=== PATIENT | female | born 2000 | race Caucasian/White ===

== ENCOUNTER 2023-03-05 21:32 | Outpatient (REF) | payer BC, OTHER, SELFPAY ==
[2023-03-13 10:09] LABS: Age Gdln ACOG Testing Note (.); IGP, rfx Aptima HPV ASCU Note (.)
== END 2023-03-05 21:33 | disposition home or self-care (01) ==
LOC: LAB 21:32
PROVIDERS: PCP Obstetrics & Gynecology; Visit Provider Obstetrics & Gynecology
DX: Z01.419 Encounter for gynecological examination (general) (routine) without abnormal findings (principal)
CPT/HCPCS: G0145

== ENCOUNTER 2024-03-25 20:11 | Outpatient (REF) | payer OTHER, BC, SELFPAY ==
[2024-03-31 17:09] LABS: Age Gdln ACOG Testing Note (.); IGP, rfx Aptima HPV ASCU Note (.)
== END 2024-03-25 20:12 | disposition home or self-care (01) ==
LOC: LAB 20:11
PROVIDERS: PCP Family Medicine; Visit Provider Obstetrics & Gynecology
DX: Z01.419 Encounter for gynecological examination (general) (routine) without abnormal findings (principal)
CPT/HCPCS: 88175

== ENCOUNTER 2024-12-01 12:01 | Outpatient (OUT) | payer BC, OTHER, SELFPAY ==
[2024-12-01 12:30] LABS: Basophils Absolute Auto 0.1 10^3/uL (0.0-0.1); Basophils Percent Auto 0.5 % (0.2-2.0); Eosinophils Absolute Auto 0.3 10^3/uL (0.0-0.7); Eosinophils Percent Auto 2.6 % (0.9-7.0); Hematocrit 42.8 % (36.0-48.0); Hemoglobin 14.8 g/dL (12.0-16.0); Immature Granulocytes Abs Auto 0.01 10^3/uL (0.00-0.03); Immature Granulocytes Pct Auto 0.1 % (0.0-0.5); Lymphocytes Absolute Auto 2.8 10^3/uL (1.2-3.8); Lymphocytes Percent Auto 29.5 % (20.5-60.0); Mean Corpuscular HGB Conc 34.6 g/dL (29.9-35.2); Mean Corpuscular Hemoglobin 29.6 pg (26.7-34.0); Mean Corpuscular Volume 85.6 fL (81.0-99.0); Monocytes Absolute Auto 0.6 10^3/uL (0.3-0.8); Monocytes Percent Auto 5.8 % (1.7-12.0); Neutrophils Absolute Auto 5.8 10^3/uL (1.4-6.5); Neutrophils Percent Auto 61.5 % (43.0-75.0); Platelet Count 260 10^3/uL (150-450); Red Cell Distribution Width 12.2 % (11.0-15.0); White Blood Count 9.5 10^3/uL (4.0-11.0)
[2024-12-01 13:07] LABS: Estimated Average Glucose 91 mg/dL; Glycohemoglobin A1C 4.8 % (4.5-6.2)
[2024-12-01 13:18] LABS: Thyroid Stimulating Hormone 2.644 uIU/mL (0.358-3.740)
[2024-12-01 13:30] LABS: HCG Quantitative <1 mIU/mL
[2024-12-01 13:38] LABS: Free T4 0.94 ng/dL (0.76-1.46)
[2024-12-02 04:07] LABS: FSH 4.3 mIU/mL (.)
[2024-12-04 03:07] LABS: Anti-Mullerian Hormone (AMH) 1.14 ng/mL (.)
[2024-12-07 17:08] LABS: DHEA, Serum 248 ng/dL (31-701)
== END 2024-12-01 12:02 | disposition home or self-care (01) ==
LOC: LAB 12:07
PROVIDERS: PCP Family Medicine; Visit Provider Obstetrics & Gynecology
DX: E28.2 Polycystic ovarian syndrome (principal); N93.9 Abnormal uterine and vaginal bleeding, unspecified; N80.9 Endometriosis, unspecified
CPT/HCPCS: 36415; 82397; 82626; 82627; 83001; 83002; 83036; 84439; 84443; 84702; 85025

== ENCOUNTER 2025-01-21 14:51 | Outpatient (OUT) | payer BC, OTHER, SELFPAY ==
[2025-01-21 15:22] LABS: Basophils Absolute Auto 0.1 10^3/uL (0.0-0.1); Basophils Percent Auto 0.4 % (0.2-2.0); Eosinophils Absolute Auto 0.2 10^3/uL (0.0-0.7); Eosinophils Percent Auto 1.4 % (0.9-7.0); Hematocrit 41.5 % (36.0-48.0); Hemoglobin 14.8 g/dL (12.0-16.0); Immature Granulocytes Abs Auto 0.02 10^3/uL (0.00-0.03); Immature Granulocytes Pct Auto 0.2 % (0.0-0.5); Lymphocytes Absolute Auto 2.8 10^3/uL (1.2-3.8); Lymphocytes Percent Auto 24.1 % (20.5-60.0); Mean Corpuscular HGB Conc 35.7 g/dL (29.9-35.2); Mean Corpuscular Hemoglobin 29.7 pg (26.7-34.0); Mean Corpuscular Volume 83.2 fL (81.0-99.0); Monocytes Absolute Auto 0.6 10^3/uL (0.3-0.8); Monocytes Percent Auto 5.3 % (1.7-12.0); Neutrophils Percent Auto 68.6 % (43.0-75.0); Platelet Count 267 10^3/uL (150-450); Red Blood Count 4.99 10^6/uL (4.20-5.40); White Blood Count 11.6 10^3/uL (4.0-11.0)
[2025-01-21 15:32] LABS: Estimated Average Glucose 91 mg/dL; Glycohemoglobin A1C 4.8 % (4.5-6.2)
[2025-01-21 15:34] LABS: Amphetamine Screen Urine NEGATIVE (NEGATIVE); Barbiturates Screen Urine NEGATIVE (NEGATIVE); Benzodiazepines Screen Urine NEGATIVE (NEGATIVE); Buprenorphine Screen Urine NEGATIVE (NEGATIVE); Cannabinoid Screen Urine NEGATIVE (NEGATIVE); Cocaine Screen Urine NEGATIVE (NEGATIVE); Methadone Screen Urine NEGATIVE (NEGATIVE); Methamphetamines Screen Urine NEGATIVE (NEGATIVE); Opiate Screen Urine NEGATIVE (NEGATIVE); Oxycodone Screen Urine NEGATIVE (NEGATIVE); Phencyclidine Screen Urine NEGATIVE (NEGATIVE); Tricyclic Antidepressant Urine NEGATIVE (NEGATIVE)
[2025-01-22 05:07] LABS: HIV Ab/p24 Ag Screen Non Reactive (Non Reactive)
[2025-01-22 06:08] LABS: HBsAg Screen Negative (Negative); HCV Ab Non Reactive (Non Reactive)
[2025-01-22 09:10] LABS: Rubella Antibodies, IgG 1.91 index (Immune >0.99)
[2025-01-22 12:08] LABS: Rapid Plasma Reagin, Quant Non Reactive titer (NonRea<1:1)
== END 2025-01-21 14:52 | disposition home or self-care (01) ==
PROVIDERS: PCP Family Medicine; Visit Provider Obstetrics & Gynecology
DX: Z34.01 Encounter for supervision of normal first pregnancy, first trimester (principal); N92.6 Irregular menstruation, unspecified
CPT/HCPCS: 36415; 80307; 83036; 85025; 86592; 86762; 86803; 86850; 86900; 86901; 87086; 87340; 87389

== ENCOUNTER 2025-02-11 08:03 | Outpatient (OUT) | payer BC, OTHER, SELFPAY ==
--- NOTE | 2025-02-11 08:06 | US_ITS ---
The [address] [address] Patient Name: MEREDITH TEMPLETON MRN: [id number] date: 2000 Sex: F Assigned Patient Location: US Current Patient Location: US Accession/Order Number: [id number] Exam Date: 02/11/2025 09:39 Report Date: 02/11/2025 09:43 At the request of: NIKUNJ CLARKE DO Procedure: US OB transvaginal ULTRASOUND OB TRANSVAGINAL CLINICAL DATA: Follow-up subchorionic hematoma COMPARISON: None Real-time ultrasound evaluation of the pelvis was performed utilizing a transvaginal approach. There is a gestational sac within the uterus containing a pole. The crown-rump length measurement of 6.0 cm correlates with an ultrasound age of 12 weeks 3 days +/- 1 week 1 day. The estimated date of delivery is August 23, 2025. Estimated date of delivery based on last menstrual period would be August 26, 2025. There is cardiac activity with heart rate of 183 bpm. There is a hypoechoic area along the inferior aspect of the gestational sac that may be the reported subchorionic hematoma. It currently measures 5 x 11 x 32 mm . No free fluid is noted. The ovaries were not imaged. US/US OB transvaginal IMPRESSION: SINGLE LIVE INTRAUTERINE GESTATION WITH ULTRASOUND AGE OF 12 WEEKS 3 DAYS. SMALL IMPLANTATION HEMORRHAGE, DESCRIBED. CORRELATION WITH PREVIOUS IMAGING IS SUGGESTED TO ASSESS FOR CHANGE. Impression dictated by: Misa Gillette M.D. 02/11/2025 9:43 AM Dictation Location: [place] [address] Electronically authenticated by: [id number] Y Date: 02/11/2025 09:43
== END 2025-02-11 08:04 | disposition home or self-care (01) ==
LOC: US 08:03
PROVIDERS: PCP Family Medicine; Visit Provider Obstetrics & Gynecology
DX: O41.8X10 Other specified disorders of amniotic fluid and membranes, first trimester, not applicable or unspecified (principal); O46.8X1 Other antepartum hemorrhage, first trimester; Z3A.12 12 weeks gestation of pregnancy
CPT/HCPCS: 76817

== ENCOUNTER 2025-03-18 11:17 | Outpatient (OUT) | payer BC, OTHER, SELFPAY | END 2025-03-18 11:18 | disposition home or self-care (01) | PROVIDERS: PCP Family Medicine; Visit Provider Physician Assistant | DX: Z34.92 Encounter for supervision of normal pregnancy, unspecified, second trimester (principal); Z3A.17 17 weeks gestation of pregnancy | CPT/HCPCS: 36415; 82105 ==

== ENCOUNTER 2025-04-15 14:42 | Outpatient (REF) | payer OTHER, SELFPAY ==
--- OUTSIDE RECORDS SUMMARY | 2025-04-08 08:00 | XMS_ITS | Encounter Summary ---
Author Organization [facility] Address [address] [place] [address] Care Team Providers Care Power Tong Operator Name Role Phone Michelle Pabon MD Primary Care Provider [phone] Encounter Details Date Type Department Care Team (Late Contact Info) Description 04/08/2025 8:00 AM EDT Ancillary Procedure [facility] [address] [place] [address] Social History Tobacco Use Types Packs/Day Years Used Date Smoking Tobacco: Never Alcohol Use Standard Drinks/Week Comments Never 0 (1 standard drink = 0.6 oz pur e alcohol) Estimated Date of Delivery Comme nts Yes 08/26/2025 Based on last me nstrual period of 11/19/2024 (Approximate) Sex and Gender Information Value Date Recorded Sex Assigned at Not on file Legal Sex Female 10:09 PM EDT Gender Identity Not on file Sexual Orientation Not on file documented as of this encounter Plan of Treatment Upcoming Encounters Date Type Department Care Team (Late Contact Info) Description 05/12/2025 8:30 AM EDT Routine [facility] [address] [place] [address] Patricia Roy NP [address] [place] [address] documented as of this encounter Procedures Procedure Name Priority Date/Time Associated Diagnosis Comments US OB 14+ WEEKS ANATOMY SCAN Routine 04/08/2025 9:16 AM EDT Screening, , for anatomic survey ([facility]) documented in this encounter Results * US OB 14+ weeks anatomy scan (04/08/2025 9:16 AM EDT) Anatomical Region Laterality Modality Body Ultrasound 04/08/2025 2:25 PM EDT Addenda Addendum by Miguel Thompson MD on 04/13/2025 12:59 PM EDT ADDENDUM #1 Current examination demonstrated an incomplete anatomical evaluation, recommend follow-up imaging to evaluate spine, profile and for three-vessel cord. TRANSCRIBED BY: ELECTRONICALLY SIGNED BY: Miguel Thompson MD Impressions 04/08/2025 2:53 PM EDT Single, live intrauterine , current sonographic age of 20 weeks and 3 days, with an estimated date of delivery of August 23, 2025. * Estimated Weight (g) by Percentile is based upon an accurate estimated age based on last menstrual period. TRANSCRIBED BY: ELECTRONICALLY SIGNED BY: Miguel Thompson MD Narrative 04/08/2025 2:53 PM EDT FINDINGS: A single, live intrauterine is present with normal cardiac rate of 165 beats per minute. Normal activity and amniotic fluid volume. Morphology is grossly normal. The placenta is anterior, Grade I, inferior aspect 5 cm from the closed cervical os (4.5 cm length). The current sonographic age is 20 weeks and 3 days, based on the following measurements: BPD 4.7 cm (20 weeks, 1 day) Head Circumference 17.8 cm (20 weeks, 2 days) Abdominal Circumference 15.6 cm (20 weeks, 5 days) Femur Length 3.3 cm (20 weeks, 3 days) Presentation Breech Placenta Anterior Grade I Weight (g) by Percentile 76.2 % * These measurements result in an estimated date of delivery of August 23, 2025. The current estimated weight is 361 grams (0 pounds, 13 ounces). Procedure Note Miguel Thompson MD - 04/08/2025 FINDINGS: A single, live intrauterine is present with normal cardiacrate of 165 beats per minute. Normal activity and amniotic fluidvolume. Morphology is grossly normal. The placenta is anterior, Grade I,inferior aspect 5 cm from the closed cervical os (4.5 cm length). Thecurrent sonographic age is 20 weeks and 3 days, based on the followingmeasurements: BPD 4.7 cm (20 weeks, 1 day) Head Circumference 17.8 cm (20 weeks, 2 days) Abdominal Circumference 15.6 cm (20 weeks, 5 days) Femur Length 3.3 cm (20 weeks, 3 days) Presentation Breech Placenta Anterior Grade I Weight (g) by Percentile 76.2 % * These measurements result in an estimated date of delivery of August. The current estimated weight is 361 grams (0 pounds, 13ounces). IMPRESSION: Single, live intrauterine , current sonographic age of 20 weeksand 3 days, with an estimated date of delivery of August 23, 2025. * Estimated Weight (g) by Percentile is based upon an accurateestimated age based on last menstrual period. TRANSCRIBED BY: ELECTRONICALLY SIGNED BY: Miguel Thompson MD us Sh[facility] MIX IMG OB US PROCEDURES Edited Resu lt - Final documented in this encounter Visit Diagnoses Not on filedocumented in this encounter Care Teams Power Tong Operator Relationship Specialty Start Date End Date Michelle Pabon MD [address] [place] [phone] PCP - General Family Medicine 03/25/24 documented as of this encounter
--- OUTSIDE RECORDS SUMMARY | 2025-04-15 10:10 | XMS_ITS | Encounter Summary ---
Author Organization [facility] Address [address] [place] [address] Care Team Providers Care Lens Marker Name Role Phone Michelle Pabon MD Primary Care Provider [phone] Reason for Visit * Reason Comments Routine Visit Encounter Details Date Type Department Care Team (Late st Contact Info) Description 04/15/2025 10:10 AM EDT Routine [facility] [place] [facility] [address] [place] [address] Abad Canchola DO [address] [facility] [address] [place] [phone] Second trimester ([facility]); 21 weeks gestation of ([facility]); Nausea and vomiting during ([facility]); Vaginal discharge during , antepartum ([facility]) Social History Tobacco Use Types Packs/Day Years [...] on file documented as of this encounter Last Filed Vital Signs Vital Sign Reading Time Taken Comments Blood Pressure 116/72 04/15/2025 10:35 AM EDT Pulse - - Temperature - - Respiratory Rate - - Oxygen Saturation - - Inhaled Oxygen Concentration - - Weight 93.4 kg (206 lb) 04/15/2025 10:35 AM EDT Height - - Body Mass Index 33.25 09/24/2019 12:00 PM EST documented in this encounter Plan of Treatment Upcoming Encounters Date Type Department Care Team ([facility] st Contact Info) Description 05/12/2025 8:30 AM EDT Routine [facility] [address] [facility] [place] [address] Patricia Roy NP [address] [facility] [place] [phone] Scheduled Orders Name Type Priority Associated Diagnoses Order Schedule Pap Smear Pathology and Cytology Routine Second trimester ([facility]) 21 weeks gestation of ([facility]) Ordered: 04/15/2025 SURESWAB(R) ADVANCED VAGINITIS PLUS, TMA Pathology and Cytology Routine Vaginal discharge during , antepartum ([facility]) Ordered: 04/15/2025 CHLAMYDIA TRACHOMATIS (GENITO/STI) Lab Routine Vaginal discharge during , antepartum ([facility]) Ordered: 04/15/2025 Neisseria gonorrhea DNA probe, direct Lab Routine Vaginal discharge during , antepartum ([facility]) Ordered: 04/15/2025 documented as of this encounter Visit Diagnoses Diagnosis Second trimester ([facility]) state, incidental 21 weeks gestation of ([facility]) Nausea and vomiting during ([facility]) Vaginal discharge during , antepartum ([facility]) documented in this encounter Care Teams Lens Marker Relationship Specialty Start Date End Date Michelle Pabon MD [address] [facility] [place] [phone] PCP - General Family Medicine 03/25/24 documented as of this encounter
--- OUTSIDE RECORDS SUMMARY | 2025-04-15 14:46 | XMS_ITS | Encounter Summary ---
Author Organization [facility] Address [address] [place] [address] Care Team Providers Care Pit And Auxiliaries Supervisor Name Role Phone Michelle Pabon MD Primary Care Provider [phone] Encounter Details Date Type Department Care Team (Late Contact Info) Description 03/22/2025 Results Follow-Up [facility] [place] [facility] [address] [facility] [place] [address] Edda Whitney LPN [address] [facility] [place] [phone] RECURRENT VAGINITIS (HTRX) Social History Tobacco Use Types Packs/Day Years [...] on file documented as of this encounter Miscellaneous Notes * Result Encounter Note - Edda Whitney LPN - 03/22/2025 9:40 AM EDT Pt already notified and treated documented in this encounter Plan of Treatment Upcoming Encounters Date Type Department Care Team (Late st Contact Info) Description 05/12/2025 8:30 AM EDT Routine [facility] [address] [place] [address] Patricia Roy NP [address] [place] [address] documented as of this encounter Visit Diagnoses Not on filedocumented in this encounter Care Teams Pit And Auxiliaries Supervisor Relationship Specialty Start Date End Date Michelle Pabon MD [address] [place] [address] [place] [phone] PCP - General Family Medicine 03/25/24 documented as of this encounter
--- OUTSIDE RECORDS SUMMARY | 2025-04-15 14:46 | XMS_ITS | Encounter Summary ---
Author Organization [facility] Address [address] [place] [address] Care Team Providers Care Sharepoint Trainer Name Role Phone Michelle Pabon MD Primary Care Provider [phone] Encounter Details Date Type Department Care Team (Late Contact Info) Description 04/01/2024 Orders Only [facility] [address] [facility] [place] [address] Cris Gross MA [address] [place] [address] Social History Tobacco Use Types Packs/Day Years Used Date Smoking Tobacco: Never Alcohol Use Standard Drinks/Week Comments Never 0 (1 standard drink = 0.6 oz pur e alcohol) Comments No Sex and Gender Information Value Date Recorded Sex Assigned at Not on file Legal Sex Female 10:09 PM EDT Gender Identity Not on file Sexual Orientation Not on file documented as of this encounter Plan of Treatment Upcoming Encounters Date Type Department Care Team (Late st Contact Info) Description 05/12/2025 8:30 AM EDT Routine [facility] [address] [facility] [place] [address] Patricia Roy, NELLY [address] [place] [address] documented as of this encounter Procedures Procedure Name Priority Date/Time Associated Diagnosis Comments PAP SMEAR Routine 03/25/2024 12:00 AM EDT documented in this encounter Results * Pap Smear (03/25/2024 12:00 AM EDT) Swab Cervical swab / Unknown us Abad Canchola DO LAB CYTOLOGY ORDERABLES Final Re sult EXTERNAL LAB documented in this encounter Visit Diagnoses Not on filedocumented in this encounter Care Teams Sharepoint Trainer Relationship Specialty Start Date End Date Michelle Pabon MD [address] [place] [phone] PCP - General Family Medicine 03/25/24 documented as of this encounter
--- OUTSIDE RECORDS SUMMARY | 2025-04-15 14:46 | XMS_ITS | Encounter Summary ---
Author Organization [facility] Address [address] [place] [address] Care Team Providers Care Donor Technician Name Role Phone Michelle Pabon MD Primary Care Provider [phone] Encounter Details Date Type Department Care Team (Late st Contact Info) Description 04/15/2025 Bamboo flowsheet NOMFatimah CHIN[facility]A [address] [place] [address] Abad Canchola, [address] [facility] [address] [place], [facility] Social History Tobacco Use Types Packs/Day Years [...] Info) Description 05/12/2025 8:30 AM EDT Routine ENRIQUE CHINCHILLA [address] [place] [address] Patricia Roy, HEBREW TEACHER [address] [facility] [place] [address] documented as of this encounter Visit Diagnoses Not on filedocumented in this encounter Care Teams Donor Technician Relationship Specialty Start Date End Date Michelle Pabon MD [facility] [place] [phone] PCP - General Family Medicine 03/25/24 documented as of this encounter
--- OUTSIDE RECORDS SUMMARY | 2025-04-15 14:46 | XMS_ITS | Encounter Summary ---
Author Organization [facility] Address [address] [place] [address] Care Team Providers Care Mortgage Counselor Name Role Phone Michelle Pabon MD Primary Care Provider [phone] Encounter Details Date Type Department Care Team (Late Contact Info) Description 01/21/2025 Abstract ENRIQUE CHINCHILLA [address] [place] [address] Abad Canchola DO [address] [facility] [address] [place], [id number] Social History Tobacco Use Types Packs/Day Years [...] 8:30 AM EDT Routine ENRIQUE CHINCHILLA [address] [place] [address] Patricia Roy, NELLY [address] [facility] [place] [address] documented as of this encounter Visit Diagnoses Not on filedocumented in this encounter Care Teams Mortgage Counselor Relationship Specialty Start Date End Date Michelle Pabon MD [address] [place] [phone] PCP - General Family Medicine 03/25/24 documented as of this encounter
--- OUTSIDE RECORDS SUMMARY | 2025-04-15 14:46 | XMS_ITS | Encounter Summary ---
Author Organization [facility] Address [address] [place] [address] Care Team Providers Care Land Development Manager Name Role Phone Michelle Pabon MD Primary Care Provider [phone] Encounter Details Date Type Department Care Team ([facility] Contact Info) Description 10/21/2024 Abstract ENRIQUE CHINCHILLA [address] [facility] [place] [address] Abad Canchola DO [address] [facility] [address] [place], [place] [address] Social History Tobacco Use Types Packs/Day Years [...] 8:30 AM EDT Routine [facility] [address] [place] [address] Patricia Roy NP [address] [place] [phone] documented as of this encounter Visit Diagnoses Not on filedocumented in this encounter Care Teams Land Development Manager Relationship Specialty Start Date End Date Michelle Pabon MD [address] [place] [phone] PCP - General Family Medicine 03/25/24 documented as of this encounter
--- OUTSIDE RECORDS SUMMARY | 2025-04-15 14:46 | XMS_ITS | Clinical Summary ---
Author Organization 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 Take before meals. Take 1 tablet by mouth 30 minutes prior to meals 3 times daily as needed for nausea. 90 tablet 1 04/15/20 25 2024 Active metoclopramide (Reglan) 10 MG tabletIndications :Currently in first trimester with unknown gestational age ([facility]),Nausea and vomiting during ([facility]) Take 1 tablet (10 mg) by mouth in the morning and 1 tablet (10 mg) at noon and 1 tablet (10 mg) in the evening. Take before meals. Take 1 tablet by mouth 30 minutes prior to meals 3 times daily as needed for nausea. 90 tablet 1 01/14/20 25 2024 Discontinued metroNIDAZOLE (Flagyl) 500 MG tabletIndications :BV (bacterial vaginosis) Take 1 tablet (500 mg) by mouth in the morning and 1 tablet (500 mg) before bedtime. Do all this for 7 days. Do not drink alcohol while taking this medication. 14 tablet 03/19/20 25 2024 terconazole (Terazol 7) 0.4 % vaginal creamIndications: Yeast infection Insert 1 applicator into the vagina at bedtime for 7 days 45 g 03/19/20 25 2024 Encounters Date Type Department Care Team Description 04/15/2025 10:10 AM [place] [address] Nikunj Canchola, DO Second trimester ([facility]); 21 weeks gestation of ([facility]); Nausea and vomiting during ([facility]); Vaginal discharge during , antepartum ([facility]) 04/15/2025 [place] [address] Nikunj Canchola DO 04/08/2025 8:00 AM EDT [place]illary [place] [address] 03/22/2025 [place] [address] Edda Whitney LPN RECURRENT VAGINITIS (HTRX) 03/19/2025 [place] [address] Nighat Moyer MA 03/19/2025 [place] [address] Nighat Moyer MA 03/18/2025 10:30 AM [place] [address] Shagufta Perkins PA 17 weeks gestation of ([facility]); Second trimester ([facility]); Subchorionic hematoma in first trimester, single or unspecified fetus ([facility]); Screening, , for anatomic survey ([facility]); Exposure to STD; Vaginal discharge 03/18/2025 10:00 AM EDT Ancillary Procedure [facility] [address] [place] [address] Subchorionic hematoma in first trimester, single or unspecified fetus ([facility]) 03/18/2025 Clinisync Result Encounter NOMS External Department Unsolicited Shagufta Perkins PA 03/18/2025 External Result Encounter NOMS External Department Unsolicited Shagufta Perkins PA 03/17/2025 Telephone [place] [address] Nighat Moyer [place] 03/11/2025 Travel 02/18/2025 8:40 AM EDT Routine [facility] [address] [place] [address] Nikunj Canchola, Second trimester ([facility]); 13 weeks gestation of ([facility]) 02/18/2025 Bamboo flowsheet [facility] [address] [place] [address] Nikunj Canchola, 02/15/2025 Telephone [facility] [address] [place] [address] Nighat Moyer [place] 02/11/2025 Clinisync Result Encounter NOMS External Department Unsolicited Nikunj Canchola, 01/26/2025 Results Follow-Up [place] [address] Edda Whitney LPN OB transvaginal 01/26/2025 Telephone [facility] [address] [place] [address] Edda Whitney LPN 01/21/2025 2:00 PM EDT Initial [facility] [address] [facility] [address] [place]: 9w0d 01/21/2025 1:30 PM EDT Ancillary Procedure [facility] [place] [facility] [address] [facility] [address] Missed menses; Positive urine test ([facility]) 01/21/2025 Clinisync Result Encounter NOMS External Department Unsolicited Nikunj Canchola, DO 01/21/2025 Abstract [facility] [address] [facility] [address] Nikunj Canchola, DO 01/18/2025 Travel 01/14/2025 Travel 01/13/2025 9:00 AM EDT Initial [facility] [place] [address] [place] [address] Patricia Roy, NELLY GA: 7w6d 01/13/2025 Bamboo flowsheet [facility] [place] [address] [place] [address] Patricia Roy, NELLY from Last 3 Months Family History Medical History Relation Name Comments Hyperlipidemia Father Hypertension Father Relation Name Status Comments Father Alive Mother Alive Social History Tobacco Use Types Packs/Day Years Used Date Smoking Tobacco: Never Tobacco Cessation:Counseling Given: Not Answered Alcohol Use Standard Drinks/Week Comments Never 0 (1 standard drink = 0.6 oz pur e alcohol) Estimated Date of Delivery Comme nts Yes 08/26/2025 Based on last me nstrual period of 11/19/2024 (Approximate) Sex and Gender Information Value Date Recorded Sex Assigned at Not on file Legal Sex Female 10:09 PM EDT Gender Identity Not on file Sexual Orientation Not on file Last Filed Vital Signs Vital Sign Reading Time Taken Comments Blood Pressure 116/72 04/15/2025 10:35 AM EDT Pulse - - Temperature - - Respiratory Rate - - Oxygen Saturation - - Inhaled Oxygen Concentration - - Weight 93.4 kg (206 lb) 04/15/2025 10:35 AM EDT Height 167.6 cm (5' 6 ) 09/24/2019 12:00 PM EST Body Mass Index 33.25 09/24/2019 12:00 PM EST Plan of Treatment Upcoming Encounters Date Type Department Care Team (Late st Contact Info) Description 05/12/2025 8:30 AM EDT Routine [facility] [address] [facility] [place] [address] Patricia Roy, TURNAROUND ENGINEER [address] [place] [address] Health Maintenance Due Date Last Done Comments Influenza Vaccine (#1) 2025 05/14/2022, 2019 Procedures Procedure Name Priority Date/Time Associated Diagnosis Comments US OB 14+ WEEKS ANATOMY SCAN Routine 04/08/2025 9:16 AM EDT Screening, , for anatomic survey ([facility]) AFP, SERUM, OPEN SPINA BIFIDA Routine 03/18/2025 11:33 AM EDT RECURRENT VAGINITIS (HTRX) Routine 03/18/2025 11:18 AM EDT POCT URINALYSIS DIPSTICK Routine 03/18/2025 10:44 AM EDT 17 weeks gestation of ([facility]) Second trimester ([facility]) US OB LIMITED 1+ FETUSES Routine 03/18/2025 10:24 AM EDT Subchorionic hematoma in first trimester, single or unspecified fetus ([facility]) POCT URINALYSIS DIPSTICK Routine 02/18/2025 9:02 AM EDT Second trimester ([facility]) US OB TRANSVAGINAL 02/11/2025 9: 43 AM EDT HBSAG SCREEN Routine 01/21/2025 3:08 PM EDT RAPID PLASMA REAGIN, QUANT Routine 01/21/2025 3:08 PM EDT HCV ANTIBODY RFX TO QUANT PCR Routine 01/21/2025 3:08 PM EDT ALL RUBELLA IGG AB Routine 01/21/2025 3: 08 PM EDT HIV AB/P24 AG WITH REFLEX Routine 01/21/2025 3:08 PM EDT ALL CBC WITH AUTO DIFF Routine 01/21/2025 3:08 PM EDT ALL TYPE AND SCREEN Routine 01/21/2025 3 :08 PM EDT MLR HEMOGLOBIN A1C Routine 01/21/2025 3: 08 PM EDT [facility] DRUG SCREEN RAPID (URINE) Routine 01/21/2025 3:00 PM EDT POCT URINALYSIS DIPSTICK Routine 01/21/2025 2:38 PM EDT Missed menses POCT , URINE Routine 01/21/2025 2:16 PM EDT Missed menses US OB TRANSVAGINAL Routine 01/21/2025 1: 55 PM EDT Missed menses Positive urine test ([facility]) POCT URINALYSIS DIPSTICK Routine 01/13/2025 9:21 AM EDT Currently in first trimester with unknown gestational age ([facility]) from Last 3 Months Results * US OB 14+ weeks anatomy [...] US PROCEDURES Edited Resu lt - Final * AFP, SERUM, OPEN SPINA BIFIDA (03/18/2025 11:33 AM EDT) RESULTS Report . [facility] TEST RESULTS: *Screen Negative* . [facility] GEST. AGE ON COLLECTION DATE 17.0 . weeks [facility] GESTAT. AGE BASED ON LMP . [facility] Comment: Recalculations are not recommended when gestational dating by LMP and ultrasound are within 10 days. [age]OL [age] [facility] RACE . [facility] WEIGHT 206 . lbs [facility] INSULIN DEP DIABETES No . [facility] MULTIPLE GESTATION No . H AFP VALUE 34.4 . ng/mL [facility] AFP MOM 1.10 . [facility] OSBR RISK 1 IN 8933 . [facility] INTERPRETATION Comment . [facility] Comment: Interpretation: Screen Negative This result is screen negative for OSB. The AFP MoM calculated is based on the gestational age provided. MS-AFP can identify up to 80% of open neural tube defects. Closed neural tube defects and some open defects may not be detected by this test. This test does not screen for Down Syndrome or Trisomy 18. If screening for Down Syndrome or Trisomy 18 is desired, contact [facility] to discuss available options. The [employer] recommends amniocentesis be offered to women age 35 and older. COMMENT: Comment . [facility] Comment: Giselle Merida, Ph.D., [facility] Director References: Available Upon Request. Multiples Of Median Cutoffs For AFP Elevations Sellers 2.5 Black 2.8 IDD 2.0 Twins 4.5 Abbreviation Definitions IDD - Insulin Dep Diabetes OSBR - Open Spina Bifida Risk For further inquiries contact [email or web address] [facility] at [phone]. This test was developed and its performance characteristics determined by [employer]. It has not been cleared or approved by the Food and Drug Administration. Performed at: - [facility] [address] [facility], [place], [place] [id number] Talent Management Manager: Nirmal Means [facility], Phone: [phone] 03/18/2025 11:3 3 AM EDT 03/18/2025 11:48 AM EDT Narrative CLIN[facility] - 03/20/2025 1:07 AM EDT N N LMP [id number] [phone] N 1 Y 206 N N N N N White/ Shagufta MIX LAB BLOOD ORDERABLES Final [facility]ul t [facility] * (ABNORMAL) RECURRENT VAGINITIS (HTRX) (03/18/2025 11:18 AM EDT) ATOPOBIUM VAGINAE 0 19.961 - 24.689 ppm 03/19/2025 7:40 AM EDT [facility] ATOPOBIUM VAGINAE Not Detected 19.961 - 24.689 ppm 03/19/2025 7:40 AM EDT [facility] BVAB 2,3 (BACTERIAL VAGINOSIS ASSOCIATED BACTERIA 2, 3); MOBILUNCUS SPP 0 19.961 - 24.689 ppm 03/19/2025 7:40 AM EDT [facility] BVAB 2,3 (BACTERIAL VAGINOSIS ASSOCIATED BACTERIA 2, 3); MOBILUNCUS SPP Not Detected 19.961 - 24.689 ppm 03/19/2025 7:40 AM EDT [facility] ROSALBA ALBICANS, PARAPSILOSIS, TROPICALIS 26.725(A) 23.000 - 30.347 ppm 03/19/2025 7:40 AM EDT [facility] ROSALBA ALBICANS, PARAPSILOSIS, TROPICALIS Detected(A) 23.000 - 30.347 ppm 03/19/2025 7:40 AM EDT [facility] ROSALBA GLABRATA 0 23.000 - 31.618 ppm 03/19/2025 7:40 AM EDT [facility] ROSALBA GLABRATA Not Detected 23.000 - 31.618 ppm 03/19/2025 7:40 AM EDT [facility] ROSALBA KRUSEI 0 23.000 - 30.873 ppm 03/19/2025 7:40 AM EDT [facility] ROSALBA KRUSEI Not Detected 23.000 - 30.873 ppm 03/19/2025 7:40 AM EDT [facility] CHLAMYDIA TRACHOMATIS 0 23.000 - 31.586 ppm 03/19/2025 7:40 AM EDT [facility] CHLAMYDIA TRACHOMATIS Not Detected 23.000 - 31.586 ppm 03/19/2025 7:40 AM EDT [facility] GARDNERELLA VAGINALIS 17.732(A) 19.961 - 24.689 ppm 03/19/2025 7:40 AM EDT [facility] GARDNERELLA VAGINALIS Detected(A) 19.961 - 24.689 ppm 03/19/2025 7:40 AM EDT [facility] MEGASPHAERA (TYPES 1, 2) 0 19.961 - 24.689 ppm 03/19/2025 7:40 AM EDT [facility] MEGASPHAERA (TYPES 1, 2) Not Detected 19.961 - 24.689 ppm 03/19/2025 7:40 AM EDT [facility] NEISSERIA GONORRHOEAE 0 23.000 - 32.587 ppm 03/19/2025 7:40 AM EDT [facility] NEISSERIA GONORRHOEAE Not Detected 23.000 - 32.587 ppm 03/19/2025 7:40 AM EDT [facility] TRICHOMONAS VAGINALIS 0 23.000 - 31.995 ppm 03/19/2025 7:40 AM EDT [facility] TRICHOMONAS VAGINALIS Not Detected 23.000 - 31.995 ppm 03/19/2025 7:40 AM EDT [facility] MYCOPLASMA GENITALIUM 0 19.961 - 24.689 ppm 03/19/2025 7:40 AM EDT [facility] MYCOPLASMA GENITALIUM Not Detected 19.961 - 24.689 ppm 03/19/2025 7:40 AM EDT [facility] Tissue 03/18/2025 11:1 8 AM EDT 03/19/2025 1:53 AM EDT us Shagufta MIX LAB BLOOD ORDERABLES Final Resul t [facility] [address] [address] * (ABNORMAL) POCT urinalysis dipstick manually resulted (03/18/2025 10:44 AM EDT) Only the most recent of4 resultswithin the time period is included. Color, UA Yellow Clarity, UA Clear Glucose, UA Negative Negative - 2000(110) ++++ mg/dL Bilirubin, UA Negative Negative - 4(70) +++ mg/dL Ketones, UA Negative Negative - 160(16) ++++ mg/dL Spec Grav, UA 1.020 1 - 1.03 Blood, UA Negative Negative - 50 Randall/mcL pH, UA 7.0 5 - 9 Protein, UA Negative Negative - 2000(20) ++++ mg/dL Urobilinogen, UA 1.0 0.2 - 12 mg/dL Leukocytes, UA Positive Negative - 500+++ Johnson/mcL Comment:3+ Nitrite, UA Negative Negative - Positive Urine 03/18/2025 10:4 4 AM EDT us Shagufta MIX POINT OF CARE TEST ENTER/EDIT OR DERABLES Final Result * US OB limited 1+ fetuses (03/18/2025 10:24 AM EDT) Anatomical Region Laterality Modality Body Ultrasound 03/18/2025 2:44 PM EDT Impressions 03/19/2025 7:29 AM EDT Single viable intrauterine , no subchronic hemorrhage. TRANSCRIBED BY: ELECTRONICALLY SIGNED BY: Miguel Thompson MD Narrative 03/19/2025 7:29 AM EDT FINDINGS: Cephalic presentation. Anterior placenta. Heart rate 159 bpm. single viable intrauterine versus , cephalic presentation, anterior placenta, heart rate 159 bpm. Normal cardiac activity. No subchorionic hemorrhage. Procedure Note Miguel Thompson MD - 03/19/2025 FINDINGS: Cephalic presentation. Anterior placenta. Heart rate 159 bpm. singleviable intrauterine versus , cephalic presentation, anteriorplacenta, heart rate 159 bpm. Normal cardiac activity. No subchorionichemorrhage. IMPRESSION: Single viable intrauterine , no subchronic hemorrhage. TRANSCRIBED BY: ELECTRONICALLY SIGNED BY: Miguel Thompson MD us Nikunj Canchola DO IMG OB US PROCEDURES Final Resul t * US OB TRANSVAGINAL (02/11/2025 9:43 AM EDT) Anatomical Region Laterality Modality Other 02/11/2025 9:43 AM EDT Narrative 02/11/2025 9:[place] [address] Ultrasound Report Signed Patient: YENIFER TEMPLETON MR#: [id number] : 2000 Acct:[id number] Age/Sex: 24 / F ADM Date: 02/11/25 Loc: US Attending Dr: Nikunj Canchola D.O. Ordering Physician: Nikunj Canchola D.O. Date of Service: 02/11/25 Procedure(s): US OB transvaginal Accession Number(s): [id number] cc: Michelle Pabon M.D.; Nikunj Canchola D.O. [place] [address] Patient Name: YENIFER TEMPLETON MRN: [id number] date: 2000 Sex: F Assigned Patient Location: US Current Patient Location: US Accession/Order Number: [id number] Exam Date: 02/11/2025 09:39 Report Date: 02/11/2025 09:43 At the request of: NIKUNJ CANCHOLA DO Procedure: US OB transvaginal ULTRASOUND OB TRANSVAGINAL CLINICAL DATA: Follow-up subchorionic hematoma COMPARISON: None Real-time ultrasound evaluation of the pelvis was performed utilizing a transvaginal approach. There is a gestational sac within the uterus containing a pole. The crown-rump length measurement of 6.0 cm correlates with an ultrasound age of 12 weeks 3 days +/- 1 week 1 day. The estimated date of delivery is August 23, 2025. Estimated date of delivery based on last menstrual period would be August 26, 2025. There is cardiac activity with heart rate of 183 bpm. There is a hypoechoic area along the inferior aspect of the gestational sac that may be the reported subchorionic hematoma. It currently measures 5 x 11 x 32 mm . No free fluid is noted. The ovaries were not imaged. US/US OB transvaginal IMPRESSION: SINGLE LIVE INTRAUTERINE GESTATION WITH ULTRASOUND AGE OF 12 WEEKS 3 DAYS. SMALL IMPLANTATION HEMORRHAGE, DESCRIBED. CORRELATION WITH PREVIOUS IMAGING IS SUGGESTED TO ASSESS FOR CHANGE. Impression dictated by: Misa Gillette M.D. 02/11/2025 9:43 AM Dictation Location: [place] [address] Electronically authenticated by: [id number] Y Date: 02/11/2025 09:43 Dictated By: Misa Gillette M.D. Signed By: 02/11/2546 DD/ TD/TT: Coagulating Operator: Procedure Note Radiology, Radiologist, - 02/11/2025 [place] [address] Ultrasound Report Signed Patient: YENIFER TEMPLETON [facility]#: [id number] : 2000Acct:[id number] Age/Sex: 24 / FADM Date: 02/11/25 Loc: US Attending Dr: Nikunj Canchola D.O. Ordering Physician: Nikunj Canchola D.O. Date of Service: 02/11/25 Procedure(s): US OB transvaginal Accession Number(s): [id number] cc: Michelle Pabon M.D.; Nikunj Canchola D.O. [address] [address] Patient Name: YENIFER TEMPLETON MRN: [id number] date: 2000 Sex: F Assigned Patient Location: US Current Patient Location: US Accession/Order Number: [id number] Exam Date: 02/11/2025 09:39 Report Date: 02/11/2025 09:43 At the request of: NIKUNJ CANCHOLA DO Procedure: US OB transvaginal ULTRASOUND OB TRANSVAGINAL CLINICAL DATA: Follow-up subchorionic hematoma COMPARISON: None Real-time ultrasound evaluation of the pelvis was performed utilizing a transvaginal approach. There is a gestational sac within the uterus containing a pole. The crown-rump length measurement of 6.0 cm correlates with an ultrasound age of 12 weeks 3 days +/- 1 week 1 day.The estimated date of delivery is August 23, 2025. Estimated date ofdelivery based on last menstrual period would be August 26, 2025. There is cardiac activity with heart rate of 183 bpm. There is a hypoechoic areaalong the inferior aspect of the gestational sac that may be the reported subchorionic hematoma. It currently measures 5 x 11 x 32 mm . No freefluid is noted. The ovaries were not imaged. US/US OB transvaginal IMPRESSION: SINGLE LIVE INTRAUTERINE GESTATION WITH ULTRASOUND AGE OF 12 WEEKS 3 DAYS. SMALL IMPLANTATION HEMORRHAGE, DESCRIBED. CORRELATION WITH PREVIOUS IMAGING IS SUGGESTED TO ASSESS FOR CHANGE. Impression dictated by: Misa Gillette M.D. 02/11/2025 9:43 AM Dictation Location: [place] [address] Electronically authenticated by: [id number] Y Date: 9:43 Dictated By: iMsa Gillette M.D. Signed By:02/11/2546 DD/ 2 TD/TT: Coagulating Operator: Nikunj Canchola DO [facility] IMAGING Final Result * HBSAG SCREEN (01/21/2025 3:08 PM EDT) [facility] HBSAG SCREEN Negative Negative [facility] Comment: Performed at: [address] [id number] Talent Management Manager: Mark Starr PhD, Phone: [phone] 01/21/2025 3:08 PM EDT 01/21/2025 3:12 PM EDT Narrative [facility]IN[facility] - 01/22/2025 12:08 PM EDT Nikunj Jesika DO LAB BLOOD ORDERABLES Final Resul t Performing Organization Address [facility] Co de Phone Number [facility] * RAPID PLASMA REAGIN, QUANT (01/21/2025 3:08 PM EDT) [facility] RAPID PLASMA REAGIN, QUANT Non Reactive NonRea<1: 1 titer [facility] Comment: Please Note: This test does not meet current guidelines for screening and diagnosis of syphilis. This test is intended for following treatment response in patients being treated for syphilis infection. To screen for syphilis infection, a reflex cascade that includes both RPR and a treponema-specific assay should be utilized, such as Treponema pallidum (Syphilis) Screening [place] (318225) or Rapid Plasma Reagin (RPR) Test With Reflex to Quantitative RPR and Confirmatory Treponema pallidum Antibodies (393919). Performed at: [address] [id number] Talent Management Manager: Mark Starr PhD, Phone: [phone] 01/21/2025 3:08 PM EDT 01/21/2025 3:12 PM EDT Narrative [facility] - 01/22/2025 12:08 PM EDT [facility] LAB BLOOD ORDERABLES Final Resul t Performing Organization Address City/[facility]/ZIP Co de Phone Number [facility] * HIV AB/P24 AG WITH REFLEX (01/21/2025 3:08 PM EDT) [facility] HIV AB/P24 AG SCREEN Non Reactive Non Reactive [facility] Comment: HIV-1/HIV-2 antibodies and HIV-1 p24 antigen were NOT detected. There is no laboratory evidence of HIV infection. HIV Negative Performed at: [address] [id number] Talent Management Manager: Mark Starr PhD, Phone: [phone] 01/21/2025 3:08 PM EDT 01/21/2025 3:12 PM EDT [facility]ative [facility] - 01/22/2025 5:07 AM EDT [facility] DO LAB BLOOD ORDERABLES Final Resul t Performing Organization Address [facility] Co de Phone Number [facility] * HCV ANTIBODY RFX TO QUANT PCR (01/21/2025 3:08 PM EDT) [facility] HCV AB Non Reactive Non Reactive [facility] INTERPRETATION: Comment . [facility] Comment: Not infected with HCV unless early or acute infection is suspected (which may be delayed in an immunocompromised individual), or other evidence exists to indicate HCV infection. Performed at: [address] [id number] Talent Management Manager: Mark Starr PhD, Phone: [phone] 01/21/2025 3:08 PM EDT 01/21/2025 3:12 PM EDT [facility]ative [facility] - 01/22/2025 9:10 AM EDT [facility] DO LAB BLOOD ORDERABLES Final Resul t Performing Organization Address City/[facility]/ZIP Co de Phone Number [facility] * MLR HEMOGLOBIN A1C (01/21/2025 3:08 PM EDT) [facility] GLYCOHEMOGLOBIN A1C 4.8 4.5 - 6.2 % [facility] Comment: ADA RECOMMENDED LIMIT 4.0 - 6.0 ADA THERAPEUTIC TARGET < 7.0 ACTION SUGGESTED > 7.0 ESTIMATED AVERAGE GLUCOSE 91 mg/dL [facility] 01/21/2025 3:08 PM EDT 01/21/2025 3:12 PM EDT Narrative [facility] - 01/21/2025 3:33 PM EDT Nikunj Jesika DO CL[facility] Final Result Performing Organization Address [facility]/ZIP Co de Phone Number [facility] * ALL TYPE AND SCREEN (01/21/2025 3:08 PM EDT) Pathologist [facility] BLOOD TYPE O Positive [facility] ANTIBODY SCREEN NEGATIVE [facility] 01/21/2025 3:08 PM EDT 01/21/2025 3:12 PM EDT Narrative [facility] - 01/21/2025 4:00 PM EDT [facility] [place] , Nikunj Jesika DO CL[facility] Final Result Performing Organization Address [facility] Co de Phone Number [facility] * ALL RUBELLA IGG AB (01/21/2025 3:08 PM EDT) Pathologist [facility] RUBELLA ANTIBODIES, IGG 1.91 Immune >0.99 index [facility] Comment: Non-immune <0.90 Equivocal 0.90 - 0.99 Immune >0.99 Performed at: [address] [id number] Talent Management Manager: Mark Starr PhD, Phone: [phone] 01/21/2025 3:08 PM EDT 01/21/2025 3:12 PM EDT Narrative CLINISYNC - 01/22/2025 9:10 AM EDT Nikunj Jesika DO CLINISYNC Final Result Performing Organization Address City/[facility]/ZIP Co de Phone Number [facility] * (ABNORMAL) ALL CBC WITH AUTO DIFF (01/21/2025 3:08 PM EDT) Pathologist [facility] WBC 11.6(H) 4.0 - 11.0 10 3/uL [facility] RBC 4.99 4.20 - 5.40 10 6/uL [facility] HGB 14.8 12.0 - 16.0 g/dL [facility] HCT 41.5 36.0 - 48.0 % [facility] MCV 83.2 81.0 - 99.0 fL [facility]H [facility] MCH 29.7 26.7 - 34.0 pg TBH [facility] MCHC 35.7(H) 29.9 - 35.2 g/dL [facility] RDW 12.0 11.0 - 15.0 % [facility] PLT 267 150 - 450 10 3/uL TB[facility] MPV 10.0 9.5 - 13.5 fL [facility] NEUTROPHILS PERCENT AUTO 68.6 43.0 - 75.0 % [facility] LYMPHOCYTES PERCENT AUTO 24.1 20.5 - 60.0 % [facility] MONOCYTES PERCENT AUTO 5.3 1.7 - 12.0 % [facility] EO % 1.4 0.9 - 7.0 % [facility] BASOPHILS PERCENT AUTO 0.4 0.2 - 2.0 % [facility] IMMATURE GRANULOCYTES PCT AUTO 0.2 0.0 - 0.5 % [facility] NEUTROPHILS ABSOLUTE AUTO 8.0(H) 1.4 - 6.5 10 3/uL [facility] LYMPHOCYTES ABSOLUTE AUTO 2.8 1.2 - 3.8 10 3/uL [facility] MONOCYTES ABSOLUTE AUTO 0.6 0.3 - 0.8 10 3/uL [facility] EO # 0.2 0.0 - 0.7 10 3/uL [facility] BASOPHILS ABSOLUTE AUTO 0.1 0.0 - 0.1 10 3/uL [facility] IMMATURE GRANULOCYTES ABS AUTO 0.02 0.00 - 0.03 10 3/uL [facility] 01/21/2025 3:08 PM EDT 01/21/2025 3:12 PM EDT Narrative CLINISYNC - 01/21/2025 3:39 PM EDT us Nikunj Canchola DO CLINISYNC Final Result CLINISYNC [facility] * [facility] DRUG SCREEN RAPID (URINE) (01/21/2025 3:00 PM EDT) [facility] CANNABINOID SCREEN URINE NEGATIVE NEGATIVE [facility] PHENCYCLIDINE SCREEN URINE NEGATIVE NEGATIVE [facility] COCAINE SCREEN URINE NEGATIVE NEGATIVE TB[facility] METHAMPHETAMINES SCREEN URINE NEGATIVE NEGATIVE TBH OPIATE SCREEN URINE NEGATIVE NEGATIVE TBH AMPHETAMINE SCREEN URINE NEGATIVE NEGATIVE TBH BENZODIAZEPINES SCREEN URINE NEGATIVE NEGATIVE TBH TRICYCLIC ANTIDEPRESSANT URINE NEGATIVE NEGATIVE TB[facility] METHADONE SCREEN URINE NEGATIVE NEGATIVE TBH BARBITURATES SCREEN URINE NEGATIVE NEGATIVE TBH OXYCODONE SCREEN URINE NEGATIVE NEGATIVE TBH BUPRENORPHINE SCREEN URINE NEGATIVE NEGATIVE [facility] Comment: DRUG CLASS TEST SYSTEM CUT-OFF CONCENTRATIONS ARE FOLLOWS: AMP (Amphetamine): 500 ng/mL BAR (Barbiturates): 200 ng/mL BZO (Benzodiazepines): 150 ng/mL BUP (Buprenorphine): 10 ng/mL TRINI (Cocaine): 150 ng/mL mAMP (Methamphetamine): 500 ng/mL MTD (Methadone): 200 ng/mL OPI (Opiates): 100 ng/mL OXY (Oxycodone): 100 ng/mL PCP (Phencyclidine): 25 ng/mL THC (Cannabinoids): 50 ng/mL TCA (Trycyclic Antidepressants): 300 ng/mL 01/21/2025 3:00 PM EDT 01/21/2025 3:12 PM EDT Narrative CLINISYNC - 01/21/2025 3:34 PM EDT us Nikunj Jesika DO CLINISYNC Final Result [facility] * (ABNORMAL) POCT , urine manually resulted (01/21/2025 2:16 PM EDT) Preg Test, Ur Positive Negative Urine 01/21/2025 2:16 PM EDT us Nikunj Jesika DO POINT OF CARE TEST ENTER/EDIT OR DERABLES Final Result * US OB transvaginal (01/21/2025 1:55 PM EDT) Anatomical Region Laterality Modality Body Ultrasound 01/22/2025 10:2 5 AM EDT Narrative 01/22/2025 10:25 AM EDT EXAM: US OB TRANSVAGINAL HISTORY: Dating. COMPARISON: None available. TECHNIQUE: Two-dimensional transvaginal grayscale ultrasound imaging of the pelvis was performed. Color Doppler evaluation of the ovaries was also performed. FINDINGS: The uterus demonstrates a normal homogeneous echotexture. The cervix measures 3.5 cm in length and the cervical os is closed. The right ovary measures 2.6 x 1.5 x 2.0 cm and demonstrates a normal echotexture. There is normal color Doppler flow. The left ovary measures 3.4 x 1.9 x 3.8 cm and demonstrates a normal echotexture. There is normal color Doppler flow. There is a presumed corpus luteal cyst visualized. No fluid is present within the cul-de-sac. There is a single, live intrauterine gestation identified with a heart rate of 185 beats per minute and a crown-rump length measurement of 2.4 cm, correlating to a gestational age of 9 weeks 1 days (+/- 6 days). There are two subchorionic hemorrhages visualized, measuring 1.6 cm and a 1.3 cm subchorionic. A yolk sac is visualized. IMPRESSION: 1. Single, live intrauterine gestation 9 weeks, 0 days by LMP. Today's ultrasound measurements correlate with a gestational age of 9 weeks 1 days (+/- 6 days). CAROL by today's ultrasound is 08/25/2025. 2. Two subchorionic hemorrhages noted. A short-term follow-up ultrasound is recommended to monitor for resolution. 3. Normal color Doppler evaluation of the bilateral ovaries. Interpreted by: Electronically signed by PRIMO KIRKLAND II, MD, PHD at 22-Jan-2025 10:24:02 AM [facility] Procedure Note Primo Kirkland MD - 01/22/2025 EXAM: US OB TRANSVAGINAL HISTORY: Dating. COMPARISON: None available. TECHNIQUE: Two-dimensional transvaginal grayscale ultrasound imaging ofthe pelvis was performed. Color Doppler evaluation of the ovaries was alsoperformed. FINDINGS: The uterus demonstrates a normal homogeneous echotexture. The cervixmeasures 3.5 cm in length and the cervical os is closed. The right ovary measures 2.6 x 1.5 x 2.0 cm and demonstrates a normalechotexture. There is normal color Doppler flow. The left ovary measures 3.4 x 1.9 x 3.8 cm and demonstrates a normalechotexture. There is normal color Doppler flow. There is a presumedcorpus luteal cyst visualized. No fluid is present within the cul-de-sac. There is a single, live intrauterine gestation identified with a fetalheart rate of 185 beats per minute and a crown-rump length measurement of2.4 cm, correlating to a gestational age of 9 weeks 1 days (+/- 6 days).There are two subchorionic hemorrhages visualized, measuring 1.6 cm and a1.3 cm subchorionic. A yolk sac is visualized. IMPRESSION: 1. Single, live intrauterine gestation 9 weeks, 0 days by LMP. Today'sultrasound measurements correlate with a gestational age of 9 weeks 1 days(+/- 6 days). CAROL by today's ultrasound is 08/25/2025. 2. Two subchorionic hemorrhages noted. A short-term follow-up ultrasoundis recommended to monitor for resolution. 3. Normal color Doppler evaluation of the bilateral ovaries. 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
--- OUTSIDE RECORDS SUMMARY | 2025-04-15 14:46 | XMS_ITS | Encounter Summary ---
Author Organization [facility] Address [address] [place] [place] [address] Care Team Providers Care Bookkeeping Clerk Name Role Phone Michelle Pabon MD Primary Care Provider [phone] Encounter Details Date Type Department Care Team (Late Contact Info) Description 03/19/2025 Abstract [facility] [address] [place] [address] Nighat Moyer MA Social History Tobacco Use Types Packs/Day Years [...] EDT Routine [facility] [address] [place] [address] Patricia Roy NP [address] [place] [address] documented as of this encounter Visit Diagnoses Not on filedocumented in this encounter Care Teams Bookkeeping Clerk Relationship Specialty Start Date End Date Michelle Pabon MD [address] [place] [id number] PCP - General Family Medicine 03/25/24 documented as of this encounter
--- OUTSIDE RECORDS SUMMARY | 2025-04-15 14:46 | XMS_ITS | Clinical Summary ---
Author Organization [facility] Address [address], [address] [place] [address] Care Team Providers Care Enrobing Machine Operator Name Role Phone Annel Yuen ALESSANDRA - ADMINISTRATIVE PERSONAL ASSISTANT Primary Care Provider [phone] Encounters Date Type Department Care Team Description 03/04/2025 4:29 PM EDT - 03/04/2025 11:59 PM EDT Hospital Encounter [place] [id number] Discharge Disposition: Home or Self Care from Last 3 Months Social History Tobacco Use Types Packs/Day Years Used Date Smoking Tobacco: Never Assessed Comments Unknown Sex and Gender Information Value Date Recorded Sex Assigned at Not on file Legal Sex Female 10:58 AM EDT Gender Identity Not on file Sexual Orientation Not on file Plan of Treatment Health Maintenance Due Date Last Done Comments DTaP/Tdap/Td vaccine (1 - Tdap) 2018 COVID-19 Vaccine (2023-2 5 season) 2024 Flu vaccine (#1) 03/12/2025 Polio vaccine Aged Out No longer elig ible based on patient's age to complete this topic Procedures Procedure Name Priority Date/Time Associated Diagnosis Comments QUANTIFERON (R) TB GOLD Routine 03/04/2025 2:09 PM EDT from Last 3 Months Results * Quantiferon TB Gold (03/04/2025 2:09 PM EDT) QuantiFERON Nil 0.08 IU/mL 2:09 PM EDT [facility] Quantiferon TB1 Minus NIL 0.00 0.00 - 0.34 IU/mL 03/04/2025 2:09 PM EDT [facility] TB2 Minus NIL 0.00 0.00 - 0.34 IU/mL 03/04/2025 2:09 PM EDT [facility] QuantiFERON-TB minus NIL 9.92 IU/mL 03/04/2025 2:09 PM EDT [facility] Quantiferon TB Interpretation NEGATIVE NEGATIVE IU/mL 03/04/2025 2:09 PM EDT [facility] Apptive Comment: Quantiferon TB Gold Plus Interferon gamma release is measured for specimens from each of the four collection tubes. A qualitative result (Negative, Positive, or Indeterminate) is based on interpretation of the four values: NIL, MITOGEN minus NIL (MITOGEN-NIL), TB1 minus NIL (TB1-NIL), and TB2 minus NIL (TB2-NIL). The NIL value represents nonspecific reactivity produced by the patient specimen. The MITOGEN-NIL value serves as the positive control for the patient specimen, demonstrating successful lymphocyte activity. The TB1-NIL tube specifically detects CD4+ lymphocyte reactivity, specifically stimulated by the TB1 antigens. The TB2-NIL tube detects both CD4+ and CD8+ lymphocyte reactivity, stimulated by TB2 antigens. An overall negative result does not preclude the possibility of M. tuberculosis infection or tuberculosis disease. A false-positive result in the absence of other clinical evidence of TB infection is not uncommon. Refer to: Updated Guidelines for Using Interferon Gamma Release Assays to Detect Mycobacterium tuberculosis Infection -- [place], 2010 (http://www.cdc.gov/mmwr/preview/mmwrhtml/ey2732m5.htm), for more information concerning test performance in low-prevalence populations and use in occupational screening. 03/04/2025 2:09 PM EDT 03/04/2025 4:56 PM EDT Lorene Gabriel MEDICAL SAFETY DIRECTOR - ADMINISTRATIVE PERSONAL ASSISTANT HEMATOLOGY ORDERABLES Final Result [facility] [address] [place] [address], [facility] [phone] [place], [place] [address] [phone] from Last 3 Months Insurance [facility] Care Teams Enrobing Machine Operator Relationship Specialty Start Date End Date Annel Yuen, MEDICAL SAFETY DIRECTOR - ADMINISTRATIVE PERSONAL ASSISTANT [address] [place] [id number] PCP - General Nurse Practitioner 01/10/23
--- OUTSIDE RECORDS SUMMARY | 2025-04-15 15:16 | XMS_ITS | CCD ---
Author Organization [facility] Care Team Providers Care Gaming Host Name Role Phone JESIKA, DR CALVIN Primary Care Unavailable JESIKA, DR CALVIN Admitting Unavailable JESIKA, DR CALVIN Attending Unavailable JESIKA, DR CALVIN Primary Care Unavailable JESIKA, DR CALVIN Admitting Unavailable JESIKA, DR CALVIN Attending Unavailable JESIKA, DR CALVIN Consulting Unavailable LONGCANDE Consulting Unavailable JESIKA, DR CALVIN Consulting Unavailable FURLONG, DR МАРИЯ Olivares Primary Care Unavailable JESIKA, DR CALVIN Admitting Unavailable JESIKA, DR CALVIN Attending Unavailable JESIKA, DR CALVIN Consulting Unavailable JESIKA, DR CALVIN Admitting Unavailable FURLONG, DR МАРИЯ Olivares Primary Care Unavailable JESIKA, DR CALVIN Attending Unavailable Malick APARICIO - SUPERVISOR GENERAL, Annel Kern Primary Care Provider ANNEL YUEN Referring Unavailable ANNEL YUEN Primary Care Unavailable Michelle Pabon MD Primary Care Provider Malick APARICIO-SPECIAL DIET COOK, Annel Heath Primary Care Provider Unavailable Primary Care Provider UnavailMichelle Edward MD Primary Care Provider Michelle Pabon MD Primary Care Provider Malick APARICIO - SUPERVISOR GENERAL, Annel Kern Primary Care Provider RAFAEL LARA Referring Unavailable ANNEL YUEN Primary Care Unavailable NIKUNJ CANCHOLA Attending Unavailable PATRICIA ROY Attending Unavailable NIKUNJ CANCHOLA Attending Unavailable SHAGUFTA ONEAL Attending Unavailable SHAGUFTA ONEAL Referring Unavailable Medications Current Medications Medication Drug Class(es) Dates Sig (Normalized) Sig (Original) amoxicillin 875 mg / clavulanate 125 mg oral tablet (1 source) Penicillin-class Antibacterial Start: 08-02-2023 End: 08-09-2023 take 1 tablet by mouth once in the morning amoxicillin-pot clavulanate (AUGMENTIN) 875-125 mg per tablet Take 1 tablet by mouth in the morning and 1 tablet before bedtime. Do all this for 7 days. 14 tablet 0 08/02/2023 08/09/2023 Active docusate sodium 100 mg oral capsule (4 sources) Start: 01-13-2025 End: 01-23-2025 take 1 capsule by mouth in the morning docusate sodium (Colace) 100 MG capsule Indications: Constipation, unspecified constipation type Take 1 capsule (100 mg) by mouth in the morning and 1 capsule (100 mg) before bedtime. Do all this for 10 days. 20 capsule 01/13/2025 01/23/2025 Active loratadine 10 mg oral tablet (6 sources) End: 01-13-2025 take 1 tablet by mouth once daily loratadine (Claritin) 10 MG tablet Take 10 mg by mouth Daily 01/13/2025 Discontinued losartan potassium 25 mg oral tablet (5 sources) Angiotensin 2 Receptor Pasquale Start: 02-28-2024 End: 12-01-2024 take 25 mg by mouth once daily Losartan Active 25 MG PO Daily February 28, 2024 12:00am metFORMIN hydrochloride 500 mg oral tablet (6 sources) Biguanide Start: 12-01-2024 End: 12-01-2025 take 1 tablet by mouth at mealtime metFORMIN (Glucophage) 500 MG tablet Indications: PCOS (polycystic ovarian syndrome) , Insulin resistance Take 1 tablet (500 mg) by mouth in the morning. Take with meals. 30 tablet 11 12/01/2024 01/13/2025 Discontinued metoclopramide 10 mg oral tablet (10 sources) Dopamine-2 Receptor Antagonist Start: 01-13-2025 End: 03-18-2025 Multiple Vitamin (multivitamin) tablet (6 sources) End: 01-13-2025 take 1 tablet by mouth once daily Multiple Vitamin (multivitamin) tablet Take 1 tablet by mouth Daily 01/13/2025 Discontinued take 1 tablet by mouth once luciano y Multiple Vitamin (multivitamin) tablet Take 1 tablet by mouth Daily Active ondansetron 4 mg disintegrating oral tablet (10 sources) Serotonin-3 Receptor Antagonist Start: 02-22-2025 take 1 tablet by mouth every eight hours as needed for nausea ondansetron ODT (Zofran-ODT) 4 MG disintegrating tablet Take 4 mg by mouth every 8 (eight) hours if needed for nausea 02/22/2025 Active Start: 01-11-2025 End: 02-10-2025 take 1 tablet by mouth every six hours for nausea ondansetron ODT (Zofran-ODT) 4 MG disintegrating tablet Indications: Nausea and vomiting during ([facility]) Take 1 tablet (4 mg) by mouth every 6 (six) hours if needed for nausea or vomiting 30 tablet 2 01/11/2025 02/10/2025 Active phentermine hydrochloride 37.5 mg oral tablet (3 sources) Sympathomimetic Amine Anorectic Start: 01-09-2023 End: 08-02-2023 take 33-33.9 tablets by mouth once daily before breakfast phentermine (ADIPEX-P) 37.5 mg tablet Indications: Class 1 obesity due to excess calories without serious comorbidity with body mass index (BMI) of 33.0 to 33.9 in adult Take 1 tablet (37.5 mg total) by mouth every morning before breakfast. 30 tablet 0 03/05/2023 08/02/2023 Discontinued (Therapy completed) predniSONE 20 mg oral tablet (1 source) Start: 08-02-2023 End: 08-09-2023 take 1 tablet by mouth at mealtime predniSONE (DELTASONE) 20 mg tablet Take 1 tablet (20 mg total) by mouth in the morning for 7 days. Take with food. 7 tablet 0 08/02/2023 08/09/2023 Active 27-1 MG tablet (17 sources) take 1 tablet by mouth once daily 27-1 MG tablet Take 1 tablet by mouth Daily Active Semaglutide (Weight Loss) (1 source) Start: 02-28-2024 Semaglutide (Weight Loss) (Lonnie) 0.25 mg/0.5 mL pen injector Active 0.25 MG SUBCUT every week 2 February 28, 2024 12:00am administer weeks 1 through 4 of therapy Completed/Discontinued Medications Medication Drug Class(es) Dates Sig (Normalized) Sig (Original) 24 hr buPROPion hydrochloride 150 mg extended release oral tablet (10 sources) Aminoketone Start: 03-06-2024 End: 12-01-2024 take 1 tablet by mouth every twenty-four hours in the morning buPROPion XL (Wellbutrin XL) 150 MG 24 hr tablet Take 150 mg by mouth in the morning. 03/06/2024 12/01/2024 Discontinued Start: 12-05-2023 End: 01-07-2024 take 150 mg by mouth once daily in the morning Bupropion Hcl Active 150 MG PO Every morning January 07, 2024 12:59pm End: 12-01-2024 buPROPion SR (Wellbutrin SR) 150 MG 12 hr tablet 12/01/2024 Discontinued DULoxetine 60 mg delayed release oral capsule (5 sources) Serotonin and Norepinephrine Reuptake Inhibitor Start: 12-05-2023 End: 12-18-2023 take 1 capsule by mouth once daily Duloxetine (Cymbalta) 30 mg capsule,delayed release(DR/EC) Discontinued 30 MG PO Daily 14 December 05, 2023 12:00am December 18, 2023 1:01pm Start: 12-05-2023 End: 12-05-2023 take 1 capsule by mouth once daily Duloxetine (Cymbalta) 60 mg capsule,delayed release(DR/EC) Discontinued 60 MG PO Daily December 05, 2023 12:00am December 05, 2023 4:15pm Start: 01-09-2023 take 1 capsule by mo uth in the morning DULoxetine (CYMBALTA) 60 mg capsule Take 1 capsule (60 mg total) by mouth in the morning. 30 capsule 11 01/09/2023 Active ethinyl estradiol 0.035 mg / norgestimate 0.25 mg oral tablet (8 sources) Progestin, Estrogen Start: 01-16-2024 End: 01-15-2025 norgestimate-ethinyl estradiol (Ortho-Cyclen) 0.25-35 MG-MCG tablet Indications: Encounter for surveillance of contraceptive pills Take 1 tablet by mouth Daily 84 tablet 3 01/16/2024 12/01/2024 Discontinued Start: 12-05-2023 take 1 tablet by marya th once daily Norgestimate-Ethinyl Estradiol Active 1 TAB PO Daily December 05, 2023 12:00am Start: 12-18-2022 take 1 tablet by marya th once in the morning norgestimate-ethinyl estradioL (ORTHO-CYCLEN) 0.25-35 mg-mcg per tablet Take 1 tablet by mouth in the morning. 12/18/2022 Active Start: 12-18-2022 take 1 tablet by marya th once in the morning norgestimate-ethinyl estradioL (ORTHO-CYCLEN) 0.25-35 mg-mcg per tablet Take 1 tablet by mouth in the morning. 0 12/18/2022 Active 24 hr loratadine 10 mg / pseudoephedrine sulfate 240 mg extended release oral tablet (5 sources) alpha-Adrenergic Agonist Start: 08-02-2023 End: 12-01-2024 take 10-240 mg by mouth every twenty-four hours in the morning Loratadine-D 24HR 10-240 MG 24 hr tablet Take 1 tablet by mouth in the morning. 08/02/2023 12/01/2024 Discontinued Start: 08-02-2023 End: 08-12-2023 take 1 tablet by mouth once in the morning, then take 1 tablet by mouth every twenty-four hours loratadine-pseudoephedrine (CLARITIN-D 24-hour) 10-240 mg per 24 hr tablet Indications: Non-recurrent acute serous otitis media of both ears Take 1 tablet by mouth in the morning for 10 days. 10 tablet 0 08/02/2023 08/12/2023 Active Problems Active Problems Problem Classification Problem Date Documented Da te Episodic/Chronic Anxiety disorders (3 sources) Anxiety disorder, unspecified; Translations: [Mixed anxiety and depressive disorder] Onset: 07-05-2021 12-15-2023 Chronic Endometriosis (5 sources) Endometriosis of pelvic peritoneum; Translations: [Endometriosis (clinical)] Onset: 07-05-2021 01-09-2023 Chronic Female infertility (2 sources) Female infertility; Translations: [Female infertility, unspecified] 12-01-2024 Chronic Immunizations and screening for infectious disease (3 sources) Encounter for screening for human papillomavirus (HPV); Translations: [Exposure to sexually transmissible disorder] Onset: 02-27-2022 03-18-2025 Episodic Menstrual disorders (7 sources) Excessive and frequent menstruation with regular cycle; Translations: [Dysmenorrhea, unspecified] Onset: 06-30-2021 Chronic Mood disorders (2 sources) Major depression in full remission; Translations: [Major depressive disorder, single episode, in full remission] Onset: 01-09-2023 01-09-2023 Chronic Other complications of (2 sources) Vomiting of , unspecified; Translations: [Unspecified vomiting of , unspecified as to episode of care or not applicable] 01-13-2025 Episodic Other endocrine disorders (2 sources) Polycystic ovary syndrome; Translations: [Polycystic ovarian syndrome] 12-01-2024 Chronic Other female genital disorders (1 source) Unspecified dyspareunia; Translations: [UNSPECIFIED DYSPAREUNIA] Onset: 07-05-2021 Chronic Other female genital disorders (1 source) Abnormal uterine and vaginal bleeding, unspecified; Translations: [ABNORMAL UTERINE VAGINAL BLEED UNS] Onset: 06-27-2021 Chronic Other female genital disorders (2 sources) Abnormal uterine bleeding; Translations: [Abnormal uterine and vaginal bleeding, unspecified] 12-01-2024 Chronic Other female genital disorders (2 sources) Vaginal discharge; Translations: [Other specified noninflammatory disorders of vagina] 03-18-2025 Episodic Other gastrointestinal disorders (2 sources) Constipation; Translations: [Constipation, unspecified] 01-13-2025 Episodic Other nutritional; endocrine; and metabolic disorders (1 source) Obesity, unspecified; Translations: [OBESITY UNSPECIFIED] Onset: 07-05-2021 Chronic Other nutritional; endocrine; and metabolic disorders (2 sources) Insulin resistance; Translations: [Insulin resistance] 12-01-2024 Chronic Other and delivery including normal (8 sources) ; Translations: [Encounter for supervision of normal , unspecified, unspecified trimester] 01-21-2025 Episodic Other screening for suspected conditions (not mental disorders or infectious disease) (6 sources) Encounter for screening for malignant neoplasm of cervix; Translations: [Patient encounter status] Onset: 02-26-2022 Episodic Polyhydramnios and other problems of amniotic cavity (2 sources) Subchorionic hematoma; Translations: [Other specified disorders of amniotic fluid and membranes, first trimester, not applicable or unspecified] 03-18-2025 Episodic Residual codes; unclassified (2 sources) Gestation period, 13 weeks; Translations: [13 weeks gestation of ] 02-18-2025 Episodic Residual codes; unclassified (2 sources) Gestation period, 17 weeks; Translations: [17 weeks gestation of ] 03-18-2025 Episodic Unclassified (1 source) CONTACT W/AND (SUSP) EXPOS COVID-19; Translations: [CONTACT W/AND (SUSP) EXPOS COVID-19] Onset: 07-03-2021 Unclassified (2 sources) pre employment; Translations: [pre employment] Onset: 03-04-2025 Past or Other Problems Problem Classification Problem Date Documented Da te Episodic/Chronic Abdominal pain (1 source) Pelvic and perineal pain; Translations: [PELVIC AND PERINEAL PAIN] Onset: 07-05-2021 Episodic Mood disorders (3 sources) Mood disorders; Translations: [DEPRESSION UNSPECIFIED] Onset: 07-05-2021 08-02-2023 Other circulatory disease (1 source) Elevated blood pressure; Translations: [Elevated blood-pressure reading, without diagnosis of hypertension] 08-02-2023 Episodic Other upper respiratory infections (1 source) Acute maxillary sinusitis; Translations: [Acute maxillary sinusitis, unspecified] 08-02-2023 Episodic Otitis media and related conditions (1 source) Acute non-suppurative otitis media - serous; Translations: [Acute serous otitis media, bilateral] 08-02-2023 Episodic Unclassified (2 sources) Onset: 03-05-2023 03-05-2023 Results Test Name Value Interpretation Reference Range Facility AFP, SERUM, OPEN SPINA BIFID Aon 03-20-2025 AFP MOM 1.10 . [facility] AFP VALUE 34.4 ng/mL . [facility] COMMENT: Comment . [facility] Comment on above: Giselle Merida , Ph.D., [facility] Director References: Available Upon Request. Multiples Of Median Cutoffs For AFP Elevations Sellers 2.5 Black 2.8 IDD 2.0 Twins 4.5 Abbreviation Definitions IDD - Insulin Dep Diabetes OSBR - Open Spina Bifida Risk For further inquiries contact [employer] [facility] at [phone]. This test was developed and its performance characteristics determined by [employer]. It has not been cleared or approved by the Food and Drug Administration. Performed at: [facility] [address] [facility], [place], [place] [id number] Grocery Clerk Checking: Nirmal Means [facility], Phone: [phone] GEST. AGE ON COLLECTION DATE 17.0 . weeks [facility] GESTAT. AGE BASED ON LMP . [facility] Comment on above: Recalculations are n ot recommended when gestational dating by LMP and ultrasound are within 10 days. INSULIN DEP DIABETES No . [facility] INTERPRETATION Comment . [facility] Comment on above: Interpretation: Scre en Negative This result is screen negative for [...] Customer Services to discuss available options. The [employer] [place] [employer] recommends amniocentesis be offered to women age 35 and older. [age] [facility] MULTIPLE GESTATION No . [facility] OSBR RISK 1 [place] 8933 . [facility] RACE . [facility] RESULTS Report . [facility] TEST RESULTS: Negative . [facility] WEIGHT 206 . lbs [facility] N N LMP [id number] [phone] N 1 Y 206 N N N N N White/ [facility] RECURRENT VAGINITIS (HTRX)on 03-19-2025 ATOPOBIUM VAGINAE 0 [facility] ATOPOBIUM VAGINAE Not detected [facility] BVAB 2,3 (BACTERIAL VAGINOSIS ASSOCIATED BACTERIA 2, 3); MOBILUNCUS SPP 0 [facility] BVAB 2,3 (BACTERIAL VAGINOSIS ASSOCIATED BACTERIA 2, 3); MOBILUNCUS SPP Not detected [facility] ROSALBA ALBICANS, PARAPSILOSIS, TROPICALIS 26.725 Abnormal [facility] ROSALBA ALBICANS, PARAPSILOSIS, TROPICALIS Detected Abnormal [facility] ROSALBA GLABRATA 0 [facility] ROSALBA GLABRATA Not detected [facility] ROSALBA KRUSEI 0 [facility] ROSALBA KRUSEI Not detected [facility] CHLAMYDIA TRACHOMATIS 0 [facility] CHLAMYDIA TRACHOMATIS Not detected N [facility] GARDNERELLA VAGINALIS 17.732 Abnormal [facility] GARDNERELLA VAGINALIS Detected Abnormal [facility] Interpretation and review of laboratory results Abnormal [facility] MEGASPHAERA (TYPES 1, 2) 0 [facility] MEGASPHAERA (TYPES 1, 2) Not detected [facility] MYCOPLASMA GENITALIUM 0 [facility] MYCOPLASMA GENITALIUM Not detected N [facility] NEISSERIA GONORRHOEAE 0 [facility] NEISSERIA GONORRHOEAE Not detected N [facility] TRICHOMONAS VAGINALIS 0 [facility] TRICHOMONAS VAGINALIS Not detected N [facility] US OB LIMITED 1+ FETUSESon 0 03-18-2025 US OB LIMITED 1+ FETUSES FINDINGS: Cephalic presentation. Anterior placenta. Heart rate 159 bpm. single viable intrauterine versus , cephalic presentation, anterior placenta, heart rate 159 bpm. Normal cardiac activity. No subchorionic hemorrhage. IMPRESSION: Single viable intrauterine , no subchronic hemorrhage. TRANSCRIBED BY: ELECTRONICALLY SIGNED BY: Miguel Thompson MD Normal Not Available Comment on above: Order Comment: US OB VIABILITY PLEASE PERFORM TRANSVAGINAL ULTRASOUND IF INDICATED Patient's last menstrual period was 11/19/2024 (approximate). Urinalysis macro (dipstick) panel (U)on 03-18-2025 Bilirubin, UA Negative Negative - 4(70) +++ mg/dL [facility] Blood, UA Negative Negative - 50 Randall/mcL [facility] Clarity, UA Clear [facility] Color, UA Yellow [facility] Glucose, UA Negative Negative - 1999(110) ++++ mg/dL [facility] Interpretation and review of laboratory results Abnormal [facility] Ketones, UA Negative Negative - 160(16) ++++ mg/dL [facility] Leukocytes, UA Positive Negative - 500+++ Johnson/mcL [facility] Comment on above: 3+ Nitrite, UA Negative Negative - Positive [facility] pH, UA 7 5 - 9 [facility] Protein, UA Negative Negative - 1999(20) ++++ mg/dL [facility] Spec Grav, UA 1.02 1 - 1.03 [facility] Urobilinogen, UA 1.0 0.2 - 12 mg/dL [facility] QuantiFERON Tbon 03-06-2025 QFT Inter Negative Normal NEG [facility] Comment on above: Result Comment: Quantiferon TB Gold Plus Interferon gamma [...] Mycobacterium tuberculosis Infection -- [place], 2010 (http://www.cdc.gov/mmwr/preview/mmwrhtml/aw0674u9.htm), for more information concerning test performance in low-prevalence populations and use in occupational screening. Performed By: #### Q FTB #### [place] [address] Grocery Clerk Checking: Lance Chester MD Quant Juan minus NIL 9.92 IU/mL [facility] Comment on above: Performed By: #### Q FTB #### [facility] [place] [address] Grocery Clerk Checking: Lance Chester MD Quanti TB1 minus NIL 0.00 IU/mL Normal 0.00-0.34 [facility] Comment on above: Performed By: #### Q FTB #### [facility] [address] [place] [address] Grocery Clerk Checking: Lance Chester MD Quanti TB2 minus NIL 0.00 IU/mL Normal 0.00-0.34 [facility] Comment on above: Performed By: #### Q FTB #### [facility] [employer] [address] [place] [id number] Grocery Clerk Checking: Lance Chester MD QuantiFERON NIL 0.08 IU/mL [facility] Comment on above: Performed By: #### Q FTB #### [address] [id number] Grocery Clerk Checking: Lance Chester MD Urinalysis macro (dipstick) panel (U)on 02-18-2025 Bilirubin, UA Negative Negative - 4(70) +++ mg/dL [facility] Blood, UA Negative Negative - 50 Randall/mcL [facility] Clarity, UA Clear [facility] Color, UA Yellow [facility] Glucose, UA Negative Negative - 1999(110) ++++ mg/dL [facility] Interpretation and review of laboratory results Normal [facility] Ketones, UA Negative Negative - 160(16) ++++ mg/dL [facility] Leukocytes, UA Positive Negative - 500+++ Johnson/mcL [facility] Comment on above: large Nitrite, UA Negative Negative - Positive [facility] pH, UA 7 5 - 9 [facility] Protein, UA Negative Negative - 1999(20) ++++ mg/dL [facility] Spec Grav, UA 1.015 1 - 1.03 [facility] Urobilinogen, UA 0.2 0.2 - 12 mg/dL [facility] US OB TRANSVAGINALon [address] [place] [address] Ultrasound Report Signed Patient: YENIFER TEMPLETON MR#: [id number] : 2000 Acct:[id number] Age/Sex: 24 / F ADM Date: 02/11/25 Loc: US Attending Dr: Nikunj Canchola D.O. Ordering Physician: Nikunj Canchola D.O. Date of Service: 02/11/25 Procedure(s): US OB transvaginal Accession Number(s): [id number] cc: Michelle Pabon M.D.; Nikunj Canchola D.O. [place] [id number] Patient Name: YENIFER TEMPLETON MRN: [id number] date: 2000 Sex: F Assigned Patient Location: Current Patient Location: US Accession/Order Number: [id number] Exam Date: 02/11/2025 09:39 Report Date: 02/11/2025 [...] Gillette M.D. 02/11/2025 9:43 AM Dictation Location: [place] [address] Electronically authenticated by: [id number] Y Date: 02/11/2025 09:43 Dictated By: Misa Gillette M.D. Signed By: 02/11/2546 DD/ TD/TT: Machine Shop Specialist: [facility] Radiology, Radiologist, - 02/11/2025 [place] [address] Ultrasound Report Signed Patient: YENIFER TEMPLETON MR#: [id number] : 2000 Acct:[id number] Age/Sex: 24 / F ADM Date: 02/11/25 Loc: US Attending Dr: Nikunj Canchola D.O. Ordering Physician: Nikunj Canchola D.O. Date of Service: 02/11/25 Procedure(s): US OB transvaginal Accession Number(s): [id number] cc: Michelle Pabon M.D.; Nikunj Canchola D.O. [place] [address] Patient Name: YENIFER TEMPLETON MRN: [id number] date: 2000 Sex: F Assigned Patient Location: US Current Patient Location: US Accession/Order Number: [id number] Exam Date: 02/11/2025 09:39 Report Date: 02/11/2025 [...] Gillette M.D. 02/11/2025 9:43 AM Dictation Location: [place] [address] Electronically authenticated by: [id number] Y Date: 02/11/2025 09:43 Dictated By: Misa Gillette M.D. Signed By: 02/11/2546 DD/ 2 TD/TT: Machine Shop Specialist: [facility] Radiology Study observation (narrative) [facility] OB TRANSVAGINALOrdered By : Radiologist Radiology on 02-11-2025 [facility] Work Phone: HCG ( test) Ql (U)o n 01-21-2025 Interpretation and review of laboratory results Abnormal [facility] Preg Test, Ur Positive Negative [facility] MLR HEMOGLOBIN A1Con 025 Glucose [Mass/Vol] 91 mg/dL [facility] HbA1c (Bld) [Mass fraction] 4.8 % 4.5 - 6.2 % [facility] Comment on above: ADA RECOMMENDED LIMI T 4.0 - 6.0 ADA THERAPEUTIC TARGET < 7.0 ACTION SUGGESTED > 7.0 [facility] OB TRANSVAGINALon 025 US OB TRANSVAGINAL EXAM: US OB TRANSVAGINAL HISTORY: Dating. COMPARISON: [...] II, MD, PHD at 22-Jan-2025 10:24:02 AM [facility] Normal Not Available Comment on above: Order Comment: US OB TRANSVAGINAL Patient's last menstrual period was 11/19/2024 (approximate). Urinalysis macro (dipstick) panel (U)on 01-21-2025 Bilirubin, UA Negative Negative - 4(70) +++ mg/dL [facility] Blood, UA Negative Negative - 50 Randall/mcL [facility] Clarity, UA Clear [facility] Color, UA Yellow [facility] Glucose, UA Negative Negative - 1999(110) ++++ mg/dL [facility] Interpretation and review of laboratory results Normal [facility] Ketones, UA Negative Negative - 160(16) ++++ mg/dL [facility] Leukocytes, UA Trace Negative - 500+++ Johnson/mcL [facility] Nitrite, UA Negative Negative - Positive [facility] pH, UA 6 5 - 9 [facility] Protein, UA Negative Negative - 1999(20) ++++ mg/dL [facility] Spec Grav, UA 1.01 1 - 1.03 [facility] Urobilinogen, UA 0.2 0.2 - 12 mg/dL [facility] Urinalysis macro (dipstick) panel (U)on 01-13-2025 Bilirubin, UA Negative Negative - 4(70) +++ mg/dL [facility] Blood, UA Negative Negative - 50 Randall/mcL [facility] Clarity, UA Clear [facility] Color, UA Yellow [facility] Glucose, UA Negative Negative - 1999(110) ++++ mg/dL [facility] Interpretation and review of laboratory results Abnormal [facility] Ketones, UA Negative Negative - 160(16) ++++ mg/dL [facility] Leukocytes, UA Positive Negative - 500+++ Johnson/mcL [facility] Comment on above: Large Nitrite, UA Negative Negative - Positive [facility] pH, UA 7 5 - 9 [facility] Protein, UA Negative Negative - 1999(20) ++++ mg/dL [facility] Spec Grav, UA 1.015 1 - 1.03 [facility] Urobilinogen, UA 0.2 0.2 - 12 mg/dL [facility] ALL CBC WITH AUTO DIFFon BASOPHILS ABSOLUTE AUTO 0.1 N [facility] Basophils/100 WBC (Bld) 0.5 % 0.2 - 2.0 % [facility] Eosinophils/100 WBC (Bld) 2.6 % 0.9 - 7.0 % [facility] Erythrocyte distribution width (RBC) [Ratio] 12.2 % 11.0 - 15.0 % [facility] Hematocrit (Bld) [Volume fraction] 42.8 % 36.0 - 48.0 % [facility] Hemoglobin (Bld) [Mass/Vol] 14.8 g/dL 12.0 - 16.0 g/dL [facility] IMMATURE GRANULOCYTES ABS AUTO 0.01 [facility] Immature granulocytes/100 WBC (Bld) 0.1 % 0.0 - 0.5 % [facility] LYMPHOCYTES ABSOLUTE AUTO 2.8 [facility] Lymphocytes/100 WBC (Bld) 29.5 % 20.5 - 60.0 % [facility] MCH (RBC) [Entitic mass] 29.6 pg 26.7 - 34.0 pg [facility] MCHC (RBC) [Mass/Vol] 34.6 g/dL 29.9 - 35.2 g/dL [facility] MCV (RBC) [Entitic vol] 85.6 fL 81.0 - 99.0 fL [facility] MONOCYTES ABSOLUTE AUTO 0.6 N [facility] Monocytes/100 WBC (Bld) 5.8 % 1.7 - 12.0 % [facility] NEUTROPHILS ABSOLUTE AUTO 5.8 [facility] Neutrophils/100 WBC (Bld) 61.5 % 43.0 - 75.0 % [facility] Platelet mean volume (Bld) [Entitic vol] 10 fL 9.5 - 13.5 fL [facility] TBH EO # 0.3 [facility] PLT 260 [facility] RBC 5 [facility] WBC 9.5 [facility] HCG ( test) Ql (U)o n 12-01-2024 Interpretation and review of laboratory results Normal [facility] Preg Test, Ur Negative Negative [facility] Urinalysis macro (dipstick) panel (U)on 12-01-2024 Bilirubin, UA Negative Negative - 4(70) +++ mg/dL [facility] Blood, UA Negative Negative - 50 Randall/mcL [facility] Clarity, UA Clear [facility] Color, UA Yellow [facility] Glucose, UA Negative Negative - 2000(110) ++++ mg/dL [facility] Interpretation and review of laboratory results Abnormal [facility] Ketones, UA Negative Negative - 160(16) ++++ mg/dL [facility] Leukocytes, UA Positive Negative - 500+++ Johnson/mcL [facility] Comment on above: small Nitrite, UA Negative Negative - Positive [facility] pH, UA 7 5 - 9 [facility] Protein, UA Negative Negative - 1999(20) ++++ mg/dL [facility] Spec Grav, UA 1.01 1 - 1.03 [facility] Urobilinogen, UA 0.2 0.2 - 12 mg/dL [facility] IGP,APTIMA HPV,AGE GDLNon AGE GDLN ACOG TESTING Note . [facility] Comment on above: TESTS RESULT FLAG UN ITS REF RANGE LAB Clinician Provided Cytology Information Source.............Cervix;Endocervix No. of containers..01 ThinPrep Vial Age Algo ACOG Millie... FLAG LEGEND: L-Low Normal,H-High Normal,LL-Alert Low,HH-Alert High <-Panic Low,>-Panic High,A-Abnormal,AA-Critical Abnormal Performed at: 01 =G [address] [address] Beverly Nguyen MD, IGP, RFX APTIMA HPV ASCU Note . [facility] Comment on above: TESTS RESULT FLAG UN ITS REF RANGE LAB DIAGNOSIS: 02 NEGATIVE FOR INTRAEPITHELIAL LESION OR MALIGNANCY. Specimen adequacy: 02 Satisfactory for evaluation. No endocervical component is identified. Performed by: 02 Nikolay Smith, Hyperbaric Nurse ([facility]) . 02 Note: Note 02 The Pap smear is a screening test designed to aid in the detection of premalignant and malignant conditions of the uterine cervix. It is not a diagnostic procedure and should not be used as the sole means of detecting cervical cancer. Both false-positive and false-negative reports do occur. Test Methodology: Note 02 This liquid based ThinPrep(R) pap test was screened with the use of an image guided system. . 02 The HPV DNA reflex criteria were not met with this specimen result therefore, no HPV testing was performed. FLAG LEGEND: L-Low Normal,H-High Normal,LL-Alert Low,HH-Alert High <-Panic Low,>-Panic High,A-Abnormal,AA-Critical Abnormal Performed at: [address] [place] [address] Beverly Nguyen MD, Performed at: = - [facility] [address] [id number] Grocery Clerk Checking: Beverly Nguyen MD, Phone: [phone] Performed at: [facility] [id number] Grocery Clerk Checking: Beverly Nguyen MD, Phone: [phone] BRUSH-SPATULA CERVIX ENDOCERVIX [facility] Metabolic Pane kim 01-10-2023 Albumin [Mass/Vol] 4.2 g/dL Normal 3.5-5.0 [facility] Comment on above: Order Comment: Order ed by ANNEL MALICK Performed By: #### C MARCELLE, [id number] #### [place] [id number] Ph. [phone] ALP [Catalytic activity/Vol] 77 U/L Normal 38-126 [facility] Comment on above: Order Comment: Order ed by ANNEL MALICK Performed By: #### C MARCELLE, [id number] #### [place] [id number] Ph. [phone] ALT [Catalytic activity/Vol] 29 U/L Normal 0-35 [facility] Comment on above: Order Comment: Order ed by ANNEL MALICK Performed By: #### C MARCELLE, [id number] #### [place] [address] Ph. [phone] AST [Catalytic activity/Vol] 30 U/L Normal 14-36 [facility] Comment on above: Order Comment: Order ed by ANNEL MALICK Performed By: #### C MARCELLE, [id number] #### [place] [id number] Ph. [phone] Bilirubin [Mass/Vol] 0.4 mg/dL Normal 0.2-1.[address] [facility] Comment on above: Order Comment: Order ed by ANNEL MALICK Performed By: #### C MARCELLE, [id number] #### [place] [id number] Ph. [phone] Calcium [Mass/Vol] 9.2 mg/dL Normal 8.4-10.2 [facility] Comment on above: Order Comment: Order ed by ANNEL MALICK Performed By: #### C MARCELLE, [id number] #### [place] [id number] Ph. [phone] Chloride [Moles/Vol] 101 mmol/L Normal 98-[address] [facility] Comment on above: Order Comment: Order ed by ANNEL YUEN Performed By: #### C MARCELLE, [id number] #### [place] [address] Ph. [phone] CO2 [Moles/Vol] 25 mmol/L Normal 22-32 [facility] Comment on above: Order Comment: Order ed by ANNEL YUEN Performed By: #### C MARCELLE, [id number] #### [place] [address] Ph. [phone] Creatinine [Mass/Vol] 0.71 mg/dL Normal 0.52-1.04 [facility] Comment on above: Order Comment: Order ed by ANNEL YUEN Performed By: #### C MARCELLE, [id number] #### [place] [address] Ph. [phone] GFR/1.73 sq M.predicted among non-blacks MDRD (S/P/Bld) [Vol rate/Area] 122 mL/min/{1.73_m2} Normal >60 [facility] Comment on above: Order Comment: Order ed by ANNEL YUEN Result Comment: GFR calculated using CKD-EPI (2020) formula.\X0D0A\Stage 1 Kidney damage (e.g., protein in the urine) with normal GFR >=90\X0D0A\Stage 2 Kidney damage with mild decrease in GFR 60-89\X0D0A\Stage 3a Moderate decrease in GFR 45-59\X0D0A\Stage 3b Moderate decrease in GFR 30-44\X0D0A\Stage 4 Severe reduction in GFR 15-29\X0D0A\Stage 5 Kidney failure <15 Performed By: #### C MARCELLE, [id number] #### [place] [address] Ph. [phone] Glucose [Mass/Vol] 85 mg/dL Normal 65-100 [facility] Comment on above: Order Comment: Order ed by ANNEL YUEN Performed By: #### C MARCELLE, [id number] #### [place] [id number] Ph. [phone] Potassium [Moles/Vol] 4.1 mmol/L Normal 3.6-5.0 [facility] Comment on above: Order Comment: Order ed by ANNEL YUEN Performed By: #### C MARCELLE, [id number] #### [place] [address] Ph. [phone] Protein [Mass/Vol] 8.0 g/dL Normal 6.3-8.2 [facility] Comment on above: Order Comment: Order ed by ANNEL YUEN Performed By: #### C MARCELLE, [id number] #### [place] [address] Ph. [phone] Sodium [Moles/Vol] 137 mmol/L Normal 135-145 [facility] Comment on above: Order Comment: Order ed by ANNEL YUEN Performed By: #### C MARCELLE, [id number] #### [place] [id number] Ph. [phone] Urea nitrogen [Mass/Vol] 10 mg/dL Normal 7-17 [facility] Comment on above: Order Comment: Order ed by ANNEL YUEN Performed By: #### C MARCELLE, [id number] #### [place] [address] Ph. [phone] Albumin [Mass/Vol] 4.2 g/dL 3.5 - 5.0 g/dL [facility] ALP (Bld) [Catalytic activity/Vol] 77 U/L 38 - 126 U/L [facility] ALT [Catalytic activity/Vol] 29 U/L 0 - 35 U/L [facility] AST [Catalytic activity/Vol] 30 U/L 14 - 36 U/L [facility] Bilirubin [Mass/Vol] 0.4 mg/dL 0.2 - 1 .3 mg/dL [facility] Calcium [Mass/Vol] 9.2 mg/dL 8.4 - 10. 2 mg/dL [facility] Chloride [Moles/Vol] 101 mmol/L [facility] CO2 [Moles/Vol] 25 mmol/L [facility] Creatinine [Mass/Vol] 0.71 mg/dL 0.52 - 1.04 mg/dL [facility] GFR, Estimated 122 - [facility] Comment on above: GFR calculated using CKD-EPI (2020) formula. Stage 1 Kidney damage (e.g., protein in the urine) with normal GFR >=90 Stage 2 Kidney damage with mild decrease in GFR 60-89 Stage 3a Moderate decrease in GFR 45-59 Stage 3b Moderate decrease in GFR 30-44 Stage 4 Severe reduction in GFR 15-29 Stage 5 Kidney failure <15 Glucose [Mass/Vol] 85 mg/dL 65 - 100 mg/dL [facility] Potassium [Moles/Vol] 4.1 mmol/L [facility] Protein [Mass/Vol] 8.0 g/dL 6.3 - 8.2 g/dL [facility] Sodium [Moles/Vol] 137 mmol/L [facility] T Urea nitrogen (BldV) [Mass/Vol] 10 mg/dL 7 - 17 mg/dL [facility] Ordered by ANNEL YUEN [facility] TSH Reflex FT4on 01-10-2023 TSH 2.420 mIU/mL Normal 0.470-4.680 [facility] Comment on above: Order Comment: Order ed by ANNEL YUEN Performed By: #### C MP, [id number] #### [place] [address] Ph. [phone] TSH with Reflexon 01-10-2023 TSH Qn 2.420 m[IU]/L [facility] Ordered by ANNEL YUEN [facility] PAP ACOG PANEL 2: 21 to 29on 03-01-2022 . . Normal [facility] Comment on above: Performed By: #### [id number] #### [facility] [address] [address] [address] Dallas Wolf Age Gdln ACOG Testing Normal [facility] Comment on above: Performed By: #### 4 [id number] #### [facility] [address] [place] [address] [address] Dallas Wolf DIAGNOSIS: Comment Normal [facility] Comment on above: Result Comment: NEGA TIVE FOR INTRAEPITHELIAL LESION OR MALIGNANCY. Performed By: #### 4 [id number] #### [facility] [address] [place] [address] Dr. Dallas Wolf Methodology: Comment Normal [facility] Comment on above: Result Comment: This liquid based ThinPrep(R) pap test was screened with the use of an image guided system. Performed By: #### 4 [id number] #### [facility] [address] [place] [address] Dr. Dallas Wolf Note: Comment Normal [facility] Comment on above: Result Comment: The Pap smear is a screening test designed to aid in the detection of premalignant and malignant conditions of the uterine cervix. It is not a diagnostic procedure and should not be used as the sole means of detecting cervical cancer. Both false-positive and false-negative reports do occur. . Performed By: #### 4 [id number] #### [facility] [address] [place] [address] Dr. Dallas Wolf Performed by: Comment Normal [facility] Comment on above: Result Comment: Héctor Smith Hyperbaric Nurse (ASCP) Performed By: #### 4 [id number] #### [facility] [address] [place] [address] Dr. Dallas Wolf Reflex Criteria: Comment Normal [facility] Comment on above: Result Comment: The HPV DNA reflex criteria were not met with this specimen result therefore, no HPV testing was performed. . Performed By: #### 4 [id number] #### [facility] [address] [place] [address] Dr. Dallas Wolf Specimen adequacy: Comment Normal [facility] Comment on above: Result Comment: Sati sfactory for evaluation. Endocervical and/or squamous metaplastic cells (endocervical component) are present. Performed By: #### 4 [id number] #### [facility] [address] [place] [address] Dr. Dallas Wolf CBC AUTO DIFFon 06-30-2021 BASO # 0.1 103/ul Normal 0.0-0.1 [facility] Comment on above: Performed By: #### C BC #### [facility] [address] [place] [address] Dr. Dallas Wolf Basophils/100 WBC (Bld) 0.8 % Normal 0.2-2.0 [facility] Comment on above: Performed By: #### C BC #### [facility] [address] [place] [address] Dr. Dallas Wolf EO # 0.3 103/ul Normal 0.0-0.7 [facility] Comment on above: Performed By: #### C BC #### [facility] [address] [place] [address] Dr. Dallas Wolf Eosinophils/100 WBC (Bld) 4.1 % Normal 0.9-7.0 [facility] Comment on above: Performed By: #### C BC #### [facility] [address] [place] [address] Dr. Dallas Wolf Erythrocyte distribution width (RBC) [Ratio] 13.0 % Normal 11.0-15.0 [facility] Comment on above: Performed By: #### C BC #### [facility] [address] [place] [address] Dr. Dallas Wolf Hematocrit (Bld) [Volume fraction] 43.4 % Normal 36.0-48.0 [facility] Comment on above: Performed By: #### C BC #### [facility] [address] [place] [address] Dr. Dallas Wolf Hemoglobin (Bld) [Mass/Vol] 14.5 g/dL Normal 12.0-16.0 [facility] Comment on above: Performed By: #### C BC #### [facility] [address] [place] [address] Dr. Dallas Wolf IG # 0.02 10e3/ul Normal 0.00-0.03 [facility] Comment on above: Performed By: #### C BC #### [facility] [address] [place] [address] Dr. Dallas Wolf IG % 0.3 % Normal 0.0-0.5 [facility] Comment on above: Performed By: #### C BC #### [facility] [address] [address] [address] Dallas Wolf LYMPH # 2.2 103/ul Normal 1.2-3.8 [facility] Comment on above: Performed By: #### C BC #### [facility] [address] [place] [address] Dr. Dallas Wolf Lymphocytes/100 WBC (Bld) 28.1 % Normal 20.5-60.0 [facility] Comment on above: Performed By: #### C BC #### [facility] [address] [place] [address] Dr. Dallas Wolf MANUAL DIFF REQ NO Normal [facility] Comment on above: Performed By: #### C BC #### [facility] [address] [place] [address] Dr. Dallas Wolf MCH (RBC) [Entitic mass] 28.5 pg Normal 26.7-34.0 [facility] Comment on above: Performed By: #### C BC #### [facility] [address] [place] [address] Dr. Dallas Wolf MCHC (RBC) [Mass/Vol] 33.4 g/dL Normal 29.9-35.2 [facility] Comment on above: Performed By: #### C BC #### [facility] [address] [place] [address] Dr. Dallas Wolf MCV (RBC) [Entitic vol] 85.3 fL Normal 81.0-99.0 [facility] Comment on above: Performed By: #### C BC #### [facility] [address] [place] [address] Dr. Dallas Wolf MONO # 0.6 103/ul Normal 0.3-0.8 [facility] Comment on above: Performed By: #### C BC #### [facility] [address] [place] [address] Dr. Dallas Wolf Monocytes/100 WBC (Bld) 7.9 % Normal 1.7-12.0 [facility] Comment on above: Performed By: #### C BC #### [facility] [address] [place] [address] Dr. Dallas Wolf NEUT # 4.6 103/ul Normal 1.4-6.5 [facility] Comment on above: Performed By: #### C BC #### [facility] [address] [place] [address] Dr. Dallas Wolf Neutrophils/100 WBC (Bld) 58.8 % Normal 43.0-75.0 [facility] Comment on above: Performed By: #### C BC #### [facility] [address] [place] [address] Dr. Dallas Wolf Platelet mean volume (Bld) [Entitic vol] 9.6 fL Normal 9.5-13.5 [facility] Comment on above: Performed By: #### C BC #### [facility] [address] [place] [address] Dr. Dallas Wolf PLT 242 103/ul Normal 150-450 [facility] Comment on above: Performed By: #### C BC #### [facility] [address] [place] [address] Dr. Dallas Wolf RBC 5.09 106/ul Normal 4.20-5.40 [facility] Comment on above: Performed By: #### C BC #### [facility] [address] [place] [address] Dr. Dallas Wolf WBC 7.8 103/ul Normal 4.0-11.0 [facility] Comment on above: Performed By: #### C BC #### [facility] [address] [place] [address] Dr. Dallas Wolf PREG QUANT HCGon 06-30-2021 HCG QUANT <1 Normal [facility] Comment on above: Performed By: #### P REGQNT #### [facility] [address] [place] [address] Dr. Dallas Wolf HCG RANGE SEE BELOW Normal [facility] Comment on above: Result Comment: 5-50 0-1 WEEK 40-300 1-2 WEEKS 100-1,000 2-3 WEEKS 500-6,000 3-4 WEEKS 5,000-200,000 1-2 MONTHS 10,000-100,000 2-3 MONTHS 3,000-50,000 2ND TRIMESTER 1,000-50,000 3RD TRIMESTER Performed By: #### P REGQNT #### [facility] [address] [place] [id number] Dallas Wolf Covid-19 PCR ([facility])on 06-12 SARS-CoV-2 (COVID-19) RNA SANJANA+probe Ql (Unsp spec) Not detected Normal NOT DETECTED [facility] Comment on above: Result Comment: This test is not yet approved or cleared by the [place] FDA. When there are no FDA-approved or cleared tests available, and other criteria are met, FDA can make tests available under an emergency access mechanism called an Emergency Use Authorization (EUA). The EUA for this test is supported by the [place] of Health and Human Service's (HHS's) declaration that circumstances exist to justify the emergency use of in vitro diagnostics for the detection and/or diagnosis of the virus that causes COVID-19. This EUA will remain in effect (meaning this test can be used) for the duration of the COVID-19 declaration justifying emergency of IVDs, unless it is terminated or revoked by FDA (after which the test may no longer be used). When diagnostic testing is negative, the possibility of a false negative should be considered in the context of a patient's recent exposures and the presence of clinical signs and symptoms consistent with SARS-CoV-2. Performed By: #### C VDTB #### [facility] [address] [place] [id number] Dallas Wolf Vital Signs Date Time Vital Sign Value Performing Clinician Facility 03-18-2025 10:37-0400 Body mass index (BMI) [Ratio] 33.31 kg/m2 [employer] [employer] Work Phone: [facility] 03-18-2025 10:37-0400 Body weight 93.62 kg [employer] Work Phone: [facility] 03-18-2025 10:37-0400 Diastolic blood pressure 74 mm[Hg] [employer] Work Phone: [facility] 03-18-2025 10:37-0400 Systolic blood pressure 110 mm[Hg] [employer] Work Phone: [facility] 02-18-2025 08:55-0400 Body mass index (BMI) [Ratio] 33.25 kg/m2 Nikunj Jesika DO Work Phone: [facility] 02-18-2025 08:55-0400 Body weight 93.44 kg Nikunj Jesika DO Work Phone: [facility] 02-18-2025 08:55-0400 Diastolic blood pressure 76 mm[Hg] Nikunj Jesika DO Work Phone: [facility] 02-18-2025 08:55-0400 Systolic blood pressure 124 mm[Hg] Nikunj Jesika DO Work Phone: [facility] 01-13-2025 09:14-0400 Body mass index (BMI) [Ratio] 33.89 kg/m2 Patricia Roy SCOURING TRAIN OPERATOR CHIEF Work Phone: [facility] 01-13-2025 09:14-0400 Body weight 95.25 kg Patricia Roy SCOURING TRAIN OPERATOR CHIEF Work Phone: [facility] 01-13-2025 09:14-0400 Diastolic blood pressure 86 mm[Hg] Patricia Roy SCOURING TRAIN OPERATOR CHIEF Work Phone: [facility] 01-13-2025 09:14-0400 Systolic blood pressure 120 mm[Hg] Patricia Roy SCOURING TRAIN OPERATOR CHIEF Work Phone: [facility] 12-01-2024 11:00-0400 Body mass index (BMI) [Ratio] 35.32 kg/m2 Nikunj Jesika DO Work Phone: [facility] 12-01-2024 11:00-0400 Body weight 99.25 kg Nikunj Jesika DO Work Phone: [facility] 12-01-2024 11:00-0400 Diastolic blood pressure 84 mm[Hg] Nikunj Jesika DO Work Phone: [facility] 12-01-2024 11:00-0400 Systolic blood pressure 124 mm[Hg] Nikunj Jesika DO Work Phone: [facility] 02-28-2024 14:07-0400 Body height 167.64 cm [facility] 02-28-2024 14:07-0400 Body mass index (BMI) [Ratio] 35.9 kg/m2 [place] 02-28-2024 14:07-0400 Body weight 101.15 kg [facility] 02-28-2024 14:07-0400 Diastolic blood pressure 98 mm[Hg] [place] 02-28-2024 14:07-0400 Heart rate 102 /min [facility] 02-28-2024 14:07-0400 Systolic blood pressure 133 mm[Hg] [place] 12-05-2023 15:18-0400 Body height 167.64 cm [facility] 12-05-2023 15:18-0400 Body mass index (BMI) [Ratio] 36.8 kg/m2 [place] 12-05-2023 15:18-0400 Body weight 103.41 kg [facility] 12-05-2023 15:18-0400 Diastolic blood pressure 112 mm[Hg] [place] 12-05-2023 15:18-0400 Heart rate 94 /min [facility] 12-05-2023 15:18-0400 Systolic blood pressure 150 mm[Hg] [place] 08-02-2023 11:56-0500 Body height 172.7 cm Annel Yuen SOFTWARE DESIGN ANALYST-SPECIAL DIET COOK Work Phone: [facility] 08-02-2023 11:56-0500 Body mass index (BMI) [Ratio] 35.18 kg/m2 Annel Shresthabritney SOFTWARE DESIGN ANALYST-SPECIAL DIET COOK Work Phone: [facility] [employer] [facility] 08-02-2023 11:56-0500 Body temperature 97.2 [degF] Annel Shresthabritney SOFTWARE DESIGN ANALYST-SPECIAL DIET COOK Work Phone: [facility] [employer] [facility] 08-02-2023 11:56-0500 Body weight 104.96 kg Annel Yuen SOFTWARE DESIGN ANALYST-SPECIAL DIET COOK Work Phone: [employer] 08-02-2023 11:56-0500 Diastolic blood pressure 78 mm[Hg] Annel Yuen APRN-SPECIAL DIET COOK Work Phone: [employer] 08-02-2023 11:56-0500 Heart rate 91 /min Annel Yuen APRN-SPECIAL DIET COOK Work Phone: [employer] 08-02-2023 11:56-0500 SaO2% (BldA) [Mass fraction] 99 % Annel Yuen APRN-SPECIAL DIET COOK Work Phone: [employer] 08-02-2023 11:56-0500 Systolic blood pressure 128 mm[Hg] Annel Yuen APRN-SPECIAL DIET COOK [facility] En[facility] Date Encounter Type Care Provider Facility Start: 04-15-2025 End: 04-15-2025 Bamboo flowsheet Nikunj Jesika DO Work Phone: [facility] Start: 04-15-2025 End: 04-15-2025 Bamboo flowsheet Nikunj Jesika DO Work Phone: [facility] Start: 04-08-2025 End: 04-08-2025 ambulatory SHAGUFTA ONEAL Not Available Start: 03-18-2025 End: 03-20-2025 Clinisync Result Encounter Shagufta MIX Work Phone: [facility] Unsolicited Start: 03-18-2025 End: 03-19-2025 External Result Encounter Shagufta MIX Work Phone: [facility] Unsolicited Start: 03-18-2025 End: 03-20-2025 External Result Encounter Shagufta MIX Work Phone: [facility] Unsolicited Start: 03-18-2025 End: 03-18-2025 flow sheet Shagufta MIX Work Phone: [facility] Comment on above: 17 weeks gestation o f ([facility]); Second trimester ([facility]); Subchorionic hematoma in first trimester, single or unspecified fetus ([facility]); Screening, , for anatomic survey ([facility]); Exposure to STD; Vaginal discharge Start: 03-18-2025 End: 03-18-2025 ambulatory SHAGUFTA ONEAL Not Available Start: 03-04-2025 End: 03-04-2025 ambulatory RAFAEL LARA [facility] Start: 03-04-2025 End: 03-04-2025 Subsequent hospital visit by physician Annel Sanford CNP Work Phone: [facility] Start: 02-18-2025 End: 02-18-2025 Bamboo flowsheet Nikunj Jesika DO Work Phone: [facility] Start: 02-18-2025 End: 02-18-2025 Bamboo flowsheet Nikunj Jesika DO Work Phone: [facility] Start: 02-18-2025 End: 02-18-2025 ambulatory NIKUNJ JESIKA Not Available Start: 02-18-2025 End: 02-18-2025 flow sheet Nikunj Jesika DO Work Phone: [facility] Comment on above: Second trimester pre gnancy ([facility]); 13 weeks gestation of ([facility]) Start: 02-11-2025 End: 02-11-2025 Clinisync Result Encounter Nikunj Jesika DO Work Phone: [facility] Unsolicited Start: 02-11-2025 End: 02-11-2025 Clinisync Result Encounter Nikunj Jesika DO Work Phone: [facility] Unsolicited Start: 01-21-2025 End: 01-21-2025 Clinisync Result Encounter Nikunj Jesika DO Work Phone: [facility] Unsolicited Start: 01-21-2025 End: 01-21-2025 Clinisync Result Encounter Nikunj Jesika DO Work Phone: [facility] Unsolicited Start: 01-21-2025 End: 01-21-2025 Office outpatient visit 5 minutes [facility] Jesika Nurse [facility] Comment on above: GA: 9w0d Start: 01-21-2025 End: 01-21-2025 ambulatory NIKUNJ JESIKA Not Available Start: 01-13-2025 End: 01-13-2025 Bamboo flowsheet Patricia Kirill SCOURING TRAIN OPERATOR CHIEF Work Phone: [facility] Start: 01-13-2025 End: 01-13-2025 Bamboo flowsheet Patricia Kirill SCOURING TRAIN OPERATOR CHIEF Work Phone: [facility] Start: 01-13-2025 End: 01-13-2025 ambulatory PATRICIA KIRILL Not Available Start: 01-13-2025 End: 01-13-2025 Office outpatient visit 15 minutes Patricia Kirill SCOURING TRAIN OPERATOR CHIEF Work Phone: [facility] Comment on above: GA: 7w6d Start: 12-01-2024 End: 12-01-2024 Bamboo flowsheet Nikunj Jesika DO Work Phone: [facility] Start: 12-01-2024 End: 12-01-2024 Clinisync Result Encounter Nikunj Jesika DO Work Phone: [facility] Unsolicited Start: 12-01-2024 End: 12-01-2024 Clinisync Result Encounter Nikunj Jesika DO Work Phone: [facility] External Department Unsolicited Start: 12-01-2024 End: 12-01-2024 Office outpatient visit 15 minutes Nikunj Jesika DO Work Phone: [facility] Comment on above: Female infertility; PCOS (polycystic ovarian syndrome); Abnormal uterine bleeding (AUB); Endometriosis; Insulin resistance Start: 12-01-2024 End: 12-01-2024 ambulatory NIKUNJ JESIKA Not Available Start: 03-25-2024 End: 03-31-2024 Clinisync Result Encounter Nikunj Jesika DO Work Phone: [facility] External Department Unsolicited Start: 03-25-2024 End: 03-31-2024 Clinisync Result Encounter Nikunj Canchola DO Work Phone: [facility] Unsolicited Start: 02-28-2024 End: 02-28-2024 ambulatory [facility] Work Phone: Start: 02-28-2024 End: 02-28-2024 Patient encounter procedure [facility] Work Phone: Start: 12-05-2023 End: 12-05-2023 ambulatory [facility] Work Phone: Start: 12-05-2023 End: 12-05-2023 Patient encounter procedure [facility] Work Phone: Start: 12-03-2023 End: 12-03-2023 Telephone encounter Annel Yuen SOFTWARE DESIGN ANALYST-SPECIAL DIET COOK [facility] Start: 08-02-2023 End: 08-02-2023 Office outpatient visit 15 minutes Annel Yuen SOFTWARE DESIGN ANALYST-SPECIAL DIET COOK [facility] Comment on above: Acute non-recurrent maxillary sinusitis (Primary Dx); Non-recurrent acute serous otitis media of both ears; Elevated blood pressure reading Start: 01-10-2023 End: 01-11-2023 [facility] Start: 01-10-2023 End: 01-10-2023 Subsequent hospital visit by physician Annel Yuen APRN - SUPERVISOR GENERAL Work Phone: [facility] Start: 02-26-2022 End: 02-26-[address] NIKUNJ CANCHOLA Facility:[facility] Start: 07-03-2021 Encounter for preprocedural laboratory examination DR NIKUNJ CANCHOLA [facility] Start: 06-30-2021 End: 06-30-[address] NIKUNJ CANCHOLA Facility:[facility] Start: 06-27-2021 Encounter for other preprocedural examination DR NIKUNJ CANCHOLA [facility] Start: 06-27-2021 End: 06-28-[address] NIKUNJ CANCHOLA Facility:[facility] Start: 06-27-2021 End: 06-28-2021 Encounter for preprocedural laboratory examination DR NIKUNJ CANCHOLA Facility:[facility] Start: 06-21-2021 End: 06-22-[address] NIKUNJ CANCHOLA Facility:[facility] Start: 06-21-2021 End: 06-22-2021 Encounter for other preprocedural examination DR NIKUNJ CANCHOLA Facility:[facility] Procedures Date Procedure Procedure Detail Performing Clinician Start: 03-18-2025 AFP, SERUM, OPEN SPI NA BIFIDA Shagufta MIX Work Phone: Start: 03-18-2025 RECURRENT VAGINITIS (HTRX) Shagufta MIX Work Phone: Start: 03-18-2025 Urnls dip stick/tabl et rgnt non-auto w/o micrscp Shagufta MIX Work Phone: Start: 02-18-2025 Urnls dip stick/tabl et rgnt non-auto w/o micrscp Nikunj Jesika DO Work Phone: Start: 02-11-2025 US OB TRANSVAGINAL Core y Jesika DO Work Phone: Start: 01-21-2025 MLR HEMOGLOBIN A1C Core y Jesika DO Work Phone: Start: 01-21-2025 End: 01-21-2025 Urnls dip stick/tablet rgnt non-auto w/o micrscp Nikunj Jesika DO Work Phone: Start: 01-13-2025 Urnls dip stick/tabl et rgnt non-auto w/o micrscp Patricia Roy SCOURING TRAIN OPERATOR CHIEF Work Phone: Start: 12-01-2024 ALL CBC WITH AUTO DIFF Nikunj Jesika DO Work Phone: Start: 12-01-2024 End: 12-01-2024 Urnls dip stick/tablet rgnt non-auto w/o micrscp Nikunj Jesika DO Work Phone: Start: 03-25-2024 IGP,APTIMA HPV,AGE GDLN Nikunj Jesika DO Work Phone: Start: 08-02-2023 Adult depression scr eening assessment Annel Yuen SOFTWARE DESIGN ANALYST-SPECIAL DIET COOK Work Phone: Start: 03-05-2023 Microscopic observat ion [Identifier] in Cervix by Cyto stain Annel Yuen SOFTWARE DESIGN ANALYST-[facility] Work Phone: Start: 01-10-2023 Comprehensive metabo lic panel Unknown Provider Result Plan of Treatment Date Care Activity Detail Author Start: 03-05-2026 Screening for malign ant neoplasm of cervix Pap Smear [facility] Start: 04-15-2025 End: 04-15-2025 Patient encounter procedure [facility] Comment on above: Arrived Start: 04-12-2025 Influenza vaccination N [facility] Start: 04-08-2025 End: 04-08-2025 Professional / ancillary services management 04/08/2025 8:00 AM EDT Ancillary Procedure [facility] [address] [place] [phone] [facility] Start: 04-05-2025 End: 04-05-2025 Patient encounter procedure 04/05/2025 10:20 AM EDT Office Visit [facility] [address] [phone] Nikunj Canchola, DO [address], [place] [id number] [facility] Start: 03-18-2025 End: 04-18-2025 Alpha fetoprotein, maternal Alpha fetoprotein, maternal Lab Routine 17 weeks gestation of ([facility]) Second trimester ([facility]) Expected: 03/18/2025 (Approximate), Expires: 04/18/2025 [facility] Comment on above: Expected: 03/18/2025 (Approximate), Expires: 04/18/2025 Start: 03-18-2025 End: 06-18-2025 US for US OB 14+ weeks anatomy scan Imaging Routine Screening, , for anatomic survey ([facility]) Expected: 03/18/2025, Expires: 06/18/2025 [facility] Comment on above: Expected: 03/18/2025 , Expires: 06/18/2025 Start: 03-18-2025 End: 03-18-2025 Patient encounter procedure 03/18/2025 10:30 AM EDT Routine [facility] [address] [place] [phone] Shagufta Oneal PA [address] [place], [place] [phone] [facility] Start: 03-18-2025 End: 03-18-2025 Professional / ancillary services management 03/18/2025 10:00 AM EDT Ancillary Procedure [facility] [address] [place] [phone] [facility] Start: 03-12-2025 Influenza vaccination Flu vaccine (# 1) [facility] Start: 02-18-2025 End: 02-18-2025 Patient encounter procedure 02/18/2025 8:40 AM EDT Routine [facility] [address] [place] [phone] Nikunj Canchola DO [address] [place] [address] [facility] Start: 01-21-2025 End: 01-21-2026 ABO/Rh ABO/Rh Lab Routine Missed menses , unspecified gestational age ([facility]) Expected: 01/21/2025 (Approximate), Expires: 01/21/2026 [facility] Comment on above: Expected: 01/21/2025 (Approximate), Expires: 01/21/2026 Start: 01-21-2025 End: 01-21-2025 ambulatory 01/21/2025 2:00 PM EDT Initial [facility] [address] [place] [phone] [facility] Start: 01-21-2025 End: 01-21-2026 Blood type and Indirect antibody screen panel - Blood Type and screen Lab Routine Missed menses , unspecified gestational age ([facility]) Expected: 01/21/2025 (Approximate), Expires: 01/21/2026 [facility] Work Phone: Comment on above: Expected: 01/21/2025 (Approximate), Expires: 01/21/2026 Start: 01-21-2025 End: 01-21-2026 Drugs of abuse panel - Urine by Screen method Rapid drug screen, urine Lab Routine , unspecified gestational age ([facility]) Encounter for supervision of normal first in first trimester ([facility]) Expected: 01/21/2025 (Approximate), Expires: 01/21/2026 [facility] Comment on above: Expected: 01/21/2025 (Approximate), Expires: 01/21/2026 Start: 01-21-2025 End: 01-21-2025 Professional / ancillary services management 01/21/2025 1:30 PM EDT Ancillary Procedure [facility] [address] [place] [phone] [facility] Start: 12-17-2024 End: 12-17-2024 Professional / ancillary services management 12/17/2024 8:00 AM EDT Ancillary Procedure [facility] [address] [place] [phone] [facility] Start: 12-01-2024 End: 12-01-2025 Antimullerian hormone (AMH) Antimullerian hormone (AMH) Lab Routine Abnormal uterine bleeding (AUB) Endometriosis Expected: 12/01/2024 (Approximate), Expires: 12/01/2025 [facility] Comment on above: Expected: 12/01/2024 (Approximate), Expires: 12/01/2025 Start: 12-01-2024 End: 12-01-2025 DHEA DHEA Lab Routine PCOS (polycystic ovarian syndrome) Expected: 12/01/2024 (Approximate), Expires: 12/01/2025 [facility] Comment on above: Expected: 12/01/2024 (Approximate), Expires: 12/01/2025 Start: 12-01-2024 End: 12-01-2025 US Pelvis US Pelvis w/ TV Imaging Routine PCOS (polycystic ovarian syndrome) Expected: 12/01/2024, Expires: 12/01/2025 [facility] Comment on above: Expected: 12/01/2024 , Expires: 12/01/2025 Start: 08-02-2024 Adult BMI Screening Adult BMI Screen ing [facility] Start: 08-02-2024 Depression Screening Depression Scre ening [facility] Start: 08-02-2024 Tobacco Screening Tobacco Screening [facility] Start: 04-12-2024 COVID-19 Vaccine ( season) COVID-19 Vaccine ( season) [facility] Start: 04-12-2024 Influenza vaccination [facility] Start: 03-05-2024 Adult BMI Follow Up Plan Adult BMI Follow Up Plan [facility] Start: 03-05-2024 Adult BMI Screening Adult BMI Screen ing [facility] Start: 03-05-2024 Screening for Chlamy deysi trachomatis Chlamydia Screening [facility] Comment on above: Postponed from 09/20 (Not Indicated) Start: 04-12-2023 Influenza vaccination Influenza Vacc ine [facility] Start: 03-12-2023 Influenza vaccination [facility] vacc ine ([facility] Ended) [facility] Start: 04-23-2022 DTaP,Tdap and Td Vaccines (7 - Td or Tdap) DTaP,Tdap and Td Vaccines (7 - Td or Tdap) [facility] Start: 2018 DTaP/Tdap/Td vaccine (1 - Tdap) DTaP/Tdap/Td vaccine (1 - Tdap) [facility] Start: 03-20-2000 COVID-19 Vaccine (#1) COVID-19 Vacci ne (#1) [facility] Bacteria identified in Urine by Culture Urine culture Microbiology Routine Missed menses Ordered: 01/21/2025 [facility] Comment on above: Ordered: 01/21/2025 CBC W Auto Different ial panel - Blood CBC and differential Lab Routine PCOS (polycystic ovarian syndrome) Ordered: 12/01/2024 [facility] Comment on above: Ordered: 12/01/2024 CBC W Auto Different ial panel - Blood CBC and differential Lab Routine Missed menses , unspecified gestational age ([facility]) Ordered: 01/21/2025 [facility] Comment on above: Ordered: 01/21/2025 CHLAMYDIA TRACHOMATI S (GENITO/STI) CHLAMYDIA TRACHOMATIS (GENITO/STI) Lab Routine Exposure to STD Ordered: 03/18/2025 [facility] Comment on above: Ordered: 03/18/2025 DHEA-sulfate DHEA-sulfate Lab Routine PCOS (polycystic ovarian syndrome) Ordered: 12/01/2024 [facility] Comment on above: Ordered: 12/01/2024 Follicle stimulating hormone Follicle stimulating hormone Lab Routine PCOS (polycystic ovarian syndrome) Ordered: 12/01/2024 [facility] Comment on above: Ordered: 12/01/2024 hCG, quantitative, hCG, quantitative, Lab Routine PCOS (polycystic ovarian syndrome) Ordered: 12/01/2024 [facility] Work Phone: Comment on above: Ordered: 12/01/2024 Hemoglobin A1c/Hemoglobin.total in Blood Hemoglobin A1c Lab Routine Abnormal uterine bleeding (AUB) Endometriosis Ordered: 12/01/2024 [facility] Comment on above: Ordered: 12/01/2024 Hemoglobin A1c/Hemoglobin.total in Blood Hemoglobin A1c Lab Routine Missed menses , unspecified gestational age ([facility]) Ordered: 01/21/2025 [facility] Comment on above: Ordered: 01/21/2025 Hepatitis B virus surface Ag [Presence] in Serum or Plasma by Immunoassay Hepatitis B surface antigen Lab Routine Missed menses , unspecified gestational age ([facility]) Ordered: 01/21/2025 [facility] Comment on above: Ordered: 01/21/2025 Hepatitis C virus Ab [Presence] in Serum or Plasma by Immunoassay Hepatitis C antibody Lab Routine Missed menses , unspecified gestational age ([facility]) Ordered: 01/21/2025 [facility] Comment on above: Ordered: 01/21/2025 HIV-1/HIV-2 antigen/antibody combination immunoassay HIV-1 and HIV-2 antibodies Lab Routine Missed menses , unspecified gestational age ([facility]) Ordered: 01/21/2025 [facility] Comment on above: Ordered: 01/21/2025 Luteinizing hormone Luteinizing hormone Lab Routine PCOS (polycystic ovarian syndrome) Ordered: 12/01/2024 [facility] Comment on above: Ordered: 12/01/2024 Neisseria gonorrhoea e DNA [Presence] in Unspecified specimen by SANJANA with probe detection Neisseria gonorrhea DNA probe, direct Lab Routine Exposure to STD Ordered: 03/18/2025 [facility] Comment on above: Ordered: 03/18/2025 End: 03-04-2025 Quantiferon TB Gold [facility] Work Phone: Comment on above: Once for 1 Occurrenc es starting 03/04/2025 until 03/04/2025 Reagin Ab [Presence] in Serum by RPR RPR Lab Routine Missed menses , unspecified gestational age ([facility]) Ordered: 01/21/2025 [facility] Comment on above: Ordered: 01/21/2025 Rubella antibody, IgG Rubella an tibody, IgG Lab Routine Missed menses , unspecified gestational age ([facility]) Ordered: 01/21/2025 [facility] Comment on above: Ordered: 01/21/2025 SURESWAB(R) ADVANCED VAGINITIS PLUS, TMA SURESWAB(R) ADVANCED VAGINITIS PLUS, TMA Pathology and Cytology Routine Vaginal discharge Ordered: 03/18/2025 [facility] Work Phone: Comment on above: Ordered: 03/18/2025 Thyrotropin [Units/volume] in Serum or Plasma TSH Lab Routine PCOS (polycystic ovarian syndrome) Ordered: 12/01/2024 [facility] Comment on above: Ordered: 12/01/2024 Thyroxine (T4) free [Mass/volume] in Serum or Plasma T4, free Lab Routine PCOS (polycystic ovarian syndrome) Ordered: 12/01/2024 [facility] Comment on above: Ordered: 12/01/2024 Immunizations Immunization Date Immunization Notes Care Provider Lizeth simon 05-14-2022 influenza, injectabl e, quadrivalent, preservative free Annel Yuen SOFTWARE DESIGN ANALYST-SPECIAL DIET COOK Work Phone: [facility] 05-14-2022 influenza virus vacc ine, unspecified formulation Annel Yuen SOFTWARE DESIGN ANALYST-SPECIAL DIET COOK Work Phone: [facility] 09-16-2020 COVID-19, mRNA, LNP- S, PF, 100mcg/0.5mL Dose Annel Yuen SOFTWARE DESIGN ANALYST-SPECIAL DIET COOK Work Phone: [facility] 08-19-2020 COVID-19, mRNA, LNP- S, PF, 100mcg/0.5mL Dose Annel Yuen SOFTWARE DESIGN ANALYST-SPECIAL DIET COOK Work Phone: [facility] 06-03-2020 influenza, injectabl e, quadrivalent, preservative free Annel Yuen SOFTWARE DESIGN ANALYST-SPECIAL DIET COOK Work Phone: [facility] 03-08-2017 hepatitis A vaccine, pediatric/adolescent dosage, 2 dose schedule Annel Yuen SOFTWARE DESIGN ANALYST-SPECIAL DIET COOK Work Phone: [facility] 03-08-2017 Human Papillomavirus 9-valent vaccine Annel Yuen SOFTWARE DESIGN ANALYST-SPECIAL DIET COOK Work Phone: [facility] 03-08-2017 meningococcal oligosaccharide (groups A, C, Y and W-135) diphtheria toxoid conjugate vaccine (MCV4O) Annel Yuen SOFTWARE DESIGN ANALYST-SPECIAL DIET COOK Work Phone: [facility] 06-10-2012 human papilloma viru s vaccine, quadrivalent Annel Yuen SOFTWARE DESIGN ANALYST-SPECIAL DIET COOK Work Phone: [facility] 06-10-2012 meningococcal polysaccharide (groups A, C, Y and W-135) diphtheria toxoid conjugate vaccine (MCV4P) Annel Yuen SOFTWARE DESIGN ANALYST-SPECIAL DIET COOK Work Phone: [facility] 06-10-2012 varicella virus vaccine Annel Yuen SOFTWARE DESIGN ANALYST-SPECIAL DIET COOK Work Phone: [facility] 04-23-2012 hepatitis A vaccine, pediatric/adolescent dosage, 2 dose schedule Annel Yuen SOFTWARE DESIGN ANALYST-SPECIAL DIET COOK Work Phone: [facility] 04-23-2012 human papilloma viru s vaccine, quadrivalent Annel Yuen SOFTWARE DESIGN ANALYST-SPECIAL DIET COOK Work Phone: [facility] 04-23-2012 tetanus toxoid, redu kaylyn diphtheria toxoid, and acellular pertussis vaccine, adsorbed Annel Yuen SOFTWARE DESIGN ANALYST-SPECIAL DIET COOK Work Phone: [facility] 02-15-2005 diphtheria, tetanus toxoids and acellular pertussis vaccine, unspecified formulation Annel Yuen SOFTWARE DESIGN ANALYST-SPECIAL DIET COOK Work Phone: [facility] 02-15-2005 measles, mumps and rubella virus vaccine Annel Yuen SOFTWARE DESIGN ANALYST-SPECIAL DIET COOK Work Phone: [facility] 02-15-2005 poliovirus vaccine, inactivated Annel Yuen SOFTWARE DESIGN ANALYST-SPECIAL DIET COOK Work Phone: [facility] 12-05-2000 diphtheria, tetanus toxoids and acellular pertussis vaccine, unspecified formulation Annel Yuen SOFTWARE DESIGN ANALYST-SPECIAL DIET COOK Work Phone: [facility] 12-05-2000 haemophilus influenz ae type b conjugate and Hepatitis B vaccine Annel Yuen SOFTWARE DESIGN ANALYST-SPECIAL DIET COOK Work Phone: [facility] 12-05-2000 measles, mumps and rubella virus vaccine Annel Yuen SOFTWARE DESIGN ANALYST-SPECIAL DIET COOK Work Phone: [facility] 12-05-2000 poliovirus vaccine, inactivated Annel Yuen SOFTWARE DESIGN ANALYST-SPECIAL DIET COOK Work Phone: [facility] 12-05-2000 varicella virus vaccine Annel Yuen SOFTWARE DESIGN ANALYST-SPECIAL DIET COOK Work Phone: [facility] 04-11-2000 diphtheria, tetanus toxoids and acellular pertussis vaccine, unspecified formulation Annel Yuen SOFTWARE DESIGN ANALYST-SPECIAL DIET COOK Work Phone: [facility] 04-11-2000 haemophilus influenz ae type b vaccine, PRP-OMP conjugate Annel Yuen SOFTWARE DESIGN ANALYST-SPECIAL DIET COOK Work Phone: [facility] 02-01-2000 diphtheria, tetanus toxoids and acellular pertussis vaccine, unspecified formulation Annel Yuen SOFTWARE DESIGN ANALYST-SPECIAL DIET COOK Work Phone: [facility] 02-01-2000 haemophilus influenz ae type b conjugate and Hepatitis B vaccine Annel Yuen SOFTWARE DESIGN ANALYST-SPECIAL DIET COOK Work Phone: [facility] 02-01-2000 poliovirus vaccine, inactivated Annel Yuen SOFTWARE DESIGN ANALYST-SPECIAL DIET COOK Work Phone: [facility] 1999 diphtheria, tetanus toxoids and acellular pertussis vaccine, unspecified formulation Annel Yuen SOFTWARE DESIGN ANALYST-SPECIAL DIET COOK Work Phone: [facility] 1999 haemophilus influenz ae type b conjugate and Hepatitis B vaccine Annel Yuen SOFTWARE DESIGN ANALYST-SPECIAL DIET COOK Work Phone: [facility] 1999 poliovirus vaccine, inactivated Annel Yuen SOFTWARE DESIGN ANALYST-SPECIAL DIET COOK Work Phone: [facility] Payers Date Payer Category Payer Unknown [id number] 2024 [facility] [id number] 2024 Unknown [id number] 2024 Unknown [id number] 2022 Unknown [id number] 2022 Medicaid [id number] 2020 Private Health Insurance [employer] [id number] 2020 Unknown [id number]. [id number] 1999 Unknown [id number] 2.16.840.1.940257.3.579.2. 593 1999 Unknown [id number] 2.16.840.1.588670.3.579.2. 593 1999 Unknown [id number] 2.16.840.1.256288.3.579.2. 593 1999 Unknown [id number] 2.16.840.1.248223.3.579.2. 593 1999 Unknown [id number] 2.16.840.1.746664.3.579.2. 754 1999 Unknown [id number] 2.16.840.1.284076.3.579.2. 173 1999 Unknown [id number] 2.16.840.1.625720.3.579.2. 1259 1999 Unknown [id number] 2.16.840.1.523489.3.579.2. 1259 1999 Unknown [id number] 2.16.840.1.308552.3.579.2. 1259 1999 Unknown [id number] 2.16.840.1.714357.3.579.2. 1259 1999 Unknown [id number] 2.16.840.1.279772.3.579.2. 1259 1999 Unknown [id number] 2.16.840.1.587979.3.579.2. 1259 1999 Unknown [id number] 2.16.840.1.782449.3.579.2. 1259 1999 Unknown [id number] 2.16.840.1.373158.3.579.2. 1259 1959 Private Health Insurance [id number] 1959 Unknown [id number] 1959 Unknown [id number] Unknown Regular Insurance [id number] Social History Date Type Detail [facility] Work Phone: Start: 1999 Sex Assigned At Not on file W MARIO Work Phone: Start: 03-03-2023 End: 12-05-2023 Tobacco smoking status OHIS Never smoked tobacco (finding) [place] Start: 1999 Sex Assigned At Female [facility] Start: 03-25-2024 End: 03-18-2025 Alcoholic beverage intake Lifetime non-drinker (finding) [facility] Start: 08-25-2020 End: 03-25-2024 History of Social function [facility] Start: 08-25-2020 End: 03-25-2024 Tobacco use panel [facility] Start: 03-05-2023 Tobacco use and exposure Smokeless tobacco non-user [facility] Start: 08-02-2023 Alcohol intake Ex-drinker (finding) [facility] How hard is it for y ou to pay for the very basics like food, housing, medical care, and heating Not hard at all [facility] Start: 05-04-2022 Gender identity Identifies as female gender (finding) [facility] Start: 12-03-2024 [facility] Start: 01-10-2023 Sex Female (finding) [facility] Clinical Notes 06-30-2021 to 03-18-2025 DOMINGUEZ Villagran - 03/18/2025 10:30 AM Kevin Arango LPN - 02/18/2025 8:40 AM Zane Gross MA - 01/21/2025 2:00 PM Iesha Roy NP - 01/13/2025 9:00 AM EDT Note Date & Type Note Facility 03-18-2025 History of Presen t illness Narrative Reason for Appointment: Patient ID: Yenifer Templeton is a 24 y.o. female who presents for Routine Visit Patient presents today for Return OB appointment. And cultures MEDICATIONS Current Outpatient Medications Medication Instructions ondansetron ODT (ZOFRAN-ODT) 4 mg, Every 8 hours PRN 27-1 MG tablet 1 tablet, Daily ALLERGIES No Known Allergies PROBLEMS Active Ambulatory Problems Diagnosis Date Noted No Active Ambulatory Problems Resolved Ambulatory Problems Diagnosis Date Noted No Resolved Ambulatory Problems Past Medical History: Diagnosis Date Anxiety Endometriosis HISTORY PAST MEDICAL HISTORY SOCIAL HISTORY Past Medical History: Diagnosis Date Anxiety Endometriosis Social History Tobacco Use Smoking status: Never Smokeless tobacco: Not on file Substance Use Topics Alcohol use: Never Drug use: Not on file FAMILY HISTORY Family History Problem Relation Name Age of Onset Hypertension Father Hyperlipidemia Father SURGICAL HISTORY Past Surgical History: Procedure Laterality Date PAP SMEAR 09/26/2020 normal PELVIC LAPAROSCOPY REVIEW OF SYSTEMS Review of Systems: Review of Systems Constitutional: Negative. HENT: Negative. Eyes: Negative. Respiratory: Negative. Cardiovascular: Negative. Gastrointestinal: Negative. Genitourinary: Negative. Musculoskeletal: Negative. Skin: Negative. Neurological: Negative. All other systems reviewed and are negative. Hematological: Negative. Endocrine: Negative. Allergic/Immunologic: Negative. OBJECTIVE Objective: Physical Exam Constitutional: Appearance: Normal appearance. She is normal weight. HENT: Head: Normocephalic. Cardiovascular: Rate and Rhythm: Normal rate. Pulses: Normal pulses. Pulmonary: Effort: Pulmonary effort is normal. Breath sounds: Normal breath sounds. Abdominal: Palpations: Abdomen is soft. Musculoskeletal: General: Normal range of motion. Neurological: General: No focal deficit present. Mental Status: She is alert and oriented to person, place, and time. Psychiatric: Mood and Affect: Mood normal. Behavior: Behavior normal. Thought Content: Thought content normal. Judgment: Judgment normal. Vitals and nursing note reviewed. Vitals: Estimated body mass index is 33.31 kg/m as calculated from the following: Height as of 09/24/19: 5' 6 . Weight as of this encounter: 206 lb 6.4 oz. BP: 110/74 Patient's last menstrual period was 11/19/2024 (approximate). ASSESSMENT & PLAN ICD-10-CM 1. 17 weeks gestation of ([facility]) Z3A.17 POCT urinalysis dipstick manually resulted Alpha fetoprotein, maternal Alpha fetoprotein, maternal 2. Second trimester ([facility]) Z34.92 POCT urinalysis dipstick manually resulted Alpha fetoprotein, maternal Alpha fetoprotein, maternal 3. Subchorionic hematoma in first trimester, single or unspecified fetus ([facility]) O41.8X10 O46.8X1 4. Screening, , for anatomic survey ([facility]) Z36.89 US OB 14+ weeks anatomy scan US OB 14+ weeks anatomy scan 5. Exposure to STD Z20.2 CHLAMYDIA TRACHOMATIS (GENITO/STI) Neisseria gonorrhea DNA probe, direct 6. Vaginal discharge N89.8 SURESWAB(R) ADVANCED VAGINITIS PLUS, TMA Return OB: Patient presents today for a routine obstetrics appointment. Patient is currently 17w0d . Patient states she is doing well but has complaints of being tired due to current . Orders Placed This Encounter Procedures US OB 14+ weeks anatomy scan CHLAMYDIA TRACHOMATIS (GENITO/STI) Neisseria gonorrhea DNA probe, direct Alpha fetoprotein, maternal POCT urinalysis dipstick manually resulted Cultures obtained, pap in future as has had pap mar Follow Up: Patient is to return to office in 4 week for routine OB appointment. Documented by DOMINGUEZ Villagran on behalf of: DOMINGUEZ Villagran documented in this encounter [facility] 03-18-2025 Note ADDENDUM #1 Current examination demonstrated an incomplete anatomical evaluation, recommend follow-up imaging to evaluate spine, profile and for three-vessel cord. TRANSCRIBED BY: ELECTRONICALLY SIGNED BY: Miguel Thompson MD FINDINGS: A single, live intrauterine is present [...] is 361 grams (0 pounds, 13 ounces). IMPRESSION: Single, live intrauterine , current sonographic age of 20 weeks and 3 days, with an estimated date of delivery of August 23, 2025. * Estimated Weight (g) by Percentile is based upon an accurate estimated age based on last menstrual period. TRANSCRIBED BY: ELECTRONICALLY SIGNED BY: Miguel Thompson MD Not Available Comment on above: Order Comment: US OB ANATOMY SINGLE W US OB CERVICAL LENGTH Estimated Date of Delivery: 08/26/25 Gestational Age as of 03/18/2025: 17w0d 02-18-2025 History of Presen t illness Narrative Reason for Appointment: Patient ID: Yenifer Templeton is a 24 y.o. female who presents for Routine Visit Patient presents today for Return OB appointment. MEDICATIONS Current Outpatient Medications Medication Instructions metoclopramide (REGLAN) 10 mg, Oral, 3 times daily before meals, Take 1 tablet by mouth 30 minutes prior to meals 3 times daily as needed for nausea. 27-1 MG tablet 1 tablet, Daily ALLERGIES No Known Allergies PROBLEMS Active Ambulatory Problems Diagnosis Date Noted No Active Ambulatory Problems Resolved Ambulatory Problems Diagnosis Date Noted No Resolved Ambulatory Problems Past Medical History: Diagnosis Date Anxiety Endometriosis HISTORY PAST MEDICAL HISTORY SOCIAL HISTORY Past Medical History: Diagnosis Date Anxiety Endometriosis Social History Tobacco Use Smoking status: Never Smokeless tobacco: Not on file Substance Use Topics Alcohol use: Never Drug use: Not on file FAMILY HISTORY Family History Problem Relation Name Age of Onset Hypertension Father Hyperlipidemia Father SURGICAL HISTORY Past Surgical History: Procedure Laterality Date PAP SMEAR 09/26/2020 normal PELVIC LAPAROSCOPY REVIEW OF SYSTEMS Review of Systems: Review of Systems Constitutional: Negative. HENT: Negative. Eyes: Negative. Respiratory: Negative. Cardiovascular: Negative. Gastrointestinal: Negative. Genitourinary: Negative. Musculoskeletal: Negative. Skin: Negative. Neurological: Negative. All other systems reviewed and are negative. Hematological: Negative. Endocrine: Negative. Allergic/Immunologic: Negative. OBJECTIVE Objective: Physical Exam Constitutional: Appearance: Normal appearance. She is well-developed. Cardiovascular: Rate and Rhythm: Normal rate and regular rhythm. Pulmonary: Effort: Pulmonary effort is normal. Breath sounds: Normal breath sounds. Abdominal: General: Bowel sounds are normal. There is no distension. Palpations: Abdomen is soft. Tenderness: There is no abdominal tenderness. There is no guarding or rebound. Musculoskeletal: General: No swelling. Normal range of motion. Right lower leg: No edema. Left lower leg: No edema. Neurological: Mental Status: She is alert and oriented to person, place, and time. Skin: General: Skin is warm and dry. Psychiatric: Mood and Affect: Mood normal. Behavior: Behavior normal. Vitals and nursing note reviewed. Exam conducted with a scrap cutter present. Vitals: Estimated body mass index is 33.25 kg/m as calculated from the following: Height as of 09/24/19: 5' 6 . Weight as of this encounter: 206 lb. BP: 124/76 Patient's last menstrual period was 11/19/2024 (approximate). ASSESSMENT & PLAN ICD-10-CM 1. Second trimester ([facility]) Z34.92 POCT urinalysis dipstick manually resulted 2. 13 weeks gestation of ([facility]) Z3A.13 New OB: Patient presents today for 1st time obstetrics appointment with provider. Patient is currently 13w0d . Patients history has been reviewed in great detail including any potential risks. Patient stated she currently has no complaints. Expectations throughout regarding labs, ultrasounds, and appointments have been discussed with the patient in detail. It was reiterated that the patient is to drink 6-8 glasses of water a day, eat 6 small meals a day, do not consume raw or undercooked meat, and stay away from [facility]. Patient has been consulted regarding any further do's and don'ts of . Patient voiced understanding and all questions and concerns were answered. Patient advised that she is able to call office to schedule sneek peek if needed. Orders Placed This Encounter Procedures POCT urinalysis dipstick manually resulted Follow Up: Patient is to return in 4 weeks for routine OB appointment. Documented by Chelsie Arango LPN on behalf of: Nikunj Canchola DO documented in this encounter [facility] 01-21-2025 History of Presen t illness Narrative Reason for Appointment: Patient ID: Yenifer Templeton is a 24 y.o. female who presents for Amenorrhea Patient presents today for a Nurse OB Intake appointment. Patient is 9w0d with a Estimated Date of Delivery: 08/26/25 OB History Para Term AB Living 1 0 0 0 0 0 SAB IAB Ectopic Multiple Live Births 0 0 0 0 0 # Outcome Date GA Lbr Prashant/2nd Weight Sex Type Anes PTL Lv 1 Current Current Medications: has a current medication list which includes the following prescription(s): docusate sodium, metoclopramide, ondansetron odt, and . Medical History: Active Ambulatory Problems Diagnosis Date Noted No Active Ambulatory Problems Resolved Ambulatory Problems Diagnosis Date Noted No Resolved Ambulatory Problems Past Medical History: Diagnosis Date Anxiety Endometriosis Family History Problem Relation Name Age of Onset Hypertension Father Hyperlipidemia Father Social History Tobacco Use Smoking status: Never Smokeless tobacco: Not on file Substance Use Topics Alcohol use: Never Drug use: Not on file Past Surgical History: Procedure Laterality Date PAP SMEAR 09/26/2020 normal PELVIC LAPAROSCOPY No Known Allergies Vitals: Estimated body mass index is 33.89 kg/m as calculated from the following: Height as of 09/24/19: 5' 6 . Weight as of 01/13/25: 210 lb. BP: Patient's last menstrual period was 11/19/2024 (approximate). Assessment/Plan Diagnoses and all orders for this visit: Amenorrhea Missed menses - Type and screen; Future - ABO/Rh; Future - CBC and differential - Hemoglobin A1c - RPR - Rubella antibody, IgG - Hepatitis B surface antigen - Hepatitis C antibody - HIV-1 and HIV-2 antibodies - Urine culture - POCT , urine manually resulted - POCT urinalysis dipstick manually resulted , unspecified gestational age ([facility]) - Type and screen; Future - ABO/Rh; Future - CBC and differential - Hemoglobin A1c - RPR - Rubella antibody, IgG - Hepatitis B surface antigen - Hepatitis C antibody - HIV-1 and HIV-2 antibodies - Rapid drug screen, urine; Future Encounter for supervision of normal first in first trimester ([facility]) - Rapid drug screen, urine; Future Nurse Note: Pt unsure of doing the Waite billion to one lab. Advised if patient changes mind to make sure both labs and Waite done at the same time. PVU. OB Intake: Patient presents today for first OB visit. Patients history has been reviewed in great detail including any potential risks. Patient signed consent forms and patient desires testing in both trimesters. Patient currently has no complaints and has been advised to drink 6-8 glasses of water a day, eat no raw or undercooked meat, and stay away from [facility]. Patient has also been advised to not change litter boxes and eat 6 small meals a day. Patient has been consulted regarding the do's and don'ts of . Patient was given labs and all questions and concerns were answered. Follow Up: Patient is to return in 4 weeks for routine OB appointment. Follow Up: Patient is to have labs drawn at directed and return to office for initial OB appointment with provider. Patient may call office as needed with any concerns or questions. Nurse Visit Completed by: Cris Gross MA documented in this encounter [facility] 01-13-2025 History of Presen t illness Narrative Reason for Appointment: Patient ID: Yenifer Templeton is a 24 y.o. female who presents for Routine Visit Patient presents today for Acute Visit. MEDICATIONS Current Outpatient Medications Medication Instructions docusate sodium (COLACE) 100 mg, Oral, 2 times daily metoclopramide (REGLAN) 10 mg, Oral, 3 times daily before meals, Take 1 tablet by mouth 30 minutes prior to meals 3 times daily as needed for nausea. ondansetron ODT (ZOFRAN-ODT) 4 mg, Oral, Every 6 hours PRN 27-1 MG tablet 1 tablet, Daily ALLERGIES No Known Allergies PROBLEMS Active Ambulatory Problems Diagnosis Date Noted No Active Ambulatory Problems Resolved Ambulatory Problems Diagnosis Date Noted No Resolved Ambulatory Problems Past Medical History: Diagnosis Date Anxiety Endometriosis HISTORY PAST MEDICAL HISTORY SOCIAL HISTORY Past Medical History: Diagnosis Date Anxiety Endometriosis Social History Tobacco Use Smoking status: Never Smokeless tobacco: Not on file Substance Use Topics Alcohol use: Never Drug use: Not on file FAMILY HISTORY Family History Problem Relation Name Age of Onset Hypertension Father Hyperlipidemia Father SURGICAL HISTORY Past Surgical History: Procedure Laterality Date PAP SMEAR 09/26/2020 normal PELVIC LAPAROSCOPY REVIEW OF SYSTEMS Review of Systems: Review of Systems Constitutional: Positive for unexpected weight change. Weight loss since learning of . Gastrointestinal: Positive for nausea and vomiting. OBJECTIVE Objective: Physical Exam Constitutional: Appearance: Normal appearance. She is well-developed. Cardiovascular: Rate and Rhythm: Normal rate and regular rhythm. Pulmonary: Effort: Pulmonary effort is normal. Breath sounds: Normal breath sounds. Abdominal: General: Bowel sounds are normal. There is no distension. Palpations: Abdomen is soft. Tenderness: There is no abdominal tenderness. There is no guarding or rebound. Musculoskeletal: General: No swelling. Normal range of motion. Right lower leg: No edema. Left lower leg: No edema. Neurological: Mental Status: She is alert and oriented to person, place, and time. Skin: General: Skin is warm and dry. Psychiatric: Mood and Affect: Mood normal. Behavior: Behavior normal. Vitals and nursing note reviewed. Exam conducted with a scrap cutter present. Vitals: Estimated body mass index is 33.89 kg/m as calculated from the following: Height as of 09/24/19: 5' 6 . Weight as of this encounter: 210 lb. BP: 120/86 Patient's last menstrual period was 11/19/2024 (approximate). ASSESSMENT & PLAN ICD-10-CM 1. Nausea and vomiting during O21.9 metoclopramide (Reglan) 10 MG tablet 2. Currently in first trimester with unknown gestational age Z34.91 POCT urinalysis dipstick manually resulted metoclopramide (Reglan) 10 MG tablet 3. Constipation, unspecified constipation type K59.00 docusate sodium (Colace) 100 MG capsule Patient reports nausea and vomiting since learning of . She reached out to our office and was placed on Zofran and scheduled for today's office visit. She reports improvement in nausea and vomiting and has been able to keep down her meals. She is feeling better. She is complaining of some associated constipation as well and we will prescribe colace. We discussed the use of Reglan prior to meals and continue Zofran. She is scheduled for her OB intake appointment on 01/21/25. She will reach out to our office if symptoms do not improve and we will discuss Zofran pump. Documented by Patricia Roy NP on behalf of: Patricia Roy NP documented in this encounter [facility] 12-01-2024 History of Presen t illness Narrative Reason for Appointment: Patient ID: Yenifer Templeton is a 24 y.o. female who presents for Infertility Patient presents today for Fertility Follow Up appointment. MEDICATIONS Current Outpatient Medications Medication Instructions loratadine (CLARITIN) 10 mg, Daily Multiple Vitamin (multivitamin) tablet 1 tablet, Daily 27-1 MG tablet 1 tablet, Daily ALLERGIES No Known Allergies PROBLEMS Active Ambulatory Problems Diagnosis Date Noted No Active Ambulatory Problems Resolved Ambulatory Problems Diagnosis Date Noted No Resolved Ambulatory Problems Past Medical History: Diagnosis Date Anxiety Endometriosis HISTORY PAST MEDICAL HISTORY SOCIAL HISTORY Past Medical History: Diagnosis Date Anxiety Endometriosis Social History Tobacco Use Smoking status: Never Smokeless tobacco: Not on file Substance Use Topics Alcohol use: Never Drug use: Not on file FAMILY HISTORY Family History Problem Relation Name Age of Onset Hypertension Father Hyperlipidemia Father SURGICAL HISTORY Past Surgical History: Procedure Laterality Date PAP SMEAR 09/26/2020 normal PELVIC LAPAROSCOPY REVIEW OF SYSTEMS Review of Systems: Review of Systems Constitutional: Negative. HENT: Negative. Eyes: Negative. Respiratory: Negative. Cardiovascular: Negative. Gastrointestinal: Negative. Genitourinary: Negative. Musculoskeletal: Negative. Skin: Negative. Neurological: Negative. All other systems reviewed and are negative. Hematological: Negative. Endocrine: Negative. Allergic/Immunologic: Negative. OBJECTIVE Objective: Physical Exam Constitutional: Appearance: Normal appearance. She is well-developed. Cardiovascular: Rate and Rhythm: Normal rate and regular rhythm. Pulmonary: Effort: Pulmonary effort is normal. Breath sounds: Normal breath sounds. Abdominal: General: Bowel sounds are normal. There is no distension. Palpations: Abdomen is soft. Tenderness: There is no abdominal tenderness. There is no guarding or rebound. Musculoskeletal: General: No swelling. Normal range of motion. Right lower leg: No edema. Left lower leg: No edema. Neurological: Mental Status: She is alert and oriented to person, place, and time. Skin: General: Skin is warm and dry. Psychiatric: Mood and Affect: Mood normal. Behavior: Behavior normal. Vitals and nursing note reviewed. Exam conducted with a scrap cutter present. Vitals: Estimated body mass index is 35.32 kg/m as calculated from the following: Height as of 09/24/19: 5' 6 . Weight as of this encounter: 218 lb 12.8 oz. BP: 124/84 Patient's last menstrual period was 11/23/2024. ASSESSMENT & PLAN ICD-10-CM 1. Female infertility N97.9 POCT , urine manually resulted POCT urinalysis dipstick manually resulted Patient presents today to discuss fertility. Patient was given a standing lab order and ultrasound to have obtained. Patient was instructed to call the office once menstrual cycle begins so femara can be called into patients pharmacy. Patient has been instructed to take Femara on days 3-7 of cycle. On day 21 of cycle patient is to have progesterone labs drawn. Patient was advised to have intercourse on days 12, 14, 16, 18, and 20 of cycle. We will do three rounds of Femara and if patient has not conceived by then, we will perform HSG. Patient has voiced understanding and will call our office for any further questions/concerns. Orders Placed This Encounter Procedures US Pelvis w/ TV hCG, quantitative, TSH T4, free CBC and differential Follicle stimulating hormone Luteinizing hormone Hemoglobin A1c DHEA-sulfate DHEA Antimullerian hormone (AMH) POCT , urine manually resulted POCT urinalysis dipstick manually resulted Follow Up: 4 months Documented by Misa Knight LPN on behalf of: Nikunj Canchola DO documented in this encounter [facility] 12-03-2023 Miscellaneous Notes ----- Message from Annel Yuen APRN-CAIT sent at 03/05/2023 5:31 PM EDT ----- Regarding: wellness exam Due December - Annel Patient is switching [facility]cp [facility] Telephone encounter Note ----- Message from Annel Yuen APRN-[employer] sent at 03/05/2023 5:31 PM EDT ----- Regarding: wellness exam Due December - [facility] 12-03-2023 Telephone encounter Note [facility] History of Presen t illness Narrative Subjective Patient ID: Yenifer Antonio is a 22 y.o. female. Started with sinus pressure and fever on Saturday and Saturday She started with ear pressure and pain and some intermittent dizziness on Saturday No nausea or vomiting She has tried dayquil and nyquil and zycam Sore throat with a feeling of something stuck in her throat Raspy, harsh cough Her father recently had a stroke around thanksgiving since that time she has been checking her blood pressure in the afternoon and often finds it around 150/80s She has been modifying her diet since that time and has been trying to eat healthier She has been very anxious about what occurred with her father The following portions of the patient's history were reviewed and updated as appropriate: allergies, current medications, past family history, past medical history, past social history, past surgical history, problem list, and medication reconciliation was completed including current medication and post discharge medication. Review of Systems Constitutional: Positive for fatigue. HENT: Positive for congestion, ear pain, postnasal drip, sinus pressure, sinus pain and sore throat. Eyes: Negative. Respiratory: Positive for cough. Negative for shortness of breath. Cardiovascular: Negative. Gastrointestinal: Negative. Endocrine: Negative. Genitourinary: Negative. Musculoskeletal: Negative. Skin: Negative. Allergic/Immunologic: Negative. Neurological: Negative. Hematological: Negative. Psychiatric/Behavioral: Negative. Objective Physical Exam Vitals and nursing note reviewed. Constitutional: Appearance: She is obese. HENT: Right Ear: A middle ear effusion is present. Left Ear: A middle ear effusion is present. Ears: Comments: Both tms are pink, opaque, no light reflex present Nose: Congestion and rhinorrhea present. Comments: Swollen, erythematous nasal mucosa Mouth/Throat: Pharynx: Posterior oropharyngeal erythema (with heavy PND) present. Eyes: Conjunctiva/sclera: Conjunctivae normal. Cardiovascular: Rate and Rhythm: Normal rate and regular rhythm. Pulses: Normal pulses. Heart sounds: Normal heart sounds. No murmur heard. Pulmonary: Effort: Pulmonary effort is normal. Breath sounds: Normal breath sounds. Musculoskeletal: Cervical back: Neck supple. No tenderness. Right lower leg: No edema. Left lower leg: No edema. Lymphadenopathy: Cervical: No cervical adenopathy. Skin: General: Skin is warm and dry. Capillary Refill: Capillary refill takes less than 2 seconds. Neurological: Mental Status: She is alert and oriented to person, place, and time. Psychiatric: Mood and Affect: Mood normal. Thought Content: Thought content normal. Judgment: Judgment normal. Assessment/Plan Yenifer was seen today for ear ache. Diagnoses and all orders for this visit: Acute non-recurrent maxillary sinusitis Non-recurrent acute serous otitis media of both ears - loratadine-pseudoephedrine (CLARITIN-D 24-hour) 10-240 mg per 24 hr tablet; Take 1 tablet by mouth in the morning for 10 days. Elevated blood pressure reading Other orders - amoxicillin-pot clavulanate (AUGMENTIN) 875-125 mg per tablet; Take 1 tablet by mouth in the morning and 1 tablet before bedtime. Do all this for 7 days. - predniSONE (DELTASONE) 20 mg tablet; Take 1 tablet (20 mg total) by mouth in the morning for 7 days. Take with food. Will treat her sinus infection and serous otitis as listed above We discussed her elevated blood pressure readings and reviewed some other in office readings this year as todays was normal, all have been right around 130/80 She is asked to decrease sodium intake Work to loose weight, increase fluids and exercise and continue to monitor for now YASMINE Singh 08/02/23 1251 documented in this encounter [facility] 06-30-2021 Note The [place], [place] NAME: YENIFER ANTONIO DATE OF : MEDICAL REC#: [id number] DIALYSIS REGISTERED NURSE: NIKOLAS FERNANDEZADMIT DATE: 06/30/2021 09:48:00 SAFETY CONSULTANT DATE: 06/30/2021 20:15 DICTATING PHYSICIAN: NIKUNJ CANCHOLA DICTATION DATE: 06/30/2021 12:00 OPERATIVE NOTE OPERATION DATE: 06/30/2021 PROCEDURE NAME: Diagnostic laparoscopy. PREOPERATIVE DIAGNOSES: 1. Pelvic pain. 2. Menorrhagia. 3. Dysmenorrhea. POSTOPERATIVE DIAGNOSES: 1. Pelvic pain. 2. Menorrhagia. 3. Dysmenorrhea. 4. Endometriosis posterior cul-de-sac. ANESTHESIA: General. SURGEON: Nikunj Canchola DO ORE DIGGER: CECILIO Mendoza URINE OUTPUT: Yellow and clear. SPECIMENS: None. FINDINGS: Normal-appearing ovaries, uterus and tubes. Small amount of endometriosis posterior cul-de-sac. PROCEDURE NOTE: The patient was taken back to the Operating Room where she was placed in dorsal lithotomy position after given general anesthesia. The patient was prepped and draped in normal sterile fashion. A sponge stick was placed into the patient's vagina. Attention was turned to the patient's abdomen, where a small umbilical incision was made. The fascia was tented using Paulette clamps and the fascia was entered sharply. Confirmation of intraabdominal placement of the 10 mm port was confirmed under direct visualization using a laparoscope. The patient's abdomen was then insufflated using CO2 gas with approximately 4 liters. A second port was placed suprapubically two fingerbreadths above the symphysis pubis, this was done under direct visualization with a 5 mm port. Survey of the patient's abdomen demonstrated normal liver and gallbladder. Survey of the patient's pelvic anatomy demonstrated normal appearing ovaries and tubes as well as normal appearing uterus. endometrial implants posterior culdesac could be noted, no evidence of any pelvic disease was seen, normal appearing pelvic cavity. All instruments were removed from the patient's abdomen. The patient's abdomen was insufflated using CO2 gas. The patient tolerated the procedure well. Sponge stick was removed from the patient's vagina. The patient's infraumbilical fascia was closed using #0 Vicryl on a GI needle. The patient's skin was closed suprapubically and infraumbilically using 4-0 Vicryl. The patient tolerated the procedure well. Sponge, lap and needle counts were correct x 2. The patient taken to Recoery Room in stable condition. Electronically Authenticated and Edited by: Nikunj Canchola DO on 07/03/2021 09:18 AM [facility] Signed and Approved by: DR NIKUNJ CANCHOLA . 07/03/2021 09:18:00 [facility] Evaluation note No assessment inform ation available [facility] Work Phone: Evaluation note Diagnosis Onset Date Anxiety and depression acute [facility] Work Phone: Evaluation note* Diagnosis Acute non-recurrent maxillary sinusitis- Primary Non-recurrent acute serous otitis media of both ears Elevated blood pressure reading Elevated blood pressure reading without diagnosis of hypertension documented in this encounter [facility]* Diagnosis Female infertility Female infertility of unspecified origin PCOS (polycystic ovarian syndrome) Polycystic ovaries Abnormal uterine bleeding (AUB) Endometriosis Endometriosis, site unspecified Insulin resistance Other abnormal glucose [facility] Diagnosis Amenorrhea Absence of menstruation Missed menses , unspecified gestational age ([facility]) Encounter for supervision of normal first in first trimester ([facility]) [facility] Diagnosis Nausea and vomiting during - Primary Currently in first trimester with unknown gestational age Constipation, unspecified constipation type [facility]* Diagnosis Second trimester ([facility]) state, incidental 13 weeks gestation of ([facility]) [facility]* Diagnosis 17 weeks gestation of ([facility]) Second trimester ([facility]) state, incidental Subchorionic hematoma in first trimester, single or unspecified fetus ([facility]) Screening, , for anatomic survey ([facility]) Encounter for anatomic survey Exposure to STD Vaginal discharge Leukorrhea, not specified as infective documented in this encounter [facility] HealthcareInstructionsNot on filedocumented in this encounterProGerman [facility] SystemInstructionsNot on filedocumented in this encounterProGerman Hospital System Summary Purpose Family History Relationship Condition Age at Onset Recorded Date/T terra Not Specified Malignant neoplasm Unknown Not Specified Heart disease Unknown Myocardial infarction Unknown father Hypertension Unknown Cerebrovascular accident (CVA) Unknown Relationship Condition Age at Onset Recorded Date/T terra paternal grandfather Malignant neoplasm Unknown paternal grandmother Heart disease Unknown Myocardial infarction Unknown father Hypertension Unknown Cerebrovascular accident (CVA) Unknown Advance Directives Advance Directive Response Recorded Date/ Time Advance Directives No November 24, 2 024 9:39am Chief Complaint and Reason for Visit Chief Complaint Establish Chief Complaint Establish discuss weight loss medication Reason for Visit Anxiety and depressi on Additional Source Comments INFORMATION SOURCE (unrecogn ized section and content) DATE CREATED AUTHOR 06/13/2022 [facility] DATE CREATED AUTHOR AUTHOR'S ORGANIZ ATION 08/09/2023 [facility] DATE CREATED AUTHOR AUTHOR'S ORGANIZ ATION 03/07/2025 [facility] DATE CREATED AUTHOR AUTHOR'S ORGANIZ ATION 04/14/2025 [facility] Care Teams (unrecognized sec tion and content) Gaming Host Relationship Specialty Start Date End Date Annel Yuen SOFTWARE DESIGN ANALYST - SUPERVISOR GENERAL [address] [place] [address] PCP - General Nurse Practitioner 01/10/23 Team Status: Active Member Role Status Dates Michelle Pabon MD Primary Care Provider Active Team Status: Inactive Member Role Status Dates Michelle Pabon MD Primary Care Provide r, Attending Provider Active Start: December 05, 2023 End: December 05, 2023 Team Status: Inactive Member Role Status Dates Michelle Pabon MD Primary Care Provide r, Attending Provider Active Start: February 28, 2024 End: February 28, 2024 Gaming Host Relationship Specialty Start Date End Date Michelle Pabon MD [address] [place] [phone] PCP - General Family Medicine 03/25/24 Gaming Host Relationship Specialty Start Date End Date Annel Yuen, SOFTWARE DESIGN ANALYST-SPECIAL DIET COOK [address] [place] [address] PCP - General Family Medicine 01/18/20 Gaming Host Relationship Specialty Start Date End Date Michelle Pabon MD [address] [facility] [place] [address] PCP - General Family Medicine 03/25/24 Gaming Host Relationship Specialty Start Date End Date Michelle Pabon MD [address] [facility] [address] PCP - General Family Medicine 03/25/24 Gaming Host Relationship Specialty Start Date End Date Michelle Pabon MD [address] [facility] [phone] PCP - General Family Medicine 03/25/24 Gaming Host Relationship Specialty Start Date End Date Michelle Pabon MD [address] [facility] [address] PCP - General Family Medicine 03/25/24 Gaming Host Relationship Specialty Start Date End Date Michelle Pabon MD [address] [facility] [address] PCP - General Family Medicine 03/25/24 Gaming Host Relationship Specialty Start Date End Date Michelle Pabon MD [address] [facility] [phone] PCP - General Family Medicine 03/25/24 Gaming Host Relationship Specialty Start Date End Date Michelle Pabon MD [address] [facility] [address] PCP - General Family Medicine 03/25/24 Gaming Host Relationship Specialty Start Date End Date Michelle Pabon MD [address] [facility] [address] PCP - General Family Medicine 03/25/24 Gaming Host Relationship Specialty Start Date End Date Michelle Pabon MD [address] [facility] [address] PCP - General Family Medicine 03/25/24 Gaming Host Relationship Specialty Start Date End Date Annel Yuen, SOFTWARE DESIGN ANALYST - SUPERVISOR GENERAL [address] [place] [address] PCP - General Nurse Practitioner 01/10/23 Gaming Host Relationship Specialty Start Date End Date Michelle Pabon MD [address] [facility] [address] PCP - General Family Medicine 03/25/24 Gaming Host Relationship Specialty Start Date End Date Michelle Pabon MD [address] [facility] [address] PCP - General Family Medicine 03/25/24 Gaming Host Relationship Specialty Start Date End Date Michelle Pabon MD [address] [place] [address] PCP - General Family Medicine 03/25/24 Goals (unrecognized section and content) Goals may be documented in a n alternate sectionGoals may be documented in an alternate sectionNot on filedocumented as of this encounterNot on filedocumented as of this encounter Reason for Visit (unrecogniz ed section and content) Reason Comments ear ache Couple days. Feels l maki ear plugs Reason Comments Infertility Reason Comments Amenorrhea Reason Comments Routine Visit FOR RECORDS PERTAINING TO PATIENTS WHO ARE OR HAVE BEEN ENROLLED IN A CHEMICAL DEPENDENCY/SUBSTANCEABUSE PROGRAM, SOME INFORMATION MAY BE OMITTED. This clinical summary was aggregated from multiple sources. Caution should be exercised in using it in the provision of clinical care. This summary normalizes information from multiple sources, and as a consequence, information in this document may materially change the coding, format and clinical context of patient data. In addition, data may be omitted in some cases. CLINICAL DECISIONS SHOULD BE BASED ON THE PRIMARY CLINICAL RECORDS. [facility]. provides no warranty or guarantee of the accuracy or completeness of information in this document.
[2025-04-19 09:09] LABS: Age Gdln ACOG Testing Note (.); IGP, rfx Aptima HPV ASCU Note (.)
== END 2025-04-15 14:43 | disposition home or self-care (01) ==
LOC: LAB 14:42
PROVIDERS: PCP Family Medicine; Visit Provider Obstetrics & Gynecology
DX: Z01.419 Encounter for gynecological examination (general) (routine) without abnormal findings (principal)
CPT/HCPCS: 88175

== ENCOUNTER 2025-05-26 06:44 | Outpatient (OUT) | payer OTHER, SELFPAY ==
--- OUTSIDE RECORDS SUMMARY | 2025-05-26 06:55 | XMS_ITS | CCD ---
Author Organization [facility] Care Team Providers Care Broom Handle Dipper Name Role Phone JESIKA, DR CALVIN Primary [...] Unavailable JESIKA, DR CALVIN Attending Unavailable Malick APPRENTICE FUNERAL DIRECTOR - EARLY EDUCATION TEACHER, Annel Kern Primary Care Provider ANNEL YUEN Referring Unavailable MALICK, ANNEL Kern Primary Care Unavailable Michelle Pabon MD Primary Care Provider [phone] Malick APPRENTICE FUNERAL DIRECTOR-PIERCING ARTIST, Annel Heath Primary Care Provider Unavailable Primary Care Provider UnavailMichelle Edward MD Primary Care Provider Michelle Pabon MD Primary Care Provider Malick APPRENTICE FUNERAL DIRECTOR - EARLY EDUCATION TEACHER, Annel Kern Primary Care Provider RAFEAL LARA Referring Unavailable ANNEL YUEN Primary Care Unavailable NIKUNJ CANCHOLA Attending Unavailable PATRICIA ROY Attending Unavailable NIKUNJ CANCHOLA Attending Unavailable SHAGUFTA ONEAL Attending Unavailable SHAGUFTA ONEAL Referring Unavailable NIKUNJ CANCHOLA Attending Unavailable PATRICIA ROY Attending Unavailable Medications Current Medications Medication Drug Class(es) [...] 01/13/2025 Discontinued metoclopramide 10 mg oral tablet (16 sources) Dopamine-2 Receptor Antagonist Start: 04-15-2025 End: 05-15-2025 metoclopramide (Reglan) 10 MG tablet Indications: Nausea and vomiting during ([facility]) Take 1 tablet (10 mg) by mouth in the morning and 1 tablet (10 mg) at noon and 1 tablet (10 mg) in the evening. Take before meals. Take 1 tablet by mouth 30 minutes prior to meals 3 times daily as needed for nausea. 90 tablet 1 04/15/2025 05/15/2025 Active Start: 01-13-2025 End: 03-18-2025 metroNIDAZOLE 0.0075 mg/mg vaginal gel (3 sources) Nitroimidazole Antimicrobial Start: 05-10-2025 End: 05-15-2025 metroNIDAZOLE (Metrogel) 0.75 % vaginal gel Indications: BV (bacterial vaginosis) Insert into the vagina Daily for 5 days 70 g 05/10/2025 05/15/2025 Active Multiple Vitamin (multivitamin) tablet (6 sources) End: 01-13-2025 take 1 tablet by mouth once daily Multiple Vitamin (multivitamin) tablet Take 1 tablet by mouth Daily 01/13/2025 Discontinued take 1 tablet by mouth once luciano y Multiple Vitamin (multivitamin) tablet Take 1 tablet by mouth Daily Active 24 hr NIFEdipine 30 mg extended release oral tablet (2 sources) Dihydropyridine Calcium Channel Pasquale Start: 10-20-2024 take 1 tablet by mouth once daily, then take 1 tablet by mouth every twenty-four hours NIFEdipine CC (Adalat CC) 30 MG 24 hr tablet Take 30 mg by mouth Daily 10/20/2024 Active ondansetron 4 mg disintegrating oral tablet (16 sources) Serotonin-3 Receptor Antagonist Start: 02-22-2025 take [...] disintegrating tablet Indications: Nausea and vomiting during ([facility]) Take 1 tablet (4 mg) [...] 0 08/02/2023 08/09/2023 Active 27-1 MG tablet (20 sources) take 1 tablet by mouth once daily 27-1 MG tablet Take 1 tablet by mouth Daily Active Semaglutide (Weight Loss) (1 source) Start: 02-28-2024 Semaglutide (Weight Loss) (Wegovy) 0.25 mg/0.5 mL pen injector Active 0.25 MG SUBCUT every week February 28, 2024 12:00am administer weeks 1 [...] DULoxetine 60 mg delayed release oral capsule (7 sources) Serotonin and Norepinephrine Reuptake Inhibitor Start: 12-05-2023 End: 12-18-2023 take 1 capsule by mouth once daily Duloxetine (Cymbalta) 30 mg capsule,delayed release(DR/EC) Discontinued 30 MG PO Daily 14 December 05, 2023 12:00am December 18, 2023 1:01pm Start: 01-09-2023 End: 12-05-2023 take 1 capsule by mouth once daily Duloxetine (Cymbalta) 60 mg capsule,delayed release(DR/EC) Discontinued 60 MG PO Daily December 05, 2023 12:00am December 05, 2023 4:15pm ethinyl estradiol 0.035 mg / norgestimate 0.25 [...] Onset: 01-09-2023 01-09-2023 Chronic Other complications of (4 sources) Vomiting of , unspecified; Translations: [Unspecified [...] unspecified] 12-01-2024 Chronic Other female genital disorders (4 sources) Vaginal discharge; Translations: [Other specified noninflammatory disorders of vagina] 03-18-2025 Episodic Other gastrointestinal disorders (2 sources) Constipation; Translations: [Constipation, unspecified] 01-13-2025 Episodic Other nutritional; endocrine; and metabolic disorders (1 source) Obesity, unspecified; Translations: [OBESITY UNSPECIFIED] Onset: 07-05-2021 Chronic Other nutritional; endocrine; and metabolic disorders (2 sources) Insulin resistance; Translations: [Insulin resistance] 12-01-2024 Chronic Other and delivery including normal (12 sources) ; Translations: [Encounter for supervision of normal , unspecified, unspecified trimester] 01-21-2025 Episodic Other screening for suspected conditions (not mental disorders or infectious disease) (8 sources) Encounter for screening for malignant neoplasm [...] [17 weeks gestation of ] 03-18-2025 Episodic Residual codes; unclassified (2 sources) Gestation period, 21 weeks; Translations: [21 weeks gestation of ] 04-15-2025 Episodic Residual codes; unclassified (2 sources) Gestation period, 24 weeks; Translations: [24 weeks gestation of ] 05-12-2025 Episodic Unclassified (1 source) CONTACT W/AND (SUSP) [...] Test Name Value Interpretation Reference Range Facility Urinalysis macro (dipstick) panel (U)on 05-12-2025 Bilirubin, UA Negative Negative - 4(70) +++ mg/dL [facility] Blood, UA Negative Negative - 50 Randall/mcL [facility] Clarity, UA Clear [facility] Color, UA Yellow [facility] Glucose, UA Negative Negative - 1999(110) ++++ mg/dL [facility] Interpretation and review of laboratory results Abnormal [facility] Ketones, UA Negative Negative - 160(16) ++++ mg/dL [facility] Leukocytes, UA 3+ Negative - 500+++ Johnson/mcL [facility] Nitrite, UA Negative Negative - Positive [facility] pH, UA 8.5 5 - 9 [facility] Protein, UA Trace Negative - 1999(20) ++++ mg/dL [facility] Spec Grav, UA 1.01 1 - 1.03 [facility] Urobilinogen, UA 2.0 0.2 - 12 mg/dL [facility] IGP,APTIMA HPV,AGE GDLNon AGE GDLN ACOG TESTING Note . [facility] Comment on above: TESTS RESULT FLAG UN ITS REF RANGE LAB Clinician Provided Cytology Information Source.............Endocervix Other.............. No. of containers..01 ThinPrep Vial Age Algo ACOG Millie... FLAG LEGEND: L-Low Normal,H-High Normal,LL-Alert Low,HH-Alert High <-Panic Low,>-Panic High,A-Abnormal,AA-Critical Abnormal Performed at: 01 [facility] [address] [place] [address] Beverly Nguyen MD, IGP, RFX APTIMA HPV ASCU Note . [facility] Comment on above: TESTS RESULT FLAG UN ITS REF RANGE LAB DIAGNOSIS: 02 NEGATIVE FOR INTRAEPITHELIAL LESION OR MALIGNANCY. FUNGAL ORGANISMS MORPHOLOGICALLY CONSISTENT WITH ROSALBA SPECIES ARE PRESENT. Specimen adequacy: 02 Satisfactory for evaluation. Endocervical and/or squamous metaplastic cells (endocervical component) are present. Performed by: Pricila Beckham, Morning Show Newscast Producer ([facility]) . 02 Note: Note 02 [...] <-Panic Low,>-Panic High,A-Abnormal,AA-Critical Abnormal Performed at: [address] [address] Beverly Nguyen MD, Performed at: =[address] [id number] [employer]house: Beverly Nguyen MD, Phone: [phone] Performed at: [address] [id number] [employer]house: Beverly Nguyen MD, Phone: [phone] [facility] AFP, SERUM, OPEN SPINA BIFID Aon 03-20-2025 AFP MOM 1.10 . [facility] AFP VALUE 34.4 ng/mL . [facility] COMMENT: Comment . [facility] Comment on above: Giselle Merida , Ph.D., [facility] Director References: Available Upon Request. Multiples Of Median Cutoffs For AFP Elevations Sellers 2.5 Black 2.8 IDD 2.0 Twins 4.5 Abbreviation Definitions IDD - Insulin Dep Diabetes OSBR - Open Spina Bifida Risk For further inquiries contact [facility] at [phone]. This test was developed and its performance characteristics determined by [facility]. It has not been cleared or approved by the Food and Drug Administration. Performed at: [facility] [address] [place], [place] [id number] Lab[employer]house: Nirmal Means [facility], Phone: [phone] GEST. AGE ON COLLECTION DATE 17.0 . weeks [facility] GESTAT. AGE BASED ON LMP . [facility] Comment on above: Recalculations are n ot recommended when gestational dating by LMP and ultrasound are within 10 days. INSULIN DEP DIABETES No . [facility] INTERPRETATION Comment . [facility] Comment on above: Interpretation: Scre en [...] Customer Services to discuss available options. [employer] [place] [employer] recommends amniocentesis be offered to women age 35 and older. [age]OL [age] [facility] MULTIPLE GESTATION No . [facility] OSBR RISK 1 IN 8932 . [facility] RACE . [facility] RESULTS Report . [facility] TEST RESULTS: Negative . [facility] WEIGHT 206 . lbs [facility] N N LMP [id number] 17 N 1 Y 206 N N N N N White/ [facility] RECURRENT VAGINITIS (HTRX)on 03-19-2025 ATOPOBIUM VAGINAE 0 [facility] ATOPOBIUM VAGINAE Not detected [facility] BVAB 2,3 (BACTERIAL VAGINOSIS ASSOCIATED BACTERIA 2, 3); MOBILUNCUS SPP 0 [facility] BVAB 2,3 (BACTERIAL VAGINOSIS ASSOCIATED BACTERIA 2, 3); MOBILUNCUS SPP Not detected [facility] ROSALBA ALBICANS, PARAPSILOSIS, TROPICALIS 26.725 Abnormal [facility] ROSALBA ALBICANS, PARAPSILOSIS, TROPICALIS Detected Abnormal [facility] ROSALBA GLABRATA 0 [facility] ROSALBA GLABRATA Not detected [facility] ROSALBA KRUSEI 0 [facility] ROSALBA KRUSEI Not detected [facility] CHLAMYDIA TRACHOMATIS 0 [facility] CHLAMYDIA TRACHOMATIS Not detected [facility] GARDNERELLA VAGINALIS 17.732 Abnormal [facility] GARDNERELLA VAGINALIS Detected Abnormal [facility] Interpretation and review of laboratory results Abnormal [facility] MEGASPHAERA (TYPES 1, 2) 0 [facility] MEGASPHAERA (TYPES 1, 2) Not detected [facility] MYCOPLASMA GENITALIUM 0 [facility] MYCOPLASMA GENITALIUM Not detected [facility] NEISSERIA GONORRHOEAE 0 [facility] NEISSERIA GONORRHOEAE Not detected N [facility] TRICHOMONAS VAGINALIS 0 [facility] TRICHOMONAS VAGINALIS Not detected N [facility] US OB LIMITED 1+ FETUSESon 0 03-18-2025 [...] UA Negative Negative - 4(70) +++ mg/dL [facility] Blood, UA Negative Negative - 50 Randall/mcL [facility] Clarity, UA Clear [facility] Color, UA Yellow [facility] Glucose, UA Negative Negative - 2000(110) ++++ mg/dL [facility] Interpretation and review of laboratory results Abnormal [facility] Ketones, UA Negative Negative - 160(16) ++++ mg/dL [facility] Leukocytes, UA Positive Negative - 500+++ Johnson/mcL [facility] Comment on above: 3+ Nitrite, UA Negative Negative - Positive [facility] pH, UA 7 5 - 9 [facility] Protein, UA Negative Negative - 2000(20) ++++ mg/dL [facility] Spec Grav, UA 1.02 1 - 1.03 [facility] Urobilinogen, UA 1.0 0.2 - 12 mg/dL [facility] QuantiFERON Tbon 03-06-2025 QFT Inter Negative Normal NEG [facility] Comment on above: Result Comment: Quantiferon [...] Mycobacterium tuberculosis Infection -- [place], 2010 (http://www.cdc.gov/mmwr/preview/mmwrhtml/lp7841m9.htm), for more information concerning test performance in low-prevalence populations and use in occupational screening. Performed By: #### Q FTB #### [address] [address] Lab[employer]house: Lance Chester MD Quant Juan minus NIL 9.92 IU/mL [facility] Comment on above: Performed By: #### Q FTB #### [address] [address] Lab[employer] Powerhouse: Lance Chester MD Quanti TB1 minus NIL 0.00 IU/mL Normal 0.00-0.34 [facility] Comment on above: Performed By: #### Q FTB #### [address] [address] Laborer Powerhouse: Lance Chester MD Quanti TB2 minus NIL 0.00 IU/mL [place] 0.00-0.34 [facility] Comment on above: Performed By: #### Q FTB #### [address] [address] Lab[employer] Powerhouse: Lance Chester MD QuantiFERON NIL 0.08 IU/mL [facility] Comment on above: Performed By: #### Q FTB #### [address] [address] Lab[employer] Powerhouse: Lance Chester MD Urinalysis macro (dipstick) panel (U)on 02-18-2025 Bilirubin, UA Negative Negative - 4(70) +++ mg/dL [facility] Blood, UA Negative Negative - 50 Randall/mcL [facility] Clarity, UA Clear [facility] Color, UA Yellow [facility] Glucose, UA Negative Negative - 2000(110) ++++ mg/dL [facility] Interpretation and review of laboratory results Normal [facility] Ketones, UA Negative Negative - 160(16) ++++ mg/dL [facility] Leukocytes, UA Positive Negative - 500+++ Johnson/mcL [facility] Comment on above: large Nitrite, UA Negative Negative - Positive [facility] pH, UA 7 5 - 9 [facility] Protein, UA Negative Negative - 1999(20) ++++ mg/dL [facility] Spec Grav, UA 1.015 1 - 1.03 [facility] Urobilinogen, UA 0.2 0.2 - 12 mg/dL [facility] US OB TRANSVAGINALon [address] [place] [address] Ultrasound Report Signed Patient: YENIFER TEMPLETON MR#: [id number] : 2000 Acct:[id number] Age/Sex: 24 / F ADM Date: 02/11/25 Loc: US Attending Dr: Nikunj Canchola D.O. Ordering Physician: Nikunj Canchola D.O. Date of Service: 02/11/25 Procedure(s): US OB transvaginal Accession Number(s): [id number] cc: Michelle Pabon M.D.; Nikunj Canchola D.O. [place] [address] Patient Name: YENIFER TEMPLETON MRN: [id number] date: 2000 Sex: F Assigned Patient Location: US Current Patient Location: US Accession/Order Number: [id number] Exam Date: 02/11/2025 09:39 Report Date: 02/11/2025 [...] Gillette M.D. 02/11/2025 9:43 AM Dictation Location: [place] [address] Electronically authenticated by: [id number] Y Date: 02/11/2025 09:43 Dictated By: Misa Gillette M.D. Signed By: 02/11/2546 DD/ 2 TD/TT: Log Sawyer: [facility] Radiology, Radiologist, MD - 02/11/2025 [place] [address] Ultrasound Report Signed Patient: YENIFER TEMPLETON MR#: [id number] : 2000 Acct:[id number] Age/Sex: 24 / F ADM Date: 02/11/25 Loc: US Attending Dr: Nikunj Canchola D.O. Ordering Physician: Nikunj Canchola D.O. Date of Service: 02/11/25 Procedure(s): US OB transvaginal Accession Number(s): [id number] cc: Michelle Pabon M.D.; Nikunj Canchola D.O. The [address] [address] Patient Name: YENIFRE TEMPLETON MRN: [facility]:[id number] date: 2000 Sex: F Assigned Patient Location: US Current Patient Location: US Accession/Order Number: [id number] Exam Date: 02/11/2025 09:39 Report Date: 02/11/2025 [...] Gillette M.D. 02/11/2025 9:43 AM Dictation Location: [place] [address] Electronically authenticated by: [id number] Y Date: 02/11/2025 09:43 Dictated By: Misa Gillette M.D. Signed By: 02/11/25 0946 DD/ 0943 TD/TT: Log Sawyer: [facility] Radiology Study observation (narrative) [facility] OB TRANSVAGINALOrdered By : Radiologist Radiology on 02-11-2025 [facility] Work Phone: HCG ( test) Ql (U)o n 01-21-2025 Interpretation and review of laboratory results Abnormal [facility] Preg Test, Ur Positive Negative [facility] MLR HEMOGLOBIN A1Con 025 Glucose [Mass/Vol] 91 mg/dL [facility] HbA1c (Bld) [Mass fraction] 4.8 % 4.5 - 6.2 % [facility] Comment on above: ADA RECOMMENDED LIMI T 4.0 - 6.0 ADA THERAPEUTIC TARGET < 7.0 ACTION SUGGESTED > 7.0 [facility] US OB TRANSVAGINALon 025 US OB TRANSVAGINAL EXAM: [...] II, MD, PHD at 22-Jan-2025 10:24:02 AM [facility] [place] [employer] Normal Not Available Comment on above: Order Comment: US OB TRANSVAGINAL Patient's last menstrual period was 11/19/2024 (approximate). Urinalysis macro (dipstick) panel (U)on 01-21-2025 Bilirubin, UA Negative Negative - 4(70) +++ mg/dL [facility] Blood, UA Negative Negative - 50 Randall/mcL [facility] Clarity, UA Clear [facility] Color, UA Yellow [facility] Glucose, UA Negative Negative - 2000(110) ++++ mg/dL [facility] Interpretation and review of laboratory results Normal [facility] Ketones, UA Negative Negative - 160(16) ++++ mg/dL [facility] Leukocytes, UA Trace Negative - 500+++ Johnson/mcL [facility] Nitrite, UA Negative Negative - Positive [facility] pH, UA 6 5 - 9 [facility] Protein, UA Negative Negative - 2000(20) ++++ mg/dL [facility] Spec Grav, UA 1.01 1 - 1.03 [facility] Urobilinogen, UA 0.2 0.2 - 12 mg/dL [facility] Urinalysis macro (dipstick) panel (U)on 01-13-2025 Bilirubin, UA Negative Negative - 4(70) +++ mg/dL [facility] Blood, UA Negative Negative - 50 Randall/mcL [facility] Clarity, UA Clear [facility] Color, UA Yellow [facility] Glucose, UA Negative Negative - 1999(110) ++++ mg/dL [facility] Interpretation and review of laboratory results Abnormal [facility] Ketones, UA Negative Negative - 160(16) ++++ mg/dL [facility] Leukocytes, UA Positive Negative - 500+++ Johnson/mcL [facility] Comment on above: Large Nitrite, UA Negative Negative - Positive [facility] pH, UA 7 5 - 9 [facility] Protein, UA Negative Negative - 2000(20) ++++ mg/dL [facility] Spec Grav, UA 1.015 1 - 1.03 [facility] Urobilinogen, UA 0.2 0.2 - 12 mg/dL [facility] ALL CBC WITH AUTO DIFFon BASOPHILS ABSOLUTE AUTO 0.1 N [facility] Basophils/100 WBC (Bld) 0.5 % 0.2 - 2.0 % [facility] Eosinophils/100 WBC (Bld) 2.6 % 0.9 - 7.0 % [facility] Erythrocyte distribution width (RBC) [Ratio] 12.2 % 11.0 - 15.0 % [facility] Hematocrit (Bld) [Volume fraction] 42.8 % 36.0 - 48.0 % [facility] Hemoglobin (Bld) [Mass/Vol] 14.8 g/dL 12.0 - 16.0 g/dL [facility] IMMATURE GRANULOCYTES ABS AUTO 0.01 [facility] Immature granulocytes/100 WBC (Bld) 0.1 % 0.0 - 0.5 % [facility] LYMPHOCYTES ABSOLUTE AUTO 2.8 [facility] Lymphocytes/100 WBC (Bld) 29.5 % 20.5 - 60.0 % [facility] MCH (RBC) [Entitic mass] 29.6 pg 26.7 - 34.0 pg [facility] MCHC (RBC) [Mass/Vol] 34.6 g/dL 29.9 - 35.2 g/dL [facility] MCV (RBC) [Entitic vol] 85.6 fL 81.0 - 99.0 fL [facility] MONOCYTES ABSOLUTE AUTO 0.6 N [facility] Monocytes/100 WBC (Bld) 5.8 % 1.7 - 12.0 % [facility] NEUTROPHILS ABSOLUTE AUTO 5.8 [facility] Neutrophils/100 WBC (Bld) 61.5 % 43.0 - 75.0 % [facility] Platelet mean volume (Bld) [Entitic vol] 10 fL 9.5 - 13.5 fL [facility]H EO # 0.3 [facility] PLT [address] [facility] RBC 5 [facility] WBC 9.5 [facility] HCG ( test) Ql (U)o n 12-01-2024 Interpretation and review of laboratory results Normal [facility] Preg Test, Ur Negative Negative [facility] Urinalysis macro (dipstick) panel (U)on 12-01-2024 Bilirubin, UA Negative Negative - 4(70) +++ mg/dL [facility] Blood, UA Negative Negative - 50 Randall/mcL [facility] Clarity, UA Clear [facility] Color, UA Yellow [facility] Glucose, UA Negative Negative - 1999(110) ++++ mg/dL [facility] Interpretation and review of laboratory results Abnormal [facility] Ketones, UA Negative Negative - 160(16) ++++ mg/dL [facility] Leukocytes, UA Positive Negative - 500+++ Johnson/mcL [facility] Comment on above: small Nitrite, UA Negative Negative - Positive [facility] pH, UA 7 5 - 9 [facility] Protein, UA Negative Negative - 1999(20) ++++ mg/dL [facility] Spec Grav, UA 1.01 1 - 1.03 [facility] Urobilinogen, UA 0.2 0.2 - 12 mg/dL [facility] IGP,APTIMA HPV,AGE GDLNon AGE GDLN ACOG TESTING Note . [facility] Comment on above: TESTS RESULT FLAG [facility] REF RANGE LAB Clinician Provided Cytology Information Source.............Cervix;Endocervix No. of containers..01 ThinPrep Vial Age Algo ACOG Millie... FLAG LEGEND: L-Low Normal,H-High Normal,LL-Alert Low,HH-Alert High <-Panic Low,>-Panic High,A-Abnormal,AA-Critical Abnormal Performed at: 01 =G [address] [address] Beverly Nguyen MD, IGP, RFX APTIMA HPV ASCU Note . [facility] Comment on above: TESTS RESULT FLAG [facility] REF RANGE LAB DIAGNOSIS: 02 NEGATIVE FOR INTRAEPITHELIAL LESION OR MALIGNANCY. Specimen adequacy: 02 Satisfactory for evaluation. No endocervical component is identified. Performed by: 02 Nikolay Smith Dietitian Teacher (ASCP) . 02 Note: Note 02 The Pap [...] <-Panic Low,>-Panic High,A-Abnormal,AA-Critical Abnormal Performed at: [address] [address] Beverly Nguyen MD, Performed at: =G - [facility] [address] [id number] [employer]: Beverly Nguyen MD, Phone: [phone] Performed at: - [facility] [id number] [employer]: Beverly Nguyen MD, Phone: [phone] [facility] Metabolic Pane kim 01-10-2023 Albumin [Mass/Vol] 4.2 g/dL Normal 3.5-5.0 [facility] Comment on above: Order Comment: Order ed by ANNEL YUEN Performed By: #### C MP, [id number] #### [place] [address] Ph. [phone] ALP [Catalytic activity/Vol] 77 U/L Normal 38-126 [facility] Comment on above: Order Comment: Order ed by ANNEL MALICK Performed By: #### C MARCELLE, [id number] #### [address] [address] Ph. [phone] ALT [Catalytic activity/Vol] 29 U/L Normal 0-35 [facility] Comment on above: Order Comment: Order ed by ANNEL MALICK Performed By: #### C MARCELLE, [id number] #### [address] [address] Ph. [phone] AST [Catalytic activity/Vol] 30 U/L Normal 14-36 [facility] Comment on above: Order Comment: Order ed by ANNEL MALICK Performed By: #### C MARCELLE, [id number] #### [place] [id number] Ph. [phone] Bilirubin [Mass/Vol] 0.4 mg/dL Normal 0.2-1.3 [facility] Comment on above: Order Comment: Order ed by ANNEL MALICK Performed By: #### C MARCELLE, [id number] #### [address] [address] Ph. [phone] Calcium [Mass/Vol] 9.2 mg/dL Normal 8.4-10.2 [facility] Comment on above: Order Comment: Order ed by ANNEL MALICK Performed By: #### C MARCELLE, [id number] #### [address] [address] Ph. [phone] Chloride [Moles/Vol] 101 mmol/L Normal 98-107 [facility] Comment on above: Order Comment: Order ed by ANNEL MALICK Performed By: #### C MARCELLE, [id number] #### [address] [address] Ph. [phone] CO2 [Moles/Vol] 25 mmol/L Normal 22-32 [facility] Comment on above: Order Comment: Order ed by ANNEL YUEN Performed By: #### C MARCELLE, [id number] #### [place] [id number] Ph. [phone] Creatinine [Mass/Vol] 0.71 mg/dL Normal 0.52-1.04 [facility] Comment on above: Order Comment: Order ed by ANNEL YUEN Performed By: #### C MARCELLE, [id number] #### [place] [address] Ph. [phone] GFR/1.73 sq M.predicted among non-blacks MDRD (S/P/Bld) [Vol rate/Area] 122 mL/min/{1.73_m2} Normal >60 [facility] Comment on above: Order Comment: Order [...] failure <15 Performed By: #### C MARCELLE, [id number] #### [place] [address] Ph. [phone] Glucose [Mass/Vol] 85 mg/dL Normal 65-100 [facility] Comment on above: Order Comment: Order ed by ANNEL YUEN Performed By: #### C MARCELLE, [id number] #### [address] [address] Ph. [phone] Potassium [Moles/Vol] 4.1 mmol/L Normal 3.6-5.0 [facility] Comment on above: Order Comment: Order ed by ANNEL YUEN Performed By: #### C MP, [id number] #### [place] [id number] Ph. [phone] Protein [Mass/Vol] 8.0 g/dL Normal 6.3-8.2 [facility] Comment on above: Order Comment: Order ed by ANNEL YUEN Performed By: #### C MP, [id number] #### [place] [address] Ph. [phone] Sodium [Moles/Vol] 137 mmol/L Normal 135-145 [facility] Comment on above: Order Comment: Order ed by ANNEL YUEN Performed By: #### C MARCELLE, [id number] #### [place] [address] Ph. [phone] Urea nitrogen [Mass/Vol] 10 mg/dL Normal 7-17 [facility] Comment on above: Order Comment: Order ed by ANNEL YUEN Performed By: #### C MARCELLE, [id number] #### [place] [address] Ph. [phone] Albumin [Mass/Vol] 4.2 g/dL 3.5 - 5.0 [...] mg/dL [place] GFR, Estimated 122 - PINF [place] Comment on above: GFR calculated using CKD-EPI [...] 17 mg/dL [place] Ordered by ANNEL YUEN [facility] [place] TSH Reflex FT4on 01-10-2023 TSH 2.420 mIU/mL Normal 0.470-4.680 [facility] Comment on above: Order Comment: Order ed by ANNEL YUEN Performed By: #### C MP, [id number] #### [place] [address] Ph. [phone] TSH with Reflexon 01-10-2023 TSH Qn 2.420 m[IU]/L [place] Ordered by ANNEL YUEN [facility] [place] PAP ACOG PANEL 2: 21 to 29on 03-01-2022 . . Normal [facility] Comment on above: Performed By: #### [id number] #### [facility] [address] [address] [address] Dallas Wolf Age Gdln ACOG Testing - Normal [facility] Comment on above: Performed By: #### 4 [id number] #### [facility] [address] [address] [address] Dallas Wolf DIAGNOSIS: Comment [facility] Comment on above: Result Comment: NEGA TIVE FOR INTRAEPITHELIAL LESION OR MALIGNANCY. Performed By: #### [id number] #### [facility] [address] [address] [address] Dallas Wolf Methodology: Comment [facility] Comment on above: Result Comment: This liquid based ThinPrep(R) pap test was screened with the use of an image guided system. Performed By: #### 4 [id number] #### [facility] [address] [place] [address] Dr. Dallas Wolf Note: Comment Normal [facility] Comment on above: Result Comment: The Pap smear is a screening test designed to aid in the detection of premalignant and malignant conditions of the uterine cervix. It is not a diagnostic procedure and should not be used as the sole means of detecting cervical cancer. Both false-positive and false-negative reports do occur. . Performed By: #### 4 [id number] #### [facility] [address] [place] [address] Dr. Dallas Wolf Performed by: Comment Normal [facility] Comment on above: Result Comment: Héctor Smith Dietitian Teacher (ASCP) Performed By: #### 4 [id number] #### [facility] [address] [place] [address] Dr. Dallas Wolf Reflex Criteria: Comment Normal [facility] Comment on above: Result Comment: The HPV DNA reflex criteria were not met with this specimen result therefore, no HPV testing was performed. . Performed By: #### 4 [id number] #### [facility] [address] [place] [address] Dr. Dallas Wolf Specimen adequacy: Comment Normal [facility] Comment on above: Result Comment: Sati sfactory for evaluation. Endocervical and/or squamous metaplastic cells (endocervical component) are present. Performed By: #### 4 [id number] #### [facility] [address] [place] [address] Dr. Dallas Wolf CBC AUTO DIFFon 06-30-2021 BASO # 0.1 103/ul Normal 0.0-0.1 [facility] Comment on above: Performed By: #### C BC #### [facility] [address] [place] [address] Dr. Dallas Wolf Basophils/100 WBC (Bld) 0.8 % Normal 0.2-2.0 [place] Comment on above: Performed By: #### C BC #### [facility] [address] [place] [address] Dr. Dallas Wolf EO # 0.3 103/ul Normal 0.0-0.7 [facility] Comment on above: Performed By: #### C BC #### [facility] [address] [place] [address] Dr. Dallas Wolf Eosinophils/100 WBC (Bld) 4.1 % Normal 0.9-7.0 [facility] Comment on above: Performed By: #### C BC #### [facility] [address] [place] [address] Dr. Dallas Wolf Erythrocyte distribution width (RBC) [Ratio] 13.0 % Normal 11.0-15.0 [facility] Comment on above: Performed By: #### C BC #### [facility] [address] [place] [address] Dr. Dallas Wolf Hematocrit (Bld) [Volume fraction] 43.4 % Normal 36.0-48.0 [facility] Comment on above: Performed By: #### C BC #### [facility] [address] [place] [address] Dr. Dallas Wolf Hemoglobin (Bld) [Mass/Vol] 14.5 g/dL Normal 12.0-16.0 [facility] Comment on above: Performed By: #### C BC #### [facility] [address] [place] [address] Dr. Dallas Wolf IG # 0.02 10e3/ul Normal 0.00-0.03 [facility] Comment on above: Performed By: #### C BC #### [facility] [address] [place] [address] Dr. Dallas Wolf IG % 0.3 % Normal 0.0-0.5 [facility] Comment on above: Performed By: #### C BC #### [facility] [address] [place] [address] Dr. Dallas Wolf LYMPH # 2.2 103/ul Normal 1.2-3.8 [facility] Comment on above: Performed By: #### C BC #### [facility] [address] [place] [address] Dr. Dallas Wolf Lymphocytes/100 WBC (Bld) 28.1 % Normal 20.5-60.0 [facility] Comment on above: Performed By: #### C BC #### [facility] [address] [place] [address] Dr. Dallas Wolf MANUAL DIFF REQ NO Normal [facility] Comment on above: Performed By: #### C BC #### [facility] [address] [place] [address] Dr. Dallas Wolf MCH (RBC) [Entitic mass] 28.5 pg Normal 26.7-34.0 [facility] Comment on above: Performed By: #### C BC #### [facility] [address] [place] [address] Dr. Dallas Wolf MCHC (RBC) [Mass/Vol] 33.4 g/dL Normal 29.9-35.2 [facility] Comment on above: Performed By: #### C BC #### [facility] [address] [place] [address] Dr. Dallas Wolf MCV (RBC) [Entitic vol] 85.3 fL Normal 81.0-99.0 [place] Comment on above: Performed By: #### C BC #### [facility] [address] [place] [address] Dr. Dallas Wolf MONO # 0.6 103/ul Normal 0.3-0.8 [facility] Comment on above: Performed By: #### C BC #### [facility] [address] [place] [address] Dr. Dallas Wolf Monocytes/100 WBC (Bld) 7.9 % Normal 1.7-12.0 [place] Comment on above: Performed By: #### C BC #### [facility] [address] [place] [address] Dr. Dallas Wolf NEUT # 4.6 103/ul Normal 1.4-6.5 [facility] Comment on above: Performed By: #### C BC #### [facility] [address] [place] [address] Dr. Dallas Wolf Neutrophils/100 WBC (Bld) 58.8 % Normal 43.0-75.0 [facility] Comment on above: Performed By: #### C BC #### [facility] [address] [place] [address] Dr. Dallas Wolf Platelet mean volume (Bld) [Entitic vol] 9.6 fL Normal 9.5-13.5 [facility] Comment on above: Performed By: #### C BC #### [facility] [address] [place] [address] Dr. Dallas Wolf PLT 242 103/ul Normal 150-450 [facility] Comment on above: Performed By: #### C BC #### [facility] [address] [place] [address] Dr. Dallas Wolf RBC 5.09 106/ul Normal 4.20-5.40 [facility] Comment on above: Performed By: #### C BC #### [facility] [address] [place] [address] Dr. Dallas Wolf WBC 7.8 103/ul Normal 4.0-11.0 [facility] Comment on above: Performed By: #### C BC #### [facility] [address] [place] [address] Dr. Dallas Wolf PREG QUANT HCGon 06-30-2021 HCG QUANT <1 Normal [facility] Comment on above: Performed By: #### P REGQNT #### [facility] [address] [place] [address] Dr. Dallas Wolf HCG RANGE SEE BELOW Normal [facility] Comment on above: Result Comment: 5-50 0-1 WEEK 40-300 1-2 WEEKS 100-1,000 2-3 WEEKS 500-6,000 3-4 WEEKS 5,000-200,000 1-2 MONTHS 10,000-100,000 2-3 MONTHS 3,000-50,000 2ND TRIMESTER 1,000-50,000 3RD TRIMESTER Performed By: #### P REGQNT #### [facility] [address] [place] [address] Dr. Dallas Wolf Covid-19 PCR ([facility])on 06-12 SARS-CoV-2 (COVID-19) RNA SANJANA+probe Ql (Unsp spec) Not detected Normal NOT DETECTED [facility] Comment on above: Result Comment: This test is not yet approved or cleared by the [place] FDA. When there are no FDA-approved or cleared tests available, and other criteria are met, FDA can make tests available under an emergency access mechanism called an Emergency Use Authorization (EUA). The EUA for this test is supported by the [place] of Health and Human Service's (HHS's) declaration [...] consistent with SARS-CoV-2. Performed By: #### C [facility] #### [facility] [address] [place] [address] Dr. Dallas Wolf Vital Signs Date Time Vital Sign Value Performing Clinician Facility 05-12-2025 08:33-0400 Body mass index (BMI) [Ratio] 33.59 kg/m2 Patricia Roy ROLL UP MACHINE OPERATOR Work Phone: [facility] 05-12-2025 08:33-0400 Body weight 94.4 kg Patricia Roy ROLL UP MACHINE OPERATOR Work Phone: [facility] 05-12-2025 08:33-0400 Diastolic blood pressure 78 mm[Hg] Patricia Roy ROLL UP MACHINE OPERATOR Work Phone: [facility] 05-12-2025 08:33-0400 Systolic blood pressure 118 mm[Hg] Patricia Roy ROLL UP MACHINE OPERATOR Work Phone: [facility] 04-15-2025 10:35-0400 Body mass index (BMI) [Ratio] 33.25 kg/m2 Nikunj Canchola DO Work Phone: [facility] 04-15-2025 10:35-0400 Body weight 93.44 kg Nikunj Jesika DO Work Phone: [facility] 04-15-2025 10:35-0400 Diastolic blood pressure 72 mm[Hg] Nikunj Jesika DO Work Phone: [facility] 04-15-2025 10:35-0400 Systolic blood pressure 116 mm[Hg] Nikunj Jesika DO Work Phone: [facility] 03-18-2025 10:37-0400 Body mass index (BMI) [Ratio] 33.31 kg/m2 Shagufta Gregorio PA Work Phone: [facility] 03-18-2025 10:37-0400 Body weight 93.62 kg Shagufta Gregorio PA Work Phone: [facility] 03-18-2025 10:37-0400 Diastolic blood pressure 74 mm[Hg] Shagufta Gregorio PA Work Phone: [facility] 03-18-2025 10:37-0400 Systolic blood pressure 110 mm[Hg] Shagufta Hickory PA Work Phone: [facility] 02-18-2025 08:55-0400 Body mass index (BMI) [Ratio] 33.25 kg/m2 Nikunj Jesika DO Work Phone: [facility] 02-18-2025 08:55-0400 Body weight 93.44 kg Nikunj Jesika DO Work Phone: [facility] 02-18-2025 08:55-0400 Diastolic blood pressure 76 mm[Hg] Nikunj Jesika DO Work Phone: [facility] 02-18-2025 08:55-0400 Systolic blood pressure 124 mm[Hg] Nikunj Jesika DO Work Phone: [facility] 01-13-2025 09:14-0400 Body mass index (BMI) [Ratio] 33.89 kg/m2 Patricia Roy NP Work Phone: [facility] 01-13-2025 09:14-0400 Body weight 95.25 kg Patricia Cosmeerly ROLL UP MACHINE OPERATOR Work Phone: [facility] 01-13-2025 09:14-0400 Diastolic blood pressure 86 mm[Hg] Patricia Kirill ROLL UP MACHINE OPERATOR Work Phone: [facility] 01-13-2025 09:14-0400 Systolic blood pressure 120 mm[Hg] Patricia Cosmeerly ROLL UP MACHINE OPERATOR Work Phone: [facility] 12-01-2024 11:00-0400 Body mass index (BMI) [Ratio] 35.32 kg/m2 Nikunj Jesika DO Work Phone: [facility] 12-01-2024 11:00-0400 Body weight 99.25 kg Nikunj Jesika DO Work Phone: [facility] 12-01-2024 11:00-0400 Diastolic blood pressure 84 mm[Hg] Nikunj Jesika DO Work Phone: [facility] 12-01-2024 11:00-0400 Systolic blood pressure 124 mm[Hg] Nikunj Jesika DO Work Phone: [facility] 02-28-2024 14:07-0400 Body height 167.64 cm [facility] 02-28-2024 14:07-0400 Body mass index (BMI) [Ratio] 35.9 kg/m2 [facility] 02-28-2024 14:07-0400 Body weight 101.15 kg [facility] 02-28-2024 14:07-0400 Diastolic blood pressure 98 mm[Hg] [facility] 02-28-2024 14:07-0400 Heart rate 102 /min [facility] 02-28-2024 14:07-0400 Systolic blood pressure 133 mm[Hg] [facility] 12-05-2023 15:18-0400 Body height 167.64 cm [facility] 12-05-2023 15:18-0400 Body mass index (BMI) [Ratio] 36.8 kg/m2 [facility] 12-05-2023 15:18-0400 Body weight 103.41 kg [facility] 12-05-2023 15:18-0400 Diastolic blood pressure 112 mm[Hg] [facility] 12-05-2023 15:18-0400 Heart rate 94 /min [facility] 12-05-2023 15:18-0400 Systolic blood pressure 150 mm[Hg] [facility] 08-02-2023 11:56-0500 Body height 172.7 cm Annel Yuen APPRENTICE FUNERAL DIRECTOR-PIERCING ARTIST Work Phone: [facility] 08-02-2023 11:56-0500 Body mass index (BMI) [Ratio] 35.18 kg/m2 Annel Yuen APRN-PIERCING ARTIST Work Phone: [facility] [employer] [facility] 08-02-2023 11:56-0500 Body temperature 97.2 [degF] Annel Yuen APRN-PIERCING ARTIST Work Phone: [facility] [employer] 08-02-2023 11:56-0500 Body weight 104.96 kg Annel Yuen APPRENTICE FUNERAL DIRECTOR-PIERCING ARTIST Work Phone: [facility] 08-02-2023 11:56-0500 Diastolic blood pressure 78 mm[Hg] Annel Yuen APRN-PIERCING ARTIST Work Phone: [facility] [employer] 08-02-2023 11:56-0500 Heart rate 91 /min Annel Yuen APRN-PIERCING ARTIST [facility] 08-02-2023 11:56-0500 SaO2% (BldA) [Mass fraction] 99 % Annel Yuen APRN-PIERCING ARTIST [facility] 08-02-2023 11:56-0500 Systolic blood pressure 128 mm[Hg] Annel Yuen APPRENTICE FUNERAL DIRECTOR-PIERCING ARTIST Work Phone: [facility] [employer] [facility] Encounters Encounter Date Encounter Type Care Provider Facility Start: 05-12-2025 End: 05-12-2025 Linden Roy NP Work Phone: [facility] Start: 05-12-2025 End: 05-12-2025 Bamboo flowsheet Patricia Kirill ROLL UP MACHINE OPERATOR Work Phone: [facility] Start: 05-12-2025 End: 05-12-2025 flow sheet Patricia Kirill ROLL UP MACHINE OPERATOR Work Phone: [facility] Comment on above: 24 weeks gestation o f ([facility]); Second trimester ([facility]); Diabetes mellitus screening Start: 05-12-2025 End: 05-12-2025 ambulatory PATRICIA KIRILL Not Available Start: 04-15-2025 End: 04-15-2025 Bamboo flowsheet Nikunj Jesika DO Work Phone: [facility] Start: 04-15-2025 End: 04-19-2025 Bamboo flowsheet Nikunj Jesika DO Work Phone: [facility] Start: 04-15-2025 End: 04-19-2025 Clinisync Result Encounter Nikunj Jesika DO Work Phone: [facility] External Department Unsolicited Start: 04-15-2025 End: 04-15-2025 Periodic preventive med est patient 18-39 yrs Nikunj Jesika DO Work Phone: [facility] [place] [facility] Comment on above: Second trimester pre gnancy ([facility]); 21 weeks gestation of ([facility]); Nausea and vomiting during ([facility]); Vaginal discharge during , antepartum ([facility]) Start: 04-15-2025 End: 04-15-2025 ambulatory NIKUNJ JESIKA Not Available Start: 04-08-2025 End: 04-08-2025 ambulatory SHAGUFTA ONEAL [...] sheet Shagufta MIX Work Phone: [facility] Comment on above: 17 weeks gestation o f ([facility]); Second trimester ([facility]); Subchorionic hematoma in first trimester, single or unspecified fetus ([facility]); Screening, , for anatomic survey ([facility]); Exposure to STD; Vaginal discharge Start: 03-18-2025 End: 03-18-2025 ambulatory SHAGUFTA ONEAL Not Available Start: 03-04-2025 End: 03-04-2025 ambulatory RAFAEL LARA [facility] Start: 03-04-2025 End: 03-04-2025 Subsequent hospital visit by physician Annel Sanford CNP Work Phone: [facility] Start: 02-18-2025 End: 02-18-2025 Bamboo flowsheet Nikunj Jesika DO Work Phone: [facility] Start: 02-18-2025 End: 02-18-2025 Bamboo flowsheet Nikunj Jesika DO Work Phone: [facility] Start: 02-18-2025 End: 02-18-2025 ambulatory NIKUNJ JESIKA Not Available Start: 02-18-2025 End: 02-18-2025 flow sheet Nikunj Jesika DO Work Phone: [facility] Comment on above: Second trimester pre gnancy ([facility]); 13 weeks gestation of ([facility]) Start: 02-11-2025 End: 02-11-2025 Clinisync Result Encounter [...] 01-13-2025 End: 01-13-2025 Bamboo flowsheet Patricia Kirill ROLL UP MACHINE OPERATOR Work Phone: [facility] Start: 01-13-2025 End: 01-13-2025 Bamboo flowsheet Patricia Kirill ROLL UP MACHINE OPERATOR Work Phone: [facility] Start: 01-13-2025 End: 01-13-2025 ambulatory PATRICIA KIRILL Not Available Start: 01-13-2025 End: 01-13-2025 Office outpatient visit 15 minutes Patricia Kirill ROLL UP MACHINE OPERATOR Work Phone: [facility] Comment on [...] 15 minutes Nikunj Jesika DO Work Phone: [facility] Comment on above: Female infertility; PCOS (polycystic ovarian syndrome); Abnormal uterine bleeding (AUB); Endometriosis; Insulin resistance Start: 12-01-2024 End: 12-01-2024 ambulatory NIKUNJ TONEYO Not Available Start: 03-25-2024 End: 03-31-2024 Clinisync Result Encounter Nikunj Jesika DO Work Phone: [facility] External Department Unsolicited Start: 03-25-2024 End: 03-31-2024 Clinisync Result Encounter Nikunj Jesika DO Work Phone: [facility] Department Unsolicited Start: 02-28-2024 End: 02-28-2024 ambulatory [facility] Work Phone: Start: 02-28-2024 End: 02-28-2024 Patient encounter procedure On License Of [facility] Physician [facility] Work Phone: Start: 12-05-2023 End: 12-05-2023 ambulatory [facility] Work Phone: Start: 12-05-2023 End: 12-05-2023 Patient encounter procedure On License Of [facility] Physician [facility] Work Phone: Start: 12-03-2023 End: 12-03-2023 Telephone encounter Annel Yuen APPRENTICE FUNERAL DIRECTOR-PIERCING ARTIST [facility] Phone: [facility] Start: 08-02-2023 End: 08-02-2023 Office outpatient visit 15 minutes Annel Yuen APRN-PIERCING ARTIST Work Phone: [facility] Comment on above: Acute non-recurrent maxillary sinusitis (Primary Dx); Non-recurrent acute serous otitis media of both ears; Elevated blood pressure reading Start: 01-10-2023 End: 01-11-2023 ambulatory ANNEL YUEN [facility] Start: 01-10-2023 End: 01-10-2023 Subsequent hospital visit by physician Annel Sanford CNP Work Phone: [facility] Start: 02-26-2022 End: 02-26-[address] NIKUNJ CANCHOLA Facility:[facility] Start: 07-03-2021 Encounter for preprocedural laboratory examination DR NIKUNJ CANCHOLA [facility] Start: 06-30-2021 End: 06-30-[address] NIKUNJ CANCHOLA Facility:[facility] Start: 06-27-2021 Encounter for other preprocedural examination DR NIKUNJ CANCHOLA [facility] Start: 06-27-2021 End: 06-28-[address] NIKUNJ CANCHOLA Facility:[facility] Start: 06-27-2021 End: 06-28-2021 Encounter for preprocedural laboratory examination DR NIKUNJ CANCHOLA Facility:[facility] Start: 06-21-2021 End: 06-22-[address] NIKUNJ CANCHOLA Facility:[facility] Start: 06-21-2021 End: 06-22-2021 Encounter for other preprocedural examination DR NIKUNJ CANCHOLA Facility:[facility] Procedures Date Procedure Procedure Detail Performing Clinician Start: 05-12-2025 Urnls dip stick/tabl et rgnt non-auto w/o micrscp Patricia Roy ROLL UP MACHINE OPERATOR Work Phone: Start: 04-15-2025 IGP,APTIMA HPV,AGE GDLN Nikunj Jesika DO Work Phone: Start: 03-18-2025 AFP, SERUM, OPEN SPI NA [...] et rgnt non-auto w/o micrscp Patricia Roy ROLL UP MACHINE OPERATOR Work Phone: Start: 12-01-2024 ALL CBC WITH AUTO DIFF Nikunj Jesika DO Work Phone: Start: 12-01-2024 End: 12-01-2024 Urnls dip stick/tablet rgnt non-auto w/o micrscp Nikunj Jesika DO Work Phone: Start: 03-25-2024 IGP,APTIMA HPV,AGE GDLN Nikunj Jesika DO Work Phone: Start: 08-02-2023 Adult depression scr eening assessment Annel Yuen APPRENTICE FUNERAL DIRECTOR-[facility] Work Phone: Start: 03-05-2023 Microscopic observat ion [Identifier] in Cervix by Cyto stain Annel Yuen APPRENTICE FUNERAL DIRECTOR-[facility] Work Phone: Start: 01-10-2023 Comprehensive metabo lic panel Unknown Provider Result Plan of Treatment Date Care Activity Detail Author Start: 03-05-2026 Screening for malign ant neoplasm of cervix Pap Smear [facility] Start: 05-12-2025 End: 05-12-2026 CBC panel - Blood by Automated count CBC Lab Routine Diabetes mellitus screening Expected: 05/12/2025 (Approximate), Expires: 05/12/2026 [facility] [employer] Work Phone: Comment on above: Expected: 05/12/2025 (Approximate), Expires: 05/12/2026 Start: 05-12-2025 End: 05-12-2026 Measurement of glucose 1 hour after glucose challenge for glucose tolerance test Glucose tolerance, 1 hour Lab Routine Diabetes mellitus screening Expected: 05/12/2025 (Approximate), Expires: 05/12/2026 [facility] Comment on above: Expected: 05/12/2025 (Approximate), Expires: 05/12/2026 Start: 05-12-2025 End: 05-12-2025 Patient encounter procedure [facility] Comment on above: Arrived Start: 04-15-2025 End: 04-15-2025 Patient encounter procedure [facility] Comment on above: Arrived Start: 04-12-2025 Influenza vaccination [facility] Start: 04-08-2025 End: 04-08-2025 Professional / ancillary services management 04/08/2025 8:00 AM EDT Ancillary Procedure [facility] [address] [place] [id number] [facility] Start: 04-05-2025 End: 04-05-2025 Patient encounter procedure 04/05/2025 10:20 AM EDT Office Visit [facility] [address] [place] [phone] Nikunj Canchola, DO [address] [address] [facility] Start: 03-18-2025 End: 04-18-2025 Alpha fetoprotein, maternal Alpha fetoprotein, maternal Lab Routine 17 weeks gestation of ([facility]) Second trimester ([facility]) Expected: 03/18/2025 (Approximate), Expires: 04/18/2025 [facility] Comment on above: Expected: 03/18/2025 (Approximate), Expires: 04/18/2025 Start: 03-18-2025 End: 06-18-2025 US for US OB 14+ weeks anatomy scan Imaging Routine Screening, , for anatomic survey ([facility]) Expected: 03/18/2025, Expires: 06/18/2025 [facility] Comment on above: Expected: 03/18/2025 , Expires: 06/18/2025 Start: 03-18-2025 End: 03-18-2025 Patient encounter procedure 03/18/2025 10:30 AM EDT Routine [facility] [address] [place] [phone] Shagufta Oneal PA [address] [place], [place] [id number] [facility] Start: 03-18-2025 End: 03-18-2025 Professional / ancillary services management 03/18/2025 10:00 AM EDT Ancillary Procedure [facility] [address] [place] [address] [place] [phone] [facility] Start: 03-12-2025 Influenza vaccination Flu vaccine (# 1) [facility] Start: 02-18-2025 End: 02-18-2025 Patient encounter procedure 02/18/2025 8:40 AM EDT Routine [facility] [address] [place] [address] Nikunj Canchola DO [address] [place], [place] [id number] [facility] Start: 01-21-2025 End: 01-21-2026 ABO/Rh ABO/Rh Lab Routine Missed menses , unspecified gestational age ([facility]) Expected: 01/21/2025 (Approximate), Expires: 01/21/2026 [facility] Comment on above: Expected: 01/21/2025 (Approximate), Expires: 01/21/2026 Start: 01-21-2025 End: 01-21-2025 ambulatory 01/21/2025 2:00 PM EDT Initial [facility] [address] [place] [address] [facility] Start: 01-21-2025 End: 01-21-2026 Blood type and Indirect antibody screen panel - Blood Type and screen Lab Routine Missed menses , unspecified gestational age ([facility]) Expected: 01/21/2025 (Approximate), Expires: 01/21/2026 [facility] Work Phone: Comment on above: Expected: 01/21/2025 (Approximate), Expires: 01/21/2026 Start: 01-21-2025 End: 01-21-2026 Drugs of abuse panel - Urine by Screen method Rapid drug screen, urine Lab Routine , unspecified gestational age ([facility]) Encounter for supervision of normal first in first trimester ([facility]) Expected: 01/21/2025 (Approximate), Expires: 01/21/2026 [facility] Comment on above: Expected: 01/21/2025 (Approximate), Expires: 01/21/2026 Start: 01-21-2025 End: 01-21-2025 Professional / ancillary services management 01/21/2025 1:30 PM EDT Ancillary Procedure [facility] [place] [address] [facility] Start: 12-17-2024 End: 12-17-2024 Professional / ancillary services management 12/17/2024 8:00 AM EDT Ancillary Procedure [facility] [address] [place], [place] [address] [address] [facility] Start: 12-01-2024 End: 12-01-2025 Antimullerian hormone [...] (polycystic ovarian syndrome) Expected: 12/01/2024, Expires: 12/01/2025 [facility] Comment on above: Expected: 12/01/2024 , Expires: 12/01/2025 Start: 08-02-2024 Adult BMI Screening Adult BMI Screen ing [facility] Start: 08-02-2024 Depression Screening Depression Scre ening [facility] Start: 08-02-2024 Tobacco Screening Tobacco Screening [facility] Start: 04-12-2024 COVID-19 Vaccine ( season) COVID-19 Vaccine ( season) [facility] Start: 04-12-2024 Influenza vaccination [facility] Start: 03-05-2024 Adult BMI Follow Up Plan Adult BMI Follow Up Plan [facility] Start: 03-05-2024 Adult BMI Screening Adult BMI Screen ing [facility] Start: 03-05-2024 Screening for Chlamy deysi trachomatis Chlamydia Screening [facility] Comment on above: Postponed from 09/20 (Not Indicated) Start: 04-12-2023 Influenza vaccination Influenza Vacc ine [facility] Start: 03-12-2023 Influenza vaccination Flu vacc ine (Season Ended) [facility] Start: 04-23-2022 DTaP,Tdap and Td Vaccines (7 - Td or Tdap) DTaP,Tdap and Td Vaccines (7 - Td or Tdap) [facility] Start: 2018 DTaP/Tdap/Td vaccine (1 - Tdap) DTaP/Tdap/Td vaccine (1 - Tdap) [facility] Start: 03-20-2000 COVID-19 Vaccine (#1) COVID-19 Vacci ne (#1) [facility] Bacteria identified in Urine by Culture Urine culture Microbiology Routine Missed menses Ordered: 01/21/2025 [facility] Comment on above: Ordered: 01/21/2025 CBC W Auto Different ial panel - Blood CBC and differential Lab Routine PCOS (polycystic ovarian syndrome) Ordered: 12/01/2024 [facility] Comment on above: Ordered: 12/01/2024 CBC W Auto Different ial panel - Blood CBC and differential Lab Routine Missed menses , unspecified gestational age ([facility]) Ordered: 01/21/2025 [facility] Comment on above: Ordered: 01/21/2025 CHLAMYDIA TRACHOMATI S (GENITO/STI) CHLAMYDIA TRACHOMATIS (GENITO/STI) Lab Routine Exposure to STD Ordered: 03/18/2025 [facility] Comment on above: Ordered: 03/18/2025 CHLAMYDIA TRACHOMATI S (GENITO/STI) CHLAMYDIA TRACHOMATIS (GENITO/STI) Lab Routine Vaginal discharge during , antepartum ([facility]) Ordered: 04/15/2025 [facility] Comment on above: Ordered: 04/15/2025 Cytology Cervical or vaginal smear or scraping study Pap Smear Pathology and Cytology Routine Second trimester ([facility] 21 weeks gestation of ([facility]) Ordered: 04/15/2025 [facility] Work Phone: Comment on above: Ordered: 04/15/2025 DHEA-sulfate DHEA-sulfate Lab Routine PCOS (polycystic ovarian syndrome) Ordered: 12/01/2024 [facility] Comment on above: Ordered: 12/01/2024 Follicle stimulating hormone Follicle stimulating hormone Lab Routine PCOS (polycystic ovarian syndrome) Ordered: 12/01/2024 [facility] Comment on above: Ordered: 12/01/2024 hCG, quantitative, hCG, quantitative, Lab Routine PCOS (polycystic ovarian syndrome) Ordered: 12/01/2024 [facility] Work Phone: Comment on above: Ordered: 12/01/2024 Hemoglobin A1c/Hemoglobin.total in Blood Hemoglobin A1c Lab Routine Abnormal uterine bleeding (AUB) Endometriosis Ordered: 12/01/2024 [facility] Comment on above: Ordered: 12/01/2024 Hemoglobin A1c/Hemoglobin.total in Blood Hemoglobin A1c Lab Routine Missed menses , unspecified gestational age ([facility]) Ordered: 01/21/2025 [facility] Comment on above: Ordered: 01/21/2025 Hepatitis B virus surface Ag [Presence] in Serum or Plasma by Immunoassay Hepatitis B surface antigen Lab Routine Missed menses , unspecified gestational age ([facility]) Ordered: 01/21/2025 [facility] Comment on above: Ordered: 01/21/2025 Hepatitis C virus Ab [Presence] in Serum or Plasma by Immunoassay Hepatitis C antibody Lab Routine Missed menses , unspecified gestational age ([facility]) Ordered: 01/21/2025 [facility] Comment on above: Ordered: 01/21/2025 HIV-1/HIV-2 antigen/antibody combination immunoassay HIV-1 and HIV-2 antibodies Lab Routine Missed menses , unspecified gestational age ([facility]) Ordered: 01/21/2025 [facility] Comment on above: Ordered: 01/21/2025 Luteinizing hormone Luteinizing hormone Lab Routine PCOS (polycystic ovarian syndrome) Ordered: 12/01/2024 [facility] Comment on above: Ordered: 12/01/2024 Neisseria gonorrhoea e DNA [Presence] in Unspecified specimen by SANJANA with probe detection Neisseria gonorrhea DNA probe, direct Lab Routine Exposure to STD Ordered: 03/18/2025 [facility] Comment on above: Ordered: 03/18/2025 Neisseria gonorrhoea e DNA [Presence] in Unspecified specimen by SANJANA with probe detection Neisseria gonorrhea DNA probe, direct Lab Routine Vaginal discharge during , antepartum ([facility]) Ordered: 04/15/2025 [facility] Comment on above: Ordered: 04/15/2025 End: 03-04-2025 Quantiferon TB Gold [facility] [employer] Work Phone: Comment on above: Once for 1 Occurrenc es starting 03/04/2025 until 03/04/2025 Reagin Ab [Presence] in Serum by RPR RPR Lab Routine Missed menses , unspecified gestational age ([facility]) Ordered: 01/21/2025 [facility] Comment on above: Ordered: 01/21/2025 Rubella antibody, IgG Rubella an tibody, IgG Lab Routine Missed menses , unspecified gestational age ([facility]) Ordered: 01/21/2025 [facility] Comment on above: Ordered: 01/21/2025 SURESWAB(R) ADVANCED VAGINITIS PLUS, TMA SURESWAB(R) ADVANCED VAGINITIS PLUS, TMA Pathology and Cytology Routine Vaginal discharge Ordered: 03/18/2025 [facility] Work Phone: Comment on above: Ordered: 03/18/2025 SURESWAB(R) ADVANCED VAGINITIS PLUS, TMA SURESWAB(R) ADVANCED VAGINITIS PLUS, TMA Pathology and Cytology Routine Vaginal discharge during , antepartum ([facility]) Ordered: 04/15/2025 [facility] Comment on above: Ordered: 04/15/2025 Thyrotropin [Units/volume] in Serum or Plasma TSH Lab Routine PCOS (polycystic ovarian syndrome) Ordered: 12/01/2024 [facility] Comment on above: Ordered: 12/01/2024 Thyroxine (T4) free [Mass/volume] in Serum or Plasma T4, free Lab Routine PCOS (polycystic ovarian syndrome) Ordered: 12/01/2024 [facility] Comment on above: Ordered: 12/01/2024 Immunizations Immunization Date Immunization Notes Care Provider Lizeth simon 05-14-2022 influenza, injectabl e, quadrivalent, preservative free Annel Yuen APPRENTICE FUNERAL DIRECTOR-PIERCING ARTIST Work Phone: [facility] 05-14-2022 influenza virus vacc ine, unspecified formulation Annel Yuen APPRENTICE FUNERAL DIRECTOR-PIERCING ARTIST Work Phone: [facility] 09-16-2020 COVID-19, mRNA, LNP- S, PF, 100mcg/0.5mL Dose Annel Yuen APPRENTICE FUNERAL DIRECTOR-PIERCING ARTIST Work Phone: [facility] 08-19-2020 COVID-19, mRNA, LNP- S, PF, 100mcg/0.5mL Dose Annel Yuen APPRENTICE FUNERAL DIRECTOR-PIERCING ARTIST Work Phone: [facility] 06-03-2020 influenza, injectabl e, quadrivalent, preservative free Annel Yuen APPRENTICE FUNERAL DIRECTOR-PIERCING ARTIST Work Phone: [facility] 03-08-2017 hepatitis A vaccine, pediatric/adolescent dosage, 2 dose schedule Annel Yuen APPRENTICE FUNERAL DIRECTOR-PIERCING ARTIST Work Phone: [facility] 03-08-2017 Human Papillomavirus 9-valent vaccine Annel Yuen APPRENTICE FUNERAL DIRECTOR-PIERCING ARTIST Work Phone: [facility] 03-08-2017 meningococcal oligosaccharide (groups A, C, Y and W-135) diphtheria toxoid conjugate vaccine (MCV4O) Annel Yuen [facility] Work Phone: [facility] 06-10-2012 human papilloma viru s vaccine, quadrivalent Annel Yuen APPRENTICE FUNERAL DIRECTOR-PIERCING ARTIST Work Phone: [facility] 06-10-2012 meningococcal polysaccharide (groups A, C, Y and W-135) diphtheria toxoid conjugate vaccine (MCV4P) Annel Yuen APPRENTICE FUNERAL DIRECTOR-PIERCING ARTIST Work Phone: [facility] 06-10-2012 varicella virus vaccine Annel Yuen APPRENTICE FUNERAL DIRECTOR-PIERCING ARTIST Work Phone: [facility] 04-23-2012 hepatitis A vaccine, pediatric/adolescent dosage, 2 dose schedule Annel Yuen APPRENTICE FUNERAL DIRECTOR-PIERCING ARTIST Work Phone: [facility] 04-23-2012 human papilloma viru s vaccine, quadrivalent Annel Yuen APPRENTICE FUNERAL DIRECTOR-PIERCING ARTIST Work Phone: [facility] 04-23-2012 tetanus toxoid, redu kaylyn diphtheria toxoid, and acellular pertussis vaccine, adsorbed Annel Yuen APPRENTICE FUNERAL DIRECTOR-PIERCING ARTIST Work Phone: [facility] 02-15-2005 diphtheria, tetanus toxoids and acellular pertussis vaccine, unspecified formulation Annel Yuen APPRENTICE FUNERAL DIRECTOR-PIERCING ARTIST Work Phone: [facility] 02-15-2005 measles, mumps and rubella virus vaccine Annel Yuen APPRENTICE FUNERAL DIRECTOR-PIERCING ARTIST Work Phone: [facility] 02-15-2005 poliovirus vaccine, inactivated Annel Yuen APPRENTICE FUNERAL DIRECTOR-PIERCING ARTIST Work Phone: [facility] 12-05-2000 diphtheria, tetanus toxoids and acellular pertussis vaccine, unspecified formulation Annel Yuen APPRENTICE FUNERAL DIRECTOR-PIERCING ARTIST Work Phone: [facility] 12-05-2000 haemophilus influenz ae type b conjugate and Hepatitis B vaccine Annel Yuen APPRENTICE FUNERAL DIRECTOR-PIERCING ARTIST Work Phone: [facility] 12-05-2000 measles, mumps and rubella virus vaccine Annel Yuen APPRENTICE FUNERAL DIRECTOR-PIERCING ARTIST Work Phone: [facility] 12-05-2000 poliovirus vaccine, inactivated Annel Yuen APPRENTICE FUNERAL DIRECTOR-PIERCING ARTIST Work Phone: [facility] 12-05-2000 varicella virus vaccine Annel Yuen APPRENTICE FUNERAL DIRECTOR-PIERCING ARTIST Work Phone: [facility] 04-11-2000 diphtheria, tetanus toxoids and acellular pertussis vaccine, unspecified formulation Annel Yuen APPRENTICE FUNERAL DIRECTOR-PIERCING ARTIST Work Phone: [facility] 04-11-2000 haemophilus influenz ae type b vaccine, PRP-OMP conjugate Annel Yuen APPRENTICE FUNERAL DIRECTOR-PIERCING ARTIST Work Phone: [facility] 02-01-2000 diphtheria, tetanus toxoids and acellular pertussis vaccine, unspecified formulation Annel Yuen APPRENTICE FUNERAL DIRECTOR-PIERCING ARTIST Work Phone: [facility] 02-01-2000 haemophilus influenz ae type b conjugate and Hepatitis B vaccine Annel Yuen APPRENTICE FUNERAL DIRECTOR-PIERCING ARTIST Work Phone: [facility] 02-01-2000 poliovirus vaccine, inactivated Annel Yuen APPRENTICE FUNERAL DIRECTOR-PIERCING ARTIST Work Phone: [facility] 1999 diphtheria, tetanus toxoids and acellular pertussis vaccine, unspecified formulation Annel Yuen APPRENTICE FUNERAL DIRECTOR-PIERCING ARTIST Work Phone: [facility] 1999 haemophilus influenz ae type b conjugate and Hepatitis B vaccine Annel Yuen APPRENTICE FUNERAL DIRECTOR-PIERCING ARTIST Work Phone: [facility] 1999 poliovirus vaccine, inactivated Annel Yuen APPRENTICE FUNERAL DIRECTOR-PIERCING ARTIST Work Phone: [facility] Payers Date Payer Category Payer Private Health Insurance [id number] 2025 Unknown [id number] 2024 [facility] [id number] 2024 Unknown [id number] 2024 Unknown [id number] 2022 Unknown [id number] [id number] 2022 Medicaid [id number] [id number] 2020 Private Health Insurance [id number] 2020 Unknown [id number] [id number] [id number] 1999 Unknown [id number] 2.16.840.1.345743.3.579.2.593 1999 Unknown [id number] 2.16.840.1.198184.3.579.2.593 1999 Unknown [id number] 2.16.840.1.938573.3.579.2.593 1999 Unknown [id number] 2.16.840.1.275347.3.579.2.593 1999 Unknown [id number] 2.16.840.1.556342.3.579.2.754 1999 Unknown [id number] 2.16.840.1.093041.3.579.2.173 1999 Unknown [id number] 2.16.840.1.885213.3.579.2.1259 1999 Unknown [id number] 2.16.840.1.611055.3.579.2.1259 1999 Unknown [id number] 2.16.840.1.862056.3.579.2.1259 1999 Unknown [id number] 2.16.840.1.833959.3.579.2.1259 1999 Unknown [id number] 2.16.840.1.661692.3.579.2.1259 1999 Unknown [id number] 2.16.840.1.863370.3.579.2.1259 1999 Unknown [id number] 2.16.840.1.008126.3.579.2.1259 1999 Unknown [id number] 2.16.840.1.168661.3.579.2.1259 1999 Unknown [id number] 2.16.840.1.723724.3.579.2.1259 1999 Unknown [id number] 2.16.840.1.116030.3.579.2.1259 1959 Private Health Insurance [id number] 1959 Unknown [id number] 1959 Unknown [id number] Unknown Regular Insurance [id number] Social History Date Type Detail Facility Tobacco smoking stat [facility] Tobacco smoking consumption unknown [facility] Work Phone: Start: 1999 Sex Assigned At Not on file [facility] Work Phone: Start: 03-03-2023 End: 12-05-2023 Tobacco smoking status MNIS Never smoked tobacco (finding) [facility] Start: 1999 Sex Assigned At Female F [facility] Start: 03-25-2024 End: 05-12-2025 Alcoholic beverage intake Lifetime non-drinker (finding) [facility] Start: 03-25-2024 End: 12-01-2024 History of Social function [facility] Start: 03-25-2024 End: 12-01-2024 Tobacco use panel [facility] Start: 03-05-2023 Tobacco use and exposure Smokeless tobacco non-user [facility] Start: 08-02-2023 Alcohol intake Ex-drinker (finding) [facility] How hard is it for y ou to pay for the very basics like food, housing, medical care, and heating Not hard at all [facility] Start: 05-04-2022 Gender identity Identifies as female gender (finding) [facility] Start: 12-03-2024 [facility] Start: 01-10-2023 Sex Female (finding) Huseyin araujo [facility] Clinical Notes 06-30-2021 to 05-12-2025 Patricia Roy NP - 05/12/2025 8:30 AM EDTSstephanie Arango, ROTO GRAVURE PRESS OPERATOR - 04/15/2025 10:10 AM DOMINGUEZ Lin - 03/18/2025 10:30 AM EDTSusan Spitler, ROTO GRAVURE PRESS OPERATOR - 02/18/2025 8:40 AM EDT Note Date & Type Note Facility 05-12-2025 History of Presen t illness Narrative Reason [...] nursing note reviewed. Exam conducted with a web assistant present. Vitals: Estimated body mass index is 33.25 kg/m as calculated from the following: Height as of 09/24/19: 5' 6 . Weight as of 04/15/25: 206 lb. BP: Patient's last menstrual period was 11/19/2024 (approximate). ASSESSMENT & PLAN ICD-10-CM 1. 24 weeks gestation of ([facility]) Z3A.24 POCT urinalysis dipstick manually resulted 2. Second trimester ([facility]) Z34.92 3. Diabetes mellitus screening Z13.1 CBC [...] Patricia Roy NP documented in this encounter [facility] 04-15-2025 History of Presen t illness Narrative Reason for Appointment: Patient ID: Yenifer Templeton is a 24 y.o. female who presents for Routine Visit Patient presents today for Annual Exam. and Return OB appointment. MEDICATIONS Current Outpatient Medications Medication Instructions metoclopramide (REGLAN) 10 mg, Oral, 3 times daily before meals, Take 1 tablet by mouth 30 minutes prior to meals 3 times daily as needed for nausea. ondansetron ODT (ZOFRAN-ODT) 4 mg, Every 8 [...] Respiratory: Negative. Cardiovascular: Negative. Gastrointestinal: Negative. Genitourinary: Positive for vaginal discharge. Musculoskeletal: Negative. Skin: Negative. Neurological: Negative. All other systems reviewed and are negative. Hematological: Negative. Endocrine: Negative. Allergic/Immunologic: Negative. OBJECTIVE Objective: Physical Exam Constitutional: Appearance: Normal appearance. She is well-developed. Genitourinary: Vulva normal. Breasts: Breasts are soft. Right: Normal. Left: Normal. Cardiovascular: Rate and Rhythm: Normal rate and [...] nursing note reviewed. Exam conducted with a web assistant present. Vitals: Estimated body mass index is 33.25 kg/m as calculated from the following: Height as of 09/24/19: 5' 6 . Weight as of this encounter: 206 lb. BP: 116/72 Patient's last menstrual period was 11/19/2024 (approximate). ASSESSMENT & PLAN ICD-10-CM 1. Second trimester ([facility]) Z34.92 Pap Smear 2. 21 weeks gestation of ([facility]) Z3A.21 Pap Smear 3. Nausea and vomiting during ([facility]) O21.9 metoclopramide (Reglan) 10 MG tablet 4. Vaginal discharge during , antepartum ([facility]) O26.899 N89.8 Return OB/Annual Exam: Patient presents today for an annual exam/routine obstetrics appointment. Patient is currently 21w0d . Patient is doing well and states she has no complaints. Pap was obtained without difficulty. Reglan sent to take prior to meals to help with nausea. Obtained vaginal cultures as well as patient previously had yeast infection. If comes back positive again then 1 Diflucan will be sent for treatment per Dr. Canchola if yeast infection is detected. --this is safe for short-term use in and able to be sent to pharmacy. Follow Up: Patient is to return to our office in 4 weeks for routine OB appointment Documented by Chelsie Arango LPN on behalf of: Nikunj Canchola DO documented in this encounter [facility] 03-18-2025 History of Presen t illness Narrative [...] PLAN ICD-10-CM 1. 17 weeks gestation of ([facility]) Z3A.17 POCT urinalysis dipstick manually resulted Alpha fetoprotein, maternal Alpha fetoprotein, maternal 2. Second trimester ([facility]) Z34.92 POCT urinalysis dipstick manually resulted Alpha fetoprotein, maternal Alpha fetoprotein, maternal 3. Subchorionic hematoma in first trimester, single or unspecified fetus ([facility]) O41.8X10 O46.8X1 4. Screening, , for anatomic survey ([facility]) Z36.89 US OB 14+ weeks anatomy scan [...] of: DOMINGUEZ Villagran documented in this encounter [facility] 03-18-2025 Note ADDENDUM #1 Current examination [...] nursing note reviewed. Exam conducted with a web assistant present. Vitals: Estimated body mass index is 33.25 kg/m as calculated from the following: Height as of 09/24/19: 5' 6 . Weight as of this encounter: 206 lb. BP: 124/76 Patient's last menstrual period was 11/19/2024 (approximate). ASSESSMENT & PLAN ICD-10-CM 1. Second trimester ([facility]) Z34.92 POCT urinalysis dipstick manually resulted 2. 13 weeks gestation of ([facility]) Z3A.13 New OB: Patient presents today for [...] or undercooked meat, and stay away from [facility]. Patient has been consulted regarding any further [...] Nikunj Canchola DO documented in this encounter [facility] 01-21-2025 History of Presen t illness [...] supervision of normal first in first trimester ([facility]) - Rapid drug screen, urine; Future Nurse Note: Pt unsure of doing the [place] billion to one lab. Advised if patient changes mind to make sure both labs and [place] done at the same time. PVU. OB [...] or undercooked meat, and stay away from [facility]. Patient has also been advised to not [...] Cris Gross MA documented in this encounter [facility] 01-13-2025 History of Presen t illness [...] nursing note reviewed. Exam conducted with a web assistant present. Vitals: Estimated body mass index is [...] Patricia Roy NP documented in this encounter [facility] 12-01-2024 History of Presen t illness [...] nursing note reviewed. Exam conducted with a web assistant present. Vitals: Estimated body mass index is [...] Nikunj Canchola DO documented in this encounter [facility] 12-03-2023 Miscellaneous Notes ----- Message from YASMINE Singh sent at 03/05/2023 5:31 PM EDT ----- Regarding: wellness exam Due December of - Annel Patient is switching pcp documented in this encounter [facility] 12-03-2023 Telephone encounter Note ----- Message from YASMINE Singh sent at 03/05/2023 5:31 PM EDT ----- Regarding: wellness exam Due December of - Annel [facility] 12-03-2023 Telephone encounter Note Patient is switching pcp [facility] 08-02-2023 History of Presen t illness Narrative [...] Singh 08/02/23 1251 documented in this encounter [facility] 06-30-2021 Note [facility] [place], [place] NAME: YENIFER ANTONIO DATE OF : MEDICAL REC#: [id number] SALES AND LEASING CONSULTANT: NIKOLAS FERNANDEZADMIGOR DATE: 06/30/2021 09:48:00 COMMERCIAL CREDIT SPECIALIST DATE: 06/30/2021 20:15 DICTATING PHYSICIAN: NIKUNJ CANCHOLA DICTATION DATE: 06/30/2021 12:00 OPERATIVE NOTE OPERATION DATE: 06/30/2021 PROCEDURE NAME: Diagnostic laparoscopy. PREOPERATIVE DIAGNOSES: 1. Pelvic pain. 2. Menorrhagia. 3. Dysmenorrhea. POSTOPERATIVE DIAGNOSES: 1. Pelvic pain. 2. Menorrhagia. 3. Dysmenorrhea. 4. Endometriosis posterior cul-de-sac. ANESTHESIA: General. SURGEON: Nikunj Canchola DO CELL OPERATION SUPERVISOR: Tiffany Seamon, TRAIN CLERK URINE OUTPUT: Yellow and clear. SPECIMENS: None. [...] correct x 2. The patient taken to [facility] Room in stable condition. Electronically Authenticated and Edited by: Nikunj Canchola DO on 07/03/2021 09:18 AM [facility] Signed and Approved by: DR NIKUNJ CANCHOLA . 07/03/2021 09:18:00 [facility] Evaluation note No assessment inform ation available [facility] Work Phone: Evaluation note Diagnosis Onset Date Anxiety and depression acute [facility] Work Phone: Evaluation note* Diagnosis Acute non-recurrent maxillary sinusitis- Primary Non-recurrent acute serous otitis media of both ears Elevated blood pressure reading Elevated blood pressure reading without diagnosis of hypertension documented in this encounter [facility] SystemEvaluation note* Diagnosis Female infertility Female infertility of unspecified origin PCOS (polycystic ovarian syndrome) Polycystic ovaries Abnormal uterine bleeding (AUB) Endometriosis Endometriosis, site unspecified Insulin resistance Other abnormal glucose documented in this encounter [facility]* Diagnosis Amenorrhea Absence of menstruation Missed menses , unspecified gestational age ([facility]) Encounter for supervision of normal first in first trimester ([facility]) documented in this encounter [facility]* Diagnosis Nausea and vomiting during - Primary Currently in first trimester with unknown gestational age Constipation, unspecified constipation type documented in this encounter [facility] note* Diagnosis Second trimester ([facility]) state, incidental 13 weeks gestation of ([facility]) documented in this encounter [facility]* Diagnosis 17 weeks gestation of ([facility]) Second trimester ([facility]) state, incidental Subchorionic hematoma in first trimester, single or unspecified fetus ([facility]) Screening, , for anatomic survey ([facility]) Encounter for anatomic survey Exposure to STD Vaginal discharge Leukorrhea, not specified as infective documented in this encounter [facility]* Diagnosis Second trimester ([facility]) state, incidental 21 weeks gestation of ([facility]) Nausea and vomiting during ([facility]) Vaginal discharge during , antepartum ([facility]) documented in this encounter [facility]* Diagnosis 24 weeks gestation of ([facility]) Second trimester ([facility]) state, incidental Diabetes mellitus screening Screening for diabetes mellitus documented in this encounter [facility] HealthcareInstructionsNot on filedocumented in this encounterUniversity [facility] SystemInstructionsNot on filedocumented in this encounterProUniversity [facility] System Summary Purpose Family History No Family History Records Found Relationship Condition Age at Onset Recorded Date/T terra Not Specified Malignant neoplasm Unknown Not Specified Heart disease Unknown Myocardial infarction Unknown father Hypertension Unknown Cerebrovascular accident (CVA) Unknown Relationship Condition Age at Onset Recorded Date/T terra paternal grandfather Malignant neoplasm Unknown paternal grandmother Heart disease Unknown Myocardial infarction Unknown father Hypertension Unknown Cerebrovascular accident (CVA) Unknown Advance Directives No Advanced Directives Records Found Advance Directive Response Recorded Date/ Time Advance Directives No November 24, 024 9:39am Chief Complaint and Reason for Visit Chief Complaint Establish Chief Complaint Establish discuss weight loss medication Reason for Visit Anxiety and depressi on Additional Source Comments INFORMATION SOURCE (unrecogn ized section and content) DATE CREATED AUTHOR 06/13/2022 [facility] DATE CREATED AUTHOR AUTHOR'S ORGANIZ ATION 08/09/2023 [facility] DATE CREATED AUTHOR AUTHOR'S ORGANIZ ATION 03/07/2025 [facility] DATE CREATED AUTHOR AUTHOR'S ORGANIZ ATION 05/17/2025 [facility] dical Specialists EPIC Care Teams (unrecognized sec tion and content) Broom Handle Dipper Relationship Specialty Start Date End Date Annel Yuen APPRENTICE FUNERAL DIRECTOR - EARLY EDUCATION TEACHER [address] [place] [address] PCP - General Nurse Practitioner 01/10/23 Team Status: Active Member Role Status Dates Michlele Pabon MD Primary Care Provider Active Team Status: Inactive Member Role Status Dates Michelle Pabon MD Primary Care Provide r, Attending Provider Active Start: December 05, 2023 End: December 05, 2023 Team Status: Inactive Member Role Status Dates Michelle Pabon MD Primary Care Provide r, Attending Provider Active Start: February 28, 2024 End: February 28, 2024 Broom Handle Dipper Relationship Specialty Start Date End Date Michelle Pabon MD [address] [place] [phone] PCP - General Family Medicine 03/25/24 Broom Handle Dipper Relationship Specialty Start Date End Date Annel Yuen, APPRENTICE FUNERAL DIRECTOR-PIERCING ARTIST [address] [place] [address] PCP - General Family Medicine 01/18/20 Broom Handle Dipper Relationship Specialty Start Date End Date Michelle Pabon MD [address] [place] [address] PCP - General Family Medicine 03/25/24 Broom Handle Dipper Relationship Specialty Start Date End Date Michelle Pabon MD [address] [place] [facility] [address] PCP - General Family Medicine 03/25/24 Broom Handle Dipper Relationship Specialty Start Date End Date Michelle Pabon MD [address] [place] [facility] [address] PCP - General Family Medicine 03/25/24 Broom Handle Dipper Relationship Specialty Start Date End Date Michelle Pabon MD [address] [place] [facility] [address] PCP - General Family Medicine 03/25/24 Broom Handle Dipper Relationship Specialty Start Date End Date Michelle Pabon MD [address] [place] [facility] [address] PCP - General Family Medicine 03/25/24 Broom Handle Dipper Relationship Specialty Start Date End Date Michelle Pabon MD [address] [place] [facility] [address] PCP - General Family Medicine 03/25/24 Broom Handle Dipper Relationship Specialty Start Date End Date Michelle Pabon MD [address] [place] [facility] [address] PCP - General Family Medicine 03/25/24 Broom Handle Dipper Relationship Specialty Start Date End Date Michelle Pabon MD [address] [place] [facility] [phone] PCP - General Family Medicine 03/25/24 Broom Handle Dipper Relationship Specialty Start Date End Date Michelle Pabon MD [address] [place] [facility] [address] PCP - General Family Medicine 03/25/24 Broom Handle Dipper Relationship Specialty Start Date End Date Annel Yuen, APPRENTICE FUNERAL DIRECTOR - EARLY EDUCATION TEACHER [address] [place] [address] PCP - General Nurse Practitioner 01/10/23 Broom Handle Dipper Relationship Specialty Start Date End Date Michelle Pabon MD [address] [place] [facility] [address] PCP - General Family Medicine 03/25/24 Broom Handle Dipper Relationship Specialty Start Date End Date Michelle Pabon MD [address] [place] [facility] [address] PCP - General Family Medicine 03/25/24 Broom Handle Dipper Relationship Specialty Start Date End Date Michelle Pabon MD [address] [place] [facility] [address] PCP - General Family Medicine 03/25/24 Broom Handle Dipper Relationship Specialty Start Date End Date Michelle Pabon MD [address] [place] [facility] [place] [address] PCP - General Family Medicine 03/25/24 Broom Handle Dipper Relationship Specialty Start Date End Date Michelle Pabon MD [address] [place] [facility] [place] [address] PCP - General Family Medicine 03/25/24 [...] BE BASED ON THE PRIMARY CLINICAL RECORDS. [employer] [facility]. provides no warranty or guarantee of the accuracy or completeness of information in this document.
[2025-05-26 07:58] LABS: Hematocrit 39.1 % (36.0-48.0); Hemoglobin 13.6 g/dL (12.0-16.0); Immature Granulocytes Abs Auto 0.06 10^3/uL (0.00-0.03); Immature Granulocytes Pct Auto 0.6 % (0.0-0.5); Lymphocytes Absolute Auto 1.8 10^3/uL (1.2-3.8); Mean Corpuscular HGB Conc 34.8 g/dL (29.9-35.2); Mean Corpuscular Hemoglobin 30.0 pg (26.7-34.0); Mean Corpuscular Volume 86.3 fL (81.0-99.0); Platelet Count 161 10^3/uL (150-450); Red Blood Count 4.53 10^6/uL (4.20-5.40); White Blood Count 9.7 10^3/uL (4.0-11.0)
[2025-05-26 08:39] LABS: Glucose 1 Hour 104 mg/dL (<130)
== END 2025-05-26 06:45 | disposition home or self-care (01) ==
LOC: LAB 06:47
PROVIDERS: PCP Family Medicine; Visit Provider Nurse Practitioner Family
DX: Z13.1 Encounter for screening for diabetes mellitus (principal)
CPT/HCPCS: 36415; 82950; 85025

== ENCOUNTER 2025-06-23 16:06 | Outpatient (OUT) | payer OTHER, SELFPAY ==
--- OUTSIDE RECORDS SUMMARY | 2025-05-12 07:30 | XMS_ITS | Encounter Summary ---
Author Organization [facility] Address [address] [place] [address] Care Team Providers Care Commissioning Agent Name Role Phone Michelle Pabon MD Primary Care Provider [phone] Reason for Visit * ReasonCommentsRoutine Visit Encounter Details DateTypeDepartmentCare Team (Latest Contact Info)Jojhizkhbtf89/01/2025 8:30 AM EDTRoutine [facility] [address] [place] [address] Patricia Roy, PRESS DEPARTMENT MANAGER [address] [place] [address] 24 weeks gestation of ([facility]); Second trimester ([facility]); Diabetes mellitus screening Social History Tobacco UseTypesPacks/DayYears UsedDateSmoking Tobacco: NeverAlcohol UseStandard Drinks/WeekCommentsNever0 (1 standard drink = 0.6 oz pure alcohol) Estimated Date of OeoimyklSmxhohwkGgn88/15/2026ased on last menstrual period of 11/19/2024 (Approximate)Sex and Gender InformationValueDate RecordedSex Assigned at BirthNot on fileLegal GqbOhbxep53/15/2023 10:09 PM EDTGender IdentityNot on fileSexual OrientationNot on filedocumented as of this encounter Last Filed Vital Signs Vital SignReadingTime TakenCommentsBlood Rsjnxwup642/7810 8:33 AM EDT Pulse--Temperature--Respiratory Rate--Oxygen Saturation--Inhaled Oxygen Concentration--Hyefwm14.4 kg (208 lb 1.9 oz)05/12/2025 8:33 AM EDTHeight--Body Mass Index33.59009/24/2019 12:00 PM ESTdocumented in this encounter Progress Notes * Patricia Roy NP - 05/12/2025 8:30 AM EDT Reason for Appointment: Patient ID: Yenifer Viveros is a 24 y.o. female who presents for Routine Visit Patient presents today for Return OB appointment. MEDICATIONS Current Outpatient Medications Medication Instructions DULoxetine (Cymbalta) [address] capsule 1 capsule, Every 24 hours metoclopramide (REGLAN) 10 mg, Oral, 3 times daily before meals, Take 1 tablet by mouth 30 minutes prior to meals 3 times daily as needed for nausea. metroNIDAZOLE (Metrogel) 0.75 % vaginal gel Vaginal, Daily NIFEdipine CC (ADALAT CC) 30 mg, Daily ondansetron ODT (ZOFRAN-ODT) 4 mg, Every 8 [...] nursing note reviewed. Exam conducted with a design engineering specialist present. Vitals: Estimated body mass index is 33.25 kg/m?? as calculated from the following: Height as of 09/24/19: 5' 6 . Weight as of 04/15/25: 206 lb. BP: Patient's last menstrual period was 11/19/2024 (approximate). ASSESSMENT & PLAN ICD-10-CM 1. 24 weeks gestation of ([facility]) Z3A.24 POCT urinalysis dipstick manually resulted 2. Second trimester ([facility]) Z34.92 3. Diabetes mellitus screening Z13.1 CBC Glucose tolerance, 1 hour CBC Glucose tolerance, 1 hour Return OB: Patient presents today for a routine obstetrics appointment. Patient is currently 24w6d . Patient states she is doing well but has complaints of being tired due to current . Patient has verbalizes frequent movement. labor precautions was discussed/given and patient was instructed to perform kick counts three times a day. Patient reports improvement in nausea and has gained 2 lbs since last visit. Orders Placed This Encounter Procedures CBC Glucose tolerance, 1 hour POCT urinalysis dipstick manually resulted Follow Up: Patient is to return to office in 2 weeks for routine OB appointment. Documented by Cris Gross MA on behalf of: Patricia Roy NP documented in this encounter Plan of Treatment DateTypeDepartmentCare Team (Latest Contact Info)Olggdhdovhj56/17/2025 3:30 PM ESTRoutine [facility] [address] [place] [address] Patricia Roy NP [address] [place] [address] 07/06/2025 10:40 AM ESTRoutine [facility] [address] [place] [address] Abad Canchola DO [address] [place] [address] NameTypePriorityAssociated DiagnosesOrder ScheduleCBCLabRoutine Diabetes mellitus screening Expected: 05/12/2025 (Approximate), Expires: 05/12/2026Glucose tolerance, 1 hour LabRoutine Diabetes mellitus screening Expected: 05/12/2025 (Approximate), Expires: 05/12/2026documented as of this encounter Procedures Procedure NamePriorityDate/TimeAssociated DiagnosisCommentsPOCT URINALYSIS TCWCWVNGTkfislv26/01/2025 8:42 AM EDT 24 weeks gestation of ([facility]) documented in this encounter Results * (ABNORMAL) POCT urinalysis dipstick manually resulted (05/12/2025 8:42 AM EDT) ComponentValueRef RangeTest MethodAnalysis TimePerformed AtPathologist SignatureColor, UAYellowClarity, UAClearGlucose, UANegativeNegative - 2000(110) ++++ mg/dLBilirubin, UANegativeNegative - 4(70) +++ mg/dLKetones, UA NegativeNegative - 160(16) ++++ mg/dLSpec Grav, UA1.0101 - 1.03Blood, UA NegativeNegative - 50 Randall/mcLpH, UA8.55 - 9Protein, UATraceNegative - 2000(20) ++++ mg/dLUrobilinogen, UA2.00.2 - 12 mg/dLLeukocytes, UA3+Negative - 500+++ Johnson/mcLNitrite, UANegativeNegative - PositiveSpecimen (Source)Anatomical Location / LateralityCollection Method / VolumeCollection TimeReceived Time Urine05/12/2025 8:42 AM EDT Narrative Authorizing ProviderResult TypeResult StatusPatricia Roy NPPOINT OF CARE TEST ENTER/EDIT ORDERABLESFinal Result documented in this encounter Visit Diagnoses Diagnosis 24 weeks gestation of ([facility]) Second trimester ([facility]) state, incidental Diabetes mellitus screening Screening for diabetes mellitus documented in this encounter Care Teams Team MemberRelationshipSpecialtyStart DateEnd Date Michelle Pabon MD [address] [place] [address] PCP - GeneralFamily Medicine03/25/24documented as of this encounter
--- OUTSIDE RECORDS SUMMARY | 2025-06-08 07:30 | XMS_ITS | Encounter Summary ---
Author Organization [facility] Address [address] [place] [address] Care Team Providers Care Cider Press Operator Name Role Phone Michelle Pabon MD Primary Care Provider [phone] Reason for Visit * ReasonCommentsRoutine Visit Encounter Details DateTypeDepartmentCare Team (Latest Contact Info)Zzbhicfcbym38/28/2025 8:30 AM EDTRoutine [facility] [address] [place] [address] Shagufta Perkins PA [address] [place], [facility] size inconsistent with dates ([facility]) (Primary Dx); 28 weeks gestation of ([facility]); Second trimester ([facility]) Social History Tobacco UseTypesPacks/DayYears UsedDateSmoking Tobacco: NeverAlcohol UseStandard Drinks/WeekCommentsNever0 (1 standard drink = 0.6 oz pure alcohol) Estimated Date of HjumjgzxOhiiwkmuFgw92/15/2026Based on last menstrual period of 11/19/2024 (Approximate)Sex and Gender InformationValueDate RecordedSex Assigned at BirthNot on fileLegal LacOpdcht64/15/2023 10:09 PM EDTGender IdentityNot on fileSexual OrientationNot on filedocumented as of this encounter Last Filed Vital Signs Vital SignReadingTime TakenCommentsBlood Xxnhnogp592/8210 8:41 AM EDT Pulse--Temperature--Respiratory Rate--Oxygen Saturation--Inhaled Oxygen Concentration--Mqffsk77.7 kg (213 lb 1.9 oz)06/08/2025 8:41 AM EDTHeight--Body Mass Index34.402 12:00 PM ESTdocumented in this encounter Progress Notes * DOMINGUEZ Villagran - 06/08/2025 8:30 AM EDT Reason for Appointment: Patient [...] 3 times daily as needed for nausea. NIFEdipine CC (ADALAT CC) 30 mg, Daily [...] nursing note reviewed. Exam conducted with a school program director present. Vitals: Estimated body mass index is 34.4 kg/m?? as calculated from the following: Height as of 09/24/19: 5' 6 . Weight as of this encounter: 213 lb 1.9 oz. BP: 124/82 Patient's last menstrual period was 11/19/2024 (approximate). Assessment/Plan ICD-10-CM 1. 28 weeks gestation of ([facility]) Z3A.28 POCT urinalysis dipstick manually resulted 2. Second trimester ([facility]) Z34.92 POCT urinalysis dipstick manually resulted Return OB: Patient presents today for a routine obstetrics appointment. Patient is currently 28w5d . Patient states she is doing well but has complaints of being tired due to current . Patient has verbalizes frequent movement. labor precautions was discussed/given and patient was instructed to perform kick counts three times a day. Orders Placed This Encounter Procedures POCT urinalysis dipstick manually resulted Follow Up: Patient is to return to office in 2 week for routine OB appointment. Documented by Patricia Roy NP on behalf of: DOMINGUEZ Villagran documented in this encounter Plan of Treatment DateTypeDepartmentCare Team (Latest Contact Info)Wxvndaufgkc73/17/2025 3:30 PM ESTRoutine [facility] [address] [place] [address] Patricia Roy NP [address] [place] [phone] 07/06/2025 10:40 AM ESTRoutine [facility] [address] [place] [address] Abad Canchola, DO [address] [place] [phone] documented as of this encounter Procedures Procedure NamePriorityDate/TimeAssociated DiagnosisCommentsPOCT URINALYSIS KQAGRFTZBjfgtgb23/28/2025 8:51 AM EDT 28 weeks gestation of ([facility]) Second trimester ([facility]) documented in this encounter Results * US OB follow up transabdominal approach (06/21/2025 3:24 PM EST)Anatomical RegionLateralityModalityBodyUltrasoundSpecimen (Source)Anatomical Location / LateralityCollection Method / VolumeCollection TimeReceived Time06/23/2025 9:25 AM EST Impressions 06/23/2025 9:47 AM EST Single, live intrauterine , current sonographic age of 32 weeks and 2 days, with an estimated date of delivery of August 14, 2025. * ??Estimated Weight (g) by Percentile is based upon an accurate estimated age based onlast menstrual period. ?? TRANSCRIBED BY: ? ELECTRONICALLY SIGNED BY: Miguel Thompson MD Narrative 06/23/2025 9:47 AM EST FINDINGS: A single, live intrauterine is present with normal cardiac rate of 147 ??beats per minute. Normal activity and amniotic fluid volume. Amniotic fluid index is 15 ??cm. ??Morphology is grossly normal. ??The current sonographic age is 32 weeks and 2 days, based on the following measurements: BPD ? 8.3 cm (33 ??weeks, 2 days) Head Circumference ?30.0 cm (33 ??weeks, 2 days) Abdominal Circumference ?26.8cm (30 ??weeks, 6 days) Femur Length ? 6.1cm (31 weeks, 3 days) Presentation ? Cephalic ? Weight (g) by Percentile ??69.3 % * These measurements result in an estimated date of delivery of ??August 14, 2025. ??The current estimated weight is ??1774 ??grams (3 ??pound, 15 ??ounces). ?? Comparison made with April 08, 2025 weight by percentile was 76.2% and delivery at that timewas August 23, 2025. Procedure Note Miguel Thompson MD - 06/23/2025 FINDINGS: A single, live intrauterine is present with normal cardiacrate of 147 beats per minute. Normal activity and amniotic fluidvolume. Amniotic fluid index is 15 cm. Morphology is grossly normal.The current sonographic age is 32 weeks and 2 days, based on the followingmeasurements: BPD 8.3 cm (33 weeks, 2 days) Head Circumference 30.0 cm (33 weeks, 2 days) Abdominal Circumference 26.8cm (30 weeks, 6 days) Femur Length 6.1cm (31 weeks, 3 days) Presentation Cephalic Weight (g) by Percentile 69.3 % * These measurements result in an estimated date of delivery of August. The current estimated weight is 1774 grams (3 pound, 15ounces). Comparison made with April 08, 2025 weight by percentile was 76.2%and delivery at that time was August 23, 2025. IMPRESSION: Single, live intrauterine , current sonographic age of 32 weeksand 2 days, with an estimated date of delivery of August 14, 2025. * Estimated Weight (g) by Percentile is based upon an accurateestimated age based on last menstrual period. TRANSCRIBED BY: ELECTRONICALLY SIGNED BY: Miguel Thompson MD Authorizing ProviderResult TypeResult StatusPatricia Roy NPIMG [facility] PROCEDURESFinal Result * (ABNORMAL) POCT urinalysis dipstick manually resulted (06/08/2025 8:51 AM EDT) ComponentValueRef RangeTest MethodAnalysis TimePerformed AtPathologist SignatureColor, UAYellowClarity, UAClearGlucose, UANegativeNegative - 1999(110) ++++ mg/dLBilirubin, UANegativeNegative - 4(70) +++ mg/dLKetones, UA NegativeNegative - 160(16) ++++ mg/dLSpec Grav, UA1.0201 - 1.03Blood, UA NegativeNegative - 50 Randall/mcLpH, UA6.05 - 9Protein, UAPositiveNegative - 1999(20) ++++ mg/dLUrobilinogen, UA1.00.2 - 12 mg/dLLeukocytes, UAPositive Negative - 500+++ Johnson/mcLComment:1+Nitrite, UANegativeNegative - Positive Specimen (Source)Anatomical Location / LateralityCollection Method / Volume Collection TimeReceived XofoDksbq17/28/2025 8:51 AM EDT Narrative Authorizing ProviderResult TypeResult StatusR[facility] TEST ENTER/EDIT ORDERABLESFinal Result documented in this encounter Visit Diagnoses Diagnosis size inconsistent with dates ([facility])- Primary 28 weeks gestation of ([facility]) Second trimester ([facility]) state, incidental size inconsistent with dates ([facility]) documented in this encounter Care Teams Team MemberRelationshipSpecialtyStart DateEnd Date Michelle Pabon MD [address] [place] [address] PCP - GeneralFamily Medicine03/25/24documented as of this encounter
--- OUTSIDE RECORDS SUMMARY | 2025-06-21 15:00 | XMS_ITS | Encounter Summary ---
Author Organization [facility] Address [address] [place] [address] Care Team Providers Care Adult High School Instructor Name Role Phone Michelle Pabon MD Primary Care Provider [phone] Encounter Details DateTypeDepartmentCare Team (Latest Contact Info)Srldaxxadkg09/10/2025 3:00 PM ESTAncillary Procedure [facility] [address] [place] [address] size inconsistent with dates ([facility]) Social History Tobacco UseTypesPacks/DayYears UsedDateSmoking Tobacco: NeverAlcohol UseStandard Drinks/WeekCommentsNever0 (1 standard drink = 0.6 oz pure alcohol) Estimated Date of PpsnoetqHeuliqkeXla46/15/2026Based on last menstrual period of 11/19/2024 (Approximate)Sex and Gender InformationValueDate RecordedSex Assigned at BirthNot on fileLegal PstOgvtdb63/15/2023 10:09 PM EDTGender IdentityNot on fileSexual OrientationNot on filedocumented as of this encounter Plan of Treatment DateTypeDepartmentCare Team (Latest Contact Info)Oxvrqpufcjz83/17/2025 3:30 PM ESTRoutine [facility] [address] [place] [address] Patricia Roy, NELLY [address] [place] [address] 07/06/2025 10:40 AM ESTRoutine [facility]SEPH[facility]N [address] [place] [address] Abad Canchola, DO [address] [place] [address] documented as of this encounter Procedures Procedure NamePriorityDate/TimeAssociated DiagnosisCommentsUS OB FOLLOW UP TRANSABDOMINAL ZUFSETOCCuwxnvt95/10/2025 3:24 PM EST size inconsistent with dates ([facility]) documented in this encounter Results * OB follow up transabdominal approach (06/21/2025 3:24 [...] MD Authorizing ProviderResult TypeResult StatusPatricia Roy NPIMG [facility] PROCEDURESFinal Result documented in this encounter Visit Diagnoses Diagnosis size inconsistent with dates ([facility]) documented in this encounter Care Teams Team MemberRelationshipSpecialtyStart DateEnd Date Michelle Pabon MD [address] [place] [address] PCP - GeneralFamily Medicine03/25/24documented as of this encounter
--- OUTSIDE RECORDS SUMMARY | 2025-06-21 15:40 | XMS_ITS | Encounter Summary ---
Author Organization [facility] Address [address] [place] [address] Care Team Providers Care Rn Resource Nurse Name Role Phone Michelle Pabon MD Primary Care Provider [phone] Reason for Visit * ReasonCommentsRoutine Visit Encounter Details DateTypeDepartmentCare Team (Latest Contact Info)Impgvgfdval25/10/2025 3:40 PM ESTRoutine [facility] [address] [place] [phone] Abad Canchola DO [address] [facility] [address] [place], [facility]11 28 weeks gestation of ([facility]); Third trimester ([facility]); induced hypertension, antepartum ([facility]) Social History Tobacco UseTypesPacks/DayYears UsedDateSmoking Tobacco: NeverAlcohol UseStandard Drinks/WeekCommentsNever0 (1 standard drink = 0.6 oz pure alcohol) Estimated Date of OtfkmkrxGqjdbrprDcu33/15/2026ased on last menstrual period of 11/19/2024 (Approximate)Sex and Gender InformationValueDate RecordedSex Assigned at BirthNot on fileLegal NcgZnqhsp50/15/2023 10:09 PM EDTGender IdentityNot on fileSexual OrientationNot on filedocumented as of this encounter Last Filed Vital Signs Vital SignReadingTime TakenCommentsBlood Xqrxqeqe478/8611 3:50 PM EST 130/80Pulse--Temperature--Respiratory Rate--Oxygen Saturation--Inhaled Oxygen Concentration--Dqjtfu47.9 kg (218 lb)06/21/2025 3:50 PM ESTHeight--Body Mass Index35.19009/24/2019 12:00 PM ESTdocumented in this encounter Progress Notes * Cecilia Khan, DI - 06/21/2025 3:40 PM EST Reason for Appointment: Patient ID: Yenifer Viveros is a 24 y.o. female who presents for No chief complaint on file. Patient presents today for Return OB appointment. [...] SYSTEMS Review of Systems: Review of Systems All other systems reviewed and are negative. OBJECTIVE Objective: Physical Exam Constitutional: Appearance: Normal [...] nursing note reviewed. Exam conducted with a client portfolio manager present. Vitals: Estimated body mass index is 35.19 kg/m?? as calculated from the following: Height as of 09/24/19: 5' 6 . Weight as of this encounter: 218 lb. BP: Patient's last menstrual period was 11/19/2024 (approximate). Assessment/Plan ICD-10-CM 1. 28 weeks gestation of ([facility]) Z3A.28 POCT urinalysis dipstick manually resulted 2. Third trimester ([facility]) Z34.93 POCT urinalysis dipstick manually resulted 3. induced hypertension, antepartum ([facility]) O13.9 Creatinine Protein, urine, 24 hour Pt and ptt CBC and differential Uric acid Lactate dehydrogenase ALT AST BUN Protein:Creatinine Ratio, Urine Creatinine Protein, urine, 24 hour Pt and ptt CBC and differential Uric acid Lactate dehydrogenase ALT AST BUN Return OB: Patient presents today for a routine obstetrics appointment. Patient is currently 30w4d . Patient states she is doing well but has complaints of being tired due to current . Patient has verbalizes frequent movement. labor precautions was discussed/given and patient was instructed to perform kick counts three times a day. Patient was given PIH and protein/creatine ratio to have completed. Patient does have a machine at home she was advised can check at home but not multiple times a day and if she gets a reading high do not do right away. Orders Placed This Encounter Procedures Creatinine Protein, urine, 24 hour Pt and ptt CBC and differential Uric acid Lactate dehydrogenase ALT AST BUN Protein:Creatinine Ratio, Urine POCT urinalysis dipstick manually resulted Follow Up: Patient is to return to office in 1 week for BP check. Documented by Cecilia Khan LPN on behalf of: Abad Canchola DO documented in this encounter Plan of Treatment DateTypeDepartmentCare Team (Latest Contact Info)Szxripdqrzj23/17/2025 3:30 PM ESTRoutine [facility] [address] [place] [phone] Patricia Roy NP [address] [place] [address] 07/06/2025 10:40 AM ESTRoutine [facility] [address] [place] [phone] JesikaAbad gray, DO [address] [facility] [address] [place], [place] [id number] NameTypePriorityAssociated DiagnosesOrder ScheduleCreatinineLabRoutine induced hypertension, antepartum ([facility]) Expected: 06/21/2025 (Approximate), Expires: 06/21/2026Protein, urine, 24 hour LabRoutine induced hypertension, antepartum ([facility]) Expected: 06/21/2025 (Approximate), Expires: 06/21/2026Pt and pttLabRoutine induced hypertension, antepartum ([facility]) Expected: 06/21/2025, Expires: 06/21/2026BC and differentialLabRoutine induced hypertension, antepartum ([facility]) Expected: 06/21/2025 (Approximate), Expires: 06/21/2026Uric acidLabRoutine induced hypertension, antepartum ([facility]) Expected: 06/21/2025 (Approximate), Expires: 06/21/2026Lactate dehydrogenaseLab Routine induced hypertension, antepartum ([facility]) Expected: 06/21/2025, Expires: 06/21/2026LTLabRoutine induced hypertension, antepartum ([facility]) Expected: 06/21/2025 (Approximate), Expires: 06/21/2026STLabRoutine induced hypertension, antepartum ([facility]) Expected: 06/21/2025 (Approximate), Expires: 06/21/2026UNLabRoutine induced hypertension, antepartum ([facility]) Expected: 06/21/2025, Expires: 06/21/2026Protein:Creatinine Ratio, UrineLab Routine induced hypertension, antepartum ([facility]) Ordered: 06/21/2025documented as of this encounter Procedures Procedure NamePriorityDate/TimeAssociated DiagnosisCommentsPOCT URINALYSIS VDAACXFBDiwtfae35/10/2025 3:47 PM EST 28 weeks gestation of ([facility]) Third trimester ([facility]) documented in this encounter Results * POCT urinalysis dipstick manually resulted (06/21/2025 3:47 PM EST)Component ValueRef RangeTest MethodAnalysis TimePerformed AtPathologist SignatureColor, UAYellowClarity, UAClearGlucose, UANegativeNegative - 2000(110) ++++ mg/dL Bilirubin, UANegativeNegative - 4(70) +++ mg/dLKetones, UANegativeNegative - 160(16) ++++ mg/dLSpec Grav, UA1.0201 - 1.03Blood, UANegativeNegative - 50 Randall/mcLpH, UA6.05 - 9Protein, UANegativeNegative - 2000(20) ++++ mg/dL Urobilinogen, UA1.00.2 - 12 mg/dLLeukocytes, UANegativeNegative - 500+++ Johnson/mcLNitrite, UANegativeNegative - PositiveSpecimen (Source)Anatomical Location / LateralityCollection Method / VolumeCollection TimeReceived Time Urine06/21/2025 3:47 PM EST Narrative Authorizing ProviderResult TypeResult StatusCorey Jesika DOPOINT OF CARE TEST ENTER/EDIT ORDERABLESFinal Result documented in this encounter Visit Diagnoses Diagnosis 28 weeks gestation of ([facility]) Third trimester ([facility]) state, incidental induced hypertension, antepartum ([facility]) Transient hypertension of , antepartum documented in this encounter Care Teams Team MemberRelationshipSpecialtyStart DateEnd Date Michelle Pabon MD [address] [place] [address] PCP - GeneralFamily Medicine03/25/24documented as of this encounter
--- OUTSIDE RECORDS SUMMARY | 2025-06-23 16:10 | XMS_ITS | Clinical Summary ---
Author Organization [facility] Address [address] [place] [address] Care Team Providers Care Fiscal Agent Name Role Phone Michelle Pabon MD Primary Care Provider [phone] Allergies No known active allergies Medications MedicationSigDispense QuantityRefillsLast FilledStart DateEnd DateStatus 27-1 MG tablet Take 1 tablet by mouth DailyActive ondansetron ODT (Zofran-ODT) 4 MG disintegrating tablet Take 4 mg by mouth every 8 (eight) hours if needed for [id number] metoclopramide (Reglan) 10 MG tablet Indications:Nausea and vomiting during ([facility])Take 1 tablet (10 mg) by mouth in the morning and 1 tablet (10 mg) at noon and 1 tablet (10 mg) in the evening. Take before meals. Take 1 tablet by mouth 30 minutes prior to meals 3 times daily as needed for nausea. 90 tablet 5Active Additional Information Patient not taking.Reported on 06/08/2025 DULoxetine (Cymbalta) [address] capsule 1 capsule 1 (one) time each day at the same timeActive NIFEdipine CC (Adalat CC) 30 MG 24 hr tablet Take 30 mg by mouth Daily5Active Encounters DateTypeDepartmentCare YrhnQufaaomrsxy34/10/2025 3:40 PM ESTRoutine [facility] [address] [place] [address] [place] [id number] Abad Canchola DO 28 weeks gestation of ([facility]); Third trimester ([facility]); induced hypertension, antepartum ([facility])06/21/2025 3:00 PM EST Ancillary Procedure [facility] [address] [place] [address] size inconsistent with dates ([facility])06/08/2025 8:30 AM EDTRoutine [facility] [address] [place] [address] Shagufta Perkins PA size inconsistent with dates ([facility]) (Primary Dx); 28 weeks gestation of ([facility]); Second trimester ([facility])06/08/2025amboo flowsheet [facility] [address] [place] [address] Shagufta Perkins PA 05/12/2025 8:30 AM EDTRoutine [facility] [address] [place] [address] Patricia Roy, NELLY 24 weeks gestation of ([facility]); Second trimester ([facility]); Diabetes mellitus fdffjlniy83/01/2025amboo flowsheet [facility] [address] [place] [address] Patricia Roy NP 05/10/2025Telephone [facility] [address] [place] [address] Nighat Moyer MA 04/19/2025Results Follow-Up [facility] [address] [place] [address] Edda Whitney LPN IGP,APTIMA HPV,AGE GDLN04/19/2025Orders Only [facility] [address] [place] [address] Cris Gross MA 04/16/2025bstract [facility] [address] [place] [address] Nighat Moyer MA 04/16/20[place] [address] Nighat Moyer MA 04/15/2025 10:10 [place] [address] Abad Canchola, Second trimester ([facility]); 21 weeks gestation of ([facility]); Nausea and vomiting during ([facility]); Vaginal discharge during , antepartum ([facility])5Clinisync Result Encounter [facility] Unsolicited Abad Canchola, 5Bamboo [place] [address] Abad Canchola, 04/08/2025 8:00 AM EDTAncillary [place] [address] from Last 3 Months Family History Medical HistoryRelationNameCommentsHyperlipidemiaFatherHypertensionFather RelationNameStatusCommentsFatherAliveMotherAlive Social History Tobacco UseTypesPacks/DayYears UsedDateSmoking Tobacco: Never Tobacco Cessation:Counseling Given: Not Answered Alcohol UseStandard Drinks/WeekCommentsNever0 (1 standard drink = 0.6 oz pure alcohol)Estimated Date of HbygiieoRpyasjhsDnm79/15/2026Based on last menstrual period of 11/19/2024 (Approximate)Sex and Gender InformationValueDate RecordedSex Assigned at BirthNot on fileLegal NsqGsfnmb62/15/2023 10:09 PM EDT Gender IdentityNot on fileSexual OrientationNot on file Last Filed Vital Signs Vital SignReadingTime TakenCommentsBlood Cihkilaq827/8611 3:50 PM EST 130/80Pulse--Temperature--Respiratory Rate--Oxygen Saturation--Inhaled Oxygen Concentration--Hzdvhc99.9 kg (218 lb)06/21/2025 3:50 PM AIRSiuepg755.6 cm (5' 6 )09/24/2019 12:00 PM ESTBody Mass Index35.19009/24/2019 12:00 PM EST Plan of Treatment DateTypeDepartmentCare Team (Latest Contact Info)Jtgelmebrva04/17/2025 3:30 PM ESTRoutine [facility] [address] [place] [address] Patricia Roy, JACQUARD TWINE POLISHER OPERATOR [address] [facility] [address] [place] [address] 07/06/2025 10:40 AM ESTRoutine [facility] [address] [place] [address] Abad Canchola DO [address] [facility] [address] [place], [place] [id number] Health MaintenanceDue DateLast DoneCommentsCOVID-19 Vaccine ( season) 502/12/2020, 08/19/2020Influenza Vaccine (#1)510/10/2021, 06/03/2020Pneumococcal Vaccine: Pediatrics (0 to 5 Years) and At-Risk Patients (6 to 64 Years)Aged OutNo longer eligible based on patient's age to complete this topic Procedures Procedure NamePriorityDate/TimeAssociated DiagnosisCommentsPOCT URINALYSIS LOTOZKNZYhsieov34/10/2025 3:47 PM EST 28 weeks gestation of ([facility]) Third trimester ([facility]) US OB FOLLOW UP TRANSABDOMINAL JFJMYFESOjlowbx76/10/2025 3:24 PM EST size inconsistent with dates ([facility]) POCT URINALYSIS BTOFAPXKDvetaon50/28/2025 8:51 AM EDT 28 weeks gestation of ([facility]) Second trimester ([facility]) POCT URINALYSIS NZDQIRUWRujmode36/01/2025 8:42 AM EDT 24 weeks gestation of ([facility]) RECURRENT VAGINITIS (HTRX)Qmnhlko4304/15/2025 11:40 AM EDT IGP,APTIMA HPV,AGE NPVJWtxwhan19/04/2025 10:42 AM EDT PAP GSWGGByvoqza94/04/2025 12:00 AM EDTUS OB 14+ WEEKS ANATOMY SCANRoutine 04/08/2025 9:16 AM EDT Screening, , for anatomic survey ([facility]) from Last 3 Months Results * POCT urinalysis dipstick manually resulted (06/21/2025 3:47 PM EST) Only the most recent of3 resultswithin the time period is included. ComponentValueRef RangeTest MethodAnalysis TimePerformed AtPathologist Signature Color, UAYellowClarity, UAClearGlucose, UANegativeNegative - 2000(110) ++++ mg/dLBilirubin, UANegativeNegative - 4(70) +++ mg/dLKetones, UANegativeNegative - 160(16) ++++ mg/dLSpec Grav, UA1.0201 - 1.03Blood, UANegativeNegative - 50 Randall/mcLpH, UA6.05 - 9Protein, UANegativeNegative - 2000(20) ++++ mg/dL Urobilinogen, UA1.00.2 - 12 mg/dLLeukocytes, UANegativeNegative - 500+++ Johnson/mcL Nitrite, UANegativeNegative - PositiveSpecimen (Source)Anatomical Location / LateralityCollection Method / VolumeCollection TimeReceived OvqdFwbrm18/10/2025 3:47 PM EST Narrative Authorizing ProviderResult TypeResult StatusCorey Jesika DOPOINT OF CARE TEST ENTER/EDIT ORDERABLESFinal Result * US OB follow up transabdominal approach [...] Miguel Thompson MD Authorizing ProviderResult TypeResult StatusPatricia Friedmanly [facility] [place] [facility] US PROCEDURESFinal Result * (ABNORMAL) RECURRENT VAGINITIS (HTRX) (04/15/2025 11:40 AM EDT)ComponentValue Ref RangeTest MethodAnalysis TimePerformed AtPathologist SignatureATOPOBIUM YHLXIMX397. - ppm04/16/2025 6:40 AM EDTHealthTrackRx at [facility] ATOPOBIUM VAGINAENot Metyagov86. - ppm04/16/2025 6:40 AM EDT [facility] 2,3 (BACTERIAL VAGINOSIS ASSOCIATED BACTERIA 2, 3); MOBILUNCUS PSI370. - ppm04/16/2025 6:40 AM EDTHealthTrackRx at [facility]BVAB 2,3 (BACTERIAL VAGINOSIS ASSOCIATED BACTERIA 2, 3); MOBILUNCUS SPP Not Zqbrommu48.961 - 24.689 ppm04/16/2025 6:40 AM EDTHealthTrackRx at [facility] ROSALBA ALBICANS, PARAPSILOSIS, FCEHNFCOHJ98.886(A)23.000 - 30.347 ppm 04/16/2025 6:40 AM EDTHealthTrackRx at LabPortCANDIDA ALBICANS, PARAPSILOSIS, TROPICALISDetected(A)23.000 - 30.347 ppm04/16/2025 6:40 AM EDTHealthTrackRx at LabPortCANDIDA FHATIGPY924.000 - 31.618 ppm04/16/2025 6:40 AM EDTHealthTrackRx at LabPortCANDIDA GLABRATANot Xjyvqfpw04.000 - 31.618 ppm04/16/2025 6:40 AM EDTHealthTrackRx at LabPortCANDIDA SLMKMU501.000 - 30.873 ppm04/16/2025 6:40 AM EDTHealthTrackRx at LabPortCANDIDA KRUSEINot Yjcewwrm71.000 - 30.873 ppm 04/16/2025 6:40 AM EDTHealthTrackRx at LabPortCHLAMYDIA ARYEPDXDOQD352.000 - 31.586 ppm04/16/2025 6:40 AM EDTHealthTrackRx at LabPortCHLAMYDIA TRACHOMATIS Not Mwkyjlpc32.000 - 31.586 ppm04/16/2025 6:40 AM EDTHealthTrackRx at [facility] GARDNERELLA WBKULUXUA11.384(A)19.961 - 24.689 ppm04/16/2025 6:40 AM EDT [facility] VAGINALISDetected(A)19.961 - 24.689 ppm 04/16/2025 6:40 AM EDTHealthTrackRx at LabPortMEGASPHAERA (TYPES 1, 2)019.961 - 24.689 ppm04/16/2025 6:40 AM EDTHealthTrackRx at LabPortMEGASPHAERA (TYPES 1, 2)Not Lavlxewk26.961 - 24.689 ppm04/16/2025 6:40 AM EDTHealthTrackRx at [facility] HospitalNEISSERIA CFLGOCMAYVM874.000 - 32.587 ppm04/16/2025 6:40 AM EDT [facility] HospitalNEISSERIA GONORRHOEAENot Kwcbftas39.000 - 32.587 ppm 04/16/2025 6:40 AM EDTHealthTrackRx at LabPortTRICHOMONAS TXLHISPBS295.000 - 31.995 ppm04/16/2025 6:40 AM EDTHealthTrackRx at [facility]Park[facility] HospitalTRICHOMONAS VAGINALIS Not Qclobtgm01.000 - 31.995 ppm04/16/2025 6:40 AM EDTHealthTrackRx at [facility] MYCOPLASMA KKMUIEWUGH881.961 - 24.689 ppm04/16/2025 6:40 AM EDTHealthTrackRx at [facility] ChildrenMYCOPLASMA GENITALIUMNot Iexwhsuo16.961 - 24.689 ppm04/16/2025 6:40 AM EDTHealthTrackRx at [facility] ChildrenSpecimen (Source)Anatomical Location / LateralityCollection Method / VolumeCollection TimeReceived TimeTissue 04/15/2025 11:40 AM EDT04/16/2025 1:52 AM EDT Narrative Authorizing ProviderResult TypeResult StatusCorey Jesika DOLAB BLOOD ORDERABLES Final ResultPerforming OrganizationAddressCity/State/ZIP CodePhone Number [facility] [address] [address] * IGP,APTIMA HPV,AGE GDLN (04/15/2025 10:42 AM EDT)ComponentValueRef RangeTest MethodAnalysis TimePerformed AtPathologist SignatureAGE GDLN ACOG TESTINGNote. TBHComment: ?? TESTS ? RESULT ??FLAG ??UNITS ?REF RANGE ??LAB ?? Clinician Provided Cytology Information ?? Source.............[facility] ?? Other.............. ?? No. of containers..01 ThinPrep Vial Age Algo ACOG Millie... ??21-29 ? 01 ?FLAG LEGEND: ?L-Low Normal,H-High Normal,LL-Alert Low,HH-Alert High <-Panic Low,>-Panic High,A-Abnormal,AA-Critical Abnormal Performed at: 01 =G ?[facility] ?? [address] [place], [place] ??[phone] ?? Beverly Nguyen MD, IGP, RFX APTIMA HPV ASCUNote.TBHComment: ?? TESTS ? RESULT ??FLAG ??UNITS ?REF RANGE ??LAB DIAGNOSIS: ?02 ?? NEGATIVE FOR INTRAEPITHELIAL LESION OR MALIGNANCY. ?? FUNGAL ORGANISMS MORPHOLOGICALLY CONSISTENT WITH ROSALBA SPECIES ARE ?? PRESENT. Specimen adequacy: ?02 ?? Satisfactory for evaluation. ??Endocervical and/or squamous metaplastic ?? cells (endocervical component) are present. Performed by: ? 02 ?? Sonia Beckham, Online Marketing Specialist (ASCP) . ? 02 Note: ? Note ?02 ?? The Pap smear is a screening test designed to aid in the ?? detection of premalignant and malignant conditions of the ?? uterine cervix. ??It is not a diagnostic procedure and ?? should not be used as the sole means of detecting cervical ?? cancer. ??Both false-positive and false-negative reports do ?? occur. Test Methodology: ? Note ?02 ?? This liquid based ThinPrep(R) pap test was screened with ?? the use of an image guided system. . ? 02 ?? The HPV DNA reflex criteria were not met with this specimen ?? result therefore, no HPV testing was performed. ?FLAG LEGEND: ?L-Low Normal,H-High Normal,LL-Alert Low,HH-Alert High <-Panic Low,>-Panic High,A-Abnormal,AA-Critical Abnormal Performed at: 02 WB ?[facility] ?? [address] [place], [place] ??[address] ?? Beverly Nguyen MD, Performed at: ??=G - [facility] [address] [place], [place] ??[id number] Fleet Driver: Beverly Nguyen MD, Phone: ??[phone] Performed at: ??WB - [facility] [address] ??[id number] Fleet Driver: Beverly Nguyen MD, Phone: ??[phone] Specimen (Source)Anatomical Location / LateralityCollection Method / Volume Collection TimeReceived Time04/15/2025 10:42 AM EDT04/15/2025 2:49 PM EDT Narrative [facility] - 04/19/2025 9:09 AM EDT SPATULA-ALONE ENDOCERVIX Authorizing ProviderResult TypeResult StatusCorey Jesika DOLAB BLOOD ORDERABLES Final ResultPerforming OrganizationAddressCity/State/ZIP CodePhone Number [facility] * Pap Smear (04/15/2025 12:00 AM EDT)Specimen (Source)Anatomical Location / LateralityCollection Method / VolumeCollection TimeReceived TimeSwabCervical swab / Unknown Narrative Authorizing ProviderResult TypeResult StatusCorey Jesika DOLAB CYTOLOGY ORDERABLESFinal ResultPerforming OrganizationAddressCity/State/ZIP CodePhone Number EXTERNAL LAB * US OB 14+ weeks anatomy scan (04/08/2025 9:16 AM EDT)Anatomical Region LateralityModalityBodyUltrasoundSpecimen (Source)Anatomical Location / LateralityCollection Method / VolumeCollection TimeReceived Time04/08/2025 2:25 PM EDT Addenda Addendum by Miguel Thompson MD on 04/13/2025 12:59 PM EDT ADDENDUM #1 Current examination demonstrated an incomplete anatomical evaluation, recommend follow-up imaging to evaluate spine, profile and for three-vessel cord. TRANSCRIBED BY: ? ELECTRONICALLY SIGNED BY: Miguel Thompson MD Impressions 04/08/2025 2:53 PM EDT Single, live intrauterine , current sonographic age of 20 weeks and 3 days, with an estimated date of delivery of August 23, 2025. * ??Estimated Weight (g) by Percentile is based upon an accurate estimated age based onlast menstrual period. ?? TRANSCRIBED BY: ? ELECTRONICALLY SIGNED BY: Miguel Thompson MD Narrative 04/08/2025 2:53 PM EDT FINDINGS: A single, live intrauterine is present with normal cardiac rate of 165 beats per minute. Normal activity and amniotic fluid volume. Morphology is grossly normal. ??The placenta is anterior, Grade I, inferior aspect 5 cm from the closed cervical os (4.5 cm length). ??The current sonographic age is 20 weeks and 3 days, based on the following measurements: ?BPD ? 4.7 cm (20 weeks, 1 day) ?Head Circumference ?17.8 cm (20 weeks, 2 days) ?Abdominal Circumference ?15.6 cm (20 weeks, 5 days) ?Femur Length ?3.3 cm (20 weeks, 3 days) ?Presentation ? Breech ?Placenta ? Anterior Grade I ? Weight (g) by Percentile ??76.2 % * These measurements result in an estimated date of delivery of August 23, 2025. ??The current estimated weight is 361 grams (0 pounds, 13 ounces). ?? Procedure Note Miguel Thompson MD - 04/08/2025 [...] BY: Miguel Thompson MD Authorizing ProviderResult TypeResult StatusAmy [facility] US PROCEDURES Edited Result - Final from Last 3 Months Insurance * Guarantor: Yenifer Viveros TypeRelation to PatientDate of BirthPhone Billing AddressPersonal/LychrjNwjq59[birth year][address] [place] [address] * Guarantor: Yenifer Viveros TypeRelation to PatientDate of BirthPhone Billing AddressPersonal/QfamtqMfuf83/09/2001 [address] [place] [address] Care Teams Team MemberRelationshipSpecialtyStart DateEnd Date Mihcelle Pabon MD [address] [place] [address] PCP - GeneralFamily Medicine03/25/24
--- OUTSIDE RECORDS SUMMARY | 2025-06-23 16:10 | XMS_ITS | Clinical Summary ---
Author Organization [facility] Address [address], [address] [place] [address] Care Team Providers Care Executive Chef Name Role Phone Annel Yuen [facility] Primary Care Provider [phone] Social History Tobacco UseTypesPacks/DayYears UsedDateSmoking Tobacco: Never Assessed CommentsUnknownSex and Gender InformationValueDate RecordedSex Assigned at Not on fileLegal EzmOeumft52/01/2023 10:58 AM EDTGender IdentityNot on file Sexual OrientationNot on file Plan of Treatment Health MaintenanceDue DateLast DoneCommentsDTaP/Tdap/Td vaccine (1 - Tdap) 2018Flu vaccine (#1)5COVID-19 Vaccine ( - season) 2025Polio vaccineAged OutNo longer eligible based on patient's age to complete this topic Insurance * Guarantor: Yenifer ViverosAccount TypeRelation to PatientDate of BirthPhone Billing AddressPersonal/OhenycWwbx14/09/[address] [facility] [place] [address] Care Teams Team MemberRelationshipSpecialtyStart DateEnd Date Annel Yuen, COMMANDING OFFICER TRAFFIC DIVISION - RISK CONTROL MANAGER [address] [place] [address] PCP - GeneralNurse Practitioner01/10/23
--- OUTSIDE RECORDS SUMMARY | 2025-06-23 16:12 | XMS_ITS | CCD ---
Author Organization [facility] Care Team Providers Care Electrophysiology Scientist Name Role Phone JESIKA, DR CALVIN Primary [...] FURLONG, DR МАРИЯ Olivares Primary Care Unavailable JEISKA, DR CALVIN Attending Unavailable Malick MEDICAL INSURANCE COLLECTOR - CHIEF WRITER, Annel Concha Primary Care Provider [phone] ANNEL YUEN Referring Unavailable MALICK, ANNEL Concha Primary Care Unavailable Michelle Pabon MD Primary Care Provider [phone] Malick MEDICAL INSURANCE COLLECTOR-MANAGER CORE, Annel Heath Primary Care Provider Unavailable Primary Care Provider Michelle Hernandez MD Primary Care Provider [phone] Michelle Pabon MD Primary Care Provider [phone] Malick APARICIO - CHIEF WRITER, Annel Concha Primary Care Provider RAFAEL LARA Referring Unavailable MALICK, ANNEL Kern Primary Care Unavailable Cm LAUGHLIN, Michelle Primary Care Provider [phone] ABAD CANCHOLA Attending Unavailable SAY ROY Attending Unavailable ABAD CANCHOLA Attending Unavailable SHAGUFTA ONEAL Attending Unavailable GREGORIO SHAGUFTA Referring Unavailable ABAD CANCHOLA Attending Unavailable SAY ROY Attending Unavailable GREGORIO, SHAGUFTA Attending Unavailable SAY ROY Referring Unavailable ABAD CANCHOLA Attending Unavailable Medications Current Medications MedicationDrug Class(es)DatesSig (Normalized)Sig (Original)amoxicillin 875 mg / clavulanate 125 mg oral tablet (1 source)Penicillin-class AntibacterialStart: 08-02-2023 End: 79-06-2279oqlh 1 tablet by mouth once in the morningamoxicillin-pot clavulanate (AUGMENTIN) 875-125 mg per tablet Take 1 tablet by mouth in the morningand 1 tablet before bedtime. Do all this for 7 days. 14 tablet 0 08/02/2023 08/09/2023 Activedocusate sodium 100 mg oral capsule (4 sources)Start: 01-13-2025 End: 80-24-3925lcej 1 capsule by mouth in the morningdocusate sodium (Colace) 100 MG capsule Indications: Constipation, unspecified constipation type Take 1 capsule (100 mg) by mouth in the morning and 1 capsule (100 mg) before bedtime. Do all this for10 days. 20 capsule 01/13/2025 01/23/2025 Activeloratadine 10 mg oral tablet (6 sources) End: 63-17-4116wsab 1 tablet by mouth once dailyloratadine (Claritin) 10 MG tablet Take 10 mg by mouth Daily 01/13/2025 Discontinuedlosartan potassium 25 mg oral tablet (5 sources)Angiotensin 2 Receptor BlockerStart: 02-28-2024 End: 38-27-3710ettc 25 mg by mouth once dailyLosartan Active 25 MG PO Daily February 28, 2024 12:00ammetFORMIN hydrochloride 500 mg oral tablet (6 sources)BiguanideStart: 12-01-2024 End: 34-93-1967nfoj 1 tablet by mouth at mealtimemetFORMIN (Glucophage) 500 MG tablet Indications: PCOS (polycystic ovarian syndrome) , Insulin resistance Take 1 tablet (500 mg) by mouth in the morning. Take with meals. 30 tablet 11 12/01/2024 01/13/2025 Discontinuedmetoclopramide 10 mg oral tablet (20 sources)Dopamine-2 Receptor AntagonistStart: 04-15-2025 End: 58-13-4271tqrbtisfmuhlke (Reglan) 10 MG tablet Indications: Nausea and vomiting during (HHS-HCC) Take 1 tablet (10 mg) by mouth in the morning and 1 tablet (10 mg) at noon and 1 tablet (10 mg) in theevening. Take before meals. Take 1 tablet by mouth 30 minutes prior to meals 3 times daily as needed for nausea. 90 tablet 1 04/15/2025 ActiveStart: 01-13-2025 End: 81-55-3628ntjdxCSLEGXVE 0.0075 mg/mg vaginal gel (3 sources)Nitroimidazole AntimicrobialStart: 05-10-2025 End: 58-25-6481vrcnuSQMXGCKM (Metrogel) 0.75 % vaginal gel Indications: BV (bacterial vaginosis) Insert into the vagina Daily for 5 days 70 g 05/10/2025 05/15/2025 ActiveMultiple Vitamin (multivitamin) tablet (6 sources) End: 85-46-5424woqx 1 tablet by mouth once dailyMultiple Vitamin (multivitamin) tablet Take 1 tablet by mouth Daily 01/13/2025 Discontinuedtake 1 tablet by mouth once dailyMultiple Vitamin (multivitamin) tablet Take 1 tablet by mouth Daily Ufftvm67 hr NIFEdipine 30 mg extended release oral tablet (7 sources)Dihydropyridine Calcium Channel BlockerStart: 24-50-1452dlad 1 tablet by mouth once daily, then take 1 tablet by mouth every twenty-four hours NIFEdipine CC (Adalat CC) 30 MG 24 hr tablet Take 30 mg by mouth Daily 10/20/2024 Activeondansetron 4 mg disintegrating oral tablet (20 sources)Serotonin-3 Receptor AntagonistStart: 52-87-7754pdjf 1 tablet by mouth every eight hours as needed for nauseaondansetron ODT (Zofran-ODT) 4 MG disintegrating tablet Take 4 mg by mouth every 8 (eight) hours ifneeded for nausea 02/22/2025 ActiveStart: 01-11-2025 End: 75-09-7983lnom 1 tablet by mouth every six hours for nauseaondansetron ODT (Zofran-ODT) 4 MG disintegrating tablet Indications: Nausea and vomiting during ([facility]) Take 1 tablet (4 mg) by mouth every 6 (six) hours if needed for nausea or vomiting 30 tablet 2 01/11/2025 02/10/2025 Activephentermine hydrochloride 37.5 mg oral tablet (3 sources)Sympathomimetic Amine AnorecticStart: 01-09-2023 End: 87-58-6140kgpc 33-33.9 tablets by mouth once daily before breakfast phentermine (ADIPEX-P) 37.5 mg tablet Indications: Class 1 obesity due to excess calories without serious comorbidity with body mass index (BMI) of 33.0 to 33.9 in adult Take 1 tablet (37.5 mg total)by mouth every morning before breakfast. 30 tablet 0 03/05/2023 08/02/2023 Discontinued (Therapy completed)predniSONE 20 mg oral tablet (1 source)Start: 08-02-2023 End: 18-06-6657hqxq 1 tablet by mouth at mealtimepredniSONE (DELTASONE) 20 mg tablet Take 1 tablet (20 mg total) by mouth in the morning for 7 days.Take with food. 7 tablet 0 08/02/2023 08/09/2023 ActivePrenatal 27-1 MG tablet (20 sources)take 1 tablet by mouth once dailyPrenatal 27-1 MG tablet Take 1 tablet by mouth Daily ActiveSemaglutide (Weight Loss) (1 source)Start: 92-82-0653Tgihxbjytjo (Weight Loss) (Wegovy) 0.25 mg/0.5 mL pen injector Active 0.25 MG SUBCUT every week February 28, 2024 12:00am administer weeks 1 through 4 of therapy Completed/Discontinued Medications MedicationDrug Class(es)DatesSig (Normalized)Sig (Original)24 hr buPROPion hydrochloride 150 mg extended release oral tablet (10 sources)AminoketoneStart: 03-06-2024 End: 89-96-7150shrd 1 tablet by mouth every twenty-four hours in the morning buPROPion XL (Wellbutrin XL) 150 MG 24 hr tablet Take 150 mg by mouth in the morning. 03/06/2024 12/01/2024 DiscontinuedStart: 12-05-2023 End: 28-76-5826sksv 150 mg by mouth once daily in the morningBupropion Hcl Active 150 MG PO Every morning January 07, 2024 12:59pm End: 39-04-6494qaLKVJcxl SR (Wellbutrin SR) 150 MG 12 hr tablet 12/01/2024 DiscontinuedDULoxetine 60 mg delayed release oral capsule (12 sources)Serotonin and Norepinephrine Reuptake InhibitorStart: 12-05-2023 End: 31-13-3955fpqs 1 capsule by mouth once dailyDuloxetine (Cymbalta) 30 mg capsule,delayed release(DR/EC) Discontinued 30 MG PO Daily 14 14 December 05, 2023 12:00am December 18, 2023 1:01pmStart: 01-09-2023 End: 62-30-7507xtvs 1 capsule by mouth once dailyDuloxetine (Cymbalta) 60 mg capsule,delayed release(DR/EC) Discontinued 60 MG PO Daily December 05, 2023 12:00am December 05, 2023 4:15pmethinyl estradiol 0.035 mg / norgestimate 0.25 mg oral tablet (8 sources)Progestin, EstrogenStart: 01-16-2024 End: 11-64-9568oqbcjuubeidv-ethinyl estradiol (Ortho-Cyclen) 0.25-35 MG-MCG tablet Indications: Encounter for surveillance of contraceptive pills Take 1 tablet by mouth Daily 84 tablet 3 01/16/2024 12/01/2024 DiscontinuedStart: 29-35-3174cagd 1 tablet by mouth once dailyNorgestimate-Ethinyl Estradiol Active 1 TAB PO Daily December 05, 2023 12:00amStart: 95-14-8431twxp 1 tablet by mouth once in the morningnorgestimate-ethinyl estradioL (ORTHO-CYCLEN) 0.25-35 mg-mcg per tablet Take 1 tablet by mouth in the morning. 12/18/2022 ActiveStart: 59-96-3715qtpl 1 tablet by mouth once in the morningnorgestimate-ethinyl estradioL (ORTHO-CYCLEN) 0.25-35 mg-mcg per tablet Take 1 tablet by mouth in the morning. 0 12/18/2022 Eyytho02 hr loratadine 10 mg / pseudoephedrine sulfate 240 mg extended release oral tablet (5 sources)alpha-Adrenergic AgonistStart: 08-02-2023 End: 89-27-0194xpnn 10-240 mg by mouth every twenty-four hours in the morning Loratadine-D 24HR 10-240 MG 24 hr tablet Take 1 tablet by mouth in the morning. 08/02/2023 12/01/2024 DiscontinuedStart: 08-02-2023 End: 31-38-4315fvsi 1 tablet by mouth once in the morning, then take 1 tablet by mouth every twenty-four hoursloratadine-pseudoephedrine (CLARITIN-D 24-hour) 10- 240 mg per 24 hr tablet Indications: Non-recurrent acute serous otitis media of both ears Take 1 tablet by mouth in the morning for 10 days. 10 tablet 0 08/02/2023 08/12/2023 Active Problems Active Problems Problem ClassificationProblemDateDocumented DateEpisodic/ChronicAnxiety disorders (3 sources)Anxiety disorder, unspecified; Translations: [Mixed anxiety and depressive disorder]Onset: [id number]eymtimrbt (5 sources)Endometriosis of pelvic peritoneum; Translations: [Endometriosis (clinical)]Onset: 313877-94-4634DffnabeSbcada infertility (2 sources)Female infertility; Translations: [Female infertility, unspecified] 87-75-2054KnejtorFzunqpmdvvyo complicating ; childbirth and the puerperium (2 sources)-induced hypertension; Translations: [Gestational [-induced] hypertension withoutsignificant proteinuria, unspecified trimester]10-05-0388AhwdhtuhCsgercnpedstn and screening for infectious disease (3 sources)Encounter for screening for human papillomavirus (HPV); Translations: [Exposure to sexually transmissible disorder]Onset: 936778-77-0047Legfhgsc Menstrual disorders (7 sources)Excessive and frequent menstruation with regular cycle; Translations: [Dysmenorrhea, unspecified]Onset: 08-21-1001GipaxlxRxkh disorders (2 sources)Major depression in full remission; Translations: [Major depressive disorder, single episode, in full remission]Onset: hronic Other complications of (4 sources)Vomiting of , unspecified; Translations: [Unspecified vomiting of , unspecified as to episode of care or not applicable] 91-57-0518RwoxmyqnMeudc complications of (2 sources) size does not accord with dates; Translations: [Uterine size- date discrepancy, unspecified trimester]32-02-3962RvjjhelkBzzfc endocrine disorders (2 sources)Polycystic ovary syndrome; Translations: [Polycystic ovarian syndrome]50-14-2749UsvobqjFlzvm female genital disorders (1 source)Unspecified dyspareunia; Translations: [UNSPECIFIED DYSPAREUNIA]Onset: 75-36-3701NhxtdjzBxafq female genital disorders (1 source)Abnormal uterine and vaginal bleeding, unspecified; Translations: [ABNORMAL UTERINE VAGINAL BLEED UNS]Onset: 39-30-3948StzwcfmKxrlz female genital disorders (2 sources)Abnormal uterine bleeding; Translations: [Abnormal uterine and vaginal bleeding, unspecified]18-01-7255VzifbffJdldy female genital disorders (4 sources)Vaginal discharge; Translations: [Other specified noninflammatory disorders of vagina]82-34-0556LmzwyhxyRmotj gastrointestinal disorders (2 sources)Constipation; Translations: [Constipation, unspecified]01-13-2025 EpisodicOther nutritional; endocrine; and metabolic disorders (1 source)Obesity, unspecified; Translations: [OBESITY UNSPECIFIED]Onset: 30-00-2205MkevemgMyfrl nutritional; endocrine; and metabolic disorders (2 sources)Insulin resistance; Translations: [Insulin resistance]12-01-2024 ChronicOther and delivery including normal (16 sources); Translations: [Encounter for supervision of normal , unspecified, unspecified trimester]97-36-4676QsbcikbaSsyhi screening for suspected conditions (not mental disorders or infectious disease) (8 sources)Encounter for screening for malignant neoplasm of cervix; Translations: [Patient encounter status]Onset: 99-28-3346GdkursfrVcdlgsrywfvjqb and other problems of amniotic cavity (2 sources)Subchorionic hematoma; Translations: [Other specified disorders of amniotic fluid and membranes, first trimester, not applicable or unspecified] 98-89-5785NhspmknoMjsgxhmh codes; unclassified (2 sources)Gestation period, 13 weeks; Translations: [13 weeks gestation of ]86-68-8899FwhvszyyTgppvccv codes; unclassified (2 sources)Gestation period, 17 weeks; Translations: [17 weeks gestation of ]94-10-2322BiiwmrevEzkcmuyk codes; unclassified (2 sources)Gestation period, 21 weeks; Translations: [21 weeks gestation of ]96-19-1995ZpyclsmqRfmyxyev codes; unclassified (2 sources)Gestation period, 24 weeks; Translations: [24 weeks gestation of ]75-83-1433FwxgtpfwXpuzmkvy codes; unclassified (4 sources)Gestation period, 28 weeks; Translations: [28 weeks gestation of ]41-18-9314HcsntoyuUeqwhexlszqr (1 source)CONTACT W/AND (SUSP) EXPOS COVID-19; Translations: [CONTACT W/AND (SUSP) EXPOS COVID-19]Onset: 52-72-2112Qeusugraxahe (2 sources)pre employment; Translations: [pre employment]Onset: 03-04-2025 Past or Other Problems Problem ClassificationProblemDateDocumented DateEpisodic/ChronicAbdominal pain (1 source)Pelvic and perineal pain; Translations: [PELVIC AND PERINEAL PAIN] Onset: 00-18-9167OakoboolEkng disorders (3 sources)Mood disorders; Translations: [DEPRESSION UNSPECIFIED]Onset: Other circulatory disease (1 source)Elevated blood pressure; Translations: [Elevated blood-pressure reading, without diagnosis of hypertension]96-71-2449LfmtbjwoZrdir upper respiratory infections (1 source)Acute maxillary sinusitis; Translations: [Acute maxillary sinusitis, unspecified]71-42-7536TbryxxjlNruftg media and related conditions (1 source)Acute non-suppurative otitis media - serous; Translations: [Acute serous otitis media, bilateral]42-64-6466EfguoqqrOqfuydvawcei (2 sources)Onset: Results Test NameValueInterpretationReference RangeFacilityUrinalysis macro (dipstick) panel (U)on 98-78-8256Tjabecayn, UANegativeNegative - 4(70) +++ mg/dLNOMS HealthcareBlood, UANegativeNegative - 50 Randall/mcLNOMS HealthcareClarity, UAClear NOMS HealthcareColor, UAYellowNOMS HealthcareGlucose, UANegativeNegative - 2000(110) ++++ mg/dLNOMS HealthcareInterpretation and review of laboratory resultsNormalNOMS HealthcareKetones, UANegativeNegative - 160(16) ++++ mg/dLNOMS HealthcareLeukocytes, UANegativeNegative - 500+++ Johnson/mcLNOMS HealthcareNitrite, UANegativeNegative - PositiveNOMS HealthcarepH, UA6.05 - 9[facility] Protein, UANegativeNegative - 1999(20) ++++ mg/dLNOMS HealthcareSpec Grav, UA 1.0201 - 1.03NOMS HealthcareUrobilinogen, UA1.00.2 - 12 mg/dLNOMS HealthcareNOMS HealthcareUrinalysis macro (dipstick) panel (U)on 68-98-6131Cqkcsjlxt, UA NegativeNegative - 4(70) +++ mg/dLNOMS HealthcareBlood, UANegativeNegative - 50 Randall/mcLNOMS HealthcareClarity, UAClearNOMS HealthcareColor, UAYellowNOMS HealthcareGlucose, UANegativeNegative - 1999(110) ++++ mg/dLNOMS Healthcare Interpretation and review of laboratory resultsAbnormalNOMS HealthcareKetones, UANegativeNegative - 160(16) ++++ mg/dLNOMS HealthcareLeukocytes, UAPositive Negative - 500+++ Johnson/[facility] CenterNOMS HealthcareComment on above:1+Nitrite, UANegative Negative - PositiveNOMS HealthcarepH, UA6.05 - 9NOMS HealthcareProtein, UA PositiveNegative - 1999(20) ++++ mg/dLNOMS HealthcareSpec Grav, UA1.0201 - 1.03 NOMS HealthcareUrobilinogen, UA1.00.2 - 12 mg/dLNOMS HealthcareNOMS Healthcare Urinalysis macro (dipstick) panel (U)on 06-89-0356Tmajmpalu, UANegativeNegative - 4(70) +++ mg/dLNOMS HealthcareBlood, UANegativeNegative - 50 Randall/mcLNOMS HealthcareClarity, UAClearNOMS HealthcareColor, UAYellowNOMS HealthcareGlucose, UANegativeNegative - 1999(110) ++++ mg/dLNOMS HealthcareInterpretation and review of laboratory resultsAbnormalNOMS HealthcareKetones, UANegativeNegative - 160(16) ++++ mg/dLNOMS HealthcareLeukocytes, UA3+Negative - 500+++ Johnson/mcLNOMS HealthcareNitrite, UANegativeNegative - PositiveNOMS HealthcarepH, UA8.55 - 9 NOMS HealthcareProtein, UATraceNegative - 2000(20) ++++ mg/dLNOMS HealthcareSpec Grav, UA1.011 - 1.03NOMS HealthcareUrobilinogen, UA2.00.2 - 12 mg/dLNOMS HealthcareNOMS HealthcareIGP,APTIMA HPV,AGE GDLNon 62-91-3218XXU GDLN ACOG TESTINGNote.[facility] HealthcareComment on above:TESTS RESULT FLAG UNITS REF RANGE LAB Clinician Provided Cytology Information Source.............[facility] Other.............. No. of containers..01 ThinPrep Vial Age Algo ACOG Millie... - 01 FLAG LEGEND: L-Low Normal,H-High Normal,LL-Alert Low,HH-Alert High <-Panic Low,>-Panic High,A-Abnormal,AA-Critical Abnormal Performed at: 01 =[facility] [address] Beverly Nguyen MD, IGP, RFX APTIMA HPV ASCUNote.[facility] HealthcareComment on above:TESTS RESULT FLAG UNITS REF RANGE LAB DIAGNOSIS: 02 NEGATIVE FOR INTRAEPITHELIAL LESION OR MALIGNANCY. FUNGAL ORGANISMS MORPHOLOGICALLY CONSISTENT WITH ROSALBA SPECIES ARE PRESENT. Specimen adequacy: 02 Satisfactory for evaluation. Endocervical and/or squamous metaplastic cells (endocervical component) are present. Performed by: 02 Sonia Beckham, Plant Reliability Engineer ([facility] [place]) . 02 Note: Note 02 The Pap [...] <-Panic Low,>-Panic High,A-Abnormal,AA-Critical Abnormal Performed at: [address] [address] Beverly Nguyen MD, Performed at: = - [facility] [address] [id number] [employer]: Beverly Nguyen MD, Phone: [phone] Performed at: [facility] [id number] [employer]: Beverly Nguyen MD, Phone: [phone] SPATULA-ALONE ENDOCERVIX CLINISYNCINTERMOUNTAIN HEALTHCARE HealthcareAFP, SERUM, OPEN SPINA BIFIDAon 80-62-4995VGB MOM1.10. NOMS HealthcareAFP VALUE34.4 ng/mL.NOMS HealthcareCOMMENT:Comment.NOMS HealthcareComment on above:Giselle Merida, Ph.D., [facility] Director References: Available Upon Request. Multiples Of Median Cutoffs For AFP Elevations Sellers 2.5 Black 2.8 IDD 2.0 Twins 4.5 Abbreviation Definitions IDD - Insulin Dep Diabetes OSBR - Open Spina Bifida Risk For further inquiries contact [facility] at [phone]. This test was developed and its performance characteristics determined by [employer]. It has not been cleared or approved by the Food and Drug Administration. Performed at: [facility] [address] [place], [place] [id number] [employer]: Nirmal Means [facility], Phone: [phone] GEST. AGE ON COLLECTION DATE17.0. weeksNOSD HealthcareGESTAT. AGE BASED ONLMP. NOMS HealthcareComment on above:Recalculations are not recommended when gestational dating by LMP and ultrasound are within 10 days. INSULIN DEP DIABETESNo.NOMS HealthcareINTERPRETATIONComment.[facility] Healthcare Comment on above:Interpretation: Screen Negative This result is screen negative [...] Customer Services to discuss available options. The [place] [employer] recommends amniocentesis be offered to women age 35 and older. MATERNAL AGE AT EDD25.9. yrNOSD HealthcareMULTIPLE GESTATIONNo.[facility] OSBR RISK 1 SV1757.NOMS HealthcareRACECaucasian.NOMS HealthcareRESULTSReport. NOMS HealthcareTEST RESULTS:Negative.NOMS KxcojlzhraSOFGSL170. lbsNOSD HealthcarePREGNANCY N N LMP [id number] 0 17 N 1 Y 206 N N N N N White/ CLINISYNCNOMS HealthcareRECURRENT VAGINITIS (HTRX)on 03-82-8276QYQTXHAFU VAGINAE 0NOMS HealthcareATOPOBIUM VAGINAENot detectedNOMS HealthcareBVAB 2,3 (BACTERIAL VAGINOSIS ASSOCIATED BACTERIA 2, 3); MOBILUNCUS DQM8PNPZ HealthcareBVAB 2,3 (BACTERIAL VAGINOSIS ASSOCIATED BACTERIA 2, 3); MOBILUNCUS SPPNot detectedNOMS HealthcareCANDIDA ALBICANS, PARAPSILOSIS, OYYNYSBRSZ24.725AbnormalNOMS HealthcareCANDIDA ALBICANS, PARAPSILOSIS, TROPICALISDetectedAbnormalNOMS HealthcareCANDIDA YZOLUYJB6JLJC HealthcareCANDIDA GLABRATANot detectedNOMS HealthcareCANDIDA RCVZKW8KCXM HealthcareCANDIDA KRUSEINot detectedNOMS HealthcareCHLAMYDIA DZYVRYLKHXP3WHDC HealthcareCHLAMYDIA TRACHOMATISNot detected NOMS HealthcareGARDNERELLA SOBVEZCUN03.732AbnormalNOMS HealthcareGARDNERELLA VAGINALISDetectedAbnormalNOMS HealthcareInterpretation and review of laboratory resultsAbnormalNOMS HealthcareMEGASPHAERA (TYPES 1, 2)0[facility] MEGASPHAERA (TYPES 1, 2)Not detectedNOMS HealthcareMYCOPLASMA DTIYAAMTWN3CSCM HealthcareMYCOPLASMA GENITALIUMNot detectedNOMS HealthcareNEISSERIA GONORRHOEAE0 NOMS HealthcareNEISSERIA GONORRHOEAENot detectedNOMS HealthcareTRICHOMONAS [id number] HealthcareTRICHOMONAS VAGINALISNot detectedNOMS HealthcareNOMS HealthcareUS OB LIMITED 1+ FETUSESon 68-86-3664JH OB LIMITED 1+ FETUSESFINDINGS: Cephalic presentation. Anterior placenta. Heart rate 159 bpm. single viable intrauterine versus , cephalic presentation, anterior placenta, heart rate 159 bpm. Normal cardiac activity. No subchorionic hemorrhage. IMPRESSION: Single viable intrauterine , no subchronic hemorrhage. TRANSCRIBED BY: ELECTRONICALLY SIGNED BY: Javier Barrios AvailableComment on above:Order Comment: US OB VIABILITY PLEASE PERFORM TRANSVAGINAL ULTRASOUND IF INDICATED Patient's last menstrual period was 11/19/2024 (approximate).Urinalysis macro (dipstick) panel (U)on 07-80-0492Ghxneumal, UANegativeNegative - 4(70) +++ mg/dL [facility] HealthcareBlood, UANegativeNegative - 50 Randall/mcLNOMS HealthcareClarity, UA ClearNOMS HealthcareColor, UAYellowNOMS HealthcareGlucose, UANegativeNegative - 2000(110) ++++ mg/dLNOMS HealthcareInterpretation and review of laboratory resultsAbnormalNOMS HealthcareKetones, UANegativeNegative - 160(16) ++++ mg/dL NOMS HealthcareLeukocytes, UAPositiveNegative - 500+++ Johnson/mcLNOMS Healthcare Comment on above:3+Nitrite, UANegativeNegative - PositiveNOMS HealthcarepH, UA75 - 9NOMS HealthcareProtein, UANegativeNegative - 2000(20) ++++ mg/dLNOMS HealthcareSpec Grav, UA1.021 - 1.03NOMS HealthcareUrobilinogen, UA1.00.2 - 12 mg/dLNOMS HealthcareNOMS HealthcareQuantiFERON Tbon 11-40-3786LAJ InterNegative NormalNEGMercy Bristol HospitalComment on above:Result Comment: Quantiferon TB Gold Plus Interferon gamma [...] Mycobacterium tuberculosis Infection -- [place], 2010 (http://www.cdc.gov/mmwr/preview/mmwrhtml/sr4524j5.htm), for more information concerning test performance in low-prevalence populations and use in occupational screening.Performed By: #### QFTB #### [facility] [address] [place] [address] [employer]: Lance Chester MDQuant Juan minus NIL9.92 IU/mLNormalMercy Blue Grass HospitalComment on above:Performed By: #### QFTB #### [facility] [address] [place] [address] [employer]: Lance Chester MDQuanti TB1 minus NIL0.00 IU/mLNormal0.00-0.34 [facility] HospitalComment on above:Performed By: #### QFTB #### [facility] [address] [place] [address] [employer]: Lance Chester MDQuanti TB2 minus NIL0.00 IU/mLNormal0.00-0.34 [facility] HospitalComment on above:Performed By: #### QFTB #### [facility] [address] [place] [address] [employer]: Lance Chester MDQuantiFERON NIL0.08 IU/mLNormalMerOhioHealth Grant Medical Center HospitalComment on above:Performed By: #### QFTB #### [place] [address] [employer]: Lance Chester MDUrinalysis macro (dipstick) panel (U)on 59-28-7248Qrslormod, UANegativeNegative - 4(70) +++ mg/dLNOMS HealthcareBlood, UANegativeNegative - 50 Randall/mcLNOMS HealthcareClarity, UAClearNOMS Healthcare Color, UAYellowNOMS HealthcareGlucose, UANegativeNegative - 2000(110) ++++ mg/dL N[facility]S HealthcareInterpretation and review of laboratory resultsNormalNOMS HealthcareKetones, UANegativeNegative - 160(16) ++++ mg/dLNOMS Healthcare Leukocytes, UAPositiveNegative - 500+++ Johnson/mcLNOMS HealthcareComment on above: largeNitrite, UANegativeNegative - PositiveNOMS HealthcarepH, UA75 - 9NOMS HealthcareProtein, UANegativeNegative - 1999(20) ++++ mg/dLNOMS HealthcareSpec Grav, UA1.0151 - 1.03NOMS HealthcareUrobilinogen, UA0.20.2 - 12 mg/dLNOMS HealthcareNOMS HealthcareUS OB TRANSVAGINALon 87-65-7311Ceg[place] [address] Ultrasound Report Signed Patient: MEREDITH TEMPLETON MR#: [id number] : 2000 Acct:[id number] Age/Sex: 24 / F ADM Date: 02/11/25 Loc: US Attending Dr: Abad Canchola D.O. Ordering Physician: Abad Canchola D.O. Date of Service: 02/11/25 Procedure(s): US OB transvaginal Accession Number(s): [id number] cc: Michelle Pabon M.D.; Abad Canchola D.O. [place] [id number] Patient Name: MEREDITH TEMPLETON MRN: [id number] date: 2000 Sex: F Assigned Patient Location: US Current Patient Location: US Accession/Order Number: [id number] Exam Date: 02/11/2025 09:39 Report Date: 02/11/2025 09:43 At the request of: ABAD CANCHOLA DO Procedure: US OB transvaginal ULTRASOUND [...] Gillette M.D. 02/11/2025 9:43 AM Dictation Location: [place] [address] Electronically authenticated by: [id number] Y Date: 02/11/2025 09:43 Dictated By: Misa Gillette M.D. Signed By: 02/11/25945 DD/ 2 TD/TT: Ceo And President:DKHRadiology, Radiologist, - 02/11/2025 [place] [address] Ultrasound Report Signed Patient: MEREDITH TEMPLETON MR#: [id number] : 2000 Acct:[id number] Age/Sex: 24 / F ADM Date: 02/11/25 Loc: US Attending Dr: Abad Canchola D.O. Ordering Physician: Abad Canchola D.O. Date of Service: 02/11/25 Procedure(s): US OB transvaginal Accession Number(s): [id number] cc: Michelle Pabon M.D.; Abad Canchola D.O. [place] [id number] Patient Name: MEREDITH TEMPLETON MRN: [id number] date: 2000 Sex: F Assigned Patient Location: US Current Patient Location: US Accession/Order Number: [id number] Exam Date: 02/11/2025 09:39 Report Date: 02/11/2025 09:43 At the request of: ABAD CANCHOLA DO Procedure: US OB transvaginal ULTRASOUND [...] Gillette M.D. 02/11/2025 9:43 AM Dictation Location: [place] [address] Electronically authenticated by: [id number] Y Date: 02/11/2025 09:43 Dictated By: Misa Gillette M.D. Signed By: 02/11/25 0946 DD/ TD/TT: Ceo And President: [facility] HospitalRadiology Study observation (narrative)[facility] HospitalUS OB TRANSVAGINALOrdered By: Radiologist Radiology on 05-88-8013ACVJPutnam County Memorial Hospital Work Phone: HCG ( test) Ql (U)on 47-90-7910Yihglwonhjpiif and review of laboratory resultsAbnormalNOWashington University Medical CenterPreg Test, UrPositive NegativeNOAscension Columbia Saint Mary's HospitalMLR HEMOGLOBIN A1Con 12-75-9484Yddxsjy [Mass/Vol]91 mg/dLPutnam County Memorial HospitalHbA1c (Bld) [Mass fraction]4.8 %4.5 - 6.2 %[facility] HealthcareComment on above:ADA RECOMMENDED LIMIT 4.0 - 6.0 ADA THERAPEUTIC TARGET < 7.0 ACTION SUGGESTED > 7.0 CLINISYNCNOMS HealthcareUS OB TRANSVAGINALon 54-79-4018TO OB TRANSVAGINALEXAM: US OB TRANSVAGINAL HISTORY: Dating. COMPARISON: None [...] II, MD, PHD at 22-Jan-2025 10:24:02 AM [facility] TeleradiologyNormalNot AvailableComment on above:Order Comment: US OB TRANSVAGINAL Patient's last menstrual period was 11/19/2024 (approximate).Urinalysis macro (dipstick) panel (U)on 37-59-5076Yfxexjyiv, UANegativeNegative - 4(70) +++ mg/dL [facility] HealthcareBlood, UANegativeNegative - 50 Randall/mcLNOMS HealthcareClarity, UA ClearNOMS HealthcareColor, UAYellowNOMS HealthcareGlucose, UANegativeNegative - 2000(110) ++++ mg/dLNOMS HealthcareInterpretation and review of laboratory resultsNormalNOMS HealthcareKetones, UANegativeNegative - 160(16) ++++ mg/dLNOMS HealthcareLeukocytes, UATraceNegative - 500+++ Johnson/mcLNOSD HealthcareNitrite, UA NegativeNegative - PositiveNOMS HealthcarepH, UA65 - 9NOMS HealthcareProtein, UA NegativeNegative - 2000(20) ++++ mg/dLNOMS HealthcareSpec Grav, UA1.011 - 1.03 N[facility]S HealthcareUrobilinogen, UA0.20.2 - 12 mg/dLNOBarnes-Jewish Hospital Healthcare Urinalysis macro (dipstick) panel (U)on 30-11-8854Djhrqsujj, UANegativeNegative - 4(70) +++ mg/dLNOSD HealthcareBlood, UANegativeNegative - 50 Randall/mcLNOSD HealthcareClarity, UAClearNOSD HealthcareColor, UAYellowNOSD HealthcareGlucose, UANegativeNegative - 2000(110) ++++ mg/dLNOSD HealthcareInterpretation and review of laboratory resultsAbnormalNOSD HealthcareKetones, UANegativeNegative - 160(16) ++++ mg/dLNOSD HealthcareLeukocytes, UAPositiveNegative - 500+++ Johnson/mcL NOMS HealthcareComment on above:LargeNitrite, UANegativeNegative - PositiveNOMS HealthcarepH, UA75 - 9NOMS HealthcareProtein, UANegativeNegative - 2000(20) ++++ mg/dLNOSD HealthcareSpec Grav, UA1.0151 - 1.03NOSD HealthcareUrobilinogen, UA0.2 0.2 - 12 mg/dLNOBarnes-Jewish Hospital HealthcareALL CBC WITH AUTO DIFFon 12-01-2024 BASOPHILS ABSOLUTE AUTO0.1NOMS HealthcareBasophils/100 WBC (Bld)0.5 %0.2 - 2.0 % [facility] HealthcareEosinophils/100 WBC (Bld)2.6 %0.9 - 7.0 %[facility] Healthcare Erythrocyte distribution width (RBC) [Ratio]12.2 %11.0 - 15.0 %[facility] Hematocrit (Bld) [Volume fraction]42.8 %36.0 - 48.0 %[facility] HospitalHemoglobin (Bld) [Mass/Vol]14.8 g/dL12.0 - 16.0 g/dLINTERMOUNTAIN HEALTHCARE HealthcareIMMATURE GRANULOCYTES ABS AUTO0.01NOMS HealthcareImmature granulocytes/100 WBC (Bld)0.1 %0.0 - 0.5 % [facility] HospitalLYMPHOCYTES ABSOLUTE AUTO2.8NOSD HealthcareLymphocytes/100 WBC (Bld)29.5 %20.5 - 60.0 %[facility] CenterH (RBC) [Entitic mass]29.6 pg26.7 - 34.0 pgMineral Area Regional Medical CenterHC (RBC) [Mass/Vol]34.6 g/dL29.9 - 35.2 g/dLMineral Area Regional Medical CenterV (RBC) [Entitic vol]85.6 fL81.0 - 99.0 fLINTERMOUNTAIN HEALTHCARE HealthcareMONOCYTES ABSOLUTE AUTO0.6NOSD HealthcareMonocytes/100 WBC (Bld)5.8 %1.7 - 12.0 %[facility] HospitalNEUTROPHILS ABSOLUTE AUTO5.8NOWashington University Medical CenterNeutrophils/100 WBC (Bld) 61.5 %43.0 - 75.0 %[facility] HospitalPlatelet mean volume (Bld) [Entitic vol]10 fL 9.5 - 13.5 fLINTERMOUNTAIN HEALTHCARE HealthcareTBH EO #0.3NOMS HealthcareTB FOC540RTOS Healthcare TBH UMW3IIKOWashington University Medical CenterTB WBC9.5NOWashington University Medical CenterCLINISYNCNOMS Kettering Health Washington TownshipHCG ( test) Ql (U)on 12-94-7927Hwrziphhiezsdo and review of laboratory resultsNoAllegheny Valley HospitalPreg Test, UrNegativeNegativeFormerly [facility] Health CareUrinalysis macro (dipstick) panel (U)on 23-86-9595Bjpjdfecc, UA NegativeNegative - 4(70) +++ mg/dLNOSD HealthcareBlood, UANegativeNegative - 50 Randall/mcLNOMS HealthcareClarity, UAClearNOSD HealthcareColor, UAYellowNOSD HealthcareGlucose, UANegativeNegative - 2000(110) ++++ mg/dLNOSD Healthcare Interpretation and review of laboratory resultsAbnormalINTERMOUNTAIN [facility]ALTH[facility]ARE HealthcareKetones, UANegativeNegative - 160(16) ++++ mg/dLINTERMOUNTAIN [facility]ALTH[facility]ARE HealthcareLeukocytes, UAPositive Negative - 500+++ Johnson/mcLNOMS HealthcareComment on above:smallNitrite, UA NegativeNegative - PositiveNOSD HealthcarepH, UA75 - 9NOSD HealthcareProtein, UA NegativeNegative - 1999(20) ++++ mg/dLPutnam County Memorial HospitalSpec Grav, UA1.011 - 1.03 [facility] HospitalUrobilinogen, UA0.20.2 - 12 mg/dLFormerly [facility] IGP,APTIMA HPV,AGE GDLNon 15-17-4867VVL GDLN ACOG TESTINGNote.[facility] Comment on above:TESTS RESULT FLAG UNITS REF RANGE LAB Clinician Provided Cytology Information Source.............Cervix;Endocervix No. of containers..01 ThinPrep Vial Age Algo ACOG Millie... FLAG LEGEND: L-Low Normal,H-High Normal,LL-Alert Low,HH-Alert High <-Panic Low,>-Panic High,A-Abnormal,AA-Critical Abnormal Performed at: 01 =[facility] [address] [facility] [place] [address] Beverly Nguyen MD, IGP, RFX APTIMA HPV ASCUNote.[facility] HospitalComment on above:TESTS RESULT FLAG UNITS REF RANGE LAB DIAGNOSIS: 02 NEGATIVE FOR INTRAEPITHELIAL LESION OR MALIGNANCY. Specimen adequacy: 02 Satisfactory for evaluation. No endocervical component is identified. Performed by: 02 Nikolay Smith Vegetable Farmer ([facility] [place]) . 02 Note: Note 02 The Pap [...] <-Panic Low,>-Panic High,A-Abnormal,AA-Critical Abnormal Performed at: [address] [place] [address] Beverly Nguyen MD, Performed at: =G - [facility] [address] [id number] [employer]: Beverly Nguyen MD, Phone: [phone] Performed at: - [facility] [id number] [employer]: Beverly Nguyen MD, Phone: [phone] BRUSH-SPATULA CERVIX ENDOCERVIX CLINISYNCNOWashington University Medical CenterComprehensive Metabolic Panelon 36-78-9164Vyezkrs [Mass/Vol]4.2 g/dLNormal3.5-5.0W[facility] Memorial HospitalComment on above:Order Comment: Ordered by ANNEL Fabienne By: #### CMP, [id number] #### [place] [id number] Ph. [phone] [Catalytic activity/Vol]77 U/EBczodp98-180TwphvqqKindred Hospital DaytonCommymichigan medical center [place]aw on above:Order Comment: Ordered by ANNEL Fabienne By: #### CMP, [id number] #### [place] [address] Ph. [phone] [Catalytic activity/Vol]29 U/LNormal0-35WKindred Hospital DaytonCommymichigan medical center saginaw on above:Order Comment: Ordered by ANNEL Fabienne By: #### CMP, [id number] #### [place] [address] Ph. [phone] [Catalytic activity/Vol]30 U/EQvsmwq00-59EbvjcteKindred Hospital DaytonCommymichigan medical center saginaw on above:Order Comment: Ordered by ANNEL Fabienne By: #### CMP, [id number] #### [place] [address] Ph. [phone] [Mass/Vol]0.4 mg/dLNormal0.2-1.3WKindred Hospital DaytonCommymichigan medical center saginaw on above:Order Comment: Ordered by ANNEL Loving By: #### CMP, [id number] #### [place] [id number] Ph. [phone] [Mass/Vol]9.2 mg/dLNormal8.4-10.2WKindred Hospital DaytonCommymichigan medical center sagin[place] on above:Order Comment: Ordered by ANNEL Fabienne By: #### CMP, [id number] #### [place] [id number] Ph. [phone] [Moles/Vol]101 mmol/AZezwpn68-341XcbmmxjKindred Hospital DaytonCommymichigan medical center [place] on above:Order Comment: Ordered by ANNEL Loving By: #### CMP, [id number] #### [address] [address] Ph. [phone] [Moles/Vol]25 mmol/FQcklxg97-80FokqlkxChildren'S Hospital For Rehabilitation Comment on above:Order Comment: Ordered by ANNEL Loving By: #### CMP, [id number] #### [place] [id number] Ph. [phone] [Mass/Vol]0.71 mg/dLNormal0.52-1.04[facility] For RehabilitationComment on above:Order Comment: Ordered by ANNEL Loving By: #### CMP, [id number] #### [place] [address] Ph. [phone]/1.73 sq M.predicted among non-blacks MDRD (S/P/Bld) [Vol rate/Area]122 mL/min/{1.73_m2}Normal>60Children[facility] Hospital For RehabilitationComment on above:Order Comment: Ordered by ANNEL Reynoso Comment: GFR calculated using CKD-EPI (2020) formula.\X0D0A\Stage 1 Kidney damage (e.g., protein in the urine) with normal GFR >=90\X0D0A\Stage 2 Kidney damage with mild decrease in GFR 60-8 9\X0D0A\Stage 3a Moderate decrease in GFR 45-59\X0D0A\Stage 3b Moderate decrease in GFR 30-44\X0D0A\Stage 4 Severe reduction in GFR 15-29\X0D0A\Stage 5 Kidney failure <15Performed By: #### CMP, [id number] #### [place] [id number] Ph. [phone] [Mass/Vol]85 mg/cKTrjmai58-691IjkrahuKindred Hospital Dayton Comment on above:Order Comment: Ordered by ANNEL Loving By: #### CMP, [id number] #### [place] [address] Ph. [phone] [Moles/Vol]4.1 mmol/LNormal3.6-5.0[facility] For RehabilitationComment on above:Order Comment: Ordered by ANNEL Carlosformed By: #### CMP, [id number] #### [place] [address] Ph. [phone] [Mass/Vol]8.0 g/dLNormal6.3-8.2WKindred Hospital Dayton Comment on above:Order Comment: Ordered by ANNEL Fabienne By: #### CMP, [id number] #### [place] [address] Ph. [phone] [Moles/Vol]137 mmol/NHuvqju498-795TzhpashKindred Hospital DaytonComment on above:Order Comment: Ordered by ANNEL Loving By: #### CMP, [id number] #### [place] [address] Ph. [phone] nitrogen [Mass/Vol]10 mg/dLNormal7-17WKindred Hospital DaytonComment on above:Order Comment: Ordered by ANNEL Fabienne By: #### CMP, [id number] #### [place] [address] Ph. [phone] [Mass/Vol]4.2 g/dL3.5 - 5.0 g/dLWYANDOTALP (Bld) [Catalytic activity/Vol]77 U/L38 - 126 U/LWYANDOTALT [Catalytic activity/Vol]29 U/L0 - 35 U/LWYANDOTAST [Catalytic activity/Vol]30 U/L14 - 36 U/LWYANDOT Bilirubin [Mass/Vol]0.4 mg/dL0.2 - 1.3 mg/dLWYANDOTCalcium [Mass/Vol]9.2 mg/dL 8.4 - 10.2 mg/dLWYANDOTChloride [Moles/Vol]101 mmol/LWYANDOTCO2 [Moles/Vol]25 mmol/LWYANDOTCreatinine [Mass/Vol]0.71 mg/dL0.52 - 1.04 mg/dLWYANDOTGFR, Xecjniwbp285- PINFWYANDOTComment on above: GFR calculated using CKD-EPI (2020) formula. Stage 1 Kidney damage (e.g., protein in the urine) with normal GFR >=90 Stage 2 Kidney damage with mild decrease in GFR 60-89 Stage 3a Moderate decrease in GFR 45-59 Stage 3b Moderate decrease in GFR 30-44 Stage 4 Severe reduction in GFR 15-29 Stage 5 Kidney failure <15 Glucose [Mass/Vol]85 mg/dL65 - 100 mg/dLWYANDOTPotassium [Moles/Vol]4.1 mmol/L WYANDOTProtein [Mass/Vol]8.0 g/dL6.3 - 8.2 g/dLWYANDOTSodium [Moles/Vol]137 mmol/LWYANDOTUrea nitrogen (BldV) [Mass/Vol]10 mg/dL7 - 17 mg/dLWYANDOTOrdered by PROM[facility] DEFI[facility]ION[facility] HOSPITALWYANDOTT Reflex FT4on 10-43-1251HPM6.420 mIU/mLNormal0.470-4.680Children[facility] Hospital For RehabilitationComment on above:Order Comment: Ordered by ANNEL Carlosformed By: #### CMP, [id number] #### [place] [address] Ph. [phone] with Reflexon 07-13-9196OPY Qn2.420 m[IU]/LWYANDOTOrdered by PR[facility] DEFI[facility] REGIONAL HOSPITALWYANDOTPAP ACOG PANEL 2: 21 to 29on 03-01-2022.. NormalUniversity Hospitals Tripoint Medical CenterComment on above:Performed By: #### [id number] #### [facility] [address] [place], [place] [address] Dr. Dallas Kaplan Gdln ACOG Panhtjr89-19RgfbfuOgwCleveland Clinic Akron General Lodi HospitalComment on above:Performed By: #### [id number] #### [facility] [address] [place] [address] Dr. Dallas WolfDIAGNOSIS:CommentSelect Medical Specialty Hospital - Trumbull on above: Result Comment: NEGATIVE FOR INTRAEPITHELIAL LESION OR MALIGNANCY.Performed By: #### [id number] #### [facility] [address] [place] [address] Dr. Dallas WolfMethodology:[facility] on above: Result Comment: This liquid based ThinPrep(R) pap test was screened with the use of an image guided system.Performed By: #### [id number] #### [facility] [address] [place] [address] Dr. Dallas WolfNote:CommentSelect Medical Specialty Hospital - Trumbull on above:Result Comment: The Pap smear is a screening test designed to aid in the detection of premalignant and malignant conditions of the uterine cervix. It is not a diagnostic procedure and should not be used as the sole means of detecting cervical cancer. Both false-positive and false-negative reports do occur. .Performed By: #### [id number] #### [facility] [address] [place] [address] Dr. Dallas WolfPerformed by:CommentSelect Medical Specialty Hospital - Trumbull on above: Result Comment: Nikolay Smith, Vegetable Farmer (ASCP)Performed By: #### [id number] #### [place] [address] Dr. Dallas WolfReflex Criteria:[facility] on above:Result Comment: The HPV DNA reflex criteria were not met with this specimen result therefore, no HPV testing was performed. .Performed By: #### [id number] #### [facility] [address] [place] [address] Dr. Dallas WolfSpecimen adequacy:[facility] on above:Result Comment: Satisfactory for evaluation. Endocervical and/or squamous metaplastic cells (endocervical component) are present.Performed By: #### [id number] #### [facility] [address] [place] [address] Dr. Dallas WolfCBC AUTO DIFFon 87-63-2214QZSN #0.1 103/ulNormal0.0-0.1The [facility] HospitalComment on above:Performed By: #### CBC #### [facility] [address] [place] [address] Dr. Dallas WolfBasophils/100 WBC (Bld)0.8 %Normal0.2-2.0The [facility] Comment on above:Performed By: #### CBC #### [facility] [address] [place] [address] Dr. Dallas Huggins #0.3 103/ulNormal0.0-0.7The [facility] HospitalComment on above: Performed By: #### CBC #### [facility] [address] [place] [address] Dr. Dallas Mosleyosinophils/100 WBC (Bld)4.1 %Normal0.9-7.0The [facility] Comment on above:Performed By: #### CBC #### [facility] [address] [place] [address] Dr. Dallas Mosleyrythrocyte distribution width (RBC) [Ratio]13.0 %Ziacje22.0-15.0 The [facility] HospitalComment on above:Performed By: #### CBC #### [facility] [address] [place] [address] Dr. Dallas WolfHematocrit (Bld) [Volume fraction]43.4 %Njhezu46.0-48.0The [facility] HospitalComment on above:Performed By: #### CBC #### [facility] [address] [place] [address] Dr. Dallas WolfHemoglobin (Bld) [Mass/Vol]14.5 g/mDDskqcm97.0-16.0The [facility] HospitalComment on above:Performed By: #### CBC #### [facility] [address] [place] [address] Dr. Dallas Ortez #0.02 10e3/ulNormal0.00-0.03The [facility] HospitalComment on above:Performed By: #### CBC #### [facility] [address] [place] [address] Dr. Dallas Ortez %0.3 %Normal0.0-0.5The [facility] HospitalComment on above: Performed By: #### CBC #### [facility] [address] [place] [address] Dr. Dallas Saavedra #2.2 103/ulNormal1.2-3.8The [facility] HospitalComment on above:Performed By: #### CBC #### [facility] [address] [place] [address] Dr. Dallas Santoshocytes/100 WBC (Bld)28.1 %Dcifej13.5-60.0The [facility] on above:Performed By: #### CBC #### [facility] [address] [place] [address] Dr. Dallas CarranzaUAL DIFF REQNONormalThe [facility] HospitalComment on above: Performed By: #### CBC #### [facility] [address] [place] [address] Dr. Dallas Hernandez (RBC) [Entitic mass]28.5 pvSkklww99.7-34.0The [facility] on above:Performed By: #### CBC #### [facility] [address] [place] [address] Dr. Dallas Hernandez (RBC) [Mass/Vol]33.4 g/cOKquein30.9-35.2The [facility] on above:Performed By: #### CBC #### [facility] [address] [place] [address] Dr. Dallas Hernandez (RBC) [Entitic vol]85.3 kOEqfpgc11.0-99.0The [facility] on above:Performed By: #### CBC #### [facility] [address] [place] [address] Dr. Dallas Smith #0.6 103/ulNormal0.3-0.8The [facility] HospitalComment on above:Performed By: #### CBC #### [facility] [address] [place] [address] Dr. Dallas Medranoocytes/100 WBC (Bld)7.9 %Normal1.7-12.0The [facility] Comment on above:Performed By: #### CBC #### [facility] [address] [place] [address] Dr. Dallas GironUT #4.6 103/ulNormal1.4-6.5The [facility] HospitalComment on above:Performed By: #### CBC #### [facility] [address] [place] [address] Dr. Dallas Gironutrophils/100 WBC (Bld)58.8 %Sewsoh59.0-75.0The [facility] HospitalComment on above:Performed By: #### CBC #### [facility] [address] [place] [address] Dr. Dallas Loulet mean volume (Bld) [Entitic vol]9.6 fLNormal9.5-13.5The [facility] HospitalComment on above:Performed By: #### CBC #### [facility] [address] [place] [address] Dr. Dallas WolfPLT242 103/whEcmzdk810-993Qcp [facility] HospitalComment on above: Performed By: #### CBC #### [facility] [address] [place] [address] Dr. Dallas WolfRBC5.09 106/ulNormal4.20-5.40The [facility] HospitalComment on above:Performed By: #### CBC #### [facility] [address] [place] [address] Dr. Dallas WolfWBC7.8 103/ulNormal4.0-11.0The [facility] HospitalComment on above: Performed By: #### CBC #### [facility] [address] [place] [address] Dr. Dallas WolfPREG QUANT HCGon 03-15-1720GHW QUANT<1NormalThe [facility] Comment on above:Performed By: #### PREGQNT #### [facility] [address] [place], [place] [address] Dr. Dallas WolfG Summa HealthComment on above: Result Comment: 5-50 0-1 WEEK 40-300 1-2 WEEKS 100-1,000 2-3 WEEKS 500-6,000 3-4 WEEKS 5,000-200,000 1-2 MONTHS 10,000-100,000 2-3 MONTHS 3,000-50,000 2ND TRIMESTER 1,000-50,000 3RD TRIMESTERPerformed By: #### PREGQNT #### [facility] [address] [place], [place] [address] Dr. Dallas WolfCovid-19 PCR (CVDTB)on 26-42-3534HFQH-CoV-2 (COVID-19) RNA SANJANA+probe Ql (Unsp spec)Not detectedNormalNOT DETECTEDUniversity Hospitals Tripoint Medical Center Comment on above:Result Comment: This test is not yet approved or cleared by the [place] FDA. When there are no FDA-approved or cleared tests available, and other criteria are met, FDA can make tests available under an emergency access mechanism called an Emergency Use Authorization (EUA). The EUA for this test is supported by the Director Of Sales And Marketing of Health and Human Service's (HHS's) declaration that circumstances exist to justify the emergency use of in vitro diagnostics for the detection and/or diagnosis of the virus that causes COVID- 19. This EUA will remain in effect (meaning [...] of clinical signs and symptoms consistent with SARS-CoV-2.Performed By: #### CVDTBH #### [facility] [address] [place] [address] [address] [address] Dallas Wolf Vital Signs Date TimeVital SignValuePerforming DsybafptqRaxclgva73-15-9907 15:50-0500Body mass index (BMI) [Ratio]35.19 kg/i3Nfdsa Jesika DO Work Phone: [phone] [place], [place] [address]Rsfhxuylpm70-71-2823 15:50-0500Body vhpeli86.88 kgCorey Jesika DO Work Phone: [phone] [place], [place] [address]Dmjycexphg01-70-6344 15:50-0500Diastolic blood epdxbzld02 mm[Hg]Abad Jesika DO Work Phone: [facility] HealthcareComment on above:130/ 15:50-0500Systolic blood gfbyxqte758 mm[Hg]Abad Jesika DO Work Phone: [phone] [place] [address] HealthcareComment on above:130/ 08:41-0400Body mass index (BMI) [Ratio]34.4 kg/m2Amy Gregorio MIX Work Phone: [phone] [place], [place] [address]Nrdkuzbkoc53-66-5085 08:41-0400Body jnijxr41.67 kgShagufta MIX Work Phone: [phone] [place], [place] [address]Smrigsuxze53-97-7000 08:41-0400Diastolic blood hdngirft76 mm[Hg]Shagufta Oneal PA Work Phone: [phone] [place], [place] [address]Kxbflmfwjv52-05-9140 08:41-0400Systolic blood uljobdtv806 mm[Hg]Shagufta MIX Work Phone: [phone] [place], [place] [address]Abimbukxge98-19-6071 08:33-0400Body mass index (BMI) [Ratio]33.59 kg/n0WxcdegbnSay Roy PACKAGING TECHNICIAN Work Phone: [phone] [place], [place] [address]Ysytbgtckb56-76-9606 08:33-0400Body .4 kg Say Roy PACKAGING TECHNICIAN Work Phone: [phone] [place], [place] [address]Jwbookljux42-32-5392 08:33-0400Diastolic blood zuwdqkrm15 mm[Hg]Say Roy PACKAGING TECHNICIAN Work Phone: [phone] [place], [place] [address]Yfwdcgoxbu64-39-2852 08:33-0400Systolic blood ugvxlbxf706 mm[Hg]Say Roy PACKAGING TECHNICIAN Work Phone: [phone] [place], [place] [address]Qztvwlhctw20-01-2907 10:35-0400Body mass index (BMI) [Ratio]33.25 kg/m2Zzidm Jesika DO Work Phone: [facility] HospitalRqueydwkpu83-75-9394 10:35-0400Body vmasyb16.44 kgCorey Jesika DO Work Phone: [facility] HospitalTgsnvlipnm86-72-1479 10:35-0400Diastolic blood mm[Hg]Abad Jesika DO Work Phone: [facility] HospitalVjydkjcehn36-63-3539 10:35-0400Systolic blood rnscoaqc993 mm[Hg]Abad Jesika DO Work Phone: [facility] [facility] HospitalAeueeawdjc10-81-6143 10:37-0400Body mass index (BMI) [Ratio]33.31 kg/m2Amy Gregorio MIX Work Phone: [facility] HospitalBtjjiygsyg32-50-5891 10:37-0400Body .62 kgShagufta Gregorio MIX Work Phone: [facility] HospitalHvfujcbwta88-91-1737 10:37-0400Diastolic blood mm[Hg]Shagufta MIX Work Phone: [facility] HospitalJtwjxkquks45-02-3141 10:37-0400Systolic blood mewggsps019 mm[Hg]Shagufta MIX Work Phone: [facility] HospitalJkwenvufgp05-17-6972 08:55-0400Body mass index (BMI) [Ratio]33.25 kg/x0Tljzp Jesika DO Work Phone: [facility] HospitalBzngpkrshj46-35-0982 08:55-0400Body khuyop92.44 kgCorey Jesika DO Work Phone: [facility] HospitalEbpbrqpbkb32-56-5328 08:55-0400Diastolic blood hicaovje89 mm[Hg]Abad Jesika DO Work Phone: [facility] HospitalLvbfirwseu47-93-9178 08:55-0400Systolic blood emvkohii285 mm[Hg]Abad Jesika DO Work Phone: [facility] HospitalJgyqdcmgzs19-56-6304 09:14-0400Body mass index (BMI) [Ratio]33.89 kg/i6Zcrsqkgo Kirill PACKAGING TECHNICIAN Work Phone: [facility] HospitalBorvyzxxpu67-98-6042 09:14-0400Body juuxav94.25 kgSay Roy PACKAGING TECHNICIAN Work Phone: [facility] HospitalBgdmhvkpsa03-82-7143 09:14-0400Diastolic blood gnockabi34 mm[Hg]Say Roy PACKAGING TECHNICIAN Work Phone: [phone]-[facility] HospitalWauamdrbrc27-35-5713 09:14-0400Systolic blood ytlwiirw039 mm[Hg]Say Roy PACKAGING TECHNICIAN Work Phone: [phone] [place], [place] [address]Uhclhwfilq34-14-5907 11:00-0400Body mass index (BMI) [Ratio]35.32 kg/m8Ircqx Jesika DO Work Phone: [phone] [place], [place] [address]Aktjgwsnka53-48-7753 11:00-0400Body .25 kgCorey Jesika DO Work Phone: [phone] [place], [place] [address]Ensjhbcxpq50-70-1258 11:00-0400Diastolic blood hfzecvvo86 mm[Hg]Abad Jesika DO Work Phone: 1(523)681-[address] [place], [place] [address]Imocjpbbrq96-59-3733 11:00-0400Systolic blood mm[Hg]Abad Jesika DO Work Phone: [phone] [place], [place] [address]Bpfnusmieb94-93-0519 14:07-0400Body jknooh554.64 cmMi[facility]07-[facility]-2024 14:07-0400Body mass index (BMI) [Ratio]35.9 kg/g4RhnvmfrdkMiami Valley Hospital07-19-2024 14:07-0400Body ibfsuh155.15 kgMi[facility] Hospital07-19-2024 14:07-0400Diastolic blood weqtxyqr54 mm[Hg][facility]07-19-2024 14:07-0400 Heart crfe695 /minMiami Valley Hospital07-19-2024 14:07-0400Systolic blood yuzjuxog621 mm[Hg][facility]04-25-2024 15:18-0400 Body holify458.64 cmMiami [facility] Hospital04-25-2024 15:18-0400Body mass index (BMI) [Ratio]36.8 kg/q1SmikusqrsMiami Valley Hospital04-25-2024 15:18-0400Body ajgzpb726.41 kgMiami [facility] Hospital04-25-2024 15:18-0400Diastolic blood brhvzjom615 mm[Hg][facility] 12-05-2023 15:18-0400Heart rate94 /minMiami Valley Hospital 12-05-2023 15:18-0400Systolic blood hgyffqde542 mm[Hg][facility]12-22-2023 11:56-0500Body lvnwyu562.7 cmAnnel Yuen MEDICAL INSURANCE COLLECTOR-MANAGER CORE Work Phone: [facility]12-22-2023 11:56-0500Body mass index (BMI) [Ratio]35.18 kg/m2Annel Yuen MEDICAL INSURANCE COLLECTOR-MANAGER CORE Work Phone: [facility]12-22-2023 11:56-0500Body gmyqcuncesr46.2 [degF]Annel Yuen MEDICAL INSURANCE COLLECTOR-MANAGER CORE Work Phone: [facility] [facility] Cpghtl34-99-1234 11:56-0500Body .96 kgAnnel Yuen MEDICAL INSURANCE COLLECTOR-MANAGER CORE Work Phone: [facility] Iwzrdt99-46-0665 11:56-0500Diastolic blood woypxjav89 mm[Hg]Annel Yuen APRN-MANAGER CORE Work Phone: [facility]12-22-2023 11:56-0500Heart rate 91 /Ros Yuen MEDICAL INSURANCE COLLECTOR-MANAGER CORE Work Phone: [facility] Hmnhlf14-61-3937 11:56-4154SxY0% (BldA) [Mass fraction]99 %Annel Yuen MEDICAL INSURANCE COLLECTOR-MANAGER CORE Work Phone: [facility] Qysmnx93-16-6403 11:56-0500Systolic blood lyzwniit721 mm[Hg]Annel Yuen MEDICAL INSURANCE COLLECTOR-MANAGER CORE Work Phone: [facility] Encounters Encounter DateEncounter TypeCare ProviderFacilityStart: 06-21-2025 End: 29-58-5934Rbwginxr flow sheetCorey Jesika DO Work Phone: [facility]BGYNComment on above:28 weeks gestation of ([facility]); Third trimester ([facility]); induced hypertension, antepartum ([facility])Start: 06-21-2025 End: 48-42-2701ybdmkhawtmUQTTA FAZIONot AvailableStart: 06-08-2025 End: 93-24-2933Ffhlnr Cheryl MIX Work Phone: [facility] [place] [facility]BGYNStart: 06-08-2025 End: 58-80-6210Vykvns Cheryl MIX Work Phone: [facility] [place] [facility]BGYNStart: 06-08-2025 End: 21-91-4395Jqshhu outpatient visit 15 minutesAmy Gregorio MIX Work Phone: [facility]BGYNComment on above: size inconsistent with dates ([facility]) (Primary Dx); 28 weeks gestation of ([facility]); Second trimester ([facility])Start: 06-08-2025 End: 50-35-6746hlgabpcakaXDP RAMEYNot AvailableStart: 05-12-2025 End: 80-23-2693Rgnsqb flowsMaria Isabel Roy NP Work Phone: [facility]BGYNStart: 05-12-2025 End: 07-61-2328Ltszlm flowsMaria Isabel Roy PACKAGING TECHNICIAN Work Phone: [facility] [place] [facility]BGYNStart: 05-12-2025 End: 76-80-9370Dvvpflmb flow sheetSay Roy PACKAGING TECHNICIAN Work Phone: [facility] [place] [facility]BGYNComment on above:24 weeks gestation of ([facility]); Second trimester ([facility]); Diabetes mellitus screeningStart: 05-12-2025 End: 35-51-3066oviihbaxocZSJLKFKM BLANCALIZNot AvailableStart: 04-15-2025 End: 44-41-3398Ehkgol flowsheetCorey Jesika DO Work Phone: NOTT [facility] [place] [facility]BGYNStart: 04-15-2025 End: 60-00-3624Xrilvq flowsheetCorey Jesika DO Work Phone: NOEP [facility] [place] [facility]BGYNStart: 04-15-2025 End: 49-57-9248Fddkqfdeg Result EncounterCorey Jesika DO Work Phone: noms External Department UnsolicitedStart: 04-15-2025 End: 83-81-7329Xabmrdcz preventive med est patient 18-39 yrsCorey Jesika DO Work Phone: NOPF [place] OBGYNComment on above:Second trimester ([facility]); 21 weeks gestation of ([facility]); Nausea and vomiting during ([facility]); Vaginal discharge during , antepartum ([facility])Start: 04-15-2025 End: 13-97-4459tmbkvoqbmtLNMLF FAZIONot AvailableStart: 04-08-2025 End: 14-01-8120owwxnxdnedXNZ RAMEYNot AvailableStart: 03-18-2025 End: 16-17-0743Vlgjvgddq Result EncounterShagufta IMX Work Phone: NOOU External Department UnsolicitedStart: 03-18-2025 End: 29-02-8722Yycgwiax Result EncounterShagufta MIX Work Phone: NOEB External Department UnsolicitedStart: 03-18-2025 End: 11-85-0897Sepefxpv Result EncounterShagufta MIX Work Phone: noMS External Department UnsolicitedStart: 03-18-2025 End: 34-51-0441Ghtuzapx flow sheetShagufta MIX Work Phone: NOVZ [place] [facility]BGYNComment on above:17 weeks gestation of ([facility]); Second trimester ([facility]); Subchorionic hematoma in first trimester, single or unspecified fetus ([facility]); Screening, , for anatomic survey ([facility]); Exposure to STD; Vaginal dischargeStart: 03-18-2025 End: 73-77-4999bnwgzmwnooYJJ RAMEYNot AvailableStart: 03-04-2025 End: 69-62-3312wjoupyqdrxBHXCGJY Isaac [facility] HospitalStart: 03-04-2025 End: 57-49-2978Phkzdrwfjr hospital visit by Fide Sanford CNP Work Phone: [facility] LABStart: 02-18-2025 End: 70-96-4785Jrrokc flowsheetCorey Jesika DO Work Phone: noms BCP OBStart: 02-18-2025 End: 16-33-9404Szjwhd flowsheetCorey Jesika DO Work Phone: NOPW BCP OBStart: 02-18-2025 End: 77-61-7934dbouwuurhwMZANC FAZIONot AvailableStart: 02-18-2025 End: 54-25-1578Htmdqssy flow sheetCorey Jesika DO Work Phone: noms [facility] OBComment on above:Second trimester ([facility]); 13 weeks gestation of ([facility])Start: 02-11-2025 End: 97-51-3422Bgvshxduj Result EncounterCorey Jesika DO Work Phone: NOZS External Department UnsolicitedStart: 02-11-2025 End: 41-11-5849Ifwjzyxou Result EncounterCorey Ejsika DO Work Phone: noms External Department UnsolicitedStart: 01-21-2025 End: 48-51-0328Mpqbmwgus Result EncounterCorey Jesika DO Work Phone: noms External Department UnsolicitedStart: 01-21-2025 End: 71-74-9948Ccxbguisa Result EncounterCorey Jesika DO Work Phone: NOMS External Department UnsolicitedStart: 01-21-2025 End: 31-55-2047Iobbqj outpatient visit 5 minutesNoms Bcp Ob Jesika NurseNOMS BCP OBComment on above:GA: 6l8hDgmcj: 01-21-2025 End: 64-62-6570ohtjcsoythCVHHG FAZIONot AvailableStart: 01-13-2025 End: 07-86-5685Lubilk flowsheetMaria Ma Kirill PACKAGING TECHNICIAN Work Phone: [facility] BCP OBStart: 01-13-2025 End: 89-92-8549Sezoas flowsheetKristina Kirill PACKAGING TECHNICIAN Work Phone: [facility] BCP OBStart: 01-13-2025 End: 85-99-6907lpahjlvgmhATVVIJBF EBERLYNot AvailableStart: 01-13-2025 End: 02-70-8071Nluutf outpatient visit 15 minutesKrkylah Roy PACKAGING TECHNICIAN Work Phone: [facility] BCP OBComment on above:GA: 3m3kDvlhb: 12-01-2024 End: 23-95-9621Lkicle flowsheetCorey Jesika DO Work Phone: [facility] BCP OBStart: 12-01-2024 End: 58-30-8074Qctzrytuq Result EncounterCorey Jesika DO Work Phone: noMS External Department UnsolicitedStart: 12-01-2024 End: 91-72-1975Ehrtyikst Result EncounterCorey Jesika DO Work Phone: noMS External Department UnsolicitedStart: 12-01-2024 End: 43-32-1110Aetgfc outpatient visit 15 minutesCorey Jesika DO Work Phone: [facility] BCP OBComment on above:Female infertility; PCOS (polycystic ovarian syndrome); Abnormal uterine bleeding (AUB); Endometriosis; Insulin resistanceStart: 12-01-2024 End: 50-94-1958uugfhayundGJOZD FAZIONot AvailableStart: 03-25-2024 End: 91-23-0778Gqsxdyqgx Result EncounterCorey Jesika DO Work Phone: NOWB External Department UnsolicitedStart: 03-25-2024 End: 52-58-0755Apmhtangq Result EncounterCorey Jesika DO Work Phone: noms External Department UnsolicitedStart: 02-28-2024 End: 10-02-7149pkpfuakbmvNivukzdrlOhioHealth Southeastern Medical Center Work Phone: Start: 02-28-2024 End: 00-81-0617Kqohfnv encounter procedureAtrium Health [facility] Physician GroupFire[facility] Work Phone: Start: 12-05-2023 End: 58-67-3438wfcmtvorbnZcvkxksxlOhioHealth Southeastern Medical Center Work Phone: Start: 12-05-2023 End: 45-97-5290Sxaxyxo encounter procedureAtrium Health Union West Physician GroupFirelands [facility] Work Phone: Start: 12-03-2023 End: 06-59-7383Sywdqvzud encounterAnnel Yuen MEDICAL INSURANCE COLLECTOR-MANAGER CORE Work Phone: [facility] Family MedicineStart: 08-02-2023 End: 97-58-8556Bjybkm outpatient visit 15 Karin Yuen MEDICAL INSURANCE COLLECTOR-MANAGER CORE Work Phone: [facility] - Family MedicineComment on above:Acute non-recurrent maxillary sinusitis (Primary Dx); Non-recurrent acute serous otitis media of both ears; Elevated blood pressure readingStart: 01-10-2023 End: 49-66-1132sxzuxdxdftUFUQ R KUNSWyandot [facility] Hospitaltart: 01-10-2023 End: 83-87-4396Aqyawtdcoq hospital visit by Fide Sanford CNP Work Phone: W LaboratoryStart: 02-26-2022 End: 15-15-0282srkeklrvobDN [facility] FAZIOFacility:Y4Lexaa: 31-00-1572Vllcyqmot for preprocedural laboratory examinationDR [facility] Hospitaltart: 06-30-2021 End: 60-66-9230wfkjyqmcfuWD [facility] FAZIOFacility:B0Hcklb: 34-70-0531Dqhpabddj for other preprocedural examinationDR [facility] HospitalStart: 06-27-2021 End: 85-49-6771bgollhvktsDP [facility] FAZIOFacility:T6Irhvb: 06-27-2021 End: 78-70-7340Gtxyrkhmy for preprocedural laboratory examinationDR [facility] Facility:M4Egmuy: 06-21-2021 End: 33-88-5963vxbkhxafopKY [facility] FAZIOFacility:Z8Dtlsk: 06-21-2021 End: 18-88-8252Pxyqvrzpp for other preprocedural examinationDR [facility] Facility:H1 Procedures DateProcedureProcedure DetailPerforming ClinicianStart: 90-12-6602Mvnga dip stick/tablet rgnt non-auto w/o micrscpCorey Jesika DO Work Phone: Start: 59-51-5355Tmaem dip stick/tablet rgnt non-auto w/o micrscpAmy Gregorio MIX Work Phone: Start: 60-67-5678Yakjg dip stick/tablet rgnt non-auto w/o micrscpKrgangaa Kirill VILLEGAS Work Phone: Start: 28-79-3047ZGO,APTIMA HPV,AGE GDLNCorey Jesika DO Work Phone: Start: 25-64-0736PNA, SERUM, OPEN SPINA BIFIDAAmy Gregorio MIX Work Phone: Start: 68-04-5741VBSHFEBWH VAGINITIS (HTRX)Shagufta MIX Work Phone: Start: 71-66-8343Wzqkv dip stick/tablet rgnt non-auto w/o micrscpAmy Gregorio MIX Work Phone: Start: 58-57-2543Knemt dip stick/tablet rgnt non-auto w/o micrscpCorey Jesika DO Work Phone: Start: 95-72-0517ZT OB TRANSVAGINALCorey Jesika DO Work Phone: Start: 86-57-1402CHB HEMOGLOBIN S2EGowgb Jesika DO Work Phone: Start: 01-21-2025 End: 59-81-0910Evxzb dip stick/tablet rgnt non-auto w/o micrscpCorey Jesika DO Work Phone: Start: 76-54-1979Emjni dip stick/tablet rgnt non-auto w/o micrscpKristina Kirill PACKAGING TECHNICIAN Work Phone: Start: 53-02-2739NQO CBC WITH AUTO DIFFCorey Jesika DO Work Phone: Start: 12-01-2024 End: 01-12-1033Yzzvg dip stick/tablet rgnt non-auto w/o micrscpCorey Jesika DO Work Phone: Start: 24-44-9682OCG,APTIMA HPV,AGE GDLNCorey Jesika DO Work Phone: Start: 96-06-7182Ljkjd depression screening assessment Annel Yuen ALESSANDRA-CAIT Work Phone: Start: 87-83-4144Ingfeereber observation [Identifier] in Cervix by Cyto stainAnnel Yuen ALESSANDRA-MANAGER CORE Work Phone: Start: 25-23-8559Rhxitiodgdnty metabolic panelUnknown Provider Result Plan of Treatment DateCare ActivityDetailAuthorStart: 29-38-2342Slxssugdi for malignant neoplasm of cervixPap SmearProMedica Health SystemStart: 07-06-2025 End: 10-48-5065Gvjkmjh encounter /25/2025 10:40 AM EST Routine [facility] [address] [place] [address] Abad Canchola DO [address] [place] [address] [facility]BGYNStart: 06-28-2025 End: 05-66-6697Gdcldmd encounter izhakersu24/17/2025 3:30 PM EST Routine [facility] [address] [place], [id number] Say Roy, PACKAGING TECHNICIAN [address] [place] [address] [facility]BGYNStart: 06-21-2025 End: 79-25-5416Xrgmpuh encounter cvphzvimu79/10/2025 3:30 PM EST Routine [facility] [address] [place], [id number] Abad Canchola, DO [address] [place] [address] [facility]BGYNStart: 06-21-2025 End: 72-31-8181Fotdoodqndoi / ancillary services twgrnttyre60/10/2025 3:00 PM EST Ancillary Procedure [facility] [address] [address] [facility] [place] [facility]YNStart: 06-21-2025 End: 31-16-6814Cpanwsf aminotransferase [Enzymatic activity/volume] in Serum or PlasmaALT Lab Routine induced hypertension, antepartum ([facility]) Expected: 06/21/2025 (Approximate), Expires: 06/21/2026[facility] HealthcareComment on above:Expected: 06/21/2025 (Approximate), Expires: 06/21/2026Start: 06-21-2025 End: 75-60-8666Nbdchtlvw aminotransferase [Enzymatic activity/volume] in Serum or PlasmaAST Lab Routine induced hypertension, antepartum ([facility]) Expected: 06/21/2025 (Approximate), Expires: 06/21/2026[facility] HealthcareComment on above:Expected: 06/21/2025 (Approximate), Expires: 06/21/2026Start: 06-21-2025 End: 56-50-6714YSE W Auto Differential panel - BloodCBC and differential Lab Routine induced hypertension, antepartum ([facility]) Expected: 06/12 (Approximate), Expires: 06/21/2026[facility] HealthcareComment on above: Expected: 06/21/2025 (Approximate), Expires: 06/21/2026Start: 06-21-2025 End: 31-26-6092Zgmluprumk [Mass/volume] in Serum or PlasmaCreatinine Lab Routine induced hypertension, antepartum ([facility]) Expected: 06/21/2025 (Ap proximate), Expires: 06/21/2026[facility] Work Phone: comment on above:Expected: 06/21/2025 (Approximate), Expires: 06/21/2026Start: 06-21-2025 End: 38-40-4267Qlhlita dehydrogenase [Enzymatic activity/volume] in Serum or Plasma by Lactate to pyruvate reactionLactate dehydrogenase Lab Routine induced hypertension, antepartum ([facility]) Expected: 06/21/2025, Expires: 06/21/2026[facility] HealthcareComment on above:Expected: 06/21/2025, Expires: 06/21/2026Start: 06-21-2025 End: 07-43-0641Tbaajmj, urine, 24 hourProtein, urine, 24 hour Lab Routine induced hypertension, antepartum ([facility]) Expected: 06/21/2025 (Approximate), Expires: 06/21/2026[facility] HealthcareComment on above:Expected: 06/21/2025 (Approximate), Expires: 06/21/2026Start: 06-21-2025 End: 31-98-5972Lv and pttPt and ptt Lab Routine induced hypertension, antepartum ([facility]) Expected: 06/21/2025, Expires: 06/21/2026[facility] Healthcare Comment on above:Expected: 06/21/2025, Expires: 06/21/2026Start: 06-21-2025 End: 89-46-8031Wtnjr [Mass/volume] in Serum or PlasmaUric acid Lab Routine induced hypertension, antepartum ([facility]) Expected: 06/21/2025 (Hilary roximate), Expires: 06/21/2026[facility] HealthcareComment on above:Expected: 06/21/2025 (Approximate), Expires: 06/21/2026Start: 06-21-2025 End: 34-24-5224Vzgn nitrogen [Mass/volume] in Serum or PlasmaBUN Lab Routine induced hypertension, antepartum ([facility]) Expected: 06/21/2025, Expires:06/21/2026[facility] HealthcareComment on above:Expected: 06/21/2025, Expires: 06/21/2026Start: 06-08-2025 End: 25-86-0260EB for pregnancyUS OB follow up transabdominal approach Imaging Routine size inconsistent with dates ([facility]) Expected: 06/08/2025, Expires: 10/09/2025[facility] Work Phone: comment on above:Expected: 06/08/2025, Expires: 10/09/2025Start: 06-08-2025 End: 87-10-6651Oqtdjaw encounter yemhaloks74/28/2025 8:30 AM EDT Routine [facility] [address] [place], [id number] Shagufta Oneal PA [address] [place] [address] ArrivedNOMS Logan OBGYNComment on above:ArrivedStart: 05-12-2025 End: 15-01-4996ORP panel - Blood by Automated countCBC Lab Routine Diabetes mellitus screening Expected: 05/12/2025 (Approximate), Expires: 05/12/2026[facility] Work Phone: comment on above:Expected: 05/12/2025 (Approximate), Expires: 05/12/2026Start: 05-12-2025 End: 90-27-1232Futpokkhpxl of glucose 1 hour after glucose challenge for glucose tolerance testGlucose tolerance, 1 hour Lab Routine Diabetes mellitus screening Expected: 05/12/2025 (Approximate), Expires: 05/12/2026[facility] HealthcareComment on above:Expected: 05/12/2025 (Approximate), Expires: 05/12/2026Start: 05-12-2025 End: 27-47-3725Sfvwwmx encounter procedureNOMS [facility] [place] OBGYNComment on above: ArrivedStart: 04-15-2025 End: 18-59-1992Zpecrdx encounter procedureNOMS Logan OBGYNComment on above: ArrivedStart: 34-86-3739LTLFI-19 Vaccine ()COVID-19 Vaccine ()[facility]OM[facility] HealthcareStart: 40-61-8168Thumhajsu vaccinationNOSD HealthcareStart: 04-08-2025 End: 12-92-5780Xcvkmnrrtggo / ancillary services rbbulnncte98/28/2025 8:00 AM EDT Ancillary Procedure [facility] [address] [place] [address] [phone] [facility]BGYNStart: 04-05-2025 End: 13-67-1448Xidjyzw encounter mxyhfpnms80/25/2025 10:20 AM EDT Office Visit [facility] [address] [place] [phone] Abad Canchola, DO [address] [place] [address] [facility] BCP OBStart: 03-18-2025 End: 03-92-0752Vswuw fetoprotein, maternalAlpha fetoprotein, maternal Lab Routine 17 weeks gestation of ([facility]) Second trimester ([facility]) Expected: 03/18/2025 (Approximate), Expires: 04/18/2025[facility] Comment on above:Expected: 03/18/2025 (Approximate), Expires: 04/18/2025Start: 03-18-2025 End: 31-52-7177YS for pregnancyUS OB 14+ weeks anatomy scan Imaging Routine Screening, , for anatomic survey ([facility]) Expected: 03/18/2025, Expires: 06/18/2025NOMS HealthcareComment on above:Expected: 03/18/2025, Expires: 06/18/2025Start: 03-18-2025 End: 08-23-2358Yelqpqy encounter sjhrqrlba58/07/2025 10:30 AM EDT Routine [facility] [address] [address] Shagufta Oneal PA [address] [place], [place] [address] [facility] BCP OBStart: 03-18-2025 End: 12-71-9938Lkmqnjfwzogg / ancillary services qhjcujahnx81/07/2025 10:00 AM EDT Ancillary Procedure [facility] [address] [place] [address] NOM[facility] BCP OBStart: 91-27-7600Lonsofctz vaccinationFlu vaccine (#1)[facility]: 02-18[facility]2025 End: 39-26-2860Poujqmb encounter /10/2025 8:40 AM EDT Routine [facility] [address] [address] Abad Canchola DO [address] [place], [place] [id number] [facility] BCP OBStart: 01-21-2025 End: 57-66-2994VTJ/RhABO/Rh Lab Routine Missed menses , unspecified gestational age ([facility]) Expected: 01/21/2025 (Approximate), Expires: 01/21/2026N[facility] HealthcareComment on above:Expected: 01/21/2025 (Approximate), Expires: 01/21/2026Start: 01-21-2025 End: 76-24-8561rexiecxwae81/12/2025 2:00 PM EDT Initial [facility] [address] [place] [address] LAQG BCP OBStart: 01-21-2025 End: 15-34-3813Clvty type and Indirect antibody screen panel - BloodType and screen Lab Routine Missed menses , unspecified gestational age ([facility]) Expected: 01/21/2025 (Approximate), Expires: 01/21/2026[facility] Work Phone: comment on above:Expected: 01/21/2025 (Approximate), Expires: 01/21/2026Start: 01-21-2025 End: 57-72-6812Lmuny of abuse panel - Urine by Screen methodRapid drug screen, urine Lab Routine , unspecified gestational age ([facility]) Encounter for supervision of normal first in first trimester ([facility]) Expected: 01/21/2025 (Approximate), Expires: 01/21/2026[facility] HealthcareComment on above: Expected: 01/21/2025 (Approximate), Expires: 01/21/2026Start: 01-21-2025 End: 44-92-6900Bdzggrybiapw / ancillary services jbeosdqyll14/12/2025 1:30 PM EDT Ancillary Procedure [facility] [address] [place] [address] RGIE [facility] OBStart: 12-17-2024 End: 86-72-0541Hwzjgrxmpzme / ancillary services /08/2025 8:00 AM EDT Ancillary Procedure [facility] [address] [place] [address] YOCT [facility] OBStart: 12-01-2024 End: 11-15-9121Nnbjdgmjxdscf hormone (AMH)Antimullerian hormone (AMH) Lab Routine Abnormal uterine bleeding (AUB) Endometriosis Expected: 12/01/2024 (Approximate), Expires: 12/01/2025NOSD HealthcareComment on above:Expected: 12/01/2024 (Approximate), Expires: 12/01/2025Start: 12-01-2024 End: 56-80-4490WIVPRXDT Lab Routine PCOS (polycystic ovarian syndrome) Expected: 12/01/2024 (Approximate), Expires: 12/01/2025NOSD HealthcareComment on above: Expected: 12/01/2024 (Approximate), Expires: 12/01/2025Start: 12-01-2024 End: 61-94-5420IF PelvisUS Pelvis w/ TV Imaging Routine PCOS (polycystic ovarian syndrome) Expected: 12/01/2024, Expires: 12/01/2025NOSD HealthcareComment on above:Expected: 12/01/2024, Expires: 12/01/2025Start: 16-87-0294Pvrgo BMI ScreeningAdult BMI ScreeningMarion Hospital SystemStart: 59-44-5037Jupelhywhg ScreeningDepression ScreeningMarion Hospital SystemStart: 34-71-3181Goehnmj ScreeningTobacco ScreeningMarion Hospital SystemStart: 21-19-2837KMTBV-19 Vaccine ( season)COVID-19 Vaccine ( season)[facility]Start: 07-67-2633Igytebmei vaccinationPutnam County Memorial HospitalStart: 81-62-5944Nyzzo BMI Follow Up PlanAdult BMI Follow Up PlanMarion Hospital SystemStart: 20-40-0448Stswq BMI ScreeningAdult BMI ScreeningFormerly [facility], [facility] Hospitaltart: 30-33-1945Jacuhujli for Chlamydia trachomatisChlamydia Screening Marion Hospital SystemComment on above:Postponed from 1999 (Not Indicated)Start: 93-76-5929Quyylkqxq vaccinationInfluenza VaccineMarion Hospital SystemStart: 23-96-8227Njehvnczw vaccinationFlu vaccine (Season Ended) W[place]ANDOTStart: 00-55-3733IQyF,Tdap and Td Vaccines (7 - Td or Tdap)DTaP,Tdap and Td Vaccines (7 - Td or Tdap)[facility] SystemStart: 13-96-0960VYrW/Tdap/Td vaccine (1 - Tdap)DTaP/Tdap/Td vaccine (1 - Tdap)[facility]OTStart: 2018 Hepatitis B Vaccines (1 of 3 - 19+ 3-dose series)Hepatitis B Vaccines (1 of 3 - 19+ 3-dose series)[facility] HealthcareStart: 15-46-3675CXP Vaccines (1 - 3-dose series)HPV Vaccines (1 - 3-dose series)[facility] HealthcareStart: 52-34-4051Xqoijxw of varicella vaccinationVaricella Vaccines (1 of 2 - 13+ 2-dose series)[facility] HealthcareStart: 29-38-8079YXuL/Tdap/Td Vaccines (1 - Tdap)DTaP/Tdap/Td Vaccines (1 - Tdap)[facility] HealthcareStart: 17-66-8117VGQ Vaccines (1 of 1 - Standard series)MMR Vaccines (1 of 1 - Standard series)[facility] HealthcareStart: 03-20-2000 COVID-19 Vaccine (#1)COVID-19 Vaccine (#1)WYANDOTBacteria identified in Urine by CultureUrine culture Microbiology Routine Missed menses Ordered: 01/21/2025[facility] HealthcareComment on above:Ordered: 5CBC W Auto Differential panel - BloodCBC and differential Lab Routine PCOS (polycystic ovarian syndrome) Ordered: 12/01/2024[facility] HealthcareComment on above:Ordered: 12/01/2024BC W Auto Differential panel - BloodCBC and differential Lab Routine Missed menses , unspecified gestational age ([facility]) Ordered: 01/21/2025[facility] HealthcareComment on above:Ordered: 01/21/2025HLAMYDIA TRACHOMATIS (GENITO/STI) CHLAMYDIA TRACHOMATIS (GENITO/STI) Lab Routine Exposure to STD Ordered: 03/18/2025[facility] HealthcareComment on above:Ordered: 03/18/2025HLAMYDIA TRACHOMATIS (GENITO/STI)CHLAMYDIA TRACHOMATIS (GENITO/STI) Lab Routine Vaginal discharge during , antepartum ([facility]) Ordered: 04/15/2025[facility] HealthcareComment on above:Ordered: 04/15/2025ytology Cervical or vaginal smear or scraping studyPap Smear Pathology and Cytology Routine Second trimester ([facility]) 21 weeks gestation ofpregnancy ([facility]) Ordered: 04/15/2025 [facility] Healthcare Work Phone: comment on above:Ordered: 04/15/2025DHEA-sulfateDHEA- sulfate Lab Routine PCOS (polycystic ovarian syndrome) Ordered: 12/01/2024[facility] HealthcareComment on above:Ordered: 12/01/2024Follicle stimulating hormone Follicle stimulating hormone Lab Routine PCOS (polycystic ovarian syndrome) Ordered: 12/01/2024[facility] HealthcareComment on above:Ordered: 12/01/2024hCG, quantitative, pregnancyhCG, quantitative, Lab Routine PCOS (polycystic ovarian syndrome) Ordered: 12/01/2024[facility] Healthcare Work Phone: comment on above:Ordered: 12/01/2024Hemoglobin A1c/Hemoglobin.total in BloodHemoglobin A1c Lab Routine Abnormal uterine bleeding (AUB) Endometriosis Ordered: 12/01/2024[facility] HealthcareComment on above: Ordered: 12/01/2024Hemoglobin A1c/Hemoglobin.total in BloodHemoglobin A1c Lab Routine Missed menses , unspecified gestational age ([facility]) Ordered: 01/21/2025[facility] HealthcareComment on above:Ordered: 01/21/2025Hepatitis B virus surface Ag [Presence] in Serum or Plasma by ImmunoassayHepatitis B surface antigen Lab Routine Missed menses , unspecified gestational age ([facility]) Ordered: 01/21/2025[facility] HealthcareComment on above:Ordered: 01/21/2025 Hepatitis C virus Ab [Presence] in Serum or Plasma by ImmunoassayHepatitis C antibody Lab Routine Missed menses , unspecified gestational age ([facility]) Ordered: 01/21/2025[facility] HealthcareComment on above:Ordered: 01/21/2025 HIV-1/HIV-2 antigen/antibody combination immunoassayHIV-1 and HIV-2 antibodies Lab Routine Missed menses , unspecified gestational age ([facility]) Ordered: 01/21/2025[facility] HealthcareComment on above:Ordered: 01/21/2025 Luteinizing hormoneLuteinizing hormone Lab Routine PCOS (polycystic ovarian syndrome) Ordered: 12/01/2024[facility] HealthcareComment on above:Ordered: 12/01/2024 Neisseria gonorrhoeae DNA [Presence] in Unspecified specimen by SANJANA with probe detectionNeisseria gonorrhea DNA probe, direct Lab Routine Exposure to STD Ordered: 03/18/2025[facility] HealthcareComment on above:Ordered: 03/18/2025Neisseria gonorrhoeae DNA [Presence] in Unspecified specimen by SANJANA with probe detection Neisseria gonorrhea DNA probe, direct Lab Routine Vaginal discharge during , antepartum ([facility]) Ordered: 04/15/2025[facility] HealthcareComment on above:Ordered: 04/15/2025Protein/Creatinine [Mass Ratio] in Urine Protein:Creatinine Ratio, Urine Lab Routine induced hypertension, antepartum ([facility]) Ordered: 06/21/2025[facility] HealthcareComment on above:Ordered: 06/21/2025 End: 37-47-6348Flkuqrwzkvp [facility] [employer] Work Phone: Comment on above:Once for 1 Occurrences starting 03/04/2025 until 03/04/2025Reagin Ab [Presence] in Serum by RPRRPR Lab Routine Missed menses , unspecified gestational age ([facility]) Ordered: 01/21/2025[facility] HealthcareComment on above:Ordered: 01/21/2025Rubella antibody, IgGRubella antibody, IgG Lab Routine Missed menses , unspecified gestational age ([facility]) Ordered: 01/21/2025[facility] HealthcareComment on above: Ordered: 01/21/2025SURESWAB(R) ADVANCED VAGINITIS PLUS, TMASURESWAB(R) ADVANCED VAGINITIS PLUS, TMA Pathology and Cytology Routine Vaginal discharge Ordered: 0 03/18/2025[facility] [employer] Work Phone: comment on above:Ordered: 03/18/2025SURESWAB(R) ADVANCED VAGINITIS PLUS, TMASURESWAB(R) ADVANCED VAGINITIS PLUS, TMA Pathology and Cytology Routine Vaginal discharge during , antepartum ([facility]) Ordered: 04/15/2025[facility] HealthcareComment on above:Ordered: 04/15/2025 Thyrotropin [Units/volume] in Serum or PlasmaTSH Lab Routine PCOS (polycystic ovarian syndrome) Ordered: 12/01/2024[facility] HealthcareComment on above:Ordered: 12/01/2024Thyroxine (T4) free [Mass/volume] in Serum or PlasmaT4, free Lab Routine PCOS (polycystic ovarian syndrome) Ordered: 12/01/2024[facility] Comment on above:Ordered: 12/01/2024 Immunizations Immunization DateImmunizationNotesCare XuumnfxbLhfjrlmn30-41-9719knemkmzjm, injectable, quadrivalent, preservative freeAnnel Adrians MEDICAL INSURANCE COLLECTOR-MANAGER CORE Work Phone: [facility] CenterCbcpns09-85-2625uhtmzbtus virus vaccine, unspecified 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 Adrians MEDICAL INSURANCE COLLECTOR-MANAGER CORE Work Phone: [facility] CenterAdynwo06-59-6764CEYAL-29, mRNA, LNP- S, PF, 100mcg/0.5mL DoseMary Nguyễns MEDICAL INSURANCE COLLECTOR-MANAGER CORE Work Phone: [facility] CenterBfjgat15-41-7885PXRCE-67, mRNA, LNP- S, PF, 100mcg/0.5mL DoseMary Nguyễns MEDICAL INSURANCE COLLECTOR-MANAGER CORE Work Phone: [facility] CenterIlpiwh05-08-0479lzhzknkqa, injectable, quadrivalent, preservative freeAnnel Adrians MEDICAL INSURANCE COLLECTOR-MANAGER CORE Work Phone: [facility] CenterVbydge04-19-4985ezbmxhpfs A vaccine, pediatric/adolescent dosage, 2 dose scheduleAnnel Yuen MEDICAL INSURANCE COLLECTOR-MANAGER CORE Work Phone: [facility]07-28-2017Human Papillomavirus 9-valent vaccineAnnel Yuen MEDICAL INSURANCE COLLECTOR-MANAGER CORE Work Phone: [facility] CenterAoadil83-91-8696uzagastqddeyu oligosaccharide (groups A, C, Y and W-135) diphtheria toxoid conjugate vaccine (MCV4O)Annel Yuen MEDICAL INSURANCE COLLECTOR-MANAGER CORE Work Phone: [facility]10-30-2012human papilloma virus vaccine, quadrivalentAnnel Adrians MEDICAL INSURANCE COLLECTOR-MANAGER CORE Work Phone: [facility] CenterNowiqu61-70-5944ezbahtxpkotpp polysaccharide (groups A, C, Y and W-135) diphtheria toxoid conjugate vaccine (MCV4P)Annel Yuen MEDICAL INSURANCE COLLECTOR-MANAGER CORE Work Phone: [facility] [employer] Uctsrn05-93-6203wdcgsnwju virus vaccineAnnel Yuen MEDICAL INSURANCE COLLECTOR-MANAGER CORE Work Phone: [facility] CenterBvhmmr41-42-7758arhkayibv A vaccine, pediatric/adolescent dosage, 2 dose scheduleAnnel Yuen MEDICAL INSURANCE COLLECTOR-MANAGER CORE Work Phone: [facility] [employer] Ifzmtj14-58-5028wgewp papilloma virus vaccine, quadrivalentAnnel Yuen MEDICAL INSURANCE COLLECTOR-MANAGER CORE Work Phone: [facility] [employer] Xiqixb93-33-9592pqqhvlu toxoid, reduced diphtheria toxoid, and acellular pertussis vaccine, adsorbedAnnel Yuen MEDICAL INSURANCE COLLECTOR-MANAGER CORE Work Phone: [facility] CenterRxtcab33-93-1706bfaadazknz, tetanus toxoids and acellular pertussis vaccine, unspecified 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 Yuen MEDICAL INSURANCE COLLECTOR-MANAGER CORE Work Phone: [facility] [employer] Efxzih66-69-5364vnmkaza, mumps and rubella virus vaccineAnnel Yuen MEDICAL INSURANCE COLLECTOR-MANAGER [employer]ORE Work Phone: [facility] [employer] Wqaflh70-08-9953tbcuccizlh vaccine, inactivatedAnnel Yuen MEDICAL INSURANCE COLLECTOR-MANAGER CORE Work Phone: [facility] [employer] Jwdigr64-52-9703yuthhjimjp, tetanus toxoids and acellular pertussis vaccine, unspecified 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 Yuen MEDICAL INSURANCE COLLECTOR-MANAGER CORE Work Phone: [facility] CenterYxjtch72-82-5165zgtqzdzannc influenzae type b conjugate and Hepatitis B vaccineAnnel Yuen MEDICAL INSURANCE COLLECTOR-MANAGER CORE Work Phone: [facility] [employer] Ftzyjp78-06-7104tiepldu, mumps and rubella virus vaccineAnnel Yuen MEDICAL INSURANCE COLLECTOR-MANAGER CORE Work Phone: [facility] CenterAcophm68-21-2703vfvzfilctc vaccine, inactivatedAnnel Yuen MEDICAL INSURANCE COLLECTOR-MANAGER CORE Work Phone: [facility] CenterArhrie19-74-6358nqvfvzesk virus vaccineAnnel Yuen MEDICAL INSURANCE COLLECTOR-MANAGER CORE Work Phone: [facility] CenterVdrzmo55-32-9836oqygyenbde, tetanus toxoids and acellular pertussis vaccine, unspecified 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 Yuen MEDICAL INSURANCE COLLECTOR-MANAGER CORE Work Phone: [facility] CenterLluaui59-13-7716hotxtacdkzk influenzae type b vaccine, PRP-OMP conjugateAnnel Yuen MEDICAL INSURANCE COLLECTOR-MANAGER CORE Work Phone: [facility] CenterWzjweh70-70-2312xghjxnxgvp, tetanus toxoids and acellular pertussis vaccine, unspecified 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 Yuen MEDICAL INSURANCE COLLECTOR-MANAGER CORE Work Phone: [facility] CenterUizigm18-97-3182douwoxmosms influenzae type b conjugate and Hepatitis B vaccineAnnel Yuen MEDICAL INSURANCE COLLECTOR-MANAGER CORE Work Phone: [facility] CenterYxucwd39-68-5613alhcbpyoiu vaccine, inactivatedAnnel Yuen MEDICAL INSURANCE COLLECTOR-MANAGER CORE Work Phone: [facility] CenterKpiwmd92-46-3661bvceodmwxu, tetanus toxoids and acellular pertussis vaccine, unspecified 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 Yuen MEDICAL INSURANCE COLLECTOR-MANAGER CORE Work Phone: [facility] CenterNkzbfv76-94-2560oeiryuvojjb influenzae type b conjugate and Hepatitis B vaccineAnnel Yuen MEDICAL INSURANCE COLLECTOR-MANAGER CORE Work Phone: [facility] CenterBzvjux31-75-4692mclnmqsfiy vaccine, inactivatedAnnel Yuen MEDICAL INSURANCE COLLECTOR-MANAGER CORE Work Phone: [facility] Payers DatePayer CategoryPayerPolicy [id number] [id number]87849.38187[id number] [id number] Health [id number] [id number] 1.2.840.494670.1.13.239.2.7.3.442142. Medicaid1.2.840.979873.1.13.693.2.7.3.021991.87175-32-4273Dxrplse Health Insurance1.2.840.269292.1.13.693.2.7.9.700731.161220.76002-42-2965Htlfsch 1.2.840.568824.1.13.693.2.7.3.348[id number] 2.16.840.1.084353.3.57[id number] 2.16.840.1.340877.3.57[id number] 2.16.840.1.019420.3.57[id number] 2.16.840.1.847647.3.57[id number] 2.16.840.1.391140.3.57[id number] 2.16.840.1.183571.3.57[id number] 2.16.840.1.733771.3.57[id number] 2.16.840.1.391280.3.57[id number] 2.16.840.1.545346.3.57[id number] 2.16.840.1.205687.3.579.[id number] 2.16.840.1.736113.3.579.[id number] 2.16.840.1.436869.3.57[id number] 2.16.840.1.583081.3.57[id number] 2.16.840.1.557782.3.57[id number] 2.16.840.1.667520.3.579.2.1[id number] 2.16.840.1.554531.3.57[id number] 2.16.840.1.501523.3.57[id number] 2.16.840.1.863800.3.579.2.[id number] 2.16.840.1.061988.3.579.2.936262-43-9185Riinhnw Health [id number] [id number] EtknftjkuDEY9190 70p07jgx-4252-7m80-16q9-894606290qh6 Social History DateTypeDetailFacilityTobacco smoking status NHISTobacco smoking consumption unknownWYANDOT Work Phone: start: 93-41-5627Ttl Assigned At BirthNot on file MILES Work Phone: start: 03-03-2023 End: 95-45-4967Gtokdxn smoking status NHISNever smoked tobacco (finding) [facility] Centertart: 40-18-0644Zbi Assigned At BirthFeapi healthcaree [facility] Centertart: 03-25-2024 End: 78-67-2292Gijwfoxuz beverage intakeLifetime non-drinker (finding)[facility] HealthcareStart: 03-25-2024 End: 42-20-7882Wxfjbif of Social functionMarion Hospital SystemStart: 03-25-2024 End: 57-91-9542Tzjkbhg use panelMarion Hospital SystemStart: 67-63-2409Ffbihdh use and exposureSmokeless tobacco non-userMarion Hospital SystemStart: 64-51-6832Ivgauui intakeEx-drinker (finding)[facility] Hospitaltart: 28-23-8942Odk hard is it for you to pay for the very basics like food, housing, medical care, and heatingNot hard at allFormerly [facility], [facility] Hospitaltart: 05-04-2022 Gender identityIdentifies as female gender (finding)[facility] Start: 70-95-8110GemucgtxrYRHC HealthcareStart: 90-42-9325KviTmylva (finding)[facility] Clinical Notes 06-30-2021 to 06-21-2025 Note Date & UixcUcrqLcqynemz21-98-3258 History of Present illness Narrative* Cecilia Erin, DI - 06/21/2025 3:40 PM EST Reason for Appointment: Patient ID: Meredith Templeton is a 24 y.o. female who [...] nursing note reviewed. Exam conducted with a principal examiner present. Vitals: Estimated body mass index is 35.19 kg/m as calculated from the following: Height as of 09/24/19: 5' 6 . Weight as of this encounter: 218 lb. BP: Patient's last menstrual period was 11/19/2024 (approximate). Assessment/Plan ICD-10-CM 1. 28 weeks gestation of ([facility]) Z3A.28 POCT urinalysis dipstick manually resulted 2. Third trimester ([facility]) Z34.93 POCT urinalysis dipstick manually resulted 3. induced hypertension, antepartum ([facility]) O13.9 Creatinine Protein, urine, 24 hour [...] of: Abad Canchola DO documented in this encounterPutnam County Memorial HospitalAdqwlmshow21-50-7803 History of Present illness Narrative* DOMINGUEZ Villagran - 06/08/2025 8:30 AM EDT Reason for Appointment: Patient ID: Meredith Templeton is a 24 y.o. female who [...] nursing note reviewed. Exam conducted with a principal examiner present. Vitals: Estimated body mass index is 34.4 kg/m as calculated from the following: Height as of 09/24/19: 5' 6 . Weight as of this encounter: 213 lb 1.9 oz. BP: 124/82 Patient's last menstrual period was 11/19/2024 (approximate). Assessment/Plan ICD-10-CM 1. 28 weeks gestation of ([facility]) Z3A.28 POCT urinalysis dipstick manually resulted 2. Second trimester ([facility]) Z34.92 POCT urinalysis dipstick manually resulted Return [...] week for routine OB appointment. Documented by Say Roy NP on behalf of: DOMINGUEZ Villagran documented in this encounterPutnam County Memorial HospitalDfatjqbpvn26-87-3117 History of Present illness Narrative* Say Roy, NELLY - 05/12/2025 8:30 AM EDT Reason for Appointment: Patient ID: Meredith Templeton is a 24 y.o. female who [...] nursing note reviewed. Exam conducted with a principal examiner present. Vitals: Estimated body mass index is 33.25 kg/m as calculated from the following: Height as of 09/24/19: 5' 6 . Weight as of 04/15/25: 206 lb. BP: Patient's last menstrual period was 11/19/2024 (approximate). ASSESSMENT & PLAN ICD-10-CM 1. 24 weeks gestation of ([facility]) Z3A.24 POCT urinalysis dipstick manually resulted 2. Second trimester ([facility]) Z34.92 3. Diabetes mellitus screening Z13.1 [...] by Cris Gross MA on behalf of: Say Roy NP documented in this encounterPutnam County Memorial HospitalFqxvhxxgli09-57-0083 History of Present illness Narrative* Chelsie Arango LPN - 04/15/2025 10:10 AM EDT Reason for Appointment: Patient ID: Meredith Templeton is a 24 y.o. female who [...] nursing note reviewed. Exam conducted with a principal examiner present. Vitals: Estimated body mass index is 33.25 kg/m as calculated from the following: Height as of 09/24/19: 5' 6 . Weight as of this encounter: 206 lb. BP: 116/72 Patient's last menstrual period was 11/19/2024 (approximate). ASSESSMENT & PLAN ICD-10-CM 1. Second trimester ([facility]) Z34.92 Pap Smear 2. 21 weeks gestation of ([facility]) Z3A.21 Pap Smear 3. Nausea and vomiting during ([facility]) O21.9 metoclopramide (Reglan) 10 MG tablet 4. Vaginal discharge during , antepartum ([facility]) O26.899 N89.8 Return OB/Annual Exam: Patient presents today for an annual exam/routine obstetrics appointment. Patient is currently 21w0d . Patient is doing well and states she has no complaints. Pap was obtained without difficulty. Reglan sent to take prior to meals to help with nausea. Obtained vaginal cultures as well as patient previously had yeast infection. If comes back positiveagain then 1 Diflucan will be sent for treatment per Dr. Canchola if yeast infection is detected. --this is safe for short-term use in and able to be sent to pharmacy. Follow Up: Patient is to return to our office in 4 weeks for routine OB appointment Documented by Chelsie Arango LPN on behalf of: Abad Canchola DO documented in this encounterPutnam County Memorial HospitalMuegvhccoe80-74-7156 History of Present illness Narrative* DOMINGUEZ Vilalgran - 03/18/2025 10:30 AM EDT Reason for Appointment: Patient ID: Meredith Templeton is a 24 y.o. female who [...] PLAN ICD-10-CM 1. 17 weeks gestation of ([facility]) Z3A.17 POCT urinalysis dipstick manually resulted Alpha fetoprotein, maternal Alpha fetoprotein, maternal 2. Second trimester ([facility]) Z34.92 POCT urinalysis dipstick manually resulted Alpha fetoprotein, maternal Alpha fetoprotein, maternal 3. Subchorionic hematoma in first trimester, single or unspecified fetus ([facility]) O41.8X10 O46.8X1 4. Screening, , for anatomic survey ([facility]) Z36.89 US OB 14+ weeks anatomy scan [...] behalf of: DOMINGUEZ Villagran documented in this encounterPutnam County Memorial HospitalQgbmmswidk62-13-3329 Note ADDENDUM #1 Current examination demonstrated an incomplete anatomical evaluation, recommend follow-up imaging to evaluate spine, profile and for three-vessel cord. TRANSCRIBED BY: ELECTRONICALLY SIGNED BY: Miguel Thompson MD FINDINGS: A single, live intrauterine is present with normal cardiac rate of 165 beats per minute. Normal activity and amniotic fluid volume. Morphology is grossly normal. The placenta isanterior, Grade I, inferior aspect 5 cm from [...] TRANSCRIBED BY: ELECTRONICALLY SIGNED BY: Miguel Thompson MDNot AvailableComment on above: Order Comment: US OB ANATOMY SINGLE W US OB CERVICAL LENGTH Estimated Date of Delivery: 08/26/25 Gestational Age as of 03/18/2025: 87s0v58-66-9157 History of Present illness Narrative* Chelsie Arango LPN - 02/18/2025 8:40 AM EDT Reason for Appointment: Patient ID: Meredith Templeton is a 24 y.o. female who [...] nursing note reviewed. Exam conducted with a principal examiner present. Vitals: Estimated body mass index is 33.25 kg/m as calculated from the following: Height as of 09/24/19: 5' 6 . Weight as of this encounter: 206 lb. BP: 124/76 Patient's last menstrual period was 11/19/2024 (approximate). ASSESSMENT & PLAN ICD-10-CM 1. Second trimester ([facility]) Z34.92 POCT urinalysis dipstick manually resulted 2. 13 weeks gestation of ([facility]) Z3A.13 New OB: Patient presents today for [...] or undercooked meat, and stay away from [facility]. Patient has been consulted regarding any further do's and don'tsof . Patient voiced understanding and all questions and concerns were answered. Patient advised that she is able to call office to schedule sneek peek if needed. Orders Placed This Encounter Procedures POCT urinalysis dipstick manually resulted Follow Up: Patient is to return in 4 weeks for routine OB appointment. Documented by Chelsie Arango LPN on behalf of: Abad Canchola DO documented in this encounterPutnam County Memorial HospitalVdqrvribxv25-27-7659 History of Present illness Narrative* Cris Gross MA - 01/21/2025 2:00 PM EDT Reason for Appointment: Patient ID: Meredith Templeton is a 24 y.o. female who [...] Nurse Note: Pt unsure of doing the [place] billion to one lab. Advised if patient changes mind to make sure both labs and [place] done at the same time. PVU. OB Intake: Patient presents today for first OB visit. Patients history has been reviewed in great detail including any potential risks. Patient signed consent forms and patient desires testing in both trimesters. Patient currently has no complaints and has been advised to drink 6-8 glasses of water a day, eatno raw or undercooked meat, and stay away from [facility]. Patient has also been advised to not change litter boxes and eat 6 small meals a day. Patient has been consulted regarding the do's and don'ts ofpregnancy. Patient was given labs and all questions [...] by: Cris Gross MA documented in this encounterPutnam County Memorial HospitalUvpkwvkeaf32-92-6924 History of Present illness Narrative* Say Roy NP - 01/13/2025 9:00 AM EDT Reason for Appointment: Patient ID: Meredith Templeton is a 24 y.o. female who [...] nursing note reviewed. Exam conducted with a principal examiner present. Vitals: Estimated body mass index is [...] we will discuss Zofran pump. Documented by Say Roy NP on behalf of: Say Roy NP documented in this encounterPutnam County Memorial HospitalKcpuaqlddj65-81-3154 History of Present illness Narrative* Misa Knight LPN - 12/01/2024 10:40 AM EDT Reason for Appointment: Patient ID: Meredith Templeton is a 24 y.o. female who [...] nursing note reviewed. Exam conducted with a principal examiner present. Vitals: Estimated body mass index is [...] to take Femara on days 3-7 of cycle.On day 21 of cycle patient is to [...] by Misa Knight LPN on behalf of: Abad Canchola DO documented in this encounterPutnam County Memorial [id number] Miscellaneous Notes* Telephone Encounter - Lisa Tijerina - 12/03/2023 8:07 AM EDT ----- Message from YASMINE Singh sent at 03/05/2023 5:31 PM EDT ----- Regarding: wellness exam Due December of - Annel * Telephone Encounter - Lisa Tijerina - 12/03/2023 8:07 AM EDT Patient is switching pcp documented in this encounterUniversity [facility]04-[facility]24 Telephone encounter Note* Telephone Encounter - Lisa Tijerina - 12/03/2023 8:07 AM EDT ----- Message from YASMINE Singh sent at 03/05/2023 5:31 PM EDT ----- Regarding: wellness exam Due May of 24 - Annel [facility]04-23-2024 Telephone encounter Note* Telephone Encounter - Lisa Tijerina - 12/03/2023 8:07 AM EDT Patient is switching pcp [employer]12-22-2023 History of Present illness Narrative* Annel Yuen, MEDICAL INSURANCE COLLECTOR-MANAGER CORE - 08/02/2023 11:40 AM EST Subjective Patient ID: Meredith Antonio is a 22 y.o. female. Started [...] past medical history, past social history, past surgicalhistory, problem list, and medication reconciliation was completed including current medication andpost discharge medication. Review of Systems Constitutional: Positive [...] Thought content normal. Judgment: Judgment normal. Assessment/Plan Meredith was seen today for ear ache. Diagnoses [...] YASMINE Singh 08/02/23 1251 documented in this encounterUniversity Hospitals [facility]11-19-2021 NoteThe [place], [place] NAME: MEREDITH ANTONIO DATE OF : MEDICAL REC#: [id number] AIRCRAFT TOOL MAKER: DERIC FERNANDEZ DATE: 06/30/2021 09:48:00 SOLUTIONS DEVELOPMENT ANALYST DATE: 06/30/2021 20:15 DICTATING PHYSICIAN: ABAD CANCHOLA DICTATION DATE: 06/30/2021 12:00 OPERATIVE NOTE OPERATION DATE: 06/30/2021 PROCEDURE NAME: Diagnostic laparoscopy. PREOPERATIVE DIAGNOSES: 1. Pelvic pain. 2. Menorrhagia. 3. Dysmenorrhea. POSTOPERATIVE DIAGNOSES: 1. Pelvic pain. 2. Menorrhagia. 3. Dysmenorrhea. 4. Endometriosis posterior cul-de-sac. ANESTHESIA: General. SURGEON: Abad Canchola DO SHIFT SUPERVISOR RN: CECILIO Mendoza URINE OUTPUT: Yellow and clear. [...] correct x 2. The patient taken to [facility] Room in stable condition. Electronically Authenticated and Edited by: Abad Canchola DO on 07/03/2021 09:18 AM [facility] Signed and Approved by: DR ABAD CANCHOLA . 07/03/2021 09:18:00[facility] noteNo assessment information availableK[facility] Work Phone: Evaluation note* Diagnosis Onset Date Resolution Status Anxiety and depression acute [facility] Work Phone: Evaluation note* Diagnosis Acute non-recurrent maxillary sinusitis- Primary Non-recurrent acute serous otitis media of both ears Elevated blood pressure reading Elevated blood pressure reading without diagnosis of hypertension [facility] Diagnosis Female infertility Female infertility of unspecified origin PCOS (polycystic ovarian syndrome) Polycystic ovaries Abnormal uterine bleeding (AUB) Endometriosis Endometriosis, site unspecified Insulin resistance Other abnormal glucose [facility] Diagnosis Amenorrhea Absence of menstruation Missed menses , unspecified gestational age ([facility]) Encounter for supervision of normal first in first trimester ([facility]) [facility]* Diagnosis Nausea and vomiting during - Primary Currently in first trimester with unknown gestational age Constipation, unspecified constipation type [facility]* Diagnosis Second trimester ([facility]) state, incidental 13 weeks gestation of ([facility]) [facility]* Diagnosis 17 weeks gestation of ([facility]) Second trimester ([facility]) state, incidental Subchorionic hematoma in first trimester, single or unspecified fetus ([facility]) Screening, , for anatomic survey ([facility]) Encounter for anatomic survey Exposure to STD Vaginal discharge Leukorrhea, not specified as infective [facility]* Diagnosis Second trimester ([facility]) state, incidental 21 weeks gestation of ([facility]) Nausea and vomiting during ([facility]) Vaginal discharge during , antepartum ([facility]) [facility]* Diagnosis 24 weeks gestation of ([facility]) Second trimester ([facility]) state, incidental Diabetes mellitus screening Screening for diabetes mellitus [facility]* Diagnosis size inconsistent with dates ([facility])- Primary 28 weeks gestation of ([facility]) Second trimester ([facility]) state, incidental [facility]* Diagnosis 28 weeks gestation of ([facility]) Third trimester ([facility]) state, incidental induced hypertension, antepartum ([facility]) Transient hypertension of , antepartum documented in this encounter [facility] HealthcareInstructionsNot on filedocumented in this encounterProMedica Health SystemInstructionsNot on filedocumented in this encounterProTwin City Hospital System Summary Purpose Family History Relationship Condition Age at Onset Recorded Date/T terra Not Specified Malignant neoplasm Unknown Not SpecifiedHeart diseaseUnknownMyocardial infarctionUnknownfatherHypertension UnknownCerebrovascular accident (CVA)Unknown Relationship Condition Age at Onset Recorded Date/T terra paternal grandfather Malignant neoplasm Unknown paternal grandmotherHeart diseaseUnknownMyocardial infarctionUnknownfather HypertensionUnknownCerebrovascular accident (CVA)Unknown Advance Directives Advance Directive Response Recorded Date/ Time Advance Directives No November 24, 024 9:39am Chief Complaint and Reason for Visit Chief Complaint Establish Chief Complaint Establish discuss weight loss medicationReason for VisitAnxiety and depression Additional Source Comments INFORMATION SOURCE (unrecogn ized section and content) DATE CREATED AUTHOR 06/13/2022 [facility] DATE CREATED AUTHOR AUTHOR'S ORGANIZ ATION 08/09/2023 [facility] DATE CREATED AUTHOR AUTHOR'S ORGANIZ ATION 03/07/2025 [facility] DATE CREATED AUTHOR AUTHOR'S ORGANIZ ATION 06/22/2025 [facility] EPIC Care Teams (unrecognized sec tion and content) Team MemberRelationshipSpecialtyStart DateEnd Date Annel Yuen, MEDICAL INSURANCE COLLECTOR - CHIEF WRITER [address] [place] [phone] PCP - GeneralNurse Practitioner01/10/23 Team Status: Active Member Role Status Dates Michelle Pabon MD Primary Care Provider Active Team Status: Inactive Member Role Status Dates Michelle Pabon MD Primary Care Provide r, Attending Provider Active Start: December 05, 2023 End: December 05, 2023 Team Status: Inactive Member Role Status Dates Michelle Pabon MD Primary Care Provide r, Attending Provider Active Start: February 28, 2024 End: February 28, 2024Team MemberRelationshipSpecialtyStart DateEnd Date Michelle Pabon MD [address] [place] [facility] [place] [address] PCP - GeneralFamily Medicine03/25/24Team MemberRelationshipSpecialtyStart DateEnd Date Annel Yuen, MEDICAL INSURANCE COLLECTOR-MANAGER CORE [address] [place] [facility] [place] [address] PCP - GeneralFamily Medicine01/18/20Team MemberRelationshipSpecialtyStart DateEnd Date Michelle Pabon MD [address] [place] [facility] [place] [address] PCP - GeneralFamily Medicine03/25/24Team MemberRelationshipSpecialtyStart DateEnd Date Michelle Pabon MD [address] [place] [facility] [address] PCP - GeneralFamily Medicine03/25/24Team MemberRelationshipSpecialtyStart DateEnd Date Michelle Pabon MD [address] [place] [facility] [address] PCP - GeneralFamily Medicine03/25/24Team MemberRelationshipSpecialtyStart DateEnd Date Michelle Pabon MD [address] [place] [facility] [address] PCP - GeneralFamily Medicine03/25/24Team MemberRelationshipSpecialtyStart DateEnd Date Michelle Pabon MD [address] [place] [facility] [address] PCP - Generalmily Medicine03/25/24Team MemberRelationshipSpecialtyStart DateEnd Date Michelle Pabon MD [address] [place] [facility] [place] [address] PCP - Generalmily Medicine03/25/24Team MemberRelationshipSpecialtyStart DateEnd Date Michelle Pabon MD [address] [place] [facility] [address] PCP - GeneralFamily Medicine03/25/24Team MemberRelationshipSpecialtyStart DateEnd Date Michelle Pabon MD [address] [place] [facility] [address] PCP - GeneralFamily Medicine03/25/24Team MemberRelationshipSpecialtyStart DateEnd Date Michelle Pabon MD [address] [place] [facility] [address] PCP - GeneralFamily Medicine03/25/24Team MemberRelationshipSpecialtyStart DateEnd Date Annel Yuen, MEDICAL INSURANCE COLLECTOR - CHIEF WRITER [address] [place] [address] PCP - GeneralNurse Practitioner01/10/23Team MemberRelationshipSpecialtyStart Date End Date Michelle Pabon MD [address] [place] [facility] [place] [address] PCP - GeneralFamily Medicine03/25/24Team MemberRelationshipSpecialtyStart DateEnd Date Michelle Pabon MD [address] [place] [facility] [address] PCP - GeneralFamily Medicine03/25/24Team MemberRelationshipSpecialtyStart DateEnd Date Michelle Pabon MD [address] [place] [facility] [address] PCP - GeneralFamily Medicine03/25/24Team MemberRelationshipSpecialtyStart DateEnd Date Michelle Pabon MD [address] [place] [facility] [address] PCP - GeneralFamily Medicine03/25/24Team MemberRelationshipSpecialtyStart DateEnd Date Michelle Pabon MD [address] [place] [facility] [address] PCP - GeneralFamily Medicine03/25/24Team MemberRelationshipSpecialtyStart DateEnd Date Michelle Pabon MD [address] [place] [facility] [address] PCP - GeneralFamily Medicine03/25/24Team MemberRelationshipSpecialtyStart DateEnd Date Michelle Pabon MD [address] [place] [facility] [address] PCP - GeneralFamily Medicine03/25/24 Goals (unrecognized section and content) Goals may be documented in a n alternate sectionGoals may be documented in an alternate sectionNot on filedocumented as of this encounterNot on filedocumented as of this encounter Reason for Visit (unrecogniz ed section and content) ReasonCommentsear acheCouple days. Feels like ear plugsReasonCommentsInfertility ReasonCommentsAmenorrheaReasonCommentsRoutine Visit FOR RECORDS PERTAINING TO PATIENTS WHO [...] BE BASED ON THE PRIMARY CLINICAL RECORDS. [employer] provides no warranty or guarantee of the accuracy or completeness of information in this document.
[2025-06-23 16:39] LABS: Hematocrit 38.9 % (36.0-48.0); Hemoglobin 13.6 g/dL (12.0-16.0); Immature Granulocytes Abs Auto 0.08 10^3/uL (0.00-0.03); Immature Granulocytes Pct Auto 0.6 % (0.0-0.5); Lymphocytes Absolute Auto 2.2 10^3/uL (1.2-3.8); Mean Corpuscular HGB Conc 35.0 g/dL (29.9-35.2); Mean Corpuscular Hemoglobin 30.3 pg (26.7-34.0); Mean Corpuscular Volume 86.6 fL (81.0-99.0); Platelet Count 161 10^3/uL (150-450); Red Blood Count 4.49 10^6/uL (4.20-5.40); White Blood Count 12.6 10^3/uL (4.0-11.0)
[2025-06-23 16:47] LABS: Partial Thromboplastin Time 26.1 sec (22.3-36.2); Prothrombin Time 9.8 sec (9.0-11.6)
[2025-06-23 16:49] LABS: INR <0.93
[2025-06-23 17:13] LABS: Aspartate Amino Transferase 9 U/L (15-37); Blood Urea Nitrogen 6.0 mg/dL (7.0-18.0); Estimated GFR (African America >60 (>=60 mL/min/1.73m^2); Estimated GFR (Non-African Ame >60 (>=60 mL/min/1.73m^2); Uric Acid 4.3 mg/dL (2.6-6.0)
[2025-06-24 12:30] LABS: Total Protein Urine Random 12.2 mg/dL (<=11.9)
[2025-06-24 12:32] LABS: Protein Creatinine Ratio Urine 0.09; Total Protein Urine Random 16.0 mg/dL (<=11.9)
[2025-06-24 12:46] LABS: Total Volume 24 Hour Urine 1780 mL/24hr
== END 2025-06-23 16:07 | disposition home or self-care (01) ==
LOC: LAB 16:07
PROVIDERS: PCP Family Medicine; Visit Provider Obstetrics & Gynecology
DX: O13.9 Gestational [pregnancy-induced] hypertension without significant proteinuria, unspecified trimester (principal)
CPT/HCPCS: 36415; 82565; 82570; 83615; 84156; 84450; 84520; 84550; 85025; 85610; 85730

== ENCOUNTER 2025-06-28 16:04 | Observation (INO) | payer OTHER, SELFPAY ==
[2025-06-28 16:08] VITALS: BP 148/97
--- NOTE | 2025-06-28 16:08 | US_ITS ---
[place] [id number] Patient Name: MEREDITH TEMPLETON MRN: [id number] date: 2000 Sex: F Assigned Patient Location: [facility] Current Patient Location: [facility] Accession/Order Number: [id number] Exam Date: 06/28/2025 16:13 Report Date: 06/28/2025 17:27 At the request of: SAY RAMIREZ Procedure: US OB BPP w non-stress Ultrasound biophysical profile HISTORY: Increased blood pressure Adequate breathing movement, gross body movement, tone and amniotic fluid volume for total score of 8 out of 8. The amniotic fluid index is 12.6cm within normal limits. The heart rate 155 bpm. US/US OB BPP w non-stress IMPRESSION: Adequate ultrasound biophysical profile Impression dictated by: Ronan Chance M.D. 06/28/2025 5:27 PM Dictation Location[facility] Electronically authenticated by: [id number] Y Date: 06/28/2025 17:27
--- OUTSIDE RECORDS SUMMARY | 2025-06-28 16:11 | XMS_ITS | CCD ---
Author Organization [facility] Care Team Providers Care Rerolling Machine Operator Name Role Phone JESIKA, DR CALVIN Primary [...] Unavailable JESIKA, DR CALVIN Attending Unavailable Malick UNDERGROUND CONDUIT INSTALLER - FOLDING MACHINE SETTER, Annel Concha Primary Care Provider ANNEL TERESA Referring Unavailable MALICK, ANNEL Concha Primary Care Unavailable Michelle Pabon MD Primary Care Provider Malick UNDERGROUND CONDUIT INSTALLER-DRY CURE WORKER, Annel Heath Primary Care Provider Unavailable Primary Care Provider Michelle Hernandez MD Primary Care Provider Michelle Pabon MD Primary Care Provider Malick APARICIO - FOLDING MACHINE SETTER, Annel Concha Primary Care Provider RAFAEL LARA Referring Unavailable MALICK, ANNEL Kern Primary Care Unavailable Cm LAUGHLIN, Michelle Primary Care Provider ABAD CANCHOLA Attending Unavailable SAY ROY Attending Unavailable ABAD CANCHOLA Attending Unavailable SHAGUFTA PERKINS Attending Unavailable GREGORIO SHAGUFTA Referring Unavailable ABAD CANCHOLA Attending Unavailable SAY ROY Attending Unavailable GREGORIO, SHAGUFTA Attending Unavailable SAY ROY Referring Unavailable ABAD CANCHOLA Attending Unavailable Medications Current Medications MedicationDrug Class(es)DatesSig (Normalized)Sig (Original)amoxicillin 875 mg / clavulanate 125 mg oral tablet (1 source)Penicillin-class AntibacterialStart: 08-02-2023 End: 09-19-4555adxc 1 tablet by mouth once in the morningamoxicillin-pot clavulanate (AUGMENTIN) 875-125 mg per tablet Take 1 tablet by mouth in the morningand 1 tablet before bedtime. Do all this for 7 days. 14 tablet 0 08/02/2023 08/09/2023 Activedocusate sodium 100 mg oral capsule (4 sources)Start: 01-13-2025 End: 45-02-8622gxot 1 capsule by mouth in the morningdocusate sodium (Colace) 100 MG capsule Indications: Constipation, unspecified constipation type Take 1 capsule (100 mg) by mouth in the morning and 1 capsule (100 mg) before bedtime. Do all this for10 days. 20 capsule 01/13/2025 01/23/2025 Activeloratadine 10 mg oral tablet (6 sources) End: 90-87-0149mcxf 1 tablet by mouth once dailyloratadine (Claritin) 10 MG tablet Take 10 mg by mouth Daily 01/13/2025 Discontinuedlosartan potassium 25 mg oral tablet (5 sources)Angiotensin 2 Receptor BlockerStart: 02-28-2024 End: 77-65-8681xjuj 25 mg by mouth once dailyLosartan Active 25 MG PO Daily February 28, 2024 12:00ammetFORMIN hydrochloride 500 mg oral tablet (6 sources)BiguanideStart: 12-01-2024 End: 41-29-7236hdbe 1 tablet by mouth at mealtimemetFORMIN (Glucophage) 500 MG tablet Indications: PCOS (polycystic ovarian syndrome) , Insulin resistance Take 1 tablet (500 mg) by mouth in the morning. Take with meals. 30 tablet 11 12/01/2024 01/13/2025 Discontinuedmetoclopramide 10 mg oral tablet (20 sources)Dopamine-2 Receptor AntagonistStart: 04-15-2025 End: 56-03-7801zjnbhetxktwqdo (Reglan) 10 MG tablet Indications: Nausea and vomiting during (HHS-HCC) Take 1 tablet (10 mg) by mouth in the morning and 1 tablet (10 mg) at noon and 1 tablet (10 mg) in theevening. Take before meals. Take 1 tablet by mouth 30 minutes prior to meals 3 times daily as needed for nausea. 90 tablet 1 04/15/2025 ActiveStart: 01-13-2025 End: 55-43-9153hwxmyPLRIWQVR 0.0075 mg/mg vaginal gel (3 sources)Nitroimidazole AntimicrobialStart: 05-10-2025 End: 40-16-9964sxmqzKXLDRGXX (Metrogel) 0.75 % vaginal gel Indications: BV (bacterial vaginosis) Insert into the vagina Daily for 5 days 70 g 05/10/2025 05/15/2025 ActiveMultiple Vitamin (multivitamin) tablet (6 sources) End: 25-79-0522bwgs 1 tablet by mouth once dailyMultiple Vitamin (multivitamin) tablet Take 1 tablet by mouth Daily 01/13/2025 Discontinuedtake 1 tablet by mouth once dailyMultiple Vitamin (multivitamin) tablet Take 1 tablet by mouth Daily Aljuwm23 hr NIFEdipine 30 mg extended release oral tablet (7 sources)Dihydropyridine Calcium Channel BlockerStart: 62-67-8506lwlw 1 tablet by mouth once daily, then take 1 tablet by mouth every twenty-four hours NIFEdipine CC (Adalat CC) 30 MG 24 hr tablet Take 30 mg by mouth Daily 10/20/2024 Activeondansetron 4 mg disintegrating oral tablet (20 sources)Serotonin-3 Receptor AntagonistStart: 67-80-4245nshq 1 tablet by mouth every eight hours as needed for nauseaondansetron ODT (Zofran-ODT) 4 MG disintegrating tablet Take 4 mg by mouth every 8 (eight) hours ifneeded for nausea 02/22/2025 ActiveStart: 01-11-2025 End: 81-12-4090impl 1 tablet by mouth every six hours for nauseaondansetron ODT (Zofran-ODT) 4 MG disintegrating tablet Indications: Nausea and vomiting during ([facility]) Take 1 tablet (4 mg) by mouth every 6 (six) hours if needed for nausea or vomiting 30 tablet 2 01/11/2025 02/10/2025 Activephentermine hydrochloride 37.5 mg oral tablet (3 sources)Sympathomimetic Amine AnorecticStart: 01-09-2023 End: 56-43-8555erus 33-33.9 tablets by mouth once daily before breakfast phentermine (ADIPEX-P) 37.5 mg tablet Indications: Class 1 obesity due to excess calories without serious comorbidity with body mass index (BMI) of 33.0 to 33.9 in adult Take 1 tablet (37.5 mg total)by mouth every morning before breakfast. 30 tablet 0 03/05/2023 08/02/2023 Discontinued (Therapy completed)predniSONE 20 mg oral tablet (1 source)Start: 08-02-2023 End: 83-45-2714ixce 1 tablet by mouth at mealtimepredniSONE (DELTASONE) 20 mg tablet Take 1 tablet (20 mg total) by mouth in the morning for 7 days.Take with food. 7 tablet 0 08/02/2023 08/09/2023 ActivePrenatal 27-1 MG tablet (20 sources)take 1 tablet by mouth once dailyPrenatal 27-1 MG tablet Take 1 tablet by mouth Daily ActiveSemaglutide (Weight Loss) (1 source)Start: 43-94-8054Qfffzxvlgav (Weight Loss) (Wegovy) 0.25 mg/0.5 mL pen injector Active 0.25 MG SUBCUT every week February 28, 2024 12:00am administer weeks 1 through 4 of therapy Completed/Discontinued Medications MedicationDrug Class(es)DatesSig (Normalized)Sig (Original)24 hr buPROPion hydrochloride 150 mg extended release oral tablet (10 sources)AminoketoneStart: 03-06-2024 End: 52-08-3419xllq 1 tablet by mouth every twenty-four hours in the morning buPROPion XL (Wellbutrin XL) 150 MG 24 hr tablet Take 150 mg by mouth in the morning. 03/06/2024 12/01/2024 DiscontinuedStart: 12-05-2023 End: 70-28-4452odet 150 mg by mouth once daily in the morningBupropion Hcl Active 150 MG PO Every morning January 07, 2024 12:59pm End: 50-18-7594lkSZMIjxz SR (Wellbutrin SR) 150 MG 12 hr tablet 12/01/2024 DiscontinuedDULoxetine 60 mg delayed release oral capsule (12 sources)Serotonin and Norepinephrine Reuptake InhibitorStart: 12-05-2023 End: 66-00-5555xxrb 1 capsule by mouth once dailyDuloxetine (Cymbalta) 30 mg capsule,delayed release(DR/EC) Discontinued 30 MG PO Daily 14 14 December 05, 2023 12:00am December 18, 2023 1:01pmStart: 01-09-2023 End: 01-47-5518ivrd 1 capsule by mouth once dailyDuloxetine (Cymbalta) 60 mg capsule,delayed release(DR/EC) Discontinued 60 MG PO Daily December 05, 2023 12:00am December 05, 2023 4:15pmethinyl estradiol 0.035 mg / norgestimate 0.25 mg oral tablet (8 sources)Progestin, EstrogenStart: 01-16-2024 End: 87-02-5812fzmdvgudrtzn-ethinyl estradiol (Ortho-Cyclen) 0.25-35 MG-MCG tablet Indications: Encounter for surveillance of contraceptive pills Take 1 tablet by mouth Daily 84 tablet 3 01/16/2024 12/01/2024 DiscontinuedStart: 88-32-8615unnn 1 tablet by mouth once dailyNorgestimate-Ethinyl Estradiol Active 1 TAB PO Daily December 05, 2023 12:00amStart: 43-54-3223ghgu 1 tablet by mouth once in the morningnorgestimate-ethinyl estradioL (ORTHO-CYCLEN) 0.25-35 mg-mcg per tablet Take 1 tablet by mouth in the morning. 12/18/2022 ActiveStart: 88-11-9685uuym 1 tablet by mouth once in the morningnorgestimate-ethinyl estradioL (ORTHO-CYCLEN) 0.25-35 mg-mcg per tablet Take 1 tablet by mouth in the morning. 0 12/18/2022 Hhxeji90 hr loratadine 10 mg / pseudoephedrine sulfate 240 mg extended release oral tablet (5 sources)alpha-Adrenergic AgonistStart: 08-02-2023 End: 23-69-8912wypa 10-240 mg by mouth every twenty-four hours in the morning Loratadine-D 24HR 10-240 MG 24 hr tablet Take 1 tablet by mouth in the morning. 08/02/2023 12/01/2024 DiscontinuedStart: 08-02-2023 End: 92-33-8672svee 1 tablet by mouth once in the [...] unspecified; Translations: [Mixed anxiety and depressive disorder]Onset: 515902-99-9717RpwkobqJfloyfxthbkpk (5 sources)Endometriosis of pelvic peritoneum; Translations: [Endometriosis (clinical)]Onset: 531281-29-1562LdyhocpTntkyd infertility (2 sources)Female infertility; Translations: [Female infertility, unspecified] 52-84-3369KlitelfDdzmunbuhspb complicating ; childbirth and the puerperium (2 sources)-induced hypertension; Translations: [Gestational [-induced] hypertension withoutsignificant proteinuria, unspecified trimester]28-20-1541NldweeyyEmddxxurgekvb and screening for infectious disease (3 sources)Encounter for screening for human papillomavirus (HPV); Translations: [Exposure to sexually transmissible disorder]Onset: 084487-74-3053Fjupugky Menstrual disorders (7 sources)Excessive and frequent menstruation with regular cycle; Translations: [Dysmenorrhea, unspecified]Onset: 76-74-8236SrbvatnHudh disorders (2 sources)Major depression in full remission; Translations: [Major depressive disorder, single episode, in full remission]Onset: hronic Other complications of (4 sources)Vomiting of , unspecified; Translations: [Unspecified vomiting of , unspecified as to episode of care or not applicable] 16-14-3502HotqlmbsWwvau complications of (2 sources) size does not accord with dates; Translations: [Uterine size- date discrepancy, unspecified trimester]62-08-9898NraqpehuQqqeh endocrine disorders (2 sources)Polycystic ovary syndrome; Translations: [Polycystic ovarian syndrome]43-48-2217AijrlaaBdbgb female genital disorders (1 source)Unspecified dyspareunia; Translations: [UNSPECIFIED DYSPAREUNIA]Onset: 64-56-4558EjagnyiXofxg female genital disorders (1 source)Abnormal uterine and vaginal bleeding, unspecified; Translations: [ABNORMAL UTERINE VAGINAL BLEED UNS]Onset: 37-95-6024ZuqqfdmCatwt female genital disorders (2 sources)Abnormal uterine bleeding; Translations: [Abnormal uterine and vaginal bleeding, unspecified]39-88-4589EvxadjjOifwh female genital disorders (4 sources)Vaginal discharge; Translations: [Other specified noninflammatory disorders of vagina]17-09-4344FrkbvmjpTsphf gastrointestinal disorders (2 sources)Constipation; Translations: [Constipation, unspecified]01-13-2025 EpisodicOther nutritional; endocrine; and metabolic disorders (1 source)Obesity, unspecified; Translations: [OBESITY UNSPECIFIED]Onset: 81-95-5060WqgvjpaRmplt nutritional; endocrine; and metabolic disorders (2 sources)Insulin resistance; Translations: [Insulin resistance]12-01-2024 ChronicOther and delivery including normal (16 sources); Translations: [Encounter for supervision of normal , unspecified, unspecified trimester]49-12-9014FnxvmipgQhtmr screening for suspected conditions (not mental disorders or infectious disease) (8 sources)Encounter for screening for malignant neoplasm of cervix; Translations: [Patient encounter status]Onset: 24-81-1546NwnbcxwvIfuvbukgdqtsue and other problems of amniotic cavity (2 sources)Subchorionic hematoma; Translations: [Other specified disorders of amniotic fluid and membranes, first trimester, not applicable or unspecified] 27-55-0028FjrfyujmGhsvmotn codes; unclassified (2 sources)Gestation period, 13 weeks; Translations: [13 weeks gestation of ]91-11-1085VixlrjomXfpbhwsb codes; unclassified (2 sources)Gestation period, 17 weeks; Translations: [17 weeks gestation of ]48-20-0027XpjlopzpFfrsllpr codes; unclassified (2 sources)Gestation period, 21 weeks; Translations: [21 weeks gestation of ]79-32-3156HlrewukoVxvpobiw codes; unclassified (2 sources)Gestation period, 24 weeks; Translations: [24 weeks gestation of ]55-73-0328SttywdbiZjzlxdij codes; unclassified (4 sources)Gestation period, 28 weeks; Translations: [28 weeks gestation of ]19-60-8065XdelkxovEwlwfsuukwkq (1 source)CONTACT W/AND (SUSP) EXPOS COVID-19; Translations: [CONTACT W/AND (SUSP) EXPOS COVID-19]Onset: 16-91-4263Kdyvtfuyccwe (2 sources)pre employment; Translations: [pre employment]Onset: 03-04-2025 Past or Other Problems Problem ClassificationProblemDateDocumented DateEpisodic/ChronicAbdominal pain (1 source)Pelvic and perineal pain; Translations: [PELVIC AND PERINEAL PAIN] Onset: 03-23-8623MewnaighNiyd disorders (3 sources)Mood disorders; Translations: [DEPRESSION UNSPECIFIED]Onset: Other circulatory disease (1 source)Elevated blood pressure; Translations: [Elevated blood-pressure reading, without diagnosis of hypertension]36-94-5075ZxbaxmcdCwveu upper respiratory infections (1 source)Acute maxillary sinusitis; Translations: [Acute maxillary sinusitis, unspecified]51-74-2059AbqzkgqgJveqcz media and related conditions (1 source)Acute non-suppurative otitis media - serous; Translations: [Acute serous otitis media, bilateral]51-19-9750FkppusunWccatwumnawt (2 sources)Onset: Results Test NameValueInterpretationReference RangeFacilityUS OB FOLLOW UP TRANSABDOMINAL APPROACHon 57-22-1322FN OB FOLLOW UP TRANSABDOMINAL APPROACH FINDINGS: A single, live intrauterine is present with normal cardiac rate of 147 beats per minute. Normal activity and amniotic fluid volume. Amniotic fluid index is 15 cm. Morphology is grossly normal. The current sonographic age is 32 weeks and 2 days, based on the following measurements: BPD 8.3 cm (33 weeks, 2 days) Head Circumference 30.0 cm (33 weeks, 2 days) Abdominal Circumference 26.8cm (30 weeks, 6 days) Femur Length 6.1cm (31 weeks, 3 days) Presentation Cephalic Weight (g) by Percentile 69.3 % * These measurements result in an estimated date of delivery of August 14, 2025. The current estimated weight is 1774 grams (3 pound, 15 ounces). Comparison made with April 08, 2025 weight by percentile was 76.2% and delivery at that timewas August 23, 2025. IMPRESSION: Single, live intrauterine , current sonographic age of 32 weeks and 2 days, with an estimated date of delivery of August 14, 2025. * Estimated Weight (g) by Percentile is based upon an accurate estimated age based on last menstrual period. TRANSCRIBED BY: ELECTRONICALLY SIGNED BY: Javier Barrios AvailableComment on above:Order Comment: US OB SCAN FOR GROWTH Estimated Date of Delivery: 08/26/25 Gestational Age as of 06/08/2025: 30i6zLhstqrfkjg macro (dipstick) panel (U)on 84-23-1590Enwsjtipa, UANegativeNegative - 4(70) +++ mg/dLNOMS HealthcareBlood, UANegativeNegative - 50 Randall/mcLNOMS HealthcareClarity, UAClearNOMS Healthcare Color, UAYellowNOMS HealthcareGlucose, UANegativeNegative - 1999(110) ++++ mg/dL N[facility]S HealthcareInterpretation and review of laboratory resultsNormalNOMS HealthcareKetones, UANegativeNegative - 160(16) ++++ mg/dLNOMS Healthcare Leukocytes, UANegativeNegative - 500+++ Johnson/mcLNOMS HealthcareNitrite, UA NegativeNegative - PositiveNOMS HealthcarepH, UA6.05 - 9NOMS HealthcareProtein, UANegativeNegative - 2000(20) ++++ mg/dLNOMS HealthcareSpec Grav, UA1.0201 - 1.03NOMS HealthcareUrobilinogen, UA1.00.2 - 12 mg/dLNOMS HealthcareNOMS HealthcareUrinalysis macro (dipstick) panel (U)on 60-31-9741Kahtucodw, UA NegativeNegative - 4(70) +++ mg/dLNOMS HealthcareBlood, UANegativeNegative - 50 Randall/mcLNOMS HealthcareClarity, UAClearNOMS HealthcareColor, UAYellowNOMS HealthcareGlucose, UANegativeNegative - 1999(110) ++++ mg/dLNOMS Healthcare Interpretation and review of laboratory resultsAbnormalNOMS HealthcareKetones, UANegativeNegative - 160(16) ++++ mg/dLNOMS HealthcareLeukocytes, UAPositive Negative - 500+++ Johnson/[facility] CenterNOMS HealthcareComment on above:1+Nitrite, UANegative Negative - PositiveNOMS HealthcarepH, UA6.05 - 9NOMS HealthcareProtein, UA PositiveNegative - 1999(20) ++++ mg/dLNOMS HealthcareSpec Grav, UA1.0201 - 1.03 NOMS HealthcareUrobilinogen, UA1.00.2 - 12 mg/dLNOMS HealthcareNOMS Healthcare Urinalysis macro (dipstick) panel (U)on 76-86-1362Jaxrbtwbu, UANegativeNegative - 4(70) +++ mg/dLNOMS HealthcareBlood, UANegativeNegative - 50 Randall/mcLNOMS HealthcareClarity, UAClearNOMS HealthcareColor, UAYellowNOMS HealthcareGlucose, UANegativeNegative - 1999(110) ++++ mg/dLNOMS HealthcareInterpretation and review of laboratory resultsAbnormalNOMS HealthcareKetones, UANegativeNegative - 160(16) ++++ mg/dLNOMS HealthcareLeukocytes, UA3+Negative - 500+++ Johnson/[facility] CenterNOAL HealthcareNitrite, UANegativeNegative - PositiveNOMS HealthcarepH, UA8.55 - 9 NOMS HealthcareProtein, UATraceNegative - 1999(20) ++++ mg/dLNOMS HealthcareSpec Grav, UA1.011 - 1.03NOMS HealthcareUrobilinogen, UA2.00.2 - 12 mg/dLNOMS HealthcareNOMS HealthcareIGP,APTIMA HPV,AGE GDLNon 74-22-8666RNZ GDLN ACOG TESTINGNote.[facility] HealthcareComment on above:TESTS RESULT FLAG UNITS REF RANGE LAB Clinician Provided Cytology Information Source.............[employer] Other.............. No. of containers..01 ThinPrep Vial Age Madhu CRANE Millie... FLAG LEGEND: L-Low Normal,H-High Normal,LL-Alert Low,HH-Alert High <-Panic Low,>-Panic High,A-Abnormal,AA-Critical Abnormal Performed at: 01 =[facility] [address] [place] [address] Beverly Nguyen MD, IGP, RFX APTIMA HPV ASCUNote.NOMS HealthcareComment on above:TESTS RESULT FLAG UNITS REF RANGE LAB DIAGNOSIS: 02 NEGATIVE FOR INTRAEPITHELIAL LESION OR MALIGNANCY. FUNGAL ORGANISMS MORPHOLOGICALLY CONSISTENT WITH ROSALBA SPECIES ARE PRESENT. Specimen adequacy: 02 Satisfactory for evaluation. Endocervical and/or squamous metaplastic cells (endocervical component) are present. Performed by: 02 Sonai Beckham, Tool Salvage Worker ([facility]) . 02 Note: Note 02 The Pap [...] High <-Panic Low,>-Panic High,A-Abnormal,AA-Critical Abnormal Performed at: [address] [place] [id number] Beverly Nguyen MD, Performed at: = - [address] [id number] Manager Financial: Beverly Nguyen MD, Phone: [phone] Performed at: [address] [id number] Manager Financial: Beverly Nguyen MD, Phone: [phone] SPATULA-ALONE ENDOCERVIX CLINISYNCNOMS HealthcareAFP, SERUM, OPEN SPINA BIFIDAon 68-66-5763OMM MOM1.10. [facility] HealthcareAFP VALUE34.4 ng/mL.[facility] HealthcareCOMMENT:Comment.[facility] HealthcareComment on above:Giselle Merida, Ph.D., [facility] Director References: Available Upon Request. Multiples Of Median Cutoffs For AFP Elevations Sellers 2.5 Black 2.8 IDD 2.0 Twins 4.5 Abbreviation Definitions IDD - Insulin Dep Diabetes OSBR - Open Spina Bifida Risk For further inquiries contact [facility] at [phone]. This test was developed and its performance characteristics determined by [facility]. It has not been cleared or approved by the Food and Drug Administration. Performed at: - [facility] [address] [facility], [place], [place] [id number] Manager Financial: Nirmal Means [facility], Phone: [phone] GEST. AGE ON COLLECTION DATE17.0. weeksNOAL HealthcareGESTAT. AGE BASED ONLMP. NOMS HealthcareComment on above:Recalculations are not recommended when gestational dating by LMP and ultrasound are within 10 days. INSULIN DEP DIABETESNo.NOM HealthcareINTERPRETATIONComment.[facility] Healthcare Comment on above:Interpretation: Screen Negative This [...] Customer Services to discuss available options. The [employer] recommends amniocentesis be offered to women age 35 and older. MATERNAL AGE AT EDD25.9. yrNOAL HealthcareMULTIPLE GESTATIONNo.[facility] OSBR RISK 1 [id number].[facility] HealthcareRACECaucasian.[facility] CenterRESULTSReport. [facility] CenterTEST RESULTS:Negative.[facility] UezkuvukhiGVUMJR051. lbsNOMS HealthcarePREGNANCY N N LMP [id number] 17 N 1 Y 206 N N N N N White/ CLINISYNCNOMS HealthcareRECURRENT VAGINITIS (HTRX)on 23-62-9321ZJHGELCRA VAGINAE 0NOMS HealthcareATOPOBIUM VAGINAENot detectedNOMS HealthcareBVAB 2,3 (BACTERIAL VAGINOSIS ASSOCIATED BACTERIA 2, 3); MOBILUNCUS [id number] HealthcareBVAB 2,3 (BACTERIAL VAGINOSIS ASSOCIATED BACTERIA 2, 3); MOBILUNCUS SPPNot detectedNOMS HealthcareCANDIDA ALBICANS, PARAPSILOSIS, DFWMPRPARB62.725AbnormalNOMS HealthcareCANDIDA ALBICANS, PARAPSILOSIS, TROPICALISDetectedAbnormalNOMS HealthcareCANDIDA TRFEOWGV6LNGV HealthcareCANDIDA GLABRATANot detectedNOMS HealthcareCANDIDA ZWMSQA8FMEW HealthcareCANDIDA KRUSEINot detectedNOMS HealthcareCHLAMYDIA FKQFLVKQTXQ2LJBQ HealthcareCHLAMYDIA TRACHOMATISNot detected NOMS HealthcareGARDNERELLA XALNRPAXE99.732AbnormalNOMS HealthcareGARDNERELLA VAGINALISDetectedAbnormalNOMS HealthcareInterpretation and review of laboratory resultsAbnormalNOMS HealthcareMEGASPHAERA (TYPES 1, 2)0[facility] MEGASPHAERA (TYPES 1, 2)Not detectedNOMS HealthcareMYCOPLASMA APLBSKXFQT0TKRZ HealthcareMYCOPLASMA GENITALIUMNot detectedNOMS HealthcareNEISSERIA GONORRHOEAE0 NOMS HealthcareNEISSERIA GONORRHOEAENot detectedNOMS HealthcareTRICHOMONAS [id number] HealthcareTRICHOMONAS VAGINALISNot detectedNOMS HealthcareNOMS HealthcareUS OB LIMITED 1+ FETUSESon 79-75-0228CC OB LIMITED 1+ FETUSESFINDINGS: Cephalic presentation. Anterior [...] was 11/19/2024 (approximate).Urinalysis macro (dipstick) panel (U)on 28-51-0491Czfhpgpiu, UANegativeNegative - 4(70) +++ mg/dL N[facility] HealthcareBlood, UANegativeNegative - 50 Randall/mcLNOMS HealthcareClarity, UA ClearNOMS HealthcareColor, UAYellowNOMS HealthcareGlucose, UANegativeNegative - 1999(110) ++++ mg/dLNOAL HealthcareInterpretation and review of laboratory resultsAbnormalNOAL HealthcareKetones, UANegativeNegative - 160(16) ++++ mg/dL NOMS HealthcareLeukocytes, UAPositiveNegative - 500+++ Johnson/mcLNOMS Healthcare Comment on above:3+Nitrite, UANegativeNegative - PositiveNOMS HealthcarepH, UA75 - 9NOMS HealthcareProtein, UANegativeNegative - 2000(20) ++++ mg/dLNOMS HealthcareSpec Grav, UA1.021 - 1.03NOAL HealthcareUrobilinogen, UA1.00.2 - 12 mg/dLNOLake Regional Health SystemNOAL HealthcareQuantiFERON Tbon 20-17-9587GEP InterNegative NormalNEGPremier Health Atrium Medical CenterComsturgis hospital on above:Result Comment: Quantiferon TB Gold Plus [...] Mycobacterium tuberculosis Infection -- [place], 2010 (http://www.cdc.gov/mmwr/preview/mmwrhtml/zy4744w1.htm), for more information concerning test performance in low-prevalence populations and use in occupational screening.Performed By: #### QFTB #### [facility] [address] [place], [place] [id number] Manager Financial: Hamlet Cai Juan minus NIL9.92 IU/mLNormalPremier Health Atrium Medical CenterComsturgis hospital on above:Performed By: #### QFTB #### [facility] [address] [place], [place] [id number] Manager Financial: Hamlet Caii TB1 minus NIL0.00 IU/mLNormal0.00-0.34 [facility] CenterComsturgis hospital on above:Performed By: #### QFTB #### [facility] [address] [place], [place] [id number] Manager Financial: Lance Chester MDQuanti TB2 minus NIL0.00 IU/mLNormal0.00-0.34 [facility] Atrium Medical CenterComment on above:Performed By: #### QFTB #### [facility] [address] [place], [place] [id number] Manager Financial: Lance Chester MDQuantiFERON NIL0.08 IU/mLNormalPremier Health Atrium Medical CenterComment on above:Performed By: #### QFTB #### [facility] [address] [place], [place] [id number] Manager Financial: Lance Chester MDUrinalysis macro (dipstick) panel (U)on 60-15-1815Sexvhbfzt, UANegativeNegative - 4(70) +++ mg/dLNOMS HealthcareBlood, UANegativeNegative - 50 Randall/mcLNOMS HealthcareClarity, UAClearNOMS Healthcare Color, UAYellowNOMS HealthcareGlucose, UANegativeNegative - 2000(110) ++++ mg/dL N[facility]S HealthcareInterpretation and review of laboratory resultsNormalNOMS HealthcareKetones, UANegativeNegative - 160(16) ++++ mg/dLNOMS Healthcare Leukocytes, UAPositiveNegative - 500+++ Johnson/mcLNOMS HealthcareComment on above: largeNitrite, UANegativeNegative - PositiveNOMS HealthcarepH, UA75 - 9NOMS HealthcareProtein, UANegativeNegative - 2000(20) ++++ mg/dLNOMS HealthcareSpec Grav, UA1.0151 - 1.03NOMS HealthcareUrobilinogen, UA0.20.2 - 12 mg/dLNOMS HealthcareNOMS HealthcareUS OB TRANSVAGINALon 11-28-9398Q[address] [address] Ultrasound Report Signed Patient: MEREDITH TEMPLETON MR#: [id number] : 2000 Acct:[id number] Age/Sex: 24 / F ADM Date: 02/11/25 Loc: US Attending Dr: Abad Canchola D.O. Ordering Physician: Abad Canchola D.O. Date of Service: 02/11/25 Procedure(s): US OB transvaginal Accession Number(s): [id number] cc: Michelle Pabon M.D.; Aabd Canchola D.O. [place] [address] Patient Name: MEREDITH TEMPLETON MRN: [id number] date: 2000 Sex: F Assigned Patient Location: US Current Patient Location: US Accession/Order Number: [id number] Exam Date: 02/11/2025 09:39 Report Date: 02/11/2025 [...] Gillette M.D. 02/11/2025 9:43 AM Dictation Location: [place] [address] Electronically authenticated by: [id number] Y Date: 02/11/2025 09:43 Dictated By: Misa Gillette M.D. Signed By: 02/11/2546 DD/ 2 TD/TT: Spray Foam Installer:SHERRIEadiology, Radiologist, - 02/11/[address] [address] Ultrasound Report Signed Patient: MEREDITH TEMPLETON MR#: [id number] : 2000 Acct:[id number] Age/Sex: 24 / F ADM Date: 02/11/25 Loc: US Attending Dr: Abad Canchola D.O. Ordering Physician: Abad Canchola D.O. Date of Service: 02/11/25 Procedure(s): US OB transvaginal Accession Number(s): [id number] cc: Michelle Pabon M.D.; Abad Canchola D.O. The [place] [id number] Patient Name: MEREDITH TEMPLETON MRN: [id number] date: 2000 Sex: F Assigned Patient Location: US Current Patient Location: US Accession/Order Number: [id number] Exam Date: 02/11/2025 09:39 Report Date: 02/11/2025 [...] Gillette M.D. 02/11/2025 9:43 AM Dictation Location: [place] [address] Electronically authenticated by: [id number] Y Date: 02/11/2025 09:43 Dictated By: Misa Gillette M.D. Signed By: 02/11/2546 DD/ 2 TD/TT: Spray Foam Installer: [facility] CenterRadiology Study observation (narrative)[facility] CenterUS OB TRANSVAGINALOrdered By: Radiologist Radiology on 96-75-5961VPLDMid [facility] Mental Health Center Work Phone: HCG ( test) Ql (U)on 11-52-6451Aghkpzdoumjwmc and review of laboratory resultsAbnormalNOLake Regional Health SystemPreg Test, UrPositive NegativeNOAscension St. Luke's Sleep CenterMLR HEMOGLOBIN A1Con 50-88-2747Jiwvahi [Mass/Vol]91 mg/dLMid [facility] Mental Health CenterHbA1c (Bld) [Mass fraction]4.8 %4.5 - 6.2 %[facility] CenterComment on above:ADA RECOMMENDED LIMIT 4.0 - 6.0 ADA THERAPEUTIC TARGET < 7.0 ACTION SUGGESTED > 7.0 CLINISYNCNOAL HealthcareUS OB TRANSVAGINALon 62-85-1381RL OB TRANSVAGINALEXAM: US OB TRANSVAGINAL HISTORY: Dating. [...] II, MD, PHD at 22-Jan-2025 10:24:02 AM [facility] TeleradiologyNormalNot AvailableComment on above:Order Comment: US OB TRANSVAGINAL Patient's last menstrual period was 11/19/2024 (approximate).Urinalysis macro (dipstick) panel (U)on 03-39-5209Kjvhozfqg, UANegativeNegative - 4(70) +++ mg/dL NOMS HealthcareBlood, UANegativeNegative - 50 Randall/mcLNOMS HealthcareClarity, UA ClearNOMS HealthcareColor, UAYellowNOMS HealthcareGlucose, UANegativeNegative - 2000(110) ++++ mg/dLNOMS HealthcareInterpretation and review of laboratory resultsNormalNOMS HealthcareKetones, UANegativeNegative - 160(16) ++++ mg/dLNOMS HealthcareLeukocytes, UATraceNegative - 500+++ Johnson/mcLNOMS HealthcareNitrite, UA NegativeNegative - PositiveNOMS HealthcarepH, UA65 - 9NOMS HealthcareProtein, UA NegativeNegative - 2000(20) ++++ mg/dLNOMS HealthcareSpec Grav, UA1.011 - 1.03 NOMS HealthcareUrobilinogen, UA0.20.2 - 12 mg/dLNOMS HealthcareNOMS Healthcare Urinalysis macro (dipstick) panel (U)on 79-69-2690Yqypvgsea, UANegativeNegative - 4(70) +++ mg/dLNOMS HealthcareBlood, UANegativeNegative - 50 Randall/mcLNOMS HealthcareClarity, UAClearNOMS HealthcareColor, UAYellowNOMS HealthcareGlucose, UANegativeNegative - 1999(110) ++++ mg/dLMOUNTAIN VIEW [facility]ITAL HealthcareInterpretation and review of laboratory resultsAbnormalNOAL HealthcareKetones, UANegativeNegative - 160(16) ++++ mg/dLMOUNTAIN VIEW HOSPITAL HealthcareLeukocytes, UAPositiveNegative - 500+++ Johnson/mcL [facility] HealthcareComment on above:LargeNitrite, UANegativeNegative - PositiveNOAL HealthcarepH, UA75 - 9NOMS HealthcareProtein, UANegativeNegative - 2000(20) ++++ mg/dLMOUNTAIN VIEW HOSPITAL HealthcareSpec Grav, UA1.0151 - 1.03NOAL HealthcareUrobilinogen, UA0.2 0.2 - 12 mg/dLSaint Francis Hospital & Health Services HealthcareALL CBC WITH AUTO DIFFon 12-01-2024 BASOPHILS ABSOLUTE AUTO0.1NOMS HealthcareBasophils/100 WBC (Bld)0.5 %0.2 - 2.0 % [facility] CenterEosinophils/100 WBC (Bld)2.6 %0.9 - 7.0 %[facility] Erythrocyte distribution width (RBC) [Ratio]12.2 %11.0 - 15.0 %[facility] Hematocrit (Bld) [Volume fraction]42.8 %36.0 - 48.0 %[facility] CenterHemoglobin (Bld) [Mass/Vol]14.8 g/dL12.0 - 16.0 g/dLMid [facility] Mental Health CenterIMMATURE GRANULOCYTES ABS AUTO0.01NOLake Regional Health SystemImmature granulocytes/100 WBC (Bld)0.1 %0.0 - 0.5 % [facility] CenterLYMPHOCYTES ABSOLUTE AUTO2.8NOLake Regional Health SystemLymphocytes/100 WBC (Bld)29.5 %20.5 - 60.0 %[facility] InstituteH (RBC) [Entitic mass]29.6 pg26.7 - 34.0 pgFreeman Cancer InstituteHC (RBC) [Mass/Vol]34.6 g/dL29.9 - 35.2 g/dLFreeman Cancer InstituteV (RBC) [Entitic vol]85.6 fL81.0 - 99.0 fLMid [facility] Mental Health CenterMONOCYTES ABSOLUTE AUTO0.6NOLake Regional Health SystemMonocytes/100 WBC (Bld)5.8 %1.7 - 12.0 %[facility] HealthcareNEUTROPHILS ABSOLUTE AUTO5.8NOMS HealthcareNeutrophils/100 WBC (Bld) 61.5 %43.0 - 75.0 %NOMS HealthcarePlatelet mean volume (Bld) [Entitic vol]10 fL 9.5 - 13.5 fLNOMS HealthcareTBH EO #0.3NOMS HealthcareTBH VSN878SJHK Healthcare TBH HRR4MJFX HealthcareTBH WBC9.5NOMS HealthcareCLINISYNCNOMS HealthcareHCG ( test) Ql (U)on 27-05-6677Bgzyksrxfyfknd and review of laboratory resultsNormalMid [facility] CenterPreg Test, UrNegativeNegativeNOSainte Genevieve [facility] HealthcareUrinalysis macro (dipstick) panel (U)on 73-71-5941Kucdtoygk, UA NegativeNegative - 4(70) +++ mg/dLNOAL HealthcareBlood, UANegativeNegative - 50 Randall/mcLNOAL HealthcareClarity, UAClearNOAL HealthcareColor, UAYellowNOAL HealthcareGlucose, UANegativeNegative - 2000(110) ++++ mg/dLMid [facility] Center Interpretation and review of laboratory resultsAbnormalMOUNTAIN VIEW HOSPITAL HealthcareKetones, UANegativeNegative - 160(16) ++++ mg/dLMid [facility] Health CenterLeukocytes, UAPositive Negative - 500+++ Johnson/mcLNOAL HealthcareComment on above:smallNitrite, UA NegativeNegative - PositiveNOAL HealthcarepH, UA75 - 9NOMS HealthcareProtein, UA NegativeNegative - 2000(20) ++++ mg/dLNOAL HealthcareSpec Grav, UA1.011 - 1.03 [facility] CenterUrobilinogen, UA0.20.2 - 12 mg/dLNOMS [facility] Medical CenterNOAL Healthcare IGP,APTIMA HPV,AGE GDLNon 01-41-6867JTU GDLN ACOG TESTINGNote.[facility] Comment on above:TESTS RESULT FLAG UNITS REF RANGE LAB Clinician Provided Cytology Information Source.............Cervix;Endocervix No. of containers..01 ThinPrep Vial Phan Pinto... FLAG LEGEND: L-Low Normal,H-High Normal,LL-Alert Low,HH-Alert High <-Panic Low,>-Panic High,A-Abnormal,AA-Critical Abnormal Performed at: 01 =G [facility] [address] Beverly Nguyen MD, IGP, RFX APTIMA HPV ASCUNote.[facility] CenterComment on above:TESTS RESULT FLAG UNITS REF RANGE LAB DIAGNOSIS: 02 NEGATIVE FOR INTRAEPITHELIAL LESION OR MALIGNANCY. Specimen adequacy: 02 Satisfactory for evaluation. No endocervical component is identified. Performed by: Pricila Smith, Theatrical Variety Agent ([facility]) . 02 Note: Note 02 The Pap [...] <-Panic Low,>-Panic High,A-Abnormal,AA-Critical Abnormal Performed at: [address] [address] Beverly gNuyen MD, Performed at: = - [address] [id number] Manager Financial: Beverly Nguyen MD, Phone: [phone] Performed at: [facility] [id number] Manager Financial: Beverly Nguyen MD, Phone: [phone] BRUSH-SPATULA CERVIX ENDOCERVIX CLINISYNCNOMS HealthcareComprehensive Metabolic Panelon 32-65-2793Udsjtmx [Mass/Vol]4.2 g/dLNormal3.5-5.0Mer[facility] County Community HospitalComment on above:Order Comment: Ordered by ANNEL Loving By: #### KEIRA, [id number] #### [place] [address] Ph. [phone] [Catalytic activity/Vol]77 U/WHtkvon21-413LmidntkAccess Hospital DaytonComment on above:Order Comment: Ordered by ANNEL Loving By: #### KEIRA, [id number] #### [address] [address] Ph. [phone] [Catalytic activity/Vol]29 U/LNormal0-35WAccess Hospital DaytonComment on above:Order Comment: Ordered by ANNEL KUNSPerformed By: #### CMP, [id number] #### [place] [address] Ph. [phone] [Catalytic activity/Vol]30 U/HYbtebo04-93WqwvrzpAccess Hospital DaytonComment on above:Order Comment: Ordered by ANNEL Loving By: #### CMP, [id number] #### [place] [address] Ph. [phone] [Mass/Vol]0.4 mg/dLNormal0.2-1.3WAccess Hospital DaytonComment on above:Order Comment: Ordered by ANNEL Loving By: #### CMP, [id number] #### [place] [address] Ph. [phone] [Mass/Vol]9.2 mg/dLNormal8.4-10.2WAccess Hospital DaytonComment on above:Order Comment: Ordered by ANNEL Loving By: #### CMP, [id number] #### [place] [address] Ph. [phone] [Moles/Vol]101 mmol/ZFgnhns30-964TzowwjlAccess Hospital DaytonComment on above:Order Comment: Ordered by ANNEL Loving By: #### CMP, [id number] #### [place] [address] Ph. [phone] [Moles/Vol]25 mmol/IJhiytg72-24LanlueyAccess Hospital Dayton Comment on above:Order Comment: Ordered by ANNEL Loving By: #### CMP, [id number] #### [place] [address] Ph. [phone] [Mass/Vol]0.71 mg/dLNormal0.52-1.04WAccess Hospital DaytonComment on above:Order Comment: Ordered by ANNEL Loving By: #### CMP, [id number] #### [address] [address] Ph. [phone]/1.73 sq M.predicted among non-blacks MDRD (S/P/Bld) [Vol rate/Area]122 mL/min/{1.73_m2}Normal>60WAccess Hospital DaytonComment on above:Order Comment: Ordered by ANNEL Reynoso Comment: GFR calculated using CKD-EPI (2020) formula.\X0D0A\Stage 1 Kidney damage (e.g., protein in the urine) with normal GFR >=90\X0D0A\Stage 2 Kidney damage with mild decrease in GFR 60-8 9\X0D0A\Stage 3a Moderate decrease in GFR 45-59\X0D0A\Stage 3b Moderate decrease in GFR 30-44\X0D0A\Stage 4 Severe reduction in GFR 15-29\X0D0A\Stage 5 Kidney failure <15Performed By: #### CMP, [id number] #### [address] [address] Ph. [phone] [Mass/Vol]85 mg/tHPiciug16-294TlniqtxMercer County Community Hospital Comment on above:Order Comment: Ordered by ANNEL Loving By: #### CMP, [id number] #### [address] [address] Ph. [phone] [Moles/Vol]4.1 mmol/LNormal3.6-5.0WAccess Hospital DaytonComment on above:Order Comment: Ordered by ANNEL Loving By: #### CMP, [id number] #### [address] [address] Ph. [phone] [Mass/Vol]8.0 g/dLNormmi6.3-8.2[facility] Comment on above:Order Comment: Ordered by ANNEL Loving By: #### CMP, [id number] #### [address] [place] [address] Ph. [phone] [Moles/Vol]137 mmol/TDyauqx243-907ColllhcAccess Hospital DaytonComment on above:Order Comment: Ordered by ANNEL Gonzalezformed By: #### CMP, [id number] #### [place] [address] [place] [address] Ph. [phone] nitrogen [Mass/Vol]10 mg/dLNormal7-17WAccess Hospital DaytonComment on above:Order Comment: Ordered by ANNEL Gonzalezformed By: #### CMP, [id number] #### [place] [address] Ph. [phone] [Mass/Vol]4.2 g/dL3.5 - 5.0 g/dLWYANDOTALP (Bld) [Catalytic activity/Vol]77 U/L38 - 126 U/LWYANDOTALT [Catalytic activity/Vol]29 U/L0 - 35 U/LWYANDOTAST [Catalytic activity/Vol]30 U/L14 - 36 U/LWYANDOT Bilirubin [Mass/Vol]0.4 mg/dL0.2 - 1.3 mg/dLWYANDOTCalcium [Mass/Vol]9.2 mg/dL 8.4 - 10.2 mg/dLWYANDOTChloride [Moles/Vol]101 mmol/LWYANDOTCO2 [Moles/Vol]25 mmol/LWYANDOTCreatinine [Mass/Vol]0.71 mg/dL0.52 - 1.04 mg/dLWYANDOTGFR, Rmjabgtkg162- PINFWYANDOTComment on above: GFR calculated using CKD-EPI [...] (BldV) [Mass/Vol]10 mg/dL7 - 17 mg/dLWYANDOTOrdered by ANNEL FINN M[facility] GRAYLING HOSPITALEZRATTSH Reflex FT4on 11-70-0197QAT1.420 mIU/mLNormal0.470-4.680WProMedica Toledo Hospital on above:Order Comment: Ordered by ANNEL Gonzalezformed By: #### CMP, [id number] #### [place] [address] Ph. [phone] with Reflexon 83-79-6014MSD Qn2.420 m[IU]/LWYANDOTOrdered by [facility] BASILSPANISH PEAKS REGIONAL HEALTH CENTERWYANDOTPAP ACOG PANEL 2: to 03-01-2022.. NormalThe [facility] TroyComment on above:Performed By: #### [id number] #### [facility] [address] [place] [address] Dr. Dallas Kaplan Gdln ACOG Ybhlhfy86-74RxbqnaSpxFayette County Memorial HospitalComsturgis hospital on above:Performed By: #### [id number] #### [facility] [address] [place] [address] Dr. Dallas WolfDIAGNOSIS:CommentAultman Orrville Hospital on above: Result Comment: NEGATIVE FOR INTRAEPITHELIAL LESION OR MALIGNANCY.Performed By: #### [id number] #### [facility] [address] [place] [address] Dr. Dallas WolfMethodology:CommentAultman Orrville Hospital on above: Result Comment: This liquid based ThinPrep(R) pap test was screened with the use of an image guided system.Performed By: #### [id number] #### [facility] [address] [place] [address] Dr. Dallas WolfNote:CommentAultman Orrville Hospital on above:Result Comment: The Pap smear is a screening test designed to aid in the detection of premalignant and malignant conditions of the uterine cervix. It is not a diagnostic procedure and should not be used as the sole means of detecting cervical cancer. Both false-positive and false-negative reports do occur. .Performed By: #### [id number] #### [facility] [address] [place] [address] Dr. Dallas WolfPerformed by:CommentAultman Orrville Hospital on above: Result Comment: Nikolay Smith, Theatrical Variety Agent (ASCP)Performed By: #### [id number] #### [place] [address] Dr. Dallas WolfReflex Criteria:[facility] on above:Result Comment: The HPV DNA reflex criteria were not met with this specimen result therefore, no HPV testing was performed. .Performed By: #### [id number] #### [place] [address] Dr. Dallas WolfSpecimen adequacy:[facility] on above:Result Comment: Satisfactory for evaluation. Endocervical and/or squamous metaplastic cells (endocervical component) are present.Performed By: #### [id number] #### [place] [address] Dr. Dallas Jackson AUTO DIFFon 47-59-8282QJFP #0.1 103/ulNormal0.0-0.1The The Bellevue Hospitalment on above:Performed By: #### CBC #### [facility] [address] [place] [address] Dr. Dallas WolfBasophils/100 WBC (Bld)0.8 %Normal0.2-2.0[facility] Comment on above:Performed By: #### CBC #### [facility] [address] [place] [address] Dr. Dallas Huggins #0.3 103/ulNormal0.0-0.7The [facility] on above: Performed By: #### CBC #### [facility] [address] [place] [address] [address] Dallas Mosleyosinophils/100 WBC (Bld)4.1 %Normal0.9-7.0The [facility] Comment on above:Performed By: #### CBC #### [facility] [address] [place] [address] Dr. Dallas Mosleyrythrocyte distribution width (RBC) [Ratio]13.0 %Myjltm13.0-15.0 The [facility] TroyComment on above:Performed By: #### CBC #### [facility] [address] [place] [address] Dr. Dallas WolfHematocrit (Bld) [Volume fraction]43.4 %Oimuhm14.0-48.0The [facility] TroyComment on above:Performed By: #### CBC #### [facility] [address] [place] [address] Dr. Dallas WolfHemoglobin (Bld) [Mass/Vol]14.5 g/iKQbikvx94.0-16.0The [facility] TroyComment on above:Performed By: #### CBC #### [facility] [address] [place] [address] Dr. Dallas Ortez #0.02 10e3/ulNormal0.00-0.03The [facility] TroyComment on above:Performed By: #### CBC #### [facility] [address] [place] [address] Dr. Dallas WolfIG %0.3 %Normal0.0-0.5The The Bellevue Hospitalment on above: Performed By: #### CBC #### [facility] [address] [place] [address] Dr. Dallas OsheaMPH #2.2 103/ulNormal1.2-3.8The [facility] TroyComment on above:Performed By: #### CBC #### [facility] [address] [place] [address] Dr. aDllas Osheamphocytes/100 WBC (Bld)28.1 %Hoawaf97.5-60.0The [facility] TroyComment on above:Performed By: #### CBC #### [facility] [address] [place] [address] [address] Dallas Cifuentes DIFF REQNONormalThe [facility] TroyComment on above: Performed By: #### CBC #### [facility] [address] [place] [address] Dr. Dallas Hernandez (RBC) [Entitic mass]28.5 amThbovk19.7-34.0The [facility] HospitalComment on above:Performed By: #### CBC #### [facility] [address] [place] [address] Dr. Dallas Hernandez (RBC) [Mass/Vol]33.4 g/vEExjowz85.9-35.2The [facility] TroyComment on above:Performed By: #### CBC #### [facility] [address] [place] [address] Dr. Dallas Hernandez (RBC) [Entitic vol]85.3 tGYlngga45.0-99.0The [facility] TroyComment on above:Performed By: #### CBC #### [facility] [address] [place] [address] Dr. Dallas Smith #0.6 103/ulNormal0.3-0.8The [facility] TroyComment on above:Performed By: #### CBC #### [facility] [address] [place] [address] Dr. Dallas Medranoocytes/100 WBC (Bld)7.9 %Normal1.7-12.0The [facility] Comment on above:Performed By: #### CBC #### [facility] [address] [place] [address] Dr. Dallas Garcia #4.6 103/ulNormal1.4-6.5The [facility] TroyComment on above:Performed By: #### CBC #### [facility] [address] [place] [address] Dr. Dallas Novautrophils/100 WBC (Bld)58.8 %Szwrmx29.0-75.0The The [facility] Hospitalment on above:Performed By: #### CBC #### [facility] [address] [place] [address] [address] Dallas Loulet mean volume (Bld) [Entitic vol]9.6 fLNormal9.5-13.5The [facility] on above:Performed By: #### CBC #### [facility] [address] [place] [address] [address] Dallas WolfPLT242 103/shMsordz507-464Wsf [facility] TroyComment on above: Performed By: #### CBC #### [facility] [address] [place] [address] Dr. Dallas WolfRBC5.09 106/ulNormal4.20-5.40[facility] on above:Performed By: #### CBC #### [facility] [address] [place] [address] Dr. Dallas WolfWBC7.8 103/ulNormal4.0-11.0The [facility] TroyComment on above: Performed By: #### CBC #### [facility] [address] [place] [address] Dr. Dallas WolfPREElise QUANT HCGon 03-43-3470YUD QUANT<1NormalSt. [facility] Hospital Comment on above:Performed By: #### PREGQNT #### [facility] [address] [place] [address] Dr. Dallas WolfHCElise RANGESEE [facility]ere [facility] TroyComment on above: Result Comment: 5-50 0-1 WEEK 40-300 1-2 WEEKS 100-1,000 2-3 WEEKS 500-6,000 3-4 WEEKS 5,000-200,000 1-2 MONTHS 10,000-100,000 2-3 MONTHS 3,000-50,000 2ND TRIMESTER 1,000-50,000 3RD TRIMESTERPerformed By: #### PREGQNT #### [facility] [address] [place] [address] Dr. Dallas WolfCovid-19 PCR (CVDTBH)on 40-34-9367XIBB-CoV-2 (COVID-19) RNA SANJANA+probe Ql (Unsp spec)Not detectedNormalNOT DETECTEDThe [facility] Comment on above:Result Comment: This test is not yet approved or cleared by the [place] FDA. When there are no FDA-approved or cleared tests available, and other criteria are met, FDA can make tests available under an emergency access mechanism called an Emergency Use Authorization (EUA). The EUA for this test is supported by the [place] of Health and Human Service's (HHS's) declaration [...] and symptoms consistent with SARS-CoV-2.Performed By: #### CVDTB #### [facility] [address] [place] [address] Dr. Dallas Wolf Vital Signs Date TimeVital SignValuePerforming BkyaoqgpkZoznztvi30-09-8415 15:50-0500Body mass index (BMI) [Ratio]35.19 kg/c1Osssg Jesika DO Work Phone: NOAb[employer] Fhhodhedms36-86-6935 15:50-0500Body donfnn67.88 kgCorey Jesika DO Work Phone: [phone] Regional Health SystemGebeundscv97-60-2001 15:50-0500Diastolic blood zwjcgpuv37 mm[Hg]Abad Jesika DO Work Phone: NOMS HealthcareComment on above:130/ 15:50-0500Systolic blood mm[Hg]Abad Jesika DO Work Phone: NOMS HealthcareComment on above:130/3415-60-4696 08:41-0400Body mass index (BMI) [Ratio]34.4 kg/m2Amy Gregorio PA Work Phone: [facility] CenterMjisuvzbiy04-49-5149 08:41-0400Body boiyww10.67 kgShagufta Perkins PA Work Phone: [facility] CenterCcojjzjvip95-53-7270 08:41-0400Diastolic blood oiifamvy90 mm[Hg]Shagufta Perkins PA Work Phone: [facility] CenterOwxwywnbdn74-99-6829 08:41-0400Systolic blood rlkpyfvw202 mm[Hg]Shagufta Perkins PA Work Phone: [phone] access hospital7[facility] CenterXidtqieewc85-94-8863 08:33-0400Body mass index (BMI) [Ratio]33.59 kg/g4Lssxrzws Kirill [employer] Work Phone: [facility] CenterJtawetlyeb53-68-6904 08:33-0400Body regdqs29.4 kg Say Kirill [employer] Work Phone: [facility] CenterVuypbvqdco01-42-1855 08:33-0400Diastolic blood ozweclgq32 mm[Hg]Say Cosmeerly [employer] Work Phone: [phone] access hospital5[facility] CenterZjnyalnlcs33-99-7085 08:33-0400Systolic blood vyxpryet382 mm[Hg]Say Cosmeerly [employer] Work Phone: [phone] access hospital1[facility] CenterBtvbnepvog53-90-1716 10:35-0400Body mass index (BMI) [Ratio]33.25 kg/r6Zotcv Jesika DO Work Phone: [facility] CenterTrylywbuzn56-70-8880 10:35-0400Body .44 kgCorey Jesika DO Work Phone: [phone] access hospital7[facility] CenterHrewwbxrqe70-19-2039 10:35-0400Diastolic blood gnzwmynx25 mm[Hg]Abad Jesika DO Work Phone: [phone] access hospital0[facility] CenterMvjrasubut39-02-5193 10:35-0400Systolic blood fnkoqlbr650 mm[Hg]Abad Jesika DO Work Phone: [phone] access hospitalMid [facility] Mental Health CenterTlaihdhees24-70-6705 10:37-0400Body mass index (BMI) [Ratio]33.31 kg/m2Amy Gregorio PA Work Phone: [facility] CenterGbttosgudg04-62-7401 10:37-0400Body .62 kgShagufta Perkins PA Work Phone: [facility] CenterZnjjognypg04-33-4155 10:37-0400Diastolic blood juwptvmh24 mm[Hg]Shagufta Perikns PA Work Phone: [facility] CenterLkcirevtkp55-58-3818 10:37-0400Systolic blood gsonkpzk699 mm[Hg]Shagufta Perkins PA Work Phone: [phone] [place], [place] [address]Jsnijdxpud02-13-9337 08:55-0400Body mass index (BMI) [Ratio]33.25 kg/c3Nqhty Jesika DO Work Phone: [facility] CenterQcdsrsuurd96-01-1190 08:55-0400Body zhlxsa53.44 kgCorey Jesika DO Work Phone: [facility] CenterZzcbwfcttt64-85-6047 08:55-0400Diastolic blood mm[Hg]Abad Jesika DO Work Phone: [phone] [place], [place] [address]Qjzaicpewn21-13-5722 08:55-0400Systolic blood vixebnec361 mm[Hg]Abad Jesika DO Work Phone: [facility] CenterSuoqvlyxmc31-61-4678 09:14-0400Body mass index (BMI) [Ratio]33.89 kg/x2KonvygpySay Roy [employer] Work Phone: [facility] CenterXhsjhandmp01-44-6193 09:14-0400Body efsgbp31.25 kgSay Friedmanly [employer] Work Phone: Mid [facility] CenterUefqomevvb30-33-5026 09:14-0400Diastolic blood umuqttho61 mm[Hg]Say Roy ELECTRICAL SYSTEMS DRAFTER Work Phone: [facility] CenterAeductiiqc43-53-3770 09:14-0400Systolic blood hautzhre553 mm[Hg]Say Roy ELECTRICAL SYSTEMS DRAFTER Work Phone: [phone] access hospital5[facility] CenterGflgumislg69-08-2636 11:00-0400Body mass index (BMI) [Ratio]35.32 kg/a9Rokfz Jesika DO Work Phone: [facility] CenterTyqpeyjcez76-72-5377 11:00-0400Body .25 kgCorey Jesika DO Work Phone: [facility] CenterHrhowuxeqy01-41-4653 11:00-0400Diastolic blood xyakhdaz33 mm[Hg]Abad Jesika DO Work Phone: [facility] CenterCsdymiijll93-24-7432 11:00-0400Systolic blood niziiuep694 mm[Hg]Abad Jesika DO Work Phone: [facility] CenterLoepxcowxi80-87-3589 14:07-0400Body [facility]ghfy416.64 [facility] 14:07-0400Body mass index (BMI) [Ratio]35.9 kg/b6RelwuonjpW[facility]oster [facility] Hospital07-19-2024 14:07-0400Body umromp985.15 [facility]07-19-2024 14:07-0400Diastolic blood qovhnqmw70 mm[Hg][facility]07-19-2024 14:07-0400 Heart eefb741 /[facility]07-19-2024 14:07-0400Systolic blood afdaxquq076 mm[Hg][facility]04-25-2024 15:18-0400 Body aiachg951.64 [facility]04[facility]2024 15:18-0400Body mass index (BMI) [Ratio]36.8 kg/y8QogudwhdcW[facility]oster Community Hospital04-25-2024 15:18-0400Body gupzsm154.41 [facility]04-25-2024 15:18-0400Diastolic blood fwqwsiom301 mm[Hg][facility] 12-05-2023 15:18-0400Heart rate94 /[facility] 12-05-2023 15:18-0400Systolic blood nweodmak884 mm[Hg][facility]12-22-2023 11:56-0500Body .7 cmAnnel Teresa APRN-DRY CURE WORKER Work Phone: [facility]12-22-2023 11:56-0500Body mass index (BMI) [Ratio]35.18 kg/m2Annel JACOBDRY CURE WORKER Work Phone: [facility]12-22-2023 11:56-0500Body rypudkgddpt23.2 [degF]Annel JACOBDRY CURE WORKER Work Phone: [facility]12-22-2023 11:56-0500Body adzszt006.96 kgAnnel Teresa APRNClaribelDRY CURE WORKER Work Phone: [facility]12-22-2023 11:56-0500Diastolic blood ldxtgjis77 mm[Hg]Annel JACOBDRY CURE WORKER Work Phone: [facility] CenterK[facility]12-22-2023 11:56-0500Heart rate 91 /minAnnel Treesa APRNClaribelDRY CURE WORKER Work Phone: [facility]12-22-2023 11:56-8642LkD7% (BldA) [Mass fraction]99 %Annel JACOBDRY CURE WORKER Work Phone: [facility] CenterKODA12-22-2023 11:56-0500Systolic blood iqykkwdr257 mm[Hg]Annel JACOBDRY CURE WORKER Work Phone: [facility] Encounters Encounter DateEncounter TypeCare ProviderFacilityStart: 06-21-2025 End: 58-78-8415Nvloykpe flow sheetCorey Jesika DO Work Phone: [facility] OBGYNComment on above:28 weeks gestation of ([facility] Third trimester ([facility]); induced hypertension, antepartum ([facility])Start: 06-21-2025 End: 57-48-9265aimlpnxrlqQIRVZ FAZIONot AvailableStart: 06-08-2025 End: 44-45-9566Nlnyza flowsheetAmy Gregorio MIX Work Phone: [facility] [place] [facility]BGYNStart: 06-08-2025 End: 13-94-5100Fbclrn flowsheetShagufta MIX Work Phone: [facility] [place] [facility]BGYNStart: 06-08-2025 End: 81-68-5812Xupgff outpatient visit 15 minutesShagufta MIX Work Phone: N[facility] OBGYNComment on above: size inconsistent with dates ([facility]) (Primary Dx); 28 weeks gestation of ([facility]); Second trimester ([facility])Start: 06-08-2025 End: 89-91-2767gqyggapdmoSIH RAMEYNot AvailableStart: 05-12-2025 End: 44-84-8884Gkpnio flowsMaria Isabel Roy NP Work Phone: [facility]BGYNStart: 05-12-2025 End: 17-59-0648Gcoyjc flowsMaria Isabel Roy NP Work Phone: [facility] [place] [facility]BGYNStart: 05-12-2025 End: 05-43-2757Ajarigvv flow sheetSay Roy NP Work Phone: [facility] [place] OBGYNComment on above:24 weeks gestation of ([facility]); Second trimester ([facility]); Diabetes mellitus screeningStart: 05-12-2025 End: 31-73-7744mpxhvvcbagSWEMUFVG EBERLYNot AvailableStart: 04-15-2025 End: 32-89-1825Bajkuw flowsheetCorey Jesika DO Work Phone: [facility]BGYNStart: 04-15-2025 End: 31-34-1632Znonvt flowsheetCorey Jesika DO Work Phone: [facility]BGYNStart: 04-15-2025 End: 33-83-7907Lqroswfgs Result EncounterCorey Jesika DO Work Phone: NOMS External Department UnsolicitedStart: 04-15-2025 End: 70-48-0051Caviwjjj preventive med est patient 18-39 yrsCorey Jesika DO Work Phone: NOTE [place] OBGYNComment on above:Second trimester ([facility]); 21 weeks gestation of ([facility]); Nausea and vomiting during ([facility]); Vaginal discharge during , antepartum ([facility])Start: 04-15-2025 End: 50-57-9384kitnjhesrkBHODS FAZIONot AvailableStart: 04-08-2025 End: 56-02-4742zmgptblozbSPZ RAMEYNot AvailableStart: 03-18-2025 End: 81-03-9746Gpzwqcfkb Result EncounterShagufta MIX Work Phone: noms External Department UnsolicitedStart: 03-18-2025 End: 22-23-4034Jspftnjm Result EncounterShagufta MIX Work Phone: noms External Department UnsolicitedStart: 03-18-2025 End: 31-05-0612Kzyqamie Result EncounterShagufta Gregorio MIX Work Phone: noms External Department UnsolicitedStart: 03-18-2025 End: 97-60-2490Cybfyptq flow sheetShagufta [place] Work Phone: [facility] [place] OBGYNComment on above:17 weeks gestation of ([facility]); Second trimester ([facility]); Subchorionic hematoma in first trimester, single or unspecified fetus ([facility]); Screening, , for anatomic survey ([facility]); Exposure to STD; Vaginal dischargeStart: 03-18-2025 End: 05-17-3760nnretwrxzuPXZ RAMEYNot AvailableStart: 03-04-2025 End: 79-22-9489zvyemkqvqzEECHAQA Isaac [facility]ACleveland [facility] HospitalStart: 03-04-2025 End: 54-77-5412Tnklhajzrv hospital visit by Fide Sanford CNP Work Phone: [facility] LABStart: 02-18-2025 End: 30-88-9067Yrtcbn flowsheetCorey Jesika DO Work Phone: NOMS BCP OBStart: 02-18-2025 End: 67-74-7497Jofvgk flowsheetCorey Jesika DO Work Phone: [facility] BCP OBStart: 02-18-2025 End: 91-63-8380xrguncuubjMRYVF FAZIONot AvailableStart: 02-18-2025 End: 66-64-0204Danwbkjr flow sheetCorey Jesika DO Work Phone: NOMS BCP OBComment on above:Second trimester ([facility]); 13 weeks gestation of ([facility])Start: 02-11-2025 End: 15-59-0452Wswwgeqor Result EncounterCorey Jesika DO Work Phone: NOMS External Department UnsolicitedStart: 02-11-2025 End: 88-45-5938Jbkljbrhs Result EncounterCorey Jesika DO Work Phone: NOMS External Department UnsolicitedStart: 01-21-2025 End: 13-46-3797Rdeeggmll Result EncounterCorey Jesika DO Work Phone: NOMS External Department UnsolicitedStart: 01-21-2025 End: 38-41-8334Ijqudjizi Result EncounterCorey Jesika DO Work Phone: noms External Department UnsolicitedStart: 01-21-2025 End: 15-45-2084Ahqaqt outpatient visit 5 minutesNoms Bcp Ob Jesika NurseNOMS BCP OBComment on above:GA: 6e6eHwdsl: 01-21-2025 End: 72-83-7991mlbekeosmiROJEG FAZIONot AvailableStart: 01-13-2025 End: 93-74-9794Jcumqa flowsheetSay Roy ELECTRICAL SYSTEMS DRAFTER Work Phone: NOMS BCP OBStart: 01-13-2025 End: 17-61-3005Lycgue flowsheetSay Roy ELECTRICAL SYSTEMS DRAFTER Work Phone: [facility] BCP OBStart: 01-13-2025 End: 66-35-6194moitdsgfcrSEIOZMGF EBERLYNot AvailableStart: 01-13-2025 End: 64-83-4901Buryag outpatient visit 15 minutesSay Roy ELECTRICAL SYSTEMS DRAFTER Work Phone: noms [facility] OBComment on above:GA: 8p5fZthhp: 12-01-2024 End: 93-73-9321Noxwyh flowsheetCorey Jesika DO Work Phone: noms BCP OBStart: 12-01-2024 End: 50-71-1058Qkfjfzixt Result EncounterCorey Jesika DO Work Phone: noms External Department UnsolicitedStart: 12-01-2024 End: 54-54-0431Klyqmwfsp Result EncounterCorey Jesika DO Work Phone: noms External Department UnsolicitedStart: 12-01-2024 End: 65-31-1468Pdujxi outpatient visit 15 minutesCorey Jesika DO Work Phone: noms [facility] OBComment on above:Female infertility; PCOS (polycystic ovarian syndrome); Abnormal uterine bleeding (AUB); Endometriosis; Insulin resistanceStart: 12-01-2024 End: 70-54-2885tkzskbuxocLAVOT FAZIONot AvailableStart: 03-25-2024 End: 23-21-3269Wrjdmptjv Result EncounterCorey Jesika DO Work Phone: noms External Department UnsolicitedStart: 03-25-2024 End: 60-28-8115Vefquslwy Result EncounterCorey Jesika DO Work Phone: noms External Department UnsolicitedStart: 02-28-2024 End: 74-49-8649rqvyvdbwduGnwzxjnwfToledo Hospital Work Phone: Start: 02-28-2024 End: 94-50-2459Acdccxo encounter procedureFormerly [facility] Work Phone: Start: 12-05-2023 End: 49-71-8625ppphvfhsnmIgpotoszhToledo Hospital Work Phone: Start: 12-05-2023 End: 07-01-9117Egsoafq encounter procedureFormerly [facility] Work Phone: Start: 12-03-2023 End: 07-48-4787Vakiuxvvw encounterAnnel Ivana Teresa UNDERGROUND CONDUIT INSTALLER-DRY CURE WORKER Work Phone: [facility] MedicineStart: 08-02-2023 End: 31-71-7095Xlnzud outpatient visit 15 minutesAnnel Ivana Teresa UNDERGROUND CONDUIT INSTALLER-DRY CURE WORKER Work Phone: [facility] Family MedicineComment on above:Acute non-recurrent maxillary sinusitis (Primary Dx); Non-recurrent acute serous otitis media of both ears; Elevated blood pressure readingStart: 01-10-2023 End: 35-11-0347hylqjcxrgjNREU Con[facility] Hospitaltart: 01-10-2023 End: 36-22-4192Vvjzhfveei hospital visit by physicianAnnel Teresa UNDERGROUND CONDUIT INSTALLER - FOLDING MACHINE SETTER Work Phone: [facility] LaboratoryStart: 02-26-2022 End: 91-55-4547ijwkhgzafeHS ABAD FAZIOFacility:F9Gmwvb: 73-06-5403Qixghxmjk for preprocedural laboratory examinationDR ABAD [facility] Centertart: 06-30-2021 End: 03-87-8978wjbixegtxrYI ABAD FAZIOFacility:G6Zompn: 15-93-4879Eofilszfa for other preprocedural examinationDR ABAD [facility] HospitalStart: 06-27-2021 End: 47-17-2205rwhoixbzueMP ABAD FAZIOFacility:U4Hvogl: 06-27-2021 End: 32-19-4588Ngsvvrwsm for preprocedural laboratory examinationDR ABAD JESIKA Facility:C8Ywyez: 06-21-2021 End: 18-43-3927ewncmbmcgcHK ABAD FAZIOFacility:L3Sgxsq: 06-21-2021 End: 76-62-3341Llkxrrzuo for other preprocedural examinationDR [facility] Facility:H1 Procedures DateProcedureProcedure DetailPerforming ClinicianStart: 99-95-9974Apvtp dip stick/tablet rgnt non-auto w/o micrscpCorey Jesika DO Work Phone: Start: 17-44-1331Dqlkm dip stick/tablet rgnt non-auto w/o micrscpAmy Gregorio MIX Work Phone: Start: 40-16-6038Emesw dip stick/tablet rgnt non-auto w/o micrscpKrkylah Roy NP Work Phone: Start: 79-52-3174WVL,APTIMA HPV,AGE GDLNCorey Jesika DO Work Phone: Start: 21-14-1705KMM, SERUM, OPEN SPINA BIFIDAAmaria alejandra MIX Work Phone: Start: 56-48-9689XLTFVJKNW VAGINITIS (HTRX)Shagufta MIX Work Phone: Start: 78-35-5653Zhjpu dip stick/tablet rgnt non-auto w/o micrscpAmy Gregorio MIX Work Phone: Start: 78-88-9178Zdhcv dip stick/tablet rgnt non-auto w/o micrscpCorey Jesika DO Work Phone: Start: 29-57-2462ZO OB TRANSVAGINALCorey Jesika DO Work Phone: Start: 19-79-9869NYD HEMOGLOBIN S9YEfgda Jesika DO Work Phone: Start: 01-21-2025 End: 40-96-4958Euuzo dip stick/tablet rgnt non-auto w/o micrscpCorey Jesika DO Work Phone: Start: 20-16-0382Nqsxn dip stick/tablet rgnt non-auto w/o micrscpKrkylah Roy ELECTRICAL SYSTEMS DRAFTER Work Phone: Start: 84-53-6775KCL CBC WITH AUTO DIFFCorey Jesika DO Work Phone: Start: 12-01-2024 End: 55-40-3754Nroqv dip stick/tablet rgnt non-auto w/o micrscpCorey Jesika DO Work Phone: Start: 24-37-1410FMB,APTIMA HPV,AGE GDLNCorey Jesika DO Work Phone: Start: 21-75-0924Detfa depression screening assessment Annel Teresa UNDERGROUND CONDUIT INSTALLER-DRY CURE WORKER Work Phone: Start: 75-45-6611Olmevjykewf observation [Identifier] in Cervix by Cyto stainAnnel Teresa UNDERGROUND CONDUIT INSTALLER-DRY CURE WORKER Work Phone: Start: 74-39-4907Hqiegazapbggk metabolic panelUnknown Provider Result Plan of Treatment DateCare ActivityDetailAuthorStart: 75-49-5713Yxhallhhc for malignant neoplasm of cervixPap SmearProEvertaleca [facility] SystemStart: 07-06-2025 End: 01-34-6588Sspyxir encounter ynqiyrebs64/25/2025 10:40 AM EST Routine [facility] [place] [address] [place] [phone] Abad Canchola DO [address] [place] [address] NOMFatimah [place] OBGYNStart: 06-28-2025 End: 12-22-8259Phwczin encounter fmheackox89/17/2025 3:30 PM EST Routine [facility] [address] [place], [phone] Say Roy, ELECTRICAL SYSTEMS DRAFTER [address] [place] [phone] NOMFatimah [place] OBGYNStart: 06-21-2025 End: 37-20-8957Cjhhqqb encounter mnndxyvzw88/10/2025 3:30 PM EST Routine [facility] [address] [place], [id number] Abad Canchola DO [address] [place] [address] [facility] [place] [facility]BGYNStart: 06-21-2025 End: 25-98-8731Nrijessarvmd / ancillary services jbrqsimsre06/10/2025 3:00 PM EST Ancillary Procedure [facility] [address] [place] [phone] [facility] [place] [facility]BGYNStart: 06-21-2025 End: 78-61-0089Icdbhql aminotransferase [Enzymatic activity/volume] in Serum or PlasmaALT Lab Routine induced hypertension, antepartum ([facility]) Expected: 06/21/2025 (Approximate), Expires: 06/21/2026NOAL HealthcareComment on above:Expected: 06/21/2025 (Approximate), Expires: 06/21/2026Start: 06-21-2025 End: 58-83-7785Uvlbbasfx aminotransferase [Enzymatic activity/volume] in Serum or PlasmaAST Lab Routine induced hypertension, antepartum ([facility]) Expected: 06/21/2025 (Approximate), Expires: 06/21/2026NOAL HealthcareComment on above:Expected: 06/21/2025 (Approximate), Expires: 06/21/2026Start: 06-21-2025 End: 06-54-4562LHG W Auto Differential panel - BloodCBC and differential Lab Routine induced hypertension, antepartum ([facility]) Expected: 06/12 (Approximate), Expires: 06/21/2026NOAL HealthcareComment on above: Expected: 06/21/2025 (Approximate), Expires: 06/21/2026Start: 06-21-2025 End: 11-52-2422Ltpfjwdima [Mass/volume] in Serum or PlasmaCreatinine Lab Routine induced hypertension, antepartum ([facility]) Expected: 06/21/2025 (Ap proximate), Expires: 06/21/2026[facility] Healthcare Work Phone: comment on above:Expected: 06/21/2025 (Approximate), Expires: 06/21/2026Start: 06-21-2025 End: 75-28-1272Uuzytpt dehydrogenase [Enzymatic activity/volume] in Serum or Plasma by Lactate to pyruvate reactionLactate dehydrogenase Lab Routine induced hypertension, antepartum ([facility]) Expected: 06/21/2025, Expires: 06/21/2026[facility] HealthcareComment on above:Expected: 06/21/2025, Expires: 06/21/2026Start: 06-21-2025 End: 68-86-3829Umxqgih, urine, 24 hourProtein, urine, 24 hour Lab Routine induced hypertension, antepartum ([facility]) Expected: 06/21/2025 (Approximate), Expires: 06/21/2026[facility] HealthcareComment on above:Expected: 06/21/2025 (Approximate), Expires: 06/21/2026Start: 06-21-2025 End: 09-02-3321Rp and pttPt and ptt Lab Routine induced hypertension, antepartum ([facility]) Expected: 06/21/2025, Expires: 06/21/2026[facility] Healthcare Comment on above:Expected: 06/21/2025, Expires: 06/21/2026Start: 06-21-2025 End: 42-65-1620Pwged [Mass/volume] in Serum or PlasmaUric acid Lab Routine induced hypertension, antepartum ([facility]) Expected: 06/21/2025 (Hilary roximate), Expires: 06/21/2026[facility] HealthcareComment on above:Expected: 06/21/2025 (Approximate), Expires: 06/21/2026Start: 06-21-2025 End: 13-53-0395Efsb nitrogen [Mass/volume] in Serum or PlasmaBUN Lab Routine induced hypertension, antepartum ([facility]) Expected: 06/21/2025, Expires:06/21/2026[facility] HealthcareComment on above:Expected: 06/21/2025, Expires: 06/21/2026Start: 06-08-2025 End: 98-35-4638GJ for pregnancyUS OB follow up transabdominal approach Imaging Routine size inconsistent with dates ([facility]) Expected: 06/08/2025, Expires: 10/09/2025[facility] Work Phone: comment on above:Expected: 06/08/2025, Expires: 10/09/2025Start: 06-08-2025 End: 94-75-7268Oicvpce encounter nhznjysvt59/28/2025 8:30 AM EDT Routine [facility] [address] [place], [phone] Shagufta Perkins PA [address] [place], [place] [address] ArrivedNO Logan OBGYNComment on above:ArrivedStart: 05-12-2025 End: 14-75-4914UMM panel - Blood by Automated countCBC Lab Routine Diabetes mellitus screening Expected: 05/12/2025 (Approximate), Expires: 05/12/2026[facility] Work Phone: comment on above:Expected: 05/12/2025 (Approximate), Expires: 05/12/2026Start: 05-12-2025 End: 84-60-4088Sqfcltqixut of glucose 1 hour after glucose challenge for glucose tolerance testGlucose tolerance, 1 hour Lab Routine Diabetes mellitus screening Expected: 05/12/2025 (Approximate), Expires: 05/12/2026[facility] HealthcareComment on above:Expected: 05/12/2025 (Approximate), Expires: 05/12/2026Start: 05-12-2025 End: 85-00-4814Rxytucu encounter procedureNOMS Ford OBGYNComment on above: ArrivedStart: 04-15-2025 End: 74-63-8368Egwdnor encounter procedureNOMS Logan OBGYNComment on above: ArrivedStart: 60-80-7666YFZLI-19 Vaccine ( season)COVID-19 Vaccine ( season)NOMS HealthcareStart: 10-57-8173Mqxiabvsa vaccinationNOAL HealthcareStart: 04-08-2025 End: 87-62-4231Jzadzrjrtbwc / ancillary services zuyjkdxxbw46/28/2025 8:00 AM EDT Ancillary Procedure [facility] [place] [facility] [address] [place] [phone] [facility]BGYNStart: 04-05-2025 End: 88-29-7197Qiwgugd encounter maofndokd91/25/2025 10:20 AM EDT Office Visit [facility] [address] [place] [phone] Abad Canchola DO [address] [place] [address] NOMS BCP OBStart: 03-18-2025 End: 31-86-5175Omcoh fetoprotein, maternalAlpha fetoprotein, maternal Lab Routine 17 weeks gestation of ([facility]) Second trimester ([facility]) Expected: 03/18/2025 (Approximate), Expires: 04/18/2025[facility] Comment on above:Expected: 03/18/2025 (Approximate), Expires: 04/18/2025Start: 03-18-2025 End: 20-71-0679ZO for pregnancyUS OB 14+ weeks anatomy scan Imaging Routine Screening, , for anatomic survey ([facility]) Expected: 03/18/2025, Expires: 06/18/2025[facility] CenterComment on above:Expected: 03/18/2025, Expires: 06/18/2025Start: 03-18-2025 End: 51-85-0235Bsxxhvd encounter twdaqfekf41/07/2025 10:30 AM EDT Routine [facility] [address] [place] [phone] Shagufta Perkins PA [address] [place], [place] [phone] NOMS BCP OBStart: 03-18-2025 End: 03-99-2340Ogvlwopcffpk / ancillary services hhrstseueq23/07/2025 10:00 AM EDT Ancillary Procedure [facility] OB [address] [place] [phone] NOMS BCP OBStart: 07-64-5616Vxfjqnxdl vaccinationFlu vaccine (#1)Huseyin Ennis [facility] HospitalStart: 02-18-2025 End: 34-76-8214Gighzbs encounter igblsxlin82/10/2025 8:40 AM EDT Routine [facility] [address] [place] [address] Abad Canchola, [address] [place] [address] NOMS BCP OBStart: 01-21-2025 End: 16-32-0966UEC/RhABO/Rh Lab Routine Missed menses , unspecified gestational age ([facility]) Expected: 01/21/2025 (Approximate), Expires: 01/21/2026NO[facility] HealthcareComment on above:Expected: 01/21/2025 (Approximate), Expires: 01/21/2026Start: 01-21-2025 End: 84-51-2014lfoswvwrjd42/12/2025 2:00 PM EDT Initial NOM[facility] [address] [place] [address] NOMS BCP OBStart: 01-21-2025 End: 60-43-5114Nihyb type and Indirect antibody screen panel - BloodType and screen Lab Routine Missed menses , unspecified gestational age ([facility]) Expected: 01/21/2025 (Approximate), Expires: 01/21/2026[facility] Work Phone: comment on above:Expected: 01/21/2025 (Approximate), Expires: 01/21/2026Start: 01-21-2025 End: 29-46-9250Pjcmv of abuse panel - Urine by Screen methodRapid drug screen, urine Lab Routine , unspecified gestational age ([facility]) Encounter for supervision of normal first in first trimester ([facility]) Expected: 01/21/2025 (Approximate), Expires: 01/21/2026NOMS HealthcareComment on above: Expected: 01/21/2025 (Approximate), Expires: 01/21/2026Start: 01-21-2025 End: 05-84-1183Ibuxupubnjkx / ancillary services gcuwoydlfb31/12/2025 1:30 PM EDT Ancillary Procedure [facility] OB [address] [place] [address] JAAG BCP OBStart: 12-17-2024 End: 46-13-9068Cjlssnwrbhtw / ancillary services heeocjqaue07/08/2025 8:00 AM EDT Ancillary Procedure [facility] OB [address] [place] [address] UAYX BCP OBStart: 12-01-2024 End: 30-27-3523Tosvkbtilexsb hormone ([facility])Antimullerian hormone ([facility]) Lab Routine Abnormal uterine bleeding (AUB) Endometriosis Expected: 12/01/2024 (Approximate), Expires: 12/01/2025NOMS HealthcareComment on above:Expected: 12/01/2024 (Approximate), Expires: 12/01/2025Start: 12-01-2024 End: 42-36-3586EWVHSOFY Lab Routine PCOS (polycystic ovarian syndrome) Expected: 12/01/2024 (Approximate), Expires: 12/01/2025NOMS HealthcareComment on above: Expected: 12/01/2024 (Approximate), Expires: 12/01/2025Start: 12-01-2024 End: 27-88-1603SI PelvisUS Pelvis w/ TV Imaging Routine PCOS (polycystic ovarian syndrome) Expected: 12/01/2024, Expires: 12/01/2025NOMS HealthcareComment on above:Expected: 12/01/2024, Expires: 12/01/2025Start: 60-12-8908Dzdce BMI ScreeningAdult BMI ScreeningProOhio Valley Surgical Hospitaltart: 80-60-9234Zftyxscfli ScreeningDepression ScreeningCleveland Clinic Union Hospital SystemStart: 93-43-8234Ssysamx ScreeningTobacco ScreeningCleveland Clinic Union Hospital SystemStart: 53-85-9341ZHTZH-19 Vaccine ( season)COVID-19 Vaccine ( season)[facility]useyin [facility] HealthStart: 58-24-5468Txmeyrjpr vaccinationNOAL HealthcareStart: 29-45-9266Ofoth BMI Follow Up PlanAdult BMI Follow Up PlanCleveland Clinic Union Hospital SystemStart: 18-85-8335Ebzsj BMI ScreeningAdult BMI ScreeningCleveland Clinic Union Hospital SystemStart: 06-67-1801Muvuotuwk for Chlamydia trachomatisChlamydia Screening TriHealthComment on above:Postponed from 1999 (Not Indicated)Start: 70-49-2061Ykyzlywiu vaccinationInfluenza VaccineCleveland Clinic Union Hospital SystemStart: 50-93-2510Nikevivxh vaccinationFlu vaccine (Season Ended) WYANDOTStart: 54-25-3125GVxV,Tdap and Td Vaccines (7 - Td or Tdap)DTaP,Tdap and Td Vaccines (7 - Td or Tdap)[facility] SystemStart: 16-19-1442UGoP/Tdap/Td vaccine (1 - Tdap)DTaP/Tdap/Td vaccine (1 - Tdap)W[place]ANDOTStart: 2018 Hepatitis B Vaccines (1 of 3 - 19+ 3-dose series)Hepatitis B Vaccines (1 of 3 - 19+ 3-dose series)[facility] HealthcareStart: 67-39-4482QZK Vaccines (1 - 3-dose series)HPV Vaccines (1 - 3-dose series)[facility] HealthcareStart: 75-64-1350Knitjbc of varicella vaccinationVaricella Vaccines (1 of 2 - 13+ 2-dose series)[facility] HealthcareStart: 62-28-1580KRsY/Tdap/Td Vaccines (1 - Tdap)DTaP/Tdap/Td Vaccines (1 - Tdap)[facility] HealthcareStart: 20-84-6195BVX Vaccines (1 of 1 - Standard series)MMR Vaccines (1 of 1 - Standard series)[facility] HealthcareStart: 03-20-2000 COVID-19 Vaccine (#1)COVID-19 Vaccine (#1)WYANDOTBacteria identified in Urine by CultureUrine culture Microbiology Routine Missed menses Ordered: 01/21/2025[facility] HealthcareComment on above:Ordered: 01/21/2025BC W Auto Differential panel - BloodCBC and differential Lab Routine PCOS (polycystic ovarian syndrome) Ordered: 12/01/2024[facility] HealthcareComment on above:Ordered: 12/01/2024BC W Auto Differential panel - BloodCBC and differential Lab Routine Missed menses , unspecified gestational age ([facility]) Ordered: 01/21/2025[facility] HealthcareComment on above:Ordered: 01/21/2025HLAMYDIA TRACHOMATIS (GENITO/STI) CHLAMYDIA TRACHOMATIS (GENITO/STI) Lab Routine Exposure to STD Ordered: 03/18/2025[facility] HealthcareComment on above:Ordered: 03/18/2025HLAMYDIA TRACHOMATIS (GENITO/STI)CHLAMYDIA TRACHOMATIS (GENITO/STI) Lab Routine Vaginal discharge during , antepartum ([facility]) Ordered: 04/15/2025[facility] HealthcareComment on above:Ordered: 04/15/2025ytology Cervical or vaginal smear or scraping studyPap Smear Pathology and Cytology Routine Second trimester ([facility]) 21 weeks gestation ofpregnancy ([facility]) Ordered: 04/15/2025 [facility] Healthcare Work Phone: comment on above:Ordered: 04/15/2025DHEA-sulfateDHEA- sulfate Lab Routine PCOS (polycystic ovarian syndrome) Ordered: 12/01/2024[facility] HealthcareComment on above:Ordered: 12/01/2024Follicle stimulating hormone Follicle stimulating hormone Lab Routine PCOS (polycystic ovarian syndrome) Ordered: 12/01/2024[facility] HealthcareComment on above:Ordered: 12/01/2024hCG, quantitative, pregnancyhCG, quantitative, Lab Routine PCOS (polycystic ovarian syndrome) Ordered: 12/01/2024[facility] Healthcare Work Phone: comment on above:Ordered: 12/01/2024Hemoglobin A1c/Hemoglobin.total in BloodHemoglobin A1c Lab Routine Abnormal uterine bleeding (AUB) Endometriosis Ordered: 12/01/2024[facility] HealthcareComment on above: Ordered: 12/01/2024Hemoglobin A1c/Hemoglobin.total in BloodHemoglobin A1c Lab Routine Missed menses , unspecified gestational age ([facility]) Ordered: 01/21/2025[facility] HealthcareComment on above:Ordered: 01/21/2025Hepatitis B virus surface Ag [Presence] in Serum or Plasma by ImmunoassayHepatitis B surface antigen Lab Routine Missed menses , unspecified gestational age ([facility]) Ordered: 01/21/2025[facility] HealthcareComment on above:Ordered: 01/21/2025 Hepatitis C virus Ab [Presence] in Serum or Plasma by ImmunoassayHepatitis C antibody Lab Routine Missed menses , unspecified gestational age ([facility]) Ordered: 01/21/2025[facility] HealthcareComment on above:Ordered: 01/21/2025 HIV-1/HIV-2 antigen/antibody combination immunoassayHIV-1 and HIV-2 antibodies Lab Routine Missed menses , unspecified gestational age ([facility]) Ordered: 01/21/2025[facility] HealthcareComment on above:Ordered: 01/21/2025 Luteinizing hormoneLuteinizing hormone Lab Routine PCOS (polycystic ovarian syndrome) Ordered: 12/01/2024[facility] HealthcareComment on above:Ordered: 12/01/2024 Neisseria gonorrhoeae DNA [Presence] in Unspecified specimen by SANJANA with probe detectionNeisseria gonorrhea DNA probe, direct Lab Routine Exposure to STD Ordered: 03/18/2025[facility] HealthcareComment on above:Ordered: 03/18/2025Neisseria gonorrhoeae DNA [Presence] in Unspecified specimen by SANJANA with probe detection Neisseria gonorrhea DNA probe, direct Lab Routine Vaginal discharge during , antepartum ([facility]) Ordered: 04/15/2025[facility] HealthcareComment on above:Ordered: 04/15/2025Protein/Creatinine [Mass Ratio] in Urine Protein:Creatinine Ratio, Urine Lab Routine induced hypertension, antepartum ([facility]) Ordered: 06/21/2025[facility] HealthcareComment on above:Ordered: 06/21/2025 End: [id number] [facility] Phone: Comment on above:Once for 1 Occurrences starting 03/04/2025 until 03/04/2025Reagin Ab [Presence] in Serum by RPRRPR Lab Routine Missed menses , unspecified gestational age ([facility]) Ordered: 01/21/2025[facility] HealthcareComment on above:Ordered: 01/21/2025Rubella antibody, IgGRubella antibody, IgG Lab Routine Missed menses , unspecified gestational age ([facility]) Ordered: 01/21/2025[facility] HealthcareComment on above: Ordered: 01/21/2025SURESWAB(R) ADVANCED VAGINITIS PLUS, TMASURESWAB(R) ADVANCED VAGINITIS PLUS, TMA Pathology and Cytology Routine Vaginal discharge Ordered: 0 03/18/2025[facility] Work Phone: comment on above:Ordered: 03/18/2025SURESWAB(R) ADVANCED VAGINITIS PLUS, TMASURESWAB(R) ADVANCED VAGINITIS PLUS, TMA Pathology and Cytology Routine Vaginal discharge during , antepartum ([facility]) Ordered: 04/15/2025[facility] HealthcareComment on above:Ordered: 04/15/2025 Thyrotropin [Units/volume] in Serum or PlasmaTSH Lab Routine PCOS (polycystic ovarian syndrome) Ordered: 12/01/2024[facility] CenterComment on above:Ordered: 12/01/2024Thyroxine (T4) free [Mass/volume] in Serum or PlasmaT4, free Lab Routine PCOS (polycystic ovarian syndrome) Ordered: 12/01/2024[facility] Comment on above:Ordered: 12/01/2024 Immunizations Immunization DateImmunizationNotesCare JkgageepDajvtvbh14-30-2148hmtkoqznc, injectable, quadrivalent, preservative freeMary Kuns UNDERGROUND CONDUIT INSTALLER-DRY CURE WORKER Work Phone: [facility] TownshipCICCWORLD Harper University HospitalSzsssl78-06-4433boppxwayh virus vaccine, unspecified formulationMary Kuns UNDERGROUND CONDUIT INSTALLER-DRY CURE WORKER Work Phone: [facility]Gemlpq24-56-8207YXIYE-97, mRNA, LNP- S, PF, 100mcg/0.5mL DoseMary Kuns UNDERGROUND CONDUIT INSTALLER-DRY CURE WORKER Work Phone: [facility]HealthSmelqr19-51-5132JCIGQ-61, mRNA, LNP- S, PF, 100mcg/0.5mL DoseAnnel Teresa UNDERGROUND CONDUIT INSTALLER-DRY CURE WORKER Work Phone: [facility]HealthHlesnu04-07-4811qlcuahfau, injectable, quadrivalent, preservative freeAnnel Teresa UNDERGROUND CONDUIT INSTALLER-DRY CURE WORKER Work Phone: [facility]HealthSkqrit69-53-4221aihqfpbis A vaccine, pediatric/adolescent dosage, 2 dose scheduleAnnel Teresa UNDERGROUND CONDUIT INSTALLER-DRY CURE WORKER Work Phone: [facility]07-28-2017Human Papillomavirus 9-valent vaccineAnnel Teresa UNDERGROUND CONDUIT INSTALLER-DRY CURE WORKER Work Phone: [facility]HealthTnaakx71-94-1126blqdudhgiqxef oligosaccharide (groups A, C, Y and W-135) diphtheria toxoid conjugate vaccine (MCV4O)Annel Teresa UNDERGROUND CONDUIT INSTALLER-DRY CURE WORKER Work Phone: [facility]10-30-2012human papilloma virus vaccine, quadrivalentAnnel Teresa UNDERGROUND CONDUIT INSTALLER-DRY CURE WORKER Work Phone: [facility] [employer] Uapavk51-92-7864dsgdmmauuxded polysaccharide (groups A, C, Y and W-135) diphtheria toxoid conjugate vaccine (MCV4P)Annel Teresa UNDERGROUND CONDUIT INSTALLER-DRY CURE WORKER Work Phone: [facility]HealthPyfadr83-67-0421ifhhkurzw virus vaccineAnnel Teresa UNDERGROUND CONDUIT INSTALLER-DRY CURE WORKER Work Phone: [facility]HealthDhqsjw00-92-3754ngoopjahe A vaccine, pediatric/adolescent dosage, 2 dose scheduleAnnel Teresa UNDERGROUND CONDUIT INSTALLER-DRY CURE WORKER Work Phone: [facility]09-12-2012human papilloma virus vaccine, quadrivalentAnnel Teresa UNDERGROUND CONDUIT INSTALLER-DRY CURE WORKER Work Phone: [facility]09-12-2012tetanus toxoid, reduced diphtheria toxoid, and acellular pertussis vaccine, adsorbedAnnel Teresa UNDERGROUND CONDUIT INSTALLER-DRY CURE WORKER Work Phone: [facility]HealthWsbkwi39-74-4692usglohcpwg, tetanus toxoids and acellular pertussis vaccine, unspecified 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 Teresa UNDERGROUND CONDUIT INSTALLER-DRY CURE WORKER Work Phone: [facility]07-07-2005measles, mumps and rubella virus vaccineAnnel Teresa UNDERGROUND CONDUIT INSTALLER-DRY CURE WORKER Work Phone: [facility]HealthAblequ68-84-6037xivpfbzlqy vaccine, inactivatedAnnel Teresa UNDERGROUND CONDUIT INSTALLER-DRY CURE WORKER Work Phone: [facility]HealthBlnimo71-96-3735atbyyvdbcz, tetanus toxoids and acellular pertussis vaccine, unspecified 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 Teresa UNDERGROUND CONDUIT INSTALLER-DRY CURE WORKER Work Phone: [facility]HealthQovulr42-35-3189xpluirkyydw influenzae type b conjugate and Hepatitis B vaccineAnnel Teresa UNDERGROUND CONDUIT INSTALLER-DRY CURE WORKER Work Phone: [facility]04-26-2001measles, mumps and rubella virus vaccineAnnel Teresa UNDERGROUND CONDUIT INSTALLER-DRY CURE WORKER Work Phone: [facility]Rdshic21-16-3214dnwazmclxo vaccine, inactivatedAnnel Teresa UNDERGROUND CONDUIT INSTALLER-DRY CURE WORKER Work Phone: [facility]HealthJdyvqj09-57-0907qclagnphe virus vaccineAnnel Teresa UNDERGROUND CONDUIT INSTALLER-DRY CURE WORKER Work Phone: [facility]HealthVwwsfj21-72-7222hqtzrfyhmo, tetanus toxoids and acellular pertussis vaccine, unspecified 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 Teresa UNDERGROUND CONDUIT INSTALLER-DRY CURE WORKER Work Phone: [facility]HealthOotrqt36-51-4186ejjawnwbzqx influenzae type b vaccine, PRP-OMP conjugateAnnel Teresa UNDERGROUND CONDUIT INSTALLER-DRY CURE WORKER Work Phone: [facility]HealthStxxie13-15-4329gulyorwlgu, tetanus toxoids and acellular pertussis vaccine, unspecified 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 Teresa UNDERGROUND CONDUIT INSTALLER-DRY CURE WORKER Work Phone: [facility]HealthDbejan12-41-6659shxwrlygztc influenzae type b conjugate and Hepatitis B vaccineAnnel Teresa UNDERGROUND CONDUIT INSTALLER-DRY CURE WORKER Work Phone: [facility]HealthLaodju71-03-2716ftvlozbmba vaccine, inactivatedAnnel Teresa UNDERGROUND CONDUIT INSTALLER-DRY CURE WORKER Work Phone: [facility]HealthHscyps41-97-6305vrulymfwsm, tetanus toxoids and acellular pertussis vaccine, unspecified 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 Teresa UNDERGROUND CONDUIT INSTALLER-DRY CURE WORKER Work Phone: [facility]HealthNkpwjh73-12-5594fgtisgxilfy influenzae type b conjugate and Hepatitis B vaccineAnnel Teresa UNDERGROUND CONDUIT INSTALLER-DRY CURE WORKER Work Phone: [facility]HealthCilbwx87-79-3443svxtlnvyhm vaccine, inactivatedAnnel Teresa UNDERGROUND CONDUIT INSTALLER-DRY CURE WORKER Work Phone: [facility] Payers DatePayer CategoryPayerPolicy [id number] [employer] Shield [id number] [id number] Health [id number] [id number] 1.2.840.746688.1.13.239.2.7.3.165146. Medicaid1.2.840.599966.1.13.693.2.7.3.527969.23233-72-5590Tqxiomw Health Insurance1.2.840.198380.1.13.693.2.7.9.562588.666181.98336-09-5622Okcajlq 1.2.840.844090.1.13.693.2.7.3.710[id number] 2.16.840.1.182575.3.57[id number] 2.16.840.1.088944.3.57[id number] 2.16.840.1.423031.3.57[id number] 2.16.840.1.956427.3.57[id number] 2.16.840.1.019979.3.57[id number] 2.16.840.1.263455.3.57[id number] 2.16840.1.116997.3.57[id number] 2.16.840.1.395475.3.57[id number] 2.16.840.1.124573.3.57[id number] 2.16.840.1.313086.3.57[id number] 2.16.840.1.365287.3.57[id number] 2.16.840.1.154563.3.57[id number] 2.16.840.1.392012.3.57[id number] 2.16.840.1.387204.3.57[id number] 2.16.840.1.493349.3.57[id number] 2.16.840.1.571590.3.57[id number] 2.16.840.1.744786.3.57[id number] 2.16.840.1.727110.3.57[id number] 2.16.840.1.123516.3.579.2.142848-71-0849Hchjhjs Health [id number] [id number] TlkyoeqszJLV4244 03o57qdp-[id number] Social History DateTypeDetailFacilityTobacco smoking status NHISTobacco smoking consumption unknownWYANDOT Work Phone: start: 94-12-8281Riw Assigned At BirthNot on file [facility] Work Phone: start: 03-03-2023 End: 35-82-5378Hodehfc smoking status NHISNever smoked tobacco (finding) [facility]: 55-78-5123Yws Assigned At BirthFemale [facility]tart: 03-25-2024 End: 15-49-1962Xctldwyqe beverage intakeLifetime non-drinker (finding)[facility] HealthcareStart: 03-25-2024 End: 72-70-4904Apgtfgk of Social functionProMediOhioHealth [facility] Hospital SystemStart: 03-25-2024 End: 56-93-3865Llkkpgs use panelProMer[facility] SystemStart: 25-10-8618Tbuqwxk use and exposureSmokeless tobacco non-userProMercy Health [facility] SystemStart: 52-47-4498Jnfjgmb intakeEx-drinker (finding)[facility] SystemStart: 51-55-0871Vyt hard is it for you to pay for the very basics like food, housing, medical care, and heatingNot hard at [facility] Medical CenterMoolta SystemStart: 05-04-2022 Gender identityIdentifies as female gender (finding)[facility] Start: 18-27-6696QyajvirwcVAABVanderbilt Transplant CenterStart: 30-55-1498MpxLucdoz (finding)[facility] Clinical Notes 06-30-2021 to 06-21-2025 Note Date & ZyosFmgbLgaveapj11-09-5538 History of Present illness Narrative* Cecilia Khan, [employer] - 06/21/2025 3:40 PM EST Reason for [...] nursing note reviewed. Exam conducted with a health care liaison present. Vitals: Estimated body mass index is 35.19 kg/m as calculated from the following: Height as of 09/24/19: 5' 6 . Weight as of this encounter: 218 lb. BP: Patient's last menstrual period was 11/19/2024 (approximate). Assessment/Plan ICD-10-CM 1. 28 weeks gestation of ([facility]) Z3A.28 POCT urinalysis dipstick manually resulted 2. Third trimester ([facility]) Z34.93 POCT urinalysis dipstick manually resulted 3. induced hypertension, antepartum ([facility]) O13.9 Creatinine Protein, urine, 24 hour [...] of: Abad Canchola DO documented in this encounterMid [facility] Mental Health CenterEcxcbwqsti87-05-1817 History of Present illness Narrative* DOMINGUEZ Villagran [...] nursing note reviewed. Exam conducted with a health care liaison present. Vitals: Estimated body mass index is 34.4 kg/m as calculated from the following: Height as of 09/24/19: 5' 6 . Weight as of this encounter: 213 lb 1.9 oz. BP: 124/82 Patient's last menstrual period was 11/19/2024 (approximate). Assessment/Plan ICD-10-CM 1. 28 weeks gestation of ([facility]) Z3A.28 POCT urinalysis dipstick manually resulted 2. Second trimester ([facility]) Z34.92 POCT urinalysis dipstick manually resulted [...] behalf of: DOMINGUEZ Villagran documented in this encounterMid Missouri Mental Health CenterZujqpbxqrz40-70-4937 History of Present illness Narrative* Say Roy NP - 05/12/2025 8:30 AM EDT [...] nursing note reviewed. Exam conducted with a health care liaison present. Vitals: Estimated body mass index is 33.25 kg/m as calculated from the following: Height as of 09/24/19: 5' 6 . Weight as of 04/15/25: 206 lb. BP: Patient's last menstrual period was 11/19/2024 (approximate). ASSESSMENT & PLAN ICD-10-CM 1. 24 weeks gestation of ([facility]) Z3A.24 POCT urinalysis dipstick manually resulted 2. Second trimester ([facility]) Z34.92 3. Diabetes mellitus screening Z13.1 [...] for routine OB appointment. Documented by Cris Gorss MA on behalf of: Say Roy NP documented in this encounterMid Missouri Mental Health CenterBjscvpmakd61-70-2714 History of Present illness Narrative* Chelsie Arango [...] nursing note reviewed. Exam conducted with a health care liaison present. Vitals: Estimated body mass index is 33.25 kg/m as calculated from the following: Height as of 09/24/19: 5' 6 . Weight as of this encounter: 206 lb. BP: 116/72 Patient's last menstrual period was 11/19/2024 (approximate). ASSESSMENT & PLAN ICD-10-CM 1. Second trimester ([facility]) Z34.92 Pap Smear 2. 21 weeks gestation of ([facility]) Z3A.21 Pap Smear 3. Nausea and vomiting during ([facility]) O21.9 metoclopramide (Reglan) 10 MG tablet 4. Vaginal discharge during , antepartum ([facility]) O26.899 N89.8 Return OB/Annual Exam: Patient [...] of: Abad Canchola DO documented in this encounterMid Missouri Mental Health CenterAsfoxgqair20-18-1457 History of Present illness Narrative* DOMINGUEZ Villagran - 03/18/2025 10:30 AM EDT Reason for [...] ICD-10-CM 1. 17 weeks gestation of ([facility]) Z3A.17 POCT urinalysis dipstick manually resulted Alpha fetoprotein, maternal Alpha fetoprotein, maternal 2. Second trimester ([facility]) Z34.92 POCT urinalysis dipstick manually resulted Alpha fetoprotein, maternal Alpha fetoprotein, maternal 3. Subchorionic hematoma in first trimester, single or unspecified fetus ([facility]) O41.8X10 O46.8X1 4. Screening, , for anatomic survey ([facility]) Z36.89 US OB 14+ weeks anatomy [...] behalf of: DOMINGUEZ Villagran documented in this encounterMid Missouri Mental Health CenterPotghuhzra76-65-2981 Note ADDENDUM #1 Current examination demonstrated an [...] Delivery: 08/26/25 Gestational Age as of 03/18/2025: 73r5d20-29-0642 History of Present illness Narrative* Chelsie Arango [...] nursing note reviewed. Exam conducted with a health care liaison present. Vitals: Estimated body mass index is 33.25 kg/m as calculated from the following: Height as of 09/24/19: 5' 6 . Weight as of this encounter: 206 lb. BP: 124/76 Patient's last menstrual period was 11/19/2024 (approximate). ASSESSMENT & PLAN ICD-10-CM 1. Second trimester ([facility]) Z34.92 POCT urinalysis dipstick manually resulted 2. 13 weeks gestation of ([facility]) Z3A.13 New OB: Patient presents today [...] or undercooked meat, and stay away from [facility]. Patient has been consulted regarding any [...] of: Abad Canchola DO documented in this encounterMid Missouri Mental Health CenterQvgappkvyk50-57-9733 History of Present illness Narrative* Cris Gross [...] dipstick manually resulted , unspecified gestational age ([facility]) - Type and screen; Future - ABO/Rh; Future - CBC and differential - Hemoglobin A1c - RPR - Rubella antibody, IgG - Hepatitis B surface antigen - Hepatitis C antibody - HIV-1 and HIV-2 antibodies - Rapid drug screen, urine; Future Encounter for supervision of normal first in first trimester [facility] - Rapid drug screen, urine; Future Nurse Note: Pt unsure of doing the [place] billion to one lab. Advised if patient changes mind to make sure both labs and [place] done at the same time. PVU. OB [...] or undercooked meat, and stay away from [facility]. Patient has also been advised to [...] by: Cris Gross MA documented in this encounterMid Missouri Mental Health CenterAlzexdipxa76-27-7979 History of Present illness Narrative* Say Roy [...] nursing note reviewed. Exam conducted with a health care liaison present. Vitals: Estimated body mass index is [...] of: Say Roy NP documented in this encounterMid Missouri Mental Health CenterRlaibiswpy14-36-7185 History of Present illness Narrative* Misa Knight [...] nursing note reviewed. Exam conducted with a health care liaison present. Vitals: Estimated body mass index is [...] of: Abad Canchola DO documented in this encounterKyle V[place] [address]Vldsmvfvoh85-93-1229 Miscellaneous Notes* Telephone Encounter - Lisa Tijerina - 12/03/2023 8:07 AM EDT ----- Message from YASMINE Singh sent at 03/05/2023 5:31 PM EDT ----- Regarding: wellness exam Due December of - Annel * Telephone Encounter - Lisa Tijerina - 12/03/2023 8:07 AM EDT Patient is switching pcp [facility] encounter[facility]04-[facility] Telephone encounter Note* Telephone Encounter - Lisa Tijerina - 12/03/2023 8:07 AM EDT ----- Message from YASMINE Singh sent at 03/05/2023 5:31 PM EDT ----- Regarding: wellness exam Due December of - Annel [facility]04-23-2024 Telephone encounter Note* Telephone Encounter - Lsia Tijerina - 12/03/2023 8:07 AM EDT Patient is switching pcp [facility]12-22-2023 History of Present illness Narrative* TinyYASMINE Valencia - 08/02/2023 11:40 AM EST Subjective Patient [...] YASMINE Singh 08/02/23 1251 documented in this encounterTriHealth11-19-2021 NoteThe [place], [place] NAME: MEREDITH ANTONIO DATE OF : MEDICAL REC#: [id number] SHOVEL MECHANIC: 1406 NIKOLAS BATISTAADMIGOR DATE: 06/30/2021 09:48:00 CIGAR SORTER DATE: 06/30/2021 20:15 DICTATING PHYSICIAN: ABAD CANCHOLA DICTATION DATE: 06/30/2021 12:00 OPERATIVE NOTE OPERATION DATE: 06/30/2021 PROCEDURE NAME: Diagnostic laparoscopy. PREOPERATIVE DIAGNOSES: 1. Pelvic pain. 2. Menorrhagia. 3. Dysmenorrhea. POSTOPERATIVE DIAGNOSES: 1. Pelvic pain. 2. Menorrhagia. 3. Dysmenorrhea. 4. Endometriosis posterior cul-de-sac. ANESTHESIA: General. SURGEON: Abad Canchola DO [employer]: CECILIO Mendoza URINE OUTPUT: Yellow and clear. [...] Abad Canchola DO on 07/03/2021 09:18 AM [facility] Signed and Approved by: DR ABAD CANCHOLA . 07/03/2021 09:18:00[facility]No assessment information available[facility] Work Phone: Evaluation note* Diagnosis Onset Date Resolution Status Anxiety and depression acute [facility] Work Phone: Evaluation note* Diagnosis Acute non-recurrent maxillary sinusitis- Primary Non-recurrent acute serous otitis media of both ears Elevated blood pressure reading Elevated blood pressure reading without diagnosis of hypertension documented in this encounter [facility] SystemEvaluation [facility]* Diagnosis Female infertility Female infertility of unspecified origin PCOS (polycystic ovarian syndrome) Polycystic ovaries Abnormal uterine bleeding (AUB) Endometriosis Endometriosis, site unspecified Insulin resistance Other abnormal glucose documented in this encounter [facility]* Diagnosis Amenorrhea Absence of menstruation Missed menses , unspecified gestational age ([facility]) Encounter for supervision of normal first in first trimester ([facility]) documented in this encounter [facility]Evaluation [facility]* Diagnosis Nausea and vomiting during - Primary Currently in first trimester with unknown gestational age Constipation, unspecified constipation type documented in this encounter [facility]* Diagnosis Second trimester ([facility]) state, incidental 13 weeks gestation of ([facility]) documented in this encounter [facility] note* Diagnosis 17 weeks gestation of ([facility]) Second trimester ([facility]) state, incidental Subchorionic hematoma in first trimester, single or unspecified fetus ([facility]) Screening, , for anatomic survey ([facility]) Encounter for anatomic survey Exposure to STD Vaginal discharge Leukorrhea, not specified as infective documented in this encounter [facility]* Diagnosis Second trimester ([facility]) state, incidental 21 weeks gestation of ([facility]) Nausea and vomiting during ([facility]) Vaginal discharge during , antepartum ([facility]) documented in this encounter [facility]* Diagnosis 24 weeks gestation of ([facility]) Second trimester ([facility]) state, incidental Diabetes mellitus screening Screening for diabetes mellitus documented in this encounter [facility]* Diagnosis size inconsistent with dates ([facility])- Primary 28 weeks gestation of ([facility]) Second trimester ([facility]) state, incidental documented in this encounter [facility]* Diagnosis 28 weeks gestation of ([facility]) Third trimester ([facility]) state, incidental induced hypertension, antepartum ([facility]) Transient hypertension of , antepartum documented in this encounter [facility] HealthcareInstructionsNot on filedocumented in this encounterProMediOhioHealth [facility] SystemInstructionsNot on filedocumented in this encounterProMercy [facility] Summary Purpose Family History No Family History Records Found Relationship Condition Age at Onset Recorded Date/T terra Not Specified Malignant neoplasm Unknown Not SpecifiedHeart diseaseUnknownMyocardial infarctionUnknownfatherHypertension UnknownCerebrovascular accident (CVA)Unknown Relationship Condition Age at Onset Recorded Date/T terra paternal grandfather Malignant neoplasm Unknown paternal grandmotherHeart diseaseUnknownMyocardial infarctionUnknownfather HypertensionUnknownCerebrovascular accident (CVA)Unknown Advance Directives No Advanced Directives Records Found Advance Directive Response Recorded Date/ Time Advance Directives No November 24 024 9:39am Chief Complaint and Reason for Visit Chief Complaint Establish Chief Complaint Establish discuss weight loss medicationReason for VisitAnxiety and depression Additional Source Comments INFORMATION SOURCE (unrecogn ized section and content) DATE CREATED AUTHOR 06/13/2022 [facility] DATE CREATED AUTHOR AUTHOR'S ORGANIZ ATION 08/09/2023 [facility] DATE CREATED AUTHOR AUTHOR'S ORGANIZ ATION 03/07/2025 [facility] DATE CREATED AUTHOR AUTHOR'S ORGANIZ ATION 06/24/2025 [facility] EPIC Care Teams (unrecognized sec tion and content) Team MemberRelationshipSpecialtyStart DateEnd Date Annel Teresa, UNDERGROUND CONDUIT INSTALLER - FOLDING MACHINE SETTER [address] [place] [address] [facility]23 Team Status: Active Member Role Status [...] DateEnd Date Michelle Pabon MD [address] [place] [id number] PCP - Generalmily Medicine03/25/24Team MemberRelationshipSpecialtyStart DateEnd Date Annel Teresa APRN-DRY CURE WORKER [address] [facility] [address] PCP - GeneralFamily Medicine01/18/20Team MemberRelationshipSpecialtyStart DateEnd Date Michelle Pabon MD [address] [facility] [place] [address] PCP - GeneralFamily Medicine03/25/24Team MemberRelationshipSpecialtyStart DateEnd Date Michelle Pabon MD [address] [facility] [place] [address] PCP - GeneralFamily Medicine03/25/24Team MemberRelationshipSpecialtyStart DateEnd Date Michelle Pabon MD [address] [facility] [place] [address] PCP - GeneralFamily Medicine03/25/24Team MemberRelationshipSpecialtyStart DateEnd Date Michelle Pabon MD [address] [facility] [place] [address] PCP - GeneralFamily Medicine03/25/24Team MemberRelationshipSpecialtyStart DateEnd Date Michelle Pabon MD [address] [facility] [place] [address] PCP - GeneralFamily Medicine03/25/24Team MemberRelationshipSpecialtyStart DateEnd Date Michelle Pabon MD [address] [facility] [place] [address] PCP - GeneralFamily Medicine03/25/24Team MemberRelationshipSpecialtyStart DateEnd Date Michelle Pabon MD [address] [facility] [place] [address] PCP - GeneralFamily Medicine03/25/24Team MemberRelationshipSpecialtyStart DateEnd Date Michelle Pabon MD [address] [facility] [place] [address] PCP - GeneralFamily Medicine03/25/24Team MemberRelationshipSpecialtyStart DateEnd Date Michelle Pabon MD [address] [facility] [place] [address] PCP - GeneralFamily Medicine03/25/24Team MemberRelationshipSpecialtyStart DateEnd Date Annel Teresa APRN - [facility] [address] [place] [address] PCP - GeneralNurse Practitioner01/10/23Team MemberRelationshipSpecialtyStart Date End Date Michelle Pabon MD [address] [facility] [place] [address] PCP - GeneralFamily Medicine03/25/24Team MemberRelationshipSpecialtyStart DateEnd Date Michelle Pabon MD [address] [facility] [place] [address] PCP - GeneralFamily Medicine03/25/24Team MemberRelationshipSpecialtyStart DateEnd Date Michelle Pabon MD [address] [facility] [place] [address] PCP - GeneralFamily Medicine03/25/24Team MemberRelationshipSpecialtyStart DateEnd Date Michelle Pabon MD [address] [facility] [place] [phone] PCP - [facility]03/25/24Team MemberRelationshipSpecialtyStart DateEnd Date Michelle Pabon MD [address] [facility] [place] [address] PCP - [facility]03/25/24Te MemberRelationshipSpecialtyStart DateEnd Date Michelle Pabon MD [address] [facility] [place] [address] PCP - [facility]03/25/24Te MemberRelationshipSpecialtyStart DateEnd Date Michelle Pabon MD [address] [facility] [place] [address] PCP - [facility]03/25/24 Goals (unrecognized section and content) Goals may [...] BE BASED ON THE PRIMARY CLINICAL RECORDS. [facility]. provides no warranty or guarantee of the accuracy or completeness of information in this document.
[2025-06-28 16:16] VITALS: BP 150/94; PULSE 93
[2025-06-28 16:31] VITALS: BP 144/92; PULSE 89
[2025-06-28 16:46] VITALS: BP 144/95; PULSE 85
[2025-06-28] MEDS: LABETALOL HCL 100 MG TABLET 200 MG PO (16:55)
[2025-06-28] MEDS: BETAMETHASONE ACE/BETAMETHASONE SOD PHOS 30 MG/5 ML 12 MG IM (17:01)
[2025-06-28 17:23] VITALS: BP 140/87; PULSE 84
[2025-06-28 17:53] VITALS: BP 137/91; PULSE 80
== END 2025-06-28 18:04 | disposition home or self-care (01) ==
PROVIDERS: Admitting Provider Obstetrics & Gynecology; PCP Family Medicine; Visit Provider Obstetrics & Gynecology
DX: O16.3 Unspecified maternal hypertension, third trimester (principal); Z3A.31 31 weeks gestation of pregnancy
CPT/HCPCS: 76818; 96372; G0378; G0379; J0702

== ENCOUNTER 2025-06-29 17:12 | Outpatient (OUT) | payer OTHER, SELFPAY ==
[2025-06-29 17:15] VITALS: BP 137/87; PULSE 96; TEMP 36.8; O2SAT 98
--- OUTSIDE RECORDS SUMMARY | 2025-06-29 17:16 | XMS_ITS | CCD ---
Author Organization [facility] Care Team Providers Care Call Center Recruiter Name Role Phone JESIKA, DR CALVIN Primary Care Unavailable JESIKA, DR CALVIN Admitting Unavailable JESIKA, DR CALVIN Attending Unavailable JESIKA, DR CALVIN Primary Care Unavailable JESIKA, DR CALVIN Admitting Unavailable JESIKA, DR CALVIN Attending Unavailable JESIKA, DR CALVIN Consulting Unavailable LONGCANDE Consulting Unavailable EJSIKA, DR CALVIN Consulting Unavailable FURLONG, DR МАРИЯ Olivares Primary Care Unavailable JSEIKA, DR CALVIN Admitting Unavailable JESIKA, DR CALVIN Attending Unavailable JESIKA, DR CALVIN Consulting Unavailable JESIKA, DR CALVIN Admitting Unavailable FURLONG, DR МАРИЯ Olivares Primary Care Unavailable JESIKA, DR CALVIN Attending Unavailable Malick SPINNING MACHINE OPERATOR - SUPERVISOR [employer]IP MAINTENANCE SERVICES, Annel Concha Primary Care Provider [phone] ANNEL TERESA Referring Unavailable MALICK, ANNEL Concha Primary Care Unavailable Michelle Pabon MD Primary Care Provider [phone] Malick SPINNING MACHINE OPERATOR-SPECIAL TESTER, Annel Heath Primary Care Provider Unavailable Primary Care Provider Michelle Hernandez MD Primary Care Provider Michelle Pabon MD Primary Care Provider Malick APARICIO - SUPERVISOR SHIP MAINTENANCE SERVICES, Annel Concha Primary Care Provider RAFAEL LARA Referring Unavailable MALICK, ANNEL Kern Primary Care Unavailable Cm LAUGHLIN, Michelle Primary Care Provider [phone] ABAD CANCHOLA Attending Unavailable SAY ROY Attending Unavailable ABAD CANCHOLA Attending Unavailable SHAGUFTA PERKINS Attending Unavailable GREGORIO SHAGUFTA Referring Unavailable ABAD CANCHOLA Attending Unavailable SAY ROY Attending Unavailable GREGORIO, SHAGUFTA Attending Unavailable SAY ROY Referring Unavailable ABAD CANCHOLA Attending Unavailable Medications Current Medications MedicationDrug Class(es)DatesSig (Normalized)Sig (Original)amoxicillin 875 mg / clavulanate 125 mg oral tablet (1 source)Penicillin-class AntibacterialStart: 08-02-2023 End: 80-80-8749udao 1 tablet by mouth once in the morningamoxicillin-pot clavulanate (AUGMENTIN) 875-125 mg per tablet Take 1 tablet by mouth in the morningand 1 tablet before bedtime. Do all this for 7 days. 14 tablet 0 08/02/2023 08/09/2023 Activedocusate sodium 100 mg oral capsule (4 sources)Start: 01-13-2025 End: 35-95-0419uqxz 1 capsule by mouth in the morningdocusate sodium (Colace) 100 MG capsule Indications: Constipation, unspecified constipation type Take 1 capsule (100 mg) by mouth in the morning and 1 capsule (100 mg) before bedtime. Do all this for10 days. 20 capsule 01/13/2025 01/23/2025 Activeloratadine 10 mg oral tablet (6 sources) End: 27-97-8357psxt 1 tablet by mouth once dailyloratadine (Claritin) 10 MG tablet Take 10 mg by mouth Daily 01/13/2025 Discontinuedlosartan potassium 25 mg oral tablet (5 sources)Angiotensin 2 Receptor BlockerStart: 02-28-2024 End: 99-84-8401xkxr 25 mg by mouth once dailyLosartan Active 25 MG PO Daily February 28, 2024 12:00ammetFORMIN hydrochloride 500 mg oral tablet (6 sources)BiguanideStart: 12-01-2024 End: 61-83-6240hlgi 1 tablet by mouth at mealtimemetFORMIN (Glucophage) 500 MG tablet Indications: PCOS (polycystic ovarian syndrome) , Insulin resistance Take 1 tablet (500 mg) by mouth in the morning. Take with meals. 30 tablet 11 12/01/2024 01/13/2025 Discontinuedmetoclopramide 10 mg oral tablet (20 sources)Dopamine-2 Receptor AntagonistStart: 04-15-2025 End: 19-09-0072xboxybkkamrmmi (Reglan) 10 MG tablet Indications: Nausea and vomiting during (HHS-HCC) Take 1 tablet (10 mg) by mouth in the morning and 1 tablet (10 mg) at noon and 1 tablet (10 mg) in theevening. Take before meals. Take 1 tablet by mouth 30 minutes prior to meals 3 times daily as needed for nausea. 90 tablet 1 04/15/2025 ActiveStart: 01-13-2025 End: 89-79-2987ekkllMOIGPQGU 0.0075 mg/mg vaginal gel (3 sources)Nitroimidazole AntimicrobialStart: 05-10-2025 End: 48-81-8137wzfpfMUGYUPQL (Metrogel) 0.75 % vaginal gel Indications: BV (bacterial vaginosis) Insert into the vagina Daily for 5 days 70 g 05/10/2025 05/15/2025 ActiveMultiple Vitamin (multivitamin) tablet (6 sources) End: 00-14-7894iydl 1 tablet by mouth once dailyMultiple Vitamin (multivitamin) tablet Take 1 tablet by mouth Daily 01/13/2025 Discontinuedtake 1 tablet by mouth once dailyMultiple Vitamin (multivitamin) tablet Take 1 tablet by mouth Daily Qerybx70 hr NIFEdipine 30 mg extended release oral tablet (7 sources)Dihydropyridine Calcium Channel BlockerStart: 77-62-2513ukhu 1 tablet by mouth once daily, then take 1 tablet by mouth every twenty-four hours NIFEdipine CC (Adalat CC) 30 MG 24 hr tablet Take 30 mg by mouth Daily 10/20/2024 Activeondansetron 4 mg disintegrating oral tablet (20 sources)Serotonin-3 Receptor AntagonistStart: 83-27-9954ffye 1 tablet by mouth every eight hours as needed for nauseaondansetron ODT (Zofran-ODT) 4 MG disintegrating tablet Take 4 mg by mouth every 8 (eight) hours ifneeded for nausea 02/22/2025 ActiveStart: 01-11-2025 End: 22-81-1506wgul 1 tablet by mouth every six hours for nauseaondansetron ODT (Zofran-ODT) 4 MG disintegrating tablet Indications: Nausea and vomiting during ([facility]) Take 1 tablet (4 mg) by mouth every 6 (six) hours if needed for nausea or vomiting 30 tablet 2 01/11/2025 02/10/2025 Activephentermine hydrochloride 37.5 mg oral tablet (3 sources)Sympathomimetic Amine AnorecticStart: 01-09-2023 End: 67-35-3174vxxd 33-33.9 tablets by mouth once daily before breakfast phentermine (ADIPEX-P) 37.5 mg tablet Indications: Class 1 obesity due to excess calories without serious comorbidity with body mass index (BMI) of 33.0 to 33.9 in adult Take 1 tablet (37.5 mg total)by mouth every morning before breakfast. 30 tablet 0 03/05/2023 08/02/2023 Discontinued (Therapy completed)predniSONE 20 mg oral tablet (1 source)Start: 08-02-2023 End: 31-13-1868fquy 1 tablet by mouth at mealtimepredniSONE (DELTASONE) 20 mg tablet Take 1 tablet (20 mg total) by mouth in the morning for 7 days.Take with food. 7 tablet 0 08/02/2023 08/09/2023 ActivePrenatal 27-1 MG tablet (20 sources)take 1 tablet by mouth once dailyPrenatal 27-1 MG tablet Take 1 tablet by mouth Daily ActiveSemaglutide (Weight Loss) (1 source)Start: 01-84-0908Hojmntkpsqs (Weight Loss) (Wegovy) 0.25 mg/0.5 mL pen injector Active 0.25 MG SUBCUT every week February 28, 2024 12:00am administer weeks 1 through 4 of therapy Completed/Discontinued Medications MedicationDrug Class(es)DatesSig (Normalized)Sig (Original)24 hr buPROPion hydrochloride 150 mg extended release oral tablet (10 sources)AminoketoneStart: 03-06-2024 End: 86-32-7337ymjz 1 tablet by mouth every twenty-four hours in the morning buPROPion XL (Wellbutrin XL) 150 MG 24 hr tablet Take 150 mg by mouth in the morning. 03/06/2024 12/01/2024 DiscontinuedStart: 12-05-2023 End: 75-81-6285kmgd 150 mg by mouth once daily in the morningBupropion Hcl Active 150 MG PO Every morning January 07, 2024 12:59pm End: 27-11-4219rpGDAQsoa SR (Wellbutrin SR) 150 MG 12 hr tablet 12/01/2024 DiscontinuedDULoxetine 60 mg delayed release oral capsule (12 sources)Serotonin and Norepinephrine Reuptake InhibitorStart: 12-05-2023 End: 85-35-7165skhm 1 capsule by mouth once dailyDuloxetine (Cymbalta) 30 mg capsule,delayed release(DR/EC) Discontinued 30 MG PO Daily 14 14 December 05, 2023 12:00am December 18, 2023 1:01pmStart: 01-09-2023 End: 49-85-1909yyzu 1 capsule by mouth once dailyDuloxetine (Cymbalta) 60 mg capsule,delayed release(DR/EC) Discontinued 60 MG PO Daily December 05, 2023 12:00am December 05, 2023 4:15pmethinyl estradiol 0.035 mg / norgestimate 0.25 mg oral tablet (8 sources)Progestin, EstrogenStart: 01-16-2024 End: 59-04-0768cvkuotfqfzcm-ethinyl estradiol (Ortho-Cyclen) 0.25-35 MG-MCG tablet Indications: Encounter for surveillance of contraceptive pills Take 1 tablet by mouth Daily 84 tablet 3 01/16/2024 12/01/2024 DiscontinuedStart: 93-67-4933creg 1 tablet by mouth once dailyNorgestimate-Ethinyl Estradiol Active 1 TAB PO Daily December 05, 2023 12:00amStart: 99-30-5909ylns 1 tablet by mouth once in the morningnorgestimate-ethinyl estradioL (ORTHO-CYCLEN) 0.25-35 mg-mcg per tablet Take 1 tablet by mouth in the morning. 12/18/2022 ActiveStart: 47-60-8316gozx 1 tablet by mouth once in the morningnorgestimate-ethinyl estradioL (ORTHO-CYCLEN) 0.25-35 mg-mcg per tablet Take 1 tablet by mouth in the morning. 0 12/18/2022 Mmwmvl46 hr loratadine 10 mg / pseudoephedrine sulfate 240 mg extended release oral tablet (5 sources)alpha-Adrenergic AgonistStart: 08-02-2023 End: 76-22-7848syge 10-240 mg by mouth every twenty-four hours in the morning Loratadine-D 24HR 10-240 MG 24 hr tablet Take 1 tablet by mouth in the morning. 08/02/2023 12/01/2024 DiscontinuedStart: 08-02-2023 End: 25-99-0990clat 1 tablet by mouth once in the [...] unspecified; Translations: [Mixed anxiety and depressive disorder]Onset: 450241-07-6710NtaxwkrIrfwaabjrbwsv (5 sources)Endometriosis of pelvic peritoneum; Translations: [Endometriosis (clinical)]Onset: 387860-82-3990LxxgdcfFqkril infertility (2 sources)Female infertility; Translations: [Female infertility, unspecified] 10-53-9799PtsvogqUzcqbsmskmuf complicating ; childbirth and the puerperium (2 sources)-induced hypertension; Translations: [Gestational [-induced] hypertension withoutsignificant proteinuria, unspecified trimester]79-12-3970VfirbjlzPjbpiohikyvzt and screening for infectious disease (3 sources)Encounter for screening for human papillomavirus (HPV); Translations: [Exposure to sexually transmissible disorder]Onset: 447024-43-3369Fbigwlgu Menstrual disorders (7 sources)Excessive and frequent menstruation with regular cycle; Translations: [Dysmenorrhea, unspecified]Onset: 10-22-2186MgyypcnFusf disorders (2 sources)Major depression in full remission; Translations: [Major depressive disorder, single episode, in full remission]Onset: hronic Other complications of (4 sources)Vomiting of , unspecified; Translations: [Unspecified vomiting of , unspecified as to episode of care or not applicable] 55-91-4442XcuncjtoAhxac complications of (2 sources) size does not accord with dates; Translations: [Uterine size- date discrepancy, unspecified trimester]91-87-5717BjpwwosbBlpjf endocrine disorders (2 sources)Polycystic ovary syndrome; Translations: [Polycystic ovarian syndrome]68-02-8392XvasxxfRedej female genital disorders (1 source)Unspecified dyspareunia; Translations: [UNSPECIFIED DYSPAREUNIA]Onset: 11-41-5094ZzmiiluGcjnw female genital disorders (1 source)Abnormal uterine and vaginal bleeding, unspecified; Translations: [ABNORMAL UTERINE VAGINAL BLEED UNS]Onset: 28-38-2196JywluorQoxyk female genital disorders (2 sources)Abnormal uterine bleeding; Translations: [Abnormal uterine and vaginal bleeding, unspecified]28-46-1463QvotjafLjfkk female genital disorders (4 sources)Vaginal discharge; Translations: [Other specified noninflammatory disorders of vagina]50-17-5156SacgjthnNenhd gastrointestinal disorders (2 sources)Constipation; Translations: [Constipation, unspecified]01-13-2025 EpisodicOther nutritional; endocrine; and metabolic disorders (1 source)Obesity, unspecified; Translations: [OBESITY UNSPECIFIED]Onset: 44-02-8521BquhxbzRgojj nutritional; endocrine; and metabolic disorders (2 sources)Insulin resistance; Translations: [Insulin resistance]12-01-2024 ChronicOther and delivery including normal (16 sources); Translations: [Encounter for supervision of normal , unspecified, unspecified trimester]94-35-3432HksawiikJkdjr screening for suspected conditions (not mental disorders or infectious disease) (8 sources)Encounter for screening for malignant neoplasm of cervix; Translations: [Patient encounter status]Onset: 00-99-3975XwglatwdUlkandwjjtwabn and other problems of amniotic cavity (2 sources)Subchorionic hematoma; Translations: [Other specified disorders of amniotic fluid and membranes, first trimester, not applicable or unspecified] 19-07-1541UilhshbdOsntbjht codes; unclassified (2 sources)Gestation period, 13 weeks; Translations: [13 weeks gestation of ]90-96-3320MhidrbxeUkeqwsjb codes; unclassified (2 sources)Gestation period, 17 weeks; Translations: [17 weeks gestation of ]46-78-1555ZzscswyoEgdefsqi codes; unclassified (2 sources)Gestation period, 21 weeks; Translations: [21 weeks gestation of ]88-72-9044SxkbogeiSjsqlofj codes; unclassified (2 sources)Gestation period, 24 weeks; Translations: [24 weeks gestation of ]03-39-9949KrwhhwctEjdpgnvy codes; unclassified (4 sources)Gestation period, 28 weeks; Translations: [28 weeks gestation of ]72-54-0656OcpaesxrFpdrohfqabwd (1 source)CONTACT W/AND (SUSP) EXPOS COVID-19; Translations: [CONTACT W/AND (SUSP) EXPOS COVID-19]Onset: 68-76-9220Wyzdqyelfmru (2 sources)pre employment; Translations: [pre employment]Onset: 03-04-2025 Past or Other Problems Problem ClassificationProblemDateDocumented DateEpisodic/ChronicAbdominal pain (1 source)Pelvic and perineal pain; Translations: [PELVIC AND PERINEAL PAIN] Onset: 96-92-9719XtxlsylvHmeq disorders (3 sources)Mood disorders; Translations: [DEPRESSION UNSPECIFIED]Onset: Other circulatory disease (1 source)Elevated blood pressure; Translations: [Elevated blood-pressure reading, without diagnosis of hypertension]69-70-9317KlzfyzwxZdgua upper respiratory infections (1 source)Acute maxillary sinusitis; Translations: [Acute maxillary sinusitis, unspecified]26-84-5833KryofspfViudoj media and related conditions (1 source)Acute non-suppurative otitis media - serous; Translations: [Acute serous otitis media, bilateral]98-99-3258PqkcduhqStzjqioijgyh (2 sources)Onset: Results Test NameValueInterpretationReference RangeFacilityUS OB FOLLOW UP TRANSABDOMINAL APPROACHon 66-94-9214IJ OB FOLLOW UP TRANSABDOMINAL APPROACH FINDINGS: A [...] Delivery: 08/26/25 Gestational Age as of 06/08/2025: 63n3fNjltgbkhaj macro (dipstick) panel (U)on 13-30-7100Tuybvxkoj, UANegativeNegative - 4(70) +++ mg/dLNOMS HealthcareBlood, UANegativeNegative [...] mg/dLNOMS HealthcareNOMS HealthcareUrinalysis macro (dipstick) panel (U)on 08-85-8793Hrehcawce, UA NegativeNegative - 4(70) +++ mg/dLNOMS HealthcareBlood, UANegativeNegative - 50 Randall/mcLNOMS HealthcareClarity, UAClearNOMS HealthcareColor, UAYellowNOMS HealthcareGlucose, UANegativeNegative - 1999(110) ++++ mg/dLNOMS Healthcare Interpretation and review of laboratory resultsAbnormalNOMS HealthcareKetones, UANegativeNegative - 160(16) ++++ mg/dLNOMS HealthcareLeukocytes, UAPositive Negative - 500+++ [facility] HospitalNOMS HealthcareComment on above:1+Nitrite, UANegative Negative - PositiveNOMS HealthcarepH, UA6.05 - 9NOMS HealthcareProtein, UA PositiveNegative - 1999(20) ++++ mg/dLNOMS HealthcareSpec Grav, UA1.0201 - 1.03 NOMS HealthcareUrobilinogen, UA1.00.2 - 12 mg/dLNOMS HealthcareNOMS Healthcare Urinalysis macro (dipstick) panel (U)on 50-37-9325Ijrzgdyjl, UANegativeNegative - 4(70) +++ mg/dLNOMS HealthcareBlood, UANegativeNegative - 50 Randall/mcLNOMS HealthcareClarity, UAClearNOMS HealthcareColor, UAYellowNOMS HealthcareGlucose, UANegativeNegative - 1999(110) ++++ mg/dLNOMS HealthcareInterpretation and review of laboratory resultsAbnormalNOMS HealthcareKetones, UANegativeNegative - 160(16) ++++ mg/dLNOMS HealthcareLeukocytes, UA3+Negative - 500+++ [facility] HospitalNOKY HealthcareNitrite, UANegativeNegative - PositiveNOMS HealthcarepH, UA8.55 - 9 NOMS HealthcareProtein, UATraceNegative - 1999(20) ++++ mg/dLNOMS HealthcareSpec Grav, UA1.011 - 1.03NOMS HealthcareUrobilinogen, UA2.00.2 - 12 mg/dLNOMS HealthcareNOMS HealthcareIGP,APTIMA HPV,AGE GDLNon 23-69-8871NFX GDLN ACOG TESTINGNote.[facility] HealthcareComment on above:TESTS RESULT FLAG UNITS REF RANGE LAB Clinician Provided Cytology Information Source.............Endocervix Other.............. No. of containers..01 ThinPrep Vial Age Madhu CRANE Millie... FLAG LEGEND: L-Low Normal,H-High Normal,LL-Alert Low,HH-Alert High <-Panic Low,>-Panic High,A-Abnormal,AA-Critical Abnormal Performed at: 01 =[facility] [address] [place] [address] Beverly Nguyen MD, IGP, RFX APTIMA HPV ASCUNote.NOMS HealthcareComment on above:TESTS RESULT FLAG UNITS REF RANGE LAB DIAGNOSIS: 02 NEGATIVE FOR INTRAEPITHELIAL LESION OR MALIGNANCY. FUNGAL ORGANISMS MORPHOLOGICALLY CONSISTENT WITH ROSALBA SPECIES ARE PRESENT. Specimen adequacy: 02 Satisfactory for evaluation. Endocervical and/or squamous metaplastic cells (endocervical component) are present. Performed by: 02 Sonia Beckham, [employer] ([facility]) . 02 Note: Note 02 The [...] High <-Panic Low,>-Panic High,A-Abnormal,AA-Critical Abnormal Performed at: [address] [place] [id number] Beverly Nguyen MD, Performed at: = - [address] [id number] Diamond Cutter: Beverly Nguyen MD, Phone: [phone] Performed at: [address] [id number] Diamond Cutter: Beverly Nguyen MD, Phone: [phone] SPATULA-ALONE ENDOCERVIX CLINISYNCNOMS HealthcareAFP, SERUM, OPEN SPINA BIFIDAon 72-33-6878HEK MOM1.10. [facility] HealthcareAFP VALUE34.4 ng/mL.[facility] HealthcareCOMMENT:Comment.[facility] HealthcareComment on above:Giselle Merida, Ph.D., [facility] Director References: Available Upon Request. Multiples Of Median Cutoffs For AFP Elevations Sellers 2.5 Black 2.8 IDD 2.0 Twins 4.5 Abbreviation Definitions IDD - Insulin Dep Diabetes OSBR - Open Spina Bifida Risk For further inquiries contact [facility] at [phone]. This test was developed and its performance characteristics determined by [facility]. It has not been cleared or approved by the Food and Drug Administration. Performed at: - [facility] [address] [facility], [place], [place] [id number] Diamond Cutter: Nirmal [facility], Phone: [phone] GEST. AGE ON COLLECTION DATE17.0. weeksNOKY HealthcareGESTAT. AGE BASED ONLMP. NOMS HealthcareComment on above:Recalculations are not recommended when gestational dating by LMP and ultrasound are within 10 days. INSULIN DEP DIABETESNo.NOM HealthcareINTERPRETATIONComment.[facility] Healthcare Comment on above:Interpretation: Screen [...] 35 and older. MATERNAL AGE AT EDD25.9. yrNOKY HealthcareMULTIPLE GESTATIONNo.[facility] OSBR RISK 1 [id number].[facility] HealthcareRACECaucasian.[facility] HospitalRESULTSReport. [facility] HospitalTEST RESULTS:Negative.[facility] QuqqenctfrLSKIMY498. lbsNOMS HealthcarePREGNANCY N N LMP [id number] 0 17 N 1 Y 206 N N N N N White/ CLINISYNCNOMS HealthcareRECURRENT VAGINITIS (HTRX)on 06-75-4090NREJZNKQY VAGINAE 0NOMS HealthcareATOPOBIUM VAGINAENot detectedNOMS HealthcareBVAB 2,3 (BACTERIAL VAGINOSIS ASSOCIATED BACTERIA 2, 3); MOBILUNCUS KKX0CAON HealthcareBVAB 2,3 (BACTERIAL VAGINOSIS ASSOCIATED BACTERIA 2, 3); MOBILUNCUS SPPNot detectedNOMS HealthcareCANDIDA ALBICANS, PARAPSILOSIS, UZOIOZSHGK02.725AbnormalNOMS HealthcareCANDIDA ALBICANS, PARAPSILOSIS, TROPICALISDetectedAbnormalNOMS HealthcareCANDIDA QKWGICDG7QDKB HealthcareCANDIDA GLABRATANot detectedNOMS HealthcareCANDIDA UVSITJ0QSXE HealthcareCANDIDA KRUSEINot detectedNOMS HealthcareCHLAMYDIA VDLWLSEESXD2NQMP HealthcareCHLAMYDIA TRACHOMATISNot detected NOMS HealthcareGARDNERELLA CFZAESTDA94.732AbnormalNOMS HealthcareGARDNERELLA VAGINALISDetectedAbnormalNOMS HealthcareInterpretation and review of laboratory resultsAbnormalNOMS HealthcareMEGASPHAERA (TYPES 1, 2)0[facility] MEGASPHAERA (TYPES 1, 2)Not detectedNOMS HealthcareMYCOPLASMA MDIIUEFREF8ZCHJ HealthcareMYCOPLASMA GENITALIUMNot detectedNOMS HealthcareNEISSERIA GONORRHOEAE0 NOMS HealthcareNEISSERIA GONORRHOEAENot detectedNOMS HealthcareTRICHOMONAS YFORHLPAP9SPGF HealthcareTRICHOMONAS VAGINALISNot detectedNOMS HealthcareNOMS HealthcareUS OB LIMITED 1+ FETUSESon 91-03-1216WJ OB LIMITED 1+ FETUSESFINDINGS: Cephalic presentation. Anterior [...] was 11/19/2024 (approximate).Urinalysis macro (dipstick) panel (U)on 71-49-7919Efiqgghnn, UANegativeNegative - 4(70) +++ mg/dL NOMS HealthcareBlood, UANegativeNegative - 50 Randall/mcLNOMS HealthcareClarity, UA ClearNOMS HealthcareColor, UAYellowNOMS HealthcareGlucose, UANegativeNegative - 1999(110) ++++ mg/dLNOKY HealthcareInterpretation and review of laboratory resultsAbnormalNOKY HealthcareKetones, UANegativeNegative - 160(16) ++++ mg/dL NOMS HealthcareLeukocytes, UAPositiveNegative - 500+++ Johnson/mcLNOMS Healthcare Comment on above:3+Nitrite, UANegativeNegative - PositiveNOMS HealthcarepH, UA75 - 9NOMS HealthcareProtein, UANegativeNegative - 2000(20) ++++ mg/dLNOMS HealthcareSpec Grav, UA1.021 - 1.03NOKY HealthcareUrobilinogen, UA1.00.2 - 12 mg/dLNOBarnes-Jewish West County HospitalNOKY HealthcareQuantiFERON Tbon 71-42-5030FOZ InterNegative NormalNEGRegency Hospital Cleveland EastComselect specialty hospital-pontiac on above:Result Comment: Quantiferon TB Gold Plus [...] Mycobacterium tuberculosis Infection -- [place], 2010 (http://www.cdc.gov/mmwr/preview/mmwrhtml/gg4140t2.htm), for more information concerning test performance in low-prevalence populations and use in occupational screening.Performed By: #### QFTB #### [employer] [address] [place], [place] [id number] Diamond Cutter: Hamlet Cai Juan minus NIL9.92 IU/mLNormalRegency Hospital Cleveland EastComselect specialty hospital-pont[place] on above:Performed By: #### QFTB #### [employer] [address] [place], [place] [address] Diamond Cutter: Hamlet Caii TB1 minus NIL0.00 IU/mLNormal0.00-0.34 [facility] EastComselect specialty hospital-[place] on above:Performed By: #### QFTB #### [employer] [address] [place], [place] [address] Diamond Cutter: Lance Chester MDQuanti TB2 minus NIL0.00 IU/mLNormal0.00-0.34 [facility] EastComment on above:Performed By: #### QFTB #### [facility] [address], [place] [id number] Diamond Cutter: Lance Chester MDQuantiFERON NIL0.08 IU/mLNormalRegency Hospital Cleveland EastComment on above:Performed By: #### QFTB #### [facility] [address] [place], [place] [id number] Diamond Cutter: Lance Chester MDUrinalysis macro (dipstick) panel (U)on 41-13-3590Lvmsweijr, UANegativeNegative - 4(70) +++ mg/dLNOMS HealthcareBlood, UANegativeNegative [...] - 12 mg/dLNOMS HealthcareNOMS HealthcareUS OB TRANSVAGINALon 11-69-2033[address] [address] Ultrasound Report Signed Patient: MEREDITH TEMPLETON MR#: [id number] : 2000 Acct:[id number] Age/Sex: 24 / F ADM Date: 02/11/25 Loc: US Attending Dr: Abad Canchola D.O. Ordering Physician: Abad Canchola D.O. Date of Service: 02/11/25 Procedure(s): US OB transvaginal Accession Number(s): [id number] cc: Michelle Pabon M.D.; Abad Canchola D.O. [place] [address] Patient Name: MEREDITH TEMPLETON MRN: [id number] date: 2000 Sex: F Assigned Patient Location: US Current Patient Location: US Accession/Order Number: [id number] Exam Date: 02/11/2025 09:39 Report Date: 02/11/2025 [...] Gillette M.D. 02/11/2025 9:43 AM Dictation Location: [place] [address] Electronically authenticated by: [id number] Y Date: 02/11/2025 09:43 Dictated By: Misa Gillette M.D. Signed By: 02/11/2546 DD/ 2 TD/TT: Infant Toddler Lead Teacher:SHERRIEadiology, Radiologist, - 02/11/[address] [address] Ultrasound Report Signed Patient: MEREDITH TEMPLETON MR#: [id number] : 2000 Acct:[id number] Age/Sex: 24 / F ADM Date: 02/11/25 Loc: US Attending Dr: Abad Canchola D.O. Ordering Physician: Abad Canchola D.O. Date of Service: 02/11/25 Procedure(s): US OB transvaginal Accession Number(s): [id number] cc: Michelle Pabon M.D.; Abad Canchola D.O. The [place] [id number] Patient Name: MEREDITH TEMPLETON MRN: [id number] date: 2000 Sex: F Assigned Patient Location: US Current Patient Location: US Accession/Order Number: [id number] Exam Date: 02/11/2025 09:39 Report Date: 02/11/2025 [...] Gillette M.D. 02/11/2025 9:43 AM Dictation Location: [place] [address] Electronically authenticated by: [id number] Y Date: 02/11/2025 09:43 Dictated By: Misa Gillette M.D. Signed By: 02/11/2546 DD/ 2 TD/TT: Infant Toddler Lead Teacher: [facility] HospitalRadiology Study observation (narrative)[facility] HospitalUS OB TRANSVAGINALOrdered By: Radiologist Radiology on 33-15-7233IUIERipley County Memorial Hospital Work Phone: HCG ( test) Ql (U)on 36-11-7568Odtlrjbunpqvfs and review of laboratory resultsAbnormalNOBarnes-Jewish West County HospitalPreg Test, UrPositive NegativeNOSt. Francis Medical CenterMLR HEMOGLOBIN A1Con 85-60-2718Naycgwp [Mass/Vol]91 mg/dLRipley County Memorial HospitalHbA1c (Bld) [Mass fraction]4.8 %4.5 - 6.2 %[facility] HospitalComment on above:ADA RECOMMENDED LIMIT 4.0 - 6.0 ADA THERAPEUTIC TARGET < 7.0 ACTION SUGGESTED > 7.0 CLINISYNCNOKY HealthcareUS OB TRANSVAGINALon 17-71-5888ZI OB TRANSVAGINALEXAM: US OB TRANSVAGINAL HISTORY: Dating. [...] PHD at 22-Jan-2025 10:24:02 AM [facility] [place] TeleradiologyNormalNot AvailableComment on above:Order Comment: US OB TRANSVAGINAL Patient's last menstrual period was 11/19/2024 (approximate).Urinalysis macro (dipstick) panel (U)on 13-77-9633Fnuqhjqhs, UANegativeNegative - 4(70) +++ mg/dL [facility] HealthcareBlood, [...] HealthcareNOMS Healthcare Urinalysis macro (dipstick) panel (U)on 11-38-1498Yjsrujfdh, UANegativeNegative - 4(70) +++ mg/dLNOMS HealthcareBlood, UANegativeNegative - 50 Randall/mcLNOMS HealthcareClarity, UAClearNOMS HealthcareColor, UAYellowNOMS HealthcareGlucose, UANegativeNegative - 1999(110) ++++ mg/dLAL[facility] VIEW [facility]ITAL HealthcareInterpretation and review of laboratory resultsAbnormalNOKY HealthcareKetones, UANegativeNegative - 160(16) ++++ mg/dLAL[facility] VIEW HOSPITAL HealthcareLeukocytes, UAPositiveNegative - 500+++ Johnson/mcL [facility] HealthcareComment on above:LargeNitrite, UANegativeNegative - PositiveNOKY HealthcarepH, UA75 - 9NOMS HealthcareProtein, UANegativeNegative - 2000(20) ++++ mg/dLAL[facility] VIEW HOS[facility]ITAL HealthcareSpec Grav, UA1.0151 - 1.03NOKY HealthcareUrobilinogen, UA0.2 0.2 - 12 mg/dLResearch [facility]iatric Center HealthcareALL CBC WITH AUTO DIFFon 12-01-2024 BASOPHILS ABSOLUTE AUTO0.1NOMS HealthcareBasophils/100 WBC (Bld)0.5 %0.2 - 2.0 % [facility] HospitalEosinophils/100 WBC (Bld)2.6 %0.9 - 7.0 %[facility] Erythrocyte distribution width (RBC) [Ratio]12.2 %11.0 - 15.0 %[facility] Hematocrit (Bld) [Volume fraction]42.8 %36.0 - 48.0 %[facility] HospitalHemoglobin (Bld) [Mass/Vol]14.8 g/dL12.0 - 16.0 g/dLRipley County Memorial HospitalIMMATURE GRANULOCYTES ABS AUTO0.01NOBarnes-Jewish West County HospitalImmature granulocytes/100 WBC (Bld)0.1 %0.0 - 0.5 % [facility] HospitalLYMPHOCYTES ABSOLUTE AUTO2.8NOBarnes-Jewish West County HospitalLymphocytes/100 WBC (Bld)29.5 %20.5 - 60.0 %[facility] CenterH (RBC) [Entitic mass]29.6 pg26.7 - 34.0 pgBothwell Regional Health CenterHC (RBC) [Mass/Vol]34.6 g/dL29.9 - 35.2 g/dLBothwell Regional Health CenterV (RBC) [Entitic vol]85.6 fL81.0 - 99.0 fLRipley County Memorial HospitalMONOCYTES ABSOLUTE AUTO0.6NOBarnes-Jewish West County HospitalMonocytes/100 WBC (Bld)5.8 %1.7 - 12.0 %[facility] HealthcareNEUTROPHILS ABSOLUTE AUTO5.8NOMS HealthcareNeutrophils/100 WBC (Bld) 61.5 %43.0 - 75.0 %N[facility] HealthcarePlatelet mean volume (Bld) [Entitic vol]10 fL 9.5 - 13.5 fLNOMS HealthcareTBH EO #0.3NOMS HealthcareTBH OTC089RHJM Healthcare TBH LBJ6YIQD HealthcareTBH WBC9.5NOMS HealthcareCLINISYNCNOMS HealthcareHCG ( test) Ql (U)on 37-56-2526Tspcngndbxpteo and review of laboratory resultsNormalRipley County Memorial HospitalPreg Test, UrNegativeNegativeNOFreeman [facility] HealthcareUrinalysis macro (dipstick) panel (U)on 83-44-4366Aubhilosq, UA NegativeNegative - 4(70) +++ mg/dLNOKY HealthcareBlood, UANegativeNegative - 50 Randall/mcLNOKY HealthcareClarity, UAClearNOKY HealthcareColor, UAYellowNOKY HealthcareGlucose, UANegativeNegative - 2000(110) ++++ mg/dLRipley County Memorial Hospital Interpretation and review of laboratory resultsAbnormalALTA VIEW HOSPITAL HealthcareKetones, UANegativeNegative - 160(16) ++++ mg/dLRipley County Memorial HospitalLeukocytes, UAPositive Negative - 500+++ Johnson/mcLNOKY HealthcareComment on above:smallNitrite, UA NegativeNegative - PositiveNOKY HealthcarepH, UA75 - 9NOMS HealthcareProtein, UA NegativeNegative - 2000(20) ++++ mg/dLNOKY HealthcareSpec Grav, UA1.011 - 1.03 [facility] HospitalUrobilinogen, UA0.20.2 - 12 mg/dLNOMS [facility] HospitalNOKY Healthcare IGP,APTIMA HPV,AGE GDLNon 77-99-7222JQR GDLN ACOG TESTINGNote.[facility] Comment on above:TESTS RESULT FLAG UNITS REF RANGE LAB Clinician Provided Cytology Information Source.............Cervix;Endocervix No. of containers..01 ThinPrep Vial Phan Pinto... FLAG LEGEND: L-Low Normal,H-High Normal,LL-Alert Low,HH-Alert High <-Panic Low,>-Panic High,A-Abnormal,AA-Critical Abnormal Performed at: 01 =G [facility] [address] Beverly Nguyen MD, IGP, RFX APTIMA HPV ASCUNote.[facility] HospitalComment on above:TESTS RESULT FLAG UNITS REF RANGE LAB DIAGNOSIS: 02 NEGATIVE FOR INTRAEPITHELIAL LESION OR MALIGNANCY. Specimen adequacy: 02 Satisfactory for evaluation. No endocervical component is identified. Performed by: Pricila Smith, Pediatric Physiatrist ([facility]) . 02 Note: Note 02 The [...] <-Panic Low,>-Panic High,A-Abnormal,AA-Critical Abnormal Performed at: [address] [address] Beverly Nguyen MD, Performed at: = - [address] [id number] Diamond Cutter: Beverly Nguyen MD, Phone: [phone] Performed at: [facility] [id number] Diamond Cutter: Beverly Nguyen MD, Phone: [phone] BRUSH-SPATULA CERVIX ENDOCERVIX CLINISYNCNOMS HealthcareComprehensive Metabolic Panelon 81-92-3922Mbdpekq [Mass/Vol]4.2 g/dLNormal3.5-5.0Mer[facility] County Community HospitalComment on above:Order Comment: Ordered by ANNEL Loving By: #### KEIRA, [id number] #### [place] [address] Ph. [phone] [Catalytic activity/Vol]77 U/IZwyzii30-378WmcwpnlRegional Medical CenterComment on above:Order Comment: Ordered by ANNEL Loving By: #### KEIRA, [id number] #### [address] [address] Ph. [phone] [Catalytic activity/Vol]29 U/LNormal0-35WRegional Medical CenterComment on above:Order Comment: Ordered by ANNEL KUNSPerformed By: #### CMP, [id number] #### [place] [address] Ph. [phone] [Catalytic activity/Vol]30 U/KQnqevw69-81SvufeqiRegional Medical CenterComment on above:Order Comment: Ordered by ANNEL Loving By: #### CMP, [id number] #### [place] [address] Ph. [phone] [Mass/Vol]0.4 mg/dLNormal0.2-1.3WRegional Medical CenterComment on above:Order Comment: Ordered by ANNEL Loving By: #### CMP, [id number] #### [place] [address] Ph. [phone] [Mass/Vol]9.2 mg/dLNormal8.4-10.2WRegional Medical CenterComment on above:Order Comment: Ordered by ANNEL Loving By: #### CMP, [id number] #### [place] [address] Ph. [phone] [Moles/Vol]101 mmol/XHjozpe90-874AxyxmabRegional Medical CenterComment on above:Order Comment: Ordered by ANNEL Loving By: #### CMP, [id number] #### [place] [address] Ph. [phone] [Moles/Vol]25 mmol/ZZcssin22-59NjmhhptRegional Medical Center Comment on above:Order Comment: Ordered by ANNEL Loving By: #### CMP, [id number] #### [place] [address] Ph. [phone] [Mass/Vol]0.71 mg/dLNormal0.52-1.04WRegional Medical CenterComment on above:Order Comment: Ordered by ANNEL Loving By: #### CMP, [id number] #### [address] [address] Ph. [phone]/1.73 sq M.predicted among non-blacks MDRD (S/P/Bld) [Vol rate/Area]122 mL/min/{1.73_m2}Normal>60WRegional Medical CenterComment on above:Order Comment: Ordered by ANNEL Reynoso Comment: GFR calculated using CKD-EPI (2020) formula.\X0D0A\Stage 1 Kidney damage (e.g., protein in the urine) with normal GFR >=90\X0D0A\Stage 2 Kidney damage with mild decrease in GFR 60-8 9\X0D0A\Stage 3a Moderate decrease in GFR 45-59\X0D0A\Stage 3b Moderate decrease in GFR 30-44\X0D0A\Stage 4 Severe reduction in GFR 15-29\X0D0A\Stage 5 Kidney failure <15Performed By: #### CMP, [id number] #### [address] [address] Ph. [phone] [Mass/Vol]85 mg/wWPhmycc04-850XhudkgbMercer County Community Hospital Comment on above:Order Comment: Ordered by ANNEL Loving By: #### CMP, [id number] #### [address] [address] Ph. [phone] [Moles/Vol]4.1 mmol/LNormal3.6-5.0WRegional Medical CenterComment on above:Order Comment: Ordered by ANNEL Loving By: #### CMP, [id number] #### [address] [address] Ph. [phone] [Mass/Vol]8.0 g/dLNormut6.3-8.2[facility] Comment on above:Order Comment: Ordered by ANNEL Loving By: #### CMP, [id number] #### [address] [place] [address] Ph. [phone] [Moles/Vol]137 mmol/PSwyedh183-287CepcbviRegional Medical CenterComment on above:Order Comment: Ordered by ANNEL Gonzalezformed By: #### CMP, [id number] #### [place] [address] [place] [address] Ph. [phone] nitrogen [Mass/Vol]10 mg/dLNormal7-17WRegional Medical CenterComment on above:Order Comment: Ordered by ANNEL Gonzalezformed By: #### CMP, [id number] #### [place] [address] Ph. [phone] [Mass/Vol]4.2 g/dL3.5 - 5.0 g/dLWYANDOTALP (Bld) [Catalytic activity/Vol]77 U/L38 - 126 U/LWYANDOTALT [Catalytic activity/Vol]29 U/L0 - 35 U/LWYANDOTAST [Catalytic activity/Vol]30 U/L14 - 36 U/LWYANDOT Bilirubin [Mass/Vol]0.4 mg/dL0.2 - 1.3 mg/dLWYANDOTCalcium [Mass/Vol]9.2 mg/dL 8.4 - 10.2 mg/dLWYANDOTChloride [Moles/Vol]101 mmol/LWYANDOTCO2 [Moles/Vol]25 mmol/LWYANDOTCreatinine [Mass/Vol]0.71 mg/dL0.52 - 1.04 mg/dLWYANDOTGFR, Qzcpypcqm924- PINFWYANDOTComment on above: GFR calculated using CKD-EPI [...] mg/dL7 - 17 mg/dLWYANDOTOrdered by ANNEL FINN [facility] HOSPITALEZRATTSH Reflex FT4on 46-02-1953GZK4.420 mIU/mLNormal0.470-4.680WC[facility] on above:Order Comment: Ordered by ANNEL Gonzalezformed By: #### CMP, [id number] #### [place] [address] Ph. [phone] with Reflexon 82-86-1010FIV Qn2.420 m[IU]/LWYANDOTOrdered by [facility] BASILDELTA COUNTY MEMORIAL HOSPITALWYANDOTPAP ACOG PANEL 2: to 03-01-2022.. NormalThe [facility] GlenbeighComment on above:Performed By: #### [id number] #### [facility] [address] [place] [address] Dr. Dallas Kaplan Gdln ACOG Pairxcy90-71FcrxtxPziMercy HealthComselect specialty hospital-pontiac on above:Performed By: #### [id number] #### [facility] [address] [place] [address] Dr. Dallas WolfDIAGNOSIS:CommentFirelands Regional Medical Center on above: Result Comment: NEGATIVE FOR INTRAEPITHELIAL LESION OR MALIGNANCY.Performed By: #### [id number] #### [facility] [address] [place] [address] Dr. Dallas WolfMethodology:CommentFirelands Regional Medical Center on above: Result Comment: This liquid based ThinPrep(R) pap test was screened with the use of an image guided system.Performed By: #### [id number] #### [facility] [address] [place] [address] Dr. Dallas WolfNote:CommentFirelands Regional Medical Center on above:Result Comment: The Pap smear is a screening test designed to aid in the detection of premalignant and malignant conditions of the uterine cervix. It is not a diagnostic procedure and should not be used as the sole means of detecting cervical cancer. Both false-positive and false-negative reports do occur. .Performed By: #### [id number] #### [facility] [address] [place] [address] Dr. Dallas WolfPerformed by:CommentFirelands Regional Medical Center on above: Result Comment: Nikolay Smith, Pediatric Physiatrist (ASCP)Performed By: #### [id number] #### [place] [address] Dr. Dallas WolfReflex Criteria:[facility] on above:Result Comment: The HPV DNA reflex criteria were not met with this specimen result therefore, no HPV testing was performed. .Performed By: #### [id number] #### [place] [address] Dr. Dallas WolfSpecimen adequacy:[facility] on above:Result Comment: Satisfactory for evaluation. Endocervical and/or squamous metaplastic cells (endocervical component) are present.Performed By: #### [id number] #### [place] [address] Dr. Dallas Jackson AUTO DIFFon 65-00-8663MELM #0.1 103/ulNormal0.0-0.1The Mercy Memorial Hospitalment on above:Performed By: #### CBC #### [facility] [address] [place] [address] Dr. Dallas WolfBasophils/100 WBC (Bld)0.8 %Normal0.2-2.0[facility] Comment on above:Performed By: #### CBC #### [facility] [address] [place] [address] Dr. Dallas Huggins #0.3 103/ulNormal0.0-0.7The [facility] on above: Performed By: #### CBC #### [facility] [address] [address] [address] Dallas Mosleyosinophils/100 WBC (Bld)4.1 %Normal0.9-7.0The [facility] Comment on above:Performed By: #### CBC #### [facility] [address] [place] [address] Dr. Dallas Mosleyrythrocyte distribution width (RBC) [Ratio]13.0 %Slqkfn04.0-15.0 The [facility] System GlenbeighComment on above:Performed By: #### CBC #### [facility] [address] [place] [address] Dr. Dallas WolfHematocrit (Bld) [Volume fraction]43.4 %Pyjnrf50.0-48.0The [facility] System GlenbeighComment on above:Performed By: #### CBC #### [facility] [address] [place] [address] Dr. Dallas WolfHemoglobin (Bld) [Mass/Vol]14.5 g/qYLreefb57.0-16.0The [facility] System GlenbeighComment on above:Performed By: #### CBC #### [facility] [address] [place] [address] Dr. Dallas Ortez #0.02 10e3/ulNormal0.00-0.03The [facility] System GlenbeighComment on above:Performed By: #### CBC #### [facility] [address] [place] [address] Dr. Dallas WolfIG %0.3 %Normal0.0-0.5The Mercy Memorial Hospitalment on above: Performed By: #### CBC #### [facility] [address] [place] [address] Dr. Dallas OsheaMPH #2.2 103/ulNormal1.2-3.8The [facility] GlenbeighComment on above:Performed By: #### CBC #### [facility] [address] [place] [address] Dr. Dallas Osheamphocytes/100 WBC (Bld)28.1 %Ulcrgd58.5-60.0The [facility] GlenbeighComment on above:Performed By: #### CBC #### [facility] [address] [address] [address] Dallas Cifuentes DIFF REQNONormalThe [facility] System GlenbeighComment on above: Performed By: #### CBC #### [facility] [address] [place] [address] Dr. Dallas Hernandez (RBC) [Entitic mass]28.5 ywFanmmi30.7-34.0The [facility] HospitalComment on above:Performed By: #### CBC #### [facility] [address] [place] [address] Dr. Dallas Hernandez (RBC) [Mass/Vol]33.4 g/uOXhetik07.9-35.2The [facility] GlenbeighComment on above:Performed By: #### CBC #### [facility] [address] [place] [address] Dr. Dallas Hernandez (RBC) [Entitic vol]85.3 jMEpwqvc49.0-99.0The [facility] System GlenbeighComment on above:Performed By: #### CBC #### [facility] [address] [place] [address] Dr. Dallas Smith #0.6 103/ulNormal0.3-0.8The [facility] GlenbeighComment on above:Performed By: #### CBC #### [facility] [address] [place] [address] Dr. Dallas Medranoocytes/100 WBC (Bld)7.9 %Normal1.7-12.0The [facility] Comment on above:Performed By: #### CBC #### [facility] [address] [place] [address] Dr. Dallas Garcia #4.6 103/ulNormal1.4-6.5The [facility] System GlenbeighComment on above:Performed By: #### CBC #### [facility] [address] [place] [address] Dr. Dallas Novautrophils/100 WBC (Bld)58.8 %Rqrmeh96.0-75.0The [facility]cy Memorial Hospitalment on above:Performed By: #### CBC #### [facility] [address] [address] [address] Dallas Loulet mean volume (Bld) [Entitic vol]9.6 fLNormal9.5-13.5The [facility] on above:Performed By: #### CBC #### [facility] [address] [address] [address] Dallas WolfPLT242 103/dnPqrbul921-719Bkg [facility] GlenbeighComment on above: Performed By: #### CBC #### [facility] [address] [place] [address] Dr. Dallas WolfRBC5.09 106/ulNormal4.20-5.40[facility] on above:Performed By: #### CBC #### [facility] [address] [place] [address] Dr. Dallas WolfWBC7.8 103/ulNormal4.0-11.0The [facility] System GlenbeighComment on above: Performed By: #### CBC #### [facility] [address] [place] [address] Dr. Dallas WolfPREElise QUANT HCGon 21-62-0793QEV QUANT<1NormalFirelands Regional Medical Center [facility] Comment on above:Performed By: #### PREGQNT #### [facility] [address] [place] [address] Dr. Dallas WolfHCElise RANGESEE [facility] GlenbeighComment on above: Result Comment: 5-50 0-1 WEEK 40-300 1-2 WEEKS 100-1,000 2-3 WEEKS 500-6,000 3-4 WEEKS 5,000-200,000 1-2 MONTHS 10,000-100,000 2-3 MONTHS 3,000-50,000 2ND TRIMESTER 1,000-50,000 3RD TRIMESTERPerformed By: #### PREGQNT #### [facility] [address] [place] [address] Dr. Dallas WolfCovid-19 PCR (CVDTBH)on 43-91-6680LIDR-CoV-2 (COVID-19) RNA SANJANA+probe Ql (Unsp spec)Not detectedNormalNOT DETECTEDThe [facility] Comment on above:Result Comment: This test is not yet approved or cleared by the [place] FDA. When there are no FDA-approved or cleared tests available, and other criteria are met, FDA can make tests available under an emergency access mechanism called an Emergency Use Authorization (EUA). The EUA for this test is supported by the [place] of Health and Human Service's (HHS's) declaration [...] consistent with SARS-CoV-2.Performed By: #### CVDTB #### [facility] [address] [place] [address] Dr. Dallas Wolf Vital Signs Date TimeVital SignValuePerforming VwwdconvyUldmqlix06-70-4824 15:50-0500Body mass index (BMI) [Ratio]35.19 kg/x5Dngqe Jesika DO Work Phone: NOSkyGiraffe Tgitmqvyzh09-08-3966 15:50-0500Body epuzex52.88 kgCorey Jesika DO Work Phone: [phone]-Jewish West County HospitalVbjlquicjj46-05-9664 15:50-0500Diastolic blood sxprltty64 mm[Hg]Abad Jesika DO Work Phone: NOMS HealthcareComment on above:130/ 15:50-0500Systolic blood fdrdqaik600 mm[Hg]Abad Jesika DO Work Phone: NOMS HealthcareComment on above:130/8941-45-6293 08:41-0400Body mass index (BMI) [Ratio]34.4 kg/m2Amy Gregorio PA Work Phone: [facility] HospitalCxefhdwqbb03-46-0741 08:41-0400Body mfmenu08.67 kgShagufta Perkins PA Work Phone: [facility] HospitalJyppxsokmh94-47-8490 08:41-0400Diastolic blood wqdkamnp27 mm[Hg]Shagufta Perkins PA Work Phone: [facility] HospitalHkmiuczdsw30-28-8203 08:41-0400Systolic blood qewvpfci778 mm[Hg]Shagufta Perkins PA Work Phone: [phone]-[facility] HospitalSjfauixszr79-08-5078 08:33-0400Body mass index (BMI) [Ratio]33.59 kg/v5Jiqqssdp Kirill CLUB LOUNGE ATTENDANT Work Phone: [facility] HospitalRfquvblgsc76-44-7700 08:33-0400Body .4 kg Say Kirill CLUB LOUNGE ATTENDANT Work Phone: [facility] HospitalStregzzoxm92-16-6925 08:33-0400Diastolic blood gvjjkinm56 mm[Hg]Say Cosmeerly CLUB LOUNGE ATTENDANT Work Phone: [phone]-[facility] HospitalAhetqzubpf40-77-7097 08:33-0400Systolic blood vjigipoo642 mm[Hg]Say Cosmeerly CLUB LOUNGE ATTENDANT Work Phone: [phone]-[facility] HospitalPkonnnckhy38-91-7644 10:35-0400Body mass index (BMI) [Ratio]33.25 kg/s0Akkge Jesika DO Work Phone: [facility] HospitalRsaxtfmxmf88-32-3902 10:35-0400Body yjmbni11.44 kgCorey Jesika DO Work Phone: [phone]-[facility] HospitalCkdvqivgol28-82-0589 10:35-0400Diastolic blood usqenyza89 mm[Hg]Abad Jesika DO Work Phone: [phone]-[facility] UnionRiple[facility] HospitalVbvcevwluv59-84-9898 10:35-0400Systolic blood dllvhexm370 mm[Hg]Abad Jesika DO Work Phone: [phone]-[facility] UnionRiple[facility] HospitalNxvuqhouuz83-25-9250 10:37-0400Body mass index (BMI) [Ratio]33.31 kg/m2Amy Gregorio PA Work Phone: [facility] HospitalVveshzixpy82-40-4911 10:37-0400Body .62 kgShagufta Perkins PA Work Phone: [facility] HospitalNayjpfwfgo03-82-7995 10:37-0400Diastolic blood jowfkvph43 mm[Hg]Shagufta Perkins PA Work Phone: [facility] HospitalQzgcqlbtvy08-58-4288 10:37-0400Systolic blood swzeehrm760 mm[Hg]Shagufta Perkins PA Work Phone: [phone] [place], [place] [address]Jkwjrwbjda42-21-1006 08:55-0400Body mass index (BMI) [Ratio]33.25 kg/m4Eqsng Jesika DO Work Phone: [facility] HospitalLityukwxla30-02-8114 08:55-0400Body .44 kgCorey Jesika DO Work Phone: [facility] HospitalYttgqwiwif59-32-2938 08:55-0400Diastolic blood elrcssjh35 mm[Hg]Abad Jesika DO Work Phone: [phone] [place], [place] [address]Bblvtvzhrd86-50-2426 08:55-0400Systolic blood vooyhtsl336 mm[Hg]Abad Jesika DO Work Phone: [facility] HospitalHwfcnnhjyv09-40-1189 09:14-0400Body mass index (BMI) [Ratio]33.89 kg/c8FhltwfmiSay Roy [employer]UB LOUNGE ATTENDANT Work Phone: [facility] HospitalFkxljpcjxf07-24-2051 09:14-0400Body utyyvq30.25 kgSay Friedmanly [employer]UB LOUNGE ATTENDANT Work Phone: [facility] HospitalSlunfknude29-72-9316 09:14-0400Diastolic blood ueiiqqzj00 mm[Hg]Say Roy [employer] LOUNGE ATTENDANT Work Phone: [facility] HospitalHqeppzfonm71-43-7057 09:14-0400Systolic blood tujqshut887 mm[Hg]Say Roy [employer] LOUNGE ATTENDANT Work Phone: [phone]-[facility] HospitalVpuncyfhpq58-61-3757 11:00-0400Body mass index (BMI) [Ratio]35.32 kg/q2Yiazc Jesika DO Work Phone: [facility] HospitalKpttbmsihy33-38-6942 11:00-0400Body olsnpe20.25 kgCorey Jesika DO Work Phone: [facility] HospitalGnlfgvlorj64-22-8289 11:00-0400Diastolic blood sjwoilmb42 mm[Hg]Abad Jesika DO Work Phone: [facility] HospitalJvrtivgozf29-13-5071 11:00-0400Systolic blood ikdmaueb853 mm[Hg]Abad Jesika DO Work Phone: [facility] HospitalDxtafwdakk25-89-2997 14:07-0400Body xoxqom535.64 cmMercer County Community Hospital07-19-2024 14:07-0400Body mass index (BMI) [Ratio]35.9 kg/r0GfiqvtysbMercer County Community Hospital07-19-2024 14:07-0400Body cviqbu035.15 [facility]07-19-2024 14:07-0400Diastolic blood uogxbtix75 mm[Hg][facility]07-19-2024 14:07-0400 Heart goba808 /[facility]07-19-2024 14:07-0400Systolic blood mm[Hg][facility]04-25-2024 15:18-0400 Body lajurz100.64 cmMercer County Community Hospital04-25-2024 15:18-0400Body mass index (BMI) [Ratio]36.8 kg/m6TqtizmatfMercer County Community Hospital04-25-2024 15:18-0400Body jridoa874.41 [facility]04-25-2024 15:18-0400Diastolic blood fungyhuu548 mm[Hg][facility] 12-05-2023 15:18-0400Heart rate94 /[facility] 12-05-2023 15:18-0400Systolic blood gohxwtut545 mm[Hg][facility]12-22-2023 11:56-0500Body osddux578.7 cmAnnel Teresa APRN-SPECIAL TESTER Work Phone: [facility]12-22-2023 11:56-0500Body mass index (BMI) [Ratio]35.18 kg/m2Annel JACOBSPECIAL TESTER Work Phone: [facility]Pitt[facility]llo12-22-2023 11:56-0500Body xutlxdpnqqm19.2 [degF]Annel JCAOBSPECIAL TESTER Work Phone: [facility]-2023 11:56-0500Body .96 kgAnnel Teresa APRNClaribelSPECIAL TESTER Work Phone: [facility]12-22-2023 11:56-0500Diastolic blood mm[Hg]Annel JACOBSPECIAL TESTER Work Phone: [facility]12-22-2023 11:56-0500Heart rate 91 /minAnnel Teresa APRNClaribelSPECIAL TESTER Work Phone: [facility] CenterRipple Technologies12-22-2023 11:56-3821WmI1% (BldA) [Mass fraction]99 %Annel JACOBSPECIAL TESTER Work Phone: [facility]12-22-2023 11:56-0500Systolic blood qzrtmiww055 mm[Hg]Annel JACOBSPECIAL TESTER Work Phone: [facility] CenterPlaynomics [facility] Encounters Encounter DateEncounter TypeCare ProviderFacilityStart: 06-21-2025 End: 07-79-2280Anwhejxt flow sheetCorey Jesika DO Work Phone: NO[facility] OBGYNComment on above:28 weeks gestation of ([facility]); Third trimester ([facility]); induced hypertension, antepartum ([facility])Start: 06-21-2025 End: 61-25-9431sqitoclikbQUOET FAZIONot AvailableStart: 06-08-2025 End: 73-98-8637Dgkyfw flowsheetAmy Gregorio MIX Work Phone: [facility] [place] [facility]BGYNStart: 06-08-2025 End: 45-51-6594Iotwby flowsheetShagufta MIX Work Phone: [facility] [place] [facility]BGYNStart: 06-08-2025 End: 03-78-8079Fyilyr outpatient visit 15 minutesShagufta MIX Work Phone: [facility] OBGYNComment on above: size inconsistent with dates ([facility]) (Primary Dx); 28 weeks gestation of ([facility]); Second trimester ([facility])Start: 06-08-2025 End: 40-32-9997bqokayxjfbTWR RAMEYNot AvailableStart: 05-12-2025 End: 66-45-7054Vjxptp flowsMaria Isabel Roy NP Work Phone: [facility] OBGYNStart: 05-12-2025 End: 72-03-8936Fqbjhi flowsMaria Isabel Roy NP Work Phone: [facility] [place] [facility]BGYNStart: 05-12-2025 End: 59-64-5633Tkwtzwmz flow sheetSay Roy NP Work Phone: [facility] [place] OBGYNComment on above:24 weeks gestation of ([facility]); Second trimester ([facility]); Diabetes mellitus screeningStart: 05-12-2025 End: 64-19-7260pfrhwgkhzjAXNRJFVF EBERLYNot AvailableStart: 04-15-2025 End: 11-66-7850Fjcjvj flowsheetCorey Jseika DO Work Phone: [facility]BGYNStart: 04-15-2025 End: 86-92-5529Lroonw flowsheetCorey Jesika DO Work Phone: [facility]BGYNStart: 04-15-2025 End: 80-54-4654Rxrpazroe Result EncounterCorey Jesika DO Work Phone: NOMS External Department UnsolicitedStart: 04-15-2025 End: 70-26-3807Rjegzhiu preventive med est patient 18-39 yrsCorey Jesika DO Work Phone: NOD[facility] [place] OBGYNComment on above:Second trimester ([facility]); 21 weeks gestation of ([facility]); Nausea and vomiting during ([facility]); Vaginal discharge during , antepartum ([facility])Start: 04-15-2025 End: 31-04-3044hknuanimoyGIPRP FAZIONot AvailableStart: 04-08-2025 End: 60-27-5714wdbxxryegmXQJ RAMEYNot AvailableStart: 03-18-2025 End: 88-61-4521Teiopisbr Result EncounterShagufta MIX Work Phone: noms External Department UnsolicitedStart: 03-18-2025 End: 69-21-1197Tdbjajfc Result EncounterShagufta MIX Work Phone: noms External Department UnsolicitedStart: 03-18-2025 End: 60-15-4350Hlvgijms Result EncounterShagufta Gregorio MIX Work Phone: noms External Department UnsolicitedStart: 03-18-2025 End: 05-82-8765Tlpwxhso flow sheetShagufta Tripoli PA Work Phone: [facility] [place] OBGYNComment on above:17 weeks gestation of ([facility]); Second trimester ([facility]); Subchorionic hematoma in first trimester, single or unspecified fetus ([facility]); Screening, , for anatomic survey ([facility]); Exposure to STD; Vaginal dischargeStart: 03-18-2025 End: 61-95-5171xeuqtorobzVQK RAMEYNot AvailableStart: 03-04-2025 End: 72-70-4677hncivwebouCYONNGK Isaac LARAWilson Health HospitalStart: 03-04-2025 End: 33-73-7087Unmseymxpf hospital visit by Fide Sanford CNP Work Phone: [facility] LABStart: 02-18-2025 End: 60-11-1910Ixfoqt flowsheetCorey Jesika DO Work Phone: [facility] BCP OBStart: 02-18-2025 End: 76-61-5152Ccbbip flowsheetCorey Jesika DO Work Phone: [facility] BCP OBStart: 02-18-2025 End: 48-95-5690oaepxztfbiUFFBN FAZIONot AvailableStart: 02-18-2025 End: 34-53-8874Yaidojxq flow sheetCorey Jesika DO Work Phone: NOM[facility] BCP OBComment on above:Second trimester ([facility]); 13 weeks gestation of ([facility])Start: 02-11-2025 End: 31-01-4203Hmosoeulb Result EncounterCorey Jesika DO Work Phone: NOMS External Department UnsolicitedStart: 02-11-2025 End: 45-68-6438Mltyqwqjy Result EncounterCorey Jesika DO Work Phone: NOMS External Department UnsolicitedStart: 01-21-2025 End: 65-80-6984Jnhacqcqu Result EncounterCorey Jesika DO Work Phone: NOM[facility] External Department UnsolicitedStart: 01-21-2025 End: 42-19-1500Nrefuatji Result EncounterCorey Jesika DO Work Phone: noms External Department UnsolicitedStart: 01-21-2025 End: 98-08-3815Hvqeyn outpatient visit 5 minutesNoms Bcp Ob Jesika NurseNOMS BCP OBComment on above:GA: 2n3sMkngi: 01-21-2025 End: 94-21-6642vepimfnkkxQJJQK FAZIONot AvailableStart: 01-13-2025 End: 75-26-9441Dkhoae flowsheetSay Roy CLUB LOUNGE ATTENDANT Work Phone: NOMS BCP OBStart: 01-13-2025 End: 51-10-4176Syatns flowsheetSay Roy CLUB LOUNGE ATTENDANT Work Phone: [facility]OMS BCP OBStart: 01-13-2025 End: 16-90-3014ujmlqbkhigKHZXAACN EBERLYNot AvailableStart: 01-13-2025 End: 39-55-8665Grxxnt outpatient visit 15 minutesSay Roy CLUB LOUNGE ATTENDANT Work Phone: noms [facility] OBComment on above:GA: 4m0vLrhnt: 12-01-2024 End: 08-37-5153Wuigre flowsheetCorey Jesika DO Work Phone: noms BCP OBStart: 12-01-2024 End: 83-34-6185Egdysdliq Result EncounterCorey Jesika DO Work Phone: noms External Department UnsolicitedStart: 12-01-2024 End: 51-04-3056Lniqmsuxe Result EncounterCorey Jesika DO Work Phone: noms External Department UnsolicitedStart: 12-01-2024 End: 79-19-2576Sonnvg outpatient visit 15 minutesCorey Jesika DO Work Phone: noms [facility] OBComment on above:Female infertility; PCOS (polycystic ovarian syndrome); Abnormal uterine bleeding (AUB); Endometriosis; Insulin resistanceStart: 12-01-2024 End: 72-66-7997ginbtietxnRSSJL FAZIONot AvailableStart: 03-25-2024 End: 61-19-6649Oiftbingt Result EncounterCorey Jesika DO Work Phone: noms External Department UnsolicitedStart: 03-25-2024 End: 88-22-8856Fxxuyvuth Result EncounterCorey Jesika DO Work Phone: noms External Department UnsolicitedStart: 02-28-2024 End: 07-10-5613balimwfyqrZschqshpaMetroHealth Parma Medical Center Work Phone: Start: 02-28-2024 End: 27-85-8864Ljdedzc encounter procedureFormerly [facility] Work Phone: Start: 12-05-2023 End: 33-70-8006jlhiycvdxeDgesudmxmMetroHealth Parma Medical Center Work Phone: Start: 12-05-2023 End: 21-61-3908Noimaev encounter procedureFormerly [facility] Work Phone: Start: 12-03-2023 End: 59-89-0564Bahfjitsc encounterAnnel Ivana Teresa SPINNING MACHINE OPERATOR-SPECIAL TESTER Work Phone: [facility] MedicineStart: 08-02-2023 End: 54-08-2531Cnnyxy outpatient visit 15 minutesAnnel Ivana Teresa SPINNING MACHINE OPERATOR-SPECIAL TESTER Work Phone: [facility] Family MedicineComment on above:Acute non-recurrent maxillary sinusitis (Primary Dx); Non-recurrent acute serous otitis media of both ears; Elevated blood pressure readingStart: 01-10-2023 End: 26-63-0166eukxagsmiuOUAE Con[facility]htart: 01-10-2023 End: 47-75-8399Zppbxpsuty hospital visit by physicianAnnel Teresa SPINNING MACHINE OPERATOR - [employer]PER[employer] Work Phone: [facility] LaboratoryStart: 02-26-2022 End: 11-46-5650kbrapfeigmOQ ABAD FAZIOFacility:Y7Foftk: 15-70-2088Xeaeiwomz for preprocedural laboratory examinationDR ABAD [facility]tart: 06-30-2021 End: 28-07-0670xzriiosnzxJM ABAD FAZIOFacility:I4Rzeoy: 12-96-3878Vbhkuqoaj for other preprocedural examinationDR ABAD [facility]Start: 06-27-2021 End: 88-55-1935vfavfidybfWN ABAD FAZIOFacility:M3Povyd: 06-27-2021 End: 21-76-9230Myqirwday for preprocedural laboratory examinationDR ABAD JESIKA Facility:H2Fdsem: 06-21-2021 End: 10-28-1229lcttxfmufqVQ ABAD FAZIOFacility:H4Uxrft: 06-21-2021 End: 18-09-7067Tkjhemjrz for other preprocedural examinationDR [facility] Facility:H1 Procedures DateProcedureProcedure DetailPerforming ClinicianStart: 47-83-1919Qlvza dip stick/tablet rgnt non-auto w/o micrscpCorey Jesika DO Work Phone: Start: 91-18-1181Nogeb dip stick/tablet rgnt non-auto w/o micrscpAmy Gregorio MIX Work Phone: Start: 00-03-4954Zmljp dip stick/tablet rgnt non-auto w/o micrscpKrkylah Roy NP Work Phone: Start: 99-70-4203UDF,APTIMA HPV,AGE GDLNCorey Jesika DO Work Phone: Start: 09-26-6190DAV, SERUM, OPEN SPINA BIFIDAAmaria alejandra MIX Work Phone: Start: 00-37-1092WPSOGZMPP VAGINITIS (HTRX)Shagufta MIX Work Phone: Start: 17-32-2181Ahctu dip stick/tablet rgnt non-auto w/o micrscpAmy Gregorio MIX Work Phone: Start: 60-81-6710Zqivo dip stick/tablet rgnt non-auto w/o micrscpCorey Jesika DO Work Phone: Start: 54-51-8964CB OB TRANSVAGINALCorey Jesika DO Work Phone: Start: 02-62-5071UXS HEMOGLOBIN K8AQaskr Jesika DO Work Phone: Start: 01-21-2025 End: 68-89-2134Dpqjf dip stick/tablet rgnt non-auto w/o micrscpCorey Jesika DO Work Phone: Start: 51-39-3794Wuaip dip stick/tablet rgnt non-auto w/o micrscpKrkylah Roy CLUB LOUNGE ATTENDANT Work Phone: Start: 46-54-7678YSP CBC WITH AUTO DIFFCorey Jesika DO Work Phone: Start: 12-01-2024 End: 20-38-4606Frhnh dip stick/tablet rgnt non-auto w/o micrscpCorey Jesika DO Work Phone: Start: 13-78-5875ULJ,APTIMA HPV,AGE GDLNCorey Jesika DO Work Phone: Start: 50-65-2308Ufksn depression screening assessment Annel Teresa SPINNING MACHINE OPERATOR-SPECIAL TESTER Work Phone: Start: 13-74-0603Kicbabhxrte observation [Identifier] in Cervix by Cyto stainAnnel Teresa SPINNING MACHINE OPERATOR-SPECIAL TESTER Work Phone: Start: 26-03-3174Dkfzsixldftpo metabolic panelUnknown Provider Result Plan of Treatment DateCare ActivityDetailAuthorStart: 77-01-8804Tbgvqqxrs for malignant neoplasm of cervixPap SmearPronanoPay inc.ca [facility] SystemStart: 07-06-2025 End: 09-77-9104Dggljux encounter vqemzdwry12/25/2025 10:40 AM EST Routine [facility] [address] [place] [phone] Abad Canchoal DO [address] [place] [address] NOMFatimah [place] OBGYNStart: 06-28-2025 End: 62-59-1392Fzqrzfy encounter cvqkgftze39/17/2025 3:30 PM EST Routine [facility] [address] [place], [id number] Say Roy, CLUB LOUNGE ATTENDANT [address] [place] [place] [phone] NOMFatimah [place] OBGYNStart: 06-21-2025 End: 96-03-7186Vuskiar encounter xopneszxe46/10/2025 3:30 PM EST Routine [facility] [address] [place], [id number] Abad Canchola DO [address] [place] [place] [address] [facility] [place] [facility]YNStart: 06-21-2025 End: 81-67-9417Kyexomvnsaej / ancillary services pfkwduoyjn34/10/2025 3:00 PM EST Ancillary Procedure [facility] [address] [place] [phone] [facility] [place] [facility]BGYNStart: 06-21-2025 End: 40-43-2148Dijwxyt aminotransferase [Enzymatic activity/volume] in Serum or PlasmaALT Lab Routine induced hypertension, antepartum ([facility]) Expected: 06/21/2025 (Approximate), Expires: 06/21/2026NO[facility] HealthcareComment on above:Expected: 06/21/2025 (Approximate), Expires: 06/21/2026Start: 06-21-2025 End: 59-27-9257Lzihgtfyx aminotransferase [Enzymatic activity/volume] in Serum or PlasmaAST Lab Routine induced hypertension, antepartum ([facility]) Expected: 06/21/2025 (Approximate), Expires: 06/21/2026NO[facility] HealthcareComment on above:Expected: 06/21/2025 (Approximate), Expires: 06/21/2026Start: 06-21-2025 End: 16-02-7976KPY W Auto Differential panel - BloodCBC and differential Lab Routine induced hypertension, antepartum ([facility]) Expected: 06/12 (Approximate), Expires: 06/21/2026NO[facility] HealthcareComment on above: Expected: 06/21/2025 (Approximate), Expires: 06/21/2026Start: 06-21-2025 End: 52-69-9402Lzoxvfcaap [Mass/volume] in Serum or PlasmaCreatinine Lab Routine induced hypertension, antepartum ([facility]) Expected: 06/21/2025 (Ap proximate), Expires: 06/21/2026[facility] Work Phone: comment on above:Expected: 06/21/2025 (Approximate), Expires: 06/21/2026Start: 06-21-2025 End: 32-59-1347Tlgqeve dehydrogenase [Enzymatic activity/volume] in Serum or Plasma by Lactate to pyruvate reactionLactate dehydrogenase Lab Routine induced hypertension, antepartum ([facility]) Expected: 06/21/2025, Expires: 06/21/2026[facility] HealthcareComment on above:Expected: 06/21/2025, Expires: 06/21/2026Start: 06-21-2025 End: 42-48-4495Xwybrzr, urine, 24 hourProtein, urine, 24 hour Lab Routine induced hypertension, antepartum ([facility]) Expected: 06/21/2025 (Approximate), Expires: 06/21/2026[facility] HealthcareComment on above:Expected: 06/21/2025 (Approximate), Expires: 06/21/2026Start: 06-21-2025 End: 52-61-7743Ji and pttPt and ptt Lab Routine induced hypertension, antepartum ([facility]) Expected: 06/21/2025, Expires: 06/21/2026[facility] Healthcare Comment on above:Expected: 06/21/2025, Expires: 06/21/2026Start: 06-21-2025 End: 23-56-0869Hszoc [Mass/volume] in Serum or PlasmaUric acid Lab Routine induced hypertension, antepartum ([facility]) Expected: 06/21/2025 (Hilary roximate), Expires: 06/21/2026[facility] HealthcareComment on above:Expected: 06/21/2025 (Approximate), Expires: 06/21/2026Start: 06-21-2025 End: 49-90-5835Oafg nitrogen [Mass/volume] in Serum or PlasmaBUN Lab Routine induced hypertension, antepartum ([facility]) Expected: 06/21/2025, Expires:06/21/2026[facility] HealthcareComment on above:Expected: 06/21/2025, Expires: 06/21/2026Start: 06-08-2025 End: 94-20-0377ZD for pregnancyUS OB follow up transabdominal approach Imaging Routine size inconsistent with dates ([facility]) Expected: 06/08/2025, Expires: 10/09/2025[facility] Work Phone: comment on above:Expected: 06/08/2025, Expires: 10/09/2025Start: 06-08-2025 End: 68-34-9437Wszzeyc encounter mmrtabolw31/28/2025 8:30 AM EDT Routine [facility] [address] [place], [id number] Shagufta Perkins PA [address] [place], [place] [id number] ArrivedNO Logan OBGYNComment on above:ArrivedStart: 05-12-2025 End: 73-47-1740ZON panel - Blood by Automated countCBC Lab Routine Diabetes mellitus screening Expected: 05/12/2025 (Approximate), Expires: 05/12/2026[facility] Work Phone: comment on above:Expected: 05/12/2025 (Approximate), Expires: 05/12/2026Start: 05-12-2025 End: 71-75-9088Nwxxldgczud of glucose 1 hour after glucose challenge for glucose tolerance testGlucose tolerance, 1 hour Lab Routine Diabetes mellitus screening Expected: 05/12/2025 (Approximate), Expires: 05/12/2026[facility] HealthcareComment on above:Expected: 05/12/2025 (Approximate), Expires: 05/12/2026Start: 05-12-2025 End: 44-54-9376Ikrtcgs encounter procedureNOMS Ford OBGYNComment on above: ArrivedStart: 04-15-2025 End: 21-22-5047Mvykyrh encounter procedureNOMS Logan OBGYNComment on above: ArrivedStart: 87-72-7589ZHIUB-19 Vaccine ( season)COVID-19 Vaccine ( season)NOMS HealthcareStart: 85-95-5085Nafrhemgm vaccinationNOKY HealthcareStart: 04-08-2025 End: 80-84-9581Buirzlgvnfad / ancillary services hfgztkhpyi04/28/2025 8:00 AM EDT Ancillary Procedure [facility] [place] [facility] [address] [phone] [facility]In[facility] Vinelandue OBGYNStart: 04-05-2025 End: 27-02-1683Jfytedu encounter eecyyazal58/25/2025 10:20 AM EDT Office Visit [facility] [address] [facility] [address] [place] [phone] Abad Canchola DO [address] [place] [address] NOMS BCP OBStart: 03-18-2025 End: 77-08-9734Fwpxf fetoprotein, maternalAlpha fetoprotein, maternal Lab Routine 17 weeks gestation of ([facility]) Second trimester ([facility]) Expected: 03/18/2025 (Approximate), Expires: 04/18/2025[facility] Comment on above:Expected: 03/18/2025 (Approximate), Expires: 04/18/2025Start: 03-18-2025 End: 11-58-5583IE for pregnancyUS OB 14+ weeks anatomy scan Imaging Routine Screening, , for anatomic survey ([facility]) Expected: 03/18/2025, Expires: 06/18/2025[facility] HospitalComment on above:Expected: 03/18/2025, Expires: 06/18/2025Start: 03-18-2025 End: 38-66-1816Kdtnjye encounter ksgxaqvnm80/07/2025 10:30 AM EDT Routine [facility] [address] [place] [phone] Shagufta Perkins PA [address] [place], [place] [phone] NOMS BCP OBStart: 03-18-2025 End: 72-11-5090Ovigdtdcwtjc / ancillary services iufnflsfyr03/07/2025 10:00 AM EDT Ancillary Procedure [facility] OB [address] [place] [phone] NOMS BCP OBStart: 29-74-4866Jxgisbxjq vaccinationFlu vaccine (#1)Huseyin [facility] HospitalStart: 02-18-2025 End: 22-18-1984Dbscxpq encounter ukltkrlty82/10/2025 8:40 AM EDT Routine [facility] [address] [place] [address] Abad Canchola, [address] [place] [address] NOMS BCP OBStart: 01-21-2025 End: 01-93-6050HMV/RhABO/Rh Lab Routine Missed menses , unspecified gestational age ([facility]) Expected: 01/21/2025 (Approximate), Expires: 01/21/2026NO[facility] HealthcareComment on above:Expected: 01/21/2025 (Approximate), Expires: 01/21/2026Start: 01-21-2025 End: 87-90-7082kfzqujbjhb02/12/2025 2:00 PM EDT Initial NOM[facility] [address] [place] [address] NOMS BCP OBStart: 01-21-2025 End: 12-33-6903Mpfbv type and Indirect antibody screen panel - BloodType and screen Lab Routine Missed menses , unspecified gestational age ([facility]) Expected: 01/21/2025 (Approximate), Expires: 01/21/2026[facility] Work Phone: comment on above:Expected: 01/21/2025 (Approximate), Expires: 01/21/2026Start: 01-21-2025 End: 90-88-4793Aogui of abuse panel - Urine by Screen methodRapid drug screen, urine Lab Routine , unspecified gestational age ([facility]) Encounter for supervision of normal first in first trimester ([facility]) Expected: 01/21/2025 (Approximate), Expires: 01/21/2026NOMS HealthcareComment on above: Expected: 01/21/2025 (Approximate), Expires: 01/21/2026Start: 01-21-2025 End: 27-36-7210Bwhigeyxbirl / ancillary services pbbymlobua87/12/2025 1:30 PM EDT Ancillary Procedure N[facility] OB [address] [address] LLHA BCP OBStart: 12-17-2024 End: 37-42-0947Ktxjetrpaoqt / ancillary services qtozahbqet68/08/2025 8:00 AM EDT Ancillary Procedure [facility] OB [address] [place] [address] DOJK BCP OBStart: 12-01-2024 End: 69-53-1335Ruxdtxxqhraza hormone ([facility])Antimullerian hormone ([facility]) Lab Routine Abnormal uterine bleeding (AUB) Endometriosis Expected: 12/01/2024 (Approximate), Expires: 12/01/2025NOMS HealthcareComment on above:Expected: 12/01/2024 (Approximate), Expires: 12/01/2025Start: 12-01-2024 End: 60-54-6071XPYNOXKQ Lab Routine PCOS (polycystic ovarian syndrome) Expected: 12/01/2024 (Approximate), Expires: 12/01/2025NOMS HealthcareComment on above: Expected: 12/01/2024 (Approximate), Expires: 12/01/2025Start: 12-01-2024 End: 78-32-4230ZF PelvisUS Pelvis w/ TV Imaging Routine PCOS (polycystic ovarian syndrome) Expected: 12/01/2024, Expires: 12/01/2025NOMS HealthcareComment on above:Expected: 12/01/2024, Expires: 12/01/2025Start: 22-17-9071Wpuhh BMI ScreeningAdult BMI ScreeningProHolzer Hospitaltart: 47-83-1140Eleedflzui ScreeningDepression ScreeningClermont County Hospital SystemStart: 82-19-8915Dlwqoes ScreeningTobacco ScreeningClermont County Hospital SystemStart: 05-39-7398PTDZO-19 Vaccine ( season)COVID-19 Vaccine ( season)Huseyin [facility] HealthStart: 34-09-1994Kzxlibqhz vaccinationNOKY HealthcareStart: 30-54-6046Oyjwz BMI Follow Up PlanAdult BMI Follow Up PlanClermont County Hospital SystemStart: 65-37-8069Wtqnd BMI ScreeningAdult BMI ScreeningClermont County Hospital SystemStart: 61-86-2642Pudkicloy for Chlamydia trachomatisChlamydia Screening [facility] HospitalComment on above:Postponed from 1999 (Not Indicated)Start: 03-76-6512Unbmqabav vaccinationInfluenza VaccineClermont County Hospital SystemStart: 03-55-0120Pcacudnwy vaccinationFlu vaccine (Season Ended) WYANDOTStart: 99-14-0474MDpW,Tdap and Td Vaccines (7 - Td or Tdap)DTaP,Tdap and Td Vaccines (7 - Td or Tdap)[facility] SystemStart: 95-43-2648RTsY/Tdap/Td vaccine (1 - Tdap)DTaP/Tdap/Td vaccine (1 - Tdap)W[place]ANDOTStart: 2018 Hepatitis B Vaccines (1 of 3 - 19+ 3-dose series)Hepatitis B Vaccines (1 of 3 - 19+ 3-dose series)[facility] HealthcareStart: 28-23-0876EHO Vaccines (1 - 3-dose series)HPV Vaccines (1 - 3-dose series)[facility] HealthcareStart: 04-17-3488Zazqlgj of varicella vaccinationVaricella Vaccines (1 of 2 - 13+ 2-dose series)[facility] HealthcareStart: 09-10-0133WQcV/Tdap/Td Vaccines (1 - Tdap)DTaP/Tdap/Td Vaccines (1 - Tdap)[facility] HealthcareStart: 72-30-3340DVA Vaccines (1 of 1 - Standard series)MMR Vaccines (1 of 1 - Standard series)[facility] HealthcareStart: 03-20-2000 COVID-19 Vaccine (#1)COVID-19 Vaccine (#1)WYANDOTBacteria identified in Urine by CultureUrine culture Microbiology Routine Missed menses Ordered: 01/21/2025[facility] HealthcareComment on above:Ordered: 01/21/2025BC W Auto Differential panel - BloodCBC and differential Lab Routine PCOS (polycystic ovarian syndrome) Ordered: 12/01/2024[facility] HealthcareComment on above:Ordered: 12/01/2024BC W Auto Differential panel - BloodCBC and differential Lab Routine Missed menses , unspecified gestational age ([facility]) Ordered: 01/21/2025[facility] HealthcareComment on above:Ordered: 01/21/2025HLAMYDIA TRACHOMATIS (GENITO/STI) CHLAMYDIA TRACHOMATIS (GENITO/STI) Lab Routine Exposure to STD Ordered: 03/18/2025[place] HealthcareComment on above:Ordered: 03/18/2025HLAMYDIA TRACHOMATIS (GENITO/STI)CHLAMYDIA TRACHOMATIS (GENITO/STI) Lab Routine Vaginal discharge during , antepartum ([facility]) Ordered: 04/15/2025[facility] HealthcareComment on above:Ordered: 04/15/2025ytology Cervical or vaginal smear or scraping studyPap Smear Pathology and Cytology Routine Second trimester ([facility]) 21 weeks gestation ofpregnancy ([facility]) Ordered: 04/15/2025 [facility] Healthcare Work Phone: comment on above:Ordered: 04/15/2025DHEA-sulfateDHEA- sulfate Lab Routine PCOS (polycystic ovarian syndrome) Ordered: 12/01/2024[facility] HealthcareComment on above:Ordered: 12/01/2024Follicle stimulating hormone Follicle stimulating hormone Lab Routine PCOS (polycystic ovarian syndrome) Ordered: 12/01/2024[facility] HealthcareComment on above:Ordered: 12/01/2024hCG, quantitative, pregnancyhCG, quantitative, Lab Routine PCOS (polycystic ovarian syndrome) Ordered: 12/01/2024[facility] Healthcare Work Phone: comment on above:Ordered: 12/01/2024Hemoglobin A1c/Hemoglobin.total in BloodHemoglobin A1c Lab Routine Abnormal uterine bleeding (AUB) Endometriosis Ordered: 12/01/2024[facility] HealthcareComment on above: Ordered: 12/01/2024Hemoglobin A1c/Hemoglobin.total in BloodHemoglobin A1c Lab Routine Missed menses , unspecified gestational age ([facility]) Ordered: 01/21/2025[facility] HealthcareComment on above:Ordered: 01/21/2025Hepatitis B virus surface Ag [Presence] in Serum or Plasma by ImmunoassayHepatitis B surface antigen Lab Routine Missed menses , unspecified gestational age ([facility]) Ordered: 01/21/2025[facility] HealthcareComment on above:Ordered: 01/21/2025 Hepatitis C virus Ab [Presence] in Serum or Plasma by ImmunoassayHepatitis C antibody Lab Routine Missed menses , unspecified gestational age ([facility]) Ordered: 01/21/2025[facility] HealthcareComment on above:Ordered: 01/21/2025 HIV-1/HIV-2 antigen/antibody combination immunoassayHIV-1 and HIV-2 antibodies Lab Routine Missed menses , unspecified gestational age ([facility]) Ordered: 01/21/2025[facility] HealthcareComment on above:Ordered: 01/21/2025 Luteinizing hormoneLuteinizing hormone Lab Routine PCOS (polycystic ovarian syndrome) Ordered: 12/01/2024[facility] HealthcareComment on above:Ordered: 12/01/2024 Neisseria gonorrhoeae DNA [Presence] in Unspecified specimen by SANJANA with probe detectionNeisseria gonorrhea DNA probe, direct Lab Routine Exposure to STD Ordered: 03/18/2025[facility] HealthcareComment on above:Ordered: 03/18/2025Neisseria gonorrhoeae DNA [Presence] in Unspecified specimen by SANJANA with probe detection Neisseria gonorrhea DNA probe, direct Lab Routine Vaginal discharge during , antepartum ([facility]) Ordered: 04/15/2025[facility] HealthcareComment on above:Ordered: 04/15/2025Protein/Creatinine [Mass Ratio] in Urine Protein:Creatinine Ratio, Urine Lab Routine induced hypertension, antepartum ([facility]) Ordered: 06/21/2025[facility] HealthcareComment on above:Ordered: 06/21/2025 End: 77-07-3319Rhsexytcioc [facility] Phone: Comment on above:Once for 1 Occurrences starting 03/04/2025 until 03/04/2025Reagin Ab [Presence] in Serum by RPRRPR Lab Routine Missed menses , unspecified gestational age ([facility]) Ordered: 01/21/2025[facility] HealthcareComment on above:Ordered: 01/21/2025Rubella antibody, IgGRubella antibody, IgG Lab Routine Missed menses , unspecified gestational age ([facility]) Ordered: 01/21/2025[facility] HealthcareComment on above: Ordered: 01/21/2025SURESWAB(R) ADVANCED VAGINITIS PLUS, TMASURESWAB(R) ADVANCED VAGINITIS PLUS, TMA Pathology and Cytology Routine Vaginal discharge Ordered: 0 03/18/2025[facility] Work Phone: comment on above:Ordered: 03/18/2025SURESWAB(R) ADVANCED VAGINITIS PLUS, TMASURESWAB(R) ADVANCED VAGINITIS PLUS, TMA Pathology and Cytology Routine Vaginal discharge during , antepartum ([facility]) Ordered: 04/15/2025[facility] HealthcareComment on above:Ordered: 04/15/2025 Thyrotropin [Units/volume] in Serum or PlasmaTSH Lab Routine PCOS (polycystic ovarian syndrome) Ordered: 12/01/2024[facility]:Ordered: 12/01/2024Thyroxine (T4) free [Mass/volume] in Serum or PlasmaT4, free Lab Routine PCOS (polycystic ovarian syndrome) Ordered: 12/01/2024[facility] Comment on above:Ordered: 12/01/2024 Immunizations Immunization DateImmunizationNotesCare JfhqtitqRknuxjmz57-80-2672wfpmmsjuy, injectable, quadrivalent, preservative freeMary Kuns SPINNING MACHINE OPERATOR-SPECIAL TESTER Work Phone: [facility] CenterEdifilm [facility] HospitalGkflxi48-53-3250igvpqigid virus vaccine, unspecified formulationMary Kuns SPINNING MACHINE OPERATOR-SPECIAL TESTER Work Phone: [facility] HospitalRpmozl13-08-1271YVLAF-16, mRNA, LNP- S, PF, 100mcg/0.5mL DoseMary Kuns SPINNING MACHINE OPERATOR-SPECIAL TESTER Work Phone: [facility] HospitalFeywhv43-18-5280NIZZI-41, mRNA, LNP- S, PF, 100mcg/0.5mL DoseAnnel Teresa SPINNING MACHINE OPERATOR-SPECIAL TESTER Work Phone: [facility] HospitalHbxdza69-69-8069jejthditt, injectable, quadrivalent, preservative freeAnnel Teresa SPINNING MACHINE OPERATOR-SPECIAL TESTER Work Phone: [facility] HospitalEetbmz96-26-9171wjaqjxokf A vaccine, pediatric/adolescent dosage, 2 dose scheduleAnnel Teresa SPINNING MACHINE OPERATOR-SPECIAL TESTER Work Phone: [facility]07-28-2017Human Papillomavirus 9-valent vaccineAnnel Teresa SPINNING MACHINE OPERATOR-SPECIAL TESTER Work Phone: [facility] HospitalSkxhvi97-82-0396crfobbngiraol oligosaccharide (groups A, C, Y and W-135) diphtheria toxoid conjugate vaccine (MCV4O)Annel Teresa SPINNING MACHINE OPERATOR-SPECIAL TESTER Work Phone: [facility]10-30-2012human papilloma virus vaccine, quadrivalentAnnel Teresa SPINNING MACHINE OPERATOR-SPECIAL TESTER Work Phone: [facility] [employer] Lyehkh00-25-7027jwhamqafqogyd polysaccharide (groups A, C, Y and W-135) diphtheria toxoid conjugate vaccine (MCV4P)Annel Teresa SPINNING MACHINE OPERATOR-SPECIAL TESTER Work Phone: [facility] HospitalThhmgf40-73-4070plcpiyqbe virus vaccineAnnel Teresa SPINNING MACHINE OPERATOR-SPECIAL TESTER Work Phone: [facility] HospitalWstpxn68-65-8225wghcaizjo A vaccine, pediatric/adolescent dosage, 2 dose scheduleAnnel Teresa SPINNING MACHINE OPERATOR-SPECIAL TESTER Work Phone: [facility]09-12-2012human papilloma virus vaccine, quadrivalentAnnel Teresa SPINNING MACHINE OPERATOR-SPECIAL TESTER Work Phone: [facility]09-12-2012tetanus toxoid, reduced diphtheria toxoid, and acellular pertussis vaccine, adsorbedAnnel Teresa SPINNING MACHINE OPERATOR-SPECIAL TESTER Work Phone: [facility] HospitalJgmibf96-51-1322cdaeixqjyz, tetanus toxoids and acellular pertussis vaccine, unspecified 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 Teresa SPINNING MACHINE OPERATOR-SPECIAL TESTER Work Phone: [facility]07-07-2005measles, mumps and rubella virus vaccineAnnel Teresa SPINNING MACHINE OPERATOR-SPECIAL TESTER Work Phone: [facility] HospitalDsakcs27-65-3538srgfuloxoy vaccine, inactivatedAnnel Teresa SPINNING MACHINE OPERATOR-SPECIAL TESTER Work Phone: [facility] HospitalAaggzi86-14-8276rslrhkddxe, tetanus toxoids and acellular pertussis vaccine, unspecified 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 Teresa SPINNING MACHINE OPERATOR-SPECIAL TESTER Work Phone: [facility] HospitalCdkics21-81-9755qgexyqfnknp influenzae type b conjugate and Hepatitis B vaccineAnnel Teresa SPINNING MACHINE OPERATOR-SPECIAL TESTER Work Phone: [facility]04-26-2001measles, mumps and rubella virus vaccineAnnel Teresa SPINNING MACHINE OPERATOR-SPECIAL TESTER Work Phone: [facility] HospitalXmynlm00-73-7909vkhpugewma vaccine, inactivatedAnnel Teresa SPINNING MACHINE OPERATOR-SPECIAL TESTER Work Phone: [facility] HospitalKxtyhh83-81-2836xexkfsndx virus vaccineAnnel Teresa SPINNING MACHINE OPERATOR-SPECIAL TESTER Work Phone: [facility] HospitalCyzeyt42-20-0297hzxrstucda, tetanus toxoids and acellular pertussis vaccine, unspecified 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 Teresa SPINNING MACHINE OPERATOR-SPECIAL TESTER Work Phone: [facility] HospitalYcrubz92-48-9452glslkgyfggj influenzae type b vaccine, PRP-OMP conjugateAnnel Teresa SPINNING MACHINE OPERATOR-SPECIAL TESTER Work Phone: [facility] HospitalNhkrlq04-07-7907yhpmzioknb, tetanus toxoids and acellular pertussis vaccine, unspecified 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 Teresa SPINNING MACHINE OPERATOR-SPECIAL TESTER Work Phone: [facility] HospitalBlkkay10-21-3649yjzwrzcyaal influenzae type b conjugate and Hepatitis B vaccineAnnel Teresa SPINNING MACHINE OPERATOR-SPECIAL TESTER Work Phone: [facility] HospitalYwozte21-40-8357pnwjutglvc vaccine, inactivatedAnnel Teresa SPINNING MACHINE OPERATOR-SPECIAL TESTER Work Phone: [facility] HospitalAlgscx17-69-1488cnprhqmsuq, tetanus toxoids and acellular pertussis vaccine, unspecified 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 Teresa SPINNING MACHINE OPERATOR-SPECIAL TESTER Work Phone: [facility] HospitalOpanbv68-56-5873qmzpoaqlrri influenzae type b conjugate and Hepatitis B vaccineAnnel Teresa SPINNING MACHINE OPERATOR-SPECIAL TESTER Work Phone: [facility] HospitalLdwolb82-55-0589gfccdrzegp vaccine, inactivatedAnnel Teresa SPINNING MACHINE OPERATOR-SPECIAL TESTER Work Phone: [facility] Payers DatePayer CategoryPayerPolicy [id number] [id number] [id number] Health [id number] [id number] 1.2.840.708655.1.13.239.2.7.3.023542. Medicaid1.2.840.470753.1.13.693.2.7.3.732114.06088-57-7998[employer] Health [id number]425.709035.57045-09-9982Yhxwytu 1.2.840.714897.1.13.693.2.7.3.912[id number] 2.16.840.1.951619.3.57[id number] 2.16.840.1.262382.3.57[id number] 2.16.840.1.053753.3.57[id number] 2.16.840.1.734806.3.57[id number] 2.16.840.1.820210.3.57[id number] 2.16.840.1.784291.3.57[id number] 2.16840.1.197590.3.57[id number] 2.16.840.1.885591.3.57[id number] 2.16.840.1.115424.3.57[id number] 2.16.840.1.072838.3.57[id number] 2.16.840.1.494973.3.57[id number] 2.16.840.1.969149.3.57[id number] 2.16.840.1.777818.3.57[id number] 2.16.840.1.684812.3.57[id number] 2.16.840.1.518515.3.579.2.3256 [id number] 2.16.840.1.853278.3.57[id number] 2.16.840.1.700114.3.57[id number] 2.16.840.1.907443.3.57[id number] 2.16.840.1.783468.3.579.2.692237-67-0445Xgksmbv Health [id number] [id number] UkwyekrugLIG5265 68j80xtj-[id number] Social History DateTypeDetailFacilityTobacco smoking status NHISTobacco smoking consumption unknownWYANDOT Work Phone: start: 94-75-3834Law Assigned At BirthNot on file [facility] Work Phone: start: 03-03-2023 End: 88-55-1430Lwjflmr smoking status NHISNever smoked tobacco (finding) [facility]: 94-03-5738Rkw Assigned At BirthFemale [facility]: 03-25-2024 End: 06-99-2879Toawqhxml beverage intakeLifetime non-drinker (finding)[facility] HealthcareStart: 03-25-2024 End: 27-45-3103Clbxukv of Social functionProMediWhite Hospital SystemStart: 03-25-2024 End: 67-61-6664Vtjcflj use panelProKettering Memorial Hospital SystemStart: 39-50-4540Kcorvcd use and exposureSmokeless tobacco non-userProKettering Memorial Hospital SystemStart: 03-97-3226Rzfyozy intakeEx-drinker (finding)[facility] SystemStart: 54-33-9044Ahf hard is it for you to pay for the very basics like food, housing, medical care, and heatingNot hard at St. Anthony HospitalPlaynomics SystemStart: 05-04-2022 Gender identityIdentifies as female gender (finding)[facility] Start: 38-54-2217UcnpmwcasKJECDecatur County General HospitalStart: 64-78-1196WqgToqtxo (finding)[facility] Clinical Notes 06-30-2021 to 06-21-2025 Note Date & LwqrFprnNwsopxcb28-15-8092 History of Present illness Narrative* Cecilia Khan, GRAPHICS EDITOR - 06/21/2025 3:40 PM EST Reason for [...] nursing note reviewed. Exam conducted with a production support manager present. Vitals: Estimated body mass index is 35.19 kg/m as calculated from the following: Height as of 09/24/19: 5' 6 . Weight as of this encounter: 218 lb. BP: Patient's last menstrual period was 11/19/2024 (approximate). Assessment/Plan ICD-10-CM 1. 28 weeks gestation of ([facility]) Z3A.28 POCT urinalysis dipstick manually resulted 2. Third trimester ([facility]) Z34.93 POCT urinalysis dipstick manually resulted 3. induced hypertension, antepartum ([facility]) O13.9 Creatinine Protein, urine, 24 hour Pt [...] of: Abad Canchola DO documented in this encounterRipley County Memorial HospitalGqcviqqfyc84-62-9288 History of Present illness Narrative* DOMINGUEZ Villagran [...] nursing note reviewed. Exam conducted with a production support manager present. Vitals: Estimated body mass index is 34.4 kg/m as calculated from the following: Height as of 09/24/19: 5' 6 . Weight as of this encounter: 213 lb 1.9 oz. BP: 124/82 Patient's last menstrual period was 11/19/2024 (approximate). Assessment/Plan ICD-10-CM 1. 28 weeks gestation of ([facility]) Z3A.28 POCT urinalysis dipstick manually resulted 2. Second trimester ([facility]) Z34.92 POCT urinalysis dipstick manually resulted Return [...] behalf of: DOMINGUEZ Villagran documented in this encounterRipley County Memorial HospitalHkxgfdyyqt61-09-5205 History of Present illness Narrative* Say Roy [...] nursing note reviewed. Exam conducted with a production support manager present. Vitals: Estimated body mass index is 33.25 kg/m as calculated from the following: Height as of 09/24/19: 5' 6 . Weight as of 04/15/25: 206 lb. BP: Patient's last menstrual period was 11/19/2024 (approximate). ASSESSMENT & PLAN ICD-10-CM 1. 24 weeks gestation of ([facility]) Z3A.24 POCT urinalysis dipstick manually resulted 2. Second trimester ([facility]) Z34.92 3. Diabetes mellitus screening Z13.1 CBC [...] of: Say Roy NP documented in this encounterRipley County Memorial HospitalJjpobvhhjs44-50-7977 History of Present illness Narrative* Chelsie Arango [...] nursing note reviewed. Exam conducted with a production support manager present. Vitals: Estimated body mass index is 33.25 kg/m as calculated from the following: Height as of 09/24/19: 5' 6 . Weight as of this encounter: 206 lb. BP: 116/72 Patient's last menstrual period was 11/19/2024 (approximate). ASSESSMENT & PLAN ICD-10-CM 1. Second trimester ([facility]) Z34.92 Pap Smear 2. 21 weeks gestation of ([facility]) Z3A.21 Pap Smear 3. Nausea and vomiting during ([facility]) O21.9 metoclopramide (Reglan) 10 MG tablet 4. Vaginal discharge during , antepartum ([facility]) O26.899 N89.8 Return OB/Annual Exam: Patient presents [...] of: Abad Canchola DO documented in this encounterRipley County Memorial HospitalQfarmttvqu65-95-6275 History of Present illness Narrative* DOMINGUEZ Villagran [...] PLAN ICD-10-CM 1. 17 weeks gestation of ([facility]) Z3A.17 POCT urinalysis dipstick manually resulted Alpha fetoprotein, maternal Alpha fetoprotein, maternal 2. Second trimester ([facility]) Z34.92 POCT urinalysis dipstick manually resulted Alpha fetoprotein, maternal Alpha fetoprotein, maternal 3. Subchorionic hematoma in first trimester, single or unspecified fetus ([facility]) O41.8X10 O46.8X1 4. Screening, , for anatomic survey ([facility]) Z36.89 US OB 14+ weeks anatomy scan [...] behalf of: DOMINGUEZ Villagran documented in this encounterRipley County Memorial HospitalCbmyqabgmz53-92-3190 Note ADDENDUM #1 Current examination demonstrated an [...] Delivery: 08/26/25 Gestational Age as of 03/18/2025: 40w5l22-32-3212 History of Present illness Narrative* Chelsie Arango [...] nursing note reviewed. Exam conducted with a production support manager present. Vitals: Estimated body mass index is 33.25 kg/m as calculated from the following: Height as of 09/24/19: 5' 6 . Weight as of this encounter: 206 lb. BP: 124/76 Patient's last menstrual period was 11/19/2024 (approximate). ASSESSMENT & PLAN ICD-10-CM 1. Second trimester ([facility]) Z34.92 POCT urinalysis dipstick manually resulted 2. 13 weeks gestation of ([facility]) Z3A.13 New OB: Patient presents today for [...] or undercooked meat, and stay away from [facility]. Patient has been consulted regarding any [...] of: Abad Canchola DO documented in this encounterRipley County Memorial HospitalJhpssnrnlc20-51-2310 History of Present illness Narrative* Cris Gross [...] dipstick manually resulted , unspecified gestational age ([facility]) - Type and screen; Future - ABO/Rh; Future - CBC and differential - Hemoglobin A1c - RPR - Rubella antibody, IgG - Hepatitis B surface antigen - Hepatitis C antibody - HIV-1 and HIV-2 antibodies - Rapid drug screen, urine; Future Encounter for supervision of normal first in first trimester [facility] - Rapid drug screen, urine; Future Nurse Note: Pt unsure of doing the Erin billion to one lab. Advised if patient changes mind to make sure both labs and Erin done at the same time. PVU. OB [...] or undercooked meat, and stay away from [facility]. Patient has also been advised to [...] by: Cris Gross MA documented in this encounterRipley County Memorial HospitalZhkelejjmp59-04-8983 History of Present illness Narrative* Say Roy [...] nursing note reviewed. Exam conducted with a production support manager present. Vitals: Estimated body mass index [...] of: Say Roy NP documented in this encounterRipley County Memorial HospitalYezrhdjgxc94-15-4120 History of Present illness Narrative* Misa Knight [...] nursing note reviewed. Exam conducted with a production support manager present. Vitals: Estimated body mass index [...] of: Abad Canchola DO documented in this encounterMichael Ville [address]Ojhrblagik41-18-3951 Miscellaneous Notes* Telephone Encounter - Lisa Tijerina - 12/03/2023 8:07 AM EDT ----- Message from YASMINE Singh sent at 03/05/2023 5:31 PM EDT ----- Regarding: wellness exam Due December of - Annel * Telephone Encounter - Lisa Tijerina - 12/03/2023 8:07 AM EDT Patient is switching pcp [facility] Tele[facility] encounter Note* Telephone Encounter - Lisa Tijerina - 12/03/2023 8:07 AM EDT ----- Message from YASMINE Singh sent at 03/05/2023 5:31 PM EDT ----- Regarding: wellness exam Due December of - Annel [facility]04-23-2024 Telephone encounter Note* Telephone Encounter - Lisa Tijerina - 12/03/2023 8:07 AM EDT Patient is switching pcp [facility]12-22-2023 History of Present illness Narrative* TinyYASMINE Valencia [...] YASMINE Singh 08/02/23 1251 documented in this encounterMartins Ferry Hospital11-19-2021 NoteThe [place], [place] NAME: MEREDITH ANTONIO DATE OF : MEDICAL REC#: [id number] STATISTICAL PROGRAMMER ANALYST: [id number] NIKOLAS BATISTAADMIGOR DATE: 06/30/2021 09:48:00 RACE BOARD ATTENDANT DATE: 06/30/2021 20:15 DICTATING PHYSICIAN: ABAD CANCHOLA DICTATION DATE: 06/30/2021 12:00 OPERATIVE NOTE OPERATION DATE: 06/30/2021 PROCEDURE NAME: Diagnostic laparoscopy. PREOPERATIVE DIAGNOSES: 1. Pelvic pain. 2. Menorrhagia. 3. Dysmenorrhea. POSTOPERATIVE DIAGNOSES: 1. Pelvic pain. 2. Menorrhagia. 3. Dysmenorrhea. 4. Endometriosis posterior cul-de-sac. ANESTHESIA: General. SURGEON: Abad Canchola DO LINOLEUM LAYER HELPER: CECILIO Mendoza URINE OUTPUT: Yellow and clear. [...] Abad Canchola DO on 07/03/2021 09:18 AM [facility] Signed and Approved by: DR ABAD CANCHOLA . 07/03/2021 09:18:00[facility]Evaluation noteNo assessment information availableW[facility]-Pat[facility] Work Phone: Evaluation note* Diagnosis Onset Date Resolution Status Anxiety and depression acute [facility] Work Phone: Evaluation note* Diagnosis Acute non-recurrent maxillary sinusitis- Primary Non-recurrent acute serous otitis media of both ears Elevated blood pressure reading Elevated blood pressure reading without diagnosis of hypertension documented in this encounter [facility] SystemEvaluation note* Diagnosis Female infertility Female infertility of unspecified origin PCOS (polycystic ovarian syndrome) Polycystic ovaries Abnormal uterine bleeding (AUB) Endometriosis Endometriosis, site unspecified Insulin resistance Other abnormal glucose documented in this encounter [facility]* Diagnosis Amenorrhea Absence of menstruation Missed menses , unspecified gestational age ([facility]) Encounter for supervision of normal first in first trimester ([facility]) documented in this encounter [facility] HealthcareEvaluation note* Diagnosis Nausea and vomiting during - Primary Currently in first trimester with unknown gestational age Constipation, unspecified constipation type documented in this encounter [facility]* Diagnosis Second trimester ([facility]) state, incidental 13 weeks gestation of ([facility]) documented in this encounter [facility] note* Diagnosis 17 weeks gestation of ([facility]) Second trimester ([facility]) state, incidental Subchorionic hematoma in first trimester, single or unspecified fetus ([facility]) Screening, , for anatomic survey ([facility]) Encounter for anatomic survey Exposure to STD Vaginal discharge Leukorrhea, not specified as infective documented in this encounter [facility]Evaluation [facility]* Diagnosis Second trimester ([facility]) state, incidental 21 weeks gestation of ([facility]) Nausea and vomiting during ([facility]) Vaginal discharge during , antepartum ([facility]) documented in this encounter [facility]* Diagnosis 24 weeks gestation of ([facility]) Second trimester ([facility]) state, incidental Diabetes mellitus screening Screening for diabetes mellitus documented in this encounter [facility]Evaluation [facility]* Diagnosis size inconsistent with dates ([facility])- Primary 28 weeks gestation of ([facility]) Second trimester ([facility]) state, incidental documented in this encounter [facility]* Diagnosis 28 weeks gestation of ([facility]) Third trimester ([facility]) state, incidental induced hypertension, antepartum ([facility]) Transient hypertension of , antepartum documented in this encounter [facility] HealthcareInstructionsNot on filedocumented in this encounterProMediWhite Hospital SystemInstructionsNot on filedocumented in this encounterProKettering Memorial Hospital System Summary Purpose Family History No Family [...] and content) DATE CREATED AUTHOR 06/13/2022 [facility] DATE CREATED AUTHOR AUTHOR'S ORGANIZ ATION 08/09/2023 [facility] DATE CREATED AUTHOR AUTHOR'S ORGANIZ ATION 03/07/2025 [facility] DATE CREATED AUTHOR AUTHOR'S ORGANIZ ATION 06/24/2025 [facility] EPIC Care Teams (unrecognized sec tion and content) Team MemberRelationshipSpecialtyStart DateEnd Date Annel Teresa, SPINNING MACHINE OPERATOR - SUPERVISOR [employer] [address] [place] [address] [facility]CP [facility] [facility] [place] Team Status: Active Member Role Status [...] DateEnd Date Michelle Pabon MD [address] [place] [id number] PCP - Generalmily Medicine03/25/24Team MemberRelationshipSpecialtyStart DateEnd Date Annel Teresa APRN-SPECIAL TESTER [address] [facility] [place] [address] PCP - GeneralFamily Medicine01/18/20Team MemberRelationshipSpecialtyStart DateEnd Date Michelle Pabon MD [address] [place] [facility] [address] PCP - GeneralFamily Medicine03/25/24Team MemberRelationshipSpecialtyStart DateEnd Date Michelle Pabon MD [address] [place] [facility] [address] PCP - GeneralFamily Medicine03/25/24Team MemberRelationshipSpecialtyStart DateEnd Date Michelle Pabon MD [address] [place] [facility] [address] PCP - GeneralFamily Medicine03/25/24Team MemberRelationshipSpecialtyStart DateEnd Date Michelle Pabon MD [address] [place] [facility] [address] PCP - GeneralFamily Medicine03/25/24Team MemberRelationshipSpecialtyStart DateEnd Date Michelle Pabon MD [address] [place] [facility] [address] PCP - GeneralFamily Medicine03/25/24Team MemberRelationshipSpecialtyStart DateEnd Date Michelle Pabon MD [address] [place] [facility] [address] PCP - GeneralFamily Medicine03/25/24Team MemberRelationshipSpecialtyStart DateEnd Date Michelle Pabon MD [address] [place] [facility] [address] PCP - GeneralFamily Medicine03/25/24Team MemberRelationshipSpecialtyStart DateEnd Date Michelle Pabon MD [address] [place] [facility] [address] PCP - GeneralFamily Medicine03/25/24Team MemberRelationshipSpecialtyStart DateEnd Date Michelle Pabon MD [address] [place] [facility] [place] [address] PCP - GeneralFamily Medicine03/25/24Team MemberRelationshipSpecialtyStart DateEnd Date Annel Teresa APRN - [facility] [address] [place] [address] PCP - GeneralNurse Practitioner01/10/23Team MemberRelationshipSpecialtyStart Date End Date Michelle Pabon MD [address] [place] [facility] [address] PCP - GeneralFamily Medicine03/25/24Team MemberRelationshipSpecialtyStart DateEnd Date Michelle Pabon MD [address] [place] [facility] [address] PCP - GeneralFamily Medicine03/25/24Team MemberRelationshipSpecialtyStart DateEnd Date Michelle Pabon MD [address] [place] [facility] [address] PCP - GeneralFamily Medicine03/25/24Team MemberRelationshipSpecialtyStart DateEnd Date Michelle Pabon MD [address] [place] [facility] [place] [address] PCP - [facility]03/25/24Team MemberRelationshipSpecialtyStart DateEnd Date Michelle Pabon MD [address] [place] [facility] [address] PCP - [facility]03/25/24Te MemberRelationshipSpecialtyStart DateEnd Date Michelle Pabon MD [address] [place] [facility] [place] [address] PCP - [facility]03/25/24Te MemberRelationshipSpecialtyStart DateEnd Date Michelle Pabon MD [address] [place] [facility] [address] PCP - [facility]03/25/24 Goals (unrecognized section and content) [...] BE BASED ON THE PRIMARY CLINICAL RECORDS. [facility] provides no warranty or guarantee of the accuracy or completeness of information in this document.
[2025-06-29] MEDS: BETAMETHASONE ACE/BETAMETHASONE SOD PHOS 30 MG/5 ML 12 MG IM (17:20)
== END 2025-06-29 17:25 | disposition home or self-care (01) ==
LOC: FBCO 17:13 → FBC 17:13
PROVIDERS: PCP Family Medicine; Visit Provider Obstetrics & Gynecology
DX: O36.0131 Maternal care for anti-D [Rh] antibodies, third trimester, fetus 1 (principal); Z3A.31 31 weeks gestation of pregnancy
CPT/HCPCS: 96372; J0702

== ENCOUNTER 2025-07-01 15:57 | Outpatient (OUT) | payer OTHER, SELFPAY ==
--- OUTSIDE RECORDS SUMMARY | 2025-06-21 15:00 | XMS_ITS | Encounter Summary ---
Author Organization [facility] Address [address] [place] [address] Care Team Providers Care Apprentice Painter Neckties Name Role Phone Michelle Pabon MD Primary Care Provider [phone] Encounter Details DateTypeDepartmentCare Team (Latest Contact Info)Yjorbwjelwi97/10/2025 3:00 PM ESTAncillary Procedure [facility] [address] [place] [address] size inconsistent with dates ([facility]) Social History Tobacco UseTypesPacks/DayYears UsedDateSmoking Tobacco: NeverAlcohol UseStandard Drinks/WeekCommentsNever0 (1 standard drink = 0.6 oz pure alcohol) Estimated Date of EfkzlzurTakeglfvCbj25/15/2026Based on last menstrual period of 11/19/2024 (Approximate)Sex and Gender InformationValueDate RecordedSex Assigned at BirthNot on fileLegal ZvpLskssi03/15/2023 10:09 PM EDTGender IdentityNot on fileSexual OrientationNot on filedocumented as of this encounter Plan of Treatment DateTypeDepartmentCare Team (Latest Contact Info)Ysfrxmyyzcs76/25/2025 10:40 AM ESTRoutine [facility] [address] [place] [address] Abad Canchola DO [address] [place], [place] [phone] documented as of this encounter Procedures Procedure NamePriorityDate/TimeAssociated DiagnosisCommentsUS OB FOLLOW UP TRANSABDOMINAL KAFTUVTWEajjlgg96/10/2025 3:24 PM EST size inconsistent with dates ([facility]) documented in this encounter Results * OB [...] BY: Miguel Thompson MD Authorizing ProviderResult TypeResult StatusInspira Medical Center [facility] NPIMG OB US PROCEDURESFinal Result documented in this encounter Visit Diagnoses Diagnosis size inconsistent with dates ([facility]) documented in this encounter Care Teams Team MemberRelationshipSpecialtyStart DateEnd Date Michelle Pabon MD [address] [place] [address] PCP - GeneralFamily Medicine03/25/24documented as of this encounter
--- OUTSIDE RECORDS SUMMARY | 2025-06-21 15:40 | XMS_ITS | Encounter Summary ---
Author Organization [facility] Address [address] [place] [address] Care Team Providers Care Custom Applicator Name Role Phone Michelle Pabon MD Primary Care Provider [phone] Reason for Visit * ReasonCommentsRoutine Visit Encounter Details DateTypeDepartmentCare Team (Latest Contact Info)Qbwtobecqzf59/10/2025 3:40 PM ESTRoutine [facility] [address] [facility] [place] [phone] Abad Canchola DO [address] [facility] [address] [place], [facility]11 28 weeks gestation of ([facility]); Third trimester ([facility]); induced hypertension, antepartum ([facility]) Social History Tobacco UseTypesPacks/DayYears UsedDateSmoking Tobacco: NeverAlcohol UseStandard Drinks/WeekCommentsNever0 (1 standard drink = 0.6 oz pure alcohol) Estimated Date of YkdxbiyxFeoxltbgTfc24/15/2026ased on last menstrual period of 11/19/2024 (Approximate)Sex and Gender InformationValueDate RecordedSex Assigned at BirthNot on fileLegal XafFpbnpl48/15/2023 10:09 PM EDTGender IdentityNot on fileSexual OrientationNot on filedocumented as of this encounter Last Filed Vital Signs Vital SignReadingTime TakenCommentsBlood Objaelgx938/8611 3:50 PM EST 130/80Pulse--Temperature--Respiratory Rate--Oxygen Saturation--Inhaled Oxygen Concentration--Lauuvg45.9 kg (218 lb)06/21/2025 3:50 PM ESTHeight--Body Mass [...] nursing note reviewed. Exam conducted with a frog or oyster farmworker present. Vitals: Estimated body mass index is 35.19 kg/m?? as calculated from the following: Height as of 09/24/19: 5' 6 . Weight as of this encounter: 218 lb. BP: Patient's last menstrual period was 11/19/2024 (approximate). Assessment/Plan ICD-10-CM 1. 28 weeks gestation of ([facility]) Z3A.28 POCT urinalysis dipstick manually resulted 2. Third trimester ([facility]) Z34.93 POCT urinalysis dipstick manually resulted 3. induced hypertension, antepartum ([facility]) O13.9 Creatinine Protein, urine, 24 hour Pt [...] Plan of Treatment DateTypeDepartmentCare Team (Latest Contact Info)Xhkezklrspv52/25/2025 10:40 AM ESTRoutine [facility] [address] [place] [address] Abad Canchola DO [address] [place] [address] NameTypePriorityAssociated DiagnosesOrder ScheduleCreatinineLabRoutine induced hypertension, antepartum ([facility]) [...] 06/21/2025 (Approximate), Expires: 06/21/2026UNLabRoutine induced hypertension, antepartum ([facility]) Expected: 06/21/2025, Expires: 06/21/2026Protein:Creatinine Ratio, UrineLab Routine induced hypertension, antepartum ([facility]) Ordered: 06/21/2025documented as of this encounter Procedures Procedure NamePriorityDate/TimeAssociated DiagnosisCommentsPOCT URINALYSIS GZDGLXEFQzbwjmr58/10/2025 3:47 PM EST 28 weeks gestation of ([facility]) Third trimester ([facility]) documented in this encounter Results * POCT [...] Visit Diagnoses Diagnosis 28 weeks gestation of ([facility]) Third trimester ([facility]) state, incidental induced hypertension, antepartum ([facility]) Transient hypertension of , antepartum documented in this encounter Care Teams Team MemberRelationshipSpecialtyStart DateEnd Date Michelle Pabon MD [address] [place] [address] PCP - GeneralFamily Medicine03/25/24documented as of this encounter
--- OUTSIDE RECORDS SUMMARY | 2025-06-28 15:30 | XMS_ITS | Encounter Summary ---
Author Organization [facility] Address [address] [place] [address] Care Team Providers Care Accredited Pharmacy Technician Name Role Phone Michelle Pabon MD Primary Care Provider [phone] Reason for Visit * ReasonCommentsRoutine Visit Encounter Details DateTypeDepartmentCare Team (Latest Contact Info)Kbwvxgjbagu48/17/2025 3:30 PM ESTRoutine [facility] [address] [place] [address] Patricia Roy, SUPERVISOR HARD CANDY [address] [place] [address] Third trimester ([facility] 31 weeks gestation of ([facility]); Hypertension during in third trimester, unspecified hypertension in type ([facility]) Social History Tobacco UseTypesPacks/DayYears UsedDateSmoking Tobacco: NeverAlcohol UseStandard Drinks/WeekCommentsNever0 (1 standard drink = 0.6 oz pure alcohol) Estimated Date of MsxdcvusPqddhrskCzb00/15/2026Based on last menstrual period of 11/19/2024 (Approximate)Sex and Gender InformationValueDate RecordedSex Assigned at BirthNot on fileLegal LqiQxahmj84/15/2023 10:09 PM EDTGender IdentityNot on fileSexual OrientationNot on filedocumented as of this encounter Last Filed Vital Signs Vital SignReadingTime TakenCommentsBlood Mprufkcw884/9406/28/2025 3:29 PM EST Pulse--Temperature--Respiratory Rate--Oxygen Saturation--Inhaled Oxygen Concentration--Imzbch182 kg (223 lb)06/28/2025 3:29 PM ESTHeight--Body Mass [...] nursing note reviewed. Exam conducted with a president sales and marketing present. Vitals: Estimated body mass index is 35.99 kg/m?? as calculated from the following: Height as of 09/24/19: 5' 6 . Weight as of this encounter: 223 lb. BP: (!) 140/94 Patient's last menstrual period was 11/19/2024 (approximate). Assessment/Plan ICD-10-CM 1. Third trimester ([facility]) Z34.93 POCT urinalysis dipstick manually resulted 2. 31 weeks gestation of ([facility]) Z3A.31 3. Hypertension during in third trimester, unspecified hypertension in type ([facility]) O16.3 US biophysical profile w non stress [...] Plan of Treatment DateTypeDepartmentCare Team (Latest Contact Info)Tddarsfopph07/25/2025 10:40 AM ESTRoutine [facility] [address] [place] [id number] Abad Canchola, [address] [place], [place] [id number] NameTypePriorityAssociated DiagnosesOrder ScheduleUS biophysical profile w non stress testImagingRoutine Hypertension during in third trimester, unspecified hypertension in type ([facility]) Expected: 06/28/2025 (Approximate), Expires: 12/26/2025documented as of this encounter Procedures Procedure NamePriorityDate/TimeAssociated DiagnosisCommentsPOCT URINALYSIS HUUEJSEBMgabbgn22/17/2025 4:05 PM EST Third trimester ([facility]) documented [...] Date Michelle Pabon MD [address] [place] [phone] PCP - GeneralFamily Medicine03/25/24documented as of this encounter
--- OUTSIDE RECORDS SUMMARY | 2025-07-01 16:01 | XMS_ITS | Clinical Summary ---
Author Organization [facility] Address [address] [place] [address] Care Team Providers Care College Counselor Name Role Phone Michelle Pabon MD Primary Care Provider [phone] Allergies No known active allergies Medications MedicationSigDispense QuantityRefillsLast FilledStart DateEnd DateStatus 27-1 MG tablet Take 1 tablet by mouth DailyActive ondansetron ODT (Zofran-ODT) 4 MG disintegrating tablet Take 4 mg by mouth every 8 (eight) hours if needed for cbrfti2202/22/2025 06/28/2025Discontinued metoclopramide (Reglan) 10 MG tablet Indications:Nausea and vomiting during ([facility])Take 1 tablet (10 mg) by mouth in the morning and 1 tablet (10 mg) at noon and 1 tablet (10 mg) in the evening. Take before meals. Take 1 tablet by mouth 30 minutes prior to meals 3 times daily as needed for nausea. 90 tablet Discontinued DULoxetine (Cymbalta) [address] capsule 1 capsule 1 (one) time each day at the same time06/28/2025Discontinued NIFEdipine CC (Adalat CC) 30 MG 24 hr tablet Take 30 mg by mouth DailyDiscontinued Encounters DateTypeDepartmentCare PhwxEpatfrccrkz87/17/2025 3:30 PM ESTRoutine [facility] [address] [place] [address] Patricia Roy NP Third trimester ([facility]); 31 weeks gestation of ([facility]); Hypertension during in third trimester, unspecified hypertension in type ([facility])06/28/2025linisync Result Encounter [facility] External Department Unsolicited Patricia Roy NP 06/28/2025amboo flowsheet [facility] [address] [place] [address] Patricia Roy NP 5Clinisync Result Encounter [facility]OMS External Department Unsolicited Abad Canchola DO 06/21/2025 3:40 PM ESTRoutine [facility]SEPH[facility] [address] [place] [address] Abad Canchola DO 28 weeks gestation of ([facility]); Third trimester ([facility]); induced hypertension, antepartum ([facility])06/21/2025 3:00 PM EST Ancillary Procedure [facility] OBDAVIDN [address] [place] [phone] size inconsistent with dates ([facility])06/08/2025 8:30 AM EDTRoutine [facility] PATELN [address] [place] [phone] Shagufta Perkins PA size inconsistent with dates ([facility]) (Primary Dx); 28 weeks gestation of ([facility]); Second trimester ([facility])06/08/2025amboo flowsheet [facility] [address] [place] [address] Shagufta Perkins PA 05/12/2025 8:30 AM EDTRoutine [facility] PATELN [address] [place] [address] Patricia Roy NP 24 weeks gestation of ([facility]); Second trimester ([facility]); Diabetes mellitus frsdunqqp31/01/2025amboo flowsheet [facility] [address] [place] [phone] Patricia Roy NP 05/10/2025Telephone [facility] [address] [place] [phone] Nighat Moyer, [place] 04/19/2025Results Follow-Up [facility] [address] [place] [address] RileyingerEdda, BUILDING CONSTRUCTION ESTIMATOR IGP,APTIMA HPV,AGE GDLN04/19/2025Orders Only [facility] [address] [place] [address] Cris Gross, CORI 04/16/2025bstract [facility] [address] [place] [address] Nighat Moyer, [place] 04/16/2025Telephone [facility] [address] [place] [address] João Nighat, [place] 04/15/2025 10:10 AM EDTRoutine [facility] [address] [place] [address] Abad Canchola, Second trimester ([facility]); 21 weeks gestation of ([facility]); Nausea and vomiting during ([facility]); Vaginal discharge during , antepartum ([facility])5Clinisync Result Encounter [facility] External Department Unsolicited Abad Canchola, 5Bamboo flowsheet [facility] [address] [place] [phone] Abad Canchola, 04/08/2025 8:00 AM EDTAncillary Procedure [facility] [address] [place] [phone] from Last 3 Months Family History Medical HistoryRelationNameCommentsHyperlipidemiaFatherHypertensionFather RelationNameStatusCommentsFatherAliveMotherAlive Social History Tobacco UseTypesPacks/DayYears UsedDateSmoking Tobacco: Never Tobacco Cessation:Counseling Given: Not Answered Alcohol UseStandard Drinks/WeekCommentsNever0 (1 standard drink = 0.6 oz pure alcohol)Estimated Date of HvhguovcZhnodckkGlg56/15/2026Based on last menstrual period of 11/19/2024 (Approximate)Sex and Gender InformationValueDate RecordedSex Assigned at BirthNot on fileLegal SxnVkzzlx87/15/2023 10:09 PM EDT Gender IdentityNot on fileSexual OrientationNot on file Last Filed Vital Signs Vital SignReadingTime TakenCommentsBlood Wxtcxptk061/9406/28/2025 3:29 PM EST Pulse--Temperature--Respiratory Rate--Oxygen Saturation--Inhaled Oxygen Concentration--Kerqqx703 kg (223 lb)06/28/2025 3:29 PM QKBQoqutb787.6 cm (5' 6 ) 09/24/2019 12:00 PM ESTBody Mass Index35.9909/24/2019 12:00 PM EST Plan of Treatment DateTypeDepartmentCare Team (Latest Contact Info)Pnrgdutpyxn19/25/2025 10:40 AM ESTRoutine [facility] [address] [place] [phone] Abad Canchola, [address] [place] [place], [place] [phone] Health MaintenanceDue DateLast DoneCommentsCOVID-19 Vaccine ( season) /12/2020, 08/19/2020Influenza Vaccine (#1)510/10/2021, 06/03/2020Pneumococcal Vaccine: Pediatrics (0 to 5 Years) and At-Risk Patients (6 to 64 Years)Aged OutNo longer eligible based on patient's age to complete this topic Procedures Procedure NamePriorityDate/TimeAssociated DiagnosisCommentsUS OB BPP W NON-XIHFMG4906/28/2025 5:27 PM EST POCT URINALYSIS TSQDAFOKFyajygg00/17/2025 4:05 PM EST Third trimester ([facility]) ALL UKLFbmludg43/12/2025 4:19 PM EST CCF MIGAgbvnjp25/12/2025 4:19 PM EST ALL URIC OONWGsspouo46/12/2025 4:19 PM EST TBH OFHSSTKXZQJdrgtim76/12/2025 4:19 PM EST ALL ZQQOygluzy02/12/2025 4:19 PM EST ALL CBC WITH AUTO KVUSOwrgxmb95/12/2025 4:19 PM EST CCF BOOXPbyzkcg54/12/2025 4:19 PM EST SRMCOH PROTHROMBIN TIME INR W/O ADEBAhexene65/12/2025 4:19 PM EST TBH URINE T PROTEIN CREAT ATYSAXewtoso25/12/2025 4:10 PM EST TBH TOTAL PROTEIN 24 HOUR DOFZSAifaqzk55/12/2025 7:45 AM EST POCT URINALYSIS INCNVESPHqpsdtw80/10/2025 3:47 PM EST 28 weeks gestation of ([facility]) Third trimester ([facility]) US OB FOLLOW UP TRANSABDOMINAL GPRSJGDLKwheufp37/10/2025 3:24 PM EST size inconsistent with dates ([facility]) POCT URINALYSIS GAKTXGRTGfiqnnx93/28/2025 8:51 AM EDT 28 weeks gestation of ([facility]) Second trimester ([facility]) POCT URINALYSIS NBESPTVXMzrctgl46/01/2025 8:42 AM EDT 24 weeks gestation of ([facility] RECURRENT VAGINITIS (HTRX)Pwrcyel9204/15/2025 11:40 AM EDT IGP,APTIMA HPV,AGE KUAVKyollmt82/04/2025 10:42 AM EDT PAP CEGUJEppznre46/04/2025 12:00 AM EDTUS OB 14+ WEEKS ANATOMY SCANRoutine 04/08/2025 9:16 AM EDT Screening, , for anatomic survey ([facility]) from Last 3 Months Results * US OB BPP W NON-STRESS (06/28/2025 5:27 PM EST)Anatomical Region LateralityModalityOtherSpecimen (Source)Anatomical Location / Laterality Collection Method / VolumeCollection TimeReceived Time06/28/2025 5:27 PM EST Narrative 06/28/2025 5:29 PM EST [facility] ?[address] ? [place] [address] ? Ultrasound Report ? Signed ? Patient: YENIFER TEMPLETON ?MR#: [id number] ?? : 2000 ?Acct:[id number] ?? Age/Sex: 24 / F ?ADM Date: ?? Loc: [facility] ??253-1 ? Attending Dr: Abad Canchola D.O. ? Ordering Physician: Patricia Roy ?? Date of Service: 06/28/25 ?? Procedure(s): US OB BPP w non-stress ?? Accession Number(s): [id number] ? cc: Michelle Pabon M.D.; Patricia Roy ? [facility] ? [address] ? [place] [address] ? Patient Name: ?? YENIFER TEPMLETON ? MRN: [id number] ? date: 2000 ?Sex: F ?? Assigned Patient Location: [facility] ?? Current Patient Location: [facility] ?? Accession/Order Number: [id number] ?? Exam Date: 06/28/2025 ??16:13 ?Report Date: 06/28/2025 ??17:27 ? At the request of: ?? PATRICIA ??ASHLEY ? Procedure: ??US OB BPP w non-stress ? Ultrasound biophysical profile ? HISTORY: Increased blood pressure ? Adequate breathing movement, gross body movement, tone and ?? amniotic fluid volume for total score of 8 out of 8. ??The amniotic fluid index ?? is 12.6cm within normal limits. ??The heart rate 155 bpm. ? US/US OB BPP w non-stress ?? IMPRESSION: Adequate ultrasound biophysical profile ? Impression dictated by: Ronan Chance M.D. ??06/28/2025 5:27 PM ? Dictation Location: [facility]-20 ? Electronically authenticated by: [id number] ??Y ?? Date: 06/28/2025 ??17:27 ? Dictated By: ?Ronan Chance D.O. ? Signed By: ?06/28/259 ? DD/ 1727 ? TD/TT: ? Digital Music Instructor: Procedure Note Radiology, Radiologist, - 06/28/2025 [place] [address] Ultrasound Report Signed Patient: YENIFER TEMPLETON SMR#: [id number] : 2000Acct:[id number] Age/Sex: Date: Loc: [facility] 253-[address]: Abad Canchola D.O. Ordering Physician: Patricia Roy Date of Service: 06/28/25 Procedure(s): US OB BPP w non-stress Accession Number(s): [id number] cc: Michelle Pabon M.D.; Patricia Roy [address] [address] Patient Name: YENIFER TEMPLETON MRN: [id number] date: 2000 Sex: F Assigned Patient Location: [facility] Current Patient Location: [facility] Accession/Order Number: [id number] Exam Date: 06/28/2025 16:13 Report Date: 06/28/2025 17:27 At the request of: PATRICIA ASHLEY Procedure: US OB BPP w non-stress Ultrasound biophysical profile HISTORY: Increased blood pressure Adequate breathing movement, gross body movement, tone and amniotic fluid volume for total score of 8 out of 8. The amniotic fluidindex is 12.6cm within normal limits. The heart rate 155 bpm. US/US OB BPP w non-stress IMPRESSION: Adequate ultrasound biophysical profile Impression dictated by: Ronan Chance M.D. 06/28/2025 5:27 PM Dictation Location: [facility] Electronically authenticated by: [id number] Y Date: : Dictated By: Ronan Chance D.O. Signed By:06/28/251728 DD/ 26 TD/TT: Digital Music Instructor: Authorizing ProviderResult TypeResult Angeline Roy NPCLINISYNC IMAGING Final Result * POCT urinalysis dipstick manually resulted (06/28/2025 4:05 PM EST) Only the most recent of4 resultswithin the time period is included. ComponentValueRef RangeTest MethodAnalysis TimePerformed AtPathologist Signature Color, UAYellowClarity, UAClearGlucose, UANegativeNegative - 2000(110) ++++ mg/dLBilirubin, UANegativeNegative - 4(70) +++ mg/dLKetones, UANegativeNegative - 160(16) ++++ mg/dLSpec Grav, UA1.0251 - 1.03Blood, UANegativeNegative - 50 Randall/mcLpH, UA6.05 - 9Protein, UANegativeNegative - 2000(20) ++++ mg/dL Urobilinogen, UA0.20.2 - 12 mg/dLLeukocytes, UANegativeNegative - 500+++ Johnson/mcL Nitrite, UANegativeNegative - PositiveSpecimen (Source)Anatomical Location / LateralityCollection Method / VolumeCollection TimeReceived LowvBovgy82/17/2025 4:05 PM EST Narrative Authorizing ProviderResult TypeResult Angeline Roy NPPOINT OF CARE TEST ENTER/EDIT ORDERABLESFinal Result * (ABNORMAL) TBH CREATININE (06/23/2025 4:19 PM EST)ComponentValueRef RangeTest MethodAnalysis TimePerformed AtPathologist SignatureCREATININE0.52(L)0.55 - 1.02 mg/dLTBHTBH EGFR-AF MALIAN>60>=60 mL/min/1.73m 2TBHTBH EGFR-NON AF MALIAN>60>=60 mL/min/1.73m 2TBHSpecimen (Source)Anatomical Location / LateralityCollection Method / VolumeCollection TimeReceived Time06/23/2025 4:19 PM EST06/23/2025 4:20 PM EST Narrative CLINISYNC - 06/23/2025 5:17 PM EST Authorizing ProviderResult TypeResult StatusCorey Jesika DOCLINISYNCFinal Result Performing OrganizationAddressCity/State/ZIP CodePhone Number [facility] * SRMCOH PROTHROMBIN TIME INR W/O COUM (06/23/2025 4:19 PM EST)ComponentValueRef RangeTest MethodAnalysis TimePerformed AtPathologist SignaturePROTHROMBIN TIME 9.89.0 - 11.6 secTBHTBH INR<0.93TBHComment: DESIRED INR: 2.0-3.0 CONDITIONS NOT LISTED BELOW 2.5-3.5 FOR PROSTHETIC HEART VALVE REPLACEMENT 2.5-3.5 RECURRENT THROMBOSIS Specimen (Source)Anatomical Location / LateralityCollection Method / Volume Collection TimeReceived Time06/23/2025 4:19 PM EST06/23/2025 4:20 PM EST Narrative CLINISYNC - 06/23/2025 4:49 PM EST Authorizing ProviderResult TypeResult StatusCorey Jesika DOCLINISYNCFinal Result Performing OrganizationAddressCity/State/ZIP CodePhone Number [facility] * (ABNORMAL) CCF AST (06/23/2025 4:19 PM EST)ComponentValueRef RangeTest Method Analysis TimePerformed AtPathologist SignatureASPARTATE AMINO TRANSFERASE9(L) 15 - 37 U/LTBHSpecimen (Source)Anatomical Location / LateralityCollection Method / VolumeCollection TimeReceived Time06/23/2025 4:19 PM EST06/23/2025 4:20 PM EST Narrative CLINISYNC - 06/23/2025 5:17 PM EST Authorizing ProviderResult TypeResult StatusCorey Jesika DOCLINISYNCFinal Result Performing OrganizationAddressCity/State/ZIP CodePhone Number CLINISYNC TB * CCF APTT (06/23/2025 4:19 PM EST)ComponentValueRef RangeTest MethodAnalysis TimePerformed AtPathologist SignaturePARTIAL THROMBOPLASTIN TIME26.122.3 - 36.2 secTBHSpecimen (Source)Anatomical Location / LateralityCollection Method / VolumeCollection TimeReceived Time06/23/2025 4:19 PM EST06/23/2025 4:20 PM EST Narrative CLINISYNC - 06/23/2025 4:49 PM EST Authorizing ProviderResult TypeResult StatusCorey Jesika DOCLINISYNCFinal Result Performing OrganizationAddressCity/State/ZIP CodePhone Number CLINISYNC TB * ALL URIC ACID (06/23/2025 4:19 PM EST)ComponentValueRef RangeTest Method Analysis TimePerformed AtPathologist SignatureURIC ACID4.32.6 - 6.0 mg/dLTBH Specimen (Source)Anatomical Location / LateralityCollection Method / Volume Collection TimeReceived Time06/23/2025 4:19 PM EST06/23/2025 4:20 PM EST Narrative CLINISYNC - 06/23/2025 5:17 PM EST Authorizing ProviderResult TypeResult StatusCorey Jesika DOCLINISYNCFinal Result Performing OrganizationAddressty/State/ZIP CodePhone Number CLINISYNC TB * ALL LDH (06/23/2025 4:19 PM EST)ComponentValueRef RangeTest MethodAnalysis TimePerformed AtPathologist SignatureLACTATE OCAKDZQXANGSC10620 - 234 U/LTBH Specimen (Source)Anatomical Location / LateralityCollection Method / Volume Collection TimeReceived Time06/23/2025 4:19 PM EST06/23/2025 4:20 PM EST Narrative CLINISYNC - 06/23/2025 5:17 PM EST Authorizing ProviderResult TypeResult StatusCorey Jesika DOCLINISYNCFinal Result Performing OrganizationAddressCity/State/ZIP CodePhone Number CLINISYNC TB * (ABNORMAL) ALL CBC WITH AUTO DIFF (06/23/2025 4:19 PM EST)ComponentValueRef RangeTest MethodAnalysis TimePerformed AtPathologist SignatureTBH WBC12.6(H) 4.0 - 11.0 10 3/uLTBHTBH RBC4.494.20 - 5.40 10 6/uLTBHTBH HGB13.612.0 - 16.0 g/dLTBHTBH HCT38.936.0 - 48.0 %TBHTBH MCV86.681.0 - 99.0 fLTBHTBH MCH30.326.7 - 34.0 pgTBHTBH MCHC35.029.9 - 35.2 g/dLTBHTBH RDW12.811.0 - 15.0 %TBHTBH PLT 611595 - 450 10 3/uLTBHTBH MPV10.79.5 - 13.5 fLTBHNEUTROPHILS PERCENT AUTO74.5 43.0 - 75.0 %TBHLYMPHOCYTES PERCENT AUTO17.4(L)20.5 - 60.0 %TBHMONOCYTES PERCENT AUTO6.01.7 - 12.0 %TBHTBH EO %1.10.9 - 7.0 %TBHBASOPHILS PERCENT AUTO 0.40.2 - 2.0 %TBHIMMATURE GRANULOCYTES PCT AUTO0.6(H)0.0 - 0.5 %TBHNEUTROPHILS ABSOLUTE AUTO9.4(H)1.4 - 6.5 10 3/uLTBHLYMPHOCYTES ABSOLUTE AUTO2.21.2 - 3.8 10 3/uLTBHMONOCYTES ABSOLUTE AUTO0.80.3 - 0.8 10 3/uLTBHTBH EO #0.10.0 - 0.7 10 3/uLTBHBASOPHILS ABSOLUTE AUTO0.10.0 - 0.1 10 3/uLTBHIMMATURE GRANULOCYTES ABS AUTO0.08(H)0.00 - 0.03 10 3/uLTBHSpecimen (Source)Anatomical Location / LateralityCollection Method / VolumeCollection TimeReceived Time06/23/2025 4:19 PM EST06/23/2025 4:20 PM EST Narrative CLINISYNC - 06/23/2025 4:50 PM EST Authorizing ProviderResult TypeResult StatusCorey Jesika DOCLINISYNCFinal Result Performing OrganizationAddressCity/State/ZIP CodePhone Number CLINISYNC TB * (ABNORMAL) ALL BUN (06/23/2025 4:19 PM EST)ComponentValueRef RangeTest Method Analysis TimePerformed AtPathologist SignatureBLOOD UREA NITROGEN6.0(L)7.0 - 18.0 mg/dLTBHSpecimen (Source)Anatomical Location / LateralityCollection Method / VolumeCollection TimeReceived Time06/23/2025 4:19 PM EST06/23/2025 4:20 PM EST Narrative CLINISYNC - 06/23/2025 5:17 PM EST Authorizing ProviderResult TypeResult StatusCorey Jesika DOCLINISYNCFinal Result Performing OrganizationAddressCity/State/ZIP CodePhone Number JOSEPH TB * (ABNORMAL) TBH URINE T PROTEIN CREAT RATIO (06/23/2025 4:10 PM EST)Component ValueRef RangeTest MethodAnalysis TimePerformed AtPathologist SignatureTOTAL PROTEIN URINE JDTVUG47.0(H)<=11.9 mg/dLTBHCREATININE URINE MWDVUR642.5320.00 - 300.00 mg/dLTBHPROTEIN CREATININE RATIO URINE0.09TBHSpecimen (Source) Anatomical Location / LateralityCollection Method / VolumeCollection Time Received Time06/23/2025 4:10 PM EST06/23/2025 4:21 PM EST Narrative CLINISYNC - 06/24/2025 12:35 PM EST Authorizing ProviderResult TypeResult StatusCorey [facility] DOCLINISYNCFinal Result Performing OrganizationAddressCity/State/ZIP CodePhone Number JOSEPH ROOT * (ABNORMAL) TBH TOTAL PROTEIN 24 HOUR URINE (06/23/2025 7:45 AM EST)Component ValueRef RangeTest MethodAnalysis TimePerformed AtPathologist SignatureTOTAL PROTEIN URINE AJKQSD73.2(H)<=11.9 mg/dLTBHTOTAL VOLUME 24 HOUR URINE1,780 mL/24hrTBHTBH TOTAL PROTEIN 24 HOUR TRHBL427.2(H)<=149.1 mg/24hrTBHSpecimen (Source)Anatomical Location / LateralityCollection Method / VolumeCollection TimeReceived Time06/23/2025 7:45 AM EST06/23/2025 4:21 PM EST Narrative CLINISYNC - 06/24/2025 12:46 PM EST Authorizing ProviderResult TypeResult StatusCorey Jesika DOCLINISYNCFinal Result Performing OrganizationAddressCity/State/ZIP CodePhone Number CLINISYNC TBH * US OB follow up transabdominal approach [...] BY: Miguel Thompson MD Authorizing ProviderResult TypeResult StatusKessler Institute For Rehabilitation NPNEW[facility] OB US PROCEDURESFinal Result * (ABNORMAL) RECURRENT VAGINITIS (HTRX) (04/15/2025 11:40 AM EDT)ComponentValue Ref RangeTest MethodAnalysis TimePerformed AtPathologist SignatureATOPOBIUM UEYWYBS456.961 - .9 ppm04/16/2025 6:40 AM EDTHealthTrackRx at [facility] ATOPOBIUM VAGINAENot Vrcvrvfc37.961 - .9 ppm04/16/2025 6:40 AM EDT [facility] HospitalBVAB 2,3 (BACTERIAL VAGINOSIS ASSOCIATED BACTERIA 2, 3); MOBILUNCUS TKO007.961 - 24.689 ppm04/16/2025 6:40 AM EDTHealthTrackRx at LabPortBVAB 2,3 (BACTERIAL VAGINOSIS ASSOCIATED BACTERIA 2, 3); MOBILUNCUS SPP Not Ioixboaz04.961 - 24.689 ppm04/16/2025 6:40 AM EDTHealthTrackRx at LabPort ROSALBA ALBICANS, PARAPSILOSIS, CHFXWJRGFK40.886(A)23.000 - 30.347 ppm 04/16/2025 6:40 AM EDTHealthTrackRx at LabPortCANDIDA ALBICANS, PARAPSILOSIS, TROPICALISDetected(A)23.000 - 30.347 ppm04/16/2025 6:40 AM EDTHealthTrackRx at LabPortCANDIDA MNQMPALN821.000 - 31.618 ppm04/16/2025 6:40 AM EDTHealthTrackRx at LabPortCANDIDA GLABRATANot Jkytynjp75.000 - 31.618 ppm04/16/2025 6:40 AM EDTHealthTrackRx at LabPortCANDIDA VZYUGP023.000 - 30.873 ppm04/16/2025 6:40 AM EDTHealthTrackRx at LabPortCANDIDA KRUSEINot Htqgvxxl34.000 - 30.873 ppm 04/16/2025 6:40 AM EDTHealthTrackRx at LabPortCHLAMYDIA DSHAMPNKZKX540.000 - 31.586 ppm04/16/2025 6:40 AM EDTHealthTrackRx at LabPortCHLAMYDIA TRACHOMATIS Not Tritiebj87.000 - 31.586 ppm04/16/2025 6:40 AM EDTHealthTrackRx at [facility]Port GARDNERELLA IALEKYTVY78.384(A)19.961 - 24.689 ppm04/16/2025 6:40 AM EDT [facility] HospitalGARDNERELLA VAGINALISDetected(A)19.961 - 24.689 ppm 04/16/2025 6:40 AM EDTHealthTrackRx at [facility] CenterPortMEGASPHAERA (TYPES 1, 2)019.961 - 24.689 ppm04/16/2025 6:40 AM EDTHealthTrackRx at LabPortMEGASPHAERA (TYPES 1, 2)Not Mxzzirch09.961 - 24.689 ppm04/16/2025 6:40 AM EDTHealthTrackRx at LabPortNEISSERIA XCVUZROZOKG471.000 - 32.587 ppm04/16/2025 6:40 AM EDT [facility] HospitalNEISSERIA GONORRHOEAENot Ydykzblo31.000 - 32.587 ppm 04/16/2025 6:40 AM EDTHealthTrackRx at LabPortTRICHOMONAS CIHRWCIDA061.000 - 31.995 ppm04/16/2025 6:40 AM EDTHealthTrackRx at LabSt. [facility] HospitalTRICHOMONAS VAGINALIS Not Qtptnscp66.000 - 31.995 ppm04/16/2025 6:40 AM EDTHealthTrackRx at [facility] MYCOPLASMA CIJKTLATVV753.961 - 24.689 ppm04/16/2025 6:40 AM EDTHealthTrackRx at [facility] HospitalMYCOPLASMA GENITALIUMNot Vdfaoasr12.961 - 24.689 ppm04/16/2025 6:40 AM EDTHealthTrackRx at LabPortSpecimen (Source)Anatomical Location / LateralityCollection Method / VolumeCollection TimeReceived TimeTissue 04/15/2025 11:40 AM EDT04/16/2025 1:52 AM EDT Narrative Authorizing ProviderResult TypeResult StatusCorey Jesika DOLAB BLOOD ORDERABLES Final ResultPerforming OrganizationAddressCity/State/ZIP CodePhone Number [facility] [address] [address] * IGP,APTIMA HPV,AGE GDLN (04/15/2025 10:42 AM [...] at: 01 =G ?[facility] ?? [address] [place] ??[phone] ?? Beverly Nguyen MD, IGP, RFX APTIMA HPV ASCUNote.TBHComment: ?? TESTS ? RESULT ??FLAG ??UNITS ?REF RANGE ??LAB DIAGNOSIS: ?02 ?? NEGATIVE FOR INTRAEPITHELIAL LESION OR MALIGNANCY. ?? FUNGAL ORGANISMS MORPHOLOGICALLY CONSISTENT WITH ROSALBA SPECIES ARE ?? PRESENT. Specimen adequacy: ?02 ?? Satisfactory for evaluation. ??Endocervical and/or squamous metaplastic ?? cells (endocervical component) are present. Performed by: ? 02 ?? Sonia Beckham Case Operator (ASCP) . ? 02 Note: ? Note [...] High,A-Abnormal,AA-Critical Abnormal Performed at: 02 WB ?[facility] ?? [address] [place], [place] ??[address] ?? Beverly Nguyen MD, Performed at: ??=G - [facility] [address] ??[id number] Patient Care Director: Beverly Nguyen MD, Phone: ??[phone] Performed at: ??WB - [facility] [address] ??[id number] Patient Care Director: Beverly Nguyen MD, Phone: ??[phone] Specimen (Source)Anatomical Location / LateralityCollection Method / Volume Collection TimeReceived Time04/15/2025 10:42 AM EDT04/15/2025 2:49 PM EDT Narrative CLINISYNC - 04/19/2025 9:09 AM EDT SPATULA-ALONE ENDOCERVIX Authorizing ProviderResult TypeResult StatusCorey Jesika DOLAB BLOOD ORDERABLES Final ResultPerforming OrganizationAddressCity/[facility] CodePhone Number [facility]ITALISYOK [facility] * Pap Smear (04/15/2025 12:00 AM EDT)Specimen [...] Miguel Thompson MD Authorizing ProviderResult TypeResult StatusAmy On license of [facility] US PROCEDURES Edited Result - Final from Last 3 Months Insurance * Guarantor: Yenifer Templeton TypeRelation to PatientDate of BirthPhone Billing AddressPersonal/OkzvafFxkv85/09/[address] [place] [address] * Guarantor: Yenifer Templeton TypeRelation to PatientDate of BirthPhone Billing AddressPersonal/LoculpJacn71/09/[address] [place] [address] Care Teams Team MemberRelationshipSpecialtyStart DateEnd Date Michelle Pabon MD [address] [place] [address] PCP - GeneralFamily Medicine03/25/24
--- OUTSIDE RECORDS SUMMARY | 2025-07-01 16:01 | XMS_ITS | Clinical Summary ---
Author Organization [facility] Address [address], [address] [place] [address] Care Team Providers [employer] Driver Name Role Phone Annel Yuen [facility] Primary Care Provider [phone] Social History Tobacco UseTypesPacks/DayYears UsedDateSmoking Tobacco: Never Assessed CommentsUnknownSex and Gender InformationValueDate RecordedSex Assigned at Not on fileLegal WcvEjicwo66/01/2023 10:58 AM EDTGender IdentityNot on file Sexual OrientationNot on file Plan of Treatment Health MaintenanceDue DateLast DoneCommentsDTaP/Tdap/Td vaccine (1 - Tdap) 2018Flu vaccine (#1)5COVID-19 Vaccine ( - season) 2025Polio vaccineAged OutNo longer eligible based on patient's age to complete this topic Insurance * Guarantor: Yenifer ViverosAccount TypeRelation to PatientDate of BirthPhone Billing AddressPersonal/QwzwmkAobl60/09/2001 [facility] [place] [address] Care Teams Team MemberRelationshipSpecialtyStart DateEnd Date Annel Yuen, [employer] ATTENDANT - [employer] BUILDER APPRENTICE [address] [place] [address] PCP - GeneralNurse Practitioner01/10/23
--- OUTSIDE RECORDS SUMMARY | 2025-07-01 16:01 | XMS_ITS | Encounter Summary ---
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 [address] [place] [address] Social History Tobacco UseTypesPacks/DayYears UsedDateSmoking Tobacco: NeverAlcohol UseStandard Drinks/WeekCommentsNever0 (1 standard drink = 0.6 oz pure alcohol) Estimated Date of MnaedrulIbwrtqniCkf22/15/2026ased on last menstrual period of 11/19/2024 (Approximate)Sex and Gender InformationValueDate RecordedSex Assigned at BirthNot on fileLegal VdpJnqydf97/15/2023 10:09 PM EDTGender IdentityNot on fileSexual OrientationNot on filedocumented as of this encounter Plan of Treatment DateTypeDepartmentCare Team (Latest Contact Info)Zoqkpcdsdhk56/25/2025 10:40 AM ESTRoutine [facility] [address] [place] [address] Abad Canchola DO [address] [place], [place] [address] documented as of this encounter Procedures Procedure NamePriorityDate/TimeAssociated DiagnosisCommentsUS OB BPP W NON-WANJAU0106/28/2025 5:27 PM EST documented in this encounter Results * US OB BPP W NON-STRESS (06/28/2025 5:27 PM EST)Anatomical Region LateralityModalityOtherSpecimen (Source)Anatomical Location / Laterality Collection Method / VolumeCollection TimeReceived Time06/28/2025 5:27 PM EST Narrative 06/28/2025 5:29 PM EST [facility] ?[address] ? [place] [address] ? Ultrasound Report ? Signed ? Patient: JARETH,MEREDITH S ?MR#: [id number] ?? : 2000 ?Acct:[id number] ?? Age/Sex: 24 / F ?ADM Date: ?? Loc: [facility] ??253-1 ? Attending Dr: Abad Canchola D.O. ? Ordering Physician: Say Roy ?? Date of Service: 06/28/25 ?? Procedure(s): US OB BPP w non-stress ?? Accession Number(s): [id number] ? cc: Michelle Pabon M.D.; Say Roy ? [facility] ? [address] ? [place] [address] ? Patient Name: ?? MEREDITH TEMPLETON ? MRN: [facility]:[id number] ? date: 2000 ?Sex: F ?? Assigned Patient Location: [facility] ?? Current Patient Location: [facility] ?? Accession/Order Number: [id number] ?? Exam Date: 06/28/2025 ??16:13 ?Report Date: 06/28/2025 ??17:27 ? At the request of: ?? SAY ??ASHLEY ? Procedure: ??US OB BPP w [...] M.D. ??06/28/2025 5:27 PM ? Dictation Location: RADIO-PC-20 ? Electronically authenticated by: [id number] ??Y ?? Date: 06/28/2025 ??17:27 ? Dictated By: ?Ronan Chance D.O. ? Signed By: ?06/28/25 1729 ? DD/ ? TD/TT: ? Marketing Compliance Manager: Procedure Note Radiology, Radiologist, - 06/28/2025 [place] [address] Ultrasound Report Signed Patient: MEREDITH TEMPLETON SMR#: [id number] : 2000Acct:[id number] Age/Sex: FADM Date: Loc: [facility] 253-[address]: Abad Canchola D.O. Ordering Physician: Say Roy Date of Service: 06/28/25 Procedure(s): US OB BPP w non-stress Accession Number(s): [id number] cc: Michelle Pabon M.D.; Say Roy The [place] [address] Patient Name: MEREDITH TEMPLETON MRN: [id number] date: 2000 Sex: F Assigned Patient Location: [facility] Current Patient Location: [facility] Accession/Order Number: [id number] Exam Date: 06/28/2025 16:13 Report Date: 06/28/2025 17:27 At the request of: SAY ROY Procedure: US OB BPP w non-stress Ultrasound [...] Chance M.D. 06/28/2025 5:27 PM Dictation Location: [place] [address] Electronically authenticated by: [id number] Y Date: 7:27 Dictated By: Ronan Chance D.O. Signed By:[id number] DD/ 26 TD/TT: Marketing Compliance Manager: Authorizing ProviderResult TypeResult StatusKrkylah Roy NPCLINISYNC IMAGING Final Result documented in this encounter Visit Diagnoses Not on filedocumented in this encounter Care Teams Team MemberRelationshipSpecialtyStart [place] [address] [place] [address] PCP - GeneralFamily Medicine03/25/24documented as of this encounter
--- OUTSIDE RECORDS SUMMARY | 2025-07-01 16:02 | XMS_ITS | CCD ---
Author Organization [facility] Care Team Providers Care Sweeper Operator Highways Name Role Phone JESIKA, DR CALVIN Primary [...] Unavailable JESIKA, DR CALVIN Attending Unavailable Malick HOGSHEAD SALVAGE - LABOR DELIVERY RN, Annel Concha Primary Care Provider ANNEL TERESA Referring Unavailable MALICK, ANNEL Concha Primary Care Unavailable Michelle Pabon MD Primary Care Provider [phone] Malick HOGSHEAD SALVAGE-GUI DEVELOPER, Annel Heath Primary Care Provider Unavailable Primary Care Provider Michelle Hernandez MD Primary Care Provider [phone] Michelle Pabon MD Primary Care Provider Malick APARICIO - LABOR DELIVERY RN, Annel Concha Primary Care Provider RAFAEL LARA [...] oral tablet (1 source)Penicillin-class AntibacterialStart: 08-02-2023 End: 00-34-3299iryf 1 tablet by mouth once in the morningamoxicillin-pot clavulanate (AUGMENTIN) 875-125 mg per tablet Take 1 tablet by mouth in the morningand 1 tablet before bedtime. Do all this for 7 days. 14 tablet 0 08/02/2023 08/09/2023 Activedocusate sodium 100 mg oral capsule (4 sources)Start: 01-13-2025 End: 19-51-9810dbob 1 capsule by mouth in the morningdocusate sodium (Colace) 100 MG capsule Indications: Constipation, unspecified constipation type Take 1 capsule (100 mg) by mouth in the morning and 1 capsule (100 mg) before bedtime. Do all this for10 days. 20 capsule 01/13/2025 01/23/2025 Activeloratadine 10 mg oral tablet (6 sources) End: 44-24-0085vbyw 1 tablet by mouth once dailyloratadine (Claritin) 10 MG tablet Take 10 mg by mouth Daily 01/13/2025 Discontinuedlosartan potassium 25 mg oral tablet (5 sources)Angiotensin 2 Receptor BlockerStart: 02-28-2024 End: 56-05-3498tawd 25 mg by mouth once dailyLosartan Active 25 MG PO Daily February 28, 2024 12:00ammetFORMIN hydrochloride 500 mg oral tablet (6 sources)BiguanideStart: 12-01-2024 End: 20-86-5862jvqj 1 tablet by mouth at mealtimemetFORMIN (Glucophage) 500 MG tablet Indications: PCOS (polycystic ovarian syndrome) , Insulin resistance Take 1 tablet (500 mg) by mouth in the morning. Take with meals. 30 tablet 11 12/01/2024 01/13/2025 Discontinuedmetoclopramide 10 mg oral tablet (20 sources)Dopamine-2 Receptor AntagonistStart: 04-15-2025 End: 45-93-3219qnefpysygfuybq (Reglan) 10 MG tablet Indications: Nausea and vomiting during (HHS-HCC) Take 1 tablet (10 mg) by mouth in the morning and 1 tablet (10 mg) at noon and 1 tablet (10 mg) in theevening. Take before meals. Take 1 tablet by mouth 30 minutes prior to meals 3 times daily as needed for nausea. 90 tablet 1 04/15/2025 ActiveStart: 01-13-2025 End: 00-06-7171atcvnJZWBRCLC 0.0075 mg/mg vaginal gel (3 sources)Nitroimidazole AntimicrobialStart: 05-10-2025 End: 11-41-3554eyjqsYGIUSVSQ (Metrogel) 0.75 % vaginal gel Indications: BV (bacterial vaginosis) Insert into the vagina Daily for 5 days 70 g 05/10/2025 05/15/2025 ActiveMultiple Vitamin (multivitamin) tablet (6 sources) End: 38-08-3480qihx 1 tablet by mouth once dailyMultiple Vitamin (multivitamin) tablet Take 1 tablet by mouth Daily 01/13/2025 Discontinuedtake 1 tablet by mouth once dailyMultiple Vitamin (multivitamin) tablet Take 1 tablet by mouth Daily Atbwax70 hr NIFEdipine 30 mg extended release oral tablet (7 sources)Dihydropyridine Calcium Channel BlockerStart: 97-95-5463rock 1 tablet by mouth once daily, then take 1 tablet by mouth every twenty-four hours NIFEdipine CC (Adalat CC) 30 MG 24 hr tablet Take 30 mg by mouth Daily 10/20/2024 Activeondansetron 4 mg disintegrating oral tablet (20 sources)Serotonin-3 Receptor AntagonistStart: 20-63-1517mjrj 1 tablet by mouth every eight hours as needed for nauseaondansetron ODT (Zofran-ODT) 4 MG disintegrating tablet Take 4 mg by mouth every 8 (eight) hours ifneeded for nausea 02/22/2025 ActiveStart: 01-11-2025 End: 94-26-6691imzv 1 tablet by mouth every six hours for nauseaondansetron ODT (Zofran-ODT) 4 MG disintegrating tablet Indications: Nausea and vomiting during ([facility]) Take 1 tablet (4 mg) by mouth every 6 (six) hours if needed for nausea or vomiting 30 tablet 2 01/11/2025 02/10/2025 Activephentermine hydrochloride 37.5 mg oral tablet (3 sources)Sympathomimetic Amine AnorecticStart: 01-09-2023 End: 84-90-4295ddpz 33-33.9 tablets by mouth once daily before breakfast phentermine (ADIPEX-P) 37.5 mg tablet Indications: Class 1 obesity due to excess calories without serious comorbidity with body mass index (BMI) of 33.0 to 33.9 in adult Take 1 tablet (37.5 mg total)by mouth every morning before breakfast. 30 tablet 0 03/05/2023 08/02/2023 Discontinued (Therapy completed)predniSONE 20 mg oral tablet (1 source)Start: 08-02-2023 End: 02-89-1148qnfn 1 tablet by mouth at mealtimepredniSONE (DELTASONE) 20 mg tablet Take 1 tablet (20 mg total) by mouth in the morning for 7 days.Take with food. 7 tablet 0 08/02/2023 08/09/2023 ActivePrenatal 27-1 MG tablet (20 sources)take 1 tablet by mouth once dailyPrenatal 27-1 MG tablet Take 1 tablet by mouth Daily ActiveSemaglutide (Weight Loss) (1 source)Start: 68-93-7532Ejqzfqzpsjc (Weight Loss) (Wegovy) 0.25 mg/0.5 mL pen injector Active 0.25 MG SUBCUT every week February 28, 2024 12:00am administer weeks 1 through 4 of therapy Completed/Discontinued Medications MedicationDrug Class(es)DatesSig (Normalized)Sig (Original)24 hr buPROPion hydrochloride 150 mg extended release oral tablet (10 sources)AminoketoneStart: 03-06-2024 End: 54-30-0502cpyf 1 tablet by mouth every twenty-four hours in the morning buPROPion XL (Wellbutrin XL) 150 MG 24 hr tablet Take 150 mg by mouth in the morning. 03/06/2024 12/01/2024 DiscontinuedStart: 12-05-2023 End: 78-72-8706vsph 150 mg by mouth once daily in the morningBupropion Hcl Active 150 MG PO Every morning January 07, 2024 12:59pm End: 61-32-5342rwMIIGqop SR (Wellbutrin SR) 150 MG 12 hr tablet 12/01/2024 DiscontinuedDULoxetine 60 mg delayed release oral capsule (12 sources)Serotonin and Norepinephrine Reuptake InhibitorStart: 12-05-2023 End: 29-28-6745ywpa 1 capsule by mouth once dailyDuloxetine (Cymbalta) 30 mg capsule,delayed release(DR/EC) Discontinued 30 MG PO Daily 14 14 December 05, 2023 12:00am December 18, 2023 1:01pmStart: 01-09-2023 End: 62-52-6015zxlu 1 capsule by mouth once dailyDuloxetine (Cymbalta) 60 mg capsule,delayed release(DR/EC) Discontinued 60 MG PO Daily December 05, 2023 12:00am December 05, 2023 4:15pmethinyl estradiol 0.035 mg / norgestimate 0.25 mg oral tablet (8 sources)Progestin, EstrogenStart: 01-16-2024 End: 03-27-2308fakfdncvqkna-ethinyl estradiol (Ortho-Cyclen) 0.25-35 MG-MCG tablet Indications: Encounter for surveillance of contraceptive pills Take 1 tablet by mouth Daily 84 tablet 3 01/16/2024 12/01/2024 DiscontinuedStart: 74-85-9427oepo 1 tablet by mouth once dailyNorgestimate-Ethinyl Estradiol Active 1 TAB PO Daily December 05, 2023 12:00amStart: 80-13-6889syhz 1 tablet by mouth once in the morningnorgestimate-ethinyl estradioL (ORTHO-CYCLEN) 0.25-35 mg-mcg per tablet Take 1 tablet by mouth in the morning. 12/18/2022 ActiveStart: 37-18-9813zisk 1 tablet by mouth once in the morningnorgestimate-ethinyl estradioL (ORTHO-CYCLEN) 0.25-35 mg-mcg per tablet Take 1 tablet by mouth in the morning. 0 12/18/2022 Ypbqaf44 hr loratadine 10 mg / pseudoephedrine sulfate 240 mg extended release oral tablet (5 sources)alpha-Adrenergic AgonistStart: 08-02-2023 End: 38-00-5982wgyq 10-240 mg by mouth every twenty-four hours in the morning Loratadine-D 24HR 10-240 MG 24 hr tablet Take 1 tablet by mouth in the morning. 08/02/2023 12/01/2024 DiscontinuedStart: 08-02-2023 End: 22-48-8760kled 1 tablet by mouth once in the [...] unspecified; Translations: [Mixed anxiety and depressive disorder]Onset: 970757-23-3007JxczudxFbbaqxfnqzymw (5 sources)Endometriosis of pelvic peritoneum; Translations: [Endometriosis (clinical)]Onset: 988624-90-3732UjqlbibNuucaq infertility (2 sources)Female infertility; Translations: [Female infertility, unspecified] 28-82-2891MpazcepZgxpwedflsbm complicating ; childbirth and the puerperium (2 sources)-induced hypertension; Translations: [Gestational [-induced] hypertension withoutsignificant proteinuria, unspecified trimester]75-92-1702VwdzlcqsXedwbueupivuw and screening for infectious disease (3 sources)Encounter for screening for human papillomavirus (HPV); Translations: [Exposure to sexually transmissible disorder]Onset: 715225-58-6486Amlkirjf Menstrual disorders (7 sources)Excessive and frequent menstruation with regular cycle; Translations: [Dysmenorrhea, unspecified]Onset: 33-84-2566MpcdtkdOgfu disorders (2 sources)Major depression in full remission; Translations: [Major depressive disorder, single episode, in full remission]Onset: hronic Other complications of (4 sources)Vomiting of , unspecified; Translations: [Unspecified vomiting of , unspecified as to episode of care or not applicable] 91-41-0267OnovimnhEtoyj complications of (2 sources) size does not accord with dates; Translations: [Uterine size- date discrepancy, unspecified trimester]47-30-1031ErwhurzmGwjcc endocrine disorders (2 sources)Polycystic ovary syndrome; Translations: [Polycystic ovarian syndrome]04-51-6798RucfwdqHztrm female genital disorders (1 source)Unspecified dyspareunia; Translations: [UNSPECIFIED DYSPAREUNIA]Onset: 20-17-5383IwsuadpCueux female genital disorders (1 source)Abnormal uterine and vaginal bleeding, unspecified; Translations: [ABNORMAL UTERINE VAGINAL BLEED UNS]Onset: 96-75-8368HwfyfreBahnp female genital disorders (2 sources)Abnormal uterine bleeding; Translations: [Abnormal uterine and vaginal bleeding, unspecified]44-93-0727FyoridgTpeny female genital disorders (4 sources)Vaginal discharge; Translations: [Other specified noninflammatory disorders of vagina]54-67-4063XnteyzikIwxzb gastrointestinal disorders (2 sources)Constipation; Translations: [Constipation, unspecified]01-13-2025 EpisodicOther nutritional; endocrine; and metabolic disorders (1 source)Obesity, unspecified; Translations: [OBESITY UNSPECIFIED]Onset: 77-95-1658HmcgoquItlim nutritional; endocrine; and metabolic disorders (2 sources)Insulin resistance; Translations: [Insulin resistance]12-01-2024 ChronicOther and delivery including normal (16 sources); Translations: [Encounter for supervision of normal , unspecified, unspecified trimester]18-89-8030PlyatzoaXalxq screening for suspected conditions (not mental disorders or infectious disease) (8 sources)Encounter for screening for malignant neoplasm of cervix; Translations: [Patient encounter status]Onset: 55-45-8242WfpxdrmeUbrmwoywdaliqk and other problems of amniotic cavity (2 sources)Subchorionic hematoma; Translations: [Other specified disorders of amniotic fluid and membranes, first trimester, not applicable or unspecified] 57-78-2549IqslfiqvErfydtuz codes; unclassified (2 sources)Gestation period, 13 weeks; Translations: [13 weeks gestation of ]24-39-4658XtlzryhmGrofuozl codes; unclassified (2 sources)Gestation period, 17 weeks; Translations: [17 weeks gestation of ]37-16-3331MrqfgqqjWqgiaenm codes; unclassified (2 sources)Gestation period, 21 weeks; Translations: [21 weeks gestation of ]20-93-5791NlezokazUlbdxqxt codes; unclassified (2 sources)Gestation period, 24 weeks; Translations: [24 weeks gestation of ]66-08-5266GbnymwfzGrserkzw codes; unclassified (4 sources)Gestation period, 28 weeks; Translations: [28 weeks gestation of ]00-39-5044JtaktuzzVhthqeneibfr (1 source)CONTACT W/AND (SUSP) EXPOS COVID-19; Translations: [CONTACT W/AND (SUSP) EXPOS COVID-19]Onset: 95-89-8372Dsdmysswwckj (2 sources)pre employment; Translations: [pre employment]Onset: 03-04-2025 Past or Other Problems Problem ClassificationProblemDateDocumented DateEpisodic/ChronicAbdominal pain (1 source)Pelvic and perineal pain; Translations: [PELVIC AND PERINEAL PAIN] Onset: 88-57-1011SfskbfmkFnjb disorders (3 sources)Mood disorders; Translations: [DEPRESSION UNSPECIFIED]Onset: Other circulatory disease (1 source)Elevated blood pressure; Translations: [Elevated blood-pressure reading, without diagnosis of hypertension]13-97-8483WqwragarZijfb upper respiratory infections (1 source)Acute maxillary sinusitis; Translations: [Acute maxillary sinusitis, unspecified]06-73-1021SfdlbwcrJlugqs media and related conditions (1 source)Acute non-suppurative otitis media - serous; Translations: [Acute serous otitis media, bilateral]82-35-4415ClxmdwwjFuyhilbsltov (2 sources)Onset: Results Test NameValueInterpretationReference RangeFacilityUS OB FOLLOW UP TRANSABDOMINAL APPROACHon 78-44-1060UO OB FOLLOW UP TRANSABDOMINAL APPROACH FINDINGS: A [...] Delivery: 08/26/25 Gestational Age as of 06/08/2025: 35z5vWfcvpqbmca macro (dipstick) panel (U)on 73-39-5813Hyblzsasu, UANegativeNegative - 4(70) +++ mg/dLNOMS HealthcareBlood, UANegativeNegative [...] mg/dLNOMS HealthcareNOMS HealthcareUrinalysis macro (dipstick) panel (U)on 37-70-0843Bhvsaourl, UA NegativeNegative - 4(70) +++ mg/dLNOMS HealthcareBlood, UANegativeNegative - 50 Randall/mcLNOMS HealthcareClarity, UAClearNOMS HealthcareColor, UAYellowNOMS HealthcareGlucose, UANegativeNegative - 1999(110) ++++ mg/dLNOMS Healthcare Interpretation and review of laboratory resultsAbnormalNOMS HealthcareKetones, UANegativeNegative - 160(16) ++++ mg/dLNOMS HealthcareLeukocytes, UAPositive Negative - 500+++ [facility] PartnersNOMS HealthcareComment on above:1+Nitrite, UANegative Negative - PositiveNOMS HealthcarepH, UA6.05 - 9NOMS HealthcareProtein, UA PositiveNegative - 1999(20) ++++ mg/dLNOMS HealthcareSpec Grav, UA1.0201 - 1.03 NOMS HealthcareUrobilinogen, UA1.00.2 - 12 mg/dLNOMS HealthcareNOMS Healthcare Urinalysis macro (dipstick) panel (U)on 56-81-2664Ymocnkgax, UANegativeNegative - 4(70) +++ mg/dLNOMS HealthcareBlood, UANegativeNegative - 50 Randall/mcLNOMS HealthcareClarity, UAClearNOMS HealthcareColor, UAYellowNOMS HealthcareGlucose, UANegativeNegative - 1999(110) ++++ mg/dLNOMS HealthcareInterpretation and review of laboratory resultsAbnormalNOMS HealthcareKetones, UANegativeNegative - 160(16) ++++ mg/dLNOMS HealthcareLeukocytes, UA3+Negative - 500+++ [facility] Health PartnersNOVA HealthcareNitrite, UANegativeNegative - PositiveNOMS HealthcarepH, UA8.55 - 9 NOMS HealthcareProtein, UATraceNegative - 1999(20) ++++ mg/dLNOMS HealthcareSpec Grav, UA1.011 - 1.03NOMS HealthcareUrobilinogen, UA2.00.2 - 12 mg/dLNOMS HealthcareNOMS HealthcareIGP,APTIMA HPV,AGE GDLNon 80-13-1054WIH GDLN ACOG TESTINGNote.[facility] HealthcareComment on above:TESTS RESULT FLAG UNITS REF RANGE LAB Clinician Provided Cytology Information Source.............Endocervix Other.............. No. of containers..01 ThinPrep Vial Age Madhu CRANE Millie... FLAG LEGEND: L-Low Normal,H-High Normal,LL-Alert Low,HH-Alert High <-Panic Low,>-Panic High,A-Abnormal,AA-Critical Abnormal Performed at: 01 =[facility] [address] [place] [address] Beverly Nguyen MD, IGP, RFX APTIMA HPV ASCUNote.NOMS HealthcareComment on above:TESTS RESULT FLAG UNITS REF RANGE LAB DIAGNOSIS: 02 NEGATIVE FOR INTRAEPITHELIAL LESION OR MALIGNANCY. FUNGAL ORGANISMS MORPHOLOGICALLY CONSISTENT WITH ROSALBA SPECIES ARE PRESENT. Specimen adequacy: 02 Satisfactory for evaluation. Endocervical and/or squamous metaplastic cells (endocervical component) are present. Performed by: 02 Sonia Beckham, Cut In Worker ([facility]) . 02 Note: Note 02 The Pap [...] High <-Panic Low,>-Panic High,A-Abnormal,AA-Critical Abnormal Performed at: [address] [place] [id number] Beverly Nguyen MD, Performed at: = - [address] [id number] Disability Program Navigator: Beverly Nguyen MD, Phone: [phone] Performed at: [address] [id number] Disability Program Navigator: Beverly Nguyen MD, Phone: [phone] SPATULA-ALONE ENDOCERVIX CLINISYNCNOMS HealthcareAFP, SERUM, OPEN SPINA BIFIDAon 23-91-4740CAC MOM1.10. [facility] HealthcareAFP VALUE34.4 ng/mL.[facility] HealthcareCOMMENT:Comment.[facility] HealthcareComment on above:Giselle Merida, Ph.D., [facility] Director References: Available Upon Request. Multiples Of Median Cutoffs For AFP Elevations Sellers 2.5 Black 2.8 IDD 2.0 Twins 4.5 Abbreviation Definitions IDD - Insulin Dep Diabetes OSBR - Open Spina Bifida Risk For further inquiries contact [facility] at [phone]. This test was developed and its performance characteristics determined by [facility]. It has not been cleared or approved by the Food and Drug Administration. Performed at: - [facility] [address], [place], [place] [id number] Disability Program Navigator: Nirmal Means [facility], Phone: [phone] GEST. AGE ON COLLECTION DATE17.0. weeksNOVA HealthcareGESTAT. AGE BASED ONLMP. NOMS HealthcareComment on above:Recalculations are not recommended when gestational dating by LMP and ultrasound are within 10 days. INSULIN DEP DIABETESNo.NOM HealthcareINTERPRETATIONComment.[facility] Healthcare Comment on above:Interpretation: Screen Negative [...] Customer Services to discuss available options. The [place] [employer] recommends amniocentesis be offered to women age 35 and older. MATERNAL AGE AT EDD25.9. yrNOVA HealthcareMULTIPLE GESTATIONNo.[facility] OSBR RISK 1 [id number].[facility] HealthcareRACECaucasian.[facility] CenterRESULTSReport. [facility] CenterTEST RESULTS:Negative.[facility] XaitoycrbaIFGNCL599. lbsNOMS HealthcarePREGNANCY N N LMP [id number] 0 17 N 1 Y 206 N N N N N White/ CLINISYNCNOMS HealthcareRECURRENT VAGINITIS (HTRX)on 99-78-8461PBTXDMZLA VAGINAE 0NOMS HealthcareATOPOBIUM VAGINAENot detectedNOMS HealthcareBVAB 2,3 (BACTERIAL VAGINOSIS ASSOCIATED BACTERIA 2, 3); MOBILUNCUS YLX0TLRS HealthcareBVAB 2,3 (BACTERIAL VAGINOSIS ASSOCIATED BACTERIA 2, 3); MOBILUNCUS SPPNot detectedNOMS HealthcareCANDIDA ALBICANS, PARAPSILOSIS, JLMAJOQBMX93.725AbnormalNOMS HealthcareCANDIDA ALBICANS, PARAPSILOSIS, TROPICALISDetectedAbnormalNOMS HealthcareCANDIDA MXBMNCKB0LUSH HealthcareCANDIDA GLABRATANot detectedNOMS HealthcareCANDIDA FOVPRO7WCBN HealthcareCANDIDA KRUSEINot detectedNOMS HealthcareCHLAMYDIA LJKWMPRVEWE7LCCM HealthcareCHLAMYDIA TRACHOMATISNot detected NOMS HealthcareGARDNERELLA BRGTSPHVF04.732AbnormalNOMS HealthcareGARDNERELLA VAGINALISDetectedAbnormalNOMS HealthcareInterpretation and review of laboratory resultsAbnormalNOMS HealthcareMEGASPHAERA (TYPES 1, 2)0[facility] MEGASPHAERA (TYPES 1, 2)Not detectedNOMS HealthcareMYCOPLASMA ELUIWOHTDZ2RSAI HealthcareMYCOPLASMA GENITALIUMNot detectedNOMS HealthcareNEISSERIA GONORRHOEAE0 NOMS HealthcareNEISSERIA GONORRHOEAENot detectedNOMS HealthcareTRICHOMONAS GUJMVBLXC4BHOH HealthcareTRICHOMONAS VAGINALISNot detectedNOMS HealthcareNOMS HealthcareUS OB LIMITED 1+ FETUSESon 72-77-5146VA OB LIMITED 1+ FETUSESFINDINGS: Cephalic presentation. Anterior [...] was 11/19/2024 (approximate).Urinalysis macro (dipstick) panel (U)on 49-42-3126Vvrjdaeog, UANegativeNegative - 4(70) +++ mg/dL NOMS HealthcareBlood, UANegativeNegative - 50 Randall/mcLNOMS HealthcareClarity, UA ClearNOMS HealthcareColor, UAYellowNOMS HealthcareGlucose, UANegativeNegative - 1999(110) ++++ mg/dLNOVA HealthcareInterpretation and review of laboratory resultsAbnormalNOVA HealthcareKetones, UANegativeNegative - 160(16) ++++ mg/dL NOMS HealthcareLeukocytes, UAPositiveNegative - 500+++ Johnson/mcLNOMS Healthcare Comment on above:3+Nitrite, UANegativeNegative - PositiveNOMS HealthcarepH, UA75 - 9NOMS HealthcareProtein, UANegativeNegative - 2000(20) ++++ mg/dLNOMS HealthcareSpec Grav, UA1.021 - 1.03NOVA HealthcareUrobilinogen, UA1.00.2 - 12 mg/dLNOBarnes-Jewish HospitalNOVA HealthcareQuantiFERON Tbon 16-41-3797ZGL InterNegative NormalNEGKettering Health HamiltonComsturgis hospital on above:Result Comment: Quantiferon TB Gold [...] Mycobacterium tuberculosis Infection -- [place], 2010 (http://www.cdc.gov/mmwr/preview/mmwrhtml/fo2847o9.htm), for more information concerning test performance in low-prevalence populations and use in occupational screening.Performed By: #### QFTB #### [employer] [address] [place], [place] [address] Disability Program Navigator: Hamlet Cai Juan minus NIL9.92 IU/mLNormalKettering Health HamiltonComsturgis hospital on above:Performed By: #### QFTB #### [employer] [address] [place], [place] [address] Disability Program Navigator: Hamlet Caii TB1 minus NIL0.00 IU/mLNormal0.00-0.34 [facility] HamiltonComsturgis hospital on above:Performed By: #### QFTB #### [employer] [address] [place], [place] [address] Disability Program Navigator: Lance Chester MDQuanti TB2 minus NIL0.00 IU/mLNormal0.00-0.34 [facility] HamiltonComment on above:Performed By: #### QFTB #### [facility] [address] [place], [place] [address] Disability Program Navigator: Lance Chester MDQuantiFERON NIL0.08 IU/mLNormalKettering Health HamiltonComment on above:Performed By: #### QFTB #### [facility] [address] [place], [place] [id number] Disability Program Navigator: Lance Chester MDUrinalysis macro (dipstick) panel (U)on 75-91-7709Plpnnipxn, UANegativeNegative - 4(70) +++ mg/dLNOMS HealthcareBlood, UANegativeNegative [...] - 12 mg/dLNOMS HealthcareNOMS HealthcareUS OB TRANSVAGINALon 59-90-6572X[address] [address] Ultrasound Report Signed Patient: MEREDITH TEMPLETON MR#: [id number] : 2000 Acct:[id number] Age/Sex: 24 / F ADM Date: 02/11/25 Loc: US Attending Dr: Abad Canchola D.O. Ordering Physician: Abad Canchola D.O. Date of Service: 02/11/25 Procedure(s): US OB transvaginal Accession Number(s): [id number] cc: Michelle Pabon M.D.; Abad Canchola D.O. [place] [address] Patient Name: MEREDITH TEMPLETON MRN: [id number] date: 2000 Sex: F Assigned Patient Location: US Current Patient Location: US Accession/Order Number: [id number] Exam Date: 02/11/2025 09:39 Report Date: 02/11/2025 [...] Gillette M.D. 02/11/2025 9:43 AM Dictation Location: [place] [address] Electronically authenticated by: [id number] Y Date: 02/11/2025 09:43 Dictated By: Misa Gillette M.D. Signed By: 02/11/2546 DD/ 2 TD/TT: Milk Powder Grinder:SHERRIEadiology, Radiologist, - 02/11/[address] [address] Ultrasound Report Signed Patient: MEREDITH TEMPLETON MR#: [id number] : 2000 Acct:[id number] Age/Sex: 24 / F ADM Date: 02/11/25 Loc: US Attending Dr: Abad Canchola D.O. Ordering Physician: Abad Canchola D.O. Date of Service: 02/11/25 Procedure(s): US OB transvaginal Accession Number(s): [id number] cc: Michelle Pabon M.D.; Abad Canchola D.O. The [place] [id number] Patient Name: MEREDITH TEMPLETON MRN: [id number] date: 2000 Sex: F Assigned Patient Location: US Current Patient Location: US Accession/Order Number: [id number] Exam Date: 02/11/2025 09:39 Report Date: 02/11/2025 [...] Gillette M.D. 02/11/2025 9:43 AM Dictation Location: [place] [address] Electronically authenticated by: [id number] Y Date: 02/11/2025 09:43 Dictated By: Misa Gillette M.D. Signed By: 02/11/2546 DD/ 2 TD/TT: Milk Powder Grinder: [facility] CenterRadiology Study observation (narrative)[facility] CenterUS OB TRANSVAGINALOrdered By: Radiologist Radiology on 67-22-2480LRNFSt. Joseph Medical Center Work Phone: HCG ( test) Ql (U)on 43-53-1260Fbsbtvdoryovqi and review of laboratory resultsAbnormalNOBarnes-Jewish HospitalPreg Test, UrPositive NegativeNOAscension Northeast Wisconsin Mercy Medical CenterMLR HEMOGLOBIN A1Con 55-42-6376Qkzohxx [Mass/Vol]91 mg/dLSt. Joseph Medical CenterHbA1c (Bld) [Mass fraction]4.8 %4.5 - 6.2 %[facility] CenterComment on above:ADA RECOMMENDED LIMIT 4.0 - 6.0 ADA THERAPEUTIC TARGET < 7.0 ACTION SUGGESTED > 7.0 CLINISYNCNOVA HealthcareUS OB TRANSVAGINALon 37-05-2802LS OB TRANSVAGINALEXAM: US OB TRANSVAGINAL HISTORY: Dating. [...] II, MD, PHD at 22-Jan-2025 10:24:02 AM [facility] TeleradiologyNormalNot AvailableComment on above:Order Comment: US OB TRANSVAGINAL Patient's last menstrual period was 11/19/2024 (approximate).Urinalysis macro (dipstick) panel (U)on 98-56-3669Qtthzbkew, UANegativeNegative - 4(70) +++ mg/dL [facility] HealthcareBlood, [...] HealthcareNOMS Healthcare Urinalysis macro (dipstick) panel (U)on 23-74-1905Qqdzdpkmp, UANegativeNegative - 4(70) +++ mg/dLNOMS HealthcareBlood, UANegativeNegative - 50 Randall/mcLNOMS HealthcareClarity, UAClearNOMS HealthcareColor, UAYellowNOMS HealthcareGlucose, UANegativeNegative - 1999(110) ++++ mg/dLCACHE VALLEY [facility]PITAL HealthcareInterpretation and review of laboratory resultsAbnormalNOVA HealthcareKetones, UANegativeNegative - 160(16) ++++ mg/dLCACHE VALLEY [facility]OSPITAL HealthcareLeukocytes, UAPositiveNegative - 500+++ Johnson/mcL [facility] HealthcareComment on above:LargeNitrite, UANegativeNegative - PositiveNOVA HealthcarepH, UA75 - 9NOMS HealthcareProtein, UANegativeNegative - 2000(20) ++++ mg/dLCACHE VALLEY HOSPITAL HealthcareSpec Grav, UA1.0151 - 1.03NOVA HealthcareUrobilinogen, UA0.2 0.2 - 12 mg/dLFulton Medical Center- Fulton HealthcareALL CBC WITH AUTO DIFFon 12-01-2024 BASOPHILS ABSOLUTE AUTO0.1NOMS HealthcareBasophils/100 WBC (Bld)0.5 %0.2 - 2.0 % [facility] CenterEosinophils/100 WBC (Bld)2.6 %0.9 - 7.0 %[facility] Erythrocyte distribution width (RBC) [Ratio]12.2 %11.0 - 15.0 %[facility] Hematocrit (Bld) [Volume fraction]42.8 %36.0 - 48.0 %[facility] CenterHemoglobin (Bld) [Mass/Vol]14.8 g/dL12.0 - 16.0 g/dLSt. Joseph Medical CenterIMMATURE GRANULOCYTES ABS AUTO0.01NOBarnes-Jewish HospitalImmature granulocytes/100 WBC (Bld)0.1 %0.0 - 0.5 % [facility] CenterLYMPHOCYTES ABSOLUTE AUTO2.8NOBarnes-Jewish HospitalLymphocytes/100 WBC (Bld)29.5 %20.5 - 60.0 %[facility]H (RBC) [Entitic mass]29.6 pg26.7 - 34.0 pgCox NorthHC (RBC) [Mass/Vol]34.6 g/dL29.9 - 35.2 g/dLCox NorthV (RBC) [Entitic vol]85.6 fL81.0 - 99.0 fLSt. Joseph Medical CenterMONOCYTES ABSOLUTE AUTO0.6NOBarnes-Jewish HospitalMonocytes/100 WBC (Bld)5.8 %1.7 - 12.0 %[facility] HealthcareNEUTROPHILS ABSOLUTE AUTO5.8NOMS HealthcareNeutrophils/100 WBC (Bld) 61.5 %43.0 - 75.0 %NOMS HealthcarePlatelet mean volume (Bld) [Entitic vol]10 fL 9.5 - 13.5 fLNOMS HealthcareTBH EO #0.3NOMS HealthcareTBH KHT361YJUZ Healthcare TBH WHT4CLFP HealthcareTBH WBC9.5NOMS HealthcareCLINISYNCNOMS HealthcareHCG ( test) Ql (U)on 07-47-9570Ogitpvsozgmfui and review of laboratory resultsNormalSt. Joseph Medical CenterPreg Test, UrNegativeNegativeNOMercy Hospital Joplin HealthcareUrinalysis macro (dipstick) panel (U)on 15-99-4295Nnmbhkkpp, UA NegativeNegative - 4(70) +++ mg/dLNOVA HealthcareBlood, UANegativeNegative - 50 Randall/mcLNOVA HealthcareClarity, UAClearNOVA HealthcareColor, UAYellowNOVA HealthcareGlucose, UANegativeNegative - 2000(110) ++++ mg/dLSt. [facility] Interpretation and review of laboratory resultsAbnormalCACHE VALLEY HOSPITAL HealthcareKetones, UANegativeNegative - 160(16) ++++ mg/dLSt. Joseph Medical CenterLeukocytes, UAPositive Negative - 500+++ Johnson/mcLNOVA HealthcareComment on above:smallNitrite, UA NegativeNegative - PositiveNOVA HealthcarepH, UA75 - 9NOMS HealthcareProtein, UA NegativeNegative - 2000(20) ++++ mg/dLNOVA HealthcareSpec Grav, UA1.011 - 1.03 [facility] CenterUrobilinogen, UA0.20.2 - 12 mg/dLNOMS [facility] County HospitalNOVA Healthcare IGP,APTIMA HPV,AGE GDLNon 77-82-9937DYE GDLN ACOG TESTINGNote.[facility] Comment on above:TESTS RESULT FLAG UNITS REF RANGE LAB Clinician Provided Cytology Information Source.............Cervix;Endocervix No. of containers..01 ThinPrep Vial Phan Pinto... FLAG LEGEND: L-Low Normal,H-High Normal,LL-Alert Low,HH-Alert High <-Panic Low,>-Panic High,A-Abnormal,AA-Critical Abnormal Performed at: 01 =G [facility] [address] Beverly Nguyen MD, IGP, RFX APTIMA HPV ASCUNote.[facility] Medical CenterComment on above:TESTS RESULT FLAG UNITS REF RANGE LAB DIAGNOSIS: 02 NEGATIVE FOR INTRAEPITHELIAL LESION OR MALIGNANCY. Specimen adequacy: 02 Satisfactory for evaluation. No endocervical component is identified. Performed by: Pricila Smith, Life Insurance Underwriter ([facility]) . 02 Note: Note 02 The Pap [...] <-Panic Low,>-Panic High,A-Abnormal,AA-Critical Abnormal Performed at: [address] [address] Beverly Nguyen MD, Performed at: = - [address] [id number] Disability Program Navigator: Beverly Nguyen MD, Phone: [phone] Performed at: [facility] [address] [id number] Disability Program Navigator: Beverly Nguyen MD, Phone: [phone] BRUSH-SPATULA CERVIX ENDOCERVIX CLINISYNCNOMS HealthcareComprehensive Metabolic Panelon 13-15-5785Bvqgstq [Mass/Vol]4.2 g/dLNormal3.5-5.0[facility] CenterComment on above:Order Comment: Ordered by ANNEL Loving By: #### KEIRA, [id number] #### [place] [address] Ph. [phone] [Catalytic activity/Vol]77 U/KRfnyne69-233SxymrtxMercy Health Tiffin HospitalComment on above:Order Comment: Ordered by ANNEL Loving By: #### KEIRA, [id number] #### [address] [address] Ph. [phone] [Catalytic activity/Vol]29 U/LNormal0-35WMercy Health Tiffin HospitalComment on above:Order Comment: Ordered by ANNEL KUNSPerformed By: #### CMP, [id number] #### [place] [address] Ph. [phone] [Catalytic activity/Vol]30 U/LBegyxa14-24ZzrumybMercy Health Tiffin HospitalComment on above:Order Comment: Ordered by ANNEL Loving By: #### CMP, [id number] #### [place] [address] Ph. [phone] [Mass/Vol]0.4 mg/dLNormal0.2-1.3WMercy Health Tiffin HospitalComment on above:Order Comment: Ordered by ANNEL Loving By: #### CMP, [id number] #### [place] [address] Ph. [phone] [Mass/Vol]9.2 mg/dLNormal8.4-10.2WMercy Health Tiffin HospitalComment on above:Order Comment: Ordered by ANNEL Loving By: #### CMP, [id number] #### [place] [address] Ph. [phone] [Moles/Vol]101 mmol/RHlgwjr26-163JzbhfetMercy Health Tiffin HospitalComment on above:Order Comment: Ordered by ANNEL Loving By: #### CMP, [id number] #### [place] [address] Ph. [phone] [Moles/Vol]25 mmol/QYzhzgh57-62AhoddljMercy Health Tiffin Hospital Comment on above:Order Comment: Ordered by NANEL Loving By: #### CMP, [id number] #### [place] [address] Ph. [phone] [Mass/Vol]0.71 mg/dLNormal0.52-1.04WMercy Health Tiffin HospitalComment on above:Order Comment: Ordered by ANNEL Loving By: #### CMP, [id number] #### [address] [address] Ph. [phone]/1.73 sq M.predicted among non-blacks MDRD (S/P/Bld) [Vol rate/Area]122 mL/min/{1.73_m2}Normal>60WMercy Health Tiffin HospitalComment on above:Order Comment: Ordered by ANNEL Reynoso Comment: GFR calculated using CKD-EPI (2020) formula.\X0D0A\Stage 1 Kidney damage (e.g., protein in the urine) with normal GFR >=90\X0D0A\Stage 2 Kidney damage with mild decrease in GFR 60-8 9\X0D0A\Stage 3a Moderate decrease in GFR 45-59\X0D0A\Stage 3b Moderate decrease in GFR 30-44\X0D0A\Stage 4 Severe reduction in GFR 15-29\X0D0A\Stage 5 Kidney failure <15Performed By: #### CMP, [id number] #### [address] [address] Ph. [phone] [Mass/Vol]85 mg/ySTxfqky79-939RgcxjiaSalem Regional Medical Center Comment on above:Order Comment: Ordered by ANNEL Loving By: #### CMP, [id number] #### [address] [address] Ph. [phone] [Moles/Vol]4.1 mmol/LNormal3.6-5.0WMercy Health Tiffin HospitalComment on above:Order Comment: Ordered by ANNEL Loving By: #### CMP, [id number] #### [address] [address] Ph. [phone] [Mass/Vol]8.0 g/dLNormor6.3-8.2[facility] Comment on above:Order Comment: Ordered by ANNEL Loving By: #### CMP, [id number] #### [address] [place] [address] Ph. [phone] [Moles/Vol]137 mmol/BKsfrin004-875SdudupoMercy Health Tiffin HospitalComment on above:Order Comment: Ordered by ANNEL Gonzalezformed By: #### CMP, [id number] #### [address] [place] [address] Ph. [phone] nitrogen [Mass/Vol]10 mg/dLNormal7-17WMercy Health Tiffin HospitalComment on above:Order Comment: Ordered by ANNEL Gonzalezformed By: #### CMP, [id number] #### [place] [address] Ph. [phone] [Mass/Vol]4.2 g/dL3.5 - 5.0 g/dLWYANDOTALP (Bld) [Catalytic activity/Vol]77 U/L38 - 126 U/LWYANDOTALT [Catalytic activity/Vol]29 U/L0 - 35 U/LWYANDOTAST [Catalytic activity/Vol]30 U/L14 - 36 U/LWYANDOT Bilirubin [Mass/Vol]0.4 mg/dL0.2 - 1.3 mg/dLWYANDOTCalcium [Mass/Vol]9.2 mg/dL 8.4 - 10.2 mg/dLWYANDOTChloride [Moles/Vol]101 mmol/LWYANDOTCO2 [Moles/Vol]25 mmol/LWYANDOTCreatinine [Mass/Vol]0.71 mg/dL0.52 - 1.04 mg/dLWYANDOTGFR, Bpcgtrecq221- PINFWYANDOTComment on above: GFR calculated using CKD-EPI [...] mg/dL7 - 17 mg/dLWYANDOTOrdered by ANNEL FINN [facility] HOSPITALEZRATTSH Reflex FT4on 01-70-5221YXO1.420 mIU/mLNormal0.470-4.680WTwin City Hospital on above:Order Comment: Ordered by ANNEL Gonzalezformed By: #### CMP, [id number] #### [place] [address] Ph. [phone] with Reflexon [id number] Qn2.420 m[IU]/LWYANDOTOrdered by [facility] BASILMELISSA MEMORIAL HOSPITALWYANDOTPAP ACOG PANEL 2: to 03-01-2022.. NormalThe [facility] Ontario HospitalComment on above:Performed By: #### [id number] #### [facility] [address] [place] [address] Dr. Dallas Kaplan Gdln ACOG Vyghgtu16-49XbtortGydSalem City HospitalComsturgis hospital on above:Performed By: #### [id number] #### [facility] [address] [place] [address] Dr. Dallas WolfDIAGNOSIS:CommentUniversity Hospitals Geneva Medical Center on above: Result Comment: NEGATIVE FOR INTRAEPITHELIAL LESION OR MALIGNANCY.Performed By: #### [id number] #### [facility] [address] [place] [address] Dr. Dallas WolfMethodology:CommentUniversity Hospitals Geneva Medical Center on above: Result Comment: This liquid based ThinPrep(R) pap test was screened with the use of an image guided system.Performed By: #### [id number] #### [facility] [address] [place] [address] Dr. Dallas WolfNote:CommentUniversity Hospitals Geneva Medical Center on above:Result Comment: The Pap smear is a screening test designed to aid in the detection of premalignant and malignant conditions of the uterine cervix. It is not a diagnostic procedure and should not be used as the sole means of detecting cervical cancer. Both false-positive and false-negative reports do occur. .Performed By: #### [id number] #### [facility] [address] [place] [address] Dr. Dallas WolfPerformed by:CommentUniversity Hospitals Geneva Medical Center on above: Result Comment: Nikolay Smith, Life Insurance Underwriter ([employer])Performed By: #### [id number] #### [place] [address] Dr[address] Dallas WolfReflex Criteria:[facility] on above:Result Comment: The HPV DNA reflex criteria were not met with this specimen result therefore, no HPV testing was performed. .Performed By: #### [id number] #### [place] [address] Dr[address] Dallas WolfSpecimen adequacy:[facility] on above:Result Comment: Satisfactory for evaluation. Endocervical and/or squamous metaplastic cells (endocervical component) are present.Performed By: #### [id number] #### [place] [address] Dr[address] Dallas Jackson AUTO DIFFon [id number] #0.1 103/ulNormal0.0-0.1The [facility] Hospitalment on above:Performed By: #### CBC #### [facility] [address] [place] [address] Dr. Dallas WolfBasophils/100 WBC (Bld)0.8 %Normal0.2-2.0[facility] Comment on above:Performed By: #### CBC #### [facility] [address] [place] [address] Dr. Dallas Huggins #0.3 103/ulNormal0.0-0.7The [facility] on above: Performed By: #### CBC #### [facility] [address] [address] [address] Dallas Mosleyosinophils/100 WBC (Bld)4.1 %Normal0.9-7.0The [facility] Comment on above:Performed By: #### CBC #### [facility] [address] [place] [address] Dr. Dallas Mosleyrythrocyte distribution width (RBC) [Ratio]13.0 %Lqyeet03.0-15.0 The [facility] HospitalComment on above:Performed By: #### CBC #### [facility] [address] [place] [address] Dr. Dallas WolfHematocrit (Bld) [Volume fraction]43.4 %Lhlbpe82.0-48.0The [facility] HospitalComment on above:Performed By: #### CBC #### [facility] [address] [place] [address] Dr. Dallas WolfHemoglobin (Bld) [Mass/Vol]14.5 g/lAIozmnz97.0-16.0The [facility] HospitalComment on above:Performed By: #### CBC #### [facility] [address] [place] [address] Dr. Dallas Ortez #0.02 10e3/ulNormal0.00-0.03The [facility] HospitalComment on above:Performed By: #### CBC #### [facility] [address] [place] [address] Dr. Dallas WolfIG %0.3 %Normal0.0-0.5The [facility] Hospitalment on above: Performed By: #### CBC #### [facility] [address] [place] [address] Dr. Dallas OsheaMPH #2.2 103/ulNormal1.2-3.8The [facility] HospitalComment on above:Performed By: #### CBC #### [facility] [address] [place] [address] Dr. Dallas Osheamphocytes/100 WBC (Bld)28.1 %Klwucn89.5-60.0The [facility] HospitalComment on above:Performed By: #### CBC #### [facility] [address] [address] [address] Dallas Cifuentes DIFF REQNONormalThe [facility] HospitalComment on above: Performed By: #### CBC #### [facility] [address] [place] [address] Dr. Dallas Hernandez (RBC) [Entitic mass]28.5 ubGbneww69.7-34.0The [facility] HospitalComment on above:Performed By: #### CBC #### [facility] [address] [place] [address] Dr. Dallas Hernandez (RBC) [Mass/Vol]33.4 g/tOMumncz51.9-35.2The [facility] HospitalComment on above:Performed By: #### CBC #### [facility] [address] [place] [address] Dr. Dallas Hernandez (RBC) [Entitic vol]85.3 oIThzdzf94.0-99.0The [facility] HospitalComment on above:Performed By: #### CBC #### [facility] [address] [place] [address] Dr. Dallas Smith #0.6 103/ulNormal0.3-0.8The [facility] HospitalComment on above:Performed By: #### CBC #### [facility] [address] [place] [address] Dr. Dallas Medranoocytes/100 WBC (Bld)7.9 %Normal1.7-12.0The [facility] Comment on above:Performed By: #### CBC #### [facility] [address] [place] [address] Dr. Dallas Garcia #4.6 103/ulNormal1.4-6.5The [facility] HospitalComment on above:Performed By: #### CBC #### [facility] [address] [place] [address] Dr. Dallas Novautrophils/100 WBC (Bld)58.8 %Mqlbzo09.0-75.0The [facility] Hospitalment on above:Performed By: #### CBC #### [facility] [address] [address] [address] Dallas Loulet mean volume (Bld) [Entitic vol]9.6 fLNormal9.5-13.5The [facility] on above:Performed By: #### CBC #### [facility] [address] [address] [address] Dallas WolfPLT242 103/lpUnwhef904-855Cpz [facility] HospitalComment on above: Performed By: #### CBC #### [facility] [address] [place] [address] Dr. Dallas WolfRBC5.09 106/ulNormal4.20-5.40[facility] on above:Performed By: #### CBC #### [facility] [address] [place] [address] Dr. Dallas WolfWBC7.8 103/ulNormal4.0-11.0The [facility] HospitalComment on above: Performed By: #### CBC #### [facility] [address] [place] [address] Dr. Dallas WolfPREElise QUANT HCGon 13-41-8239JRA QUANT<1NormalMercy Health [facility] Comment on above:Performed By: #### PREGQNT #### [facility] [address] [place] [address] Dr. Dallas WolfHCElise RANGESEE [facility]e [facility] HospitalComment on above: Result Comment: 5-50 0-1 WEEK 40-300 1-2 WEEKS 100-1,000 2-3 WEEKS 500-6,000 3-4 WEEKS 5,000-200,000 1-2 MONTHS 10,000-100,000 2-3 MONTHS 3,000-50,000 2ND TRIMESTER 1,000-50,000 3RD TRIMESTERPerformed By: #### PREGQNT #### [facility] [address] [place] [address] Dr. Dallas WolfCovid-19 PCR (CVDTBH)on 58-41-3926RRDJ-CoV-2 (COVID-19) RNA SANJANA+probe Ql (Unsp spec)Not detectedNormalNOT DETECTEDThe [facility] Comment on above:Result Comment: This test is not yet approved or cleared by the [place] FDA. When there are no FDA-approved or cleared tests available, and other criteria are met, FDA can make tests available under an emergency access mechanism called an Emergency Use Authorization (EUA). The EUA for this test is supported by the [place] of Health and Human Service's (HHS's) declaration [...] consistent with SARS-CoV-2.Performed By: #### CVDTB #### [facility] [address] [place] [address] Dr. Dallas Wolf Vital Signs Date TimeVital SignValuePerforming QgntvkwwnBcvgbkud77-92-8058 15:50-0500Body mass index (BMI) [Ratio]35.19 kg/q7Bbpzf Jesika DO Work Phone: [employer] Fvygsjyvmo65-76-9886 15:50-0500Body .88 kgCorey Jesika DO Work Phone: [phone]-Jewish HospitalBdizgdmzgv89-72-2514 15:50-0500Diastolic blood wxejhrfy11 mm[Hg]Abad Jesika DO Work Phone: [facility]S HealthcareComment on above:130/ 15:50-0500Systolic blood mm[Hg]Abad Jesika DO Work Phone: [facility] HealthcareComment on above:130/9290-67-1368 08:41-0400Body mass index (BMI) [Ratio]34.4 kg/m2Amy Gregorio PA Work Phone: [facility] CenterDlwlsyvuuk10-31-2560 08:41-0400Body ueinyk35.67 kgShagufta Perkins PA Work Phone: [facility] CenterSwcpiendcd82-14-8673 08:41-0400Diastolic blood mm[Hg]Shagufta Perkins PA Work Phone: [facility] CenterIvnxkncvny52-16-7135 08:41-0400Systolic blood yrdiuklx567 mm[Hg]Shagufta Perkins PA Work Phone: [phone]-[facility] CenterSt. [facility] Medical CenterNwqbpafsdv95-00-9730 08:33-0400Body mass index (BMI) [Ratio]33.59 kg/x2Gccftxwa Kirill ENTHONE SOLDER STRIPPER Work Phone: [facility] CenterEwdcjfiwbx34-84-3564 08:33-0400Body .4 kg Say Kirill ENTHONE SOLDER STRIPPER Work Phone: [facility] CenterVexrghzlno23-48-8774 08:33-0400Diastolic blood htpebrly51 mm[Hg]Say Cosemerly ENTHONE SOLDER STRIPPER Work Phone: [phone]-[facility] CenterGjieeeeirl41-14-8140 08:33-0400Systolic blood ritzhfiv870 mm[Hg]Say Cosmeerly ENTHONE SOLDER STRIPPER Work Phone: [phone]-[facility] CenterZlemctrelg60-49-1715 10:35-0400Body mass index (BMI) [Ratio]33.25 kg/q3Gptmj Jesika DO Work Phone: [facility] CenterRfflcwwsds19-42-6943 10:35-0400Body kmjswu31.44 kgCorey Jesika DO Work Phone: [phone]-[facility] CenterIeknxdvqrg39-61-8526 10:35-0400Diastolic blood ldzfplxy59 mm[Hg]Abad Jesika DO Work Phone: [phone]-[facility] CenterByyqahiwnt42-42-1226 10:35-0400Systolic blood pkvstgez446 mm[Hg]Abad Jesika DO Work Phone: [phone]-[facility] CenterSt. [facility] Medical CenterSashtlqggt60-20-7691 10:37-0400Body mass index (BMI) [Ratio]33.31 kg/m2Amy Gregorio PA Work Phone: [facility] CenterAyvztdkhtz25-25-2744 10:37-0400Body blvnad59.62 kgShagufta Perkins PA Work Phone: [facility] CenterDxlcgbitqy57-39-1702 10:37-0400Diastolic blood vuwwkiym14 mm[Hg]Shagufta Perkins PA Work Phone: [facility] CenterJnbkrxyojp36-07-7944 10:37-0400Systolic blood eteypnml711 mm[Hg]Shagufta Perkins PA Work Phone: [phone] [place], [place] [address]Mxnbecqkgx64-69-9478 08:55-0400Body mass index (BMI) [Ratio]33.25 kg/r7Jkrwb Jesiak DO Work Phone: [facility] CenterSfulwhfobz21-13-4522 08:55-0400Body .44 kgCorey Jesika DO Work Phone: [facility] CenterDxeymmsxnw57-44-3167 08:55-0400Diastolic blood ngbymsjc11 mm[Hg]Abad Jesika DO Work Phone: [phone] [place], [place] [address]Uzajrakxoc04-52-6176 08:55-0400Systolic blood kwforism960 mm[Hg]Abad Jesika DO Work Phone: [facility] CenterAwjaigtksc05-86-3872 09:14-0400Body mass index (BMI) [Ratio]33.89 kg/w5HwxoognpSay Roy ENTHONE SOLDER STRIPPER Work Phone: [facility] CenterTogcbpknzi99-69-6652 09:14-0400Body .25 kgSay Friedmanly ENTHONE SOLDER STRIPPER Work Phone: [facility] CenterUpfoyugnch41-95-1929 09:14-0400Diastolic blood frylcicn06 mm[Hg]Say Roy ENTHONE SOLDER STRIPPER Work Phone: [facility] CenterEbxznbwljq89-74-1909 09:14-0400Systolic blood mm[Hg]Say Roy ENTHONE SOLDER STRIPPER Work Phone: [phone]-[facility] CenterTmkqmgbjij56-99-3276 11:00-0400Body mass index (BMI) [Ratio]35.32 kg/s9Ierut Jesika DO Work Phone: [facility] CenterAskrjsjfbk22-61-6371 11:00-0400Body ugcyns70.25 kgCorey Jesika DO Work Phone: [facility] CenterHozmveygcs78-45-1797 11:00-0400Diastolic blood dtevyhyf50 mm[Hg]Abad Jesika DO Work Phone: [facility] CenterEyniaewhvg87-60-9197 11:00-0400Systolic blood qtuehbws730 mm[Hg]Abad Jesika DO Work Phone: [facility] CenterWwlegcumzw22-19-9598 14:07-0400Body kunqam231.64 cmSum[facility]07-19-2024 14:07-0400Body mass index (BMI) [Ratio]35.9 kg/c5NwjuavogqSumma Health [facility] Campus07-19-2024 14:07-0400Body .15 [facility]07-19-2024 14:07-0400Diastolic blood fljysfwr69 mm[Hg][facility]07-19-2024 14:07-0400 Heart vacb914 /[facility]07-19-2024 14:07-0400Systolic blood ijzlmfri498 mm[Hg][facility]04-25-2024 15:18-0400 Body zydmcy378.64 cmSumma [facility]04-25-2024 15:18-0400Body mass index (BMI) [Ratio]36.8 kg/n0VyxhitdyqSumma Health [facility] Campus04-25-2024 15:18-0400Body ujrfop807.41 [facility]04-25-2024 15:18-0400Diastolic blood hlyaapky800 mm[Hg][facility] 12-05-2023 15:18-0400Heart rate94 /[facility] 12-05-2023 15:18-0400Systolic blood aqspkbhp011 mm[Hg][facility]12-22-2023 11:56-0500Body qymgmj193.7 cmAnnel Teresa APRN-GUI DEVELOPER Work Phone: [facility]12-22-2023 11:56-0500Body mass index (BMI) [Ratio]35.18 kg/m2Annel JACOBGUI DEVELOPER Work Phone: [facility]12-22-2023 11:56-0500Body axieabhmqxf76.2 [degF]Annel JACOBGUI DEVELOPER Work Phone: [facility]12-22-2023 11:56-0500Body itqcoz331.96 kgAnnel Teresa APRNClaribelGUI DEVELOPER Work Phone: [facility]12-22-2023 11:56-0500Diastolic blood odnxwfef05 mm[Hg]Annel JACOBGUI DEVELOPER Work Phone: [facility] HospitalC[facility]12-22-2023 11:56-0500Heart rate 91 /minAnnel Teresa APRNClaribelGUI DEVELOPER Work Phone: [facility] HospitalDesignqwest Platforms12-22-2023 11:56-3304JlN9% (BldA) [Mass fraction]99 %Annel JACOBGUI DEVELOPER Work Phone: [facility] HospitalC[facility]12-22-2023 11:56-0500Systolic blood mzwgyktg660 mm[Hg]Annel JACOBGUI DEVELOPER Work Phone: [facility] HospitalShowNearby [facility] Encounters Encounter DateEncounter TypeCare ProviderFacilityStart: 06-21-2025 End: 52-06-3973Egbkndad flow sheetCorey Jesika DO Work Phone: [facility] OBGYNComment on above:28 weeks gestation of ([facility]); Third trimester ([facility]); induced hypertension, antepartum ([facility])Start: 06-21-2025 End: 81-17-0919mhaxuwdesmHKEPO FAZIONot AvailableStart: 06-08-2025 End: 34-23-4153Gpyvgn flowsheetAmy Gregorio MIX Work Phone: [facility] [place] [facility]YNStart: 06-08-2025 End: 61-05-4245Yxbmwv flowsheetShagufta MIX Work Phone: [facility] [place] [facility]YNStart: 06-08-2025 End: 52-65-8127Tssbsz outpatient visit 15 minutesShagufta MIX Work Phone: [facility] [place] OBGYNComment on above: size inconsistent with dates ([facility]) (Primary Dx); 28 weeks gestation of ([facility]); Second trimester ([facility])Start: 06-08-2025 End: 94-67-0389jwtmyudbubOKA RAMEYNot AvailableStart: 05-12-2025 End: 19-72-9874Puvslb flowsMaria Isabel Roy NP Work Phone: [facility] [place] [facility]BGYNStart: 05-12-2025 End: 74-19-5178Demppo flowsMaria Isabel Roy NP Work Phone: [facility] [place] [facility]YNStart: 05-12-2025 End: 70-15-1874Vcrrztsj flow sheetSay Roy NP Work Phone: [facility] [place] OBGYNComment on above:24 weeks gestation of ([facility]); Second trimester ([facility]); Diabetes mellitus screeningStart: 05-12-2025 End: 18-81-7169hcyepkeewsRFPBUNXR EBERLYNot AvailableStart: 04-15-2025 End: 71-33-5816Vswqzb flowsheetCorey Jesika DO Work Phone: [facility] [place] [facility]BGYNStart: 04-15-2025 End: 41-83-2989Oyjqpf flowsheetCorey Jesika DO Work Phone: [facility] [place] [facility]BGYNStart: 04-15-2025 End: 45-58-0745Wrfqvlzcn Result EncounterCorey Jesika DO Work Phone: NOMS External Department UnsolicitedStart: 04-15-2025 End: 28-29-9856Fupjowmg preventive med est patient 18-39 yrsCorey Jesika DO Work Phone: [facility] [place] OBGYNComment on above:Second trimester ([facility]); 21 weeks gestation of ([facility]); Nausea and vomiting during ([facility]); Vaginal discharge during , antepartum ([facility])Start: 04-15-2025 End: 32-44-8980furenwwdgxCNIPH FAZIONot AvailableStart: 04-08-2025 End: 74-17-5230msuzstynhyDOK RAMEYNot AvailableStart: 03-18-2025 End: 26-18-8687Rcwpfxpxs Result EncounterShagufta MIX Work Phone: noms External Department UnsolicitedStart: 03-18-2025 End: 18-00-7413Pmlpoyce Result EncounterShagufta MIX Work Phone: noms External Department UnsolicitedStart: 03-18-2025 End: 98-75-4996Wlqgouua Result EncounterShagufta Gregorio MIX Work Phone: noms External Department UnsolicitedStart: 03-18-2025 End: 57-88-8051Zqvpnqxr flow sheetShagufta [place] PA Work Phone: [facility] [place] OBGYNComment on above:17 weeks gestation of ([facility]); Second trimester ([facility]); Subchorionic hematoma in first trimester, single or unspecified fetus ([facility]); Screening, , for anatomic survey ([facility]); Exposure to STD; Vaginal dischargeStart: 03-18-2025 End: 02-71-3791gqvxldmbyrXMP RAMEYNot AvailableStart: 03-04-2025 End: 99-87-3027heepomrvowEGLZSBE Isaac LARAOhiohealth HospitalStart: 03-04-2025 End: 72-94-7147Uoernvkzvh hospital visit by Fide Sanford CNP Work Phone: [facility]Start: 02-18-2025 End: 50-44-9639Znvwss flowsheetCorey Jesika DO Work Phone: [facility] BCP OBStart: 02-18-2025 End: 85-89-0730Yfterl flowsheetCorey Jesika DO Work Phone: [facility] BCP OBStart: 02-18-2025 End: 63-53-9684ghctxwdusbANTAA FAZIONot AvailableStart: 02-18-2025 End: 86-92-4776Vfzyeudr flow sheetCorey Jesika DO Work Phone: [facility] BCP OBComment on above:Second trimester ([facility]); 13 weeks gestation of ([facility])Start: 02-11-2025 End: 49-96-2181Qkeqlxrih Result EncounterCorey Jesika DO Work Phone: N[facility]S External Department UnsolicitedStart: 02-11-2025 End: 59-68-3977Rblljdrtm Result EncounterCorey Jesika DO Work Phone: N[facility]S External Department UnsolicitedStart: 01-21-2025 End: 93-98-2794Pqzarxtms Result EncounterCorey Jesika DO Work Phone: [facility] External Department UnsolicitedStart: 01-21-2025 End: 07-28-4465Aemlgfjck Result EncounterCorey Jesika DO Work Phone: noms External Department UnsolicitedStart: 01-21-2025 End: 66-83-7665Ebfkqz outpatient visit 5 minutesNoms Bcp Ob Jesika NurseNOMS BCP OBComment on above:GA: 5n7yQcwor: 01-21-2025 End: 24-47-6451hjvyiomrodGNXCX FAZIONot AvailableStart: 01-13-2025 End: 57-65-6777Nmxavk flowsheetSay Roy [employer] Work Phone: [facility] BCP OBStart: 01-13-2025 End: 85-70-1371Strlno flowsheetSay Roy [employer] Work Phone: [facility] BCP OBStart: 01-13-2025 End: 69-72-6205eplztiytsiEDKDONXQ EBERLYNot AvailableStart: 01-13-2025 End: 50-74-2181Rzcqfb outpatient visit 15 minutesSay Roy [employer] Work Phone: noms [facility] OBComment on above:GA: 7s1mOtaca: 12-01-2024 End: 49-13-5794Kixgyu flowsheetCorey Jesika DO Work Phone: noms BCP OBStart: 12-01-2024 End: 58-18-9079Dgeinfsjy Result EncounterCorey Jesika DO Work Phone: noms External Department UnsolicitedStart: 12-01-2024 End: 91-17-5490Snjbfbytk Result EncounterCorey Jesika DO Work Phone: noms External Department UnsolicitedStart: 12-01-2024 End: 61-41-6528Nmwnuz outpatient visit 15 minutesCorey Jesika DO Work Phone: noms [facility] OBComment on above:Female infertility; PCOS (polycystic ovarian syndrome); Abnormal uterine bleeding (AUB); Endometriosis; Insulin resistanceStart: 12-01-2024 End: 24-70-5581ntnyoodzkoFLMPV FAZIONot AvailableStart: 03-25-2024 End: 47-98-8340Sxojqqguu Result EncounterCorey Jesika DO Work Phone: noms External Department UnsolicitedStart: 03-25-2024 End: 24-31-9210Zuyfllrnm Result EncounterCorey Jesika DO Work Phone: noms External Department UnsolicitedStart: 02-28-2024 End: 92-36-6443xqeexspzdqJfgqtpeiqOhio State East Hospital Work Phone: Start: 02-28-2024 End: 37-62-4795Cdyhtes encounter procedureAt[facility] Work Phone: Start: 12-05-2023 End: 57-97-6710pgbrnpqikxAfhzxswopOhio State East Hospital Work Phone: Start: 12-05-2023 End: 94-87-4719Yrqrhla encounter procedureAt[facility] Work Phone: Start: 12-03-2023 End: 20-58-3291Otorblewh encounterAnnel Ivana Teresa [employer]-GUI DEVELOPER Work Phone: [facility] MedicineStart: 08-02-2023 End: 89-08-4211Cpvesy outpatient visit 15 minutesAnnel Ivana Teresa [employer]-GUI DEVELOPER Work Phone: [facility] Family MedicineComment on above:Acute non-recurrent maxillary sinusitis (Primary Dx); Non-recurrent acute serous otitis media of both ears; Elevated blood pressure readingStart: 01-10-2023 End: 27-71-4291etmeaxrinlFYQH Con[facility] Foundationtart: 01-10-2023 End: 47-17-3621Kchoconltc hospital visit by physicianAnnel Teresa [employer] - LABOR DELIVERY RN Work Phone: [facility] LaboratoryStart: 02-26-2022 End: 38-13-7167eapduqdstwGE ABAD FAZIOFacility:V5Wqouu: 13-54-6393Vuqknbhdt for preprocedural laboratory examinationDR ABAD [facility]htart: 06-30-2021 End: 47-20-2141mjmpnbpdstKD ABAD FAZIOFacility:F1Vfliz: 46-88-1213Jzhhpgrsw for other preprocedural examinationDR ABAD [facility] HospitalStart: 06-27-2021 End: 96-61-5795knmepvoqkxLH ABAD FAZIOFacility:N0Iekwy: 06-27-2021 End: 04-36-4712Mzjzttrth for preprocedural laboratory examinationDR ABAD JESIKA Facility:L5Cylbg: 06-21-2021 End: 12-40-6153bfcnsjnqnrQT ABAD FAZIOFacility:W2Qghkx: 06-21-2021 End: 78-13-5642Fdrkewuto for other preprocedural examinationDR [facility] Facility:H1 Procedures DateProcedureProcedure DetailPerforming ClinicianStart: 75-21-3349Rrypv dip stick/tablet rgnt non-auto w/o micrscpCorey Jesika DO Work Phone: Start: 21-89-6197Ercsu dip stick/tablet rgnt non-auto w/o micrscpAmy Gregorio MIX Work Phone: Start: 39-91-2464Sthol dip stick/tablet rgnt non-auto w/o micrscpKrkylah Roy NP Work Phone: Start: 27-93-9784UMR,APTIMA HPV,AGE GDLNCorey Jesika DO Work Phone: Start: 27-71-4147CSP, SERUM, OPEN SPINA BIFIDAAmaria alejandra MIX Work Phone: Start: 92-87-8936ZJPYKZOXL VAGINITIS (HTRX)Shagufta MIX Work Phone: Start: 53-09-3926Rdfhj dip stick/tablet rgnt non-auto w/o micrscpAmy Gregorio MIX Work Phone: Start: 94-96-5197Wnadl dip stick/tablet rgnt non-auto w/o micrscpCorey Jesika DO Work Phone: Start: 02-40-0042IG OB TRANSVAGINALCorey Jesika DO Work Phone: Start: 04-11-1525REW HEMOGLOBIN U9NLsrbm Jesika DO Work Phone: Start: 01-21-2025 End: 05-52-0614Zcmtz dip stick/tablet rgnt non-auto w/o micrscpCorey Jesika DO Work Phone: Start: 22-57-4699Kdgfv dip stick/tablet rgnt non-auto w/o micrscpKrkylah Roy [employer] Work Phone: Start: 71-53-9997CJG CBC WITH AUTO DIFFCorey Jesika DO Work Phone: Start: 12-01-2024 End: 53-45-5439Qwpsi dip stick/tablet rgnt non-auto w/o micrscpCorey Jesika DO Work Phone: Start: 22-39-7505RZS,APTIMA HPV,AGE GDLNCorey Jesika DO Work Phone: Start: 36-33-1445Upvth depression screening assessment Annel Teresa [employer]-GUI DEVELOPER Work Phone: Start: 98-24-6794Aatuofsmxio observation [Identifier] in Cervix by Cyto stainAnnel Teresa [employer]-GUI DEVELOPER Work Phone: Start: 65-25-6862Ejgnqdtfbkzna metabolic panelUnknown Provider Result Plan of Treatment DateCare ActivityDetailAuthorStart: 78-49-8255Njkagcwvl for malignant neoplasm of cervixPap SmearProZeristaca [facility] SystemStart: 07-06-2025 End: 77-43-5622Lqndbrz encounter jhjdequod11/25/2025 10:40 AM EST Routine [facility] [place] [address] [place] [phone] Abad Canchola DO [address] [facility] [address] [facility] [place] [address] NOMFatimah [place] OBGYNStart: 06-28-2025 End: 39-99-5622Mskkrra encounter elueifois58/17/2025 3:30 PM EST Routine [facility] [address] [place], [id number] Say Roy, [employer] [address] [facility] [place] [phone] NOMFatimah [place] OBGYNStart: 06-21-2025 End: 08-74-1736Cydhnnf encounter teyudzehl00/10/2025 3:30 PM EST Routine [facility] [address] [place], [id number] Abad Canchola DO [address] [facility] [place] [address] [facility] [place] [facility]Start: 06-21-2025 End: 23-60-4368Iqtoxazkpgta / ancillary services xzeuizepla84/10/2025 3:00 PM EST Ancillary Procedure [facility] [address] [place] [place] [phone] [facility] [place] [facility]YNStart: 06-21-2025 End: 74-19-3534Bskchxx aminotransferase [Enzymatic activity/volume] in Serum or PlasmaALT Lab Routine induced hypertension, antepartum ([facility]) Expected: 06/21/2025 (Approximate), Expires: 06/21/2026[facility] HealthcareComment on above:Expected: 06/21/2025 (Approximate), Expires: 06/21/2026Start: 06-21-2025 End: 80-61-6517Xtvxpzkxk aminotransferase [Enzymatic activity/volume] in Serum or PlasmaAST Lab Routine induced hypertension, antepartum ([facility]) Expected: 06/21/2025 (Approximate), Expires: 06/21/2026[facility] HealthcareComment on above:Expected: 06/21/2025 (Approximate), Expires: 06/21/2026Start: 06-21-2025 End: 65-13-8470GAZ W Auto Differential panel - BloodCBC and differential Lab Routine induced hypertension, antepartum ([facility]) Expected: 06/12 (Approximate), Expires: 06/21/2026[facility] HealthcareComment on above: Expected: 06/21/2025 (Approximate), Expires: 06/21/2026Start: 06-21-2025 End: 08-82-1695Rnaeccqezy [Mass/volume] in Serum or PlasmaCreatinine Lab Routine induced hypertension, antepartum ([facility]) Expected: 06/21/2025 (Ap proximate), Expires: 06/21/2026[facility] Healthcare Work Phone: comment on above:Expected: 06/21/2025 (Approximate), Expires: 06/21/2026Start: 06-21-2025 End: 55-67-9647Aibjppy dehydrogenase [Enzymatic activity/volume] in Serum or Plasma by Lactate to pyruvate reactionLactate dehydrogenase Lab Routine induced hypertension, antepartum ([facility]) Expected: 06/21/2025, Expires: 06/21/2026[facility] HealthcareComment on above:Expected: 06/21/2025, Expires: 06/21/2026Start: 06-21-2025 End: 26-20-7863Kykumrx, urine, 24 hourProtein, urine, 24 hour Lab Routine induced hypertension, antepartum ([facility]) Expected: 06/21/2025 (Approximate), Expires: 06/21/2026[facility] HealthcareComment on above:Expected: 06/21/2025 (Approximate), Expires: 06/21/2026Start: 06-21-2025 End: 31-40-6462Cx and pttPt and ptt Lab Routine induced hypertension, antepartum ([facility]) Expected: 06/21/2025, Expires: 06/21/2026[facility] Healthcare Comment on above:Expected: 06/21/2025, Expires: 06/21/2026Start: 06-21-2025 End: 89-53-6787Vnneu [Mass/volume] in Serum or PlasmaUric acid Lab Routine induced hypertension, antepartum ([facility]) Expected: 06/21/2025 (Hilary roximate), Expires: 06/21/2026[facility] HealthcareComment on above:Expected: 06/21/2025 (Approximate), Expires: 06/21/2026Start: 06-21-2025 End: 83-88-6280Ucfe nitrogen [Mass/volume] in Serum or PlasmaBUN Lab Routine induced hypertension, antepartum ([facility]) Expected: 06/21/2025, Expires:06/21/2026[facility] HealthcareComment on above:Expected: 06/21/2025, Expires: 06/21/2026Start: 06-08-2025 End: 41-32-5982RB for pregnancyUS OB follow up transabdominal approach Imaging Routine size inconsistent with dates ([facility]) Expected: 06/08/2025, Expires: 10/09/2025[facility] Work Phone: comment on above:Expected: 06/08/2025, Expires: 10/09/2025Start: 06-08-2025 End: 59-27-6677Zxyunsx encounter jqpemfdzg73/28/2025 8:30 AM EDT Routine [facility] [place] [facility] [address] [place], [id number] Shagufta Perkins PA [address] [facility] [address] [place], [place] [id number] ArrivedNO Logan OBGYNComment on above:ArrivedStart: 05-12-2025 End: 90-73-9963QSC panel - Blood by Automated countCBC Lab Routine Diabetes mellitus screening Expected: 05/12/2025 (Approximate), Expires: 05/12/2026[facility] Work Phone: comment on above:Expected: 05/12/2025 (Approximate), Expires: 05/12/2026Start: 05-12-2025 End: 53-98-3661Dmploehvdzo of glucose 1 hour after glucose challenge for glucose tolerance testGlucose tolerance, 1 hour Lab Routine Diabetes mellitus screening Expected: 05/12/2025 (Approximate), Expires: 05/12/2026[facility] HealthcareComment on above:Expected: 05/12/2025 (Approximate), Expires: 05/12/2026Start: 05-12-2025 End: 34-43-5065Bvwxpnx encounter procedureNOMS [place] OBGYNComment on above: ArrivedStart: 04-15-2025 End: 48-84-1310Jfpihln encounter procedureNOMS Logan OBGYNComment on above: ArrivedStart: 78-12-1626ITXTX-19 Vaccine ( season)COVID-19 Vaccine ( season)[facility] HealthcareStart: 38-20-2224Riskspukr vaccinationNOVA HealthcareStart: 04-08-2025 End: 44-90-4827Glbrpmggqmod / ancillary services wfnnpabnek29/28/2025 8:00 AM EDT Ancillary Procedure [facility] [place] [facility] [address] [place] [phone] [facility]Start: 04-05-2025 End: 80-91-3245Bpwnawq encounter vmlogwurb04/25/2025 10:20 AM EDT Office Visit [facility] [address] [place] [phone] Abad Canchola DO [address] [facility] [place] [address] NOMS BCP OBStart: 03-18-2025 End: 65-58-1004Hjmgi fetoprotein, maternalAlpha fetoprotein, maternal Lab Routine 17 weeks gestation of ([facility]) Second trimester ([facility]) Expected: 03/18/2025 (Approximate), Expires: 04/18/2025[facility] Comment on above:Expected: 03/18/2025 (Approximate), Expires: 04/18/2025Start: 03-18-2025 End: 83-01-6653BR for pregnancyUS OB 14+ weeks anatomy scan Imaging Routine Screening, , for anatomic survey ([facility]) Expected: 03/18/2025, Expires: [facility]2025[facility]Comment [facility]:Expected: 03/18/2025, Expires: 06/18/2025Start: 03-18-2025 End: 93-99-7473Ecjsnvh encounter zkacykmja34/07/2025 10:30 AM EDT Routine [facility] [address] [place] [phone] Shagufta Perkins PA [address] [facility] [address] [place], [place] [id number] NOMS BCP OBStart: 03-18-2025 End: 56-35-7892Mlsswiyignph / ancillary services vqdzdvsrme21/07/2025 10:00 AM EDT Ancillary Procedure [facility] [address] [place] [phone] NOMS BCP OBStart: 48-31-0775Fmqyaysvr vaccinationFlu vaccine (#1)Huseyin [facility] CenterStart: 02-18-2025 End: 67-41-9053Mxlwtll encounter whlzvajno96/10/2025 8:40 AM EDT Routine [facility] [address] [place] [place] [address] Abad Canchola, [address] [place] [address] NOMS BCP OBStart: 01-21-2025 End: 78-60-5756BZO/RhABO/Rh Lab Routine Missed menses , unspecified gestational age ([facility]) Expected: 01/21/2025 (Approximate), Expires: 01/21/2026[facility] HealthcareComment on above:Expected: 01/21/2025 (Approximate), Expires: 01/21/2026Start: 01-21-2025 End: 87-33-3610guebldhrzy37/12/2025 2:00 PM EDT Initial N[facility] [address] [place] [address] NOMS BCP OBStart: 01-21-2025 End: 05-78-7278Thikc type and Indirect antibody screen panel - BloodType and screen Lab Routine Missed menses , unspecified gestational age ([facility]) Expected: 01/21/2025 (Approximate), Expires: 01/21/2026[facility] Work Phone: comment on above:Expected: 01/21/2025 (Approximate), Expires: 01/21/2026Start: 01-21-2025 End: 82-10-9539Wppco of abuse panel - Urine by Screen methodRapid drug screen, urine Lab Routine , unspecified gestational age ([facility]) Encounter for supervision of normal first in first trimester ([facility]) Expected: 01/21/2025 (Approximate), Expires: 01/21/2026[facility] HealthcareComment on above: Expected: 01/21/2025 (Approximate), Expires: 01/21/2026Start: 01-21-2025 End: 43-51-3419Uxymkprsmfmw / ancillary services twefxqrhgo44/12/2025 1:30 PM EDT Ancillary Procedure [facility] OB [address] [place] [address] PZRU BCP OBStart: 12-17-2024 End: 72-38-1201Jlmfidxkzpoa / ancillary services davfdbsjjk11/08/2025 8:00 AM EDT Ancillary Procedure [facility] [address] [place] [address] USOI BCP OBStart: 12-01-2024 End: 10-20-4156Hsqsyndytxquc hormone ([facility])Antimullerian hormone ([facility]) Lab Routine Abnormal uterine bleeding (AUB) Endometriosis Expected: 12/01/2024 (Approximate), Expires: 12/01/2025[facility] HealthcareComment on above:Expected: 12/01/2024 (Approximate), Expires: 12/01/2025Start: 12-01-2024 End: 88-22-6898EILIXFBS Lab Routine PCOS (polycystic ovarian syndrome) Expected: 12/01/2024 (Approximate), Expires: 12/01/2025[facility] HealthcareComment on above: Expected: 12/01/2024 (Approximate), Expires: 12/01/2025Start: 12-01-2024 End: 66-98-4885QA PelvisUS Pelvis w/ TV Imaging Routine PCOS (polycystic ovarian syndrome) Expected: 12/01/2024, Expires: 12/01/2025[facility] HealthcareComment on above:Expected: 12/01/2024, Expires: 12/01/2025Start: 17-44-4995Wzxjr BMI ScreeningAdult BMI ScreeningProDiley Ridge Medical Centertart: 39-52-3069Rlfuhzyyrk ScreeningDepression ScreeningOhioHealth Shelby Hospital SystemStart: 24-79-2928Awdxetw ScreeningTobacco ScreeningOhioHealth Shelby Hospital SystemStart: 92-95-2040ZPESZ-19 Vaccine ( season)COVID-19 Vaccine ( season)Huseyin [facility] HealthStart: 58-80-6415Etxxwwida vaccinationNOVA HealthcareStart: 78-01-7873Dloxy BMI Follow Up PlanAdult BMI Follow Up PlanOhioHealth Shelby Hospital SystemStart: 61-32-7248Aiunu BMI ScreeningAdult BMI ScreeningOhioHealth Shelby Hospital SystemStart: 22-34-3957Mjkrankgn for Chlamydia trachomatisChlamydia Screening [facility] CenterComment on above:Postponed from 1999 (Not Indicated)Start: 49-57-6733Rpusnoozk vaccinationInfluenza VaccineOhioHealth Shelby Hospital SystemStart: 82-74-9325Hmqfsckfn vaccinationFlu vaccine (Season Ended) WYANDOTStart: 88-45-8803KKuY,Tdap and Td Vaccines (7 - Td or Tdap)DTaP,Tdap and Td Vaccines (7 - Td or Tdap)[facility] SystemStart: 71-09-0399DTlS/Tdap/Td vaccine (1 - Tdap)DTaP/Tdap/Td vaccine (1 - Tdap)W[place]ANDOTStart: 2018 Hepatitis B Vaccines (1 of 3 - 19+ 3-dose series)Hepatitis B Vaccines (1 of 3 - 19+ 3-dose series)[facility] HealthcareStart: 65-83-8505MLP Vaccines (1 - 3-dose series)HPV Vaccines (1 - 3-dose series)[facility] HealthcareStart: 11-71-4274Pbzuzje of varicella vaccinationVaricella Vaccines (1 of 2 - 13+ 2-dose series)[facility] HealthcareStart: 66-38-3220PKcI/Tdap/Td Vaccines (1 - Tdap)DTaP/Tdap/Td Vaccines (1 - Tdap)[facility] HealthcareStart: 56-39-3619CJG Vaccines (1 of 1 - Standard series)MMR Vaccines (1 of 1 - Standard series)[facility] HealthcareStart: 03-20-2000 COVID-19 Vaccine (#1)COVID-19 Vaccine (#1)WYANDOTBacteria identified in Urine by CultureUrine culture Microbiology Routine Missed menses Ordered: 01/21/2025[facility] HealthcareComment on above:Ordered: 01/21/2025BC W Auto Differential panel - BloodCBC and differential Lab Routine PCOS (polycystic ovarian syndrome) Ordered: 12/01/2024[facility] HealthcareComment on above:Ordered: 12/01/2024BC W Auto Differential panel - BloodCBC and differential Lab Routine Missed menses , unspecified gestational age ([facility]) Ordered: 01/21/2025[facility] HealthcareComment on above:Ordered: 01/21/2025HLAMYDIA TRACHOMATIS (GENITO/STI) CHLAMYDIA TRACHOMATIS (GENITO/STI) Lab Routine Exposure to STD Ordered: 03/18/2025[facility] HealthcareComment on above:Ordered: 03/18/2025HLAMYDIA TRACHOMATIS (GENITO/STI)CHLAMYDIA TRACHOMATIS (GENITO/STI) Lab Routine Vaginal discharge during , antepartum ([facility]) Ordered: 04/15/2025[facility] HealthcareComment on above:Ordered: 04/15/2025ytology Cervical or vaginal smear or scraping studyPap Smear Pathology and Cytology Routine Second trimester ([facility]) 21 weeks gestation ofpregnancy ([facility]) Ordered: 04/15/2025 [facility] Healthcare Work Phone: comment on above:Ordered: 04/15/2025DHEA-sulfateDHEA- sulfate Lab Routine PCOS (polycystic ovarian syndrome) Ordered: 12/01/2024[facility] HealthcareComment on above:Ordered: 12/01/2024Follicle stimulating hormone Follicle stimulating hormone Lab Routine PCOS (polycystic ovarian syndrome) Ordered: 12/01/2024[facility] HealthcareComment on above:Ordered: 12/01/2024hCG, quantitative, pregnancyhCG, quantitative, Lab Routine PCOS (polycystic ovarian syndrome) Ordered: 12/01/2024[facility] Healthcare Work Phone: comment on above:Ordered: 12/01/2024Hemoglobin A1c/Hemoglobin.total in BloodHemoglobin A1c Lab Routine Abnormal uterine bleeding (AUB) Endometriosis Ordered: 12/01/2024[facility] HealthcareComment on above: Ordered: 12/01/2024Hemoglobin A1c/Hemoglobin.total in BloodHemoglobin A1c Lab Routine Missed menses , unspecified gestational age ([facility]) Ordered: 01/21/2025[facility] HealthcareComment on above:Ordered: 01/21/2025Hepatitis B virus surface Ag [Presence] in Serum or Plasma by ImmunoassayHepatitis B surface antigen Lab Routine Missed menses , unspecified gestational age ([facility]) Ordered: 01/21/2025[facility] HealthcareComment on above:Ordered: 01/21/2025 Hepatitis C virus Ab [Presence] in Serum or Plasma by ImmunoassayHepatitis C antibody Lab Routine Missed menses , unspecified gestational age ([facility]) Ordered: 01/21/2025[facility] HealthcareComment on above:Ordered: 01/21/2025 HIV-1/HIV-2 antigen/antibody combination immunoassayHIV-1 and HIV-2 antibodies Lab Routine Missed menses , unspecified gestational age ([facility]) Ordered: 01/21/2025[facility] HealthcareComment on above:Ordered: 01/21/2025 Luteinizing hormoneLuteinizing hormone Lab Routine PCOS (polycystic ovarian syndrome) Ordered: 12/01/2024[facility] HealthcareComment on above:Ordered: 12/01/2024 Neisseria gonorrhoeae DNA [Presence] in Unspecified specimen by SANJANA with probe detectionNeisseria gonorrhea DNA probe, direct Lab Routine Exposure to STD Ordered: 03/18/2025[facility] HealthcareComment on above:Ordered: 03/18/2025Neisseria gonorrhoeae DNA [Presence] in Unspecified specimen by SANJANA with probe detection Neisseria gonorrhea DNA probe, direct Lab Routine Vaginal discharge during , antepartum ([facility]) Ordered: 04/15/2025[facility] HealthcareComment on above:Ordered: 04/15/2025Protein/Creatinine [Mass Ratio] in Urine Protein:Creatinine Ratio, Urine Lab Routine induced hypertension, antepartum ([facility]) Ordered: 06/21/2025[facility] HealthcareComment on above:Ordered: 06/21/2025 End: 01-49-5591Llokprjzokp [facility] Phone: Comment on above:Once for 1 Occurrences starting 03/04/2025 until 03/04/2025Reagin Ab [Presence] in Serum by RPRRPR Lab Routine Missed menses , unspecified gestational age ([facility]) Ordered: 01/21/2025[facility] HealthcareComment on above:Ordered: 01/21/2025Rubella antibody, IgGRubella antibody, IgG Lab Routine Missed menses , unspecified gestational age ([facility]) Ordered: 01/21/2025[facility] HealthcareComment on above: Ordered: 01/21/2025SURESWAB(R) ADVANCED VAGINITIS PLUS, TMASURESWAB(R) ADVANCED VAGINITIS PLUS, TMA Pathology and Cytology Routine Vaginal discharge Ordered: 0 03/18/2025[facility] Work Phone: comment on above:Ordered: 03/18/2025SURESWAB(R) ADVANCED VAGINITIS PLUS, TMASURESWAB(R) ADVANCED VAGINITIS PLUS, TMA Pathology and Cytology Routine Vaginal discharge during , antepartum ([facility]) Ordered: 04/15/2025[facility] HealthcareComment on above:Ordered: 04/15/2025 Thyrotropin [Units/volume] in Serum or PlasmaTSH Lab Routine PCOS (polycystic ovarian syndrome) [facility]Ordered: 12/01/2024Thyroxine (T4) free [Mass/volume] in Serum or PlasmaT4, free Lab Routine PCOS (polycystic ovarian syndrome) Ordered: 12/01/2024[facility] Comment on above:Ordered: 12/01/2024 Immunizations Immunization DateImmunizationNotesCare MqrxgbbnDxucbxwm76-93-2684mupgwlcvh, injectable, quadrivalent, preservative freeMary Kuns [employer]-GUI DEVELOPER Work Phone: [facility] Hospitalconv[facility] therapeutics [facility]aginawAnbmpy33-40-3607qxxklfajh virus vaccine, unspecified formulationMary Kuns [employer]-GUI DEVELOPER Work Phone: [facility] CenterKajvla51-80-2922FQTNC-45, mRNA, LNP- S, PF, 100mcg/0.5mL DoseMary Kuns [employer]-GUI DEVELOPER Work Phone: [facility] CenterPflmkf36-52-7970EWAZR-45, mRNA, LNP- S, PF, 100mcg/0.5mL DoseAnnel Teresa [employer]-GUI DEVELOPER Work Phone: [facility] CenterDsbkyd14-94-5314kurrymyhw, injectable, quadrivalent, preservative freeAnnel Teresa [employer]-GUI DEVELOPER Work Phone: [facility] CenterHjhyxq49-70-5839sknmqsobh A vaccine, pediatric/adolescent dosage, 2 dose scheduleAnnel Teresa [employer]-GUI DEVELOPER Work Phone: [facility]07-28-2017Human Papillomavirus 9-valent vaccineAnnel Teresa [employer]-GUI DEVELOPER Work Phone: [facility] CenterKnhszi72-21-3893hhxvwvbqnlmjz oligosaccharide (groups A, C, Y and W-135) diphtheria toxoid conjugate vaccine (MCV4O)Annel Teresa [employer]-GUI DEVELOPER Work Phone: [facility]10-30-2012human papilloma virus vaccine, quadrivalentAnnel Teresa [employer]-GUI DEVELOPER Work Phone: [facility] [employer] Iafpmn68-89-1751mcphjyxjxmtma polysaccharide (groups A, C, Y and W-135) diphtheria toxoid conjugate vaccine (MCV4P)Annel Teresa [employer]-GUI DEVELOPER Work Phone: [facility] CenterDnnzhf71-28-7886crsdmklkx virus vaccineAnnel Teresa [employer]-GUI DEVELOPER Work Phone: [facility] CenterZifsfy18-59-9270sdbnzwhin A vaccine, pediatric/adolescent dosage, 2 dose scheduleAnnel Teresa [employer]-GUI DEVELOPER Work Phone: [facility]09-12-2012human papilloma virus vaccine, quadrivalentAnnel Teresa [employer]-GUI DEVELOPER Work Phone: [facility]09-12-2012tetanus toxoid, reduced diphtheria toxoid, and acellular pertussis vaccine, adsorbedAnnel Teresa [employer]-GUI DEVELOPER Work Phone: [facility] CenterLzyvrj69-47-1468maqwxpjxku, tetanus toxoids and acellular pertussis vaccine, unspecified 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 Teresa [employer]-GUI DEVELOPER Work Phone: [facility]07-07-2005measles, mumps and rubella virus vaccineAnnel Teresa [employer]-GUI DEVELOPER Work Phone: [facility] CenterAfdekt17-40-1072ffnehuufty vaccine, inactivatedAnnel Teresa [employer]-GUI DEVELOPER Work Phone: [facility] CenterJcucld52-45-8247eyiiwusccg, tetanus toxoids and acellular pertussis vaccine, unspecified 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 Teresa [employer]-GUI DEVELOPER Work Phone: [facility] CenterDogpyy25-24-0523tffgjzpynwg influenzae type b conjugate and Hepatitis B vaccineAnnel Teresa [employer]-GUI DEVELOPER Work Phone: [facility]04-26-2001measles, mumps and rubella virus vaccineAnnel Teresa [employer]-GUI DEVELOPER Work Phone: [facility] CenterRckbps10-37-3218fypemyrhmb vaccine, inactivatedAnnel Teresa [employer]-GUI DEVELOPER Work Phone: [facility] CenterUxiopg39-91-6327nronoakqv virus vaccineAnnel Teresa [employer]-GUI DEVELOPER Work Phone: [facility] CenterCllfva95-31-9800fgnkxuodvu, tetanus toxoids and acellular pertussis vaccine, unspecified 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 Teresa [employer]-GUI DEVELOPER Work Phone: [facility] CenterSentia98-22-0591zyxwzmldjax influenzae type b vaccine, PRP-OMP conjugateAnnel Teresa [employer]-GUI DEVELOPER Work Phone: [facility] CenterWegmun21-20-1727dnjnyemfct, tetanus toxoids and acellular pertussis vaccine, unspecified 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 Teresa [employer] SAL[employer]-GUI DEVELOPER Work Phone: [facility] CenterKoovut47-95-4147pkkxxlnihgl influenzae type b conjugate and Hepatitis B vaccineAnnel Teresa [employer]-GUI DEVELOPER Work Phone: [facility] CenterHltfwz81-17-9217shojaqvrkc vaccine, inactivatedAnnel Teresa [employer]-GUI DEVELOPER Work Phone: [facility] CenterLdssnx89-80-2998wnqjkamzhi, tetanus toxoids and acellular pertussis vaccine, unspecified 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 Teresa [employer]-GUI DEVELOPER Work Phone: [facility] CenterKhixro41-63-1414ruqvgcaqgvs influenzae type b conjugate and Hepatitis B vaccineAnnel Teresa [employer]-GUI DEVELOPER Work Phone: [facility] CenterDkbicy26-50-8897ppqjasclcf vaccine, inactivatedAnnel Teresa [employer]-GUI DEVELOPER Work Phone: [facility] Payers DatePayer CategoryPayerPolicy [id number] Blue Shield [id number] [id number] Health [id number] [id number] 1.2.840.716793.1.13.239.2.7.3.861316. Medicaid1.2.840.014748.1.13.693.2.7.3.483574.39228-10-2039Shfknyg Health Insurance1.2.840.434217.1.13.693.2.7.9.247834.654723.74922-04-3953Ubhakip 1.2.840.559017.1.13.693.2.7.3.216[id number] 2.16.840.1.297979.3.57[id number] 2.16.840.1.122366.3.57[id number] 2.16.840.1.501252.3.57[id number] 2.16.840.1.415435.3.57[id number] 2.16.840.1.711528.3.57[id number] 2.16.840.1.905938.3.57[id number] 2.16840.1.086496.3.57[id number] 2.16.840.1.536731.3.57[id number] 2.16.840.1.744142.3.57[id number] 2.16.840.1.649669.3.57[id number] 2.16.840.1.835354.3.57[id number] 2.16.840.1.170890.3.579.2.3[id number] 2.16.840.1.686973.3.57[id number] 2.16.840.1.202834.3.57[id number] 2.16.840.1.471201.3.57[id number] 2.16.840.1.586941.3.57[id number] 2.16.840.1.102117.3.579.[id number] 2.16.840.1.360362.3.57[id number] 2.16.840.1.258300.3.579.2.672065-50-4330Byhjead Health [id number] [id number] WhczipzquDHF3735 74e87uxj-6886-5c88-32a1-963239292qm5 Social History DateTypeDetailFacilityTobacco smoking status NHISTobacco smoking consumption unknownWYANDOT Work Phone: start: 26-79-4365Nil Assigned At BirthNot on file [facility] Work Phone: start: 03-03-2023 End: 57-44-0274Unsykvp smoking status NHISNever smoked tobacco (finding) [facility] Hospitaltart: 14-38-0352Iej Assigned At BirthFemale [facility] Hospitaltart: 03-25-2024 End: 15-44-7900Ajqwniudc beverage intakeLifetime non-drinker (finding)[facility] HealthcareStart: 03-25-2024 End: 30-40-6749Zpdlyxa of Social functionProMediTriHealth [facility]ull[facility] Memorial [facility] SystemStart: 03-25-2024 End: 87-02-6415Opbbqpk use panelProPaulding County Hospital SystemStart: 61-74-7563Xrqacgl use and exposureSmokeless tobacco non-userProPaulding County Hospital SystemStart: 15-66-0549Cydoprr intakeEx-drinker (finding)[facility] SystemStart: 70-34-0181Lbf hard is it for you to pay for the very basics like food, housing, medical care, and heatingNot hard at [facility] CenterShowNearby SystemStart: 05-04-2022 Gender identityIdentifies as female gender (finding)[facility] Start: 65-82-6863DqojijoqyNMHWTennova HealthcareStart: 40-62-5669IbpFdpivc (finding)[facility] Clinical Notes 06-30-2021 to 06-21-2025 Note Date & IqotOdarSnrxxwfz19-64-9653 History of Present illness Narrative* Cecilia Khan, WATERPROOFER - 06/21/2025 3:40 PM EST Reason for [...] nursing note reviewed. Exam conducted with a divorce lawyer present. Vitals: Estimated body mass index is 35.19 kg/m as calculated from the following: Height as of 09/24/19: 5' 6 . Weight as of this encounter: 218 lb. BP: Patient's last menstrual period was 11/19/2024 (approximate). Assessment/Plan ICD-10-CM 1. 28 weeks gestation of ([facility]) Z3A.28 POCT urinalysis dipstick manually resulted 2. Third trimester ([facility]) Z34.93 POCT urinalysis dipstick manually resulted 3. induced hypertension, antepartum ([facility]) O13.9 Creatinine Protein, urine, 24 hour Pt [...] of: Abad Canchola DO documented in this encounterSt. Joseph Medical CenterImongsfmlc45-01-9751 History of Present illness Narrative* DOMINGUEZ Villagran [...] nursing note reviewed. Exam conducted with a divorce lawyer present. Vitals: Estimated body mass index is 34.4 kg/m as calculated from the following: Height as of 09/24/19: 5' 6 . Weight as of this encounter: 213 lb 1.9 oz. BP: 124/82 Patient's last menstrual period was 11/19/2024 (approximate). Assessment/Plan ICD-10-CM 1. 28 weeks gestation of ([facility]) Z3A.28 POCT urinalysis dipstick manually resulted 2. Second trimester ([facility]) Z34.92 POCT urinalysis dipstick manually [...] behalf of: DOMINGUEZ Villagran documented in this encounterSt. Joseph Medical CenterAzxercgcox67-25-6121 History of Present illness Narrative* Say Roy [...] nursing note reviewed. Exam conducted with a divorce lawyer present. Vitals: Estimated body mass index is 33.25 kg/m as calculated from the following: Height as of 09/24/19: 5' 6 . Weight as of 04/15/25: 206 lb. BP: Patient's last menstrual period was 11/19/2024 (approximate). ASSESSMENT & PLAN ICD-10-CM 1. 24 weeks gestation of ([facility]) Z3A.24 POCT urinalysis dipstick manually resulted 2. Second trimester ([facility]) Z34.92 3. Diabetes mellitus screening [...] of: Say Roy NP documented in this encounterSt. Joseph Medical CenterKxhzwvjpic05-75-4426 History of Present illness Narrative* Chelsie Arango [...] nursing note reviewed. Exam conducted with a divorce lawyer present. Vitals: Estimated body mass index is 33.25 kg/m as calculated from the following: Height as of 09/24/19: 5' 6 . Weight as of this encounter: 206 lb. BP: 116/72 Patient's last menstrual period was 11/19/2024 (approximate). ASSESSMENT & PLAN ICD-10-CM 1. Second trimester ([facility]) Z34.92 Pap Smear 2. 21 weeks gestation of ([facility]) Z3A.21 Pap Smear 3. Nausea and vomiting during ([facility]) O21.9 metoclopramide (Reglan) 10 MG tablet 4. Vaginal discharge during , antepartum ([facility]) O26.899 N89.8 Return OB/Annual Exam: [...] of: Abad Canchola DO documented in this encounterSt. Joseph Medical CenterQmytnnanhf56-17-3207 History of Present illness Narrative* DOMINGUEZ Villagran [...] PLAN ICD-10-CM 1. 17 weeks gestation of ([facility]) Z3A.17 POCT urinalysis dipstick manually resulted Alpha fetoprotein, maternal Alpha fetoprotein, maternal 2. Second trimester ([facility]) Z34.92 POCT urinalysis dipstick manually resulted Alpha fetoprotein, maternal Alpha fetoprotein, maternal 3. Subchorionic hematoma in first trimester, single or unspecified fetus ([facility]) O41.8X10 O46.8X1 4. Screening, , for anatomic survey ([facility]) Z36.89 US OB 14+ weeks [...] behalf of: DOMINGUEZ Villagran documented in this encounterSt. Joseph Medical CenterGehsvczpiq68-62-4105 Note ADDENDUM #1 Current examination demonstrated an [...] Delivery: 08/26/25 Gestational Age as of 03/18/2025: 98p4o77-24-8278 History of Present illness Narrative* Chelsie Arango [...] nursing note reviewed. Exam conducted with a divorce lawyer present. Vitals: Estimated body mass index is 33.25 kg/m as calculated from the following: Height as of 09/24/19: 5' 6 . Weight as of this encounter: 206 lb. BP: 124/76 Patient's last menstrual period was 11/19/2024 (approximate). ASSESSMENT & PLAN ICD-10-CM 1. Second trimester ([facility]) Z34.92 POCT urinalysis dipstick manually resulted 2. 13 weeks gestation of ([facility]) Z3A.13 New OB: Patient presents [...] or undercooked meat, and stay away from [facility]. Patient has been consulted regarding any [...] of: Abad Canchola DO documented in this encounterSt. Joseph Medical CenterZsghjgkiri70-70-8934 History of Present illness Narrative* Cris Gross [...] dipstick manually resulted , unspecified gestational age ([facility]) - Type and screen; Future - ABO/Rh; Future - CBC and differential - Hemoglobin A1c - RPR - Rubella antibody, IgG - Hepatitis B surface antigen - Hepatitis C antibody - HIV-1 and HIV-2 antibodies - Rapid drug screen, urine; Future Encounter for supervision of normal first in first trimester [facility] - Rapid drug screen, urine; Future Nurse Note: Pt unsure of doing the [place] billion to one lab. Advised if patient changes mind to make sure both labs and [place] done at the same time. PVU. OB [...] or undercooked meat, and stay away from [facility]. Patient has also been advised to [...] concerns or questions. Nurse Visit Completed by: Cirs Gross MA documented in this encounterSt. Joseph Medical CenterRuohunptrx05-26-8478 History of Present illness Narrative* Say Roy [...] nursing note reviewed. Exam conducted with a divorce lawyer present. Vitals: Estimated body mass index is [...] of: Say Roy NP documented in this encounterSt. Joseph Medical CenterEzspjuywbo56-05-2284 History of Present illness Narrative* Misa Knight [...] nursing note reviewed. Exam conducted with a divorce lawyer present. Vitals: Estimated body mass index is [...] of: Abad Canchola DO documented in this encounterJoanna V[place] [address]Qirtdkslae51-40-0500 Miscellaneous Notes* Telephone Encounter - Lisa Tijerina - 12/03/2023 8:07 AM EDT ----- Message from YASMINE Singh sent at 03/05/2023 5:31 PM EDT ----- Regarding: wellness exam Due December of - Annel * Telephone Encounter - Lisa Tijerina - 12/03/2023 8:07 AM EDT Patient is switching pcp [facility]-23-[facility] Telephone encounter Note* Telephone Encounter - Lisa Tijerina - 12/03/2023 8:07 AM EDT ----- Message from YASMINE Singh sent at 03/05/2023 5:31 PM EDT ----- Regarding: wellness exam Due December of - Annel [facility]04-23-2024 Telephone encounter Note* Telephone Encounter - Lisa Tijerina - 12/03/2023 8:07 AM EDT Patient is switching pcp [facility]12-22-2023 History of Present illness Narrative* TinyYASMINE Valencia [...] YASMINE Singh 08/02/23 1251 documented in this encounterSalem [facility] Medical Center11-19-2021 NoteThe [place], [place] NAME: MEREDITH ANTONIO DATE OF : MEDICAL REC#: [id number] SANDWICH PEDDLER: [id number] BATISTAADMIGOR DATE: 06/30/2021 09:48:00 GRINDER NEEDLE TIP DATE: 06/30/2021 20:15 DICTATING PHYSICIAN: ABAD CANCHOLA DICTATION DATE: 06/30/2021 12:00 OPERATIVE NOTE OPERATION DATE: 06/30/2021 PROCEDURE NAME: Diagnostic laparoscopy. PREOPERATIVE DIAGNOSES: 1. Pelvic pain. 2. Menorrhagia. 3. Dysmenorrhea. POSTOPERATIVE DIAGNOSES: 1. Pelvic pain. 2. Menorrhagia. 3. Dysmenorrhea. 4. Endometriosis posterior cul-de-sac. ANESTHESIA: General. SURGEON: Abad Canchola DO SLICE CUTTING MACHINE OPERATOR HELPER: CECILIO Mendoza URINE OUTPUT: Yellow and [...] Canchola DO on 07/03/2021 09:18 AM [facility] Signed and Approved by: DR ABAD CANCHOLA . 07/03/2021 09:18:00[facility]Evaluation noteNo assessment information availableMer[facility] Work Phone: Evaluation note* Diagnosis Onset Date Resolution Status Anxiety and depression acute [facility] Work Phone: Evaluation note* Diagnosis Acute non-recurrent maxillary sinusitis- Primary Non-recurrent acute serous otitis media of both ears Elevated blood pressure reading Elevated blood pressure reading without diagnosis of hypertension documented in this encounter [facility] SystemEvaluation note* Diagnosis Female infertility Female infertility of unspecified origin PCOS (polycystic ovarian syndrome) Polycystic ovaries Abnormal uterine bleeding (AUB) Endometriosis Endometriosis, site unspecified Insulin resistance Other abnormal glucose documented in this encounter [facility] HealthcareEvaluation note* Diagnosis Amenorrhea Absence of menstruation Missed menses , unspecified gestational age ([facility]) Encounter for supervision of normal first in first trimester ([facility]) documented in this encounter [facility] HealthcareEvaluation note* Diagnosis Nausea and vomiting during - Primary Currently in first trimester with unknown gestational age Constipation, unspecified constipation type documented in this encounter [facility] HealthcareEvaluation note* Diagnosis Second trimester ([facility]) state, incidental 13 weeks gestation of ([facility]) documented in this encounter [facility] HealthcareEvaluation note* Diagnosis 17 weeks gestation of ([facility]) Second trimester ([facility]) state, incidental Subchorionic hematoma in first trimester, single or unspecified fetus ([facility]) Screening, , for anatomic survey ([facility]) Encounter for anatomic survey Exposure to STD Vaginal discharge Leukorrhea, not specified as infective documented in this encounter [facility]Evaluation note* Diagnosis Second trimester ([facility]) state, incidental 21 weeks gestation of ([facility]) Nausea and vomiting during ([facility]) Vaginal discharge during , antepartum ([facility]) documented in this encounter [facility]Evaluation note* Diagnosis 24 weeks gestation of ([facility]) Second trimester ([facility]) state, incidental Diabetes mellitus screening Screening for diabetes mellitus documented in this encounter [facility]Evaluation note* Diagnosis size inconsistent with dates ([facility])- Primary 28 weeks gestation of ([facility]) Second trimester ([facility]) state, incidental documented in this encounter [facility]Evaluation [facility]* Diagnosis 28 weeks gestation of ([facility]) Third trimester ([facility]) state, incidental induced hypertension, antepartum ([facility]) Transient hypertension of , antepartum documented in this encounter [facility] HealthcareInstructionsNot on filedocumented in this encounterProMediTriHealth McCull[facility] Hospital SystemInstructionsNot on filedocumented in this encounterProPaulding County Hospital System Summary Purpose Family History No [...] and content) DATE CREATED AUTHOR 06/13/2022 [facility] DATE CREATED AUTHOR AUTHOR'S ORGANIZ ATION 08/09/2023 [facility] DATE CREATED AUTHOR AUTHOR'S ORGANIZ ATION 03/07/2025 [facility] DATE CREATED AUTHOR AUTHOR'S ORGANIZ ATION 06/24/2025 [facility] EPIC Care Teams (unrecognized sec tion and content) Team MemberRelationshipSpecialtyStart DateEnd Date Annel Teresa, [employer] - LABOR DELIVERY RN [address] [place] [address] [facility] - [facility] Pract[facility]/10/23 Team Status: Active Member [...] DateEnd Date Michelle Pabon MD [address] [place] [id number] PCP - Generalmily Medicine03/25/24Team MemberRelationshipSpecialtyStart DateEnd Date Annel Teresa APRN-GUI DEVELOPER [address] [place] [address] PCP - GeneralFamily Medicine01/18/20Team MemberRelationshipSpecialtyStart DateEnd Date Michelle Pabon MD [address] [place] [facility] [place] [address] PCP - GeneralFamily Medicine03/25/24Team MemberRelationshipSpecialtyStart DateEnd Date Michelle Pabon MD [address] [facility] [place] [address] PCP - GeneralFamily Medicine03/25/24Team MemberRelationshipSpecialtyStart DateEnd Date Michelle Pabon MD [address] [place] [facility] [place] [address] PCP - GeneralFamily Medicine03/25/24Team MemberRelationshipSpecialtyStart DateEnd Date Michelle Pabon MD [address] [place] [facility] [place] [address] PCP - GeneralFamily Medicine03/25/24Team MemberRelationshipSpecialtyStart DateEnd Date Michelle Pabon MD [address] [place] [facility] [place] [address] PCP - GeneralFamily Medicine03/25/24Team MemberRelationshipSpecialtyStart DateEnd Date Michelle Pabon MD [address] [facility] [place] [address] PCP - GeneralFamily Medicine03/25/24Team MemberRelationshipSpecialtyStart DateEnd Date Michelle Pabon MD [address] [facility] [place] [address] PCP - GeneralFamily Medicine03/25/24Team MemberRelationshipSpecialtyStart DateEnd Date Michelle Pabon MD [address] [facility] [place] [address] PCP - GeneralFamily Medicine03/25/24Team MemberRelationshipSpecialtyStart DateEnd Date Michelle Pabon MD [address] [facility] [place] [address] PCP - GeneralFamily Medicine03/25/24Team MemberRelationshipSpecialtyStart DateEnd Date Annle Teresa APRN - [facility] [address] [place] [address] PCP - GeneralNurse Practitioner01/10/23Team MemberRelationshipSpecialtyStart Date End Date Michelle Pabon MD [address] [facility] [place] [address] PCP - GeneralFamily Medicine03/25/24Team MemberRelationshipSpecialtyStart DateEnd Date Michelle Pabon MD [address] [facility] [place] [address] PCP - GeneralFamily Medicine03/25/24Team MemberRelationshipSpecialtyStart DateEnd Date Michelle Pabon MD [address] [facility] [place] [address] PCP - GeneralFamily Medicine03/25/24Team MemberRelationshipSpecialtyStart DateEnd Date Michelle Pabon MD [address] [place] [facility] [place] [phone] PCP - [facility]03/25/24Team MemberRelationshipSpecialtyStart DateEnd Date Michelle Pabon MD [address] [facility] [place] [address] PCP - [facility]03/25/24Te MemberRelationshipSpecialtyStart DateEnd Date Michelle Pabon MD [address] [place] [facility] [place] [address] PCP - [facility]03/25/24Te MemberRelationshipSpecialtyStart DateEnd Date Michelle Pabon MD [address] [place] [facility] [place] [address] PCP - [facility]03/25/24 Goals (unrecognized section and content) Goals [...] BE BASED ON THE PRIMARY CLINICAL RECORDS. [facility] provides no warranty or guarantee of the accuracy or completeness of information in this document.
--- OUTSIDE RECORDS SUMMARY | 2025-07-01 16:02 | XMS_ITS | Encounter Summary ---
Author Organization [facility] Address [address] [place] [address] Care Team Providers Care Kettle Loader Name Role Phone Michelle Pabon MD Primary Care Provider [phone] Encounter Details DateTypeDepartmentCare Team (Latest Contact Info)Pdnmjwimclk43/17/2025amboo flowsheet [facility] [address] [place] [address] Patricia Roy, MEDICAL EDUCATION MANAGER [address] [place] [address] Social History Tobacco UseTypesPacks/DayYears UsedDateSmoking Tobacco: NeverAlcohol UseStandard Drinks/WeekCommentsNever0 (1 standard drink = 0.6 oz pure alcohol) Estimated Date of ZsyadtszSxakediqVoa28/15/2026Based on last menstrual period of 11/19/2024 (Approximate)Sex and Gender InformationValueDate RecordedSex Assigned at BirthNot on fileLegal QmzGeehfs11/15/2023 10:09 PM EDTGender IdentityNot on fileSexual OrientationNot on filedocumented as of this encounter Plan of Treatment DateTypeDepartmentCare Team (Latest Contact Info)Ildpuhssfmj19/25/2025 10:40 AM ESTRoutine [facility] [address] [place] [address] Abad Canchola DO [address] [place], [facility]11 documented as of this encounter Visit Diagnoses Not on filedocumented in this encounter Care Teams Team MemberRelationshipSpecialtyStart DateEnd Date Michelle Pabon MD [address] [place] [phone] PCP - GeneralFamily Medicine03/25/24documented as of this encounter
--- OUTSIDE RECORDS SUMMARY | 2025-07-01 16:02 | XMS_ITS | Encounter Summary ---
Author Organization [facility] Address [address] [place] [address] Care Team Providers Care Feed Blender Name Role Phone Michelle Pabon MD Primary Care Provider [phone] Encounter Details DateTypeDepartmentCare Team (Latest Contact Info)Fduyzjpyvtq15/12/2025linisync Result Encounter [facility] Unsolicited Abad Canchola DO [address] [place], [place] [id number] Social History Tobacco UseTypesPacks/DayYears UsedDateSmoking Tobacco: NeverAlcohol UseStandard Drinks/WeekCommentsNever0 (1 standard drink = 0.6 oz pure alcohol) Estimated Date of FtyfdnsbDutsnnqfTjz06/15/2026ased on last menstrual period of 11/19/2024 (Approximate)Sex and Gender InformationValueDate RecordedSex Assigned at BirthNot on fileLegal JqdAlsafd18/15/2023 10:09 PM EDTGender IdentityNot on fileSexual OrientationNot on filedocumented as of this encounter Plan of Treatment DateTypeDepartmentCare Team (Latest Contact Info)Lupktaawjjr00/25/2025 10:40 AM ESTRoutine [facility] [address] [place] [address] Abad Canchola DO [address] [place] [address] documented as of this encounter Procedures Procedure NamePriorityDate/TimeAssociated DiagnosisCommentsTBH CREATININERoutine 06/23/2025 4:19 PM EST SRMCOH PROTHROMBIN TIME INR W/O NNUEBqroijg17/12/2025 4:19 PM EST [facility] STMBblnykp58/12/2025 4:19 PM EST [facility] HRCOKvrlhtk62/12/2025 4:19 PM EST ALL URIC EHESAcmjcnq42/12/2025 4:19 PM EST ALL QVTLgyqraw82/12/2025 4:19 PM EST ALL CBC WITH AUTO SPXKBhpxulg63/12/2025 4:19 PM EST ALL CQTCjsjypf60/12/2025 4:19 PM EST TBH URINE T PROTEIN CREAT IJWAVYmcwwhf49/12/2025 4:10 PM EST TBH TOTAL PROTEIN 24 HOUR TNQBIFpuslut14/12/2025 7:45 AM EST documented in this encounter Results * ALL LDH (06/23/2025 4:19 PM EST)ComponentValueRef RangeTest MethodAnalysis TimePerformed AtPathologist SignatureLACTATE [id number] - 234 U/LTBH Specimen (Source)Anatomical Location / LateralityCollection Method / Volume Collection TimeReceived Time06/23/2025 4:19 PM EST06/23/2025 4:20 PM EST Narrative [facility] - 06/23/2025 5:17 PM EST Authorizing ProviderResult TypeResult StatusCorey Jesika DOCLINISYNCFinal Result Performing OrganizationAddressCity/State/ZIP CodePhone Number [facility] * (ABNORMAL) [facility] AST (06/23/2025 4:19 PM EST)ComponentValueRef RangeTest Method Analysis TimePerformed AtPathologist SignatureASPARTATE AMINO TRANSFERASE9(L) 15 - 37 U/LTBHSpecimen (Source)Anatomical Location / LateralityCollection Method / VolumeCollection TimeReceived Time06/23/2025 4:19 PM EST06/23/2025 4:20 PM EST Narrative [facility] - 06/23/2025 5:17 PM EST Authorizing ProviderResult TypeResult StatusCorey Jesika DOCLINISYNCFinal Result Performing OrganizationAddressCity/State/ZIP CodePhone Number [facility] * ALL URIC ACID (06/23/2025 4:19 PM EST)ComponentValueRef RangeTest Method Analysis TimePerformed AtPathologist SignatureURIC ACID4.32.6 - 6.0 mg/dLTBH Specimen (Source)Anatomical Location / LateralityCollection Method / Volume Collection TimeReceived Time06/23/2025 4:19 PM EST06/23/2025 4:20 PM EST Narrative CLIN[facility] - 06/23/2025 5:17 PM EST Authorizing ProviderResult TypeResult StatusCorey Jesika DOCLINISYNCFinal Result Performing OrganizationAddressCity/State/ZIP CodePhone Number [facility] * (ABNORMAL) [facility] CREATININE (06/23/2025 4:19 PM EST)ComponentValueRef RangeTest MethodAnalysis TimePerformed AtPathologist SignatureCREATININE0.52(L)0.55 - 1.02 mg/dLTBHTBH EGFR-AF ANGOLAN>60>=60 mL/min/1.73m 2TBHTBH EGFR-NON AF ANGOLAN>60>=60 mL/min/1.73m 2TBHSpecimen (Source)Anatomical Location / LateralityCollection Method / VolumeCollection TimeReceived Time06/23/2025 4:19 PM EST06/23/2025 4:20 PM EST Narrative CLIN[facility]NC - 06/23/2025 5:17 PM EST Authorizing ProviderResult TypeResult StatusCorey Jesika DOCLINISYNCFinal Result Performing OrganizationAddressCity/State/ZIP CodePhone Number [facility] * (ABNORMAL) ALL BUN (06/23/2025 4:19 PM EST)ComponentValueRef RangeTest Method Analysis TimePerformed AtPathologist SignatureBLOOD UREA NITROGEN6.0(L)7.0 - 18.0 mg/dLTBHSpecimen (Source)Anatomical Location / LateralityCollection Method / VolumeCollection TimeReceived Time06/23/2025 4:19 PM EST06/23/2025 4:20 PM EST Narrative CLIN[facility]YNC - 06/23/2025 5:17 PM EST Authorizing ProviderResult TypeResult StatusCorey Jesika DOCLINISYNCFinal Result Performing OrganizationAddressCity/State/ZIP CodePhone Number [facility] * (ABNORMAL) ALL CBC WITH AUTO DIFF (06/23/2025 4:19 PM EST)ComponentValueRef RangeTest MethodAnalysis TimePerformed AtPathologist SignatureTBH WBC12.6(H) 4.0 - 11.0 10 3/uLTBHTBH RBC4.494.20 - 5.40 10 6/uLTBHTBH HGB13.612.0 - 16.0 g/dLTBHTBH HCT38.936.0 - 48.0 %TBHTBH MCV86.681.0 - 99.0 fLTBHTBH MCH30.326.7 - 34.0 pgTBHTBH MCHC35.029.9 - 35.2 g/dLTBHTBH RDW12.811.0 - 15.0 %TBHTBH PLT 183866 - 450 10 3/uLTBHTBH MPV10.79.5 - 13.5 [...] Result Performing OrganizationAddressCity/State/ZIP CodePhone Number [facility] * [facility] APTT (06/23/2025 4:19 PM EST)ComponentValueRef RangeTest MethodAnalysis TimePerformed AtPathologist SignaturePARTIAL THROMBOPLASTIN TIME26.122.3 - 36.2 secTBHSpecimen (Source)Anatomical Location / LateralityCollection Method / VolumeCollection TimeReceived Time06/23/2025 4:19 PM EST06/23/2025 4:20 PM EST Narrative CLIN[facility]YNC - 06/23/2025 4:49 PM EST Authorizing ProviderResult TypeResult StatusCorey Jesika DOCLINISYNCFinal Result Performing OrganizationAddressCity/State/ZIP CodePhone Number [facility] * SRMCOH PROTHROMBIN TIME INR W/O COUM [...] Jesika DOCLINISYNCFinal Result Performing OrganizationAddressCity/State/ZIP CodePhone Number [facility] * (ABNORMAL) TBH URINE T PROTEIN CREAT RATIO (06/23/2025 4:10 PM EST)Component ValueRef RangeTest MethodAnalysis TimePerformed AtPathologist SignatureTOTAL PROTEIN URINE FOLWVC76.0(H)<=11.9 mg/dLTBHCREATININE URINE CIOTYY400.5320.00 - 300.00 mg/dLTBHPROTEIN CREATININE RATIO URINE0.09TBHSpecimen (Source) Anatomical Location / LateralityCollection Method / VolumeCollection Time Received Time06/23/2025 4:10 PM EST06/23/2025 4:21 PM EST Narrative [facility]IN[facility] - 06/24/2025 12:35 PM EST Authorizing ProviderResult TypeResult StatusCorey Jesika DOCLINISYNCFinal Result Performing OrganizationAddressCity/State/ZIP CodePhone Number [facility] * (ABNORMAL) [facility] TOTAL PROTEIN 24 HOUR URINE (06/23/2025 7:45 AM EST)Component ValueRef RangeTest MethodAnalysis TimePerformed AtPathologist SignatureTOTAL PROTEIN URINE CGFYOP55.2(H)<=11.9 mg/dLTBHTOTAL VOLUME 24 HOUR URINE1,780 mL/24hrTBHTBH TOTAL PROTEIN 24 HOUR UTAQP674.2(H)<=149.1 mg/24hrTBHSpecimen (Source)Anatomical Location / LateralityCollection Method / VolumeCollection TimeReceived Time06/23/2025 7:45 AM EST06/23/2025 4:21 PM EST Narrative CLIN[facility]YNC - 06/24/2025 12:46 PM EST Authorizing ProviderResult TypeResult StatusCorey Jesika DOCLINISYNCFinal Result Performing OrganizationAddressCity/State/ZIP CodePhone Number [facility] documented in this encounter Visit Diagnoses Not on filedocumented in this encounter Care Teams Team MemberRelationshipSpecialtyStart DateEnd Date Michelle Pabon MD [address] [place] [address] PCP - GeneralFamily Medicine03/25/24documented as of this encounter
[2025-07-01 16:24] VITALS: BP 117/83; PULSE 85
== END 2025-07-01 16:40 | disposition home or self-care (01) ==
LOC: FBCO 15:57 → FBC 15:59
PROVIDERS: PCP Family Medicine; Visit Provider Obstetrics & Gynecology
DX: O16.3 Unspecified maternal hypertension, third trimester (principal)
CPT/HCPCS: 59025

== ENCOUNTER 2025-07-04 10:27 | Observation (INO) | payer OTHER, SELFPAY ==
--- OUTSIDE RECORDS SUMMARY | 2025-06-21 15:00 | XMS_ITS | Encounter Summary ---
Author Organization [facility] Address [address] [place] [address] Care Team Providers Care Technical Supervisor Name Role Phone Michelle Pabon MD Primary Care Provider [phone] Encounter Details DateTypeDepartmentCare Team (Latest Contact Info)Fgtxafofibe52/10/2025 3:00 PM ESTAncillary Procedure [facility] [address] [place] [address] size inconsistent with dates ([facility]) Social History Tobacco UseTypesPacks/DayYears UsedDateSmoking Tobacco: NeverAlcohol UseStandard Drinks/WeekCommentsNever0 (1 standard drink = 0.6 oz pure alcohol) Estimated Date of LyznarfnSlhiaozwVmf64/15/2026Based on last menstrual period of 11/19/2024 (Approximate)Sex and Gender InformationValueDate RecordedSex Assigned at BirthNot on fileLegal TocOiulfk07/15/2023 10:09 PM EDTGender IdentityNot on fileSexual OrientationNot on filedocumented as of this encounter Plan of Treatment DateTypeDepartmentCare Team (Latest Contact Info)Cuihbwcknbh59/25/2025 10:40 AM ESTRoutine [facility]A [address] [place] [address] Abad Canchola DO [address] [place], [place] [id number] documented as of this encounter Procedures Procedure NamePriorityDate/TimeAssociated DiagnosisCommentsUS OB FOLLOW UP TRANSABDOMINAL RZDDDLOXFxwlach88/10/2025 3:24 PM EST size inconsistent with dates ([facility]) documented in this encounter Results * OB [...] BY: Miguel Thompson MD Authorizing ProviderResult TypeResult StatusPse&G [facility] NPIMG OB US PROCEDURESFinal Result documented in this encounter Visit Diagnoses Diagnosis size inconsistent with dates ([facility]) documented in this encounter Care Teams Team MemberRelationshipSpecialtyStart DateEnd Date Michelle Pabon MD [address] [place] [address] PCP - GeneralFamily Medicine03/25/24documented as of this encounter
--- OUTSIDE RECORDS SUMMARY | 2025-06-21 15:40 | XMS_ITS | Encounter Summary ---
Author Organization [facility] Address [address] [place] [address] Care Team Providers Care Tube Molder Fiberglass Name Role Phone Michelle Pabon MD Primary Care Provider [phone] Reason for Visit * ReasonCommentsRoutine Visit Encounter Details DateTypeDepartmentCare Team (Latest Contact Info)Gyxffnctqcf78/10/2025 3:40 PM ESTRoutine [facility] [address] [place] [phone] Abad Canchola DO [address] [facility] [address] [place], [facility]11 28 weeks gestation of ([facility]); Third trimester ([facility]); induced hypertension, antepartum ([facility]) Social History Tobacco UseTypesPacks/DayYears UsedDateSmoking Tobacco: NeverAlcohol UseStandard Drinks/WeekCommentsNever0 (1 standard drink = 0.6 oz pure alcohol) Estimated Date of OmselmaeThmclapcOwz30/15/2026ased on last menstrual period of 11/19/2024 (Approximate)Sex and Gender InformationValueDate RecordedSex Assigned at BirthNot on fileLegal KhqGzoqje44/15/2023 10:09 PM EDTGender IdentityNot on fileSexual OrientationNot on filedocumented as of this encounter Last Filed Vital Signs Vital SignReadingTime TakenCommentsBlood Chrbbmqi927/8611 3:50 PM EST 130/80Pulse--Temperature--Respiratory Rate--Oxygen Saturation--Inhaled Oxygen Concentration--Trsdjl66.9 kg (218 lb)06/21/2025 3:50 PM ESTHeight--Body Mass [...] nursing note reviewed. Exam conducted with a bobbin loose end finder present. Vitals: Estimated body mass index is 35.19 kg/m?? as calculated from the following: Height as of 09/24/19: 5' 6 . Weight as of this encounter: 218 lb. BP: Patient's last menstrual period was 11/19/2024 (approximate). Assessment/Plan ICD-10-CM 1. 28 weeks gestation of ([facility]) Z3A.28 POCT urinalysis dipstick manually resulted 2. Third trimester ([facility]) Z34.93 POCT urinalysis dipstick manually resulted 3. induced hypertension, antepartum ([facility]) O13.9 Creatinine Protein, urine, 24 hour [...] Plan of Treatment DateTypeDepartmentCare Team (Latest Contact Info)Xxjmdgodgvq46/25/2025 10:40 AM ESTRoutine [facility] [address] [place] [address] Abad Canchola DO [address] [place] [address] NameTypePriorityAssociated DiagnosesOrder ScheduleCreatinineLabRoutine induced hypertension, antepartum ([facility]) [...] 06/21/2025 (Approximate), Expires: 06/21/2026UNLabRoutine induced hypertension, antepartum ([facility]) Expected: 06/21/2025, Expires: 06/21/2026Protein:Creatinine Ratio, UrineLab Routine induced hypertension, antepartum ([facility]) Ordered: 06/21/2025documented as of this encounter Procedures Procedure NamePriorityDate/TimeAssociated DiagnosisCommentsPOCT URINALYSIS AOKOFLHYUtvwgqb57/10/2025 3:47 PM EST 28 weeks gestation of ([facility]) Third trimester ([facility]) documented in this encounter Results * POCT [...] DateEnd Date Michelle Pabon MD [address] [place] [address] PCP - GeneralFamily Medicine03/25/24documented as of this encounter
--- OUTSIDE RECORDS SUMMARY | 2025-06-28 15:30 | XMS_ITS | Encounter Summary ---
Author Organization [facility] Address [address] [facility] [place] [address] Care Team Providers Care Type Cutter Name Role Phone Michelle Pabon MD Primary Care Provider [phone] Reason for Visit * ReasonCommentsRoutine Visit Encounter Details DateTypeDepartmentCare Team (Latest Contact Info)Keadobajsft13/17/2025 3:30 PM ESTRoutine [facility] [address] [place] [address] Patricia Roy, DIRT SUPERVISOR [address] [place] [address] Third trimester ([facility]); 31 weeks gestation of ([facility]); Hypertension during in third trimester, unspecified hypertension in type ([facility]) Social History Tobacco UseTypesPacks/DayYears UsedDateSmoking Tobacco: NeverAlcohol UseStandard Drinks/WeekCommentsNever0 (1 standard drink = 0.6 oz pure alcohol) Estimated Date of YfjnvfwaYpgdibvxUbg58/15/2026Based on last menstrual period of 11/19/2024 (Approximate)Sex and Gender InformationValueDate RecordedSex Assigned at BirthNot on fileLegal AisJltmxe27/15/2023 10:09 PM EDTGender IdentityNot on fileSexual OrientationNot on filedocumented as of this encounter Last Filed Vital Signs Vital SignReadingTime TakenCommentsBlood Hmgdyzsj783/9406/28/2025 3:29 PM EST Pulse--Temperature--Respiratory Rate--Oxygen Saturation--Inhaled Oxygen Concentration--Hkjslj012 kg (223 lb)06/28/2025 3:29 PM ESTHeight--Body Mass [...] nursing note reviewed. Exam conducted with a bottom cementer present. Vitals: Estimated body mass index is 35.99 kg/m?? as calculated from the following: Height as of 09/24/19: 5' 6 . Weight as of this encounter: 223 lb. BP: (!) 140/94 Patient's last menstrual period was 11/19/2024 (approximate). Assessment/Plan ICD-10-CM 1. Third trimester ([facility]) Z34.93 POCT urinalysis dipstick manually resulted 2. 31 weeks gestation of ([facility]) Z3A.31 3. Hypertension during in third trimester, unspecified hypertension in type ([facility]) O16.3 US biophysical profile w non [...] Plan of Treatment DateTypeDepartmentCare Team (Latest Contact Info)Nwxcqrlonrt00/25/2025 10:40 AM ESTRoutine [facility] [address] [place] [address] Abad Canchola, [address] [place], [place] [id number] NameTypePriorityAssociated DiagnosesOrder ScheduleUS biophysical profile w non stress testImagingRoutine Hypertension during in third trimester, unspecified hypertension in type ([facility]) Expected: 06/28/2025 (Approximate), Expires: 12/26/2025documented as of this encounter Procedures Procedure NamePriorityDate/TimeAssociated DiagnosisCommentsPOCT URINALYSIS EOCGKXWCJeolgsf03/17/2025 4:05 PM EST Third trimester ([facility]) documented [...] PM EST Narrative Authorizing ProviderResult TypeResult StatusKrkylah Roy NPPOINT OF CARE TEST ENTER/EDIT ORDERABLESFinal Result documented in this encounter Visit Diagnoses Diagnosis Third trimester ([facility]) state, incidental 31 weeks gestation of ([facility]) Hypertension during in third trimester, unspecified hypertension in type ([facility]) documented in this encounter Care Teams Team MemberRelationshipSpecialtyStart DateEnd Date Michelle Pabon MD [address] [place] [address] PCP - GeneralFamily Medicine03/25/24documented as of this encounter
--- OUTSIDE RECORDS SUMMARY | 2025-07-04 10:32 | XMS_ITS | CCD ---
Author Organization [facility] Care Team Providers Care Pricing Manager Name Role Phone JESIKA, DR CALVIN Primary [...] Unavailable JESIKA, DR CALVIN Attending Unavailable Malick HUMAN RESOURCES MGR - ANIMAL REHABILITATOR, Annel Concha Primary Care Provider ANNEL TERESA Referring Unavailable MALICK, ANNEL Concha Primary Care Unavailable Michelle Pabon MD Primary Care Provider Malick HUMAN RESOURCES MGR-SCHOOL TEACHER, Annel Heath Primary Care Provider Unavailable Primary Care Provider Michelle Hernandez MD Primary Care Provider Michelle Pabon MD Primary Care Provider Malick APARICIO - ANIMAL REHABILITATOR, Annel Concha Primary Care Provider RAFAEL LARA Referring Unavailable MALICK, ANNEL Kern Primary Care Unavailable Cm LAUGHLIN, Michelle Primary Care Provider [phone] ABAD CANCHOLA Attending Unavailable SAY ROY Attending Unavailable ABAD CANCHOLA Attending Unavailable SHAGUFTA PERKINS Attending Unavailable GREGORIO SHAGUFTA Referring Unavailable ABAD CANCHOLA Attending Unavailable SAY ROY Attending Unavailable GREGORIO, SHAGUFTA Attending Unavailable SAY ROY Referring Unavailable ABAD CANCHOLA Attending Unavailable Medications Current Medications MedicationDrug Class(es)DatesSig (Normalized)Sig (Original)amoxicillin 875 mg / clavulanate 125 mg oral tablet (1 source)Penicillin-class AntibacterialStart: 08-02-2023 End: 95-12-1986rddu 1 tablet by mouth once in the morningamoxicillin-pot clavulanate (AUGMENTIN) 875-125 mg per tablet Take 1 tablet by mouth in the morningand 1 tablet before bedtime. Do all this for 7 days. 14 tablet 0 08/02/2023 08/09/2023 Activedocusate sodium 100 mg oral capsule (4 sources)Start: 01-13-2025 End: 96-67-5281cgua 1 capsule by mouth in the morningdocusate sodium (Colace) 100 MG capsule Indications: Constipation, unspecified constipation type Take 1 capsule (100 mg) by mouth in the morning and 1 capsule (100 mg) before bedtime. Do all this for10 days. 20 capsule 01/13/2025 01/23/2025 Activeloratadine 10 mg oral tablet (6 sources) End: 13-10-2907cfsp 1 tablet by mouth once dailyloratadine (Claritin) 10 MG tablet Take 10 mg by mouth Daily 01/13/2025 Discontinuedlosartan potassium 25 mg oral tablet (5 sources)Angiotensin 2 Receptor BlockerStart: 02-28-2024 End: 23-51-1050xaii 25 mg by mouth once dailyLosartan Active 25 MG PO Daily February 28, 2024 12:00ammetFORMIN hydrochloride 500 mg oral tablet (6 sources)BiguanideStart: 12-01-2024 End: 24-54-9943fnfk 1 tablet by mouth at mealtimemetFORMIN (Glucophage) 500 MG tablet Indications: PCOS (polycystic ovarian syndrome) , Insulin resistance Take 1 tablet (500 mg) by mouth in the morning. Take with meals. 30 tablet 11 12/01/2024 01/13/2025 Discontinuedmetoclopramide 10 mg oral tablet (20 sources)Dopamine-2 Receptor AntagonistStart: 04-15-2025 End: 11-25-1025fofcuyznvbefam (Reglan) 10 MG tablet Indications: Nausea and vomiting during (HHS-HCC) Take 1 tablet (10 mg) by mouth in the morning and 1 tablet (10 mg) at noon and 1 tablet (10 mg) in theevening. Take before meals. Take 1 tablet by mouth 30 minutes prior to meals 3 times daily as needed for nausea. 90 tablet 1 04/15/2025 ActiveStart: 01-13-2025 End: 87-85-5416ykczsNXPNTVGY 0.0075 mg/mg vaginal gel (3 sources)Nitroimidazole AntimicrobialStart: 05-10-2025 End: 59-41-7258bbvztMHGINBJG (Metrogel) 0.75 % vaginal gel Indications: BV (bacterial vaginosis) Insert into the vagina Daily for 5 days 70 g 05/10/2025 05/15/2025 ActiveMultiple Vitamin (multivitamin) tablet (6 sources) End: 61-49-5063gssq 1 tablet by mouth once dailyMultiple Vitamin (multivitamin) tablet Take 1 tablet by mouth Daily 01/13/2025 Discontinuedtake 1 tablet by mouth once dailyMultiple Vitamin (multivitamin) tablet Take 1 tablet by mouth Daily Bitudk29 hr NIFEdipine 30 mg extended release oral tablet (7 sources)Dihydropyridine Calcium Channel BlockerStart: 69-46-4572gfal 1 tablet by mouth once daily, then take 1 tablet by mouth every twenty-four hours NIFEdipine CC (Adalat CC) 30 MG 24 hr tablet Take 30 mg by mouth Daily 10/20/2024 Activeondansetron 4 mg disintegrating oral tablet (20 sources)Serotonin-3 Receptor AntagonistStart: 57-02-9197nhmo 1 tablet by mouth every eight hours as needed for nauseaondansetron ODT (Zofran-ODT) 4 MG disintegrating tablet Take 4 mg by mouth every 8 (eight) hours ifneeded for nausea 02/22/2025 ActiveStart: 01-11-2025 End: 34-11-6550ycbw 1 tablet by mouth every six hours for nauseaondansetron ODT (Zofran-ODT) 4 MG disintegrating tablet Indications: Nausea and vomiting during ([facility]) Take 1 tablet (4 mg) by mouth every 6 (six) hours if needed for nausea or vomiting 30 tablet 2 01/11/2025 02/10/2025 Activephentermine hydrochloride 37.5 mg oral tablet (3 sources)Sympathomimetic Amine AnorecticStart: 01-09-2023 End: 12-49-1149paid 33-33.9 tablets by mouth once daily before breakfast phentermine (ADIPEX-P) 37.5 mg tablet Indications: Class 1 obesity due to excess calories without serious comorbidity with body mass index (BMI) of 33.0 to 33.9 in adult Take 1 tablet (37.5 mg total)by mouth every morning before breakfast. 30 tablet 0 03/05/2023 08/02/2023 Discontinued (Therapy completed)predniSONE 20 mg oral tablet (1 source)Start: 08-02-2023 End: 03-79-8731pcex 1 tablet by mouth at mealtimepredniSONE (DELTASONE) 20 mg tablet Take 1 tablet (20 mg total) by mouth in the morning for 7 days.Take with food. 7 tablet 0 08/02/2023 08/09/2023 ActivePrenatal 27-1 MG tablet (20 sources)take 1 tablet by mouth once dailyPrenatal 27-1 MG tablet Take 1 tablet by mouth Daily ActiveSemaglutide (Weight Loss) (1 source)Start: 00-08-8277Npztirajfpw (Weight Loss) (Wegovy) 0.25 mg/0.5 mL pen injector Active 0.25 MG SUBCUT every week February 28, 2024 12:00am administer weeks 1 through 4 of therapy Completed/Discontinued Medications MedicationDrug Class(es)DatesSig (Normalized)Sig (Original)24 hr buPROPion hydrochloride 150 mg extended release oral tablet (10 sources)AminoketoneStart: 03-06-2024 End: 58-43-6708rdez 1 tablet by mouth every twenty-four hours in the morning buPROPion XL (Wellbutrin XL) 150 MG 24 hr tablet Take 150 mg by mouth in the morning. 03/06/2024 12/01/2024 DiscontinuedStart: 12-05-2023 End: 69-50-5494bejd 150 mg by mouth once daily in the morningBupropion Hcl Active 150 MG PO Every morning January 07, 2024 12:59pm End: 70-05-7318rhHHFIuci SR (Wellbutrin SR) 150 MG 12 hr tablet 12/01/2024 DiscontinuedDULoxetine 60 mg delayed release oral capsule (12 sources)Serotonin and Norepinephrine Reuptake InhibitorStart: 12-05-2023 End: 85-40-5706uzzq 1 capsule by mouth once dailyDuloxetine (Cymbalta) 30 mg capsule,delayed release(DR/EC) Discontinued 30 MG PO Daily 14 14 December 05, 2023 12:00am December 18, 2023 1:01pmStart: 01-09-2023 End: 66-02-3891tcqc 1 capsule by mouth once dailyDuloxetine (Cymbalta) 60 mg capsule,delayed release(DR/EC) Discontinued 60 MG PO Daily December 05, 2023 12:00am December 05, 2023 4:15pmethinyl estradiol 0.035 mg / norgestimate 0.25 mg oral tablet (8 sources)Progestin, EstrogenStart: 01-16-2024 End: 10-34-4978vcdnyglswoyi-ethinyl estradiol (Ortho-Cyclen) 0.25-35 MG-MCG tablet Indications: Encounter for surveillance of contraceptive pills Take 1 tablet by mouth Daily 84 tablet 3 01/16/2024 12/01/2024 DiscontinuedStart: 75-66-8744ikkp 1 tablet by mouth once dailyNorgestimate-Ethinyl Estradiol Active 1 TAB PO Daily December 05, 2023 12:00amStart: 30-38-7641axqm 1 tablet by mouth once in the morningnorgestimate-ethinyl estradioL (ORTHO-CYCLEN) 0.25-35 mg-mcg per tablet Take 1 tablet by mouth in the morning. 12/18/2022 ActiveStart: 81-75-7107zxvp 1 tablet by mouth once in the morningnorgestimate-ethinyl estradioL (ORTHO-CYCLEN) 0.25-35 mg-mcg per tablet Take 1 tablet by mouth in the morning. 0 12/18/2022 Clgaxi21 hr loratadine 10 mg / pseudoephedrine sulfate 240 mg extended release oral tablet (5 sources)alpha-Adrenergic AgonistStart: 08-02-2023 End: 33-15-4240dlhl 10-240 mg by mouth every twenty-four hours in the morning Loratadine-D 24HR 10-240 MG 24 hr tablet Take 1 tablet by mouth in the morning. 08/02/2023 12/01/2024 DiscontinuedStart: 08-02-2023 End: 53-37-3493irbj 1 tablet by mouth once in the [...] unspecified; Translations: [Mixed anxiety and depressive disorder]Onset: 715000-18-8388MowrwibIbciycqpwoosf (5 sources)Endometriosis of pelvic peritoneum; Translations: [Endometriosis (clinical)]Onset: 533482-64-3851WasevyoSpruxk infertility (2 sources)Female infertility; Translations: [Female infertility, unspecified] 87-95-7301YmittouPkiqnwwmdavb complicating ; childbirth and the puerperium (2 sources)-induced hypertension; Translations: [Gestational [-induced] hypertension withoutsignificant proteinuria, unspecified trimester]73-53-4810CpkxmlecTepqphjhnbsoj and screening for infectious disease (3 sources)Encounter for screening for human papillomavirus (HPV); Translations: [Exposure to sexually transmissible disorder]Onset: 937629-71-6328Rwxiyeyb Menstrual disorders (7 sources)Excessive and frequent menstruation with regular cycle; Translations: [Dysmenorrhea, unspecified]Onset: 79-14-6057UnfipsfKfim disorders (2 sources)Major depression in full remission; Translations: [Major depressive disorder, single episode, in full remission]Onset: hronic Other complications of (4 sources)Vomiting of , unspecified; Translations: [Unspecified vomiting of , unspecified as to episode of care or not applicable] 61-88-2454MhjttazjDljxt complications of (2 sources) size does not accord with dates; Translations: [Uterine size- date discrepancy, unspecified trimester]42-14-5071JolembfbEpdrs endocrine disorders (2 sources)Polycystic ovary syndrome; Translations: [Polycystic ovarian syndrome]70-20-5642HkidgihKkpzj female genital disorders (1 source)Unspecified dyspareunia; Translations: [UNSPECIFIED DYSPAREUNIA]Onset: 96-10-4479EctbynzXnikp female genital disorders (1 source)Abnormal uterine and vaginal bleeding, unspecified; Translations: [ABNORMAL UTERINE VAGINAL BLEED UNS]Onset: 54-62-0128XykgerlAovjo female genital disorders (2 sources)Abnormal uterine bleeding; Translations: [Abnormal uterine and vaginal bleeding, unspecified]45-50-3328EfbmlluJejnl female genital disorders (4 sources)Vaginal discharge; Translations: [Other specified noninflammatory disorders of vagina]87-39-9198MneupywlLhide gastrointestinal disorders (2 sources)Constipation; Translations: [Constipation, unspecified]01-13-2025 EpisodicOther nutritional; endocrine; and metabolic disorders (1 source)Obesity, unspecified; Translations: [OBESITY UNSPECIFIED]Onset: 96-56-7821BasphgbVjscv nutritional; endocrine; and metabolic disorders (2 sources)Insulin resistance; Translations: [Insulin resistance]12-01-2024 ChronicOther and delivery including normal (16 sources); Translations: [Encounter for supervision of normal , unspecified, unspecified trimester]65-09-3539GdsricwxVhuep screening for suspected conditions (not mental disorders or infectious disease) (8 sources)Encounter for screening for malignant neoplasm of cervix; Translations: [Patient encounter status]Onset: 73-61-1198XbwhefirXbmlmhmucgxauw and other problems of amniotic cavity (2 sources)Subchorionic hematoma; Translations: [Other specified disorders of amniotic fluid and membranes, first trimester, not applicable or unspecified] 64-91-5186ItdkzjsrDlzcgsmx codes; unclassified (2 sources)Gestation period, 13 weeks; Translations: [13 weeks gestation of ]73-28-4577YrzfqkbdGntzdvdv codes; unclassified (2 sources)Gestation period, 17 weeks; Translations: [17 weeks gestation of ]13-46-1804AkgosrwuNuzpsmvz codes; unclassified (2 sources)Gestation period, 21 weeks; Translations: [21 weeks gestation of ]59-16-7463JkdgnxqaRupnjdfm codes; unclassified (2 sources)Gestation period, 24 weeks; Translations: [24 weeks gestation of ]12-42-1483GjhcxoyuIzfcjbhx codes; unclassified (4 sources)Gestation period, 28 weeks; Translations: [28 weeks gestation of ]74-45-0564IwyhpjdwPipwwlirelxp (1 source)CONTACT W/AND (SUSP) EXPOS COVID-19; Translations: [CONTACT W/AND (SUSP) EXPOS COVID-19]Onset: 28-55-6443Osuctfhjzvsa (2 sources)pre employment; Translations: [pre employment]Onset: 03-04-2025 Past or Other Problems Problem ClassificationProblemDateDocumented DateEpisodic/ChronicAbdominal pain (1 source)Pelvic and perineal pain; Translations: [PELVIC AND PERINEAL PAIN] Onset: 69-90-7021LvhmkfcgLfbd disorders (3 sources)Mood disorders; Translations: [DEPRESSION UNSPECIFIED]Onset: Other circulatory disease (1 source)Elevated blood pressure; Translations: [Elevated blood-pressure reading, without diagnosis of hypertension]08-00-4806EyopnbzyPyhqi upper respiratory infections (1 source)Acute maxillary sinusitis; Translations: [Acute maxillary sinusitis, unspecified]85-63-4741OqmkfolzIsbjtk media and related conditions (1 source)Acute non-suppurative otitis media - serous; Translations: [Acute serous otitis media, bilateral]80-44-8546IbeikqdqBgprqktcjqlm (2 sources)Onset: Results Test NameValueInterpretationReference RangeFacilityUS OB FOLLOW UP TRANSABDOMINAL APPROACHon 27-98-8717BK OB FOLLOW UP TRANSABDOMINAL APPROACH FINDINGS: A [...] Delivery: 08/26/25 Gestational Age as of 06/08/2025: 39z3fHekcbezjty macro (dipstick) panel (U)on 69-26-6366Vblgujwdx, UANegativeNegative - 4(70) +++ mg/dLNOMS HealthcareBlood, UANegativeNegative [...] mg/dLNOMS HealthcareNOMS HealthcareUrinalysis macro (dipstick) panel (U)on 32-65-7207Ezlbykzug, UA NegativeNegative - 4(70) +++ mg/dLNOMS HealthcareBlood, UANegativeNegative - 50 Randall/mcLNOMS HealthcareClarity, UAClearNOMS HealthcareColor, UAYellowNOMS HealthcareGlucose, UANegativeNegative - 1999(110) ++++ mg/dLNOMS Healthcare Interpretation and review of laboratory resultsAbnormalNOMS HealthcareKetones, UANegativeNegative - 160(16) ++++ mg/dLNOMS HealthcareLeukocytes, UAPositive Negative - 500+++ Jonhson/[facility] SystemNOMS HealthcareComment on above:1+Nitrite, UANegative Negative - PositiveNOMS HealthcarepH, UA6.05 - 9NOMS HealthcareProtein, UA PositiveNegative - 1999(20) ++++ mg/dLNOMS HealthcareSpec Grav, UA1.0201 - 1.03 NOMS HealthcareUrobilinogen, UA1.00.2 - 12 mg/dLNOMS HealthcareNOMS Healthcare Urinalysis macro (dipstick) panel (U)on 18-77-4095Agvijfrdz, UANegativeNegative - 4(70) +++ mg/dLNOMS HealthcareBlood, UANegativeNegative - 50 Randall/mcLNOMS HealthcareClarity, UAClearNOMS HealthcareColor, UAYellowNOMS HealthcareGlucose, UANegativeNegative - 1999(110) ++++ mg/dLNOMS HealthcareInterpretation and review of laboratory resultsAbnormalNOMS HealthcareKetones, UANegativeNegative - 160(16) ++++ mg/dLNOMS HealthcareLeukocytes, UA3+Negative - 500+++ Johnson/[facility] SystemNOPA HealthcareNitrite, UANegativeNegative - PositiveNOMS HealthcarepH, UA8.55 - 9 NOMS HealthcareProtein, UATraceNegative - 1999(20) ++++ mg/dLNOMS HealthcareSpec Grav, UA1.011 - 1.03NOMS HealthcareUrobilinogen, UA2.00.2 - 12 mg/dLNOMS HealthcareNOMS HealthcareIGP,APTIMA HPV,AGE GDLNon 87-64-6356AMX GDLN ACOG TESTINGNote.[facility] HealthcareComment on above:TESTS RESULT FLAG UNITS REF RANGE LAB Clinician Provided Cytology Information Source.............Endocervix Other.............. No. of containers..01 ThinPrep Vial Age Madhu CRANE Millie... FLAG LEGEND: L-Low Normal,H-High Normal,LL-Alert Low,HH-Alert High <-Panic Low,>-Panic High,A-Abnormal,AA-Critical Abnormal Performed at: 01 =[facility] [address] [place] [address] Beverly Nguyen MD, IGP, RFX APTIMA HPV ASCUNote.NOMS HealthcareComment on above:TESTS RESULT FLAG UNITS REF RANGE LAB DIAGNOSIS: 02 NEGATIVE FOR INTRAEPITHELIAL LESION OR MALIGNANCY. FUNGAL ORGANISMS MORPHOLOGICALLY CONSISTENT WITH ROSALBA SPECIES ARE PRESENT. Specimen adequacy: 02 Satisfactory for evaluation. Endocervical and/or squamous metaplastic cells (endocervical component) are present. Performed by: 02 Sonia Beckham, Mineral Mixer ([facility]) . 02 Note: Note 02 The [...] High <-Panic Low,>-Panic High,A-Abnormal,AA-Critical Abnormal Performed at: [address] [place] [id number] Beverly Nguyen MD, Performed at: = - [address] [id number] Network Technician: Beverly Nguyen MD, Phone: [phone] Performed at: [address] [id number] Network Technician: Beverly Nguyen MD, Phone: [phone] SPATULA-ALONE ENDOCERVIX CLINISYNCNOMS HealthcareAFP, SERUM, OPEN SPINA BIFIDAon 30-28-4711GXY MOM1.10. [facility] HealthcareAFP VALUE34.4 ng/mL.[facility] HealthcareCOMMENT:Comment.[facility] HealthcareComment on above:Giselle Merida, Ph.D., [facility] Director References: Available Upon Request. Multiples Of Median Cutoffs For AFP Elevations Sellers 2.5 Black 2.8 IDD 2.0 Twins 4.5 Abbreviation Definitions IDD - Insulin Dep Diabetes OSBR - Open Spina Bifida Risk For further inquiries contact [facility] at [phone]. This test was developed and its performance characteristics determined by [facility]. It has not been cleared or approved by the Food and Drug Administration. Performed at: - [facility] [address], [place], [place] [id number] Network Technician: Nirmal Means [facility], Phone: [phone] GEST. AGE ON COLLECTION DATE17.0. weeksNOPA HealthcareGESTAT. AGE BASED ONLMP. NOMS HealthcareComment on above:Recalculations are not recommended when gestational dating by LMP and ultrasound are within 10 days. INSULIN DEP DIABETESNo.NOM HealthcareINTERPRETATIONComment.[facility] Healthcare Comment on above:Interpretation: Screen [...] Customer Services to discuss available options. The [employer] recommends amniocentesis be offered to women age 35 and older. MATERNAL AGE AT EDD25.9. yrNOPA HealthcareMULTIPLE GESTATIONNo.[facility] OSBR RISK 1 [id number].[facility] HealthcareRACECaucasian.[facility] LawnRESULTSReport. [facility] LawnTEST RESULTS:Negative.[facility] JhwplkewcdZPWJFJ388. lbsNOMS HealthcarePREGNANCY N N LMP [id number] 0 17 N 1 Y 206 N N N N N White/ CLINISYNCNOMS HealthcareRECURRENT VAGINITIS (HTRX)on 11-46-7418RLDEEQDWL VAGINAE 0NOMS HealthcareATOPOBIUM VAGINAENot detectedNOMS HealthcareBVAB 2,3 (BACTERIAL VAGINOSIS ASSOCIATED BACTERIA 2, 3); MOBILUNCUS YRO2XRWT HealthcareBVAB 2,3 (BACTERIAL VAGINOSIS ASSOCIATED BACTERIA 2, 3); MOBILUNCUS SPPNot detectedNOMS HealthcareCANDIDA ALBICANS, PARAPSILOSIS, OAWWIWBGLH63.725AbnormalNOMS HealthcareCANDIDA ALBICANS, PARAPSILOSIS, TROPICALISDetectedAbnormalNOMS HealthcareCANDIDA PGYOFFNA6RVVM HealthcareCANDIDA GLABRATANot detectedNOMS HealthcareCANDIDA ZMUFQQ1VXLJ HealthcareCANDIDA KRUSEINot detectedNOMS HealthcareCHLAMYDIA GDPBGXICZHQ6ZERP HealthcareCHLAMYDIA TRACHOMATISNot detected NOMS HealthcareGARDNERELLA ZQVSAWKUK30.732AbnormalNOMS HealthcareGARDNERELLA VAGINALISDetectedAbnormalNOMS HealthcareInterpretation and review of laboratory resultsAbnormalNOMS HealthcareMEGASPHAERA (TYPES 1, 2)0[facility] MEGASPHAERA (TYPES 1, 2)Not detectedNOMS HealthcareMYCOPLASMA EEXWIDXRCG3JWEY HealthcareMYCOPLASMA GENITALIUMNot detectedNOMS HealthcareNEISSERIA GONORRHOEAE0 NOMS HealthcareNEISSERIA GONORRHOEAENot detectedNOMS HealthcareTRICHOMONAS CXACMYAKB7TZMU HealthcareTRICHOMONAS VAGINALISNot detectedNOMS HealthcareNOMS HealthcareUS OB LIMITED 1+ FETUSESon 91-31-8702IZ OB LIMITED 1+ FETUSESFINDINGS: Cephalic presentation. Anterior [...] was 11/19/2024 (approximate).Urinalysis macro (dipstick) panel (U)on 54-81-6267Refjqclty, UANegativeNegative - 4(70) +++ mg/dL NOMS HealthcareBlood, UANegativeNegative - 50 Randall/mcLNOMS HealthcareClarity, UA ClearNOMS HealthcareColor, UAYellowNOMS HealthcareGlucose, UANegativeNegative - 1999(110) ++++ mg/dLNOPA HealthcareInterpretation and review of laboratory resultsAbnormalNOPA HealthcareKetones, UANegativeNegative - 160(16) ++++ mg/dL NOMS HealthcareLeukocytes, UAPositiveNegative - 500+++ Johnson/mcLNOMS Healthcare Comment on above:3+Nitrite, UANegativeNegative - PositiveNOMS HealthcarepH, UA75 - 9NOMS HealthcareProtein, UANegativeNegative - 2000(20) ++++ mg/dLNOMS HealthcareSpec Grav, UA1.021 - 1.03NOPA HealthcareUrobilinogen, UA1.00.2 - 12 mg/dLNOCox BransonNOPA HealthcareQuantiFERON Tbon 90-17-0396CHC InterNegative NormalNEGHolzer HospitalComforest view hospital on above:Result Comment: Quantiferon TB Gold [...] Mycobacterium tuberculosis Infection -- [place], 2010 (http://www.cdc.gov/mmwr/preview/mmwrhtml/ho6306y7.htm), for more information concerning test performance in low-prevalence populations and use in occupational screening.Performed By: #### QFTB #### [facility] [address] [place], [place] [id number] Network Technician: Hamlet Cai Juan minus NIL9.92 IU/mLNormalHolzer HospitalComforest view hospital on above:Performed By: #### QFTB #### [facility] [address] [place], [place] [address] Network Technician: Hamlet Caii TB1 minus NIL0.00 IU/mLNormal0.00-0.34 [facility] HospitalComforest view hospital on above:Performed By: #### QFTB #### [facility] [address] [place], [place] [address] Network Technician: Lance Chester MDQuanti TB2 minus NIL0.00 IU/mLNormal0.00-0.34 [facility] HospitalComment on above:Performed By: #### QFTB #### [facility] [address] [place], [place] [id number] Network Technician: Lance Chester MDQuantiFERON NIL0.08 IU/mLNormalHolzer HospitalComment on above:Performed By: #### QFTB #### [facility] [address], [place] [id number] Network Technician: Lance Chester MDUrinalysis macro (dipstick) panel (U)on 13-63-6355Sltnwceak, UANegativeNegative - 4(70) +++ mg/dLNOMS HealthcareBlood, UANegativeNegative [...] - 12 mg/dLNOMS HealthcareNOMS HealthcareUS OB TRANSVAGINALon 11-98-36[address] [address] Ultrasound Report Signed Patient: MEREDITH TEMPLETON MR#: [id number] : 2000 Acct:[id number] Age/Sex: 24 / F ADM Date: 02/11/25 Loc: US Attending Dr: Abad Canchola D.O. Ordering Physician: Abad Canchola D.O. Date of Service: 02/11/25 Procedure(s): US OB transvaginal Accession Number(s): [id number] cc: Michelle Pabon M.D.; Abad Canchola D.O. [place] [address] Patient Name: MEREDITH TEMPLETON MRN: [id number] date: 2000 Sex: F Assigned Patient Location: US Current Patient Location: US Accession/Order Number: [id number] Exam Date: 02/11/2025 09:39 Report Date: 02/11/2025 [...] 02/11/2025 9:43 AM Dictation Location: [place] [address] Electronically authenticated by: [id number] Y Date: 02/11/2025 09:43 Dictated By: Misa Gillette M.D. Signed By: 02/11/2546 DD/ 2 TD/TT: Factory Engineer:SHERRIEadiology, Radiologist, - 02/11/[address] [address] Ultrasound Report Signed Patient: MEREDITH TEMPLETON MR#: [id number] : 2000 Acct:[id number] Age/Sex: 24 / F ADM Date: 02/11/25 Loc: US Attending Dr: Abad Canchola D.O. Ordering Physician: Abad Canchola D.O. Date of Service: 02/11/25 Procedure(s): US OB transvaginal Accession Number(s): [id number] cc: Michelle Pabon M.D.; Abad Canchola D.O. The [place] [id number] Patient Name: MEREDITH TEMPLETON MRN: [id number] date: 2000 Sex: F Assigned Patient Location: US Current Patient Location: US Accession/Order Number: [id number] Exam Date: 02/11/2025 09:39 Report Date: 02/11/2025 [...] 02/11/2025 9:43 AM Dictation Location: [place] [address] Electronically authenticated by: [id number] Y Date: 02/11/2025 09:43 Dictated By: Misa Gillette M.D. Signed By: 02/11/2546 DD/ 2 TD/TT: Factory Engineer: [facility] LawnRadiology Study observation (narrative)[facility]wnUS OB TRANSVAGINALOrdered By: Radiologist Radiology on 71-05-0328GGJMC[facility]wn Work Phone: HCG ( test) Ql (U)on 23-02-6722Umbvniqwwlmpyi and review of laboratory resultsAbnormalNOCox BransonPreg Test, UrPositive NegativeNOMidwest Orthopedic Specialty HospitalMLR HEMOGLOBIN A1Con 23-30-3229Ikhbiob [Mass/Vol]91 mg/dLCox Walnut LawnHbA1c (Bld) [Mass fraction]4.8 %4.5 - 6.2 %[facility] LawnComment on above:ADA RECOMMENDED LIMIT 4.0 - 6.0 ADA THERAPEUTIC TARGET < 7.0 ACTION SUGGESTED > 7.0 CLINISYNCNOPA HealthcareUS OB TRANSVAGINALon [id number] OB TRANSVAGINALEXAM: US OB TRANSVAGINAL HISTORY: Dating. [...] II, MD, PHD at 22-Jan-2025 10:24:02 AM [facility] TeleradiologyNormalNot AvailableComment on above:Order Comment: US OB TRANSVAGINAL Patient's last menstrual period was 11/19/2024 (approximate).Urinalysis macro (dipstick) panel (U)on 14-15-9137Qyqbtwnpz, UANegativeNegative - 4(70) +++ mg/dL [facility] HealthcareBlood, [...] HealthcareNOMS Healthcare Urinalysis macro (dipstick) panel (U)on 80-63-3870Ghrpifzls, UANegativeNegative - 4(70) +++ mg/dLNOMS HealthcareBlood, UANegativeNegative - 50 Randall/mcLNOMS HealthcareClarity, UAClearNOMS HealthcareColor, UAYellowNOMS HealthcareGlucose, UANegativeNegative - 1999(110) ++++ mg/dLUTAH VALLEY [facility]PITAL HealthcareInterpretation and review of laboratory resultsAbnormalNOPA HealthcareKetones, UANegativeNegative - 160(16) ++++ mg/dLUTAH VALLEY HOSPITAL HealthcareLeukocytes, UAPositiveNegative - 500+++ Johnson/mcL [facility] HealthcareComment on above:LargeNitrite, UANegativeNegative - PositiveNOPA HealthcarepH, UA75 - 9NOMS HealthcareProtein, UANegativeNegative - 2000(20) ++++ mg/dLUTAH VALLEY [facility]PITAL HealthcareSpec Grav, UA1.0151 - 1.03NOPA HealthcareUrobilinogen, UA0.2 0.2 - 12 mg/dLSt. Louis VA [facility] HealthcareALL CBC WITH AUTO DIFFon 12-01-2024 BASOPHILS ABSOLUTE AUTO0.1NOMS HealthcareBasophils/100 WBC (Bld)0.5 %0.2 - 2.0 % [facility] LawnEosinophils/100 WBC (Bld)2.6 %0.9 - 7.0 %[facility] Erythrocyte distribution width (RBC) [Ratio]12.2 %11.0 - 15.0 %[facility] Hematocrit (Bld) [Volume fraction]42.8 %36.0 - 48.0 %[facility] LawnHemoglobin (Bld) [Mass/Vol]14.8 g/dL12.0 - 16.0 g/dLCox Walnut LawnIMMATURE GRANULOCYTES ABS AUTO0.01NOCox BransonImmature granulocytes/100 WBC (Bld)0.1 %0.0 - 0.5 % [facility] LawnLYMPHOCYTES ABSOLUTE AUTO2.8NOCox BransonLymphocytes/100 WBC (Bld)29.5 %20.5 - 60.0 %[facility] SystemsH (RBC) [Entitic mass]29.6 pg26.7 - 34.0 pgPemiscot Memorial Health SystemsHC (RBC) [Mass/Vol]34.6 g/dL29.9 - 35.2 g/dLPemiscot Memorial Health SystemsV (RBC) [Entitic vol]85.6 fL81.0 - 99.0 fLCox Walnut LawnMONOCYTES ABSOLUTE AUTO0.6NOCox BransonMonocytes/100 WBC (Bld)5.8 %1.7 - 12.0 %[facility] HealthcareNEUTROPHILS ABSOLUTE AUTO5.8NOMS HealthcareNeutrophils/100 WBC (Bld) 61.5 %43.0 - 75.0 %NOMS HealthcarePlatelet mean volume (Bld) [Entitic vol]10 fL 9.5 - 13.5 fLNOMS HealthcareTBH EO #0.3NOMS HealthcareTBH OAB212ZFMC Healthcare TBH PEN6WOJD HealthcareTBH WBC9.5NOMS HealthcareCLINISYNCNOMS HealthcareHCG ( test) Ql (U)on 63-24-8026Rgxfosdovevylf and review of laboratory resultsNormalCox Walnut LawnPreg Test, UrNegativeNegativeNOShriners Hospitals for Children HealthcareUrinalysis macro (dipstick) panel (U)on 46-80-7345Vxcfemsva, UA NegativeNegative - 4(70) +++ mg/dLNOPA HealthcareBlood, UANegativeNegative - 50 Randall/mcLNOPA HealthcareClarity, UAClearNOPA HealthcareColor, UAYellowNOPA HealthcareGlucose, UANegativeNegative - 2000(110) ++++ mg/dLCox Walnut Lawn Interpretation and review of laboratory resultsAbnormalUTAH VALLEY HOSPITAL HealthcareKetones, UANegativeNegative - 160(16) ++++ mg/dLCox Walnut LawnLeukocytes, UAPositive Negative - 500+++ Johnson/mcLNOPA HealthcareComment on above:smallNitrite, UA NegativeNegative - PositiveNOPA HealthcarepH, UA75 - 9NOMS HealthcareProtein, UA NegativeNegative - 2000(20) ++++ mg/dLNOPA HealthcareSpec Grav, UA1.011 - 1.03 [facility] LawnUrobilinogen, UA0.20.2 - 12 mg/dLNOMS [facility] HospitalNOPA Healthcare IGP,APTIMA HPV,AGE GDLNon 75-64-4466IES GDLN ACOG TESTINGNote.[facility] Comment on above:TESTS RESULT FLAG UNITS REF RANGE LAB Clinician Provided Cytology Information Source.............Cervix;Endocervix No. of containers..01 ThinPrep Vial Phan Pinto... FLAG LEGEND: L-Low Normal,H-High Normal,LL-Alert Low,HH-Alert High <-Panic Low,>-Panic High,A-Abnormal,AA-Critical Abnormal Performed at: 01 =G [facility] [address] Beverly Nguyen MD, IGP, RFX APTIMA HPV ASCUNote.[facility] LawnComment on above:TESTS RESULT FLAG UNITS REF RANGE LAB DIAGNOSIS: 02 NEGATIVE FOR INTRAEPITHELIAL LESION OR MALIGNANCY. Specimen adequacy: 02 Satisfactory for evaluation. No endocervical component is identified. Performed by: Pricila Smith, Rn Licensed Practical ([facility]) . 02 Note: Note 02 The [...] <-Panic Low,>-Panic High,A-Abnormal,AA-Critical Abnormal Performed at: [address] [address] Beverly Nguyen MD, Performed at: = - [address] [id number] Network Technician: Beverly Nguyen MD, Phone: [phone] Performed at: [facility] [id number] Network Technician: Beverly Nguyen MD, Phone: [phone] BRUSH-SPATULA CERVIX ENDOCERVIX CLINISYNCNOMS HealthcareComprehensive Metabolic Panelon 59-31-1510Fwngohr [Mass/Vol]4.2 g/dLNormal3.5-5.0[facility] HospitalComment on above:Order Comment: Ordered by ANNEL Loving By: #### KEIRA, [id number] #### [place] [address] Ph. [phone] [Catalytic activity/Vol]77 U/IDwstha31-200XybhphuOhioHealth Arthur G.H. Bing, MD, Cancer CenterComment on above:Order Comment: Ordered by ANNEL Loving By: #### KEIRA, [id number] #### [address] [address] Ph. [phone] [Catalytic activity/Vol]29 U/LNormal0-35WOhioHealth Arthur G.H. Bing, MD, Cancer CenterComment on above:Order Comment: Ordered by ANNEL KUNSPerformed By: #### CMP, [id number] #### [place] [address] Ph. [phone] [Catalytic activity/Vol]30 U/UZmtgbv31-11UrqvhefOhioHealth Arthur G.H. Bing, MD, Cancer CenterComment on above:Order Comment: Ordered by ANNEL Loving By: #### CMP, [id number] #### [place] [address] Ph. [phone] [Mass/Vol]0.4 mg/dLNormal0.2-1.3WOhioHealth Arthur G.H. Bing, MD, Cancer CenterComment on above:Order Comment: Ordered by ANNEL Loving By: #### CMP, [id number] #### [place] [address] Ph. [phone] [Mass/Vol]9.2 mg/dLNormal8.4-10.2WOhioHealth Arthur G.H. Bing, MD, Cancer CenterComment on above:Order Comment: Ordered by ANNEL Loving By: #### CMP, [id number] #### [place] [address] Ph. [phone] [Moles/Vol]101 mmol/QBktpnt05-319RkmppzjOhioHealth Arthur G.H. Bing, MD, Cancer CenterComment on above:Order Comment: Ordered by ANNEL Loving By: #### CMP, [id number] #### [place] [address] Ph. [phone] [Moles/Vol]25 mmol/FUklvgc17-89VieaiprOhioHealth Arthur G.H. Bing, MD, Cancer Center Comment on above:Order Comment: Ordered by ANNEL Loving By: #### CMP, [id number] #### [place] [address] Ph. [phone] [Mass/Vol]0.71 mg/dLNormal0.52-1.04WOhioHealth Arthur G.H. Bing, MD, Cancer CenterComment on above:Order Comment: Ordered by ANNEL Loving By: #### CMP, [id number] #### [address] [address] Ph. [phone]/1.73 sq M.predicted among non-blacks MDRD (S/P/Bld) [Vol rate/Area]122 mL/min/{1.73_m2}Normal>60WOhioHealth Arthur G.H. Bing, MD, Cancer CenterComment on above:Order Comment: Ordered by ANNEL Reynoso Comment: GFR calculated using CKD-EPI (2020) formula.\X0D0A\Stage 1 Kidney damage (e.g., protein in the urine) with normal GFR >=90\X0D0A\Stage 2 Kidney damage with mild decrease in GFR 60-8 9\X0D0A\Stage 3a Moderate decrease in GFR 45-59\X0D0A\Stage 3b Moderate decrease in GFR 30-44\X0D0A\Stage 4 Severe reduction in GFR 15-29\X0D0A\Stage 5 Kidney failure <15Performed By: #### CMP, [id number] #### [address] [address] Ph. [phone] [Mass/Vol]85 mg/lZRplwqk66-935PntobuzKettering Memorial Hospital Comment on above:Order Comment: Ordered by ANNEL Loving By: #### CMP, [id number] #### [address] [address] Ph. [phone] [Moles/Vol]4.1 mmol/LNormal3.6-5.0WOhioHealth Arthur G.H. Bing, MD, Cancer CenterComment on above:Order Comment: Ordered by ANNEL Loving By: #### CMP, [id number] #### [address] [address] Ph. [phone] [Mass/Vol]8.0 g/dLNormsd6.3-8.2[facility] Comment on above:Order Comment: Ordered by ANNEL Loving By: #### CMP, [id number] #### [address] [place] [address] Ph. [phone] [Moles/Vol]137 mmol/LLmvyqz252-279BctpsmoOhioHealth Arthur G.H. Bing, MD, Cancer CenterComment on above:Order Comment: Ordered by ANNEL Gonzalezformed By: #### CMP, [id number] #### [address] [place] [address] Ph. [phone] nitrogen [Mass/Vol]10 mg/dLNormal7-17WOhioHealth Arthur G.H. Bing, MD, Cancer CenterComment on above:Order Comment: Ordered by ANNEL Gonzalezformed By: #### CMP, [id number] #### [place] [address] Ph. [phone] [Mass/Vol]4.2 g/dL3.5 - 5.0 g/dLWYANDOTALP (Bld) [Catalytic activity/Vol]77 U/L38 - 126 U/LWYANDOTALT [Catalytic activity/Vol]29 U/L0 - 35 U/LWYANDOTAST [Catalytic activity/Vol]30 U/L14 - 36 U/LWYANDOT Bilirubin [Mass/Vol]0.4 mg/dL0.2 - 1.3 mg/dLWYANDOTCalcium [Mass/Vol]9.2 mg/dL 8.4 - 10.2 mg/dLWYANDOTChloride [Moles/Vol]101 mmol/LWYANDOTCO2 [Moles/Vol]25 mmol/LWYANDOTCreatinine [Mass/Vol]0.71 mg/dL0.52 - 1.04 mg/dLWYANDOTGFR, Yggjjaofh704- PINFWYANDOTComment on above: GFR calculated using CKD-EPI [...] mg/dL7 - 17 mg/dLWYANDOTOrdered by ANNEL [facility] CENTEREZRATTSH Reflex FT4on 80-05-4607MDW9.420 mIU/mLNormal0.470-4.680WMercy Health [facility] on above:Order Comment: Ordered by ANNEL Gonzalezformed By: #### CMP, [id number] #### [place] [address] Ph. [phone] with Reflexon 68-90-0145BCU Qn2.420 m[IU]/LWYANDOTOrdered by [facility] BASILTELLURIDE REGIONAL MEDICAL CENTERWYANDOTPAP ACOG PANEL 2: to 03-01-2022.. NormalThe Good Samaritan HospitalComment on above:Performed By: #### [id number] #### [facility] [address] [place] [address] Dr. Dallas Kaplan Gdln ACOG Sifhioj44-73UhtahzVjbAdena Fayette Medical CenterComforest view hospital on above:Performed By: #### [id number] #### [facility] [address] [place] [address] Dr. Dallas WolfDIAGNOSIS:CommentMemorial Health System [facility]by [facility] on above: Result Comment: NEGATIVE FOR INTRAEPITHELIAL LESION OR MALIGNANCY.Performed By: #### [id number] #### [facility] [address] [place] [address] Dr. Dallas WolfMethodology:CommentMemorial Health System Selby General Hospital on above: Result Comment: This liquid based ThinPrep(R) pap test was screened with the use of an image guided system.Performed By: #### [id number] #### [facility] [address] [place] [address] Dr. Dallas WolfNote:CommentMemorial Health System Selby General Hospital on above:Result Comment: The Pap smear is a screening test designed to aid in the detection of premalignant and malignant conditions of the uterine cervix. It is not a diagnostic procedure and should not be used as the sole means of detecting cervical cancer. Both false-positive and false-negative reports do occur. .Performed By: #### [id number] #### [facility] [address] [place] [address] Dr. Dallas WolfPerformed by:CommentMemorial Health System Selby General Hospital on above: Result Comment: Nikolay Smith, Rn Licensed Practical (ASCP)Performed By: #### [id number] #### [place] [address] Dr. Dallas WolfReflex Criteria:[facility] on above:Result Comment: The HPV DNA reflex criteria were not met with this specimen result therefore, no HPV testing was performed. .Performed By: #### [id number] #### [place] [address] Dr. Dallas WolfSpecimen adequacy:[facility] on above:Result Comment: Satisfactory for evaluation. Endocervical and/or squamous metaplastic cells (endocervical component) are present.Performed By: #### [id number] #### [place] [address] Dr. Dallas Jackson AUTO DIFFon 80-16-5682DSWJ #0.1 103/ulNormal0.0-0.1The [facility] Troyment on above:Performed By: #### CBC #### [facility] [address] [place] [address] Dr. Dallas oWlfBasophils/100 WBC (Bld)0.8 %Normal0.2-2.0[facility] Comment on above:Performed By: #### CBC #### [facility] [address] [place] [address] Dr. Dallas Huggins #0.3 103/ulNormal0.0-0.7The [facility] on above: Performed By: #### CBC #### [facility] [address] [address] [address] Dallas Mosleyosinophils/100 WBC (Bld)4.1 %Normal0.9-7.0The [facility] Comment on above:Performed By: #### CBC #### [facility] [address] [place] [address] Dr. Dallas Mosleyrythrocyte distribution width (RBC) [Ratio]13.0 %Wvelhm18.0-15.0 The [facility] Samaritan HospitalComment on above:Performed By: #### CBC #### [facility] [address] [place] [address] Dr. Dallas WolfHematocrit (Bld) [Volume fraction]43.4 %Nxbzna68.0-48.0The [facility] Samaritan HospitalComment on above:Performed By: #### CBC #### [facility] [address] [place] [address] Dr. Dallas WolfHemoglobin (Bld) [Mass/Vol]14.5 g/mEOipirw94.0-16.0The [facility]itan HospitalComment on above:Performed By: #### CBC #### [facility] [address] [place] [address] Dr. Dallas Ortez #0.02 10e3/ulNormal0.00-0.03The [facility] Samaritan HospitalComment on above:Performed By: #### CBC #### [facility] [address] [place] [address] Dr. Dallas WolfIG %0.3 %Normal0.0-0.5The [facility] Troyment on above: Performed By: #### CBC #### [facility] [address] [place] [address] Dr. Dallas OsheaMPH #2.2 103/ulNormal1.2-3.8The [facility]aritan HospitalComment on above:Performed By: #### CBC #### [facility] [address] [place] [address] Dr. Dallas Osheamphocytes/100 WBC (Bld)28.1 %Khxzoz36.5-60.0The [facility] Samaritan HospitalComment on above:Performed By: #### CBC #### [facility] [address] [address] [address] Dallas Cifuentes DIFF REQNONormalThe [facility] Samaritan HospitalComment on above: Performed By: #### CBC #### [facility] [address] [place] [address] Dr. Dallas Hernandez (RBC) [Entitic mass]28.5 txImhaae45.7-34.0The [facility] HospitalComment on above:Performed By: #### CBC #### [facility] [address] [place] [address] Dr. Dallas Hernandez (RBC) [Mass/Vol]33.4 g/fAQfwibw27.9-35.2The [facility]itan HospitalComment on above:Performed By: #### CBC #### [facility] [address] [place] [address] Dr. Dallas Hernandez (RBC) [Entitic vol]85.3 aPBjbojt50.0-99.0The [facility]itan HospitalComment on above:Performed By: #### CBC #### [facility] [address] [place] [address] Dr. Dallas Smith #0.6 103/ulNormal0.3-0.8The [facility]aritan HospitalComment on above:Performed By: #### CBC #### [facility] [address] [place] [address] Dr. Dallas Medranoocytes/100 WBC (Bld)7.9 %Normal1.7-12.0The [facility] Comment on above:Performed By: #### CBC #### [facility] [address] [place] [address] Dr. Dallas Garcia #4.6 103/ulNormal1.4-6.5The [facility]aritan HospitalComment on above:Performed By: #### CBC #### [facility] [address] [place] [address] Dr. Dallas Novautrophils/100 WBC (Bld)58.8 %Zunsvl06.0-75.0The [facility] Troyment on above:Performed By: #### CBC #### [facility] [address] [address] [address] Dallas Loulet mean volume (Bld) [Entitic vol]9.6 fLNormal9.5-13.5The [facility] on above:Performed By: #### CBC #### [facility] [address] [address] [address] Dallas WolfPLT242 103/pcZfpjhh723-413Grn [facility] HospitalComment on above: Performed By: #### CBC #### [facility] [address] [place] [address] Dr. Dallas WolfRBC5.09 106/ulNormal4.20-5.40[facility] on above:Performed By: #### CBC #### [facility] [address] [place] [address] Dr. Dallas WolfWBC7.8 103/ulNormal4.0-11.0The [facility]aritan HospitalComment on above: Performed By: #### CBC #### [facility] [address] [place] [address] Dr. Dallas WolfPREElise QUANT HCGon 13-49-7089UIT QUANT<1NormalLakehealth Tripoint [facility] Center Comment on above:Performed By: #### PREGQNT #### [facility] [address] [place] [address] Dr. Dallas WolfHCElise RANGESEE Formerly [facility] Hospitale [facility]itan HospitalComment on above: Result Comment: 5-50 0-1 WEEK 40-300 1-2 WEEKS 100-1,000 2-3 WEEKS 500-6,000 3-4 WEEKS 5,000-200,000 1-2 MONTHS 10,000-100,000 2-3 MONTHS 3,000-50,000 2ND TRIMESTER 1,000-50,000 3RD TRIMESTERPerformed By: #### PREGQNT #### [facility] [address] [place] [address] Dr. Dallas WolfCovid-19 PCR (CVDTBH)on 19-55-3902FSFG-CoV-2 (COVID-19) RNA SANJANA+probe Ql (Unsp spec)Not detectedNormalNOT DETECTEDThe [facility] Comment on above:Result Comment: This test is not yet approved or cleared by the [place] FDA. When there are no FDA-approved or cleared tests available, and other criteria are met, FDA can make tests available under an emergency access mechanism called an Emergency Use Authorization (EUA). The EUA for this test is supported by the [place] of Health and Human Service's (HHS's) declaration [...] consistent with SARS-CoV-2.Performed By: #### CVDTB #### [facility] [address] [place] [address] Dr. Dallas Wolf Vital Signs Date TimeVital SignValuePerforming OeubntinrPxqxkqws77-80-9113 15:50-0500Body mass index (BMI) [Ratio]35.19 kg/h6Ypdek Jesika DO Work Phone: [employer]InNetwork Djzemurczj51-69-8689 15:50-0500Body letbla78.88 kgCorey Jesika DO Work Phone: [phone] BransonGxmmdvgujn00-60-9493 15:50-0500Diastolic blood uzffwdba49 mm[Hg]Abad Jesika DO Work Phone: NOMS HealthcareComment on above:130/ 15:50-0500Systolic blood yoavzepw807 mm[Hg]Abad Jesika DO Work Phone: NOMS HealthcareComment on above:130/7118-91-5583 08:41-0400Body mass index (BMI) [Ratio]34.4 kg/m2Amy Gregorio PA Work Phone: [facility] LawnPwdnntrios34-45-5101 08:41-0400Body ehwksx79.67 kgShagufta Perkins PA Work Phone: [facility] LawnShqfisccue69-57-1386 08:41-0400Diastolic blood vkwjlobm88 mm[Hg]Shagufta Perkins PA Work Phone: [facility] LawnJsptuxlglh44-09-6593 08:41-0400Systolic blood xwsnnkyw277 mm[Hg]Shagufta Perkins PA Work Phone: [phone]-[facility] LawnInxiqgnlmq90-55-0195 08:33-0400Body mass index (BMI) [Ratio]33.59 kg/r9Cspipnov Kirill FURNACE PROCESS SUPERVISOR Work Phone: [facility] LawnQzcfuivvto43-66-7658 08:33-0400Body kbofgt10.4 kg Say Kirill FURNACE PROCESS SUPERVISOR Work Phone: [facility] LawnZjnyieootk97-90-2891 08:33-0400Diastolic blood pcucrxon23 mm[Hg]Say Cosmeerly FURNACE PROCESS SUPERVISOR Work Phone: [phone] LawnHuakfmidbw40-68-8062 08:33-0400Systolic blood zetlmasc725 mm[Hg]Say Cosmeerly FURNACE PROCESS SUPERVISOR Work Phone: [phone]-[facility] LawnQpmrgukwyw19-27-4664 10:35-0400Body mass index (BMI) [Ratio]33.25 kg/f2Rrjyk Jesika DO Work Phone: [facility] LawnSsmxdkusko63-64-1782 10:35-0400Body qoofpj35.44 kgCorey Jesika DO Work Phone: [phone]-[facility] LawnLckcnpxcvl09-49-5938 10:35-0400Diastolic blood cjilpipq88 mm[Hg]Abad Jesika DO Work Phone: [phone]-[facility] LawnAzjxbtgmkf16-62-8573 10:35-0400Systolic blood iartyzro847 mm[Hg]Abad Jesika DO Work Phone: [phone]-[facility] LawnUltzoxmhlk62-78-1540 10:37-0400Body mass index (BMI) [Ratio]33.31 kg/m2Amy Gregorio PA Work Phone: [facility] LawnGiunhvbmiu09-36-4060 10:37-0400Body yfzada50.62 kgShagufta Perkins PA Work Phone: [facility] LawnRgdxgogczw01-68-7924 10:37-0400Diastolic blood yolmshcu23 mm[Hg]Shagufta Perkins PA Work Phone: [facility] LawnQupgencuta39-54-1111 10:37-0400Systolic blood unxzjenw145 mm[Hg]Shagufta Perkins PA Work Phone: [phone] [place], [place] [address]Snupnlsmij02-85-3866 08:55-0400Body mass index (BMI) [Ratio]33.25 kg/n3Yoysq Jesika DO Work Phone: [facility] LawnGgsdqvnxwa29-12-3413 08:55-0400Body .44 kgCorey Jesika DO Work Phone: [facility] LawnLndtkcishx72-34-5423 08:55-0400Diastolic blood mm[Hg]Abad Jesika DO Work Phone: [phone] [place], [place] [address]Hbnjndwxid95-14-5329 08:55-0400Systolic blood sexlnnol554 mm[Hg]Abad Jesika DO Work Phone: [facility] LawnNlnfyuxuxv64-90-8890 09:14-0400Body mass index (BMI) [Ratio]33.89 kg/z7CsqcggowSay Roy FURNACE PROCESS SUPERVISOR Work Phone: [facility] LawnVuvfmmnlkk92-63-2696 09:14-0400Body .25 kgSay Friedmanly FURNACE PROCESS SUPERVISOR Work Phone: [facility] LawnGmowkoyono29-13-3156 09:14-0400Diastolic blood vypmoqry47 mm[Hg]Say Roy FURNACE PROCESS SUPERVISOR Work Phone: [facility] LawnAhergzkuup12-26-6263 09:14-0400Systolic blood mm[Hg]Say Roy FURNACE PROCESS SUPERVISOR Work Phone: [phone]-[facility] LawnQtckqnssju56-75-1806 11:00-0400Body mass index (BMI) [Ratio]35.32 kg/e1Uirjg Jesika DO Work Phone: [facility] LawnEfwtswrbvw34-77-5695 11:00-0400Body eljozi07.25 kgCorey Jesika DO Work Phone: [facility] LawnWsczswfsjv23-63-1617 11:00-0400Diastolic blood qpzrumsd05 mm[Hg]Abad Jesika DO Work Phone: [facility] LawnJonoimqmns31-72-6938 11:00-0400Systolic blood tfvjopln476 mm[Hg]Abad Jesika DO Work Phone: [facility] LawnIofpvvwcam53-40-9935 14:07-0400Body .64 [facility] 14:07-0400Body mass index (BMI) [Ratio]35.9 kg/y2SqnfggkxtMedina Hospital07-19-2024 14:07-0400Body lkdwne411.15 [facility]07-19-2024 14:07-0400Diastolic blood ighaicqr60 mm[Hg][facility]07-19-2024 14:07-0400 Heart wsgq213 /[facility]07-19-2024 14:07-0400Systolic blood alyflxzj567 mm[Hg][facility]04-25-2024 15:18-0400 Body upwpkh560.64 cmMedina [facility]04-25-2024 15:18-0400Body mass index (BMI) [Ratio]36.8 kg/o0RmyzczcuvMedina Hospital04-25-2024 15:18-0400Body .41 [facility]04-25-2024 15:18-0400Diastolic blood qfsxompo420 mm[Hg][facility] 12-05-2023 15:18-0400Heart rate94 /[facility] 12-05-2023 15:18-0400Systolic blood poqjgoti042 mm[Hg][facility]12-22-2023 11:56-0500Body yurkop995.7 cmAnnel Teresa APRN-SCHOOL TEACHER Work Phone: [facility]12-22-2023 11:56-0500Body mass index (BMI) [Ratio]35.18 kg/m2Annel JACOBSCHOOL TEACHER Work Phone: [facility] HospitalMagn[facility]12-22-2023 11:56-0500Body iixjwksfngw64.2 [degF]Annel JACOBSCHOOL TEACHER Work Phone: [facility] HospitalMagn[facility]12-22-2023 11:56-0500Body .96 kgAnnel Teresa APRNClaribelSCHOOL TEACHER Work Phone: [facility] HospitalMagn[facility]12-22-2023 11:56-0500Diastolic blood mm[Hg]Annel JACOBSCHOOL TEACHER Work Phone: [facility] HospitalMagn[facility]12-22-2023 11:56-0500Heart rate 91 /minAnnel Teresa APRNClaribelSCHOOL TEACHER Work Phone: [facility] HospitalHedgeChatter12-22-2023 11:56-0296QcV5% (BldA) [Mass fraction]99 %Annel JACOBSCHOOL TEACHER Work Phone: [facility] HospitalMagnum [facility]12-22-2023 11:56-0500Systolic blood tryouyok607 mm[Hg]Annel JACOBSCHOOL TEACHER Work Phone: [facility] HospitalForceManager [facility] Encounters Encounter DateEncounter TypeCare ProviderFacilityStart: 06-21-2025 End: 11-40-2700Eewxkpzd flow sheetCorey Jesika DO Work Phone: [facility] OBGYNComment on above:28 weeks gestation of ([facility]); Third trimester ([facility]); induced hypertension, antepartum ([facility])Start: 06-21-2025 End: 10-70-3520olxyopgjotAZIOK FAZIONot AvailableStart: 06-08-2025 End: 84-46-2817Sylhpz flowsheetAmy Gregorio MIX Work Phone: [facility]BGYNStart: 06-08-2025 End: 67-82-8936Ljdvqo flowsheetShagufta MIX Work Phone: [facility] OBGYNStart: 06-08-2025 End: 26-76-2823Mrrvjz outpatient visit 15 minutesShagufta MIX Work Phone: [facility] OBGYNComment on above: size inconsistent with dates ([facility]) (Primary Dx); 28 weeks gestation of ([facility]); Second trimester ([facility])Start: 06-08-2025 End: 80-79-7782mmiwpyseqeZRJ RAMEYNot AvailableStart: 05-12-2025 End: 18-05-0167Xzpjbt flowsMaria Isabel Roy NP Work Phone: [facility] OBGYNStart: 05-12-2025 End: 80-36-4547Txjtvq flowsMaria Isabel Roy NP Work Phone: [facility] [place] [facility]BGYNStart: 05-12-2025 End: 75-01-3788Akcuhxbo flow sheetSay Roy NP Work Phone: [facility] [place] OBGYNComment on above:24 weeks gestation of ([facility]); Second trimester ([facility]); Diabetes mellitus screeningStart: 05-12-2025 End: 32-17-3696mirulfbrdvVLEISTMY EBERLYNot AvailableStart: 04-15-2025 End: 51-15-8321Wiydfb flowsheetCorey Jesika DO Work Phone: [facility]BGYNStart: 04-15-2025 End: 11-72-0486Ayxsdp flowsheetCorey Jesika DO Work Phone: [facility]BGYNStart: 04-15-2025 End: 91-50-7462Wkpujantf Result EncounterCorey Jesika DO Work Phone: NOMS External Department UnsolicitedStart: 04-15-2025 End: 77-06-2965Viprhkwy preventive med est patient 18-39 yrsCorey Jesika DO Work Phone: [facility] [place] OBGYNComment on above:Second trimester ([facility]); 21 weeks gestation of ([facility]); Nausea and vomiting during ([facility]); Vaginal discharge during , antepartum ([facility])Start: 04-15-2025 End: 34-60-5372lsvkhfogntNBEKG FAZIONot AvailableStart: 04-08-2025 End: 33-95-6181blcxvjpezdVWE RAMEYNot AvailableStart: 03-18-2025 End: 90-46-3473Bgvjsrtjq Result EncounterShagufta MIX Work Phone: noms External Department UnsolicitedStart: 03-18-2025 End: 02-16-0612Qobagcne Result EncounterShagufta MIX Work Phone: noms External Department UnsolicitedStart: 03-18-2025 End: 91-21-5297Rejeffvy Result EncounterShagufta Gregorio MIX Work Phone: noms External Department UnsolicitedStart: 03-18-2025 End: 85-37-4256Paspdmbc flow sheetShagufta Atlantic PA Work Phone: [facility] [place] OBGYNComment on above:17 weeks gestation of ([facility]); Second trimester ([facility]); Subchorionic hematoma in first trimester, single or unspecified fetus ([facility]); Screening, , for anatomic survey ([facility]); Exposure to STD; Vaginal dischargeStart: 03-18-2025 End: 29-20-4177odmuhhfqgxSAA RAMEYNot AvailableStart: 03-04-2025 End: 03-97-5326hacfxfncttGWISQCE Isaac [facility]ABer[facility] HospitalStart: 03-04-2025 End: 45-50-0425Unqckpfyjw hospital visit by Fide Sanford CNP Work Phone: [facility] LABStart: 02-18-2025 End: 35-57-1274Rtkuul flowsheetCorey Jesika DO Work Phone: [facility] BCP OBStart: 02-18-2025 End: 34-04-9382Bndpli flowsheetCorey Jesika DO Work Phone: [facility] BCP OBStart: 02-18-2025 End: 84-23-1254cwlaecudbwVOONG FAZIONot AvailableStart: 02-18-2025 End: 49-79-3011Ewcwyjpa flow sheetCorey Jesika DO Work Phone: [facility] BCP OBComment on above:Second trimester ([facility]); 13 weeks gestation of ([facility])Start: 02-11-2025 End: 19-69-4714Lrxdjtrai Result EncounterCorey Jesika DO Work Phone: NOMS External Department UnsolicitedStart: 02-11-2025 End: 21-13-0834Huethpljc Result EncounterCorey Jesika DO Work Phone: NOMS External Department UnsolicitedStart: 01-21-2025 End: 64-38-2120Lsbbyrfyi Result EncounterCorey Jesika DO Work Phone: N[facility]S External Department UnsolicitedStart: 01-21-2025 End: 71-98-7543Nvdiyxtmv Result EncounterCorey Jesika DO Work Phone: noms External Department UnsolicitedStart: 01-21-2025 End: 45-03-1937Rvjjpi outpatient visit 5 minutesNoms Bcp Ob Jesika NurseNOMS BCP OBComment on above:GA: 1m5tFzjiw: 01-21-2025 End: 63-64-3669cmfjhadtspEMBBT FAZIONot AvailableStart: 01-13-2025 End: 06-41-1742Tdudvi flowsheetSay Roy FURNACE PROCESS SUPERVISOR Work Phone: [facility] BCP OBStart: 01-13-2025 End: 26-14-4226Fifnly flowsheetSay Roy FURNACE PROCESS SUPERVISOR Work Phone: [facility] BCP OBStart: 01-13-2025 End: 54-29-8238rydqyqqgktIMUNZGOC EBERLYNot AvailableStart: 01-13-2025 End: 06-69-4645Xkgftd outpatient visit 15 minutesSay Roy FURNACE PROCESS SUPERVISOR Work Phone: noms [facility] OBComment on above:GA: 0e3oNekve: 12-01-2024 End: 84-81-6480Vpbwva flowsheetCorey Jesika DO Work Phone: noms BCP OBStart: 12-01-2024 End: 92-21-5703Xwhqeervi Result EncounterCorey Jesika DO Work Phone: noms External Department UnsolicitedStart: 12-01-2024 End: 21-74-9524Mhfjwcfuw Result EncounterCorey Jesika DO Work Phone: noms External Department UnsolicitedStart: 12-01-2024 End: 37-91-5450Pfjfzx outpatient visit 15 minutesCorey Jesika DO Work Phone: noms [facility] OBComment on above:Female infertility; PCOS (polycystic ovarian syndrome); Abnormal uterine bleeding (AUB); Endometriosis; Insulin resistanceStart: 12-01-2024 End: 11-77-7161iduvfghwgvVCIXQ FAZIONot AvailableStart: 03-25-2024 End: 67-59-4166Xceaiedgm Result EncounterCorey Jesika DO Work Phone: noms External Department UnsolicitedStart: 03-25-2024 End: 72-20-0955Zufgqathi Result EncounterCorey Jesika DO Work Phone: noms External Department UnsolicitedStart: 02-28-2024 End: 08-41-4245tfudjydvozZvasycgpoCincinnati [facility] Center Work Phone: Start: 02-28-2024 End: 24-86-9269Sqwmcbi encounter procedureD[facility] Work Phone: Start: 12-05-2023 End: 70-49-4631uzxgpfdqdfTvvgynzqiCincinnati VA Medical Center Work Phone: Start: 12-05-2023 End: 81-12-1702Uzyvmos encounter procedureD[facility] Health [facility] Work Phone: Start: 12-03-2023 End: 41-02-8352Adgynetyq encounterAnnel Ivana Teresa HUMAN RESOURCES MGR-SCHOOL TEACHER Work Phone: [facility] MedicineStart: 08-02-2023 End: 92-29-2548Fewvsv outpatient visit 15 minutesAnnel Ivana Teresa HUMAN RESOURCES MGR-SCHOOL TEACHER Work Phone: [facility] Family MedicineComment on above:Acute non-recurrent maxillary sinusitis (Primary Dx); Non-recurrent acute serous otitis media of both ears; Elevated blood pressure readingStart: 01-10-2023 End: 15-90-8315vsqbmdwshlCGEF Concha [facility] Centertart: 01-10-2023 End: 14-77-2518Vqqvxgkbfa hospital visit by physicianAnnel Teresa HUMAN RESOURCES MGR - ANIMAL REHABILITATOR Work Phone: [facility] LaboratoryStart: 02-26-2022 End: 58-98-5291ramapuopqmQA ABAD FAZIOFacility:N9Kuzvy: 18-48-3557Ycpkmczok for preprocedural laboratory examinationDR ABAD [facility] Hospitaltart: 06-30-2021 End: 21-79-1586xoflxnkodrMK ABAD FAZIOFacility:B9Hoeyj: 84-49-8098Egqsmpabq for other preprocedural examinationDR ABAD [facility] HospitalStart: 06-27-2021 End: 80-77-6126uezurcwnmvHP ABAD FAZIOFacility:G5Snaeo: 06-27-2021 End: 73-31-4191Oefzsdjqv for preprocedural laboratory examinationDR ABAD JESIKA Facility:W9Gobpo: 06-21-2021 End: 24-44-2635jwayzkwtkaWK ABAD FAZIOFacility:V1Ivolk: 06-21-2021 End: 23-50-1265Pugloorvo for other preprocedural examinationDR [facility] Facility:H1 Procedures DateProcedureProcedure DetailPerforming ClinicianStart: 37-94-4284Hbchm dip stick/tablet rgnt non-auto w/o micrscpCorey Jesika DO Work Phone: Start: 40-21-4197Nchxl dip stick/tablet rgnt non-auto w/o micrscpAmy Gregorio MIX Work Phone: Start: 68-62-3850Wtzxu dip stick/tablet rgnt non-auto w/o micrscpKrkylah Roy NP Work Phone: Start: 90-88-0626FDG,APTIMA HPV,AGE GDLNCorey Jesika DO Work Phone: Start: 40-73-9715VDT, SERUM, OPEN SPINA BIFIDAAmaria alejandra MIX Work Phone: Start: 06-15-0212HTZKTURNG VAGINITIS (HTRX)Shagufta MIX Work Phone: Start: 55-41-4623Fucgp dip stick/tablet rgnt non-auto w/o micrscpAmy Gregorio MIX Work Phone: Start: 58-67-4936Qjnog dip stick/tablet rgnt non-auto w/o micrscpCorey Jesika DO Work Phone: Start: 10-01-3167AD OB TRANSVAGINALCorey Jesika DO Work Phone: Start: 63-70-3033EWE HEMOGLOBIN G8BGuvfy Jesika DO Work Phone: Start: 01-21-2025 End: 91-91-9911Xxyzj dip stick/tablet rgnt non-auto w/o micrscpCorey Jesika DO Work Phone: Start: 50-43-0865Silhz dip stick/tablet rgnt non-auto w/o micrscpKrkylah Roy FURNACE PROCESS SUPERVISOR Work Phone: Start: 44-16-8012CAO CBC WITH AUTO DIFFCorey Jesika DO Work Phone: Start: 12-01-2024 End: 63-59-5639Tqlsh dip stick/tablet rgnt non-auto w/o micrscpCorey Jesika DO Work Phone: Start: 50-99-0199CMD,APTIMA HPV,AGE GDLNCorey Jesika DO Work Phone: Start: 13-83-7301Xkwit depression screening assessment Annel Teresa HUMAN RESOURCES MGR-SCHOOL TEACHER Work Phone: Start: 92-51-4204Opxvetjpmwg observation [Identifier] in Cervix by Cyto stainAnnel Teresa HUMAN RESOURCES MGR-SCHOOL TEACHER Work Phone: Start: 48-66-9282Uasziexniyrua metabolic panelUnknown Provider Result Plan of Treatment DateCare ActivityDetailAuthorStart: 27-74-5375Ttmhcqqcc for malignant neoplasm of cervixPap SmearProMilanoo.comca [facility] SystemStart: 07-06-2025 End: 38-55-0015Vdjcyin encounter ykddfvbtx18/25/2025 10:40 AM EST Routine [facility] [address] [place] [phone] Abad Canchola DO [address] [place] [address] NOMFatimah [place] OBGYNStart: 06-28-2025 End: 48-76-7463Cgridkd encounter vijvuukno87/17/2025 3:30 PM EST Routine [facility] [address] [place], [id number] Say Roy, FURNACE PROCESS SUPERVISOR [address] [place] [phone] NOMFatimah [place] OBGYNStart: 06-21-2025 End: 19-67-7805Pfcensb encounter ttxjhijhp73/10/2025 3:30 PM EST Routine [facility] [address] [place], [id number] Abad Canchola DO [address] [place] [address] [facility] [place] [facility]BGYNStart: 06-21-2025 End: 06-00-6766Rvplpecwmhky / ancillary services zzuzwquurt10/10/2025 3:00 PM EST Ancillary Procedure [facility] [address] [place] [phone] [facility] [place] OBGYNStart: 06-21-2025 End: 82-02-7616Jhveusq aminotransferase [Enzymatic activity/volume] in Serum or PlasmaALT Lab Routine induced hypertension, antepartum ([facility]) Expected: 06/21/2025 (Approximate), Expires: 06/21/2026[facility] HealthcareComment on above:Expected: 06/21/2025 (Approximate), Expires: 06/21/2026Start: 06-21-2025 End: 71-26-7853Wcnatznpd aminotransferase [Enzymatic activity/volume] in Serum or PlasmaAST Lab Routine induced hypertension, antepartum ([facility]) Expected: 06/21/2025 (Approximate), Expires: 06/21/2026[facility] HealthcareComment on above:Expected: 06/21/2025 (Approximate), Expires: 06/21/2026Start: 06-21-2025 End: 96-66-3681NNI W Auto Differential panel - BloodCBC and differential Lab Routine induced hypertension, antepartum ([facility]) Expected: 06/12 (Approximate), Expires: 06/21/2026[facility] HealthcareComment on above: Expected: 06/21/2025 (Approximate), Expires: 06/21/2026Start: 06-21-2025 End: 53-88-4315Iwlkumfbjf [Mass/volume] in Serum or PlasmaCreatinine Lab Routine induced hypertension, antepartum ([facility]) Expected: 06/21/2025 (Ap proximate), Expires: 06/21/2026[facility] Work Phone: comment on above:Expected: 06/21/2025 (Approximate), Expires: 06/21/2026Start: 06-21-2025 End: 94-66-1893Qhpgjjn dehydrogenase [Enzymatic activity/volume] in Serum or Plasma by Lactate to pyruvate reactionLactate dehydrogenase Lab Routine induced hypertension, antepartum ([facility]) Expected: 06/21/2025, Expires: 06/21/2026[facility] HealthcareComment on above:Expected: 06/21/2025, Expires: 06/21/2026Start: 06-21-2025 End: 59-44-2051Tmdvqwt, urine, 24 hourProtein, urine, 24 hour Lab Routine induced hypertension, antepartum ([facility]) Expected: 06/21/2025 (Approximate), Expires: 06/21/2026[facility] HealthcareComment on above:Expected: 06/21/2025 (Approximate), Expires: 06/21/2026Start: 06-21-2025 End: 90-42-0434Ib and pttPt and ptt Lab Routine induced hypertension, antepartum ([facility]) Expected: 06/21/2025, Expires: 06/21/2026[facility] Healthcare Comment on above:Expected: 06/21/2025, Expires: 06/21/2026Start: 06-21-2025 End: 17-82-9646Puslw [Mass/volume] in Serum or PlasmaUric acid Lab Routine induced hypertension, antepartum ([facility]) Expected: 06/21/2025 (Hilary roximate), Expires: 06/21/2026[facility] HealthcareComment on above:Expected: 06/21/2025 (Approximate), Expires: 06/21/2026Start: 06-21-2025 End: 76-40-2985Qfmg nitrogen [Mass/volume] in Serum or PlasmaBUN Lab Routine induced hypertension, antepartum ([facility]) Expected: 06/21/2025, Expires:06/21/2026[facility] HealthcareComment on above:Expected: 06/21/2025, Expires: 06/21/2026Start: 06-08-2025 End: 84-40-4469TP for pregnancyUS OB follow up transabdominal approach Imaging Routine size inconsistent with dates ([facility]) Expected: 06/08/2025, Expires: 10/09/2025[facility] Work Phone: comment on above:Expected: 06/08/2025, Expires: 10/09/2025Start: 06-08-2025 End: 95-15-9508Gyvpgqy encounter vgaiowofx57/28/2025 8:30 AM EDT Routine [facility] [address] [place], [id number] Shagufta Perkins PA [address] [place], [place] [id number] ArrivedNO Logan OBGYNComment on above:ArrivedStart: 05-12-2025 End: 60-88-4957OVH panel - Blood by Automated countCBC Lab Routine Diabetes mellitus screening Expected: 05/12/2025 (Approximate), Expires: 05/12/2026[facility] Work Phone: comment on above:Expected: 05/12/2025 (Approximate), Expires: 05/12/2026Start: 05-12-2025 End: 89-84-9612Kdblctoojcp of glucose 1 hour after glucose challenge for glucose tolerance testGlucose tolerance, 1 hour Lab Routine Diabetes mellitus screening Expected: 05/12/2025 (Approximate), Expires: 05/12/2026[facility] HealthcareComment on above:Expected: 05/12/2025 (Approximate), Expires: 05/12/2026Start: 05-12-2025 End: 32-89-2061Ohdbpbw encounter procedureNOMS Ford OBGYNComment on above: ArrivedStart: 04-15-2025 End: 26-68-4519Xhbpyhi encounter procedureNOMS Logan OBGYNComment on above: ArrivedStart: 62-99-0504IWHVX-19 Vaccine ( season)COVID-19 Vaccine ( season)[facility]OMS HealthcareStart: 90-86-3283Ufoukslay vaccinationNOPA HealthcareStart: 04-08-2025 End: 68-05-8421Fjvztmhvbvne / ancillary services hhfglxpcxi09/28/2025 8:00 AM EDT Ancillary Procedure [facility] [place] [facility] [address] [place] [phone] [facility]Start: 04-05-2025 End: 60-31-6570Tesynce encounter hqtaoebbl33/25/2025 10:20 AM EDT Office Visit [facility] [address] [phone] Abad Canchola DO [address] [place] [address] NOMS BCP OBStart: 03-18-2025 End: 42-16-3117Xurwn fetoprotein, maternalAlpha fetoprotein, maternal Lab Routine 17 weeks gestation of ([facility]) Second trimester ([facility]) Expected: 03/18/2025 (Approximate), Expires: 04/18/2025[facility] Comment on above:Expected: 03/18/2025 (Approximate), Expires: 04/18/2025Start: 03-18-2025 End: 26-22-5438OH for pregnancyUS OB 14+ weeks anatomy scan Imaging Routine Screening, , for anatomic survey ([facility]) Expected: 03/18/2025, Expires: 06/18/2025[facility] LawnComment on above:Expected: 03/18/2025, Expires: 06/18/2025Start: 03-18-2025 End: 63-76-6152Oykptov encounter ovmzqlzdw77/07/2025 10:30 AM EDT Routine [facility] [address] [phone] Shagufta Perkins PA [address] [place], [place] [phone] NOMS BCP OBStart: 03-18-2025 End: 60-16-5162Muykdzwhhgkr / ancillary services pbebhnjenz83/07/2025 10:00 AM EDT Ancillary Procedure [facility] [address] [place], [place] [phone] NOMS BCP OBStart: 34-03-0763Wvgnrstzx vaccinationFlu vaccine (#1)Huseyin [facility] HospitalStart: 02-18-2025 End: 59-19-5995Wpigkkd encounter pkhlduumw98/10/2025 8:40 AM EDT Routine [facility] [address] [place] [address] Abad Canchola, [address] [place] [address] NOMS BCP OBStart: 01-21-2025 End: 61-35-1939LAY/RhABO/Rh Lab Routine Missed menses , unspecified gestational age ([facility]) Expected: 01/21/2025 (Approximate), Expires: 01/21/2026[facility] HealthcareComment on above:Expected: 01/21/2025 (Approximate), Expires: 01/21/2026Start: 01-21-2025 End: 51-76-1279hcrhsywbni31/12/2025 2:00 PM EDT Initial NOMS [address] [place] [address] NOMS BCP OBStart: 01-21-2025 End: 59-16-3194Aqutv type and Indirect antibody screen panel - BloodType and screen Lab Routine Missed menses , unspecified gestational age ([facility]) Expected: 01/21/2025 (Approximate), Expires: 01/21/2026[facility] Work Phone: comment on above:Expected: 01/21/2025 (Approximate), Expires: 01/21/2026Start: 01-21-2025 End: 88-07-2315Msydw of abuse panel - Urine by Screen methodRapid drug screen, urine Lab Routine , unspecified gestational age ([facility]) Encounter for supervision of normal first in first trimester ([facility]) Expected: 01/21/2025 (Approximate), Expires: 01/21/2026N[facility] HealthcareComment on above: Expected: 01/21/2025 (Approximate), Expires: 01/21/2026Start: 01-21-2025 End: 51-08-4371Hwpkjqeosbpy / ancillary services izmvitemcr33/12/2025 1:30 PM EDT Ancillary Procedure [facility] [address] [place] [address] OBZZ BCP OBStart: 12-17-2024 End: 25-19-0236Pfvtwhpquifv / ancillary services apeuembsng65/08/2025 8:00 AM EDT Ancillary Procedure [facility] [address] [place] [address] QAAH BCP OBStart: 12-01-2024 End: 33-42-5184Dlhqgbvsjnngb hormone ([facility])Antimullerian hormone ([facility]) Lab Routine Abnormal uterine bleeding (AUB) Endometriosis Expected: 12/01/2024 (Approximate), Expires: 12/01/2025N[facility] HealthcareComment on above:Expected: 12/01/2024 (Approximate), Expires: 12/01/2025Start: 12-01-2024 End: 39-59-0526PLPIZJHE Lab Routine PCOS (polycystic ovarian syndrome) Expected: 12/01/2024 (Approximate), Expires: 12/01/2025N[facility] HealthcareComment on above: Expected: 12/01/2024 (Approximate), Expires: 12/01/2025Start: 12-01-2024 End: 50-54-8372AW PelvisUS Pelvis w/ TV Imaging Routine PCOS (polycystic ovarian syndrome) Expected: 12/01/2024, Expires: 12/01/2025N[facility] HealthcareComment on above:Expected: 12/01/2024, Expires: 12/01/2025Start: 45-67-0168Altoa BMI ScreeningAdult BMI ScreeningProGreen Cross Hospitaltart: 12-71-4361Mlagbamxih ScreeningDepression ScreeningRegional Medical Center SystemStart: 91-55-5747Jsbwnlh ScreeningTobacco ScreeningRegional Medical Center SystemStart: 60-71-7476OFUZT-19 Vaccine ( season)COVID-19 Vaccine ( season)Huseyin [facility]nis [facility] HealthStart: 06-16-7354Jmchqpdep vaccinationNOPA HealthcareStart: 37-47-6723Xrcai BMI Follow Up PlanAdult BMI Follow Up PlanRegional Medical Center SystemStart: 08-49-2347Nzjeh BMI ScreeningAdult BMI ScreeningRegional Medical Center SystemStart: 17-47-1126Jtvuzyhdl for Chlamydia trachomatisChlamydia Screening [facility] Medical CenterComment on above:Postponed from 1999 (Not Indicated)Start: 83-21-0800Qriwkyrlb vaccinationInfluenza VaccineRegional Medical Center SystemStart: 93-27-5333Ymabprjhk vaccinationFlu vaccine (Season Ended) WYANDOTStart: 97-15-2737PAuO,Tdap and Td Vaccines (7 - Td or Tdap)DTaP,Tdap and Td Vaccines (7 - Td or Tdap)[facility] SystemStart: 29-47-4234BKcJ/Tdap/Td vaccine (1 - Tdap)DTaP/Tdap/Td vaccine (1 - Tdap)WYANDOTStart: 2018 Hepatitis B Vaccines (1 of 3 - 19+ 3-dose series)Hepatitis B Vaccines (1 of 3 - 19+ 3-dose series)[facility] HealthcareStart: 74-14-8510CNK Vaccines (1 - 3-dose series)HPV Vaccines (1 - 3-dose series)[facility] HealthcareStart: 12-73-3237Rrmodqk of varicella vaccinationVaricella Vaccines (1 of 2 - 13+ 2-dose series)[facility] HealthcareStart: 89-44-3225CVwJ/Tdap/Td Vaccines (1 - Tdap)DTaP/Tdap/Td Vaccines (1 - Tdap)[facility] HealthcareStart: 86-02-4222SYJ Vaccines (1 of 1 - Standard series)MMR Vaccines (1 of 1 - Standard series)[facility] HealthcareStart: 03-20-2000 COVID-19 Vaccine (#1)COVID-19 Vaccine (#1)WYANDOTBacteria identified in Urine by CultureUrine culture Microbiology Routine Missed menses Ordered: 01/21/2025[facility] HealthcareComment on above:Ordered: 01/21/2025BC W Auto Differential panel - BloodCBC and differential Lab Routine PCOS (polycystic ovarian syndrome) Ordered: 12/01/2024[facility] HealthcareComment on above:Ordered: 12/01/2024BC W Auto Differential panel - BloodCBC and differential Lab Routine Missed menses , unspecified gestational age ([facility]) Ordered: 01/21/2025[facility] HealthcareComment on above:Ordered: 01/21/2025HLAMYDIA TRACHOMATIS (GENITO/STI) CHLAMYDIA TRACHOMATIS (GENITO/STI) Lab Routine Exposure to STD Ordered: 03/18/2025[facility] HealthcareComment on above:Ordered: 03/18/2025HLAMYDIA TRACHOMATIS (GENITO/STI)CHLAMYDIA TRACHOMATIS (GENITO/STI) Lab Routine Vaginal discharge during , antepartum ([facility]) Ordered: 04/15/2025[facility] HealthcareComment on above:Ordered: 04/15/2025ytology Cervical or vaginal smear or scraping studyPap Smear Pathology and Cytology Routine Second trimester ([facility]) 21 weeks gestation ofpregnancy ([facility]) Ordered: 04/15/2025 [facility] Healthcare Work Phone: comment on above:Ordered: 04/15/2025DHEA-sulfateDHEA- sulfate Lab Routine PCOS (polycystic ovarian syndrome) Ordered: 12/01/2024[facility] HealthcareComment on above:Ordered: 12/01/2024Follicle stimulating hormone Follicle stimulating hormone Lab Routine PCOS (polycystic ovarian syndrome) Ordered: 12/01/2024[facility] HealthcareComment on above:Ordered: 12/01/2024hCG, quantitative, pregnancyhCG, quantitative, Lab Routine PCOS (polycystic ovarian syndrome) Ordered: 12/01/2024[facility] Healthcare Work Phone: comment on above:Ordered: 12/01/2024Hemoglobin A1c/Hemoglobin.total in BloodHemoglobin A1c Lab Routine Abnormal uterine bleeding (AUB) Endometriosis Ordered: 12/01/2024[facility] HealthcareComment on above: Ordered: 12/01/2024Hemoglobin A1c/Hemoglobin.total in BloodHemoglobin A1c Lab Routine Missed menses , unspecified gestational age ([facility]) Ordered: 01/21/2025[facility] HealthcareComment on above:Ordered: 01/21/2025Hepatitis B virus surface Ag [Presence] in Serum or Plasma by ImmunoassayHepatitis B surface antigen Lab Routine Missed menses , unspecified gestational age ([facility]) Ordered: 01/21/2025[facility] HealthcareComment on above:Ordered: 01/21/2025 Hepatitis C virus Ab [Presence] in Serum or Plasma by ImmunoassayHepatitis C antibody Lab Routine Missed menses , unspecified gestational age ([facility]) Ordered: 01/21/2025[facility] HealthcareComment on above:Ordered: 01/21/2025 HIV-1/HIV-2 antigen/antibody combination immunoassayHIV-1 and HIV-2 antibodies Lab Routine Missed menses , unspecified gestational age ([facility]) Ordered: 01/21/2025[facility] HealthcareComment on above:Ordered: 01/21/2025 Luteinizing hormoneLuteinizing hormone Lab Routine PCOS (polycystic ovarian syndrome) Ordered: 12/01/2024[facility] HealthcareComment on above:Ordered: 12/01/2024 Neisseria gonorrhoeae DNA [Presence] in Unspecified specimen by SANJANA with probe detectionNeisseria gonorrhea DNA probe, direct Lab Routine Exposure to STD Ordered: 03/18/2025[facility] HealthcareComment on above:Ordered: 03/18/2025Neisseria gonorrhoeae DNA [Presence] in Unspecified specimen by SANJANA with probe detection Neisseria gonorrhea DNA probe, direct Lab Routine Vaginal discharge during , antepartum ([facility]) Ordered: 04/15/2025[facility] HealthcareComment on above:Ordered: 04/15/2025Protein/Creatinine [Mass Ratio] in Urine Protein:Creatinine Ratio, Urine Lab Routine induced hypertension, antepartum ([facility]) Ordered: 06/21/2025[facility] HealthcareComment on above:Ordered: 06/21/2025 End: 18-34-6981Ufniiwhujzm [facility] Phone: Comment on above:Once for 1 Occurrences starting 03/04/2025 until 03/04/2025Reagin Ab [Presence] in Serum by RPRRPR Lab Routine Missed menses , unspecified gestational age ([facility]) Ordered: 01/21/2025[facility] HealthcareComment on above:Ordered: 01/21/2025Rubella antibody, IgGRubella antibody, IgG Lab Routine Missed menses , unspecified gestational age ([facility]) Ordered: 01/21/2025[facility] HealthcareComment on above: Ordered: 01/21/2025SURESWAB(R) ADVANCED VAGINITIS PLUS, TMASURESWAB(R) ADVANCED VAGINITIS PLUS, TMA Pathology and Cytology Routine Vaginal discharge Ordered: 0 03/18/2025[facility] Work Phone: comment on above:Ordered: 03/18/2025SURESWAB(R) ADVANCED VAGINITIS PLUS, TMASURESWAB(R) ADVANCED VAGINITIS PLUS, TMA Pathology and Cytology Routine Vaginal discharge during , antepartum ([facility]) Ordered: 04/15/2025[facility] HealthcareComment on above:Ordered: 04/15/2025 Thyrotropin [Units/volume] in Serum or PlasmaTSH Lab Routine PCOS (polycystic ovarian syndrome) Ordered: 12/01/2024[facility]:Ordered: 12/01/2024Thyroxine (T4) free [Mass/volume] in Serum or PlasmaT4, free Lab Routine PCOS (polycystic ovarian syndrome) Ordered: 12/01/2024[facility] Comment on above:Ordered: 12/01/2024 Immunizations Immunization DateImmunizationNotesCare TnagzohaWnifpion70-67-9319jytueryem, injectable, quadrivalent, preservative freeMary Kuns HUMAN RESOURCES MGR-SCHOOL TEACHER Work Phone: [facility] HospitalAppsembler [facility] HospitalCfkcgm75-31-4967hxggitmwx virus vaccine, unspecified formulationMary Kuns HUMAN RESOURCES MGR-SCHOOL TEACHER Work Phone: [facility] CenterWolezw70-53-8591HFHEV-91, mRNA, LNP- S, PF, 100mcg/0.5mL DoseMary Kuns HUMAN RESOURCES MGR-SCHOOL TEACHER Work Phone: [facility] CenterZomjch11-24-2193CUDHL-86, mRNA, LNP- S, PF, 100mcg/0.5mL DoseAnnel Teresa HUMAN RESOURCES MGR-SCHOOL TEACHER Work Phone: [facility] CenterGtjsna55-26-9950xiqaizpbs, injectable, quadrivalent, preservative freeAnnel Teresa HUMAN RESOURCES MGR-SCHOOL TEACHER Work Phone: [facility] CenterTlzsgz21-84-4191adtmrvkcf A vaccine, pediatric/adolescent dosage, 2 dose scheduleAnnel Teresa HUMAN RESOURCES MGR-SCHOOL TEACHER Work Phone: [facility]07-28-2017Human Papillomavirus 9-valent vaccineAnnel Teresa HUMAN RESOURCES MGR-SCHOOL TEACHER Work Phone: [facility] CenterIlrced70-22-5171hyjxyihuktacb oligosaccharide (groups A, C, Y and W-135) diphtheria toxoid conjugate vaccine (MCV4O)Annel Teresa HUMAN RESOURCES MGR-SCHOOL TEACHER Work Phone: [facility]10-30-2012human papilloma virus vaccine, quadrivalentAnnel Teresa HUMAN RESOURCES MGR-SCHOOL TEACHER Work Phone: [facility] [employer] Yvadmr19-50-0942tsyemfnpflgoe polysaccharide (groups A, C, Y and W-135) diphtheria toxoid conjugate vaccine (MCV4P)Annel Teresa HUMAN RESOURCES MGR-SCHOOL TEACHER Work Phone: [facility] CenterSroxvh76-14-0362jsijhkczw virus vaccineAnnel Teresa HUMAN RESOURCES MGR-SCHOOL TEACHER Work Phone: [facility] CenterKbncbo99-71-3049cwyrdfztq A vaccine, pediatric/adolescent dosage, 2 dose scheduleAnnel Teresa HUMAN RESOURCES MGR-SCHOOL TEACHER Work Phone: [facility]09-12-2012human papilloma virus vaccine, quadrivalentAnnel Teersa HUMAN RESOURCES MGR-SCHOOL TEACHER Work Phone: [facility]09-12-2012tetanus toxoid, reduced diphtheria toxoid, and acellular pertussis vaccine, adsorbedAnnel Teresa HUMAN RESOURCES MGR-SCHOOL TEACHER Work Phone: [facility] CenterNlkwzm28-09-6244bqqakwtptr, tetanus toxoids and acellular pertussis vaccine, unspecified 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 Teresa HUMAN RESOURCES MGR-SCHOOL TEACHER Work Phone: [facility]07-07-2005measles, mumps and rubella virus vaccineAnnel Teresa HUMAN RESOURCES MGR-SCHOOL TEACHER Work Phone: [facility] CenterBbydyn52-24-9351envnmxxgsm vaccine, inactivatedAnnel Teresa HUMAN RESOURCES MGR-SCHOOL TEACHER Work Phone: [facility] CenterEdkjnn20-55-5959eofswfncgt, tetanus toxoids and acellular pertussis vaccine, unspecified 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 Teresa HUMAN RESOURCES MGR-SCHOOL TEACHER Work Phone: [facility] CenterQgyyah77-54-6533auphyerwvca influenzae type b conjugate and Hepatitis B vaccineAnnel Teresa HUMAN RESOURCES MGR-SCHOOL TEACHER Work Phone: [facility]04-26-2001measles, mumps and rubella virus vaccineAnnel Teresa HUMAN RESOURCES MGR-SCHOOL TEACHER Work Phone: [facility] CenterQdvtyd15-40-9965rmwcqvomqx vaccine, inactivatedAnnel Teresa HUMAN RESOURCES MGR-SCHOOL TEACHER Work Phone: [facility] CenterZfuvbw47-83-8176knreqzcst virus vaccineAnnel Teresa HUMAN RESOURCES MGR-SCHOOL TEACHER Work Phone: [facility] CenterDfvhfn10-93-2159wkhdvxlicg, tetanus toxoids and acellular pertussis vaccine, unspecified 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 Teresa HUMAN RESOURCES MGR-SCHOOL TEACHER Work Phone: [facility] CenterEalcvl52-40-4440wggdnqigaeu influenzae type b vaccine, PRP-OMP conjugateAnnel Teresa HUMAN RESOURCES MGR-SCHOOL TEACHER Work Phone: [facility] CenterYkmrdp38-45-9848lgooayszxn, tetanus toxoids and acellular pertussis vaccine, unspecified 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 Teresa HUMAN RESOURCES MGR-SCHOOL TEACHER Work Phone: [facility] CenterBtxzls23-31-2361evlgwbojbua influenzae type b conjugate and Hepatitis B vaccineAnnel Teresa HUMAN RESOURCES MGR-SCHOOL TEACHER Work Phone: [facility] CenterIlhidr20-88-5783orveuasaim vaccine, inactivatedAnnel Teresa HUMAN RESOURCES MGR-SCHOOL TEACHER Work Phone: [facility] CenterVxejiu71-02-8768odoywljjre, tetanus toxoids and acellular pertussis vaccine, unspecified 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 Teresa HUMAN RESOURCES MGR-SCHOOL TEACHER Work Phone: [facility] CenterJqnqib09-42-5790doyjbxgebbk influenzae type b conjugate and Hepatitis B vaccineAnnel Teresa HUMAN RESOURCES MGR-SCHOOL TEACHER Work Phone: [facility] CenterWwinzo01-02-8038eyxfrxfdjv vaccine, inactivatedAnnel Teresa HUMAN RESOURCES MGR-SCHOOL TEACHER Work Phone: [facility] Payers DatePayer CategoryPayerPolicy [id number] Stevenson Blue Shield [id number] [id number] Health [id number] [id number] 1.2.840.363532.1.13.239.2.7.3.464826. [id number].3.449384.79178-57-5774Wxphpwl Health [id number].9.139971.579881.49260-67-3869Qfrhezb 1.2.840.706360.1.13.693.2.7.3.681[id number] 2.16.840.1.393966.3.57[id number] 2.16.840.1.315124.3.57[id number] 2.16.840.1.170705.3.57[id number] 2.16.840.1.316760.3.57[id number] 2.16.840.1.658039.3.57[id number] 2.16.840.1.629017.3.57[id number] 2.16840.1.265225.3.57[id number] 2.16.840.1.475047.3.57[id number] 2.16.840.1.936011.3.57[id number] 2.16.840.1.637405.3.57[id number] 2.16.840.1.234081.3.57[id number] 2.16.840.1.910585.3.57[id number] 2.16.840.1.347603.3.57[id number] 2.16.840.1.794149.3.57[id number] 2.16.840.1.331070.3.579.[id number] 2.16.840.1.737729.3.57[id number] 2.16.840.1.097988.3.57[id number] 2.16.840.1.399739.3.57[id number] 2.16.840.1.964215.3.579.2.218754-18-1698Deehvhu Health [id number] [id number] YvlixwtbvOPL8074 21x21bww-2969-9k75-52o2-440599819xx7 Social History DateTypeDetailFacilityTobacco smoking status NHISTobacco smoking consumption unknownWYANDOT Work Phone: start: 57-56-7583Zew Assigned At BirthNot on file [facility] Work Phone: start: 03-03-2023 End: 27-07-0801Hxozvij smoking status NHISNever smoked tobacco (finding) [facility] Hospitaltart: 88-60-0072Ryf Assigned At BirthFemale [facility] Hospitaltart: 03-25-2024 End: 76-84-8576Sqzpgfcsw beverage intakeLifetime non-drinker (finding)[facility] HealthcareStart: 03-25-2024 End: 69-44-8766Fujlwxx of Social functionProMediAccess Hospital [facility] SystemStart: 03-25-2024 End: 99-36-8522Cvirukz use panelProThe [facility] SystemStart: 83-53-7539Zmwgdhg use and exposureSmokeless tobacco non-userProThe [facility] SystemStart: 45-76-1799Inhohmt intakeEx-drinker (finding)[facility] SystemStart: 20-00-3898Mhd hard is it for you to pay for the very basics like food, housing, medical care, and heatingNot hard at [facility] HospitalForceManager SystemStart: 05-04-2022 Gender identityIdentifies as female gender (finding)[facility] Start: 97-14-7684YkiilpiifVABLChildren's Hospital at ErlangerStart: 45-84-5386HdhTpptfb (finding)[facility] Clinical Notes 06-30-2021 to 06-21-2025 Note Date & ThsmUqbvYrdoigtk20-30-1152 History of Present illness Narrative* Cecilia Khan, GASOLINE ATTENDANT - 06/21/2025 3:40 PM EST Reason for [...] nursing note reviewed. Exam conducted with a special library librarian present. Vitals: Estimated body mass index is 35.19 kg/m as calculated from the following: Height as of 09/24/19: 5' 6 . Weight as of this encounter: 218 lb. BP: Patient's last menstrual period was 11/19/2024 (approximate). Assessment/Plan ICD-10-CM 1. 28 weeks gestation of ([facility]) Z3A.28 POCT urinalysis dipstick manually resulted 2. Third trimester ([facility]) Z34.93 POCT urinalysis dipstick manually resulted 3. induced hypertension, antepartum ([facility]) O13.9 Creatinine Protein, urine, 24 hour Pt [...] of: Abad Canchola DO documented in this encounterC[facility] LawnFqrwupnbnc59-46-8244 History of Present illness Narrative* DOMINGUEZ Villagran [...] nursing note reviewed. Exam conducted with a special library librarian present. Vitals: Estimated body mass index is 34.4 kg/m as calculated from the following: Height as of 09/24/19: 5' 6 . Weight as of this encounter: 213 lb 1.9 oz. BP: 124/82 Patient's last menstrual period was 11/19/2024 (approximate). Assessment/Plan ICD-10-CM 1. 28 weeks gestation of ([facility]) Z3A.28 POCT urinalysis dipstick manually resulted 2. Second trimester ([facility]) Z34.92 POCT urinalysis dipstick manually resulted Return [...] behalf of: DOMINGUEZ Villagran documented in this encounterCox [facility] LawnZcqlxjguqb92-14-7149 History of Present illness Narrative* Say Roy [...] nursing note reviewed. Exam conducted with a special library librarian present. Vitals: Estimated body mass index is 33.25 kg/m as calculated from the following: Height as of 09/24/19: 5' 6 . Weight as of 04/15/25: 206 lb. BP: Patient's last menstrual period was 11/19/2024 (approximate). ASSESSMENT & PLAN ICD-10-CM 1. 24 weeks gestation of ([facility]) Z3A.24 POCT urinalysis dipstick manually resulted 2. Second trimester ([facility]) Z34.92 3. Diabetes mellitus screening Z13.1 CBC [...] of: Say Roy NP documented in this encounterC[facility] LawnUnavyfubdp33-63-8849 History of Present illness Narrative* Chelsie Arango [...] nursing note reviewed. Exam conducted with a special library librarian present. Vitals: Estimated body mass index is 33.25 kg/m as calculated from the following: Height as of 09/24/19: 5' 6 . Weight as of this encounter: 206 lb. BP: 116/72 Patient's last menstrual period was 11/19/2024 (approximate). ASSESSMENT & PLAN ICD-10-CM 1. Second trimester ([facility]) Z34.92 Pap Smear 2. 21 weeks gestation of ([facility]) Z3A.21 Pap Smear 3. Nausea and vomiting during ([facility]) O21.9 metoclopramide (Reglan) 10 MG tablet 4. Vaginal discharge during , antepartum ([facility]) O26.899 N89.8 Return OB/Annual Exam: Patient presents [...] of: Abad Canchola DO documented in this encounterC[facility] LawnKfwoudfljx68-36-1110 History of Present illness Narrative* DOMINGUEZ Villagran [...] PLAN ICD-10-CM 1. 17 weeks gestation of ([facility]) Z3A.17 POCT urinalysis dipstick manually resulted Alpha fetoprotein, maternal Alpha fetoprotein, maternal 2. Second trimester ([facility]) Z34.92 POCT urinalysis dipstick manually resulted Alpha fetoprotein, maternal Alpha fetoprotein, maternal 3. Subchorionic hematoma in first trimester, single or unspecified fetus ([facility]) O41.8X10 O46.8X1 4. Screening, , for anatomic survey ([facility]) Z36.89 US OB 14+ weeks anatomy scan [...] behalf of: DOMINGUEZ Villagran documented in this encounterCox [facility] LawnFxxrkumecm59-31-8256 Note ADDENDUM #1 Current examination demonstrated an [...] Delivery: 08/26/25 Gestational Age as of 03/18/2025: 87t7x10-27-7734 History of Present illness Narrative* Chelsie Arango [...] nursing note reviewed. Exam conducted with a special library librarian present. Vitals: Estimated body mass index is 33.25 kg/m as calculated from the following: Height as of 09/24/19: 5' 6 . Weight as of this encounter: 206 lb. BP: 124/76 Patient's last menstrual period was 11/19/2024 (approximate). ASSESSMENT & PLAN ICD-10-CM 1. Second trimester ([facility]) Z34.92 POCT urinalysis dipstick manually resulted 2. 13 weeks gestation of ([facility]) Z3A.13 New OB: Patient presents today for [...] or undercooked meat, and [facility]. Patient has been consulted regarding any further [...] of: Abad Canchola DO documented in this encounterCox Walnut LawnBmjegkmpsp84-22-7717 History of Present illness Narrative* Cris Gross [...] dipstick manually resulted , unspecified gestational age ([facility]) - Type and screen; Future - ABO/Rh; Future - CBC and differential - Hemoglobin A1c - RPR - Rubella antibody, IgG - Hepatitis B surface antigen - Hepatitis C antibody - HIV-1 and HIV-2 antibodies - Rapid drug screen, urine; Future Encounter for supervision of normal first in [facility] - Rapid drug screen, urine; Future Nurse Note: Pt unsure of doing the [place] billion to one lab. Advised if patient changes mind to make sure both labs and [place] done at the same time. PVU. OB [...] or undercooked meat, and stay away from [facility]. Patient has also been advised to not [...] by: Cris Gross MA documented in this encounterCox [facility] LawnJeodyvrstl96-28-5945 History of Present illness Narrative* Say Roy [...] nursing note reviewed. Exam conducted with a special library librarian present. Vitals: Estimated body mass index is [...] of: Say Roy NP documented in this encounterCox Walnut LawnEdbxnonlun92-92-0164 History of Present illness Narrative* Misa Knight [...] nursing note reviewed. Exam conducted with a special library librarian present. Vitals: Estimated body mass index is [...] of: Abad Canchola DO documented in this encounterJon Ville [address]Fprhtbxofa28-34-8793 Miscellaneous Notes* Telephone Encounter - Lisa Tijerina - 12/03/2023 8:07 AM EDT ----- Message from YASMINE Singh sent at 03/05/2023 5:31 PM EDT ----- Regarding: wellness exam Due December of - Annel * Telephone Encounter - Lisa Tijerina - 12/03/2023 8:07 AM EDT Patient is switching p[facility] Tele[facility] encounter Note* Telephone Encounter - Lisa Tijerina - 12/03/2023 8:07 AM EDT ----- Message from YASMINE Singh sent at 03/05/2023 5:31 PM EDT ----- Regarding: wellness exam Due December of - Annel [facility]04-23-2024 Telephone encounter Note* Telephone Encounter - Lisa Tijerina - 12/03/2023 8:07 AM EDT Patient is switching pcp [facility]12-22-2023 History of Present illness Narrative* [...] and continue to monitor for now YASMINE Signh 08/02/23 1251 documented in this encounterK[facility]11-19-2021 NoteThe [place], [place] NAME: MEREDITH ANTONIO DATE OF : MEDICAL REC#: [id number] INTEGRATION ARCHITECT: [id number] NIKOLAS BATISTAADMIGOR DATE: 06/30/2021 09:48:00 DIRECTOR RECREATION CENTER DATE: 06/30/2021 20:15 DICTATING PHYSICIAN: ABAD CANCHOLA DICTATION DATE: 06/30/2021 12:00 OPERATIVE NOTE OPERATION DATE: 06/30/2021 PROCEDURE NAME: Diagnostic laparoscopy. PREOPERATIVE DIAGNOSES: 1. Pelvic pain. 2. Menorrhagia. 3. Dysmenorrhea. POSTOPERATIVE DIAGNOSES: 1. Pelvic pain. 2. Menorrhagia. 3. Dysmenorrhea. 4. Endometriosis posterior cul-de-sac. ANESTHESIA: General. SURGEON: Abad Canchola DO PSYCHODRAMATIST: CECILIO Mendoza URINE OUTPUT: Yellow and clear. [...] Abad Canchola DO on 07/03/2021 09:18 AM [facility] Signed and Approved by: DR ABAD CANCHOLA . 07/03/2021 09:18:00[facility] CenterEvaluation noteNo assessment information availableLake [facility] Work Phone: Evaluation note* Diagnosis Onset Date Resolution Status Anxiety and depression acute [facility] Work Phone: Evaluation note* Diagnosis Acute non-recurrent maxillary sinusitis- Primary Non-recurrent acute serous otitis media of both ears Elevated blood pressure reading Elevated blood pressure reading without diagnosis of hypertension documented in this encounter [facility] SystemEvaluation note* Diagnosis Female infertility Female infertility of unspecified origin PCOS (polycystic ovarian syndrome) Polycystic ovaries Abnormal uterine bleeding (AUB) Endometriosis Endometriosis, site unspecified Insulin resistance Other abnormal glucose documented in this encounter [facility] HealthcareEvaluation note* Diagnosis Amenorrhea Absence of menstruation Missed menses , unspecified gestational age ([facility]) Encounter for supervision of normal first in first trimester ([facility]) documented in this encounter [facility] HealthcareEvaluation note* Diagnosis Nausea and vomiting during - Primary Currently in first trimester with unknown gestational age Constipation, unspecified constipation type documented in this encounter [facility]Evaluation note* Diagnosis Second trimester ([facility]) state, incidental 13 weeks gestation of ([facility]) documented in this encounter [facility] HealthcareEvaluation note* Diagnosis 17 weeks gestation of ([facility]) Second trimester ([facility]) state, incidental Subchorionic hematoma in first trimester, single or unspecified fetus ([facility]) Screening, , for anatomic survey ([facility]) Encounter for anatomic survey Exposure to STD Vaginal discharge Leukorrhea, not specified as infective documented in this encounter [facility]* Diagnosis Second trimester ([facility]) state, incidental 21 weeks gestation of ([facility]) Nausea and vomiting during ([facility]) Vaginal discharge during , antepartum ([facility]) documented in this encounter [facility] HealthcareEvaluation note* Diagnosis 24 weeks gestation of ([facility]) Second trimester ([facility]) state, incidental Diabetes mellitus screening Screening for diabetes mellitus documented in this encounter [facility]Evaluation note* Diagnosis size inconsistent with dates ([facility])- Primary 28 weeks gestation of ([facility]) Second trimester ([facility]) state, incidental documented in this encounter [facility]* Diagnosis 28 weeks gestation of ([facility]) Third trimester ([facility]) state, incidental induced hypertension, antepartum ([facility]) Transient hypertension of , antepartum documented in this encounter [facility] HealthcareInstructionsNot on filedocumented in this encounterProMediAccess Hospital Dayton SystemInstructionsNot on filedocumented in this encounterProThe [facility]health System System Summary Purpose Family History No Family [...] and content) DATE CREATED AUTHOR 06/13/2022 [facility] DATE CREATED AUTHOR AUTHOR'S ORGANIZ ATION 08/09/2023 [facility] DATE CREATED AUTHOR AUTHOR'S ORGANIZ ATION 03/07/2025 [facility] DATE CREATED AUTHOR AUTHOR'S ORGANIZ ATION 06/24/2025 [facility] EPIC Care Teams (unrecognized sec tion and content) Team MemberRelationshipSpecialtyStart DateEnd Date Annel Teresa, HUMAN RESOURCES MGR - ANIMAL REHABILITATOR [address] [place] [address] [facility] Team Status: Active Member Role Status [...] DateEnd Date Michelle Pabon MD [address] [place] [id number] PCP - Generalmily Medicine03/25/24Team MemberRelationshipSpecialtyStart DateEnd Date Annel Teresa APRN-SCHOOL TEACHER [address] [place] [address] PCP - GeneralFamily Medicine01/18/20Team MemberRelationshipSpecialtyStart DateEnd Date Michelle Pabon MD [address] [facility] [place] [address] PCP - GeneralFamily Medicine03/25/24Team MemberRelationshipSpecialtyStart DateEnd Date Michelle Pabon MD [address] [facility] [place] [address] PCP - GeneralFamily Medicine03/25/24Team MemberRelationshipSpecialtyStart DateEnd Date Michelle Pabon MD [address] [facility] [place] [address] PCP - GeneralFamily Medicine03/25/24Team MemberRelationshipSpecialtyStart DateEnd Date Michelle Pabon MD [address] [facility] [place] [address] PCP - GeneralFamily Medicine03/25/24Team MemberRelationshipSpecialtyStart DateEnd Date Michelle Pabon MD [address] [facility] [place] [address] PCP - GeneralFamily Medicine03/25/24Team MemberRelationshipSpecialtyStart DateEnd Date Michelle Pabon MD [address] [facility] [place] [address] PCP - GeneralFamily Medicine03/25/24Team MemberRelationshipSpecialtyStart DateEnd Date Michelle Pabon MD [address] [facility] [place] [address] PCP - GeneralFamily Medicine03/25/24Team MemberRelationshipSpecialtyStart DateEnd Date Michelle Pabon MD [address] [facility] [place] [address] PCP - GeneralFamily Medicine03/25/24Team MemberRelationshipSpecialtyStart DateEnd Date Michelle Pabon MD [address] [facility] [place] [address] PCP - GeneralFamily Medicine03/25/24Team MemberRelationshipSpecialtyStart DateEnd Date Annel Teresa APRN - [facility] [address] [place] [address] PCP - GeneralNurse Practitioner01/10/23Team MemberRelationshipSpecialtyStart Date End Date Michelle Pabon MD [address] [facility] [place] [address] PCP - GeneralFamily Medicine03/25/24Team MemberRelationshipSpecialtyStart DateEnd Date Michelle Pabon MD [address] [facility] [place] [address] PCP - GeneralFamily Medicine03/25/24Team MemberRelationshipSpecialtyStart DateEnd Date Michelle Pabon MD [address] [facility] [place] [address] PCP - GeneralFamily Medicine03/25/24Team MemberRelationshipSpecialtyStart DateEnd Date Michelel Pabon MD [address] [facility] [place] [id number] PCP - [facility]03/25/24Team MemberRelationshipSpecialtyStart DateEnd Date Michelle Pabon MD [address] [facility] [place] [address] PCP - [facility]03/25/24Te MemberRelationshipSpecialtyStart DateEnd Date Michelle Pabon MD [address] [facility] [place] [address] PCP - [facility]03/25/24Te MemberRelationshipSpecialtyStart DateEnd Date Michelle Pabon MD [address] [facility] [place] [address] PCP - [facility]03/25/24 Goals (unrecognized section and content) Goals may [...] BE BASED ON THE PRIMARY CLINICAL RECORDS. [facility]. provides no warranty or guarantee of the accuracy or completeness of information in this document.
--- OUTSIDE RECORDS SUMMARY | 2025-07-04 10:32 | XMS_ITS | Clinical Summary ---
Author Organization [facility] Address [address], [address] [place] [address] Care Team Providers Care Soft Drink Powder Mixer Name Role Phone Annle Yuen ALESSANDRA - [facility] Primary Care Provider [phone] Social History Tobacco UseTypesPacks/DayYears UsedDateSmoking Tobacco: Never Assessed CommentsUnknownSex and Gender InformationValueDate RecordedSex Assigned at Not on fileLegal IxoMqsjok49/01/2023 10:58 AM EDTGender IdentityNot on file Sexual OrientationNot on file Plan of Treatment Health MaintenanceDue DateLast DoneCommentsDTaP/Tdap/Td vaccine (1 - Tdap) 2018Flu vaccine (#1)5COVID-19 Vaccine ( - season) 2025Polio vaccineAged OutNo longer eligible based on patient's age to complete this topic Insurance * Guarantor: Yenifer ViverosAccount TypeRelation to PatientDate of BirthPhone Billing AddressPersonal/GnhiveVawh91/09/2000 [facility] [place] [address] Care Teams Team MemberRelationshipSpecialtyStart DateEnd Date Annel Yuen, BENCH MACHINE OPERATOR - ENERGY CONSERVATION SPECIALIST [address] [place] [address] PCP - GeneralNurse Practitioner01/10/23
--- OUTSIDE RECORDS SUMMARY | 2025-07-04 10:33 | XMS_ITS | Encounter Summary ---
Author Organization [facility] Address [address] [place] [address] Care Team Providers Care Director Commercial Sales Name Role Phone Michelle Pabon MD Primary Care Provider [phone] Encounter Details DateTypeDepartmentCare Team (Latest Contact Info)Cnhagalpthk05/12/2025linisync Result Encounter [facility] Unsolicited Abad Canchola DO [address] [place], [place] [address] Social History Tobacco UseTypesPacks/DayYears UsedDateSmoking Tobacco: NeverAlcohol UseStandard Drinks/WeekCommentsNever0 (1 standard drink = 0.6 oz pure alcohol) Estimated Date of XnpdjxgwZrppldbbVeb94/15/2026ased on last menstrual period of 11/19/2024 (Approximate)Sex and Gender InformationValueDate RecordedSex Assigned at BirthNot on fileLegal JvhXamxtx56/15/2023 10:09 PM EDTGender IdentityNot on fileSexual OrientationNot on filedocumented as of this encounter Plan of Treatment DateTypeDepartmentCare Team (Latest Contact Info)Upyaqamkhkb31/25/2025 10:40 AM ESTRoutine [facility] [address] [place] [address] Abad Canchola DO [address] [place] [address] documented as of this encounter Procedures Procedure NamePriorityDate/TimeAssociated DiagnosisCommentsTBH CREATININERoutine 06/23/2025 4:19 PM EST SRMCOH PROTHROMBIN TIME INR W/O LBULCyouwrs39/12/2025 4:19 PM EST CCF AWACosylni11/12/2025 4:19 PM EST CCF IIEVNcfqfdd42/12/2025 4:19 PM EST ALL URIC HZZHWnkswmx04/12/2025 4:19 PM EST ALL NJMHshqbwo68/12/2025 4:19 PM EST ALL CBC WITH AUTO CCXLOkznxtu38/12/2025 4:19 PM EST ALL MNBLftucsg59/12/2025 4:19 PM EST TBH URINE T PROTEIN CREAT KSKNOWabolti94/12/2025 4:10 PM EST TBH TOTAL PROTEIN 24 HOUR CPMVASflbwns43/12/2025 7:45 AM EST documented in this encounter Results * ALL LDH (06/23/2025 4:19 PM EST)ComponentValueRef RangeTest MethodAnalysis TimePerformed AtPathologist SignatureLACTATE [id number] - 234 U/LTBH Specimen (Source)Anatomical Location / [...] TimePerformed AtPathologist SignatureCREATININE0.52(L)0.55 - 1.02 mg/dLTBHTBH EGFR-AF MARSHALLESE>60>=60 mL/min/1.73m 2TBHTBH EGFR-NON AF MARSHALLESE>60>=60 mL/min/1.73m 2TBHSpecimen (Source)Anatomical Location / LateralityCollection Method [...] Jesika DOCLINISYNCFinal Result Performing OrganizationAddressCity/State/ZIP CodePhone Number [facility] * (ABNORMAL) ALL CBC WITH AUTO DIFF (06/23/2025 4:19 PM EST)ComponentValueRef RangeTest MethodAnalysis TimePerformed AtPathologist SignatureTBH WBC12.6(H) 4.0 - 11.0 10 3/uLTBHTBH RBC4.494.20 - 5.40 10 6/uLTBHTBH HGB13.612.0 - 16.0 g/dLTBHTBH HCT38.936.0 - 48.0 %TBHTBH MCV86.681.0 - 99.0 fLTBHTBH MCH30.326.7 - 34.0 pgTBHTBH MCHC35.029.9 - 35.2 g/dLTBHTBH RDW12.811.0 - 15.0 %TBHTBH PLT 075629 - 450 10 3/uLTBHTBH MPV10.79.5 - 13.5 [...] Jesika DOCLINISYNCFinal Result Performing OrganizationAddressCity/State/ZIP CodePhone Number [facility] * CCF APTT (06/23/2025 4:19 PM EST)ComponentValueRef RangeTest MethodAnalysis TimePerformed AtPathologist SignaturePARTIAL THROMBOPLASTIN TIME26.122.3 - 36.2 secTBHSpecimen (Source)Anatomical Location / LateralityCollection Method / VolumeCollection TimeReceived Time06/23/2025 4:19 PM EST06/23/2025 4:20 PM EST Narrative CLINISYNC - 06/23/2025 4:49 PM EST Authorizing ProviderResult TypeResult StatusCorey Jesika DOCLINISYNCFinal Result Performing OrganizationAddressCity/State/ZIP CodePhone Number [facility] * SRMCOH PROTHROMBIN TIME INR W/O COUM [...] Jesika DOCLINISYNCFinal Result Performing OrganizationAddressCity/State/ZIP CodePhone Number [facility] * (ABNORMAL) TBH URINE T PROTEIN CREAT RATIO (06/23/2025 4:10 PM EST)Component ValueRef RangeTest MethodAnalysis TimePerformed AtPathologist SignatureTOTAL PROTEIN URINE XFZNUB75.0(H)<=11.9 mg/dLTBHCREATININE URINE AJHYLG236.5320.00 - 300.00 mg/dLTBHPROTEIN CREATININE RATIO URINE0.09TBHSpecimen (Source) Anatomical Location / LateralityCollection Method / VolumeCollection Time Received Time06/23/2025 4:10 PM EST06/23/2025 4:21 PM EST Narrative CLINISYNC - 06/24/2025 12:35 PM EST Authorizing ProviderResult TypeResult StatusCorey Jesika DOCLINISYNCFinal Result Performing OrganizationAddressCity/State/ZIP CodePhone Number CLINISYNC [facility] * (ABNORMAL) TBH TOTAL PROTEIN 24 HOUR URINE (06/23/2025 7:45 AM EST)Component ValueRef RangeTest MethodAnalysis TimePerformed AtPathologist SignatureTOTAL PROTEIN URINE NTPGWN43.2(H)<=11.9 mg/dLTBHTOTAL VOLUME 24 HOUR URINE1,780 mL/24hrTBHTBH TOTAL PROTEIN 24 HOUR ECGDS294.2(H)<=149.1 mg/24hrTBHSpecimen (Source)Anatomical Location / LateralityCollection Method / VolumeCollection TimeReceived Time06/23/2025 7:45 AM EST06/23/2025 4:21 PM EST Narrative CLINISYNC - 06/24/2025 12:46 PM EST Authorizing ProviderResult TypeResult StatusCorey Jesika DOCLINISYNCFinal Result Performing OrganizationAddressCity/State/ZIP CodePhone Number [facility] documented in this encounter Visit Diagnoses Not on filedocumented in this encounter Care Teams Team MemberRelationshipSpecialtyStart DateEnd Date Michelle Pabon MD [address] [place] [address] PCP - GeneralFamily Medicine03/25/24documented as of this encounter
--- OUTSIDE RECORDS SUMMARY | 2025-07-04 10:33 | XMS_ITS | Clinical Summary ---
Author Organization [facility] Address [address] [place] [address] Care Team Providers Care Manager Of Administration Name Role Phone Michelle Pabon MD Primary Care Provider [phone] Allergies No known active allergies Medications MedicationSigDispense QuantityRefillsLast FilledStart DateEnd DateStatus 27-1 MG tablet Take 1 tablet by mouth DailyActive ondansetron ODT (Zofran-ODT) 4 MG disintegrating tablet Take 4 mg by mouth every 8 (eight) hours if needed for pfyysq7002/22/2025 06/28/2025Discontinued metoclopramide (Reglan) 10 MG tablet Indications:Nausea and vomiting during ([facility])Take 1 tablet (10 mg) by mouth [...] 30 mg by mouth DailyDiscontinued Encounters DateTypeDepartmentCare RmcfRegpyfjwnpn73/17/2025 3:30 PM ESTRoutine [facility] [address] [address] Patricia Roy NP Third trimester ([facility]); 31 weeks gestation of ([facility]); Hypertension during in third trimester, unspecified hypertension in type ([facility])06/28/2025linisync Result Encounter NOMS External Department Unsolicited Patricia Roy NP 06/28/2025amboo flowsheet [facility] [address] [place] [address] Patricia Roy NP 5Clinisync Result Encounter NOMS External Department Unsolicited Abad Canchola DO 06/21/2025 3:40 PM ESTRoutine [facility]SEPH[facility] [address] [place] [address] Abad Canchola DO 28 weeks gestation of ([facility]); Third trimester ([facility]); induced hypertension, antepartum ([facility])06/21/2025 3:00 PM EST Ancillary Procedure [facility] OBDAVIDN [address] [place] [phone] size inconsistent with dates ([facility])06/08/2025 8:30 AM EDTRoutine [facility] PATELN [address] [place] [phone] Shagufta Perkins PA size inconsistent with dates ([facility]) (Primary Dx); 28 weeks gestation of ([facility]); Second trimester ([facility])06/08/2025amboo flowsheet [facility] [address] [place] [address] Shagufta Perkins PA 05/12/2025 8:30 AM EDTRoutine [facility] PATELN [address] [place] [address] Patricia Roy NP 24 weeks gestation of ([facility]); Second trimester ([facility]); Diabetes mellitus klktpoqko08/01/2025amboo flowsheet [facility] [address] [place] [address] Patricia Roy NP 05/10/2025Telephone [facility] [address] [place] [phone] Nighat Moyer, [place] 04/19/2025Results Follow-Up [facility] [address] [place] [address] RileyingerEdda, ONLINE MARKETING MANAGER IGP,APTIMA HPV,AGE GDLN04/19/2025Orders Only [facility] [address] [place] [address] Cris Gross, CORI 04/16/2025bstract [facility] [address] [place] [address] Nighat Moyer, [place] 04/16/2025Telephone [facility] [address] [place] [address] João Nighat, [place] 04/15/2025 10:10 AM EDTRoutine [facility] [address] [place] [address] Abad Canchola, Second trimester ([facility]); 21 weeks gestation of ([facility]); Nausea and vomiting during ([facility]); Vaginal discharge during , antepartum ([facility])5Clinisync Result Encounter NOMS External Department Unsolicited Abad Canchola, 5Bamboo flowsheet [facility] [address] [place] [address] Abad Canchola, 04/08/2025 8:00 AM EDTAncillary Procedure [facility] [address] [place] [phone] from Last 3 Months Family History Medical HistoryRelationNameCommentsHyperlipidemiaFatherHypertensionFather RelationNameStatusCommentsFatherAliveMotherAlive Social History Tobacco UseTypesPacks/DayYears UsedDateSmoking Tobacco: Never Tobacco Cessation:Counseling Given: Not Answered Alcohol UseStandard Drinks/WeekCommentsNever0 (1 standard drink = 0.6 oz pure alcohol)Estimated Date of SaftrggeTuwdvjsxFxa46/15/2026Based on last menstrual period of 11/19/2024 (Approximate)Sex and Gender InformationValueDate RecordedSex Assigned at BirthNot on fileLegal NhuGnwipo43/15/2023 10:09 PM EDT Gender IdentityNot on fileSexual OrientationNot on file Last Filed Vital Signs Vital SignReadingTime TakenCommentsBlood Cgbdywoh576/9406/28/2025 3:29 PM EST Pulse--Temperature--Respiratory Rate--Oxygen Saturation--Inhaled Oxygen Concentration--Lhpvst633 kg (223 lb)06/28/2025 3:29 PM BXJEifclt069.6 cm (5' 6 ) 09/24/2019 12:00 PM ESTBody Mass Index35.9909/24/2019 12:00 PM EST Plan of Treatment DateTypeDepartmentCare Team (Latest Contact Info)Zhjncfdmlsr35/25/2025 10:40 AM ESTRoutine [facility] [address] [place] [phone] Abad Canchola, [address] [place], [place] [phone] Health MaintenanceDue DateLast DoneCommentsCOVID-19 Vaccine ( season) /12/2020, 08/19/2020Influenza Vaccine (#1)510/10/2021, 06/03/2020Pneumococcal Vaccine: Pediatrics (0 to 5 Years) and At-Risk Patients (6 to 64 Years)Aged OutNo longer eligible based on patient's age to complete this topic Procedures Procedure NamePriorityDate/TimeAssociated DiagnosisCommentsUS OB BPP W NON-YEWBFA7106/28/2025 5:27 PM EST POCT URINALYSIS AYDKTBQJXeoijzy73/17/2025 4:05 PM EST Third trimester ([facility]) ALL DTLUkhvsmo66/12/2025 4:19 PM EST CCF GVOMuqxing26/12/2025 4:19 PM EST ALL URIC QWHRTnmycsl45/12/2025 4:19 PM EST TBH ZJSDZLMXLUSimwovw75/12/2025 4:19 PM EST ALL MBLZhrkxhe50/12/2025 4:19 PM EST ALL CBC WITH AUTO EBDDJdgxtcl09/12/2025 4:19 PM EST CCF FEATYrnpiqs70/12/2025 4:19 PM EST SRMCOH PROTHROMBIN TIME INR W/O CWENNfkxjqw44/12/2025 4:19 PM EST TBH URINE T PROTEIN CREAT ZNADIXmetkah52/12/2025 4:10 PM EST TBH TOTAL PROTEIN 24 HOUR OREJSVvjsgpu52/12/2025 7:45 AM EST POCT URINALYSIS BOWAHTBVByincle05/10/2025 3:47 PM EST 28 weeks gestation of ([facility]) Third trimester ([facility]) US OB FOLLOW UP TRANSABDOMINAL RWCGLNMTUuovcex06/10/2025 3:24 PM EST size inconsistent with dates ([facility]) POCT URINALYSIS QFXHOLXMJtuplot36/28/2025 8:51 AM EDT 28 weeks gestation of ([facility]) Second trimester ([facility]) POCT URINALYSIS PLSEALYPVzggswf99/01/2025 8:42 AM EDT 24 weeks gestation of ([facility]) RECURRENT VAGINITIS (HTRX)Ifcipsj6504/15/2025 11:40 AM EDT IGP,APTIMA HPV,AGE LLBWTctqqgq99/04/2025 10:42 AM EDT PAP ZMBVWGidutns42/04/2025 12:00 AM EDTUS OB 14+ WEEKS ANATOMY SCANRoutine 04/08/2025 9:16 AM EDT Screening, , for anatomic survey ([facility]) from Last 3 Months Results * US OB BPP W NON-STRESS (06/28/2025 5:27 PM EST)Anatomical Region LateralityModalityOtherSpecimen (Source)Anatomical Location / Laterality Collection Method / VolumeCollection TimeReceived Time06/28/2025 5:27 PM EST Narrative 06/28/2025 5:29 PM EST [facility] ?[address] ? [place] [address] ? Ultrasound Report ? Signed ? Patient: YENIFER TEMPLETON ?MR#: [id number] ?? : 2000 ?Acct:[id number] ?? Age/Sex: 24 / F ?ADM Date: ?? Loc: [facility] ??253-1 ? Attending Dr: Abad Canchola D.O. ? Ordering Physician: Patricia Roy ?? Date of Service: 06/28/25 ?? Procedure(s): US OB BPP w non-stress ?? Accession Number(s): [id number] ? cc: Michelle Pabon M.D.; Patricia Roy ? [facility] ? [address] ? [place] [address] ? Patient Name: ?? YENIFER TEMPLETON ? MRN: [id number] ? date: 2000 ?Sex: F ?? Assigned Patient Location: [facility] ?? Current Patient Location: [facility] ?? Accession/Order Number: [id number] ?? Exam Date: 06/28/2025 ??16:13 ?Report Date: [...] M.D. ??06/28/2025 5:27 PM ? Dictation Location: [facility]20 ? Electronically authenticated by: [id number] ??Y ?? Date: 06/28/2025 ??17:27 ? Dictated By: ?Ronan Chance D.O. ? Signed By: ?06/28/259 ? DD/ 1727 ? TD/TT: ? [employer]: Procedure Note Radiology, Radiologist, - 06/28/2025 [place] [address] Ultrasound Report Signed Patient: YENIFER TEMPLETON SMR#: [id number] : 2000Acct:[id number] Age/Sex: Date: Loc: [facility] 253-[address]: Abad Canchola D.O. Ordering Physician: Patricia Roy Date of Service: 06/28/25 Procedure(s): US OB BPP w non-stress Accession Number(s): [id number] cc: Michelle Pabon M.D.; Patricia Roy [address] [address] Patient Name: YENIFER TEMPLETON MRN: [id number] date: 2000 Sex: F Assigned Patient Location: [facility] Current Patient Location: [facility] Accession/Order Number: [id number] Exam Date: 06/28/2025 16:13 Report Date: 06/28/2025 [...] Chance M.D. 06/28/2025 5:27 PM Dictation Location: [employer] Electronically authenticated by: [id number] Y Date: : Dictated By: Ronan Chance D.O. Signed By:06/28/251728 DD/ 26 TD/TT: [employer]: Authorizing ProviderResult TypeResult Angeline Roy NPCLINISYNC IMAGING [...] Location / LateralityCollection Method / VolumeCollection TimeReceived MyhgHxuqn32/17/2025 4:05 PM EST Narrative Authorizing ProviderResult TypeResult Angeline Roy NPPOINT OF CARE TEST ENTER/EDIT ORDERABLESFinal Result * (ABNORMAL) TBH CREATININE (06/23/2025 4:19 PM EST)ComponentValueRef RangeTest MethodAnalysis TimePerformed AtPathologist SignatureCREATININE0.52(L)0.55 - 1.02 mg/dLTBHTBH EGFR-AF CUBAN>60>=60 mL/min/1.73m 2TBHTBH EGFR-NON AF CUBAN>60>=60 mL/min/1.73m 2TBHSpecimen (Source)Anatomical Location / LateralityCollection Method / VolumeCollection TimeReceived Time06/23/2025 4:19 PM EST06/23/2025 4:20 PM EST Narrative CLINISYNC - 06/23/2025 5:17 PM EST Authorizing ProviderResult TypeResult StatusCorey Jesika DOCLINISYNCFinal Result Performing OrganizationAddressCity/State/ZIP CodePhone Number [facility] * SRMCOH PROTHROMBIN TIME INR W/O [...] Result Performing OrganizationAddressCity/State/ZIP CodePhone Number [facility] * (ABNORMAL) CCF AST (06/23/2025 4:19 [...] PM EST)ComponentValueRef RangeTest MethodAnalysis TimePerformed AtPathologist SignatureLACTATE XTLBRGUMGTFXK82705 - 234 U/LTBH Specimen (Source)Anatomical Location / [...] 35.2 g/dLTBHTBH RDW12.811.0 - 15.0 %TBHTBH PLT 571595 - 450 10 3/uLTBHTBH MPV10.79.5 - 13.5 [...] RangeTest MethodAnalysis TimePerformed AtPathologist SignatureTOTAL PROTEIN URINE CTNFTM90.0(H)<=11.9 mg/dLTBHCREATININE URINE AIPYQH652.5320.00 - 300.00 mg/dLTBHPROTEIN CREATININE RATIO URINE0.09TBHSpecimen (Source) Anatomical Location / LateralityCollection Method / VolumeCollection Time Received Time06/23/2025 4:10 PM EST06/23/2025 4:21 PM EST Narrative CLINISYNC - 06/24/2025 12:35 PM EST Authorizing ProviderResult TypeResult StatusCorey [facility] DOCLINISYNCFinal Result Performing OrganizationAddressCity/State/ZIP CodePhone Number [place] * (ABNORMAL) TBH TOTAL PROTEIN 24 HOUR URINE (06/23/2025 7:45 AM EST)Component ValueRef RangeTest MethodAnalysis TimePerformed AtPathologist SignatureTOTAL PROTEIN URINE EDUBQV11.2(H)<=11.9 mg/dLTBHTOTAL VOLUME 24 HOUR URINE1,780 mL/24hrTBHTBH TOTAL PROTEIN 24 HOUR KFYRR269.2(H)<=149.1 mg/24hrTBHSpecimen (Source)Anatomical Location / LateralityCollection Method / [...] BY: Miguel Thompson MD Authorizing ProviderResult TypeResult StatusCooper University Hospital [facility] US PROCEDURESFinal Result * (ABNORMAL) RECURRENT VAGINITIS (HTRX) (04/15/2025 11:40 AM EDT)ComponentValue Ref RangeTest MethodAnalysis TimePerformed AtPathologist SignatureATOPOBIUM VIWZCBE222.961 - .9 ppm04/16/2025 6:40 AM EDTHealth[facility] ATOPOBIUM VAGINAENot Iqfzvujm74.961 - .9 ppm04/16/2025 6:40 AM EDT [facility] HospitalBVAB 2,3 (BACTERIAL VAGINOSIS ASSOCIATED BACTERIA 2, 3); MOBILUNCUS TEP408.961 - 24.689 ppm04/16/2025 6:40 AM EDTHealthTrackRx at LabPortBVAB 2,3 (BACTERIAL VAGINOSIS ASSOCIATED BACTERIA 2, 3); MOBILUNCUS SPP Not Qcepzpxt91.961 - 24.689 ppm04/16/2025 6:40 AM EDTHealthTrackRx at LabPort ROSALBA ALBICANS, PARAPSILOSIS, YYFUVEQMLG02.886(A)23.000 - 30.347 ppm 04/16/2025 6:40 AM EDTHealthTrackRx at LabPortCANDIDA ALBICANS, PARAPSILOSIS, TROPICALISDetected(A)23.000 - 30.347 ppm04/16/2025 6:40 AM EDTHealthTrackRx at LabPortCANDIDA JCKMJHML893.000 - 31.618 ppm04/16/2025 6:40 AM EDTHealthTrackRx at LabPortCANDIDA GLABRATANot Ioinxocy54.000 - 31.618 ppm04/16/2025 6:40 AM EDTHealthTrackRx at LabPortCANDIDA PKOVWH608.000 - 30.873 ppm04/16/2025 6:40 AM EDTHealthTrackRx at LabPortCANDIDA KRUSEINot Aexgotoy33.000 - 30.873 ppm 04/16/2025 6:40 AM EDTHealthTrackRx at LabPortCHLAMYDIA IAYQYFHTTEO372.000 - 31.586 ppm04/16/2025 6:40 AM EDTHealthTrackRx at LabPortCHLAMYDIA TRACHOMATIS Not Jkrjxqgx02.000 - 31.586 ppm04/16/2025 6:40 AM EDTHealthTrackRx at [facility] GARDNERELLA OWFSVXYGM76.384(A)19.961 - 24.689 ppm04/16/2025 6:40 AM EDT [facility] HospitalGARDNERELLA VAGINALISDetected(A)19.961 - 24.689 ppm 04/16/2025 6:40 AM EDTHealthTrackRx at [facility] HospitalPortMEGASPHAERA (TYPES 1, 2)019.961 - 24.689 ppm04/16/2025 6:40 AM EDTHealthTrackRx at LabPortMEGASPHAERA (TYPES 1, 2)Not Xhdzlcvt46.961 - 24.689 ppm04/16/2025 6:40 AM EDTHealthTrackRx at LabPortNEISSERIA VMCPDABSQKU374.000 - 32.587 ppm04/16/2025 6:40 AM EDT [facility] HospitalNEISSERIA GONORRHOEAENot Pfrpyfuh16.000 - 32.587 ppm 04/16/2025 6:40 AM EDTHealthTrackRx at LabPortTRICHOMONAS ITKHONXHT382.000 - 31.995 ppm04/16/2025 6:40 AM EDTHealthTrackRx at [facility]Franc[facility]oresvilleTRICHOMONAS VAGINALIS Not Frprdxui79.000 - 31.995 ppm04/16/2025 6:40 AM EDT[facility] MYCOPLASMA ZSCJVPWDPB877.961 - 24.689 ppm04/16/2025 6:40 AM EDTHealthTrackRx at Doctors HospitalMYCOPLASMA GENITALIUMNot Mxghxmfa89.961 - 24.689 ppm04/16/2025 6:40 AM EDTHealthTrackRx at LabPortSpecimen (Source)Anatomical Location / LateralityCollection Method / VolumeCollection TimeReceived TimeTissue 04/15/2025 11:40 AM EDT04/16/2025 1:52 AM EDT Narrative Authorizing ProviderResult TypeResult StatusCorey Jesika DOLAB BLOOD ORDERABLES Final ResultPerforming OrganizationAddressCity/State/ZIP CodePhone Number [facility] [address] [address] * IGP,APTIMA HPV,AGE GDLN (04/15/2025 10:42 AM [...] at: 01 =G ?[facility] ?? [address] [place] ??[phone] ?? Beverly Nguyen MD, IGP, RFX APTIMA HPV ASCUNote.TBHComment: ?? TESTS ? RESULT ??FLAG ??UNITS ?REF RANGE ??LAB DIAGNOSIS: ?02 ?? NEGATIVE FOR INTRAEPITHELIAL LESION OR MALIGNANCY. ?? FUNGAL ORGANISMS MORPHOLOGICALLY CONSISTENT WITH ROSALBA SPECIES ARE ?? PRESENT. Specimen adequacy: ?02 ?? Satisfactory for evaluation. ??Endocervical and/or squamous metaplastic ?? cells (endocervical component) are present. Performed by: ? 02 ?? Sonia Beckham Brass Reclaimer (ASCP) . ? 02 Note: ? Note [...] High,A-Abnormal,AA-Critical Abnormal Performed at: 02 WB ?[facility] ?? [address] [place], [place] ??[address] ?? Beverly Nguyen MD, Performed at: ??=G - [facility] [address] ??[id number] Fashion Model: Beverly Nguyen MD, Phone: ??[phone] Performed at: ??WB - [facility] [address] ??[id number] Fashion Model: Beverly Nguyen MD, Phone: ??[phone] Specimen (Source)Anatomical Location / LateralityCollection Method / Volume Collection TimeReceived Time04/15/2025 10:42 AM EDT04/15/2025 2:49 PM EDT Narrative CLINISYNC - 04/19/2025 9:09 AM EDT [facility]OCERV[facility] Authorizing ProviderResult TypeResult StatusCorey Jesika DOLAB BLOOD ORDERABLES Final ResultPerforming OrganizationAddressCity/[facility] CodePhone Number [facility] * Pap Smear (04/15/2025 12:00 AM [...] Miguel Thompson MD Authorizing ProviderResult TypeResult StatusAmy [facility] US PROCEDURES Edited Result - Final from Last 3 Months Insurance * Guarantor: Yenifer Templeton TypeRelation to PatientDate of BirthPhone Billing AddressPersonal/WkzgwmJucl31/09/[address] [place] [address] * Guarantor: Yenifer Templeton TypeRelation to PatientDate of BirthPhone Billing AddressPersonal/HgtuxsXibt61/09/[address] [place] [address] Care Teams Team MemberRelationshipSpecialtyStart DateEnd Date Michelle Pabon MD [address] [place] [address] PCP - GeneralFamily Medicine03/25/24
--- OUTSIDE RECORDS SUMMARY | 2025-07-04 10:33 | XMS_ITS | Encounter Summary ---
Author Organization [facility] Address [address] [place] [address] Care Team Providers Care Geropsychologist Name Role Phone Michelle Pabon MD Primary Care Provider [phone] Encounter Details DateTypeDepartmentCare Team (Latest Contact Info)Gxtehcrbbsa39/17/2025amboo flowsheet [facility] [address] [place] [address] Patricia Roy, AUTOMOTIVE TEACHER [address] [place] [address] Social History Tobacco UseTypesPacks/DayYears UsedDateSmoking Tobacco: NeverAlcohol UseStandard Drinks/WeekCommentsNever0 (1 standard drink = 0.6 oz pure alcohol) Estimated Date of WpamcqtwHmbosxwsGtz32/15/2026Based on last menstrual period of 11/19/2024 (Approximate)Sex and Gender InformationValueDate RecordedSex Assigned at BirthNot on fileLegal KrsFmzzti23/15/2023 10:09 PM EDTGender IdentityNot on fileSexual OrientationNot on filedocumented as of this encounter Plan of Treatment DateTypeDepartmentCare Team (Latest Contact Info)Dvguuraqacd74/25/2025 10:40 AM ESTRoutine [facility] [address] [place] [address] Abad Canchola DO [address] [place], [facility]11 documented as of this encounter Visit Diagnoses Not on filedocumented in this encounter Care Teams Team MemberRelationshipSpecialtyStart DateEnd Date Michelle Pabon MD [address] [place] [phone] PCP - GeneralFamily Medicine03/25/24documented as of this encounter
--- OUTSIDE RECORDS SUMMARY | 2025-07-04 10:33 | XMS_ITS | Encounter Summary ---
Author Organization [facility] Address [address] [place] [address] Care Team Providers Care Humanities Teacher Name Role Phone Michelle aPbon MD Primary Care Provider [phone] Encounter Details DateTypeDepartmentCare Team (Latest Contact Info)Ebqxeqbspqb84/17/2025linisync Result Encounter NOMS External Department Unsolicited Say Roy, OFFICE SECRETARY [address] [place] [address] Social History Tobacco UseTypesPacks/DayYears UsedDateSmoking Tobacco: NeverAlcohol UseStandard Drinks/WeekCommentsNever0 (1 standard drink = 0.6 oz pure alcohol) Estimated Date of RljsokxzMooklwqcWqz51/15/2026ased on last menstrual period of 11/19/2024 (Approximate)Sex and Gender InformationValueDate RecordedSex Assigned at BirthNot on fileLegal ZfsOunolq37/15/2023 10:09 PM EDTGender IdentityNot on fileSexual OrientationNot on filedocumented as of this encounter Plan of Treatment DateTypeDepartmentCare Team (Latest Contact Info)Chnknohirpy88/25/2025 10:40 AM ESTRoutine [facility] [address] [place] [address] Abad Canchola DO [address] [place], [place] [phone] documented as of this encounter Procedures Procedure NamePriorityDate/TimeAssociated DiagnosisCommentsUS OB BPP W NON-BMVVGZ9906/28/2025 5:27 PM EST documented in this encounter Results * US OB BPP W NON-STRESS (06/28/2025 5:27 PM EST)Anatomical Region LateralityModalityOtherSpecimen (Source)Anatomical Location / Laterality Collection Method / VolumeCollection TimeReceived Time06/28/2025 5:27 PM EST Narrative 06/28/2025 5:29 PM EST [facility] ?[address] ? [place] [address] ? Ultrasound Report ? Signed ? Patient: JARETH,MEREDITH S ?MR#: [id number] ?? : 2000 ?Acct:[id number] ?? Age/Sex: 24 / F ?ADM Date: ?? Loc: [facility] ??253-1 ? Attending Dr: Abad Canchola D.O. ? Ordering Physician: Say Roy ?? Date of Service: 06/28/25 ?? Procedure(s): US OB BPP w non-stress ?? Accession Number(s): [id number] ? cc: Michelle Pabon M.D.; Say Roy ? [facility] ? [address] ? [place] [address] ? Patient Name: ?? MEREDITH TEMPLETON ? MRN: [facility]:[id number] ? date: 2000 ?Sex: F ?? Assigned Patient Location: [facility] ?? Current Patient Location: [facility] ?? Accession/Order Number: [id number] ?? Exam Date: 06/28/2025 ??16:13 ?Report Date: [...] Dictation Location: [facility]-20 ? Electronically authenticated by: [id number] ??Y ?? Date: 06/28/2025 ??17:27 ? Dictated By: ?Ronan Chance D.O. ? Signed By: ?06/28/25 1729 ? DD/ ? TD/TT: ? [employer] Patrol Police Officer: Procedure Note Radiology, Radiologist, - 06/28/2025 [place] [address] Ultrasound Report Signed Patient: MEREDITH TEMPLETON SMR#: [id number] : 2000Acct:[id number] Age/Sex: FADM Date: Loc: [facility] 253-[address]: Abad Canchola D.O. Ordering Physician: Say Roy Date of Service: 06/28/25 Procedure(s): US OB BPP w non-stress Accession Number(s): [id number] cc: Michelle Pabon M.D.; Say Roy [address] [place] [address] Patient Name: MEREDITH TEMPLETON MRN: [id number] date: 2000 Sex: F Assigned Patient Location: [facility] Current Patient Location: [facility] Accession/Order Number: [id number] Exam Date: 06/28/2025 16:13 Report Date: 06/28/2025 [...] ultrasound biophysical profile Impression dictated by: Ronan Chacne M.D. 06/28/2025 5:27 PM Dictation Location: [place] [address] Electronically authenticated by: [id number] Y Date: 7:27 Dictated By: Ronan Chance D.O. Signed By:[id number] DD/ 26 TD/TT: [employer] Officer: Authorizing ProviderResult TypeResult StatusKrkylah Roy NPCLINISYNC IMAGING Final Result documented in this encounter Visit Diagnoses Not on filedocumented in this encounter Care Teams Team MemberRelationshipSpecialtyStart [place] [address] [place] [address] PCP - GeneralFamily Medicine03/25/24documented as of this encounter
[2025-07-04 10:52] VITALS: BP 122/79; PULSE 99
[2025-07-04 10:54] VITALS: BP 128/87; PULSE 100
[2025-07-04 10:55] LABS: Glucose Urine UA NEGATIVE (NEGATIVE)
[2025-07-04 11:36] LABS: Cast Seen? NONE SEEN #/LPF (NONE SEEN); Crystals Seen? None Seen #/HPF (None Seen)
[2025-07-04 11:37] LABS: Urine Culture Indicated YES-FRMC
== END 2025-07-04 12:00 | disposition home or self-care (01) ==
PROVIDERS: Admitting Provider Obstetrics & Gynecology Gynecology; PCP Family Medicine; Visit Provider Obstetrics & Gynecology Gynecology
DX: O99.891 Other specified diseases and conditions complicating pregnancy (principal); R42 Dizziness and giddiness; Z3A.32 32 weeks gestation of pregnancy
CPT/HCPCS: 81001; 87086; G0378; G0379

== ENCOUNTER 2025-07-09 14:53 | Outpatient (OUT) | payer OTHER, SELFPAY ==
--- OUTSIDE RECORDS SUMMARY | 2025-06-28 15:30 | XMS_ITS | Encounter Summary ---
Author Organization [facility] Address [address] [place] [address] Care Team Providers Care Electronic Data Interchange Specialist Name Role Phone Michelle Pabon MD Primary Care Provider [phone] Reason for Visit * ReasonCommentsRoutine Visit Encounter Details DateTypeDepartmentCare Team (Latest Contact Info)Diwakoojnpe53/17/2025 3:30 PM ESTRoutine [facility] [address] [place] [address] Patricia Roy, MEDICAL RECORDS RECEPTIONIST [address] [place] [address] Third trimester ([facility]); 31 weeks gestation of ([facility]); Hypertension during in third trimester, unspecified hypertension in type ([facility]) Social History Tobacco UseTypesPacks/DayYears UsedDateSmoking Tobacco: NeverAlcohol UseStandard Drinks/WeekCommentsNever0 (1 standard drink = 0.6 oz pure alcohol) Estimated Date of IxgcinmsBwbephbzApm39/15/2026Based on last menstrual period of 11/19/2024 (Approximate)Sex and Gender InformationValueDate RecordedSex Assigned at BirthNot on fileLegal TomWximma99/15/2023 10:09 PM EDTGender IdentityNot on fileSexual OrientationNot on filedocumented as of this encounter Last Filed Vital Signs Vital SignReadingTime TakenCommentsBlood Bvbfzmrx329/9406/28/2025 3:29 PM EST Pulse--Temperature--Respiratory Rate--Oxygen Saturation--Inhaled Oxygen Concentration--Rlfiru184 kg (223 lb)06/28/2025 3:29 PM ESTHeight--Body Mass Index35.9902 12:00 PM ESTdocumented in this encounter Progress Notes * Patricia Roy NP - 06/28/2025 3:30 PM EST Reason for Appointment: Patient ID: Yenifer Viveros is a 24 y.o. female who presents for Routine Visit Patient presents today for Return OB appointment. MEDICATIONS Current Outpatient Medications Medication Instructions 27-1 MG tablet 1 tablet, Daily ALLERGIES [...] nursing note reviewed. Exam conducted with a beef killer present. Vitals: Estimated body mass index is 35.99 kg/m?? as calculated from the following: Height as of 09/24/19: 5' 6 . Weight as of this encounter: 223 lb. BP: (!) 140/94 Patient's last menstrual period was 11/19/2024 (approximate). Assessment/Plan ICD-10-CM 1. Third trimester ([facility]) Z34.93 POCT urinalysis dipstick manually resulted 2. 31 weeks gestation of ([facility]) Z3A.31 3. Hypertension during in third trimester, unspecified hypertension in type ([facility]) O16.3 US biophysical profile w non stress test Assessment/Plan Return OB: Patient presents today for a routine obstetrics appointment. Patient is currently 31w4d . Patient states has complaints of being tired with complaints of elevated blood pressure at home and complaints of a headache, denies any visual acuity changes. Patient has verbalized frequent move ment. labor precautions was discussed/given and patient was instructed to perform kick counts three times a day. Orders Placed This Encounter Procedures US biophysical profile w non stress test POCT urinalysis dipstick manually resulted Follow Up: BP today is 146/94. I spoke with labor and delivery today and patient will be sent over for NST/BPP. Pt is scheduled next week for a follow up appointment with Dr. Canchola. Documented by Patricia Roy NP on behalf of: Patricia Roy NP documented in this encounter Plan of Treatment DateTypeDepartmentCare Team (Latest Contact Info)Gnfzsfijjwg61/09/2025 8:50 AM ESTRoutine [facility] [address] [place] [address] Patricia Roy NP [address] [place] [address] NameTypePriorityAssociated DiagnosesOrder ScheduleUS biophysical profile w non stress testImagingRoutine Hypertension during in third trimester, unspecified hypertension in type ([facility]) Expected: 06/28/2025 (Approximate), Expires: 12/26/2025documented as of this encounter Procedures Procedure NamePriorityDate/TimeAssociated DiagnosisCommentsPOCT URINALYSIS NSBLXCNFMpzoekt42/17/2025 4:05 PM EST Third trimester ([facility]) documented in this encounter Results * POCT urinalysis dipstick manually resulted (06/28/2025 4:05 PM EST)Component ValueRef RangeTest MethodAnalysis TimePerformed AtPathologist SignatureColor, UAYellowClarity, UAClearGlucose, UANegativeNegative - 2000(110) ++++ mg/dL Bilirubin, UANegativeNegative - 4(70) +++ mg/dLKetones, UANegativeNegative - 160(16) ++++ mg/dLSpec Grav, UA1.0251 - 1.03Blood, UANegativeNegative - 50 Randall/mcLpH, UA6.05 - 9Protein, UANegativeNegative - 2000(20) ++++ mg/dL Urobilinogen, UA0.20.2 - 12 mg/dLLeukocytes, UANegativeNegative - 500+++ Johnson/mcLNitrite, UANegativeNegative - PositiveSpecimen (Source)Anatomical Location / LateralityCollection Method / VolumeCollection TimeReceived Time Urine06/28/2025 4:05 PM EST Narrative Authorizing ProviderResult TypeResult StatusKrkylah Friedmanly NPPOINT OF CARE TEST ENTER/EDIT ORDERABLESFinal Result documented in this encounter Visit Diagnoses Diagnosis Third trimester ([facility]) state, incidental 31 weeks gestation of ([facility]) Hypertension during in third trimester, unspecified hypertension in type ([facility]) documented in this encounter Care Teams Team MemberRelationshipSpecialtyStart DateEnd Date Michelle Pabon MD [address] [place] [address] PCP - GeneralFamily Medicine03/25/24documented as of this encounter
--- OUTSIDE RECORDS SUMMARY | 2025-07-04 19:05 | XMS_ITS | Continuity of Care Document ---
Author Organization [facility] Address [address] [place] [address] Phone Care Team Providers Care Precinct Police Captain Name Role Phone Michelle Pabon MD Primary Care Provider Abad Canchola DO Attending Provider Patricia Roy APRN Attending Provider Suzi Sutton MD Attending Provider Care Teams Patient Care Team Team Status: Active Member Role/Relationship Status Dates Michelle Pabon MD Primary Care Provider Active Visit Care Team Team Status: Active Member Role/Relationship Status Dates Michelle Pabon MD Primary Care Provider Active Start: April 15, 2025 Risa Verde ProviderActiveStart: April 15, 2025 Visit Care Team Team Status: Active Member Role/Relationship Status Dates Michelle Pabon MD Primary Care Provider Active Start: May 26, 2025 Patricia Roy APRN PAYABLE REPRESENTATIVE-CAttending ProviderActiveStart: May 26, 2025 Visit Care Team Team Status: Active Member Role/Relationship Status Dates Michelle Pabon MD Primary Care Provider Active Start: June 23, 2025 Risa Verde ProviderActiveStart: June 23, 2025 Patient Care Team Team Status: Active Member Role/Relationship Status Dates Michelle Pabon MD Primary Care Provider Active Start: July 04, 2025 Talya Howardending ProviderActiveStart: July 04, 2025 Allergies, Adverse Reactions, Alerts Allergen Type Severity Reaction Last Updated Verified Status No Known Allergies Allergy Unknown October 20, 2024 1:59pmYesActive Social History Smoking Status Status Start Date End Date Date of Observa tion Never smoked tobacco (finding) December 05, 2023 3:30pm Observation Status Observation Response Date of Response Legal Sex Female (finding) [facility] 2000 Family History Relationship Condition Age at Onset Recorded Date/T terra paternal grandfather Malignant neoplasm Unknown paternal grandmotherHeart diseaseUnknownMyocardial infarctionUnknownfather HypertensionUnknownCerebrovascular accident (CVA)Unknown Problems Active Problems Problem Diagnosis/Recorded Date Onset Date Stat us Benign essential HTN March 02, 2024 8:40am Unknown Active Wellness examination October 20, 2024 3:16pm Unknown Active Class 2 obesity with body ma ss index (BMI) of 35 to 39.9 without comorbidity March 02, 2024 8:39am Unknown Active Anxiety and depression December 05, 2023 2:26pm Unknown Active Class 2 obesity with body ma ss index (BMI) of 35.0 to 35.9 in adult June 22, 2024 4:37pm Unknown Ac tive Medications Medication Status Dose Units Route Directions Qty Days Refills S tart Date Stop Date End Date Reason(s) Instructions Adherence Bupropion Hcl 150 mg tablet extended release 24 hr Discontinued 150 MG PO Every morning 30 3May 2023 11:59amJuly 2023 10:44amBupropion Hcl 150 mg tablet extended release 24 lkWsousvfjjvxd296JITRUtrid rfurjeo367Ixmk 2023 10:44am May 01, 2024 9:37amLosartan 25 mg awbrumUjklyvtecruc73PCSVZlsox931Gtivef 2023 11:10amNovember 2023 4:33pmSemaglutide (Weight Loss) (Wegovy) 0.25 mg/0.5 mL pen injectorDiscontinued0.25MGSUBCUTevery torr37Hxhlhgffp 2023 10:15amOctober 2023 10:12amadminister weeks 1 through 4 of therapy Bupropion Hcl 150 mg tablet extended release 24 vlTbfqitgylssg083JLWMIgtid mdrpabv746Uxxgwszwk 2023 9:37amNovember 2023 7:03amSemaglutide (Weight Loss) 0.5 mg/0.5 mL pen injectorDiscontinued0.5MGSUBCUTevery weekMay 26, 2024 10:12amMarch 2024 2:00pmadminister weeks 1 through 4 of therapyLosartan 25 mg tabletDiscontinued0.ROUTE.EEOQRJD305Iwwhrjrp 2023 4:33pmMarch 2024 2:15pmTAKE 1 TABLET BY MOUTH DAILYBupropion Hcl 150 mg tablet extended release 24 vgYludebbfjvyk953WWMZUtzal wrxpooi691Jmdjcshp 2023 7:03amJanuary 2024 12:58pmBupropion Hcl 150 mg tablet extended release 24 voNsvjtq810XUMIVftru eejsnpr025Fstfwku 2024 12:58pmUnknown Duloxetine (Cymbalta) 60 mg capsule,delayed release(DR/EC)Purclvsiwlcp73IFSS DailyApril 2023 11:00pmApril 2023 3:15pmNorgestimate-Ethinyl Estradiol 0.18/0.215/0.25 mg-35 mcg (28) tovuewNtktmxgydfbq8INZGUIqksfUmoki 2023 11:00pmMarch 2024 1:59pmDuloxetine (Cymbalta) 30 mg capsule,delayed release(DR/EC)Kxasbgpxlinl08HACNVwpks33216Hhhjm 2023 11:00pmMay 2023 12:01pmBupropion Hcl 150 mg tablet extended release 24 hr Hyksvjtaaxii892KXTJRjqly wlcxatw288Kpriy 2023 11:00pmMay 2023 11:59amNifedipine 30 mg tablet extended vargyjtCbjsprpqyoot62HGFHYuylp000Ojnul 2024 11:00pmApril 2024 8:08amLosartan 25 mg ttsiorQtatqroqqurh22WVLE Ulqpz295Vbqi 2023 11:00pmAugust 2023 11:10amSemaglutide (Weight Loss) (Wegovy) 0.25 mg/0.5 mL pen injectorDiscontinued0.25MGSUBCUTevery February 27, 2024 11:00pmSept2023 10:15amadminister weeks 1 through 4 of therapy Relevant Diagnostic Tests and/or Laboratory Data Laboratory Results Test Collection Date/Time Result Date/Time Result Interpretation Reference Range Result Comment Performing Site Reference Lab Test Patient Age April 15, 2025 9:42am April 15, 2025 9:42am Note .TESTS RESULT FLAG UNITS REF RANGE LAB Clinician Provided Cytology Information Source.............[facility] Other.............. No.of containers..01 ThinPrep VialAge Algo ACOG Millie... FLAG LEGEND: L-Low Normal,H-High Normal,LL-Alert Low,HH-Alert High <-Panic Low,>- Panic High,A-Abnormal,AA-Critical Abnormal Performed at:01 [address] [address] Beverly Nguyen MD, Dttbdxh 1 HourOctober 2024 6:54amOctober 2024 6:22hp729 mg/dL<130Basophils # (Auto)May 26, 2025 6:54amOctober 2024 6:54am0.0 10 3/uL0.0-0.1Urine Random CreatinineJune 23, 2025 4:10pmJune 23, 2025 4:70nv874.53 mg/dL20.00-300.00Lactate Dehydrogenase June 23, 2025 4:19pmJune 23, 2025 4:55db374 U/C59-295Rdhgtnqxc Amino Transf (AST/SGOT)June 23, 2025 4:19pmJune 23, 2025 4:19pm9 U/LBelow low -89Pnhi AcidJune 23, 2025 4:19pmJune 23, 2025 4:19pm4.3 mg/dL2.6-6.0CreatinineJune 23, 2025 4:19pmJune 23, 2025 4:19pm0.52 mg/dLBelow low normal0.55-1.02Blood Urea NitrogenJune 23, 2025 4:19pm June 23, 2025 4:19pm6.0 mg/dLBelow low normal7.0-18.0Basophils # (Auto) June 23, 2025 4:19pmJune 23, 2025 4:19pm0.1 10 3/uL0.0-0.1Activated Partial Thromboplast TimeJune 23, 2025 4:19pmJune 23, 2025 4:19pm 26.1 sec22.3-36.2Prothromb Time International RatioNove2024 4:19pm June 23, 2025 4:19pm<0.93DESIRED INR:2.0-3.0 CONDITIONS NOT LISTED BELOW2.5-3.5 FOR PROSTHETIC HEART VALVE REPLACEMENT2.5-3.5 RECURRENT THROMBOSIS Urine Microscopic ReviewJuly 04, 2025 10:35amNovember 2024 10:35am YESHPV Genotype SourceSept2024 9:42amSept2024 9:42amNote. TESTS RESULT FLAG UNITS REF RANGE LAB DIAGNOSIS: 02 NEGATIVE FOR INTRAEPITHELIAL LESION OR MALIGNANCY. FUNGAL ORGANISMS MORPHOLOGICALLY CONSISTENT WITH ROSALBA SPECIES ARE PRESENT.Specimen adequacy: 02 Satisfactory for evaluation. Endocervical and/or squamous metaplastic cells (endocervical component) are present.Performed by: 02 Sonia Beckham, Oxygen Equipment Preparer ([facility]). 02Note: Note 02 The Pap smear is a screening test designed to aid in the detection of premalignant and malignant conditions of the uterine cervix. It is not a diagnostic procedure and should not be used as the sole means of detecting cervical cancer. Both false-positive and false-negative reports do occur.Test Methodology: Note 02 This liquid based ThinPrep(R) pap t est was screened with the use of an image guided system.. 02 The HPV DNA reflex criteria were not met with this specimen result therefore, no HPV testing was performed. FLAG LEGEND: L-Low Normal,H-High Normal,LL-Alert Low,HH-Alert High <-Panic Low,>- Panic High,A-Abnormal,AA-Critical Abnormal Performed at:[address] [address]VmhhyaBeverly Nguyen MD, Elfoqerod at: = - [facility] [address] [id number] Director: Beverly Nguyen MD, Phone: [phone] at: [facility] [id number] Director: Beverly Nguyen MD, Phone: [phone] (%) (Auto) May 26, 2025 6:54amOctober 2024 6:54am0.3 %0.2-2.0Urine Total Protein 24 HourNov2024 7:62ua160.2 mg/24hrAbove high normal<=149.1 Urine Protein/Creatinine RatioNovemb2024 4:10pmNov2024 4:10pm0.09Estimated GFR ()June 23, 2025 4:19pmJune 23, 2025 4:19pm>60>=60 mL/min/1.73m 2Basophils (%) (Auto)June 23, 2025 4:19pmNov2024 4:19pm0.4 %0.2-2.0Prothrombin TimeJune 23, 2025 4:19pmNov2024 4:19pm9.8 sec9.0-11.6Urine BilirubinNov2024 10:35amNovember 2024 10:35amNEGATIVENEGATIVEEosinophils # (Auto) May 26, 2025 6:54amOctober 2024 6:54am0.1 10 3/uL0.0-0.7Urine Total VolumeJune 23, 2025 7:18ij9427 mL/24hrUrine Random Total ProteinJune 23, 2025 4:10pmJune 23, 2025 4:10pm16.0 mg/dLAbove high normal<=11.9 Estimated GFR (Non- AmericanNov2024 4:19pmJune 23, 2025 4:19pm>60>=60 mL/min/1.73m 2Eosinophils # (Auto)June 23, 2025 4:19pm June 23, 2025 4:19pm0.1 10 3/uL0.0-0.7Urine Occult BloodNov2024 10:35amNovember 2024 10:35amNEGATIVENEGATIVEEosinophils (%) (Auto) May 26, 2025 6:54amOctober 2024 6:54am1.0 %0.9-7.0Eosinophils (%) (Auto)June 23, 2025 4:19pmNov2024 4:19pm1.1 %0.9-7.0Urine AppearanceNov2024 10:35amNovember 2024 10:35amCLEARCLEAR HematocritOctober 2024 6:54amOctober 2024 6:54am39.1 %36.0-48.0 HematocritNov2024 4:19pmNov2024 4:19pm38.9 %36.0-48.0 Urine ColorNov2024 10:35amNovember 2024 10:35amYELLOWYELLOW HemoglobinOctober 2024 6:54amOctober 2024 6:54am13.6 g/dL12.0-16.0 HemoglobinNov2024 4:19pmNov2024 4:19pm13.6 g/dL12.0-16.0 Urine Glucose (UA)July 04, 2025 10:35amNovember 2024 10:35amNEGATIVE mg/dLNEGATIVEImmature Granulocyte # (Auto)May 26, 2025 6:54amOctober 2024 6:54am0.06 10 3/uLAbove high normal0.00-0.03Immature Granulocyte # (Auto) June 23, 2025 4:19pmNov2024 4:19pm0.08 10 3/uLAbove high normal0.00-0.03Urine KetonesNov2024 10:35amNovember 2024 10:35amTRACE mg/dLAbnormal (applies to non-numeric results)NEGATIVEImmature Granulocyte % (Auto)May 26, 2025 6:54amOctober 2024 6:54am0.6 %Above high normal0.0-0.5Immature Granulocyte % (Auto)June 23, 2025 4:19pm June 23, 2025 4:19pm0.6 %Above high normal0.0-0.5Urine Leukocyte Esterase July 04, 2025 10:35amNovember 2024 10:35amSMALLAbnormal (applies to non-numeric results)NEGATIVELymphocytes # (Auto)May 26, 2025 6:54amOctober 2024 6:54am1.8 10 3/uL1.2-3.8Lymphocytes # (Auto)June 23, 2025 4:19pmNov2024 4:19pm2.2 10 3/uL1.2-3.8Urine NitriteNov2024 10:35amNovember 2024 10:35amNEGATIVENEGATIVELymphocytes (%) (Auto) May 26, 2025 6:54amOctober 2024 6:54am18.4 %Below low normal 20.5-60.0Lymphocytes (%) (Auto)June 23, 2025 4:19pmNov2024 4:19pm17.4 %Below low dathhp79.5-60.0Urine pHNovember 2024 10:35amNovember 2024 10:35am6.05.0-9.0Mean Corpuscular HemoglobinOct2024 6:54am May 26, 2025 6:54am30.0 pg26.7-34.0Mean Corpuscular HemoglobinNov2024 4:19pmNov2024 4:19pm30.3 pg26.7-34.0Urine ProteinNov2024 10:35amNovember 2024 10:35amTRACE mg/dLNEG/TRACEMean Corpuscular Hemoglobin ConcentOct2024 6:54amOct2024 6:54am 34.8 g/dL29.9-35.2Mean Corpuscular Hemoglobin ConcentNov2024 4:19pm June 23, 2025 4:19pm35.0 g/dL29.9-35.2Urine Specific GravityNov2024 10:35amNovemb2024 10:35am1.0201.005-1.025Mean Corpuscular Volume May 26, 2025 6:54amOct2024 6:54am86.3 fL81.0-99.0Mean Corpuscular VolumeJune 23, 2025 4:19pmNov2024 4:19pm86.6 fL 81.0-99.0Urine UrobilinogenNov2024 10:35amNovember 2024 10:35am1.0 EU/dL0.2-1.0Monocytes # (Auto)May 26, 2025 6:54amOctober 2024 6:54am0.5 10 3/uL0.3-0.8Monocytes # (Auto)June 23, 2025 4:19pm June 23, 2025 4:19pm0.8 10 3/uL0.3-0.8Monocytes (%) (Auto)May 26, 2025 6:54amOctober 2024 6:54am5.1 %1.7-12.0Monocytes (%) (Auto)June 23, 2025 4:pmNov2024 4:19pm6.0 %1.7-12.0Mean Platelet Volume May 26, 2025 6:54amOctober 2024 6:54am10.5 fL9.5-13.5Mean Platelet VolumeJune 23, 2025 4:pmNov2024 4:19pm10.7 fL9.5-13.5 Neutrophils # (Auto)May 26, 2025 6:54amOctober 2024 6:54am7.2 10 3/uLAbove high normal1.4-6.5Neutrophils # (Auto)June 23, 2025 4:19pm June 23, 2025 4:19pm9.4 10 3/uLAbove high normal1.4-6.5Neutrophils (%) (Auto)May 26, 2025 6:54amOctober 2024 6:54am74.6 %43.0-75.0 Neutrophils (%) (Auto)June 23, 2025 4:pmNov2024 4:19pm74.5 % 43.0-75.0Platelet CountOctober 2024 6:54amOctober 2024 6:32mx017 10 3/jR143-782Kkvpegmn CountNov2024 4:19pmNov2024 4:05eg346 10 3/tZ250-834Cof Blood CountOctober 2024 6:54amOctober 2024 6:54am 4.53 10 6/uL4.20-5.40Red Blood CountNov2024 4:19pmNov2024 4:19pm4.49 10 6/uL4.20-5.40Red Cell Distribution WidthOctober 2024 6:54amOctober 2024 6:54am12.6 %11.0-15.0Red Cell Distribution Width June 23, 2025 4:19pmNov2024 4:19pm12.8 %11.0-15.0Corrected White Blood CountOctober 2024 6:54amOctober 2024 6:54am9.7 10 3/uL 4.0-11.0Corrected White Blood CountNov2024 4:19pmNov2024 4:19pm12.6 10 3/uLAbove high normal4.0-11.0 Advance Directives Advance Directive Response Recorded Date/ Time Advance Directives No November 24, 024 8:39am Insurance Providers Guarantor Yenifer Hicks Address [address] [id number] Info.Home Phone: Payer Group Member ID Coverage Type Subscriber Relationship to Subscriber Effective Date Expiration Date MMO Id: [id number] S Jones Id: [id number] [address] [facility] [address] Home Phone: Email: [email or web address] HUFFMAN [id number] Wampler Id: [id number] [address] [id number] Home Phone: [facility] Medicaid Id: [id number] S Jones Id: [id number] [address] [id number] Home Phone: Email: [email or web address] Encounters Encounter Location(s) Arrival/Admit Date Discharge/Departure Date Discharge/Departure Disposition Provider(s) Non-patient / Non-visit -[facility] April 15, 2025 10:42am Abad Christian-patient / Ant-ysfkq-Nbnpl [employer]October 2024 7:54amAELSSANDRA Glover-patient / Wiu-abbox-Ddofg [employer]November 2024 4:19pmAbad Christian-patient / Sij-bgwcq-Cpdko [employer] [facility]November 2024 10:35amSuzi Sutton MD Plan of Treatment Future Tests Future scheduled test information is unavailable Pending Tests Test Name Ordered Date Scheduled Date Urine Culture July 04, 2025 10:35am Future Visits Future appointment information is unavailable Future Procedures Procedure Name Ordered Date Scheduled Date Urine Culture July 04, 2025 3:26pm Novem david 2024 10:35am Future Medications Future medication information is unavailable Patient Instructions Patient instructions are unavailable
--- OUTSIDE RECORDS SUMMARY | 2025-07-06 10:40 | XMS_ITS | Encounter Summary ---
Author Organization [facility] Address [address] [place] [address] Care Team Providers Care Fire Eater Name Role Phone Michelle Pabon MD Primary Care Provider [phone] Reason for Visit * ReasonCommentsRoutine Visit Encounter Details DateTypeDepartmentCare Team (Latest Contact Info)Ssfvfmhttby50/25/2025 10:40 AM ESTRoutine [facility] [address] [place] [id number] Abad Canchola DO [address] [place], [facility]11 Third trimester ([facility]); 32 weeks gestation of ([facility]) Social History Tobacco UseTypesPacks/DayYears UsedDateSmoking Tobacco: NeverAlcohol UseStandard Drinks/WeekCommentsNever0 (1 standard drink = 0.6 oz pure alcohol) Estimated Date of ZobmaeupTnlumxzvUpo24/15/2026Based on last menstrual period of 11/19/2024 (Approximate)Sex and Gender InformationValueDate RecordedSex Assigned at BirthNot on fileLegal HptHedwbn38/15/2023 10:09 PM EDTGender IdentityNot on fileSexual OrientationNot on filedocumented as of this encounter Last Filed Vital Signs Vital SignReadingTime TakenCommentsBlood Stsqnayw238/8607/06/2025 10:55 AM EST Pulse--Temperature--Respiratory Rate--Oxygen Saturation--Inhaled Oxygen Concentration--Afrudz76.4 kg (217 lb)07/06/2025 10:55 AM ESTHeight--Body Mass Index35.0202 12:00 PM ESTdocumented in this encounter Progress Notes * Misa KnightDI - 07/06/2025 10:40 AM EST Reason for Appointment: Patient ID: Yenifer Viveros is a 24 y.o. female who presents for Routine Visit Patient presents today for Return OB appointment. MEDICATIONS Current Outpatient Medications Medication Instructions labetalol (Normodyne) 200 MG tablet 1 tablet, 2 times daily 27-1 MG tablet 1 tablet, Daily ALLERGIES [...] nursing note reviewed. Exam conducted with a motor coach operator present. Vitals: Estimated body mass index is 35.02 kg/m?? as calculated from the following: Height as of 09/24/19: 5' 6 . Weight as of this encounter: 217 lb. BP: 128/86 Patient's last menstrual period was 11/19/2024 (approximate). Assessment/Plan ICD-10-CM 1. Third trimester ([facility]) Z34.93 POCT urinalysis dipstick manually resulted 2. 32 weeks gestation of ([facility]) Z3A.32 Assessment/Plan Return OB: Patient presents today for a routine obstetrics appointment. Patient is currently 32w5d . Patient states she is doing well but has complaints of being tired due to current . Patient has verbalizes frequent movement. labor precautions was discussed/given and patient was instructed to perform kick counts three times a day. Discussed induction for 08/16/25 Orders Placed This Encounter Procedures POCT urinalysis dipstick manually resulted Follow Up: Patient is to return to office in 2 week for routine OB appointment. Documented by Misa Knight LPN on behalf of: Abad Canchola DO documented in this encounter Plan of Treatment DateTypeDepartmentCare Team (Latest Contact Info)Aenxdadolfl10/09/2025 8:50 AM ESTRoutine [facility] [address] [place] [address] Patricia Roy NP [address] [place] [address] documented as of this encounter Procedures Procedure NamePriorityDate/TimeAssociated DiagnosisCommentsPOCT URINALYSIS CVAKCBXQXtoljhp78/25/2025 11:00 AM EST Third trimester ([facility]) documented in this encounter Results * POCT urinalysis dipstick manually resulted (07/06/2025 11:00 AM EST)Component ValueRef RangeTest MethodAnalysis TimePerformed AtPathologist SignatureColor, UAYellowClarity, UAClearGlucose, UANegativeNegative - 1999(110) ++++ mg/dL Bilirubin, UANegativeNegative - 4(70) +++ mg/dLKetones, UANegativeNegative - 160(16) ++++ mg/dLSpec Grav, UA1.0151 - 1.03Blood, UANegativeNegative - 50 Randall/mcLpH, UA6.05 - 9Protein, UANegativeNegative - 2000(20) ++++ mg/dL Urobilinogen, UA0.20.2 - 12 mg/dLLeukocytes, UANegativeNegative - 500+++ Johnson/mcLNitrite, UANegativeNegative - PositiveSpecimen (Source)Anatomical Location / LateralityCollection Method / VolumeCollection TimeReceived Time Urine07/06/2025 11:00 AM EST Narrative Authorizing ProviderResult TypeResult StatusCorey Jesika DOPOINT OF CARE TEST ENTER/EDIT ORDERABLESFinal Result documented in this encounter Visit Diagnoses Diagnosis Third trimester ([facility]) state, incidental 32 weeks gestation of ([facility]) documented in this encounter Care Teams Team MemberRelationshipSpecialtyStart DateEnd Date Michelle Pabon MD [address] [place] [address] PCP - GeneralFamily Medicine03/25/24documented as of this encounter
--- OUTSIDE RECORDS SUMMARY | 2025-07-09 14:56 | XMS_ITS | CCD ---
Author Organization [facility] Care Team Providers Care Salon Customer Experience Specialist Name Role Phone JESIKA, DR CALVIN Primary [...] Unavailable JESIKA, DR CALVIN Attending Unavailable Malick SECURITY SME - DRILLER'S OFFSIDER, Annel Concha Primary Care Provider ANNEL TERESA Referring Unavailable MALICK, ANNEL Concha Primary Care Unavailable Michelle Pabon MD Primary Care Provider [phone] Malick SECURITY SME-DRAFTING CLERK, Annel Heath Primary Care Provider Unavailable Primary Care Provider Michelle Hernandez MD Primary Care Provider Michelle Pabon MD Primary Care Provider Malick APARICIO - DRILLER'S OFFSIDER, Annel Concha Primary Care Provider [phone] RAFAEL LARA Referring Unavailable MALICK, ANNEL Kern [...] oral tablet (1 source)Penicillin-class AntibacterialStart: 08-02-2023 End: 90-91-8128pssn 1 tablet by mouth once in the morningamoxicillin-pot clavulanate (AUGMENTIN) 875-125 mg per tablet Take 1 tablet by mouth in the morningand 1 tablet before bedtime. Do all this for 7 days. 14 tablet 0 08/02/2023 08/09/2023 Activedocusate sodium 100 mg oral capsule (4 sources)Start: 01-13-2025 End: 87-84-5045kfvp 1 capsule by mouth in the morningdocusate sodium (Colace) 100 MG capsule Indications: Constipation, unspecified constipation type Take 1 capsule (100 mg) by mouth in the morning and 1 capsule (100 mg) before bedtime. Do all this for10 days. 20 capsule 01/13/2025 01/23/2025 Activeloratadine 10 mg oral tablet (6 sources) End: 51-61-4674gxyt 1 tablet by mouth once dailyloratadine (Claritin) 10 MG tablet Take 10 mg by mouth Daily 01/13/2025 Discontinuedlosartan potassium 25 mg oral tablet (5 sources)Angiotensin 2 Receptor BlockerStart: 02-28-2024 End: 53-22-8151tfnw 25 mg by mouth once dailyLosartan Active 25 MG PO Daily February 28, 2024 12:00ammetFORMIN hydrochloride 500 mg oral tablet (6 sources)BiguanideStart: 12-01-2024 End: 56-63-7568audt 1 tablet by mouth at mealtimemetFORMIN (Glucophage) 500 MG tablet Indications: PCOS (polycystic ovarian syndrome) , Insulin resistance Take 1 tablet (500 mg) by mouth in the morning. Take with meals. 30 tablet 11 12/01/2024 01/13/2025 Discontinuedmetoclopramide 10 mg oral tablet (20 sources)Dopamine-2 Receptor AntagonistStart: 04-15-2025 End: 32-38-8176umdkwvwyclpbjy (Reglan) 10 MG tablet Indications: Nausea and vomiting during (HHS-HCC) Take 1 tablet (10 mg) by mouth in the morning and 1 tablet (10 mg) at noon and 1 tablet (10 mg) in theevening. Take before meals. Take 1 tablet by mouth 30 minutes prior to meals 3 times daily as needed for nausea. 90 tablet 1 04/15/2025 ActiveStart: 01-13-2025 End: 83-18-7322mzavyTBYXHJLD 0.0075 mg/mg vaginal gel (3 sources)Nitroimidazole AntimicrobialStart: 05-10-2025 End: 28-41-8055zdokvWJQBVQTA (Metrogel) 0.75 % vaginal gel Indications: BV (bacterial vaginosis) Insert into the vagina Daily for 5 days 70 g 05/10/2025 05/15/2025 ActiveMultiple Vitamin (multivitamin) tablet (6 sources) End: 87-83-4052kner 1 tablet by mouth once dailyMultiple Vitamin (multivitamin) tablet Take 1 tablet by mouth Daily 01/13/2025 Discontinuedtake 1 tablet by mouth once dailyMultiple Vitamin (multivitamin) tablet Take 1 tablet by mouth Daily Skcmnr36 hr NIFEdipine 30 mg extended release oral tablet (7 sources)Dihydropyridine Calcium Channel BlockerStart: 89-28-7140ftpd 1 tablet by mouth once daily, then take 1 tablet by mouth every twenty-four hours NIFEdipine CC (Adalat CC) 30 MG 24 hr tablet Take 30 mg by mouth Daily 10/20/2024 Activeondansetron 4 mg disintegrating oral tablet (20 sources)Serotonin-3 Receptor AntagonistStart: 50-18-9510dbdz 1 tablet by mouth every eight hours as needed for nauseaondansetron ODT (Zofran-ODT) 4 MG disintegrating tablet Take 4 mg by mouth every 8 (eight) hours ifneeded for nausea 02/22/2025 ActiveStart: 01-11-2025 End: 59-14-9957wexa 1 tablet by mouth every six hours for nauseaondansetron ODT (Zofran-ODT) 4 MG disintegrating tablet Indications: Nausea and vomiting during ([facility]) Take 1 tablet (4 mg) by mouth every 6 (six) hours if needed for nausea or vomiting 30 tablet 2 01/11/2025 02/10/2025 Activephentermine hydrochloride 37.5 mg oral tablet (3 sources)Sympathomimetic Amine AnorecticStart: 01-09-2023 End: 07-34-1005gpbh 33-33.9 tablets by mouth once daily before breakfast phentermine (ADIPEX-P) 37.5 mg tablet Indications: Class 1 obesity due to excess calories without serious comorbidity with body mass index (BMI) of 33.0 to 33.9 in adult Take 1 tablet (37.5 mg total)by mouth every morning before breakfast. 30 tablet 0 03/05/2023 08/02/2023 Discontinued (Therapy completed)predniSONE 20 mg oral tablet (1 source)Start: 08-02-2023 End: 89-61-9160lspf 1 tablet by mouth at mealtimepredniSONE (DELTASONE) 20 mg tablet Take 1 tablet (20 mg total) by mouth in the morning for 7 days.Take with food. 7 tablet 0 08/02/2023 08/09/2023 ActivePrenatal 27-1 MG tablet (20 sources)take 1 tablet by mouth once dailyPrenatal 27-1 MG tablet Take 1 tablet by mouth Daily ActiveSemaglutide (Weight Loss) (1 source)Start: 59-27-1079Ddedjxejzre (Weight Loss) (Wegovy) 0.25 mg/0.5 mL pen injector Active 0.25 MG SUBCUT every week February 28, 2024 12:00am administer weeks 1 through 4 of therapy Completed/Discontinued Medications MedicationDrug Class(es)DatesSig (Normalized)Sig (Original)24 hr buPROPion hydrochloride 150 mg extended release oral tablet (10 sources)AminoketoneStart: 03-06-2024 End: 85-56-5004mdcf 1 tablet by mouth every twenty-four hours in the morning buPROPion XL (Wellbutrin XL) 150 MG 24 hr tablet Take 150 mg by mouth in the morning. 03/06/2024 12/01/2024 DiscontinuedStart: 12-05-2023 End: 19-05-7232ieqr 150 mg by mouth once daily in the morningBupropion Hcl Active 150 MG PO Every morning January 07, 2024 12:59pm End: 76-90-4402ayOXGMenj SR (Wellbutrin SR) 150 MG 12 hr tablet 12/01/2024 DiscontinuedDULoxetine 60 mg delayed release oral capsule (12 sources)Serotonin and Norepinephrine Reuptake InhibitorStart: 12-05-2023 End: 81-61-0016rvpp 1 capsule by mouth once dailyDuloxetine (Cymbalta) 30 mg capsule,delayed release(DR/EC) Discontinued 30 MG PO Daily 14 14 December 05, 2023 12:00am December 18, 2023 1:01pmStart: 01-09-2023 End: 28-02-4307rapf 1 capsule by mouth once dailyDuloxetine (Cymbalta) 60 mg capsule,delayed release(DR/EC) Discontinued 60 MG PO Daily December 05, 2023 12:00am December 05, 2023 4:15pmethinyl estradiol 0.035 mg / norgestimate 0.25 mg oral tablet (8 sources)Progestin, EstrogenStart: 01-16-2024 End: 51-78-8779ibzuclaadmia-ethinyl estradiol (Ortho-Cyclen) 0.25-35 MG-MCG tablet Indications: Encounter for surveillance of contraceptive pills Take 1 tablet by mouth Daily 84 tablet 3 01/16/2024 12/01/2024 DiscontinuedStart: 13-73-1066csbw 1 tablet by mouth once dailyNorgestimate-Ethinyl Estradiol Active 1 TAB PO Daily December 05, 2023 12:00amStart: 69-92-4636oarp 1 tablet by mouth once in the morningnorgestimate-ethinyl estradioL (ORTHO-CYCLEN) 0.25-35 mg-mcg per tablet Take 1 tablet by mouth in the morning. 12/18/2022 ActiveStart: 53-33-7838xluh 1 tablet by mouth once in the morningnorgestimate-ethinyl estradioL (ORTHO-CYCLEN) 0.25-35 mg-mcg per tablet Take 1 tablet by mouth in the morning. 0 12/18/2022 Ipadun80 hr loratadine 10 mg / pseudoephedrine sulfate 240 mg extended release oral tablet (5 sources)alpha-Adrenergic AgonistStart: 08-02-2023 End: 65-95-3565rtss 10-240 mg by mouth every twenty-four hours in the morning Loratadine-D 24HR 10-240 MG 24 hr tablet Take 1 tablet by mouth in the morning. 08/02/2023 12/01/2024 DiscontinuedStart: 08-02-2023 End: 81-87-1896zjys 1 tablet by mouth once in the [...] unspecified; Translations: [Mixed anxiety and depressive disorder]Onset: 723950-78-0138IxyyealGbkgqtqokwxdt (5 sources)Endometriosis of pelvic peritoneum; Translations: [Endometriosis (clinical)]Onset: 580894-95-3436KcojwtfCipunr infertility (2 sources)Female infertility; Translations: [Female infertility, unspecified] 20-89-7117OvpfrkmOjgpukvkoqxk complicating ; childbirth and the puerperium (2 sources)-induced hypertension; Translations: [Gestational [-induced] hypertension withoutsignificant proteinuria, unspecified trimester]20-35-2158PhlclianAimaxmcuszwfz and screening for infectious disease (3 sources)Encounter for screening for human papillomavirus (HPV); Translations: [Exposure to sexually transmissible disorder]Onset: 068691-48-7959Xkhzdaea Menstrual disorders (7 sources)Excessive and frequent menstruation with regular cycle; Translations: [Dysmenorrhea, unspecified]Onset: 96-13-1429IawwttqQgnv disorders (2 sources)Major depression in full remission; Translations: [Major depressive disorder, single episode, in full remission]Onset: hronic Other complications of (4 sources)Vomiting of , unspecified; Translations: [Unspecified vomiting of , unspecified as to episode of care or not applicable] 09-90-5877RzmadhzjCayaa complications of (2 sources) size does not accord with dates; Translations: [Uterine size- date discrepancy, unspecified trimester]75-05-8025ZvyisutsNpnxx endocrine disorders (2 sources)Polycystic ovary syndrome; Translations: [Polycystic ovarian syndrome]11-10-2950QbiyrxrQfqmz female genital disorders (1 source)Unspecified dyspareunia; Translations: [UNSPECIFIED DYSPAREUNIA]Onset: 16-26-2902YnshkjfNrdht female genital disorders (1 source)Abnormal uterine and vaginal bleeding, unspecified; Translations: [ABNORMAL UTERINE VAGINAL BLEED UNS]Onset: 32-22-3000FauhxxaYymxi female genital disorders (2 sources)Abnormal uterine bleeding; Translations: [Abnormal uterine and vaginal bleeding, unspecified]23-26-9123QbomreoTdgtc female genital disorders (4 sources)Vaginal discharge; Translations: [Other specified noninflammatory disorders of vagina]16-74-0609OswgjmoaVdqss gastrointestinal disorders (2 sources)Constipation; Translations: [Constipation, unspecified]01-13-2025 EpisodicOther nutritional; endocrine; and metabolic disorders (1 source)Obesity, unspecified; Translations: [OBESITY UNSPECIFIED]Onset: 48-70-7441DcdwkmzWjmdm nutritional; endocrine; and metabolic disorders (2 sources)Insulin resistance; Translations: [Insulin resistance]12-01-2024 ChronicOther and delivery including normal (16 sources); Translations: [Encounter for supervision of normal , unspecified, unspecified trimester]10-22-0651PpqoiflbKdqgn screening for suspected conditions (not mental disorders or infectious disease) (8 sources)Encounter for screening for malignant neoplasm of cervix; Translations: [Patient encounter status]Onset: 52-79-0484JokegegtZhrzugwjwlbrci and other problems of amniotic cavity (2 sources)Subchorionic hematoma; Translations: [Other specified disorders of amniotic fluid and membranes, first trimester, not applicable or unspecified] 22-98-4151MelpbolzLmjgtouk codes; unclassified (2 sources)Gestation period, 13 weeks; Translations: [13 weeks gestation of ]94-41-5318HveukthnFzgkhifu codes; unclassified (2 sources)Gestation period, 17 weeks; Translations: [17 weeks gestation of ]22-37-7329RtqtjwmqMvgsgjxh codes; unclassified (2 sources)Gestation period, 21 weeks; Translations: [21 weeks gestation of ]58-09-2654XarvzfadMswagiug codes; unclassified (2 sources)Gestation period, 24 weeks; Translations: [24 weeks gestation of ]40-83-2858SawbjbzgJdsqyczq codes; unclassified (4 sources)Gestation period, 28 weeks; Translations: [28 weeks gestation of ]23-35-8943ExdjhjfaWnosajrqywyv (1 source)CONTACT W/AND (SUSP) EXPOS COVID-19; Translations: [CONTACT W/AND (SUSP) EXPOS COVID-19]Onset: 61-48-7642Taaxigsbdavy (2 sources)pre employment; Translations: [pre employment]Onset: 03-04-2025 Past or Other Problems Problem ClassificationProblemDateDocumented DateEpisodic/ChronicAbdominal pain (1 source)Pelvic and perineal pain; Translations: [PELVIC AND PERINEAL PAIN] Onset: 20-43-3400IqrzmpgzTiml disorders (3 sources)Mood disorders; Translations: [DEPRESSION UNSPECIFIED]Onset: Other circulatory disease (1 source)Elevated blood pressure; Translations: [Elevated blood-pressure reading, without diagnosis of hypertension]56-34-6517MpmafaozPwlqw upper respiratory infections (1 source)Acute maxillary sinusitis; Translations: [Acute maxillary sinusitis, unspecified]84-96-7847LehvdsctRjyzqq media and related conditions (1 source)Acute non-suppurative otitis media - serous; Translations: [Acute serous otitis media, bilateral]04-56-6806HgcuwdioYipprtcjfvzo (2 sources)Onset: Results Test NameValueInterpretationReference RangeFacilityUS OB FOLLOW UP TRANSABDOMINAL APPROACHon 30-91-9901WI OB FOLLOW UP TRANSABDOMINAL APPROACH FINDINGS: A [...] Delivery: 08/26/25 Gestational Age as of 06/08/2025: 40h9uEzcocskifo macro (dipstick) panel (U)on 87-06-2440Xajvqtgfe, UANegativeNegative - 4(70) +++ mg/dLNOMS HealthcareBlood, UANegativeNegative [...] mg/dLNOMS HealthcareNOMS HealthcareUrinalysis macro (dipstick) panel (U)on 23-72-3166Ygokrpvvx, UA NegativeNegative - 4(70) +++ mg/dLNOMS HealthcareBlood, UANegativeNegative - 50 Randall/mcLNOMS HealthcareClarity, UAClearNOMS HealthcareColor, UAYellowNOMS HealthcareGlucose, UANegativeNegative - 1999(110) ++++ mg/dLNOMS Healthcare Interpretation and review of laboratory resultsAbnormalNOMS HealthcareKetones, UANegativeNegative - 160(16) ++++ mg/dLNOMS HealthcareLeukocytes, UAPositive Negative - 500+++ [facility] Psych[facility] CenterNOMS HealthcareComment on above:1+Nitrite, UANegative Negative - PositiveNOMS HealthcarepH, UA6.05 - 9NOMS HealthcareProtein, UA PositiveNegative - 1999(20) ++++ mg/dLNOMS HealthcareSpec Grav, UA1.0201 - 1.03 NOMS HealthcareUrobilinogen, UA1.00.2 - 12 mg/dLNOMS HealthcareNOMS Healthcare Urinalysis macro (dipstick) panel (U)on 33-22-2542Robexerxi, UANegativeNegative - 4(70) +++ mg/dLNOMS HealthcareBlood, UANegativeNegative - 50 Randall/mcLNOMS HealthcareClarity, UAClearNOMS HealthcareColor, UAYellowNOMS HealthcareGlucose, UANegativeNegative - 1999(110) ++++ mg/dLNOMS HealthcareInterpretation and review of laboratory resultsAbnormalNOMS HealthcareKetones, UANegativeNegative - 160(16) ++++ mg/dLNOMS HealthcareLeukocytes, UA3+Negative - 500+++ [facility] CenterNOWA HealthcareNitrite, UANegativeNegative - PositiveNOMS HealthcarepH, UA8.55 - 9 NOMS HealthcareProtein, UATraceNegative - 1999(20) ++++ mg/dLNOMS HealthcareSpec Grav, UA1.011 - 1.03NOMS HealthcareUrobilinogen, UA2.00.2 - 12 mg/dLNOMS HealthcareNOMS HealthcareIGP,APTIMA HPV,AGE GDLNon 32-00-0245OMV GDLN ACOG TESTINGNote.[facility] HealthcareComment on above:TESTS RESULT FLAG UNITS REF RANGE LAB Clinician Provided Cytology Information Source.............Endocervix Other.............. No. of containers..01 ThinPrep Vial Age Madhu CRANE Millie... FLAG LEGEND: L-Low Normal,H-High Normal,LL-Alert Low,HH-Alert High <-Panic Low,>-Panic High,A-Abnormal,AA-Critical Abnormal Performed at: 01 =[facility] [address] [place] [address] Beverly Nguyen MD, IGP, RFX APTIMA HPV ASCUNote.NOMS HealthcareComment on above:TESTS RESULT FLAG UNITS REF RANGE LAB DIAGNOSIS: 02 NEGATIVE FOR INTRAEPITHELIAL LESION OR MALIGNANCY. FUNGAL ORGANISMS MORPHOLOGICALLY CONSISTENT WITH ROSALBA SPECIES ARE PRESENT. Specimen adequacy: 02 Satisfactory for evaluation. Endocervical and/or squamous metaplastic cells (endocervical component) are present. Performed by: 02 Sonia Beckham, Professor Of German ([facility]) . 02 Note: Note 02 [...] High <-Panic Low,>-Panic High,A-Abnormal,AA-Critical Abnormal Performed at: [address] [place] [id number] Beverly Nguyen MD, Performed at: = - [address] [id number] Pattern Maker: Beverly Nguyen MD, Phone: [phone] Performed at: [address] [id number] Pattern Maker: Beverly Nguyen MD, Phone: [phone] SPATULA-ALONE ENDOCERVIX CLINISYNCNOMS HealthcareAFP, SERUM, OPEN SPINA BIFIDAon 10-01-0382PWE MOM1.10. [facility] HealthcareAFP VALUE34.4 ng/mL.[facility] HealthcareCOMMENT:Comment.[facility] HealthcareComment on above:Giselle Merida, Ph.D., [facility] Director References: Available Upon Request. Multiples Of Median Cutoffs For AFP Elevations Sellers 2.5 Black 2.8 IDD 2.0 Twins 4.5 Abbreviation Definitions IDD - Insulin Dep Diabetes OSBR - Open Spina Bifida Risk For further inquiries contact [facility] at [phone]. This test was developed and its performance characteristics determined by [facility]. It has not been cleared or approved by the Food and Drug Administration. Performed at: - [facility] [address] [facility], [place], [place] [id number] Pattern Maker: Nirmal Means [facility], Phone: [phone] GEST. AGE ON COLLECTION DATE17.0. weeksNOWA HealthcareGESTAT. AGE BASED ONLMP. NOMS HealthcareComment on above:Recalculations are not recommended when gestational dating by LMP and ultrasound are within 10 days. INSULIN DEP DIABETESNo.NOM HealthcareINTERPRETATIONComment.[facility] Healthcare Comment on above:Interpretation: Screen Negative This [...] 35 and older. MATERNAL AGE AT EDD25.9. yrNOWA HealthcareMULTIPLE GESTATIONNo.[facility] OSBR RISK 1 [id number].[facility] HealthcareRACECaucasian.[facility] HospitalRESULTSReport. [facility] HospitalTEST RESULTS:Negative.[facility] IjvalijptnYEGOWH429. lbsNOMS HealthcarePREGNANCY N N LMP [id number] 0 17 N 1 Y 206 N N N N N White/ CLINISYNCNOMS HealthcareRECURRENT VAGINITIS (HTRX)on 31-53-9998FXHKFTZLT VAGINAE 0NOMS HealthcareATOPOBIUM VAGINAENot detectedNOMS HealthcareBVAB 2,3 (BACTERIAL VAGINOSIS ASSOCIATED BACTERIA 2, 3); MOBILUNCUS GCJ0CAWG HealthcareBVAB 2,3 (BACTERIAL VAGINOSIS ASSOCIATED BACTERIA 2, 3); MOBILUNCUS SPPNot detectedNOMS HealthcareCANDIDA ALBICANS, PARAPSILOSIS, TMKQBKJZUD15.725AbnormalNOMS HealthcareCANDIDA ALBICANS, PARAPSILOSIS, TROPICALISDetectedAbnormalNOMS HealthcareCANDIDA ZGAWGKXQ3ALJE HealthcareCANDIDA GLABRATANot detectedNOMS HealthcareCANDIDA XOKXSO6RTNS HealthcareCANDIDA KRUSEINot detectedNOMS HealthcareCHLAMYDIA JRTKCZYDBCJ9RLHY HealthcareCHLAMYDIA TRACHOMATISNot detected NOMS HealthcareGARDNERELLA NVEEKGLZE16.732AbnormalNOMS HealthcareGARDNERELLA VAGINALISDetectedAbnormalNOMS HealthcareInterpretation and review of laboratory resultsAbnormalNOMS HealthcareMEGASPHAERA (TYPES 1, 2)0[facility] MEGASPHAERA (TYPES 1, 2)Not detectedNOMS HealthcareMYCOPLASMA AXVCBPKNVF4GFWQ HealthcareMYCOPLASMA GENITALIUMNot detectedNOMS HealthcareNEISSERIA GONORRHOEAE0 NOMS HealthcareNEISSERIA GONORRHOEAENot detectedNOMS HealthcareTRICHOMONAS RMQQMLFCZ6DCLS HealthcareTRICHOMONAS VAGINALISNot detectedNOMS HealthcareNOMS HealthcareUS OB LIMITED 1+ FETUSESon 51-77-0035VU OB LIMITED 1+ FETUSESFINDINGS: Cephalic presentation. Anterior [...] was 11/19/2024 (approximate).Urinalysis macro (dipstick) panel (U)on 56-33-0760Loccxnxdx, UANegativeNegative - 4(70) +++ mg/dL NOMS HealthcareBlood, UANegativeNegative - 50 Randall/mcLNOMS HealthcareClarity, UA ClearNOMS HealthcareColor, UAYellowNOMS HealthcareGlucose, UANegativeNegative - 1999(110) ++++ mg/dLNOWA HealthcareInterpretation and review of laboratory resultsAbnormalNOWA HealthcareKetones, UANegativeNegative - 160(16) ++++ mg/dL NOMS HealthcareLeukocytes, UAPositiveNegative - 500+++ Johnson/mcLNOMS Healthcare Comment on above:3+Nitrite, UANegativeNegative - PositiveNOMS HealthcarepH, UA75 - 9NOMS HealthcareProtein, UANegativeNegative - 2000(20) ++++ mg/dLNOMS HealthcareSpec Grav, UA1.021 - 1.03NOWA HealthcareUrobilinogen, UA1.00.2 - 12 mg/dLNOWashington University Medical CenterNOWA HealthcareQuantiFERON Tbon 50-71-5120IAP InterNegative NormalNEGFort Hamilton HospitalCompaul [facility] on above:Result Comment: Quantiferon TB Gold [...] Mycobacterium tuberculosis Infection -- [place], 2010 (http://www.cdc.gov/mmwr/preview/mmwrhtml/jw9287p0.htm), for more information concerning test performance in low-prevalence populations and use in occupational screening.Performed By: #### QFTB #### [employer] [address] [place], [place] [id number] Pattern Maker: Hamlet Cai Juan minus NIL9.92 IU/mLNormalFort Hamilton HospitalCompaul oliver [facility] hospital on above:Performed By: #### QFTB #### [employer] [address] [place], [place] [address] Pattern Maker: Hamlet Caii TB1 minus NIL0.00 IU/mLNormal0.00-0.34 [facility] HospitalCompaul [facility] on above:Performed By: #### QFTB #### [employer] [address] [place], [place] [id number] Pattern Maker: Lance Chester MDQuanti TB2 minus NIL0.00 IU/mLNormal0.00-0.34 Fort Hamilton HospitalComment on above:Performed By: #### QFTB #### [facility] [address] [place], [place] [id number] Pattern Maker: Lance Chester MDQuantiFERON NIL0.08 IU/mLNormalFort Hamilton HospitalComment on above:Performed By: #### QFTB #### [facility] [address] [place], [place] [id number] Pattern Maker: Lance Chester MDUrinalysis macro (dipstick) panel (U)on 47-36-2881Mtquxlqho, UANegativeNegative - 4(70) +++ mg/dLNOMS HealthcareBlood, UANegativeNegative [...] - 12 mg/dLNOMS HealthcareNOMS HealthcareUS OB TRANSVAGINALon 77-58-6829[address] [address] Ultrasound Report Signed Patient: MEREDITH TEMPLETON MR#: [id number] : 2000 Acct:[id number] Age/Sex: 24 / F ADM Date: 02/11/25 Loc: US Attending Dr: Abad Canchola D.O. Ordering Physician: Abad Canchola D.O. Date of Service: 02/11/25 Procedure(s): US OB transvaginal Accession Number(s): [id number] cc: Michelle Pabon M.D.; Abad Canchola D.O. [place] [address] Patient Name: MEREDITH TEMPLETON MRN: [id number] date: 2000 Sex: F Assigned Patient Location: US Current Patient Location: US Accession/Order Number: [id number] Exam Date: 02/11/2025 09:39 Report Date: 02/11/2025 [...] 02/11/2025 9:43 AM Dictation Location: [place] [address] Electronically authenticated by: [id number] Y Date: 02/11/2025 09:43 Dictated By: Misa Gillette M.D. Signed By: 02/11/2546 DD/ 2 TD/TT: Embroidery Patternmaker:SHERRIEadiology, Radiologist, - 02/11/[address] [address] Ultrasound Report Signed Patient: MEREDITH TEMPLETON MR#: [id number] : 2000 Acct:[id number] Age/Sex: 24 / F ADM Date: 02/11/25 Loc: US Attending Dr: Abad Canchola D.O. Ordering Physician: Abad Canchola D.O. Date of Service: 02/11/25 Procedure(s): US OB transvaginal Accession Number(s): [id number] cc: Michelle Pabon M.D.; Abad Canchola D.O. The [place] [id number] Patient Name: MEREDITH TEMPLETON MRN: [id number] date: 2000 Sex: F Assigned Patient Location: US Current Patient Location: US Accession/Order Number: [id number] Exam Date: 02/11/2025 09:39 Report Date: 02/11/2025 [...] 02/11/2025 9:43 AM Dictation Location: [place] [address] Electronically authenticated by: [id number] Y Date: 02/11/2025 09:43 Dictated By: Misa Gillette M.D. Signed By: 02/11/2546 DD/ 2 TD/TT: Embroidery Patternmaker: [facility] HospitalRadiology Study observation (narrative)[facility] HospitalUS OB TRANSVAGINALOrdered By: Radiologist Radiology on 29-85-8678YEEROzarks Community Hospital Work Phone: HCG ( test) Ql (U)on 60-74-4387Wsqngnnwiqnfyn and review of laboratory resultsAbnormalNOWashington University Medical CenterPreg Test, UrPositive NegativeNOMonroe Clinic HospitalMLR HEMOGLOBIN A1Con 53-01-2240Ckxgley [Mass/Vol]91 mg/dLOzarks Community HospitalHbA1c (Bld) [Mass fraction]4.8 %4.5 - 6.2 %[facility] HospitalComment on above:ADA RECOMMENDED LIMIT 4.0 - 6.0 ADA THERAPEUTIC TARGET < 7.0 ACTION SUGGESTED > 7.0 CLINISYNCNOWA HealthcareUS OB TRANSVAGINALon 88-83-4069OG OB TRANSVAGINALEXAM: US OB TRANSVAGINAL HISTORY: Dating. [...] II, MD, PHD at 22-Jan-2025 10:24:02 AM [facility] TeleradiologyNormalNot AvailableComment on above:Order Comment: US OB TRANSVAGINAL Patient's last menstrual period was 11/19/2024 (approximate).Urinalysis macro (dipstick) panel (U)on 28-57-6459Lwebbkqqb, UANegativeNegative - 4(70) +++ mg/dL NOMS HealthcareBlood, [...] HealthcareNOMS Healthcare Urinalysis macro (dipstick) panel (U)on [id number], UANegativeNegative - 4(70) +++ mg/dLNOMS HealthcareBlood, UANegativeNegative - 50 Randall/mcLNOMS HealthcareClarity, UAClearNOMS HealthcareColor, UAYellowNOMS HealthcareGlucose, UANegativeNegative - 1999(110) ++++ mg/dLBLUE MOUNTAIN HOSPITAL, INC. HealthcareInterpretation and review of laboratory resultsAbnormalNOWA HealthcareKetones, UANegativeNegative - 160(16) ++++ mg/dLBLUE MOUNTAIN HOSPITAL, INC. HealthcareLeukocytes, UAPositiveNegative - 500+++ Johnson/mcL [facility] HealthcareComment on above:LargeNitrite, UANegativeNegative - PositiveNOWA HealthcarepH, UA75 - 9NOMS HealthcareProtein, UANegativeNegative - 2000(20) ++++ mg/dLBLUE MOUNTAIN HOSPITAL, INC. HealthcareSpec Grav, UA1.0151 - 1.03NOWA HealthcareUrobilinogen, UA0.2 0.2 - 12 mg/dLLiberty Hospital HealthcareALL CBC WITH AUTO DIFFon 12-01-2024 BASOPHILS ABSOLUTE AUTO0.1NOMS HealthcareBasophils/100 WBC (Bld)0.5 %0.2 - 2.0 % [facility] HospitalEosinophils/100 WBC (Bld)2.6 %0.9 - 7.0 %[facility] Erythrocyte distribution width (RBC) [Ratio]12.2 %11.0 - 15.0 %[facility] Hematocrit (Bld) [Volume fraction]42.8 %36.0 - 48.0 %[facility] HospitalHemoglobin (Bld) [Mass/Vol]14.8 g/dL12.0 - 16.0 g/dLOzarks Community HospitalIMMATURE GRANULOCYTES ABS AUTO0.01NOWashington University Medical CenterImmature granulocytes/100 WBC (Bld)0.1 %0.0 - 0.5 % [facility] HospitalLYMPHOCYTES ABSOLUTE AUTO2.8NOWashington University Medical CenterLymphocytes/100 WBC (Bld)29.5 %20.5 - 60.0 %[facility] HospitalH (RBC) [Entitic mass]29.6 pg26.7 - 34.0 pgKindred HospitalHC (RBC) [Mass/Vol]34.6 g/dL29.9 - 35.2 g/dLKindred HospitalV (RBC) [Entitic vol]85.6 fL81.0 - 99.0 fLOzarks Community HospitalMONOCYTES ABSOLUTE AUTO0.6NOWashington University Medical CenterMonocytes/100 WBC (Bld)5.8 %1.7 - 12.0 %[facility] HealthcareNEUTROPHILS ABSOLUTE AUTO5.8NOMS HealthcareNeutrophils/100 WBC (Bld) 61.5 %43.0 - 75.0 %NOMS HealthcarePlatelet mean volume (Bld) [Entitic vol]10 fL 9.5 - 13.5 fLNOMS HealthcareTBH EO #0.3NOMS HealthcareTBH AAT188EQKF Healthcare TBH LAV2NPSL HealthcareTBH WBC9.5NOMS HealthcareCLINISYNCNOMS HealthcareHCG ( test) Ql (U)on 29-18-5551Egimfbjkjphbly and review of laboratory resultsNormalOzarks Community HospitalPreg Test, UrNegativeNegativeNOTwo [facility] HealthcareUrinalysis macro (dipstick) panel (U)on 93-96-6111Enifuxqoj, UA NegativeNegative - 4(70) +++ mg/dLNOWA HealthcareBlood, UANegativeNegative - 50 Randall/mcLNOWA HealthcareClarity, UAClearNOWA HealthcareColor, UAYellowNOWA HealthcareGlucose, UANegativeNegative - 2000(110) ++++ mg/dLOzarks Community Hospital Interpretation and review of laboratory resultsAbnormalBLUE MOUNTAIN HOSPITAL, INC. HealthcareKetones, UANegativeNegative - 160(16) ++++ mg/dLOzarks Community HospitalLeukocytes, UAPositive Negative - 500+++ Johnson/mcLNOWA HealthcareComment on above:smallNitrite, UA NegativeNegative - PositiveNOWA HealthcarepH, UA75 - 9NOMS HealthcareProtein, UA NegativeNegative - 2000(20) ++++ mg/dLNOWA HealthcareSpec Grav, UA1.011 - 1.03 [facility] HospitalUrobilinogen, UA0.20.2 - 12 mg/dLNOMS [facility] HospitalNOWA Healthcare IGP,APTIMA HPV,AGE GDLNon 95-93-4548VOS GDLN ACOG TESTINGNote.[facility] Comment on above:TESTS RESULT FLAG UNITS REF RANGE LAB Clinician Provided Cytology Information Source.............Cervix;Endocervix No. of containers..01 ThinPrep Vial Phan Pinto... FLAG LEGEND: L-Low Normal,H-High Normal,LL-Alert Low,HH-Alert High <-Panic Low,>-Panic High,A-Abnormal,AA-Critical Abnormal Performed at: 01 =G [facility] [address] Beverly Nguyen MD, IGP, RFX APTIMA HPV ASCUNote.[facility] HospitalComment on above:TESTS RESULT FLAG UNITS REF RANGE LAB DIAGNOSIS: 02 NEGATIVE FOR INTRAEPITHELIAL LESION OR MALIGNANCY. Specimen adequacy: 02 Satisfactory for evaluation. No endocervical component is identified. Performed by: Pricila Smith, Materials And Corrosion Engineer ([facility]) . 02 Note: Note 02 [...] <-Panic Low,>-Panic High,A-Abnormal,AA-Critical Abnormal Performed at: [address] [address] Beverly Nguyen MD, Performed at: = - [address] [id number] Pattern Maker: Beverly Nguyen MD, Phone: [phone] Performed at: [facility] [address] [id number] Pattern Maker: Beverly Nguyen MD, Phone: [phone] BRUSH-SPATULA CERVIX ENDOCERVIX CLINISYNCNOMS HealthcareComprehensive Metabolic Panelon 96-01-7561Bqpdvyp [Mass/Vol]4.2 g/dLNormal3.5-5.0Peoples HospitalComment on above:Order Comment: Ordered by ANNEL Loving By: #### KEIRA, [id number] #### [place] [address] Ph. [phone] [Catalytic activity/Vol]77 U/KFannlf92-261MlmyjjkPremier HealthComment on above:Order Comment: Ordered by ANNEL Loving By: #### KEIRA, [id number] #### [address] [address] Ph. [phone] [Catalytic activity/Vol]29 U/LNormal0-35WPremier HealthComment on above:Order Comment: Ordered by ANNEL KUNSPerformed By: #### CMP, [id number] #### [place] [address] Ph. [phone] [Catalytic activity/Vol]30 U/NFexsrt15-68KpaogqzPremier HealthComment on above:Order Comment: Ordered by ANNEL Loving By: #### CMP, [id number] #### [place] [address] Ph. [phone] [Mass/Vol]0.4 mg/dLNormal0.2-1.3WPremier HealthComment on above:Order Comment: Ordered by ANNEL Loving By: #### CMP, [id number] #### [place] [address] Ph. [phone] [Mass/Vol]9.2 mg/dLNormal8.4-10.2WPremier HealthComment on above:Order Comment: Ordered by ANNEL Loving By: #### CMP, [id number] #### [place] [address] Ph. [phone] [Moles/Vol]101 mmol/RRdfaig18-070KfuiqqpPremier HealthComment on above:Order Comment: Ordered by ANENL Loving By: #### CMP, [id number] #### [place] [address] Ph. [phone] [Moles/Vol]25 mmol/NRttyjp28-37HqkeqzdPremier Health Comment on above:Order Comment: Ordered by ANNEL Loving By: #### CMP, [id number] #### [place] [address] Ph. [phone] [Mass/Vol]0.71 mg/dLNormal0.52-1.04WPremier HealthComment on above:Order Comment: Ordered by ANNEL Loving By: #### CMP, [id number] #### [address] [address] Ph. [phone]/1.73 sq M.predicted among non-blacks MDRD (S/P/Bld) [Vol rate/Area]122 mL/min/{1.73_m2}Normal>60WPremier HealthComment on above:Order Comment: Ordered by ANNEL Reynoso Comment: GFR calculated using CKD-EPI (2020) formula.\X0D0A\Stage 1 Kidney damage (e.g., protein in the urine) with normal GFR >=90\X0D0A\Stage 2 Kidney damage with mild decrease in GFR 60-8 9\X0D0A\Stage 3a Moderate decrease in GFR 45-59\X0D0A\Stage 3b Moderate decrease in GFR 30-44\X0D0A\Stage 4 Severe reduction in GFR 15-29\X0D0A\Stage 5 Kidney failure <15Performed By: #### CMP, [id number] #### [address] [address] Ph. [phone] [Mass/Vol]85 mg/sISpdjbk09-463DthyxohPeoples Hospital Comment on above:Order Comment: Ordered by ANNEL Loving By: #### CMP, [id number] #### [address] [address] Ph. [phone] [Moles/Vol]4.1 mmol/LNormal3.6-5.0WPremier HealthComment on above:Order Comment: Ordered by ANNEL Loving By: #### CMP, [id number] #### [address] [address] Ph. [phone] [Mass/Vol]8.0 g/dLNormsd6.3-8.2[facility] Comment on above:Order Comment: Ordered by ANNEL Loving By: #### CMP, [id number] #### [address] [place] [address] Ph. [phone] [Moles/Vol]137 mmol/AMhtbap544-418LimxtclPremier HealthComment on above:Order Comment: Ordered by ANNEL Gonzalezformed By: #### CMP, [id number] #### [address] [place] [address] Ph. [phone] nitrogen [Mass/Vol]10 mg/dLNormal7-17WPremier HealthComment on above:Order Comment: Ordered by ANNEL Gonzalezformed By: #### CMP, [id number] #### [place] [address] Ph. [phone] [Mass/Vol]4.2 g/dL3.5 - 5.0 g/dLWYANDOTALP (Bld) [Catalytic activity/Vol]77 U/L38 - 126 U/LWYANDOTALT [Catalytic activity/Vol]29 U/L0 - 35 U/LWYANDOTAST [Catalytic activity/Vol]30 U/L14 - 36 U/LWYANDOT Bilirubin [Mass/Vol]0.4 mg/dL0.2 - 1.3 mg/dLWYANDOTCalcium [Mass/Vol]9.2 mg/dL 8.4 - 10.2 mg/dLWYANDOTChloride [Moles/Vol]101 mmol/LWYANDOTCO2 [Moles/Vol]25 mmol/LWYANDOTCreatinine [Mass/Vol]0.71 mg/dL0.52 - 1.04 mg/dLWYANDOTGFR, Pqtzrdlii430- PINFWYANDOTComment on above: GFR calculated using CKD-EPI [...] mg/dL7 - 17 mg/dLWYANDOTOrdered by ANNEL FINN [facility] CENTEREZRATTSH Reflex FT4on 15-83-3638BLG5.420 mIU/mLNormal0.470-4.680WOur Lady of Mercy Hospital - [facility] on above:Order Comment: Ordered by ANNEL Gonzalezformed By: #### CMP, [id number] #### [place] [address] Ph. [phone] with Reflexon 20-72-4385RIS Qn2.420 m[IU]/LWYANDOTOrdered by [facility] BASILUCHEALTH BROOMFIELD HOSPITALWYANDOTPAP ACOG PANEL 2: to 03-01-2022.. NormalThe [facility] HospitalComment on above:Performed By: #### [id number] #### [facility] [address] [place] [address] Dr. Dallas Kaplan Gdln ACOG Pmyqhed14-96XaaokvHxhSt. Mary's Medical Center, Ironton CampusCompaul [facility] on above:Performed By: #### [id number] #### [facility] [address] [place] [address] Dr. Dallas WolfDIAGNOSIS:CommentSt. Anthony's Hospital on above: Result Comment: NEGATIVE FOR INTRAEPITHELIAL LESION OR MALIGNANCY.Performed By: #### [id number] #### [facility] [address] [place] [address] Dr. Dallas WolfMethodology:CommentSt. Anthony's Hospital on above: Result Comment: This liquid based ThinPrep(R) pap test was screened with the use of an image guided system.Performed By: #### [id number] #### [facility] [address] [place] [address] Dr. Dallas WolfNote:CommentSt. Anthony's Hospital on above:Result Comment: The Pap smear is a screening test designed to aid in the detection of premalignant and malignant conditions of the uterine cervix. It is not a diagnostic procedure and should not be used as the sole means of detecting cervical cancer. Both false-positive and false-negative reports do occur. .Performed By: #### [id number] #### [facility] [address] [place] [address] Dr. Dallas WolfPerformed by:CommentSt. Anthony's Hospital on above: Result Comment: Nikolay Smith, Materials And Corrosion Engineer (ASCP)Performed By: #### [id number] #### [address] [address] [address] Dallas WolfReflex Criteria:[facility] on above:Result Comment: The HPV DNA reflex criteria were not met with this specimen result therefore, no HPV testing was performed. .Performed By: #### [id number] #### [address] [place] [address] Dr[address] Dallas WolfSpecimen adequacy:[facility] on above:Result Comment: Satisfactory for evaluation. Endocervical and/or squamous metaplastic cells (endocervical component) are present.Performed By: #### [id number] #### [place] [address] Dr. Dallas Jackson AUTO DIFFon 05-75-9786GBUN #0.1 103/ulNormal0.0-0.1The Gal[facility] Hospitalment on above:Performed By: #### CBC #### [facility] [address] [place] [address] Dr. Dallas WolfBasophils/100 WBC (Bld)0.8 %Normal0.2-2.0[facility] Comment on above:Performed By: #### CBC #### [facility] [address] [place] [address] Dr. Dallas Huggins #0.3 103/ulNormal0.0-0.7The [facility] on above: Performed By: #### CBC #### [facility] [address] [address] [address] Dallas Mosleyosinophils/100 WBC (Bld)4.1 %Normal0.9-7.0The [facility] Comment on above:Performed By: #### CBC #### [facility] [address] [place] [address] Dr. Dallas Mosleyrythrocyte distribution width (RBC) [Ratio]13.0 %Hacdzz65.0-15.0 The [facility] HospitalComment on above:Performed By: #### CBC #### [facility] [address] [place] [address] Dr. Dallas WolfHematocrit (Bld) [Volume fraction]43.4 %Cilmqh64.0-48.0The [facility] HospitalComment on above:Performed By: #### CBC #### [facility] [address] [place] [address] Dr. Dallas WolfHemoglobin (Bld) [Mass/Vol]14.5 g/dURmqvoe48.0-16.0The [facility] HospitalComment on above:Performed By: #### CBC #### [facility] [address] [place] [address] Dr. Dallas Ortez #0.02 10e3/ulNormal0.00-0.03The [facility] HospitalComment on above:Performed By: #### CBC #### [facility] [address] [place] [address] Dr. Dallas WolfIG %0.3 %Normal0.0-0.5The [facility] Hospitalment on above: Performed By: #### CBC #### [facility] [address] [place] [address] Dr. Dallas OsheaMPH #2.2 103/ulNormal1.2-3.8The [facility] HospitalComment on above:Performed By: #### CBC #### [facility] [address] [place] [address] Dr. Dallas Osheamphocytes/100 WBC (Bld)28.1 %Zdmrmp30.5-60.0The [facility] HospitalComment on above:Performed By: #### CBC #### [facility] [address] [address] [address] Dallas Cifuentes DIFF REQNONormalThe [facility] HospitalComment on above: Performed By: #### CBC #### [facility] [address] [place] [address] Dr. Dallas Hernandez (RBC) [Entitic mass]28.5 fuIhhrnv04.7-34.0The [facility] HospitalComment on above:Performed By: #### CBC #### [facility] [address] [place] [address] Dr. Dallas Hernandez (RBC) [Mass/Vol]33.4 g/qOScrjff58.9-35.2The [facility] HospitalComment on above:Performed By: #### CBC #### [facility] [address] [place] [address] Dr. Dallas Hernandez (RBC) [Entitic vol]85.3 cKNktokr59.0-99.0The [facility] HospitalComment on above:Performed By: #### CBC #### [facility] [address] [place] [address] Dr. Dallas Smith #0.6 103/ulNormal0.3-0.8The [facility] HospitalComment on above:Performed By: #### CBC #### [facility] [address] [place] [address] Dr. Dallas Medranoocytes/100 WBC (Bld)7.9 %Normal1.7-12.0The [facility] Comment on above:Performed By: #### CBC #### [facility] [address] [place] [address] Dr. Dallas Garcia #4.6 103/ulNormal1.4-6.5The [facility] HospitalComment on above:Performed By: #### CBC #### [facility] [address] [place] [address] Dr. Dallas Novautrophils/100 WBC (Bld)58.8 %Fzgzbn42.0-75.0The [facility] Hospitalment on above:Performed By: #### CBC #### [facility] [address] [address] [address] Dallas Loulet mean volume (Bld) [Entitic vol]9.6 fLNormal9.5-13.5The [facility] on above:Performed By: #### CBC #### [facility] [address] [address] [address] Dallas WolfPLT242 103/viTlazvr390-942Wjh [facility] HospitalComment on above: Performed By: #### CBC #### [facility] [address] [place] [address] Dr. Dallas WolfRBC5.09 106/ulNormal4.20-5.40[facility] on above:Performed By: #### CBC #### [facility] [address] [place] [address] Dr. Dallas WolfWBC7.8 103/ulNormal4.0-11.0The [facility] HospitalComment on above: Performed By: #### CBC #### [facility] [address] [place] [address] Dr. Dallas WolfPREElise QUANT HCGon 38-87-7237NGQ QUANT<1NormalMercy Health [facility] Hospital Comment on above:Performed By: #### PREGQNT #### [facility] [address] [place] [address] Dr. Dallas WolfHCElise [facility] HospitalComment on above: Result Comment: 5-50 0-1 WEEK 40-300 1-2 WEEKS 100-1,000 2-3 WEEKS 500-6,000 3-4 WEEKS 5,000-200,000 1-2 MONTHS 10,000-100,000 2-3 MONTHS 3,000-50,000 2ND TRIMESTER 1,000-50,000 3RD TRIMESTERPerformed By: #### PREGQNT #### [facility] [address] [place] [address] Dr. Dallas WolfCovid-19 PCR (CVDTBH)on 45-80-9410VUAU-CoV-2 (COVID-19) RNA SANJANA+probe Ql (Unsp spec)Not detectedNormalNOT DETECTEDThe [facility] Comment on above:Result Comment: This test is not yet approved or cleared by the [place] FDA. When there are no FDA-approved or cleared tests available, and other criteria are met, FDA can make tests available under an emergency access mechanism called an Emergency Use Authorization (EUA). The EUA for this test is supported by the [place] of Health and Human Service's (HHS's) declaration [...] consistent with SARS-CoV-2.Performed By: #### CVDTB #### [facility] [address] [place] [address] Dr. Dallas Wolf Vital Signs Date TimeVital SignValuePerforming RzfkrzeiwXudfqhmt83-56-5370 15:50-0500Body mass index (BMI) [Ratio]35.19 kg/a4Hswnz Jesika DO Work Phone: NOf4samurai Kukhduwtbq71-67-4920 15:50-0500Body hulhzc55.88 kgCorey Jesika DO Work Phone: [phone] University Medical CenterPsighxirby98-83-8136 15:50-0500Diastolic blood mm[Hg]Abad Jesika DO Work Phone: NOMS HealthcareComment on above:130/ 15:50-0500Systolic blood eldlwgol221 mm[Hg]Abad Jesika DO Work Phone: NOMS HealthcareComment on above:130/0584-78-1059 08:41-0400Body mass index (BMI) [Ratio]34.4 kg/m2Amy Gregorio PA Work Phone: [facility] HospitalPdlhdxcxgz15-59-4604 08:41-0400Body .67 kgShagufta Perkins PA Work Phone: [facility] HospitalUmyweolfbe22-37-8533 08:41-0400Diastolic blood ogmsgeiw76 mm[Hg]Shagufta Perkins PA Work Phone: [facility] HospitalTwqfblmdja10-49-2697 08:41-0400Systolic blood doyepfmw766 mm[Hg]Shagufta Perkins PA Work Phone: [phone]-[facility]ly [facility] HospitalCwcqzqcqwh59-41-2722 08:33-0400Body mass index (BMI) [Ratio]33.59 kg/j3Mkxubtww Kirill NURSE RECRUITER Work Phone: [facility] HospitalVfpgluziah95-60-0273 08:33-0400Body ugmutp18.4 kg Say Kirill NURSE RECRUITER Work Phone: [facility] HospitalPbsmjrbtzl38-32-6052 08:33-0400Diastolic blood qeaznwvg45 mm[Hg]Say Cosmeerly NURSE RECRUITER Work Phone: [phone]-[facility]ly [facility] HospitalOzarks Community HospitalRvfkspdcds37-79-0520 08:33-0400Systolic blood fgefrrew439 mm[Hg]Say Cosmeerly NURSE RECRUITER Work Phone: [phone]-[facility]ly [facility] HospitalDksguatdhc68-85-5551 10:35-0400Body mass index (BMI) [Ratio]33.25 kg/f3Dmpxj Jesika DO Work Phone: [facility] HospitalEvyekdsiul92-91-3887 10:35-0400Body .44 kgCorey Jesika DO Work Phone: [phone]-[facility] HospitalYubpnjvpev18-60-9799 10:35-0400Diastolic blood fmymsnnb06 mm[Hg]Abad Jesika DO Work Phone: [phone]-[facility]ly [facility] HospitalDuamqbfwpn03-88-7721 10:35-0400Systolic blood lojqmgxw396 mm[Hg]Abad Jesika DO Work Phone: [phone]-[facility] HospitalPcigjxgwjb89-49-9601 10:37-0400Body mass index (BMI) [Ratio]33.31 kg/m2Amy Gregorio PA Work Phone: [facility] HospitalWekdsofsjj33-57-7424 10:37-0400Body wlzauj36.62 kgShagufta Perkins PA Work Phone: [facility] HospitalHuzdsvgkpx66-61-9177 10:37-0400Diastolic blood mm[Hg]Shagufta Perkins PA Work Phone: [facility] HospitalEffrfigsug20-21-9604 10:37-0400Systolic blood ivqtjisy072 mm[Hg]Shagufta Perkins PA Work Phone: [phone] [place], [place] [address]Pchqqyhmzg51-09-2077 08:55-0400Body mass index (BMI) [Ratio]33.25 kg/g0Actax Jesika DO Work Phone: [facility] HospitalCqlcvlqrbh0142 08:55-0400Body aqruse88.44 kgCorey Jesika DO Work Phone: [facility] HospitalHfuzndbgjp46-32-0701 08:55-0400Diastolic blood mm[Hg]Abad Jesika DO Work Phone: [phone] [place], [place] [address]Agosgwsrav76-13-1328 08:55-0400Systolic blood iwsckiku570 mm[Hg]Abad Jesika DO Work Phone: [facility] HospitalNpwcozklpu25-16-1389 09:14-0400Body mass index (BMI) [Ratio]33.89 kg/f0QjyjbzksSay Roy NURSE RECRUITER Work Phone: [facility] HospitalVzfwrageos18-34-0567 09:14-0400Body vdpuhu20.25 kgSay Friedmanly NURSE RECRUITER Work Phone: [facility] HospitalJrjbptawhy50-04-7025 09:14-0400Diastolic blood xftjsavd14 mm[Hg]Say Roy NURSE RECRUITER Work Phone: [facility] HospitalBzxkoghfjz82-45-1503 09:14-0400Systolic blood hwlyxjpv054 mm[Hg]Say Roy NURSE RECRUITER Work Phone: [phone]-[facility]ly [facility] HospitalOzarks Community HospitalYfaffwdmie08-05-3103 11:00-0400Body mass index (BMI) [Ratio]35.32 kg/v4Wpvgj Jesika DO Work Phone: [facility] HospitalPmvvukfknw26-46-5564 11:00-0400Body hazhkh93.25 kgCorey Jesika DO Work Phone: [facility] HospitalTrlsbvatpz79-93-9333 11:00-0400Diastolic blood ekmbuohu67 mm[Hg]Abad Jesika DO Work Phone: [facility] HospitalGmzrszhutx61-92-4118 11:00-0400Systolic blood qashbali339 mm[Hg]Abad Jesika DO Work Phone: [facility] HospitalIwstzcwayf03-71-5791 14:07-0400Body phejwu851.64 [facility]-2024 14:07-0400Body mass index (BMI) [Ratio]35.9 kg/v7RhbuoltjrC[facility] Clinic [facility]07-19-2024 14:07-0400Body qygzoi779.15 [facility]07-19-2024 14:07-0400Diastolic blood jkjqkldi87 mm[Hg][facility]07-19-2024 14:07-0400 Heart zxeu553 /[facility]07-19-2024 14:07-0400Systolic blood gzazhxbg253 mm[Hg][facility]04-25-2024 15:18-0400 Body gwbtuu831.64 cmC[facility]04-25-2024 15:18-0400Body mass index (BMI) [Ratio]36.8 kg/f4JehknmncmC[facility]04-25-2024 15:18-0400Body .41 [facility]04-25-2024 15:18-0400Diastolic blood qoiocylb522 mm[Hg][facility] 12-05-2023 15:18-0400Heart rate94 /[facility] 12-05-2023 15:18-0400Systolic blood qebyduhz139 mm[Hg][facility]12-22-2023 11:56-0500Body vvyhdu663.7 cmAnnel Teresa APRN-DRAFTING CLERK Work Phone: [facility]12-22-2023 11:56-0500Body mass index (BMI) [Ratio]35.18 kg/m2Annel JACOBDRAFTING CLERK Work Phone: [facility]12-22-2023 11:56-0500Body ttfoblfkfhq59.2 [degF]Annel JACOBDRAFTING CLERK Work Phone: [facility]12-22-2023 11:56-0500Body rphuiq106.96 kgAnnel Teresa APRNClaribelDRAFTING CLERK Work Phone: [facility]12-22-2023 11:56-0500Diastolic blood ydfxknej75 mm[Hg]Annel JACOBDRAFTING CLERK Work Phone: [facility]12-22-2023 11:56-0500Heart rate 91 /minAnnel Teresa APRNClaribelDRAFTING CLERK Work Phone: [facility] [place]12-22-2023 11:56-3918EhW0% (BldA) [Mass fraction]99 %Annel JACOBDRAFTING CLERK Work Phone: [facility]12-22-2023 11:56-0500Systolic blood mm[Hg]Annel JACOBDRAFTING CLERK Work Phone: [facility]Club 42cm [facility] Encounters Encounter DateEncounter TypeCare ProviderFacilityStart: 06-21-2025 End: 34-75-4534Uylxsktr flow sheetCorey Jesika DO Work Phone: [facility] OBGYNComment on above:28 weeks gestation of ([facility] Third trimester [facility] induced hypertension, antepartum ([facility]-H[facility])Start: 06-21-2025 End: 58-82-7662ycaihegweiXPMCX FAZIONot AvailableStart: 06-08-2025 End: 15-31-9129Jctxyz flowsheetAmy Gregorio MIX Work Phone: [facility] [place] OBGYNStart: 06-08-2025 End: 52-24-8321Hcface flowsheetShagufta MIX Work Phone: [facility] [place] OBGYNStart: 06-08-2025 End: 25-69-6863Powkib outpatient visit 15 minutesShagufta MIX Work Phone: [facility] OBGYNComment on above: size inconsistent with dates ([facility]) (Primary Dx); 28 weeks gestation of ([facility]); Second trimester ([facility])Start: 06-08-2025 End: 61-46-8554jncntnklntHZH RAMEYNot AvailableStart: 05-12-2025 End: 29-33-4707Yxjdcd flowsMaria Isabel Roy NP Work Phone: [facility]YNStart: 05-12-2025 End: 27-58-4553Ssnkrh flowsMaria Isabel Roy NP Work Phone: [facility]Start: 05-12-2025 End: 98-52-1957Kxtfxign flow sheetSay Roy NP Work Phone: [facility]BGYNComment on above:24 weeks gestation of ([facility]); Second trimester ([facility]); Diabetes mellitus screeningStart: 05-12-2025 End: 94-94-3793rvozuqahxbREWKQZWQ EBERLYNot AvailableStart: 04-15-2025 End: 34-66-3542Bzltzr flowsheetCorey Jesika DO Work Phone: [facility]BGYNStart: 04-15-2025 End: 84-53-9047Obtzdk flowsheetCorey Jesika DO Work Phone: [facility] OBGYNStart: 04-15-2025 End: 44-23-5514Tumhlrelw Result EncounterCorey Jesika DO Work Phone: NOMS External Department UnsolicitedStart: 04-15-2025 End: 75-86-2845Trocnuls preventive med est patient 18-39 yrsCorey Jesika DO Work Phone: [facility] [place] OBGYNComment on above:Second trimester ([facility]); 21 weeks gestation of ([facility]); Nausea and vomiting during ([facility]); Vaginal discharge during , antepartum ([facility])Start: 04-15-2025 End: 47-66-1927tsohljlcmvZOGPS FAZIONot AvailableStart: 04-08-2025 End: 60-37-9576vawobvzeswULV RAMEYNot AvailableStart: 03-18-2025 End: 73-02-9942Mexzmwxwf Result EncounterShagufta MIX Work Phone: noms External Department UnsolicitedStart: 03-18-2025 End: 01-84-1104Yfzizvcy Result EncounterShagufta MIX Work Phone: noms External Department UnsolicitedStart: 03-18-2025 End: 14-54-4503Nnvdppuu Result EncounterShagufta Gregorio MIX Work Phone: noms External Department UnsolicitedStart: 03-18-2025 End: 30-66-6281Veohffsh flow sheetShagufta Greenbush PA Work Phone: [facility] [place] OBGYNComment on above:17 weeks gestation of ([facility]); Second trimester ([facility]); Subchorionic hematoma in first trimester, single or unspecified fetus ([facility]); Screening, , for anatomic survey ([facility]); Exposure to STD; Vaginal dischargeStart: 03-18-2025 End: 14-70-0889wfybfamtxnALZ RAMEYNot AvailableStart: 03-04-2025 End: 37-53-7800cbkhjjfknzCFKDXWU Isaac LARAScci Hospital [facility] HospitalStart: 03-04-2025 End: 39-19-8150Cutsnttdky hospital visit by Fide Sanford CNP Work Phone: [facility] LABStart: 02-18-2025 End: 52-89-3473Bnprgu flowsheetCorey Jesika DO Work Phone: [facility] BCP OBStart: 02-18-2025 End: 16-44-9448Gxxgka flowsheetCorey Jesika DO Work Phone: [facility] BCP OBStart: 02-18-2025 End: 17-68-2462cdwljeorbhVZPBN FAZIONot AvailableStart: 02-18-2025 End: 87-84-2637Igpvcvwn flow sheetCorey Jesika DO Work Phone: NOMS BCP OBComment on above:Second trimester ([facility]); 13 weeks gestation of ([facility])Start: 02-11-2025 End: 77-76-7911Tuinzmxeg Result EncounterCorey Ejsika DO Work Phone: NOMS External Department UnsolicitedStart: 02-11-2025 End: 75-08-4099Cwtgpmbhv Result EncounterCorey Jesika DO Work Phone: NOMS External Department UnsolicitedStart: 01-21-2025 End: 42-84-6100Aslpjuwlm Result EncounterCorey Jesika DO Work Phone: NOMS External Department UnsolicitedStart: 01-21-2025 End: 89-89-5929Ksycrvjwo Result EncounterCorey Jesika DO Work Phone: noms External Department UnsolicitedStart: 01-21-2025 End: 57-61-0017Wdskwo outpatient visit 5 minutesNoms Bcp Ob Jesika NurseNOMS BCP OBComment on above:GA: 9w0wBxsue: 01-21-2025 End: 04-89-0220gdgdqtvlziFWFEP FAZIONot AvailableStart: 01-13-2025 End: 47-41-2892Isrbse flowsheetSay Roy NURSE RECRUITER Work Phone: [facility] BCP OBStart: 01-13-2025 End: 59-40-4603Tfsmjo flowsheetSay Roy NURSE RECRUITER Work Phone: [facility] BCP OBStart: 01-13-2025 End: 06-12-6420fxwbyzystgGXSNXDGI EBERLYNot AvailableStart: 01-13-2025 End: 50-01-1245Jmkcej outpatient visit 15 minutesSay Roy NURSE RECRUITER Work Phone: noms [facility] OBComment on above:GA: 8r0fQxqzj: 12-01-2024 End: 75-25-2905Xooiry flowsheetCorey Jesika DO Work Phone: noms BCP OBStart: 12-01-2024 End: 71-18-8558Augnrqywd Result EncounterCorey Jesika DO Work Phone: noms External Department UnsolicitedStart: 12-01-2024 End: 18-93-5810Ckinuhdtg Result EncounterCorey Jesika DO Work Phone: noms External Department UnsolicitedStart: 12-01-2024 End: 36-97-4570Dcicfb outpatient visit 15 minutesCorey Jesika DO Work Phone: noms [facility] OBComment on above:Female infertility; PCOS (polycystic ovarian syndrome); Abnormal uterine bleeding (AUB); Endometriosis; Insulin resistanceStart: 12-01-2024 End: 44-44-1165rkxqhytkykBKCEK FAZIONot AvailableStart: 03-25-2024 End: 01-08-4810Lwnjtnbbv Result EncounterCorey Jesika DO Work Phone: noms External Department UnsolicitedStart: 03-25-2024 End: 37-85-6932Dsifewagi Result EncounterCorey Jesika DO Work Phone: noms External Department UnsolicitedStart: 02-28-2024 End: 92-75-6358tzjlhoyvpeNtzinuglaPeoples Hospital Work Phone: Start: 02-28-2024 End: 11-09-0494Azvftvq [facility]Un[facility] Work Phone: Start: 12-05-2023 End: 60-49-7797zcozadrsgvQiijmysclPeoples Hospital Work Phone: Start: 12-05-2023 End: 57-45-9968Yybqkke encounter procedureUn[facility] Work Phone: Start: 12-03-2023 End: 06-66-7596Teewlcdpi encounterAnnel Ivana Teresa SECURITY SME-DRAFTING CLERK Work Phone: [facility] MedicineStart: 08-02-2023 End: 33-48-1701Uryrfr outpatient visit 15 minutesAnnel Ivana Teresa SECURITY SME-DRAFTING CLERK Work Phone: [facility] Family MedicineComment on above:Acute non-recurrent maxillary sinusitis (Primary Dx); Non-recurrent acute serous otitis media of both ears; Elevated blood pressure readingStart: 01-10-2023 End: 32-99-9454jftihnnelpSMRW [facility] Hospitaltart: 01-10-2023 End: 09-65-3539Wpzvckzdzf hospital visit by physicianAnnel Teresa SECURITY SME - DRILLER'S OFFSIDER Work Phone: [facility] LaboratoryStart: 02-26-2022 End: 07-49-8193uhhdaipdujIY ABAD FAZIOFacility:F5Ppjiw: 40-88-3441Pmyaxcqgj for preprocedural laboratory examinationDR ABAD [facility]y Hospitaltart: 06-30-2021 End: 02-08-7802gusieqpwbuZU ABAD FAZIOFacility:K9Lnuyc: 18-38-0355Tecapkpet for other preprocedural examinationDR ABAD [facility] HospitalStart: 06-27-2021 End: 39-07-9280vpdlxbfsdlNU ABAD FAZIOFacility:L5Jkyvk: 06-27-2021 End: 46-25-4377Ktsrkezty for preprocedural laboratory examinationDR ABAD JESIKA Facility:E7Hsscf: 06-21-2021 End: 02-71-0681abxpaybqciHB ABAD FAZIOFacility:I6Iuisu: 06-21-2021 End: 72-69-9853Jrlhdwkfo for other preprocedural examinationDR [facility] Facility:H1 Procedures DateProcedureProcedure DetailPerforming ClinicianStart: 83-39-5634Pmnqu dip stick/tablet rgnt non-auto w/o micrscpCorey Jesika DO Work Phone: Start: 30-73-5308Rbggj dip stick/tablet rgnt non-auto w/o micrscpAmy Gregorio MIX Work Phone: Start: 86-39-0478Myqsb dip stick/tablet rgnt non-auto w/o micrscpKrkylah Roy NP Work Phone: Start: 16-39-7469OPB,APTIMA HPV,AGE GDLNCorey Jesika DO Work Phone: Start: 82-31-0685PCH, SERUM, OPEN SPINA BIFIDAAmaria alejandra MIX Work Phone: Start: 29-09-7954LTJZPPSLB VAGINITIS (HTRX)Shagufta MIX Work Phone: Start: 95-21-8901Srlki dip stick/tablet rgnt non-auto w/o micrscpAmy Gregorio MIX Work Phone: Start: 15-94-6915Oqibm dip stick/tablet rgnt non-auto w/o micrscpCorey Jesika DO Work Phone: Start: 74-12-3917HC OB TRANSVAGINALCorey Jesika DO Work Phone: Start: 94-83-2563QDO HEMOGLOBIN R3ZVqqtw Jesika DO Work Phone: Start: 01-21-2025 End: 95-83-6514Spjty dip stick/tablet rgnt non-auto w/o micrscpCorey Jesika DO Work Phone: Start: 27-70-2391Mbbua dip stick/tablet rgnt non-auto w/o micrscpKrkylah Roy NURSE RECRUITER Work Phone: Start: 47-80-2234BUW CBC WITH AUTO DIFFCorey Jesika DO Work Phone: Start: 12-01-2024 End: 66-85-5459Dwlqo dip stick/tablet rgnt non-auto w/o micrscpCorey Jesika DO Work Phone: Start: 72-56-8011AYK,APTIMA HPV,AGE GDLNCorey Jesika DO Work Phone: Start: 99-65-0769Wxgvk depression screening assessment Annel Teresa SECURITY SME-DRAFTING CLERK Work Phone: Start: 23-02-2973Gfvzsbyigst observation [Identifier] in Cervix by Cyto stainAnnel Teresa SECURITY SME-DRAFTING CLERK Work Phone: Start: 96-01-3029Gntrqgjphagls metabolic panelUnknown Provider Result Plan of Treatment DateCare ActivityDetailAuthorStart: 14-80-2841Bgorsjefy for malignant neoplasm of cervixPap SmearProFive [facility] SystemStart: 07-06-2025 End: 75-09-3950Ldxukuq encounter tynfooizn05/25/2025 10:40 AM EST Routine [facility] [address] [place] [phone] Abad Canchola DO [address] [place] [address] NOMFatimah [place] OBGYNStart: 06-28-2025 End: 79-30-9554Somxmxu encounter kcjaxiixa71/17/2025 3:30 PM EST Routine [facility] [address] [place], [id number] Say Roy, NURSE RECRUITER [address] [place] [phone] NOMFatimah [place] OBGYNStart: 06-21-2025 End: 97-46-0255Iaerptf encounter gqclraqvu01/10/2025 3:30 PM EST Routine [facility] [address] [place], [place] Abad Canchola DO [address] [place] [address] [facility] [place] [facility]BGYNStart: 06-21-2025 End: 74-07-7111Xlbajloaxcil / ancillary services ghhymwvudc83/10/2025 3:00 PM EST Ancillary Procedure [facility] [address] [phone] [facility] [place] [facility]BGYNStart: 06-21-2025 End: 40-83-2234Occxfxg aminotransferase [Enzymatic activity/volume] in Serum or PlasmaALT Lab Routine induced hypertension, antepartum ([facility]) Expected: 06/21/2025 (Approximate), Expires: 06/21/2026NOW[facility] HealthcareComment on above:Expected: 06/21/2025 (Approximate), Expires: 06/21/2026Start: 06-21-2025 End: 76-65-9595Hoyetwxjc aminotransferase [Enzymatic activity/volume] in Serum or PlasmaAST Lab Routine induced hypertension, antepartum ([facility]-HCC) Expected: 06/21/2025 (Approximate), Expires: 06/21/2026[facility] HealthcareComment on above:Expected: 06/21/2025 (Approximate), Expires: 06/21/2026Start: 06-21-2025 End: 90-84-1387JWH W Auto Differential panel - BloodCBC and differential Lab Routine induced hypertension, antepartum ([facility]-HCC) Expected: 06/12 (Approximate), Expires: 06/21/2026NOW[facility] HealthcareComment on above: Expected: 06/21/2025 (Approximate), Expires: 06/21/2026Start: 06-21-2025 End: 12-33-2625Yeeinvdndi [Mass/volume] in Serum or PlasmaCreatinine Lab Routine induced hypertension, antepartum ([facility]-HCC) Expected: 06/21/2025 (Ap proximate), Expires: 06/21/2026[facility] Work Phone: comment on above:Expected: 06/21/2025 (Approximate), Expires: 06/21/2026Start: 06-21-2025 End: 13-70-7042Lvzftzk dehydrogenase [Enzymatic activity/volume] in Serum or Plasma by Lactate to pyruvate reactionLactate dehydrogenase Lab Routine induced hypertension, antepartum ([facility]-HCC) Expected: 06/21/2025, Expires: 06/21/2026[facility] HealthcareComment on above:Expected: 06/21/2025, Expires: 06/21/2026Start: 06-21-2025 End: 35-64-1455Hqogrjx, urine, 24 hourProtein, urine, 24 hour Lab Routine induced hypertension, antepartum ([facility]-HCC) Expected: 06/21/2025 (Approximate), Expires: 06/21/2026[facility] HealthcareComment on above:Expected: 06/21/2025 (Approximate), Expires: 06/21/2026Start: 06-21-2025 End: 27-14-6917Ic and pttPt and ptt Lab Routine induced hypertension, antepartum ([facility]-HCC) Expected: 06/21/2025, Expires: 06/21/2026[facility] Healthcare Comment on above:Expected: 06/21/2025, Expires: 06/21/2026Start: 06-21-2025 End: 83-09-3622Amnwk [Mass/volume] in Serum or PlasmaUric acid Lab Routine induced hypertension, antepartum ([facility]HS-HCC) Expected: 06/21/2025 (Hilary roximate), Expires: 06/21/2026[facility] HealthcareComment on above:Expected: 06/21/2025 (Approximate), Expires: 06/21/2026Start: 06-21-2025 End: 95-45-7207Ewik nitrogen [Mass/volume] in Serum or PlasmaBUN Lab Routine induced hypertension, antepartum ([facility]-HCC) Expected: 06/21/2025, Expires:06/21/2026[facility] HealthcareComment on above:Expected: 06/21/2025, Expires: 06/21/2026Start: 06-08-2025 End: 97-81-6707RS for pregnancyUS OB follow up transabdominal approach Imaging Routine size inconsistent with dates ([facility]) Expected: 06/08/2025, Expires: 10/09/2025[facility] Work Phone: comment on above:Expected: 06/08/2025, Expires: 10/09/2025Start: 06-08-2025 End: 89-85-0740Pgskqbz encounter rurtzmmir62/28/2025 8:30 AM EDT Routine [facility] [address] [place], [phone] Shagufta Perkins PA [address] [place], [place] [phone] ArrivedNO Logan OBGYNComment on above:ArrivedStart: 05-12-2025 End: 91-14-2467XOM panel - Blood by Automated countCBC Lab Routine Diabetes mellitus screening Expected: 05/12/2025 (Approximate), Expires: 05/12/2026[facility] Work Phone: comment on above:Expected: 05/12/2025 (Approximate), Expires: 05/12/2026Start: 05-12-2025 End: 57-91-0572Edgsbfgenir of glucose 1 hour after glucose challenge for glucose tolerance testGlucose tolerance, 1 hour Lab Routine Diabetes mellitus screening Expected: 05/12/2025 (Approximate), Expires: 05/12/2026[facility] HealthcareComment on above:Expected: 05/12/2025 (Approximate), Expires: 05/12/2026Start: 05-12-2025 End: 01-33-8877Qcrcsna encounter procedureNOMS Ford OBGYNComment on above: ArrivedStart: 04-15-2025 End: 59-56-3944Iqqukxh encounter procedureNOMS Logan OBGYNComment on above: ArrivedStart: 62-70-4917BZXPP-19 Vaccine ( season)COVID-19 Vaccine ( season)NOMS HealthcareStart: 10-58-1246Fhfelktbn vaccinationNOWA HealthcareStart: 04-08-2025 End: 30-51-0466Ddeffjahvzqh / ancillary services rphhtyarod82/28/2025 8:00 AM EDT Ancillary Procedure [facility] [place] [facility] [address] [place] [phone] [facility]YNStart: 04-05-2025 End: 08-77-0360Mnlxjvx encounter vrwyrajry93/25/2025 10:20 AM EDT Office Visit [facility] [address] [place] [phone] Abad Cancohla DO [address] [place] [address] NOMS BCP OBStart: 03-18-2025 End: 13-21-6095Mpest fetoprotein, maternalAlpha fetoprotein, maternal Lab Routine 17 weeks gestation of ([facility]) Second trimester ([facility]) Expected: 03/18/2025 (Approximate), Expires: 04/18/2025[facility] Comment on above:Expected: 03/18/2025 (Approximate), Expires: 04/18/2025Start: 03-18-2025 End: 31-52-2500TN for pregnancyUS OB 14+ weeks anatomy scan Imaging Routine Screening, , for anatomic survey ([facility]) Expected: 03/18/2025, Expires: 06/18/2025[facility] HospitalComment [facility] above:Expected: 03/18/2025, Expires: 06/18/2025Start: 03-18-2025 End: 64-18-6438Nofnpjw encounter pjzahnfxr99/07/2025 10:30 AM EDT Routine [facility] [address] [place] [phone] Shagufta Perkins PA [address] [place], [place] [phone] NOMS BCP OBStart: 03-18-2025 End: 44-47-5525Ulgjfzygwdiy / ancillary services aixexfwmtc58/07/2025 10:00 AM EDT Ancillary Procedure [facility] [address] [place] [phone] NOMS BCP OBStart: 60-75-1262Dkdexnkjl vaccinationFlu vaccine (#1)Huseyin [facility] CenterStart: 02-18-2025 End: 93-56-9874Jzpjtuf encounter sfpcnuvvf15/10/2025 8:40 AM EDT Routine [facility] [address] [address] Abad Canchola, [address] [place] [address] NOMS BCP OBStart: 01-21-2025 End: 01-79-3388CWD/RhABO/Rh Lab Routine Missed menses , unspecified gestational age ([facility]) Expected: 01/21/2025 (Approximate), Expires: 01/21/2026[facility] HealthcareComment on above:Expected: 01/21/2025 (Approximate), Expires: 01/21/2026Start: 01-21-2025 End: 87-32-6179adnihrinvo51/12/2025 2:00 PM EDT Initial NOMS [address] [place] [address] NOMS BCP OBStart: 01-21-2025 End: 70-83-3425Rtgmy type and Indirect antibody screen panel - BloodType and screen Lab Routine Missed menses , unspecified gestational age ([facility]) Expected: 01/21/2025 (Approximate), Expires: 01/21/2026[facility] Work Phone: comment on above:Expected: 01/21/2025 (Approximate), Expires: 01/21/2026Start: 01-21-2025 End: 73-72-7054Hudmx of abuse panel - Urine by Screen methodRapid drug screen, urine Lab Routine , unspecified gestational age ([facility]) Encounter for supervision of normal first in first trimester ([facility]) Expected: 01/21/2025 (Approximate), Expires: 01/21/2026NOMS HealthcareComment on above: Expected: 01/21/2025 (Approximate), Expires: 01/21/2026Start: 01-21-2025 End: 03-40-1711Isokqxhqkgmi / ancillary services gkfdymbyby15/12/2025 1:30 PM EDT Ancillary Procedure N[facility] OB [address] [address] XEEX BCP OBStart: 12-17-2024 End: 03-41-6374Lxsbscsuqmee / ancillary services inoowwgisg00/08/2025 8:00 AM EDT Ancillary Procedure N[facility] [address] [place] [place] [address] PBYS BCP OBStart: 12-01-2024 End: 94-32-6393Eymamfuesnorn hormone (AMH)Antimullerian hormone (AMH) Lab Routine Abnormal uterine bleeding (AUB) Endometriosis Expected: 12/01/2024 (Approximate), Expires: 12/01/2025NOMS HealthcareComment on above:Expected: 12/01/2024 (Approximate), Expires: 12/01/2025Start: 12-01-2024 End: 64-75-3586TMTYEWEO Lab Routine PCOS (polycystic ovarian syndrome) Expected: 12/01/2024 (Approximate), Expires: 12/01/2025NOMS HealthcareComment on above: Expected: 12/01/2024 (Approximate), Expires: 12/01/2025Start: 12-01-2024 End: 65-26-3570SU PelvisUS Pelvis w/ TV Imaging Routine PCOS (polycystic ovarian syndrome) Expected: 12/01/2024, Expires: 12/01/2025NOMS HealthcareComment on above:Expected: 12/01/2024, Expires: 12/01/2025Start: 09-59-2715Ngjbp BMI ScreeningAdult BMI ScreeningProWayne HealthCare Main Campustart: 13-46-9882Iswfqdfpme ScreeningDepression ScreeningHenry County Hospital SystemStart: 44-38-7228Obbysws ScreeningTobacco ScreeningHenry County Hospital SystemStart: 59-35-7170VLIXA-19 Vaccine ( season)COVID-19 Vaccine ( season)Huseyin Ennis [facility] HealthStart: 31-04-4551Lfywmsqhr vaccinationNOWA HealthcareStart: 93-60-9733Bdbty BMI Follow Up PlanAdult BMI Follow Up PlanHenry County Hospital SystemStart: 05-94-8954Qamrr BMI ScreeningAdult BMI ScreeningHenry County Hospital SystemStart: 22-09-0019Qqrmacwrj for Chlamydia trachomatisChlamydia Screening [facility] CampusComment on above:Postponed from 1999 (Not Indicated)Start: 39-20-6932Upvlqdirp vaccinationInfluenza VaccineHenry County Hospital SystemStart: 24-07-1956Hurfiqeky vaccinationFlu vaccine (Season Ended) WYANDOTStart: 97-34-6841YPaT,Tdap and Td Vaccines (7 - Td or Tdap)DTaP,Tdap and Td Vaccines (7 - Td or Tdap)[facility] SystemStart: 98-62-2234XTnD/Tdap/Td vaccine (1 - Tdap)DTaP/Tdap/Td vaccine (1 - Tdap)WYANDOTStart: 2018 Hepatitis B Vaccines (1 of 3 - 19+ 3-dose series)Hepatitis B Vaccines (1 of 3 - 19+ 3-dose series)NOMS HealthcareStart: 83-60-7076XEG Vaccines (1 - 3-dose series)HPV Vaccines (1 - 3-dose series)NOMS HealthcareStart: 92-62-5303Jzlrptt of varicella vaccinationVaricella Vaccines (1 of 2 - 13+ 2-dose series)NOMS HealthcareStart: 77-83-8617TIoS/Tdap/Td Vaccines (1 - Tdap)DTaP/Tdap/Td Vaccines (1 - Tdap)[facility]OMS HealthcareStart: 20-04-4586VHP Vaccines (1 of 1 - Standard series)MMR Vaccines (1 of 1 - Standard series)NOMS HealthcareStart: 03-20-2000 COVID-19 Vaccine (#1)COVID-19 Vaccine (#1)WYANDOTBacteria identified in Urine by CultureUrine culture Microbiology Routine Missed menses Ordered: 01/21/2025[facility] HealthcareComment on above:Ordered: 01/21/2025BC W Auto Differential panel - BloodCBC and differential Lab Routine PCOS (polycystic ovarian syndrome) Ordered: 12/01/2024[facility] HealthcareComment on above:Ordered: 12/01/2024BC W Auto Differential panel - BloodCBC and differential Lab Routine Missed menses , unspecified gestational age ([facility]) Ordered: 01/21/2025[facility] HealthcareComment on above:Ordered: 01/21/2025HLAMYDIA TRACHOMATIS (GENITO/STI) CHLAMYDIA TRACHOMATIS (GENITO/STI) Lab Routine Exposure to STD Ordered: 03/18/2025[place] HealthcareComment on above:Ordered: 03/18/2025HLAMYDIA TRACHOMATIS (GENITO/STI)CHLAMYDIA TRACHOMATIS (GENITO/STI) Lab Routine Vaginal discharge during , antepartum ([facility]) Ordered: 04/15/2025[facility] HealthcareComment on above:Ordered: 04/15/2025ytology Cervical or vaginal smear or scraping studyPap Smear Pathology and Cytology Routine Second trimester ([facility]) 21 weeks gestation ofpregnancy ([facility]) Ordered: 04/15/2025 [facility] Work Phone: comment on above:Ordered: 04/15/2025DHEA-sulfateDHEA- sulfate Lab Routine PCOS (polycystic ovarian syndrome) Ordered: 12/01/2024[facility] HealthcareComment on above:Ordered: 12/01/2024Follicle stimulating hormone Follicle stimulating hormone Lab Routine PCOS (polycystic ovarian syndrome) Ordered: 12/01/2024[facility] HealthcareComment on above:Ordered: 12/01/2024hCG, quantitative, pregnancyhCG, quantitative, Lab Routine PCOS (polycystic ovarian syndrome) Ordered: 12/01/2024[facility] Work Phone: comment on above:Ordered: 12/01/2024Hemoglobin A1c/Hemoglobin.total in BloodHemoglobin A1c Lab Routine Abnormal uterine bleeding (AUB) Endometriosis Ordered: 12/01/2024[facility] HealthcareComment on above: Ordered: 12/01/2024Hemoglobin A1c/Hemoglobin.total in BloodHemoglobin A1c Lab Routine Missed menses , unspecified gestational age ([facility]) Ordered: 01/21/2025[facility] HealthcareComment on above:Ordered: 01/21/2025Hepatitis B virus surface Ag [Presence] in Serum or Plasma by ImmunoassayHepatitis B surface antigen Lab Routine Missed menses , unspecified gestational age ([facility]) Ordered: 01/21/2025[facility] HealthcareComment on above:Ordered: 01/21/2025 Hepatitis C virus Ab [Presence] in Serum or Plasma by ImmunoassayHepatitis C antibody Lab Routine Missed menses , unspecified gestational age ([facility]) Ordered: 01/21/2025[facility] HealthcareComment on above:Ordered: 01/21/2025 HIV-1/HIV-2 antigen/antibody combination immunoassayHIV-1 and HIV-2 antibodies Lab Routine Missed menses , unspecified gestational age ([facility]) Ordered: 01/21/2025[facility] HealthcareComment on above:Ordered: 01/21/2025 Luteinizing hormoneLuteinizing hormone Lab Routine PCOS (polycystic ovarian syndrome) Ordered: 12/01/2024[facility] HealthcareComment on above:Ordered: 12/01/2024 Neisseria gonorrhoeae DNA [Presence] in Unspecified specimen by SANJANA with probe detectionNeisseria gonorrhea DNA probe, direct Lab Routine Exposure to STD Ordered: 03/18/2025[facility] HealthcareComment on above:Ordered: 03/18/2025Neisseria gonorrhoeae DNA [Presence] in Unspecified specimen by SANJANA with probe detection Neisseria gonorrhea DNA probe, direct Lab Routine Vaginal discharge during , antepartum ([facility]) Ordered: 04/15/2025[facility] HealthcareComment on above:Ordered: 04/15/2025Protein/Creatinine [Mass Ratio] in Urine Protein:Creatinine Ratio, Urine Lab Routine induced hypertension, antepartum ([facility]) Ordered: 06/21/2025[facility] HealthcareComment on above:Ordered: 06/21/2025 End: [id number] [facility] Phone: Comment on above:Once for 1 Occurrences starting 03/04/2025 until 03/04/2025Reagin Ab [Presence] in Serum by RPRRPR Lab Routine Missed menses , unspecified gestational age ([facility]) Ordered: 01/21/2025[facility] HealthcareComment on above:Ordered: 01/21/2025Rubella antibody, IgGRubella antibody, IgG Lab Routine Missed menses , unspecified gestational age ([facility]) Ordered: 01/21/2025[facility] HealthcareComment on above: Ordered: 01/21/2025SURESWAB(R) ADVANCED VAGINITIS PLUS, TMASURESWAB(R) ADVANCED VAGINITIS PLUS, TMA Pathology and Cytology Routine Vaginal discharge Ordered: 0 03/18/2025[facility] Work Phone: comment on above:Ordered: 03/18/2025SURESWAB(R) ADVANCED VAGINITIS PLUS, TMASURESWAB(R) ADVANCED VAGINITIS PLUS, TMA Pathology and Cytology Routine Vaginal discharge during , antepartum ([facility]) Ordered: 04/15/2025[facility] HealthcareComment on above:Ordered: 04/15/2025 Thyrotropin [Units/volume] in Serum or PlasmaTSH Lab Routine PCOS (polycystic ovarian syndrome) Ordered: 12/01/2024[facility]:Ordered: 12/01/2024Thyroxine (T4) free [Mass/volume] in Serum or PlasmaT4, free Lab Routine PCOS (polycystic ovarian syndrome) Ordered: 12/01/2024[facility] Comment on above:Ordered: 12/01/2024 Immunizations Immunization DateImmunizationNotesCare MhvuosxoMomxjphj39-10-3541lwsmptzww, injectable, quadrivalent, preservative freeMary Kuns SECURITY SME-DRAFTING CLERK Work Phone: [facility] CenterWoicdp34-42-7574clnugxkbl virus vaccine, unspecified formulationMary Kuns SECURITY SME-DRAFTING CLERK Work Phone: [facility] CampusUnkplh13-75-6905BKTWO-12, mRNA, LNP- S, PF, 100mcg/0.5mL DoseMary Kuns SECURITY SME-DRAFTING CLERK Work Phone: [facility] CampusQsshnx06-61-6824LXRMX-83, mRNA, LNP- S, PF, 100mcg/0.5mL DoseAnnel Teresa SECURITY SME-DRAFTING CLERK Work Phone: [facility] CampusOfbbyo13-74-9927vamwtleyz, injectable, quadrivalent, preservative freeAnnel Teresa SECURITY SME-DRAFTING CLERK Work Phone: [facility] CampusUkbfje71-45-6486kiznipmmg A vaccine, pediatric/adolescent dosage, 2 dose scheduleAnnel Teresa SECURITY SME-DRAFTING CLERK Work Phone: [facility]07-28-2017Human Papillomavirus 9-valent vaccineAnnel Teresa SECURITY SME-DRAFTING CLERK Work Phone: [facility] CampusHblvbs50-14-7397ugkcyqdtlsjsz oligosaccharide (groups A, C, Y and W-135) diphtheria toxoid conjugate vaccine (MCV4O)Annel Teresa SECURITY SME-DRAFTING CLERK Work Phone: [facility]10-30-2012human papilloma virus vaccine, quadrivalentAnnel Teresa SECURITY SME-DRAFTING CLERK Work Phone: [facility] UIBLUEPRINT Cmdoxk56-30-1358ajrrrwrieqryj polysaccharide (groups A, C, Y and W-135) diphtheria toxoid conjugate vaccine (MCV4P)Annel Teresa SECURITY SME-DRAFTING CLERK Work Phone: [facility] CampusUlsced41-18-6263rcaidtndt virus vaccineAnnel Teresa SECURITY SME-DRAFTING CLERK Work Phone: [facility] CampusFqtify45-84-2020ibliutbsy A vaccine, pediatric/adolescent dosage, 2 dose scheduleAnnel Teresa SECURITY SME-DRAFTING CLERK Work Phone: [facility]09-12-2012human papilloma virus vaccine, quadrivalentAnnel Teresa SECURITY SME-DRAFTING CLERK Work Phone: [facility]09-12-2012tetanus toxoid, reduced diphtheria toxoid, and acellular pertussis vaccine, adsorbedAnnel Teresa SECURITY SME-DRAFTING CLERK Work Phone: [facility] CampusZxorqc38-78-2995gupkzpjdlj, tetanus toxoids and acellular pertussis vaccine, unspecified 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 Teresa SECURITY SME-DRAFTING CLERK Work Phone: [facility]07-07-2005measles, mumps and rubella virus vaccineAnnel Teresa SECURITY SME-DRAFTING CLERK Work Phone: [facility] CampusIupdrj89-55-9373hahkyfkcni vaccine, inactivatedAnnel Teresa SECURITY SME-DRAFTING CLERK Work Phone: [facility] CampusVrpqbp79-21-1998pqklzyvspw, tetanus toxoids and acellular pertussis vaccine, unspecified 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 Teresa SECURITY SME-DRAFTING CLERK Work Phone: [facility] CampusXptkdj81-11-1231lkgyvybmosm influenzae type b conjugate and Hepatitis B vaccineAnnel Teresa SECURITY SME-DRAFTING CLERK Work Phone: [facility]04-26-2001measles, mumps and rubella virus vaccineAnnel Teresa SECURITY SME-DRAFTING CLERK Work Phone: [facility] CampusWahrrp14-63-0663afzwygasxw vaccine, inactivatedAnnel Teresa SECURITY SME-DRAFTING CLERK Work Phone: [facility] CampusFyivuk09-43-0943qsziprdho virus vaccineAnnel Teresa SECURITY SME-DRAFTING CLERK Work Phone: [facility] CampusMjdbeo27-68-8220ovmbogndyx, tetanus toxoids and acellular pertussis vaccine, unspecified 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 Teresa SECURITY SME-DRAFTING CLERK Work Phone: [facility] CampusMgjtlf72-02-6468bugmjpfvmlv influenzae type b vaccine, PRP-OMP conjugateAnnel Teresa SECURITY SME-DRAFTING CLERK Work Phone: [facility] CampusIlgmen74-46-5539kmptqeisty, tetanus toxoids and acellular pertussis vaccine, unspecified 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 Teresa SECURITY SME-DRAFTING CLERK Work Phone: [facility] CampusAgbmkq56-16-7476nvpogghhchz influenzae type b conjugate and Hepatitis B vaccineAnnel Teresa SECURITY SME-DRAFTING CLERK Work Phone: [facility] CampusGwbxax91-25-9237hhltxiequy vaccine, inactivatedAnnel Teresa SECURITY SME-DRAFTING CLERK Work Phone: [facility] CampusHswpvy77-27-2183tuthzxyzfz, tetanus toxoids and acellular pertussis vaccine, unspecified 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 Teresa SECURITY SME-DRAFTING CLERK Work Phone: [facility] CampusMfdvwu42-38-6876vhmminiufzj influenzae type b conjugate and Hepatitis B vaccineAnnel Teresa SECURITY SME-DRAFTING CLERK Work Phone: [facility] CampusKonsls01-25-7311adwdsjaesb vaccine, inactivatedAnnel Teresa SECURITY SME-DRAFTING CLERK Work Phone: [facility] Payers DatePayer CategoryPayerPolicy [id number] [place] [employer] [id number] [id number]-9705Hzqiipz Health [id number] [id number] 1.2.840.824001.1.13.239.2.7.3.951965. Medicaid1.2.840.102474.1.13.693.2.7.3.866745.68923-32-9560Udgqdkz Health Insurance1.2.840.632370.1.13.693.2.7.9.372998.815841.26566-02-6680Iffhkec 1.2.840.088891.1.13.693.2.7.3.676[id number] 2.16.840.1.253186.3.57[id number] 2.16.840.1.205690.3.57[id number] 2.16.840.1.223030.3.57[id number] 2.16.840.1.463930.3.57[id number] 2.16.840.1.968487.3.57[id number] 2.16.840.1.387731.3.57[id number] 2.16840.1.382494.3.57[id number] 2.16.840.1.324973.3.57[id number] 2.16.840.1.423869.3.57[id number] 2.16.840.1.635973.3.57[id number] 2.16.840.1.124713.3.57[id number] 2.16.840.1.213668.3.57[id number] 2.16.840.1.379576.3.57[id number] 2.16.840.1.134304.3.57[id number] 2.16.840.1.286437.3.57[id number] 2.16.840.1.371843.3.57[id number] 2.16.840.1.804659.3.57[id number] 2.16.840.1.861820.3.57[id number] 2.16.840.1.126124.3.579.2.386914-45-3053Xsjdaww Health [id number] [id number] EptnzgeyaWQF2316 35q22vus-3098-2e65-45k2-299294843ot4 Social History DateTypeDetailFacilityTobacco smoking status NHISTobacco smoking consumption unknownWYANDOT Work Phone: start: 52-99-8727Dvf Assigned At BirthNot on file [facility] Work Phone: start: 03-03-2023 End: 10-27-1465Cgfncko smoking status NHISNever smoked tobacco (finding) [facility]: 15-91-5102Luc Assigned At BirthFemale [facility]: 03-25-2024 End: 55-15-7775Bmhbyndgr beverage intakeLifetime non-drinker (finding)[facility] HealthcareStart: 03-25-2024 End: 40-31-6148Aycdtvo of Social functionProMediMercy Memorial Hospital SystemStart: 03-25-2024 End: 74-41-2126Zztxywd use panelProGeorgetown Behavioral Hospital SystemStart: 74-74-6374Nkrwcac use and exposureSmokeless tobacco non-userProGeorgetown Behavioral Hospital SystemStart: 94-55-7033Tyatajy intakeEx-drinker (finding)[facility] SystemStart: 96-99-1174Hrp hard is it for you to pay for the very basics like food, housing, medical care, and heatingNot hard at [facility] HospitalClub 42cm SystemStart: 05-04-2022 Gender identityIdentifies as female gender (finding)[facility] Start: 98-80-8262EcxdbrgllCOUEUnity Medical CenterStart: 68-64-2729WqfNmullj (finding)[facility] Clinical Notes 06-30-2021 to 06-21-2025 Note Date & TbdxVcexOxaofubx89-06-7444 History of Present illness Narrative* Cecilia Khan, [employer] HEAD INSPECTOR - 06/21/2025 3:40 PM EST Reason for [...] nursing note reviewed. Exam conducted with a section hand helper present. Vitals: Estimated body mass index is 35.19 kg/m as calculated from the following: Height as of 09/24/19: 5' 6 . Weight as of this encounter: 218 lb. BP: Patient's last menstrual period was 11/19/2024 (approximate). Assessment/Plan ICD-10-CM 1. 28 weeks gestation of ([facility]) Z3A.28 POCT urinalysis dipstick manually resulted 2. Third trimester ([facility]) Z34.93 POCT urinalysis dipstick manually resulted 3. induced hypertension, antepartum ([facility]) O13.9 Creatinine Protein, urine, 24 hour Pt [...] of: Abad Canchola DO documented in this encounterOzarks Community HospitalNnwhpqynys28-24-4936 History of Present illness Narrative* DOMINGUEZ Villagran [...] nursing note reviewed. Exam conducted with a section hand helper present. Vitals: Estimated body mass index is 34.4 kg/m as calculated from the following: Height as of 09/24/19: 5' 6 . Weight as of this encounter: 213 lb 1.9 oz. BP: 124/82 Patient's last menstrual period was 11/19/2024 (approximate). Assessment/Plan ICD-10-CM 1. 28 weeks gestation of ([facility]) Z3A.28 POCT urinalysis dipstick manually resulted 2. Second trimester ([facility]) Z34.92 POCT urinalysis dipstick manually resulted Return [...] behalf of: DOMINGUEZ Villagran documented in this encounterOzarks Community HospitalYgltdpvlbu64-49-7849 History of Present illness Narrative* Say Roy [...] nursing note reviewed. Exam conducted with a section hand helper present. Vitals: Estimated body mass index is 33.25 kg/m as calculated from the following: Height as of 09/24/19: 5' 6 . Weight as of 04/15/25: 206 lb. BP: Patient's last menstrual period was 11/19/2024 (approximate). ASSESSMENT & PLAN ICD-10-CM 1. 24 weeks gestation of ([facility]) Z3A.24 POCT urinalysis dipstick manually resulted 2. Second trimester ([facility]) Z34.92 3. Diabetes mellitus screening Z13.1 CBC [...] of: Say Roy NP documented in this encounterOzarks Community HospitalTaoazdmapw23-40-3795 History of Present illness Narrative* Chelsie Arango [...] nursing note reviewed. Exam conducted with a section hand helper present. Vitals: Estimated body mass index is 33.25 kg/m as calculated from the following: Height as of 09/24/19: 5' 6 . Weight as of this encounter: 206 lb. BP: 116/72 Patient's last menstrual period was 11/19/2024 (approximate). ASSESSMENT & PLAN ICD-10-CM 1. Second trimester ([facility]) Z34.92 Pap Smear 2. 21 weeks gestation of ([facility]) Z3A.21 Pap Smear 3. Nausea and vomiting during ([facility]) O21.9 metoclopramide (Reglan) 10 MG tablet 4. Vaginal discharge during , antepartum ([facility]) O26.899 N89.8 Return OB/Annual Exam: Patient presents [...] of: Abad Canchola DO documented in this encounterOzarks Community HospitalVefssychbe47-24-1249 History of Present illness Narrative* DOMINGUEZ Villagran [...] PLAN ICD-10-CM 1. 17 weeks gestation of ([facility]) Z3A.17 POCT urinalysis dipstick manually resulted Alpha fetoprotein, maternal Alpha fetoprotein, maternal 2. Second trimester ([facility]) Z34.92 POCT urinalysis dipstick manually resulted Alpha fetoprotein, maternal Alpha fetoprotein, maternal 3. Subchorionic hematoma in first trimester, single or unspecified fetus ([facility]) O41.8X10 O46.8X1 4. Screening, , for anatomic survey ([facility]) Z36.89 US OB 14+ weeks anatomy scan [...] behalf of: DOMINGUEZ Villagran documented in this encounterOzarks Community HospitalNrjvhzkiar32-18-1379 Note ADDENDUM #1 Current examination demonstrated an [...] Delivery: 08/26/25 Gestational Age as of 03/18/2025: 31h6j97-75-0991 History of Present illness Narrative* Chelsie Arango [...] nursing note reviewed. Exam conducted with a section hand helper present. Vitals: Estimated body mass index is 33.25 kg/m as calculated from the following: Height as of 09/24/19: 5' 6 . Weight as of this encounter: 206 lb. BP: 124/76 Patient's last menstrual period was 11/19/2024 (approximate). ASSESSMENT & PLAN ICD-10-CM 1. Second trimester ([facility]) Z34.92 POCT urinalysis dipstick manually resulted 2. 13 weeks gestation of ([facility]) Z3A.13 New OB: Patient presents today for [...] or undercooked meat, and stay away from [facility]. Patient has been consulted regarding any further [...] of: Abad Canchola DO documented in this encounterOzarks Community HospitalEiodidrxwx95-19-7675 History of Present illness Narrative* Cris Gross [...] dipstick manually resulted , unspecified gestational age ([facility]) - Type and screen; Future - ABO/Rh; Future - CBC and differential - Hemoglobin A1c - RPR - Rubella antibody, IgG - Hepatitis B surface antigen - Hepatitis C antibody - HIV-1 and HIV-2 antibodies - Rapid drug screen, urine; Future Encounter for supervision of normal first in [facility] - Rapid drug screen, urine; Future Nurse Note: Pt unsure of doing the [place] billion to one lab. Advised if patient changes mind to make sure both labs and [place] done at the same time. PVU. OB [...] or undercooked meat, and stay away from [facility]. Patient has also been advised to not [...] by: Cris Gross MA documented in this encounterOzarks Community HospitalOdayqbofwc19-94-7252 History of Present illness Narrative* Say Roy [...] nursing note reviewed. Exam conducted with a section hand helper present. Vitals: Estimated body mass index is [...] of: Say Roy NP documented in this encounterOzarks Community HospitalQmbhlfgqdb56-46-6059 History of Present illness Narrative* Misa Knight [...] nursing note reviewed. Exam conducted with a section hand helper present. Vitals: Estimated body mass index is [...] of: Abad Canchola DO documented in this encounterSergio Ville [address]Yjjmtozekn38-48-2915 Miscellaneous Notes* Telephone Encounter - Lisa Tijerina - 12/03/2023 8:07 AM EDT ----- Message from YASMINE Singh sent at 03/05/2023 5:31 PM EDT ----- Regarding: wellness exam Due December of - Annel * Telephone Encounter - Lisa Tijerina - 12/03/2023 8:07 AM EDT Patient is switching pcp [facility] Telephone encounter Note* Telephone Encounter - Lisa Tijerina - 12/03/2023 8:07 AM EDT ----- Message from YASMINE Singh sent at 03/05/2023 5:31 PM EDT ----- Regarding: wellness exam Due December of - Annel [facility]04-23-2024 Telephone encounter Note* Telephone Encounter - Lisa Tijerina - 12/03/2023 8:07 AM EDT Patient is switching pcp [facility]12-22-2023 History of Present illness Narrative* TinyYASMINE Valencia [...] YASMINE Singh 08/02/23 1251 documented in this encounterTr[facility]11-19-2021 NoteThe [place], [place] NAME: MEREDITH ANTONIO DATE OF : MEDICAL REC#: [id number] 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 PREOPERATIVE DIAGNOSES: 1. Pelvic pain. 2. Menorrhagia. 3. Dysmenorrhea. POSTOPERATIVE DIAGNOSES: 1. Pelvic pain. 2. Menorrhagia. 3. Dysmenorrhea. 4. Endometriosis posterior cul-de-sac. ANESTHESIA: General. SURGEON: Abad Canchola DO CORPORATE LEGAL SECRETARY: CECILIO Mendoza URINE OUTPUT: Yellow and clear. [...] Abad Canchola DO on 07/03/2021 09:[address] [facility] Signed and Approved by: DR ABAD CANCHOLA . 07/03/2021 09:18:00[facility]Evaluation noteNo assessment information availableKn[facility] Work Phone: Evaluation note* Diagnosis Onset Date Resolution Status Anxiety and depression acute [facility] Work Phone: Evaluation note* Diagnosis Acute non-recurrent maxillary sinusitis- Primary Non-recurrent acute serous otitis media of both ears Elevated blood pressure reading Elevated blood pressure reading without diagnosis of hypertension documented in this encounter [facility]Gl[facility] SystemEvaluation note* Diagnosis Female infertility Female infertility of unspecified origin PCOS (polycystic ovarian syndrome) Polycystic ovaries Abnormal uterine bleeding (AUB) Endometriosis Endometriosis, site unspecified Insulin resistance Other abnormal glucose documented in this encounter [facility] HealthcareEvaluation note* Diagnosis Amenorrhea Absence of menstruation Missed menses , unspecified gestational age ([facility]) Encounter for supervision of normal first in first trimester ([facility]) documented in this encounter [facility] HealthcareEvaluation note* Diagnosis Nausea and vomiting during - Primary Currently in first trimester with unknown gestational age Constipation, unspecified constipation type documented in this encounter [facility]* Diagnosis Second trimester ([facility]) state, incidental 13 weeks gestation of ([facility]) documented in this encounter [facility] HealthcareEvaluation note* Diagnosis 17 weeks gestation of ([facility]) Second trimester ([facility]) state, incidental Subchorionic hematoma in first trimester, single or unspecified fetus ([facility]) Screening, , for anatomic survey ([facility]) Encounter for anatomic survey Exposure to STD Vaginal discharge Leukorrhea, not specified as infective documented in this encounter [facility]* Diagnosis Second trimester ([facility]) state, incidental 21 weeks gestation of ([facility]) Nausea and vomiting during ([facility]) Vaginal discharge during , antepartum ([facility]) documented in this encounter [facility]Evaluation note* Diagnosis 24 weeks gestation of ([facility]) Second trimester ([facility]) state, incidental Diabetes mellitus screening Screening for diabetes mellitus documented in this encounter [facility]Evaluation note* Diagnosis size inconsistent with dates ([facility])- Primary 28 weeks gestation of ([facility]) Second trimester ([facility]) state, incidental documented in this encounter [facility]Evaluation note* Diagnosis 28 weeks gestation of ([facility]) Third trimester ([facility]) state, incidental induced hypertension, antepartum ([facility]) Transient hypertension of , antepartum documented in this encounter [facility] HealthcareInstructionsNot on filedocumented in this encounterProMediMercy Memorial Hospital SystemInstructionsNot on filedocumented in this encounterProGeorgetown Behavioral Hospital System Summary Purpose Family History No [...] and content) DATE CREATED AUTHOR 06/13/2022 [facility] DATE CREATED AUTHOR AUTHOR'S ORGANIZ ATION 08/09/2023 [facility] DATE CREATED AUTHOR AUTHOR'S ORGANIZ ATION 03/07/2025 [facility] DATE CREATED AUTHOR AUTHOR'S ORGANIZ ATION 06/24/2025 [facility] EPIC Care Teams (unrecognized sec tion and content) Team MemberRelationshipSpecialtyStart DateEnd Date Annel Teresa, SECURITY SME - DRILLER'S OFFSIDER [address] [place] [address] [facility] - [facility] Practition[facility]10[facility]23 Team Status: Active Member Role Status [...] DateEnd Date Michelle Pabon MD [address] [place] [id number] PCP - Generalmily Medicine03/25/24Team MemberRelationshipSpecialtyStart DateEnd Date Annel Teresa APRN-DRAFTING CLERK [address] [facility] [place] [address] PCP - GeneralFamily Medicine01/18/20Team MemberRelationshipSpecialtyStart DateEnd Date Michelle Pabon MD [address] [place] [place] [address] PCP - GeneralFamily Medicine03/25/24Team MemberRelationshipSpecialtyStart DateEnd Date Michelle Pabon MD [address] [place] [place] [address] PCP - GeneralFamily Medicine03/25/24Team MemberRelationshipSpecialtyStart DateEnd Date Michelle Pabon MD [address] [place] [place] [address] PCP - GeneralFamily Medicine03/25/24Team MemberRelationshipSpecialtyStart DateEnd Date Michelle Pabon MD [address] [place] [place] [address] PCP - GeneralFamily Medicine03/25/24Team MemberRelationshipSpecialtyStart DateEnd Date Michelle Pabon MD [address] [place] [place] [address] PCP - GeneralFamily Medicine03/25/24Team MemberRelationshipSpecialtyStart DateEnd Date Michelle Pabon MD [address] [place] [place] [address] PCP - GeneralFamily Medicine03/25/24Team MemberRelationshipSpecialtyStart DateEnd Date Michelle Pabon MD [address] [facility] [address] PCP - GeneralFamily Medicine03/25/24Team MemberRelationshipSpecialtyStart DateEnd Date Michelle Pabon MD [address] [place] [place] [address] PCP - GeneralFamily Medicine03/25/24Team MemberRelationshipSpecialtyStart DateEnd Date Michelle Pabon MD [address] [place] [facility] [place] [address] PCP - GeneralFamily Medicine03/25/24Team MemberRelationshipSpecialtyStart DateEnd Date nAnel Teresa APRN - [facility] [address] [place] [address] PCP - GeneralNurse Practitioner01/10/23Team MemberRelationshipSpecialtyStart Date End Date Michelle Pabon MD [address] [place] [facility] [place] [address] PCP - GeneralFamily Medicine03/25/24Team MemberRelationshipSpecialtyStart DateEnd Date Michelle Pabon MD [address] [place] [facility] [place] [address] PCP - GeneralFamily Medicine03/25/24Team MemberRelationshipSpecialtyStart DateEnd Date Michelle Pabon MD [address] [place] [facility] [place] [address] PCP - GeneralFamily Medicine03/25/24Team MemberRelationshipSpecialtyStart DateEnd Date Michelle Pabon MD [address] [place] [facility] [place] [address] PCP - [facility]03/25/24Team MemberRelationshipSpecialtyStart DateEnd Date Michelle Pabon MD [address] [place] [facility] [place] [address] PCP - [facility]03/25/24Te MemberRelationshipSpecialtyStart DateEnd Date Michelle Pabon MD [address] [place] [facility] [place] [address] PCP - [facility]03/25/24Te MemberRelationshipSpecialtyStart DateEnd Date Michelle Pabon MD [address] [place] [facility] [place] [address] PCP - [facility]03/25/24 Goals (unrecognized section and content) Goals [...] BE BASED ON THE PRIMARY CLINICAL RECORDS. [facility]. provides no warranty or guarantee of the accuracy or completeness of information in this document.
--- OUTSIDE RECORDS SUMMARY | 2025-07-09 14:57 | XMS_ITS | Clinical Summary ---
Author Organization [facility] Address [address] [place] [address] Care Team Providers Care Surg Nurse Name Role Phone Michelle Pabon MD Primary Care Provider [phone] Allergies No known active allergies Medications MedicationSigDispense QuantityRefillsLast FilledStart DateEnd DateStatus 27-1 MG tablet Take 1 tablet by mouth DailyActive labetalol (Normodyne) 200 MG tablet Take 1 tablet by mouth in the morning and 1 tablet before bedtime.06/28/2025 Active ondansetron ODT (Zofran-ODT) 4 MG disintegrating tablet Take 4 mg by mouth every 8 (eight) hours if needed for xxzxrq7202/22/2025 06/28/2025Discontinued metoclopramide (Reglan) 10 MG tablet Indications:Nausea and vomiting during ([facility])Take 1 tablet (10 mg) by mouth in [...] 30 mg by mouth DailyDiscontinued Encounters DateTypeDepartmentCare YqxhFlunsgdwwbi61/25/2025 10:40 AM ESTRoutine [facility] [place] [facility] [address] [place] [address] Abad Canchola, Third trimester ([facility]); 32 weeks gestation of ([facility])5Bamboo flowsheet [facility] [place] [facility] [place] [address] Abad Canchola, 06/28/2025 3:30 PM ESTRoutine [facility] [place] [place] [address] Patricia Roy, NELLY Third trimester ([facility]); 31 weeks gestation of ([facility]); Hypertension during in third trimester, unspecified hypertension in type ([facility])5Clinisync Result Encounter [facility]OMS External Department Unsolicited Patricia Roy NP 5Bamb flowsheet [facility] [place] [place] [address] Patricia Roy, NELLY 5Clinisync Result Encounter NOMS External Department Unsolicited Abad Canchola, 06/21/2025 3:40 PM ESTRoutine [facility] [place] [facility] [place] [address] Abad Canchola DO 28 weeks gestation of ([facility]); Third trimester ([facility]); induced hypertension, antepartum ([facility])06/21/2025 3:00 PM EST Ancillary Procedure [facility] [place] [facility] [place] [address] size inconsistent with dates ([facility])06/08/2025 8:30 AM EDTRoutine [facility] [place] [address] [place] [address] Shagufta Perkins PA size inconsistent with dates ([facility]) (Primary Dx); 28 weeks gestation of ([facility]); Second trimester ([facility])06/08/2025amboo flowsheet [facility] [place] [facility] [address] [place] [address] Shagufta Perkins PA 05/12/2025 8:30 AM EDTRoutine [facility] [place] [facility] [address] [place] [address] Patricia Roy, NELLY 24 weeks gestation of ([facility]); Second trimester ([facility]); Diabetes mellitus fnemtbhsw15/01/2025amboo flowsheet [facility] [place] [facility] [address] [place] [address] Patricia Roy, NELLY 05/10/2025Telephone [facility] [place] [facility] [address] [place] [address] Nighat Moyer DE 04/19/2025Results Follow-Up [facility] [address] [place] [address] Edda Whitney LPN IGP,APTIMA HPV,AGE GDLN04/19/2025Orders Only [facility] [facility] [address] [place] [address] Cris Gross MA 04/16/2025bstract [facility] [place] [facility] [address] [place] [address] Nighat Moyer DE 04/16/2025Telephone [facility] [facility] [address] [place] [address] Nighat Moyer DE 04/15/2025 10:10 AM EDTRoutine [facility] [place] [facility] [address] [place] [address] Jesika, Abad, DO Second trimester ([facility]); 21 weeks gestation of ([facility]); Nausea and vomiting during ([facility]); Vaginal discharge during , antepartum ([facility])5Clinisync Result Encounter [facility] External Department Unsolicited Abad Canchola, 5Bamboo flowsheet [facility] [place] [address] [place] [address] JesikaAbad palacios, 04/08/2025 8:00 AM EDTAncillary Procedure [facility] [place] [address] [place] [address] from Last 3 Months Family History Medical HistoryRelationNameCommentsHyperlipidemiaFatherHypertensionFather RelationNameStatusCommentsFatherAliveMotherAlive Social History Tobacco UseTypesPacks/DayYears UsedDateSmoking Tobacco: Never Tobacco Cessation:Counseling Given: Not Answered Alcohol UseStandard Drinks/WeekCommentsNever0 (1 standard drink = 0.6 oz pure alcohol)Estimated Date of CiembyhgRabakiaoIpx77/15/2026Based on last menstrual period of 11/19/2024 (Approximate)Sex and Gender InformationValueDate RecordedSex Assigned at BirthNot on fileLegal JbnMabudk62/15/2023 10:09 PM EDT Gender IdentityNot on fileSexual OrientationNot on file Last Filed Vital Signs Vital SignReadingTime TakenCommentsBlood Xseqqjoi271/8607/06/2025 10:55 AM EST Pulse--Temperature--Respiratory Rate--Oxygen Saturation--Inhaled Oxygen Concentration--Dybczc04.4 kg (217 lb)07/06/2025 10:55 AM ISYRshwsc092.6 cm (5' 6 )09/24/2019 12:00 PM ESTBody Mass Index35.02009/24/2019 12:00 PM EST Plan of Treatment DateTypeDepartmentCare Team (Latest Contact Info)Rvoepujscmw22/09/2025 8:50 AM ESTRoutine [facility] [place] [address] [place] [address] Patricia Roy, NELLY [address] [place] [address] Health MaintenanceDue DateLast DoneCommentsCOVID-19 Vaccine ( season) 502/12/2020, 08/19/2020Influenza Vaccine (#1)/10/2021, 06/03/2020Pneumococcal Vaccine: Pediatrics (0 to 5 Years) and At-Risk Patients (6 to 64 Years)Aged OutNo longer eligible based on patient's age to complete this topic Procedures Procedure NamePriorityDate/TimeAssociated DiagnosisCommentsPOCT URINALYSIS JORZHABGEkvtcyq81/25/2025 11:00 AM EST Third trimester ([facility]) US OB BPP W NON-YHVPWV4806/28/2025 5:27 PM EST POCT URINALYSIS AZJZWRABLtgmanm41/17/2025 4:05 PM EST Third trimester ([facility]) ALL YLMTocbksq97/12/2025 4:19 PM EST CCF XCDHviufxc32/12/2025 4:19 PM EST ALL URIC INRCPcscdqj81/12/2025 4:19 PM EST TBH MOVUHKFWZEUqibism89/12/2025 4:19 PM EST ALL FJLXcnpfsn06/12/2025 4:19 PM EST ALL CBC WITH AUTO WHWUAgpshwr75/12/2025 4:19 PM EST CCF WFVOUcclexi45/12/2025 4:19 PM EST SRMCOH PROTHROMBIN TIME INR W/O EMDOSbiiuzb79/12/2025 4:19 PM EST TBH URINE T PROTEIN CREAT AUAEWNykrilm15/12/2025 4:10 PM EST TBH TOTAL PROTEIN 24 HOUR UZENKZpbdyiw62/12/2025 7:45 AM EST POCT URINALYSIS BZQJNGSCKalfmdl29/10/2025 3:47 PM EST 28 weeks gestation of ([facility]) Third trimester ([facility]) US OB FOLLOW UP TRANSABDOMINAL JWUKYKHLUqjkfkf18/10/2025 3:24 PM EST size inconsistent with dates ([facility]) POCT URINALYSIS DGYMUPIZFvmlcks04/28/2025 8:51 AM EDT 28 weeks gestation of ([facility]) Second trimester ([facility]) POCT URINALYSIS CURBCHFIDunesre36/01/2025 8:42 AM EDT 24 weeks gestation of ([facility]) RECURRENT VAGINITIS (HTRX)Hxnzlto2804/15/2025 11:40 AM EDT IGP,APTIMA HPV,AGE FLVBRqvjurc70/04/2025 10:42 AM EDT PAP WCJYGNbquvdc02/04/2025 12:00 AM EDTUS OB 14+ WEEKS ANATOMY SCANRoutine 04/08/2025 9:16 AM EDT Screening, , for anatomic survey ([facility]) from Last 3 Months Results * POCT urinalysis dipstick manually resulted (07/06/2025 11:00 AM EST) Only the most recent of5 resultswithin the time period is included. ComponentValueRef [...] Location / LateralityCollection Method / VolumeCollection TimeReceived DieuSadqh92/25/2025 11:00 AM EST Narrative Authorizing ProviderResult TypeResult StatusCorey Jesika DOPOINT OF CARE TEST ENTER/EDIT ORDERABLESFinal Result * US OB BPP W NON-STRESS (06/28/2025 5:27 PM EST)Anatomical Region LateralityModalityOtherSpecimen (Source)Anatomical Location / Laterality Collection Method / VolumeCollection TimeReceived Time06/28/2025 5:27 PM EST Narrative 06/28/2025 5:29 PM EST [facility] ?[address] ? [place] [address] ? Ultrasound Report ? Signed ? Patient: YENIFER TEMPLETON ?MR#: [id number] ?? : 2000 ?Acct:[id number] ?? Age/Sex: 24 / F ?ADM Date: ?? Loc: [facility] ??253-1 ? Attending Dr: Abad Canchola D.O. ? Ordering Physician: Patricia Roy ?? Date of Service: 06/28/25 ?? Procedure(s): US OB BPP w non-stress ?? Accession Number(s): [id number] ? cc: Michelle Pabon M.D.; Patricia Roy ? [facility] ? [address] ? [place] [address] ? Patient Name: ?? YENIFER TEMPLETON ? MRN: [id number] ? date: 2000 ?Sex: F ?? Assigned Patient Location: [facility] ?? Current Patient Location: [facility] ?? Accession/Order Number: [id number] ?? Exam Date: 06/28/2025 ??16:13 ?Report Date: 06/28/2025 ??17:27 ? At the request of: ?? PATRICIA ??KIRILL ? Procedure: ??US OB BPP w non-stress [...] Dictation Location: RADIO-PC-20 ? Electronically authenticated by: [id number] ??Y ?? Date: 06/28/2025 ??17:27 ? Dictated By: ?Ronan Chance D.O. ? Signed By: ?06/28/259 ? DD/ 1727 ? TD/TT: ? Manager Operational: Procedure Note Radiology, Radiologist, MD - 06/28/2025 [place] [address] Ultrasound Report Signed Patient: YENIFER TEMPLETON SMR#: [id number] : 2000Acct:[id number] Age/Sex: Date: Loc: [facility] 253-[address]: Abad Canchola D.O. Ordering Physician: Patricia Roy Date of Service: 06/28/25 Procedure(s): US OB BPP w non-stress Accession Number(s): [id number] cc: Michelle Pabon M.D.; Patricia Roy [address] [address] Patient Name: YENIFER TEMPLETON MRN: [id number] date: 2000 Sex: F Assigned Patient Location: [facility] Current Patient Location: [facility] Accession/Order Number: [id number] Exam Date: 06/28/2025 16:13 Report Date: 06/28/2025 17:27 At the request of: PATRICIA ROY Procedure: US OB BPP w non-stress [...] Chance M.D. 06/28/2025 5:27 PM Dictation Location[facility] Electronically authenticated by: [id number] Y Date: : Dictated By: Ronan Chance D.O. Signed By:06/28/251728 DD/ 26 TD/TT: Manager Operational: Authorizing ProviderResult TypeResult StatusPatricia Roy NPCLINISYNC IMAGING Final Result * (ABNORMAL) TBH CREATININE (06/23/2025 4:19 PM EST)ComponentValueRef RangeTest MethodAnalysis TimePerformed AtPathologist SignatureCREATININE0.52(L)0.55 - 1.02 mg/dLTBHTBH EGFR-AF STATELESS>60>=60 mL/min/1.73m 2TBHTBH EGFR-NON AF STATELESS>60>=60 mL/min/1.73m 2TBHSpecimen (Source)Anatomical Location / LateralityCollection Method / VolumeCollection TimeReceived Time06/23/2025 4:19 PM EST06/23/2025 4:20 PM EST Narrative CLINISYNC - 06/23/2025 5:17 PM EST Authorizing ProviderResult TypeResult StatusCorey Jesika DOCLINISYNCFinal Result Performing OrganizationAddressCity/State/ZIP CodePhone Number CLINISYNC TB * SRMCOH PROTHROMBIN TIME INR W/O COUM [...] Jesika DOCLINISYNCFinal Result Performing OrganizationAddressCity/State/ZIP CodePhone Number [facility] * (ABNORMAL) CCF AST (06/23/2025 4:19 PM EST)ComponentValueRef RangeTest Method Analysis TimePerformed AtPathologist SignatureASPARTATE AMINO TRANSFERASE9(L) 15 - 37 U/LTBHSpecimen (Source)Anatomical Location / LateralityCollection Method / VolumeCollection TimeReceived Time06/23/2025 4:19 PM EST06/23/2025 4:20 PM EST Narrative CLINISYNC - 06/23/2025 5:17 PM EST Authorizing ProviderResult TypeResult StatusCorey Jesika DOCLINISYNCFinal Result Performing OrganizationAddressCity/State/ZIP CodePhone Number [facility] * CCF APTT (06/23/2025 4:19 PM EST)ComponentValueRef RangeTest MethodAnalysis TimePerformed AtPathologist SignaturePARTIAL THROMBOPLASTIN TIME26.122.3 - 36.2 secTBHSpecimen (Source)Anatomical Location / LateralityCollection Method / VolumeCollection TimeReceived Time06/23/2025 4:19 PM EST06/23/2025 4:20 PM EST Narrative CLINISYNC - 06/23/2025 4:49 PM EST Authorizing ProviderResult TypeResult StatusCorey Jesika DOCLINISYNCFinal Result Performing OrganizationAddressty/State/ZIP CodePhone Number [facility] * ALL URIC ACID (06/23/2025 4:19 PM EST)ComponentValueRef RangeTest Method Analysis TimePerformed AtPathologist SignatureURIC ACID4.32.6 - 6.0 mg/dLTBH Specimen (Source)Anatomical Location / LateralityCollection Method / Volume Collection TimeReceived Time06/23/2025 4:19 PM EST06/23/2025 4:20 PM EST Narrative CLINISYNC - 06/23/2025 5:17 PM EST Authorizing ProviderResult TypeResult StatusCorey Jesika DOCLINISYNCFinal Result Performing OrganizationAddressCity/State/ZIP CodePhone Number [facility] * ALL LDH (06/23/2025 4:19 PM EST)ComponentValueRef RangeTest MethodAnalysis TimePerformed AtPathologist SignatureLACTATE TUECZHOKXHYZP58729 - 234 U/LTBH Specimen (Source)Anatomical Location / LateralityCollection Method / Volume Collection TimeReceived Time06/23/2025 4:19 PM EST06/23/2025 4:20 PM EST Narrative CLINISYNC - 06/23/2025 5:17 PM EST Authorizing ProviderResult TypeResult StatusCorey Jesika DOCLINISYNCFinal Result Performing OrganizationAddressCity/State/ZIP CodePhone Number [facility] * (ABNORMAL) ALL CBC WITH AUTO DIFF (06/23/2025 4:19 PM EST)ComponentValueRef RangeTest MethodAnalysis TimePerformed AtPathologist SignatureTBH WBC12.6(H) 4.0 - 11.0 10 3/uLTBHTBH RBC4.494.20 - 5.40 10 6/uLTBHTBH HGB13.612.0 - 16.0 g/dLTBHTBH HCT38.936.0 - 48.0 %TBHTBH MCV86.681.0 - 99.0 fLTBHTBH MCH30.326.7 - 34.0 pgTBHTBH MCHC35.029.9 - 35.2 g/dLTBHTBH RDW12.811.0 - 15.0 %TBHTBH PLT 500845 - 450 10 3/uLTBHTBH MPV10.79.5 - 13.5 [...] 4:19 PM EST06/23/2025 4:20 PM EST Narrative CLINISYNE - 06/23/2025 4:50 PM EST Authorizing ProviderResult TypeResult StatusCorey Jesika DOCLINISYNCFinal Result Performing OrganizationAddressCity/State/ZIP CodePhone Number [facility] * (ABNORMAL) ALL BUN (06/23/2025 4:19 PM EST)ComponentValueRef RangeTest Method Analysis TimePerformed AtPathologist SignatureBLOOD UREA NITROGEN6.0(L)7.0 - 18.0 mg/dLTBHSpecimen (Source)Anatomical Location / LateralityCollection Method / VolumeCollection TimeReceived Time06/23/2025 4:19 PM EST06/23/2025 4:20 PM EST Narrative CLINISYNE - 06/23/2025 5:17 PM EST Authorizing ProviderResult TypeResult StatusCorey Jesika DOCLINISYNCFinal Result Performing OrganizationAddressty/State/ZIP CodePhone Number [facility] * (ABNORMAL) TBH URINE T PROTEIN CREAT RATIO (06/23/2025 4:10 PM EST)Component ValueRef RangeTest MethodAnalysis TimePerformed AtPathologist SignatureTOTAL PROTEIN URINE RROQDJ81.0(H)<=11.9 mg/dLTBHCREATININE URINE VWRCDN172.5320.00 - 300.00 mg/dLTBHPROTEIN CREATININE RATIO URINE0.09TBHSpecimen (Source) Anatomical Location / LateralityCollection Method / VolumeCollection Time Received Time06/23/2025 4:10 PM EST06/23/2025 4:21 PM EST Narrative CLINISYNC - 06/24/2025 12:35 PM EST Authorizing ProviderResult TypeResult StatusCorey Jesika DOCLINISYNCFinal Result Performing OrganizationAddressCity/State/ZIP CodePhone Number CLINISYNC TBH * (ABNORMAL) TBH TOTAL PROTEIN 24 HOUR URINE (06/23/2025 7:45 AM EST)Component ValueRef RangeTest MethodAnalysis TimePerformed AtPathologist SignatureTOTAL PROTEIN URINE KVBTIP98.2(H)<=11.9 mg/dLTBHTOTAL VOLUME 24 HOUR URINE1,780 mL/24hrTBHTBH TOTAL PROTEIN 24 HOUR MDYGH978.2(H)<=149.1 mg/24hrTBHSpecimen (Source)Anatomical Location / LateralityCollection Method / VolumeCollection TimeReceived Time06/23/2025 7:45 AM EST06/23/2025 4:21 PM EST Narrative JIGARNE - 06/24/2025 12:46 PM EST Authorizing ProviderResult [...] BY: Miguel Thompson MD Authorizing ProviderResult TypeResult StatusRinkukylah Kirill NPIMG OB US PROCEDURESFinal Result * (ABNORMAL) RECURRENT VAGINITIS (HTRX) (04/15/2025 11:40 AM EDT)ComponentValue Ref RangeTest MethodAnalysis TimePerformed AtPathologist SignatureATOPOBIUM AYRUKJM219.961 - 24.689 ppm04/16/2025 6:40 AM [facility] ATOPOBIUM VAGINAENot Lostxsmr54.961 - 24.689 ppm04/16/2025 6:40 AM EDT [facility]BVAB 2,3 (BACTERIAL VAGINOSIS ASSOCIATED BACTERIA 2, 3); MOBILUNCUS ATI337.961 - 24.689 ppm04/16/2025 6:40 AM EDTHealth[facility]Rx at [facility],3 (BACTERIAL VAGINOSIS ASSOCIATED BACTERIA 2, 3); MOBILUNCUS SPP Not Xrqaupca49.961 - 24.689 ppm04/16/2025 6:40 AM EDT[facility] ROSALBA ALBICANS, PARAPSILOSIS, VYQVTRCTXS49.886(A)23.000 - 30.347 ppm 04/16/2025 6:40 AM EDTHealthTrackRx at LabPortCANDIDA ALBICANS, PARAPSILOSIS, TROPICALISDetected(A)23.000 - 30.347 ppm04/16/2025 6:40 AM EDTHealthTrackRx at LabPortCANDIDA KPQZXWNM226.000 - 31.618 ppm04/16/2025 6:40 AM EDTHealthTrackRx at LabPortCANDIDA GLABRATANot Ljjbfnfi11.000 - 31.618 ppm04/16/2025 6:40 AM EDTHealthTrackRx at LabPortCANDIDA CPXXLL811.000 - 30.873 ppm04/16/2025 6:40 AM EDTHealthTrackRx at LabPortCANDIDA KRUSEINot Tbgiclgo19.000 - 30.873 ppm 04/16/2025 6:40 AM EDTHealthTrackRx at LabPortCHLAMYDIA ACOSEQEEGTV104.000 - 31.586 ppm04/16/2025 6:40 AM EDTHealthTrackRx at LabPortCHLAMYDIA TRACHOMATIS Not Jllhawfd33.000 - 31.586 ppm04/16/2025 6:40 AM EDTHealthTrackRx at [facility] GARDNERELLA QXDIYIZUW99.384(A)19.961 - 24.689 ppm04/16/2025 6:40 AM EDT [facility]PortGARDNERELLA VAGINALISDetected(A)19.961 - 24.689 ppm 04/16/2025 6:40 AM EDTHealthTrackRx at LabPortMEGASPHAERA (TYPES 1, 2)019.961 - 24.689 ppm04/16/2025 6:40 AM EDTHealthTrackRx at LabPortMEGASPHAERA (TYPES 1, 2)Not Cqfcvvsi20.961 - 24.689 ppm04/16/2025 6:40 AM EDTHealthTrackRx at LabPortNEISSERIA SSOVPEZDQWM434.000 - 32.587 ppm04/16/2025 6:40 AM EDT [facility] LabPortNEISSERIA GONORRHOEAENot Vlwuzcrc80.000 - 32.587 ppm 04/16/2025 6:40 AM EDTHealthTrackRx at LabPortTRICHOMONAS HBTLONEHC889.000 - 31.995 ppm04/16/2025 6:40 AM EDTHealthTrackRx at LabPortTRICHOMONAS VAGINALIS Not Oxonpdcb04.000 - 31.995 ppm04/16/2025 6:40 AM EDTHealthTrackRx at [facility] MYCOPLASMA OYPVXTDTSS830.961 - 24.689 ppm04/16/2025 6:40 AM EDTHealthTrackRx at LabPortMYCOPLASMA GENITALIUMNot Qrdxcyie41.961 - 24.689 ppm04/16/2025 6:40 AM EDTHealthTrackRx at LabPortSpecimen (Source)Anatomical Location / LateralityCollection Method / VolumeCollection TimeReceived TimeTissue 04/15/2025 11:40 AM EDT04/16/2025 1:52 AM EDT Narrative Authorizing ProviderResult TypeResult StatusCorey Jesika JAMES BLOOD ORDERABLES Final ResultPerforming OrganizationAddressCity/State/ZIP CodePhone Number [facility] [address] [address] * IGP,APTIMA HPV,AGE GDLN (04/15/2025 10:42 AM [...] at: 01 =G ?[facility] [place] ?? [address] [place], [place] ??[phone] ?? Beverly Nguyen MD, IGP, RFX APTIMA HPV ASCUNote.TBHComment: ?? TESTS ? RESULT ??FLAG ??UNITS ?REF RANGE ??LAB DIAGNOSIS: ?02 ?? NEGATIVE FOR INTRAEPITHELIAL LESION OR MALIGNANCY. ?? FUNGAL ORGANISMS MORPHOLOGICALLY CONSISTENT WITH ROSALBA SPECIES ARE ?? PRESENT. Specimen adequacy: ?02 ?? Satisfactory for evaluation. ??Endocervical and/or squamous metaplastic ?? cells (endocervical component) are present. Performed by: ? 02 ?? Sonia Beckham Balancer (ASCP) . ? 02 Note: ? Note [...] High,A-Abnormal,AA-Critical Abnormal Performed at: 02 WB ?[facility] [place] ?? [address] [place], [place] ??[phone] ?? Beverly Nguyen MD, Performed at: ??=G - [facility] [place] [address], [place] ??[phone] [employer]: Beverly Nguyen MD, Phone: ??[phone] Performed at: ??WB - [facility] [address], [place] ??[phone] [employer]: Beverly Nguyen MD, Phone: ??[phone] Specimen (Source)Anatomical Location / LateralityCollection Method / Volume Collection TimeReceived Time04/15/2025 10:42 AM EDT04/15/2025 2:49 PM EDT Narrative CLINISYNC - 04/19/2025 9:09 AM EDT SPATULA-ALONE ENDOCERVIX Authorizing ProviderResult TypeResult StatusCorey Jesika DOLAB BLOOD ORDERABLES Final ResultPerforming OrganizationAddressCity/State/ZIP CodePhone Number CLINISYNC TBH * Pap Smear (04/15/2025 12:00 AM [...] Miguel Thompson MD Authorizing ProviderResult TypeResult StatusAmy Gregorio HELMS OB US PROCEDURES Edited Result - Final from Last 3 Months Insurance * Guarantor: Yenifer Templeton TypeRelation to PatientDate of BirthPhone Billing AddressPersonal/QlzqekPtwb12/09/2000 [facility] [address] [place] [address] MemberSubscriberPlan / Payer (Effective 2020-Present)Name:Yenifer Templeton Relation to Subscriber:ChildName:KEERTHI ANTONIO Date of :1970 Address[facility] [address] [place] [address] Payer ID:Not on file Type:Not on file Address: [place] [phone] * Guarantor: Yenifer Templeton TypeRelation to PatientDate of BirthPhone Billing AddressPersonal/HegfahLeef07/09/2001 [address] [place] [phone] MemberSubscriberPlan / Payer (Effective 2020-Present)Name:Yenifer Templeton Relation to Subscriber:ChildName:KEERTHI ANTONIO Date of :1970 Address: [facility] [place] [id number] Payer ID:Not on file Type:Not on file Address: [place] [phone] Care Teams Team MemberRelationshipSpecialtyStart [place] [address] [place] [phone] PCP - GeneralFamily Medicine03/25/24
--- OUTSIDE RECORDS SUMMARY | 2025-07-09 14:57 | XMS_ITS | Encounter Summary ---
Author Organization [facility] Address [address] [place] [place] [address] Care Team Providers Care Meteorology Instructor Name Role Phone Michelle Pabon MD Primary Care Provider [phone] Encounter Details DateTypeDepartmentCare Team (Latest Contact Info)Vhxnhnxctjl87/17/2025amboo flowsheet NOMFatimah CHINCHILLA [address] [place] [address] Patricia Roy, SUPERVISOR ALUMINUM BOAT ASSEMBLY [address] [facility] [address] [address] Social History Tobacco UseTypesPacks/DayYears UsedDateSmoking Tobacco: NeverAlcohol UseStandard Drinks/WeekCommentsNever0 (1 standard drink = 0.6 oz pure alcohol) Estimated Date of CckoopkjDsujbzupXta58/15/2026Based on last menstrual period of 11/19/2024 (Approximate)Sex and Gender InformationValueDate RecordedSex Assigned at BirthNot on fileLegal CcmBplctz39/15/2023 10:09 PM EDTGender IdentityNot on fileSexual OrientationNot on filedocumented as of this encounter Plan of Treatment DateTypeDepartmentCare Team (Latest Contact Info)Qclyygxhvoe96/09/2025 8:50 AM ESTRoutine NOMFatimah CHINCHILLA [address] [place] [address] Patricia Roy, SUPERVISOR ALUMINUM BOAT ASSEMBLY [address] [place] [address] documented as of this encounter Visit Diagnoses Not on filedocumented in this encounter Care Teams Team MemberRelationshipSpecialtyStart DateEnd Date Michelle Pabon MD [address] [place] [phone] PCP - GeneralFamily Medicine03/25/24documented as of this encounter
--- OUTSIDE RECORDS SUMMARY | 2025-07-09 14:57 | XMS_ITS | Encounter Summary ---
Author Organization [facility] Address [address] [place] [address] Care Team Providers Care Senior Gis Analyst Name Role Phone Michelle Pabon MD Primary Care Provider [phone] Encounter Details DateTypeDepartmentCare Team (Latest Contact Info)Ggxhxuztnhv62/25/2025amboo flowsheet ENRIQUE CHINCHILLA [address] [facility] [facility] [address] Abad Canchola, [address] [facility] [place] [address] Social History Tobacco UseTypesPacks/DayYears UsedDateSmoking Tobacco: NeverAlcohol UseStandard Drinks/WeekCommentsNever0 (1 standard drink = 0.6 oz pure alcohol) Estimated Date of VdethntaCesxegshKnr19/15/2026Based on last menstrual period of 11/19/2024 (Approximate)Sex and Gender InformationValueDate RecordedSex Assigned at BirthNot on fileLegal YjkTpwdkn31/15/2023 10:09 PM EDTGender IdentityNot on fileSexual OrientationNot on filedocumented as of this encounter Plan of Treatment DateTypeDepartmentCare Team (Latest Contact Info)Upjxlxgosvn31/09/2025 8:50 AM ESTRoutine NOMFatimah CHINCHILLA [address] [place] [address] Patricia Roy, BODY STYLIST [address] [place] [address] documented as of this encounter Visit Diagnoses Not on filedocumented in this encounter Care Teams Team MemberRelationshipSpecialtyStart DateEnd Date Michelle Pabon MD [address] [place] [phone] PCP - GeneralFamily Medicine03/25/24documented as of this encounter
--- OUTSIDE RECORDS SUMMARY | 2025-07-09 14:57 | XMS_ITS | Clinical Summary ---
Author Organization [facility] Address [address], [address] [place] [address] Care Team Providers Care Deputy Court Clerk Name Role Phone Annel Yuen [facility] Primary Care Provider [phone] Social History Tobacco UseTypesPacks/DayYears UsedDateSmoking Tobacco: Never Assessed CommentsUnknownSex and Gender InformationValueDate RecordedSex Assigned at Not on fileLegal IziKciepl25/01/2023 10:58 AM EDTGender IdentityNot on file Sexual OrientationNot on file Plan of Treatment Health MaintenanceDue DateLast DoneCommentsDTaP/Tdap/Td vaccine (1 - Tdap) 2018Flu vaccine (#1)5COVID-19 Vaccine ( - season) 2025Polio vaccineAged OutNo longer eligible based on patient's age to complete this topic Insurance * Guarantor: Yenifer ViverosAccount TypeRelation to PatientDate of BirthPhone Billing AddressPersonal/HiunnzNnpx19/09/2000 [facility] [place] [address] Care Teams Team MemberRelationshipSpecialtyStart DateEnd Date Annel Yuen, OUTPATIENT PHARMACY MANAGER - GLUING CREW LEADER [address] [place] [address] PCP - GeneralNurse Practitioner01/10/23
--- OUTSIDE RECORDS SUMMARY | 2025-07-09 14:57 | XMS_ITS | Encounter Summary ---
Author Organization [facility] Address [address] [place] [address] Care Team Providers Care Highway Painter Helper Name Role Phone Michelle Pabon MD Primary Care Provider [phone] Encounter Details DateTypeDepartmentCare Team (Latest Contact Info)Avsudxyihag97/17/2025linisync Result Encounter [facility] Unsolicited Say Roy, NELLY [address] [place] [address] Social History Tobacco UseTypesPacks/DayYears UsedDateSmoking Tobacco: NeverAlcohol UseStandard Drinks/WeekCommentsNever0 (1 standard drink = 0.6 oz pure alcohol) Estimated Date of OilctbfbSnawdfqdOja54/15/2026ased on last menstrual period of 11/19/2024 (Approximate)Sex and Gender InformationValueDate RecordedSex Assigned at BirthNot on fileLegal XafRxjaac19/15/2023 10:09 PM EDTGender IdentityNot on fileSexual OrientationNot on filedocumented as of this encounter Plan of Treatment DateTypeDepartmentCare Team (Latest Contact Info)Plurfjejjud47/09/2025 8:50 AM ESTRoutine [facility] CHINCHILLA [address] [place] [address] Say Roy, NELLY [address] [place] [address] documented as of this encounter Procedures Procedure NamePriorityDate/TimeAssociated DiagnosisCommentsUS OB BPP W NON-ETGDSO9406/28/2025 5:27 PM EST documented in this encounter Results * US OB BPP W NON-STRESS (06/28/2025 5:27 PM EST)Anatomical Region LateralityModalityOtherSpecimen (Source)Anatomical Location / Laterality Collection Method / VolumeCollection TimeReceived Time06/28/2025 5:27 PM EST Narrative 06/28/2025 5:29 PM EST [facility] ?[address] ? [place] [id number] ? Ultrasound Report ? Signed ? Patient: MEREDITH TEMPLETON S ?MR#: [id number] ?? : 2000 ?Acct:[id number] ?? Age/Sex: 24 / F ?ADM Date: ?? Loc: [facility] ??253-1 ? Attending Dr: Abad Canchola D.O. ? Ordering Physician: Say Roy ?? Date of Service: 06/28/25 ?? Procedure(s): US OB BPP w non-stress ?? Accession Number(s): [id number] ? cc: Michelle Pabon M.D.; Say Roy ? [facility] ? [address] ? [place] [address] ? Patient Name: ?? MEREDITH TEMPLETON ? MRN: [facility]:[id number] ? date: 2000 ?Sex: F ?? Assigned Patient Location: [facility] ?? Current Patient Location: [facility] ?? Accession/Order Number: [id number] ?? Exam Date: 06/28/2025 ??16:13 ?Report Date: [...] M.D. ??06/28/2025 5:27 PM ? Dictation Location: [facility]-PC-20 ? Electronically authenticated by: [id number] ??Y ?? Date: 06/28/2025 ??17:27 ? Dictated By: ?Ronan Chance D.O. ? Signed By: ?06/28/25 1729 ? DD/ ? TD/TT: ? Bottom Turner: Procedure Note Radiology, Radiologist, - 06/28/2025 [place] [address] Ultrasound Report Signed Patient: MEREDITH TEMPLETON SMR#: [id number] : 2000Acct:[id number] Age/Sex: Date: Loc: [facility] 253-[address]: Abad Canchola D.O. Ordering Physician: Say Roy Date of Service: 06/28/25 Procedure(s): US OB BPP w non-stress Accession Number(s): [id number] cc: Michelle Pabon M.D.; Say Roy The [place] [address] Patient Name: MEREDITH TEMPLETON MRN: [id number] date: 2000 Sex: F Assigned Patient Location: [facility] Current Patient Location: [facility] Accession/Order Number: [id number] Exam Date: 06/28/2025 16:13 Report Date: 06/28/2025 [...] Chance M.D. 06/28/2025 5:27 PM Dictation Location: [place] [address] Electronically authenticated by: [id number] Y Date: 7:27 Dictated By: Ronan Chance D.O. Signed By:06/28/251728 DD/ 26 TD/TT: Bottom Turner: Authorizing ProviderResult TypeResult StatusSay Roy NPCLINISYNC IMAGING Final Result documented in this encounter Visit Diagnoses Not on filedocumented in this encounter Care Teams Team MemberRelationshipSpecialtyStart DateEnd Date Michelle Pabon MD [address] [place] [address] PCP - GeneralFamily Medicine03/25/24documented as of this encounter
--- NOTE | 2025-07-09 14:59 | US_ITS ---
[place] [id number] Patient Name: MEREDITH TEMPLETON MRN: [id number] date: 2000 Sex: F Assigned Patient Location: [facility] Current Patient Location: [facility] Accession/Order Number: [id number] Exam Date: 07/09/2025 15:02 Report Date: 07/09/2025 15:47 At the request of: SAY RAMIREZ Procedure: US OB BPP w non-stress Ultrasound biophysical profile INDICATION: Hypertension during COMPARISON: 06/28/2025 FINDINGS IMPRESSION: Cephalic position. heart rate 150 beats per minutes. VALENTINA: 10.4 cm. Biophysical profile score 8/8. Impression dictated by: Duncan Jones M.D. 07/09/2025 3:47 PM Dictation Location: [place] [address] Electronically authenticated by: [id number] Y Date: 07/09/2025 15:47
[2025-07-09 15:24] VITALS: BP 133/85; PULSE 91
== END 2025-07-09 16:10 | disposition home or self-care (01) ==
LOC: US 14:54 → FBC 14:59
PROVIDERS: PCP Family Medicine; Visit Provider Nurse Practitioner Family
DX: O16.3 Unspecified maternal hypertension, third trimester (principal); Z3A.33 33 weeks gestation of pregnancy
CPT/HCPCS: 76818

== ENCOUNTER 2025-07-12 15:56 | Outpatient (OUT) | payer OTHER, SELFPAY ==
--- OUTSIDE RECORDS SUMMARY | 2025-06-28 15:30 | XMS_ITS | Encounter Summary ---
Author Organization [facility] Address [address] [facility] [place] [address] Care Team Providers Care Raise Driller Name Role Phone Michelle Pabon MD Primary Care Provider [phone] Reason for Visit * ReasonCommentsRoutine Visit Encounter Details DateTypeDepartmentCare Team (Latest Contact Info)Uypbyoggepg93/17/2025 3:30 PM ESTRoutine [facility] [address] [address] Patricia Roy, BATCH ROLLER OPERATOR [address] [place] [address] Third trimester ([facility]); 31 weeks gestation of ([facility]); Hypertension during in third trimester, unspecified hypertension in type ([facility]) Social History Tobacco UseTypesPacks/DayYears UsedDateSmoking Tobacco: NeverAlcohol UseStandard Drinks/WeekCommentsNever0 (1 standard drink = 0.6 oz pure alcohol) Estimated Date of NtbvetivWdgzjhjxAbn68/15/2026Based on last menstrual period of 11/19/2024 (Approximate)Sex and Gender InformationValueDate RecordedSex Assigned at BirthNot on fileLegal QenVjjsqx29/15/2023 10:09 PM EDTGender IdentityNot on fileSexual OrientationNot on filedocumented as of this encounter Last Filed Vital Signs Vital SignReadingTime TakenCommentsBlood Qludizlr691/9406/28/2025 3:29 PM EST Pulse--Temperature--Respiratory Rate--Oxygen Saturation--Inhaled Oxygen Concentration--Ybthxo277 kg (223 lb)06/28/2025 3:29 PM ESTHeight--Body Mass [...] nursing note reviewed. Exam conducted with a legal file clerk present. Vitals: Estimated body mass index is 35.99 kg/m?? as calculated from the following: Height as of 09/24/19: 5' 6 . Weight as of this encounter: 223 lb. BP: (!) 140/94 Patient's last menstrual period was 11/19/2024 (approximate). Assessment/Plan ICD-10-CM 1. Third trimester ([facility]) Z34.93 POCT urinalysis dipstick manually resulted 2. 31 weeks gestation of ([facility]) Z3A.31 3. Hypertension during in third trimester, unspecified hypertension in type ([facility]) O16.3 [...] Plan of Treatment DateTypeDepartmentCare Team (Latest Contact Info)Avcbdcdcsmw17/09/2025 8:50 AM ESTRoutine [facility] [address] [place] [address] Patricia Roy NP [address] [place] [address] NameTypePriorityAssociated DiagnosesOrder ScheduleUS biophysical profile w non stress testImagingRoutine Hypertension during in third trimester, unspecified hypertension in type ([facility]) Expected: 06/28/2025 (Approximate), Expires: 12/26/2025documented as of this encounter Procedures Procedure NamePriorityDate/TimeAssociated DiagnosisCommentsPOCT URINALYSIS YJQMPBWWBoowjby66/17/2025 4:05 PM EST Third trimester ([facility]) documented [...] DateEnd Date Michelle Pabon MD [address] [place] [id number] PCP - GeneralFamily Medicine03/25/24documented as of this encounter
--- OUTSIDE RECORDS SUMMARY | 2025-07-06 10:40 | XMS_ITS | Encounter Summary ---
Author Organization [facility] Address [address] [place] [address] Care Team Providers Care Pit Crane Operator Name Role Phone Michelle Pabon MD Primary Care Provider [phone] Reason for Visit * ReasonCommentsRoutine Visit Encounter Details DateTypeDepartmentCare Team (Latest Contact Info)Xlycdnqlaya07/25/2025 10:40 AM ESTRoutine [facility] [address] [place] [id number] Abad Canchola DO [address] [place], [facility] Third trimester ([facility]); 32 weeks gestation of ([facility]) Social History Tobacco UseTypesPacks/DayYears UsedDateSmoking Tobacco: NeverAlcohol UseStandard Drinks/WeekCommentsNever0 (1 standard drink = 0.6 oz pure alcohol) Estimated Date of JgnuirrrRlfofhedAvy82/15/2026Based on last menstrual period of 11/19/2024 (Approximate)Sex and Gender InformationValueDate RecordedSex Assigned at BirthNot on fileLegal WwxXhbwak36/15/2023 10:09 PM EDTGender IdentityNot on fileSexual OrientationNot on filedocumented as of this encounter Last Filed Vital Signs Vital SignReadingTime TakenCommentsBlood Xoyenqlp435/8607/06/2025 10:55 AM EST Pulse--Temperature--Respiratory Rate--Oxygen Saturation--Inhaled Oxygen Concentration--Oqmqsw68.4 kg (217 lb)07/06/2025 10:55 AM ESTHeight--Body Mass [...] nursing note reviewed. Exam conducted with a junior high math teacher present. Vitals: Estimated body mass index is 35.02 kg/m?? as calculated from the following: Height as of 09/24/19: 5' 6 . Weight as of this encounter: 217 lb. BP: 128/86 Patient's last menstrual period was 11/19/2024 (approximate). Assessment/Plan ICD-10-CM 1. Third trimester ([facility]) Z34.93 POCT urinalysis dipstick manually resulted 2. 32 weeks gestation of ([facility]) Z3A.32 Assessment/Plan Return OB: Patient presents today [...] Plan of Treatment DateTypeDepartmentCare Team (Latest Contact Info)Bimlliycwdp31/09/2025 8:50 AM ESTRoutine [facility] [address] [place] [address] Patricia Roy NP [address] [place] [address] documented as of this encounter Procedures Procedure NamePriorityDate/TimeAssociated DiagnosisCommentsPOCT URINALYSIS WQHFTCDWYwltsfs19/25/2025 11:00 AM EST Third trimester ([facility]) documented in this encounter Results * POCT [...] this encounter Visit Diagnoses Diagnosis Third trimester ([facility]) state, incidental 32 weeks gestation of ([facility]) documented in this encounter Care Teams Team MemberRelationshipSpecialtyStart DateEnd Date Michelle Pabon MD [address] [place] [address] PCP - GeneralFamily Medicine03/25/24documented as of this encounter
--- OUTSIDE RECORDS SUMMARY | 2025-07-12 15:59 | XMS_ITS | Clinical Summary ---
Author Organization [facility] Healthcare Address [address] [place] [address] Care Team Providers Care Timber Rider Name Role Phone Michelle Pabon MD Primary Care Provider [phone] Allergies No known active allergies Medications MedicationSigDispense QuantityRefillsLast FilledStart DateEnd DateStatus 27-1 MG tablet Take 1 tablet by mouth DailyActive labetalol (Normodyne) 200 MG tablet Take 1 tablet by mouth in the morning and 1 tablet before bedtime.06/28/2025 Active ondansetron ODT (Zofran-ODT) 4 MG disintegrating tablet Take 4 mg by mouth every 8 (eight) hours if needed for luamuk6702/22/2025 06/28/2025Discontinued metoclopramide (Reglan) 10 MG tablet Indications:Nausea and vomiting during ([facility])Take 1 tablet (10 mg) by mouth in [...] 30 mg by mouth DailyDiscontinued Encounters DateTypeDepartmentCare IfyuBagcbmfycjd73/28/2025linisync Result Encounter [facility] External Department Unsolicited Patricia Roy NP 07/06/2025 10:40 AM ESTRoutine [facility] JOSEPHGYKhurram [place] [address] Abad Canchola, Third trimester ([facility]); 32 weeks gestation of ([facility])5Bamboo flowsheet [facility] [place] [address] Abad Canchola, 06/28/2025 3:30 PM ESTRoutine [facility] JOSEPHGYKhurram [place] [address] Patricia Roy, NELLY Third trimester ([facility]); 31 weeks gestation of ([facility]); Hypertension during in third trimester, unspecified hypertension in type ([facility])5Clinisync Result Encounter [facility] External Department Unsolicited Patricia Roy NP 5Bamb flowsheet [facility] [address] [place] [address] Patricia Roy, NELLY 5Clinisync Result Encounter [facility] External Department Unsolicited Abad Canchola, 06/21/2025 3:40 PM ESTRoutine [facility] [address]ram [address] [place] [address] Abad Canchola, 28 weeks gestation of ([facility]); Third trimester ([facility]); induced hypertension, antepartum ([facility])06/21/2025 3:00 PM EST Ancillary Procedure [facility] OBNEIL [place] [address] size inconsistent with dates ([facility])06/08/2025 8:30 AM EDTRoutine [facility] JOSEPHGYKhurram [place] [address] Shagufta Perkins PA size inconsistent with dates ([facility]) (Primary Dx); 28 weeks gestation of ([facility]); Second trimester ([facility])06/08/2025amboo flowsheet [facility] [address] [place] [address] Shagufta Perkins PA 05/12/2025 8:30 AM EDTRoutine [facility] [address] [place] [address] Patricia Roy, NELLY 24 weeks gestation of ([facility]); Second trimester ([facility]); Diabetes mellitus kxnjhicxn58/01/2025amb flowsheet [facility] [address] [place] [address] Patricia Roy NP 05/10/2025Telephone [facility] [place] [facility] [address] [place] [address] Nighat Moyer MA 04/19/2025Results Follow-Up [facility] JOSEPHGYN [address] [place] [address] RileyingerEdda, ASSISTANT CHILD CARE TEACHER IGP,APTIMA HPV,AGE GDLN04/19/2025Orders Only [facility] [address] [place] [address] Cris Gross MA 04/16/2025bstract [facility] [address] [place] [address] Nighat Moyer MA 04/16/2025Telephone [facility] [address] [place] [address] Nighat Moyer MA 04/15/2025 10:10 AM EDTRoutine [facility] CHINCHILLA [address] [place] [phone] Abad Canchola DO Second trimester ([facility]); 21 weeks gestation of ([facility]); Nausea and vomiting during ([facility]); Vaginal discharge during , antepartum ([facility])5Clinisync Result Encounter N[facility] External Department Unsolicited Abad Canchola DO 5Bamboo flowsheet [facility] CHINCHILLA [address] [place] [address] [place] [phone] Abad Canchola DO from Last 3 Months Family History Medical HistoryRelationNameCommentsHyperlipidemiaFatherHypertensionFather RelationNameStatusCommentsFatherAliveMotherAlive Social History Tobacco UseTypesPacks/DayYears UsedDateSmoking Tobacco: Never Tobacco Cessation:Counseling Given: Not Answered Alcohol UseStandard Drinks/WeekCommentsNever0 (1 standard drink = 0.6 oz pure alcohol)Estimated Date of FjpayxetUdaomryuKlf32/15/2026Based on last menstrual period of 11/19/2024 (Approximate)Sex and Gender InformationValueDate RecordedSex Assigned at BirthNot on fileLegal TdfGfhqcq14/15/2023 10:09 PM EDT Gender IdentityNot on fileSexual OrientationNot on file Last Filed Vital Signs Vital SignReadingTime TakenCommentsBlood Ugrriwvs901/8607/06/2025 10:55 AM EST Pulse--Temperature--Respiratory Rate--Oxygen Saturation--Inhaled Oxygen Concentration--Btjawe49.4 kg (217 lb)07/06/2025 10:55 AM YSIGczciz530.6 cm (5' 6 )09/24/2019 12:00 PM ESTBody Mass Index35.02009/24/2019 12:00 PM EST Plan of Treatment DateTypeDepartmentCare Team (Latest Contact Info)Omidegdijxt01/09/2025 8:50 AM ESTRoutine [facility] [place] [address] [phone] Patricia Roy, COMMUNITY THEATER ACTOR [address] [place] [address] Health MaintenanceDue DateLast DoneCommentsCOVID-19 Vaccine ( season) 502/12/2020, 08/19/2020Influenza Vaccine (#1)510/10/2021, 06/03/2020Pneumococcal Vaccine: Pediatrics (0 to 5 Years) and At-Risk Patients (6 to 64 Years)Aged OutNo longer eligible based on patient's age to complete this topic Procedures Procedure NamePriorityDate/TimeAssociated DiagnosisCommentsUS OB BPP W NON-BRNGNT0207/09/2025 3:47 PM EST POCT URINALYSIS GAGYLWWMFwxxgvn02/25/2025 11:00 AM EST Third trimester ([facility]) US OB BPP W NON-RRTGKX8706/28/2025 5:27 PM EST POCT URINALYSIS AVGRBRCQZgsogje62/17/2025 4:05 PM EST Third trimester ([facility]) ALL ARIScjxjuk41/12/2025 4:19 PM EST CCF USBUjonzef77/12/2025 4:19 PM EST ALL URIC GZTIMlfcdga65/12/2025 4:19 PM EST TBH TMYTUUGXDMPdfwnik06/12/2025 4:19 PM EST ALL RAUNnvalsy48/12/2025 4:19 PM EST ALL CBC WITH AUTO DPHYYnlckqm92/12/2025 4:19 PM EST CCF SRMSLzvzcnd19/12/2025 4:19 PM EST SRMCOH PROTHROMBIN TIME INR W/O OIZHEhjwyny96/12/2025 4:19 PM EST TBH URINE T PROTEIN CREAT VLEOZQmziojm10/12/2025 4:10 PM EST TBH TOTAL PROTEIN 24 HOUR TXPBMBfactls43/12/2025 7:45 AM EST POCT URINALYSIS YMZXEZLTVdespol06/10/2025 3:47 PM EST 28 weeks gestation of ([facility]) Third trimester ([facility]) US OB FOLLOW UP TRANSABDOMINAL MDVEODZADxvbbss68/10/2025 3:24 PM EST size inconsistent with dates ([facility]) POCT URINALYSIS ZAVQAAUFUlkcqcz22/28/2025 8:51 AM EDT 28 weeks gestation of ([facility]) Second trimester ([facility]) POCT URINALYSIS ZVSXZXRAUmaqjxw93/01/2025 8:42 AM EDT 24 weeks gestation of ([facility]) RECURRENT VAGINITIS (HTRX)Wvkdiat9904/15/2025 11:40 AM EDT IGP,APTIMA HPV,AGE UBFMDvjsamm54/04/2025 10:42 AM EDT PAP OVJKTPtpsvjf19/04/2025 12:00 AM EDTfrom Last 3 Months Results * US OB BPP W NON-STRESS (07/09/2025 3:47 PM EST) Only the most recent of2 resultswithin the time period is included. Anatomical RegionLateralityModalityOtherSpecimen (Source)Anatomical Location / LateralityCollection Method / VolumeCollection TimeReceived Time07/09/2025 3:47 PM EST Narrative 07/09/2025 3:50 PM EST [facility] ?[address] ? [place] [address] ? Ultrasound Report ? Signed ? Patient: JARETH,YENIFER S ?MR#: [id number] ?? : 2000 ?Acct:[id number] ?? Age/Sex: 24 / F ?ADM Date: 11/28/25 ?? Loc: [facility] ??255-1 ? Attending Dr: Patricia Roy ? Ordering Physician: Patricia Roy ?? Date of Service: 07/09/25 ?? Procedure(s): US OB BPP w non-stress ?? Accession Number(s): [id number] ? cc: Michelle Pabon M.D.; Patricia Roy ? [facility] ? [address] ? [place] [address] ? Patient Name: ?? YENIFER TEMPLETON ? MRN: [facility]:[id number] ? date: 2000 ?Sex: F ?? Assigned Patient Location: [facility] ?? Current Patient Location: [facility] ?? Accession/Order Number: [id number] ?? Exam Date: 07/09/2025 ??15:02 ?Report Date: 07/09/2025 ??15:47 ? At the request of: ?? PATRICIA ??ASHLEY ? Procedure: ??US OB BPP w non-stress ? Ultrasound biophysical profile ? INDICATION: Hypertension during ? COMPARISON: 06/28/2025 ? FINDINGS IMPRESSION: Cephalic position. ?? heart rate 150 beats per ?? minutes. ??VALENTINA: 10.4 cm. ??Biophysical profile score 8/8. ? Impression dictated by: Duncan Jones M.D. ??07/09/2025 3:47 PM ? Dictation Location: [facility]- ? Electronically authenticated by: [id number] ??Y ?? Date: 07/09/2025 ??15:47 ? Dictated By: ?Duncan Jones M.D. ? Signed By: ?07/09/25 1550 ? DD/ 1547 ? TD/TT: ? Key Person: Procedure Note Radiology, Radiologist, MD - 07/09/2025 [place] [address] Ultrasound Report Signed Patient: YENIFER TEMPLETON [facility]#: [id number] : 2000Acct:[id number] Age/Sex: 24 / FADM Date: 07/09/25 Loc: [facility] 255-[address]: Patricia Roy Ordering Physician: Patricia Roy Date of Service: 07/09/25 Procedure(s): US OB BPP w non-stress Accession Number(s): [id number] cc: Michelle Pabon M.D.; Patricia Roy [place] [address] Patient Name: YENIFER TEMPLETON MRN: [facility]:[id number] date: 2000 Sex: F Assigned Patient Location: [facility] Current Patient Location: [facility] Accession/Order Number: [id number] Exam Date: 07/09/2025 15:02 Report Date: 07/09/2025 15:47 At the request of: PATRICIA ROY Procedure: US OB BPP w non-stress Ultrasound biophysical profile INDICATION: Hypertension during COMPARISON: 06/28/2025 FINDINGS IMPRESSION: Cephalic position. heart rate 150 beatsper minutes. VALENTINA: 10.4 cm. Biophysical profile score 8/8. Impression dictated by: Duncan Jones M.D. 07/09/2025 3:47 PM Dictation Location: [place] [address] Electronically authenticated by: [id number] Y Date: 5:47 Dictated By: Duncan Jones M.D. Signed By:07/09/25 1550 DD/ 1547 TD/TT: Key Person: Authorizing ProviderResult TypeResult StatusPatricia Roy NPCLINISYNC IMAGING Final Result * POCT urinalysis dipstick manually resulted (07/06/2025 [...] UA0.20.2 - 12 mg/dLLeukocytes, UANegativeNegative - 500+++ Johnosn/mcL Nitrite, UANegativeNegative - PositiveSpecimen (Source)Anatomical Location / LateralityCollection Method / VolumeCollection TimeReceived ZgnaBqduv51/25/2025 11:00 AM EST Narrative Authorizing ProviderResult TypeResult StatusCorey Jesika DOPOINT OF CARE TEST ENTER/EDIT ORDERABLESFinal Result * (ABNORMAL) TB CREATININE (06/23/2025 4:19 PM EST)ComponentValueRef RangeTest MethodAnalysis TimePerformed AtPathologist SignatureCREATININE0.52(L)0.55 - 1.02 mg/dLTBHTBH EGFR-AF SLOVENIAN>60>=60 mL/min/1.73m 2TBHTBH EGFR-NON AF SLOVENIAN>60>=60 mL/min/1.73m 2TBHSpecimen (Source)Anatomical Location / LateralityCollection Method / VolumeCollection TimeReceived Time06/23/2025 4:19 PM EST06/23/2025 4:20 PM EST Narrative CLINISYNC - 06/23/2025 5:17 PM EST Authorizing ProviderResult TypeResult StatusCorey Jesika DOCLINISYNCFinal Result Performing OrganizationAddressCity/State/ZIP CodePhone Number CLINISYNC [facility] * SRMCOH PROTHROMBIN TIME INR W/O [...] OrganizationAddressCity/State/ZIP CodePhone Number CLINISYNC TB * (ABNORMAL) CCF AST (06/23/2025 4:19 PM [...] OrganizationAddressCity/State/ZIP CodePhone Number CLINISYNC TB * ALL LDH (06/23/2025 4:19 PM EST)ComponentValueRef RangeTest MethodAnalysis TimePerformed AtPathologist SignatureLACTATE WQNADUYUJEIOY73746 - 234 U/LTBH Specimen (Source)Anatomical Location / LateralityCollection Method / Volume Collection TimeReceived Time06/23/2025 4:19 PM EST06/23/2025 4:20 PM EST Narrative CLINISYNC - 06/23/2025 5:17 PM EST Authorizing ProviderResult TypeResult StatusCorey Jesika DOCLINISYNCFinal Result Performing OrganizationAddressCity/State/ZIP CodePhone Number [facility] * (ABNORMAL) ALL CBC WITH AUTO DIFF (06/23/2025 4:19 PM EST)ComponentValueRef RangeTest MethodAnalysis TimePerformed AtPathologist SignatureTBH WBC12.6(H) 4.0 - 11.0 10 3/uLTBHTBH RBC4.494.20 - 5.40 10 6/uLTBHTBH HGB13.612.0 - 16.0 g/dLTBHTBH HCT38.936.0 - 48.0 %TBHTBH MCV86.681.0 - 99.0 fLTBHTBH MCH30.326.7 - 34.0 pgTBHTBH MCHC35.029.9 - 35.2 g/dLTBHTBH RDW12.811.0 - 15.0 %TBHTBH PLT 828044 - 450 10 3/uLTBHTBH MPV10.79.5 - 13.5 [...] Jesika DOCLINISYNCFinal Result Performing OrganizationAddressCity/State/ZIP CodePhone Number ABHIJITISYNC TBH * (ABNORMAL) TBH URINE T PROTEIN CREAT RATIO (06/23/2025 4:10 PM EST)Component ValueRef RangeTest MethodAnalysis TimePerformed AtPathologist SignatureTOTAL PROTEIN URINE HRRURE19.0(H)<=11.9 mg/dLTBHCREATININE URINE NGWYPT517.5320.00 - 300.00 mg/dLTBHPROTEIN CREATININE RATIO URINE0.09TBHSpecimen (Source) Anatomical Location / LateralityCollection Method / VolumeCollection Time Received Time06/23/2025 4:10 PM EST06/23/2025 4:21 PM EST Narrative CLINISYNC - 06/24/2025 12:35 PM EST Authorizing ProviderResult TypeResult StatusCorey Jesika DOCLINISYNCFinal Result Performing OrganizationAddressCity/State/ZIP CodePhone Number CLINISYNC TBH * (ABNORMAL) TBH TOTAL PROTEIN 24 HOUR URINE (06/23/2025 7:45 AM EST)Component ValueRef RangeTest MethodAnalysis TimePerformed AtPathologist SignatureTOTAL PROTEIN URINE SUJBQX06.2(H)<=11.9 mg/dLTBHTOTAL VOLUME 24 HOUR URINE1,780 mL/24hrTBHTBH TOTAL PROTEIN 24 HOUR YGEGC396.2(H)<=149.1 mg/24hrTBHSpecimen (Source)Anatomical Location / LateralityCollection Method / VolumeCollection TimeReceived Time06/23/2025 7:45 AM EST06/23/2025 4:21 PM EST Narrative CLINISYNC - 06/24/2025 12:46 PM EST Authorizing ProviderResult TypeResult StatusCorey Jesika DOCLINISYNCFinal Result Performing OrganizationAddressCity/State/ZIP CodePhone Number [facility] * OB follow up transabdominal approach (06/21/2025 [...] MD Authorizing ProviderResult TypeResult StatusPatricia Roy NPIMG OB US PROCEDURESFinal Result * (ABNORMAL) RECURRENT VAGINITIS (HTRX) (04/15/2025 11:40 AM EDT)ComponentValue Ref RangeTest MethodAnalysis TimePerformed AtPathologist SignatureATOPOBIUM ITCSIXK571.961 - 24.689 ppm04/16/2025 6:40 AM EDTHealth[facility]Rx [facility] ATOPOBIUM VAGINAENot Jsmfbvbm53.961 - 24.689 ppm04/16/2025 6:40 AM EDT [facility] HospitalBVAB 2,3 (BACTERIAL VAGINOSIS ASSOCIATED BACTERIA 2, 3); MOBILUNCUS AZR960.961 - 24.689 ppm04/16/2025 6:40 AM EDTHealthTrackRx at [facility] HospitalBVAB 2,3 (BACTERIAL VAGINOSIS ASSOCIATED BACTERIA 2, 3); MOBILUNCUS SPP Not Bpqirgyp33.961 - 24.689 ppm04/16/2025 6:40 AM EDTHealthTrackRx at [facility] ROSALBA ALBICANS, PARAPSILOSIS, MJNPSNEXGU75.886(A)23.000 - 30.347 ppm 04/16/2025 6:40 AM EDTHealthTrackRx at [facility] HospitalCANDIDA ALBICANS, PARAPSILOSIS, TROPICALISDetected(A)23.000 - 30.347 ppm04/16/2025 6:40 AM EDTHealthTrackRx at [facility] HospitalCANDIDA ALRRKDXC966.000 - 31.618 ppm04/16/2025 6:40 AM EDT [facility] HospitalCANDIDA GLABRATANot Eobnkbpo97.000 - 31.618 ppm 04/16/2025 6:40 AM EDTHealthTrackRx at [facility] HospitalCANDIDA GBQPNC464.000 - 30.873 ppm04/16/2025 6:40 AM EDTHealthTrackRx at [facility] HospitalCANDIDA KRUSEINot Detected 23.000 - 30.873 ppm04/16/2025 6:40 AM EDTHealthTrackRx at [facility] HospitalCHLAMYDIA MQOECRQOQCM474.000 - 31.586 ppm04/16/2025 6:40 AM EDTHealthTrackRx at [facility] CHLAMYDIA TRACHOMATISNot Bznpihcz81.000 - 31.586 ppm0912/2024 6:40 AM EDT [facility] LabPortGARDNERELLA TRTINCCUV97.384(A)19.961 - 24.689 ppm 04/16/2025 6:40 AM EDTHealthTrackRx at LabPortGARDNERELLA VAGINALISDetected(A) 19.961 - 24.689 ppm04/16/2025 6:40 AM EDTHealthTrackRx at LabPortMEGASPHAERA (TYPES 1, 2)019.961 - 24.689 ppm04/16/2025 6:40 AM EDTHealthTrackRx at [facility] MEGASPHAERA (TYPES 1, 2)Not Cwadxsku19.961 - 24.689 ppm04/16/2025 6:40 AM EDT [facility] LabPortNEISSERIA GCTOFMWALYS017.000 - 32.587 ppm04/16/2025 6:40 AM EDTHealthTrackRx at LabPortNEISSERIA GONORRHOEAENot Czjtozqa91.000 - 32.587 ppm04/16/2025 6:40 AM EDTHealthTrackRx at LabPortTRICHOMONAS VAGINALIS0 23.000 - 31.995 ppm04/16/2025 6:40 AM EDTHealthTrackRx at LabPortTRICHOMONAS VAGINALISNot Sanwvwdj12.000 - 31.995 ppm04/16/2025 6:40 AM EDTHealthTrackRx at LabPortMYCOPLASMA RVVNWQSKWM477.961 - 24.689 ppm04/16/2025 6:40 AM EDT [facility] at LabPortMYCOPLASMA GENITALIUMNot Hkypfslj93.961 - 24.689 ppm 04/16/2025 6:40 AM EDTHealthTrackRx at LabPortSpecimen (Source)Anatomical Location / LateralityCollection Method / VolumeCollection TimeReceived Time Epyrma8904/15/2025 11:40 AM EDT04/16/2025 1:52 AM EDT Narrative Authorizing ProviderResult TypeResult StatusCorey Jesika DOLAB BLOOD ORDERABLES Final ResultPerforming OrganizationAddressCity/State/ZIP CodePhone Number [facility] [address] [place] [address] * IGP,APTIMA HPV,AGE GDLN (04/15/2025 10:42 AM [...] at: 01 =G ?[facility] ?? [address] ??[phone] ?? Beverly Nguyen MD, IGP, RFX APTIMA HPV ASCUNote.TBHComment: ?? TESTS ? RESULT ??FLAG ??UNITS ?REF RANGE ??LAB DIAGNOSIS: ?02 ?? NEGATIVE FOR INTRAEPITHELIAL LESION OR MALIGNANCY. ?? FUNGAL ORGANISMS MORPHOLOGICALLY CONSISTENT WITH ROSALBA SPECIES ARE ?? PRESENT. Specimen adequacy: ?02 ?? Satisfactory for evaluation. ??Endocervical and/or squamous metaplastic ?? cells (endocervical component) are present. Performed by: ? 02 ?? Sonia Beckham Fire Engine Operator (ASCP) . ? 02 Note: ? [...] High,A-Abnormal,AA-Critical Abnormal Performed at: 02 WB ?[facility] ?? [address] [place], [place] ??[phone] ?? Beverly Nguyen MD, Performed at: ??=G - [facility] [address], [place] ??[phone] Bible Worker: Beverly Nguyen MD, Phone: ??[phone] Performed at: ??WB - [facility] [address], [place] ??[phone] Bible Worker: Beverly Nguyen MD, Phone: ??[phone] Specimen (Source)Anatomical Location / LateralityCollection Method / Volume Collection TimeReceived Time04/15/2025 10:42 AM EDT04/15/2025 2:49 PM EDT Narrative CLINISYNC - 04/19/2025 9:09 AM EDT [facility]ATUL[facility]-ALONE ENDOCERVIX Authorizing ProviderResult TypeResult StatusCorey Jesika DOLAB BLOOD ORDERABLES Final ResultPerforming OrganizationAddressCity/State/ZIP CodePhone Number CLINISYTX TBH * Pap Smear (04/15/2025 12:00 AM EDT)Specimen (Source)Anatomical Location / LateralityCollection Method / VolumeCollection TimeReceived TimeSwabCervical swab / Unknown Narrative Authorizing ProviderResult TypeResult StatusCorey Jesika DOLAB CYTOLOGY ORDERABLESFinal ResultPerforming OrganizationAddressCity/State/ZIP CodePhone Number EXTERNAL LAB from Last 3 Months Insurance * Guarantor: Yenifer Templeton TypeRelation to PatientDate of BirthPhone [facility] Address[facility]/CsinojRaiq69/09/[address] [place] [phone] * Guarantor: Yenifer Templeton TypeRelation to PatientDate of BirthPhone [facility]illing Address[facility]/MogzikYtju13/09/[address], [address] [place] [phone] Care Teams Team MemberRelationshipSpecialtyStart DateEnd Michelle Pabon MD [address] [place] [address] PCP - [facility]Unity[facility] Centerly Medicine03/25/24
--- OUTSIDE RECORDS SUMMARY | 2025-07-12 15:59 | XMS_ITS | Encounter Summary ---
Author Organization [facility] Address [address] [place] [address] Care Team Providers Care Marketing Production Specialist Name Role Phone Michelle Pabon MD Primary Care Provider [phone] Encounter Details DateTypeDepartmentCare Team (Latest Contact Info)Nwxkboltxxm19/17/2025linisync Result Encounter [facility] External Department Unsolicited Say Roy, NELLY [address] [place] [address] Social History Tobacco UseTypesPacks/DayYears UsedDateSmoking Tobacco: NeverAlcohol UseStandard Drinks/WeekCommentsNever0 (1 standard drink = 0.6 oz pure alcohol) Estimated Date of ZnouboapXpweifjpRcy77/15/2026ased on last menstrual period of 11/19/2024 (Approximate)Sex and Gender InformationValueDate RecordedSex Assigned at BirthNot on fileLegal AkmJjekrb76/15/2023 10:09 PM EDTGender IdentityNot on fileSexual OrientationNot on filedocumented as of this encounter Plan of Treatment DateTypeDepartmentCare Team (Latest Contact Info)Ezdsjpdmyqz69/09/2025 8:50 AM ESTRoutine [facility] CHINCHILLA [address] [place] [address] Say Roy, NELLY [address] [place] [address] documented as of this encounter Procedures Procedure NamePriorityDate/TimeAssociated DiagnosisCommentsUS OB BPP W NON-EKBXIM3806/28/2025 5:27 PM EST documented in this encounter Results * US OB BPP W NON-STRESS (06/28/2025 5:27 PM EST)Anatomical Region LateralityModalityOtherSpecimen (Source)Anatomical Location / Laterality Collection Method / VolumeCollection TimeReceived Time06/28/2025 5:27 PM EST Narrative 06/28/2025 5:29 PM EST [facility] ?[address] ? [place] [id number] ? Ultrasound Report ? Signed ? Patient: MEREDITH TEMPLETON S ?MR#: [id number] ?? : 2000 ?Acct:[id number] ?? Age/Sex: 24 / F ?ADM Date: ?? Loc: [facility] ??253-1 ? Attending Dr: Abad Canchola D.O. ? Ordering Physician: Say Roy ?? Date of Service: 06/28/25 ?? Procedure(s): US OB BPP w non-stress ?? Accession Number(s): [id number] ? cc: Michelle Pabon M.D.; Say Roy ? [facility] ? [address] ? [place] [address] ? Patient Name: ?? MEREDITH TEMPLETON ? MRN: [facility]:[id number] ? date: 2000 ?Sex: F ?? Assigned Patient Location: [facility] ?? Current Patient Location: [facility] ?? Accession/Order Number: [id number] ?? Exam Date: 06/28/2025 ??16:13 ?Report Date: [...] M.D. ??06/28/2025 5:27 PM ? Dictation Location: [facility]20 ? Electronically authenticated by: [id number] ??Y ?? Date: 06/28/2025 ??17:27 ? Dictated By: ?Ronan Chance D.O. ? Signed By: ?06/28/25 1729 ? DD/ ? TD/TT: ? Orthopedically Impaired Teacher: Procedure Note Radiology, Radiologist, - 06/28/2025 [place] [address] Ultrasound Report Signed Patient: MEREDITH TEMPLETON SMR#: [id number] : 2000Acct:[id number] Age/Sex: Date: Loc: [facility] 253-[address]: Abad Canchola D.O. Ordering Physician: Say Roy Date of Service: 06/28/25 Procedure(s): US OB BPP w non-stress Accession Number(s): [id number] cc: Michelle Pabon M.D.; Say Roy The [place] [address] Patient Name: MEREDITH TEMPLETON MRN: [id number] date: 2000 Sex: F Assigned Patient Location: [facility] Current Patient Location: [facility] Accession/Order Number: [id number] Exam Date: 06/28/2025 16:13 Report Date: 06/28/2025 [...] Chance M.D. 06/28/2025 5:27 PM Dictation Location: [place] [address] Electronically authenticated by: [id number] Y Date: 7:27 Dictated By: Ronan Chance D.O. Signed By:06/28/251728 DD/ 26 TD/TT: Orthopedically Impaired Teacher: Authorizing ProviderResult TypeResult StatusSay Roy NPCLINISYNC IMAGING Final Result documented in this encounter Visit Diagnoses Not on filedocumented in this encounter Care Teams Team MemberRelationshipSpecialtyStart DateEnd Date Michelle Pabon MD [address] [place] [address] PCP - GeneralFamily Medicine03/25/24documented as of this encounter
--- OUTSIDE RECORDS SUMMARY | 2025-07-12 15:59 | XMS_ITS | Clinical Summary ---
Author Organization [facility] Address [address], [address] [place] [address] Care Team Providers Care Monotyper Name Role Phone Annel Yuen [facility] Primary Care Provider [phone] Social History Tobacco UseTypesPacks/DayYears UsedDateSmoking Tobacco: Never Assessed CommentsUnknownSex and Gender InformationValueDate RecordedSex Assigned at Not on fileLegal UlaJznbdm10/01/2023 10:58 AM EDTGender IdentityNot on file Sexual OrientationNot on file Plan of Treatment Health MaintenanceDue DateLast DoneCommentsDTaP/Tdap/Td vaccine (1 - Tdap) 2018Flu vaccine (#1)5COVID-19 Vaccine ( - season) 2025Polio vaccineAged OutNo longer eligible based on patient's age to complete this topic Insurance * Guarantor: Yenifer ViverosAccount TypeRelation to PatientDate of BirthPhone Billing AddressPersonal/BsexquJsuh08/09/[address] [facility] [place] [address] Care Teams Team MemberRelationshipSpecialtyStart DateEnd Date Annel Yuen, OIM CONSULTANT - ASSISTANT UNIT FORESTER [address] [place] [address] PCP - GeneralNurse Practitioner01/10/23
--- OUTSIDE RECORDS SUMMARY | 2025-07-12 15:59 | XMS_ITS | Encounter Summary ---
Author Organization [facility] Address [address] [facility] [place] [address] Care Team Providers Care Interlocking And Signal Mechanic Name Role Phone Michelle Pabon MD Primary Care Provider [phone] Encounter Details DateTypeDepartmentCare Team (Latest Contact Info)Pkztxfinmwd25/28/2025linisync Result Encounter [facility] External Department Unsolicited Say Roy, NELLY [address] [place] [address] Social History Tobacco UseTypesPacks/DayYears UsedDateSmoking Tobacco: NeverAlcohol UseStandard Drinks/WeekCommentsNever0 (1 standard drink = 0.6 oz pure alcohol) Estimated Date of QzkhaqhvOzxnwvbqOvd55/15/2026ased on last menstrual period of 11/19/2024 (Approximate)Sex and Gender InformationValueDate RecordedSex Assigned at BirthNot on fileLegal MnoYeysff42/15/2023 10:09 PM EDTGender IdentityNot on fileSexual OrientationNot on filedocumented as of this encounter Plan of Treatment DateTypeDepartmentCare Team (Latest Contact Info)Kajwargfdhy41/09/2025 8:50 AM ESTRoutine [facility] [place]INCHILLA [address] [place] [address] Say Roy, NELLY [address] [place] [address] documented as of this encounter Procedures Procedure NamePriorityDate/TimeAssociated DiagnosisCommentsUS OB BPP W NON-WQKLDX1007/09/2025 3:47 PM EST documented in this encounter Results * US OB BPP W NON-STRESS (07/09/2025 3:47 PM EST)Anatomical Region LateralityModalityOtherSpecimen (Source)Anatomical Location / Laterality Collection Method / VolumeCollection TimeReceived Time07/09/2025 3:47 PM EST Narrative 07/09/2025 3:50 PM EST [facility] ?[address] ? [place] [address] ? Ultrasound Report ? Signed ? Patient: MEREDITH TEMPLETON S ?MR#: [id number] ?? : 2000 ?Acct:[id number] ?? Age/Sex: 24 / F ?ADM Date: 07/09/25 ?? Loc: [facility] ??255-1 ? Attending Dr: Say Roy ? Ordering Physician: Say Roy ?? Date of Service: 07/09/25 ?? Procedure(s): US OB BPP w non-stress ?? Accession Number(s): [id number] ? cc: Michelle Pabon M.D.; Say Roy ? [facility] ? [address] ? [place] [address] ? Patient Name: ?? MEREDITH TEMPLETON ? MRN: [facility]:[id number] ? date: 2000 ?Sex: F ?? Assigned Patient Location: [facility] ?? Current Patient Location: [facility] ?? Accession/Order Number: [id number] ?? Exam Date: 07/09/2025 ??15:02 ?Report Date: 07/09/2025 ??15:47 ? At the request of: ?? SAY ??ASHLEY ? Procedure: ??US OB BPP w non-stress ? Ultrasound biophysical profile ? INDICATION: Hypertension during ? COMPARISON: 06/28/2025 ? FINDINGS IMPRESSION: Cephalic position. ?? heart rate 150 beats per ?? minutes. ??VALENTINA: 10.4 cm. ??Biophysical profile score 8/8. ? Impression dictated by: Duncan Jones M.D. ??07/09/2025 3:47 PM ? Dictation Location: [facility]-PC-29 ? Electronically authenticated by: [id number] ??Y ?? Date: 07/09/2025 ??15:47 ? Dictated By: ?Duncan Jones M.D. ? Signed By: ?11/28/25 1550 ? DD/DT: 07/09/ 1547 ? TD/TT: ? Flower Buncher Or Picker: Procedure Note Radiology, Radiologist, - 07/09/2025 [place] [address] Ultrasound Report Signed Patient: MEREDITH TEMPLETON SMR#: [id number] : 2000Acct:[id number] Age/Sex: 24 / FADM Date: 07/09/25 Loc: [facility] 255-[address]: Say Roy Ordering Physician: Say Roy Date of Service: 07/09/25 Procedure(s): US OB BPP w non-stress Accession Number(s): [id number] cc: Michelle Pabon M.D.; Say Roy [place] [address] Patient Name: MEREDITH TEMPLETON MRN: [id number] date: 2000 Sex: F Assigned Patient Location: [facility] Current Patient Location: [facility] Accession/Order Number: [id number] Exam Date: 07/09/2025 15:02 Report Date: 07/09/2025 15:47 At the request of: SAY ROY Procedure: US OB BPP w non-stress Ultrasound biophysical profile INDICATION: Hypertension during COMPARISON: 06/28/2025 FINDINGS IMPRESSION: Cephalic position. heart rate 150 beatsper minutes. VALENTINA: 10.4 cm. Biophysical profile score 8/8. Impression dictated by: Duncan Jones M.D. 07/09/2025 3:47 PM Dictation Location: [place] [address] Electronically authenticated by: [id number] Y Date: 5:47 Dictated By: Duncan Jones M.D. Signed By:07/09/25 1550 DD/ 1547 TD/TT: Flower Buncher Or Picker: Authorizing ProviderResult TypeResult StatusSay Roy NPCLINISYNC IMAGING Final Result documented in this encounter Visit Diagnoses Not on filedocumented in this encounter Care Teams Team MemberRelationshipSpecialtyStart DateEnd Date Michelle Pabon MD [address] [place] [address] PCP - GeneralFamily Medicine03/25/24documented as of this encounter
--- OUTSIDE RECORDS SUMMARY | 2025-07-12 15:59 | XMS_ITS | Encounter Summary ---
Author Organization [facility] Address [address] [place] [address] Care Team Providers Care Chuck Tender Name Role Phone Michelle Pabon MD Primary Care Provider [phone] Encounter Details DateTypeDepartmentCare Team (Latest Contact Info)Yewsmoknwek97/25/2025amboo flowsheet ENRIQUE [facility]A [address] [facility] [place] [place] [address] Abad Canchola, [address] [place] [address] Social History Tobacco UseTypesPacks/DayYears UsedDateSmoking Tobacco: NeverAlcohol UseStandard Drinks/WeekCommentsNever0 (1 standard drink = 0.6 oz pure alcohol) Estimated Date of CnjgwjzwXpqzzhhcMyc06/15/2026Based on last menstrual period of 11/19/2024 (Approximate)Sex and Gender InformationValueDate RecordedSex Assigned at BirthNot on fileLegal ZpqJccalc23/15/2023 10:09 PM EDTGender IdentityNot on fileSexual OrientationNot on filedocumented as of this encounter Plan of Treatment DateTypeDepartmentCare Team (Latest Contact Info)Bsjkhoiaykb96/09/2025 8:50 AM ESTRoutine NOM[facility]imah [address]A [address] [place] [address] Patricia Roy, PROSECUTING ATTORNEY [address] [place] [address] documented as of this encounter Visit Diagnoses Not on filedocumented in this encounter Care Teams Team MemberRelationshipSpecialtyStart DateEnd Date Michelle Pabon MD [address] [place] [phone] PCP - GeneralFamily Medicine03/25/24documented as of this encounter
--- OUTSIDE RECORDS SUMMARY | 2025-07-12 15:59 | XMS_ITS | Encounter Summary ---
Author Organization [facility] Address [address] [place] [address] Care Team Providers Care Station Supervisor Name Role Phone Michelle Pabon MD Primary Care Provider [phone] Encounter Details DateTypeDepartmentCare Team (Latest Contact Info)Rwbgazyxxnh42/17/2025amboo flowsheet NOMFatimah [address]A [address] [place] [address] Patricia Roy, POWERHOUSE ELECTRICIAN APPRENTICE [address] [address] Social History Tobacco UseTypesPacks/DayYears UsedDateSmoking Tobacco: NeverAlcohol UseStandard Drinks/WeekCommentsNever0 (1 standard drink = 0.6 oz pure alcohol) Estimated Date of AsccrixcVnhkbgfgBur49/15/2026Based on last menstrual period of 11/19/2024 (Approximate)Sex and Gender InformationValueDate RecordedSex Assigned at BirthNot on fileLegal SktLrxnvr74/15/2023 10:09 PM EDTGender IdentityNot on fileSexual OrientationNot on filedocumented as of this encounter Plan of Treatment DateTypeDepartmentCare Team (Latest Contact Info)Qrntympqewi69/09/2025 8:50 AM ESTRoutine NOMFatimah [address]ILLA [address] [place] [address] Patricia Roy, POWERHOUSE ELECTRICIAN APPRENTICE [address] [place] [address] documented as of this encounter Visit Diagnoses Not on filedocumented in this encounter Care Teams Team MemberRelationshipSpecialtyStart DateEnd Date Michelle Pabon MD [address] [place] [phone] PCP - GeneralFamily Medicine03/25/24documented as of this encounter
[2025-07-12 16:02] VITALS: BP 147/91; PULSE 86
[2025-07-12 16:18] VITALS: BP 144/90; PULSE 90
--- NOTE | 2025-07-12 16:25 | US_ITS ---
[place] [id number] Patient Name: MEREDITH TEMPLETON MRN: [id number] date: 2000 Sex: F Assigned Patient Location: [facility] Current Patient Location: [facility] Accession/Order Number: [id number] Exam Date: 07/12/2025 16:32 Report Date: 07/12/2025 17:17 At the request of: SAY RAMIREZ Procedure: US OB BPP w non-stress Ultrasound biophysical profile INDICATION: Hypertension during COMPARISON: 07/09/2025 FINDINGS IMPRESSION: Cephalic position. heart rate 153 beats per minutes. VALENTINA: 11.3 cm. Biophysical profile score 8/8. Impression dictated by: Duncan Jones M.D. 07/12/2025 5:17 PM Dictation Location: [place] [address] Electronically authenticated by: [id number] Y Date: 07/12/2025 17:17
--- OUTSIDE RECORDS SUMMARY | 2025-07-12 16:30 | XMS_ITS | CCD ---
Author Organization [facility] Care Team Providers Care Cord Maker Name Role Phone JESIKA, DR CALVIN Primary [...] МАРИЯ Olivares Primary Care Unavailable JESIKA, DR CALIVN Attending Unavailable Malick OFFICE MACHINE REPAIR SHOP SUPERVISOR - AUTOMOTIVE ARTIST, Annel Concha Primary Care Provider ANNEL YUEN Referring Unavailable MALICK, ANNEL Concha Primary Care Unavailable Michelle Pabon MD Primary Care Provider Malick OFFICE MACHINE REPAIR SHOP SUPERVISOR-RV SERVICE TECHNICIAN, Annel Heath Primary Care Provider Unavailable Primary Care Provider Michelle Hernandez MD Primary Care Provider [phone] Michelle Pabon MD Primary Care Provider [phone] Malick OFFICE MACHINE REPAIR SHOP SUPERVISOR - AUTOMOTIVE ARTIST, Annel Concha Primary Care Provider [phone] RAFAEL LARA Referring Unavailable MALICK, ANNEL Kern Primary Care Unavailable Cm LAUGHLIN, Michelle Primary Care Provider [phone] ABAD CANCHOLA Attending Unavailable SAY ROY Attending Unavailable ABAD CANCHOLA Attending Unavailable SHAGUFTA ONEAL Attending Unavailable GREGORIO SHAGUFTA Referring Unavailable ABAD CANCHOLA Attending Unavailable ASY ROY Attending Unavailable GREGORIO, SHAGUFTA Attending Unavailable SAY ROY Referring Unavailable ABAD CANCHOLA Attending Unavailable Medications Current Medications MedicationDrug Class(es)DatesSig (Normalized)Sig (Original)amoxicillin 875 mg / clavulanate 125 mg oral tablet (1 source)Penicillin-class AntibacterialStart: 08-02-2023 End: 94-35-7660zchj 1 tablet by mouth once in the morningamoxicillin-pot clavulanate (AUGMENTIN) 875-125 mg per tablet Take 1 tablet by mouth in the morningand 1 tablet before bedtime. Do all this for 7 days. 14 tablet 0 08/02/2023 08/09/2023 Activedocusate sodium 100 mg oral capsule (4 sources)Start: 01-13-2025 End: 89-77-0197siqp 1 capsule by mouth in the morningdocusate sodium (Colace) 100 MG capsule Indications: Constipation, unspecified constipation type Take 1 capsule (100 mg) by mouth in the morning and 1 capsule (100 mg) before bedtime. Do all this for10 days. 20 capsule 01/13/2025 01/23/2025 Activeloratadine 10 mg oral tablet (6 sources) End: 90-58-2508bfcx 1 tablet by mouth once dailyloratadine (Claritin) 10 MG tablet Take 10 mg by mouth Daily 01/13/2025 Discontinuedlosartan potassium 25 mg oral tablet (5 sources)Angiotensin 2 Receptor BlockerStart: 02-28-2024 End: 07-18-7165buhi 25 mg by mouth once dailyLosartan Active 25 MG PO Daily February 28, 2024 12:00ammetFORMIN hydrochloride 500 mg oral tablet (6 sources)BiguanideStart: 12-01-2024 End: 93-00-7053bmkl 1 tablet by mouth at mealtimemetFORMIN (Glucophage) 500 MG tablet Indications: PCOS (polycystic ovarian syndrome) , Insulin resistance Take 1 tablet (500 mg) by mouth in the morning. Take with meals. 30 tablet 11 12/01/2024 01/13/2025 Discontinuedmetoclopramide 10 mg oral tablet (20 sources)Dopamine-2 Receptor AntagonistStart: 04-15-2025 End: 31-85-0686llporgmsofwsbt (Reglan) 10 MG tablet Indications: Nausea and vomiting during (HHS-HCC) Take 1 tablet (10 mg) by mouth in the morning and 1 tablet (10 mg) at noon and 1 tablet (10 mg) in theevening. Take before meals. Take 1 tablet by mouth 30 minutes prior to meals 3 times daily as needed for nausea. 90 tablet 1 04/15/2025 ActiveStart: 01-13-2025 End: 27-27-8487suoknFWJYPERZ 0.0075 mg/mg vaginal gel (3 sources)Nitroimidazole AntimicrobialStart: 05-10-2025 End: 42-58-4984gvojxRMWTJZCY (Metrogel) 0.75 % vaginal gel Indications: BV (bacterial vaginosis) Insert into the vagina Daily for 5 days 70 g 05/10/2025 05/15/2025 ActiveMultiple Vitamin (multivitamin) tablet (6 sources) End: 35-93-3529szcf 1 tablet by mouth once dailyMultiple Vitamin (multivitamin) tablet Take 1 tablet by mouth Daily 01/13/2025 Discontinuedtake 1 tablet by mouth once dailyMultiple Vitamin (multivitamin) tablet Take 1 tablet by mouth Daily Ehpyoh71 hr NIFEdipine 30 mg extended release oral tablet (7 sources)Dihydropyridine Calcium Channel BlockerStart: 97-13-1316mqrx 1 tablet by mouth once daily, then take 1 tablet by mouth every twenty-four hours NIFEdipine CC (Adalat CC) 30 MG 24 hr tablet Take 30 mg by mouth Daily 10/20/2024 Activeondansetron 4 mg disintegrating oral tablet (20 sources)Serotonin-3 Receptor AntagonistStart: 90-87-5313rxid 1 tablet by mouth every eight hours as needed for nauseaondansetron ODT (Zofran-ODT) 4 MG disintegrating tablet Take 4 mg by mouth every 8 (eight) hours ifneeded for nausea 02/22/2025 ActiveStart: 01-11-2025 End: 42-88-7149bbnu 1 tablet by mouth every six hours for nauseaondansetron ODT (Zofran-ODT) 4 MG disintegrating tablet Indications: Nausea and vomiting during ([facility]) Take 1 tablet (4 mg) by mouth every 6 (six) hours if needed for nausea or vomiting 30 tablet 2 01/11/2025 02/10/2025 Activephentermine hydrochloride 37.5 mg oral tablet (3 sources)Sympathomimetic Amine AnorecticStart: 01-09-2023 End: 37-05-4554npdo 33-33.9 tablets by mouth once daily before breakfast phentermine (ADIPEX-P) 37.5 mg tablet Indications: Class 1 obesity due to excess calories without serious comorbidity with body mass index (BMI) of 33.0 to 33.9 in adult Take 1 tablet (37.5 mg total)by mouth every morning before breakfast. 30 tablet 0 03/05/2023 08/02/2023 Discontinued (Therapy completed)predniSONE 20 mg oral tablet (1 source)Start: 08-02-2023 End: 95-69-6527hvhn 1 tablet by mouth at mealtimepredniSONE (DELTASONE) 20 mg tablet Take 1 tablet (20 mg total) by mouth in the morning for 7 days.Take with food. 7 tablet 0 08/02/2023 08/09/2023 ActivePrenatal 27-1 MG tablet (20 sources)take 1 tablet by mouth once dailyPrenatal 27-1 MG tablet Take 1 tablet by mouth Daily ActiveSemaglutide (Weight Loss) (1 source)Start: 39-75-3849Mfpthdjhirf (Weight Loss) (Wegovy) 0.25 mg/0.5 mL pen injector Active 0.25 MG SUBCUT every week February 28, 2024 12:00am administer weeks 1 through 4 of therapy Completed/Discontinued Medications MedicationDrug Class(es)DatesSig (Normalized)Sig (Original)24 hr buPROPion hydrochloride 150 mg extended release oral tablet (10 sources)AminoketoneStart: 03-06-2024 End: 97-94-2428lsbl 1 tablet by mouth every twenty-four hours in the morning buPROPion XL (Wellbutrin XL) 150 MG 24 hr tablet Take 150 mg by mouth in the morning. 03/06/2024 12/01/2024 DiscontinuedStart: 12-05-2023 End: 42-44-8205pxwo 150 mg by mouth once daily in the morningBupropion Hcl Active 150 MG PO Every morning January 07, 2024 12:59pm End: 78-58-4904btXKSUjgz SR (Wellbutrin SR) 150 MG 12 hr tablet 12/01/2024 DiscontinuedDULoxetine 60 mg delayed release oral capsule (12 sources)Serotonin and Norepinephrine Reuptake InhibitorStart: 12-05-2023 End: 40-61-0325dmau 1 capsule by mouth once dailyDuloxetine (Cymbalta) 30 mg capsule,delayed release(DR/EC) Discontinued 30 MG PO Daily 14 14 December 05, 2023 12:00am December 18, 2023 1:01pmStart: 01-09-2023 End: 47-38-0696alfj 1 capsule by mouth once dailyDuloxetine (Cymbalta) 60 mg capsule,delayed release(DR/EC) Discontinued 60 MG PO Daily December 05, 2023 12:00am December 05, 2023 4:15pmethinyl estradiol 0.035 mg / norgestimate 0.25 mg oral tablet (8 sources)Progestin, EstrogenStart: 01-16-2024 End: 28-99-9913ptxtbflkrjcx-ethinyl estradiol (Ortho-Cyclen) 0.25-35 MG-MCG tablet Indications: Encounter for surveillance of contraceptive pills Take 1 tablet by mouth Daily 84 tablet 3 01/16/2024 12/01/2024 DiscontinuedStart: 17-31-0539eaot 1 tablet by mouth once dailyNorgestimate-Ethinyl Estradiol Active 1 TAB PO Daily December 05, 2023 12:00amStart: 82-35-5625rrom 1 tablet by mouth once in the morningnorgestimate-ethinyl estradioL (ORTHO-CYCLEN) 0.25-35 mg-mcg per tablet Take 1 tablet by mouth in the morning. 12/18/2022 ActiveStart: 86-73-5786uadb 1 tablet by mouth once in the morningnorgestimate-ethinyl estradioL (ORTHO-CYCLEN) 0.25-35 mg-mcg per tablet Take 1 tablet by mouth in the morning. 0 12/18/2022 Rpzwms22 hr loratadine 10 mg / pseudoephedrine sulfate 240 mg extended release oral tablet (5 sources)alpha-Adrenergic AgonistStart: 08-02-2023 End: 77-23-7753dism 10-240 mg by mouth every twenty-four hours in the morning Loratadine-D 24HR 10-240 MG 24 hr tablet Take 1 tablet by mouth in the morning. 08/02/2023 12/01/2024 DiscontinuedStart: 08-02-2023 End: 42-82-3218bkkd 1 tablet by mouth once in the [...] unspecified; Translations: [Mixed anxiety and depressive disorder]Onset: 678289-20-6187JqdkizoWirxgirqycoqe (5 sources)Endometriosis of pelvic peritoneum; Translations: [Endometriosis (clinical)]Onset: 298634-34-5240VnpldcbJbjxwr infertility (2 sources)Female infertility; Translations: [Female infertility, unspecified] 03-77-1917GvfncygBezlahhxmmfg complicating ; childbirth and the puerperium (2 sources)-induced hypertension; Translations: [Gestational [-induced] hypertension withoutsignificant proteinuria, unspecified trimester]48-44-6293NlyehddkEtsmqdwhvhwcq and screening for infectious disease (3 sources)Encounter for screening for human papillomavirus (HPV); Translations: [Exposure to sexually transmissible disorder]Onset: 234305-30-5071Zvxcljts Menstrual disorders (7 sources)Excessive and frequent menstruation with regular cycle; Translations: [Dysmenorrhea, unspecified]Onset: 06-87-2963GeblqogPwdl disorders (2 sources)Major depression in full remission; Translations: [Major depressive disorder, single episode, in full remission]Onset: hronic Other complications of (4 sources)Vomiting of , unspecified; Translations: [Unspecified vomiting of , unspecified as to episode of care or not applicable] 28-81-8445NkkxnjxeZdcri complications of (2 sources) size does not accord with dates; Translations: [Uterine size- date discrepancy, unspecified trimester]17-30-5272IwuycxbnIckyp endocrine disorders (2 sources)Polycystic ovary syndrome; Translations: [Polycystic ovarian syndrome]08-65-6347EzwkdwtMiwpp female genital disorders (1 source)Unspecified dyspareunia; Translations: [UNSPECIFIED DYSPAREUNIA]Onset: 92-36-2073LtbgipbUdrub female genital disorders (1 source)Abnormal uterine and vaginal bleeding, unspecified; Translations: [ABNORMAL UTERINE VAGINAL BLEED UNS]Onset: 16-21-5577GreisdcQckrg female genital disorders (2 sources)Abnormal uterine bleeding; Translations: [Abnormal uterine and vaginal bleeding, unspecified]14-73-4494GigtzvyHyhos female genital disorders (4 sources)Vaginal discharge; Translations: [Other specified noninflammatory disorders of vagina]40-25-5752HbzfoauaZtbvo gastrointestinal disorders (2 sources)Constipation; Translations: [Constipation, unspecified]01-13-2025 EpisodicOther nutritional; endocrine; and metabolic disorders (1 source)Obesity, unspecified; Translations: [OBESITY UNSPECIFIED]Onset: 63-83-9149ZzvpnshJptyk nutritional; endocrine; and metabolic disorders (2 sources)Insulin resistance; Translations: [Insulin resistance]12-01-2024 ChronicOther and delivery including normal (16 sources); Translations: [Encounter for supervision of normal , unspecified, unspecified trimester]47-57-6683DybotonpDdjcy screening for suspected conditions (not mental disorders or infectious disease) (8 sources)Encounter for screening for malignant neoplasm of cervix; Translations: [Patient encounter status]Onset: 31-10-4295IgjgsmegDdyozhnsvlwnwt and other problems of amniotic cavity (2 sources)Subchorionic hematoma; Translations: [Other specified disorders of amniotic fluid and membranes, first trimester, not applicable or unspecified] 15-05-7600CgmlytpgMydrlcxc codes; unclassified (2 sources)Gestation period, 13 weeks; Translations: [13 weeks gestation of ]60-66-0256YqbbhnpuQmvewqqf codes; unclassified (2 sources)Gestation period, 17 weeks; Translations: [17 weeks gestation of ]28-13-6523BwvzlolgBlkgjsro codes; unclassified (2 sources)Gestation period, 21 weeks; Translations: [21 weeks gestation of ]72-61-9858UnbpnqpoVzgqtsqr codes; unclassified (2 sources)Gestation period, 24 weeks; Translations: [24 weeks gestation of ]51-37-2225PjaaxunoQlirawtl codes; unclassified (4 sources)Gestation period, 28 weeks; Translations: [28 weeks gestation of ]13-77-4546DtmgrsreWatrgeueqzbe (1 source)CONTACT W/AND (SUSP) EXPOS COVID-19; Translations: [CONTACT W/AND (SUSP) EXPOS COVID-19]Onset: 47-55-2507Icickczcntlh (2 sources)pre employment; Translations: [pre employment]Onset: 03-04-2025 Past or Other Problems Problem ClassificationProblemDateDocumented DateEpisodic/ChronicAbdominal pain (1 source)Pelvic and perineal pain; Translations: [PELVIC AND PERINEAL PAIN] Onset: 99-35-0013WfmqouzsNbru disorders (3 sources)Mood disorders; Translations: [DEPRESSION UNSPECIFIED]Onset: Other circulatory disease (1 source)Elevated blood pressure; Translations: [Elevated blood-pressure reading, without diagnosis of hypertension]52-90-6790HwedllihRuyai upper respiratory infections (1 source)Acute maxillary sinusitis; Translations: [Acute maxillary sinusitis, unspecified]03-31-5763QlwitibrBceymq media and related conditions (1 source)Acute non-suppurative otitis media - serous; Translations: [Acute serous otitis media, bilateral]60-68-5587RfxmhxhbYxwxlznnhqwx (2 sources)Onset: Results Test NameValueInterpretationReference RangeFacilityUS OB FOLLOW UP TRANSABDOMINAL APPROACHon 08-32-4459VM OB FOLLOW UP TRANSABDOMINAL APPROACH FINDINGS: A [...] Delivery: 08/26/25 Gestational Age as of 06/08/2025: 06x9hMwzyppamsg macro (dipstick) panel (U)on 86-99-1112Azgkarjuu, UANegativeNegative - 4(70) +++ mg/dLNOMS HealthcareBlood, UANegativeNegative [...] mg/dLNOMS HealthcareNOMS HealthcareUrinalysis macro (dipstick) panel (U)on 27-95-0857Ktqfihcsq, UA NegativeNegative - 4(70) +++ mg/dLNOMS HealthcareBlood, UANegativeNegative - 50 Randall/mcLNOMS HealthcareClarity, UAClearNOMS HealthcareColor, UAYellowNOMS HealthcareGlucose, UANegativeNegative - 1999(110) ++++ mg/dLNOMS Healthcare Interpretation and review of laboratory resultsAbnormalNOMS HealthcareKetones, UANegativeNegative - 160(16) ++++ mg/dLNOMS HealthcareLeukocytes, UAPositive Negative - 500+++ Johnson/Kaleida HealthNOMS HealthcareComment on above:1+Nitrite, UANegative Negative - PositiveNOMS HealthcarepH, UA6.05 - 9NOMS HealthcareProtein, UA PositiveNegative - 1999(20) ++++ mg/dLNOMS HealthcareSpec Grav, UA1.0201 - 1.03 NOMS HealthcareUrobilinogen, UA1.00.2 - 12 mg/dLNOMS HealthcareNOMS Healthcare Urinalysis macro (dipstick) panel (U)on 08-85-2420Pspuoajgc, UANegativeNegative - 4(70) +++ mg/dLNOMS HealthcareBlood, UANegativeNegative - 50 Randall/mcLNOMS HealthcareClarity, UAClearNOMS HealthcareColor, UAYellowNOMS HealthcareGlucose, UANegativeNegative - 1999(110) ++++ mg/dLNOMS HealthcareInterpretation and review of laboratory resultsAbnormalNOMS HealthcareKetones, UANegativeNegative - 160(16) ++++ mg/dLNOMS HealthcareLeukocytes, UA3+Negative - 500+++ Johnson/Kaleida HealthNOID HealthcareNitrite, UANegativeNegative - PositiveNOMS HealthcarepH, UA8.55 - 9 NOMS HealthcareProtein, UATraceNegative - 1999(20) ++++ mg/dLNOMS HealthcareSpec Grav, UA1.011 - 1.03NOMS HealthcareUrobilinogen, UA2.00.2 - 12 mg/dLNOMS HealthcareNOMS HealthcareIGP,APTIMA HPV,AGE GDLNon 58-35-3364XKM GDLN ACOG TESTINGNote.[facility] HealthcareComment on above:TESTS RESULT FLAG UNITS REF RANGE LAB Clinician Provided Cytology Information Source.............Endocervix Other.............. No. of containers..01 ThinPrep Vial Age Madhu CRANE Millie... FLAG LEGEND: L-Low Normal,H-High Normal,LL-Alert Low,HH-Alert High <-Panic Low,>-Panic High,A-Abnormal,AA-Critical Abnormal Performed at: 01 =[facility], [place] [address] [place] [address] Beverly Nguyen MD, IGP, RFX APTIMA HPV ASCUNote.NOMS HealthcareComment on above:TESTS RESULT FLAG UNITS REF RANGE LAB DIAGNOSIS: 02 NEGATIVE FOR INTRAEPITHELIAL LESION OR MALIGNANCY. FUNGAL ORGANISMS MORPHOLOGICALLY CONSISTENT WITH ROSALBA SPECIES ARE PRESENT. Specimen adequacy: 02 Satisfactory for evaluation. Endocervical and/or squamous metaplastic cells (endocervical component) are present. Performed by: 02 Sonia Beckham, Rn Embedded ([facility]) . 02 Note: Note 02 [...] High <-Panic Low,>-Panic High,A-Abnormal,AA-Critical Abnormal Performed at: [address] [place] [id number] Beverly Nguyen MD, Performed at: = - [address] [id number] Hourly Associate: Beverly Nguyen MD, Phone: [phone] Performed at: [address] [id number] Hourly Associate: Beverly Nguyen MD, Phone: [phone] SPATULA-ALONE ENDOCERVIX CLINISYNCNOMS HealthcareAFP, SERUM, OPEN SPINA BIFIDAon 75-86-9906QGI MOM1.10. [facility] HealthcareAFP VALUE34.4 ng/mL.[facility] HealthcareCOMMENT:Comment.[facility] HealthcareComment on above:Giselle Merida, Ph.D., [facility] Director References: Available Upon Request. Multiples Of Median Cutoffs For AFP Elevations Sellers 2.5 Black 2.8 IDD 2.0 Twins 4.5 Abbreviation Definitions IDD - Insulin Dep Diabetes OSBR - Open Spina Bifida Risk For further inquiries contact [facility] at [phone]. This test was developed and its performance characteristics determined by [facility]. It has not been cleared or approved by the Food and Drug Administration. Performed at: - [facility] [address], [place], [place] [id number] Hourly Associate: Nirmal Means [facility], Phone: [phone] GEST. AGE ON COLLECTION DATE17.0. weeksNOID HealthcareGESTAT. AGE BASED ONLMP. NOMS HealthcareComment on above:Recalculations are not recommended when gestational dating by LMP and ultrasound are within 10 days. INSULIN DEP DIABETESNo.NOM HealthcareINTERPRETATIONComment.[facility] Healthcare Comment on above:Interpretation: Screen Negative [...] Customer Services to discuss available options. The [employer] [employer] recommends amniocentesis be offered to women age 35 and older. MATERNAL AGE AT EDD25.9. yrNOID HealthcareMULTIPLE GESTATIONNo.[facility] OSBR RISK 1 [id number].[facility] HealthcareRACECaucasian.[facility] SystemRESULTSReport. [facility] Health SystemTEST RESULTS:Negative.[facility] BzjgbhwgbeUZWSMQ930. lbsNOMS HealthcarePREGNANCY N N LMP [id number] 0 17 N 1 Y 206 N N N N N White/ CLINISYNCNOMS HealthcareRECURRENT VAGINITIS (HTRX)on 44-17-9580MLGVKPNJM VAGINAE 0NOMS HealthcareATOPOBIUM VAGINAENot detectedNOMS HealthcareBVAB 2,3 (BACTERIAL VAGINOSIS ASSOCIATED BACTERIA 2, 3); MOBILUNCUS RNF1XGQI HealthcareBVAB 2,3 (BACTERIAL VAGINOSIS ASSOCIATED BACTERIA 2, 3); MOBILUNCUS SPPNot detectedNOMS HealthcareCANDIDA ALBICANS, PARAPSILOSIS, LHVZEQJJLJ39.725AbnormalNOMS HealthcareCANDIDA ALBICANS, PARAPSILOSIS, TROPICALISDetectedAbnormalNOMS HealthcareCANDIDA VIUYSPQJ6VECW HealthcareCANDIDA GLABRATANot detectedNOMS HealthcareCANDIDA KXEZYL2XDDA HealthcareCANDIDA KRUSEINot detectedNOMS HealthcareCHLAMYDIA VDYGYXAPEIA0YFWX HealthcareCHLAMYDIA TRACHOMATISNot detected NOMS HealthcareGARDNERELLA QKJYKEFVD13.732AbnormalNOMS HealthcareGARDNERELLA VAGINALISDetectedAbnormalNOMS HealthcareInterpretation and review of laboratory resultsAbnormalNOMS HealthcareMEGASPHAERA (TYPES 1, 2)0[facility] Healthcare MEGASPHAERA (TYPES 1, 2)Not detectedNOMS HealthcareMYCOPLASMA SHKCBCZPUY1MVDT HealthcareMYCOPLASMA GENITALIUMNot detectedNOMS HealthcareNEISSERIA GONORRHOEAE0 NOMS HealthcareNEISSERIA GONORRHOEAENot detectedNOMS HealthcareTRICHOMONAS WXUVLXOAU3LBUU HealthcareTRICHOMONAS VAGINALISNot detectedNOMS HealthcareNOMS HealthcareUS OB LIMITED 1+ FETUSESon 42-70-4115WE OB LIMITED 1+ FETUSESFINDINGS: Cephalic presentation. Anterior [...] was 11/19/2024 (approximate).Urinalysis macro (dipstick) panel (U)on 83-28-2736Pxrgfhdtf, UANegativeNegative - 4(70) +++ mg/dL NOMS HealthcareBlood, UANegativeNegative - 50 Randall/mcLNOMS HealthcareClarity, UA ClearNOMS HealthcareColor, UAYellowNOMS HealthcareGlucose, UANegativeNegative - 1999(110) ++++ mg/dLNOID HealthcareInterpretation and review of laboratory resultsAbnormalNOID HealthcareKetones, UANegativeNegative - 160(16) ++++ mg/dL NOMS HealthcareLeukocytes, UAPositiveNegative - 500+++ Johnson/mcLNOMS Healthcare Comment on above:3+Nitrite, UANegativeNegative - PositiveNOMS HealthcarepH, UA75 - 9NOMS HealthcareProtein, UANegativeNegative - 2000(20) ++++ mg/dLNOMS HealthcareSpec Grav, UA1.021 - 1.03NOID HealthcareUrobilinogen, UA1.00.2 - 12 mg/dLNOColumbia Regional HospitalNOID HealthcareQuantiFERON Tbon 16-13-4196UTC InterNegative NormalNEGFostoria City HospitalCommunson healthcare cad[facility] on above:Result Comment: Quantiferon TB Gold [...] Mycobacterium tuberculosis Infection -- [place], 2010 (http://www.cdc.gov/mmwr/preview/mmwrhtml/fd6205o3.htm), for more information concerning test performance in low-prevalence populations and use in occupational screening.Performed By: #### QFTB #### [facility] [address] [place], [place] [address] Hourly Associate: Hamlet Cai Juan minus NIL9.92 IU/mLNormalFostoria City HospitalCommunson healthcare cadillac hospital on above:Performed By: #### QFTB #### [facility] [address] [place], [place] [address] Hourly Associate: Hamlet Caii TB1 minus NIL0.00 IU/mLNormal0.00-0.34 [facility] HospitalCommunson healthcare [facility] on above:Performed By: #### QFTB #### [facility] [address] [place], [place] [address] Hourly Associate: Lance Chester MDQuanti TB2 minus NIL0.00 IU/mLNormal0.00-0.34 [facility]oria City HospitalComment on above:Performed By: #### QFTB #### [facility] [address] [place], [place] [id number] Hourly Associate: Lance Chester MDQuantiFERON NIL0.08 IU/mLNormalFostoria City HospitalComment on above:Performed By: #### QFTB #### [facility] [address] [place], [place] [address] Hourly Associate: Lance Chester MDUrinalysis macro (dipstick) panel (U)on 47-59-1882Qgcuwnjew, UANegativeNegative - 4(70) +++ mg/dLNOMS HealthcareBlood, UANegativeNegative [...] - 12 mg/dLNOMS HealthcareNOMS HealthcareUS OB TRANSVAGINALon 51-84-1589[address] [address] Ultrasound Report Signed Patient: MEREDITH TEMPLETON MR#: [id number] : 2000 Acct:[id number] Age/Sex: 24 / F ADM Date: 02/11/25 Loc: US Attending Dr: Abad Canchola D.O. Ordering Physician: Abad Canchola D.O. Date of Service: 02/11/25 Procedure(s): US OB transvaginal Accession Number(s): [id number] cc: Michelle Pabon M.D.; Abad Canchola D.O. [place] [address] Patient Name: MEREDITH TEMPLETON MRN: [id number] date: 2000 Sex: F Assigned Patient Location: US Current Patient Location: US Accession/Order Number: [id number] Exam Date: 02/11/2025 09:39 Report Date: 02/11/2025 [...] Gillette M.D. 02/11/2025 9:43 AM Dictation Location: [place] [address] Electronically authenticated by: [id number] Y Date: 02/11/2025 09:43 Dictated By: Misa Gillette M.D. Signed By: 02/11/2546 DD/ 2 TD/TT: Student Truck Driver:SHERRIEadiology, Radiologist, - 02/11/[address] [address] Ultrasound Report Signed Patient: MEREDITH TEMPLETON MR#: [id number] : 2000 Acct:[id number] Age/Sex: 24 / F ADM Date: 02/11/25 Loc: US Attending Dr: Abad Canchola D.O. Ordering Physician: Abad Canchola D.O. Date of Service: 02/11/25 Procedure(s): US OB transvaginal Accession Number(s): [id number] cc: Michelle Pabon M.D.; Abad Canchola D.O. The [place] [id number] Patient Name: MEREDITH TEMPLETON MRN: [id number] date: 2000 Sex: F Assigned Patient Location: US Current Patient Location: US Accession/Order Number: [id number] Exam Date: 02/11/2025 09:39 Report Date: 02/11/2025 [...] Gillette M.D. 02/11/2025 9:43 AM Dictation Location: [place] [address] Electronically authenticated by: [id number] Y Date: 02/11/2025 09:43 Dictated By: Misa Gillette M.D. Signed By: 02/11/2546 DD/ 2 TD/TT: Student Truck Driver: [facility] SystemRadiology Study observation (narrative)[facility] SystemUS OB TRANSVAGINALOrdered By: Radiologist Radiology on 39-53-6057ILQHDeaconess Incarnate Word Health System Work Phone: HCG ( test) Ql (U)on [id number] and review of laboratory resultsAbnormalNOColumbia Regional HospitalPreg Test, UrPositive NegativeNOEdgerton Hospital and Health ServicesMLR HEMOGLOBIN A1Con [id number] [Mass/Vol]91 mg/dLDeaconess Incarnate Word Health SystemHbA1c (Bld) [Mass fraction]4.8 %4.5 - 6.2 %[facility] Health SystemComment on above:ADA RECOMMENDED LIMIT 4.0 - 6.0 ADA THERAPEUTIC TARGET < 7.0 ACTION SUGGESTED > 7.0 CLINISYNCNOID HealthcareUS OB TRANSVAGINALon [id number] OB TRANSVAGINALEXAM: US OB TRANSVAGINAL HISTORY: Dating. [...] at 22-Jan-2025 10:24:02 AM [facility] TeleradiologyNormalNot AvailableComment on above:Order Comment: US OB TRANSVAGINAL Patient's last menstrual period was 11/19/2024 (approximate).Urinalysis macro (dipstick) panel (U)on 92-30-7779Bmppfslth, UANegativeNegative - 4(70) +++ mg/dL [facility] HealthcareBlood, [...] HealthcareNOMS Healthcare Urinalysis macro (dipstick) panel (U)on 38-60-6626Jrbtfyubb, UANegativeNegative - 4(70) +++ mg/dLNOMS HealthcareBlood, UANegativeNegative - 50 Randall/mcLNOMS HealthcareClarity, UAClearNOMS HealthcareColor, UAYellowNOMS HealthcareGlucose, UANegativeNegative - 1999(110) ++++ mg/dLBRIGHAM CITY [facility] HealthcareInterpretation and review of laboratory resultsAbnormalNOID HealthcareKetones, UANegativeNegative - 160(16) ++++ mg/dLBRIGHAM CITY COMM[facility] HealthcareLeukocytes, UAPositiveNegative - 500+++ Johnson/mcL [facility] HealthcareComment on above:LargeNitrite, UANegativeNegative - PositiveNOID HealthcarepH, UA75 - 9NOMS HealthcareProtein, UANegativeNegative - 2000(20) ++++ mg/dLBRIGHAM CITY [facility] HealthcareSpec Grav, UA1.0151 - 1.03NOID HealthcareUrobilinogen, UA0.2 0.2 - 12 mg/dLSaint John's Hospital HealthcareALL CBC WITH AUTO DIFFon 12-01-2024 BASOPHILS ABSOLUTE AUTO0.1NOMS HealthcareBasophils/100 WBC (Bld)0.5 %0.2 - 2.0 % [facility] SystemEosinophils/100 WBC (Bld)2.6 %0.9 - 7.0 %[facility] Erythrocyte distribution width (RBC) [Ratio]12.2 %11.0 - 15.0 %[facility] Hematocrit (Bld) [Volume fraction]42.8 %36.0 - 48.0 %[facility] Health SystemHemoglobin (Bld) [Mass/Vol]14.8 g/dL12.0 - 16.0 g/dLDeaconess Incarnate Word Health SystemIMMATURE GRANULOCYTES ABS AUTO0.01NOColumbia Regional HospitalImmature granulocytes/100 WBC (Bld)0.1 %0.0 - 0.5 % [facility] Health SystemLYMPHOCYTES ABSOLUTE AUTO2.8NOColumbia Regional HospitalLymphocytes/100 WBC (Bld)29.5 %20.5 - 60.0 %[facility] ChildrenH (RBC) [Entitic mass]29.6 pg26.7 - 34.0 pgShriners Hospitals for ChildrenHC (RBC) [Mass/Vol]34.6 g/dL29.9 - 35.2 g/dLShriners Hospitals for ChildrenV (RBC) [Entitic vol]85.6 fL81.0 - 99.0 fLDeaconess Incarnate Word Health SystemMONOCYTES ABSOLUTE AUTO0.6NOColumbia Regional HospitalMonocytes/100 WBC (Bld)5.8 %1.7 - 12.0 %[facility] HealthcareNEUTROPHILS ABSOLUTE AUTO5.8NOMS HealthcareNeutrophils/100 WBC (Bld) 61.5 %43.0 - 75.0 %[facility] HealthcarePlatelet mean volume (Bld) [Entitic vol]10 fL 9.5 - 13.5 fLNOMS HealthcareTBH EO #0.3NOMS HealthcareTBH SIX745ILCR Healthcare TBH WMS1LTWQ HealthcareTBH WBC9.5NOMS HealthcareCLINISYNCNOMS HealthcareHCG ( test) Ql (U)on 23-86-1577Qjhadhetpfcyoy and review of laboratory resultsNormalDeaconess Incarnate Word Health SystemPreg Test, UrNegativeNegativeNOSaint John's [facility] HealthcareUrinalysis macro (dipstick) panel (U)on 57-21-8067Kfwhvncbr, UA NegativeNegative - 4(70) +++ mg/dLNOID HealthcareBlood, UANegativeNegative - 50 Randall/mcLNOID HealthcareClarity, UAClearNOID HealthcareColor, UAYellowNOID HealthcareGlucose, UANegativeNegative - 2000(110) ++++ mg/dLDeaconess Incarn[facility] System Interpretation and review of laboratory resultsAbnormalBRIGHAM CITY [facility] HealthcareKetones, UANegativeNegative - 160(16) ++++ mg/dLDeaconess Incarnate Word Health SystemLeukocytes, UAPositive Negative - 500+++ Johnson/mcLNOID HealthcareComment on above:smallNitrite, UA NegativeNegative - PositiveNOID HealthcarepH, UA75 - 9NOMS HealthcareProtein, UA NegativeNegative - 2000(20) ++++ mg/dLNOID HealthcareSpec Grav, UA1.011 - 1.03 [facility] Health SystemUrobilinogen, UA0.20.2 - 12 mg/dLNOMS [facility] West HospitalNOID Healthcare IGP,APTIMA HPV,AGE GDLNon 27-92-9094YSN GDLN ACOG TESTINGNote.[facility] Comment on above:TESTS RESULT FLAG UNITS REF RANGE LAB Clinician Provided Cytology Information Source.............Cervix;Endocervix No. of containers..01 ThinPrep Vial Phan Pinto... FLAG LEGEND: L-Low Normal,H-High Normal,LL-Alert Low,HH-Alert High <-Panic Low,>-Panic High,A-Abnormal,AA-Critical Abnormal Performed at: 01 =G [facility] [id number] Beverly Nguyen MD, IGP, RFX APTIMA HPV ASCUNote.[facility] Health SystemComment on above:TESTS RESULT FLAG UNITS REF RANGE LAB DIAGNOSIS: 02 NEGATIVE FOR INTRAEPITHELIAL LESION OR MALIGNANCY. Specimen adequacy: 02 Satisfactory for evaluation. No endocervical component is identified. Performed by: Pricila Smith, Cable Wirer ([facility]) . 02 Note: Note 02 [...] <-Panic Low,>-Panic High,A-Abnormal,AA-Critical Abnormal Performed at: [address] [address] Beverly Nguyen MD, Performed at: = - [address] [id number] Hourly Associate: Beverly Nguyen MD, Phone: [phone] Performed at: [facility] [id number] Hourly Associate: Beverly Nguyen MD, Phone: [phone] BRUSH-SPATULA CERVIX ENDOCERVIX CLINISYNCNOMS HealthcareComprehensive Metabolic Panelon 84-03-4848Jqploze [Mass/Vol]4.2 g/dLNormal3.5-5.0[facility], Edwin ShawComment on above:Order Comment: Ordered by ANNEL Loving By: #### KEIRA, [id number] #### [place] [address] Ph. [phone] [Catalytic activity/Vol]77 U/HDxxozt00-010OsknjakWyandot Memorial HospitalComment on above:Order Comment: Ordered by ANNEL Loving By: #### KEIRA, [id number] #### [address] [address] Ph. [phone] [Catalytic activity/Vol]29 U/LNormal0-35WWyandot Memorial HospitalComment on above:Order Comment: Ordered by ANNEL KUNSPerformed By: #### CMP, [id number] #### [place] [address] Ph. [phone] [Catalytic activity/Vol]30 U/XGrsrrp09-37RrdkbuwWyandot Memorial HospitalComment on above:Order Comment: Ordered by ANNEL Loving By: #### CMP, [id number] #### [place] [address] Ph. [phone] [Mass/Vol]0.4 mg/dLNormal0.2-1.3WWyandot Memorial HospitalComment on above:Order Comment: Ordered by ANNEL Loving By: #### CMP, [id number] #### [place] [address] Ph. [phone] [Mass/Vol]9.2 mg/dLNormal8.4-10.2WWyandot Memorial HospitalComment on above:Order Comment: Ordered by ANNEL Loving By: #### CMP, [id number] #### [place] [address] Ph. [phone] [Moles/Vol]101 mmol/ZYgbpnr03-195EksthjyWyandot Memorial HospitalComment on above:Order Comment: Ordered by ANNEL Loving By: #### CMP, [id number] #### [place] [address] Ph. [phone] [Moles/Vol]25 mmol/TVhdgpd49-10MwexfckWyandot Memorial Hospital Comment on above:Order Comment: Ordered by ANNEL Loving By: #### CMP, [id number] #### [place] [address] Ph. [phone] [Mass/Vol]0.71 mg/dLNormal0.52-1.04WWyandot Memorial HospitalComment on above:Order Comment: Ordered by ANNEL Loving By: #### CMP, [id number] #### [address] [address] Ph. [phone]/1.73 sq M.predicted among non-blacks MDRD (S/P/Bld) [Vol rate/Area]122 mL/min/{1.73_m2}Normal>60WWyandot Memorial HospitalComment on above:Order Comment: Ordered by ANNEL Reynoso Comment: GFR calculated using CKD-EPI (2020) formula.\X0D0A\Stage 1 Kidney damage (e.g., protein in the urine) with normal GFR >=90\X0D0A\Stage 2 Kidney damage with mild decrease in GFR 60-8 9\X0D0A\Stage 3a Moderate decrease in GFR 45-59\X0D0A\Stage 3b Moderate decrease in GFR 30-44\X0D0A\Stage 4 Severe reduction in GFR 15-29\X0D0A\Stage 5 Kidney failure <15Performed By: #### CMP, [id number] #### [address] [address] Ph. [phone] [Mass/Vol]85 mg/nCOdxrac40-075MlhzjwqSelect Medical [facility] Comment on above:Order Comment: Ordered by ANNEL Loving By: #### CMP, [id number] #### [address] [address] Ph. [phone] [Moles/Vol]4.1 mmol/LNormal3.6-5.0WWyandot Memorial HospitalComment on above:Order Comment: Ordered by ANNEL Loving By: #### CMP, [id number] #### [address] [address] Ph. [phone] [Mass/Vol]8.0 g/dLNormsd6.3-8.2[facility] Comment on above:Order Comment: Ordered by ANNEL Loving By: #### CMP, [id number] #### [address] [place] [address] Ph. [phone] [Moles/Vol]137 mmol/SHfwlng421-281CmlnjquWyandot Memorial HospitalComment on above:Order Comment: Ordered by ANNEL Gonzalezformed By: #### CMP, [id number] #### [id number] [place] [address] Ph. [phone] nitrogen [Mass/Vol]10 mg/dLNormal7-17WWyandot Memorial HospitalComment on above:Order Comment: Ordered by ANNEL Gonzalezformed By: #### CMP, [id number] #### [place] [address] Ph. [phone] [Mass/Vol]4.2 g/dL3.5 - 5.0 g/dLWYANDOTALP (Bld) [Catalytic activity/Vol]77 U/L38 - 126 U/LWYANDOTALT [Catalytic activity/Vol]29 U/L0 - 35 U/LWYANDOTAST [Catalytic activity/Vol]30 U/L14 - 36 U/LWYANDOT Bilirubin [Mass/Vol]0.4 mg/dL0.2 - 1.3 mg/dLWYANDOTCalcium [Mass/Vol]9.2 mg/dL 8.4 - 10.2 mg/dLWYANDOTChloride [Moles/Vol]101 mmol/LWYANDOTCO2 [Moles/Vol]25 mmol/LWYANDOTCreatinine [Mass/Vol]0.71 mg/dL0.52 - 1.04 mg/dLWYANDOTGFR, Jptatfbkq437- PINFWYANDOTComment on above: GFR calculated using CKD-EPI [...] mg/dL7 - 17 mg/dLWYANDOTOrdered by ANNEL FINN [facility]ALTHEZRATTSH Reflex FT4on 90-90-5297TRU1.420 mIU/mLNormal0.470-4.680WMercy Health Springfield [facility] on above:Order Comment: Ordered by ANNEL Gonzalezformed By: #### CMP, [id number] #### [place] [address] Ph. [phone] with Reflexon 24-97-1002BLE Qn2.420 m[IU]/LWYANDOTOrdered by [facility] BASILSCL HEALTH COMMUNITY HOSPITAL - SOUTHWESTWYANDOTPAP ACOG PANEL 2: to 03-01-2022.. NormalThe [facility] Clinic Lutheran HospitalComment on above:Performed By: #### [id number] #### [facility] [address] [place] [address] Dr. [place] Kaplan Gdln ACOG Ekhvuke22-75AtgqnrQqrGerman HospitalCommunson healthcare [facility] on above:Performed By: #### [id number] #### [facility] [address] [place] [address] Dr. [place] WolfDIAGNOSIS:CommentMarion Hospital on above: Result Comment: NEGATIVE FOR INTRAEPITHELIAL LESION OR MALIGNANCY.Performed By: #### [id number] #### [facility] [address] [place] [address] Dr. [place] WolfMethodology:CommentMarion Hospital on above: Result Comment: This liquid based ThinPrep(R) pap test was screened with the use of an image guided system.Performed By: #### [id number] #### [facility] [address] [place] [address] Dr. [place] WolfNote:CommentMarion Hospital on above:Result Comment: The Pap smear is a screening test designed to aid in the detection of premalignant and malignant conditions of the uterine cervix. It is not a diagnostic procedure and should not be used as the sole means of detecting cervical cancer. Both false-positive and false-negative reports do occur. .Performed By: #### [id number] #### [facility] [address] [place] [address] Dr. [place] WolfPerformed by:CommentMarion Hospital on above: Result Comment: Nikolay Smith, Cable Wirer (ASCP)Performed By: #### [id number] #### [address] [address] [address] [place] WolfReflex Criteria:[facility] on above:Result Comment: The HPV DNA reflex criteria were not met with this specimen result therefore, no HPV testing was performed. .Performed By: #### [id number] #### [address] [address] Dr[address] [place] WolfSpecimen adequacy:[facility] on above:Result Comment: Satisfactory for evaluation. Endocervical and/or squamous metaplastic cells (endocervical component) are present.Performed By: #### [id number] #### [address] [address] Dr[address] [place] Jackson AUTO DIFFon 75-24-6978ANEP #0.1 103/ulNormal0.0-0.1The Parkwood Hospitalment on above:Performed By: #### CBC #### [facility] [address] [place] [address] Dr. [place] WolfBasophils/100 WBC (Bld)0.8 %Normal0.2-2.0[facility] Comment on above:Performed By: #### CBC #### [facility] [address] [place] [address] Dr. [place] Huggins #0.3 103/ulNormal0.0-0.7[facility] on above: Performed By: #### CBC #### [facility] [address] [address] [address] [place] Mosleyosinophils/100 WBC (Bld)4.1 %Normal0.9-7.0The [facility] Comment on above:Performed By: #### CBC #### [facility] [address] [place] [address] Dr. [place] Mosleyrythrocyte distribution width (RBC) [Ratio]13.0 %Oozojq66.0-15.0 The [facility] Luther[facility] HospitalComment on above:Performed By: #### CBC #### [facility] [address] [place] [address] Dr. [place] WolfHematocrit (Bld) [Volume fraction]43.4 %Vwijqo66.0-48.0The [facility] HospitalComment on above:Performed By: #### CBC #### [facility] [address] [place] [address] Dr. [place] WolfHemoglobin (Bld) [Mass/Vol]14.5 g/mKTybrgw81.0-16.0The [facility] HospitalComment on above:Performed By: #### CBC #### [facility] [address] [place] [address] Dr. [place] Ortez #0.02 10e3/ulNormal0.00-0.03The [facility] Luther[facility] HospitalComment on above:Performed By: #### CBC #### [facility] [address] [place] [address] Dr. [place] WolfIG %0.3 %Normal0.0-0.5The Parkwood Hospitalment on above: Performed By: #### CBC #### [facility] [address] [place] [address] Dr. [place] MoralesMPH #2.2 103/ulNormal1.2-3.8The [facility] HospitalComment on above:Performed By: #### CBC #### [facility] [address] [place] [address] Dr. [place] Moralesmphocytes/100 WBC (Bld)28.1 %Udzqdu65.5-60.0The [facility] Luther[facility] HospitalComment on above:Performed By: #### CBC #### [facility] [address] [address] [address] [place] Cifuentes DIFF REQNONormalThe [facility] Luther[facility] HospitalComment on above: Performed By: #### CBC #### [facility] [address] [place] [address] Dr. [place] Hernandez (RBC) [Entitic mass]28.5 fhAqauam96.7-34.0The [facility] HospitalComment on above:Performed By: #### CBC #### [facility] [address] [place] [address] Dr. [place] Hernandez (RBC) [Mass/Vol]33.4 g/fCOxndqa04.9-35.2The [facility] HospitalComment on above:Performed By: #### CBC #### [facility] [address] [place] [address] Dr. [place] Hernandez (RBC) [Entitic vol]85.3 tEIlyrft00.0-99.0The [facility] HospitalComment on above:Performed By: #### CBC #### [facility] [address] [place] [address] Dr. [place] Smith #0.6 103/ulNormal0.3-0.8The [facility] Luther[facility] HospitalComment on above:Performed By: #### CBC #### [facility] [address] [place] [address] Dr. [place] Medranoocytes/100 WBC (Bld)7.9 %Normal1.7-12.0The [facility] Comment on above:Performed By: #### CBC #### [facility] [address] [place] [address] Dr. [place] Garcia #4.6 103/ulNormal1.4-6.5The [facility] Luther[facility] HospitalComment on above:Performed By: #### CBC #### [facility] [address] [place] [address] Dr. [place] Novautrophils/100 WBC (Bld)58.8 %Ruexor20.0-75.0The Parkwood Hospitalment on above:Performed By: #### CBC #### [facility] [address] [address] [address] [place] Loulet mean volume (Bld) [Entitic vol]9.6 fLNormal9.5-13.5[facility] on above:Performed By: #### CBC #### [facility] [address] [address] [address] [place] WolfPLT242 103/zjKdcwfa471-691Ubu [facility] HospitalComment on above: Performed By: #### CBC #### [facility] [address] [place] [address] Dr. [place] WolfRBC5.09 106/ulNormal4.20-5.40[facility] on above:Performed By: #### CBC #### [facility] [address] [place] [address] Dr. [place] WolfWBC7.8 103/ulNormal4.0-11.0The [facility] HospitalComment on above: Performed By: #### CBC #### [facility] [address] [place] [address] Dr. [place] WolfPREElise QUANT HCGon 98-06-6730WQE QUANT<1NormalL[facility]aster Municipal Hospital Comment on above:Performed By: #### PREGQNT #### [facility] [address] [place] [address] Dr. [place] WolfHCElise [facility] Caree [facility] HospitalComment on above: Result Comment: 5-50 0-1 WEEK 40-300 1-2 WEEKS 100-1,000 2-3 WEEKS 500-6,000 3-4 WEEKS 5,000-200,000 1-2 MONTHS 10,000-100,000 2-3 MONTHS 3,000-50,000 2ND TRIMESTER 1,000-50,000 3RD TRIMESTERPerformed By: #### PREGQNT #### [facility] [address] [place] [address] Dr. [place] WolfCovid-19 PCR (CVDTBH)on 95-46-6634HWEC-CoV-2 (COVID-19) RNA SANJANA+probe Ql (Unsp spec)Not detectedNormalNOT DETECTEDThe [facility] Comment on above:Result Comment: This test is not yet approved or cleared by the [place] FDA. When there are no FDA-approved or cleared tests available, and other criteria are met, FDA can make tests available under an emergency access mechanism called an Emergency Use Authorization (EUA). The EUA for this test is supported by the Treatment Plant Mechanic of Health and Human Service's (HHS's) declaration [...] consistent with SARS-CoV-2.Performed By: #### CVDTB #### [facility] [address] [place] [address] Dr. [place] Wolf Vital Signs Date TimeVital SignValuePerforming IfjtnhbchFjoqhtfi19-04-9013 15:50-0500Body mass index (BMI) [Ratio]35.19 kg/n9Mdjww Jesika DO Work Phone: [employer] Hwuhkheavw84-16-6754 15:50-0500Body bcsypj09.88 kgCorey Jesika DO Work Phone: [phone] Regional HospitalIaxpsskjfp05-83-3251 15:50-0500Diastolic blood uaqrzihw18 mm[Hg]Abad Jesika DO Work Phone: NOMS HealthcareComment on above:130/ 15:50-0500Systolic blood vqhbaszf263 mm[Hg]Abad Jesika DO Work Phone: NOMS HealthcareComment on above:130/4924-92-1628 08:41-0400Body mass index (BMI) [Ratio]34.4 kg/m2Amy Gregorio PA Work Phone: [facility] SystemPznjnrwbvt83-99-5072 08:41-0400Body .67 kgShagufta Oneal PA Work Phone: [facility] SystemUnefhprnyz76-38-7728 08:41-0400Diastolic blood prnmikeo12 mm[Hg]Shagufta Oneal PA Work Phone: [facility] SystemNikalqtprv11-07-8307 08:41-0400Systolic blood caajbdmj707 mm[Hg]Shagufta Oneal PA Work Phone: [phone] SystemTtptuesfxt53-86-3335 08:33-0400Body mass index (BMI) [Ratio]33.59 kg/l4Ktdmjcvl Kirill DIRECTOR BUSINESS Work Phone: [facility] SystemDpausxbdbf83-59-6658 08:33-0400Body bnpzqe51.4 kg Say Kirill DIRECTOR BUSINESS Work Phone: [facility] SystemJwrmwvmthi10-87-8798 08:33-0400Diastolic blood ezchzztp90 mm[Hg]Say Cosmeerly DIRECTOR BUSINESS Work Phone: [phone] Health SystemLtjubzwoti29-24-5338 08:33-0400Systolic blood ajziagts920 mm[Hg]Say Cosmeerly DIRECTOR BUSINESS Work Phone: [phone] HealthDeaconess Incarn[facility] Word Health SystemLrkgmmwdnb50-11-7349 10:35-0400Body mass index (BMI) [Ratio]33.25 kg/u2Xqfin Jesika DO Work Phone: [facility] SystemQdwdzhvqnf26-63-8404 10:35-0400Body daihgv88.44 kgCorey Jesika DO Work Phone: [phone] SystemOvkmvgdubf65-53-2635 10:35-0400Diastolic blood tbykymrv21 mm[Hg]Abad Jesika DO Work Phone: [phone] SystemAdvphwnuqr59-10-4950 10:35-0400Systolic blood cekdfltn671 mm[Hg]Abad Jesika DO Work Phone: [phone] SystemPhikyownrh21-89-5085 10:37-0400Body mass index (BMI) [Ratio]33.31 kg/m2Amy Gregorio PA Work Phone: [facility] SystemBvrercdccs51-22-0265 10:37-0400Body vshrpa89.62 kgShagufta Oneal PA Work Phone: [facility] SystemQinehxxvld37-94-4061 10:37-0400Diastolic blood hgjgfzvy16 mm[Hg]Shagufta Oneal PA Work Phone: [facility] SystemCwonqkxjyz86-16-6630 10:37-0400Systolic blood pupkojtw526 mm[Hg]Shagufta Oneal PA Work Phone: [phone] [place], [place] [address]Dcqddhtnzd63-35-4115 08:55-0400Body mass index (BMI) [Ratio]33.25 kg/a2Znqms Jesika DO Work Phone: [facility] SystemUawgxhcgqj51-68-2117 08:55-0400Body iruibe70.44 kgCorey Jesika DO Work Phone: [facility] SystemPajrmtcnqb03-13-6089 08:55-0400Diastolic blood ujsazlca52 mm[Hg]Abad Jesika DO Work Phone: [phone] [place], [place] [address]Zdjzxxyrqj63-22-4873 08:55-0400Systolic blood knwyaxgn275 mm[Hg]Abad Jesika DO Work Phone: [facility] SystemOagtzdoxdf09-64-6196 09:14-0400Body mass index (BMI) [Ratio]33.89 kg/s5UmiuetpfSay Roy DIRECTOR BUSINESS Work Phone: [facility] SystemGvbgzstmpw17-22-8689 09:14-0400Body zhqyvd82.25 kgSay Friedmanly DIRECTOR BUSINESS Work Phone: [facility] SystemQetpdapylw24-57-3148 09:14-0400Diastolic blood mm[Hg]Say Roy DIRECTOR BUSINESS Work Phone: [facility] SystemDsawkvbxqs86-23-1541 09:14-0400Systolic blood nomzmwkf335 mm[Hg]Say Roy DIRECTOR BUSINESS Work Phone: [phone] SystemOxdkcuecxb45-81-2326 11:00-0400Body mass index (BMI) [Ratio]35.32 kg/r2Sjmbd Jesika DO Work Phone: [facility] SystemVqpfuzxvvk66-24-6226 11:00-0400Body wpbgfe42.25 kgCorey Jesika DO Work Phone: [facility] SystemTcwhceixva25-59-7039 11:00-0400Diastolic blood tyqywcji11 mm[Hg]Abad Jesika DO Work Phone: [facility] SystemNqzvhzjdio12-15-8790 11:00-0400Systolic blood fnjiljdk324 mm[Hg]Abad Jesika DO Work Phone: [facility] SystemTcygukdhxn88-43-4748 14:07-0400Body oobjqx161.64 cmUniversity [facility]als [facility]07-19-2024 14:07-0400Body mass index (BMI) [Ratio]35.9 kg/y6LxcmtwaplUniversity Hospitals Geauga Medical Center07-19-2024 14:07-0400Body .15 [facility]07-19-2024 14:07-0400Diastolic blood mm[Hg][facility]07-19-2024 14:07-0400 Heart uixg862 /[facility]07-19-2024 14:07-0400Systolic blood xbjmiqrx449 mm[Hg][facility]04-25-2024 15:18-0400 Body rjpibu629.64 cmUniversity Hospitals [facility]aug[facility]04-25-2024 15:18-0400Body mass index (BMI) [Ratio]36.8 kg/v7JasfymiejUniversity Hospitals Geauga Medical Center04-25-2024 15:18-0400Body xgyuiy286.41 [facility]04-25-2024 15:18-0400Diastolic blood blaaqhih145 mm[Hg][facility] 12-05-2023 15:18-0400Heart rate94 /[facility] 12-05-2023 15:18-0400Systolic blood hrjcnaer660 mm[Hg][facility]12-22-2023 11:56-0500Body xiwauz575.7 cmAnnel Yuen APRN-RV SERVICE TECHNICIAN Work Phone: [facility]12-22-2023 11:56-0500Body mass index (BMI) [Ratio]35.18 kg/m2Annel JACOBRV SERVICE TECHNICIAN Work Phone: [facility]-22-2023 11:56-0500Body tuzqlkjvfto36.2 [degF]Annel JACOBRV SERVICE TECHNICIAN Work Phone: [facility]-22-2023 11:56-0500Body kydklx310.96 kgAnnel Yuen APRNClaribelRV SERVICE TECHNICIAN Work Phone: [facility]12-22-2023 11:56-0500Diastolic blood qtfduhpx73 mm[Hg]Annel JACOBRV SERVICE TECHNICIAN Work Phone: [facility]12-22-2023 11:56-0500Heart rate 91 /minAnnel Yuen APRNClaribelRV SERVICE TECHNICIAN Work Phone: [facility]-22-2023 11:56-4536QbX9% (BldA) [Mass fraction]99 %Annel JACOBRV SERVICE TECHNICIAN Work Phone: [facility]12-22-2023 11:56-0500Systolic blood fluzkkzp279 mm[Hg]Annel JACOBRV SERVICE TECHNICIAN Work Phone: [facility] - [facility] in [facility] Encounters Encounter DateEncounter TypeCare ProviderFacilityStart: 06-21-2025 End: 85-33-1551Fqprmkzw flow sheetCorey Jesika DO Work Phone: NODT Logan OBGYNComment on above:28 weeks gestation of ([facility]); Third trimester ([facility]); induced hypertension, antepartum ([facility])Start: 06-21-2025 End: 58-21-4833tvkqcamsekFYFVA FAZIONot AvailableStart: 06-08-2025 End: 84-01-7858Rcxlwz flowsheetAmy Gregorio MIX Work Phone: NOKM Logan OBGYNStart: 06-08-2025 End: 71-42-6012Epahok flowsheetShagufta MIX Work Phone: NOMS Logan OBGYNStart: 06-08-2025 End: 26-37-6616Xnqcxy outpatient visit 15 minutesShagufta MIX Work Phone: NOMS [place] OBGYNComment on above: size inconsistent with dates ([facility]) (Primary Dx); 28 weeks gestation of ([facility]); Second trimester ([facility])Start: 06-08-2025 End: 73-80-2474hcvkaqahkyMAN RAMEYNot AvailableStart: 05-12-2025 End: 09-91-7719Wcwecc flowsMaria Isabel Roy NP Work Phone: [facility] [place] OBGYNStart: 05-12-2025 End: 60-23-5660Vtlskq flowsMaria Isabel Roy NP Work Phone: [facility] OBGYNStart: 05-12-2025 End: 95-38-0599Huqocgbr flow sheetSay Roy NP Work Phone: NOMS Logan OBGYNComment on above:24 weeks gestation of ([facility]); Second trimester ([facility]); Diabetes mellitus screeningStart: 05-12-2025 End: 75-07-1634hasdtuvqgnOLXNRJDF EBERLYNot AvailableStart: 04-15-2025 End: 57-74-7950Bjzujn flowsheetCorey Jesika DO Work Phone: [facility] [place] OBGYNStart: 04-15-2025 End: 51-50-9233Dfrpsq flowsheetCorey Jesika DO Work Phone: [facility] [place] OBGYNStart: 04-15-2025 End: 73-86-9548Bgcltriel Result EncounterCorey Jesika DO Work Phone: NOMS External Department UnsolicitedStart: 04-15-2025 End: 92-72-0683Zzvjibcu preventive med est patient 18-39 yrsCorey Jesika DO Work Phone: NOUV Logan OBGYNComment on above:Second trimester ([facility]); 21 weeks gestation of ([facility]); Nausea and vomiting during ([facility]); Vaginal discharge during , antepartum ([facility])Start: 04-15-2025 End: 90-45-7891gqztlfhgguNXVOR FAZIONot AvailableStart: 04-08-2025 End: 08-28-5003zzjzxotgbeEBX RAMEYNot AvailableStart: 03-18-2025 End: 87-70-2793Vqgedzejz Result EncounterShagufta MIX Work Phone: noms External Department UnsolicitedStart: 03-18-2025 End: 03-94-5548Hwjxhuya Result EncounterShagufta MIX Work Phone: noms External Department UnsolicitedStart: 03-18-2025 End: 73-86-2778Sfjeancg Result EncounterShagufta Gregorio MIX Work Phone: noms External Department UnsolicitedStart: 03-18-2025 End: 20-22-7656Sdekvbmc flow sheetShagufta Gregorio PA Work Phone: NOMS Logan OBGYNComment on above:17 weeks gestation of ([facility]); Second trimester ([facility]); Subchorionic hematoma in first trimester, single or unspecified fetus ([facility]); Screening, , for anatomic survey ([facility]); Exposure to STD; Vaginal dischargeStart: 03-18-2025 End: 69-64-8263viwppdzdwiFOT RAMEYNot AvailableStart: 03-04-2025 End: 54-47-6923shpmtoikzmZJCUGQW Isaac L[facility]ABerger Hospital HospitalStart: 03-04-2025 End: 40-07-4423Rkkqlisyct hospital visit by Fide Sanford CNP Work Phone: [facility] LABStart: 02-18-2025 End: 54-48-1165Shzwsz flowsheetCorey Jesika DO Work Phone: NOMS BCP OBStart: 02-18-2025 End: 22-82-6588Umxzhp flowsheetCorey Jesika DO Work Phone: NOMS BCP OBStart: 02-18-2025 End: 26-88-9416uhlbqsejsaIEUPK FAZIONot AvailableStart: 02-18-2025 End: 91-26-9068Graniurx flow sheetCorey Jesika DO Work Phone: NOMS BCP OBComment on above:Second trimester ([facility]); 13 weeks gestation of ([facility])Start: 02-11-2025 End: 78-74-0693Kriqrluaa Result EncounterCorey Jesika DO Work Phone: NOMS External Department UnsolicitedStart: 02-11-2025 End: 82-66-6236Bswadzzrd Result EncounterCorey Jesika DO Work Phone: NOMS External Department UnsolicitedStart: 01-21-2025 End: 84-65-9590Myeicinik Result EncounterCorey Jesika DO Work Phone: NOMS External Department UnsolicitedStart: 01-21-2025 End: 82-78-1669Jtnqgrbyi Result EncounterCorey Jesika DO Work Phone: noms External Department UnsolicitedStart: 01-21-2025 End: 50-99-0083Iluyyw outpatient visit 5 minutesNoms Bcp Ob Jesika NurseNOMS BCP OBComment on above:GA: 3l9lDfevt: 01-21-2025 End: 51-14-0626vkffprmkppMFULD FAZIONot AvailableStart: 01-13-2025 End: 69-12-4389Tlgtit flowsheetSay Roy DIRECTOR BUSINESS Work Phone: NOMS BCP OBStart: 01-13-2025 End: 19-94-8961Rwqqfg flowsheetSay Roy DIRECTOR BUSINESS Work Phone: NOMS BCP OBStart: 01-13-2025 End: 27-69-2645rtoywtvixqZFOWJOKN EBERLYNot AvailableStart: 01-13-2025 End: 61-55-9000Bsssdq outpatient visit 15 minutesSay Roy DIRECTOR BUSINESS Work Phone: noms [facility] OBComment on above:GA: 3a9bSwvxs: 12-01-2024 End: 42-33-0129Dgshgl flowsheetCorey Jesika DO Work Phone: noms BCP OBStart: 12-01-2024 End: 99-66-9377Fcctlrpar Result EncounterCorey Jesika DO Work Phone: noms External Department UnsolicitedStart: 12-01-2024 End: 18-82-6279Abuizgnnm Result EncounterCorey Jesika DO Work Phone: noms External Department UnsolicitedStart: 12-01-2024 End: 01-47-1433Nlvlrl outpatient visit 15 minutesCorey Jesika DO Work Phone: noms [facility] OBComment on above:Female infertility; PCOS (polycystic ovarian syndrome); Abnormal uterine bleeding (AUB); Endometriosis; Insulin resistanceStart: 12-01-2024 End: 66-94-3577ztuslqxpmgLOVGF FAZIONot AvailableStart: 03-25-2024 End: 64-48-3656Pkvrxbabi Result EncounterCorey Jesika DO Work Phone: noms External Department UnsolicitedStart: 03-25-2024 End: 93-48-7327Eyfwwrjne Result EncounterCorey Jesika DO Work Phone: noms External Department UnsolicitedStart: 02-28-2024 End: 55-45-1593npxuaokjeyDfmpuwqcnSt. Vincent Hospital Work Phone: Start: 02-28-2024 End: 46-88-8609Uvfeitn encounter procedureCritical Access Hospital [facility] Work Phone: Start: 12-05-2023 End: 58-47-8988poteupqamuIgspgulsbSt. Vincent Hospital Work Phone: Start: 12-05-2023 End: 29-35-9215Myjplaj encounter procedureCritical Access Hospital [facility] Work Phone: Start: 12-03-2023 End: 05-41-2242Ertedihps encounterAnnel Ivana Yuen OFFICE MACHINE REPAIR SHOP SUPERVISOR-RV SERVICE TECHNICIAN Work Phone: [facility] Family MedicineStart: 08-02-2023 End: 57-00-9610Jiqbfe outpatient visit 15 minutesAnnel Ivana Yuen OFFICE MACHINE REPAIR SHOP SUPERVISOR-RV SERVICE TECHNICIAN Work Phone: [facility] - Family MedicineComment on above:Acute non-recurrent maxillary sinusitis (Primary Dx); Non-recurrent acute serous otitis media of both ears; Elevated blood pressure readingStart: 01-10-2023 End: 85-51-0122zslwfdqnytGGQP [facility] Hospitaltart: 01-10-2023 End: 97-74-7315Hysqnzrkfi hospital visit by physicianAnnel Yuen OFFICE MACHINE REPAIR SHOP SUPERVISOR - AUTOMOTIVE ARTIST Work Phone: [facility] LaboratoryStart: 02-26-2022 End: 94-46-6064swxrligizxXT ABAD FAZIOFacility:M6Inqsv: 93-02-4329Jzncpdjbb for preprocedural laboratory examinationDR ABAD [facility] Hospitaltart: 06-30-2021 End: 55-58-3082klxthkawedDB ABAD FAZIOFacility:Y4Pulcf: 88-36-1227Iqzgpprte for other preprocedural examinationDR ABAD [facility] HospitalStart: 06-27-2021 End: 42-94-4729tnedafrillZX ABAD FAZIOFacility:N4Xnymw: 06-27-2021 End: 39-93-6927Jtypvbxne for preprocedural laboratory examinationDR ABAD JESIKA Facility:V8Wvdoe: 06-21-2021 End: 13-53-1210becbfnovrlPI ABAD FAZIOFacility:N9Hznfw: 06-21-2021 End: 58-70-5399Jbfmvyawg for other preprocedural examinationDR [facility] Facility:H1 Procedures DateProcedureProcedure DetailPerforming ClinicianStart: 71-82-4981Vagbq dip stick/tablet rgnt non-auto w/o micrscpCorey Jesika DO Work Phone: Start: 26-04-3325Qpukx dip stick/tablet rgnt non-auto w/o micrscpAmy Gregorio MIX Work Phone: Start: 81-93-4437Knrkg dip stick/tablet rgnt non-auto w/o micrscpKrkylah Roy NP Work Phone: Start: 73-25-6751RCM,APTIMA HPV,AGE GDLNCorey Jesika DO Work Phone: Start: 47-23-6966ZNJ, SERUM, OPEN SPINA BIFIDAAmaria alejandra MIX Work Phone: Start: 66-01-3232AUXNVSMGU VAGINITIS (HTRX)Shagufta MIX Work Phone: Start: 19-00-3991Trfwg dip stick/tablet rgnt non-auto w/o micrscpAmy Gregorio MIX Work Phone: Start: 94-14-4524Agybh dip stick/tablet rgnt non-auto w/o micrscpCorey Jesika DO Work Phone: Start: 24-60-6403GG OB TRANSVAGINALCorey Jesika DO Work Phone: Start: 76-16-6878XJJ HEMOGLOBIN U1SFhgmb Jesika DO Work Phone: Start: 01-21-2025 End: 46-71-0861Yxshb dip stick/tablet rgnt non-auto w/o micrscpCorey Jesika DO Work Phone: Start: 41-40-3679Ldzov dip stick/tablet rgnt non-auto w/o micrscpKrkylah Roy DIRECTOR BUSINESS Work Phone: Start: 70-89-0539BFQ CBC WITH AUTO DIFFCorey Jesika DO Work Phone: Start: 12-01-2024 End: 42-76-7291Rrorz dip stick/tablet rgnt non-auto w/o micrscpCorey Jesika DO Work Phone: Start: 44-35-8597BCG,APTIMA HPV,AGE GDLNCorey Jesika DO Work Phone: Start: 30-28-6719Bxwxb depression screening assessment Annel Yuen OFFICE MACHINE REPAIR SHOP SUPERVISOR-RV SERVICE TECHNICIAN Work Phone: Start: 58-21-5812Ggqtvbqxhak observation [Identifier] in Cervix by Cyto stainAnnel Yuen OFFICE MACHINE REPAIR SHOP SUPERVISOR-RV SERVICE TECHNICIAN Work Phone: Start: 93-06-5813Plpyuxegdheks metabolic panelUnknown Provider Result Plan of Treatment DateCare ActivityDetailAuthorStart: 24-84-9267Vtkbqaiju for malignant neoplasm of cervixPap SmearProGMG33ca [facility] SystemStart: 07-06-2025 End: 69-74-9367Qwwznnz encounter gqnwjihdc19/25/2025 10:40 AM EST Routine [facility] [address] [place] [phone] Abad Canchola DO [address] [place] [address] NOMFatimah [place] OBGYNStart: 06-28-2025 End: 39-29-3971Ykkvbcm encounter tslbowtfe42/17/2025 3:30 PM EST Routine [facility] [address] [phone] Say Roy, DIRECTOR BUSINESS [address] [place] [phone] NOMFatimah [place] OBGYNStart: 06-21-2025 End: 60-28-2552Mwiepaq encounter cyxrlksfi03/10/2025 3:30 PM EST Routine [facility] [address] [place], [id number] Abad Canchola DO [address] [place] [address] NOMS [facility] OBGYNStart: 06-21-2025 End: 95-78-0947Qfsituhyvpfb / ancillary services fqysdulexj32/10/2025 3:00 PM EST Ancillary Procedure [facility] [address] [place] [phone] N[facility]S [place] OBGYNStart: 06-21-2025 End: 26-83-8055Negfsvk aminotransferase [Enzymatic activity/volume] in Serum or PlasmaALT Lab Routine induced hypertension, antepartum ([facility]) Expected: 06/21/2025 (Approximate), Expires: 06/21/2026NOID HealthcareComment on above:Expected: 06/21/2025 (Approximate), Expires: 06/21/2026Start: 06-21-2025 End: 27-89-3374Vnfpzqbee aminotransferase [Enzymatic activity/volume] in Serum or PlasmaAST Lab Routine induced hypertension, antepartum ([facility]) Expected: 06/21/2025 (Approximate), Expires: 06/21/2026NOID HealthcareComment on above:Expected: 06/21/2025 (Approximate), Expires: 06/21/2026Start: 06-21-2025 End: 57-47-1357CED W Auto Differential panel - BloodCBC and differential Lab Routine induced hypertension, antepartum ([facility]) Expected: 06/12 (Approximate), Expires: 06/21/2026NOID HealthcareComment on above: Expected: 06/21/2025 (Approximate), Expires: 06/21/2026Start: 06-21-2025 End: 19-81-8267Hefxgkwzch [Mass/volume] in Serum or PlasmaCreatinine Lab Routine induced hypertension, antepartum ([facility]) Expected: 06/21/2025 (Ap proximate), Expires: 06/21/2026[facility] Healthcare Work Phone: comment on above:Expected: 06/21/2025 (Approximate), Expires: 06/21/2026Start: 06-21-2025 End: 03-91-7222Uwtymhb dehydrogenase [Enzymatic activity/volume] in Serum or Plasma by Lactate to pyruvate reactionLactate dehydrogenase Lab Routine induced hypertension, antepartum ([facility]) Expected: 06/21/2025, Expires: 06/21/2026[facility] HealthcareComment on above:Expected: 06/21/2025, Expires: 06/21/2026Start: 06-21-2025 End: 01-58-6272Kcheoqe, urine, 24 hourProtein, urine, 24 hour Lab Routine induced hypertension, antepartum ([facility]) Expected: 06/21/2025 (Approximate), Expires: 06/21/2026[facility] HealthcareComment on above:Expected: 06/21/2025 (Approximate), Expires: 06/21/2026Start: 06-21-2025 End: 36-88-5342Vl and pttPt and ptt Lab Routine induced hypertension, antepartum ([facility]) Expected: 06/21/2025, Expires: 06/21/2026[facility] Healthcare Comment on above:Expected: 06/21/2025, Expires: 06/21/2026Start: 06-21-2025 End: 52-74-2085Gutsw [Mass/volume] in Serum or PlasmaUric acid Lab Routine induced hypertension, antepartum ([facility]) Expected: 06/21/2025 (Hilary roximate), Expires: 06/21/2026[facility] HealthcareComment on above:Expected: 06/21/2025 (Approximate), Expires: 06/21/2026Start: 06-21-2025 End: 75-54-6749Gbuu nitrogen [Mass/volume] in Serum or PlasmaBUN Lab Routine induced hypertension, antepartum ([facility]) Expected: 06/21/2025, Expires:06/21/2026[facility] HealthcareComment on above:Expected: 06/21/2025, Expires: 06/21/2026Start: 06-08-2025 End: 51-94-7107HA for pregnancyUS OB follow up transabdominal approach Imaging Routine size inconsistent with dates ([facility]) Expected: 06/08/2025, Expires: 10/09/2025[facility] Work Phone: comment on above:Expected: 06/08/2025, Expires: 10/09/2025Start: 06-08-2025 End: 63-67-0159Pshgldp encounter ryysydnjs62/28/2025 8:30 AM EDT Routine [facility] [address] [place], [id number] Shagufta Oneal PA [address] [place], [place] [phone] ArrivedNO Logan OBGYNComment on above:ArrivedStart: 05-12-2025 End: 85-52-2467EAW panel - Blood by Automated countCBC Lab Routine Diabetes mellitus screening Expected: 05/12/2025 (Approximate), Expires: 05/12/2026[facility] Work Phone: comment on above:Expected: 05/12/2025 (Approximate), Expires: 05/12/2026Start: 05-12-2025 End: 03-37-6199Bzwwcgefdpg of glucose 1 hour after glucose challenge for glucose tolerance testGlucose tolerance, 1 hour Lab Routine Diabetes mellitus screening Expected: 05/12/2025 (Approximate), Expires: 05/12/2026[facility] HealthcareComment on above:Expected: 05/12/2025 (Approximate), Expires: 05/12/2026Start: 05-12-2025 End: 72-39-1281Qxynaca encounter procedureNOMS Ford OBGYNComment on above: ArrivedStart: 04-15-2025 End: 20-24-2808Rmleedc encounter procedureNOMS Wilton OBGYNComment on above: ArrivedStart: 94-83-6234FLCRM-19 Vaccine ( season)COVID-19 Vaccine ( season)NOMS HealthcareStart: 17-03-7681Mprqzgaph vaccinationNOID HealthcareStart: 04-08-2025 End: 43-61-0107Pynhxpuqzcre / ancillary services oebjpxphxt21/28/2025 8:00 AM EDT Ancillary Procedure [facility] [facility] [address] [place] [phone] [facility]Start: 04-05-2025 End: 94-90-2830Vobdnjh encounter ufdkyeepk44/25/2025 10:20 AM EDT Office Visit [facility] [address] [place] [place] [phone] Abad Canchola DO [address] [place] [address] NOMS BCP OBStart: 03-18-2025 End: 26-17-3447Osten fetoprotein, maternalAlpha fetoprotein, maternal Lab Routine 17 weeks gestation of ([facility]) Second trimester ([facility]) Expected: 03/18/2025 (Approximate), Expires: 04/18/2025[facility] Comment on above:Expected: 03/18/2025 (Approximate), Expires: 04/18/2025Start: 03-18-2025 End: 66-03-9536FO for pregnancyUS OB 14+ weeks anatomy scan Imaging Routine Screening, , for anatomic survey ([facility]) Expected: 03/18/2025, Expires: 06/18/2025[facility] SystemComment on above:Expected: 03/18/2025, Expires: 06/18/2025Start: 03-18-2025 End: 13-08-4559Bfvheof encounter tiemlfdxp48/07/2025 10:30 AM EDT Routine [facility] [address] [place] [phone] Shagufta Oneal PA [address] [place], [place] [phone] NOMS BCP OBStart: 03-18-2025 End: 41-25-9671Ezdeveegajqs / ancillary services vxlpzenmbj56/07/2025 10:00 AM EDT Ancillary Procedure [facility] [address] [place] [phone] NOMS BCP OBStart: 22-05-7880Wdghtaqkv vaccinationFlu vaccine (#1)Huseyin Ennis [facility]bleStart: 02-18-2025 End: 27-58-4117Oyiujsj encounter wksfgccge07/10/2025 8:40 AM EDT Routine [facility] [address] [place] [address] Abad Canchola, [address] [place] [address] NOMS BCP OBStart: 01-21-2025 End: 01-66-0783WNX/RhABO/Rh Lab Routine Missed menses , unspecified gestational age ([facility]) Expected: 01/21/2025 (Approximate), Expires: 01/21/2026NOID HealthcareComment on above:Expected: 01/21/2025 (Approximate), Expires: 01/21/2026Start: 01-21-2025 End: 69-19-0505eqqczxufzy40/12/2025 2:00 PM EDT Initial NOMS [address] [place] [address] NOMS BCP OBStart: 01-21-2025 End: 50-24-5989Oeskn type and Indirect antibody screen panel - BloodType and screen Lab Routine Missed menses , unspecified gestational age ([facility]) Expected: 01/21/2025 (Approximate), Expires: 01/21/2026[facility] Work Phone: comment on above:Expected: 01/21/2025 (Approximate), Expires: 01/21/2026Start: 01-21-2025 End: 84-77-5204Xnzuu of abuse panel - Urine by Screen methodRapid drug screen, urine Lab Routine , unspecified gestational age ([facility]) Encounter for supervision of normal first in first trimester ([facility]) Expected: 01/21/2025 (Approximate), Expires: 01/21/2026NOMS HealthcareComment on above: Expected: 01/21/2025 (Approximate), Expires: 01/21/2026Start: 01-21-2025 End: 47-21-2538Iqlyewmmxklf / ancillary services utfmfgoxlr04/12/2025 1:30 PM EDT Ancillary Procedure [facility] [address] [place] [address] NJQZ BCP OBStart: 12-17-2024 End: 35-03-2497Jmqetselinjs / ancillary services bgnezblioi31/08/2025 8:00 AM EDT Ancillary Procedure [facility] [address] [place] [address] VPSQ BCP OBStart: 12-01-2024 End: 18-67-5838Hvksbjgvrlvne hormone ([facility])Antimullerian hormone ([facility]) Lab Routine Abnormal uterine bleeding (AUB) Endometriosis Expected: 12/01/2024 (Approximate), Expires: 12/01/2025NOMS HealthcareComment on above:Expected: 12/01/2024 (Approximate), Expires: 12/01/2025Start: 12-01-2024 End: 13-44-3576ILXAQKYV Lab Routine PCOS (polycystic ovarian syndrome) Expected: 12/01/2024 (Approximate), Expires: 12/01/2025NOMS HealthcareComment on above: Expected: 12/01/2024 (Approximate), Expires: 12/01/2025Start: 12-01-2024 End: 77-55-0303NX PelvisUS Pelvis w/ TV Imaging Routine PCOS (polycystic ovarian syndrome) Expected: 12/01/2024, Expires: 12/01/2025NOMS HealthcareComment on above:Expected: 12/01/2024, Expires: 12/01/2025Start: 86-06-5265Lkcdo BMI ScreeningAdult BMI ScreeningProRegency Hospital Cleveland Easttart: 93-12-7944Jqisvzehfy ScreeningDepression ScreeningKnox Community Hospital SystemStart: 27-15-6870Rfjuuwp ScreeningTobacco ScreeningKnox Community Hospital SystemStart: 06-42-8088TFUQC-19 Vaccine ( season)COVID-19 Vaccine ( season)Huseyin Ennis [facility] HealthStart: 06-78-2228Jjxwesbpj vaccinationNOID HealthcareStart: 23-99-9703Phqfr BMI Follow Up PlanAdult BMI Follow Up PlanKnox Community Hospital SystemStart: 14-12-5824Gyvot BMI ScreeningAdult BMI ScreeningKnox Community Hospital SystemStart: 36-26-6786Xvotxolqa for Chlamydia trachomatisChlamydia Screening [facility] CenterComment on above:Postponed from 1999 (Not Indicated)Start: 41-61-7451Ctpovsuou vaccinationInfluenza VaccineKnox Community Hospital SystemStart: 10-40-0873Udpwnfqgk vaccinationFlu vaccine (Season Ended) WYANDOTStart: 02-29-1702LCzT,Tdap and Td Vaccines (7 - Td or Tdap)DTaP,Tdap and Td Vaccines (7 - Td or Tdap)[facility] SystemStart: 86-24-6405XVeQ/Tdap/Td vaccine (1 - Tdap)DTaP/Tdap/Td vaccine (1 - Tdap)W[place]ANDOTStart: 2018 Hepatitis B Vaccines (1 of 3 - 19+ 3-dose series)Hepatitis B Vaccines (1 of 3 - 19+ 3-dose series)[facility]OMS HealthcareStart: 65-74-3766KXI Vaccines (1 - 3-dose series)HPV Vaccines (1 - 3-dose series)NOMS HealthcareStart: 66-84-6664Gseadgm of varicella vaccinationVaricella Vaccines (1 of 2 - 13+ 2-dose series)NOMS HealthcareStart: 30-96-5335ADqD/Tdap/Td Vaccines (1 - Tdap)DTaP/Tdap/Td Vaccines (1 - Tdap)NOMS HealthcareStart: 22-39-4096LXT Vaccines (1 of 1 - Standard series)MMR Vaccines (1 of 1 - Standard series)NOMS HealthcareStart: 03-20-2000 COVID-19 Vaccine (#1)COVID-19 Vaccine (#1)WYANDOTBacteria identified in Urine by CultureUrine culture Microbiology Routine Missed menses Ordered: 01/21/2025[facility] HealthcareComment on above:Ordered: 01/21/2025BC W Auto Differential panel - BloodCBC and differential Lab Routine PCOS (polycystic ovarian syndrome) Ordered: 12/01/2024[facility] HealthcareComment on above:Ordered: 12/01/2024BC W Auto Differential panel - BloodCBC and differential Lab Routine Missed menses , unspecified gestational age ([facility]) Ordered: 01/21/2025[facility] HealthcareComment on above:Ordered: 01/21/2025HLAMYDIA TRACHOMATIS (GENITO/STI) CHLAMYDIA TRACHOMATIS (GENITO/STI) Lab Routine Exposure to STD Ordered: 03/18/2025ID HealthcareComment on above:Ordered: 03/18/2025HLAMYDIA TRACHOMATIS (GENITO/STI)CHLAMYDIA TRACHOMATIS (GENITO/STI) Lab Routine Vaginal discharge during , antepartum ([facility]) Ordered: 04/15/2025[facility] HealthcareComment on above:Ordered: 04/15/2025ytology Cervical or vaginal smear or scraping studyPap Smear Pathology and Cytology Routine Second trimester ([facility]) 21 weeks gestation ofpregnancy ([facility]) Ordered: 04/15/2025 [facility] Healthcare Work Phone: comment on above:Ordered: 04/15/2025DHEA-sulfateDHEA- sulfate Lab Routine PCOS (polycystic ovarian syndrome) Ordered: 12/01/2024[facility] HealthcareComment on above:Ordered: 12/01/2024Follicle stimulating hormone Follicle stimulating hormone Lab Routine PCOS (polycystic ovarian syndrome) Ordered: 12/01/2024[facility] HealthcareComment on above:Ordered: 12/01/2024hCG, quantitative, pregnancyhCG, quantitative, Lab Routine PCOS (polycystic ovarian syndrome) Ordered: 12/01/2024[facility] Healthcare Work Phone: comment on above:Ordered: 12/01/2024Hemoglobin A1c/Hemoglobin.total in BloodHemoglobin A1c Lab Routine Abnormal uterine bleeding (AUB) Endometriosis Ordered: 12/01/2024[facility] HealthcareComment on above: Ordered: 12/01/2024Hemoglobin A1c/Hemoglobin.total in BloodHemoglobin A1c Lab Routine Missed menses , unspecified gestational age ([facility]) Ordered: 01/21/2025[facility] HealthcareComment on above:Ordered: 01/21/2025Hepatitis B virus surface Ag [Presence] in Serum or Plasma by ImmunoassayHepatitis B surface antigen Lab Routine Missed menses , unspecified gestational age ([facility]) Ordered: 01/21/2025[facility] HealthcareComment on above:Ordered: 01/21/2025 Hepatitis C virus Ab [Presence] in Serum or Plasma by ImmunoassayHepatitis C antibody Lab Routine Missed menses , unspecified gestational age ([facility]) Ordered: 01/21/2025[facility] HealthcareComment on above:Ordered: 01/21/2025 HIV-1/HIV-2 antigen/antibody combination immunoassayHIV-1 and HIV-2 antibodies Lab Routine Missed menses , unspecified gestational age ([facility]) Ordered: 01/21/2025[facility] HealthcareComment on above:Ordered: 01/21/2025 Luteinizing hormoneLuteinizing hormone Lab Routine PCOS (polycystic ovarian syndrome) Ordered: 12/01/2024[facility] HealthcareComment on above:Ordered: 12/01/2024 Neisseria gonorrhoeae DNA [Presence] in Unspecified specimen by SANJANA with probe detectionNeisseria gonorrhea DNA probe, direct Lab Routine Exposure to STD Ordered: 03/18/2025[facility] HealthcareComment on above:Ordered: 03/18/2025Neisseria gonorrhoeae DNA [Presence] in Unspecified specimen by SANJANA with probe detection Neisseria gonorrhea DNA probe, direct Lab Routine Vaginal discharge during , antepartum ([facility]) Ordered: 04/15/2025[facility] HealthcareComment on above:Ordered: 04/15/2025Protein/Creatinine [Mass Ratio] in Urine Protein:Creatinine Ratio, Urine Lab Routine induced hypertension, antepartum ([facility]) Ordered: 06/21/2025[facility] HealthcareComment on above:Ordered: 06/21/2025 End: 19-38-3959Tsacnvnmyvq [facility] Phone: Comment on above:Once for 1 Occurrences starting 03/04/2025 until 03/04/2025Reagin Ab [Presence] in Serum by RPRRPR Lab Routine Missed menses , unspecified gestational age ([facility]) Ordered: 01/21/2025[facility] HealthcareComment on above:Ordered: 01/21/2025Rubella antibody, IgGRubella antibody, IgG Lab Routine Missed menses , unspecified gestational age ([facility]) Ordered: 01/21/2025[facility] HealthcareComment on above: Ordered: 01/21/2025SURESWAB(R) ADVANCED VAGINITIS PLUS, TMASURESWAB(R) ADVANCED VAGINITIS PLUS, TMA Pathology and Cytology Routine Vaginal discharge Ordered: 0 03/18/2025[facility] Work Phone: comment on above:Ordered: 03/18/2025SURESWAB(R) ADVANCED VAGINITIS PLUS, TMASURESWAB(R) ADVANCED VAGINITIS PLUS, TMA Pathology and Cytology Routine Vaginal discharge during , antepartum ([facility]) Ordered: 04/15/2025[facility] HealthcareComment on above:Ordered: 04/15/2025 Thyrotropin [Units/volume] in Serum or PlasmaTSH Lab Routine PCOS (polycystic ovarian syndrome) Ordered: 12/01/2024[facility] System[facility] on above:Ordered: 12/01/2024Thyroxine (T4) free [Mass/volume] in Serum or PlasmaT4, free Lab Routine PCOS (polycystic ovarian syndrome) Ordered: 12/01/2024[facility] Comment on above:Ordered: 12/01/2024 Immunizations Immunization DateImmunizationNotesCare YpryrfrwHozfvcip61-96-3016ionqfcwcy, injectable, quadrivalent, preservative freeMary Kuns OFFICE MACHINE REPAIR SHOP SUPERVISOR-RV SERVICE TECHNICIAN Work Phone: [facility] HospitalEzkkwj23-09-0502xefsnyejn virus vaccine, unspecified formulationMary Kuns OFFICE MACHINE REPAIR SHOP SUPERVISOR-RV SERVICE TECHNICIAN Work Phone: [facility] CenterFfsswo19-13-7479ERRHD-48, mRNA, LNP- S, PF, 100mcg/0.5mL DoseMary Kuns OFFICE MACHINE REPAIR SHOP SUPERVISOR-RV SERVICE TECHNICIAN Work Phone: [facility] CenterKexjyf38-52-7218ULDZY-60, mRNA, LNP- S, PF, 100mcg/0.5mL DoseAnnel Yuen OFFICE MACHINE REPAIR SHOP SUPERVISOR-RV SERVICE TECHNICIAN Work Phone: [facility] CenterYpqxzy38-30-4248xwkqwuaba, injectable, quadrivalent, preservative freeAnnel Yuen OFFICE MACHINE REPAIR SHOP SUPERVISOR-RV SERVICE TECHNICIAN Work Phone: [facility] CenterAkqmfq28-92-2659uzwwntjaa A vaccine, pediatric/adolescent dosage, 2 dose scheduleAnnel Yuen OFFICE MACHINE REPAIR SHOP SUPERVISOR-RV SERVICE TECHNICIAN Work Phone: [facility]07-28-2017Human Papillomavirus 9-valent vaccineAnnel Yuen OFFICE MACHINE REPAIR SHOP SUPERVISOR-RV SERVICE TECHNICIAN Work Phone: [facility] CenterKufetj50-00-7397ppoxnqpaxooow oligosaccharide (groups A, C, Y and W-135) diphtheria toxoid conjugate vaccine (MCV4O)Annel Yuen OFFICE MACHINE REPAIR SHOP SUPERVISOR-RV SERVICE TECHNICIAN Work Phone: [facility]10-30-2012human papilloma virus vaccine, quadrivalentAnnel Yuen OFFICE MACHINE REPAIR SHOP SUPERVISOR-RV SERVICE TECHNICIAN Work Phone: [facility] [employer] Dmvfca40-43-2585thpjxdarezloa polysaccharide (groups A, C, Y and W-135) diphtheria toxoid conjugate vaccine (MCV4P)Annel Yuen OFFICE MACHINE REPAIR SHOP SUPERVISOR-RV SERVICE TECHNICIAN Work Phone: [facility] CenterNxtzeu17-00-7444phccwgmig virus vaccineAnnel Yuen OFFICE MACHINE REPAIR SHOP SUPERVISOR-RV SERVICE TECHNICIAN Work Phone: [facility] CenterQaquli71-46-8491klwgjcuzn A vaccine, pediatric/adolescent dosage, 2 dose scheduleAnnel Yuen OFFICE MACHINE REPAIR SHOP SUPERVISOR-RV SERVICE TECHNICIAN Work Phone: [facility]09-12-2012human papilloma virus vaccine, quadrivalentAnnel Yuen OFFICE MACHINE REPAIR SHOP SUPERVISOR-RV SERVICE TECHNICIAN Work Phone: [facility]09-12-2012tetanus toxoid, reduced diphtheria toxoid, and acellular pertussis vaccine, adsorbedAnnel Yuen OFFICE MACHINE REPAIR SHOP SUPERVISOR-RV SERVICE TECHNICIAN Work Phone: [facility] CenterUvypuk12-57-6382bmktsvoxch, tetanus toxoids and acellular pertussis vaccine, unspecified 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 Yuen OFFICE MACHINE REPAIR SHOP SUPERVISOR-RV SERVICE TECHNICIAN Work Phone: [facility]07-07-2005measles, mumps and rubella virus vaccineAnnel Yeun OFFICE MACHINE REPAIR SHOP SUPERVISOR-RV SERVICE TECHNICIAN Work Phone: [facility] CenterKykpps28-07-1380dyujsdhhuh vaccine, inactivatedAnnel Yuen OFFICE MACHINE REPAIR SHOP SUPERVISOR-RV SERVICE TECHNICIAN Work Phone: [facility] CenterDdoefe60-92-9168yalwigsvxs, tetanus toxoids and acellular pertussis vaccine, unspecified 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 Yuen OFFICE MACHINE REPAIR SHOP SUPERVISOR-RV SERVICE TECHNICIAN Work Phone: [facility] CenterMpcozw24-44-3776dtfyzmquzap influenzae type b conjugate and Hepatitis B vaccineAnnel Yuen OFFICE MACHINE REPAIR SHOP SUPERVISOR-RV SERVICE TECHNICIAN Work Phone: [facility]04-26-2001measles, mumps and rubella virus vaccineAnnel Yuen OFFICE MACHINE REPAIR SHOP SUPERVISOR-RV SERVICE TECHNICIAN Work Phone: [facility] CenterZaypeq40-27-0432ajdydrsmdv vaccine, inactivatedAnnel Yuen OFFICE MACHINE REPAIR SHOP SUPERVISOR-RV SERVICE TECHNICIAN Work Phone: [facility] CenterJhnfkg57-55-1224phqsriwml virus vaccineAnnel Yuen OFFICE MACHINE REPAIR SHOP SUPERVISOR-RV SERVICE TECHNICIAN Work Phone: [facility] CenterWafdxk96-84-1997xpnppeeipg, tetanus toxoids and acellular pertussis vaccine, unspecified 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 Yuen OFFICE MACHINE REPAIR SHOP SUPERVISOR-RV SERVICE TECHNICIAN Work Phone: [facility] CenterRnxxwr20-30-8375ebyjzyrxlkg influenzae type b vaccine, PRP-OMP conjugateAnnel Yuen OFFICE MACHINE REPAIR SHOP SUPERVISOR-RV SERVICE TECHNICIAN Work Phone: [facility] CenterEfbfan64-16-4833dfuwnuaoil, tetanus toxoids and acellular pertussis vaccine, unspecified 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 Yuen OFFICE MACHINE REPAIR SHOP SUPERVISOR-RV SERVICE TECHNICIAN Work Phone: [facility] CenterIcwyvp10-70-1690kknzjkylthf influenzae type b conjugate and Hepatitis B vaccineAnnel Yuen OFFICE MACHINE REPAIR SHOP SUPERVISOR-RV SERVICE TECHNICIAN Work Phone: [facility] CenterBxkpuw57-55-1206thlbfhtfpi vaccine, inactivatedAnnel Yuen OFFICE MACHINE REPAIR SHOP SUPERVISOR-RV SERVICE TECHNICIAN Work Phone: [facility] CenterBbntne62-82-0974smitcvinvo, tetanus toxoids and acellular pertussis vaccine, unspecified 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 Yuen OFFICE MACHINE REPAIR SHOP SUPERVISOR-RV SERVICE TECHNICIAN Work Phone: [facility] CenterRqdpif37-50-4271jxruwyfxhar influenzae type b conjugate and Hepatitis B vaccineAnnel Yuen OFFICE MACHINE REPAIR SHOP SUPERVISOR-RV SERVICE TECHNICIAN Work Phone: [facility] CenterChvkni87-33-9545tjbcmfsuqz vaccine, inactivatedAnnel Yuen OFFICE MACHINE REPAIR SHOP SUPERVISOR-RV SERVICE TECHNICIAN Work Phone: [facility] Payers DatePayer CategoryPayerPolicy [id number] [place] [employer] [id number] [id number] Health [id number] [id number] 1.2.840.557861.1.13.239.2.7.3.650164. Medicaid1.2.840.862294.1.13.693.2.7.3.087443.23562-26-9230Nyotzsm Health Insurance1.2.840.935230.1.13.693.2.7.9.676469.344513.10629-37-1268Rafdvav 1.2.840.172065.1.13.693.2.7.3.061[id number] 2.16.840.1.488802.3.57[id number] 2.16.840.1.435701.3.57[id number] 2.16.840.1.626247.3.57[id number] 2.16.840.1.219940.3.57[id number] 2.16.840.1.390390.3.57[id number] 2.16.840.1.902001.3.57[id number] 2.16840.1.563034.3.57[id number] 2.16.840.1.787268.3.57[id number] 2.16.840.1.720647.3.57[id number] 2.16.840.1.631051.3.57[id number] 2.16.840.1.779136.3.57[id number] 2.16.840.1.765160.3.579.[id number] 2.16.840.1.049616.3.579.2.[id number] 2.16.840.1.583099.3.579.2.620[id number] 2.16.840.1.324678.3.57[id number] 2.16.840.1.016224.3.579.2.385783-74-3745Eyzgsor89789244 2.16.840.1.488996.3.579.2.262549-69-5500Uyzrmvv36786384 2.16.840.1.409878.3.579.[id number] 2.16.840.1.331045.3.579.2.782372-21-9334Ocjzqob Health [id number] [id number] QwatmqffiVPP0937 83s35erp-6025-3r07-24f9-096726258ul5 Social History DateTypeDetailFacilityTobacco smoking status NHISTobacco smoking consumption unknownWYANDOT Work Phone: start: 08-29-2118Vdm Assigned At BirthNot on file [facility] Work Phone: start: 03-03-2023 End: 48-41-6572Nkmdazb smoking status NHISNever smoked tobacco (finding) [facility]: 79-19-6215Mrf Assigned At BirthFemale [facility]: 03-25-2024 End: 72-29-6453Xmkkzhmov beverage intakeLifetime non-drinker (finding)[facility] HealthcareStart: 03-25-2024 End: 42-79-4202Bxfqkzu of Social functionProMediMercy Health St. [facility] Medical [facility] SystemStart: 03-25-2024 End: 35-67-8487Pbegneq use panelProWexner Medical Center SystemStart: 17-73-1087Wgvsfqy use and exposureSmokeless tobacco non-userProWexner Medical Center SystemStart: 43-84-7922Feupnkh intakeEx-drinker (finding)[facility] SystemStart: 65-38-7462Rmk hard is it for you to pay for the very basics like food, housing, medical care, and heatingNot hard at [facility]Tous[facility] - It's what's in store SystemStart: 05-04-2022 Gender identityIdentifies as female gender (finding)[facility] Start: 08-42-8305UxklxsveoGUHQPeninsula Hospital, [place], operated by Covenant HealthStart: 10-87-6087CymLlcmqz (finding)[facility] Clinical Notes 06-30-2021 to 06-21-2025 Note Date & JzxdYanwOunytuft81-98-3640 History of Present illness Narrative* Cecilia Khan, WAFER POLISHER - 06/21/2025 3:40 PM EST Reason for [...] nursing note reviewed. Exam conducted with a hooker laster present. Vitals: Estimated body mass index is [...] of: Abad Canchola DO documented in this encounterDeaconess Incarnate Word Health SystemGteksodije99-84-4095 History of Present illness Narrative* DOMINGUEZ Villagran [...] nursing note reviewed. Exam conducted with a hooker laster present. Vitals: Estimated body mass index is 34.4 kg/m as calculated from the following: Height as of 09/24/19: 5' 6 . Weight as of this encounter: 213 lb 1.9 oz. BP: 124/82 Patient's last menstrual period was 11/19/2024 (approximate). Assessment/Plan ICD-10-CM 1. 28 weeks gestation of ([facility]) Z3A.28 POCT urinalysis dipstick manually resulted 2. Second trimester ([facility]) Z34.92 POCT urinalysis dipstick manually resulted [...] behalf of: DOMINGUEZ Villagran documented in this encounterDeaconess Incarnate Word Health SystemVkdpzcxqnt07-95-9511 History of Present illness Narrative* Say Roy [...] nursing note reviewed. Exam conducted with a hooker laster present. Vitals: Estimated body mass index is 33.25 kg/m as calculated from the following: Height as of 09/24/19: 5' 6 . Weight as of 04/15/25: 206 lb. BP: Patient's last menstrual period was 11/19/2024 (approximate). ASSESSMENT & PLAN ICD-10-CM 1. 24 weeks gestation of ([facility]) Z3A.24 POCT urinalysis dipstick manually resulted 2. Second trimester ([facility]) Z34.92 3. Diabetes mellitus screening Z13.1 [...] of: Say Roy NP documented in this encounterDeaconess Incarnate Word Health SystemTuonjxppfr62-63-9169 History of Present illness Narrative* Chelsie Arango [...] nursing note reviewed. Exam conducted with a hooker laster present. Vitals: Estimated body mass index is 33.25 kg/m as calculated from the following: Height as of 09/24/19: 5' 6 . Weight as of this encounter: 206 lb. BP: 116/72 Patient's last menstrual period was 11/19/2024 (approximate). ASSESSMENT & PLAN ICD-10-CM 1. Second trimester ([facility]) Z34.92 Pap Smear 2. 21 weeks gestation of ([facility]) Z3A.21 Pap Smear 3. Nausea and vomiting during ([facility]) O21.9 metoclopramide (Reglan) 10 MG tablet 4. Vaginal discharge during , antepartum ([facility]) O26.899 N89.8 Return OB/Annual Exam: Patient [...] of: Abad Canchola DO documented in this encounterDeaconess Incarnate Word Health SystemBitpttamcm50-15-2679 History of Present illness Narrative* DOMINGUEZ Villagran [...] PLAN ICD-10-CM 1. 17 weeks gestation of ([facility]) Z3A.17 POCT urinalysis dipstick manually resulted Alpha fetoprotein, maternal Alpha fetoprotein, maternal 2. Second trimester ([facility]) Z34.92 POCT urinalysis dipstick manually resulted Alpha fetoprotein, maternal Alpha fetoprotein, maternal 3. Subchorionic hematoma in first trimester, single or unspecified fetus ([facility]) O41.8X10 O46.8X1 4. Screening, , for anatomic survey ([facility]) Z36.89 US OB 14+ weeks anatomy [...] behalf of: DOMINGUEZ Villagran documented in this encounterDeaconess Incarnate Word Health SystemUfdeuwcqlv71-49-5104 Note ADDENDUM #1 Current examination demonstrated an [...] Delivery: 08/26/25 Gestational Age as of 03/18/2025: 66w1f10-30-9409 History of Present illness Narrative* Chelsie Arango [...] nursing note reviewed. Exam conducted with a hooker laster present. Vitals: Estimated body mass index is 33.25 kg/m as calculated from the following: Height as of 09/24/19: 5' 6 . Weight as of this encounter: 206 lb. BP: 124/76 Patient's last menstrual period was 11/19/2024 (approximate). ASSESSMENT & PLAN ICD-10-CM 1. Second trimester ([facility]) Z34.92 POCT urinalysis dipstick manually resulted 2. 13 weeks gestation of ([facility]) Z3A.13 New OB: Patient presents today [...] or undercooked meat, and stay away from [facility]. Patient has been consulted regarding any [...] of: Abad Canchola DO documented in this encounterDeaconess Incarnate Word Health SystemCatiulvexm00-74-3253 History of Present illness Narrative* Cris Gross [...] dipstick manually resulted , unspecified gestational age ([facility]) - Type and screen; Future - ABO/Rh; Future - CBC and differential - Hemoglobin A1c - RPR - Rubella antibody, IgG - Hepatitis B surface antigen - Hepatitis C antibody - HIV-1 and HIV-2 antibodies - Rapid drug screen, urine; Future Encounter for supervision of normal first in first trimester [facility] - Rapid drug screen, urine; Future Nurse Note: Pt unsure of doing the [place] billion to one lab. Advised if patient changes mind to make sure both labs and [place] done at the same time. PVU. OB [...] or undercooked meat, and stay away from [facility]. Patient has also been advised to [...] by: Cris Gross MA documented in this encounterDeaconess Incarnate Word Health SystemMfwlbdvuka76-35-8162 History of Present illness Narrative* Say Roy [...] nursing note reviewed. Exam conducted with a hooker laster present. Vitals: Estimated body mass index is [...] of: Say Roy NP documented in this encounterDeaconess Incarnate Word Health SystemOvmvxtizph67-60-5569 History of Present illness Narrative* Misa Knight [...] nursing note reviewed. Exam conducted with a hooker laster present. Vitals: Estimated body mass index is [...] of: Abad Canchola DO documented in this encounterCynthia Ville [address]Mmlysmmluh04-66-3096 Miscellaneous Notes* Telephone Encounter - Lisa Tijerina - 12/03/2023 8:07 AM EDT ----- Message from YASMINE Singh sent at 03/05/2023 5:31 PM EDT ----- Regarding: wellness exam Due December of - Annel * Telephone Encounter - Lisa Tijerina - 12/03/2023 8:07 AM EDT Patient is switching pcp [facility] Telephone encounter Note* Telephone Encounter - Lisa Tijerina - 12/03/2023 8:07 AM EDT ----- Message from YASMINE Singh sent at 03/05/2023 5:31 PM EDT ----- Regarding: wellness exam Due December of - Annel [facility]04-23-2024 Telephone encounter Note* Telephone Encounter - Lisa Tijerina - 12/03/2023 8:07 AM EDT Patient is switching pcp [facility]12-22-2023 History of Present illness Narrative* [...] YASMINE Singh 08/02/23 1251 documented in this encounterCincinnati [facility] Center11-19-2021 NoteThe [place], [place] NAME: MEREDITH ANTONIO DATE OF : MEDICAL REC#: [id number] SALES TRAINEE: 1406 NIKOLAS BATISTAADMIGOR DATE: 06/30/2021 09:48:00 NAILER HAND DATE: 06/30/2021 20:15 DICTATING PHYSICIAN: ABAD CANCHOLA DICTATION DATE: 06/30/2021 12:00 OPERATIVE NOTE OPERATION DATE: 06/30/2021 PROCEDURE NAME: Diagnostic laparoscopy. PREOPERATIVE DIAGNOSES: 1. Pelvic pain. 2. Menorrhagia. 3. Dysmenorrhea. POSTOPERATIVE DIAGNOSES: 1. Pelvic pain. 2. Menorrhagia. 3. Dysmenorrhea. 4. Endometriosis posterior cul-de-sac. ANESTHESIA: General. SURGEON: Abad Canchola DO CERTIFIED NURSES AIDE: CECILIO Mendoza URINE OUTPUT: Yellow and clear. [...] Abad Canchola DO on 07/03/2021 09:[address] [facility] Signed and Approved by: DR ABAD CANCHOLA . 07/03/2021 09:18:00[facility]Evaluation noteNo assessment information availableOhio [facility] Work Phone: Evaluation note* Diagnosis Onset Date Resolution Status Anxiety and depression acute [facility] Work Phone: Evaluation note* Diagnosis Acute non-recurrent maxillary sinusitis- Primary Non-recurrent acute serous otitis media of both ears Elevated blood pressure reading Elevated blood pressure reading without diagnosis of hypertension documented in this encounter [facility] SystemEvaluation note* Diagnosis Female infertility Female infertility of unspecified origin PCOS (polycystic ovarian syndrome) Polycystic ovaries Abnormal uterine bleeding (AUB) Endometriosis Endometriosis, site unspecified Insulin resistance Other abnormal glucose documented in this encounter [facility]Evaluation [facility]* Diagnosis Amenorrhea Absence of menstruation Missed menses , unspecified gestational age ([facility]) Encounter for supervision of normal first in first trimester ([facility]) documented in this encounter [facility] HealthcareEvaluation note* Diagnosis Nausea and vomiting during - Primary Currently in first trimester with unknown gestational age Constipation, unspecified constipation type documented in this encounter [facility]Evaluation [facility]* Diagnosis Second trimester ([facility]) state, incidental 13 weeks gestation of ([facility]) documented in this encounter [facility]Evaluation note* Diagnosis 17 weeks gestation of ([facility]) Second trimester ([facility]) state, incidental Subchorionic hematoma in first trimester, single or unspecified fetus ([facility]) Screening, , for anatomic survey ([facility]) Encounter for anatomic survey Exposure to STD Vaginal discharge Leukorrhea, not specified as infective documented in this encounter [facility]* Diagnosis Second trimester ([facility]) state, incidental 21 weeks gestation of ([facility]) Nausea and vomiting during ([facility]) Vaginal discharge during , antepartum ([facility]) documented in this encounter [facility]* Diagnosis 24 weeks gestation of ([facility]) Second trimester ([facility]) state, incidental Diabetes mellitus screening Screening for diabetes mellitus documented in this encounter [facility]* Diagnosis size inconsistent with dates ([facility])- Primary 28 weeks gestation of ([facility] Second trimester ([facility]) state, incidental documented in this encounter [facility]* Diagnosis 28 weeks gestation of ([facility]) Third trimester ([facility]) state, incidental induced hypertension, antepartum ([facility]) Transient hypertension of , antepartum documented in this encounter [facility] HealthcareInstructionsNot on filedocumented in this encounterProMediMercy Health St. [facility] SystemInstructionsNot on filedocumented in this encounterProWexner Medical Center System Summary Purpose Family History No Family History Records Found Relationship Condition Age at Onset Recorded Date/T terra Not Specified Malignant neoplasm Unknown Not SpecifiedHeart diseaseUnknownMyocardial infarctionUnknownfatherHypertension UnknownCerebrovascular accident (CVA)Unknown Relationship Condition Age at Onset Recorded Date/T trera paternal grandfather Malignant neoplasm Unknown paternal grandmotherHeart [...] and content) DATE CREATED AUTHOR 06/13/2022 [facility] DATE CREATED AUTHOR AUTHOR'S ORGANIZ ATION 08/09/2023 [facility] DATE CREATED AUTHOR AUTHOR'S ORGANIZ ATION 03/07/2025 [facility] DATE CREATED AUTHOR AUTHOR'S ORGANIZ ATION 06/24/2025 [facility] EPIC Care Teams (unrecognized sec tion and content) Team MemberRelationshipSpecialtyStart DateEnd Date Annel Yuen, OFFICE MACHINE REPAIR SHOP SUPERVISOR - AUTOMOTIVE ARTIST [address] [place] [address] [facility]01/10/23 Team Status: Active Member Role Status [...] DateEnd Date Michelle Pabon MD [address] [place] [phone] PCP - Generalmily Medicine03/25/24Team MemberRelationshipSpecialtyStart DateEnd Date Annel Yuen APRN-RV SERVICE TECHNICIAN [address] [place] [facility] [place] [address] PCP - GeneralFamily Medicine01/18/20Team MemberRelationshipSpecialtyStart DateEnd Date Michelle Pabon MD [address] [facility] [place] [address] PCP - GeneralFamily Medicine03/25/24Team MemberRelationshipSpecialtyStart DateEnd Date Michelle Pabon MD [address] [facility] [place] [address] PCP - GeneralFamily Medicine03/25/24Team MemberRelationshipSpecialtyStart DateEnd Date Michelle Pabon MD [address] [facility] [place] [address] PCP - GeneralFamily Medicine03/25/24Team MemberRelationshipSpecialtyStart DateEnd Date Michelle Pabon MD [address] [facility] [place] [address] PCP - GeneralFamily Medicine03/25/24Team MemberRelationshipSpecialtyStart DateEnd Date Michelle Pabon MD [address] [facility] [place] [address] PCP - GeneralFamily Medicine03/25/24Team MemberRelationshipSpecialtyStart DateEnd Date Michelle Pabon MD [address] [facility] [place] [address] PCP - GeneralFamily Medicine03/25/24Team MemberRelationshipSpecialtyStart DateEnd Date Michelle Pabon MD [address] [facility] [place] [address] PCP - GeneralFamily Medicine03/25/24Team MemberRelationshipSpecialtyStart DateEnd Date Michelle Pabon MD [address] [facility] [place] [address] PCP - GeneralFamily Medicine03/25/24Team MemberRelationshipSpecialtyStart DateEnd Date Michelle Pabon MD [address] [facility] [place] [address] PCP - GeneralFamily Medicine03/25/24Team MemberRelationshipSpecialtyStart DateEnd Date Annel Yuen APRN - [facility] [address] [place] [address] PCP - GeneralNurse Practitioner01/10/23Team MemberRelationshipSpecialtyStart Date End Date Michelle Pabon MD [address] [place] [facility] [place] [address] PCP - GeneralFamily Medicine03/25/24Team MemberRelationshipSpecialtyStart DateEnd Date Michelle Pabon MD [address] [facility] [place] [address] PCP - GeneralFamily Medicine03/25/24Team MemberRelationshipSpecialtyStart DateEnd Date Michelle Pabon MD [address] [place] [facility] [place] [address] PCP - GeneralFamily Medicine03/25/24Team MemberRelationshipSpecialtyStart DateEnd Date Michelle Pabon MD [address] [facility] [place] [address] PCP - [facility]03/25/24Team MemberRelationshipSpecialtyStart DateEnd Date Michelle Pabon MD [address] [place] [facility] [place] [address] PCP - [facility]03/25/24Te MemberRelationshipSpecialtyStart DateEnd Date Michelle Pabon MD [address] [place] [facility] [place] [address] PCP - [facility]03/25/24Te MemberRelationshipSpecialtyStart DateEnd Date Michelle Pabon MD [address] [place] [facility] [place] [address] PCP - [facility]03/25/24 Goals (unrecognized section and content) Goals [...] BE BASED ON THE PRIMARY CLINICAL RECORDS. [facility] provides no warranty or guarantee of the accuracy or completeness of information in this document.
[2025-07-12 16:37] LABS: Hematocrit 38.8 % (36.0-48.0); Hemoglobin 13.6 g/dL (12.0-16.0); Immature Granulocytes Abs Auto 0.03 10^3/uL (0.00-0.03); Immature Granulocytes Pct Auto 0.3 % (0.0-0.5); Lymphocytes Absolute Auto 1.7 10^3/uL (1.2-3.8); Mean Corpuscular HGB Conc 35.1 g/dL (29.9-35.2); Mean Corpuscular Hemoglobin 30.4 pg (26.7-34.0); Mean Corpuscular Volume 86.6 fL (81.0-99.0); Platelet Count 152 10^3/uL (150-450); Red Blood Count 4.48 10^6/uL (4.20-5.40); White Blood Count 8.9 10^3/uL (4.0-11.0)
[2025-07-12 16:45] LABS: Protein Creatinine Ratio Urine 0.14; Total Protein Urine Random 18.7 mg/dL (<=11.9)
[2025-07-12 16:54] LABS: Alanine Aminotransferase 18 U/L (14-59); Aspartate Amino Transferase 12 U/L (15-37); Blood Urea Nitrogen 6.0 mg/dL (7.0-18.0); Estimated GFR (African America >60 (>=60 mL/min/1.73m^2); Estimated GFR (Non-African Ame >60 (>=60 mL/min/1.73m^2); Uric Acid 4.4 mg/dL (2.6-6.0)
[2025-07-12 17:18] LABS: INR 0.94; Partial Thromboplastin Time 26.6 sec (22.3-36.2); Prothrombin Time 9.9 sec (9.0-11.6)
[2025-07-12 17:20] LABS: Fibrinogen 446 mg/dL (200-400)
--- NOTE | 2025-07-12 17:25 | PC.NURSE ---
TC to Dr Alas with blood pressures and labs, pt asymptomatic with 1+ REFLEXES UPPER AND LOWER, dc home and instructed to keep eye on blood pressures at home and to call with elevated bps and or symptoms
== END 2025-07-12 17:30 | disposition home or self-care (01) ==
LOC: US 15:56 → FBC 15:58
PROVIDERS: Obstetrics & Gynecology; PCP Family Medicine; Visit Provider Nurse Practitioner Family
DX: O10.913 Unspecified pre-existing hypertension complicating pregnancy, third trimester (principal); Z3A.33 33 weeks gestation of pregnancy
CPT/HCPCS: 36415; 76818; 82565; 82570; 84156; 84450; 84460; 84520; 84550; 85025; 85384; 85610; 85730

== ENCOUNTER 2025-07-15 16:01 | Outpatient (OUT) | payer OTHER, SELFPAY ==
--- OUTSIDE RECORDS SUMMARY | 2025-07-06 10:40 | XMS_ITS | Encounter Summary ---
Author Organization [facility] Address [address] [place] [address] Care Team Providers Care Rehabilitation Program Manager Name Role Phone Michelle Pabon MD Primary Care Provider [phone] Reason for Visit * ReasonCommentsRoutine Visit Encounter Details DateTypeDepartmentCare Team (Latest Contact Info)Mumeuvkyhzu43/25/2025 10:40 AM ESTRoutine [facility] [address] [place] [phone] Abad Canchola DO [address] [place], [facility]11 Third trimester ([facility]); 32 weeks gestation of ([facility]) Social History Tobacco UseTypesPacks/DayYears UsedDateSmoking Tobacco: NeverAlcohol UseStandard Drinks/WeekCommentsNever0 (1 standard drink = 0.6 oz pure alcohol) Estimated Date of LobaaxeeCcxbliwuTui55/15/2026Based on last menstrual period of 11/19/2024 (Approximate)Sex and Gender InformationValueDate RecordedSex Assigned at BirthNot on fileLegal FkpSxfvsx63/15/2023 10:09 PM EDTGender IdentityNot on fileSexual OrientationNot on filedocumented as of this encounter Last Filed Vital Signs Vital SignReadingTime TakenCommentsBlood Pmuzjfxx222/8607/06/2025 10:55 AM EST Pulse--Temperature--Respiratory Rate--Oxygen Saturation--Inhaled Oxygen Concentration--Iesoaa35.4 kg (217 lb)07/06/2025 10:55 AM ESTHeight--Body Mass [...] nursing note reviewed. Exam conducted with a slab polisher present. Vitals: Estimated body mass index is 35.02 kg/m?? as calculated from the following: Height as of 09/24/19: 5' 6 . Weight as of this encounter: 217 lb. BP: 128/86 Patient's last menstrual period was 11/19/2024 (approximate). Assessment/Plan ICD-10-CM 1. Third trimester ([facility]) Z34.93 POCT urinalysis dipstick manually resulted 2. 32 weeks gestation of ([facility]) Z3A.32 Assessment/Plan Return OB: Patient presents today [...] Plan of Treatment DateTypeDepartmentCare Team (Latest Contact Info)Nolbhqrehas18/09/2025 8:50 AM ESTRoutine [facility] [address] [place] [address] Patricia Roy NP [address] [place] [address] documented as of this encounter Procedures Procedure NamePriorityDate/TimeAssociated DiagnosisCommentsPOCT URINALYSIS EJOPPHUXDszevmr23/25/2025 11:00 AM EST Third trimester ([facility]) documented in this encounter Results * POCT [...] this encounter Visit Diagnoses Diagnosis Third trimester ([facility]) state, incidental 32 weeks gestation of ([facility]) documented in this encounter Care Teams Team MemberRelationshipSpecialtyStart DateEnd Date Michelle Pabon MD [address] [place] [address] PCP - GeneralFamily Medicine03/25/24documented as of this encounter
--- OUTSIDE RECORDS SUMMARY | 2025-07-15 16:05 | XMS_ITS | Encounter Summary ---
Author Organization [facility] Address [address] [place] [address] Care Team Providers Care Range Mechanic Name Role Phone Michelle Pabon MD Primary Care Provider Encounter Details DateTypeDepartmentCare Team (Latest Contact Info)Nbqyxjtkbmy94/25/2025amboo flowsheet ENRIQUE CHINCHILLA [address] [facility] [place] [address] Abad Canchola, [address] [facility] [place] [address] Social History Tobacco UseTypesPacks/DayYears UsedDateSmoking Tobacco: NeverAlcohol UseStandard Drinks/WeekCommentsNever0 (1 standard drink = 0.6 oz pure alcohol) Estimated Date of GcvwlaacNyfkelyvFqp34/15/2026Based on last menstrual period of 11/19/2024 (Approximate)Sex and Gender InformationValueDate RecordedSex Assigned at BirthNot on fileLegal HegSurpqk64/15/2023 10:09 PM EDTGender IdentityNot on fileSexual OrientationNot on filedocumented as of this encounter Plan of Treatment DateTypeDepartmentCare Team (Latest Contact Info)Oadikftqxzk93/09/2025 8:50 AM ESTRoutine NOMFatimah CHINCHILLA [address] [place] [address] Patricia Roy, STOCK PITCHER [address] [place] [address] documented as of this encounter Visit Diagnoses Not on filedocumented in this encounter Care Teams Team MemberRelationshipSpecialtyStart DateEnd Date Michelle Pabon MD [address] [place] [phone] PCP - GeneralFamily Medicine03/25/24documented as of this encounter
--- OUTSIDE RECORDS SUMMARY | 2025-07-15 16:05 | XMS_ITS | Encounter Summary ---
Author Organization [facility] Address [address] [place] [address] Care Team Providers Care Lab Tester Name Role Phone Michelle Pabon MD Primary Care Provider [phone] Encounter Details DateTypeDepartmentCare Team (Latest Contact Info)Hvasgnfzxyz92/28/2025linisync Result Encounter [facility] External Department Unsolicited Say Roy, NELLY [address] [place] [address] Social History Tobacco UseTypesPacks/DayYears UsedDateSmoking Tobacco: NeverAlcohol UseStandard Drinks/WeekCommentsNever0 (1 standard drink = 0.6 oz pure alcohol) Estimated Date of ZhacqoloLbdwrbdwIxw35/15/2026ased on last menstrual period of 11/19/2024 (Approximate)Sex and Gender InformationValueDate RecordedSex Assigned at BirthNot on fileLegal AcdTdjljy11/15/2023 10:09 PM EDTGender IdentityNot on fileSexual OrientationNot on filedocumented as of this encounter Plan of Treatment DateTypeDepartmentCare Team (Latest Contact Info)Druapbkdmeg70/09/2025 8:50 AM ESTRoutine [facility]OMS Logan CHINCHILLA [address] [place] [address] Say Roy, NELLY [address] [place] [address] documented as of this encounter Procedures Procedure NamePriorityDate/TimeAssociated DiagnosisCommentsUS OB BPP W NON-ZTLLXZ9607/09/2025 3:47 PM EST documented in this encounter Results * US OB BPP W NON-STRESS (07/09/2025 3:47 PM EST)Anatomical Region LateralityModalityOtherSpecimen (Source)Anatomical Location / Laterality Collection Method / VolumeCollection TimeReceived Time07/09/2025 3:47 PM EST Narrative 07/09/2025 3:50 PM EST [facility] ?[address] ? [place] [address] ? Ultrasound Report ? Signed ? Patient: MEREDITH TEMPLETON S ?MR#: [id number] ?? : 2000 ?Acct:[id number] ?? Age/Sex: 24 / F ?ADM Date: 07/09/25 ?? Loc: [facility] ??255-1 ? Attending Dr: Say Roy ? Ordering Physician: Say Roy ?? Date of Service: 07/09/25 ?? Procedure(s): US OB BPP w non-stress ?? Accession Number(s): [id number] ? cc: Michelle Pabon M.D.; Say Roy ? [facility] ? [address] ? [place] [address] ? Patient Name: ?? MEREDITH TEMPLETON ? MRN: [facility]:[id number] ? date: 2000 ?Sex: F ?? Assigned Patient Location: [facility] ?? Current Patient Location: [facility] ?? Accession/Order Number: [id number] ?? Exam Date: 07/09/2025 ??15:02 ?Report Date: [...] Dictation Location: RADIO-PC-29 ? Electronically authenticated by: [id number] ??Y ?? Date: 07/09/2025 ??15:47 ? Dictated By: ?Duncan Jones M.D. ? Signed By: ?11/28/25 1550 ? DD/DT: 07/09/ 1547 ? TD/TT: ? Judicial Administrative Assistant: Procedure Note Radiology, Radiologist, - 07/09/2025 [place] [address] Ultrasound Report Signed Patient: MEREDITH TEMPLETON SMR#: [id number] : 2000Acct:[id number] Age/Sex: 24 / FADM Date: 07/09/25 Loc: [facility] 255-[address]: Say Roy Ordering Physician: Say Roy Date of Service: 07/09/25 Procedure(s): US OB BPP w non-stress Accession Number(s): [id number] cc: [place] Pabon M.D.; Say Roy [place] [address] Patient Name: MEREDITH TEMPLETON MRN: [id number] date: 2000 Sex: F Assigned Patient Location: [facility] Current Patient Location: [facility] Accession/Order Number: [id number] Exam Date: 07/09/2025 15:02 Report Date: 07/09/2025 15:47 At the request of: SAY ROY Procedure: US OB BPP w non-stress Ultrasound biophysical profile INDICATION: Hypertension during COMPARISON: 06/28/2025 FINDINGS IMPRESSION: Cephalic position. heart rate 150 beatsper minutes. VALENTINA: 10.4 cm. Biophysical profile score 8/8. Impression dictated by: Duncan Jones M.D. 07/09/2025 3:47 PM Dictation Location: [place] [address] Electronically authenticated by: [id number] Y Date: 5:47 Dictated By: Duncan Jones M.D. Signed By:07/09/25 1550 DD/ 1547 TD/TT: Judicial Administrative Assistant: Authorizing ProviderResult TypeResult StatusSay Roy NPCLINISYNC IMAGING Final Result documented in this encounter Visit Diagnoses Not on filedocumented in this encounter Care Teams Team MemberRelationshipSpecialtyStart DateEnd Date Michelle Pabon MD [address] [place] [address] PCP - GeneralFamily Medicine03/25/24documented as of this encounter
--- OUTSIDE RECORDS SUMMARY | 2025-07-15 16:05 | XMS_ITS | Encounter Summary ---
Author Organization [facility] Address [address] [facility] [place] [address] Care Team Providers Care Inspector Fabric Name Role Phone Michelle Pabon MD Primary Care Provider [phone] Encounter Details DateTypeDepartmentCare Team (Latest Contact Info)Rnmlqriqkos50/01/2025linisync Result Encounter [facility] External Department Unsolicited Say Roy, NELLY [address] [place] [address] Social History Tobacco UseTypesPacks/DayYears UsedDateSmoking Tobacco: NeverAlcohol UseStandard Drinks/WeekCommentsNever0 (1 standard drink = 0.6 oz pure alcohol) Estimated Date of KcyfcrvlOylqspxkBlg96/15/2026ased on last menstrual period of 11/19/2024 (Approximate)Sex and Gender InformationValueDate RecordedSex Assigned at BirthNot on fileLegal XatEgzfjr39/15/2023 10:09 PM EDTGender IdentityNot on fileSexual OrientationNot on filedocumented as of this encounter Plan of Treatment DateTypeDepartmentCare Team (Latest Contact Info)Ryuzmuignxt17/09/2025 8:50 AM ESTRoutine [facility] Logan CHINCHILLA [address] [place] [address] Say Roy, NELLY [address] [place] [address] documented as of this encounter Procedures Procedure NamePriorityDate/TimeAssociated DiagnosisCommentsUS OB BPP W NON-XFLJTM5007/12/2025 5:17 PM EST documented in this encounter Results * US OB BPP W NON-STRESS (07/12/2025 5:17 PM EST)Anatomical Region LateralityModalityOtherSpecimen (Source)Anatomical Location / Laterality Collection Method / VolumeCollection TimeReceived Time07/12/2025 5:17 PM EST Narrative 07/12/2025 5:20 PM EST [facility] ?[address] ? [place] [address] ? Ultrasound Report ? Signed ? Patient: MEREDITH TEMPLETON S ?MR#: [id number] ?? : 2000 ?Acct:[id number] ?? Age/Sex: 24 / F ?ADM Date: 07/12/25 ?? Loc: [facility] ??250-1 ? Attending Dr: Say Roy ? Ordering Physician: Say Roy ?? Date of Service: 07/12/25 ?? Procedure(s): US OB BPP w non-stress ?? Accession Number(s): [id number] ? cc: [place] Pabon M.D.; Say Roy ? [facility] ? [address] ? [place] [address] ? Patient Name: ?? MEREDITH TEMPLETON ? MRN: [facility]:[id number] ? date: 2000 ?Sex: F ?? Assigned Patient Location: [facility] ?? Current Patient Location: [facility] ?? Accession/Order Number: [id number] ?? Exam Date: 07/12/2025 ??16:32 ?Report Date: 07/12/2025 ??17:17 ? At the request of: ?? SAY ??ASHLEY ? Procedure: ??US OB BPP w non-stress ? Ultrasound biophysical profile ? INDICATION: Hypertension during ? COMPARISON: 07/09/2025 ? FINDINGS IMPRESSION: Cephalic position. ?? heart rate 153 beats per ?? minutes. ??VALENTINA: 11.3 cm. ??Biophysical profile score 8/8. ? Impression dictated by: Duncan Jones M.D. ??07/12/2025 5:17 PM ? Dictation Location: RADIO-PC-29 ? Electronically authenticated by: [id number] ??Y ?? Date: 07/12/2025 ??17:17 ? Dictated By: ?Duncan Jones M.D. ? Signed By: ?12/01/25 1720 ? DD/ 16 ? TD/TT: ? Automatic Lump Making Machine Tender: Procedure Note Radiology, Radiologist, - 07/12/2025 [place] [address] Ultrasound Report Signed Patient: MEREDITH TEMPLETON SMR#: [id number] : 2000Acct:[id number] Age/Sex: 24 / FADM Date: 07/12/25 Loc: [facility] 250-[address]: Say Roy Ordering Physician: Say Roy Date of Service: 07/12/25 Procedure(s): US OB BPP w non-stress Accession Number(s): [id number] cc: [place] Pabon M.D.; Say Roy [place] [address] Patient Name: MEREDITH TEMPLETON MRN: [id number] date: 2000 Sex: F Assigned Patient Location: [facility] Current Patient Location: [facility] Accession/Order Number: [id number] Exam Date: 07/12/2025 16:32 Report Date: 07/12/2025 17:17 At the request of: SAY ROY Procedure: US OB BPP w non-stress Ultrasound biophysical profile INDICATION: Hypertension during COMPARISON: 07/09/2025 FINDINGS IMPRESSION: Cephalic position. heart rate 153 beatsper minutes. VALENTINA: 11.3 cm. Biophysical profile score 8/8. Impression dictated by: Duncan Jones M.D. 07/12/2025 5:17 PM Dictation Location: [place] [address] Electronically authenticated by: [id number] Y Date: 7:17 Dictated By: Duncan Jones M.D. Signed By:07/12/251719 DD/ 16 TD/TT: Automatic Lump Making Machine Tender: Authorizing ProviderResult TypeResult StatusSay Roy NPCLINISYNC IMAGING Final Result documented in this encounter Visit Diagnoses Not on filedocumented in this encounter Care Teams Team MemberRelationshipSpecialtyStart DateEnd Date [place] Pabon MD [address] [place] [address] PCP - GeneralFamily Medicine03/25/24documented as of this encounter
--- OUTSIDE RECORDS SUMMARY | 2025-07-15 16:05 | XMS_ITS | Clinical Summary ---
Author Organization [facility] Healthcare Address [address] [place] [address] Care Team Providers Care Non Profit Job Titles Name Role Phone Michelle Pabon MD Primary Care Provider [phone] Allergies No known active allergies Medications MedicationSigDispense QuantityRefillsLast FilledStart DateEnd DateStatus 27-1 MG tablet Take 1 tablet by mouth DailyActive labetalol (Normodyne) 200 MG tablet Take 1 tablet by mouth in the morning and 1 tablet before bedtime.06/28/2025 Active ondansetron ODT (Zofran-ODT) 4 MG disintegrating tablet Take 4 mg by mouth every 8 (eight) hours if needed for qjejmy1002/22/2025 06/28/2025Discontinued metoclopramide (Reglan) 10 MG tablet Indications:Nausea and vomiting during ([facility])Take 1 tablet [...] 30 mg by mouth DailyDiscontinued Encounters DateTypeDepartmentCare OdgyJnjsevfgxzo76/01/2025linisync Result Encounter [facility] External Department Unsolicited Patricia Roy NP 5Clinisync Result Encounter [facility] External Department Unsolicited Abad Canchola, 5Clinisync Result Encounter [facility] External Department Unsolicited Patricia Roy NP 07/06/2025 10:40 AM ESTRoutine [facility] [address] [place] [address] Abad Canchola, Third trimester ([facility]); 32 weeks gestation of ([facility])5Bamboo flowsheet [facility] [address] [facility] [place] [address] Abad Canchola, 06/28/2025 3:30 PM ESTRoutine [facility] [address] [place] [address] Patricia Roy NP Third trimester ([facility]); 31 weeks gestation of ([facility]); Hypertension during in third trimester, unspecified hypertension in type ([facility])5Clinisync Result Encounter [facility] External Department Unsolicited Patricia Roy NP 5Bamboo flowsheet [facility] [address] [place] [address] Patricia Roy NP 5Clinisync Result Encounter [facility] External Department Unsolicited Abad Canchola, 06/21/2025 3:40 PM ESTRoutine [facility] [address] [place] [address] Abad Canchola, 28 weeks gestation of ([facility]); Third trimester ([facility]); induced hypertension, antepartum ([facility])06/21/2025 3:00 PM EST Ancillary Procedure [facility] [address] [place] [address] size inconsistent with dates ([facility])06/08/2025 8:30 AM EDTRoutine [facility] [address] [place] [address] Shagufta Perkins PA size inconsistent with dates ([facility]) (Primary Dx); 28 weeks gestation of ([facility]); Second trimester ([facility])06/08/2025amboo flowsheet [facility] [address] [place] [address] Shagufta Perkins PA 05/12/2025 8:30 AM EDTRoutine [facility] [address] [place] [address] Patricia Roy, NELLY 24 weeks gestation of ([facility]); Second trimester ([facility]); Diabetes mellitus ilqrweddg70/01/2025amboo flowsheet [facility] [address] [place] [address] Patricia Ryo, NELLY 05/10/2025Telephone [facility] [address] [place] [address] Nighat Moyer, CORI 04/19/2025Results Follow-Up [facility] [address] [place] [address] Edda Whitney, DERMATOLOGIST MANAGING PARTNER IGP,APTIMA HPV,AGE GDLN04/19/2025Orders Only [facility] [address] [place] [address] Cris Gross MA 04/16/2025bstract [facility] [address] [place] [address] Nighat Moyer MA 04/16/2025Telephone [facility] [address] [place] [address] Nighat Moyer MA 04/15/2025 10:10 AM EDTRoutine [facility] [address] [place] [address] Abad Canchola DO Second trimester ([facility]); 21 weeks gestation of ([facility]); Nausea and vomiting during ([facility]); Vaginal discharge during , antepartum ([facility])5Clinisync Result Encounter [facility] External Department Unsolicited Abad Canchola DO 5Bamboo flowsheet [facility] [place] [address] Abad Canchola DO from Last 3 Months Family History Medical HistoryRelationNameCommentsHyperlipidemiaFatherHypertensionFather RelationNameStatusCommentsFatherAliveMotherAlive Social History Tobacco UseTypesPacks/DayYears UsedDateSmoking Tobacco: Never Tobacco Cessation:Counseling Given: Not Answered Alcohol UseStandard Drinks/WeekCommentsNever0 (1 standard drink = 0.6 oz pure alcohol)Estimated Date of IfkujjcpVzhthquoFxz12/15/2026ased on last menstrual period of 11/19/2024 (Approximate)Sex and Gender InformationValueDate RecordedSex Assigned at BirthNot on fileLegal YjzVwvtnc92/15/2023 10:09 PM EDT Gender IdentityNot on fileSexual OrientationNot on file Last Filed Vital Signs Vital SignReadingTime TakenCommentsBlood Owdgziqn352/8611 10:55 AM EST Pulse--Temperature--Respiratory Rate--Oxygen Saturation--Inhaled Oxygen Concentration--Tifonx02.4 kg (217 lb)07/06/2025 10:55 AM BBIRssqkq110.6 cm (5' 6 )09/24/2019 12:00 PM ESTBody Mass Index35.02009/24/2019 12:00 PM EST Plan of Treatment DateTypeDepartmentCare Team (Latest Contact Info)Skzrqgewpib40/09/2025 8:50 AM ESTRoutine [facility] [address] [place] [address] Patricia Roy, TITLE SUPERVISOR [address] [place] [address] Health MaintenanceDue DateLast DoneCommentsCOVID-19 Vaccine ( season) 502/12/2020, 08/19/2020Influenza Vaccine (#1)510/10/2021, 06/03/2020Pneumococcal Vaccine: Pediatrics (0 to 5 Years) and At-Risk Patients (6 to 64 Years)Aged OutNo longer eligible based on patient's age to complete this topic Procedures Procedure NamePriorityDate/TimeAssociated DiagnosisCommentsUS OB BPP W NON-ZNTKGO7707/12/2025 5:17 PM EST MHPT IENMWMLWYBSdborbv82/01/2025 4:29 PM EST CCF KDACHuxtbkd96/01/2025 4:29 PM EST SRMCOH PROTHROMBIN TIME INR W/O PZTVKekewsr87/01/2025 4:29 PM EST CCF JDKQbzhdmz21/01/2025 4:29 PM EST CCF ZAURmjeeyt68/01/2025 4:29 PM EST ALL URIC MNHUZvjtgca80/01/2025 4:29 PM EST TBH VXGLSTOHZLVjyxxhw74/01/2025 4:29 PM EST ALL PXQXaispie45/01/2025 4:29 PM EST ALL CBC WITH AUTO GQYEUtdaleg34/01/2025 4:29 PM EST TB[facility] URINE T PROTEIN CREAT QQQNILkejban05/01/2025 4:25 PM EST US OB BPP W NON-AJDIKV5607/09/2025 3:47 PM EST POCT URINALYSIS XOOAUMUYIfuhnhk24/25/2025 11:00 AM EST Third trimester ([facility]) US OB BPP W NON-DWTPIJ0006/28/2025 5:27 PM EST POCT URINALYSIS YXVVPGSRFgbjwap40/17/2025 4:05 PM EST Third trimester ([facility]) ALL MXOYuinbxx23/12/2025 4:19 PM EST CCF KMGEbddtkq96/12/2025 4:19 PM EST ALL URIC KJLYBkovivw53/12/2025 4:19 PM EST TBH VVBWRVLXWRPnjvjmd88/12/2025 4:19 PM EST ALL RKTXgdkalj25/12/2025 4:19 PM EST ALL CBC WITH AUTO XWVXQtsxkfh69/12/2025 4:19 PM EST CCF NYLCOopnoyu17/12/2025 4:19 PM EST SRMCOH PROTHROMBIN TIME INR W/O WOSEMnugcmq50/12/2025 4:19 PM EST TBH URINE T PROTEIN CREAT LCAAFLntgjel97/12/2025 4:10 PM EST TBH TOTAL PROTEIN 24 HOUR XOOXKMdgmcmu37/12/2025 7:45 AM EST POCT URINALYSIS MROYSJAKPfrwymh50/10/2025 3:47 PM EST 28 weeks gestation of ([facility]) Third trimester ([facility]) US OB FOLLOW UP TRANSABDOMINAL AANEVYPJRlcepai52/10/2025 3:24 PM EST size inconsistent with dates ([facility]) POCT URINALYSIS XFFOYDEELwbojxj96/28/2025 8:51 AM EDT 28 weeks gestation of ([facility]) Second trimester ([facility]) POCT URINALYSIS XFXXZIGOYmqzcuq69/01/2025 8:42 AM EDT 24 weeks gestation of ([facility]) RECURRENT VAGINITIS (HTRX)Bjcbssn4004/15/2025 11:40 AM EDT IGP,APTIMA HPV,AGE CKAOQtpeyal09/04/2025 10:42 AM EDT PAP IBXSHXzhqwin44/04/2025 12:00 AM EDTfrom Last 3 Months Results * US OB BPP W NON-STRESS (07/12/2025 5:17 PM EST) Only the most recent of3 resultswithin the time period is included. Anatomical RegionLateralityModalityOtherSpecimen (Source)Anatomical Location / LateralityCollection Method / VolumeCollection TimeReceived Time07/12/2025 5:17 PM EST Narrative 07/12/2025 5:20 PM EST [facility] ?[address] ? [place] [address] ? Ultrasound Report ? Signed ? Patient: YENIFER TEMPLETON ?MR#: [id number] ?? : 2000 ?Acct:[id number] ?? Age/Sex: 24 / F ?ADM Date: 07/12/25 ?? Loc: [facility] ??250-1 ? Attending Dr: Patricia Roy ? Ordering Physician: Patricia Roy ?? Date of Service: 07/12/25 ?? Procedure(s): US OB BPP w non-stress ?? Accession Number(s): [id number] ? cc: Michelle Pabon M.D.; Patricia Roy ? [facility] ? [address] ? [place] [address] ? Patient Name: ?? YENIFER TEMPLETON ? MRN: [facility]:[id number] ? date: 2000 ?Sex: F ?? Assigned Patient Location: [facility] ?? Current Patient Location: [facility] ?? Accession/Order Number: [id number] ?? Exam Date: 07/12/2025 ??16:32 ?Report Date: 07/12/2025 ??17:17 ? At the request of: ?? PATRICIA [...] Dictation Location: RADIO-PC-29 ? Electronically authenticated by: [id number] ??Y ?? Date: 07/12/2025 ??17:17 ? Dictated By: ?Duncan Jones M.D. ? Signed By: ?07/12/251719 ? DD/ 1717 ? TD/TT: ? Can Piler: Procedure Note Radiology, Radiologist, MD - 07/12/2025 [place] [address] Ultrasound Report Signed Patient: YENIFER TEMPLETON SMR#: [id number] : 2000Acct:[id number] Age/Sex: 24 / FADM Date: 07/12/25 Loc: [facility] 250-[address]: Patricia Roy Ordering Physician: Patricia Roy Date of Service: 07/12/25 Procedure(s): US OB BPP w non-stress Accession Number(s): [id number] cc: Michelle Pabon M.D.; Patricia Roy The [address] [address] Patient Name: YENIFER TEMPLETON MRN: [facility]:[id number] date: 2000 Sex: F Assigned Patient Location: [facility] Current Patient Location: [facility] Accession/Order Number: [id number] Exam Date: 07/12/2025 16:32 Report Date: 07/12/2025 17:17 At the request of: PATRICIA ROY Procedure: US OB BPP w non-stress Ultrasound biophysical profile INDICATION: Hypertension during COMPARISON: 07/09/2025 FINDINGS IMPRESSION: Cephalic position. heart rate 153 beatsper minutes. VALENTINA: 11.3 cm. Biophysical profile score 8/8. Impression dictated by: Duncan Jones M.D. 07/12/2025 5:17 PM Dictation Location: [place] [address] Electronically authenticated by: [id number] Y Date: 7:17 Dictated By: Duncan Jones M.D. Signed By:07/12/251719 DD/ 16 TD/TT: Can Piler: Authorizing ProviderResult TypeResult StatusPatricia Roy NPCLINISYNC IMAGING Final Result * TBH CREATININE (07/12/2025 4:29 PM EST) Only the most recent of2 resultswithin the time period is included. ComponentValueRef RangeTest MethodAnalysis TimePerformed AtPathologist Signature CREATININE0.560.55 - 1.02 mg/dLTBHTBH EGFR-AF FAROESE>60>=60 mL/min/1.73m 2TBH TBH EGFR-NON AF FAROESE>60>=60 mL/min/1.73m 2TBHSpecimen (Source)Anatomical Location / LateralityCollection Method / VolumeCollection TimeReceived Time 07/12/2025 4:29 PM EST07/12/2025 4:32 PM EST Narrative [facility]IN[facility]NC - 07/12/2025 4:58 PM EST Authorizing ProviderResult TypeResult StatusCorey Jesika DOCLINISYNCFinal Result Performing OrganizationAddressCity/State/ZIP CodePhone Number CLINISYNC [facility] * SRMCOH PROTHROMBIN TIME INR W/O COUM (07/12/2025 4:29 PM EST) Only the most recent of2 resultswithin the time period is included. ComponentValueRef RangeTest MethodAnalysis TimePerformed AtPathologist Signature PROTHROMBIN TIME9.99.0 - 11.6 secTBHTBH INR0.94TBHComment: DESIRED INR: 2.0-3.0 CONDITIONS NOT LISTED BELOW 2.5-3.5 FOR PROSTHETIC HEART VALVE REPLACEMENT 2.5-3.5 RECURRENT THROMBOSIS Specimen (Source)Anatomical Location / LateralityCollection Method / Volume Collection TimeReceived Time07/12/2025 4:29 PM EST07/12/2025 4:32 PM EST Narrative [facility] - 07/12/2025 5:20 PM EST Authorizing ProviderResult TypeResult StatusCorey Jesika DOCLINISYNCFinal Result Performing OrganizationAddressCity/State/ZIP CodePhone Number CLINIS[facility]NC TB * (ABNORMAL) MHPT FIBRINOGEN (07/12/2025 4:29 PM EST)ComponentValueRef RangeTest MethodAnalysis TimePerformed AtPathologist EbptqglppNKMHEMAYSH364(H)200 - 400 mg/dLTBHSpecimen (Source)Anatomical Location / LateralityCollection Method / VolumeCollection TimeReceived Time07/12/2025 4:29 PM EST07/12/2025 4:32 PM EST Narrative [facility] - 07/12/2025 5:20 PM EST Authorizing ProviderResult TypeResult StatusCorey Jesika DOCLINISYNCFinal Result Performing OrganizationAddressCity/State/ZIP CodePhone Number CLINIS[facility]NC [facility] * (ABNORMAL) CCF AST (07/12/2025 4:29 PM EST) Only the most recent of2 resultswithin the time period is included. ComponentValueRef RangeTest MethodAnalysis TimePerformed AtPathologist Signature ASPARTATE AMINO ETNQPUZZFYG00(L)15 - 37 U/LTBHSpecimen (Source)Anatomical Location / LateralityCollection Method / VolumeCollection TimeReceived Time 07/12/2025 4:29 PM EST07/12/2025 4:32 PM EST Narrative [facility]NC - 07/12/2025 4:58 PM EST Authorizing ProviderResult TypeResult StatusCorey Jesika DOCLINISYNCFinal Result Performing OrganizationAddressCity/State/ZIP CodePhone Number CLINISYNC TB * CCF APTT (07/12/2025 4:29 PM EST) Only the most recent of2 resultswithin the time period is included. ComponentValueRef RangeTest MethodAnalysis TimePerformed AtPathologist Signature PARTIAL THROMBOPLASTIN TIME26.622.3 - 36.2 secTBHSpecimen (Source)Anatomical Location / LateralityCollection Method / VolumeCollection TimeReceived Time 07/12/2025 4:29 PM EST07/12/2025 4:32 PM EST Narrative CLINISYNC - 07/12/2025 5:20 PM EST Authorizing ProviderResult TypeResult StatusCorey Jesika DOCLINISYNCFinal Result Performing OrganizationAddressCity/State/ZIP CodePhone Number CLINISYNC [facility] * CCF ALT (07/12/2025 4:29 PM EST)ComponentValueRef RangeTest MethodAnalysis TimePerformed AtPathologist SignatureALANINE TVKCVXWMNQOQFPIA4238 - 59 U/LTBH Specimen (Source)Anatomical Location / LateralityCollection Method / Volume Collection TimeReceived Time07/12/2025 4:29 PM EST07/12/2025 4:32 PM EST Narrative CLINISYNC - 07/12/2025 4:58 PM EST Authorizing ProviderResult TypeResult StatusCorey Jesika DOCLINISYNCFinal Result Performing OrganizationAddressCity/State/ZIP CodePhone Number [facility] TB * ALL URIC ACID (07/12/2025 4:29 PM EST) Only the most recent of2 resultswithin the time period is included. ComponentValueRef RangeTest MethodAnalysis TimePerformed AtPathologist Signature URIC ACID4.42.6 - 6.0 mg/dLTBHSpecimen (Source)Anatomical Location / Laterality Collection Method / VolumeCollection TimeReceived Time07/12/2025 4:29 PM EST 07/12/2025 4:32 PM EST Narrative CLINISYNC - 07/12/2025 4:58 PM EST Authorizing ProviderResult TypeResult StatusCorey Jesika DOCLINISYNCFinal Result Performing OrganizationAddressCity/State/ZIP CodePhone Number CLINISYNC TB * (ABNORMAL) ALL CBC WITH AUTO DIFF (07/12/2025 4:29 PM EST) Only the most recent of2 resultswithin the time period is included. ComponentValueRef RangeTest MethodAnalysis TimePerformed AtPathologist Signature TBH WBC8.94.0 - 11.0 10 3/uLTBHTBH RBC4.484.20 - 5.40 10 6/uLTBHTBH HGB13.612.0 - 16.0 g/dLTBHTBH HCT38.836.0 - 48.0 %TBHTBH MCV86.681.0 - 99.0 fLTBHTBH MCH30.4 26.7 - 34.0 pgTBHTBH MCHC35.129.9 - 35.2 g/dLTBHTBH RDW12.611.0 - 15.0 %TBHTBH CDB885868 - 450 10 3/uLTBHTBH MPV10.19.5 - 13.5 fLTBHNEUTROPHILS PERCENT AUTO 70.243.0 - 75.0 %TBHLYMPHOCYTES PERCENT AUTO19.1(L)20.5 - 60.0 %TBHMONOCYTES PERCENT AUTO7.41.7 - 12.0 %TBHTBH EO %2.60.9 - 7.0 %TBHBASOPHILS PERCENT AUTO0.4 0.2 - 2.0 %TBHIMMATURE GRANULOCYTES PCT AUTO0.30.0 - 0.5 %TBHNEUTROPHILS ABSOLUTE AUTO6.31.4 - 6.5 10 3/uLTBHLYMPHOCYTES ABSOLUTE AUTO1.71.2 - 3.8 10 3/uLTBHMONOCYTES ABSOLUTE AUTO0.70.3 - 0.8 10 3/uLTBHTBH EO #0.20.0 - 0.7 10 3/uLTBHBASOPHILS ABSOLUTE AUTO0.00.0 - 0.1 10 3/uLTBHIMMATURE GRANULOCYTES ABS AUTO0.030.00 - 0.03 10 3/uLTBHSpecimen (Source)Anatomical Location / Laterality Collection Method / VolumeCollection TimeReceived Time07/12/2025 4:29 PM EST 07/12/2025 4:32 PM EST Narrative CLINISYNC - 07/12/2025 4:43 PM EST Authorizing ProviderResult TypeResult StatusCorey Jesika DOCLINISYNCFinal Result Performing OrganizationAddressCity/State/ZIP CodePhone Number CLINISYNC [facility] * (ABNORMAL) ALL BUN (07/12/2025 4:29 PM EST) Only the most recent of2 resultswithin the time period is included. ComponentValueRef RangeTest MethodAnalysis TimePerformed AtPathologist Signature BLOOD UREA NITROGEN6.0(L)7.0 - 18.0 mg/dLTBHSpecimen (Source)Anatomical Location / LateralityCollection Method / VolumeCollection TimeReceived Time07/12/2025 4:29 PM EST07/12/2025 4:32 PM EST Narrative CLIN[facility]YNC - 07/12/2025 4:58 PM EST Authorizing ProviderResult TypeResult StatusCorey Jesika DOCLINISYNCFinal Result Performing OrganizationAddressCity/State/ZIP CodePhone Number [facility] * (ABNORMAL) TBH URINE T PROTEIN CREAT RATIO (07/12/2025 4:25 PM EST) Only the most recent of2 resultswithin the time period is included. ComponentValueRef RangeTest MethodAnalysis TimePerformed AtPathologist Signature TOTAL PROTEIN URINE WWSGYZ95.7(H)<=11.9 mg/dLTBHCREATININE URINE VJJNIO647.47 20.00 - 300.00 mg/dLTBHPROTEIN CREATININE RATIO URINE0.14TBHSpecimen (Source) Anatomical Location / LateralityCollection Method / VolumeCollection Time Received Time07/12/2025 4:25 PM EST07/12/2025 4:32 PM EST Narrative [facility]IN[facility]NC - 07/12/2025 4:47 PM EST Authorizing ProviderResult TypeResult StatusCorey Jesika DOCLINISYNCFinal Result Performing OrganizationAddressCity/State/ZIP CodePhone Number [facility] * POCT urinalysis dipstick manually resulted (07/06/2025 [...] Location / LateralityCollection Method / VolumeCollection TimeReceived DqyvBtenr98/25/2025 11:00 AM EST Narrative Authorizing ProviderResult TypeResult StatusCorejosé Canchola DOPOINT OF CARE TEST ENTER/EDIT ORDERABLESFinal Result * ALL LDH (06/23/2025 4:19 PM EST)ComponentValueRef RangeTest MethodAnalysis TimePerformed AtPathologist SignatureLACTATE PGPOGCFWIPFKE14733 - 234 U/LTBH Specimen (Source)Anatomical Location / LateralityCollection Method / Volume Collection TimeReceived Time06/23/2025 4:19 PM EST06/23/2025 4:20 PM EST Narrative CLINISYNC - 06/23/2025 5:17 PM EST Authorizing ProviderResult TypeResult StatusCorejosé Canchola DOCLINISYNCFinal Result Performing OrganizationAddressCity/State/ZIP CodePhone Number CLINISYNC [facility]H * (ABNORMAL) TBH TOTAL PROTEIN 24 HOUR URINE (06/23/2025 7:45 AM EST)Component ValueRef RangeTest MethodAnalysis TimePerformed AtPathologist SignatureTOTAL PROTEIN URINE VSMYQB37.2(H)<=11.9 mg/dLTBHTOTAL VOLUME 24 HOUR URINE1,780 mL/24hrTBHTBH TOTAL PROTEIN 24 HOUR IXQCR441.2(H)<=149.1 mg/24hrTBHSpecimen (Source)Anatomical Location / LateralityCollection Method / VolumeCollection TimeReceived Time06/23/2025 7:45 AM EST06/23/2025 4:21 PM EST Narrative [facility]IN[facility]NC - 06/24/2025 12:46 PM EST Authorizing ProviderResult TypeResult StatusCorejosé Canchola DOCLINISYNCFinal Result Performing OrganizationAddressCity/State/ZIP CodePhone Number CLINISYNC [...] EDT)ComponentValue Ref RangeTest MethodAnalysis TimePerformed AtPathologist SignatureATOPOBIUM IZRJNYI019. - ppm04/16/2025 6:40 AM EDT[facility] ATOPOBIUM VAGINAENot Laxnexlr83. - ppm04/16/2025 6:40 AM EDT [facility] 2,3 (BACTERIAL VAGINOSIS ASSOCIATED BACTERIA 2, 3); MOBILUNCUS TOW034.96 - ppm04/16/2025 6:40 AM EDTHealthTrackRx at [facility] 2,3 (BACTERIAL VAGINOSIS ASSOCIATED BACTERIA 2, 3); MOBILUNCUS SPP Not Llkbjyko28.96 - ppm04/16/2025 6:40 AM EDTHealth[facility]Rx [facility] ROSALBA ALBICANS, PARAPSILOSIS, OKEDAOKEMS84.886(A)23.000 - 30.347 ppm 04/16/2025 6:40 AM EDTHealthTrackRx at LabPortCANDIDA ALBICANS, PARAPSILOSIS, TROPICALISDetected(A)23.000 - 30.347 ppm04/16/2025 6:40 AM EDTHealthTrackRx at LabPortCANDIDA TYPWRWSU776.000 - 31.618 ppm04/16/2025 6:40 AM EDTHealthTrackRx at LabPortCANDIDA GLABRATANot Ximwylmv35.000 - 31.618 ppm04/16/2025 6:40 AM EDTHealthTrackRx at LabPortCANDIDA GBKYJF875.000 - 30.873 ppm04/16/2025 6:40 AM EDTHealthTrackRx at LabPortCANDIDA KRUSEINot Dikwtygz52.000 - 30.873 ppm 04/16/2025 6:40 AM EDTHealthTrackRx at LabPortCHLAMYDIA HIQDNZZVJYM723.000 - 31.586 ppm04/16/2025 6:40 AM EDTHealthTrackRx at LabPortCHLAMYDIA TRACHOMATIS Not Lzfcpoux26.000 - 31.586 ppm04/16/2025 6:40 AM EDTHealthTrackRx at [facility] GARDNERELLA HNUIRENCO53.384(A)19.961 - 24.689 ppm04/16/2025 6:40 AM EDT [facility]PortGARDNERELLA VAGINALISDetected(A)19.961 - 24.689 ppm 04/16/2025 6:40 AM EDTHealthTrackRx at LabPortMEGASPHAERA (TYPES 1, 2)019.961 - 24.689 ppm04/16/2025 6:40 AM EDTHealthTrackRx at LabPortMEGASPHAERA (TYPES 1, 2)Not Acopkitu93.961 - 24.689 ppm04/16/2025 6:40 AM EDTHealthTrackRx at LabPortNEISSERIA YRLGSJGBABL085.000 - 32.587 ppm04/16/2025 6:40 AM EDT [facility] LabPortNEISSERIA GONORRHOEAENot Tsvfowhp10.000 - 32.587 ppm 04/16/2025 6:40 AM EDTHealthTrackRx at LabPortTRICHOMONAS HUQDVMKJB335.000 - 31.995 ppm04/16/2025 6:40 AM EDTHealthTrackRx at LabPortTRICHOMONAS VAGINALIS Not Kbeebbnv23.000 - 31.995 ppm04/16/2025 6:40 AM EDTHealth[facility]Rx at [facility] MYCOPLASMA OLIOBVKYTZ302.961 - 24.689 ppm04/16/2025 6:40 AM EDTHealthTrackRx at LabDaviess [facility] HospitalMYCOPLASMA GENITALIUMNot Ohqfikdl55.961 - 24.689 ppm04/16/2025 6:40 AM EDTHealthTrackRx at LabPortSpecimen (Source)Anatomical Location / LateralityCollection Method / VolumeCollection TimeReceived TimeTissue 04/15/2025 11:40 AM EDT04/16/2025 1:52 AM EDT Narrative Authorizing ProviderResult TypeResult StatusCorey Jesika DOLAB BLOOD ORDERABLES Final ResultPerforming OrganizationAddressCity/State/ZIP CodePhone Number [facility] [address] [place] [address] * IGP,APTIMA HPV,AGE GDLN (04/15/2025 10:42 AM [...] at: 01 =G ?[facility] ?? [address] [place] ??[phone] ?? Beverly Nguyen MD, IGP, RFX APTIMA HPV ASCUNote.TBHComment: ?? TESTS ? RESULT ??FLAG ??UNITS ?REF RANGE ??LAB DIAGNOSIS: ?02 ?? NEGATIVE FOR INTRAEPITHELIAL LESION OR MALIGNANCY. ?? FUNGAL ORGANISMS MORPHOLOGICALLY CONSISTENT WITH ROSALBA SPECIES ARE ?? PRESENT. Specimen adequacy: ?02 ?? Satisfactory for evaluation. ??Endocervical and/or squamous metaplastic ?? cells (endocervical component) are present. Performed by: ? 02 ?? Sonia Beckham, Music Composer ([facility]) . ? 02 Note: ? Note ?02 [...] High,A-Abnormal,AA-Critical Abnormal Performed at: 02 WB ?[facility] ?? [address] [place], [place] ??[phone] ?? Beverly Nguyen MD, Performed at: ??=G - [facility] [address], [place] ??[id number] Director Of Payroll: Beverly Nguyen MD, Phone: ??[phone] Performed at: ??WB - [facility] [address] ??[id number] Director Of Payroll: Beverly Nguyen MD, Phone: ??[phone] Specimen (Source)Anatomical Location / LateralityCollection Method / Volume Collection TimeReceived Time04/15/2025 10:42 AM EDT04/15/2025 2:49 PM EDT Narrative CLINISY[facility] - 04/19/2025 9:09 AM EDT [facility] Authorizing ProviderResult TypeResult StatusCorey Jesika DOLAB BLOOD ORDERABLES Final ResultPerforming OrganizationAddressCity/State/ZIP CodePhone Number [facility] * Pap Smear (04/15/2025 12:00 AM EDT)Specimen (Source)Anatomical Location / LateralityCollection Method / VolumeCollection TimeReceived TimeSwabCervical swab / Unknown Narrative Authorizing ProviderResult TypeResult StatusCorey Jesika DOLAB CYTOLOGY ORDERABLESFinal ResultPerforming OrganizationAddressCity/State/ZIP CodePhone Number EXTERNAL LAB from Last 3 Months Insurance * Guarantor: Yenifer Templeton TypeRelation to PatientDate of BirthPhone Billing AddressPersonal/MblwcmAprk50/09/2001 [address] [place] [address] * Guarantor: Yenifer Templeton TypeRelation to PatientDate of BirthPhone Billing AddressPersonal/AqdbvwYwqj61/09/2001 [address] [place] [address] Care Teams Team MemberRelationshipSpecialtyStart DateEnd Date Michelle Pabon MD [address] [place] [phone] PCP - GeneralFamily Medicine03/25/24
--- OUTSIDE RECORDS SUMMARY | 2025-07-15 16:05 | XMS_ITS | Encounter Summary ---
Author Organization [facility] Address [address] [place] [address] Care Team Providers Care Insurance Sales Professional Name Role Phone Michelle Pabon MD Primary Care Provider [phone] Encounter Details DateTypeDepartmentCare Team (Latest Contact Info)Uayutrszhwu86/01/2025linisync Result Encounter [facility] Unsolicited Abad Canchola DO [address] [place] [address] Social History Tobacco UseTypesPacks/DayYears UsedDateSmoking Tobacco: NeverAlcohol UseStandard Drinks/WeekCommentsNever0 (1 standard drink = 0.6 oz pure alcohol) Estimated Date of AxabhrmrZtuliowcGlm61/15/2026ased on last menstrual period of 11/19/2024 (Approximate)Sex and Gender InformationValueDate RecordedSex Assigned at BirthNot on fileLegal XwwPbclua45/15/2023 10:09 PM EDTGender IdentityNot on fileSexual OrientationNot on filedocumented as of this encounter Plan of Treatment DateTypeDepartmentCare Team (Latest Contact Info)Czafwkxjrnu85/09/2025 8:50 AM ESTRoutine [facility] [address] [place] [address] Patricia Roy, NELLY [address] [place] [address] documented as of this encounter Procedures Procedure NamePriorityDate/TimeAssociated DiagnosisCommentsTBH CREATININERoutine 07/12/2025 4:29 PM EST SRMCOH PROTHROMBIN TIME INR W/O MXJDXpajdxh19/01/2025 4:29 PM EST MHPT IOFALJLOYLAnrvbbs63/01/2025 4:29 PM EST CCF OOXEjwoxbi46/01/2025 4:29 PM EST CCF ABQFFosdhni63/01/2025 4:29 PM EST CCF DRJLovbeac61/01/2025 4:29 PM EST ALL URIC WNSKFemgcjt82/01/2025 4:29 PM EST ALL CBC WITH AUTO JJPZDyuykpt56/01/2025 4:29 PM EST ALL RCIKkyygtc36/01/2025 4:29 PM EST TBH URINE T PROTEIN CREAT OPDEIDhrxflt24/01/2025 4:25 PM EST documented in this encounter Results * (ABNORMAL) MHPT FIBRINOGEN (07/12/2025 4:29 PM EST)ComponentValueRef RangeTest MethodAnalysis TimePerformed AtPathologist GvyynunvsEIBSAQVWGW607(H)200 - 400 mg/dLTBHSpecimen (Source)Anatomical Location / LateralityCollection Method / VolumeCollection TimeReceived Time07/12/2025 4:29 PM EST07/12/2025 4:32 PM EST Narrative [facility]YNC - 07/12/2025 5:20 PM EST Authorizing ProviderResult TypeResult StatusCorey Jesika DOCLINISYNCFinal Result Performing OrganizationAddressCity/State/ZIP CodePhone Number CLIN[facility]NC [facility] * [facility] APTT (07/12/2025 4:29 PM EST)ComponentValueRef RangeTest MethodAnalysis TimePerformed AtPathologist SignaturePARTIAL THROMBOPLASTIN TIME26.622.3 - 36.2 secTBHSpecimen (Source)Anatomical Location / LateralityCollection Method / VolumeCollection TimeReceived Time07/12/2025 4:29 PM EST07/12/2025 4:32 PM EST Narrative CLINISYNC - 07/12/2025 5:20 PM EST Authorizing ProviderResult TypeResult StatusCorey Jesika DOCLINISYNCFinal Result Performing OrganizationAddressCity/State/ZIP CodePhone Number [facility] * SRMCOH PROTHROMBIN TIME INR W/O COUM (07/12/2025 4:29 PM EST)ComponentValueRef RangeTest MethodAnalysis TimePerformed AtPathologist SignaturePROTHROMBIN TIME 9.99.0 - 11.6 secTBHTBH INR0.94TBHComment: DESIRED INR: 2.0-3.0 CONDITIONS NOT LISTED BELOW 2.5-3.5 FOR PROSTHETIC HEART VALVE REPLACEMENT 2.5-3.5 RECURRENT THROMBOSIS Specimen (Source)Anatomical Location / LateralityCollection Method / Volume Collection TimeReceived Time07/12/2025 4:29 PM EST07/12/2025 4:32 PM EST Narrative CLINISYNC - 07/12/2025 5:20 PM EST Authorizing ProviderResult TypeResult StatusCorey Jesika DOCLINISYNCFinal Result Performing OrganizationAddressCity/State/ZIP CodePhone Number [facility] * [facility] ALT (07/12/2025 4:29 PM EST)ComponentValueRef RangeTest MethodAnalysis TimePerformed AtPathologist SignatureALANINE TXJPSRJNURADLWIB4997 - 59 U/LTBH Specimen (Source)Anatomical Location / LateralityCollection Method / Volume Collection TimeReceived Time07/12/2025 4:29 PM EST07/12/2025 4:32 PM EST Narrative CLINISYNC - 07/12/2025 4:58 PM EST Authorizing ProviderResult TypeResult StatusCorey Jesika DOCLINISYNCFinal Result Performing OrganizationAddressCity/State/ZIP CodePhone Number [facility] * (ABNORMAL) C[facility] AST (07/12/2025 4:29 PM EST)ComponentValueRef RangeTest Method Analysis TimePerformed AtPathologist SignatureASPARTATE AMINO VJEPMVMGHHG61(L) 15 - 37 U/LTBHSpecimen (Source)Anatomical Location / LateralityCollection Method / VolumeCollection TimeReceived Time07/12/2025 4:29 PM EST07/12/2025 4:32 PM EST Narrative CLINISYNC - 07/12/2025 4:58 PM EST Authorizing ProviderResult TypeResult StatusCorey Jesika DOCLINISYNCFinal Result Performing OrganizationAddressCity/State/ZIP CodePhone Number [facility] * ALL URIC ACID (07/12/2025 4:29 PM EST)ComponentValueRef RangeTest Method Analysis TimePerformed AtPathologist SignatureURIC ACID4.42.6 - 6.0 mg/dLTBH Specimen (Source)Anatomical Location / LateralityCollection Method / Volume Collection TimeReceived Time07/12/2025 4:29 PM EST07/12/2025 4:32 PM EST Narrative CLINISYNC - 07/12/2025 4:58 PM EST Authorizing ProviderResult TypeResult StatusCorey Jesika DOCLINISYNCFinal Result Performing OrganizationAddressCity/State/ZIP CodePhone Number [facility] * TBH CREATININE (07/12/2025 4:29 PM EST)ComponentValueRef RangeTest Method Analysis TimePerformed AtPathologist SignatureCREATININE0.560.55 - 1.02 mg/dL TBHTBH EGFR-AF PERUVIAN>60>=60 mL/min/1.73m 2TBHTBH EGFR-NON AF PERUVIAN>60 >=60 mL/min/1.73m 2TBHSpecimen (Source)Anatomical Location / Laterality Collection Method / VolumeCollection TimeReceived Time07/12/2025 4:29 PM EST 07/12/2025 4:32 PM EST Narrative CLINISYNC - 07/12/2025 4:58 PM EST Authorizing ProviderResult TypeResult StatusCorey Jesika DOCLINISYNCFinal Result Performing OrganizationAddressCity/State/ZIP CodePhone Number [facility] * (ABNORMAL) ALL BUN (07/12/2025 4:29 PM EST)ComponentValueRef RangeTest Method Analysis TimePerformed AtPathologist SignatureBLOOD UREA NITROGEN6.0(L)7.0 - 18.0 mg/dLTBHSpecimen (Source)Anatomical Location / LateralityCollection Method / VolumeCollection TimeReceived Time07/12/2025 4:29 PM EST07/12/2025 4:32 PM EST Narrative CLINISYNC - 07/12/2025 4:58 PM EST Authorizing ProviderResult TypeResult StatusCorey Jesika DOCLINISYNCFinal Result Performing OrganizationAddressCity/State/ZIP CodePhone Number [facility]NC [facility] * (ABNORMAL) ALL CBC WITH AUTO DIFF (07/12/2025 4:29 PM EST)ComponentValueRef RangeTest MethodAnalysis TimePerformed AtPathologist SignatureTBH WBC8.94.0 - 11.0 10 3/uLTBHTBH RBC4.484.20 - 5.40 10 6/uLTBHTBH HGB13.612.0 - 16.0 g/dLTBH TBH HCT38.836.0 - 48.0 %TBHTBH MCV86.681.0 - 99.0 fLTBHTBH MCH30.426.7 - 34.0 pgTBHTBH MCHC35.129.9 - 35.2 g/dLTBHTBH RDW12.611.0 - 15.0 %TBHTBH BPI287025 - 450 10 3/uLTBHTBH MPV10.19.5 - 13.5 fLTBHNEUTROPHILS PERCENT AUTO70.243.0 - 75.0 %TBHLYMPHOCYTES PERCENT AUTO19.1(L)20.5 - 60.0 %TBHMONOCYTES PERCENT AUTO 7.41.7 - 12.0 %TBHTBH EO %2.60.9 - 7.0 %TBHBASOPHILS PERCENT AUTO0.40.2 - 2.0 %TBHIMMATURE GRANULOCYTES PCT AUTO0.30.0 - 0.5 %TBHNEUTROPHILS ABSOLUTE AUTO 6.31.4 - 6.5 10 3/uLTBHLYMPHOCYTES ABSOLUTE AUTO1.71.2 - 3.8 10 3/uLTBH MONOCYTES ABSOLUTE AUTO0.70.3 - 0.8 10 3/uLTBHTBH EO #0.20.0 - 0.7 10 3/uLTBH BASOPHILS ABSOLUTE AUTO0.00.0 - 0.1 10 3/uLTBHIMMATURE GRANULOCYTES ABS AUTO 0.030.00 - 0.03 10 3/uLTBHSpecimen (Source)Anatomical Location / Laterality Collection Method / VolumeCollection TimeReceived Time07/12/2025 4:29 PM EST 07/12/2025 4:32 PM EST Narrative CLINISYNC - 07/12/2025 4:43 PM EST Authorizing ProviderResult TypeResult StatusCorey Jesika DOCLINISYNCFinal Result Performing OrganizationAddressCity/State/ZIP CodePhone Number [facility] * (ABNORMAL) TBH URINE T PROTEIN CREAT RATIO (07/12/2025 4:25 PM EST)Component ValueRef RangeTest MethodAnalysis TimePerformed AtPathologist SignatureTOTAL PROTEIN URINE HLHBGI10.7(H)<=11.9 mg/dLTBHCREATININE URINE PAWYMA171.4720.00 - 300.00 mg/dLTBHPROTEIN CREATININE RATIO URINE0.14TBHSpecimen (Source) Anatomical Location / LateralityCollection Method / VolumeCollection Time Received Time07/12/2025 4:25 PM EST07/12/2025 4:32 PM EST Narrative CLINISYNC - 07/12/2025 4:47 PM EST Authorizing ProviderResult TypeResult StatusCorey Jesika DOCLINISYNCFinal Result Performing OrganizationAddressCity/State/ZIP CodePhone Number [facility] documented in this encounter Visit Diagnoses Not on filedocumented in this encounter Care Teams Team MemberRelationshipSpecialtyStart DateEnd Date Michelle Pabon MD [address] [place] [phone] PCP - GeneralFamily Medicine03/25/24documented as of this encounter
[2025-07-15 16:09] VITALS: BP 141/94; PULSE 98
--- OUTSIDE RECORDS SUMMARY | 2025-07-15 16:18 | XMS_ITS | CCD ---
Author Organization [facility] Care Team Providers Care Medical Technologist Chemistry Name Role Phone JESIKA, DR CALVIN Primary [...] Unavailable JESIKA, DR CALVIN Attending Unavailable Malick EMT P - HOSPICE RN, Annel Concha Primary Care Provider [phone] ANNEL YUEN Referring Unavailable MALICK, ANNEL Concha Primary Care Unavailable Michelle Pabon MD Primary Care Provider [phone] Malick EMT P-SENIOR INTERNET SALES CONSULTANT, Annel Heath Primary Care Provider Unavailable Primary Care Provider Michelle Hernandez MD Primary Care Provider Michelle Pabon MD Primary Care Provider [phone] Malick EMT P - HOSPICE RN, Annel Concha Primary Care Provider RAFAEL [...] oral tablet (1 source)Penicillin-class AntibacterialStart: 08-02-2023 End: 83-87-7201wgpd 1 tablet by mouth once in the morningamoxicillin-pot clavulanate (AUGMENTIN) 875-125 mg per tablet Take 1 tablet by mouth in the morningand 1 tablet before bedtime. Do all this for 7 days. 14 tablet 0 08/02/2023 08/09/2023 Activedocusate sodium 100 mg oral capsule (4 sources)Start: 01-13-2025 End: 38-27-3926hszs 1 capsule by mouth in the morningdocusate sodium (Colace) 100 MG capsule Indications: Constipation, unspecified constipation type Take 1 capsule (100 mg) by mouth in the morning and 1 capsule (100 mg) before bedtime. Do all this for10 days. 20 capsule 01/13/2025 01/23/2025 Activeloratadine 10 mg oral tablet (6 sources) End: 63-77-1690dqds 1 tablet by mouth once dailyloratadine (Claritin) 10 MG tablet Take 10 mg by mouth Daily 01/13/2025 Discontinuedlosartan potassium 25 mg oral tablet (5 sources)Angiotensin 2 Receptor BlockerStart: 02-28-2024 End: 74-49-8150lzxp 25 mg by mouth once dailyLosartan Active 25 MG PO Daily February 28, 2024 12:00ammetFORMIN hydrochloride 500 mg oral tablet (6 sources)BiguanideStart: 12-01-2024 End: 65-46-9089depe 1 tablet by mouth at mealtimemetFORMIN (Glucophage) 500 MG tablet Indications: PCOS (polycystic ovarian syndrome) , Insulin resistance Take 1 tablet (500 mg) by mouth in the morning. Take with meals. 30 tablet 11 12/01/2024 01/13/2025 Discontinuedmetoclopramide 10 mg oral tablet (20 sources)Dopamine-2 Receptor AntagonistStart: 04-15-2025 End: 49-84-3759sprhsjxiszkydo (Reglan) 10 MG tablet Indications: Nausea and vomiting during (HHS-HCC) Take 1 tablet (10 mg) by mouth in the morning and 1 tablet (10 mg) at noon and 1 tablet (10 mg) in theevening. Take before meals. Take 1 tablet by mouth 30 minutes prior to meals 3 times daily as needed for nausea. 90 tablet 1 04/15/2025 ActiveStart: 01-13-2025 End: 00-24-9484bypdtZMRPZHTH 0.0075 mg/mg vaginal gel (3 sources)Nitroimidazole AntimicrobialStart: 05-10-2025 End: 61-94-3255itlayXBHPZGAB (Metrogel) 0.75 % vaginal gel Indications: BV (bacterial vaginosis) Insert into the vagina Daily for 5 days 70 g 05/10/2025 05/15/2025 ActiveMultiple Vitamin (multivitamin) tablet (6 sources) End: 37-79-1174goan 1 tablet by mouth once dailyMultiple Vitamin (multivitamin) tablet Take 1 tablet by mouth Daily 01/13/2025 Discontinuedtake 1 tablet by mouth once dailyMultiple Vitamin (multivitamin) tablet Take 1 tablet by mouth Daily Tharhd10 hr NIFEdipine 30 mg extended release oral tablet (7 sources)Dihydropyridine Calcium Channel BlockerStart: 71-81-9191xrzf 1 tablet by mouth once daily, then take 1 tablet by mouth every twenty-four hours NIFEdipine CC (Adalat CC) 30 MG 24 hr tablet Take 30 mg by mouth Daily 10/20/2024 Activeondansetron 4 mg disintegrating oral tablet (20 sources)Serotonin-3 Receptor AntagonistStart: 87-22-4905xjqo 1 tablet by mouth every eight hours as needed for nauseaondansetron ODT (Zofran-ODT) 4 MG disintegrating tablet Take 4 mg by mouth every 8 (eight) hours ifneeded for nausea 02/22/2025 ActiveStart: 01-11-2025 End: 65-08-5878cfxo 1 tablet by mouth every six hours for nauseaondansetron ODT (Zofran-ODT) 4 MG disintegrating tablet Indications: Nausea and vomiting during ([facility]) Take 1 tablet (4 mg) by mouth every 6 (six) hours if needed for nausea or vomiting 30 tablet 2 01/11/2025 02/10/2025 Activephentermine hydrochloride 37.5 mg oral tablet (3 sources)Sympathomimetic Amine AnorecticStart: 01-09-2023 End: 71-46-0109axmj 33-33.9 tablets by mouth once daily before breakfast phentermine (ADIPEX-P) 37.5 mg tablet Indications: Class 1 obesity due to excess calories without serious comorbidity with body mass index (BMI) of 33.0 to 33.9 in adult Take 1 tablet (37.5 mg total)by mouth every morning before breakfast. 30 tablet 0 03/05/2023 08/02/2023 Discontinued (Therapy completed)predniSONE 20 mg oral tablet (1 source)Start: 08-02-2023 End: 52-66-0695evip 1 tablet by mouth at mealtimepredniSONE (DELTASONE) 20 mg tablet Take 1 tablet (20 mg total) by mouth in the morning for 7 days.Take with food. 7 tablet 0 08/02/2023 08/09/2023 ActivePrenatal 27-1 MG tablet (20 sources)take 1 tablet by mouth once dailyPrenatal 27-1 MG tablet Take 1 tablet by mouth Daily ActiveSemaglutide (Weight Loss) (1 source)Start: 17-29-5388Kzmkatzauuz (Weight Loss) (Wegovy) 0.25 mg/0.5 mL pen injector Active 0.25 MG SUBCUT every week February 28, 2024 12:00am administer weeks 1 through 4 of therapy Completed/Discontinued Medications MedicationDrug Class(es)DatesSig (Normalized)Sig (Original)24 hr buPROPion hydrochloride 150 mg extended release oral tablet (10 sources)AminoketoneStart: 03-06-2024 End: 61-07-2748wchb 1 tablet by mouth every twenty-four hours in the morning buPROPion XL (Wellbutrin XL) 150 MG 24 hr tablet Take 150 mg by mouth in the morning. 03/06/2024 12/01/2024 DiscontinuedStart: 12-05-2023 End: 57-55-3139swta 150 mg by mouth once daily in the morningBupropion Hcl Active 150 MG PO Every morning January 07, 2024 12:59pm End: 49-52-8786jgRYKOtuo SR (Wellbutrin SR) 150 MG 12 hr tablet 12/01/2024 DiscontinuedDULoxetine 60 mg delayed release oral capsule (12 sources)Serotonin and Norepinephrine Reuptake InhibitorStart: 12-05-2023 End: 06-31-2402gkdx 1 capsule by mouth once dailyDuloxetine (Cymbalta) 30 mg capsule,delayed release(DR/EC) Discontinued 30 MG PO Daily 14 14 December 05, 2023 12:00am December 18, 2023 1:01pmStart: 01-09-2023 End: 39-23-3930vszm 1 capsule by mouth once dailyDuloxetine (Cymbalta) 60 mg capsule,delayed release(DR/EC) Discontinued 60 MG PO Daily December 05, 2023 12:00am December 05, 2023 4:15pmethinyl estradiol 0.035 mg / norgestimate 0.25 mg oral tablet (8 sources)Progestin, EstrogenStart: 01-16-2024 End: 44-46-6245zqvmssuycnra-ethinyl estradiol (Ortho-Cyclen) 0.25-35 MG-MCG tablet Indications: Encounter for surveillance of contraceptive pills Take 1 tablet by mouth Daily 84 tablet 3 01/16/2024 12/01/2024 DiscontinuedStart: 68-26-0360hddw 1 tablet by mouth once dailyNorgestimate-Ethinyl Estradiol Active 1 TAB PO Daily December 05, 2023 12:00amStart: 15-49-8646ogav 1 tablet by mouth once in the morningnorgestimate-ethinyl estradioL (ORTHO-CYCLEN) 0.25-35 mg-mcg per tablet Take 1 tablet by mouth in the morning. 12/18/2022 ActiveStart: 81-56-8085epdg 1 tablet by mouth once in the morningnorgestimate-ethinyl estradioL (ORTHO-CYCLEN) 0.25-35 mg-mcg per tablet Take 1 tablet by mouth in the morning. 0 12/18/2022 Dukwpn74 hr loratadine 10 mg / pseudoephedrine sulfate 240 mg extended release oral tablet (5 sources)alpha-Adrenergic AgonistStart: 08-02-2023 End: 75-40-3407aejf 10-240 mg by mouth every twenty-four hours in the morning Loratadine-D 24HR 10-240 MG 24 hr tablet Take 1 tablet by mouth in the morning. 08/02/2023 12/01/2024 DiscontinuedStart: 08-02-2023 End: 08-96-7763kdec 1 tablet by mouth once in the [...] unspecified; Translations: [Mixed anxiety and depressive disorder]Onset: 519810-90-0129EkymmdqShakbnqazizje (5 sources)Endometriosis of pelvic peritoneum; Translations: [Endometriosis (clinical)]Onset: 924401-40-4598QloksizMwbmvb infertility (2 sources)Female infertility; Translations: [Female infertility, unspecified] 29-21-9853JdxorxxLqifaklenhvx complicating ; childbirth and the puerperium (2 sources)-induced hypertension; Translations: [Gestational [-induced] hypertension withoutsignificant proteinuria, unspecified trimester]40-37-4847CcyoljehXqvalxmknbdve and screening for infectious disease (3 sources)Encounter for screening for human papillomavirus (HPV); Translations: [Exposure to sexually transmissible disorder]Onset: 109707-93-5244Vsqcbzrv Menstrual disorders (7 sources)Excessive and frequent menstruation with regular cycle; Translations: [Dysmenorrhea, unspecified]Onset: 24-11-0347GhojmotNiwj disorders (2 sources)Major depression in full remission; Translations: [Major depressive disorder, single episode, in full remission]Onset: hronic Other complications of (4 sources)Vomiting of , unspecified; Translations: [Unspecified vomiting of , unspecified as to episode of care or not applicable] 45-11-4520KidhegbwZntbg complications of (2 sources) size does not accord with dates; Translations: [Uterine size- date discrepancy, unspecified trimester]33-22-5283QnbyxduwMillu endocrine disorders (2 sources)Polycystic ovary syndrome; Translations: [Polycystic ovarian syndrome]03-22-5608ZiugstxYtnvt female genital disorders (1 source)Unspecified dyspareunia; Translations: [UNSPECIFIED DYSPAREUNIA]Onset: 03-84-8875IzxqhhwNhwpf female genital disorders (1 source)Abnormal uterine and vaginal bleeding, unspecified; Translations: [ABNORMAL UTERINE VAGINAL BLEED UNS]Onset: 55-78-4542ZuhdbuiRbemv female genital disorders (2 sources)Abnormal uterine bleeding; Translations: [Abnormal uterine and vaginal bleeding, unspecified]09-39-9544PuqoknwGegll female genital disorders (4 sources)Vaginal discharge; Translations: [Other specified noninflammatory disorders of vagina]55-21-9777IgmspoljPftih gastrointestinal disorders (2 sources)Constipation; Translations: [Constipation, unspecified]01-13-2025 EpisodicOther nutritional; endocrine; and metabolic disorders (1 source)Obesity, unspecified; Translations: [OBESITY UNSPECIFIED]Onset: 71-80-9586XxibmsgEzfmw nutritional; endocrine; and metabolic disorders (2 sources)Insulin resistance; Translations: [Insulin resistance]12-01-2024 ChronicOther and delivery including normal (16 sources); Translations: [Encounter for supervision of normal , unspecified, unspecified trimester]22-73-1315LievcxayYvblf screening for suspected conditions (not mental disorders or infectious disease) (8 sources)Encounter for screening for malignant neoplasm of cervix; Translations: [Patient encounter status]Onset: 58-07-6036GnquffgwLkwhhxmhulhazq and other problems of amniotic cavity (2 sources)Subchorionic hematoma; Translations: [Other specified disorders of amniotic fluid and membranes, first trimester, not applicable or unspecified] 38-29-0332MnqaartoLpvldnmr codes; unclassified (2 sources)Gestation period, 13 weeks; Translations: [13 weeks gestation of ]93-81-2785VurzidybIixtepte codes; unclassified (2 sources)Gestation period, 17 weeks; Translations: [17 weeks gestation of ]90-72-5088FltzycthOpdnglwb codes; unclassified (2 sources)Gestation period, 21 weeks; Translations: [21 weeks gestation of ]85-36-0507UgdaeubbXrzjbcwu codes; unclassified (2 sources)Gestation period, 24 weeks; Translations: [24 weeks gestation of ]30-84-9773GhjpucivIkqqffxb codes; unclassified (4 sources)Gestation period, 28 weeks; Translations: [28 weeks gestation of ]94-82-0210KgmpxthxFpnzmrovoqer (1 source)CONTACT W/AND (SUSP) EXPOS COVID-19; Translations: [CONTACT W/AND (SUSP) EXPOS COVID-19]Onset: 04-08-4887Wowwgtecgxcr (2 sources)pre employment; Translations: [pre employment]Onset: 03-04-2025 Past or Other Problems Problem ClassificationProblemDateDocumented DateEpisodic/ChronicAbdominal pain (1 source)Pelvic and perineal pain; Translations: [PELVIC AND PERINEAL PAIN] Onset: 03-76-7282WwlhavcqYhwx disorders (3 sources)Mood disorders; Translations: [DEPRESSION UNSPECIFIED]Onset: Other circulatory disease (1 source)Elevated blood pressure; Translations: [Elevated blood-pressure reading, without diagnosis of hypertension]28-65-7709JyefybxxKzozo upper respiratory infections (1 source)Acute maxillary sinusitis; Translations: [Acute maxillary sinusitis, unspecified]82-76-4806XhhudscjJobyjb media and related conditions (1 source)Acute non-suppurative otitis media - serous; Translations: [Acute serous otitis media, bilateral]96-94-5276MrfuxzsvEehpokthgfzv (2 sources)Onset: Results Test NameValueInterpretationReference RangeFacilityUS OB FOLLOW UP TRANSABDOMINAL APPROACHon 52-71-2587MY OB FOLLOW UP TRANSABDOMINAL APPROACH FINDINGS: A [...] Delivery: 08/26/25 Gestational Age as of 06/08/2025: 91t2uNvswhbzaxa macro (dipstick) panel (U)on 04-80-8884Fkuibrcjz, UANegativeNegative - 4(70) +++ mg/dLNOMS HealthcareBlood, UANegativeNegative [...] mg/dLNOMS HealthcareNOMS HealthcareUrinalysis macro (dipstick) panel (U)on 39-93-7194Calauthfy, UA NegativeNegative - 4(70) +++ mg/dLNOMS HealthcareBlood, UANegativeNegative - 50 Randall/mcLNOMS HealthcareClarity, UAClearNOMS HealthcareColor, UAYellowNOMS HealthcareGlucose, UANegativeNegative - 1999(110) ++++ mg/dLNOMS Healthcare Interpretation and review of laboratory resultsAbnormalNOMS HealthcareKetones, UANegativeNegative - 160(16) ++++ mg/dLNOMS HealthcareLeukocytes, UAPositive Negative - 500+++ Johnson/[facility] SystemNOMS HealthcareComment on above:1+Nitrite, UANegative Negative - PositiveNOMS HealthcarepH, UA6.05 - 9NOMS HealthcareProtein, UA PositiveNegative - 1999(20) ++++ mg/dLNOMS HealthcareSpec Grav, UA1.0201 - 1.03 NOMS HealthcareUrobilinogen, UA1.00.2 - 12 mg/dLNOMS HealthcareNOMS Healthcare Urinalysis macro (dipstick) panel (U)on 63-23-9893Qjpibzezv, UANegativeNegative - 4(70) +++ mg/dLNOMS HealthcareBlood, UANegativeNegative - 50 Randall/mcLNOMS HealthcareClarity, UAClearNOMS HealthcareColor, UAYellowNOMS HealthcareGlucose, UANegativeNegative - 1999(110) ++++ mg/dLNOMS HealthcareInterpretation and review of laboratory resultsAbnormalNOMS HealthcareKetones, UANegativeNegative - 160(16) ++++ mg/dLNOMS HealthcareLeukocytes, UA3+Negative - 500+++ [facility] SystemNONV HealthcareNitrite, UANegativeNegative - PositiveNOMS HealthcarepH, UA8.55 - 9 NOMS HealthcareProtein, UATraceNegative - 1999(20) ++++ mg/dLNOMS HealthcareSpec Grav, UA1.011 - 1.03NOMS HealthcareUrobilinogen, UA2.00.2 - 12 mg/dLNOMS HealthcareNOMS HealthcareIGP,APTIMA HPV,AGE GDLNon 06-66-4017IIH GDLN ACOG TESTINGNote.[facility] HealthcareComment on above:TESTS RESULT FLAG UNITS REF RANGE LAB Clinician Provided Cytology Information Source.............Endocervix Other.............. No. of containers..01 ThinPrep Vial Age Madhu CRANE Millie... FLAG LEGEND: L-Low Normal,H-High Normal,LL-Alert Low,HH-Alert High <-Panic Low,>-Panic High,A-Abnormal,AA-Critical Abnormal Performed at: 01 =G [facility] [address] [place] [address] Beverly Nguyen MD, IGP, RFX APTIMA HPV ASCUNote.NOMS HealthcareComment on above:TESTS RESULT FLAG UNITS REF RANGE LAB DIAGNOSIS: 02 NEGATIVE FOR INTRAEPITHELIAL LESION OR MALIGNANCY. FUNGAL ORGANISMS MORPHOLOGICALLY CONSISTENT WITH ROSALBA SPECIES ARE PRESENT. Specimen adequacy: 02 Satisfactory for evaluation. Endocervical and/or squamous metaplastic cells (endocervical component) are present. Performed by: 02 Sonia Beckham, Tail Worker ([facility]) . 02 Note: Note 02 The [...] High <-Panic Low,>-Panic High,A-Abnormal,AA-Critical Abnormal Performed at: [address] [place] [id number] Beverly Nguyen MD, Performed at: = - [address] [id number] Pot Firer: Beverly Nguyen MD, Phone: [phone] Performed at: [address] [id number] Pot Firer: Beverly Nguyen MD, Phone: [phone] SPATULA-ALONE ENDOCERVIX CLINISYNCNOMS HealthcareAFP, SERUM, OPEN SPINA BIFIDAon 15-27-5751JLU MOM1.10. [facility] HealthcareAFP VALUE34.4 ng/mL.[facility] HealthcareCOMMENT:Comment.[facility] HealthcareComment on above:Giselle Merida, Ph.D., [facility] Director References: Available Upon Request. Multiples Of Median Cutoffs For AFP Elevations Sellers 2.5 Black 2.8 IDD 2.0 Twins 4.5 Abbreviation Definitions IDD - Insulin Dep Diabetes OSBR - Open Spina Bifida Risk For further inquiries contact [facility] at [phone]. This test was developed and its performance characteristics determined by [facility]. It has not been cleared or approved by the Food and Drug Administration. Performed at: - [facility] [address] [facility], [place], [place] [id number] Pot Firer: Nirmal Means [facility], Phone: [phone] GEST. AGE ON COLLECTION DATE17.0. weeksNONV HealthcareGESTAT. AGE BASED ONLMP. NOMS HealthcareComment on above:Recalculations are not recommended when gestational dating by LMP and ultrasound are within 10 days. INSULIN DEP DIABETESNo.NOM HealthcareINTERPRETATIONComment.[facility] Healthcare Comment on above:Interpretation: Screen Negative This [...] Customer Services to discuss available options. The [employer] recommends amniocentesis be offered to women age 35 and older. MATERNAL AGE AT EDD25.9. yrNONV HealthcareMULTIPLE GESTATIONNo.[facility] OSBR RISK 1 [id number].[facility] HealthcareRACECaucasian.[facility] HealthcareRESULTSReport. [facility] HealthcareTEST RESULTS:Negative.[facility] XutioxjkcyBMYWRE824. lbsNOMS HealthcarePREGNANCY N N LMP [id number] 17 N 1 Y 206 N N N N N White/ CLINISYNCNOMS HealthcareRECURRENT VAGINITIS (HTRX)on 30-11-2224NWNZDUYMT VAGINAE 0NOMS HealthcareATOPOBIUM VAGINAENot detectedNOMS HealthcareBVAB 2,3 (BACTERIAL VAGINOSIS ASSOCIATED BACTERIA 2, 3); MOBILUNCUS ZXB1IOIL HealthcareBVAB 2,3 (BACTERIAL VAGINOSIS ASSOCIATED BACTERIA 2, 3); MOBILUNCUS SPPNot detectedNOMS HealthcareCANDIDA ALBICANS, PARAPSILOSIS, USCZIPZZXK99.725AbnormalNOMS HealthcareCANDIDA ALBICANS, PARAPSILOSIS, TROPICALISDetectedAbnormalNOMS HealthcareCANDIDA RRYITFAA4HSOE HealthcareCANDIDA GLABRATANot detectedNOMS HealthcareCANDIDA IRESNW1TTWE HealthcareCANDIDA KRUSEINot detectedNOMS HealthcareCHLAMYDIA FJUCNKNLSVD7WIGW HealthcareCHLAMYDIA TRACHOMATISNot detected NOMS HealthcareGARDNERELLA HQFHTFQPF45.732AbnormalNOMS HealthcareGARDNERELLA VAGINALISDetectedAbnormalNOMS HealthcareInterpretation and review of laboratory resultsAbnormalNOMS HealthcareMEGASPHAERA (TYPES 1, 2)0[facility] MEGASPHAERA (TYPES 1, 2)Not detectedNOMS HealthcareMYCOPLASMA CQGZIZYGFV1UCVO HealthcareMYCOPLASMA GENITALIUMNot detectedNOMS HealthcareNEISSERIA GONORRHOEAE0 NOMS HealthcareNEISSERIA GONORRHOEAENot detectedNOMS HealthcareTRICHOMONAS NIRGDWDLS5DANN HealthcareTRICHOMONAS VAGINALISNot detectedNOMS HealthcareNOMS HealthcareUS OB LIMITED 1+ FETUSESon 62-99-7739RV OB LIMITED 1+ FETUSESFINDINGS: Cephalic presentation. Anterior [...] was 11/19/2024 (approximate).Urinalysis macro (dipstick) panel (U)on 92-21-8275Ctcgcpsha, UANegativeNegative - 4(70) +++ mg/dL NOMS HealthcareBlood, UANegativeNegative - 50 Randall/mcLNOMS HealthcareClarity, UA ClearNOMS HealthcareColor, UAYellowNOMS HealthcareGlucose, UANegativeNegative - 1999(110) ++++ mg/dLNONV HealthcareInterpretation and review of laboratory resultsAbnormalNONV HealthcareKetones, UANegativeNegative - 160(16) ++++ mg/dL NOMS HealthcareLeukocytes, UAPositiveNegative - 500+++ Johnson/mcLNOMS Healthcare Comment on above:3+Nitrite, UANegativeNegative - PositiveNOMS HealthcarepH, UA75 - 9NOMS HealthcareProtein, UANegativeNegative - 2000(20) ++++ mg/dLNOMS HealthcareSpec Grav, UA1.021 - 1.03NONV HealthcareUrobilinogen, UA1.00.2 - 12 mg/dLNOSaint Luke's North Hospital–SmithvilleNONV HealthcareQuantiFERON Tbon 77-80-8432FMV InterNegative NormalNEGMercy Health St. Elizabeth Boardman HospitalComuniversity of [facility] on above:Result Comment: Quantiferon TB Gold Plus [...] Mycobacterium tuberculosis Infection -- [place], 2010 (http://www.cdc.gov/mmwr/preview/mmwrhtml/nt9225d9.htm), for more information concerning test performance in low-prevalence populations and use in occupational screening.Performed By: #### QFTB #### [facility] [address] [place], [place] [address] Pot Firer: Hamlet Cai Juan minus NIL9.92 IU/mLNormalMercy Health St. Elizabeth Boardman HospitalComuniversity of mich[facility] health–west on above:Performed By: #### QFTB #### [facility] [address] [place], [place] [address] Pot Firer: Hamlet Caii TB1 minus NIL0.00 IU/mLNormal0.00-0.[address] [facility] Board[facility] HospitalComuniversity of [facility] on above:Performed By: #### QFTB #### [facility] [address] [place], [place] [address] Pot Firer: Lance Chester MDQuanti TB2 minus NIL0.00 IU/mLNormal0.00-0.[address] [facility] Boardman HospitalComment on above:Performed By: #### QFTB #### [facility] [address] [place], [place] [id number] Pot Firer: Lance Chester MDQuantiFERON NIL0.08 IU/mLNormalMercy Health St. Elizabeth Boardman HospitalComment on above:Performed By: #### QFTB #### [facility] [address] [place], [place] [id number] Pot Firer: Lance Chester MDUrinalysis macro (dipstick) panel (U)on 94-18-8846Gkkurssce, UANegativeNegative - 4(70) +++ mg/dLNOMS HealthcareBlood, UANegativeNegative [...] - 12 mg/dLNOMS HealthcareNOMS HealthcareUS OB TRANSVAGINALon 95-14-0840N[address] [address] Ultrasound Report Signed Patient: MEREDITH TEMPLETON MR#: [id number] : 2000 Acct:[id number] Age/Sex: 24 / F ADM Date: 02/11/25 Loc: US Attending Dr: Abad Canchola D.O. Ordering Physician: Abad Canchola D.O. Date of Service: 02/11/25 Procedure(s): US OB transvaginal Accession Number(s): [id number] cc: Michelle Pabon M.D.; Abad Canchola D.O. [place] [address] Patient Name: MEREDITH TEMPLETON MRN: [id number] date: 2000 Sex: F Assigned Patient Location: US Current Patient Location: US Accession/Order Number: [id number] Exam Date: 02/11/2025 09:39 Report Date: 02/11/2025 [...] Gillette M.D. 02/11/2025 9:43 AM Dictation Location: [place] [address] Electronically authenticated by: [id number] Y Date: 02/11/2025 09:43 Dictated By: Misa Gillette M.D. Signed By: 02/11/2546 DD/ 2 TD/TT: Child Welfare Counselor:SHERRIEadiology, Radiologist, - 02/11/[address] [address] Ultrasound Report Signed Patient: MEREDITH TEMPLETON MR#: [id number] : 2000 Acct:[id number] Age/Sex: 24 / F ADM Date: 02/11/25 Loc: US Attending Dr: Abad Canchola D.O. Ordering Physician: Abad Canchola D.O. Date of Service: 02/11/25 Procedure(s): US OB transvaginal Accession Number(s): [id number] cc: Michelle Pabon M.D.; Abad Canchola D.O. The [place] [id number] Patient Name: MEREDITH TEMPLETON MRN: [id number] date: 2000 Sex: F Assigned Patient Location: US Current Patient Location: US Accession/Order Number: [id number] Exam Date: 02/11/2025 09:39 Report Date: 02/11/2025 [...] Gillette M.D. 02/11/2025 9:43 AM Dictation Location: [place] [address] Electronically authenticated by: [id number] Y Date: 02/11/2025 09:43 Dictated By: Misa Gillette M.D. Signed By: 02/11/2546 DD/ 2 TD/TT: Child Welfare Counselor: [facility] HealthcareRadiology Study observation (narrative)[facility] HealthcareUS OB TRANSVAGINALOrdered By: Radiologist Radiology on 36-82-6140BSJOMissouri Southern Healthcare Work Phone: HCG ( test) Ql (U)on 47-28-2129Irjobslrnsggop and review of laboratory resultsAbnormalNOSaint Luke's North Hospital–SmithvillePreg Test, UrPositive NegativeNOMayo Clinic Health System– ArcadiaMLR HEMOGLOBIN A1Con 10-94-3742Ggnvfen [Mass/Vol]91 mg/dLMissouri Southern HealthcareHbA1c (Bld) [Mass fraction]4.8 %4.5 - 6.2 %[facility] HealthcareComment on above:ADA RECOMMENDED LIMIT 4.0 - 6.0 ADA THERAPEUTIC TARGET < 7.0 ACTION SUGGESTED > 7.0 CLINISYNCNONV HealthcareUS OB TRANSVAGINALon 73-00-7045NC OB TRANSVAGINALEXAM: US OB TRANSVAGINAL HISTORY: Dating. [...] PHD at 22-Jan-2025 10:24:02 AM [facility] TeleradiologyNormalNot AvailableComment on above:Order Comment: US OB TRANSVAGINAL Patient's last menstrual period was 11/19/2024 (approximate).Urinalysis macro (dipstick) panel (U)on 75-31-5532Fdsfeaywb, UANegativeNegative - 4(70) +++ mg/dL [facility] HealthcareBlood, [...] HealthcareNOMS Healthcare Urinalysis macro (dipstick) panel (U)on 22-20-5531Vtsbaueon, UANegativeNegative - 4(70) +++ mg/dLNOMS HealthcareBlood, UANegativeNegative - 50 Randall/mcLNOMS HealthcareClarity, UAClearNOMS HealthcareColor, UAYellowNOMS HealthcareGlucose, UANegativeNegative - 1999(110) ++++ mg/dLST[facility]ARD [facility] HealthcareInterpretation and review of laboratory resultsAbnormalNONV HealthcareKetones, UANegativeNegative - 160(16) ++++ mg/dLSTEWARD [facility]ALTH [facility] HealthcareLeukocytes, UAPositiveNegative - 500+++ Johnson/mcL [facility] HealthcareComment on above:LargeNitrite, UANegativeNegative - PositiveNONV HealthcarepH, UA75 - 9NOMS HealthcareProtein, UANegativeNegative - 2000(20) ++++ mg/dLSTEWARD HEALTH [facility] HealthcareSpec Grav, UA1.0151 - 1.03NONV HealthcareUrobilinogen, UA0.2 0.2 - 12 mg/dLBarnes-[facility] HealthcareALL CBC WITH AUTO DIFFon 12-01-2024 BASOPHILS ABSOLUTE AUTO0.1NOMS HealthcareBasophils/100 WBC (Bld)0.5 %0.2 - 2.0 % [facility] HealthcareEosinophils/100 WBC (Bld)2.6 %0.9 - 7.0 %[facility] Erythrocyte distribution width (RBC) [Ratio]12.2 %11.0 - 15.0 %[facility] Hematocrit (Bld) [Volume fraction]42.8 %36.0 - 48.0 %[facility] HealthcareHemoglobin (Bld) [Mass/Vol]14.8 g/dL12.0 - 16.0 g/dLMissouri Southern HealthcareIMMATURE GRANULOCYTES ABS AUTO0.01NOSaint Luke's North Hospital–SmithvilleImmature granulocytes/100 WBC (Bld)0.1 %0.0 - 0.5 % [facility] HealthcareLYMPHOCYTES ABSOLUTE AUTO2.8NOSaint Luke's North Hospital–SmithvilleLymphocytes/100 WBC (Bld)29.5 %20.5 - 60.0 %[facility] SystemsH (RBC) [Entitic mass]29.6 pg26.7 - 34.0 pgPemiscot Memorial Health SystemsHC (RBC) [Mass/Vol]34.6 g/dL29.9 - 35.2 g/dLPemiscot Memorial Health SystemsV (RBC) [Entitic vol]85.6 fL81.0 - 99.0 fLMissouri Southern HealthcareMONOCYTES ABSOLUTE AUTO0.6NOSaint Luke's North Hospital–SmithvilleMonocytes/100 WBC (Bld)5.8 %1.7 - 12.0 %[facility] HealthcareNEUTROPHILS ABSOLUTE AUTO5.8NOMS HealthcareNeutrophils/100 WBC (Bld) 61.5 %43.0 - 75.0 %[facility] HealthcarePlatelet mean volume (Bld) [Entitic vol]10 fL 9.5 - 13.5 fLNOMS HealthcareTBH EO #0.3NOMS HealthcareTBH KNT907VGIR Healthcare TBH IGZ5CWJJ HealthcareTBH WBC9.5NOMS HealthcareCLINISYNCNOMS HealthcareHCG ( test) Ql (U)on 41-18-5673Kfnvetlozgluok and review of laboratory resultsNormalMissouri [facility] HealthcarePreg Test, UrNegativeNegativeNOFreeman [facility] Institute HealthcareUrinalysis macro (dipstick) panel (U)on 38-23-5552Zglwundov, UA NegativeNegative - 4(70) +++ mg/dLNONV HealthcareBlood, UANegativeNegative - 50 Randall/mcLNONV HealthcareClarity, UAClearNONV HealthcareColor, UAYellowNONV HealthcareGlucose, UANegativeNegative - 2000(110) ++++ mg/dLMiss[facility] Interpretation and review of laboratory resultsAbnormalSTEWARD HEALTH [facility]ARE SYSTEM HealthcareKetones, UANegativeNegative - 160(16) ++++ mg/dLMiss[facility] HealthcareLeukocytes, UAPositive Negative - 500+++ Johnson/mcLNONV HealthcareComment on above:smallNitrite, UA NegativeNegative - PositiveNONV HealthcarepH, UA75 - 9NOMS HealthcareProtein, UA NegativeNegative - 2000(20) ++++ mg/dLNONV HealthcareSpec Grav, UA1.011 - 1.03 [facility] HealthcareUrobilinogen, UA0.20.2 - 12 mg/dLNOMS [facility] WestNONV Healthcare IGP,APTIMA HPV,AGE GDLNon 81-97-0855VOK GDLN ACOG TESTINGNote.[facility] Comment on above:TESTS RESULT FLAG UNITS REF RANGE LAB Clinician Provided Cytology Information Source.............Cervix;Endocervix No. of containers..01 ThinPrep Vial Phan Pinto... FLAG LEGEND: L-Low Normal,H-High Normal,LL-Alert Low,HH-Alert High <-Panic Low,>-Panic High,A-Abnormal,AA-Critical Abnormal Performed at: 01 =G [facility] [address] Beverly Nguyen MD, IGP, RFX APTIMA HPV ASCUNote.[facility] HealthcareComment on above:TESTS RESULT FLAG UNITS REF RANGE LAB DIAGNOSIS: 02 NEGATIVE FOR INTRAEPITHELIAL LESION OR MALIGNANCY. Specimen adequacy: 02 Satisfactory for evaluation. No endocervical component is identified. Performed by: Pricila Smith, Bagging Machine Operator ([facility]) . 02 Note: Note 02 The [...] <-Panic Low,>-Panic High,A-Abnormal,AA-Critical Abnormal Performed at: [address] [address] Beverly Nguyen MD, Performed at: = - [address] [id number] Pot Firer: Beverly Nguyen MD, Phone: [phone] Performed at: [facility] [id number] Pot Firer: Beverly Nguyen MD, Phone: [phone] BRUSH-SPATULA CERVIX ENDOCERVIX CLINISYNCNOMS HealthcareComprehensive Metabolic Panelon 35-29-7726Jxajfzp [Mass/Vol]4.2 g/dLNormal3.5-5.0Mer[facility] Allen HospitalComment on above:Order Comment: Ordered by ANNEL Loving By: #### KEIRA, [id number] #### [place] [address] Ph. [phone] [Catalytic activity/Vol]77 U/QCbnajh18-682FmpypvkMetroHealth Main Campus Medical CenterComment on above:Order Comment: Ordered by ANNEL Loving By: #### KEIRA, [id number] #### [address] [address] Ph. [phone] [Catalytic activity/Vol]29 U/LNormal0-35WMetroHealth Main Campus Medical CenterComment on above:Order Comment: Ordered by ANNEL KUNSPerformed By: #### CMP, [id number] #### [place] [address] Ph. [phone] [Catalytic activity/Vol]30 U/ARuccar21-28IklvujzMetroHealth Main Campus Medical CenterComment on above:Order Comment: Ordered by ANNEL Loving By: #### CMP, [id number] #### [place] [address] Ph. [phone] [Mass/Vol]0.4 mg/dLNormal0.2-1.3WMetroHealth Main Campus Medical CenterComment on above:Order Comment: Ordered by ANNEL Loving By: #### CMP, [id number] #### [place] [address] Ph. [phone] [Mass/Vol]9.2 mg/dLNormal8.4-10.2WMetroHealth Main Campus Medical CenterComment on above:Order Comment: Ordered by ANNEL Loving By: #### CMP, [id number] #### [place] [address] Ph. [phone] [Moles/Vol]101 mmol/WCsuzac63-279GukzpjfMetroHealth Main Campus Medical CenterComment on above:Order Comment: Ordered by ANNEL Loving By: #### CMP, [id number] #### [place] [address] Ph. [phone] [Moles/Vol]25 mmol/CTydoqq19-34XthvxcrMetroHealth Main Campus Medical Center Comment on above:Order Comment: Ordered by ANNEL Loving By: #### CMP, [id number] #### [place] [address] Ph. [phone] [Mass/Vol]0.71 mg/dLNormal0.52-1.04WMetroHealth Main Campus Medical CenterComment on above:Order Comment: Ordered by ANNEL Lovnig By: #### CMP, [id number] #### [address] [address] Ph. [phone]/1.73 sq M.predicted among non-blacks MDRD (S/P/Bld) [Vol rate/Area]122 mL/min/{1.73_m2}Normal>60WMetroHealth Main Campus Medical CenterComment on above:Order Comment: Ordered by ANNEL Reynoso Comment: GFR calculated using CKD-EPI (2020) formula.\X0D0A\Stage 1 Kidney damage (e.g., protein in the urine) with normal GFR >=90\X0D0A\Stage 2 Kidney damage with mild decrease in GFR 60-8 9\X0D0A\Stage 3a Moderate decrease in GFR 45-59\X0D0A\Stage 3b Moderate decrease in GFR 30-44\X0D0A\Stage 4 Severe reduction in GFR 15-29\X0D0A\Stage 5 Kidney failure <15Performed By: #### CMP, [id number] #### [address] [address] Ph. [phone] [Mass/Vol]85 mg/kBBeujdw02-288TlswztxMercy Health Allen Hospital Comment on above:Order Comment: Ordered by ANNEL Loving By: #### CMP, [id number] #### [address] [address] Ph. [phone] [Moles/Vol]4.1 mmol/LNormal3.6-5.0WMetroHealth Main Campus Medical CenterComment on above:Order Comment: Ordered by ANNEL Loving By: #### CMP, [id number] #### [address] [address] Ph. [phone] [Mass/Vol]8.0 g/dLNormia6.3-8.2[facility] Comment on above:Order Comment: Ordered by ANNEL Loving By: #### CMP, [id number] #### [address] [place] [address] Ph. [phone] [Moles/Vol]137 mmol/ROmhwwn111-694SvjlgunMetroHealth Main Campus Medical CenterComment on above:Order Comment: Ordered by ANNEL Gonzalezformed By: #### CMP, [id number] #### [address] [place] [address] Ph. [phone] nitrogen [Mass/Vol]10 mg/dLNormal7-17WMetroHealth Main Campus Medical CenterComment on above:Order Comment: Ordered by ANNEL Gonzalezformed By: #### CMP, [id number] #### [place] [address] Ph. [phone] [Mass/Vol]4.2 g/dL3.5 - 5.0 g/dLWYANDOTALP (Bld) [Catalytic activity/Vol]77 U/L38 - 126 U/LWYANDOTALT [Catalytic activity/Vol]29 U/L0 - 35 U/LWYANDOTAST [Catalytic activity/Vol]30 U/L14 - 36 U/LWYANDOT Bilirubin [Mass/Vol]0.4 mg/dL0.2 - 1.3 mg/dLWYANDOTCalcium [Mass/Vol]9.2 mg/dL 8.4 - 10.2 mg/dLWYANDOTChloride [Moles/Vol]101 mmol/LWYANDOTCO2 [Moles/Vol]25 mmol/LWYANDOTCreatinine [Mass/Vol]0.71 mg/dL0.52 - 1.04 mg/dLWYANDOTGFR, Eprdlipas695- PINFWYANDOTComment on above: GFR calculated using CKD-EPI [...] mg/dL7 - 17 mg/dLWYANDOTOrdered by ANNEL FINN [facility] HOSPITALEZRATTSH Reflex FT4on 91-90-7100LRP6.420 mIU/mLNormal0.470-4.680WLake County Memorial Hospital [facility] West on above:Order Comment: Ordered by ANNEL Gonzalezformed By: #### CMP, [id number] #### [place] [address] Ph. [phone] with Reflexon [id number] Qn2.420 m[IU]/LWYANDOTOrdered by [facility] BASILEATING RECOVERY CENTER A BEHAVIORAL HOSPITALWYANDOTPAP ACOG PANEL 2: to 03-01-2022.. NormalThe Main Campus Medical CenterComment on above:Performed By: #### [id number] #### [facility] [address] [place] [address] Dr. Dallas Kaplan Gdln ACOG Lzwujex82-87AtgfemGmvTuscarawas HospitalComuniversity of michigan health–west on above:Performed By: #### [id number] #### [facility] [address] [place] [address] Dr. Dallas WolfDIAGNOSIS:CommentMemorial Health System Marietta Memorial Hospital on above: Result Comment: NEGATIVE FOR INTRAEPITHELIAL LESION OR MALIGNANCY.Performed By: #### [id number] #### [facility] [address] [place] [address] Dr. Dallas WolfMethodology:CommentMemorial Health System Marietta Memorial Hospital on above: Result Comment: This liquid based ThinPrep(R) pap test was screened with the use of an image guided system.Performed By: #### [id number] #### [facility] [address] [place] [address] Dr. Dallas WolfNote:CommentMemorial Health System Marietta Memorial Hospital on above:Result Comment: The Pap smear is a screening test designed to aid in the detection of premalignant and malignant conditions of the uterine cervix. It is not a diagnostic procedure and should not be used as the sole means of detecting cervical cancer. Both false-positive and false-negative reports do occur. .Performed By: #### [id number] #### [facility] [address] [place] [address] Dr. Dallas WolfPerformed by:CommentMemorial Health System Marietta Memorial Hospital on above: Result Comment: Nikolay Smith, Bagging Machine Operator (ASCP)Performed By: #### [id number] #### [address] [address] Dr[address] Dallas WolfReflex Criteria:[facility] on above:Result Comment: The HPV DNA reflex criteria were not met with this specimen result therefore, no HPV testing was performed. .Performed By: #### [id number] #### [address] [address] Dr[address] Dallas WolfSpecimen adequacy:[facility] on above:Result Comment: Satisfactory for evaluation. Endocervical and/or squamous metaplastic cells (endocervical component) are present.Performed By: #### [id number] #### [address] [address] Dr. Dallas Jackson AUTO DIFFon [id number] #0.1 103/ulNormal0.0-0.1The Veterans Health Administrationment on above:Performed By: #### CBC #### [facility] [address] [place] [address] Dr. Dallas WolfBasophils/100 WBC (Bld)0.8 %Normal0.2-2.0[facility] Comment on above:Performed By: #### CBC #### [facility] [address] [place] [address] Dr. Dallas Huggins #0.3 103/ulNormal0.0-0.7The [facility] on above: Performed By: #### CBC #### [facility] [address] [address] [address] Dallas Msoleyosinophils/100 WBC (Bld)4.1 %Normal0.9-7.0The [facility] Comment on above:Performed By: #### CBC #### [facility] [address] [place] [address] Dr. Dallas Mosleyrythrocyte distribution width (RBC) [Ratio]13.0 %Lmpusp94.0-15.0 The [facility] Campus Medical CenterComment on above:Performed By: #### CBC #### [facility] [address] [place] [address] Dr. Dallas WolfHematocrit (Bld) [Volume fraction]43.4 %Uamuxd17.0-48.0The [facility] Medical CenterComment on above:Performed By: #### CBC #### [facility] [address] [place] [address] Dr. Dallas WolfHemoglobin (Bld) [Mass/Vol]14.5 g/jZJcxijo05.0-16.0The [facility] Medical CenterComment on above:Performed By: #### CBC #### [facility] [address] [place] [address] Dr. Dallas Ortez #0.02 10e3/ulNormal0.00-0.03The [facility] Medical CenterComment on above:Performed By: #### CBC #### [facility] [address] [place] [address] Dr. Dallas WolfIG %0.3 %Normal0.0-0.5The Veterans Health Administrationment on above: Performed By: #### CBC #### [facility] [address] [place] [address] Dr. Dallas MoralesMPH #2.2 103/ulNormal1.2-3.8The [facility] Medical CenterComment on above:Performed By: #### CBC #### [facility] [address] [place] [address] Dr. Dallas Moralesmphocytes/100 WBC (Bld)28.1 %Orjqee51.5-60.0The [facility] Medical CenterComment on above:Performed By: #### CBC #### [facility] [address] [address] [address] Dallas Cifuentes DIFF REQNONormalThe [facility] Campus Medical CenterComment on above: Performed By: #### CBC #### [facility] [address] [place] [address] Dr. Dallas Hernandez (RBC) [Entitic mass]28.5 ytCaqskx40.7-34.0The [facility] HospitalComment on above:Performed By: #### CBC #### [facility] [address] [place] [address] Dr. Dallas Hernandez (RBC) [Mass/Vol]33.4 g/pBBtalve46.9-35.2The [facility] Medical CenterComment on above:Performed By: #### CBC #### [facility] [address] [place] [address] Dr. Dallas Hernandez (RBC) [Entitic vol]85.3 zVBavnca48.0-99.0The [facility] Medical CenterComment on above:Performed By: #### CBC #### [facility] [address] [place] [address] Dr. Dallas Smith #0.6 103/ulNormal0.3-0.8The [facility] Medical CenterComment on above:Performed By: #### CBC #### [facility] [address] [place] [address] Dr. Dallas Medranoocytes/100 WBC (Bld)7.9 %Normal1.7-12.0The [facility] Comment on above:Performed By: #### CBC #### [facility] [address] [place] [address] Dr. Dallas Garcia #4.6 103/ulNormal1.4-6.5The [facility] Medical CenterComment on above:Performed By: #### CBC #### [facility] [address] [place] [address] Dr. Dallas Novautrophils/100 WBC (Bld)58.8 %Ioovtj58.0-75.0The [facility] Health Administrationment on above:Performed By: #### CBC #### [facility] [address] [address] [address] Dallas Loulet mean volume (Bld) [Entitic vol]9.6 fLNormal9.5-13.5The [facility] on above:Performed By: #### CBC #### [facility] [address] [address] [address] Dallas WolfPLT242 103/ybUsbrge887-930Keb [facility] CenterComment on above: Performed By: #### CBC #### [facility] [address] [place] [address] Dr. Dallas WolfRBC5.09 106/ulNormal4.20-5.40[facility] on above:Performed By: #### CBC #### [facility] [address] [place] [address] Dr. Dallas WolfWBC7.8 103/ulNormal4.0-11.0The [facility] Medical CenterComment on above: Performed By: #### CBC #### [facility] [address] [place] [address] Dr. Dallas WolfPREElise QUANT HCGon 08-49-3835KXK QUANT<1NormalAdams County Hospital Comment on above:Performed By: #### PREGQNT #### [facility] [address] [place] [address] Dr. Dallas WolfHCElise RANGESEE [facility]ale [facility] CenterComment on above: Result Comment: 5-50 0-1 WEEK 40-300 1-2 WEEKS 100-1,000 2-3 WEEKS 500-6,000 3-4 WEEKS 5,000-200,000 1-2 MONTHS 10,000-100,000 2-3 MONTHS 3,000-50,000 2ND TRIMESTER 1,000-50,000 3RD TRIMESTERPerformed By: #### PREGQNT #### [facility] [address] [place] [address] Dr. Dallas WolfCovid-19 PCR (CVDTBH)on 19-33-1009XVAV-CoV-2 (COVID-19) RNA SANJANA+probe Ql (Unsp spec)Not detectedNormalNOT DETECTEDThe [facility] Comment on above:Result Comment: This test is not yet approved or cleared by the [place] FDA. When there are no FDA-approved or cleared tests available, and other criteria are met, FDA can make tests available under an emergency access mechanism called an Emergency Use Authorization (EUA). The EUA for this test is supported by the Ear Nose Throat Surgeon of Health and Human Service's (HHS's) declaration [...] consistent with SARS-CoV-2.Performed By: #### CVDTB #### [facility] [address] [place] [address] Dr. Dallas Wolf Vital Signs Date TimeVital SignValuePerforming IjymqaheoRgqlsqww07-52-4808 15:50-0500Body mass index (BMI) [Ratio]35.19 kg/d7Xxvld Jesika DO Work Phone: NOAdvise Only Alvtfbrwuo15-58-7937 15:50-0500Body eijqxj99.88 kgCorey Jesika DO Work Phone: [phone] Luke's North Hospital–SmithvilleWfwytpdfqw91-29-5832 15:50-0500Diastolic blood mm[Hg]Abad Jesika DO Work Phone: NOMS HealthcareComment on above:130/ 15:50-0500Systolic blood cqnbitvd125 mm[Hg]Abad Jesika DO Work Phone: NOMS HealthcareComment on above:130/1627-26-6119 08:41-0400Body mass index (BMI) [Ratio]34.4 kg/m2Amy Gregorio PA Work Phone: [facility] HealthcareXiwodsnrop64-19-5791 08:41-0400Body yqwaxb18.67 kgShagufta Oneal PA Work Phone: [facility] HealthcareRgbzcseqzz99-67-3823 08:41-0400Diastolic blood xozmsrcp54 mm[Hg]Shagufta Oneal PA Work Phone: [facility] HealthcareYxvhvxietf57-07-1522 08:41-0400Systolic blood hoilnfwo978 mm[Hg]Shagufta Oneal PA Work Phone: [phone]-[facility] HealthcareZmpqlwgavz82-35-5111 08:33-0400Body mass index (BMI) [Ratio]33.59 kg/n6Ccjjfhxj Kirill ORDER CHECKER Work Phone: [facility] HealthcareKcclpykjdg04-93-6075 08:33-0400Body sfasoi52.4 kg Say Kirill ORDER CHECKER Work Phone: [facility] HealthcareOiqevcsvtd55-32-8821 08:33-0400Diastolic blood kibixtri22 mm[Hg]Say Cosmeerly ORDER CHECKER Work Phone: [phone]-[facility] HealthcareIuufaimkub59-88-2636 08:33-0400Systolic blood cbgrupya200 mm[Hg]Say Cosmeerly ORDER CHECKER Work Phone: [phone]-[facility] HealthcareFddzhzzgci72-23-6363 10:35-0400Body mass index (BMI) [Ratio]33.25 kg/b9Pnekk Jesika DO Work Phone: [facility] HealthcareQewzzxxeof21-90-8776 10:35-0400Body ljxjli78.44 kgCorey Jesika DO Work Phone: [phone]-[facility] HealthcareNrbdrojhot98-32-8741 10:35-0400Diastolic blood qudpfvto98 mm[Hg]Abad Jesika DO Work Phone: [phone]-[facility] HealthcareRdkzynfbmn37-60-7307 10:35-0400Systolic blood zshiqleg654 mm[Hg]Abad Jesika DO Work Phone: [phone]-[facility] HealthcareBshhxsvvgc53-83-7459 10:37-0400Body mass index (BMI) [Ratio]33.31 kg/m2Amy Gregorio PA Work Phone: [facility] HealthcareGwjxypvydu03-89-0141 10:37-0400Body .62 kgShagufta Oneal PA Work Phone: [facility] HealthcareMwfqmbqabp58-56-3092 10:37-0400Diastolic blood znuxacmq40 mm[Hg]Shagufta Oneal PA Work Phone: [facility] HealthcarePemigxphei26-24-0867 10:37-0400Systolic blood eapkwthz088 mm[Hg]Shagufta Oneal PA Work Phone: [phone] [place], [place] [address]Ifyxajzwae75-98-3178 08:55-0400Body mass index (BMI) [Ratio]33.25 kg/s7Vwhaw Jesika DO Work Phone: [facility] HealthcareNepuxqnrdo67-55-5414 08:55-0400Body aylczy18.44 kgCorey Jesika DO Work Phone: [facility] HealthcareNdtllslefw91-65-6851 08:55-0400Diastolic blood lnwqvueb75 mm[Hg]Abad Jesika DO Work Phone: [phone] [place], [place] [address]Qisyfqafrg57-57-1763 08:55-0400Systolic blood fwbovrul531 mm[Hg]Abad Jesika DO Work Phone: [facility] HealthcareUglatvgkeh45-62-9279 09:14-0400Body mass index (BMI) [Ratio]33.89 kg/m9EsbwobolSay Roy ORDER CHECKER Work Phone: [facility] HealthcareSxvmjpbjjb26-74-8800 09:14-0400Body zstzbu31.25 kgSay Friedmanly ORDER CHECKER Work Phone: [facility] HealthcareHfldhwxwil82-65-4716 09:14-0400Diastolic blood dwkqxcoh94 mm[Hg]Say Roy ORDER CHECKER Work Phone: [facility] HealthcareBputquhxwd70-06-4709 09:14-0400Systolic blood hkqujylz587 mm[Hg]Say Roy ORDER CHECKER Work Phone: [phone]-[facility] HealthcareSsffksdpjd14-91-6270 11:00-0400Body mass index (BMI) [Ratio]35.32 kg/b6Grqhm Jesika DO Work Phone: [facility] HealthcareArkjuqamxr92-47-8664 11:00-0400Body xaddjt77.25 kgCorey Jesika DO Work Phone: [facility] HealthcareStwfovpmhq82-13-9707 11:00-0400Diastolic blood mm[Hg]Abad Jesika DO Work Phone: [facility] HealthcareYniyuncobg75-09-4640 11:00-0400Systolic blood cmayahhj091 mm[Hg]Abad Jesika DO Work Phone: [facility] HealthcareSqbdsnlscm91-49-2666 14:07-0400Body bopiiz777.64 [facility] 14:07-0400Body mass index (BMI) [Ratio]35.9 kg/q4YzovgrebcGenesis Hospital07-19-2024 14:07-0400Body .15 [facility]07-19-2024 14:07-0400Diastolic blood ueraibgn00 mm[Hg][facility]07-19-2024 14:07-0400 Heart aguw897 /[facility]07-19-2024 14:07-0400Systolic blood mm[Hg][facility]04-25-2024 15:18-0400 Body wkuabq794.64 cmGen[facility]04-25-2024 15:18-0400Body mass index (BMI) [Ratio]36.8 kg/r5DdhxhrbpkGenesis Hospital04-25-2024 15:18-0400Body eqxqiv710.41 [facility]04-25-2024 15:18-0400Diastolic blood rvwmdtuy136 mm[Hg][facility] 12-05-2023 15:18-0400Heart rate94 /[facility] 12-05-2023 15:18-0400Systolic blood mm[Hg][facility]12-22-2023 11:56-0500Body mhotdw754.7 cmAnnel Yuen APRN-SENIOR INTERNET SALES CONSULTANT Work Phone: [facility]12-22-2023 11:56-0500Body mass index (BMI) [Ratio]35.18 kg/m2Annel JACOBSENIOR INTERNET SALES CONSULTANT [facility] Phone[facility]12-22-2023 11:56-0500Body ahgvdihsamr18.2 [degF]Annel JACOBSENIOR INTERNET SALES CONSULTANT Work Phone: [facility]12-22-2023 11:56-0500Body gqujwq587.96 kgAnnel Yuen APRNClaribelSENIOR INTERNET SALES CONSULTANT Work Phone: [facility]12-22-2023 11:56-0500Diastolic blood qoxmiapu36 mm[Hg]Annel JACOBSENIOR INTERNET SALES CONSULTANT Work Phone: [facility]12-22-2023 11:56-0500Heart rate 91 /minAnnel Yuen APRNClaribelSENIOR INTERNET SALES CONSULTANT Work Phone: [facility]Hum12-22-2023 11:56-6558ZfK9% (BldA) [Mass fraction]99 %Annel JACOBSENIOR INTERNET SALES CONSULTANT Work Phone: [facility]Food[facility]12-22-2023 11:56-0500Systolic blood lfeegisx434 mm[Hg]Annel JACOBSENIOR INTERNET SALES CONSULTANT Work Phone: [facility] HospitalZett[facility] Encounters Encounter DateEncounter Type[facility] ProviderFacilityStart: 06-21-2025 End: 04-72-5203Xhmyacnx flow sheetCorey Jesika DO Work Phone: [facility] Logan OBGYNComment on above:28 weeks gestation of ([facility]); Third trimester ([facility]); induced hypertension, antepartum (HHS-HCC)Start: 06-21-2025 End: 42-75-8291epifdcwpakZSUXI FAZIONot AvailableStart: 06-08-2025 End: 47-91-2548Fuwimj flowsheetAmy Gregorio MIX Work Phone: [facility] OBGYNStart: 06-08-2025 End: 60-56-7575Suxrru flowsheetShagufta MIX Work Phone: [facility] OBGYNStart: 06-08-2025 End: 59-62-6591Acfmpp outpatient visit 15 minutesShagufta MIX Work Phone: [facility] [place] OBGYNComment on above: size inconsistent with dates ([facility]) (Primary Dx); 28 weeks gestation of ([facility]); Second trimester ([facility])Start: 06-08-2025 End: 02-14-0388wbbtmwpanyGEM RAMEYNot AvailableStart: 05-12-2025 End: 56-32-0293Koiyvo flowsMaria Isabel Roy NP Work Phone: [facility] [place] OBGYNStart: 05-12-2025 End: 96-61-8704Xkcpfi flowsMaria Isabel Roy NP Work Phone: [facility] [place] [facility]BGYNStart: 05-12-2025 End: 71-21-9601Abzobegs flow sheetSay Roy NP Work Phone: [facility] [place] OBGYNComment on above:24 weeks gestation of ([facility]); Second trimester ([facility]); Diabetes mellitus screeningStart: 05-12-2025 End: 82-11-4608yruguqodiqTHMPVZIO EBERLYNot AvailableStart: 04-15-2025 End: 50-83-8238Ffeeqs flowsheetCorey Jesika DO Work Phone: [facility] [place] [facility]BGYNStart: 04-15-2025 End: 55-48-0479Hranol flowsheetCorey Jesika DO Work Phone: [facility] [place] OBGYNStart: 04-15-2025 End: 47-76-5075Bethption Result EncounterCorey Jesika DO Work Phone: NOMS External Department UnsolicitedStart: 04-15-2025 End: 96-29-9756Mdyabjxx preventive med est patient 18-39 yrsCorey Jesika DO Work Phone: [facility] OBGYNComment on above:Second trimester ([facility]); 21 weeks gestation of ([facility]); Nausea and vomiting during ([facility]); Vaginal discharge during , antepartum ([facility])Start: 04-15-2025 End: 53-65-7765iqtbyopauvYCYOL FAZIONot AvailableStart: 04-08-2025 End: 03-40-0179foljyrvxnxASK RAMEYNot AvailableStart: 03-18-2025 End: 43-99-5461Ewvvmopzm Result EncounterShagufta MIX Work Phone: noms External Department UnsolicitedStart: 03-18-2025 End: 00-24-0438Fsmlecrt Result EncounterShagufta MIX Work Phone: noms External Department UnsolicitedStart: 03-18-2025 End: 96-55-5446Ocomqjtq Result EncounterShagufta Gregorio MIX Work Phone: noms External Department UnsolicitedStart: 03-18-2025 End: 74-68-0153Zsrvafqn flow sheetShagufta Gregorio PA Work Phone: [facility] [place] OBGYNComment on above:17 weeks gestation of ([facility]); Second trimester ([facility]); Subchorionic hematoma in first trimester, single or unspecified fetus ([facility]); Screening, , for anatomic survey ([facility]); Exposure to STD; Vaginal dischargeStart: 03-18-2025 End: 45-64-9951davbwmjlrtTSH RAMEYNot AvailableStart: 03-04-2025 End: 61-36-9953eccfnggabmFXPZGOE Isaac LARASumma Health [facility] HospitalStart: 03-04-2025 End: 43-84-0829Pugmtcagaf hospital visit by Fide Sanford CNP Work Phone: [facility] LABStart: 02-18-2025 End: 53-99-4316Qkmpyb flowsheetCorey Jesika DO Work Phone: [facility] BCP OBStart: 02-18-2025 End: 66-66-4567Iwhhgb flowsheetCorey Jesika DO Work Phone: [facility] BCP OBStart: 02-18-2025 End: 95-35-4479tovibcpfqqEOWVD FAZIONot AvailableStart: 02-18-2025 End: 57-17-6573Kbticuyz flow sheetCorey Jesika DO Work Phone: NOMS BCP OBComment on above:Second trimester ([facility]); 13 weeks gestation of ([facility])Start: 02-11-2025 End: 69-13-7673Shjpxliir Result EncounterCorey Jesika DO Work Phone: NOMS External Department UnsolicitedStart: 02-11-2025 End: 38-79-7254Whctcjjwx Result EncounterCorey Jesika DO Work Phone: NOMS External Department UnsolicitedStart: 01-21-2025 End: 31-35-6832Lqiktkzhx Result EncounterCorey Jesika DO Work Phone: NOMS External Department UnsolicitedStart: 01-21-2025 End: 11-59-4132Cadjxjooc Result EncounterCorey Jesika DO Work Phone: noms External Department UnsolicitedStart: 01-21-2025 End: 23-31-0745Xzspaa outpatient visit 5 minutesNoms Bcp Ob Jesika NurseNOMS BCP OBComment on above:GA: 5b1mAnuwu: 01-21-2025 End: 88-88-8067jefxovkzaiSRCLR FAZIONot AvailableStart: 01-13-2025 End: 85-68-0786Uwqspb flowsheetSay Roy ORDER CHECKER Work Phone: N[facility]S BCP OBStart: 01-13-2025 End: 93-28-8016Zncyry flowsheetSay Roy ORDER CHECKER Work Phone: [facility] BCP OBStart: 01-13-2025 End: 71-63-5038dviivnjztlQAUWJTWO EBERLYNot AvailableStart: 01-13-2025 End: 13-51-3342Pdgqae outpatient visit 15 minutesSay Roy ORDER CHECKER Work Phone: noms [facility] OBComment on above:GA: 8r5dEokvo: 12-01-2024 End: 69-72-0422Levlqd flowsheetCorey Jesika DO Work Phone: noms BCP OBStart: 12-01-2024 End: 68-87-9327Kxgudrhtz Result EncounterCorey Jesika DO Work Phone: noms External Department UnsolicitedStart: 12-01-2024 End: 93-18-5591Avcgzkisp Result EncounterCorey Jesika DO Work Phone: noms External Department UnsolicitedStart: 12-01-2024 End: 28-55-7124Asjeay outpatient visit 15 minutesCorey Jesika DO Work Phone: noms [facility] OBComment on above:Female infertility; PCOS (polycystic ovarian syndrome); Abnormal uterine bleeding (AUB); Endometriosis; Insulin resistanceStart: 12-01-2024 End: 78-80-0145xdufucqvbhRHVZQ FAZIONot AvailableStart: 03-25-2024 End: 07-06-4290Omjqylnox Result EncounterCorey Jesika DO Work Phone: noms External Department UnsolicitedStart: 03-25-2024 End: 55-09-3025Ysdwcewhq Result EncounterCorey Jesika DO Work Phone: noms External Department UnsolicitedStart: 02-28-2024 End: 32-89-4024qdcvuuuhtxUrbkzifcgHolmes County [facility] Work Phone: Start: 02-28-2024 End: 86-34-0169Rgmtjoc encounter procedureAn[facility] Work Phone: Start: 12-05-2023 End: 34-23-3418nhsvreymrpTjlkhupjgHolmes County [facility] Work Phone: Start: 12-05-2023 End: 67-51-6641Suaafwz encounter procedureAnson [facility] Work Phone: Start: 12-03-2023 End: 89-96-1642Lyhhcrxab encounterAnnel Ivana Yuen EMT P-SENIOR INTERNET SALES CONSULTANT Work Phone: [facility] MedicineStart: 08-02-2023 End: 21-05-2974Fmbudq outpatient visit 15 minutesAnnel Ivana Yuen EMT P-SENIOR INTERNET SALES CONSULTANT Work Phone: [facility] Family MedicineComment on above:Acute non-recurrent maxillary sinusitis (Primary Dx); Non-recurrent acute serous otitis media of both ears; Elevated blood pressure readingStart: 01-10-2023 End: 28-96-4761rxlbzqjtuaOGSI Concha [facility] Hospitaltart: 01-10-2023 End: 95-39-5786Bjlbrbrynu hospital visit by physicianAnnel Yuen EMT P - HOSPICE RN Work Phone: [facility] LaboratoryStart: 02-26-2022 End: 05-05-5439vbuqnewbevUI ABAD FAZIOFacility:K7Orozb: 92-48-4270Ylxtkmzsi for preprocedural laboratory examinationDR ABAD [facility]ertart: 06-30-2021 End: 38-85-1855rgswiqdrpkHI ABAD FAZIOFacility:A9Lmzdd: 54-36-5835Yzgggtjhf for other preprocedural examinationDR ABAD [facility] HospitalStart: 06-27-2021 End: 03-67-3322vryslqfhjvBE ABAD FAZIOFacility:X2Kpitd: 06-27-2021 End: 42-84-5210Drluejtka for preprocedural laboratory examinationDR ABAD JESIKA Facility:W9Posza: 06-21-2021 End: 88-92-1853jmvjdwchmxPL ABAD FAZIOFacility:Y1Iypka: 06-21-2021 End: 59-19-9285Wetfwwlcq for other preprocedural examinationDR [facility] Facility:H1 Procedures DateProcedureProcedure DetailPerforming ClinicianStart: 71-66-6282Pxemm dip stick/tablet rgnt non-auto w/o micrscpCorey Jesika DO Work Phone: Start: 88-68-5541Jdfaw dip stick/tablet rgnt non-auto w/o micrscpAmy Gregorio MIX Work Phone: Start: 52-17-7473Iljuu dip stick/tablet rgnt non-auto w/o micrscpKrkylah Roy NP Work Phone: Start: 14-76-7962VUY,APTIMA HPV,AGE GDLNCorey Jesika DO Work Phone: Start: 92-10-6347FFZ, SERUM, OPEN SPINA BIFIDAAmaria alejandra MIX Work Phone: Start: 20-16-5743QPGBJDTLX VAGINITIS (HTRX)Shagufta MIX Work Phone: Start: 49-91-9905Ntvrk dip stick/tablet rgnt non-auto w/o micrscpAmy Gregorio MIX Work Phone: Start: 01-91-1007Rrgwt dip stick/tablet rgnt non-auto w/o micrscpCorey Jesika DO Work Phone: Start: 40-05-6403AB OB TRANSVAGINALCorey Jesika DO Work Phone: Start: 57-49-8103ZMG HEMOGLOBIN T6ZEvlqn Jesika DO Work Phone: Start: 01-21-2025 End: 54-86-1633Bruiu dip stick/tablet rgnt non-auto w/o micrscpCorey Jesika DO Work Phone: Start: 16-64-1008Zzeta dip stick/tablet rgnt non-auto w/o micrscpKrkylah Roy ORDER CHECKER Work Phone: Start: 30-83-2012BCJ CBC WITH AUTO DIFFCorey Jesika DO Work Phone: Start: 12-01-2024 End: 45-62-1101Onmfu dip stick/tablet rgnt non-auto w/o micrscpCorey Jesika DO Work Phone: Start: 63-54-3080HAF,APTIMA HPV,AGE GDLNCorey Jesika DO Work Phone: Start: 97-50-9501Bmsjt depression screening assessment Annel Yuen EMT P-SENIOR INTERNET SALES CONSULTANT Work Phone: Start: 31-29-2500Fchcelwmack observation [Identifier] in Cervix by Cyto stainAnnel Yuen EMT P-SENIOR INTERNET SALES CONSULTANT Work Phone: Start: 89-05-0481Gkywlaxnpnxxa metabolic panelUnknown Provider Result Plan of Treatment DateCare ActivityDetailAuthorStart: 66-49-2102Oldxtmzuk for malignant neoplasm of cervixPap SmearProPerformance Genomicsca [facility] SystemStart: 07-06-2025 End: 81-93-0049Tvnxdec encounter svhviikne57/25/2025 10:40 AM EST Routine [facility] [address] [place] [phone] Abad Canchola DO [address] [place] [address] NOMFatimah [place] OBGYNStart: 06-28-2025 End: 14-37-6860Hnqrays encounter kanwfjkqj91/17/2025 3:30 PM EST Routine [facility] [address] [id number] Say Roy, ORDER CHECKER [address] [place] [phone] NOMFatimah [place] OBGYNStart: 06-21-2025 End: 58-31-1137Qgyhvkd encounter ipckjtpuy14/10/2025 3:30 PM EST Routine [facility] [address] [place], [id number] Abad Canchola DO [address] [place] [address] [facility] OBGYNStart: 06-21-2025 End: 92-53-1996Djcnmgkmcnpj / ancillary services xiscusehuj12/10/2025 3:00 PM EST Ancillary Procedure [facility] [address] [place] [phone] [facility] [place] [facility]BGYNStart: 06-21-2025 End: 75-85-0361Icvbirk aminotransferase [Enzymatic activity/volume] in Serum or PlasmaALT Lab Routine induced hypertension, antepartum (HHS-HCC) Expected: 06/21/2025 (Approximate), Expires: 06/21/2026NONV HealthcareComment on above:Expected: 06/21/2025 (Approximate), Expires: 06/21/2026Start: 06-21-2025 End: 12-71-2002Vtvepxjdu aminotransferase [Enzymatic activity/volume] in Serum or PlasmaAST Lab Routine induced hypertension, antepartum (HHS-HCC) Expected: 06/21/2025 (Approximate), Expires: 06/21/2026NONV HealthcareComment on above:Expected: 06/21/2025 (Approximate), Expires: 06/21/2026Start: 06-21-2025 End: 15-42-4943RSF W Auto Differential panel - BloodCBC and differential Lab Routine induced hypertension, antepartum (HHS-HCC) Expected: 06/12 (Approximate), Expires: 06/21/2026NONV HealthcareComment on above: Expected: 06/21/2025 (Approximate), Expires: 06/21/2026Start: 06-21-2025 End: 48-21-9952Dpctyhkqjs [Mass/volume] in Serum or PlasmaCreatinine Lab Routine induced hypertension, antepartum (HHS-HCC) Expected: 06/21/2025 (Ap proximate), Expires: 06/21/2026[facility] Work Phone: comment on above:Expected: 06/21/2025 (Approximate), Expires: 06/21/2026Start: 06-21-2025 End: 66-44-3342Ugvhadm dehydrogenase [Enzymatic activity/volume] in Serum or Plasma by Lactate to pyruvate reactionLactate dehydrogenase Lab Routine induced hypertension, antepartum (HHS-HCC) Expected: 06/21/2025, Expires: 06/21/2026[facility] HealthcareComment on above:Expected: 06/21/2025, Expires: 06/21/2026Start: 06-21-2025 End: 77-29-6314Hlfkprs, urine, 24 hourProtein, urine, 24 hour Lab Routine induced hypertension, antepartum (HHS-HCC) Expected: 06/21/2025 (Approximate), Expires: 06/21/2026[facility] HealthcareComment on above:Expected: 06/21/2025 (Approximate), Expires: 06/21/2026Start: 06-21-2025 End: 09-70-8921Ea and pttPt and ptt Lab Routine induced hypertension, antepartum (HHS-HCC) Expected: 06/21/2025, Expires: 06/21/2026[facility] Healthcare Comment on above:Expected: 06/21/2025, Expires: 06/21/2026Start: 06-21-2025 End: 32-81-8634Eerjt [Mass/volume] in Serum or PlasmaUric acid Lab Routine induced hypertension, antepartum (HHS-HCC) Expected: 06/21/2025 (Hilary roximate), Expires: 06/21/2026[facility] HealthcareComment on above:Expected: 06/21/2025 (Approximate), Expires: 06/21/2026Start: 06-21-2025 End: 22-85-7270Dvkh nitrogen [Mass/volume] in Serum or PlasmaBUN Lab Routine induced hypertension, antepartum (HHS-HCC) Expected: 06/21/2025, Expires:06/21/2026[facility] HealthcareComment on above:Expected: 06/21/2025, Expires: 06/21/2026Start: 06-08-2025 End: 72-87-7244GT for pregnancyUS OB follow up transabdominal approach Imaging Routine size inconsistent with dates ([facility]) Expected: 06/08/2025, Expires: 10/09/2025[facility] Healthcare Work Phone: comment on above:Expected: 06/08/2025, Expires: 10/09/2025Start: 06-08-2025 End: 02-54-9002Jmxvkor encounter atulehtzl16/28/2025 8:30 AM EDT Routine [facility] [address] [place], [id number] Shagufta Oneal PA [address] [place], [place] [phone] ArrivedNO Logan OBGYNComment on above:ArrivedStart: 05-12-2025 End: 12-97-6385BAL panel - Blood by Automated countCBC Lab Routine Diabetes mellitus screening Expected: 05/12/2025 (Approximate), Expires: 05/12/2026[facility] Work Phone: comment on above:Expected: 05/12/2025 (Approximate), Expires: 05/12/2026Start: 05-12-2025 End: 07-20-3781Nvvorfpudas of glucose 1 hour after glucose challenge for glucose tolerance testGlucose tolerance, 1 hour Lab Routine Diabetes mellitus screening Expected: 05/12/2025 (Approximate), Expires: 05/12/2026[facility] HealthcareComment on above:Expected: 05/12/2025 (Approximate), Expires: 05/12/2026Start: 05-12-2025 End: 26-39-7494Hlrchos encounter procedureNOMS Ford OBGYNComment on above: ArrivedStart: 04-15-2025 End: 33-08-3007Krasdym encounter procedureNOMS [place] OBGYNComment on above: ArrivedStart: 38-31-0746MVHID-19 Vaccine ( season)COVID-19 Vaccine ( season)NOMS HealthcareStart: 58-18-4305Mzmpyigxt vaccinationNONV HealthcareStart: 04-08-2025 End: 35-88-7148Qinpvmhyokyz / ancillary services efucagzzor93/28/2025 8:00 AM EDT Ancillary Procedure [facility] [place] [facility] [address] [address] [facility]In[facility] Vinelandue OBGYNStart: 04-05-2025 End: 36-71-4675Vlisbnw encounter dovjxuetb96/25/2025 10:20 AM EDT Office Visit [facility] [address] [phone] Abad Canchola DO [address] [place] [address] NOMS BCP OBStart: 03-18-2025 End: 19-97-1726Veqrv fetoprotein, maternalAlpha fetoprotein, maternal Lab Routine 17 weeks gestation of ([facility]) Second trimester ([facility]) Expected: 03/18/2025 (Approximate), Expires: 04/18/2025[facility] Comment on above:Expected: 03/18/2025 (Approximate), Expires: 04/18/2025Start: 03-18-2025 End: 67-52-4070YB for pregnancyUS OB 14+ weeks anatomy scan Imaging Routine Screening, , for anatomic survey ([facility]) Expected: 03/18/2025, Expires: 06/18/2025[facility] HealthcareComment on above:Expected: 03/18/2025, Expires: 06/18/2025Start: 03-18-2025 End: 73-90-9974Ywrhoww encounter npdkoibzy00/07/2025 10:30 AM EDT Routine [facility] [address] [place] [phone] Shagufta Oneal PA [address] [place], [place] [phone] NOMS BCP OBStart: 03-18-2025 End: 89-03-1026Qqmocdjsluxe / ancillary services mmofpdrvzc47/07/2025 10:00 AM EDT Ancillary Procedure [facility] OB [address] [place], [place] [phone] NOMS BCP OBStart: 45-12-0754Mzrimmcdr vaccinationFlu vaccine (#1)Huseyin Ennis [facility] HospitalStart: 02-18-2025 End: 96-45-2228Pdwtiic encounter dajfhqmrh50/10/2025 8:40 AM EDT Routine [facility] [address] [address] Abad Canchola, [address] [place] [address] NOMS BCP OBStart: 01-21-2025 End: 05-80-1648BGM/RhABO/Rh Lab Routine Missed menses , unspecified gestational age ([facility]) Expected: 01/21/2025 (Approximate), Expires: 01/21/2026NONV HealthcareComment on above:Expected: 01/21/2025 (Approximate), Expires: 01/21/2026Start: 01-21-2025 End: 11-55-5662yexgsrwxad80/12/2025 2:00 PM EDT Initial NOM[facility] [address] [place] [address] NOMS BCP OBStart: 01-21-2025 End: 12-46-1443Zmrnv type and Indirect antibody screen panel - BloodType and screen Lab Routine Missed menses , unspecified gestational age ([facility]) Expected: 01/21/2025 (Approximate), Expires: 01/21/2026[facility] Work Phone: comment on above:Expected: 01/21/2025 (Approximate), Expires: 01/21/2026Start: 01-21-2025 End: 43-48-4750Leayc of abuse panel - Urine by Screen methodRapid drug screen, urine Lab Routine , unspecified gestational age ([facility]) Encounter for supervision of normal first in first trimester ([facility]) Expected: 01/21/2025 (Approximate), Expires: 01/21/2026NOMS HealthcareComment on above: Expected: 01/21/2025 (Approximate), Expires: 01/21/2026Start: 01-21-2025 End: 99-19-3295Mcbaksnuuhpx / ancillary services vqjuqocmgn20/12/2025 1:30 PM EDT Ancillary Procedure [facility] OB [address] [address] EMAW BCP OBStart: 12-17-2024 End: 61-63-6871Snsdwbrbqaac / ancillary services rlygqojljm48/08/2025 8:00 AM EDT Ancillary Procedure [facility] OB [address] [place] [address] OQUD BCP OBStart: 12-01-2024 End: 83-94-0909Lsqamubcbutko hormone (AMH)Antimullerian hormone (AMH) Lab Routine Abnormal uterine bleeding (AUB) Endometriosis Expected: 12/01/2024 (Approximate), Expires: 12/01/2025NOMS HealthcareComment on above:Expected: 12/01/2024 (Approximate), Expires: 12/01/2025Start: 12-01-2024 End: 50-62-4347ZZSICZWP Lab Routine PCOS (polycystic ovarian syndrome) Expected: 12/01/2024 (Approximate), Expires: 12/01/2025NOMS HealthcareComment on above: Expected: 12/01/2024 (Approximate), Expires: 12/01/2025Start: 12-01-2024 End: 54-80-1428MV PelvisUS Pelvis w/ TV Imaging Routine PCOS (polycystic ovarian syndrome) Expected: 12/01/2024, Expires: 12/01/2025NOMS HealthcareComment on above:Expected: 12/01/2024, Expires: 12/01/2025Start: 42-27-2696Sicje BMI ScreeningAdult BMI ScreeningProBarnesville Hospitaltart: 88-19-5590Luvrnqnoiy ScreeningDepression ScreeningNationwide Children's Hospital SystemStart: 09-64-0003Xrwivhv ScreeningTobacco ScreeningNationwide Children's Hospital SystemStart: 99-02-9586LYMPH-19 Vaccine ( season)COVID-19 Vaccine ( season)Huseyin Ennis [facility] HealthStart: 30-36-1916Zlqdfdfvm vaccinationNONV HealthcareStart: 07-87-2359Zvuwm BMI Follow Up PlanAdult BMI Follow Up PlanNationwide Children's Hospital SystemStart: 60-30-7318Afzlj BMI ScreeningAdult BMI ScreeningNationwide Children's Hospital SystemStart: 03-73-4093Nqyiceejk for Chlamydia trachomatisChlamydia Screening [facility] DaytonComment on above:Postponed from 1999 (Not Indicated)Start: 96-12-1836Oivmgnneq vaccinationInfluenza VaccineNationwide Children's Hospital SystemStart: 41-72-6671Bwpwpzeom vaccinationFlu vaccine (Season Ended) W[place]ANDOTStart: 77-15-4667VJyA,Tdap and Td Vaccines (7 - Td or Tdap)DTaP,Tdap and Td Vaccines (7 - Td or Tdap)[facility] SystemStart: 65-06-0123IGoW/Tdap/Td vaccine (1 - Tdap)DTaP/Tdap/Td vaccine (1 - Tdap)[place]OTStart: 2018 Hepatitis B Vaccines (1 of 3 - 19+ 3-dose series)Hepatitis B Vaccines (1 of 3 - 19+ 3-dose series)[facility]OMS HealthcareStart: 91-89-5328JAI Vaccines (1 - 3-dose series)HPV Vaccines (1 - 3-dose series)NOMS HealthcareStart: 37-36-5134Vqjxndg of varicella vaccinationVaricella Vaccines (1 of 2 - 13+ 2-dose series)NOMS HealthcareStart: 64-59-5981GYdQ/Tdap/Td Vaccines (1 - Tdap)DTaP/Tdap/Td Vaccines (1 - Tdap)NOMS HealthcareStart: 49-33-5666MDS Vaccines (1 of 1 - Standard series)MMR Vaccines (1 of 1 - Standard series)NOMS HealthcareStart: 03-20-2000 COVID-19 Vaccine (#1)COVID-19 Vaccine (#1)WYANDOTBacteria identified in Urine by CultureUrine culture Microbiology Routine Missed menses Ordered: 01/21/2025[facility] HealthcareComment on above:Ordered: 01/21/2025BC W Auto Differential panel - BloodCBC and differential Lab Routine PCOS (polycystic ovarian syndrome) Ordered: 12/01/2024[facility] HealthcareComment on above:Ordered: 12/01/2024BC W Auto Differential panel - BloodCBC and differential Lab Routine Missed menses , unspecified gestational age ([facility]) Ordered: 01/21/2025[facility] HealthcareComment on above:Ordered: 01/21/2025HLAMYDIA TRACHOMATIS (GENITO/STI) CHLAMYDIA TRACHOMATIS (GENITO/STI) Lab Routine Exposure to STD Ordered: 03/18/2025[place] HealthcareComment on above:Ordered: 03/18/2025HLAMYDIA TRACHOMATIS (GENITO/STI)CHLAMYDIA TRACHOMATIS (GENITO/STI) Lab Routine Vaginal discharge during , antepartum ([facility]) Ordered: 04/15/2025[facility] HealthcareComment on above:Ordered: 04/15/2025ytology Cervical or vaginal smear or scraping studyPap Smear Pathology and Cytology Routine Second trimester ([facility]) 21 weeks gestation ofpregnancy ([facility]) Ordered: 04/15/2025 [facility] Healthcare Work Phone: comment on above:Ordered: 04/15/2025DHEA-sulfateDHEA- sulfate Lab Routine PCOS (polycystic ovarian syndrome) Ordered: 12/01/2024[facility] HealthcareComment on above:Ordered: 12/01/2024Follicle stimulating hormone Follicle stimulating hormone Lab Routine PCOS (polycystic ovarian syndrome) Ordered: 12/01/2024[facility] HealthcareComment on above:Ordered: 12/01/2024hCG, quantitative, pregnancyhCG, quantitative, Lab Routine PCOS (polycystic ovarian syndrome) Ordered: 12/01/2024[facility] Work Phone: comment on above:Ordered: 12/01/2024Hemoglobin A1c/Hemoglobin.total in BloodHemoglobin A1c Lab Routine Abnormal uterine bleeding (AUB) Endometriosis Ordered: 12/01/2024[facility] HealthcareComment on above: Ordered: 12/01/2024Hemoglobin A1c/Hemoglobin.total in BloodHemoglobin A1c Lab Routine Missed menses , unspecified gestational age ([facility]) Ordered: 01/21/2025[facility] HealthcareComment on above:Ordered: 01/21/2025Hepatitis B virus surface Ag [Presence] in Serum or Plasma by ImmunoassayHepatitis B surface antigen Lab Routine Missed menses , unspecified gestational age ([facility]) Ordered: 01/21/2025[facility] HealthcareComment on above:Ordered: 01/21/2025 Hepatitis C virus Ab [Presence] in Serum or Plasma by ImmunoassayHepatitis C antibody Lab Routine Missed menses , unspecified gestational age ([facility]) Ordered: 01/21/2025[facility] HealthcareComment on above:Ordered: 01/21/2025 HIV-1/HIV-2 antigen/antibody combination immunoassayHIV-1 and HIV-2 antibodies Lab Routine Missed menses , unspecified gestational age ([facility]) Ordered: 01/21/2025[facility] HealthcareComment on above:Ordered: 01/21/2025 Luteinizing hormoneLuteinizing hormone Lab Routine PCOS (polycystic ovarian syndrome) Ordered: 12/01/2024[facility] HealthcareComment on above:Ordered: 12/01/2024 Neisseria gonorrhoeae DNA [Presence] in Unspecified specimen by SANJANA with probe detectionNeisseria gonorrhea DNA probe, direct Lab Routine Exposure to STD Ordered: 03/18/2025[facility] HealthcareComment on above:Ordered: 03/18/2025Neisseria gonorrhoeae DNA [Presence] in Unspecified specimen by SANJANA with probe detection Neisseria gonorrhea DNA probe, direct Lab Routine Vaginal discharge during , antepartum ([facility]) Ordered: 04/15/2025[facility] HealthcareComment on above:Ordered: 04/15/2025Protein/Creatinine [Mass Ratio] in Urine Protein:Creatinine Ratio, Urine Lab Routine induced hypertension, antepartum ([facility]) Ordered: 06/21/2025[facility] HealthcareComment on above:Ordered: 06/21/2025 End: [id number] [facility] Phone: Comment on above:Once for 1 Occurrences starting 03/04/2025 until 03/04/2025Reagin Ab [Presence] in Serum by RPRRPR Lab Routine Missed menses , unspecified gestational age ([facility]) Ordered: 01/21/2025[facility] HealthcareComment on above:Ordered: 01/21/2025Rubella antibody, IgGRubella antibody, IgG Lab Routine Missed menses , unspecified gestational age ([facility]) Ordered: 01/21/2025[facility] HealthcareComment on above: Ordered: 01/21/2025SURESWAB(R) ADVANCED VAGINITIS PLUS, TMASURESWAB(R) ADVANCED VAGINITIS PLUS, TMA Pathology and Cytology Routine Vaginal discharge Ordered: 0 03/18/2025[facility] Work Phone: comment on above:Ordered: 03/18/2025SURESWAB(R) ADVANCED VAGINITIS PLUS, TMASURESWAB(R) ADVANCED VAGINITIS PLUS, TMA Pathology and Cytology Routine Vaginal discharge during , antepartum ([facility]) Ordered: 04/15/2025[facility] HealthcareComment on above:Ordered: 04/15/2025 Thyrotropin [Units/volume] in Serum or PlasmaTSH Lab Routine PCOS (polycystic ovarian syndrome) Ordered: 12/01/2024[facility] HealthcareComment on above:Ordered: 12/01/2024Thyroxine (T4) free [Mass/volume] in Serum or PlasmaT4, free Lab Routine PCOS (polycystic ovarian syndrome) Ordered: 12/01/2024[facility] Comment on above:Ordered: 12/01/2024 Immunizations Immunization DateImmunizationNotesCare OvuptojvOypxhzwv72-04-0657xrxcyehqj, injectable, quadrivalent, preservative freeMary Kuns EMT P-SENIOR INTERNET SALES CONSULTANT Work Phone: [facility]LRN [facility] HospitalBzocxe34-29-1991rjcjvyhqx virus vaccine, unspecified formulationMary Kuns EMT P-SENIOR INTERNET SALES CONSULTANT Work Phone: [facility] DaytonFzsxoi23-47-2895KLRRZ-20, mRNA, LNP- S, PF, 100mcg/0.5mL DoseMary Kuns EMT P-SENIOR INTERNET SALES CONSULTANT Work Phone: [facility] DaytonTfsipx06-19-4352UICKI-32, mRNA, LNP- S, PF, 100mcg/0.5mL DoseAnnel Yuen EMT P-SENIOR INTERNET SALES CONSULTANT Work Phone: [facility] DaytonEqnovs71-12-4617lujeglmor, injectable, quadrivalent, preservative freeAnnel Yuen EMT P-SENIOR INTERNET SALES CONSULTANT Work Phone: [facility] DaytonPzoqxw80-63-6436awiuyypnp A vaccine, pediatric/adolescent dosage, 2 dose scheduleAnnel Yuen EMT P-SENIOR INTERNET SALES CONSULTANT Work Phone: [facility]07-28-2017Human Papillomavirus 9-valent vaccineAnnel Yuen EMT P-SENIOR INTERNET SALES CONSULTANT Work Phone: [facility] DaytonIlygdz14-40-6790tknqpwvtbngcz oligosaccharide (groups A, C, Y and W-135) diphtheria toxoid conjugate vaccine (MCV4O)Annel Yuen EMT P-SENIOR INTERNET SALES CONSULTANT Work Phone: [facility]10-30-2012human papilloma virus vaccine, quadrivalentAnnel Yuen EMT P-SENIOR INTERNET SALES CONSULTANT Work Phone: [facility] Ofqmjq36-12-0237ujkyoywaobsmk polysaccharide (groups A, C, Y and W-135) diphtheria toxoid conjugate vaccine (MCV4P)Annel Yuen EMT P-SENIOR INTERNET SALES CONSULTANT Work Phone: [facility] DaytonSifisu52-55-7006nlowtcdwh virus vaccineAnnel Yuen EMT P-SENIOR INTERNET SALES CONSULTANT Work Phone: [facility] DaytonCssxgz11-16-3401hpxlyrlfz A vaccine, pediatric/adolescent dosage, 2 dose scheduleAnnel Yuen EMT P-SENIOR INTERNET SALES CONSULTANT Work Phone: [facility]09-12-2012human papilloma virus vaccine, quadrivalentAnnel Yuen EMT P-SENIOR INTERNET SALES CONSULTANT Work Phone: [facility]09-12-2012tetanus toxoid, reduced diphtheria toxoid, and acellular pertussis vaccine, adsorbedAnnel Yuen EMT P-SENIOR INTERNET SALES CONSULTANT Work Phone: [facility] DaytonFnehug02-77-3744rsyspbmqjq, tetanus toxoids and acellular pertussis vaccine, unspecified 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 Yuen EMT P-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 SALES CONSULTANT Work Phone: [facility]07-07-2005measles, mumps and rubella virus vaccineAnnel Yuen EMT P-SENIOR INTERNET SALES CONSULTANT Work Phone: [facility] DaytonTovtkz70-85-0532aavxtrqxvv vaccine, inactivatedAnnel Yuen EMT P-SENIOR INTERNET SALES CONSULTANT Work Phone: [facility] DaytonNnlsxb83-01-2759mvplqmjain, tetanus toxoids and acellular pertussis vaccine, unspecified 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 Yuen EMT P-SENIOR INTERNET SALES CONSULTANT Work Phone: [facility] DaytonHbsvwt76-82-9906czxvggyqubx influenzae type b conjugate and Hepatitis B vaccineAnnel Yuen EMT P-SENIOR INTERNET SALES CONSULTANT Work Phone: [facility]04-26-2001measles, mumps and rubella virus vaccineAnnel Yuen EMT P-SENIOR INTERNET SALES CONSULTANT Work Phone: [facility] DaytonSudhzx25-93-6615zxalgnfvjt vaccine, inactivatedAnnel Yuen EMT P-SENIOR INTERNET SALES CONSULTANT Work Phone: [facility] DaytonXjhyfu68-74-8783enkoxlbvq virus vaccineAnnel Yuen EMT P-SENIOR INTERNET SALES CONSULTANT Work Phone: [facility] DaytonPqsrgr33-27-6932mnmfcpfhzq, tetanus toxoids and acellular pertussis vaccine, unspecified 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 Yuen EMT P-SENIOR INTERNET SALES CONSULTANT Work Phone: [facility] DaytonWbkijw22-94-3540yuqstdlvhjb influenzae type b vaccine, PRP-OMP conjugateAnnel Yuen EMT P-SENIOR INTERNET SALES CONSULTANT Work Phone: [facility] DaytonYqpyhd20-62-3763yrexocmqlo, tetanus toxoids and acellular pertussis vaccine, unspecified 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 Yuen EMT P-SENIOR INTERNET SALES CONSULTANT Work Phone: [facility] DaytonNjkvsx83-76-4663glmetinqwtj influenzae type b conjugate and Hepatitis B vaccineAnnel Yuen EMT P-SENIOR INTERNET SALES CONSULTANT Work Phone: [facility] DaytonBjafqc80-04-8425apmtljgkeu vaccine, inactivatedAnnel Yuen EMT P-SENIOR INTERNET SALES CONSULTANT Work Phone: [facility] DaytonSfusky56-45-2579upkprcwwld, tetanus toxoids and acellular pertussis vaccine, unspecified 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 Yuen EMT P-SENIOR INTERNET SALES CONSULTANT Work Phone: [facility] DaytonAvnvwk89-57-4545izvvonmypdn influenzae type b conjugate and Hepatitis B vaccineAnnel Yuen EMT P-SENIOR INTERNET SALES CONSULTANT Work Phone: [facility] DaytonZpnbad10-34-0419xhsqyxoguj vaccine, inactivatedAnnel Yuen EMT P-SENIOR INTERNET SALES CONSULTANT Work Phone: [facility] Payers DatePayer CategoryPayerPolicy [id number] [place] [employer] [id number] [id number] Health [id number] [id number] 1.2.840.915846.1.13.239.2.7.3.585069. Medicaid1.2.840.220850.1.13.693.2.7.3.794583.52267-37-8584Ulhjcsi Health Insurance1.2.840.219390.1.13.693.2.7.9.600023.132347.56600-12-9695Umnpqlj 1.2.840.627778.1.13.693.2.7.3.587[id number] 2.16.840.1.832914.3.57[id number] 2.16.840.1.498191.3.57[id number] 2.16.840.1.612207.3.57[id number] 2.16.840.1.784584.3.579.2.61[id number] 2.16.840.1.015798.3.57[id number] 2.16.840.1.955432.3.57[id number] 2.16840.1.522225.3.57[id number] 2.16.840.1.704162.3.57[id number] 2.16.840.1.690814.3.579.[id number] 2.16.840.1.145583.3.57[id number] 2.16.840.1.691778.3.57[id number] 2.16.840.1.616067.3.57[id number] 2.16.840.1.225049.3.579.[id number] 2.16.840.1.020515.3.57[id number] 2.16.840.1.976774.3.57[id number] 2.16.840.1.045620.3.57[id number] 2.16.840.1.643026.3.57[id number] 2.16.840.1.782189.3.57[id number] 2.16.840.1.344216.3.579.2.450063-76-4809Qdxrxzz Health [id number] [id number] IdjvnlowhYDO0155 05a57piy-[id number] Social History DateTypeDetailFacilityTobacco smoking status NHISTobacco smoking consumption unknownWYANDOT Work Phone: start: 49-57-8992Hrq Assigned At BirthNot on file [facility] Work Phone: start: 03-03-2023 End: 46-35-6016Hvbjcik smoking status NHISNever smoked tobacco (finding) [facility] 31-71-7612Tfw Assigned At BirthFemale [facility]: 03-25-2024 End: 37-48-5116Vsblaqduq beverage intakeLifetime non-drinker (finding)[facility] HealthcareStart: 03-25-2024 End: 42-49-0810Eetwedw of Social functionProMediCleveland Clinic Fairview Hospital SystemStart: 03-25-2024 End: 27-62-7253Qbcuigi use panelProMckitrick Hospital SystemStart: 49-84-8357Wfuhjxq use and exposureSmokeless tobacco non-userProMckitrick Hospital SystemStart: 23-59-6570Zagzwrc intakeEx-drinker (finding)[facility] SystemStart: 42-59-3047Cgd hard is it for you to pay for the very basics like food, housing, medical care, and heatingNot hard at [facility] RiverBendZettics SystemStart: 05-04-2022 Gender identityIdentifies as female gender (finding)[facility] Start: 46-26-8324JeuosufpwOQLYMaury Regional Medical Center, ColumbiaStart: 89-29-9434BouSgxsmr (finding)[facility] Clinical Notes 06-30-2021 to 06-21-2025 Note Date & GrbgRjsnQugodnaq20-38-2274 History of Present illness Narrative* Cecilia Khan, MANAGER PRIMARY CARE - 06/21/2025 3:40 PM EST Reason for [...] nursing note reviewed. Exam conducted with a accounts payable assistant present. Vitals: Estimated body mass index is 35.19 kg/m as calculated from the following: Height as of 09/24/19: 5' 6 . Weight as of this encounter: 218 lb. BP: Patient's last menstrual period was 11/19/2024 (approximate). Assessment/Plan ICD-10-CM 1. 28 weeks gestation of ([facility]) Z3A.28 POCT urinalysis dipstick manually resulted 2. Third trimester ([facility]) Z34.93 POCT urinalysis dipstick manually resulted 3. induced hypertension, antepartum ([facility]) O13.9 Creatinine Protein, urine, 24 hour [...] of: Abad Canchola DO documented in this encounterMissouri Southern HealthcareMmcnjhjsgs07-54-1223 History of Present illness Narrative* DOMINGUEZ Villagran [...] nursing note reviewed. Exam conducted with a accounts payable assistant present. Vitals: Estimated body mass index is 34.4 kg/m as calculated from the following: Height as of 09/24/19: 5' 6 . Weight as of this encounter: 213 lb 1.9 oz. BP: 124/82 Patient's last menstrual period was 11/19/2024 (approximate). Assessment/Plan ICD-10-CM 1. 28 weeks gestation of ([facility]) Z3A.28 POCT urinalysis dipstick manually resulted 2. Second trimester ([facility]) Z34.92 POCT urinalysis dipstick manually resulted [...] behalf of: DOMINGUEZ Villagran documented in this encounterMissouri Southern HealthcareWfpjviefkr97-60-1702 History of Present illness Narrative* Say Roy [...] nursing note reviewed. Exam conducted with a accounts payable assistant present. Vitals: Estimated body mass index is 33.25 kg/m as calculated from the following: Height as of 09/24/19: 5' 6 . Weight as of 04/15/25: 206 lb. BP: Patient's last menstrual period was 11/19/2024 (approximate). ASSESSMENT & PLAN ICD-10-CM 1. 24 weeks gestation of ([facility]) Z3A.24 POCT urinalysis dipstick manually resulted 2. Second trimester ([facility]) Z34.92 3. Diabetes mellitus screening Z13.1 [...] of: Say Roy NP documented in this encounterMissouri Southern HealthcareZcwmmrqtnc39-65-9099 History of Present illness Narrative* Chelsie Arango [...] nursing note reviewed. Exam conducted with a accounts payable assistant present. Vitals: Estimated body mass index is 33.25 kg/m as calculated from the following: Height as of 09/24/19: 5' 6 . Weight as of this encounter: 206 lb. BP: 116/72 Patient's last menstrual period was 11/19/2024 (approximate). ASSESSMENT & PLAN ICD-10-CM 1. Second trimester ([facility]) Z34.92 Pap Smear 2. 21 weeks gestation of ([facility]) Z3A.21 Pap Smear 3. Nausea and vomiting during ([facility]) O21.9 metoclopramide (Reglan) 10 MG tablet 4. Vaginal discharge during , antepartum ([facility]) O26.899 N89.8 Return OB/Annual Exam: Patient [...] of: Abad Canchola DO documented in this encounterMissouri Southern HealthcareNpkhgpcwxf43-85-6499 History of Present illness Narrative* DOMINGUEZ Villagran [...] PLAN ICD-10-CM 1. 17 weeks gestation of ([facility]) Z3A.17 POCT urinalysis dipstick manually resulted Alpha fetoprotein, maternal Alpha fetoprotein, maternal 2. Second trimester ([facility]) Z34.92 POCT urinalysis dipstick manually resulted Alpha fetoprotein, maternal Alpha fetoprotein, maternal 3. Subchorionic hematoma in first trimester, single or unspecified fetus ([facility]) O41.8X10 O46.8X1 4. Screening, , for anatomic survey ([facility]) Z36.89 US OB 14+ weeks anatomy [...] behalf of: DOMINGUEZ Villagran documented in this encounterMissouri Southern HealthcareXuygjizgyo59-97-1447 Note ADDENDUM #1 Current examination demonstrated an [...] Delivery: 08/26/25 Gestational Age as of 03/18/2025: 53h6d11-81-7735 History of Present illness Narrative* Chelsie Arango [...] nursing note reviewed. Exam conducted with a accounts payable assistant present. Vitals: Estimated body mass index is 33.25 kg/m as calculated from the following: Height as of 09/24/19: 5' 6 . Weight as of this encounter: 206 lb. BP: 124/76 Patient's last menstrual period was 11/19/2024 (approximate). ASSESSMENT & PLAN ICD-10-CM 1. Second trimester ([facility]) Z34.92 POCT urinalysis dipstick manually resulted 2. 13 weeks gestation of ([facility]) Z3A.13 New OB: Patient presents today [...] or undercooked meat, and stay away from [facility]. Patient has been consulted regarding any [...] of: Abad Canchola DO documented in this encounterMissouri Southern HealthcareQykximceqv19-50-5367 History of Present illness Narrative* Cris Gross [...] supervision of normal first in [facility] - Rapid drug screen, urine; Future Nurse Note: Pt unsure of doing the [place] billion to one lab. Advised if patient changes mind to make sure both labs and [place] done at the same time. PVU. OB [...] or undercooked meat, and stay away from [facility]. Patient has also been advised to [...] by: Cris Gross MA documented in this encounterMissouri Southern HealthcareLfopfuveae34-68-3941 History of Present illness Narrative* Say Roy [...] nursing note reviewed. Exam conducted with a accounts payable assistant present. Vitals: Estimated body mass index [...] of: Say Roy NP documented in this encounterMissouri Southern HealthcareRhtagqngii26-59-2836 History of Present illness Narrative* Misa Knight [...] nursing note reviewed. Exam conducted with a accounts payable assistant present. Vitals: Estimated body mass index [...] of: Abad Canchola DO documented in this encounterKevin Ville [address]Mbmveogbst52-24-9106 Miscellaneous Notes* Telephone Encounter - Lisa Tijerina - 12/03/2023 8:07 AM EDT ----- Message from YASMINE Singh sent at 03/05/2023 5:31 PM EDT ----- Regarding: wellness exam Due December of - Annel * Telephone Encounter - Lisa Tijerina - 12/03/2023 8:07 AM EDT Patient is switching pcp [facility] Tele[facility] encounter Note* Telephone Encounter - Lisa Tijerina - 12/03/2023 8:07 AM EDT ----- Message from YASMINE Singh sent at 03/05/2023 5:31 PM EDT ----- Regarding: wellness exam Due December of - Annel [facility]04-23-2024 Telephone encounter Note* Telephone Encounter - Lisa Tijerina - 12/03/2023 8:07 AM EDT Patient is switching pcp [facility]12-22-2023 History of Present illness Narrative* TinyYASMINE Valencia [...] YASMINE Singh 08/02/23 1251 documented in this encounterK[facility]11-19-20[address] [place] NAME: MEREDITH ANTONIO DATE OF : MEDICAL REC#: [id number] 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 PREOPERATIVE DIAGNOSES: 1. Pelvic pain. 2. Menorrhagia. 3. Dysmenorrhea. POSTOPERATIVE DIAGNOSES: 1. Pelvic pain. 2. Menorrhagia. 3. Dysmenorrhea. 4. Endometriosis posterior cul-de-sac. ANESTHESIA: General. SURGEON: Abad Canchola DO PROPERTY COORDINATOR: CECILIO Mendoza URINE OUTPUT: Yellow and clear. [...] Abad Canchola DO on 07/03/2021 09:18 AM [facility] Signed and Approved by: DR ABAD CANCHOLA . 07/03/2021 09:18:00[facility]Evaluation noteNo assessment information availableAvita Health System Work Phone: Evaluation note* Diagnosis Onset Date Resolution Status Anxiety and depression acute [facility] Work Phone: Evaluation note* Diagnosis Acute non-recurrent maxillary sinusitis- Primary Non-recurrent acute serous otitis media of both ears Elevated blood pressure reading Elevated blood pressure reading without diagnosis of hypertension documented in this encounter [facility] SystemEvaluation note* Diagnosis Female infertility Female infertility of unspecified origin PCOS (polycystic ovarian syndrome) Polycystic ovaries Abnormal uterine bleeding (AUB) Endometriosis Endometriosis, site unspecified Insulin resistance Other abnormal glucose documented in this encounter [facility] HealthcareEvaluation note* Diagnosis Amenorrhea Absence of menstruation Missed menses , unspecified gestational age ([facility]) Encounter for supervision of normal first in first trimester ([facility]) documented in this encounter [facility]Evaluation note* Diagnosis Nausea and vomiting during - Primary Currently in first trimester with unknown gestational age Constipation, unspecified constipation type documented in this encounter [facility]* Diagnosis Second trimester ([facility]) state, incidental 13 weeks gestation of ([facility]) documented in this encounter [facility] note* Diagnosis 17 weeks gestation of ([facility]) Second trimester ([facility]) state, incidental Subchorionic hematoma in first trimester, single or unspecified fetus ([facility]) Screening, , for anatomic survey ([facility]) Encounter for anatomic survey Exposure to STD Vaginal discharge Leukorrhea, not specified as infective documented in this encounter [facility]* Diagnosis Second trimester ([facility]) state, incidental 21 weeks gestation of ([facility]) Nausea and vomiting during ([facility]) Vaginal discharge during , antepartum ([facility]) documented in this encounter [facility]* Diagnosis 24 weeks gestation of ([facility]) Second trimester ([facility]) state, incidental Diabetes mellitus screening Screening for diabetes mellitus documented in this encounter [facility]* Diagnosis size inconsistent with dates ([facility])- Primary 28 weeks gestation of ([facility]) Second trimester ([facility]) state, incidental documented in this encounter [facility]* Diagnosis 28 weeks gestation of ([facility]) Third trimester ([facility]) state, incidental induced hypertension, antepartum ([facility]) Transient hypertension of , antepartum documented in this encounter [facility] HealthcareInstructionsNot on filedocumented in this encounterProMediCleveland Clinic [facility]view Hospital SystemInstructionsNot on filedocumented in this encounterProMckitrick Hospital System Summary Purpose Family History No [...] and content) DATE CREATED AUTHOR 06/13/2022 [facility] DATE CREATED AUTHOR AUTHOR'S ORGANIZ ATION 08/09/2023 [facility] DATE CREATED AUTHOR AUTHOR'S ORGANIZ ATION 03/07/[address] [facility] DATE CREATED AUTHOR AUTHOR'S ORGANIZ ATION 06/24/2025 [facility] EPIC Care Teams (unrecognized sec tion and content) Team MemberRelationshipSpecialtyStart DateEnd Date Annel Yuen, EMT P - HOSPICE RN [address] [place] [address] [facility] - [facility] Practitioner01/10/23 Team Status: Active Member Role Status [...] DateEnd Date Michelle Pabon MD [address] [place] [id number] PCP - Generalmily Medicine03/25/24Team MemberRelationshipSpecialtyStart DateEnd Date Annel Yuen APRN-SENIOR INTERNET SALES CONSULTANT [address] [place] [address] PCP - GeneralFamily Medicine01/18/20Team MemberRelationshipSpecialtyStart DateEnd Date Michelle Pabon MD [address] [facility], [place] [address] PCP - GeneralFamily Medicine03/25/24Team MemberRelationshipSpecialtyStart DateEnd Date Michelle Pabon MD [address] [facility], [place] [address] PCP - GeneralFamily Medicine03/25/24Team MemberRelationshipSpecialtyStart DateEnd Date Michelle Pabon MD [address] [facility], [place] [address] PCP - GeneralFamily Medicine03/25/24Team MemberRelationshipSpecialtyStart DateEnd Date Michelle Pabon MD [address] [facility], [place] [address] PCP - GeneralFamily Medicine03/25/24Team MemberRelationshipSpecialtyStart DateEnd Date Michelle Pabon MD [address] [facility], [place] [address] PCP - GeneralFamily Medicine03/25/24Team MemberRelationshipSpecialtyStart DateEnd Date Michelle Pabon MD [address] [facility], [place] [address] PCP - GeneralFamily Medicine03/25/24Team MemberRelationshipSpecialtyStart DateEnd Date Michelle Pabon MD [address] [facility], [place] [address] PCP - GeneralFamily Medicine03/25/24Team MemberRelationshipSpecialtyStart DateEnd Date Michelle Pabon MD [address] [facility], [place] [address] PCP - GeneralFamily Medicine03/25/24Team MemberRelationshipSpecialtyStart DateEnd Date Michelle Pabon MD [address] [facility], [place] [address] PCP - GeneralFamily Medicine03/25/24Team MemberRelationshipSpecialtyStart DateEnd Date Annel Yuen APRN - [facility] [address] [place] [address] PCP - GeneralNurse Practitioner01/10/23Team MemberRelationshipSpecialtyStart Date End Date Michelle Pabon MD [address] [facility], [place] [address] PCP - GeneralFamily Medicine03/25/24Team MemberRelationshipSpecialtyStart DateEnd Date Michelle Pabon MD [address] [facility], [place] [address] PCP - GeneralFamily Medicine03/25/24Team MemberRelationshipSpecialtyStart DateEnd Date Michelle Pabon MD [address] [facility], [place] [address] PCP - GeneralFamily Medicine03/25/24Team MemberRelationshipSpecialtyStart DateEnd Date Michelle Pabon MD [address] [facility], [place] [id number] PCP - [facility]03/25/24Team MemberRelationshipSpecialtyStart DateEnd Date Michelle Pabon MD [address] [facility], [place] [address] PCP - [facility]03/25/24Te MemberRelationshipSpecialtyStart DateEnd Date Michelle Pabon MD [address] [facility], [place] [address] PCP - [facility]03/25/24Te MemberRelationshipSpecialtyStart DateEnd Date Michelle Pabon MD [address] [facility], [place] [address] PCP - [facility]03/25/24 Goals (unrecognized section and content) [...] BE BASED ON THE PRIMARY CLINICAL RECORDS. [facility]. provides no warranty or guarantee of the accuracy or completeness of information in this document.
[2025-07-15 16:25] VITALS: BP 133/87; PULSE 93
[2025-07-15 16:40] VITALS: BP 140/88; PULSE 93
== END 2025-07-15 17:06 | disposition home or self-care (01) ==
LOC: FBCO 16:02 → FBC 16:03
PROVIDERS: PCP Family Medicine; Visit Provider Obstetrics & Gynecology
DX: O16.3 Unspecified maternal hypertension, third trimester (principal); Z3A.34 34 weeks gestation of pregnancy
CPT/HCPCS: 59025

== ENCOUNTER 2025-07-19 15:54 | Outpatient (OUT) | payer OTHER, SELFPAY ==
--- NOTE | 2025-07-19 | US_ITS ---
[place] [id number] Patient Name: MEREDITH TEMPLETON MRN: [id number] date: 2000 Sex: F Assigned Patient Location: Current Patient Location: Accession/Order Number: [id number] Exam Date: 07/19/2025 16:43 Report Date: 07/19/2025 19:02 At the request of: SAY RAMIREZ Procedure: US OB BPP w non-stress Ultrasound biophysical profile INDICATION: Hypertension during COMPARISON: 07/12/2025 FINDINGS IMPRESSION: Cephalic position. heart rate 123 beats per minutes. VALENTINA: 10.6 cm. Biophysical profile score 8/8. Impression dictated by: Duncan Jones M.D. 07/19/2025 7:02 PM [facility]ict[facility] Electron[facility] authentic[facility] by: [id number] Y Date: 07/19/2025 19:02
--- OUTSIDE RECORDS SUMMARY | 2025-07-19 16:02 | XMS_ITS | CCD ---
Author Organization [facility] Care Team Providers Care Steam Tunnel Feeder Name Role Phone JESIKA, DR CALVIN Primary [...] Unavailable JESIKA, DR CALVIN Attending Unavailable Malick WADER BOOT TOP ASSEMBLER - SHERIFF SERGEANT, Annel Concha Primary Care Provider ANNEL TERESA Referring Unavailable MALICK, ANNEL Concha Primary Care Unavailable Michelle Pabon MD Primary Care Provider [phone] Malick WADER BOOT TOP ASSEMBLER-PRODUCTION RECORDER, Annel Heath Primary Care Provider Unavailable Primary Care Provider Michelle Hernandez MD Primary Care Provider [phone] Michelle Pabon MD Primary Care Provider [phone] Malick APARICIO - SHERIFF SERGEANT, Annel Concha Primary Care Provider RAFAEL LARA Referring Unavailable MALICK, ANNEL Kern Primary Care Unavailable Cm LAUGHLIN, Michelle Primary Care Provider [phone] ABAD CANCHOLA Attending Unavailable SAY ROY Attending Unavailable ABAD CANCHOLA Attending Unavailable SHAGUFTA PERKINS Attending Unavailable GREGORIO SHAGUFTA Referring Unavailable ABAD CANCHOLA Attending Unavailable SAY ROY Attending Unavailable GREGORIO, SHAGUFTA Attending Unavailable SAY ROY Referring Unavailable ABAD CANCHOLA Attending Unavailable Medications Current Medications MedicationDrug Class(es)DatesSig (Normalized)Sig (Original)amoxicillin 875 mg / clavulanate 125 mg oral tablet (1 source)Penicillin-class AntibacterialStart: 08-02-2023 End: 58-72-3746wyjj 1 tablet by mouth once in the morningamoxicillin-pot clavulanate (AUGMENTIN) 875-125 mg per tablet Take 1 tablet by mouth in the morningand 1 tablet before bedtime. Do all this for 7 days. 14 tablet 0 08/02/2023 08/09/2023 Activedocusate sodium 100 mg oral capsule (4 sources)Start: 01-13-2025 End: 65-99-3138znch 1 capsule by mouth in the morningdocusate sodium (Colace) 100 MG capsule Indications: Constipation, unspecified constipation type Take 1 capsule (100 mg) by mouth in the morning and 1 capsule (100 mg) before bedtime. Do all this for10 days. 20 capsule 01/13/2025 01/23/2025 Activeloratadine 10 mg oral tablet (6 sources) End: 01-21-8847cbqj 1 tablet by mouth once dailyloratadine (Claritin) 10 MG tablet Take 10 mg by mouth Daily 01/13/2025 Discontinuedlosartan potassium 25 mg oral tablet (5 sources)Angiotensin 2 Receptor BlockerStart: 02-28-2024 End: 78-34-1966qrim 25 mg by mouth once dailyLosartan Active 25 MG PO Daily February 28, 2024 12:00ammetFORMIN hydrochloride 500 mg oral tablet (6 sources)BiguanideStart: 12-01-2024 End: 58-23-9927ihgq 1 tablet by mouth at mealtimemetFORMIN (Glucophage) 500 MG tablet Indications: PCOS (polycystic ovarian syndrome) , Insulin resistance Take 1 tablet (500 mg) by mouth in the morning. Take with meals. 30 tablet 11 12/01/2024 01/13/2025 Discontinuedmetoclopramide 10 mg oral tablet (20 sources)Dopamine-2 Receptor AntagonistStart: 04-15-2025 End: 36-27-2148iywsrbfqvvjzcl (Reglan) 10 MG tablet Indications: Nausea and vomiting during (HHS-HCC) Take 1 tablet (10 mg) by mouth in the morning and 1 tablet (10 mg) at noon and 1 tablet (10 mg) in theevening. Take before meals. Take 1 tablet by mouth 30 minutes prior to meals 3 times daily as needed for nausea. 90 tablet 1 04/15/2025 ActiveStart: 01-13-2025 End: 62-42-0578ndhcuIEEALVYS 0.0075 mg/mg vaginal gel (3 sources)Nitroimidazole AntimicrobialStart: 05-10-2025 End: 56-38-6976zyoudKYKTMZTJ (Metrogel) 0.75 % vaginal gel Indications: BV (bacterial vaginosis) Insert into the vagina Daily for 5 days 70 g 05/10/2025 05/15/2025 ActiveMultiple Vitamin (multivitamin) tablet (6 sources) End: 75-32-0128xrfp 1 tablet by mouth once dailyMultiple Vitamin (multivitamin) tablet Take 1 tablet by mouth Daily 01/13/2025 Discontinuedtake 1 tablet by mouth once dailyMultiple Vitamin (multivitamin) tablet Take 1 tablet by mouth Daily Nhvjxm90 hr NIFEdipine 30 mg extended release oral tablet (7 sources)Dihydropyridine Calcium Channel BlockerStart: 61-80-6385cyjz 1 tablet by mouth once daily, then take 1 tablet by mouth every twenty-four hours NIFEdipine CC (Adalat CC) 30 MG 24 hr tablet Take 30 mg by mouth Daily 10/20/2024 Activeondansetron 4 mg disintegrating oral tablet (20 sources)Serotonin-3 Receptor AntagonistStart: 57-29-9376gsuc 1 tablet by mouth every eight hours as needed for nauseaondansetron ODT (Zofran-ODT) 4 MG disintegrating tablet Take 4 mg by mouth every 8 (eight) hours ifneeded for nausea 02/22/2025 ActiveStart: 01-11-2025 End: 25-09-2650syjb 1 tablet by mouth every six hours for nauseaondansetron ODT (Zofran-ODT) 4 MG disintegrating tablet Indications: Nausea and vomiting during ([facility]) Take 1 tablet (4 mg) by mouth every 6 (six) hours if needed for nausea or vomiting 30 tablet 2 01/11/2025 02/10/2025 Activephentermine hydrochloride 37.5 mg oral tablet (3 sources)Sympathomimetic Amine AnorecticStart: 01-09-2023 End: 64-13-7631klbp 33-33.9 tablets by mouth once daily before breakfast phentermine (ADIPEX-P) 37.5 mg tablet Indications: Class 1 obesity due to excess calories without serious comorbidity with body mass index (BMI) of 33.0 to 33.9 in adult Take 1 tablet (37.5 mg total)by mouth every morning before breakfast. 30 tablet 0 03/05/2023 08/02/2023 Discontinued (Therapy completed)predniSONE 20 mg oral tablet (1 source)Start: 08-02-2023 End: 46-89-2873ycnh 1 tablet by mouth at mealtimepredniSONE (DELTASONE) 20 mg tablet Take 1 tablet (20 mg total) by mouth in the morning for 7 days.Take with food. 7 tablet 0 08/02/2023 08/09/2023 ActivePrenatal 27-1 MG tablet (20 sources)take 1 tablet by mouth once dailyPrenatal 27-1 MG tablet Take 1 tablet by mouth Daily ActiveSemaglutide (Weight Loss) (1 source)Start: 95-52-7504Jsxposlemfu (Weight Loss) (Wegovy) 0.25 mg/0.5 mL pen injector Active 0.25 MG SUBCUT every week February 28, 2024 12:00am administer weeks 1 through 4 of therapy Completed/Discontinued Medications MedicationDrug Class(es)DatesSig (Normalized)Sig (Original)24 hr buPROPion hydrochloride 150 mg extended release oral tablet (10 sources)AminoketoneStart: 03-06-2024 End: 99-57-9215hgqn 1 tablet by mouth every twenty-four hours in the morning buPROPion XL (Wellbutrin XL) 150 MG 24 hr tablet Take 150 mg by mouth in the morning. 03/06/2024 12/01/2024 DiscontinuedStart: 12-05-2023 End: 44-28-3980nejn 150 mg by mouth once daily in the morningBupropion Hcl Active 150 MG PO Every morning January 07, 2024 12:59pm End: 37-84-6858awZNZClod SR (Wellbutrin SR) 150 MG 12 hr tablet 12/01/2024 DiscontinuedDULoxetine 60 mg delayed release oral capsule (12 sources)Serotonin and Norepinephrine Reuptake InhibitorStart: 12-05-2023 End: 76-98-6067ggwp 1 capsule by mouth once dailyDuloxetine (Cymbalta) 30 mg capsule,delayed release(DR/EC) Discontinued 30 MG PO Daily 14 14 December 05, 2023 12:00am December 18, 2023 1:01pmStart: 01-09-2023 End: 61-04-1811dica 1 capsule by mouth once dailyDuloxetine (Cymbalta) 60 mg capsule,delayed release(DR/EC) Discontinued 60 MG PO Daily December 05, 2023 12:00am December 05, 2023 4:15pmethinyl estradiol 0.035 mg / norgestimate 0.25 mg oral tablet (8 sources)Progestin, EstrogenStart: 01-16-2024 End: 27-57-3851dgmmhkgxxrbm-ethinyl estradiol (Ortho-Cyclen) 0.25-35 MG-MCG tablet Indications: Encounter for surveillance of contraceptive pills Take 1 tablet by mouth Daily 84 tablet 3 01/16/2024 12/01/2024 DiscontinuedStart: 57-56-2788lzvq 1 tablet by mouth once dailyNorgestimate-Ethinyl Estradiol Active 1 TAB PO Daily December 05, 2023 12:00amStart: 53-17-7916ksco 1 tablet by mouth once in the morningnorgestimate-ethinyl estradioL (ORTHO-CYCLEN) 0.25-35 mg-mcg per tablet Take 1 tablet by mouth in the morning. 12/18/2022 ActiveStart: 60-47-0841umuo 1 tablet by mouth once in the morningnorgestimate-ethinyl estradioL (ORTHO-CYCLEN) 0.25-35 mg-mcg per tablet Take 1 tablet by mouth in the morning. 0 12/18/2022 Chegnl60 hr loratadine 10 mg / pseudoephedrine sulfate 240 mg extended release oral tablet (5 sources)alpha-Adrenergic AgonistStart: 08-02-2023 End: 41-10-8439tkvn 10-240 mg by mouth every twenty-four hours in the morning Loratadine-D 24HR 10-240 MG 24 hr tablet Take 1 tablet by mouth in the morning. 08/02/2023 12/01/2024 DiscontinuedStart: 08-02-2023 End: 15-63-3025jpbn 1 tablet by mouth once in the [...] unspecified; Translations: [Mixed anxiety and depressive disorder]Onset: 042804-72-1626VbeclezCaautdovyzfsi (5 sources)Endometriosis of pelvic peritoneum; Translations: [Endometriosis (clinical)]Onset: 805286-74-1949FqjryzvCerdfq infertility (2 sources)Female infertility; Translations: [Female infertility, unspecified] 43-23-8436ZapelvtTkwgcyhmetym complicating ; childbirth and the puerperium (2 sources)-induced hypertension; Translations: [Gestational [-induced] hypertension withoutsignificant proteinuria, unspecified trimester]36-35-4333LsboadqhEpmbxkbkiujdf and screening for infectious disease (3 sources)Encounter for screening for human papillomavirus (HPV); Translations: [Exposure to sexually transmissible disorder]Onset: 086492-07-1695Kjcntmpt Menstrual disorders (7 sources)Excessive and frequent menstruation with regular cycle; Translations: [Dysmenorrhea, unspecified]Onset: 38-98-0105DmgahndZmdw disorders (2 sources)Major depression in full remission; Translations: [Major depressive disorder, single episode, in full remission]Onset: hronic Other complications of (4 sources)Vomiting of , unspecified; Translations: [Unspecified vomiting of , unspecified as to episode of care or not applicable] 57-35-1570EbfwklzxNegql complications of (2 sources) size does not accord with dates; Translations: [Uterine size- date discrepancy, unspecified trimester]76-13-3437KvfqzmisAzuvu endocrine disorders (2 sources)Polycystic ovary syndrome; Translations: [Polycystic ovarian syndrome]78-50-5659GmhcaumZsvjk female genital disorders (1 source)Unspecified dyspareunia; Translations: [UNSPECIFIED DYSPAREUNIA]Onset: 40-59-5157LibceovKxdrc female genital disorders (1 source)Abnormal uterine and vaginal bleeding, unspecified; Translations: [ABNORMAL UTERINE VAGINAL BLEED UNS]Onset: 40-94-7804RwwvbqqYttva female genital disorders (2 sources)Abnormal uterine bleeding; Translations: [Abnormal uterine and vaginal bleeding, unspecified]12-14-8906TxgpbqmOachz female genital disorders (4 sources)Vaginal discharge; Translations: [Other specified noninflammatory disorders of vagina]75-34-5313AmbuivilSmbdy gastrointestinal disorders (2 sources)Constipation; Translations: [Constipation, unspecified]01-13-2025 EpisodicOther nutritional; endocrine; and metabolic disorders (1 source)Obesity, unspecified; Translations: [OBESITY UNSPECIFIED]Onset: 64-82-7890KxymvkgTalxz nutritional; endocrine; and metabolic disorders (2 sources)Insulin resistance; Translations: [Insulin resistance]12-01-2024 ChronicOther and delivery including normal (16 sources); Translations: [Encounter for supervision of normal , unspecified, unspecified trimester]17-75-0730HjrksobeGosaa screening for suspected conditions (not mental disorders or infectious disease) (8 sources)Encounter for screening for malignant neoplasm of cervix; Translations: [Patient encounter status]Onset: 47-86-7670VoenstpfGjqzugijthxohz and other problems of amniotic cavity (2 sources)Subchorionic hematoma; Translations: [Other specified disorders of amniotic fluid and membranes, first trimester, not applicable or unspecified] 54-63-4404JsvhqwcpYbmiiccg codes; unclassified (2 sources)Gestation period, 13 weeks; Translations: [13 weeks gestation of ]18-42-6504BbqxnibiXkvwyqfk codes; unclassified (2 sources)Gestation period, 17 weeks; Translations: [17 weeks gestation of ]84-37-5886FqidfnsiYfsdenzp codes; unclassified (2 sources)Gestation period, 21 weeks; Translations: [21 weeks gestation of ]15-77-3923CyqutxwlQdxakxyd codes; unclassified (2 sources)Gestation period, 24 weeks; Translations: [24 weeks gestation of ]98-25-6069GwaiqzeiIkvqltsq codes; unclassified (4 sources)Gestation period, 28 weeks; Translations: [28 weeks gestation of ]35-13-9346XpqpwwouBdbdmwppwizr (1 source)CONTACT W/AND (SUSP) EXPOS COVID-19; Translations: [CONTACT W/AND (SUSP) EXPOS COVID-19]Onset: 50-69-7737Yawzkgswnpye (2 sources)pre employment; Translations: [pre employment]Onset: 03-04-2025 Past or Other Problems Problem ClassificationProblemDateDocumented DateEpisodic/ChronicAbdominal pain (1 source)Pelvic and perineal pain; Translations: [PELVIC AND PERINEAL PAIN] Onset: 53-00-5089KoviugkhBtqm disorders (3 sources)Mood disorders; Translations: [DEPRESSION UNSPECIFIED]Onset: Other circulatory disease (1 source)Elevated blood pressure; Translations: [Elevated blood-pressure reading, without diagnosis of hypertension]08-45-9703YaoqzgmiPpzjw upper respiratory infections (1 source)Acute maxillary sinusitis; Translations: [Acute maxillary sinusitis, unspecified]47-98-6526RwlzprpmMmjspu media and related conditions (1 source)Acute non-suppurative otitis media - serous; Translations: [Acute serous otitis media, bilateral]08-67-8085PxbmpzuhSvruftfcitnq (2 sources)Onset: Results Test NameValueInterpretationReference RangeFacilityUS OB FOLLOW UP TRANSABDOMINAL APPROACHon 50-24-2225DQ OB FOLLOW UP TRANSABDOMINAL APPROACH FINDINGS: A [...] Delivery: 08/26/25 Gestational Age as of 06/08/2025: 93e7iDswpzvmjzu macro (dipstick) panel (U)on 51-97-7982Uyohuyxsc, UANegativeNegative - 4(70) +++ mg/dLNOMS HealthcareBlood, UANegativeNegative [...] mg/dLNOMS HealthcareNOMS HealthcareUrinalysis macro (dipstick) panel (U)on 79-75-6924Kvgxjkzjq, UA NegativeNegative - 4(70) +++ mg/dLNOMS HealthcareBlood, UANegativeNegative - 50 Randall/mcLNOMS HealthcareClarity, UAClearNOMS HealthcareColor, UAYellowNOMS HealthcareGlucose, UANegativeNegative - 1999(110) ++++ mg/dLNOMS Healthcare Interpretation and review of laboratory resultsAbnormalNOMS HealthcareKetones, UANegativeNegative - 160(16) ++++ mg/dLNOMS HealthcareLeukocytes, UAPositive Negative - 500+++ [facility] Hospital CenterNOMS HealthcareComment on above:1+Nitrite, UANegative Negative - PositiveNOMS HealthcarepH, UA6.05 - 9NOMS HealthcareProtein, UA PositiveNegative - 1999(20) ++++ mg/dLNOMS HealthcareSpec Grav, UA1.0201 - 1.03 NOMS HealthcareUrobilinogen, UA1.00.2 - 12 mg/dLNOMS HealthcareNOMS Healthcare Urinalysis macro (dipstick) panel (U)on 13-03-3066Cicslibzl, UANegativeNegative - 4(70) +++ mg/dLNOMS HealthcareBlood, UANegativeNegative - 50 Randall/mcLNOMS HealthcareClarity, UAClearNOMS HealthcareColor, UAYellowNOMS HealthcareGlucose, UANegativeNegative - 1999(110) ++++ mg/dLNOMS HealthcareInterpretation and review of laboratory resultsAbnormalNOMS HealthcareKetones, UANegativeNegative - 160(16) ++++ mg/dLNOMS HealthcareLeukocytes, UA3+Negative - 500+++ [facility] Hospital CenterNOKY HealthcareNitrite, UANegativeNegative - PositiveNOMS HealthcarepH, UA8.55 - 9 NOMS HealthcareProtein, UATraceNegative - 1999(20) ++++ mg/dLNOMS HealthcareSpec Grav, UA1.011 - 1.03NOMS HealthcareUrobilinogen, UA2.00.2 - 12 mg/dLNOMS HealthcareNOMS HealthcareIGP,APTIMA HPV,AGE GDLNon 65-11-7118WCP GDLN ACOG TESTINGNote.[facility] HealthcareComment on above:TESTS RESULT FLAG UNITS REF RANGE LAB Clinician Provided Cytology Information Source.............Endocervix Other.............. No. of containers..01 ThinPrep Vial Age Madhu CRANE Millie... FLAG LEGEND: L-Low Normal,H-High Normal,LL-Alert Low,HH-Alert High <-Panic Low,>-Panic High,A-Abnormal,AA-Critical Abnormal Performed at: 01 =[facility] [address] [place] [address] Beverly Nguyen MD, IGP, RFX APTIMA HPV ASCUNote.NOMS HealthcareComment on above:TESTS RESULT FLAG UNITS REF RANGE LAB DIAGNOSIS: 02 NEGATIVE FOR INTRAEPITHELIAL LESION OR MALIGNANCY. FUNGAL ORGANISMS MORPHOLOGICALLY CONSISTENT WITH ROSALBA SPECIES ARE PRESENT. Specimen adequacy: 02 Satisfactory for evaluation. Endocervical and/or squamous metaplastic cells (endocervical component) are present. Performed by: 02 Sonia Beckham, Knitting Machine Fixer ([facility]) . 02 Note: Note 02 The [...] High <-Panic Low,>-Panic High,A-Abnormal,AA-Critical Abnormal Performed at: [address] [place] [id number] Beverly Nguyen MD, Performed at: = - [address] [id number] Administrative Program Specialist: Beverly Nguyen MD, Phone: [phone] Performed at: [address] [id number] Administrative Program Specialist: Beverly Nguyen MD, Phone: [phone] SPATULA-ALONE ENDOCERVIX CLINISYNCNOMS HealthcareAFP, SERUM, OPEN SPINA BIFIDAon 76-22-3164IGA MOM1.10. [facility] HealthcareAFP VALUE34.4 ng/mL.[facility] HealthcareCOMMENT:Comment.[facility] HealthcareComment on above:Giselle Merida, Ph.D., [facility] Director References: Available Upon Request. Multiples Of Median Cutoffs For AFP Elevations Sellers 2.5 Black 2.8 IDD 2.0 Twins 4.5 Abbreviation Definitions IDD - Insulin Dep Diabetes OSBR - Open Spina Bifida Risk For further inquiries contact [facility] at [phone]. This test was developed and its performance characteristics determined by [facility]. It has not been cleared or approved by the Food and Drug Administration. Performed at: - [facility] [address] [facility], [place], [place] [id number] Administrative Program Specialist: Nirmal Means [facility], Phone: [phone] GEST. AGE ON COLLECTION DATE17.0. weeksNOKY HealthcareGESTAT. AGE BASED ONLMP. NOMS HealthcareComment on above:Recalculations are not recommended when gestational dating by LMP and ultrasound are within 10 days. INSULIN DEP DIABETESNo.NOM HealthcareINTERPRETATIONComment.[facility] Healthcare Comment on above:Interpretation: Screen Negative This [...] Customer Services to discuss available options. The [employer] recommends amniocentesis be offered to women age 35 and older. MATERNAL AGE AT EDD25.9. yrNOKY HealthcareMULTIPLE GESTATIONNo.[facility] OSBR RISK 1 TW0012.[facility] HealthcareRACECaucasian.[facility] LouisRESULTSReport. [facility] LouisTEST RESULTS:Negative.[facility] MdutfewfddBZLBEH001. lbsNOMS HealthcarePREGNANCY N N LMP [id number] 0 17 N 1 Y 206 N N N N N White/ CLINISYNCNOMS HealthcareRECURRENT VAGINITIS (HTRX)on 32-23-0251NMVCLFZWY VAGINAE 0NOMS HealthcareATOPOBIUM VAGINAENot detectedNOMS HealthcareBVAB 2,3 (BACTERIAL VAGINOSIS ASSOCIATED BACTERIA 2, 3); MOBILUNCUS WPH2KHAO HealthcareBVAB 2,3 (BACTERIAL VAGINOSIS ASSOCIATED BACTERIA 2, 3); MOBILUNCUS SPPNot detectedNOMS HealthcareCANDIDA ALBICANS, PARAPSILOSIS, DVYFRDYYJD26.725AbnormalNOMS HealthcareCANDIDA ALBICANS, PARAPSILOSIS, TROPICALISDetectedAbnormalNOMS HealthcareCANDIDA XQNATVKU2DHKR HealthcareCANDIDA GLABRATANot detectedNOMS HealthcareCANDIDA AZKTQB1FQQW HealthcareCANDIDA KRUSEINot detectedNOMS HealthcareCHLAMYDIA DJUBTJKQMNY8BDJZ HealthcareCHLAMYDIA TRACHOMATISNot detected NOMS HealthcareGARDNERELLA QPBSCLMWF64.732AbnormalNOMS HealthcareGARDNERELLA VAGINALISDetectedAbnormalNOMS HealthcareInterpretation and review of laboratory resultsAbnormalNOMS HealthcareMEGASPHAERA (TYPES 1, 2)0[facility] MEGASPHAERA (TYPES 1, 2)Not detectedNOMS HealthcareMYCOPLASMA CRFGRNKDVW2JQVL HealthcareMYCOPLASMA GENITALIUMNot detectedNOMS HealthcareNEISSERIA GONORRHOEAE0 NOMS HealthcareNEISSERIA GONORRHOEAENot detectedNOMS HealthcareTRICHOMONAS IPQKFJKVA6UUHV HealthcareTRICHOMONAS VAGINALISNot detectedNOMS HealthcareNOMS HealthcareUS OB LIMITED 1+ FETUSESon 28-47-6288KI OB LIMITED 1+ FETUSESFINDINGS: Cephalic presentation. Anterior [...] was 11/19/2024 (approximate).Urinalysis macro (dipstick) panel (U)on 65-68-5687Vikgyyxlf, UANegativeNegative - 4(70) +++ mg/dL NOMS HealthcareBlood, [...] UA1.021 - 1.03NOKY HealthcareUrobilinogen, UA1.00.2 - 12 mg/dLNOLiberty HospitalNOKY HealthcareQuantiFERON Tbon 86-88-3192HHD InterNegative NormalNEGMetrohealth Main Campus Medical CenterComforest health medical center on above:Result Comment: Quantiferon TB Gold Plus [...] Mycobacterium tuberculosis Infection -- [place], 2010 (http://www.cdc.gov/mmwr/preview/mmwrhtml/ok6022t2.htm), for more information concerning test performance in low-prevalence populations and use in occupational screening.Performed By: #### QFTB #### [employer] [address] [place], [place] [id number] Administrative Program Specialist: Hamlet Cai Juan minus NIL9.92 IU/mLNormalMetrohealth Main Campus Medical CenterComforest health medical center on above:Performed By: #### QFTB #### [employer] [address] [place], [place] [id number] Administrative Program Specialist: Hamlet Caii TB1 minus NIL0.00 IU/mLNormal0.00-0.34 [facility] CenterComforest health medical center on above:Performed By: #### QFTB #### [employer] [address] [place], [place] [id number] Administrative Program Specialist: Lance Chester MDQuanti TB2 minus NIL0.00 IU/mLNormal0.00-0.34 [facility] Medical CenterComment on above:Performed By: #### QFTB #### [facility] [address] [place], [place] [id number] Administrative Program Specialist: Lance Chester MDQuantiFERON NIL0.08 IU/mLNormalMetrohealth Main Campus Medical CenterComment on above:Performed By: #### QFTB #### [facility] [address] [place], [place] [id number] Administrative Program Specialist: Lance Chester MDUrinalysis macro (dipstick) panel (U)on 40-75-8457Sngpkqnlg, UANegativeNegative - 4(70) +++ mg/dLNOMS HealthcareBlood, UANegativeNegative [...] - 12 mg/dLNOMS HealthcareNOMS HealthcareUS OB TRANSVAGINALon 86-84-3462A[address] [address] Ultrasound Report Signed Patient: MEREDITH TEMPLETON MR#: [id number] : 2000 Acct:[id number] Age/Sex: 24 / F ADM Date: 02/11/25 Loc: US Attending Dr: Abad Canchola D.O. Ordering Physician: Abad Canchola D.O. Date of Service: 02/11/25 Procedure(s): US OB transvaginal Accession Number(s): [id number] cc: Michelle Pabon M.D.; Abad Canchola D.O. [place] [address] Patient Name: MEREDITH TEMPLETON MRN: [id number] date: 2000 Sex: F Assigned Patient Location: US Current Patient Location: US Accession/Order Number: [id number] Exam Date: 02/11/2025 09:39 Report Date: 02/11/2025 [...] Gillette M.D. 02/11/2025 9:43 AM Dictation Location: [place] [address] Electronically authenticated by: [id number] Y Date: 02/11/2025 09:43 Dictated By: Misa Gillette M.D. Signed By: 02/11/2546 DD/ 2 TD/TT: Batch Maker:SHERRIEadiology, Radiologist, - 02/11/[address] [address] Ultrasound Report Signed Patient: MEREDITH TEMPLETON MR#: [id number] : 2000 Acct:[id number] Age/Sex: 24 / F ADM Date: 02/11/25 Loc: US Attending Dr: Abad Canchola D.O. Ordering Physician: Abad Canchola D.O. Date of Service: 02/11/25 Procedure(s): US OB transvaginal Accession Number(s): [id number] cc: Michelle Pabon M.D.; Abad Canchola D.O. The [place] [id number] Patient Name: MEREDITH TEMPLETON MRN: [id number] date: 2000 Sex: F Assigned Patient Location: US Current Patient Location: US Accession/Order Number: [id number] Exam Date: 02/11/2025 09:39 Report Date: 02/11/2025 [...] Gillette M.D. 02/11/2025 9:43 AM Dictation Location: [place] [address] Electronically authenticated by: [id number] Y Date: 02/11/2025 09:43 Dictated By: Misa Gillette M.D. Signed By: 02/11/2546 DD/ 2 TD/TT: Batch Maker: [facility] LouisRadiology Study observation (narrative)[facility] LouisUS OB TRANSVAGINALOrdered By: Radiologist Radiology on 15-55-6723QJBGTenet St. Louis Work Phone: HCG ( test) Ql (U)on 86-29-2124Jedllwcpsikwoe and review of laboratory resultsAbnormalNOLiberty HospitalPreg Test, UrPositive NegativeNOFroedtert HospitalMLR HEMOGLOBIN A1Con 72-49-7017Wniufmy [Mass/Vol]91 mg/dLTenet St. LouisHbA1c (Bld) [Mass fraction]4.8 %4.5 - 6.2 %[facility] LouisComment on above:ADA RECOMMENDED LIMIT 4.0 - 6.0 ADA THERAPEUTIC TARGET < 7.0 ACTION SUGGESTED > 7.0 CLINISYNCNOKY HealthcareUS OB TRANSVAGINALon 22-82-8004SA OB TRANSVAGINALEXAM: US OB TRANSVAGINAL HISTORY: Dating. [...] II, MD, PHD at 22-Jan-2025 10:24:02 AM [facility] TeleradiologyNormalNot AvailableComment on above:Order Comment: US OB TRANSVAGINAL Patient's last menstrual period was 11/19/2024 (approximate).Urinalysis macro (dipstick) panel (U)on 62-34-7987Nenhqyovk, UANegativeNegative - 4(70) +++ mg/dL [facility] HealthcareBlood, [...] HealthcareNOMS Healthcare Urinalysis macro (dipstick) panel (U)on 12-56-8434Sxytqurug, UANegativeNegative - 4(70) +++ mg/dLNOMS HealthcareBlood, UANegativeNegative - 50 Randall/mcLNOMS HealthcareClarity, UAClearNOMS HealthcareColor, UAYellowNOMS HealthcareGlucose, UANegativeNegative - 1999(110) ++++ mg/dLHE[facility] HealthcareInterpretation and review of laboratory resultsAbnormalNOKY HealthcareKetones, UANegativeNegative - 160(16) ++++ mg/dLHE[facility] VALLEY [facility] HealthcareLeukocytes, UAPositiveNegative - 500+++ Johnson/mcL [facility] HealthcareComment on above:LargeNitrite, UANegativeNegative - PositiveNOKY HealthcarepH, UA75 - 9NOMS HealthcareProtein, UANegativeNegative - 2000(20) ++++ mg/dLHEBER VALLEY [facility] HealthcareSpec Grav, UA1.0151 - 1.03NOKY HealthcareUrobilinogen, UA0.2 0.2 - 12 mg/dLSaint Mary's Hospital [facility] HealthcareALL CBC WITH AUTO DIFFon 12-01-2024 BASOPHILS ABSOLUTE AUTO0.1NOMS HealthcareBasophils/100 WBC (Bld)0.5 %0.2 - 2.0 % [facility]Eosinophils/100 WBC (Bld)2.6 %0.9 - 7.0 %[facility] Erythrocyte distribution width (RBC) [Ratio]12.2 %11.0 - 15.0 %[facility] Hematocrit (Bld) [Volume fraction]42.8 %36.0 - 48.0 %[facility] LouisHemoglobin (Bld) [Mass/Vol]14.8 g/dL12.0 - 16.[address] LouisIMMATURE GRANULOCYTES ABS AUTO0.01NOLiberty HospitalImmature granulocytes/100 WBC (Bld)0.1 %0.0 - 0.5 % [facility] LouisLYMPHOCYTES ABSOLUTE AUTO2.8NOLiberty HospitalLymphocytes/100 WBC (Bld)29.5 %20.5 - 60.0 %[facility] HospitalH (RBC) [Entitic mass]29.6 pg26.7 - 34.0 pgPershing Memorial HospitalHC (RBC) [Mass/Vol]34.6 g/dL29.9 - 35.2 g/dLPershing Memorial HospitalV (RBC) [Entitic vol]85.6 fL81.0 - 99.[address] LouisMONOCYTES ABSOLUTE AUTO0.6NOLiberty HospitalMonocytes/100 WBC (Bld)5.8 %1.7 - 12.0 %[facility] HealthcareNEUTROPHILS ABSOLUTE AUTO5.8NOMS HealthcareNeutrophils/100 WBC (Bld) 61.5 %43.0 - 75.0 %[facility] HealthcarePlatelet mean volume (Bld) [Entitic vol]10 fL 9.5 - 13.5 fLNOMS HealthcareTBH EO #0.3NOMS HealthcareTBH VHY356OERU Healthcare TBH FDL1UHNV HealthcareTBH WBC9.5NOMS HealthcareCLINISYNCNOMS HealthcareHCG ( test) Ql (U)on 14-81-4878Ikigovkzpuhtqk and review of laboratory resultsNormalTenet St. LouisPreg Test, UrNegativeNegativeNOThree Rivers Healthcare HealthcareUrinalysis macro (dipstick) panel (U)on 71-88-5502Jfrvdjfno, UA NegativeNegative - 4(70) +++ mg/dLNOKY HealthcareBlood, UANegativeNegative - 50 Randall/mcLNOKY HealthcareClarity, UAClearNOKY HealthcareColor, UAYellowNOKY HealthcareGlucose, UANegativeNegative - 2000(110) ++++ mg/dLTenet St. Louis Interpretation and review of laboratory resultsAbnormalHEBER VALLEY MED[facility]ENTER HealthcareKetones, UANegativeNegative - 160(16) ++++ mg/dLTenet St. LouisLeukocytes, UAPositive Negative - 500+++ Johnson/mcLNOKY HealthcareComment on above:smallNitrite, UA NegativeNegative - PositiveNOKY HealthcarepH, UA75 - 9NOMS HealthcareProtein, UA NegativeNegative - 2000(20) ++++ mg/dLNOKY HealthcareSpec Grav, UA1.011 - 1.[address] LouisUrobilinogen, UA0.20.2 - 12 mg/dLNOMS [facility] HospitalNOKY Healthcare IGP,APTIMA HPV,AGE GDLNon 23-43-8928JOW GDLN ACOG TESTINGNote.[facility] Comment on above:TESTS RESULT FLAG UNITS REF RANGE LAB Clinician Provided Cytology Information Source.............Cervix;Endocervix No. of containers..01 ThinPrep Vial Phan Pinto... FLAG LEGEND: L-Low Normal,H-High Normal,LL-Alert Low,HH-Alert High <-Panic Low,>-Panic High,A-Abnormal,AA-Critical Abnormal Performed at: 01 =G [facility] [address] Beverly Nguyen MD, IGP, RFX APTIMA HPV ASCUNote.[facility] LouisComment on above:TESTS RESULT FLAG UNITS REF RANGE LAB DIAGNOSIS: 02 NEGATIVE FOR INTRAEPITHELIAL LESION OR MALIGNANCY. Specimen adequacy: 02 Satisfactory for evaluation. No endocervical component is identified. Performed by: Pricila Smith, Hearing Consultant ([facility]) . 02 Note: Note 02 The [...] <-Panic Low,>-Panic High,A-Abnormal,AA-Critical Abnormal Performed at: [address] [address] Beverly Nguyen MD, Performed at: = - [address] [id number] Administrative Program Specialist: Beverly Nguyen MD, Phone: [phone] Performed at: [facility] [address] [id number] Administrative Program Specialist: Beverly Nguyen MD, Phone: [phone] BRUSH-SPATULA CERVIX ENDOCERVIX CLINISYNCNOMS HealthcareComprehensive Metabolic Panelon [id number] [Mass/Vol]4.2 g/dLNormal3.5-5.0[facility] Samaritan HospitalComment on above:Order Comment: Ordered by ANNEL Loving By: #### KEIRA, [id number] #### [place] [address] Ph. [phone] [Catalytic activity/Vol]77 U/ZDxrojb05-854YqrwailFulton County Health CenterComment on above:Order Comment: Ordered by ANNEL Loving By: #### KEIRA, [id number] #### [address] [address] Ph. [phone] [Catalytic activity/Vol]29 U/LNormal0-35WFulton County Health CenterComment on above:Order Comment: Ordered by ANNEL KUNSPerformed By: #### CMP, [id number] #### [place] [address] Ph. [phone] [Catalytic activity/Vol]30 U/NEewldi45-93AvgkicuFulton County Health CenterComment on above:Order Comment: Ordered by ANNEL Loving By: #### CMP, [id number] #### [place] [address] Ph. [phone] [Mass/Vol]0.4 mg/dLNormal0.2-1.3WFulton County Health CenterComment on above:Order Comment: Ordered by ANNEL Loving By: #### CMP, [id number] #### [place] [address] Ph. [phone] [Mass/Vol]9.2 mg/dLNormal8.4-10.2WFulton County Health CenterComment on above:Order Comment: Ordered by ANNEL Loving By: #### CMP, [id number] #### [place] [address] Ph. [phone] [Moles/Vol]101 mmol/ZPgjphk01-037PxbzvvyFulton County Health CenterComment on above:Order Comment: Ordered by ANNEL Loving By: #### CMP, [id number] #### [place] [address] Ph. [phone] [Moles/Vol]25 mmol/SMeiilz73-55MjnueoiFulton County Health Center Comment on above:Order Comment: Ordered by ANNEL Loving By: #### CMP, [id number] #### [place] [address] Ph. [phone] [Mass/Vol]0.71 mg/dLNormal0.52-1.04WFulton County Health CenterComment on above:Order Comment: Ordered by ANNEL Loving By: #### CMP, [id number] #### [address] [address] Ph. [phone]/1.73 sq M.predicted among non-blacks MDRD (S/P/Bld) [Vol rate/Area]122 mL/min/{1.73_m2}Normal>60WFulton County Health CenterComment on above:Order Comment: Ordered by ANNEL Reynoso Comment: GFR calculated using CKD-EPI (2020) formula.\X0D0A\Stage 1 Kidney damage (e.g., protein in the urine) with normal GFR >=90\X0D0A\Stage 2 Kidney damage with mild decrease in GFR 60-8 9\X0D0A\Stage 3a Moderate decrease in GFR 45-59\X0D0A\Stage 3b Moderate decrease in GFR 30-44\X0D0A\Stage 4 Severe reduction in GFR 15-29\X0D0A\Stage 5 Kidney failure <15Performed By: #### CMP, [id number] #### [address] [address] Ph. [phone] [Mass/Vol]85 mg/nIYvgiik07-547MnlnznwTrihealth Good Samaritan Hospital Comment on above:Order Comment: Ordered by ANNEL Loving By: #### CMP, [id number] #### [address] [address] Ph. [phone] [Moles/Vol]4.1 mmol/LNormal3.6-5.0WFulton County Health CenterComment on above:Order Comment: Ordered by ANNEL Loving By: #### CMP, [id number] #### [address] [address] Ph. [phone] [Mass/Vol]8.0 g/dLNormfl6.3-8.2[facility] Comment on above:Order Comment: Ordered by ANNEL Loving By: #### CMP, [id number] #### [address] [place] [address] Ph. [phone] [Moles/Vol]137 mmol/KDunxgs225-343CwmdanzFulton County Health CenterComment on above:Order Comment: Ordered by ANNEL Gonzalezformed By: #### CMP, [id number] #### [address] [place] [address] Ph. [phone] nitrogen [Mass/Vol]10 mg/dLNormal7-17WFulton County Health CenterComment on above:Order Comment: Ordered by ANNEL Gonzalezformed By: #### CMP, [id number] #### [place] [address] Ph. [phone] [Mass/Vol]4.2 g/dL3.5 - 5.0 g/dLWYANDOTALP (Bld) [Catalytic activity/Vol]77 U/L38 - 126 U/LWYANDOTALT [Catalytic activity/Vol]29 U/L0 - 35 U/LWYANDOTAST [Catalytic activity/Vol]30 U/L14 - 36 U/LWYANDOT Bilirubin [Mass/Vol]0.4 mg/dL0.2 - 1.3 mg/dLWYANDOTCalcium [Mass/Vol]9.2 mg/dL 8.4 - 10.2 mg/dLWYANDOTChloride [Moles/Vol]101 mmol/LWYANDOTCO2 [Moles/Vol]25 mmol/LWYANDOTCreatinine [Mass/Vol]0.71 mg/dL0.52 - 1.04 mg/dLWYANDOTGFR, Ltgtjvmrj525- PINFWYANDOTComment on above: GFR calculated using CKD-EPI [...] mg/dL7 - 17 mg/dLWYANDOTOrdered by ANNEL FINN MCL[facility] HOSPITALEZRATTSH Reflex FT4on 45-36-7538ORU6.420 mIU/mLNormal0.470-4.680WKettering Memorial Hospital on above:Order Comment: Ordered by ANNEL Gonzalezformed By: #### CMP, [id number] #### [place] [address] Ph. [phone] with Reflexon [id number] Qn2.420 m[IU]/LWYANDOTOrdered by [facility] BASILMT. SAN RAFAEL HOSPITALWYANDOTPAP ACOG PANEL 2: to 03-01-2022.. NormalThe [facility] CenterComment on above:Performed By: #### [id number] #### [facility] [address] [place] [address] Dr. Dallas Kaplan Gdln ACOG Clfivff14-69CscvjcAarZanesville City HospitalComforest health medical center on above:Performed By: #### [id number] #### [facility] [address] [place] [address] Dr. Dallas WolfDIAGNOSIS:CommentCleveland Clinic Lutheran Hospital on above: Result Comment: NEGATIVE FOR INTRAEPITHELIAL LESION OR MALIGNANCY.Performed By: #### [id number] #### [facility] [address] [place] [address] Dr. Dallas WolfMethodology:CommentCleveland Clinic Lutheran Hospital on above: Result Comment: This liquid based ThinPrep(R) pap test was screened with the use of an image guided system.Performed By: #### [id number] #### [facility] [address] [place] [address] Dr. Dallas WolfNote:CommentCleveland Clinic Lutheran Hospital on above:Result Comment: The Pap smear is a screening test designed to aid in the detection of premalignant and malignant conditions of the uterine cervix. It is not a diagnostic procedure and should not be used as the sole means of detecting cervical cancer. Both false-positive and false-negative reports do occur. .Performed By: #### [id number] #### [facility] [address] [place] [address] Dr. Dallas WolfPerformed by:CommentCleveland Clinic Lutheran Hospital on above: Result Comment: Nikolay Smith, Hearing Consultant (ASCP)Performed By: #### [id number] #### [address] [address] Dr[address] Dallas WolfReflex Criteria:[facility] on above:Result Comment: The HPV DNA reflex criteria were not met with this specimen result therefore, no HPV testing was performed. .Performed By: #### [id number] #### [address] [address] Dr[address] Dallas WolfSpecimen adequacy:[facility] on above:Result Comment: Satisfactory for evaluation. Endocervical and/or squamous metaplastic cells (endocervical component) are present.Performed By: #### [id number] #### [address] [address] Dr. Dallas Jackson AUTO DIFFon 35-56-2731DTKO #0.1 103/ulNormal0.0-0.1The Madison Healthment on above:Performed By: #### CBC #### [facility] [address] [place] [address] Dr. Dallas WolfBasophils/100 WBC (Bld)0.8 %Normal0.2-2.0[facility] Comment on above:Performed By: #### CBC #### [facility] [address] [place] [address] Dr. Dallas Huggins #0.3 103/ulNormal0.0-0.7The [facility] on above: Performed By: #### CBC #### [facility] [address] [address] [address] Dallas Mosleyosinophils/100 WBC (Bld)4.1 %Normal0.9-7.0The [facility] Comment on above:Performed By: #### CBC #### [facility] [address] [place] [address] Dr. Dallas Mosleyrythrocyte distribution width (RBC) [Ratio]13.0 %Fnyokx56.0-15.0 The [facility] CenterComment on above:Performed By: #### CBC #### [facility] [address] [place] [address] Dr. Dallas WolfHematocrit (Bld) [Volume fraction]43.4 %Amxsah99.0-48.0The [facility] CenterComment on above:Performed By: #### CBC #### [facility] [address] [place] [address] Dr. Dallas WolfHemoglobin (Bld) [Mass/Vol]14.5 g/qQHnjozk54.0-16.0The [facility] CenterComment on above:Performed By: #### CBC #### [facility] [address] [place] [address] Dr. Dallas Ortez #0.02 10e3/ulNormal0.00-0.03The [facility] CenterComment on above:Performed By: #### CBC #### [facility] [address] [place] [address] Dr. Dallas WolfIG %0.3 %Normal0.0-0.5The [facility] Healthment on above: Performed By: #### CBC #### [facility] [address] [place] [address] Dr. Dallas OsheaMPH #2.2 103/ulNormal1.2-3.8The [facility] CenterComment on above:Performed By: #### CBC #### [facility] [address] [place] [address] Dr. Dallas Osheamphocytes/100 WBC (Bld)28.1 %Galvbd58.5-60.0The [facility] CenterComment on above:Performed By: #### CBC #### [facility] [address] [address] [address] Dallas Cifuentes DIFF REQNONormalThe [facility] CenterComment on above: Performed By: #### CBC #### [facility] [address] [place] [address] Dr. Dallas Hernandez (RBC) [Entitic mass]28.5 mxTxoxdy35.7-34.0The [facility] HospitalComment on above:Performed By: #### CBC #### [facility] [address] [place] [address] Dr. Dallas Hernandez (RBC) [Mass/Vol]33.4 g/oFEwhwfw36.9-35.2The [facility] CenterComment on above:Performed By: #### CBC #### [facility] [address] [place] [address] Dr. Dallas Hernandez (RBC) [Entitic vol]85.3 rFZmoqyo06.0-99.0The [facility] CenterComment on above:Performed By: #### CBC #### [facility] [address] [place] [address] Dr. Dallas Smith #0.6 103/ulNormal0.3-0.8The [facility] CenterComment on above:Performed By: #### CBC #### [facility] [address] [place] [address] Dr. Dallas Medranoocytes/100 WBC (Bld)7.9 %Normal1.7-12.0The [facility] Comment on above:Performed By: #### CBC #### [facility] [address] [place] [address] Dr. Dallas Garcia #4.6 103/ulNormal1.4-6.5The [facility] CenterComment on above:Performed By: #### CBC #### [facility] [address] [place] [address] Dr. Dallas Novautrophils/100 WBC (Bld)58.8 %Fwxvog32.0-75.0The [facility] Healthment on above:Performed By: #### CBC #### [facility] [address] [address] [address] Dallas Loulet mean volume (Bld) [Entitic vol]9.6 fLNormal9.5-13.5The [facility] on above:Performed By: #### CBC #### [facility] [address] [address] [address] Dallas WolfPLT242 103/svCdragv123-623Dhm [facility] CenterComment on above: Performed By: #### CBC #### [facility] [address] [place] [address] Dr. Dallas WolfRBC5.09 106/ulNormal4.20-5.40[facility] on above:Performed By: #### CBC #### [facility] [address] [place] [address] Dr. Dallas WolfWBC7.8 103/ulNormal4.0-11.0The [facility] CenterComment on above: Performed By: #### CBC #### [facility] [address] [place] [address] Dr. Dallas WolfPREElise QUANT HCGon 99-67-8886SCL QUANT<1NormalDayton Children'S Hospital Comment on above:Performed By: #### PREGQNT #### [facility] [address] [place] [address] Dr. Dallas WolfHCElise RANGESEE [facility] CenterComment on above: Result Comment: 5-50 0-1 WEEK 40-300 1-2 WEEKS 100-1,000 2-3 WEEKS 500-6,000 3-4 WEEKS 5,000-200,000 1-2 MONTHS 10,000-100,000 2-3 MONTHS 3,000-50,000 2ND TRIMESTER 1,000-50,000 3RD TRIMESTERPerformed By: #### PREGQNT #### [facility] [address] [place] [address] Dr. Dallas WolfCovid-19 PCR (CVDTBH)on 34-58-4977VWFR-CoV-2 (COVID-19) RNA SANJANA+probe Ql (Unsp spec)Not detectedNormalNOT DETECTEDThe [facility] Comment on above:Result Comment: This test is not yet approved or cleared by the [place] FDA. When there are no FDA-approved or cleared tests available, and other criteria are met, FDA can make tests available under an emergency access mechanism called an Emergency Use Authorization (EUA). The EUA for this test is supported by the [employer] of Health and Human Service's (HHS's) declaration [...] consistent with SARS-CoV-2.Performed By: #### CVDTB #### [facility] [address] [place] [address] Dr. Dallas Wolf Vital Signs Date TimeVital SignValuePerforming SdiessuagNukaajxl69-84-0925 15:50-0500Body mass index (BMI) [Ratio]35.19 kg/j5Bhvfh Jesika DO Work Phone: [employer] Gjkcmemwwz40-55-1244 15:50-0500Body hginmr46.88 kgCorey Jesika DO Work Phone: [phone] HospitalCwfgaonnho31-01-4739 15:50-0500Diastolic blood hobkzpxk97 mm[Hg]Abad Jesika DO Work Phone: NOMS HealthcareComment on above:130/ 15:50-0500Systolic blood rrylroqx987 mm[Hg]Abad Jesika DO Work Phone: NOMS HealthcareComment on above:130/1042-57-0099 08:41-0400Body mass index (BMI) [Ratio]34.4 kg/m2Amy Gregorio PA Work Phone: [facility] LouisZzwjlcttrn01-66-6682 08:41-0400Body pighlr57.67 kgShagufta [address] PA Work Phone: [facility] LouisQezcfqtids82-90-0648 08:41-0400Diastolic blood mm[Hg]Shagufta [address] PA Work Phone: [facility] LouisLrbbpvjdhp49-05-5477 08:41-0400Systolic blood mm[Hg]Shagufta Perkins PA Work Phone: [phone]-[facility] LouisFuxobqdrib98-50-6292 08:33-0400Body mass index (BMI) [Ratio]33.59 kg/l3Jfuhqfii Kirill NITRATING ACID MIXER Work Phone: [facility] LouisTaugvfswsz24-26-1183 08:33-0400Body wjquhz35.4 kg Sya Kirill NITRATING ACID MIXER Work Phone: [facility] LouisDwfclhqddm77-02-2347 08:33-0400Diastolic blood vqpbijfx74 mm[Hg]Say Cosmeerly NITRATING ACID MIXER Work Phone: [phone]-[facility] LouisIiylrgbfmc51-19-4547 08:33-0400Systolic blood tkpxevpq182 mm[Hg]Say Cosmeerly NITRATING ACID MIXER Work Phone: [phone]-[facility] LouisRlwmrfkmpf71-54-7371 10:35-0400Body mass index (BMI) [Ratio]33.25 kg/d7Clxet Jesika DO Work Phone: [facility] LouisNnsezioodo53-70-1731 10:35-0400Body .44 kgCorey Jesika DO Work Phone: [phone]-[facility] LouisFjjaboxcks24-54-4538 10:35-0400Diastolic blood hqezmodh76 mm[Hg]Abad Jesika DO Work Phone: [phone]-[facility] LouisKgwinlarqj74-97-8758 10:35-0400Systolic blood ngyzpfum025 mm[Hg]Abad Jesika DO Work Phone: [phone]-[facility] LouisYthlojkoqr51-15-1291 10:37-0400Body mass index (BMI) [Ratio]33.31 kg/m2Amy Gregorio PA Work Phone: [facility] LouisDchvrzbzss03-18-5056 10:37-0400Body zsipeg15.62 kgShagufta Perkins PA Work Phone: [facility] LouisOxewfcjrhk60-95-6965 10:37-0400Diastolic blood utvtyzlt26 mm[Hg]Shagufta Perkins PA Work Phone: [facility] LouisCcqwgcxvkz09-50-4253 10:37-0400Systolic blood wziifyzp495 mm[Hg]Shagufta Perkins PA Work Phone: [phone] [place], [place] [address]Zbvbkqlbnn83-88-5217 08:55-0400Body mass index (BMI) [Ratio]33.25 kg/t6Xdrir Jesika DO Work Phone: [facility] LouisRrysobkgeh85-01-6679 08:55-0400Body ibskti11.44 kgCorey Ejsika DO Work Phone: [facility] LouisXdlsmzzacm26-84-7752 08:55-0400Diastolic blood fcjcwotr30 mm[Hg]Abad Jesika DO Work Phone: [phone] [place], [place] [address]Haiyuwfvvx48-12-1084 08:55-0400Systolic blood qcewywja359 mm[Hg]Abad Jesika DO Work Phone: [facility] LouisLvfpfntarh79-81-3297 09:14-0400Body mass index (BMI) [Ratio]33.89 kg/d1PcahevlpSay Roy NITRATING ACID MIXER Work Phone: [facility] LouisWwxcdmotlw61-58-9308 09:14-0400Body .25 kgSay Friedmanly NITRATING ACID MIXER Work Phone: [facility] LouisAutyowijtz07-36-0057 09:14-0400Diastolic blood ovnchfnr76 mm[Hg]Say Roy NITRATING ACID MIXER Work Phone: [facility] LouisZzoozvrygj35-31-1225 09:14-0400Systolic blood tstyqbhz446 mm[Hg]Say Roy NITRATING ACID MIXER Work Phone: [phone] CenterTen[facility] LouisPxdzhxizig05-12-0783 11:00-0400Body mass index (BMI) [Ratio]35.32 kg/t7Ryujl Jesika DO Work Phone: [facility] LouisEnyzpkcmol23-76-8062 11:00-0400Body zokzkr56.25 kgCorey Jesika DO Work Phone: [facility] LouisPgyvvnfrnw55-96-9139 11:00-0400Diastolic blood bzsdphii30 mm[Hg]Abad Jesika DO Work Phone: [facility] LouisGberprszmq23-38-0795 11:00-0400Systolic blood yyyztqgm961 mm[Hg]Abad Jesika DO Work Phone: [facility] LouisEkjladwzlq22-32-1892 14:07-0400Body yucgha804.64 [facility]07-[facility]-2024 14:07-0400Body mass index (BMI) [Ratio]35.9 kg/r4WimgktsrjKettering Health Springfield07-19-2024 14:07-0400Body oecqry477.15 [facility]07-19-2024 14:07-0400Diastolic blood dzeudldz78 mm[Hg][facility]07-19-2024 14:07-0400 Heart hovt517 /[facility]07-19-2024 14:07-0400Systolic blood pbsqikhj908 mm[Hg][facility]04-25-2024 15:18-0400 Body lacuyv911.64 cmK[facility]04-25-2024 15:18-0400Body mass index (BMI) [Ratio]36.8 kg/v8QxwktvleoKettering Health [facility]04-25-2024 15:18-0400Body .41 [facility]04-25-2024 15:18-0400Diastolic blood qgnulpcq176 mm[Hg][facility] 12-05-2023 15:18-0400Heart rate94 /[facility] 12-05-2023 15:18-0400Systolic blood oivsshdm433 mm[Hg][facility]12-22-2023 11:56-0500Body qzrbao332.7 cmAnnel Teresa APRN-PRODUCTION RECORDER Work Phone: [facility]12-22-2023 11:56-0500Body mass index (BMI) [Ratio]35.18 kg/m2Annel JACOBPRODUCTION RECORDER Work Phone: [facility]12-22-2023 11:56-0500Body cksglpuhrob39.2 [degF]Annel JACOBPRODUCTION RECORDER Work Phone: [facility]12-22-2023 11:56-0500Body htvyyk492.96 kgAnnel Teresa APRNClaribelPRODUCTION RECORDER Work Phone: [facility]12-22-2023 11:56-0500Diastolic blood uayrxkhv57 mm[Hg]Annel JACOBPRODUCTION RECORDER Work Phone: [facility]12-22-2023 11:56-0500Heart rate 91 /minAnnel Teresa APRNClaribelPRODUCTION RECORDER Work Phone: [facility] CampusTEOCO Corporation12-22-2023 11:56-7916ZkU1% (BldA) [Mass fraction]99 %Annel JACOBPRODUCTION RECORDER Work Phone: [facility]Legal[facility]12-22-2023 11:56-0500Systolic blood cpmwboaz006 mm[Hg]Annel JACOBPRODUCTION RECORDER Work Phone: [facility] CampusPressgram [facility] Encounters Encounter DateEncounter TypeCare ProviderFacilityStart: 06-21-2025 End: 38-79-3421Xozksqwp flow sheetCorey Jesika DO Work Phone: NODX [facility] OBGYNComment on above:28 weeks gestation of ([facility]); Third trimester ([facility]); induced hypertension, antepartum ([facility])Start: 06-21-2025 End: 48-82-3272swunukkvzeXZDIN FAZIONot AvailableStart: 06-08-2025 End: 25-61-4774Wdiqre flowsheetAmy Gregorio MIX Work Phone: [facility] OBGYNStart: 06-08-2025 End: 06-31-5936Vjnixo flowsheetShagufta MIX Work Phone: NOMS [facility] OBGYNStart: 06-08-2025 End: 18-45-3999Lisfgj outpatient visit 15 minutesShagufta MIX Work Phone: N[facility] [place] OBGYNComment on above: size inconsistent with dates ([facility]) (Primary Dx); 28 weeks gestation of ([facility]); Second trimester ([facility])Start: 06-08-2025 End: 74-97-9800mtylpmosruYIG RAMEYNot AvailableStart: 05-12-2025 End: 29-67-1088Ycufyq flowsMaria Isabel Roy NP Work Phone: [facility] [place] OBGYNStart: 05-12-2025 End: 57-72-2833Mtzzan flowsMaria Isabel Roy NP Work Phone: [facility] [place] OBGYNStart: 05-12-2025 End: 89-52-3276Upwvmmyv flow sheetSay Roy NP Work Phone: NOMS [facility] OBGYNComment on above:24 weeks gestation of ([facility]); Second trimester ([facility]); Diabetes mellitus screeningStart: 05-12-2025 End: 12-95-7982zddjqsygswSERSCXGA EBERLYNot AvailableStart: 04-15-2025 End: 10-65-4937Ebisre flowsheetCorey Jesika DO Work Phone: [facility] [place] OBGYNStart: 04-15-2025 End: 56-23-9631Amozry flowsheetCorey Jesika DO Work Phone: [facility] [place] OBGYNStart: 04-15-2025 End: 80-20-3468Yhfrhqntm Result EncounterCorey Jesika DO Work Phone: NOMS External Department UnsolicitedStart: 04-15-2025 End: 91-65-3073Ddmgtiak preventive med est patient 18-39 yrsCorey Jesika DO Work Phone: NOAX [facility] OBGYNComment on above:Second trimester ([facility]); 21 weeks gestation of ([facility]); Nausea and vomiting during ([facility]); Vaginal discharge during , antepartum ([facility])Start: 04-15-2025 End: 85-54-3142gjajbbmkmmZAXHJ FAZIONot AvailableStart: 04-08-2025 End: 57-00-5686stauribytoVTM RAMEYNot AvailableStart: 03-18-2025 End: 58-32-2296Btycelauz Result EncounterShagufta MXI Work Phone: noms External Department UnsolicitedStart: 03-18-2025 End: 04-18-7332Chnmfmes Result EncounterShagufta MIX Work Phone: noms External Department UnsolicitedStart: 03-18-2025 End: 93-80-1853Yucgejad Result EncounterShagufta Gregorio MIX Work Phone: noms External Department UnsolicitedStart: 03-18-2025 End: 66-04-0328Wnzqwzws flow sheetShagufta Gregorio PA Work Phone: NOMS [place] OBGYNComment on above:17 weeks gestation of ([facility]); Second trimester ([facility]); Subchorionic hematoma in first trimester, single or unspecified fetus ([facility]); Screening, , for anatomic survey ([facility]); Exposure to STD; Vaginal dischargeStart: 03-18-2025 End: 75-07-3614gwxfgsyzucFOD RAMEYNot AvailableStart: 03-04-2025 End: 85-84-8653cfpytyrjojPDJVGLH Isaac LARAMercy [facility] HospitalStart: 03-04-2025 End: 45-67-0526Sfcpgebjui hospital visit by Fide Sanford CNP Work Phone: [facility] LABStart: 02-18-2025 End: 48-13-3365Eomwwi flowsheetCorey Jesika DO Work Phone: NOMS BCP OBStart: 02-18-2025 End: 37-84-8736Kxpswd flowsheetCorey Jesika DO Work Phone: NOMS BCP OBStart: 02-18-2025 End: 75-17-4941apwydbfkjqQHXSE FAZIONot AvailableStart: 02-18-2025 End: 27-93-7426Frcyxzbo flow sheetCorey Jesika DO Work Phone: NOMS BCP OBComment on above:Second trimester ([facility]); 13 weeks gestation of ([facility])Start: 02-11-2025 End: 22-51-1111Fntekfwcu Result EncounterCorey Jesika DO Work Phone: NOMS External Department UnsolicitedStart: 02-11-2025 End: 29-43-0659Rwunofuaz Result EncounterCorey Jesika DO Work Phone: NOMS External Department UnsolicitedStart: 01-21-2025 End: 21-65-5069Fuqoxsdxc Result EncounterCorey Jesika DO Work Phone: NOMS External Department UnsolicitedStart: 01-21-2025 End: 94-66-7172Murmnodaf Result EncounterCorey Jesika DO Work Phone: noms External Department UnsolicitedStart: 01-21-2025 End: 23-22-1876Pesgnm outpatient visit 5 minutesNoms Bcp Ob Jesika NurseNOMS BCP OBComment on above:GA: 0s5bXgwbm: 01-21-2025 End: 10-22-3076slixxgbzmkBPIJT FAZIONot AvailableStart: 01-13-2025 End: 79-44-9567Vwsjyk flowsheetSay Roy NITRATING ACID MIXER Work Phone: NOMS BCP OBStart: 01-13-2025 End: 69-30-0921Vkymla flowsheetSay Roy NITRATING ACID MIXER Work Phone: NOMS BCP OBStart: 01-13-2025 End: 83-81-7309uloofzdfeiBJYFFFMI EBERLYNot AvailableStart: 01-13-2025 End: 20-47-1286Rhxjdz outpatient visit 15 minutesSay Ryo NITRATING ACID MIXER Work Phone: noms [facility] OBComment on above:GA: 9z3kMbsmz: 12-01-2024 End: 76-77-7911Skwkkg flowsheetCorey Jesika DO Work Phone: noms BCP OBStart: 12-01-2024 End: 73-93-6871Chbafxflb Result EncounterCorey Jesika DO Work Phone: noms External Department UnsolicitedStart: 12-01-2024 End: 36-07-6671Faauqgxdr Result EncounterCorey Jesika DO Work Phone: noms External Department UnsolicitedStart: 12-01-2024 End: 80-39-3509Lfqzqp outpatient visit 15 minutesCorey Jesika DO Work Phone: noms [facility] OBComment on above:Female infertility; PCOS (polycystic ovarian syndrome); Abnormal uterine bleeding (AUB); Endometriosis; Insulin resistanceStart: 12-01-2024 End: 91-53-9768xoctugbkyfLLBCL FAZIONot AvailableStart: 03-25-2024 End: 32-96-1467Uylryebri Result EncounterCorey Jesika DO Work Phone: noms External Department UnsolicitedStart: 03-25-2024 End: 77-77-2328Wotzsdmvs Result EncounterCorey Jesika DO Work Phone: noms External Department UnsolicitedStart: 02-28-2024 End: 31-05-3004kyhdlwffqfTptpesozmMercy Health [facility] Work Phone: Start: 02-28-2024 End: 22-37-8351Bxlfpff encounter procedureNov[facility] Work Phone: Start: 12-05-2023 End: 68-18-0970dgfjveofsrXipikyjnwMercy Health St[facility] Work Phone: Start: 12-05-2023 End: 71-42-7652Faczwoi encounter procedureNov[facility] Work Phone: Start: 12-03-2023 End: 12-55-8049Thtadwocz encounterAnnel Ivana Teresa WADER [employer]OT TOP ASSEMBLER-PRODUCTION RECORDER Work Phone: [facility] MedicineStart: 08-02-2023 End: 89-03-9053Rgdxsd outpatient visit 15 minutesAnnel Ivana Teresa [employer]ADER [employer] TOP ASSEMBLER-PRODUCTION RECORDER Work Phone: [facility] Family MedicineComment on above:Acute non-recurrent maxillary sinusitis (Primary Dx); Non-recurrent acute serous otitis media of both ears; Elevated blood pressure readingStart: 01-10-2023 End: 27-01-4098mzoswmkugnJVNY [facility] Hospitaltart: 01-10-2023 End: 34-14-6798Ceranemwiu hospital visit by physicianAnnel Teresa WADER BOOT TOP ASSEMBLER - [employer]ERIFF SERGEANT Work Phone: [facility] LaboratoryStart: 02-26-2022 End: 18-95-2706iedfknaqjbBQ ABAD FAZIOFacility:E8Lgbcp: 23-73-6891Ajbeuyzmv for preprocedural laboratory examinationDR ABAD [facility] Hospitaltart: 06-30-2021 End: 97-84-3073zjnqtgzoujWK ABAD FAZIOFacility:D2Arieg: 96-76-5748Jdxtupuni for other preprocedural examinationDR ABAD [facility] HospitalStart: 06-27-2021 End: 55-29-5806cudclnvipqSF ABAD FAZIOFacility:Y3Mroka: 06-27-2021 End: 27-11-8733Ltximjdwn for preprocedural laboratory examinationDR ABAD JESIKA Facility:D4Qvqva: 06-21-2021 End: 53-74-5688raaqcduxqyPR ABAD FAZIOFacility:B0Fazbu: 06-21-2021 End: 76-01-8685Blkrtcliz for other preprocedural examinationDR [facility] Facility:H1 Procedures DateProcedureProcedure DetailPerforming ClinicianStart: 09-36-7097Ctquc dip stick/tablet rgnt non-auto w/o micrscpCorey Jesika DO Work Phone: Start: 91-47-1904Cmhio dip stick/tablet rgnt non-auto w/o micrscpAmy Gregorio MIX Work Phone: Start: 25-47-1698Mmsvo dip stick/tablet rgnt non-auto w/o micrscpKrkylah Roy NP Work Phone: Start: 69-56-1825WYH,APTIMA HPV,AGE GDLNCorey Jesika DO Work Phone: Start: 04-59-8755YZH, SERUM, OPEN SPINA BIFIDAAmaria alejandra MIX Work Phone: Start: 16-59-6548ZRIXZJQDT VAGINITIS (HTRX)Shagufta MIX Work Phone: Start: 44-56-7764Eubqd dip stick/tablet rgnt non-auto w/o micrscpAmy Gregorio MIX Work Phone: Start: 74-21-1073Jqwfu dip stick/tablet rgnt non-auto w/o micrscpCorey Jesika DO Work Phone: Start: 95-47-5484EI OB TRANSVAGINALCorey Jesika DO Work Phone: Start: 27-12-8938ABO HEMOGLOBIN U0VMelyl Jesika DO Work Phone: Start: 01-21-2025 End: 88-71-4934Athqf dip stick/tablet rgnt non-auto w/o micrscpCorey Jesika DO Work Phone: Start: 74-20-7563Cwlxc dip stick/tablet rgnt non-auto w/o micrscpKrkylah Roy NITRATING ACID MIXER Work Phone: Start: 37-44-3075HUY CBC WITH AUTO DIFFCorey Jesika DO Work Phone: Start: 12-01-2024 End: 24-32-7597Bssen dip stick/tablet rgnt non-auto w/o micrscpCorey Jesika DO Work Phone: Start: 30-77-3567WLK,APTIMA HPV,AGE GDLNCorey Jesika DO Work Phone: Start: 68-37-9830Ousdk depression screening assessment Annel Teresa WADER [employer] TOP ASSEMBLER-PRODUCTION RECORDER Work Phone: Start: 10-24-6798Ylpudiwugby observation [Identifier] in Cervix by Cyto stainAnnel Teresa WADER [employer]OT TOP ASSEMBLER-PRODUCTION RECORDER Work Phone: Start: 83-35-8973Attqwwjjzzmof metabolic panelUnknown Provider Result Plan of Treatment DateCare ActivityDetailAuthorStart: 66-47-5053Vdeajyrdg for malignant neoplasm of cervixPap SmearProStrolbyca [facility] SystemStart: 07-06-2025 End: 71-86-7830Crsknfa encounter xzwxhicyu17/25/2025 10:40 AM EST Routine [facility] [address] [place] [phone] Abad Canchola DO [address] [place] [address] NOMFatimah [place] OBGYNStart: 06-28-2025 End: 44-03-1125Sujiyeo encounter xzyxymvni29/17/2025 3:30 PM EST Routine [facility] [address] [place], [phone] Say Roy, NITRATING ACID MIXER [address] [place] [phone] NOMFatimah [place] OBGYNStart: 06-21-2025 End: 89-16-8534Vrgipew encounter /10/2025 3:30 PM EST Routine [facility] [address] [place], [id number] Abad Canchola DO [address] [place] [address] N[facility] [place] OBGYNStart: 06-21-2025 End: 56-54-9888Gifeewsnxyom / ancillary services drzerkuhfi74/10/2025 3:00 PM EST Ancillary Procedure [facility] [address] [place] [phone] [facility] [place] OBGYNStart: 06-21-2025 End: 32-85-6365Ghvidqf aminotransferase [Enzymatic activity/volume] in Serum or PlasmaALT Lab Routine induced hypertension, antepartum ([facility]) Expected: 06/21/2025 (Approximate), Expires: 06/21/2026[facility] HealthcareComment on above:Expected: 06/21/2025 (Approximate), Expires: 06/21/2026Start: 06-21-2025 End: 00-55-5238Pjoxglkbm aminotransferase [Enzymatic activity/volume] in Serum or PlasmaAST Lab Routine induced hypertension, antepartum ([facility]) Expected: 06/21/2025 (Approximate), Expires: 06/21/2026[facility] HealthcareComment on above:Expected: 06/21/2025 (Approximate), Expires: 06/21/2026Start: 06-21-2025 End: 23-38-9755RSM W Auto Differential panel - BloodCBC and differential Lab Routine induced hypertension, antepartum ([facility]) Expected: 06/12 (Approximate), Expires: 06/21/2026[facility] HealthcareComment on above: Expected: 06/21/2025 (Approximate), Expires: 06/21/2026Start: 06-21-2025 End: 96-05-2913Cbjeysaafa [Mass/volume] in Serum or PlasmaCreatinine Lab Routine induced hypertension, antepartum ([facility]) Expected: 06/21/2025 (Ap proximate), Expires: 06/21/2026[facility] Healthcare Work Phone: comment on above:Expected: 06/21/2025 (Approximate), Expires: 06/21/2026Start: 06-21-2025 End: 78-26-2421Nxntbzd dehydrogenase [Enzymatic activity/volume] in Serum or Plasma by Lactate to pyruvate reactionLactate dehydrogenase Lab Routine induced hypertension, antepartum ([facility]) Expected: 06/21/2025, Expires: 06/21/2026[facility] HealthcareComment on above:Expected: 06/21/2025, Expires: 06/21/2026Start: 06-21-2025 End: 97-22-8672Qipytgp, urine, 24 hourProtein, urine, 24 hour Lab Routine induced hypertension, antepartum ([facility]) Expected: 06/21/2025 (Approximate), Expires: 06/21/2026[facility] HealthcareComment on above:Expected: 06/21/2025 (Approximate), Expires: 06/21/2026Start: 06-21-2025 End: 67-75-2433Lw and pttPt and ptt Lab Routine induced hypertension, antepartum ([facility]) Expected: 06/21/2025, Expires: 06/21/2026[facility] Healthcare Comment on above:Expected: 06/21/2025, Expires: 06/21/2026Start: 06-21-2025 End: 91-25-5369Qiwbe [Mass/volume] in Serum or PlasmaUric acid Lab Routine induced hypertension, antepartum ([facility]) Expected: 06/21/2025 (Hilary roximate), Expires: 06/21/2026[facility] HealthcareComment on above:Expected: 06/21/2025 (Approximate), Expires: 06/21/2026Start: 06-21-2025 End: 23-89-1976Gioe nitrogen [Mass/volume] in Serum or PlasmaBUN Lab Routine induced hypertension, antepartum ([facility]) Expected: 06/21/2025, Expires:06/21/2026[facility] HealthcareComment on above:Expected: 06/21/2025, Expires: 06/21/2026Start: 06-08-2025 End: 27-84-4247KF for pregnancyUS OB follow up transabdominal approach Imaging Routine size inconsistent with dates ([facility]) Expected: 06/08/2025, Expires: 10/09/2025[facility] Work Phone: comment on above:Expected: 06/08/2025, Expires: 10/09/2025Start: 06-08-2025 End: 17-27-2142Cbfnzgx encounter whjgwtuig26/28/2025 8:30 AM EDT Routine [facility] [address] [place], [id number] Shagufta Perkins PA [address] [facility] [address] [facility] [address] [place], [place] [id number] ArrivedNO Logan OBGYNComment on above:ArrivedStart: 05-12-2025 End: 29-92-7402TUX panel - Blood by Automated countCBC Lab Routine Diabetes mellitus screening Expected: 05/12/2025 (Approximate), Expires: 05/12/2026[facility] Work Phone: comment on above:Expected: 05/12/2025 (Approximate), Expires: 05/12/2026Start: 05-12-2025 End: 53-84-3897Ihoeamyovcp of glucose 1 hour after glucose challenge for glucose tolerance testGlucose tolerance, 1 hour Lab Routine Diabetes mellitus screening Expected: 05/12/2025 (Approximate), Expires: 05/12/2026[facility] HealthcareComment on above:Expected: 05/12/2025 (Approximate), Expires: 05/12/2026Start: 05-12-2025 End: 63-02-6494Nhwmyqm encounter procedureNOMS Ford OBGYNComment on above: ArrivedStart: 04-15-2025 End: 02-54-1474Tewpepo encounter procedureNOMS [place] OBGYNComment on above: ArrivedStart: 27-26-5439EPAWY-19 Vaccine ( season)COVID-19 Vaccine ( season)NOMS HealthcareStart: 96-47-0977Openhzyhd vaccinationNOKY HealthcareStart: 04-08-2025 End: 52-35-4591Jshkckwhscko / ancillary services zhiehsqjue55/28/2025 8:00 AM EDT Ancillary Procedure [facility] [place] [facility] [address] [place] [phone] [facility]ue OBGYNStart: 04-05-2025 End: 34-85-8643Njqvpwr encounter ekomlflvx71/25/2025 10:20 AM EDT Office Visit [facility] [address] [phone] Abad Canchola DO [address] [facility] [place] [address] NOMS BCP OBStart: 03-18-2025 End: 38-78-4258Pyexf fetoprotein, maternalAlpha fetoprotein, maternal Lab Routine 17 weeks gestation of ([facility]) Second trimester ([facility]) Expected: 03/18/2025 (Approximate), Expires: 04/18/2025[facility] Comment on above:Expected: 03/18/2025 (Approximate), Expires: 04/18/2025Start: 03-18-2025 End: 68-43-3384FQ for pregnancyUS OB 14+ weeks anatomy scan Imaging Routine Screening, , for anatomic survey ([facility]) Expected: 03/18/2025, Expires: 06/18/2025[facility] LouisComment on above:Expected: 03/18/2025, Expires: 06/18/2025Start: 03-18-2025 End: 12-57-7536Jpctiyd encounter jgzzzbovk01/07/2025 10:30 AM EDT Routine [facility] [address] [place] [phone] Shagufta Perkins PA [address] [place], [place] [id number] NOMS BCP OBStart: 03-18-2025 End: 47-36-9129Efpvsrbfvyps / ancillary services uuaoxbeoly60/07/2025 10:00 AM EDT Ancillary Procedure [facility] OB [address] [place], [place] [phone] NOMS BCP OBStart: 25-97-8349Cxwjkputi vaccinationFlu vaccine (#1)Huseyin [facility] HospitalStart: 02-18-2025 End: 48-71-9743Jqtfiwt encounter pwamuqtrz19/10/2025 8:40 AM EDT Routine [facility] [address] [place] [address] Abad Canchola, [address] [place] [address] NOMS BCP OBStart: 01-21-2025 End: 69-41-9035CUS/RhABO/Rh Lab Routine Missed menses , unspecified gestational age ([facility]) Expected: 01/21/2025 (Approximate), Expires: 01/21/2026[facility] HealthcareComment on above:Expected: 01/21/2025 (Approximate), Expires: 01/21/2026Start: 01-21-2025 End: 16-03-9047qnfnqspiyj85/12/2025 2:00 PM EDT Initial NOM[facility] [address] [place] [address] NOMS BCP OBStart: 01-21-2025 End: 01-06-5563Umdrl type and Indirect antibody screen panel - BloodType and screen Lab Routine Missed menses , unspecified gestational age ([facility]) Expected: 01/21/2025 (Approximate), Expires: 01/21/2026[facility] Work Phone: comment on above:Expected: 01/21/2025 (Approximate), Expires: 01/21/2026Start: 01-21-2025 End: 96-93-8853Yeixo of abuse panel - Urine by Screen methodRapid drug screen, urine Lab Routine , unspecified gestational age ([facility]) Encounter for supervision of normal first in first trimester ([facility]) Expected: 01/21/2025 (Approximate), Expires: 01/21/2026NOMS HealthcareComment on above: Expected: 01/21/2025 (Approximate), Expires: 01/21/2026Start: 01-21-2025 End: 28-12-7650Lhvlbztfsgbw / ancillary services cjgickjlqs03/12/2025 1:30 PM EDT Ancillary Procedure [facility] OB [address] [place] [address] YJMY BCP OBStart: 12-17-2024 End: 56-71-1427Yddxvnbhjgcg / ancillary services hovzymqeip92/08/2025 8:00 AM EDT Ancillary Procedure [facility] OB [address] [place] [address] WZRQ BCP OBStart: 12-01-2024 End: 03-00-9479Ynfbhfiuvgqpt hormone ([facility])Antimullerian hormone ([facility]) Lab Routine Abnormal uterine bleeding (AUB) Endometriosis Expected: 12/01/2024 (Approximate), Expires: 12/01/2025NOMS HealthcareComment on above:Expected: 12/01/2024 (Approximate), Expires: 12/01/2025Start: 12-01-2024 End: 68-23-4213FAHZFWIZ Lab Routine PCOS (polycystic ovarian syndrome) Expected: 12/01/2024 (Approximate), Expires: 12/01/2025NOMS HealthcareComment on above: Expected: 12/01/2024 (Approximate), Expires: 12/01/2025Start: 12-01-2024 End: 36-33-7026QR PelvisUS Pelvis w/ TV Imaging Routine PCOS (polycystic ovarian syndrome) Expected: 12/01/2024, Expires: 12/01/2025NOMS HealthcareComment on above:Expected: 12/01/2024, Expires: 12/01/2025Start: 38-08-6844Ugkfj BMI ScreeningAdult BMI ScreeningProUniversity Hospitals Cleveland Medical Centertart: 25-51-5432Abgicftbfa ScreeningDepression ScreeningPaulding County Hospital SystemStart: 36-67-5972Axglsjy ScreeningTobacco ScreeningPaulding County Hospital SystemStart: 95-66-1268IRNBE-19 Vaccine ( season)COVID-19 Vaccine ( season)Huseyin [facility] HealthStart: 66-88-5960Zuzghcdeb vaccinationNOKY HealthcareStart: 84-73-2495Qahdk BMI Follow Up PlanAdult BMI Follow Up PlanPaulding County Hospital SystemStart: 29-82-9213Lozzt BMI ScreeningAdult BMI ScreeningPaulding County Hospital SystemStart: 83-63-7710Wysbmvcqn for Chlamydia trachomatisChlamydia Screening [facility] HospitalComment on above:Postponed from 1999 (Not Indicated)Start: 58-59-0803Coecoqvks vaccinationInfluenza VaccinePaulding County Hospital SystemStart: 92-54-2953Tzcjgufpg vaccinationFlu vaccine (Season Ended) WYANDOTStart: 04-92-9991LIjD,Tdap and Td Vaccines (7 - Td or Tdap)DTaP,Tdap and Td Vaccines (7 - Td or Tdap)[facility] SystemStart: 99-82-5837BLhF/Tdap/Td vaccine (1 - Tdap)DTaP/Tdap/Td vaccine (1 - Tdap)WYANDOTStart: 2018 Hepatitis B Vaccines (1 of 3 - 19+ 3-dose series)Hepatitis B Vaccines (1 of 3 - 19+ 3-dose series)[facility]S HealthcareStart: 24-67-3954AEF Vaccines (1 - 3-dose series)HPV Vaccines (1 - 3-dose series)NOMS HealthcareStart: 67-01-0379Alrdixp of varicella vaccinationVaricella Vaccines (1 of 2 - 13+ 2-dose series)NOMS HealthcareStart: 31-28-8699XVbP/Tdap/Td Vaccines (1 - Tdap)DTaP/Tdap/Td Vaccines (1 - Tdap)[facility]OMS HealthcareStart: 48-76-6044ZLY Vaccines (1 of 1 - Standard series)MMR Vaccines (1 of 1 - Standard series)NOMS HealthcareStart: 03-20-2000 COVID-19 Vaccine (#1)COVID-19 Vaccine (#1)WYANDOTBacteria identified in Urine by CultureUrine culture Microbiology Routine Missed menses Ordered: 01/21/2025[facility] HealthcareComment on above:Ordered: 01/21/2025BC W Auto Differential panel - BloodCBC and differential Lab Routine PCOS (polycystic ovarian syndrome) Ordered: 12/01/2024[facility] HealthcareComment on above:Ordered: 12/01/2024BC W Auto Differential panel - BloodCBC and differential Lab Routine Missed menses , unspecified gestational age ([facility]) Ordered: 01/21/2025[facility] HealthcareComment on above:Ordered: 01/21/2025HLAMYDIA TRACHOMATIS (GENITO/STI) CHLAMYDIA TRACHOMATIS (GENITO/STI) Lab Routine Exposure to STD Ordered: 03/18/2025[place] HealthcareComment on above:Ordered: 03/18/2025HLAMYDIA TRACHOMATIS (GENITO/STI)CHLAMYDIA TRACHOMATIS (GENITO/STI) Lab Routine Vaginal discharge during , antepartum ([facility]) Ordered: 04/15/2025[facility] HealthcareComment on above:Ordered: 04/15/2025ytology Cervical or vaginal smear or scraping studyPap Smear Pathology and Cytology Routine Second trimester ([facility]) 21 weeks gestation ofpregnancy ([facility]) Ordered: 04/15/2025 [facility] Healthcare Work Phone: comment on above:Ordered: 04/15/2025DHEA-sulfateDHEA- sulfate Lab Routine PCOS (polycystic ovarian syndrome) Ordered: 12/01/2024[facility] HealthcareComment on above:Ordered: 12/01/2024Follicle stimulating hormone Follicle stimulating hormone Lab Routine PCOS (polycystic ovarian syndrome) Ordered: 12/01/2024[facility] HealthcareComment on above:Ordered: 12/01/2024hCG, quantitative, pregnancyhCG, quantitative, Lab Routine PCOS (polycystic ovarian syndrome) Ordered: 12/01/2024[facility] Healthcare Work Phone: comment on above:Ordered: 12/01/2024Hemoglobin A1c/Hemoglobin.total in BloodHemoglobin A1c Lab Routine Abnormal uterine bleeding (AUB) Endometriosis Ordered: 12/01/2024[facility] HealthcareComment on above: Ordered: 12/01/2024Hemoglobin A1c/Hemoglobin.total in BloodHemoglobin A1c Lab Routine Missed menses , unspecified gestational age ([facility]) Ordered: 01/21/2025[facility] HealthcareComment on above:Ordered: 01/21/2025Hepatitis B virus surface Ag [Presence] in Serum or Plasma by ImmunoassayHepatitis B surface antigen Lab Routine Missed menses , unspecified gestational age ([facility]) Ordered: 01/21/2025[facility] HealthcareComment on above:Ordered: 01/21/2025 Hepatitis C virus Ab [Presence] in Serum or Plasma by ImmunoassayHepatitis C antibody Lab Routine Missed menses , unspecified gestational age ([facility]) Ordered: 01/21/2025[facility] HealthcareComment on above:Ordered: 01/21/2025 HIV-1/HIV-2 antigen/antibody combination immunoassayHIV-1 and HIV-2 antibodies Lab Routine Missed menses , unspecified gestational age ([facility]) Ordered: 01/21/2025[facility] HealthcareComment on above:Ordered: 01/21/2025 Luteinizing hormoneLuteinizing hormone Lab Routine PCOS (polycystic ovarian syndrome) Ordered: 12/01/2024[facility] HealthcareComment on above:Ordered: 12/01/2024 Neisseria gonorrhoeae DNA [Presence] in Unspecified specimen by SANJANA with probe detectionNeisseria gonorrhea DNA probe, direct Lab Routine Exposure to STD Ordered: 03/18/2025[facility] HealthcareComment on above:Ordered: 03/18/2025Neisseria gonorrhoeae DNA [Presence] in Unspecified specimen by SANJANA with probe detection Neisseria gonorrhea DNA probe, direct Lab Routine Vaginal discharge during , antepartum ([facility]) Ordered: 04/15/2025[facility] HealthcareComment on above:Ordered: 04/15/2025Protein/Creatinine [Mass Ratio] in Urine Protein:Creatinine Ratio, Urine Lab Routine induced hypertension, antepartum ([facility]) Ordered: 06/21/2025[facility] HealthcareComment on above:Ordered: 06/21/2025 End: 22-92-5221Duflhhuzllu [facility] Phone: Comment on above:Once for 1 Occurrences starting 03/04/2025 until 03/04/2025Reagin Ab [Presence] in Serum by RPRRPR Lab Routine Missed menses , unspecified gestational age ([facility]) Ordered: 01/21/2025[facility] HealthcareComment on above:Ordered: 01/21/2025Rubella antibody, IgGRubella antibody, IgG Lab Routine Missed menses , unspecified gestational age ([facility]) Ordered: 01/21/2025[facility] HealthcareComment on above: Ordered: 01/21/2025SURESWAB(R) ADVANCED VAGINITIS PLUS, TMASURESWAB(R) ADVANCED VAGINITIS PLUS, TMA Pathology and Cytology Routine Vaginal discharge Ordered: 0 03/18/2025[facility] Work Phone: comment on above:Ordered: 03/18/2025SURESWAB(R) ADVANCED VAGINITIS PLUS, TMASURESWAB(R) ADVANCED VAGINITIS PLUS, TMA Pathology and Cytology Routine Vaginal discharge during , antepartum ([facility]) Ordered: 04/15/2025[facility] HealthcareComment on above:Ordered: 04/15/2025 Thyrotropin [Units/volume] in Serum or PlasmaTSH Lab Routine PCOS (polycystic ovarian syndrome) Ordered: 12/01/[facility]:Ordered: 12/01/2024Thyroxine (T4) free [Mass/volume] in Serum or PlasmaT4, free Lab Routine PCOS (polycystic ovarian syndrome) Ordered: 12/01/2024[facility] Comment on above:Ordered: 12/01/2024 Immunizations Immunization DateImmunizationNotesCare ZgafqxnhUxzvzdkt10-42-6983cygaumnhm, injectable, quadrivalent, preservative freeMary Kuns WADER BOOT TOP ASSEMBLER-PRODUCTION RECORDER Work Phone: [facility] CampusTalaent[facility] Mcl[facility] RegionVgpevg56-23-6345dgmqppvtj virus vaccine, unspecified formulationMary Kuns WADER BOOT TOP ASSEMBLER-PRODUCTION RECORDER Work Phone: [facility] HospitalHnxvmy90-90-7705HCPOV-95, mRNA, LNP- S, PF, 100mcg/0.5mL DoseMary Kuns WADER BOOT TOP ASSEMBLER-PRODUCTION RECORDER Work Phone: [facility] HospitalMkafbj90-35-9389WGTNI-72, mRNA, LNP- S, PF, 100mcg/0.5mL DoseAnnel Treesa WADER BOOT TOP ASSEMBLER-PRODUCTION RECORDER Work Phone: [facility] HospitalNnkwhn22-63-5455cvvrbgrhk, injectable, quadrivalent, preservative freeAnnel Teresa WADER BOOT TOP ASSEMBLER-PRODUCTION RECORDER Work Phone: [facility] HospitalCwbqat21-18-9402hqqdnhezd A vaccine, pediatric/adolescent dosage, 2 dose scheduleAnnel Teresa WADER BOOT TOP ASSEMBLER-PRODUCTION RECORDER Work Phone: [facility]07-28-2017Human Papillomavirus 9-valent vaccineAnnel Teresa WADER BOOT TOP ASSEMBLER-PRODUCTION RECORDER Work Phone: [facility] HospitalVzysny08-29-5749qizvozjssckdm oligosaccharide (groups A, C, Y and W-135) diphtheria toxoid conjugate vaccine (MCV4O)Annel Teresa WADER BOOT TOP ASSEMBLER-PRODUCTION RECORDER Work Phone: [facility]10-30-2012human papilloma virus vaccine, quadrivalentAnnel Teresa WADER BOOT TOP ASSEMBLER-PRODUCTION RECORDER Work Phone: [facility] [employer] Wcwcxe37-70-7641axdidwdismvsy polysaccharide (groups A, C, Y and W-135) diphtheria toxoid conjugate vaccine (MCV4P)Annel Teresa WADER BOOT TOP ASSEMBLER-PRODUCTION RECORDER Work Phone: [facility] HospitalYgzwwu64-72-1246lzdeqacpu virus vaccineAnnel Teresa WADER BOOT TOP ASSEMBLER-PRODUCTION RECORDER Work Phone: [facility] HospitalKgboax10-56-9264juthjspqg A vaccine, pediatric/adolescent dosage, 2 dose scheduleAnnel Teresa WADER BOOT TOP ASSEMBLER-PRODUCTION RECORDER Work Phone: [facility]09-12-2012human papilloma virus vaccine, quadrivalentAnnel Teresa WADER BOOT TOP ASSEMBLER-PRODUCTION RECORDER Work Phone: [facility]09-12-2012tetanus toxoid, reduced diphtheria toxoid, and acellular pertussis vaccine, adsorbedAnnel Teresa WADER BOOT TOP ASSEMBLER-PRODUCTION RECORDER Work Phone: [facility] HospitalDpfgsg74-16-0343zcyvlmzfbq, tetanus toxoids and acellular pertussis vaccine, unspecified 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 Teresa WADER BOOT TOP ASSEMBLER-PRODUCTION RECORDER Work Phone: [facility]07-07-2005measles, mumps and rubella virus vaccineAnnel Teresa WADER BOOT TOP ASSEMBLER-PRODUCTION RECORDER Work Phone: [facility] HospitalMghrqv59-81-3000wxlacpcdqi vaccine, inactivatedAnnel Teresa WADER BOOT TOP ASSEMBLER-PRODUCTION RECORDER Work Phone: [facility] HospitalTibayp05-53-4754bqehnvxfes, tetanus toxoids and acellular pertussis vaccine, unspecified 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 Teresa WADER BOOT TOP ASSEMBLER-PRODUCTION RECORDER Work Phone: [facility] HospitalShjupp43-75-9014ywboqacyuli influenzae type b conjugate and Hepatitis B vaccineAnnel Teresa WADER BOOT TOP ASSEMBLER-PRODUCTION RECORDER Work Phone: [facility]04-26-2001measles, mumps and rubella virus vaccineAnnel eTresa WADER BOOT TOP ASSEMBLER-PRODUCTION RECORDER Work Phone: [facility] HospitalXbecje38-15-9922oyvnuvcwvp vaccine, inactivatedAnnel Teresa WADER BOOT TOP ASSEMBLER-PRODUCTION RECORDER Work Phone: [facility] HospitalAqzwzk19-06-2171ryuhmscie virus vaccineAnnel Teresa WADER BOOT TOP ASSEMBLER-PRODUCTION RECORDER Work Phone: [facility] HospitalNaogpx32-54-0039iqxuddflez, tetanus toxoids and acellular pertussis vaccine, unspecified 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 Teresa WADER BOOT TOP ASSEMBLER-PRODUCTION RECORDER Work Phone: [facility] HospitalBhdmtd61-95-6113rdasqiddaxp influenzae type b vaccine, PRP-OMP conjugateAnnel Teresa WADER BOOT TOP ASSEMBLER-PRODUCTION RECORDER Work Phone: [facility] HospitalQcofua29-77-1798mdftalayzd, tetanus toxoids and acellular pertussis vaccine, unspecified 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 Teresa WADER BOOT TOP ASSEMBLER-PRODUCTION RECORDER Work Phone: [facility] HospitalDsjpew12-82-2360wdyqvtexwxz influenzae type b conjugate and Hepatitis B vaccineAnnel Teresa WADER BOOT TOP ASSEMBLER-PRODUCTION RECORDER Work Phone: [facility] HospitalHmlgbd64-57-0665ukujhkdhti vaccine, inactivatedAnnel Teresa WADER BOOT TOP ASSEMBLER-PRODUCTION RECORDER Work Phone: [facility] HospitalLthuyc90-98-5934bdsslvwwuf, tetanus toxoids and acellular pertussis vaccine, unspecified 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 Teresa WADER BOOT TOP ASSEMBLER-PRODUCTION RECORDER Work Phone: [facility] HospitalKzoccb25-02-4546svgwdtronwz influenzae type b conjugate and Hepatitis B vaccineAnnel Teresa WADER BOOT TOP ASSEMBLER-PRODUCTION RECORDER Work Phone: [facility] HospitalIxqzji90-52-1239rprdkvsbgy vaccine, inactivatedAnnel Teresa WADER BOOT TOP ASSEMBLER-PRODUCTION RECORDER Work Phone: [facility] Payers DatePayer CategoryPayerPolicy [id number] Krebs Blue Shield [id number] [id number] Health [id number] [id number] 1.2.840.517606.1.13.239.2.7.3.439872. Medicaid1.2.840.661529.1.13.693.2.7.3.886995.40273-06-8255Adwmnqs Health Insurance1.2.840.008268.1.13.693.2.7.9.838316.214214.44101-65-0828Iixrwvb 1.2.840.074426.1.13.693.2.7.3.091[id number] 2.16.840.1.306101.3.57[id number] 2.16.840.1.893970.3.579.[id number] 2.16.840.1.045992.3.579.2.21183-32-5159Qphqbih9538971 2.16.840.1.184735.3.57[id number] 2.16.840.1.728910.3.57[id number] 2.16.840.1.650035.3.57[id number] 2.16840.1.706916.3.57[id number] 2.16.840.1.979446.3.57[id number] 2.16.840.1.349283.3.57[id number] 2.16.840.1.444741.3.579.[id number] 2.16.840.1.264640.3.579.2.7604 [id number] 2.16.840.1.891975.3.57[id number] 2.16.840.1.239775.3.579.2.5[id number] 2.16.840.1.003564.3.57[id number] 2.16.840.1.168523.3.579.[id number] 2.16.840.1.749476.3.579.[id number] 2.16.840.1.224186.3.57[id number] 2.16.840.1.852620.3.579.2.66[id number] 2.16.840.1.265871.3.579.2.649837-73-4622[facility] [id number] [id number] NbgpgjqrlMPX5880 37l97sku-6249-9z04-79f8-041865814eo8 Social History DateTypeDetailFacilityTobacco smoking status NHISTobacco smoking consumption unknownWYANDOT Work Phone: start: 05-68-9774Riw Assigned At BirthNot on file [facility] Work Phone: start: 03-03-2023 End: 95-04-9675Afszzgr smoking status NHISNever smoked tobacco (finding) [facility]: 53-00-1082Aha Assigned At BirthFemale [facility]: 03-25-2024 End: 19-64-1410Aoicuptag beverage intakeLifetime non-drinker (finding)[facility] HealthcareStart: 03-25-2024 End: 80-35-2305Wluvvme of Social functionProMediAultman Orrville Hospital SystemStart: 03-25-2024 End: 12-65-7889Oihhwdx use panelProAvita Health System SystemStart: 38-53-3096Cdzmpqd use and exposureSmokeless tobacco non-userProAvita Health System SystemStart: 63-77-3943Wyumnqq intakeEx-drinker (finding)[facility] SystemStart: 54-99-2277Ymi hard is it for you to pay for the very basics like food, housing, medical care, and heatingNot hard at [facility] CenterPressgram SystemStart: 05-04-2022 Gender identityIdentifies as female gender (finding)[facility] Start: 26-78-0782SzrsfdoxmXCFITrousdale Medical CenterStart: 43-13-3316IluMfvqed (finding)[facility] Clinical Notes 06-30-2021 to 06-21-2025 Note Date & EkyfJgwfGwpyrvxi63-92-0769 History of Present illness Narrative* Cecilia Khan, HUMANITIES INSTRUCTOR - 06/21/2025 3:40 PM EST Reason for [...] nursing note reviewed. Exam conducted with a vascular technologist sonographer present. Vitals: Estimated body mass index is 35.19 kg/m as calculated from the following: Height as of 09/24/19: 5' 6 . Weight as of this encounter: 218 lb. BP: Patient's last menstrual period was 11/19/2024 (approximate). Assessment/Plan ICD-10-CM 1. 28 weeks gestation of ([facility]) Z3A.28 POCT urinalysis dipstick manually resulted 2. Third trimester ([facility]) Z34.93 POCT urinalysis dipstick manually resulted 3. induced hypertension, antepartum ([facility]) O13.9 Creatinine Protein, urine, 24 hour Pt [...] of: Abad Canchola DO documented in this encounterTenet St. LouisSbqmcmeklc48-68-2763 History of Present illness Narrative* DOMINGUEZ Villagran [...] nursing note reviewed. Exam conducted with a vascular technologist sonographer present. Vitals: Estimated body mass index is 34.4 kg/m as calculated from the following: Height as of 09/24/19: 5' 6 . Weight as of this encounter: 213 lb 1.9 oz. BP: 124/82 Patient's last menstrual period was 11/19/2024 (approximate). Assessment/Plan ICD-10-CM 1. 28 weeks gestation of ([facility]) Z3A.28 POCT urinalysis dipstick manually resulted 2. Second trimester ([facility]) Z34.92 POCT urinalysis dipstick manually resulted Return [...] behalf of: DOMINGUEZ Villagran documented in this encounterTen[facility] St. LouisHmlkvfsmib00-82-4389 History of Present illness Narrative* Say Roy [...] nursing note reviewed. Exam conducted with a vascular technologist sonographer present. Vitals: Estimated body mass index is 33.25 kg/m as calculated from the following: Height as of 09/24/19: 5' 6 . Weight as of 04/15/25: 206 lb. BP: Patient's last menstrual period was 11/19/2024 (approximate). ASSESSMENT & PLAN ICD-10-CM 1. 24 weeks gestation of ([facility]) Z3A.24 POCT urinalysis dipstick manually resulted 2. Second trimester ([facility]) Z34.92 3. Diabetes mellitus screening Z13.1 CBC [...] of: Say Roy NP documented in this encounterTenet St. LouisQixctchojb59-98-0265 History of Present illness Narrative* Chelsie Arango [...] nursing note reviewed. Exam conducted with a vascular technologist sonographer present. Vitals: Estimated body mass index is 33.25 kg/m as calculated from the following: Height as of 09/24/19: 5' 6 . Weight as of this encounter: 206 lb. BP: 116/72 Patient's last menstrual period was 11/19/2024 (approximate). ASSESSMENT & PLAN ICD-10-CM 1. Second trimester ([facility]) Z34.92 Pap Smear 2. 21 weeks gestation of ([facility]) Z3A.21 Pap Smear 3. Nausea and vomiting during ([facility]) O21.9 metoclopramide (Reglan) 10 MG tablet 4. Vaginal discharge during , antepartum ([facility]) O26.899 N89.8 Return OB/Annual Exam: Patient presents [...] of: Abad Canchola DO documented in this encounterTenet St. LouisNgusveapnf55-63-7558 History of Present illness Narrative* DOMINGUEZ Villagran [...] PLAN ICD-10-CM 1. 17 weeks gestation of ([facility]) Z3A.17 POCT urinalysis dipstick manually resulted Alpha fetoprotein, maternal Alpha fetoprotein, maternal 2. Second trimester ([facility]) Z34.92 POCT urinalysis dipstick manually resulted Alpha fetoprotein, maternal Alpha fetoprotein, maternal 3. Subchorionic hematoma in first trimester, single or unspecified fetus ([facility]) O41.8X10 O46.8X1 4. Screening, , for anatomic survey ([facility]) Z36.89 US OB 14+ weeks anatomy scan [...] behalf of: DOMINGUEZ Villagran documented in this encounterTenet St. LouisSzofueiwse24-89-1707 Note ADDENDUM #1 Current examination demonstrated an [...] Delivery: 08/26/25 Gestational Age as of 03/18/2025: 48b0r47-89-0499 History of Present illness Narrative* Chelsie Arango [...] nursing note reviewed. Exam conducted with a vascular technologist sonographer present. Vitals: Estimated body mass index is 33.25 kg/m as calculated from the following: Height as of 09/24/19: 5' 6 . Weight as of this encounter: 206 lb. BP: 124/76 Patient's last menstrual period was 11/19/2024 (approximate). ASSESSMENT & PLAN ICD-10-CM 1. Second trimester ([facility]) Z34.92 POCT urinalysis dipstick manually resulted 2. 13 weeks gestation of ([facility]) Z3A.13 New OB: Patient presents today for [...] or undercooked meat, and stay away [facility]. Patient has been consulted regarding any [...] of: Abad Canchola DO documented in this encounterTenet St. LouisYathcfhxlk42-75-3053 History of Present illness Narrative* Cris Gross [...] dipstick manually resulted , unspecified gestational age ([facility]) - Type and screen; Future - ABO/Rh; Future - CBC and differential - Hemoglobin A1c - RPR - Rubella antibody, IgG - Hepatitis B surface antigen - Hepatitis C antibody - HIV-1 and HIV-2 antibodies - Rapid drug screen, urine; Future Encounter for supervision of normal first in first trimester [facility] - Rapid drug screen, urine; Future Nurse Note: Pt unsure of doing the [place] billion to one lab. Advised if patient changes mind to make sure both labs and [place] done at the same time. PVU. OB [...] or undercooked meat, and stay away from [facility]. Patient has also been advised to [...] by: Cris Gross MA documented in this encounterTenet St. LouisBbwnzeodvq23-88-8255 History of Present illness Narrative* Say Roy [...] nursing note reviewed. Exam conducted with a vascular technologist sonographer present. Vitals: Estimated body mass index is [...] of: Say Roy NP documented in this encounterTenet St. LouisOhmiyliaoj59-00-1060 History of Present illness Narrative* Misa Knight [...] nursing note reviewed. Exam conducted with a vascular technologist sonographer present. Vitals: Estimated body mass index is [...] of: Abad Canchola DO documented in this encounterPamela Ville [id number] Miscellaneous Notes* Telephone Encounter - Lisa Tijerina - 12/03/2023 8:07 AM EDT ----- Message from YASMINE Singh sent at 03/05/2023 5:31 PM EDT ----- Regarding: wellness exam Due December of - Annel * Telephone Encounter - Lisa Tijerina - 12/03/2023 8:07 AM EDT Patient is switching pcp [facility] Telephone encounter Note* Telephone Encounter - Lisa Tijerina - 12/03/2023 8:07 AM EDT ----- Message from YASMINE Singh sent at 03/05/2023 5:31 PM EDT ----- Regarding: wellness exam Due December of - Annel [facility]04-23-2024 Telephone encounter Note* Telephone Encounter - Lisa Tijerina - 12/03/2023 8:07 AM EDT Patient is switching pcp [facility]12-22-2023 History of Present illness Narrative* TinyYASMINE [...] YASMINE Singh 08/02/23 1251 documented in this encounterOhioHealth Van Wert [facility]11-19-2021 NoteThe [place], [place] NAME: MEREDITH ANTONIO DATE OF : MEDICAL REC#: [id number] DEMONSTRATOR KNITTING: 1406 NIKOL[address] BATISTAADMIGOR DATE: 06/30/2021 09:48:00 [employer] CRAFT CREWMAN DATE: 06/30/2021 20:15 DICTATING PHYSICIAN: ABAD CANCHOLA DICTATION DATE: 06/30/2021 12:00 OPERATIVE NOTE OPERATION DATE: 06/30/2021 PROCEDURE NAME: Diagnostic laparoscopy. PREOPERATIVE DIAGNOSES: 1. Pelvic pain. 2. Menorrhagia. 3. Dysmenorrhea. POSTOPERATIVE DIAGNOSES: 1. Pelvic pain. 2. Menorrhagia. 3. Dysmenorrhea. 4. Endometriosis posterior cul-de-sac. ANESTHESIA: General. SURGEON: Abad Canchola DO RN CHARGE: CECILIO Mendoza URINE OUTPUT: Yellow and clear. [...] Canchola DO on 07/03/2021 09:18 AM [facility] Signed and Approved by: DR ABAD CANCHOLA . 07/03/2021 09:18:00[facility]Evaluation noteNo assessment information availableChildren[facility] Work Phone: Evaluation note* Diagnosis Onset Date Resolution Status Anxiety and depression acute [facility] Work Phone: Evaluation note* Diagnosis Acute non-recurrent maxillary sinusitis- Primary Non-recurrent acute serous otitis media of both ears Elevated blood pressure reading Elevated blood pressure reading without diagnosis of hypertension documented in this encounter [facility]St[facility] SystemEvaluation note* Diagnosis Female infertility Female infertility of unspecified origin PCOS (polycystic ovarian syndrome) Polycystic ovaries Abnormal uterine bleeding (AUB) Endometriosis Endometriosis, site unspecified Insulin resistance Other abnormal glucose documented in this encounter [facility] HealthcareEvaluation note* Diagnosis Amenorrhea Absence of menstruation Missed menses , unspecified gestational age ([facility]) Encounter for supervision of normal first in first trimester ([facility]) documented in this encounter [facility] HealthcareEvaluation note* Diagnosis Nausea and vomiting during - Primary Currently in first trimester with unknown gestational age Constipation, unspecified constipation type documented in this encounter [facility] HealthcareEvaluation note* Diagnosis Second trimester ([facility]) state, incidental 13 weeks gestation of ([facility]) documented in this encounter [facility] HealthcareEvaluation note* Diagnosis 17 weeks gestation of ([facility]) Second trimester ([facility]) state, incidental Subchorionic hematoma in first trimester, single or unspecified fetus ([facility]) Screening, , for anatomic survey ([facility]) Encounter for anatomic survey Exposure to STD Vaginal discharge Leukorrhea, not specified as infective documented in this encounter [facility]* Diagnosis Second trimester ([facility]) state, incidental 21 weeks gestation of ([facility]) Nausea and vomiting during ([facility]) Vaginal discharge during , antepartum ([facility]) documented in this encounter [facility] HealthcareEvaluation note* Diagnosis 24 weeks gestation of ([facility]) Second trimester ([facility]) state, incidental Diabetes mellitus screening Screening for diabetes mellitus documented in this encounter [facility]Evaluation [facility]* Diagnosis size inconsistent with dates ([facility])- Primary 28 weeks gestation of ([facility]) Second trimester ([facility]) state, incidental documented in this encounter [facility]* Diagnosis 28 weeks gestation of ([facility]) Third trimester ([facility]) state, incidental induced hypertension, antepartum ([facility]) Transient hypertension of , antepartum documented in this encounter [facility] HealthcareInstructionsNot on filedocumented in this encounterProMediAultman Orrville Hospital SystemInstructionsNot on filedocumented in this encounterProAvita Health System System Summary Purpose Family History No [...] and content) DATE CREATED AUTHOR 06/13/2022 [facility] DATE CREATED AUTHOR AUTHOR'S ORGANIZ ATION 08/09/2023 [facility] DATE CREATED AUTHOR AUTHOR'S ORGANIZ ATION 03/07/2025 [facility] DATE CREATED AUTHOR AUTHOR'S ORGANIZ ATION 06/24/2025 [facility] EPIC Care Teams (unrecognized sec tion and content) Team MemberRelationshipSpecialtyStart DateEnd Date Annel Teresa, WADER BOOT TOP ASSEMBLER - SHERIFF SERGEANT [address] [place] [address] [facility] - [facility] Practitioner01/10/23 Team Status: Active Member Role Status [...] DateEnd Date Michelle Pabon MD [address] [place] [id number] PCP - Generalmily Medicine03/25/24Team MemberRelationshipSpecialtyStart DateEnd Date Annel Teresa APRN-PRODUCTION RECORDER [address] [place] [address] PCP - GeneralFamily Medicine01/18/20Team MemberRelationshipSpecialtyStart DateEnd Date Michelle Pabon MD [address] [place] [facility] [place] [address] PCP - GeneralFamily Medicine03/25/24Team MemberRelationshipSpecialtyStart DateEnd Date Michelle Pabon MD [address] [facility] [place] [address] PCP - GeneralFamily Medicine03/25/24Team MemberRelationshipSpecialtyStart DateEnd Date Michelle Pabon MD [address] [facility] [place] [address] PCP - GeneralFamily Medicine03/25/24Team MemberRelationshipSpecialtyStart DateEnd Date Michelle Pabon MD [address] [facility] [place] [address] PCP - GeneralFamily Medicine03/25/24Team MemberRelationshipSpecialtyStart DateEnd Date Michelle Pabon MD [address] [facility] [place] [address] PCP - GeneralFamily Medicine03/25/24Team MemberRelationshipSpecialtyStart DateEnd Date Michelle Pabon MD [address] [facility] [place] [address] PCP - GeneralFamily Medicine03/25/24Team MemberRelationshipSpecialtyStart DateEnd Date Michelle Pabon MD [address] [place] [facility] [place] [address] PCP - GeneralFamily Medicine03/25/24Team MemberRelationshipSpecialtyStart DateEnd Date Michelle Pabon MD [address] [facility] [place] [address] PCP - GeneralFamily Medicine03/25/24Team MemberRelationshipSpecialtyStart DateEnd Date Michelle Pabon MD [address] [facility] [place] [address] PCP - GeneralFamily Medicine03/25/24Team MemberRelationshipSpecialtyStart DateEnd Date Annel Teresa APRN - [facility] [address] [place] [address] PCP - GeneralNurse Practitioner01/10/23Team MemberRelationshipSpecialtyStart Date End Date Michelle Pabon MD [address] [facility] [place] [address] PCP - GeneralFamily Medicine03/25/24Team MemberRelationshipSpecialtyStart DateEnd Date Michelle Pabon MD [address] [facility] [place] [facility] [place] [address] PCP - GeneralFamily Medicine03/25/24Team MemberRelationshipSpecialtyStart DateEnd Date Michelle Pabon MD [address] [facility] [place] [facility] [place] [address] PCP - GeneralFamily Medicine03/25/24Team MemberRelationshipSpecialtyStart DateEnd Date Michelle Pabon MD [address] [facility] [place] [facility] [place] [phone] PCP - [facility]03/25/24Team MemberRelationshipSpecialtyStart DateEnd Date Michelle Pabon MD [address] [facility] [place] [address] PCP - [facility]03/25/24Te MemberRelationshipSpecialtyStart DateEnd Date Michelle Pabon MD [address] [facility] [place] [address] PCP - [facility]03/25/24Te MemberRelationshipSpecialtyStart DateEnd Date Michelle Pabon MD [address] [facility] [place] [address] PCP - [facility]03/25/24 Goals (unrecognized section and content) Goals [...] BE BASED ON THE PRIMARY CLINICAL RECORDS. [facility]. provides no warranty or guarantee of the accuracy or completeness of information in this document.
[2025-07-19 16:35] VITALS: BP 133/81; PULSE 82
== END 2025-07-19 17:07 | disposition home or self-care (01) ==
LOC: US 15:54 → FBC 15:57
PROVIDERS: PCP Family Medicine; Visit Provider Nurse Practitioner Family
DX: O16.3 Unspecified maternal hypertension, third trimester (principal)
CPT/HCPCS: 76818

== ENCOUNTER 2025-07-22 15:58 | Outpatient (OUT) | payer OTHER, SELFPAY ==
[2025-07-22 16:02] VITALS: BP 141/86; PULSE 73
--- OUTSIDE RECORDS SUMMARY | 2025-07-22 16:03 | XMS_ITS | CCD ---
Author Organization [facility] Care Team Providers Care Flavorer Name Role Phone JESIKA, DR CALVIN Primary [...] Unavailable JESIKA, DR CALVIN Attending Unavailable Malick DRIVER LICENSE TECHNICIAN - SUPERINTENDENT METER TESTS, Annel Concha Primary Care Provider ANNEL TERESA Referring Unavailable MALICK, ANNEL Concha Primary Care Unavailable Michelle Pabon MD Primary Care Provider [phone] Malick DRIVER LICENSE TECHNICIAN-DEV TECHNICAL MGR, Annel Heath Primary Care Provider Unavailable Primary Care Provider Michelle Hernandez MD Primary Care Provider [phone] Michelle Pabon MD Primary Care Provider [phone] Malick APARICIO - SUPERINTENDENT METER TESTS, Annel Concha Primary Care Provider RAFAEL LARA Referring Unavailable MALICK, ANNEL Kern Primary Care Unavailable Cm LAUGHLIN, Michelle Primary Care Provider [phone] ABAD CANCHOLA Attending Unavailable SAY ROY Attending Unavailable ABAD CANCHOLA Attending Unavailable SHAGUFTA PERKINS Attending Unavailable GREGORIO SHAGUFTA Referring Unavailable ABAD CANCHOLA Attending Unavailable SAY ROY Attending Unavailable GREGORIO, SHAGUFTA Attending Unavailable SAY ROY Referring Unavailable ABAD CANCHOLA Attending Unavailable Medications Current Medications MedicationDrug Class(es)DatesSig (Normalized)Sig (Original)amoxicillin 875 mg / clavulanate 125 mg oral tablet (1 source)Penicillin-class AntibacterialStart: 08-02-2023 End: 73-76-2642jbyf 1 tablet by mouth once in the morningamoxicillin-pot clavulanate (AUGMENTIN) 875-125 mg per tablet Take 1 tablet by mouth in the morningand 1 tablet before bedtime. Do all this for 7 days. 14 tablet 0 08/02/2023 08/09/2023 Activedocusate sodium 100 mg oral capsule (4 sources)Start: 01-13-2025 End: 54-97-5895ruow 1 capsule by mouth in the morningdocusate sodium (Colace) 100 MG capsule Indications: Constipation, unspecified constipation type Take 1 capsule (100 mg) by mouth in the morning and 1 capsule (100 mg) before bedtime. Do all this for10 days. 20 capsule 01/13/2025 01/23/2025 Activeloratadine 10 mg oral tablet (6 sources) End: 56-72-7317wfvt 1 tablet by mouth once dailyloratadine (Claritin) 10 MG tablet Take 10 mg by mouth Daily 01/13/2025 Discontinuedlosartan potassium 25 mg oral tablet (5 sources)Angiotensin 2 Receptor BlockerStart: 02-28-2024 End: 01-03-8673nrdk 25 mg by mouth once dailyLosartan Active 25 MG PO Daily February 28, 2024 12:00ammetFORMIN hydrochloride 500 mg oral tablet (6 sources)BiguanideStart: 12-01-2024 End: 18-98-6334tfkq 1 tablet by mouth at mealtimemetFORMIN (Glucophage) 500 MG tablet Indications: PCOS (polycystic ovarian syndrome) , Insulin resistance Take 1 tablet (500 mg) by mouth in the morning. Take with meals. 30 tablet 11 12/01/2024 01/13/2025 Discontinuedmetoclopramide 10 mg oral tablet (20 sources)Dopamine-2 Receptor AntagonistStart: 04-15-2025 End: 29-14-2364mosyxwohadieie (Reglan) 10 MG tablet Indications: Nausea and vomiting during (HHS-HCC) Take 1 tablet (10 mg) by mouth in the morning and 1 tablet (10 mg) at noon and 1 tablet (10 mg) in theevening. Take before meals. Take 1 tablet by mouth 30 minutes prior to meals 3 times daily as needed for nausea. 90 tablet 1 04/15/2025 ActiveStart: 01-13-2025 End: 51-87-7157blrhlWSBEHUGM 0.0075 mg/mg vaginal gel (3 sources)Nitroimidazole AntimicrobialStart: 05-10-2025 End: 12-66-0612fbmqgKTOCKJGV (Metrogel) 0.75 % vaginal gel Indications: BV (bacterial vaginosis) Insert into the vagina Daily for 5 days 70 g 05/10/2025 05/15/2025 ActiveMultiple Vitamin (multivitamin) tablet (6 sources) End: 10-33-6128qhgm 1 tablet by mouth once dailyMultiple Vitamin (multivitamin) tablet Take 1 tablet by mouth Daily 01/13/2025 Discontinuedtake 1 tablet by mouth once dailyMultiple Vitamin (multivitamin) tablet Take 1 tablet by mouth Daily Jgzbrk76 hr NIFEdipine 30 mg extended release oral tablet (7 sources)Dihydropyridine Calcium Channel BlockerStart: 37-16-0891txye 1 tablet by mouth once daily, then take 1 tablet by mouth every twenty-four hours NIFEdipine CC (Adalat CC) 30 MG 24 hr tablet Take 30 mg by mouth Daily 10/20/2024 Activeondansetron 4 mg disintegrating oral tablet (20 sources)Serotonin-3 Receptor AntagonistStart: 72-84-1693irxg 1 tablet by mouth every eight hours as needed for nauseaondansetron ODT (Zofran-ODT) 4 MG disintegrating tablet Take 4 mg by mouth every 8 (eight) hours ifneeded for nausea 02/22/2025 ActiveStart: 01-11-2025 End: 58-95-1958amca 1 tablet by mouth every six hours for nauseaondansetron ODT (Zofran-ODT) 4 MG disintegrating tablet Indications: Nausea and vomiting during ([facility]) Take 1 tablet (4 mg) by mouth every 6 (six) hours if needed for nausea or vomiting 30 tablet 2 01/11/2025 02/10/2025 Activephentermine hydrochloride 37.5 mg oral tablet (3 sources)Sympathomimetic Amine AnorecticStart: 01-09-2023 End: 49-01-4313lede 33-33.9 tablets by mouth once daily before breakfast phentermine (ADIPEX-P) 37.5 mg tablet Indications: Class 1 obesity due to excess calories without serious comorbidity with body mass index (BMI) of 33.0 to 33.9 in adult Take 1 tablet (37.5 mg total)by mouth every morning before breakfast. 30 tablet 0 03/05/2023 08/02/2023 Discontinued (Therapy completed)predniSONE 20 mg oral tablet (1 source)Start: 08-02-2023 End: 62-52-6235xpzx 1 tablet by mouth at mealtimepredniSONE (DELTASONE) 20 mg tablet Take 1 tablet (20 mg total) by mouth in the morning for 7 days.Take with food. 7 tablet 0 08/02/2023 08/09/2023 ActivePrenatal 27-1 MG tablet (20 sources)take 1 tablet by mouth once dailyPrenatal 27-1 MG tablet Take 1 tablet by mouth Daily ActiveSemaglutide (Weight Loss) (1 source)Start: 68-90-3572Enwncdsvvaf (Weight Loss) (Wegovy) 0.25 mg/0.5 mL pen injector Active 0.25 MG SUBCUT every week February 28, 2024 12:00am administer weeks 1 through 4 of therapy Completed/Discontinued Medications MedicationDrug Class(es)DatesSig (Normalized)Sig (Original)24 hr buPROPion hydrochloride 150 mg extended release oral tablet (10 sources)AminoketoneStart: 03-06-2024 End: 52-78-6569nist 1 tablet by mouth every twenty-four hours in the morning buPROPion XL (Wellbutrin XL) 150 MG 24 hr tablet Take 150 mg by mouth in the morning. 03/06/2024 12/01/2024 DiscontinuedStart: 12-05-2023 End: 13-69-0795mmab 150 mg by mouth once daily in the morningBupropion Hcl Active 150 MG PO Every morning January 07, 2024 12:59pm End: 32-97-7692iyDZFSsgd SR (Wellbutrin SR) 150 MG 12 hr tablet 12/01/2024 DiscontinuedDULoxetine 60 mg delayed release oral capsule (12 sources)Serotonin and Norepinephrine Reuptake InhibitorStart: 12-05-2023 End: 13-47-1197dyeo 1 capsule by mouth once dailyDuloxetine (Cymbalta) 30 mg capsule,delayed release(DR/EC) Discontinued 30 MG PO Daily 14 14 December 05, 2023 12:00am December 18, 2023 1:01pmStart: 01-09-2023 End: 08-67-1788jcod 1 capsule by mouth once dailyDuloxetine (Cymbalta) 60 mg capsule,delayed release(DR/EC) Discontinued 60 MG PO Daily December 05, 2023 12:00am December 05, 2023 4:15pmethinyl estradiol 0.035 mg / norgestimate 0.25 mg oral tablet (8 sources)Progestin, EstrogenStart: 01-16-2024 End: 86-07-1906xtguzrqujduk-ethinyl estradiol (Ortho-Cyclen) 0.25-35 MG-MCG tablet Indications: Encounter for surveillance of contraceptive pills Take 1 tablet by mouth Daily 84 tablet 3 01/16/2024 12/01/2024 DiscontinuedStart: 43-48-6596bjvx 1 tablet by mouth once dailyNorgestimate-Ethinyl Estradiol Active 1 TAB PO Daily December 05, 2023 12:00amStart: 47-23-2366ynsm 1 tablet by mouth once in the morningnorgestimate-ethinyl estradioL (ORTHO-CYCLEN) 0.25-35 mg-mcg per tablet Take 1 tablet by mouth in the morning. 12/18/2022 ActiveStart: 39-75-9164weqb 1 tablet by mouth once in the morningnorgestimate-ethinyl estradioL (ORTHO-CYCLEN) 0.25-35 mg-mcg per tablet Take 1 tablet by mouth in the morning. 0 12/18/2022 Dswklu11 hr loratadine 10 mg / pseudoephedrine sulfate 240 mg extended release oral tablet (5 sources)alpha-Adrenergic AgonistStart: 08-02-2023 End: 86-85-5149bidl 10-240 mg by mouth every twenty-four hours in the morning Loratadine-D 24HR 10-240 MG 24 hr tablet Take 1 tablet by mouth in the morning. 08/02/2023 12/01/2024 DiscontinuedStart: 08-02-2023 End: 65-26-2531gsaa 1 tablet by mouth once in the [...] unspecified; Translations: [Mixed anxiety and depressive disorder]Onset: 339039-26-8918QjezknvBuqkrqdcxpjqk (5 sources)Endometriosis of pelvic peritoneum; Translations: [Endometriosis (clinical)]Onset: 183642-15-2460NkgcxmhJjxeyp infertility (2 sources)Female infertility; Translations: [Female infertility, unspecified] 11-84-5932SxgouwdRkyxurjkqdlo complicating ; childbirth and the puerperium (2 sources)-induced hypertension; Translations: [Gestational [-induced] hypertension withoutsignificant proteinuria, unspecified trimester]15-11-1941TjoaauqlNbhhnweqoqvae and screening for infectious disease (3 sources)Encounter for screening for human papillomavirus (HPV); Translations: [Exposure to sexually transmissible disorder]Onset: 738299-08-9906Euzvfmhp Menstrual disorders (7 sources)Excessive and frequent menstruation with regular cycle; Translations: [Dysmenorrhea, unspecified]Onset: 42-33-6250UjozlbbMjiw disorders (2 sources)Major depression in full remission; Translations: [Major depressive disorder, single episode, in full remission]Onset: hronic Other complications of (4 sources)Vomiting of , unspecified; Translations: [Unspecified vomiting of , unspecified as to episode of care or not applicable] 21-64-8514OvqlgmnkItdam complications of (2 sources) size does not accord with dates; Translations: [Uterine size- date discrepancy, unspecified trimester]22-43-2933DihihmzlPbbzw endocrine disorders (2 sources)Polycystic ovary syndrome; Translations: [Polycystic ovarian syndrome]52-80-5090VhlqrvcPoolz female genital disorders (1 source)Unspecified dyspareunia; Translations: [UNSPECIFIED DYSPAREUNIA]Onset: 04-43-5317AputxsiHedkx female genital disorders (1 source)Abnormal uterine and vaginal bleeding, unspecified; Translations: [ABNORMAL UTERINE VAGINAL BLEED UNS]Onset: 22-15-4946WmgmxcuNgoet female genital disorders (2 sources)Abnormal uterine bleeding; Translations: [Abnormal uterine and vaginal bleeding, unspecified]36-25-4775CjprrlvYfkrt female genital disorders (4 sources)Vaginal discharge; Translations: [Other specified noninflammatory disorders of vagina]23-10-3975TwvtizjjMfmhm gastrointestinal disorders (2 sources)Constipation; Translations: [Constipation, unspecified]01-13-2025 EpisodicOther nutritional; endocrine; and metabolic disorders (1 source)Obesity, unspecified; Translations: [OBESITY UNSPECIFIED]Onset: 28-95-0856CrtyapnLmuyz nutritional; endocrine; and metabolic disorders (2 sources)Insulin resistance; Translations: [Insulin resistance]12-01-2024 ChronicOther and delivery including normal (16 sources); Translations: [Encounter for supervision of normal , unspecified, unspecified trimester]33-76-8341OewqrevyRwuzt screening for suspected conditions (not mental disorders or infectious disease) (8 sources)Encounter for screening for malignant neoplasm of cervix; Translations: [Patient encounter status]Onset: 64-14-1519UapfgrykKodeclilzsylip and other problems of amniotic cavity (2 sources)Subchorionic hematoma; Translations: [Other specified disorders of amniotic fluid and membranes, first trimester, not applicable or unspecified] 27-42-9832OaoprytcHaavvgzq codes; unclassified (2 sources)Gestation period, 13 weeks; Translations: [13 weeks gestation of ]11-15-8603UljluvauZshopmtc codes; unclassified (2 sources)Gestation period, 17 weeks; Translations: [17 weeks gestation of ]55-75-3359LzosbfxxUgpkpday codes; unclassified (2 sources)Gestation period, 21 weeks; Translations: [21 weeks gestation of ]22-26-3757RlrldwlyKbkarnfg codes; unclassified (2 sources)Gestation period, 24 weeks; Translations: [24 weeks gestation of ]64-93-3029JjbyslfpBzetkiql codes; unclassified (4 sources)Gestation period, 28 weeks; Translations: [28 weeks gestation of ]73-16-7073QpwxrweiGbjmlgemsfyo (1 source)CONTACT W/AND (SUSP) EXPOS COVID-19; Translations: [CONTACT W/AND (SUSP) EXPOS COVID-19]Onset: 47-94-7634Mdqzbggyuxps (2 sources)pre employment; Translations: [pre employment]Onset: 03-04-2025 Past or Other Problems Problem ClassificationProblemDateDocumented DateEpisodic/ChronicAbdominal pain (1 source)Pelvic and perineal pain; Translations: [PELVIC AND PERINEAL PAIN] Onset: 44-60-2425SulxppbdEcfr disorders (3 sources)Mood disorders; Translations: [DEPRESSION UNSPECIFIED]Onset: Other circulatory disease (1 source)Elevated blood pressure; Translations: [Elevated blood-pressure reading, without diagnosis of hypertension]07-07-5926LnbabexnJnezx upper respiratory infections (1 source)Acute maxillary sinusitis; Translations: [Acute maxillary sinusitis, unspecified]18-98-5814OtgroqpmSarojq media and related conditions (1 source)Acute non-suppurative otitis media - serous; Translations: [Acute serous otitis media, bilateral]04-91-3489RxxwhmaaIjdkgiimwxns (2 sources)Onset: Results Test NameValueInterpretationReference RangeFacilityUS OB FOLLOW UP TRANSABDOMINAL APPROACHon 49-10-5047SL OB FOLLOW UP TRANSABDOMINAL APPROACH FINDINGS: A [...] Delivery: 08/26/25 Gestational Age as of 06/08/2025: 58r7jSgcjkcyenm macro (dipstick) panel (U)on 67-44-2490Vvuvymppc, UANegativeNegative - 4(70) +++ mg/dLNOMS HealthcareBlood, UANegativeNegative [...] mg/dLNOMS HealthcareNOMS HealthcareUrinalysis macro (dipstick) panel (U)on 99-82-1012Ktjavtxhi, UA NegativeNegative - 4(70) +++ mg/dLNOMS HealthcareBlood, [...] HealthcareNOMS Healthcare Urinalysis macro (dipstick) panel (U)on 40-96-2487Tgsgdzawq, UANegativeNegative - 4(70) +++ mg/dLNOMS HealthcareBlood, UANegativeNegative - 50 Randall/mcLNOMS HealthcareClarity, UAClearNOMS HealthcareColor, UAYellowNOMS HealthcareGlucose, UANegativeNegative - 1999(110) ++++ mg/dLNOMS HealthcareInterpretation and review of laboratory resultsAbnormalNOMS HealthcareKetones, UANegativeNegative - 160(16) ++++ mg/dLNOMS HealthcareLeukocytes, UA3+Negative - 500+++ [facility] HospitalNOPA HealthcareNitrite, UANegativeNegative - PositiveNOMS HealthcarepH, UA8.55 - 9 NOMS HealthcareProtein, UATraceNegative - 1999(20) ++++ mg/dLNOMS HealthcareSpec Grav, UA1.011 - 1.03NOMS HealthcareUrobilinogen, UA2.00.2 - 12 mg/dLNOMS HealthcareNOMS HealthcareIGP,APTIMA HPV,AGE GDLNon 15-76-2794UUD GDLN ACOG TESTINGNote.[facility] HealthcareComment on above:TESTS RESULT FLAG UNITS REF RANGE LAB Clinician Provided Cytology Information Source.............Endoc[employer]ix Other.............. No. of containers..01 ThinPrep Vial Age Madhu CRANE Millie... FLAG LEGEND: L-Low Normal,H-High Normal,LL-Alert Low,HH-Alert High <-Panic Low,>-Panic High,A-Abnormal,AA-Critical Abnormal Performed at: 01 =[facility] [address] [place] [address] Beverly Nguyen MD, IGP, RFX APTIMA HPV ASCUNote.NOMS HealthcareComment on above:TESTS RESULT FLAG UNITS REF RANGE LAB DIAGNOSIS: 02 NEGATIVE FOR INTRAEPITHELIAL LESION OR MALIGNANCY. FUNGAL ORGANISMS MORPHOLOGICALLY CONSISTENT WITH ROSALBA SPECIES ARE PRESENT. Specimen adequacy: 02 Satisfactory for evaluation. Endocervical and/or squamous metaplastic cells (endocervical component) are present. Performed by: 02 Sonia Beckham, Wired Sweatband Cutter ([facility]) . 02 Note: Note 02 [...] High <-Panic Low,>-Panic High,A-Abnormal,AA-Critical Abnormal Performed at: [address] [place] [id number] Beverly Nguyen MD, Performed at: = - [address] [id number] Customs Broker: Beverly Nguyen MD, Phone: [phone] Performed at: [address] [id number] Customs Broker: Beverly Nguyen MD, Phone: [phone] SPATULA-ALONE ENDOCERVIX CLINISYNCNOMS HealthcareAFP, SERUM, OPEN SPINA BIFIDAon 81-64-7335DKY MOM1.10. [facility] HealthcareAFP VALUE34.4 ng/mL.[facility] HealthcareCOMMENT:Comment.[facility] HealthcareComment on above:Giselle Merida, Ph.D., [facility] Director References: Available Upon Request. Multiples Of Median Cutoffs For AFP Elevations Sellers 2.5 Black 2.8 IDD 2.0 Twins 4.5 Abbreviation Definitions IDD - Insulin Dep Diabetes OSBR - Open Spina Bifida Risk For further inquiries contact [facility] at [phone]. This test was developed and its performance characteristics determined by [facility]. It has not been cleared or approved by the Food and Drug Administration. Performed at: - [facility] RTP [address] [facility], [place], [place] [id number] Customs Broker: Nirmal Means [facility], Phone: [phone] GEST. AGE ON COLLECTION DATE17.0. weeksNOPA HealthcareGESTAT. AGE BASED ONLMP. NOMS HealthcareComment on above:Recalculations are not recommended when gestational dating by LMP and ultrasound are within 10 days. INSULIN DEP DIABETESNo.NOM HealthcareINTERPRETATIONComment.[facility] Healthcare Comment on above:Interpretation: [...] older. MATERNAL AGE AT EDD25.9. yrNOPA HealthcareMULTIPLE GESTATIONNo.[facility] OSBR RISK 1 [id number].[facility] HealthcareRACECaucasian.[facility] HospitalRESULTSReport. [facility] HospitalTEST RESULTS:Negative.[facility] IenwwavrhtPEUTTP721. lbsNOMS HealthcarePREGNANCY N N LMP [id number] 0 17 N 1 Y 206 N N N N N White/ CLINISYNCNOMS HealthcareRECURRENT VAGINITIS (HTRX)on 02-43-9778NQJCPIJLZ VAGINAE 0NOMS HealthcareATOPOBIUM VAGINAENot detectedNOMS HealthcareBVAB 2,3 (BACTERIAL VAGINOSIS ASSOCIATED BACTERIA 2, 3); MOBILUNCUS HUF8JDUV HealthcareBVAB 2,3 (BACTERIAL VAGINOSIS ASSOCIATED BACTERIA 2, 3); MOBILUNCUS SPPNot detectedNOMS HealthcareCANDIDA ALBICANS, PARAPSILOSIS, SWCZYQNOVE55.725AbnormalNOMS HealthcareCANDIDA ALBICANS, PARAPSILOSIS, TROPICALISDetectedAbnormalNOMS HealthcareCANDIDA SMUCRSQA1QYOC HealthcareCANDIDA GLABRATANot detectedNOMS HealthcareCANDIDA XFJZEA5LSNU HealthcareCANDIDA KRUSEINot detectedNOMS HealthcareCHLAMYDIA JUEYQRZTCOL8JZOG HealthcareCHLAMYDIA TRACHOMATISNot detected NOMS HealthcareGARDNERELLA QYVRUTZDD30.732AbnormalNOMS HealthcareGARDNERELLA VAGINALISDetectedAbnormalNOMS HealthcareInterpretation and review of laboratory resultsAbnormalNOMS HealthcareMEGASPHAERA (TYPES 1, 2)0[facility] MEGASPHAERA (TYPES 1, 2)Not detectedNOMS HealthcareMYCOPLASMA MVDRFUEVUH5RVYA HealthcareMYCOPLASMA GENITALIUMNot detectedNOMS HealthcareNEISSERIA GONORRHOEAE0 NOMS HealthcareNEISSERIA GONORRHOEAENot detectedNOMS HealthcareTRICHOMONAS KNTBLIUHR4GSNW HealthcareTRICHOMONAS VAGINALISNot detectedNOMS HealthcareNOMS HealthcareUS OB LIMITED 1+ FETUSESon 30-94-7989WJ OB LIMITED 1+ FETUSESFINDINGS: Cephalic presentation. Anterior [...] was 11/19/2024 (approximate).Urinalysis macro (dipstick) panel (U)on 66-15-4403Ibetqsmhl, UANegativeNegative - 4(70) +++ mg/dL NOMS HealthcareBlood, [...] UA1.021 - 1.03NOPA HealthcareUrobilinogen, UA1.00.2 - 12 mg/dLNOSt. Lukes Des Peres HospitalNOPA HealthcareQuantiFERON Tbon 94-83-1307CYR InterNegative NormalNEGSelect Medical Specialty Hospital - CincinnatiComformerly [facility] on above:Result Comment: Quantiferon TB Gold [...] Mycobacterium tuberculosis Infection -- [place], 2010 (http://www.cdc.gov/mmwr/preview/mmwrhtml/pz0524w4.htm), for more information concerning test performance in low-prevalence populations and use in occupational screening.Performed By: #### QFTB #### [facility] [address] [place], [place] [id number] Customs Broker: Hamlet Cai Juan minus NIL9.92 IU/mLNormalSelect Medical Specialty Hospital - CincinnatiComformerly [facility] on above:Performed By: #### QFTB #### [facility] [address] [place], [place] [id number] Customs Broker: Hamlet Caii TB1 minus NIL0.00 IU/mLNormal0.00-0.34 [facility] CincinnatiComformerly [facility] on above:Performed By: #### QFTB #### [facility] [address] [place], [place] [address] Customs Broker: Lance Chester MDQuanti TB2 minus NIL0.00 IU/mLNormal0.00-0.34 [facility] - CincinnatiComment on above:Performed By: #### QFTB #### [facility] [address], [place] [id number] Customs Broker: Lance Chester MDQuantiFERON NIL0.08 IU/mLNormalSelect Medical Specialty Hospital - CincinnatiComment on above:Performed By: #### QFTB #### [facility] [address], [place] [id number] Customs Broker: Lance Chester MDUrinalysis macro (dipstick) panel (U)on 89-82-4896Zaokcdkvy, UANegativeNegative - 4(70) +++ mg/dLNOMS HealthcareBlood, UANegativeNegative [...] - 12 mg/dLNOMS HealthcareNOMS HealthcareUS OB TRANSVAGINALon 33-86-3285[address] [address] Ultrasound Report Signed Patient: MEREDITH TEMPLETON MR#: [id number] : 2000 Acct:[id number] Age/Sex: 24 / F ADM Date: 02/11/25 Loc: US Attending Dr: Abad Canchola D.O. Ordering Physician: Abad Canchola D.O. Date of Service: 02/11/25 Procedure(s): US OB transvaginal Accession Number(s): [id number] cc: Michelle Pabon M.D.; Abad Canchola D.O. [place] [address] Patient Name: MEREDITH TEMPLETON MRN: [id number] date: 2000 Sex: F Assigned Patient Location: US Current Patient Location: US Accession/Order Number: [id number] Exam Date: 02/11/2025 09:39 Report Date: 02/11/2025 [...] Gillette M.D. 02/11/2025 9:43 AM Dictation Location: [place] [address] Electronically authenticated by: [id number] Y Date: 02/11/2025 09:43 Dictated By: Misa Gillette M.D. Signed By: 02/11/2546 DD/ 2 TD/TT: Storeroom Keeper:SHERRIEadiology, Radiologist, - 02/11/[address] [address] Ultrasound Report Signed Patient: MEREDITH TEMPLETON MR#: [id number] : 2000 Acct:[id number] Age/Sex: 24 / F ADM Date: 02/11/25 Loc: US Attending Dr: Abad Canchola D.O. Ordering Physician: Abad Canchola D.O. Date of Service: 02/11/25 Procedure(s): US OB transvaginal Accession Number(s): [id number] cc: Michelle Pabon M.D.; Abad Canchola D.O. The [place] [address] Patient Name: MEREDITH TEMPLETON MRN: [id number] date: 2000 Sex: F Assigned Patient Location: US Current Patient Location: US Accession/Order Number: [id number] Exam Date: 02/11/2025 09:39 Report Date: 02/11/2025 [...] Gillette M.D. 02/11/2025 9:43 AM Dictation Location: [place] [address] Electronically authenticated by: [id number] Y Date: 02/11/2025 09:43 Dictated By: Misa Gillette M.D. Signed By: 02/11/2546 DD/ 2 TD/TT: Storeroom Keeper: [facility] HospitalRadiology Study observation (narrative)[facility] HospitalUS OB TRANSVAGINALOrdered By: Radiologist Radiology on 70-84-6084OLULSt. [facility]'s Hospital Work Phone: HCG ( test) Ql (U)on 87-61-8138Cbplgzroeikmwr and review of laboratory resultsAbnormalNOSt. Lukes Des Peres HospitalPreg Test, UrPositive NegativeNOAurora Health Care Bay Area Medical CenterMLR HEMOGLOBIN A1Con 19-84-4162Quqoytn [Mass/Vol]91 mg/dLSt. Louis Children's HospitalHbA1c (Bld) [Mass fraction]4.8 %4.5 - 6.2 %[facility] HospitalComment on above:ADA RECOMMENDED LIMIT 4.0 - 6.0 ADA THERAPEUTIC TARGET < 7.0 ACTION SUGGESTED > 7.0 CLINISYNCNOPA HealthcareUS OB TRANSVAGINALon 37-73-7675VW OB TRANSVAGINALEXAM: US OB TRANSVAGINAL HISTORY: Dating. [...] MD, PHD at 22-Jan-2025 10:24:02 AM [facility] TeleradiologyNormalNot AvailableComment on above:Order Comment: US OB TRANSVAGINAL Patient's last menstrual period was 11/19/2024 (approximate).Urinalysis macro (dipstick) panel (U)on 62-18-9795Pbbalbonn, UANegativeNegative - 4(70) +++ mg/dL NOM[facility] HealthcareBlood, [...] HealthcareNOMS Healthcare Urinalysis macro (dipstick) panel (U)on 46-62-2353Ulnwhxjhb, UANegativeNegative - 4(70) +++ mg/dLNOMS HealthcareBlood, UANegativeNegative - 50 Randall/mcLNOMS HealthcareClarity, UAClearNOMS HealthcareColor, UAYellowNOMS HealthcareGlucose, UANegativeNegative - 1999(110) ++++ mg/dLCENTR[facility] HealthcareInterpretation and review of laboratory resultsAbnormalNOPA HealthcareKetones, UANegativeNegative - 160(16) ++++ mg/dLCENTRAL VALLEY [facility] HealthcareLeukocytes, UAPositiveNegative - 500+++ Johnson/mcL [facility] HealthcareComment on above:LargeNitrite, UANegativeNegative - PositiveNOPA HealthcarepH, UA75 - 9NOMS HealthcareProtein, UANegativeNegative - 2000(20) ++++ mg/dLCENTRAL VALLEY [facility] HealthcareSpec Grav, UA1.0151 - 1.03NOPA HealthcareUrobilinogen, UA0.2 0.2 - 12 mg/dLSaint [facility] HealthcareALL CBC WITH AUTO DIFFon 12-01-2024 BASOPHILS ABSOLUTE AUTO0.1NOMS HealthcareBasophils/100 WBC (Bld)0.5 %0.2 - 2.0 % [facility] HospitalEosinophils/100 WBC (Bld)2.6 %0.9 - 7.0 %[facility] Erythrocyte distribution width (RBC) [Ratio]12.2 %11.0 - 15.0 %[facility] Hematocrit (Bld) [Volume fraction]42.8 %36.0 - 48.0 %[facility] HospitalHemoglobin (Bld) [Mass/Vol]14.8 g/dL12.0 - 16.0 g/dLSt. Louis Children's HospitalIMMATURE GRANULOCYTES ABS AUTO0.01NOSt. Lukes Des Peres HospitalImmature granulocytes/100 WBC (Bld)0.1 %0.0 - 0.5 % [facility] HospitalLYMPHOCYTES ABSOLUTE AUTO2.8NOSt. Lukes Des Peres HospitalLymphocytes/100 WBC (Bld)29.5 %20.5 - 60.0 %[facility]H (RBC) [Entitic mass]29.6 pg26.7 - 34.0 pgSaint Joseph Hospital WestHC (RBC) [Mass/Vol]34.6 g/dL29.9 - 35.2 g/dLSaint Joseph Hospital WestV (RBC) [Entitic vol]85.6 fL81.0 - 99.0 fLSt. Louis Children's HospitalMONOCYTES ABSOLUTE AUTO0.6NOSt. Lukes Des Peres HospitalMonocytes/100 WBC (Bld)5.8 %1.7 - 12.0 %[facility] HealthcareNEUTROPHILS ABSOLUTE AUTO5.8NOMS HealthcareNeutrophils/100 WBC (Bld) 61.5 %43.0 - 75.0 %[facility] HealthcarePlatelet mean volume (Bld) [Entitic vol]10 fL 9.5 - 13.5 fLNOMS HealthcareTBH EO #0.3NOMS HealthcareTBH [id number] Healthcare TBH [id number] HealthcareTBH WBC9.5NOMS HealthcareCLINISYNCNOMS HealthcareHCG ( test) Ql (U)on 82-84-1444Loptzoxvfkrjjp and review of laboratory resultsNormalSt. Louis Children's HospitalPreg Test, UrNegativeNegativeNOSoutheast [facility] HealthcareUrinalysis macro (dipstick) panel (U)on 24-29-8032Tcbyupfoc, UA NegativeNegative - 4(70) +++ mg/dLNOPA HealthcareBlood, UANegativeNegative - 50 Randall/mcLNOPA HealthcareClarity, UAClearNOPA HealthcareColor, UAYellowNOPA HealthcareGlucose, UANegativeNegative - 2000(110) ++++ mg/dLSt. [facility] Interpretation and review of laboratory resultsAbnormalCENTRAL VALLEY [facility] HealthcareKetones, UANegativeNegative - 160(16) ++++ mg/dLSt. Louis Children's HospitalLeukocytes, UAPositive Negative - 500+++ Johnson/mcLNOPA HealthcareComment on above:smallNitrite, UA NegativeNegative - PositiveNOPA HealthcarepH, UA75 - 9N[facility]S HealthcareProtein, UA NegativeNegative - 2000(20) ++++ mg/dLNOPA HealthcareSpec Grav, UA1.011 - 1.03 [facility] HospitalUrobilinogen, UA0.20.2 - 12 mg/dLNOMS [facility] Mentor HospitalNOPA Healthcare IGP,APTIMA HPV,AGE GDLNon 59-49-8046HAO GDLN ACOG TESTINGNote.[facility] Comment on above:TESTS RESULT FLAG UNITS REF RANGE LAB Clinician Provided Cytology Information Source.............Cervix;Endocervix No. of containers..01 ThinPrep Vial Phan Pinto... FLAG LEGEND: L-Low Normal,H-High Normal,LL-Alert Low,HH-Alert High <-Panic Low,>-Panic High,A-Abnormal,AA-Critical Abnormal Performed at: 01 =G [facility] [address] Beverly Nguyen MD, IGP, RFX APTIMA HPV ASCUNote.[facility] HospitalComment on above:TESTS RESULT FLAG UNITS REF RANGE LAB DIAGNOSIS: 02 NEGATIVE FOR INTRAEPITHELIAL LESION OR MALIGNANCY. Specimen adequacy: 02 Satisfactory for evaluation. No endocervical component is identified. Performed by: Pricila Smith, Disaster Recovery Coordinator ([facility]) . 02 Note: Note 02 [...] <-Panic Low,>-Panic High,A-Abnormal,AA-Critical Abnormal Performed at: [address] [address] Beverly Nguyen MD, Performed at: = - [address] [id number] Customs Broker: Beverly Nguyen MD, Phone: [phone] Performed at: [facility] [id number] Customs Broker: Beverly Nguyen MD, Phone: [phone] [facility] CERVIX ENDOCERVIX CLINISYNCNOMS HealthcareComprehensive Metabolic Panelon 03-14-9310Gamnfak [Mass/Vol]4.2 g/dLNormal3.5-5.0Prom[facility] Defiance Regional HospitalComment on above:Order Comment: Ordered by ANNEL Loving By: #### KEIRA, [id number] #### [place] [address] Ph. [phone] [Catalytic activity/Vol]77 U/HXolwyt55-698BwovvdaGalion HospitalComment on above:Order Comment: Ordered by ANNEL Loving By: #### KEIRA, [id number] #### [address] [address] Ph. [phone] [Catalytic activity/Vol]29 U/LNormal0-35WGalion HospitalComment on above:Order Comment: Ordered by ANNEL KUNSPerformed By: #### CMP, [id number] #### [place] [address] Ph. [phone] [Catalytic activity/Vol]30 U/AFjhzcn22-43BicshldGalion HospitalComment on above:Order Comment: Ordered by ANNEL Loving By: #### CMP, [id number] #### [place] [address] Ph. [phone] [Mass/Vol]0.4 mg/dLNormal0.2-1.3WGalion HospitalComment on above:Order Comment: Ordered by ANNEL Loving By: #### CMP, [id number] #### [place] [address] Ph. [phone] [Mass/Vol]9.2 mg/dLNormal8.4-10.2WGalion HospitalComment on above:Order Comment: Ordered by ANNEL Loving By: #### CMP, [id number] #### [place] [address] Ph. [phone] [Moles/Vol]101 mmol/LMudbmr37-113DnhcgfvGalion HospitalComment on above:Order Comment: Ordered by ANNEL Loving By: #### CMP, [id number] #### [place] [address] Ph. [phone] [Moles/Vol]25 mmol/KIcglsb20-47KqcmyuaGalion Hospital Comment on above:Order Comment: Ordered by ANNEL Loving By: #### CMP, [id number] #### [place] [address] Ph. [phone] [Mass/Vol]0.71 mg/dLNormal0.52-1.04WGalion HospitalComment on above:Order Comment: Ordered by ANNEL Loving By: #### CMP, [id number] #### [address] [address] Ph. [phone]/1.73 sq M.predicted among non-blacks MDRD (S/P/Bld) [Vol rate/Area]122 mL/min/{1.73_m2}Normal>60WGalion HospitalComment on above:Order Comment: Ordered by ANNEL Reynoso Comment: GFR calculated using CKD-EPI (2020) formula.\X0D0A\Stage 1 Kidney damage (e.g., protein in the urine) with normal GFR >=90\X0D0A\Stage 2 Kidney damage with mild decrease in GFR 60-8 9\X0D0A\Stage 3a Moderate decrease in GFR 45-59\X0D0A\Stage 3b Moderate decrease in GFR 30-44\X0D0A\Stage 4 Severe reduction in GFR 15-29\X0D0A\Stage 5 Kidney failure <15Performed By: #### CMP, [id number] #### [address] [address] Ph. [phone] [Mass/Vol]85 mg/mEHdkctw94-578DlpfzudPromedica Defiance Regional Hospital Comment on above:Order Comment: Ordered by ANNEL Loving By: #### CMP, [id number] #### [address] [address] Ph. [phone] [Moles/Vol]4.1 mmol/LNormal3.6-5.0WGalion HospitalComment on above:Order Comment: Ordered by ANNEL Loving By: #### CMP, [id number] #### [address] [address] Ph. [phone] [Mass/Vol]8.0 g/dLNormvt6.3-8.2[facility] Comment on above:Order Comment: Ordered by ANNEL Loving By: #### CMP, [id number] #### [address] [place] [address] Ph. [phone] [Moles/Vol]137 mmol/RYoxcuy080-344IsjhbecGalion HospitalComment on above:Order Comment: Ordered by ANNEL Gonzalezformed By: #### CMP, [id number] #### [address] [place] [address] Ph. [phone] nitrogen [Mass/Vol]10 mg/dLNormal7-17WGalion HospitalComment on above:Order Comment: Ordered by ANNEL Gonzalezformed By: #### CMP, [id number] #### [place] [address] Ph. [phone] [Mass/Vol]4.2 g/dL3.5 - 5.0 g/dLWYANDOTALP (Bld) [Catalytic activity/Vol]77 U/L38 - 126 U/LWYANDOTALT [Catalytic activity/Vol]29 U/L0 - 35 U/LWYANDOTAST [Catalytic activity/Vol]30 U/L14 - 36 U/LWYANDOT Bilirubin [Mass/Vol]0.4 mg/dL0.2 - 1.3 mg/dLWYANDOTCalcium [Mass/Vol]9.2 mg/dL 8.4 - 10.2 mg/dLWYANDOTChloride [Moles/Vol]101 mmol/LWYANDOTCO2 [Moles/Vol]25 mmol/LWYANDOTCreatinine [Mass/Vol]0.71 mg/dL0.52 - 1.04 mg/dLWYANDOTGFR, Ibaqsgjrj038- PINFWYANDOTComment on above: GFR calculated using CKD-EPI [...] mg/dL7 - 17 mg/dLWYANDOTOrdered by ANNEL FINN [facility] POINTEEZRATTSH Reflex FT4on 22-95-7249GSA7.420 mIU/mLNormal0.470-4.680WCleveland Clinic Mentor Hospital on above:Order Comment: Ordered by ANNEL Gonzalezformed By: #### CMP, [id number] #### [place] [address] Ph. [phone] with Reflexon 34-19-4453QYI Qn2.420 m[IU]/LWYANDOTOrdered by [facility] BASILHIGHLANDS BEHAVIORAL HEALTH SYSTEMWYANDOTPAP ACOG PANEL 2: to 03-01-2022.. NormalThe [facility] CenterComment on above:Performed By: #### [id number] #### [facility] [address] [place] [address] Dr. Dallas Kaplan Gdln ACOG Yewjmrn60-96XihjqlZnkMemorial HospitalComformerly [facility] on above:Performed By: #### [id number] #### [facility] [address] [place] [address] Dr. Dallas WolfDIAGNOSIS:CommentAshtabula County Medical Center on above: Result Comment: NEGATIVE FOR INTRAEPITHELIAL LESION OR MALIGNANCY.Performed By: #### [id number] #### [facility] [address] [place] [address] Dr. Dallas WolfMethodology:CommentAshtabula County Medical Center on above: Result Comment: This liquid based ThinPrep(R) pap test was screened with the use of an image guided system.Performed By: #### [id number] #### [facility] [address] [place] [address] Dr. Dallas WolfNote:CommentAshtabula County Medical Center on above:Result Comment: The Pap smear is a screening test designed to aid in the detection of premalignant and malignant conditions of the uterine cervix. It is not a diagnostic procedure and should not be used as the sole means of detecting cervical cancer. Both false-positive and false-negative reports do occur. .Performed By: #### [id number] #### [facility] [address] [place] [address] Dr. Dallas WolfPerformed by:CommentAshtabula County Medical Center on above: Result Comment: Nikolay Smith, Disaster Recovery Coordinator (ASCP)Performed By: #### [id number] #### [place] [address] Dr[address] Dallas WolfReflex Criteria:[facility] on above:Result Comment: The HPV DNA reflex criteria were not met with this specimen result therefore, no HPV testing was performed. .Performed By: #### [id number] #### [place] [address] Dr[address] Dallas WolfSpecimen adequacy:[facility] on above:Result Comment: Satisfactory for evaluation. Endocervical and/or squamous metaplastic cells (endocervical component) are present.Performed By: #### [id number] #### [place] [address] Dr. Dallas Jackson AUTO DIFFon 51-68-9381CFUH #0.1 103/ulNormal0.0-0.1The [facility] Hospitalment on above:Performed By: #### CBC #### [facility] [address] [place] [address] Dr. Dallas WolfBasophils/100 WBC (Bld)0.8 %Normal0.2-2.0[facility] Comment on above:Performed By: #### CBC #### [facility] [address] [place] [address] Dr. Dallas Huggins #0.3 103/ulNormal0.0-0.7The [facility] on above: Performed By: #### CBC #### [facility] [address] [address] [address] Dallas Mosleyosinophils/100 WBC (Bld)4.1 %Normal0.9-7.0The [facility] Comment on above:Performed By: #### CBC #### [facility] [address] [place] [address] Dr. Dallas Mosleyrythrocyte distribution width (RBC) [Ratio]13.0 %Wkscji88.0-15.0 The [facility] CenterComment on above:Performed By: #### CBC #### [facility] [address] [place] [address] Dr. Dallas WolfHematocrit (Bld) [Volume fraction]43.4 %Skcbno35.0-48.0The [facility] Medical CenterComment on above:Performed By: #### CBC #### [facility] [address] [place] [address] Dr. Dallas WolfHemoglobin (Bld) [Mass/Vol]14.5 g/uIMgolqn49.0-16.0The [facility] CenterComment on above:Performed By: #### CBC #### [facility] [address] [place] [address] Dr. Dallas Ortez #0.02 10e3/ulNormal0.00-0.03The [facility] CenterComment on above:Performed By: #### CBC #### [facility] [address] [place] [address] Dr. Dallas WolfIG %0.3 %Normal0.0-0.5The [facility] Hospitalment on above: Performed By: #### CBC #### [facility] [address] [place] [address] Dr. Dallas OsheaMPH #2.2 103/ulNormal1.2-3.8The [facility] CenterComment on above:Performed By: #### CBC #### [facility] [address] [place] [address] Dr. Dallas Osheamphocytes/100 WBC (Bld)28.1 %Hvecla93.5-60.0The [facility] CenterComment on above:Performed By: #### CBC #### [facility] [address] [address] [address] Dallas Cifuentes DIFF REQNONormalThe [facility] CenterComment on above: Performed By: #### CBC #### [facility] [address] [place] [address] Dr. Dallas Hernandez (RBC) [Entitic mass]28.5 yiLyvoqd22.7-34.0The [facility]ccaulley HospitalComment on above:Performed By: #### CBC #### [facility] [address] [place] [address] Dr. Dallas Hernandez (RBC) [Mass/Vol]33.4 g/vANludkz92.9-35.2The [facility] CenterComment on above:Performed By: #### CBC #### [facility] [address] [place] [address] Dr. Dallas Hernandez (RBC) [Entitic vol]85.3 zHTpuaej53.0-99.0The [facility] CenterComment on above:Performed By: #### CBC #### [facility] [address] [place] [address] Dr. Dallas Smith #0.6 103/ulNormal0.3-0.8The [facility] CenterComment on above:Performed By: #### CBC #### [facility] [address] [place] [address] Dr. Dallas Medranoocytes/100 WBC (Bld)7.9 %Normal1.7-12.0The [facility] Comment on above:Performed By: #### CBC #### [facility] [address] [place] [address] Dr. Dallas Garcia #4.6 103/ulNormal1.4-6.5The [facility] CenterComment on above:Performed By: #### CBC #### [facility] [address] [place] [address] Dr. Dallas Novautrophils/100 WBC (Bld)58.8 %Rgudfx69.0-75.0The [facility] Hospitalment on above:Performed By: #### CBC #### [facility] [address] [address] [address] Dallas Loulet mean volume (Bld) [Entitic vol]9.6 fLNormal9.5-13.5The [facility] on above:Performed By: #### CBC #### [facility] [address] [address] [address] Dallas WolfPLT242 103/wlNclbdv472-438Gtx [facility] CenterComment on above: Performed By: #### CBC #### [facility] [address] [place] [address] Dr. Dallas WolfRBC5.09 106/ulNormal4.20-5.40[facility] on above:Performed By: #### CBC #### [facility] [address] [place] [address] Dr. Dallas WolfWBC7.8 103/ulNormal4.0-11.0The [facility] CenterComment on above: Performed By: #### CBC #### [facility] [address] [place] [address] Dr. Dallas WolfPREElise QUANT HCGon 72-69-4343JIC QUANT<1NormalSalem Regional Medical Center Comment on above:Performed By: #### PREGQNT #### [facility] [address] [place] [address] Dr. Dallas WolfHCElise RANGESEE [facility] Hospitale [facility] CenterComment on above: Result Comment: 5-50 0-1 WEEK 40-300 1-2 WEEKS 100-1,000 2-3 WEEKS 500-6,000 3-4 WEEKS 5,000-200,000 1-2 MONTHS 10,000-100,000 2-3 MONTHS 3,000-50,000 2ND TRIMESTER 1,000-50,000 3RD TRIMESTERPerformed By: #### PREGQNT #### [facility] [address] [place] [address] Dr. Dallas WolfCovid-19 PCR (CVDTBH)on 22-47-3660HGQT-CoV-2 (COVID-19) RNA SANJANA+probe Ql (Unsp spec)Not detectedNormalNOT DETECTEDThe [facility] Comment on above:Result Comment: This test is not yet approved or cleared by the [place] FDA. When there are no FDA-approved or cleared tests available, and other criteria are met, FDA can make tests available under an emergency access mechanism called an Emergency Use Authorization (EUA). The EUA for this test is supported by the [place] of Health and Human Service's (HHS's) declaration [...] consistent with SARS-CoV-2.Performed By: #### CVDTB #### [facility] [address] [place] [address] Dr. Dallas Wolf Vital Signs Date TimeVital SignValuePerforming VhpuodtivLhjstpev68-65-1281 15:50-0500Body mass index (BMI) [Ratio]35.19 kg/t2Uutyo Jesika DO Work Phone: [employer] Ilykqtyily98-03-0169 15:50-0500Body wmqooa04.88 kgCorey Jesika DO Work Phone: [phone]. Lukes Des Peres HospitalJdkmajinbk33-18-4590 15:50-0500Diastolic blood gasdwhdc24 mm[Hg]Abad Jesika DO Work Phone: NOMS HealthcareComment on above:130/ 15:50-0500Systolic blood leybcgsc206 mm[Hg]Abad Jesika DO Work Phone: NOMS HealthcareComment on above:130/1545-12-7104 08:41-0400Body mass index (BMI) [Ratio]34.4 kg/m2Amy Gregorio PA Work Phone: [facility] HospitalOcezxcsqsa94-50-6213 08:41-0400Body hshvin79.67 kgShagufta Perkins PA Work Phone: [facility] HospitalExmoqgqrpm23-72-1838 08:41-0400Diastolic blood mm[Hg]Shagufta Perkins PA Work Phone: [facility] HospitalRejqirxcmy85-53-1533 08:41-0400Systolic blood ioyufduv685 mm[Hg]Shagufta Perkins PA Work Phone: [phone]-[facility] HospitalBfgxnfrocx91-55-8710 08:33-0400Body mass index (BMI) [Ratio]33.59 kg/s3Jpxondov Kirill SHOW JUMPING INSTRUCTOR Work Phone: [facility] HospitalEkjiebovgn80-26-6964 08:33-0400Body pbqykd61.4 kg Say Kirill SHOW JUMPING INSTRUCTOR Work Phone: [facility] HospitalJdyozcyiea11-23-9267 08:33-0400Diastolic blood ehdiirvs17 mm[Hg]Say Cosmeerly SHOW JUMPING INSTRUCTOR Work Phone: [phone]-[facility] HospitalTmeogcyukj71-85-7922 08:33-0400Systolic blood urjrgcch359 mm[Hg]Say Cosmeerly SHOW JUMPING INSTRUCTOR Work Phone: [phone]-[facility] HospitalKbecwggvjy93-27-9733 10:35-0400Body mass index (BMI) [Ratio]33.25 kg/x2Xjldg Jesika DO Work Phone: [facility] HospitalNypmjylaln90-80-0114 10:35-0400Body asouhi74.44 kgCorey Jesika DO Work Phone: [phone]-[facility] HospitalZbmiirriip30-04-2702 10:35-0400Diastolic blood ahizmedj43 mm[Hg]Abad Jesika DO Work Phone: [phone]-[facility] HospitalLfrgksydrq61-21-3186 10:35-0400Systolic blood mm[Hg]Abad Jesika DO Work Phone: [phone]-[facility] HospitalKihrhptwov34-66-5265 10:37-0400Body mass index (BMI) [Ratio]33.31 kg/m2Amy Gregorio PA Work Phone: [facility] HospitalAudijufbzj77-78-8370 10:37-0400Body .62 kgShagufta Perkins PA Work Phone: [facility] HospitalUjnoyirabx11-32-7503 10:37-0400Diastolic blood uvrwhjbv21 mm[Hg]Shagufta Perkins PA Work Phone: [facility] HospitalPigmguuauu46-05-5485 10:37-0400Systolic blood towaxdne970 mm[Hg]Shagufta Perkins PA Work Phone: [phone] [place], [place] [address]Culajmihjq03-58-7219 08:55-0400Body mass index (BMI) [Ratio]33.25 kg/k8Xaktf Jesika DO Work Phone: [facility] HospitalPhqkxklzfd01-08-1638 08:55-0400Body hmucpk32.44 kgCorey Jesika DO Work Phone: [facility] HospitalYxfktfsztg43-09-6255 08:55-0400Diastolic blood mm[Hg]Abad Jesika DO Work Phone: [phone] [place], [place] [address]Rgdznbqlgl19-76-0458 08:55-0400Systolic blood rviqxgvg620 mm[Hg]Abad Jesika DO Work Phone: [facility] HospitalWjctmefkvx64-72-3191 09:14-0400Body mass index (BMI) [Ratio]33.89 kg/p4PhfqenciSay Roy SHOW JUMPING INSTRUCTOR Work Phone: [facility] HospitalGxwdaqxoqt50-45-2420 09:14-0400Body nrklam88.25 kgSay Friedmanly SHOW JUMPING INSTRUCTOR Work Phone: [facility] HospitalLaxsjegsvx27-17-3826 09:14-0400Diastolic blood teuvnvup81 mm[Hg]Say Roy SHOW JUMPING INSTRUCTOR Work Phone: [facility] HospitalObbvkpelws84-47-2337 09:14-0400Systolic blood moogqmkp090 mm[Hg]Say Roy SHOW JUMPING INSTRUCTOR Work Phone: [phone]-[facility] HospitalMmihffxigj98-97-8550 11:00-0400Body mass index (BMI) [Ratio]35.32 kg/n2Sedak Jesika DO Work Phone: [facility] HospitalRnwxowcwws31-00-1442 11:00-0400Body hwmguv01.25 kgCorey Jesika DO Work Phone: [facility] HospitalUcvyaggkea78-58-5413 11:00-0400Diastolic blood strpaxvm29 mm[Hg]Abad Jesika DO Work Phone: [facility] HospitalLgvwpwesta65-14-6394 11:00-0400Systolic blood kltywjly854 mm[Hg]Abad Jesika DO Work Phone: [facility] HospitalCekbqjlvwv11-80-3097 14:07-0400Body jikwca381.64 cmOhio[facility]07-19-2024 14:07-0400Body mass index (BMI) [Ratio]35.9 kg/k3FkiciavkqOhiohealth O'Bleness Hospital07-19-2024 14:07-0400Body .15 [facility]07-19-2024 14:07-0400Diastolic blood ifmdmkqf09 mm[Hg][facility]07-19-2024 14:07-0400 Heart lxem160 /[facility]07-19-2024 14:07-0400Systolic blood dhomhrnb042 mm[Hg][facility]04-25-2024 15:18-0400 Body vcunwu714.64 cmOhiohealth O'[facility]leness Hospital04-25-2024 15:18-0400Body mass index (BMI) [Ratio]36.8 kg/c8AlzfnhdjwOhiohealth O'Bleness Hospital04-25-2024 15:18-0400Body ozvlvu655.41 [facility]04-25-2024 15:18-0400Diastolic blood akhsdrki463 mm[Hg][facility] 12-05-2023 15:18-0400Heart rate94 /[facility] 12-05-2023 15:18-0400Systolic blood dgedxffq906 mm[Hg][facility]12-22-2023 11:56-0500Body owjkwh730.7 cmAnnel Teresa APRN-DEV TECHNICAL MGR Work Phone: [facility]12-22-2023 11:56-0500Body mass index (BMI) [Ratio]35.18 kg/m2Annel JACOBDEV TECHNICAL MGR Work Phone: [facility]12-22-2023 11:56-0500Body llvgdshtbla40.2 [degF]Annel JACOBDEV TECHNICAL MGR Work Phone: [facility] HospitalHot [facility]12-22-2023 11:56-0500Body gymyss285.96 kgAnnel Teresa APRNClaribelDEV TECHNICAL MGR Work Phone: [facility]Hot [facility]12-22-2023 11:56-0500Diastolic blood mm[Hg]Annel JACOBDEV TECHNICAL MGR Work Phone: [facility] HospitalHot [facility]12-22-2023 11:56-0500Heart rate 91 /minAnnel Teresa APRNClaribelDEV TECHNICAL MGR Work Phone: [facility] HospitalNatera, Inc.12-22-2023 11:56-1146OtF0% (BldA) [Mass fraction]99 %Annel JACOBDEV TECHNICAL MGR Work Phone: [facility] HospitalHot [facility]12-22-2023 11:56-0500Systolic blood cccjyrwf697 mm[Hg]Annel JACOBDEV TECHNICAL MGR Work Phone: [facility] HospitalLumatix [facility] Encounters Encounter DateEncounter TypeCare ProviderFacilityStart: 06-21-2025 End: 52-96-3045Pbgakdjg flow sheetCorey Jesika DO Work Phone: [facility] Logan OBGYNComment on above:28 weeks gestation of ([facility]); Third trimester ([facility]); induced hypertension, antepartum ([facility])Start: 06-21-2025 End: 12-61-1847bnxefmcdzaIJZSD FAZIONot AvailableStart: 06-08-2025 End: 05-41-8508Rdjpuh flowsheetAmy Gregorio MIX Work Phone: [facility] OBGYNStart: 06-08-2025 End: 20-87-4121Nuujsn flowsheetShagufta MIX Work Phone: [facility] OBGYNStart: 06-08-2025 End: 28-84-7538Pwehep outpatient visit 15 minutesShagufta MIX Work Phone: [facility] Logan OBGYNComment on above: size inconsistent with dates ([facility]) (Primary Dx); 28 weeks gestation of ([facility]); Second trimester ([facility])Start: 06-08-2025 End: 65-98-8234cfpwqewtuzJML RAMEYNot AvailableStart: 05-12-2025 End: 32-19-4840Xzvujk flowsMaria Isabel Roy NP Work Phone: [facility] OBGYNStart: 05-12-2025 End: 70-25-6324Sbujmi flowsMaria Isabel Roy NP Work Phone: [facility] OBGYNStart: 05-12-2025 End: 55-02-1160Jmeowjrb flow sheetSay Roy NP Work Phone: [facility] OBGYNComment on above:24 weeks gestation of ([facility]); Second trimester ([facility]); Diabetes mellitus screeningStart: 05-12-2025 End: 14-54-1203sdlwixfojwCFQPJKAP EBERLYNot AvailableStart: 04-15-2025 End: 37-56-8929Pzrvno flowsheetCorey Jesika DO Work Phone: [facility] OBGYNStart: 04-15-2025 End: 78-76-0697Jovqlx flowsheetCorey Jesika DO Work Phone: [facility] OBGYNStart: 04-15-2025 End: 28-03-6716Ytwgyfllt Result EncounterCorey Jesika DO Work Phone: NOMS External Department UnsolicitedStart: 04-15-2025 End: 11-18-7887Jotqjfdt preventive med est patient 18-39 yrsCorey Jesika DO Work Phone: NOHN Mccaulley OBGYNComment on above:Second trimester ([facility]); 21 weeks gestation of ([facility]); Nausea and vomiting during ([facility]); Vaginal discharge during , antepartum ([facility])Start: 04-15-2025 End: 01-25-9460norpuvdumvZTFPK FAZIONot AvailableStart: 04-08-2025 End: 78-59-9464zmzkijidogGWA RAMEYNot AvailableStart: 03-18-2025 End: 18-01-8575Myhuqrifw Result EncounterShagufta MIX Work Phone: noms External Department UnsolicitedStart: 03-18-2025 End: 55-57-6839Jledgdbh Result EncounterShagufta MIX Work Phone: noms External Department UnsolicitedStart: 03-18-2025 End: 84-31-0167Mwhhjmfn Result EncounterShagufta Gregorio MIX Work Phone: noms External Department UnsolicitedStart: 03-18-2025 End: 34-83-9576Dsuinzuz flow sheetShagufta [place] Work Phone: [facility] Mccaulley OBGYNComment on above:17 weeks gestation of ([facility]); Second trimester ([facility]); Subchorionic hematoma in first trimester, single or unspecified fetus ([facility]); Screening, , for anatomic survey ([facility]); Exposure to STD; Vaginal dischargeStart: 03-18-2025 End: 79-67-9513vdaunsvfqiSRU RAMEYNot AvailableStart: 03-04-2025 End: 33-99-6924dlbjnthmulJKVSZCE Isaac L[facility]ACleveland [facility] HospitalStart: 03-04-2025 End: 48-16-1835Rxjvrktwzr hospital visit by Fide Sanford CNP Work Phone: [facility] LABStart: 02-18-2025 End: 72-72-2253Gzocwv flowsheetCorey Jesika DO Work Phone: [facility] BCP OBStart: 02-18-2025 End: 62-83-3591Mxpuyj flowsheetCorey Jesika DO Work Phone: [facility] BCP OBStart: 02-18-2025 End: 40-41-8581jnjseruopvMKDAG FAZIONot AvailableStart: 02-18-2025 End: 31-60-5808Ogcriaww flow sheetCorey Jesika DO Work Phone: NOMS BCP OBComment on above:Second trimester ([facility]); 13 weeks gestation of ([facility])Start: 02-11-2025 End: 08-72-3316Txgdtdfwk Result EncounterCorey Jesika DO Work Phone: NOMS External Department UnsolicitedStart: 02-11-2025 End: 18-87-6859Jylfxtdug Result EncounterCorey Jesika DO Work Phone: NOMS External Department UnsolicitedStart: 01-21-2025 End: 46-41-7763Kvwgezttq Result EncounterCorey Jesika DO Work Phone: NOMS External Department UnsolicitedStart: 01-21-2025 End: 92-66-9145Sqmadqozv Result EncounterCorey Jesika DO Work Phone: noms External Department UnsolicitedStart: 01-21-2025 End: 40-24-5454Xeqsrz outpatient visit 5 minutesNoms Bcp Ob Jesika NurseNOMS BCP OBComment on above:GA: 1z1uBnxdh: 01-21-2025 End: 70-53-6763okrtmkaoymBHDHZ FAZIONot AvailableStart: 01-13-2025 End: 94-34-1322Kkkigr flowsheetSay Roy SHOW JUMPING INSTRUCTOR Work Phone: [facility] BCP OBStart: 01-13-2025 End: 60-85-1748Qjtcjx flowsheetSay Roy SHOW JUMPING INSTRUCTOR Work Phone: [facility] BCP OBStart: 01-13-2025 End: 50-30-5700rttvdtibmvPTJCWLQC EBERLYNot AvailableStart: 01-13-2025 End: 36-27-1914Nhgkng outpatient visit 15 minutesSay Roy SHOW JUMPING INSTRUCTOR Work Phone: noms [facility] OBComment on above:GA: 0y1pGtovf: 12-01-2024 End: 37-18-7619Mgrytp flowsheetCorey Jesika DO Work Phone: noms BCP OBStart: 12-01-2024 End: 69-72-8944Tbiljgozy Result EncounterCorey Jesika DO Work Phone: noms External Department UnsolicitedStart: 12-01-2024 End: 16-65-9064Ioaadiiee Result EncounterCorey Jesika DO Work Phone: noms External Department UnsolicitedStart: 12-01-2024 End: 02-80-0860Obgavz outpatient visit 15 minutesCorey Jesika DO Work Phone: noms [facility] OBComment on above:Female infertility; PCOS (polycystic ovarian syndrome); Abnormal uterine bleeding (AUB); Endometriosis; Insulin resistanceStart: 12-01-2024 End: 12-87-8266jjkpbhneadMMBAR FAZIONot AvailableStart: 03-25-2024 End: 49-53-2573Octoooyqs Result EncounterCorey Jesika DO Work Phone: noms External Department UnsolicitedStart: 03-25-2024 End: 66-98-9249Gfpztryoe Result EncounterCorey Jesika DO Work Phone: noms External Department UnsolicitedStart: 02-28-2024 End: 90-85-6422wwneitiaopLvzfkmtlcCincinnati [facility]'s [facility] Work Phone: Start: 02-28-2024 End: 20-42-7655Buhtywx encounter procedureDavis [facility] Work Phone: Start: 12-05-2023 End: 08-33-2887tcgzjkoulcRmlvepzoeCincinnati [facility]'s Hospital [facility] Work Phone: Start: 12-05-2023 End: 95-49-4795Lcskkkt encounter procedureDavis [facility] Work Phone: Start: 12-03-2023 End: 26-46-1684Whvjwhohs encounterAnnel Ivana Teresa DRIVER LICENSE TECHNICIAN-DEV TECHNICAL MGR Work Phone: [facility] MedicineStart: 08-02-2023 End: 87-64-4979Jjmdtr outpatient visit 15 minutesAnnel Ivana Teresa DRIVER LICENSE TECHNICIAN-DEV TECHNICAL MGR Work Phone: [facility] - Family MedicineComment on above:Acute non-recurrent maxillary sinusitis (Primary Dx); Non-recurrent acute serous otitis media of both ears; Elevated blood pressure readingStart: 01-10-2023 End: 68-42-4249cxbarwfyokZDNB [facility] Centertart: 01-10-2023 End: 61-18-8912Uuawjxcyvv hospital visit by physicianAnnel Teresa DRIVER LICENSE TECHNICIAN - SUPERINTENDENT METER TESTS Work Phone: [facility] LaboratoryStart: 02-26-2022 End: 43-86-8169xprhcjidmrSJ ABAD FAZIOFacility:T4Denqf: 89-73-8062Qquqcwwmx for preprocedural laboratory examinationDR ABAD [facility]ertart: 06-30-2021 End: 34-73-7602rysxmvmsiaVY ABAD FAZIOFacility:H1Zohlg: 87-55-0335Bwabqwsgx for other preprocedural examinationDR ABAD [facility] HospitalStart: 06-27-2021 End: 27-07-4971pvtrkyjrmpIF ABAD FAZIOFacility:W8Zrsnw: 06-27-2021 End: 78-29-8489Jvngmzcin for preprocedural laboratory examinationDR ABAD JESIKA Facility:G0Jpjbz: 06-21-2021 End: 08-87-1880eeewgktwzyJG ABAD FAZIOFacility:R1Wufca: 06-21-2021 End: 38-12-0773Zejkdxzgu for other preprocedural examinationDR [facility] Facility:H1 Procedures DateProcedureProcedure DetailPerforming ClinicianStart: 22-56-9016Eszrr dip stick/tablet rgnt non-auto w/o micrscpCorey Jesika DO Work Phone: Start: 69-61-1481Cgsal dip stick/tablet rgnt non-auto w/o micrscpAmy Gregorio MIX Work Phone: Start: 58-85-8284Cftaw dip stick/tablet rgnt non-auto w/o micrscpKrkylah Roy NP Work Phone: Start: 86-35-0053RSX,APTIMA HPV,AGE GDLNCorey Jesika DO Work Phone: Start: 37-73-1956OJC, SERUM, OPEN SPINA BIFIDAAmaria alejandra MIX Work Phone: Start: 63-77-7256WFBCDSLXC VAGINITIS (HTRX)Shagufta MIX Work Phone: Start: 99-35-6752Lwmax dip stick/tablet rgnt non-auto w/o micrscpAmy Gregorio MIX Work Phone: Start: 97-81-0612Cnsqf dip stick/tablet rgnt non-auto w/o micrscpCorey Jesika DO Work Phone: Start: 92-07-1374NB OB TRANSVAGINALCorey Jesika DO Work Phone: Start: 14-35-6672SSY HEMOGLOBIN S5CTcbaf Jeskia DO Work Phone: Start: 01-21-2025 End: 39-20-5422Upvng dip stick/tablet rgnt non-auto w/o micrscpCorey Jesika DO Work Phone: Start: 54-97-1601Hdnom dip stick/tablet rgnt non-auto w/o micrscpKrkylah Roy SHOW JUMPING INSTRUCTOR Work Phone: Start: 56-72-1479ZFU CBC WITH AUTO DIFFCorey Jesika DO Work Phone: Start: 12-01-2024 End: 23-69-6508Ofxpo dip stick/tablet rgnt non-auto w/o micrscpCorey Jesika DO Work Phone: Start: 12-30-5782URK,APTIMA HPV,AGE GDLNCorey Jesika DO Work Phone: Start: 45-38-8432Nnajl depression screening assessment Annel Teresa DRIVER LICENSE TECHNICIAN-DEV TECHNICAL MGR Work Phone: Start: 22-25-5465Qdoxivveuiq observation [Identifier] in Cervix by Cyto stainAnnel Teresa DRIVER LICENSE TECHNICIAN-DEV TECHNICAL MGR Work Phone: Start: 53-84-3135Evmzbyujpofcd metabolic panelUnknown Provider Result Plan of Treatment DateCare ActivityDetailAuthorStart: 54-78-3012Lrfakygzw for malignant neoplasm of cervixPap SmearProAdvantage Capital Partnersca [facility] SystemStart: 07-06-2025 End: 19-91-3937Auwwwbo encounter rnrrihcqa55/25/2025 10:40 AM EST Routine [facility] [place] [address] [place] [phone] Abad Canchola DO [address] [place] [address] NOMFatimah [place] OBGYNStart: 06-28-2025 End: 21-87-4638Yqcyhnl encounter wtqlzistr11/17/2025 3:30 PM EST Routine [facility] [address] [place], [id number] Say Roy, SHOW JUMPING INSTRUCTOR [address] [place] [phone] NOMFatimah [place] OBGYNStart: 06-21-2025 End: 05-37-1502Gjubmqq encounter xgnltntqy02/10/2025 3:30 PM EST Routine [facility] [address] [place], [id number] Abad Canchola DO [address] [place] [address] N[facility]S [facility] OBGYNStart: 06-21-2025 End: 95-04-7489Pthojqkwfszp / ancillary services prijccedsh34/10/2025 3:00 PM EST Ancillary Procedure [facility] [address] [phone] [facility] OBGYNStart: 06-21-2025 End: 18-41-5679Otixeml aminotransferase [Enzymatic activity/volume] in Serum or PlasmaALT Lab Routine induced hypertension, antepartum ([facility]) Expected: 06/21/2025 (Approximate), Expires: 06/21/2026[facility] HealthcareComment on above:Expected: 06/21/2025 (Approximate), Expires: 06/21/2026Start: 06-21-2025 End: 60-18-8670Dcuqqhrqa aminotransferase [Enzymatic activity/volume] in Serum or PlasmaAST Lab Routine induced hypertension, antepartum ([facility]) Expected: 06/21/2025 (Approximate), Expires: 06/21/2026[facility] HealthcareComment on above:Expected: 06/21/2025 (Approximate), Expires: 06/21/2026Start: 06-21-2025 End: 95-23-3445WWK W Auto Differential panel - BloodCBC and differential Lab Routine induced hypertension, antepartum ([facility]) Expected: 06/12 (Approximate), Expires: 06/21/2026[facility] HealthcareComment on above: Expected: 06/21/2025 (Approximate), Expires: 06/21/2026Start: 06-21-2025 End: 19-50-9369Srpkveyjwf [Mass/volume] in Serum or PlasmaCreatinine Lab Routine induced hypertension, antepartum ([facility]) Expected: 06/21/2025 (Ap proximate), Expires: 06/21/2026[facility] Healthcare Work Phone: comment on above:Expected: 06/21/2025 (Approximate), Expires: 06/21/2026Start: 06-21-2025 End: 18-83-4889Orrdlsu dehydrogenase [Enzymatic activity/volume] in Serum or Plasma by Lactate to pyruvate reactionLactate dehydrogenase Lab Routine induced hypertension, antepartum ([facility]) Expected: 06/21/2025, Expires: 06/21/2026[facility] HealthcareComment on above:Expected: 06/21/2025, Expires: 06/21/2026Start: 06-21-2025 End: 02-02-1105Swzxfpd, urine, 24 hourProtein, urine, 24 hour Lab Routine induced hypertension, antepartum ([facility]) Expected: 06/21/2025 (Approximate), Expires: 06/21/2026[facility] HealthcareComment on above:Expected: 06/21/2025 (Approximate), Expires: 06/21/2026Start: 06-21-2025 End: 57-54-0087Os and pttPt and ptt Lab Routine induced hypertension, antepartum ([facility]) Expected: 06/21/2025, Expires: 06/21/2026[facility] Healthcare Comment on above:Expected: 06/21/2025, Expires: 06/21/2026Start: 06-21-2025 End: 97-73-5564Lebeq [Mass/volume] in Serum or PlasmaUric acid Lab Routine induced hypertension, antepartum ([facility]) Expected: 06/21/2025 (Hilary roximate), Expires: 06/21/2026[facility] HealthcareComment on above:Expected: 06/21/2025 (Approximate), Expires: 06/21/2026Start: 06-21-2025 End: 90-13-2023Kdtg nitrogen [Mass/volume] in Serum or PlasmaBUN Lab Routine induced hypertension, antepartum ([facility]) Expected: 06/21/2025, Expires:06/21/2026[facility] HealthcareComment on above:Expected: 06/21/2025, Expires: 06/21/2026Start: 06-08-2025 End: 40-17-2172ZW for pregnancyUS OB follow up transabdominal approach Imaging Routine size inconsistent with dates ([facility]) Expected: 06/08/2025, Expires: 10/09/2025[facility] Work Phone: comment on above:Expected: 06/08/2025, Expires: 10/09/2025Start: 06-08-2025 End: 25-62-7319Mwrgpcw encounter vgtqindqn22/28/2025 8:30 AM EDT Routine [facility] [address] [place], [id number] Shagufta Perkins PA [address] [place], [place] [phone] ArrivedNO Logan OBGYNComment on above:ArrivedStart: 05-12-2025 End: 00-70-8975QXX panel - Blood by Automated countCBC Lab Routine Diabetes mellitus screening Expected: 05/12/2025 (Approximate), Expires: 05/12/2026[facility] Work Phone: comment on above:Expected: 05/12/2025 (Approximate), Expires: 05/12/2026Start: 05-12-2025 End: 04-01-6452Ilustqrqkyk of glucose 1 hour after glucose challenge for glucose tolerance testGlucose tolerance, 1 hour Lab Routine Diabetes mellitus screening Expected: 05/12/2025 (Approximate), Expires: 05/12/2026[facility] HealthcareComment on above:Expected: 05/12/2025 (Approximate), Expires: 05/12/2026Start: 05-12-2025 End: 60-81-9008Lenglsh encounter procedureNOMS Ford OBGYNComment on above: ArrivedStart: 04-15-2025 End: 29-23-3909Cuxuchr encounter procedureNOMS Logan OBGYNComment on above: ArrivedStart: 65-01-5807WBFPJ-19 Vaccine ( season)COVID-19 Vaccine ( season)[facility]OM[facility] HealthcareStart: 54-36-8403Nbvgmevai vaccinationNOPA HealthcareStart: 04-08-2025 End: 33-98-1051Wmbeyvwsxiyd / ancillary services nrobmcthvh10/28/2025 8:00 AM EDT Ancillary Procedure [facility] [address] [phone] [facility] OBGYNStart: 04-05-2025 End: 38-14-1436Ghxbdsb encounter wovadthml13/25/2025 10:20 AM EDT Office Visit [facility] [address] [place] [phone] Abad Canchola DO [address] [place] [address] NOMS BCP OBStart: 03-18-2025 End: 64-29-4610Flpjn fetoprotein, maternalAlpha fetoprotein, maternal Lab Routine 17 weeks gestation of ([facility]) Second trimester ([facility]) Expected: 03/18/2025 (Approximate), Expires: 04/18/2025[facility] Comment on above:Expected: 03/18/2025 (Approximate), Expires: 04/18/2025Start: 03-18-2025 End: 62-90-8905NO for pregnancyUS OB 14+ weeks anatomy scan Imaging Routine Screening, , for anatomic survey ([facility]) Expected: 03/18/2025, Expires: [facility]18[facility]2025[facility]Comment on above:Expected: 03/18/2025, Expires: 06/18/2025Start: 03-18-2025 End: 29-78-7989Coqmbbs encounter kxdpaxvxh10/07/2025 10:30 AM EDT Routine [facility] [address] [phone] Shagufta Perkins PA [address] [place], [place] [phone] NOMS BCP OBStart: 03-18-2025 End: 32-11-3441Oxmvytznxymf / ancillary services xhkawxeeac92/07/2025 10:00 AM EDT Ancillary Procedure [facility] [address] [place] [phone] NOMS BCP OBStart: 91-78-9559Tbsrylcrd vaccinationFlu vaccine (#1)Huseyin Ennis [facility]: 02-18-2025 End: 17-95-0163Bzfeikl encounter /10/2025 8:40 AM EDT Routine [facility] [address] [place] [address] Abad Canchola, [address] [place] [address] NOMS BCP OBStart: 01-21-2025 End: 64-33-8069RLL/RhABO/Rh Lab Routine Missed menses , unspecified gestational age ([facility]) Expected: 01/21/2025 (Approximate), Expires: 01/21/2026[facility] HealthcareComment on above:Expected: 01/21/2025 (Approximate), Expires: 01/21/2026Start: 01-21-2025 End: 45-67-3459aoesvmbwhm43/12/2025 2:00 PM EDT Initial NOMS [address] [place] [address] NOMS BCP OBStart: 01-21-2025 End: 66-73-5912Whocy type and Indirect antibody screen panel - BloodType and screen Lab Routine Missed menses , unspecified gestational age ([facility]) Expected: 01/21/2025 (Approximate), Expires: 01/21/2026[facility] Work Phone: comment on above:Expected: 01/21/2025 (Approximate), Expires: 01/21/2026Start: 01-21-2025 End: 24-63-5185Pqphg of abuse panel - Urine by Screen methodRapid drug screen, urine Lab Routine , unspecified gestational age ([facility]) Encounter for supervision of normal first in first trimester ([facility]) Expected: 01/21/2025 (Approximate), Expires: 01/21/2026N[facility] HealthcareComment on above: Expected: 01/21/2025 (Approximate), Expires: 01/21/2026Start: 01-21-2025 End: 61-89-4574Cxptlbfvpsta / ancillary services htbytefhwl35/12/2025 1:30 PM EDT Ancillary Procedure [facility] OB [address] [address] EWJC BCP OBStart: 12-17-2024 End: 56-46-3075Mmkzbjcqfzvr / ancillary services wtminrrjki83/08/2025 8:00 AM EDT Ancillary Procedure [facility] [address] [place] [address] ZXCD BCP OBStart: 12-01-2024 End: 48-13-4747Lcmfjgqgvhezh hormone ([facility])Antimullerian hormone ([facility]) Lab Routine Abnormal uterine bleeding (AUB) Endometriosis Expected: 12/01/2024 (Approximate), Expires: 12/01/2025N[facility] HealthcareComment on above:Expected: 12/01/2024 (Approximate), Expires: 12/01/2025Start: 12-01-2024 End: 86-62-0235CMMEPPHU Lab Routine PCOS (polycystic ovarian syndrome) Expected: 12/01/2024 (Approximate), Expires: 12/01/2025N[facility] HealthcareComment on above: Expected: 12/01/2024 (Approximate), Expires: 12/01/2025Start: 12-01-2024 End: 13-41-5455KV PelvisUS Pelvis w/ TV Imaging Routine PCOS (polycystic ovarian syndrome) Expected: 12/01/2024, Expires: 12/01/2025N[facility] HealthcareComment on above:Expected: 12/01/2024, Expires: 12/01/2025Start: 53-64-3154Udvsp BMI ScreeningAdult BMI ScreeningProAshtabula County Medical Centertart: 62-73-2255Cswdztikxw ScreeningDepression ScreeningCenterville SystemStart: 99-26-8681Bwhbfqa ScreeningTobacco ScreeningCenterville SystemStart: 54-06-3807PXDYV-19 Vaccine ( season)COVID-19 Vaccine ( season)Huseyin Ennis [facility] HealthStart: 60-30-7720Qyghutomh vaccinationNOPA HealthcareStart: 33-61-2507Gejue BMI Follow Up PlanAdult BMI Follow Up PlanCenterville SystemStart: 50-85-6609Yytxe BMI ScreeningAdult BMI ScreeningCenterville SystemStart: 37-97-6035Zyfxhvwhw for Chlamydia trachomatisChlamydia Screening [facility] TownshipComment on above:Postponed from 1999 (Not Indicated)Start: 74-17-1102Nfxawniec vaccinationInfluenza VaccineCenterville SystemStart: 91-82-3937Kdwhjrkov vaccinationFlu vaccine (Season Ended) WYANDOTStart: 57-31-4668YCgX,Tdap and Td Vaccines (7 - Td or Tdap)DTaP,Tdap and Td Vaccines (7 - Td or Tdap)[place] SystemStart: 10-26-7687FMoK/Tdap/Td vaccine (1 - Tdap)DTaP/Tdap/Td vaccine (1 - Tdap)WYANDOTStart: 2018 Hepatitis B Vaccines (1 of 3 - 19+ 3-dose series)Hepatitis B Vaccines (1 of 3 - 19+ 3-dose series)[facility] HealthcareStart: 08-56-5190XKB Vaccines (1 - 3-dose series)HPV Vaccines (1 - 3-dose series)[facility] HealthcareStart: 91-29-8675Hwuwqyn of varicella vaccinationVaricella Vaccines (1 of 2 - 13+ 2-dose series)[facility] HealthcareStart: 80-91-6830HImB/Tdap/Td Vaccines (1 - Tdap)DTaP/Tdap/Td Vaccines (1 - Tdap)[facility] HealthcareStart: 17-81-2719MNS Vaccines (1 of 1 - Standard series)MMR Vaccines (1 of 1 - Standard series)[facility] HealthcareStart: 03-20-2000 COVID-19 Vaccine (#1)COVID-19 Vaccine (#1)WYANDOTBacteria identified in Urine by CultureUrine culture Microbiology Routine Missed menses Ordered: 01/21/2025[facility] HealthcareComment on above:Ordered: 01/21/2025BC W Auto Differential panel - BloodCBC and differential Lab Routine PCOS (polycystic ovarian syndrome) Ordered: 12/01/2024[facility] HealthcareComment on above:Ordered: 12/01/2024BC W Auto Differential panel - BloodCBC and differential Lab Routine Missed menses , unspecified gestational age ([facility]) Ordered: 01/21/2025[facility] HealthcareComment on above:Ordered: 01/21/2025HLAMYDIA TRACHOMATIS (GENITO/STI) CHLAMYDIA TRACHOMATIS (GENITO/STI) Lab Routine Exposure to STD Ordered: 03/18/2025PA HealthcareComment on above:Ordered: 03/18/2025HLAMYDIA TRACHOMATIS (GENITO/STI)CHLAMYDIA TRACHOMATIS (GENITO/STI) Lab Routine Vaginal discharge during , antepartum ([facility]) Ordered: 04/15/2025[facility] HealthcareComment on above:Ordered: 04/15/2025ytology Cervical or vaginal smear or scraping studyPap Smear Pathology and Cytology Routine Second trimester ([facility]) 21 weeks gestation ofpregnancy ([facility]) Ordered: 04/15/2025 [facility] Healthcare Work Phone: comment on above:Ordered: 04/15/2025DHEA-sulfateDHEA- sulfate Lab Routine PCOS (polycystic ovarian syndrome) Ordered: 12/01/2024[facility] HealthcareComment on above:Ordered: 12/01/2024Follicle stimulating hormone Follicle stimulating hormone Lab Routine PCOS (polycystic ovarian syndrome) Ordered: 12/01/2024[facility] HealthcareComment on above:Ordered: 12/01/2024hCG, quantitative, pregnancyhCG, quantitative, Lab Routine PCOS (polycystic ovarian syndrome) Ordered: 12/01/2024[facility] Healthcare Work Phone: comment on above:Ordered: 12/01/2024Hemoglobin A1c/Hemoglobin.total in BloodHemoglobin A1c Lab Routine Abnormal uterine bleeding (AUB) Endometriosis Ordered: 12/01/2024[facility] HealthcareComment on above: Ordered: 12/01/2024Hemoglobin A1c/Hemoglobin.total in BloodHemoglobin A1c Lab Routine Missed menses , unspecified gestational age ([facility]) Ordered: 01/21/2025[facility] HealthcareComment on above:Ordered: 01/21/2025Hepatitis B virus surface Ag [Presence] in Serum or Plasma by ImmunoassayHepatitis B surface antigen Lab Routine Missed menses , unspecified gestational age ([facility]) Ordered: 01/21/2025[facility] HealthcareComment on above:Ordered: 01/21/2025 Hepatitis C virus Ab [Presence] in Serum or Plasma by ImmunoassayHepatitis C antibody Lab Routine Missed menses , unspecified gestational age ([facility]) Ordered: 01/21/2025[facility] HealthcareComment on above:Ordered: 01/21/2025 HIV-1/HIV-2 antigen/antibody combination immunoassayHIV-1 and HIV-2 antibodies Lab Routine Missed menses , unspecified gestational age ([facility]) Ordered: 01/21/2025[facility] HealthcareComment on above:Ordered: 01/21/2025 Luteinizing hormoneLuteinizing hormone Lab Routine PCOS (polycystic ovarian syndrome) Ordered: 12/01/2024[facility] HealthcareComment on above:Ordered: 12/01/2024 Neisseria gonorrhoeae DNA [Presence] in Unspecified specimen by SANJANA with probe detectionNeisseria gonorrhea DNA probe, direct Lab Routine Exposure to STD Ordered: 03/18/2025[facility] HealthcareComment on above:Ordered: 03/18/2025Neisseria gonorrhoeae DNA [Presence] in Unspecified specimen by SANJANA with probe detection Neisseria gonorrhea DNA probe, direct Lab Routine Vaginal discharge during , antepartum ([facility]) Ordered: 04/15/2025[facility] HealthcareComment on above:Ordered: 04/15/2025Protein/Creatinine [Mass Ratio] in Urine Protein:Creatinine Ratio, Urine Lab Routine induced hypertension, antepartum ([facility]) Ordered: 06/21/2025[facility] HealthcareComment on above:Ordered: 06/21/2025 End: [id number] [facility] Phone: Comment on above:Once for 1 Occurrences starting 03/04/2025 until 03/04/2025Reagin Ab [Presence] in Serum by RPRRPR Lab Routine Missed menses , unspecified gestational age ([facility]) Ordered: 01/21/2025[facility] HealthcareComment on above:Ordered: 01/21/2025Rubella antibody, IgGRubella antibody, IgG Lab Routine Missed menses , unspecified gestational age ([facility]) Ordered: 01/21/2025[facility] HealthcareComment on above: Ordered: 01/21/2025SURESWAB(R) ADVANCED VAGINITIS PLUS, TMASURESWAB(R) ADVANCED VAGINITIS PLUS, TMA Pathology and Cytology Routine Vaginal discharge Ordered: 0 03/18/2025[facility] Work Phone: comment on above:Ordered: 03/18/2025SURESWAB(R) ADVANCED VAGINITIS PLUS, TMASURESWAB(R) ADVANCED VAGINITIS PLUS, TMA Pathology and Cytology Routine Vaginal discharge during , antepartum ([facility]) Ordered: 04/15/2025[facility] HealthcareComment on above:Ordered: 04/15/2025 Thyrotropin [Units/volume] in Serum or PlasmaTSH Lab Routine PCOS (polycystic ovarian syndrome) Or[facility]Ordered: 12/01/2024Thyroxine (T4) free [Mass/volume] in Serum or PlasmaT4, free Lab Routine PCOS (polycystic ovarian syndrome) Ordered: 12/01/2024[facility] Comment on above:Ordered: 12/01/2024 Immunizations Immunization DateImmunizationNotesCare WlzydznxNdwyanws21-59-7001kvjipgvdo, injectable, quadrivalent, preservative freeMary Kuns DRIVER LICENSE TECHNICIAN-DEV TECHNICAL MGR Work Phone: [facility] HospitalTunezy [facility] HospitalBochlm84-70-6127jeudlmuoh virus vaccine, unspecified formulationMary Kuns DRIVER LICENSE TECHNICIAN-DEV TECHNICAL MGR Work Phone: [facility] TownshipFwccwc64-73-1798HEJCE-68, mRNA, LNP- S, PF, 100mcg/0.5mL DoseMary Kuns DRIVER LICENSE TECHNICIAN-DEV TECHNICAL MGR Work Phone: [facility] TownshipWnqzib75-11-1004VNDTH-21, mRNA, LNP- S, PF, 100mcg/0.5mL DoseAnnel Teresa DRIVER LICENSE TECHNICIAN-DEV TECHNICAL MGR Work Phone: [facility] TownshipVbpkza27-59-7560oatoyvwst, injectable, quadrivalent, preservative freeAnnel Teresa DRIVER LICENSE TECHNICIAN-DEV TECHNICAL MGR Work Phone: [facility] TownshipKxzovi01-60-0655jpecyeknj A vaccine, pediatric/adolescent dosage, 2 dose scheduleAnnel Teresa DRIVER LICENSE TECHNICIAN-DEV TECHNICAL MGR Work Phone: [facility]07-28-2017Human Papillomavirus 9-valent vaccineAnnel Teresa DRIVER LICENSE TECHNICIAN-DEV TECHNICAL MGR Work Phone: [facility] TownshipHghhvv80-55-1667fbpsdqdyrhmzq oligosaccharide (groups A, C, Y and W-135) diphtheria toxoid conjugate vaccine (MCV4O)Annel Teresa DRIVER LICENSE TECHNICIAN-DEV TECHNICAL MGR Work Phone: [facility]10-30-2012human papilloma virus vaccine, quadrivalentAnnel Teresa DRIVER LICENSE TECHNICIAN-DEV TECHNICAL MGR Work Phone: [facility] 500Shops Qalaao57-28-3734hlzilydbzwnee polysaccharide (groups A, C, Y and W-135) diphtheria toxoid conjugate vaccine (MCV4P)Annel Teresa DRIVER LICENSE TECHNICIAN-DEV TECHNICAL MGR Work Phone: [facility] TownshipWcocvt72-54-3300umqinvofb virus vaccineAnnel Teresa DRIVER LICENSE TECHNICIAN-DEV TECHNICAL MGR Work Phone: [facility] TownshipJipeoc75-11-4886ckppmbzsg A vaccine, pediatric/adolescent dosage, 2 dose scheduleAnnel Teresa DRIVER LICENSE TECHNICIAN-DEV TECHNICAL MGR Work Phone: [facility]09-12-2012human papilloma virus vaccine, quadrivalentAnnel Teresa DRIVER LICENSE TECHNICIAN-DEV TECHNICAL MGR Work Phone: [facility]09-12-2012tetanus toxoid, reduced diphtheria toxoid, and acellular pertussis vaccine, adsorbedAnnel Teresa DRIVER LICENSE TECHNICIAN-DEV TECHNICAL MGR Work Phone: [facility] TownshipFsolbk63-67-0492rzqovhdocf, tetanus toxoids and acellular pertussis vaccine, unspecified 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 Teresa DRIVER LICENSE TECHNICIAN-DEV TECHNICAL MGR Work Phone: [facility]07-07-2005measles, mumps and rubella virus vaccineAnnel Teresa DRIVER LICENSE TECHNICIAN-DEV TECHNICAL MGR Work Phone: [facility] TownshipYlakhg97-45-4941msqfeccooe vaccine, inactivatedAnnel Teresa DRIVER LICENSE TECHNICIAN-DEV TECHNICAL MGR Work Phone: [facility] TownshipDnzlvi39-84-7148jzsbuzbujp, tetanus toxoids and acellular pertussis vaccine, unspecified 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 Teresa DRIVER LICENSE TECHNICIAN-DEV TECHNICAL MGR Work Phone: [facility] TownshipQccqmq77-78-0032uvywpkaavwj influenzae type b conjugate and Hepatitis B vaccineAnnel Teresa DRIVER LICENSE TECHNICIAN-DEV TECHNICAL MGR Work Phone: [facility]04-26-2001measles, mumps and rubella virus vaccineAnnel Teresa DRIVER LICENSE TECHNICIAN-DEV TECHNICAL MGR Work Phone: [facility] TownshipSvupbs81-84-0245djtkqjbdum vaccine, inactivatedAnnel Teresa DRIVER LICENSE TECHNICIAN-DEV TECHNICAL MGR Work Phone: [facility] TownshipWosjzz14-55-8534pgqzjqasy virus vaccineAnnel Teresa DRIVER LICENSE TECHNICIAN-DEV TECHNICAL MGR Work Phone: [facility] TownshipMkkawu39-15-5991wtemwpyyvf, tetanus toxoids and acellular pertussis vaccine, unspecified 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 Teresa DRIVER LICENSE TECHNICIAN-DEV TECHNICAL MGR Work Phone: [facility] TownshipWjepxg31-12-2694uiwbugnphnx influenzae type b vaccine, PRP-OMP conjugateAnnel Teresa DRIVER LICENSE TECHNICIAN-DEV TECHNICAL MGR Work Phone: [facility] TownshipXbwndn53-09-4788hatiokvmik, tetanus toxoids and acellular pertussis vaccine, unspecified 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 Teresa DRIVER LICENSE TECHNICIAN-DEV TECHNICAL MGR Work Phone: [facility] TownshipGizcpc34-26-9893vfzkrbvbuas influenzae type b conjugate and Hepatitis B vaccineAnnel Teresa DRIVER LICENSE TECHNICIAN-DEV TECHNICAL MGR Work Phone: [facility] TownshipAunxje11-74-9457gacmwghmys vaccine, inactivatedAnnel Teresa DRIVER LICENSE TECHNICIAN-DEV TECHNICAL MGR Work Phone: [facility] TownshipLfijxi38-37-0242bkbntycuud, tetanus toxoids and acellular pertussis vaccine, unspecified 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 Teresa DRIVER LICENSE TECHNICIAN-DEV TECHNICAL MGR Work Phone: [facility] TownshipHbsrgg68-55-9400nejdyeqgurr influenzae type b conjugate and Hepatitis B vaccineAnnel Teresa DRIVER LICENSE TECHNICIAN-DEV TECHNICAL MGR Work Phone: [facility] TownshipEgtpnp89-81-2989ixbkgwedph vaccine, inactivatedAnnel Teresa DRIVER LICENSE TECHNICIAN-DEV TECHNICAL MGR Work Phone: [facility] Payers DatePayer CategoryPayerPolicy [id number] [place] Blue Shield [id number] [id number] Health [id number] [id number] 1.2.840.054711.1.13.239.2.7.3.447439. Medicaid1.2.840.307879.1.13.693.2.7.3.913801.28987-68-4638Iqkfhij Health Insurance1.2.840.027628.1.13.693.2.7.9.940006.788580.27873-16-1337Bquprvm 1.2.840.032947.1.13.693.2.7.3.924[id number] 2.16.840.1.206284.3.57[id number] 2.16.840.1.664137.3.57[id number] 2.16.840.1.881183.3.57[id number] 2.16.840.1.157604.3.57[id number] 2.16.840.1.592525.3.57[id number] 2.16.840.1.714050.3.57[id number] 2.16840.1.172666.3.57[id number] 2.16.840.1.211593.3.57[id number] 2.16.840.1.682114.3.57[id number] 2.16.840.1.295293.3.57[id number] 2.16.840.1.160422.3.57[id number] 2.16.840.1.683517.3.57[id number] 2.16.840.1.737414.3.579.[id number] 2.16.840.1.353491.3.57[id number] 2.16.840.1.976043.3.57[id number] 2.16.840.1.224187.3.57[id number] 2.16.840.1.196267.3.57[id number] 2.16.840.1.524597.3.57[id number] 2.16.840.1.328010.3.579.2.922244-26-6555Yfeszcd Health [id number] [id number] [id number] 77u36njf-[id number] Social History DateTypeDetailFacilityTobacco smoking status NHISTobacco smoking consumption unknownWYANDOT Work Phone: start: 32-15-7979Vrt Assigned At BirthNot on file [facility] Work Phone: start: 03-03-2023 End: 36-75-7293Bfkvleu smoking status NHISNever smoked tobacco (finding) [facility]: 38-50-1000Esl Assigned At BirthFemale [facility]: 03-25-2024 End: 61-15-4075Jqgmydytt beverage intakeLifetime non-drinker (finding)[facility] HealthcareStart: 03-25-2024 End: 90-97-8864[place] of Social functionProMediAdena Health System SystemStart: 03-25-2024 End: 83-43-0988Vqyaaye use panelProGreen Cross Hospital SystemStart: 50-43-7189Efjvqmi use and exposureSmokeless tobacco non-userProGreen Cross Hospital SystemStart: 51-53-9094Xvpqivb intakeEx-drinker (finding)[facility] SystemStart: 64-23-9485Jhu hard is it for you to pay for the very basics like food, housing, medical care, and heatingNot hard at [facility] HospitalLumat[facility] SystemStart: 05-04-2022 Gender identityIdentifies as female gender (finding)[facility] Start: 34-26-5893WdjiztgoyYLHRDr. Fred Stone, Sr. HospitalStart: 21-71-3726BamVolmgj (finding)[facility] Clinical Notes 06-30-2021 to 06-21-2025 Note Date & AxetIczyHddnbmkd10-43-2854 History of Present illness Narrative* Cecilia Khan, INDUSTRIAL COMMERCIAL GROUNDSKEEPER - 06/21/2025 3:40 PM EST Reason for [...] nursing note reviewed. Exam conducted with a utility tender carding present. Vitals: Estimated body mass index is 35.19 kg/m as calculated from the following: Height as of 09/24/19: 5' 6 . Weight as of this encounter: 218 lb. BP: Patient's last menstrual period was 11/19/2024 (approximate). Assessment/Plan ICD-10-CM 1. 28 weeks gestation of ([facility]) Z3A.28 POCT urinalysis dipstick manually resulted 2. Third trimester ([facility]) Z34.93 POCT urinalysis dipstick manually resulted 3. induced hypertension, antepartum ([facility]) O13.9 Creatinine Protein, urine, 24 hour Pt [...] Abad Canchola DO documented in this encounterSt. [facility]'s HospitalRgyxjwklnc72-38-4592 History of Present illness Narrative* DOMINGUEZ Villagrna - 06/08/2025 8:30 AM EDT Reason for [...] nursing note reviewed. Exam conducted with a utility tender carding present. Vitals: Estimated body mass index is 34.4 kg/m as calculated from the following: Height as of 09/24/19: 5' 6 . Weight as of this encounter: 213 lb 1.9 oz. BP: 124/82 Patient's last menstrual period was 11/19/2024 (approximate). Assessment/Plan ICD-10-CM 1. 28 weeks gestation of ([facility]) Z3A.28 POCT urinalysis dipstick manually resulted 2. Second trimester ([facility]) Z34.92 POCT urinalysis dipstick manually resulted Return [...] of: DOMINGUEZ Villagran documented in this encounterSt. Louis Children's HospitalIjslotfmth89-56-3826 History of Present illness Narrative* Say Roy [...] nursing note reviewed. Exam conducted with a utility tender carding present. Vitals: Estimated body mass index is 33.25 kg/m as calculated from the following: Height as of 09/24/19: 5' 6 . Weight as of 04/15/25: 206 lb. BP: Patient's last menstrual period was 11/19/2024 (approximate). ASSESSMENT & PLAN ICD-10-CM 1. 24 weeks gestation of ([facility]) Z3A.24 POCT urinalysis dipstick manually resulted 2. Second trimester ([facility]) Z34.92 3. Diabetes mellitus screening Z13.1 CBC [...] Say Roy NP documented in this encounterSt. Louis Children's HospitalWvrslyivut11-52-5153 History of Present illness Narrative* Chelsie Arango [...] nursing note reviewed. Exam conducted with a utility tender carding present. Vitals: Estimated body mass index is 33.25 kg/m as calculated from the following: Height as of 09/24/19: 5' 6 . Weight as of this encounter: 206 lb. BP: 116/72 Patient's last menstrual period was 11/19/2024 (approximate). ASSESSMENT & PLAN ICD-10-CM 1. Second trimester ([facility]) Z34.92 Pap Smear 2. 21 weeks gestation of ([facility]) Z3A.21 Pap Smear 3. Nausea and vomiting during ([facility]) O21.9 metoclopramide (Reglan) 10 MG tablet 4. Vaginal discharge during , antepartum ([facility]) O26.899 N89.8 Return OB/Annual Exam: Patient presents [...] Abad Canchola DO documented in this encounterSt. Louis Children's HospitalMahiwqskes43-36-1668 History of Present illness Narrative* DOMINGUEZ Villagran [...] PLAN ICD-10-CM 1. 17 weeks gestation of ([facility]) Z3A.17 POCT urinalysis dipstick manually resulted Alpha fetoprotein, maternal Alpha fetoprotein, maternal 2. Second trimester ([facility]) Z34.92 POCT urinalysis dipstick manually resulted Alpha fetoprotein, maternal Alpha fetoprotein, maternal 3. Subchorionic hematoma in first trimester, single or unspecified fetus ([facility]) O41.8X10 O46.8X1 4. Screening, , for anatomic survey ([facility]) Z36.89 US OB 14+ weeks anatomy scan [...] of: DOMINGUEZ Villagran documented in this encounterSt. Louis Children's HospitalIssaunasyl96-27-2170 Note ADDENDUM #1 Current examination demonstrated an [...] Delivery: 08/26/25 Gestational Age as of 03/18/2025: 75k1z48-89-8584 History of Present illness Narrative* Chelsie Arango [...] nursing note reviewed. Exam conducted with a utility tender carding present. Vitals: Estimated body mass index is 33.25 kg/m as calculated from the following: Height as of 09/24/19: 5' 6 . Weight as of this encounter: 206 lb. BP: 124/76 Patient's last menstrual period was 11/19/2024 (approximate). ASSESSMENT & PLAN ICD-10-CM 1. Second trimester ([facility]) Z34.92 POCT urinalysis dipstick manually resulted 2. 13 weeks gestation of ([facility]) Z3A.13 New OB: Patient presents today for [...] undercooked meat, and stay away from [facility]. Patient has been consulted regarding any [...] Abad Canchola DO documented in this encounterSt. Louis Children's HospitalVeiosrcknp68-68-7756 History of Present illness Narrative* Cris Gross [...] dipstick manually resulted , unspecified gestational age ([facility]) - Type and screen; Future - ABO/Rh; Future - CBC and differential - Hemoglobin A1c - RPR - Rubella antibody, IgG - Hepatitis B surface antigen - Hepatitis C antibody - HIV-1 and HIV-2 antibodies - Rapid drug screen, urine; Future Encounter for supervision of normal first in [facility] - Rapid drug screen, urine; Future Nurse Note: Pt unsure of doing the [employer] billion to one lab. Advised if patient changes mind to make sure both labs and [employer] done at the same time. PVU. OB [...] undercooked meat, and stay away from [facility]. Patient has also been advised to [...] by: Cris Gross MA documented in this encounterSt. Louis Children's HospitalYpkfehxbmm42-83-8458 History of Present illness Narrative* Say Roy [...] nursing note reviewed. Exam conducted with a utility tender carding present. Vitals: Estimated body mass index is [...] Say Roy NP documented in this encounterSt. Louis Children's HospitalPttnjltceh30-65-8418 History of Present illness Narrative* Misa Knight [...] nursing note reviewed. Exam conducted with a utility tender carding present. Vitals: Estimated body mass index is [...] of: Abad Canchola DO documented in this encounterLindsay Ville [address]Tngboljoak59-86-9848 Miscellaneous Notes* Telephone Encounter - Lisa Tijerina - 12/03/2023 8:07 AM EDT ----- Message from YASMINE Singh sent at 03/05/2023 5:31 PM EDT ----- Regarding: wellness exam Due December of - Annel * Telephone Encounter - Lisa Tijerina - 12/03/2023 8:07 AM EDT Patient is switching pcp [facility] Tele[facility] encounter Note* Telephone Encounter - Lisa Tijerina - 12/03/2023 8:07 AM EDT ----- Message from YASMINE Singh sent at 03/05/2023 5:31 PM EDT ----- Regarding: wellness exam Due December of - Annel [facility]04-23-2024 Telephone encounter Note* Telephone Encounter - Lisa Tijerina - 12/03/2023 8:07 AM EDT Patient is switching pcp [facility]12-22-2023 History of Present illness Narrative* TinyYASMINE Valencia [...] 08/02/23 1251 documented in this encounterK[facility]11-19-2021 NoteThe [place], [place] NAME: MEREDITH ANTOINO DATE OF : MEDICAL REC#: [id number] AGRICULTURE INSPECTOR: [id number] NIKOLAS BATISTAADMIGOR DATE: 06/30/2021 09:48:00 AUTO CRANE DRIVER DATE: 06/30/2021 20:15 DICTATING PHYSICIAN: ABAD CANCHOLA DICTATION DATE: 06/30/2021 12:00 OPERATIVE NOTE OPERATION DATE: 06/30/2021 PROCEDURE NAME: Diagnostic laparoscopy. PREOPERATIVE DIAGNOSES: 1. Pelvic pain. 2. Menorrhagia. 3. Dysmenorrhea. POSTOPERATIVE DIAGNOSES: 1. Pelvic pain. 2. Menorrhagia. 3. Dysmenorrhea. 4. Endometriosis posterior cul-de-sac. ANESTHESIA: General. SURGEON: Abad Canchola DO HEAD BOOKKEEPER: CECILIO Mendoza URINE OUTPUT: Yellow and clear. [...] Abad Canchola DO on 07/03/2021 09:18 AM [facility] Signed and Approved by: DR ABAD CANCHOLA . 07/03/2021 09:18:00[facility]Evaluation noteNo assessment information availableKeenan Private Hospital Work Phone: Evaluation note* Diagnosis Onset Date Resolution Status Anxiety and depression acute [facility] Work Phone: Evaluation note* Diagnosis Acute non-recurrent maxillary sinusitis- Primary Non-recurrent acute serous otitis media of both ears Elevated blood pressure reading Elevated blood pressure reading without diagnosis of hypertension documented in this encounter [facility] SystemEvaluation note* Diagnosis Female infertility Female infertility of unspecified origin PCOS (polycystic ovarian syndrome) Polycystic ovaries Abnormal uterine bleeding (AUB) Endometriosis Endometriosis, site unspecified Insulin resistance Other abnormal glucose documented in this encounter [facility]Evaluation note* Diagnosis Amenorrhea Absence of menstruation Missed menses , unspecified gestational age ([facility]) Encounter for supervision of normal first in first trimester ([facility]) documented in this encounter [facility] HealthcareEvaluation note* Diagnosis Nausea and vomiting during - Primary Currently in first trimester with unknown gestational age Constipation, unspecified constipation type documented in this encounter [facility]Evaluation note* Diagnosis Second trimester ([facility]) state, incidental 13 weeks gestation of ([facility]) documented in this encounter [facility] note* Diagnosis 17 weeks gestation of ([facility]) Second trimester ([facility]) state, incidental Subchorionic hematoma in first trimester, single or unspecified fetus ([facility]) Screening, , for anatomic survey ([facility]) Encounter for anatomic survey Exposure to STD Vaginal discharge Leukorrhea, not specified as infective documented in this encounter [facility]* Diagnosis Second trimester ([facility]) state, incidental 21 weeks gestation of ([facility]) Nausea and vomiting during ([facility]) Vaginal discharge during , antepartum ([facility]) documented in this encounter [facility]* Diagnosis 24 weeks gestation of ([facility]) Second trimester ([facility]) state, incidental Diabetes mellitus screening Screening for diabetes mellitus documented in this encounter [facility]* Diagnosis size inconsistent with dates ([facility])- Primary 28 weeks gestation of ([facility]) Second trimester ([facility]) state, incidental documented in this encounter [facility]* Diagnosis 28 weeks gestation of ([facility]) Third trimester ([facility]) state, incidental induced hypertension, antepartum ([facility]) Transient hypertension of , antepartum documented in this encounter [facility] HealthcareInstructionsNot on filedocumented in this encounterProMediAdena Health System SystemInstructionsNot on filedocumented in this encounterProGreen Cross Hospital System Summary Purpose Family History No [...] and content) DATE CREATED AUTHOR 06/13/2022 [facility] DATE CREATED AUTHOR AUTHOR'S ORGANIZ ATION 08/09/2023 [facility] DATE CREATED AUTHOR AUTHOR'S ORGANIZ ATION 03/07/2025 [facility] DATE CREATED AUTHOR AUTHOR'S ORGANIZ ATION 06/24/2025 [facility] EPIC Care Teams (unrecognized sec tion and content) Team MemberRelationshipSpecialtyStart DateEnd Date Annel Teresa, DRIVER LICENSE TECHNICIAN - SUPERINTENDENT [employer] [address] [place] [address] [facility] - [facility] Practitioner01/10/23 Team Status: Active Member Role Status [...] DateEnd Date Michelle Pabon MD [address] [place] [id number] PCP - Generalmily Medicine03/25/24Team MemberRelationshipSpecialtyStart DateEnd Date Annel Teresa APRN-DEV TECHNICAL MGR [address] [place] [facility] [place] [address] PCP - GeneralFamily Medicine01/18/20Team MemberRelationshipSpecialtyStart DateEnd Date Michelle Pabon MD [address] [facility] [place] [address] PCP - GeneralFamily Medicine03/25/24Team MemberRelationshipSpecialtyStart DateEnd Date Michelle Pabon MD [address] [facility] [place] [address] PCP - GeneralFamily Medicine03/25/24Team MemberRelationshipSpecialtyStart DateEnd Date Michelle Pabon MD [address] [facility] [place] [address] PCP - GeneralFamily Medicine03/25/24Team MemberRelationshipSpecialtyStart DateEnd Date Michelle Pabon MD [address] [facility] [place] [address] PCP - GeneralFamily Medicine03/25/24Team MemberRelationshipSpecialtyStart DateEnd Date Michelle Pabon MD [address] [facility] [place] [address] PCP - GeneralFamily Medicine03/25/24Team MemberRelationshipSpecialtyStart DateEnd Date Michelle Pabon MD [address] [facility] [place] [address] PCP - GeneralFamily Medicine03/25/24Team MemberRelationshipSpecialtyStart DateEnd Date Michelle Pabon MD [address] [facility] [place] [address] PCP - GeneralFamily Medicine03/25/24Team MemberRelationshipSpecialtyStart DateEnd Date Michelle Pabon MD [address] [facility] [place] [address] PCP - GeneralFamily Medicine03/25/24Team MemberRelationshipSpecialtyStart DateEnd Date Michelle Pabon MD [address] [facility] [place] [address] PCP - GeneralFamily Medicine03/25/24Team MemberRelationshipSpecialtyStart DateEnd Date Annel Teresa APRN - [facility] [address] [place] [address] PCP - GeneralNurse Practitioner01/10/23Team MemberRelationshipSpecialtyStart Date End Date Michelle Pabon MD [address] [facility] [place] [address] PCP - GeneralFamily Medicine03/25/24Team MemberRelationshipSpecialtyStart DateEnd Date Michelle Pabon MD [address] [facility] [place] [address] PCP - GeneralFamily Medicine03/25/24Team MemberRelationshipSpecialtyStart DateEnd Date Michelle Pabon MD [address] [facility] [place] [address] PCP - GeneralFamily Medicine03/25/24Team MemberRelationshipSpecialtyStart DateEnd Date Michelle Pabon MD [address] [facility] [place] [id number] PCP - [facility]03/25/24Team MemberRelationshipSpecialtyStart DateEnd Date Michelle Pabon MD [address] [facility] [place] [address] PCP - [facility]03/25/24Te MemberRelationshipSpecialtyStart DateEnd Date Michelle Pabon MD [address] [facility] [place] [address] PCP - [facility]03/25/24Te MemberRelationshipSpecialtyStart DateEnd Date Michelle Pabon MD [address] [facility] [place] [address] PCP - [facility]03/25/24 Goals (unrecognized section and content) Goals [...] BE BASED ON THE PRIMARY CLINICAL RECORDS. [facility]. provides no warranty or guarantee of the accuracy or completeness of information in this document.
== END 2025-07-22 16:33 | disposition home or self-care (01) ==
LOC: FBCO 15:58 → FBC 16:00
PROVIDERS: PCP Family Medicine; Visit Provider Obstetrics & Gynecology
DX: O16.3 Unspecified maternal hypertension, third trimester (principal); Z3A.35 35 weeks gestation of pregnancy
CPT/HCPCS: 59025

== ENCOUNTER 2025-07-26 17:10 | Inpatient (IN) | payer OTHER, SELFPAY ==
[2025-07-26] VITALS (38 sets, daily range): BP systolic 130–157; BP diastolic 69–99; PULSE 73–100; TEMP 36.6–37.5
--- NOTE | 2025-07-26 09:35 | PC.NURSE ---
0900- RN assumes care of pt at this time. Pt finished obtaining urine at this time; urine pale yellow. Pt assessment obtained; pt complaining of HECTOR 4/10 pain, pt states she has had this HECTOR for 2 days and pain medication is not relieving pain. Pt also states she woke up in the middle of night and experienced spots in her vision with accompanied epigastric pain. Pt denies both of these symptoms currently. Pt states she had a urine specimen resulted at her last office visit and there was protein in her urine. Pt states she had BP reads at home of 146/114 and she took her AM dose of Labetalol this morning. DTRs upper/lower +1. Absent clonus. Pt slight swelling her in her lower extremities bilateral. Pt lung clear throughout; pt denies SOB or chest pain. Pt has facial flushing but states that is her normal baseline. Pt temp 99.2 F and reports feeling warm. 0920- 20G IV start in right FA per this RN. Labs obtained with start.
[2025-07-26 09:51] LABS: Hematocrit 39.1 % (36.0-48.0); Hemoglobin 13.8 g/dL (12.0-16.0); Immature Granulocytes Abs Auto 0.04 10^3/uL (0.00-0.03); Immature Granulocytes Pct Auto 0.4 % (0.0-0.5); Lymphocytes Absolute Auto 2.1 10^3/uL (1.2-3.8); Mean Corpuscular HGB Conc 35.3 g/dL (29.9-35.2); Mean Corpuscular Hemoglobin 29.8 pg (26.7-34.0); Mean Corpuscular Volume 84.4 fL (81.0-99.0); Platelet Count 178 10^3/uL (150-450); Red Blood Count 4.63 10^6/uL (4.20-5.40); White Blood Count 10.6 10^3/uL (4.0-11.0)
[2025-07-26 09:52] LABS: Protein Creatinine Ratio Urine 0.15; Total Protein Urine Random 12.3 mg/dL (<=11.9)
[2025-07-26 09:53] LABS: Glucose Urine UA NEGATIVE (NEGATIVE)
[2025-07-26 10:06] LABS: Cast Seen? NONE SEEN #/LPF (NONE SEEN); Crystals Seen? None Seen #/HPF (None Seen); Urine Culture Indicated YES-FRMC
[2025-07-26 10:07] LABS: Alanine Aminotransferase 17 U/L (14-59); Albumin Globulin Ratio 0.7; Albumin Level 2.7 g/dL (3.4-5.0); Alkaline Phosphatase 224 U/L (46-116); Anion Gap 14.7; Aspartate Amino Transferase 14 U/L (15-37); Blood Urea Nitrogen 5.0 mg/dL (7.0-18.0); Calcium 8.8 mg/dL (8.5-10.1); Carbon Dioxide 21.3 mmol/L (21.0-32.0); Chloride 106 mmol/L (98-107); Estimated GFR (African America >60 (>=60 mL/min/1.73m^2); Estimated GFR (Non-African Ame >60 (>=60 mL/min/1.73m^2); Globulin 4.1 g/dL; Glucose 78 mg/dL (74-106); Potassium 4.0 mmol/L (3.5-5.1); Sodium 138 mmol/L (136-145); Total Protein 6.8 g/dL (6.4-8.2); Uric Acid 5.9 mg/dL (2.6-6.0)
--- NOTE | 2025-07-26 10:26 | PC.NURSE ---
1020- Pt updated on plan of care at this time. Pt given menu to order.
[2025-07-26 10:28] LABS: INR 0.93; Partial Thromboplastin Time 25.7 sec (22.3-36.2); Prothrombin Time 9.8 sec (9.0-11.6)
[2025-07-26 10:40] LABS: Fibrinogen 453 mg/dL (200-400)
[2025-07-26] MEDS: ACETAMINOPHEN 500 MG TABLET 1000 MG PO ×2 (11:04→22:18)
[2025-07-26 14:08] LABS: Cannabinoid Screen Urine NEGATIVE (NEGATIVE); Methamphetamines Screen Urine NEGATIVE (NEGATIVE); Tricyclic Antidepressant Urine NEGATIVE (NEGATIVE)
[2025-07-26] MEDS: LABETALOL HCL 100 MG TABLET 200 MG PO (16:45)
[2025-07-26] MEDS: MISOPROSTOL 100 MCG TABLET 25 MCG VAGINAL ×2 (18:20→21:10)
--- NOTE | 2025-07-26 19:00 | PC.NURSE ---
1845- Pt resting peacefully. Pt HECTOR resolved at this time.
--- NOTE | 2025-07-26 19:14 | PC.NURSE ---
Pt complaining worsening HECTOR at this time behind bilateral eyes; pain 5/10. Pt also states she had an episode of vision changes when ambulating to the bathroom.
--- NOTE | 2025-07-26 19:36 | PC.NURSE ---
1904- Report given Kellen MCFADDEN. Care relinquished.
[2025-07-26] MEDS: AMPICILLIN SODIUM 2,000 MG in 0.9 % SODIUM CHLORIDE 100 ML 200 MG IV (21:30)
[2025-07-26] MEDS: 0.9 % SODIUM CHLORIDE 1,000 ML 50 ML IV (21:45)
[2025-07-26] MEDS: MAGNESIUM SULFATE IN WATER 40 GM/1,000 ML IV.SOLN IV (21:45)
[2025-07-27] VITALS (79 sets, daily range): BP systolic 114–156; BP diastolic 59–100; PULSE 73–96; TEMP 36.6–37.1
[2025-07-27] MEDS: LABETALOL HCL 100 MG TABLET 200 MG PO ×3 (00:06→16:50)
[2025-07-27] MEDS: MISOPROSTOL 100 MCG TABLET 25 MCG VAGINAL (00:06)
[2025-07-27] MEDS: AMPICILLIN SODIUM 1,000 MG in 0.9 % SODIUM CHLORIDE 50 ML 100 MG IV ×5 (01:11→16:50)
[2025-07-27] MEDS: 0.9 % SODIUM CHLORIDE 1,000 ML 30 ML IV (03:56)
[2025-07-27] MEDS: OXYTOCIN/0.9 % SODIUM CHLORIDE 10 UNITS/500 ML PLAST..BAG 6 UNIT IV (04:04)
[2025-07-27] MEDS: ACETAMINOPHEN 500 MG TABLET 1000 MG PO ×2 (05:07→16:50)
[2025-07-27] MEDS: ROPIVACAINE HCL/PF 400 MG/200 ML PREMIX 10 MG EPIDURAL (09:50)
[2025-07-27] MEDS: MAGNESIUM SULFATE IN WATER 40 GM/1,000 ML IV.SOLN IV (15:57)
[2025-07-27] MEDS: OXYTOCIN/0.9 % SODIUM CHLORIDE 10 UNITS/500 ML PLAST..BAG 60 UNIT IV (15:59)
[2025-07-27] MEDS: OXYTOCIN/0.9 % SODIUM CHLORIDE 20 UNITS/1,000 ML PLAST..BAG 999 UNIT IV (19:25)
--- NOTE | 2025-07-27 19:34 | PM.OBPRCVD ---
Procedure Intrapartal events: None Induction method: per misoprostol protocol Delivery augmentation: rupture of membranes and pitocin Delivery monitor: external FHT and external uterine Route of delivery: Episiotomy Description: none L&D Laceration Description: perineal - 2nd degree Delivery repair: Vicryl Estimated blood loss (mL): 150 Anesthesia type: None Disposition: floor Infant Delivery date: 07/27/25 Gender: male presentation: vertex Placental delivery description: Spontaneous cord description: 3 Vessels
[2025-07-27] MEDS: BENZOCAINE/MENTHOL 85 GRAM SPRAY BOTTLE 1 APPLIC TOPICAL (20:45)
[2025-07-27] MEDS: IBUPROFEN 600 MG TABLET PO (20:45)
[2025-07-27] MEDS: GLYCERIN/WITCH HAZEL PADS 1 PAD TOPICAL (20:45)
[2025-07-28 00:22] VITALS: BP 125/73; PULSE 75; TEMP 36.8
[2025-07-28] MEDS: LABETALOL HCL 100 MG TABLET 200 MG PO ×3 (00:22→16:26)
[2025-07-28] MEDS: ACETAMINOPHEN 500 MG TABLET 1000 MG PO ×3 (00:23→16:26)
[2025-07-28] MEDS: 0.9 % SODIUM CHLORIDE 1,000 ML 30 ML IV (01:38)
[2025-07-28 04:07] VITALS: BP 123/77; PULSE 79; TEMP 36.5
[2025-07-28] MEDS: IBUPROFEN 600 MG TABLET PO ×3 (05:48→19:56)
[2025-07-28 06:01] LABS: Hematocrit 38.1 % (36.0-48.0); Hemoglobin 13.6 g/dL (12.0-16.0); Immature Granulocytes Abs Auto 0.07 10^3/uL (0.00-0.03); Immature Granulocytes Pct Auto 0.5 % (0.0-0.5); Lymphocytes Absolute Auto 2.0 10^3/uL (1.2-3.8); Mean Corpuscular HGB Conc 35.7 g/dL (29.9-35.2); Mean Corpuscular Hemoglobin 30.4 pg (26.7-34.0); Mean Corpuscular Volume 85.2 fL (81.0-99.0); Platelet Count 191 10^3/uL (150-450); Red Blood Count 4.47 10^6/uL (4.20-5.40); White Blood Count 14.1 10^3/uL (4.0-11.0)
[2025-07-28 07:59] VITALS: BP 143/89; PULSE 86; TEMP 36
--- NOTE | 2025-07-28 08:19 | P.OBPN_ITS ---
OB - PN: Subj Subjective Patient comments: no complaints [place] status: doing well [place] feeding status: exclusively Exam Constitutional Vital Signs, click to edit/add: Last Vital Signs Temp 96.8 F L 07/28/25 07:59 Pulse 86 07/28/25 07:59 Resp 16 07/28/25 08:19 BP 143/89 H 07/28/25 07:59 O2 Del Method Room Air 07/28/25 00:15 Documenting provider has reviewed patient's vital signs: yes Common normals: no apparent distress General appearance: cooperative, comfortable and well kempt Orientation/consciousness: Yes awake, Yes oriented to person, Yes oriented to place and Yes oriented to time HENMT Common normals: normocephalic Head and scalp: normal to inspection Eye Common normals: EOMs intact bilaterally General eye: normal appearance of both eyes Visual acuity: acuity normal Neck & C-Spine Common normals: full ROM and no lymphadenopathy Lymph Lymphatic: no lymphadenopathy noted Chest Common normals: inspection of chest normal Respiratory Common normals: normal respiratory effort Effort & inspection: able to speak in complete sentences Auscultation: clear to auscultation bilaterally Cardio Common normals: regular rate and regular rhythm Rate: regular rate Rhythm: regular rhythm GI Common normals: Normal to inspection, nondistended, normoactive bowel sounds present and soft to palpation Inspection: normal to inspection Auscultation: normoactive bowel sounds Palpation: soft Common normals: no CVA tenderness Back & Pelvis Common normals: no CVA tenderness Extremity Common normals: normal to inspection and full ROM Neuro Common normals: oriented x3 Sensorium/orientation: awake, alert, oriented to person, oriented to place and oriented to time Psych Common normals: mental status grossly normal, thought process normal, cooperative, affect normal, speech normal, activity/motor behavior normal, denies hallucinations, denies homicidal ideation and denies suicidal ideation Appearance: grossly normal Attitude: calm Activity/motor behavior: appropriate eye contact Results Labs Labs: Short CBC 07/28/25 Range/Units 05:42 WBC 14.1 H (4.0-11.0) 10^3/uL Hgb 13.6 (12.0-16.0) g/dL Hct 38.1 (36.0-48.0) % Plt Count 191 (150-450) 10^3/uL Urinary Catheter Management Urinary Catheter Management Urethral: Cath placed during this visit: yes, but has since been removed by the nurse Insertion date: 07/26/25 Insertion time: 23:05 Removal date: 07/27/25 Removal time: 19:06 OB - PN: A/P Plan - Vaginal Delivery day: 1 Plan: routine care Time Spent with Patient Time: Total time spent is greater than 50% in coordination of care (as documented) at patient's floor/unit and/or counseling patient: Total time spent with greater than 50% in coordination of care (as documented) at patient's floor/unit and/or counseling patient: less than 15 minutes
[2025-07-28 16:15] VITALS: TEMP 36.7
[2025-07-28 16:17] VITALS: BP 123/81; PULSE 77
--- NOTE | 2025-07-28 19:48 | PC.NURSE ---
pt voids at this time after ruiz removal; pt denies difficulty voiding at this time.
[2025-07-29 00:40] VITALS: TEMP 36.5
[2025-07-29 00:46] VITALS: BP 137/86; PULSE 99
[2025-07-29] MEDS: LABETALOL HCL 100 MG TABLET 200 MG PO ×2 (00:53→09:09)
[2025-07-29] MEDS: GLYCERIN/WITCH HAZEL PADS 1 PAD TOPICAL (00:54)
[2025-07-29] MEDS: ACETAMINOPHEN 500 MG TABLET 1000 MG PO ×2 (00:54→09:09)
[2025-07-29] MEDS: IBUPROFEN 600 MG TABLET PO ×2 (04:50→12:16)
--- NOTE | 2025-07-29 07:51 | PM.OBPN ---
OB - PN: Subj Subjective Patient comments: no complaints and pain well controlled [place] status: doing well Exam Constitutional Vital Signs, click to edit/add: Last Vital Signs Temp 97.7 F 07/29/25 00:40 Pulse 99 H 07/29/25 00:46 Resp 17 07/29/25 00:40 BP 137/86 07/29/25 00:46 O2 Del Method Room Air 07/29/25 00:40 Documenting provider has reviewed patient's vital signs: yes Common normals: no apparent distress Respiratory Common normals: normal respiratory effort and clear to auscultation bilaterally Cardio Common normals: regular rate and regular rhythm GI Common normals: Normal to inspection, nondistended, normoactive bowel sounds present Extremity Common normals: no clubbing, cyanosis or edema and no calf tenderness Urinary Catheter Management Urinary Catheter Management Urethral: Cath placed during this visit: yes, but has since been removed by the nurse Insertion date: 07/26/25 Insertion time: 23:05 Removal date: 07/27/25 Removal time: 19:06 OB - PN: A/P Plan - Vaginal Delivery day: 2 Plan: routine care, discharge home and follow up 6 weeks Time Spent with Patient Time: Total time spent is greater than 50% in coordination of care (as documented) at patient's floor/unit and/or counseling patient: Total time spent with greater than 50% in coordination of care (as documented) at patient's floor/unit and/or counseling patient: less than 15 minutes
[2025-07-29 08:50] VITALS: TEMP 36.8
[2025-07-29 08:53] VITALS: BP 133/82; PULSE 86
[2025-07-29] MEDS: DOCUSATE SODIUM 100 MG CAPSULE PO (09:09)
[2025-07-29] MEDS: DIPHTH,PERTUSS(ACELL),TET VAC 0.5 ML SYRINGE IM (12:11)
[2025-07-29] MEDS: FLU VACC TS2025-26(6MOS UP)/PF FLULAVAL 45 MCG/0.5 ML SYRINGE IM (12:15)
== END 2025-07-29 15:01 | disposition home or self-care (01) | DRG 807 ==
LOC: US 17:10 → FBC 17:10
PROVIDERS: Admitting Provider Obstetrics & Gynecology; PCP Family Medicine; Visit Provider Obstetrics & Gynecology
DX: O13.4 Gestational [pregnancy-induced] hypertension without significant proteinuria, complicating childbirth (principal); Z37.0 Single live birth; Z3A.35 35 weeks gestation of pregnancy; O70.1 Second degree perineal laceration during delivery
CPT/HCPCS: 36415; 51702; 59025; 59050; 59410; 80053; 80307; 81001; 82565; 82570; 83615; 84156; 84550; 85025; 85384; 85610; 85730; 86850; 86900; 86901; 87086; 90715; J0290; J2300; J2405; J2795; J3475

== ENCOUNTER 2025-08-03 08:22 | Outpatient (OUT) | payer OTHER, SELFPAY ==
--- OUTSIDE RECORDS SUMMARY | 2025-07-20 08:50 | XMS_ITS | Encounter Summary ---
Author Organization [facility] Address [address] [facility] [place] [address] Care Team Providers Care Skip Locator Name Role Phone Michelle Pabon MD Primary Care Provider [phone] Reason for Visit * ReasonCommentsRoutine Visit Encounter Details DateTypeDepartmentCare Team (Latest Contact Info)Ygchrhkswmj13/09/2025 8:50 AM ESTRoutine [facility] [address] [place] [place] [address] Patricia Roy, CLIMATE CHANGE RISK ASSESSOR [address] [place] [address] 34 weeks gestation of ([facility]); Third trimester ([facility]); Hypertension during in third trimester, unspecified hypertension in type ([facility]) Social History Tobacco UseTypesPacks/DayYears UsedDateSmoking Tobacco: NeverAlcohol UseStandard Drinks/WeekCommentsNever0 (1 standard drink = 0.6 oz pure alcohol) Estimated Date of AofxompyZrdptfjrIpe16/15/2026Based on last menstrual period of 11/19/2024 (Approximate)Sex and Gender InformationValueDate RecordedSex Assigned at BirthNot on fileLegal ZtpYlhvwz58/15/2023 10:09 PM EDTGender IdentityNot on fileSexual OrientationNot on filedocumented as of this encounter Last Filed Vital Signs Vital SignReadingTime TakenCommentsBlood Fhhxksyd049/80109/20/2024 8:50 AM EST Pulse--Temperature--Respiratory Rate--Oxygen Saturation--Inhaled Oxygen Concentration--Rjdcyq373 kg (225 lb 12.8 oz)07/20/2025 8:50 AM ESTHeight--Body Mass Index36.45009/24/2019 12:00 PM ESTdocumented in this encounter Progress Notes * Patricia Roy NP - 07/20/2025 8:50 AM EST Reason for Appointment: Patient ID: Yenifer Viveros is a 24 y.o. female who presents for Routine Visit Patient presents today for Return OB appointment. MEDICATIONS Current Outpatient Medications Medication Instructions labetalol (NORMODYNE) 200 mg, Oral, 3 times daily 27-1 MG tablet 1 tablet, [...] nursing note reviewed. Exam conducted with a stencil printer present. Vitals: Estimated body mass index is 36.45 kg/m?? as calculated from the following: Height as of 09/24/19: 5' 6 . Weight as of this encounter: 225 lb 12.8 oz. BP: 120/80 Patient's last menstrual period was 11/19/2024 (approximate). Assessment/Plan ICD-10-CM 1. 34 weeks gestation of ([facility]) Z3A.34 POCT urinalysis dipstick manually resulted 2. Third trimester ([facility]) Z34.93 POCT urinalysis dipstick manually resulted 3. Hypertension during in third trimester, unspecified hypertension in type ([facility]) O16.3 Assessment/Plan Return OB: Patient presents today for a routine obstetrics appointment. Patient is currently 34w5d . Patient states she is doing well [...] Plan of Treatment DateTypeDepartmentCare Team (Latest Contact Info)Nuopzjdlwld60/29/2025 9:20 AM ESTPostpartum Visit NOMFatimah CHINCHILLA [address] [place] [id number] Shagufta Perkins PA [address] [place], [id number] 09/13/2025 10:30 AM ESTPostpartum Visit ENRIQUE CHINCHILLA [address] [place] [phone] Shagufta Perkins PA [address] [place], [place] [id number] documented as of this encounter Procedures Procedure NamePriorityDate/TimeAssociated DiagnosisCommentsPOCT URINALYSIS ZQMOMQPRKuciqyl20/09/2025 8:56 AM EST 34 weeks gestation of ([facility]) Third trimester ([facility]) documented in this encounter Results * (ABNORMAL) POCT urinalysis dipstick manually resulted (07/20/2025 8:56 AM EST) ComponentValueRef RangeTest MethodAnalysis TimePerformed AtPathologist SignatureColor, UAYellowClarity, UAClearGlucose, UANegativeNegative - 2000(110) ++++ mg/dLBilirubin, UANegativeNegative - 4(70) +++ mg/dLKetones, UA NegativeNegative - 160(16) ++++ mg/dLSpec Grav, UA1.0201 - 1.03Blood, UA NegativeNegative - 50 Randall/mcLpH, UA6.05 - 9Protein, UAPositiveNegative - 2000(20) ++++ mg/dLUrobilinogen, UA1.00.2 - 12 mg/dLLeukocytes, UAPositive Negative - 500+++ Johnson/mcLNitrite, UANegativeNegative - PositiveSpecimen (Source)Anatomical Location / LateralityCollection Method / VolumeCollection TimeReceived PvhvDzmub38/09/2025 8:56 AM EST Narrative Authorizing ProviderResult TypeResult StatusPatricia Roy NPPOINT OF CARE TEST ENTER/EDIT ORDERABLESFinal Result documented in this encounter Visit Diagnoses Diagnosis 34 weeks gestation of ([facility]) Third trimester ([facility]) state, incidental Hypertension during in third trimester, unspecified hypertension in type ([facility]) documented in this encounter Care Teams Team MemberRelationshipSpecialtyStart DateEnd Date Michelle Pabon MD [address] [place] [phone] PCP - GeneralFamily Medicine03/25/24documented as of this encounter
--- OUTSIDE RECORDS SUMMARY | 2025-07-26 19:34 | XMS_ITS | Continuity of Care Document ---
Author Organization [facility] Address [address] [place] [address] Phone Care Team Providers Care Clerical Stock Inspector Name Role Phone Michelle Pabon MD Primary Care Provider Patricia Roy APRN Attending Provider Abad Canchola DO Attending Provider Suzi Sutton MD Attending Provider Care Teams Patient Care Team Team Status: Active Member Role/Relationship Status Dates Michelle Pabon MD Primary Care Provider Active Visit Care Team Team Status: Active Member Role/Relationship Status Dates Michelle Pabon MD Primary Care Provider Active Start: May 26, 2025 Patricia Roy APRN DIRECTOR OF AGRICULTURE-CAttending ProviderActiveStart: May 26, 2025 Visit Care Team Team Status: Active Member Role/Relationship Status Dates Michelle Pabon MD Primary Care Provider Active Start: June 23, 2025 Risa Verde ProviderActiveStart: June 23, 2025 Visit Care Team Team Status: Active Member Role/Relationship Status Dates Michelle Pabon MD Primary Care Provider Active Start: July 04, 2025 Iwona Howard ProviderActiveStart: July 04, 2025 Visit Care Team Team Status: Active Member Role/Relationship Status Dates Michelle Pabon MD Primary Care Provider Active Start: July 12, 2025 Risa Verde ProviderActiveStart: July 12, 2025 Patient Care Team Team Status: Active Member Role/Relationship Status Dates Michelle Pabon MD Primary Care Provider Active Start: July 26, 2025 Risa Verde ProviderActiveStart: July 26, 2025 Allergies, Adverse Reactions, Alerts Allergen Type Severity Reaction Last Updated Verified Status No Known Allergies Allergy Unknown October 20, 2024 1:59pmYesActive Social History Smoking Status Status Start Date End Date Date of Observa tion Never smoked tobacco (finding) December 05, 2023 3:30pm Observation Status Observation Response Date of Response Legal Sex Female (finding) Sex Assigned At BirthFemaleFebruary 2000 Family History Relationship Condition Age at Onset Recorded Date/T terra paternal grandfather Malignant neoplasm Unknown paternal grandmotherHeart diseaseUnknownMyocardial infarctionUnknownfather HypertensionUnknownCerebrovascular accident (CVA)Unknown Problems Active Problems Problem Diagnosis/Recorded Date Onset Date Stat Benign essential HTN March 02, 2024 8:40am [...] Hcl 150 mg tablet extended release 24 yaLgnliisrtxid576RWDDEpvbt fdmdbzs154Bvli 2023 10:44am May 01, 2024 9:37amLosartan 25 mg csrsniUtewilsgxfpw84UNXYAlsht960Cyzsya 2023 11:10amNovember 2023 4:33pmSemaglutide (Weight Loss) (Wegovy) 0.25 mg/0.5 mL pen injectorDiscontinued0.25MGSUBCUTevery ahfz90LahzqomoxApril 16, 2024 10:15amOctober 2023 10:12amadminister weeks 1 through 4 of therapy Bupropion Hcl 150 mg tablet extended release 24 orMpaypaxpcjoz353OUAAUccoj sysvdzt469Yuxpjjxmb 2023 9:37amNovember 2023 7:03amSemaglutide (Weight Loss) 0.5 mg/0.5 mL pen injectorDiscontinued0.5MGSUBCUTevery weekMay 26, 2024 10:12amMarch 2024 2:00pmadminister weeks 1 through 4 of therapyLosartan 25 mg tabletDiscontinued0.ROUTE.XBHISWF415Frzgzelo 18th, 2024 4:33pmMarch 2024 2:15pmTAKE 1 TABLET BY MOUTH DAILYBupropion Hcl 150 mg tablet extended release 24 hjHgylhxznxhte708CPULBekzf lhnjyvb292Aejdokjz 2023 7:03amJanuary 2024 12:58pmBupropion Hcl 150 mg tablet extended release 24 xqXehkhy542RCXMXuclo rljjexq278Ftlrqor 2024 12:58pmUnknown Duloxetine (Cymbalta) 60 mg capsule,delayed release(DR/EC)Wirbzndrdkkz47ROQB DailyApril 2023 11:00pmApril 2023 3:15pmNorgestimate-Ethinyl Estradiol 0.18/0.215/0.25 mg-35 mcg (28) tevqkyWqlnvcfyabud2HQZALOyqvaZcvsa 2023 11:00pmMarch 2024 1:59pmDuloxetine (Cymbalta) 30 mg capsule,delayed release(DR/EC)Cbrheijtfuyv75LRAIGtytv65664Bavhi 2023 11:00pmMay 2023 12:01pmBupropion Hcl 150 mg tablet extended release 24 hr Lojylyiygktf687FOFWMnhyf ngfwxzu542Pivtw 2023 11:00pmMay 2023 11:59amNifedipine 30 mg tablet extended rljpqcdJeqxqwdpkhpf58EEIABfgpo426Wblkb 2024 11:00pmApril 2024 8:08amLosartan 25 mg xufhpyVubcnjvgindn80ACTE Cowhd123Iyxf 2023 11:00pmAugust 2023 11:10amSemaglutide (Weight Loss) (Wegovy) 0.25 mg/0.5 mL pen injectorDiscontinued0.25MGSUBCUTevery weekFebruary 27, 2024 11:00pmSeptember 2023 10:15amadminister weeks 1 through 4 of therapy Relevant Diagnostic Tests and/or Laboratory Data Laboratory Results Test Collection Date/Time Result Date/Time Result Interpretation Reference Range Result Comment Performing Site Glucose 1 Hour May 26, 2025 6:54am May 26 6:54am 104 mg/dL <130Basophils # (Auto)May 26, 2025 6:54amOctober 2024 6:54am0.0 10 3/uL0.0-0.1Urine Random CreatinineJune 23, 2025 4:10pmNov2024 4:60jy698.53 mg/dL20.00-300.00Lactate DehydrogenaseJune 23, 2025 4:19pm June 23, 2025 4:82vc323 U/O41-242Wqvlvegkz Amino Transf (AST/SGOT)June 23, 2025 4:19pmJune 23, 2025 4:19pm9 U/LBelow low eosmfn27-22Bnbe Acid June 23, 2025 4:2024 4:19pm4.3 mg/dL2.6-6.0Creatinine June 23, 2025 4:19pmJune 23, 2025 4:19pm0.52 mg/dLBelow low normal 0.55-1.02Blood Urea NitrogenJune 23, 2025 4:19pmJune 23, 2025 4:19pm 6.0 mg/dLBelow low normal7.0-18.0Basophils # (Auto)June 23, 2025 4:19pm June 23, 2025 4:19pm0.1 10 3/uL0.0-0.1Activated Partial Thromboplast Time June 23, 2025 4:19pmJune 23, 2025 4:19pm26.1 sec22.3-36.2Prothromb Time International RatioN2024 4:19pmJune 23, 2025 4:19pm <0.93DESIRED INR:2.0-3.0 CONDITIONS NOT LISTED BELOW2.5-3.5 FOR PROSTHETIC HEART VALVE REPLACEMENT2.5-3.5 RECURRENT THROMBOSISUrine Microscopic ReviewJuly 04, 2025 10:35amNovember 2024 10:35amYESUrine Random CreatinineDe2024 4:25pmDece2024 4:14vr406.47 mg/dL20.00-300.00Fibrinogen July 12, 2025 4:29pmDece2024 4:32yw136 mg/dLAbove high normal 200-400Activated Partial Thromboplast TimeD2024 4:29pm26.6 sec 22.3-36.2Prothromb Time International RatioJuly 12, 2025 4:29pm0.94DESIRED INR:2.0-3.0 CONDITIONS NOT LISTED BELOW2.5-3.5 FOR PROSTHETIC HEART VALVE REPLACEMENT2.5-3.5 RECURRENT THROMBOSISAlanine Aminotransferase (ALT/SGPT) July 12, 2025 4:29pmDe2024 4:29pm18 U/V87-74Begbvdxdx Amino Transf (AST/SGOT)July 12, 2025 4:pmJuly 12, 2025 4:29pm12 U/LBelow low csusip00-25Ashr AcidJuly 12, 2025 4:29pmDece2024 4:29pm4.4 mg/dL2.6-6.0CreatinineDece2024 4:29pmDece2024 4:29pm0.56 mg/dL0.55-1.02Blood Urea NitrogenDe2024 4:29pmDece2024 4:29pm6.0 mg/dLBelow low normal7.0-18.0Basophils # (Auto)July 12, 2025 4:29pmDece2024 4:29pm0.0 10 3/uL0.0-0.1Urine Amphetamines Screen July 26, 2025 9:00amce2024 9:00amNEGATIVENEGATIVEUrine Microscopic ReviewJuly 26, 2025 9:00amDecember 2024 9:00amYESUrine Random CreatinineJuly 26, 2025 9:00amce2024 9:00am81.62 mg/dL 20.00-300.00FibrinogenDece2024 9:20amDece2024 9:90lm564 mg/dLAbove high mlkryb663-118Cgddeyhet Partial Thromboplast TimeDece2024 9:20am25.7 sec22.3-36.2Prothromb Time International RatioDe2024 9:20am0.93DESIRED INR:2.0-3.0 CONDITIONS NOT LISTED BELOW2.5-3.5 FOR PROSTHETIC HEART VALVE REPLACEMENT2.5-3.5 RECURRENT THROMBOSISLactate DehydrogenaseDe2024 9:20amDece2024 9:33nx138 U/L81-234 Uric AcidJuly 26, 2025 9:20amDece2024 9:20am5.9 mg/dL2.6-6.0 Anion GapDece2024 9:20amDece2024 9:20am14.7Basophils # (Auto)July 26, 2025 9:20amDece2024 9:20am0.0 10 3/uL0.0-0.1 Basophils (%) (Auto)May 26, 2025 6:54amOctober 2024 6:54am0.3 % 0.2-2.0Urine Total Protein 24 HourNov2024 7:90xh825.2 mg/24hrAbove high normal<=149.1Urine Protein/Creatinine RatioNove2024 4:10pm June 23, 2025 4:10pm0.09Estimated GFR ()June 23, 2025 4:19pmNov2024 4:19pm>60>=60 mL/min/1.73m 2Basophils (%) (Auto) June 23, 2025 4:19pmNov2024 4:19pm0.4 %0.2-2.0Prothrombin Time June 23, 2025 4:19pmNov2024 4:19pm9.8 sec9.0-11.6Urine BilirubinNovember 2024 10:35amNovember 2024 10:35amNEGATIVENEGATIVE Urine Protein/Creatinine RatioDece2024 4:25pmDecember 2024 4:25pm 0.14Prothrombin TimeDece2024 4:29pm9.9 sec9.0-11.6Estimated GFR ()July 12, 2025 4:29pmDecember 2024 4:29pm>60>=60 mL/min/1.73m 2Basophils (%) (Auto)July 12, 2025 4:29pmDecember 2024 4:29pm0.4 %0.2-2.0Urine Barbiturates Screence2024 9:00amDecember 2024 9:00amNEGATIVENEGATIVEUrine BilirubinDecember 2024 9:00am July 26, 2025 9:00amNEGATIVENEGATIVEUrine Protein/Creatinine RatioDecemb2024 9:00amDecember 2024 9:00am0.15Prothrombin TimeDecember 2024 9:20am9.8 sec9.0-11.6Albumin/Globulin RatioDecemb2024 9:20am July 26, 2025 9:20am0.7Basophils (%) (Auto)July 26, 2025 9:20am July 26, 2025 9:20am0.4 %0.2-2.0Eosinophils # (Auto)May 26, 2025 6:54amOctober 2024 6:54am0.1 10 3/uL0.0-0.7Urine Total VolumeNovember 2024 7:13va8312 mL/24hrUrine Random Total ProteinNovember 2024 4:10pmNovember 2024 4:10pm16.0 mg/dLAbove high normal<=11.9Estimated GFR (Non- AmericanNov2024 4:19pmNovember 2024 4:19pm>60>=60 mL/min/1.73m 2Eosinophils # (Auto)June 23, 2025 4:19pmNovember 2024 4:19pm0.1 10 3/uL0.0-0.7Urine Occult BloodNovember 2024 10:35amNovember 2024 10:35amNEGATIVENEGATIVEUrine Random Total ProteinDecember 2024 4:25pmDecember 2024 4:25pm18.7 mg/dLAbove high normal<=11.9Estimated GFR (Non- AmericanDecember 2024 4:29pmDecember 2024 4:29pm>60>=60 mL/min/1.73m 2Eosinophils # (Auto)July 12, 2025 4:29pmDecember 2024 4:29pm0.2 10 3/uL0.0-0.7Urine Benzodiazepines ScreenDecember 2024 9:00am July 26, 2025 9:00amNEGATIVENEGATIVEUrine Occult BloodDecember 2024 9:00amDecember 2024 9:00amNEGATIVENEGATIVEUrine Random Total Protein July 26, 2025 9:00amDecember 2024 9:00am12.3 mg/dLAbove high normal <=11.9AlbuminDecember 2024 9:20amDecember 2024 9:20am2.7 g/dLBelow low normal3.4-5.0Eosinophils # (Auto)July 26, 2025 9:20amDecember 2024 9:20am0.2 10 3/uL0.0-0.7Eosinophils (%) (Auto)May 26, 2025 6:54am May 26, 2025 6:54am1.0 %0.9-7.0Eosinophils (%) (Auto)June 23, 2025 4:19pmNovember 2024 4:19pm1.1 %0.9-7.0Urine AppearanceNovember 2024 10:35amNovember 2024 10:35amCLEARCLEAREosinophils (%) (Auto)July 12, 2025 4:29pmDecember 2024 4:29pm2.6 %0.9-7.0Urine BuprenorphineJuly 26, 2025 9:00amDecember 2024 9:00amNEGATIVENEGATIVEDRUG CLASS TEST SYSTEM CUT-OFF CONCENTRATIONS ARE ASFOLLOWS:AMP (Amphetamine): 500 ng/mLBAR (Barbiturates): 200 ng/mLBZO (Benzodiazepines): 150 ng/mLBUP (Buprenorphine): 10 ng/mLCOC (Cocaine): 150 ng/mLmAMP (Methamphetamine): 500 ng/mLMTD (Methadone): 200 ng/mLOPI (Opiates): 100 ng/mLOXY (Oxycodone): 100 ng/mLPCP (Phencyclidine): 25 ng/mLTHC (Cannabinoids): 50 ng/mLTCA (Trycyclic Antidepressants): 300 ng/mL Urine AppearanceJuly 26, 2025 9:00amDecember 2024 9:00amCLEARCLEAR Alkaline PhosphataseDece2024 9:20amDecember 2024 9:87vn362 U/L Above high dyyvas44-472Wbljdnyhhri (%) (Auto)July 26, 2025 9:20amDecember 2024 9:20am1.9 %0.9-7.0HematocritOctober 2024 6:54amOctober 2024 6:54am39.1 %36.0-48.0HematocritNov2024 4:19pmNovember 2024 4:19pm38.9 %36.0-48.0Urine ColorNovember 2024 10:35amNovember 2024 10:35amYELLOWYELLOWHematocritDece2024 4:29pmDecember 2024 4:29pm38.8 %36.0-48.0Urine Cocaine ScreenDece2024 9:00amDecember 2024 9:00amNEGATIVENEGATIVEUrine ColorDeceer 2024 9:00amDecember 2024 9:00amLT. YELLOWYELLOWAlanine Aminotransferase (ALT/SGPT)July 26, 2025 9:20amDecember 2024 9:20am17 U/P37-17WgipqpkjcnUpizdhvo 15th, 2025 9:20amDecember 2024 9:20am39.1 %36.0-48.0HemoglobinOctcarroll [facility] 2024 6:54amOctober 2024 6:54am13.6 g/dL12.0-16.0[facility]oglobinM[facility] 20[facility] 4:19pmNov2024 4:19pm13.6 g/dL12.0-16.0Urine Glucose (UA)July 04, 2025 10:35amNovember 2024 10:35amNEGATIVE mg/dLNEGATIVEHemoglobin July 12, 2025 4:29pmDecemb2024 4:29pm13.6 g/dL12.0-16.0Urine Methamphetamines ScreenDece2024 9:00amDecember 2024 9:00am NEGATIVENEGATIVEUrine Glucose (UA)July 26, 2025 9:00amDecember 2024 9:00amNEGATIVE mg/dLNEGATIVEAspartate Amino Transf (AST/SGOT)July 26, 2025 9:20amDecemb2024 9:20am14 U/LBelow low hxrmty75-01HlcjettjexSrxycrvt 15th, 2025 9:20amDecember 2024 9:20am13.8 g/dL12.0-16.0Immature Granulocyte # (Auto)May 26, 2025 6:54amOctober 2024 6:54am0.06 10 3/uLAbove high normal0.00-0.03Immature Granulocyte # (Auto)June 23, 2025 4:19pmNov2024 4:19pm0.08 10 3/uLAbove high normal0.00-0.03Urine KetonesNov2024 10:35amNovember 2024 10:35amTRACE mg/dLAbnormal (applies to non-numeric results)NEGATIVEImmature Granulocyte # (Auto)July 12, 2025 4:29pmDecemb2024 4:29pm0.03 10 3/uL0.00-0.03Urine Methadone Screen.July 26, 2025 9:00amDecember 2024 9:00amNEGATIVENEGATIVEUrine KetonesDece2024 9:00amDecember 2024 9:00amNEGATIVE mg/dL NEGATIVEBUN/Creatinine RatioJuly 26, 2025 9:20amDecember 2024 9:20am 8.9Immature Granulocyte # (Auto)July 26, 2025 9:20amDecember 2024 9:20am0.04 10 3/uLAbove high normal0.00-0.03Immature Granulocyte % (Auto)May 26, 2025 6:54amOctober 2024 6:54am0.6 %Above high normal0.0-0.5Immature Granulocyte % (Auto)June 23, 2025 4:19pmNov2024 4:19pm0.6 % Above high normal0.0-0.5Urine Leukocyte EsteraseNov2024 10:35am July 04, 2025 10:35amSMALLAbnormal (applies to non-numeric results) NEGATIVEImmature Granulocyte % (Auto)July 12, 2025 4:29pmDecember 2024 4:29pm0.3 %0.0-0.5Urine Opiates ScreenDece2024 9:00amDecember 2024 9:00amNEGATIVENEGATIVEUrine Leukocyte EsteraseDece2024 9:00am July 26, 2025 9:00amSMALLAbnormal (applies to non-numeric results)NEGATIVE Blood Urea NitrogenDece2024 9:20amDecember 2024 9:20am5.0 mg/dL Below low normal7.0-18.0Immature Granulocyte % (Auto)July 26, 2025 9:20am July 26, 2025 9:20am0.4 %0.0-0.5Lymphocytes # (Auto)May 26, 2025 6:54amOctober 2024 6:54am1.8 10 3/uL1.2-3.8Lymphocytes # (Auto)June 23, 2025 4:19pmNovember 2024 4:19pm2.2 10 3/uL1.2-3.8Urine Nitrite July 04, 2025 10:35amNovember 2024 10:35amNEGATIVENEGATIVE Lymphocytes # (Auto)July 12, 2025 4:29pmDecember 2024 4:29pm1.7 10 3/uL1.2-3.8Urine Oxycodone/Oxymorphone ScreenDece2024 9:00amDecember 2024 9:00amNEGATIVENEGATIVEUrine NitriteDece2024 9:00amDecember 2024 9:00amNEGATIVENEGATIVECalcium LevelDece2024 9:20amDecember 2024 9:20am8.8 mg/dL8.5-10.1Lymphocytes # (Auto)July 26, 2025 9:20am July 26, 2025 9:20am2.1 10 3/uL1.2-3.8Lymphocytes (%) (Auto)May 26, 2025 6:54amOctober 2024 6:54am18.4 %Below low fdhxsu61.5-60.0Lymphocytes (%) (Auto)June 23, 2025 4:19pmNov2024 4:19pm17.4 %Below low xtgysj86.5-60.0Urine pHNovember 2024 10:35amNovember 2024 10:35am6.0 5.0-9.0Lymphocytes (%) (Auto)July 12, 2025 4:29pmDecember 2024 4:29pm 19.1 %Below low hzgtqo23.5-60.0Urine Phencyclidine ScreenDecemb2024 9:00amDecember 2024 9:00amNEGATIVENEGATIVEUrine pHDecember 2024 9:00amDecember 2024 9:00am6.55.0-9.0Chloride LevelDecember 2024 9:20amDecember 2024 9:08oh628 mmol/T12-855Hrhcpbeqbgs (%) (Auto)July 26, 2025 9:20amDecember 2024 9:20am19.5 %Below low mpjtki78.5-60.0Mean Corpuscular HemoglobinOctober 2024 6:54amOctober 2024 6:54am30.0 pg 26.7-34.0Mean Corpuscular HemoglobinNov2024 4:19pmNovember 2024 4:19pm30.3 pg26.7-34.0Urine ProteinNov2024 10:35amNovember 2024 10:35amTRACE mg/dLNEG/TRACEMean Corpuscular HemoglobinDecember 2024 4:29pmDecember 2024 4:29pm30.4 pg26.7-34.0Urine Tricyclic AntidepressantsDecemb2024 9:00amDecember 2024 9:00amNEGATIVE NEGATIVEUrine ProteinDecember 2024 9:00amDecember 2024 9:00am NEGATIVE mg/dLNEG/TRACECarbon Dioxide LevelDece2024 9:20amDecember 2024 9:20am21.3 mmol/L21.0-32.0Mean Corpuscular HemoglobinDece2024 9:20amDecember 2024 9:20am29.8 pg26.7-34.0Mean Corpuscular Hemoglobin ConcentMay 26, 2025 6:54amOct2024 6:54am34.8 g/dL29.9-35.2Mean Corpuscular Hemoglobin ConcentNov2024 4:19pmNov2024 4:19pm35.0 g/dL29.9-35.2Urine Specific GravityNovember 2024 10:35am July 04, 2025 10:35am1.0201.005-1.025Mean Corpuscular Hemoglobin Concent July 12, 2025 4:29pmDece2024 4:29pm35.1 g/dL29.9-35.2Urine Marijuana (THC) ScreenDe2024 9:00amDecemb2024 9:00am NEGATIVENEGATIVEUrine Specific GravityDe2024 9:00amDecemb2024 9:00am1.0101.005-1.025CreatinineDece2024 9:20amDecemb2024 9:20am0.56 mg/dL0.55-1.02Mean Corpuscular Hemoglobin ConcentJuly 26, 2025 9:20amDecember 2024 9:20am35.3 g/dLAbove high .9-35.2Mean Corpuscular VolumeOct2024 6:54amOct2024 6:54am86.3 fL 81.0-99.0Mean Corpuscular VolumeNovember 2024 4:19pmNovember 2024 4:19pm86.6 fL81.0-99.0Urine UrobilinogenNovember 2024 10:35amNovember 2024 10:35am1.0 EU/dL0.2-1.0Mean Corpuscular VolumeDecember 2024 4:29pmDecember 2024 4:29pm86.6 fL81.0-99.0Urine UrobilinogenDecember 2024 9:00amDecember 2024 9:00am0.2 EU/dL0.2-1.0Estimated GFR ()July 26, 2025 9:20amDecember 2024 9:20am>60>=60 mL/min/1.73m 2Mean Corpuscular VolumeDecember 2024 9:20amDecember 2024 9:20am84.4 fL81.0-99.0Monocytes # (Auto)May 26, 2025 6:54amOctober 2024 6:54am0.5 10 3/uL0.3-0.8Monocytes # (Auto)June 23, 2025 4:19pm June 23, 2025 4:19pm0.8 10 3/uL0.3-0.8Monocytes # (Auto)July 12, 2025 4:29pmDecember 2024 4:29pm0.7 10 3/uL0.3-0.8Estimated GFR (Non- AmericanDeceer 2024 9:20amDecember 2024 9:20am>60>=60 mL/min/1.73m 2Monocytes # (Auto)July 26, 2025 9:20amDecember 2024 9:20am0.6 10 3/uL0.3-0.8Monocytes (%) (Auto)May 26, 2025 6:54amOctober 2024 6:54am5.1 %1.7-12.0Monocytes (%) (Auto)June 23, 2025 4:19pmNovember 2024 4:19pm6.0 %1.7-12.0Monocytes (%) (Auto)July 12, 2025 4:29pmDecember 2024 4:29pm7.4 %1.7-12.0GlobulinDecember 2024 9:20amDecember 2024 9:20am4.1 g/dLMonocytes (%) (Auto)July 26, 2025 9:20amDecember 2024 9:20am5.4 %1.7-12.0Mean Platelet VolumeOct2024 6:54amOctober 2024 6:54am10.5 fL9.5-13.5Mean Platelet VolumeJune 23, 2025 4:19pm June 23, 2025 4:19pm10.7 fL9.5-13.5Mean Platelet VolumeDecemb2024 4:29pmDecember 2024 4:29pm10.1 fL9.5-13.5Glucose LevelDece2024 9:20amDecember 2024 9:20am78 mg/sJ10-826Iver Platelet VolumeDecemb2024 9:20amDecember 2024 9:20am10.8 fL9.5-13.5Neutrophils # (Auto)May 26, 2025 6:54amOctober 2024 6:54am7.2 10 3/uLAbove high normal1.4-6.5 Neutrophils # (Auto)June 23, 2025 4:19pmNov2024 4:19pm9.4 10 3/uLAbove high normal1.4-6.5Neutrophils # (Auto)July 12, 2025 4:29pm July 12, 2025 4:29pm6.3 10 3/uL1.4-6.5Potassium Levelce2024 9:20amDecember 2024 9:20am4.0 mmol/L3.5-5.1Neutrophils # (Auto)July 26, 2025 9:20amDecember 2024 9:20am7.6 10 3/uLAbove high normal1.4-6.5 Neutrophils (%) (Auto)May 26, 2025 6:54amOctober 2024 6:54am74.6 % 43.0-75.0Neutrophils (%) (Auto)June 23, 2025 4:19pmNov2024 4:19pm74.5 %43.0-75.0Neutrophils (%) (Auto)July 12, 2025 4:29pmDecember 2024 4:29pm70.2 %43.0-75.0Sodium LevelDecemb2024 9:20amDecember 2024 9:28ze424 mmol/P397-472Ezfttqdqvhs (%) (Auto)July 26, 2025 9:20amDecember 2024 9:20am72.4 %43.0-75.0Platelet CountOctober 2024 6:54amOctober 2024 6:67cw473 10 3/iC203-710Hpytsvlz CountNov2024 4:pmNov2024 4:91fu090 10 3/uU301-434Xorexuxb CountDecember 2024 4:29pmDecember 2024 4:41lf700 10 3/yQ942-876Titvi Bilirubin July 26, 2025 9:20amDecember 2024 9:20am0.3 mg/dL0.2-1.0Platelet CountDecember 2024 9:20amDecember 2024 9:05zr441 10 3/zI612-028Tqr Blood CountOctober 2024 6:54amOctober 2024 6:54am4.53 10 6/uL 4.20-5.40Red Blood CountNovember 2024 4:19pmNov2024 4:19pm4.49 10 6/uL4.20-5.40Red Blood CountDecemb2024 4:29pmDecember 2024 4:29pm4.48 10 6/uL4.20-5.40Total ProteinDecember 2024 9:20amDecember 2024 9:20am6.8 g/dL6.4-8.2Red Blood CountDecemb2024 9:20amDecember 2024 9:20am4.63 10 6/uL4.20-5.40Red Cell Distribution WidthOctober 2024 6:54amOctober 2024 6:54am12.6 %11.0-15.0Red Cell Distribution Width June 23, 2025 4:19pmNov2024 4:19pm12.8 %11.0-15.0Red Cell Distribution WidthDece2024 4:29pmDecemb2024 4:29pm12.6 % 11.0-15.0Red Cell Distribution WidthDecemb2024 9:20amDecember 2024 9:20am12.6 %11.0-15.0Corrected White [facility]Oct[facility] 2024 6:54am May 26, 2025 6:54am9.7 10 3/uL4.0-11.0Corrected White Blood CountNov2024 4:19pmNov2024 4:19pm12.6 10 3/uLAbove high normal4.0-11.0 Corrected White Blood CountDece2024 4:29pmDecemb2024 4:29pm8.9 10 3/uL4.0-11.0Corrected White Blood CountDecemb2024 9:20amDecember 2024 9:20am10.6 10 3/uL4.0-11.0 Advance Directives Advance Directive Response Recorded Date/ Time Advance Directives No November 24, 2 024 8:39am Insurance Providers Guarantor Yenifer Hicks Address [address] [facility] [address] Info.Home Phone: Payer Group Member ID Coverage Type Subscriber Relationship to Subscriber Effective Date Expiration Date MMO Id: [id number] S Jones Id: [id number] [address] [facility] [address] Home Phone: Email: [email or web address] NATHANAEL [id number] Wampler Id: [id number] [address] [facility] [address] [place] [facility] [place]: [id number] S Jones Id: [id number] [address] [facility] [address] Home Phone: Email: [email or web address] Encounter Location(s) Arrival/Admit Date Discharge/Departure Date Discharge/Departure Disposition Provider(s) Non-patient / Non-visit -[facility] O ctober 2024 7:54am ALESSANDRA Glover-patient / Bou-psjyd-[facility] June 23, 2025 4:19pmCorejosé Christian-patient / Wjp-qmgey-[facility] [place] 2024 10:35amGeo Howard-patient / Brv-snpdg-Rwiao [facility] CoDejohn 2024 4:29pmCorejosé Christian- patient / Nku-jukdo-[facility]ado [facility] CoDe[facility] 2024 9:00amCorejosé Canchola Plan of Treatment Future Tests Future scheduled test information is unavailable Pending Tests Test Name Ordered Date Scheduled Date Urine Culture July 26, 2025 9:00am Future Visits Future appointment information is unavailable Future Procedures Procedure Name Ordered Date Scheduled Date Urine Culture July 26, 2025 12:57pm Dece mber 2024 9:00am Future Medications Future medication information is unavailable Patient Instructions Patient instructions are unavailable
--- OUTSIDE RECORDS SUMMARY | 2025-08-03 08:25 | XMS_ITS | Clinical Summary ---
Author Organization [facility] Address [address], [address] [place] [address] Care Team Providers Care Shock Absorber Installer Name Role Phone Anenl Yuen [facility] Primary Care Provider [phone] Social History Tobacco UseTypesPacks/DayYears UsedDateSmoking Tobacco: Never Assessed CommentsUnknownSex and Gender InformationValueDate RecordedSex Assigned at Not on fileLegal YvxUhkksg72/01/2023 10:58 AM EDTGender IdentityNot on file Sexual OrientationNot on file Plan of Treatment Health MaintenanceDue DateLast DoneCommentsDTaP/Tdap/Td vaccine (1 - Tdap) 2018Flu vaccine (#1)5COVID-19 Vaccine ( - season) 2025Polio vaccineAged OutNo longer eligible based on patient's age to complete this topic Insurance * Guarantor: Yenifer ViverosAccount TypeRelation to PatientDate of BirthPhone Billing AddressPersonal/RftmqhXzve43/09/2000 [facility] [place] [address] Care Teams Team MemberRelationshipSpecialtyStart DateEnd Date Annel Yuen, WILL CALL ORDER CLERK - [employer] [address] [place] [address] PCP - GeneralNurse Practitioner01/10/23
--- OUTSIDE RECORDS SUMMARY | 2025-08-03 08:25 | XMS_ITS | Encounter Summary ---
Author Organization [facility] Address [address] [place] [address] Care Team Providers Care Founder Ceo & President Name Role Phone Michelle Pabon MD Primary Care Provider [phone] Encounter Details DateTypeDepartmentCare Team (Latest Contact Info)Vbhbvyqwjyn04/15/2025External Result Encounter [facility] External Department Unsolicited Abad Canchola DO [address] [place], [facility] Social History Tobacco UseTypesPacks/DayYears UsedDateSmoking Tobacco: NeverAlcohol UseStandard Drinks/WeekCommentsNever0 (1 standard drink = 0.6 oz pure alcohol) Estimated Date of HybhpzabIsnnebeqAet00/15/2026ased on last menstrual period of 11/19/2024 (Approximate)Sex and Gender InformationValueDate RecordedSex Assigned at BirthNot on fileLegal ZifEvaynm58/15/2023 10:09 PM EDTGender IdentityNot on fileSexual OrientationNot on filedocumented as of this encounter Plan of Treatment DateTypeDepartmentCare Team (Latest Contact Info)Vaowfxuazil89/29/2025 9:20 AM ESTPostpartum Visit ENRIQUE CHINCHILLA [address] [place] [address] Shagufta Perkins PA [address] [place], [place] [address] 09/13/2025 10:30 AM ESTPostpartum Visit ENRIQUE [place] O[facility] [address] [place] [address] Shagufta Perkins PA [address] [place], [place] [id number] documented as of this encounter Procedures Procedure NamePriorityDate/TimeAssociated DiagnosisCommentsCULTURE, URINE, HTKBWMBRmvoixn76/15/2025 9:00 AM EST documented in this encounter Results * Urine culture (07/26/2025 9:00 AM EST)ComponentValueRef RangeTest Method Analysis TimePerformed AtPathologist SignatureURINE CULTURE RESULTS ([facility] [place] 50,000 colonies/ml Mixed Bacterial Skin Contaminants 2 Days07/28/2025 10:15 AM [facility] CtrSpecimen (Source)Anatomical Location / LateralityCollection Method / VolumeCollection TimeReceived TimeUrineUrine specimen obtained by clean catch procedure / Wenmqse8107/26/2025 9:00 AM EST 07/26/2025 12:57 PM ESTComment:Clean-Voided Midstream Narrative [facility] - 07/28/2025 10:15 AM EST Diagnosis: HYPERTENSION DURING IN THIRD TRIMESTER Comment: Authorizing ProviderResult TypeResult StatusCorey Jesika DOLAB MICROBIOLOGY - GENERAL ORDERABLESFinal ResultPerforming OrganizationAddressCity/State/ZIP Code Phone Number [facility] [address] [place] [address], [facility] [address] [place] [address] documented in this encounter Visit Diagnoses Not on filedocumented in this encounter Care Teams Team MemberRelationshipSpecialtyStart DateEnd Date Michelle Pabon MD [address] [place] [address] PCP - GeneralFamily Medicine03/25/24documented as of this encounter
--- OUTSIDE RECORDS SUMMARY | 2025-08-03 08:25 | XMS_ITS | Encounter Summary ---
Author Organization [facility] Address [address] [place] [address] Care Team Providers Care Scrape Gatherer Name Role Phone Michelle Pabon MD Primary Care Provider [phone] Encounter Details DateTypeDepartmentCare Team (Latest Contact Info)Bzlmgvcwqhd87/17/2025linisync Result Encounter [facility] External Department Unsolicited Abad Canchola DO [address] [place], [facility]11 Social History Tobacco UseTypesPacks/DayYears UsedDateSmoking Tobacco: NeverAlcohol UseStandard Drinks/WeekCommentsNever0 (1 standard drink = 0.6 oz pure alcohol) Estimated Date of LqnyrgjoJpsxufyrCpu92/15/2026ased on last menstrual period of 11/19/2024 (Approximate)Sex and Gender InformationValueDate RecordedSex Assigned at BirthNot on fileLegal OykJogqrg66/15/2023 10:09 PM EDTGender IdentityNot on fileSexual OrientationNot on filedocumented as of this encounter Plan of Treatment DateTypeDepartmentCare Team (Latest Contact Info)Xghitcfhyau15/29/2025 9:20 AM ESTPostpartum Visit ENRIQUE CHINCHILLA [address] [place] [phone] Shagufta Perkins PA [address] [place], [place] [id number] 09/13/2025 10:30 AM ESTPostpartum Visit [facility] [place] [facility]IN[facility]ILLA [address] [place] [address] Shagufta Perkins PA [address] [place] [address] documented as of this encounter Procedures Procedure NamePriorityDate/TimeAssociated DiagnosisCommentsALL CBC WITH AUTO TSDNIcqhkmy40/17/2025 5:42 AM EST documented in this encounter Results * (ABNORMAL) ALL CBC WITH AUTO DIFF (07/28/2025 5:42 AM EST)ComponentValueRef RangeTest MethodAnalysis TimePerformed AtPathologist SignatureTBH WBC14.1(H) 4.0 - 11.0 10 3/uLTBHTBH RBC4.474.20 - 5.40 10 6/uLTBHTBH HGB13.612.0 - 16.0 g/dLTBHTBH HCT38.136.0 - 48.0 %TBHTBH MCV85.281.0 - 99.0 fLTBHTBH MCH30.426.7 - 34.0 pgTBHTBH MCHC35.7(H)29.9 - 35.2 g/dLTBHTBH RDW12.711.0 - 15.0 %TBHTBH UUN829097 - 450 10 3/uLTBHTBH MPV10.79.5 - 13.5 fLTBHNEUTROPHILS PERCENT AUTO 76.5(H)43.0 - 75.0 %TBHLYMPHOCYTES PERCENT AUTO14.3(L)20.5 - 60.0 %TBH MONOCYTES PERCENT AUTO7.21.7 - 12.0 %TBHTBH EO %1.10.9 - 7.0 %TBHBASOPHILS PERCENT AUTO0.40.2 - 2.0 %TBHIMMATURE GRANULOCYTES PCT AUTO0.50.0 - 0.5 %TBH NEUTROPHILS ABSOLUTE AUTO10.8(H)1.4 - 6.5 10 3/uLTBHLYMPHOCYTES ABSOLUTE AUTO 2.01.2 - 3.8 10 3/uLTBHMONOCYTES ABSOLUTE AUTO1.0(H)0.3 - 0.8 10 3/uLTBHTBH EO #0.20.0 - 0.7 10 3/uLTBHBASOPHILS ABSOLUTE AUTO0.10.0 - 0.1 10 3/uLTBHIMMATURE GRANULOCYTES ABS AUTO0.07(H)0.00 - 0.03 10 3/uLTBHSpecimen (Source)Anatomical Location / LateralityCollection Method / VolumeCollection TimeReceived Time 07/28/2025 5:42 AM EST07/28/2025 5:49 AM EST Narrative [facility] - 07/28/2025 6:02 AM EST Authorizing ProviderResult TypeResult StatusCorey Jesika DOCLINISYNCFinal Result Performing OrganizationAddressCity/State/ZIP CodePhone Number [facility] documented in this encounter Visit Diagnoses Not on filedocumented in this encounter Care Teams Team MemberRelationshipSpecialtyStart DateEnd Date Michelle Pabon MD [address] [place] [address] PCP - GeneralFamily Medicine03/25/24documented as of this encounter
--- OUTSIDE RECORDS SUMMARY | 2025-08-03 08:25 | XMS_ITS | Encounter Summary ---
Author Organization [facility] Address [address] [place] [address] Care Team Providers Care Er Tech Name Role Phone Michelle Pabon MD Primary Care Provider [phone] Encounter Details DateTypeDepartmentCare Team (Latest Contact Info)Sseljkzgwaf05/08/2025linisync Result Encounter [facility] External Department Unsolicited Patricia Roy, NELLY [address] [place] [address] Social History Tobacco UseTypesPacks/DayYears UsedDateSmoking Tobacco: NeverAlcohol UseStandard Drinks/WeekCommentsNever0 (1 standard drink = 0.6 oz pure alcohol) Estimated Date of HctbkihuLjfbwetaDzj38/15/2026ased on last menstrual period of 11/19/2024 (Approximate)Sex and Gender InformationValueDate RecordedSex Assigned at BirthNot on fileLegal ZrfDtkwdr14/15/2023 10:09 PM EDTGender IdentityNot on fileSexual OrientationNot on filedocumented as of this encounter Plan of Treatment DateTypeDepartmentCare Team (Latest Contact Info)Jszpgeigcga28/29/2025 9:20 AM ESTPostpartum Visit [facility]OM[facility] CHINCHILLA [address] [place] [address] Shagufta Perkins PA [address] [place] [address] 09/13/2025 10:30 AM ESTPostpartum Visit [facility] [place] [facility] [address] [place] [address] Shagufta Perkins PA [address] [place] [address] documented as of this encounter Procedures Procedure NamePriorityDate/TimeAssociated DiagnosisCommentsUS OB BPP W NON-OMNVSA2507/19/2025 7:02 PM EST documented in this encounter Results * US OB BPP W NON-STRESS (07/19/2025 7:02 PM EST)Anatomical Region LateralityModalityOtherSpecimen (Source)Anatomical Location / Laterality Collection Method / VolumeCollection TimeReceived Time07/19/2025 7:02 PM EST Narrative 07/19/2025 7:04 PM EST [facility] ?[address] ? [place] [address] ? Ultrasound Report ? Signed ? Patient: JARETH,YENIFER S ?MR#: [id number] ?? : 2000 ?Acct:[id number] ?? Age/Sex: 24 / F ?ADM Date: 07/19/25 ?? Loc: US ? Attending Dr: Patricia Roy ? Ordering Physician: Patricia Roy ?? Date of Service: 07/19/25 ?? Procedure(s): US OB BPP w non-stress ?? Accession Number(s): [id number] ? cc: Michelle Pabon M.D.; Patricia Roy ? [facility] ? [address] ? [place] [address] ? Patient Name: ?? YENIFER TEMPLETON ? MRN: [id number] ? date: 2000 ?Sex: F ?? Assigned Patient Location: US ?? Current Patient Location: ? Accession/Order Number: [id number] ?? Exam Date: 07/19/2025 ??16:43 ?Report Date: 07/19/2025 ??19:02 ? At the request of: ?? PATRICIA ??KIRILL ? Procedure: ??US OB BPP w non-stress ? Ultrasound biophysical profile ? INDICATION: Hypertension during ? COMPARISON: 07/12/2025 ? FINDINGS IMPRESSION: Cephalic position. ?? heart rate 123 beats per ?? minutes. ??[place]: 10.6 cm. ??Biophysical profile score 03/19. ? Impression dictated by: Duncan Jones M.D. ??07/19/2025 7:02 PM ? Dictation Location: RADIO-PC-29 ? Electronically authenticated by: [id number] ??Y ?? Date: 07/19/2025 ??19:02 ? Dictated By: ?Duncan Jones M.D. ? Signed By: ?07/19/254 ? DD/ 1902 ? TD/TT: ? Dross Puller: Procedure Note Radiology, Radiologist, MD - 07/19/2025 [place] [address] Ultrasound Report Signed Patient: YENIFER TEMPLETON SMR#: [id number] : 2000Acct:[id number] Age/Sex: 24 / FADM Date: 07/19/25 Loc: US Attending Dr: Patricia Roy Ordering Physician: Patricia Roy Date of Service: 07/19/25 Procedure(s): US OB BPP w non-stress Accession Number(s): [id number] cc: Michelle Pabon M.D.; Patricia Roy The [address] [address] Patient Name: YENIFER TEMPLETON MRN: [id number] date: 2000 Sex: F Assigned Patient Location: US Current Patient Location: Accession/Order Number: [id number] Exam Date: 07/19/2025 16:43 Report Date: 07/19/2025 19:02 At the request of: PATRICIA ROY Procedure: US OB BPP w non-stress Ultrasound biophysical profile INDICATION: Hypertension during COMPARISON: 07/12/2025 FINDINGS IMPRESSION: Cephalic position. heart rate 123 beatsper minutes. [place]: 10.6 cm. Biophysical profile score 8/8. Impression dictated by: Duncan Jones M.D. 07/19/2025 7:02 PM Dictation Location: [place] [address] Electronically authenticated by: [id number] Y Date: 9:02 Dictated By: Duncan Jones M.D. Signed By:07/19/251903 DD/ 01 TD/TT: Dross Puller: Authorizing ProviderResult TypeResult StatusRinkugangajefferson Kirill NPCLINISYNC IMAGING Final Result documented in this encounter Visit Diagnoses Not on filedocumented in this encounter Care Teams Team MemberRelationshipSpecialtyStart DateEnd Date Michelle Pabon MD [address] [place] [address] PCP - GeneralFamily Medicine03/25/24documented as of this encounter
--- OUTSIDE RECORDS SUMMARY | 2025-08-03 08:25 | XMS_ITS | Encounter Summary ---
Author Organization [facility] Address [address] [place] [address] Care Team Providers Care Critical Systems Technician Name Role Phone Michelle Pabon MD Primary Care Provider [phone] Encounter Details DateTypeDepartmentCare Team (Latest Contact Info)Gckcctxsruv84/15/2025linisync Result Encounter [facility] External Department Unsolicited Abad Canchola DO [address] [place], [facility] Social History Tobacco UseTypesPacks/DayYears UsedDateSmoking Tobacco: NeverAlcohol UseStandard Drinks/WeekCommentsNever0 (1 standard drink = 0.6 oz pure alcohol) Estimated Date of TygjudgmNnzonokcWwu94/15/2026ased on last menstrual period of 11/19/2024 (Approximate)Sex and Gender InformationValueDate RecordedSex Assigned at BirthNot on fileLegal SryYqkyod43/15/2023 10:09 PM EDTGender IdentityNot on fileSexual OrientationNot on filedocumented as of this encounter Plan of Treatment DateTypeDepartmentCare Team (Latest Contact Info)Jkgqobxlxwh82/29/2025 9:20 AM ESTPostpartum Visit ENRIQUE CHINCHILLA [address] [place] [phone] Shagufta Perkins PA [address] [place], [place] [id number] 09/13/2025 10:30 AM ESTPostpartum Visit [facility] Logan CHINCHILLA [address] [place] [place] [address] Shagufta Perkins PA [address] [place] [address] documented as of this encounter Procedures Procedure NamePriorityDate/TimeAssociated DiagnosisCommentsSRMCOH PROTHROMBIN TIME INR W/O HDVZUivdgwq68/15/2025 9:20 AM EST MHPT QUOSGNGFZKNftjjww99/15/2025 9:20 AM EST [facility] CMP (CMP) (FOR REMOTE [facility] USE)Iqtdauc3107/26/2025 9:20 AM EST [facility] UIJEYfmyyfj93/15/2025 9:20 AM EST ALL URIC KPKGQhxydcq70/15/2025 9:20 AM EST ALL TYPE AND HYHYBDGmmybyr17/15/2025 9:20 AM EST ALL IXBClabppt44/15/2025 9:20 AM EST ALL CBC WITH AUTO XMQXXqdtmjw81/15/2025 9:20 AM EST URINE CULTURE - APZYRadchlm38/15/2025 9:00 AM EST [facility] URINE T PROTEIN CREAT NPQPUZdoflfo06/15/2025 9:00 AM EST [facility] UA (CLEAN/CATCH) SHELL REPRINT OPERATOR/MICRO IF IND.Vyihtmy3607/26/2025 9:00 AM EST [facility] DRUG SCREEN RAPID (URINE)Bmuoepo4507/26/2025 9:00 AM EST documented in this encounter Results * ALL TYPE AND SCREEN (07/26/2025 9:20 AM EST)ComponentValueRef RangeTest Method Analysis TimePerformed AtPathologist SignatureBLOOD TYPEO PositiveTBHANTIBODY SCREENNEGATIVETBHSpecimen (Source)Anatomical Location / LateralityCollection Method / VolumeCollection TimeReceived Time07/26/2025 9:20 AM EST07/26/2025 9:40 AM EST Narrative CLINISYNC - 07/26/2025 10:43 AM EST [facility] , ?? Authorizing ProviderResult TypeResult StatusCorey Jesika DOCLINISYNCFinal Result Performing OrganizationAddressCity/State/ZIP CodePhone Number [facility] * (ABNORMAL) MHPT FIBRINOGEN (07/26/2025 9:20 AM EST)ComponentValueRef RangeTest MethodAnalysis TimePerformed AtPathologist DlirqslvtAXLXWNUHZA945(H)200 - 400 mg/dLTBHSpecimen (Source)Anatomical Location / LateralityCollection Method / VolumeCollection TimeReceived Time07/26/2025 9:20 AM EST07/26/2025 9:40 AM EST Narrative CLINISYNC - 07/26/2025 10:40 AM EST Authorizing ProviderResult TypeResult StatusCorey Jesika DOCLINISYNCFinal Result Performing OrganizationAddressCity/State/ZIP CodePhone Number [facility] * [facility] APTT (07/26/2025 9:20 AM EST)ComponentValueRef RangeTest MethodAnalysis TimePerformed AtPathologist SignaturePARTIAL THROMBOPLASTIN TIME25.722.3 - 36.2 secTBHSpecimen (Source)Anatomical Location / LateralityCollection Method / VolumeCollection TimeReceived Time07/26/2025 9:20 AM EST07/26/2025 9:40 AM EST Narrative CLINISYNC - 07/26/2025 10:40 AM EST Authorizing ProviderResult TypeResult StatusCorey Jesika DOCLINISYNCFinal Result Performing OrganizationAddressCity/State/ZIP CodePhone Number [facility] * SRMCOH PROTHROMBIN TIME INR W/O COUM (07/26/2025 9:20 AM EST)ComponentValueRef RangeTest MethodAnalysis TimePerformed AtPathologist SignaturePROTHROMBIN TIME 9.89.0 - 11.6 secTBHTBH INR0.93TBHComment: DESIRED INR: 2.0-3.0 CONDITIONS NOT LISTED BELOW 2.5-3.5 FOR PROSTHETIC HEART VALVE REPLACEMENT 2.5-3.5 RECURRENT THROMBOSIS Specimen (Source)Anatomical Location / LateralityCollection Method / Volume Collection TimeReceived Time07/26/2025 9:20 AM EST07/26/2025 9:40 AM EST Narrative CLINISYDE - 07/26/2025 10:40 AM EST Authorizing ProviderResult TypeResult StatusCorey Jesika DOCLINISYNCFinal Result Performing OrganizationAddressCity/State/ZIP CodePhone Number [facility] * ALL LDH (07/26/2025 9:20 AM EST)ComponentValueRef RangeTest MethodAnalysis TimePerformed AtPathologist SignatureLACTATE NPAMTPQCLMLBS95772 - 234 U/LTBH Specimen (Source)Anatomical Location / LateralityCollection Method / Volume Collection TimeReceived Time07/26/2025 9:20 AM EST07/26/2025 9:40 AM EST Narrative CLINISYDE - 07/26/2025 10:08 AM EST Authorizing ProviderResult TypeResult StatusCorey Jesika DOCLINISYNCFinal Result Performing OrganizationAddS[facility] Hlthty/State/ZIP CodePhone Number [facility] * ALL URIC ACID (07/26/2025 9:20 AM EST)ComponentValueRef RangeTest Method Analysis TimePerformed AtPathologist SignatureURIC ACID5.92.6 - 6.0 mg/dLTBH Specimen (Source)Anatomical Location / LateralityCollection Method / Volume Collection TimeReceived Time07/26/2025 9:20 AM EST07/26/2025 9:40 AM EST Narrative CLINISYNC - 07/26/2025 10:08 AM EST Authorizing ProviderResult TypeResult StatusCorey Jesika DOCLINISYNCFinal Result Performing OrganizationAdd[facility]/State/ZIP CodePhone Number [facility] * (ABNORMAL) CCF CMP (CMP) (FOR REMOTE C USE) (07/26/2025 9:20 AM EST) ComponentValueRef RangeTest MethodAnalysis TimePerformed AtPathologist YshtlkfhmTQRKYT498058 - 145 mmol/LTBHPOTASSIUM4.03.5 - 5.1 mmol/LTBHCHLORIDE 30932 - 107 mmol/LTBHCARBON ABBXPWF41.321.0 - 32.0 mmol/LTBHANION GAP14.7TBH WYHPLLR5477 - 106 mg/dLTBHBLOOD UREA NITROGEN5.0(L)7.0 - 18.0 mg/dLTBH CREATININE0.560.55 - 1.02 mg/dLTBHTBH EGFR-AF SUDANESE>60>=60 mL/min/1.73m 2 TBHTBH EGFR-NON AF SUDANESE>60>=60 mL/min/1.73m 2TBHBUN CREATININE RATIO8.9TBH CALCIUM8.88.5 - 10.1 mg/dLTBHBILIRUBIN TOTAL0.30.2 - 1.0 mg/dLTBHASPARTATE AMINO IESEMYUCSRB04(L)15 - 37 U/LTBHALANINE CAZOPXTYYQGBMEUY6782 - 59 U/LTBH ALKALINE GJRCNSNXDTK917(H)46 - 116 U/LTBHTOTAL PROTEIN6.86.4 - 8.2 g/dLTBH ALBUMIN LEVEL2.7(L)3.4 - 5.0 g/dLTBHGLOBULIN4.1g/dLTBHALBUMIN GLOBULIN RATIO 0.7TBHSpecimen (Source)Anatomical Location / LateralityCollection Method / VolumeCollection TimeReceived Time07/26/2025 9:20 AM EST07/26/2025 9:40 AM EST Narrative CLINISYNC - 07/26/2025 10:08 AM EST Authorizing ProviderResult TypeResult StatusCorey Jesika DOCLINISYNCFinal Result Performing OrganizationAddressCity/State/ZIP CodePhone Number [facility] * (ABNORMAL) ALL CBC WITH AUTO DIFF (07/26/2025 9:20 AM EST)ComponentValueRef RangeTest MethodAnalysis TimePerformed AtPathologist SignatureTBH WBC10.64.0 - 11.0 10 3/uLTBHTBH RBC4.634.20 - 5.40 10 6/uLTBHTBH HGB13.812.0 - 16.0 g/dLTBH TBH HCT39.136.0 - 48.0 %TBHTBH MCV84.481.0 - 99.0 fLTBHTBH MCH29.826.7 - 34.0 pgTBHTBH MCHC35.3(H)29.9 - 35.2 g/dLTBHTBH RDW12.611.0 - 15.0 %TBHTBH SHJ204 150 - 450 10 3/uLTBHTBH MPV10.89.5 - 13.5 fLTBHNEUTROPHILS PERCENT AUTO72.4 43.0 - 75.0 %TBHLYMPHOCYTES PERCENT AUTO19.5(L)20.5 - 60.0 %TBHMONOCYTES PERCENT AUTO5.41.7 - 12.0 %TBHTBH EO %1.90.9 - 7.0 %TBHBASOPHILS PERCENT AUTO 0.40.2 - 2.0 %TBHIMMATURE GRANULOCYTES PCT AUTO0.40.0 - 0.5 %TBHNEUTROPHILS ABSOLUTE AUTO7.6(H)1.4 - 6.5 10 3/uLTBHLYMPHOCYTES ABSOLUTE AUTO2.11.2 - 3.8 10 3/uLTBHMONOCYTES ABSOLUTE AUTO0.60.3 - 0.8 10 3/uLTBHTBH EO #0.20.0 - 0.7 10 3/uLTBHBASOPHILS ABSOLUTE AUTO0.00.0 - 0.1 10 3/uLTBHIMMATURE GRANULOCYTES ABS AUTO0.04(H)0.00 - 0.03 10 3/uLTBHSpecimen (Source)Anatomical Location / LateralityCollection Method / VolumeCollection TimeReceived Time07/26/2025 9:20 AM EST07/26/2025 9:40 AM EST Narrative CLINISYNC - 07/26/2025 9:58 AM EST Authorizing ProviderResult TypeResult StatusCorey Jesika DOCLINISYNCFinal Result Performing OrganizationAddressCity/State/ZIP CodePhone Number [facility] * [place] [facility]07/26/2025 9:00 AM EST)ComponentValueRef RangeTest MethodAnalysis TimePerformed AtPathologist SignatureURINE CULTURE - FR ??Urine Culture - [facility] RESULT^[facility] RESULT TBH[facility] SEE SCANNED REPORT, NORMAL^SEE SCANNED REPORT, NORMALTBHSpecimen (Source)Anatomical Location / LateralityCollection Method / VolumeCollection TimeReceived Time07/26/2025 9:00 AM EST07/26/2025 9:41 AM EST Narrative CLINISYNC - 07/28/2025 3:28 PM EST Authorizing ProviderResult TypeResult StatusCorey Jesika DOLAB BLOOD ORDERABLES Final ResultPerforming OrganizationAddressCity/State/ZIP CodePhone Number [facility] * [facility] DRUG SCREEN RAPID (URINE) (07/26/2025 9:00 AM EST)ComponentValueRef Range Test MethodAnalysis TimePerformed AtPathologist SignatureCANNABINOID SCREEN URINENEGATIVENEGATIVETBHPHENCYCLIDINE SCREEN URINENEGATIVENEGATIVETBHCOCAINE SCREEN URINENEGATIVENEGATIVETBHMETHAMPHETAMINES SCREEN URINENEGATIVENEGATIVE TBHOPIATE SCREEN URINENEGATIVENEGATIVETBHAMPHETAMINE SCREEN URINENEGATIVE NEGATIVETBHBENZODIAZEPINES SCREEN URINENEGATIVENEGATIVETBHTRICYCLIC ANTIDEPRESSANT URINENEGATIVENEGATIVETBHMETHADONE SCREEN URINENEGATIVENEGATIVE TBHBARBITURATES SCREEN URINENEGATIVENEGATIVETBHOXYCODONE SCREEN URINENEGATIVE NEGATIVETBHBUPRENORPHINE SCREEN URINENEGATIVENEGATIVETBHComment: DRUG CLASS TEST SYSTEM CUT-OFF CONCENTRATIONS ARE FOLLOWS: AMP (Amphetamine): 500 ng/mL BAR (Barbiturates): 200 ng/mL BZO (Benzodiazepines): 150 ng/mL BUP (Buprenorphine): 10 ng/mL TRINI (Cocaine): 150 ng/mL mAMP (Methamphetamine): 500 ng/mL MTD (Methadone): 200 ng/mL OPI (Opiates): 100 ng/mL OXY (Oxycodone): 100 ng/mL PCP (Phencyclidine): 25 ng/mL THC (Cannabinoids): 50 ng/mL TCA (Trycyclic Antidepressants): 300 ng/mL Specimen (Source)Anatomical Location / LateralityCollection Method / Volume Collection TimeReceived Time07/26/2025 9:00 AM EST07/26/2025 1:53 PM EST Narrative CLINISYDE - 07/26/2025 2:09 PM EST Authorizing ProviderResult TypeResult StatusCorey Jesika DOCLINISYNCFinal Result Performing OrganizationAddressCity/State/ZIP CodePhone Number [facility] * (ABNORMAL) [facility] UA (CLEAN/CATCH) SHELL REPRINT OPERATOR/MICRO IF IND. (07/26/2025 9:00 AM EST) ComponentValueRef RangeTest MethodAnalysis TimePerformed AtPathologist SignatureCOLOR URINELT. YELLOWYELLOWTBHCLARITY URINECLEARCLEARTBHSPECIFIC GRAVITY URINE1.0101.005 - 1.025TBHPH URINE6.55.0 - 9.0TBHPROTEIN URINENEGATIVE NEG/TRACE mg/dLTBHGLUCOSE URINE UANEGATIVENEGATIVE mg/dLTBHBILIRUBIN URINE NEGATIVENEGATIVETBHKETONES URINENEGATIVENEGATIVE mg/dLTBHBLOOD URINENEGATIVE NEGATIVETBHNITRITE URINENEGATIVENEGATIVETBHUROBILINOGEN URINE0.20.2 - 1.0 EU/dLTBHLEUKOCYTE ESTERASE URINESMALL(A)NEGATIVETBHURINE MICROSCOPIC INDICATED YESTBHSpecimen (Source)Anatomical Location / LateralityCollection Method / VolumeCollection TimeReceived Time07/26/2025 9:00 AM EST07/26/2025 9:41 AM EST Narrative CLINISYNC - 07/26/2025 9:57 AM EST Authorizing ProviderResult TypeResult StatusCorey Jesika DOCLINISYNCFinal Result Performing OrganizationAddressCity/State/ZIP CodePhone Number CLINISYNC [facility] * (ABNORMAL) [facility] URINE T PROTEIN CREAT RATIO (07/26/2025 9:00 AM EST)Component ValueRef RangeTest MethodAnalysis TimePerformed AtPathologist SignatureTOTAL PROTEIN URINE EONMGS36.3(H)<=11.9 mg/dLTBHCREATININE URINE XADGUY23.6220.00 - 300.00 mg/dLTBHPROTEIN CREATININE RATIO URINE0.15TBHSpecimen (Source) Anatomical Location / LateralityCollection Method / VolumeCollection Time Received Time07/26/2025 9:00 AM EST07/26/2025 9:44 AM EST Narrative CLINISYNC - 07/26/2025 9:54 AM EST Authorizing ProviderResult TypeResult StatusCorey Jesika DOCLINISYNCFinal Result Performing OrganizationAddressCity/State/ZIP CodePhone Number CLINISYNC [facility] documented in this encounter Visit Diagnoses Not on filedocumented in this encounter Care Teams Team MemberRelationshipSpecialtyStart DateEnd Date Michelle Pabon MD [address] [place] [address] PCP - GeneralFacoly [facility]03/25/24documented as of this encounter
--- OUTSIDE RECORDS SUMMARY | 2025-08-03 08:25 | XMS_ITS | Encounter Summary ---
Author Organization [facility] Address [address] [place] [address] Care Team Providers Care Bar Machine Operator Multiple Spindle Name Role Phone Michelle Pabon MD Primary Care Provider [phone] Encounter Details DateTypeDepartmentCare Team (Latest Contact Info)Gvucgcgzajv24/09/2025amboo flowsheet NOMFatimah CHINCHILLA [address] [place] [address] Patricia Roy, NEEDLE PUNCH MACHINE OPERATOR HELPER [address] [place] [address] Social History Tobacco UseTypesPacks/DayYears UsedDateSmoking Tobacco: NeverAlcohol UseStandard Drinks/WeekCommentsNever0 (1 standard drink = 0.6 oz pure alcohol) Estimated Date of GsqrxggnApqfmnopUiy01/15/2026Based on last menstrual period of 11/19/2024 (Approximate)Sex and Gender InformationValueDate RecordedSex Assigned at BirthNot on fileLegal PhuObozfu32/15/2023 10:09 PM EDTGender IdentityNot on fileSexual OrientationNot on filedocumented as of this encounter Plan of Treatment DateTypeDepartmentCare Team (Latest Contact Info)Gjqhrvrczcd34/29/2025 9:20 AM ESTPostpartum Visit NOMFatimah CHINCHILLA [address] [place] [address] Shagufta Perkins, PA [address] [place] [address] 09/13/2025 10:30 AM ESTPostpartum Visit [facility] Logan CHINCHILLA [address] [place] [address] Shagufta Perkins PA [address] [place], [place] [id number] documented as of this encounter Visit Diagnoses Not on filedocumented in this encounter Care Teams Team MemberRelationshipSpecialtyStart DateEnd Date Michelle Pabon MD [address] [place] [phone] PCP - GeneralFamily Medicine03/25/24documented as of this encounter
--- OUTSIDE RECORDS SUMMARY | 2025-08-03 08:26 | XMS_ITS | Clinical Summary ---
Author Organization [facility] Address [address] [place] [address] Care Team Providers Care Accident Report Clerk Name Role Phone Michelle Pabon MD Primary Care Provider [phone] Allergies No known active allergies Medications MedicationSigDispense QuantityRefillsLast FilledStart DateEnd DateStatus 27-1 MG tablet Take 1 tablet by mouth DailyActive labetalol (Normodyne) 200 MG tablet Take 1 tablet (200 mg) by mouth in the morning and 1 tablet (200 mg) in the evening and 1 tablet (200 mg) before bedtime. 90 tablet 5Active labetalol (Normodyne) 200 MG tablet Take 1 tablet by mouth in the morning and 1 tablet before bedtime.06/28/2025 07/20/2025Discontinued(Dose adjustment) Encounters DateTypeDepartmentCare SnboKjzkihhblel27/17/2025linisync Result Encounter [facility] External Department Unsolicited Abad Canchola, DO 07/26/2025External Result Encounter [facility] External Department Unsolicited Abad Canchola, DO 07/26/2025linisync Result Encounter [facility] External Department Unsolicited Abad Canchola, DO 07/20/2025 8:50 AM ESTRoutine [facility] [address] [place] [address] [place] [phone] Patricia Roy, NELLY 34 weeks gestation of ([facility]); Third trimester ([facility]); Hypertension during in third trimester, unspecified hypertension in type ([facility])07/20/2025amboo flowsheet [facility] [place] [facility] [address] [place] [phone] Patricia Roy, NELLY 07/19/2025linisync Result Encounter [facility]S External Department Unsolicited Patricia Roy, NELLY 07/12/2025linisync Result Encounter NOMS External Department Unsolicited Patricia Roy, NELLY 07/12/2025linisync Result Encounter [facility]S External Department Unsolicited Abad Canchola, DO 07/09/2025linisync Result Encounter NOMS External Department Unsolicited Patricia Roy, COAL OR ORE CONTROLLER 07/06/2025 10:40 AM ESTRoutine [facility] [address] [place] [place] [address] Abad Canchola, DO Third trimester ([facility]); 32 weeks gestation of ([facility])07/06/2025amboo flowsheet [facility] [address] [place] [place] [phone] Abad Canchola, DO 06/28/2025 3:30 PM ESTRoutine [facility] [place] [address] [place] [phone] Patricia Roy, COAL OR ORE CONTROLLER Third trimester ([facility]); 31 weeks gestation of ([facility]); Hypertension during in third trimester, unspecified hypertension in type ([facility])06/28/2025linisync Result Encounter [facility]OM[facility] External Department Unsolicited Patricia Roy, NELLY 06/28/2025ambaishwarya flowsheet [facility] [address] [place] [place] [address] Patricia Roy, NELLY 06/23/2025linisync Result Encounter [facility] External Department Unsolicited Abad Canchola, DO 06/21/2025 3:40 PM ESTRoutine [facility] [place] [address] Abad Canchola DO 28 weeks gestation of ([facility]); Third trimester ([facility]); induced hypertension, antepartum ([facility])06/21/2025 3:00 PM EST Ancillary Procedure [facility] [address] [place] [place] [address] size inconsistent with dates ([facility])06/08/2025 8:30 AM EDTRoutine [facility] [address] [place] [address] Shagufta Perkins PA size inconsistent with dates ([facility]) (Primary Dx); 28 weeks gestation of ([facility]); Second trimester ([facility])06/08/2025amboo flowsheet [facility] [place] [facility] [address] [place] [place] [address] Shagufta Perkins PA 05/12/2025 8:30 AM EDTRoutine [facility] [address] [place] [address] Patricia Roy NP 24 weeks gestation of ([facility]); Second trimester ([facility]); Diabetes mellitus ihtmemaqu29/01/2025amboo flowsheet [facility] [address] [place] [address] Patricia Roy NP 05/10/2025Telephone [facility] [address] [place] [address] Nighat Moyer MA from Last 3 Months Family History Medical HistoryRelationNameCommentsHyperlipidemiaFatherHypertensionFather RelationNameStatusCommentsFatherAliveMotherAlive Social History Tobacco UseTypesPacks/DayYears UsedDateSmoking Tobacco: Never Tobacco Cessation:Counseling Given: Not Answered Alcohol UseStandard Drinks/WeekCommentsNever0 (1 standard drink = 0.6 oz pure alcohol)Estimated Date of AgoljtdfXamkwlchRdf31/15/2026Based on last menstrual period of 11/19/2024 (Approximate)Sex and Gender InformationValueDate RecordedSex Assigned at BirthNot on fileLegal AhrSdhaud19/15/2023 10:09 PM EDT Gender IdentityNot on fileSexual OrientationNot on file Last Filed Vital Signs Vital SignReadingTime TakenCommentsBlood Jeyfdgbj581/80109/20/2024 8:50 AM EST Pulse--Temperature--Respiratory Rate--Oxygen Saturation--Inhaled Oxygen Concentration--Xbgfkd210 kg (225 lb 12.8 oz)07/20/2025 8:50 AM AKRQqpnik539.6 cm (5' 6 )09/24/2019 12:00 PM ESTBody Mass Index36.45009/24/2019 12:00 PM EST Plan of Treatment DateTypeDepartmentCare Team (Latest Contact Info)Vdcjssfrmnn97/29/2025 9:20 AM ESTPostpartum Visit ENRIQUE CHINCHILLA [address] [place] [address] [place] [phone] Shagufta Perkins PA [address] [place], [place] [phone] 09/13/2025 10:30 AM ESTPostpartum Visit ENRIQUE CHINCHILLA [address] [place] [address] [place] [phone] Shagufta Perkins PA [address] [place], [place] [phone] Health MaintenanceDue DateLast DoneCommentsCOVID-19 Vaccine ( season) 502/12/2020, 08/19/2020Influenza Vaccine (#1)512/, 05/14/2022, 06/03/2020Pneumococcal Vaccine: Pediatrics (0 to 5 Years) and At- Risk Patients (6 to 64 Years)Aged OutNo longer eligible based on patient's age to complete this topic Procedures Procedure NamePriorityDate/TimeAssociated DiagnosisCommentsALL CBC WITH AUTO YXMINbmlybo08/17/2025 5:42 AM EST ALL TYPE AND FXHEPHRhpqkxh83/15/2025 9:20 AM EST MHPT YMWGQWGMZMMnoyquw77/15/2025 9:20 AM EST CCF DEIBHcnndhq78/15/2025 9:20 AM EST [facility] PROTHROMBIN TIME INR W/O LXNIHbsyerq06/15/2025 9:20 AM EST ALL ABMCstvizf76/15/2025 9:20 AM EST ALL URIC OBLFVkyviqf96/15/2025 9:20 AM EST CCF CMP (CMP) (FOR REMOTE [facility] USE)Nyvumkf1407/26/2025 9:20 AM EST ALL CBC WITH AUTO GNGRFjnoabz34/15/2025 9:20 AM EST URINE CULTURE - ABIPWhchebb50/15/2025 9:00 AM EST TBH DRUG SCREEN RAPID (URINE)Ypcezzm5707/26/2025 9:00 AM EST TB[facility] UA (CLEAN/CATCH) PATTERN CLERK/MICRO IF IND.Tunxoft1107/26/2025 9:00 AM EST [facility] URINE T PROTEIN CREAT WIBTIMdhlwcv40/15/2025 9:00 AM EST CULTURE, URINE, WWSBQGFLcvuyod63/15/2025 9:00 AM EST POCT URINALYSIS RWUHJGSGWlzqobe34/09/2025 8:56 AM EST 34 weeks gestation of ([facility]) Third trimester ([facility]) US OB BPP W NON-RAODVP0507/19/2025 7:02 PM EST US OB BPP W NON-GZGRCO4807/12/2025 5:17 PM EST MHPT RAOXWHYPAWWoulywj44/01/2025 4:29 PM EST CCF OULIPsmgobz97/01/2025 4:29 PM EST [facility] PROTHROMBIN TIME INR W/O UGAHIzyqrkz63/01/2025 4:29 PM EST CCF UNEVgsxxiq63/01/2025 4:29 PM EST CCF QWRYvrwmdh81/01/2025 4:29 PM EST ALL URIC VWPBVybouhq62/01/2025 4:29 PM EST TBH HKHGASFEGCQmopmyq49/01/2025 4:29 PM EST ALL WNZUnkzpdp51/01/2025 4:29 PM EST ALL CBC WITH AUTO CZUHXpfjcbi42/01/2025 4:29 PM EST TBH URINE T PROTEIN CREAT CYOMFOzzahry00/01/2025 4:25 PM EST US OB BPP W NON-ZHGCLM9407/09/2025 3:47 PM EST POCT URINALYSIS XVIHLHAOOostyqo93/25/2025 11:00 AM EST Third trimester ([facility]) US OB BPP W NON-EJRZZT4706/28/2025 5:27 PM EST POCT URINALYSIS NLNULAFHLjnfmpi24/17/2025 4:05 PM EST Third trimester ([facility]) ALL SAEDrijokh02/12/2025 4:19 PM EST CCF PCEVobzsha50/12/2025 4:19 PM EST ALL URIC EIMZZcovmoh48/12/2025 4:19 PM EST TBH FXRHQMFENARjkearz68/12/2025 4:19 PM EST ALL ZMBQrsdcjp21/12/2025 4:19 PM EST ALL CBC WITH AUTO LEJKAjhmppz80/12/2025 4:19 PM EST CCF XDWIUwrewka85/12/2025 4:19 PM EST [facility] PROTHROMBIN TIME INR W/O VNFNLeqqliw04/12/2025 4:19 PM EST TBH URINE T PROTEIN CREAT GZGZKQiqluiy71/12/2025 4:10 PM EST TBH TOTAL PROTEIN 24 HOUR KQEHJRuqdinh65/12/2025 7:45 AM EST POCT URINALYSIS DLOXJZHEGxpdgfv66/10/2025 3:47 PM EST 28 weeks gestation of ([facility]) Third trimester ([facility]) US OB FOLLOW UP TRANSABDOMINAL NFKSZIFWHgyyahy17/10/2025 3:24 PM EST size inconsistent with dates ([facility]) POCT URINALYSIS OFEXDMAEUrbhfey08/28/2025 8:51 AM EDT 28 weeks gestation of ([facility]) Second trimester ([facility]) POCT URINALYSIS UPYKVYLMCunevae77/01/2025 8:42 AM EDT 24 weeks gestation of ([facility]) from Last 3 Months Results * (ABNORMAL) ALL CBC WITH AUTO DIFF (07/28/2025 5:42 AM EST) Only the most recent of4 resultswithin the time period is included. ComponentValueRef RangeTest MethodAnalysis TimePerformed AtPathologist Signature TBH WBC14.1(H)4.0 - 11.0 10 3/uLTBHTBH RBC4.474.20 - 5.40 10 6/uLTBHTBH HGB13.6 12.0 - 16.0 g/dLTBHTBH HCT38.136.0 - 48.0 %TBHTBH MCV85.281.0 - 99.0 fLTBHTBH MCH30.426.7 - 34.0 pgTBHTBH MCHC35.7(H)29.9 - 35.2 g/dLTBHTBH RDW12.711.0 - 15.0 %TBHTBH GLF963730 - 450 10 3/uLTBHTBH MPV10.79.5 - 13.5 fLTBHNEUTROPHILS PERCENT AUTO76.5(H)43.0 - 75.0 %TBHLYMPHOCYTES PERCENT AUTO14.3(L)20.5 - 60.0 %TBH MONOCYTES PERCENT AUTO7.21.7 - 12.0 %TBHTBH EO %1.10.9 - 7.0 %TBHBASOPHILS PERCENT AUTO0.40.2 - 2.0 %TBHIMMATURE GRANULOCYTES PCT AUTO0.50.0 - 0.5 %TBH NEUTROPHILS ABSOLUTE AUTO10.8(H)1.4 - 6.5 10 3/uLTBHLYMPHOCYTES ABSOLUTE AUTO2.0 1.2 - 3.8 10 3/uLTBHMONOCYTES ABSOLUTE AUTO1.0(H)0.3 - 0.8 10 3/uLTBHTBH EO #0.2 0.0 - 0.7 10 3/uLTBHBASOPHILS ABSOLUTE AUTO0.10.0 - 0.1 10 3/uLTBHIMMATURE GRANULOCYTES ABS AUTO0.07(H)0.00 - 0.03 10 3/uLTBHSpecimen (Source)Anatomical Location / LateralityCollection Method / VolumeCollection TimeReceived Time 07/28/2025 5:42 AM EST07/28/2025 5:49 AM EST Narrative [facility]NC - 07/28/2025 6:02 AM EST Authorizing ProviderResult TypeResult StatusCorey Jesika DOCLINISYNCFinal Result Performing OrganizationAddressCity/State/ZIP CodePhone Number [facility] * SRMCOH PROTHROMBIN TIME INR W/O COUM (07/26/2025 9:20 AM EST) Only the most recent of3 resultswithin the time period is included. ComponentValueRef RangeTest MethodAnalysis TimePerformed AtPathologist Signature PROTHROMBIN TIME9.89.0 - 11.6 secTBHTBH INR0.93TBHComment: DESIRED INR: 2.0-3.0 CONDITIONS NOT LISTED BELOW 2.5-3.5 FOR PROSTHETIC HEART VALVE REPLACEMENT 2.5-3.5 RECURRENT THROMBOSIS Specimen (Source)Anatomical Location / LateralityCollection Method / Volume Collection TimeReceived Time07/26/2025 9:20 AM EST07/26/2025 9:40 AM EST Narrative [facility]NC - 07/26/2025 10:40 AM EST Authorizing ProviderResult TypeResult StatusCorey Jesika DOCLINISYNCFinal Result Performing OrganizationAddressCity/State/ZIP CodePhone Number CLINISYDC TB * (ABNORMAL) MHPT FIBRINOGEN (07/26/2025 9:20 AM EST) Only the most recent of2 resultswithin the time period is included. ComponentValueRef RangeTest MethodAnalysis TimePerformed AtPathologist Signature RDJZVAMCCP451(H)200 - 400 mg/dLTBHSpecimen (Source)Anatomical Location / LateralityCollection Method / VolumeCollection TimeReceived Time07/26/2025 9:20 AM EST07/26/2025 9:40 AM EST Narrative [facility]IN[facility]NC - 07/26/2025 10:40 AM EST Authorizing ProviderResult TypeResult StatusCorey Jesika DOCLINISYNCFinal Result Performing OrganizationAddressty/State/ZIP CodePhone Number [facility] * (ABNORMAL) CCF CMP (CMP) (FOR REMOTE C USE) (07/26/2025 9:20 AM EST) ComponentValueRef RangeTest MethodAnalysis TimePerformed AtPathologist TtgssrdwdIBDGAI386625 - 145 mmol/LTBHPOTASSIUM4.03.5 - 5.1 mmol/LTBHCHLORIDE 08211 - 107 mmol/LTBHCARBON KEYIELP27.321.0 - 32.0 mmol/LTBHANION GAP14.7TBH SQEDISJ3350 - 106 mg/dLTBHBLOOD UREA NITROGEN5.0(L)7.0 - 18.0 mg/dLTBH CREATININE0.560.55 - 1.02 mg/dLTBHTBH EGFR-AF GERMAN>60>=60 mL/min/1.73m 2 TBHTBH EGFR-NON AF GERMAN>60>=60 mL/min/1.73m 2TBHBUN CREATININE RATIO8.9TBH CALCIUM8.88.5 - 10.1 mg/dLTBHBILIRUBIN TOTAL0.30.2 - 1.0 mg/dLTBHASPARTATE AMINO TEJAJFYSNAG67(L)15 - 37 U/LTBHALANINE ENWMZLDPMZCWUKDZ7000 - 59 U/LTBH ALKALINE ETQLCMXWLIV396(H)46 - 116 U/LTBHTOTAL PROTEIN6.86.4 - 8.2 g/dLTBH ALBUMIN LEVEL2.7(L)3.4 - 5.0 g/dLTBHGLOBULIN4.1g/dLTBHALBUMIN GLOBULIN RATIO 0.7TBHSpecimen (Source)Anatomical Location / LateralityCollection Method / VolumeCollection TimeReceived Time07/26/2025 9:20 AM EST07/26/2025 9:40 AM EST Narrative CLINISYNC - 07/26/2025 10:08 AM EST Authorizing ProviderResult TypeResult StatusCorey Jesika DOCLINISYNCFinal Result Performing OrganizationAddressCity/State/ZIP CodePhone Number [facility] * CCF APTT (07/26/2025 9:20 AM EST) Only the most recent of3 resultswithin the time period is included. ComponentValueRef RangeTest MethodAnalysis TimePerformed AtPathologist Signature PARTIAL THROMBOPLASTIN TIME25.722.3 - 36.2 secTBHSpecimen (Source)Anatomical Location / LateralityCollection Method / VolumeCollection TimeReceived Time 07/26/2025 9:20 AM EST07/26/2025 9:40 AM EST Narrative CLINISYNC - 07/26/2025 10:40 AM EST Authorizing ProviderResult TypeResult StatusCorey Jesika DOCLINISYNCFinal Result Performing OrganizationAddressCity/State/ZIP CodePhone Number [facility] TB * ALL URIC ACID (07/26/2025 9:20 AM EST) Only the most recent of3 resultswithin the time period is included. ComponentValueRef RangeTest MethodAnalysis TimePerformed AtPathologist Signature URIC ACID5.92.6 - 6.0 mg/dLTBHSpecimen (Source)Anatomical Location / Laterality Collection Method / VolumeCollection TimeReceived Time07/26/2025 9:20 AM EST 07/26/2025 9:40 AM EST Narrative CLINISYNC - 07/26/2025 10:08 AM EST Authorizing ProviderResult TypeResult StatusCorey Jesika DOCLINISYNCFinal Result Performing OrganizationAddressCity/State/ZIP CodePhone Number [facility] TB * ALL TYPE AND SCREEN (07/26/2025 9:20 AM EST)ComponentValueRef RangeTest Method Analysis TimePerformed AtPathologist SignatureBLOOD TYPEO PositiveTBHANTIBODY SCREENNEGATIVETBHSpecimen (Source)Anatomical Location / LateralityCollection Method / VolumeCollection TimeReceived Time07/26/2025 9:20 AM EST07/26/2025 9:40 AM EST Narrative CLINISYNC - 07/26/2025 10:43 AM EST [facility] , ?? Authorizing ProviderResult TypeResult StatusCorey Jesika DOCLINISYNCFinal Result Performing OrganizationAddressCity/State/ZIP CodePhone Number [facility] TB * ALL LDH (07/26/2025 9:20 AM EST) Only the most recent of2 resultswithin the time period is included. ComponentValueRef RangeTest MethodAnalysis TimePerformed AtPathologist Signature LACTATE ESOWNPLSZSSVY30773 - 234 U/LTBHSpecimen (Source)Anatomical Location / LateralityCollection Method / VolumeCollection TimeReceived Time07/26/2025 9:20 AM EST07/26/2025 9:40 AM EST Narrative CLINISYNC - 07/26/2025 10:08 AM EST Authorizing ProviderResult TypeResult StatusCorey Jesika DOCLINISYNCFinal Result Performing OrganizationAddressCity/State/ZIP CodePhone Number [facility] * URINE CULTURE - [facility] (07/26/2025 9:00 AM EST)ComponentValueRef RangeTest MethodAnalysis TimePerformed AtPathologist SignatureURINE CULTURE - [facility] ??Urine Culture - [facility] RESULT TBHURINE CULTURE - [facility] SCANNED REPORT, NORMAL^SEE SCANNED REPORT, NORMALTBHSpecimen (Source)Anatomical Location / LateralityCollection Method / VolumeCollection TimeReceived Time07/26/2025 9:00 AM EST07/26/2025 9:41 AM EST Narrative CLINISYNC - 07/28/2025 3:28 PM EST Authorizing ProviderResult TypeResult StatusCorey Jesika DOLAB BLOOD ORDERABLES Final ResultPerforming OrganizationAddressCity/State/ZIP CodePhone Number CLIN[facility]YDC TB * (ABNORMAL) TBH URINE T PROTEIN CREAT RATIO (07/26/2025 9:00 AM EST) Only the most recent of3 resultswithin the time period is included. ComponentValueRef RangeTest MethodAnalysis TimePerformed AtPathologist Signature TOTAL PROTEIN URINE IIASZS47.3(H)<=11.9 mg/dLTBHCREATININE URINE KGKUMJ05.62 20.00 - 300.00 mg/dLTBHPROTEIN CREATININE RATIO URINE0.15TBHSpecimen (Source) Anatomical Location / LateralityCollection Method / VolumeCollection Time Received Time07/26/2025 9:00 AM EST07/26/2025 9:44 AM EST Narrative CLINISYNC - 07/26/2025 9:54 AM EST Authorizing ProviderResult TypeResult StatusCorey Jesika DOCLINISYNCFinal Result Performing OrganizationAddressCity/State/ZIP CodePhone Number [facility]NC TB * (ABNORMAL) TBH UA (CLEAN/CATCH) PATTERN CLERK/MICRO IF IND. (07/26/2025 9:00 AM EST) ComponentValueRef [...] DOCLINISYNCFinal Result Performing OrganizationAddressCity/State/ZIP CodePhone Number [facility] * TBH DRUG SCREEN RAPID (URINE) (07/26/2025 [...] 9:00 AM EST07/26/2025 1:53 PM EST Narrative CLINISYNC - 07/26/2025 2:09 PM EST Authorizing ProviderResult TypeResult StatusCorejosé Canchola DOCLINISYNCFinal Result Performing OrganizationAddressCity/State/ZIP CodePhone Number [facility] * Urine culture (07/26/2025 9:00 AM EST)ComponentValueRef RangeTest Method Analysis TimePerformed AtPathologist SignatureURINE CULTURE RESULTS (FR) 50,000 colonies/ml Mixed Bacterial Skin Contaminants 2 Days07/28/2025 10:15 AM [facility] CtrSpecimen (Source)Anatomical Location / LateralityCollection Method / VolumeCollection TimeReceived TimeUrineUrine specimen obtained by clean catch procedure / Dcxhtnv1707/26/2025 9:00 AM EST 07/26/2025 12:57 PM ESTComment:[facility] - 07/28/2025 10:15 AM EST Diagnosis: HYPERTENSION DURING IN THIRD TRIMESTER Comment: Authorizing ProviderResult TypeResult StatusAbad JAMES MICROBIOLOGY - GENERAL ORDERABLESFinal ResultPerforming OrganizationAddressCity/State/ZIP Code Phone Number [facility] [address] [id number], [facility] [address] [place] [address] * (ABNORMAL) POCT urinalysis dipstick manually resulted (07/20/2025 8:56 AM EST) Only the most recent of6 resultswithin the time period is included. ComponentValueRef RangeTest MethodAnalysis TimePerformed AtPathologist Signature Color, UAYellowClarity, UAClearGlucose, UANegativeNegative - 1999(110) ++++ mg/dLBilirubin, UANegativeNegative - 4(70) +++ mg/dLKetones, UANegativeNegative - 160(16) ++++ mg/dLSpec Grav, UA1.0201 - 1.03Blood, UANegativeNegative - 50 Randall/mcLpH, UA6.05 - 9Protein, UAPositiveNegative - 1999(20) ++++ mg/dL Urobilinogen, UA1.00.2 - 12 mg/dLLeukocytes, UAPositiveNegative - 500+++ Johnson/mcL Nitrite, UANegativeNegative - PositiveSpecimen (Source)Anatomical Location / LateralityCollection Method / VolumeCollection TimeReceived WmrgNphoi23/09/2025 8:56 AM EST Narrative Authorizing ProviderResult TypeResult StatusPatricia Roy NPPOINT OF CARE TEST ENTER/EDIT ORDERABLESFinal Result * US OB BPP W NON-STRESS (07/19/2025 7:02 PM EST) Only the most recent of4 resultswithin the time period is included. Anatomical RegionLateralityModalityOtherSpecimen (Source)Anatomical Location / LateralityCollection Method / VolumeCollection TimeReceived Time07/19/2025 7:02 PM EST Narrative 07/19/2025 7:04 PM EST [facility] ?[address] ? [place] [address] ? Ultrasound Report ? Signed ? Patient: YENIFER TEMPLETON S ?MR#: [id number] ?? : 2000 ?Acct:[id number] ?? Age/Sex: 24 / F ?ADM Date: 07/19/25 ?? Loc: US ? Attending Dr: Patricia Roy ? Ordering Physician: Patricia Roy ?? Date of Service: 07/19/25 ?? Procedure(s): US OB BPP w non-stress ?? Accession Number(s): [id number] ? cc: Michelle Pabon M.D.; Patricia Roy ? [facility] ? [address] ? [place] [address] ? Patient Name: ?? YENIFER TEMPLETON ? MRN: [facility]:[id number] ? date: 2000 ?Sex: F ?? Assigned Patient Location: US ?? Current Patient Location: ? Accession/Order Number: [id number] ?? Exam Date: 07/19/2025 ??16:43 ?Report Date: [...] Dictation Location: RADIO-PC-29 ? Electronically authenticated by: [id number] ??Y ?? Date: 07/19/2025 ??19:02 ? Dictated By: ?Duncan Jones M.D. ? Signed By: ?07/19/ 1904 ? DD/ 1902 ? TD/TT: ? Perinatal Educator: Procedure Note Radiology, Radiologist, MD - 07/19/2025 [place] [address] Ultrasound Report Signed Patient: YENIFER TEMPLETON SMR#: [id number] : 2000Acct:[id number] Age/Sex: 24 / FADM Date: 07/19/25 Loc: US Attending Dr: Patricia Roy Ordering Physician: Patricia Roy Date of Service: 07/19/25 Procedure(s): US OB BPP w non-stress Accession Number(s): [id number] cc: Michelle Pabon M.D.; Patricia Roy [place] [address] Patient Name: YENIFER TEMPLETON MRN: [facility]:[id number] date: 2000 Sex: F Assigned Patient Location: Current Patient Location: Accession/Order Number: [id number] Exam Date: 07/19/2025 16:43 Report Date: 07/19/2025 19:02 At the request of: PATRICIA ROY Procedure: US OB BPP w non-stress Ultrasound biophysical profile INDICATION: Hypertension during COMPARISON: 07/12/2025 FINDINGS IMPRESSION: Cephalic position. heart rate 123 beatsper minutes. VALENTINA: 10.6 cm. Biophysical profile score 8/8. Impression dictated by: Duncan Jones M.D. 07/19/2025 7:02 PM Dictation Location: [place] [address] Electronically authenticated by: [id number] Y Date: 9:02 Dictated By: Duncan Jones M.D. Signed By:07/19/251903 DD/ 01 TD/TT: Perinatal Educator: Authorizing ProviderResult TypeResult StatusRinkukylah Cosmeerly NPCLINISYNC IMAGING Final Result * TBH CREATININE (07/12/2025 4:29 PM EST) Only the most recent of2 resultswithin the time period is included. ComponentValueRef RangeTest MethodAnalysis TimePerformed AtPathologist Signature CREATININE0.560.55 - 1.02 mg/dLTBHTBH EGFR-AF GERMAN>60>=60 mL/min/1.73m 2TBH TBH EGFR-NON AF GERMAN>60>=60 mL/min/1.73m 2TBHSpecimen (Source)Anatomical Location / LateralityCollection Method / VolumeCollection TimeReceived Time 07/12/2025 4:29 PM EST07/12/2025 4:32 PM EST Narrative CLINISYNC - 07/12/2025 4:58 PM EST Authorizing ProviderResult TypeResult StatusCorey Jesika DOCLINISYNCFinal Result Performing OrganizationAddressCity/State/ZIP CodePhone Number CLINISYNC TB * (ABNORMAL) CCF AST (07/12/2025 4:29 PM EST) Only the most recent of2 resultswithin the time period is included. ComponentValueRef RangeTest MethodAnalysis TimePerformed AtPathologist Signature ASPARTATE AMINO QJBFSFNNOXD37(L)15 - 37 U/LTBHSpecimen (Source)Anatomical Location / LateralityCollection Method / VolumeCollection TimeReceived Time 07/12/2025 4:29 PM EST07/12/2025 4:32 PM EST Narrative CLINISYNC - 07/12/2025 4:58 PM EST Authorizing ProviderResult TypeResult StatusCorey Jesika DOCLINISYNCFinal Result Performing OrganizationAddressCity/State/ZIP CodePhone Number CLINISYNC [facility] * CCF ALT (07/12/2025 4:29 PM EST)ComponentValueRef RangeTest MethodAnalysis TimePerformed AtPathologist SignatureALANINE QCZGJQARQHQUALRW6642 - 59 U/LTBH Specimen (Source)Anatomical Location / LateralityCollection Method / Volume Collection TimeReceived Time07/12/2025 4:29 PM EST07/12/2025 4:32 PM EST Narrative CLINISYNC - 07/12/2025 4:58 PM EST Authorizing ProviderResult TypeResult StatusCorey Jesika DOCLINISYNCFinal Result Performing OrganizationAddressCity/State/ZIP CodePhone Number [facility] * (ABNORMAL) ALL BUN (07/12/2025 4:29 PM [...] RangeTest MethodAnalysis TimePerformed AtPathologist SignatureTOTAL PROTEIN URINE JWXYOL89.2(H)<=11.9 mg/dLTBHTOTAL VOLUME 24 HOUR URINE1,780 mL/24hrTBHTBH TOTAL PROTEIN 24 HOUR PIBWF739.2(H)<=149.1 mg/24hrTBHSpecimen (Source)Anatomical Location / LateralityCollection Method / VolumeCollection TimeReceived Time06/23/2025 7:45 AM EST06/23/2025 4:21 PM EST Narrative CLINISYNC - 06/24/2025 12:46 PM EST Authorizing ProviderResult TypeResult StatusCorey Jesika DOCLINISYNCFinal Result Performing OrganizationAddressCity/State/ZIP CodePhone Number [place] * US OB follow up transabdominal approach [...] StatusPatricia Roy NPIMG OB US PROCEDURESFinal Result from Last 3 Months Insurance * Guarantor: Yenifer [place] TypeRelation to PatientDate of BirthPhone Billing AddressPersonal/VnajbdOxbu78/09/2001 [facility] [address] [place] [address] MemberSubscriberPlan / Payer (Effective 2020-Present)Name:Yenifer Templeton Relation to Subscriber:ChildName:KEERTHI ANTONIO Date of :1970 Address: [address] [place] [address]. [address] [place] [address] Payer ID:Not on file Type:Not on file Address: [address] [place] [address] * Guarantor: Yenifer Templeton TypeRelation to PatientDate of BirthPhone Billing AddressPersonal/JlauxmMejy35/09/2001 [address] [id number] Care Teams Team MemberRelationshipSpecialtyStart DateEnd Date Michelle Pabon MD [address] [place] [address] PCP - GeneralFamily Medicine03/25/24
[2025-08-03 17:25] VITALS: BP 154/105; PULSE 69; TEMP 36.9; O2SAT 97
--- NOTE | 2025-08-03 17:31 | PC.NURSE ---
Yenifer and Alivia arrive for follow up. States is not making milk, pumps 15 ml at the most combined. Is continuing to pump for supply. Feeds baby similac sensitive as well as any breast milk obtained. Yenifer presents with elevated blood pressure today. Currently taking Labetalol 200mg Twice daily. Dr Canchola notified of BP and orders for pt to take Labetalol 300mg 3 times daily starting with next dose. Otherwise assessment WNL. Baby Alivia with VSS and assessment WNL. Father bottle feeds 1 oz and infant tolerates feeding well. Parents states doing well and no need for further support. Will call as needs
== END 2025-08-03 17:31 | disposition home or self-care (01) ==
LOC: FBCO 08:23
PROVIDERS: PCP Family Medicine; Visit Provider Obstetrics & Gynecology
DX: Z39.1 Encounter for care and examination of lactating mother (principal)